=== PATIENT | male | born 1945 | race Caucasian/White ===

== ENCOUNTER 2018-04-05 21:04 | Inpatient (IN) ==
[2018-04-05] MEDS ORDERED: Vancomycin Inj 1,000 MG in Sodium Chlor 0.9% Inj 250 ML IV.SIG ONE (21:23)
[2018-04-05] MEDS ORDERED: Piperacil/Tazo 4.5 GM Premix 4.5 GM/100 ML BAG IV.SIG SCH (21:30)
--- NOTE | 2018-04-05 21:49 | ED ---
HPI General Chief Complaint: Shortness of Breath/Dyspnea Stated Complaint: SOB Time Seen by Provider: 04/05/18 21:07 Source: patient Mode of arrival: EMS Limitations: no limitations History of Present Illness 72-year-old male came to the emergency room for shortness of breath brought by EMS. Patient appears to be in moderate distress. He can get one word out per breath. He tells me that he has been having the symptoms for past 2-3 days. He has progressive shortness of breath, fever with chills and sweating, cough. Today his oxygen saturation was 90% on room air when he reviewed patient does not require oxygen at home. He does have history of COPD but does not have medications. He takes blood pressure medications. He is a smoker. Upon asking he said he was having some chest pain on the left side. His blood pressure was 85/65. No radiation of the pain. No aggravating or relieving symptoms identified for the pain. I also noticed that patient had some swelling on the left side of his face. He says that he got "bitten by a spider ". Related Data Home Medications Medication Instructions Recorded Confirmed lisinopril 40 mg PO DAILY 04/05/18 04/05/18 metoprolol tartrate 150 mg PO BID 04/05/18 04/05/18 Allergies Allergy/AdvReac Type Severity Reaction Status Date / Time bee venom protein (honey bee) Allergy Unknown Edema Verified 04/05/18 21:12 vancomycin Allergy Anaphylaxis Verified 04/05/18 23:33 Review of Systems ROS: all other systems reviewed are negative [facility] Medical History Medical History COPD (chronic obstructive pulmonary disease) (Acute) History of MRSA infection (Acute ~04/06/18) Hypertension (Acute) Surgical History Surgical History Previous back surgery (Acute) Family History Family History Other Family history unobtainable Social History Social History Second Hand Smoke Exposure: Yes Smoking Status: Current every day smoker Tobacco Type: Cigarettes How Often Do You Have a Drink Containing Alcohol: Monthly or less Recent Travel in [facility] within the Last 8 Weeks: No Recent Out of Country Travel within the Last 8 Weeks: No Immunization History Tetanus Immunization: <5 Years Exam Narrative Exam Narrative: GENERAL: Awake, alert, moderate to significant respiratory distress, disheveled SKIN: Focused skin assessment warm/dry. Patient has a circular erythematous papulopustular lesion about 1.5 cm diameter on the left mid forearm ulnar aspect. HEAD: Atraumatic. Normocephalic. EYES: Pupils equal and round. No scleral icterus. No injection or drainage. ENT: No nasal bleeding or discharge. Mucous membranes pink and moist. Left- sided cheek and upper lip swelling NECK: Trachea midline. No JVD. CARDIOVASCULAR: Regular rate and rhythm. No murmur appreciated. RESPIRATORY: Tachypneic, accessory muscles use for respiration, difficult to appreciate lung sounds due to constant grunting GASTROINTESTINAL: Abdomen soft, non-tender, nondistended. Hepatic and splenic margins not palpable. MUSCULOSKELETAL: No obvious deformities. No clubbing. No cyanosis. No edema. NEUROLOGICAL: Awake and alert. No obvious cranial nerve deficits. Motor grossly within normal limits. Normal speech. PSYCHIATRIC: Appropriate mood and affect; insight and judgment normal. Procedures Intubation Time Out Performed: Yes Sedative: etomidate Mg Given: 20 Paralytic: succinylcholine Mg Given: 100 Laryngoscope: Esther ET Tube Size: 7.5 ET Tube Uncuffed: No Tube Secured Depth (cm): 25 Tube Secured Location: lips Tube Placement Confirmation: visualized tube passing through cords, equal breath sounds bilaterally and confirmation by capnometry Patient Tolerated Procedure: well Intubation Complications: none Course Initial Documented Vital Signs Temperature 98.9 F 04/05/18 21:13 Pulse Rate 103 H 04/05/18 21:13 Respiratory Rate 42 H 04/05/18 21:13 Blood Pressure 95/62 L 04/05/18 21:13 Pulse Oximetry 96 04/05/18 21:13 Last Documented Vital Signs Temperature 98.6 F 04/10/18 08:00 Pulse Rate 89 04/10/18 11:00 Respiratory Rate 14 04/10/18 11:42 Blood Pressure 137/82 04/10/18 09:30 Pulse Oximetry 95 04/10/18 11:42 Critical Care Time Critical Care Time: Yes Total Critical Care Time: 60 Attestation: Aggregate critical care time was 60 minutes. Time to perform other separately billable procedures was not included in the critical care time. My time did not include minutes spent treating any other patients simultaneously or on activities that did not directly contribute to the patient's treatment. The services I provided to this patient were to treat and/or prevent clinically significant deterioration that could result in: Sepsis, sepsis protocol, respiratory failure, intubation, ventilator I provided critical care services requiring my management, as noted below: Chart data review, documentation time, medication orders and management, vital sign assessments/reviewing monitor data, ordering and reviewing lab tests, ordering and interpreting/reviewing x-rays and diagnostic studies, care of the patient and discussion of the patient with the admitting physicians. Medical Decision Making MDM Narrative Medical decision making narrative: 9:48 PM patient was started on IV fluid bolus. My suspicion is septic shock. Awaiting for blood test results to come back. I have ordered antibiotic as per sepsis protocol. Patient will require admission. 11:13 PM I was told by the nurse that patient was complaining after receiving vancomycin that he was feeling very hot and everything was itching. Also he started getting more short of breath. Air entry was diminished. Patient started to appear worse and tripoding. I decided to go ahead and intubate him. Please refer to my procedure note regarding the RSI. This was successful and patient is on a ventilator right now saturating 99%. He is on sedation drips. I discussed the case with Dr. Bustos for admission to the ICU and he is accepted it. Patient was given Benadryl. Medical Screen Exam Complete: Yes Emergency Medical Condition: Yes Lab Data Result diagrams: 04/10/18 06:56 04/10/18 06:56 Lab Results 04/05/18 04/05/18 04/05/18 Range/Units 00:45 21:25 21:40 WBC 17.7 H (4.0-11.0) th/mm3 RBC 5.35 (4.50-5.90) mil/mm3 Hgb 15.7 (13.0-17.0) gm/dL Hct 47.7 (39.0-51.0) % MCV 89.1 (80.0-100.0) fL MCH 29.3 (27.0-34.0) pg MCHC 32.8 (32.0-36.0) % RDW 14.3 (11.6-17.2) % Plt Count 197 (150-450) th/mm3 MPV 9.5 (7.0-11.0) fL Prelim Diff (Auto) Slide review pending Neut % (Auto) 87.5 H (16.0-70.0) % Lymph % (Auto) 4.3 L (9.0-44.0) % [place] % (Auto) 8.0 (0.0-8.0) % Eos % (Auto) 0.0 (0.0-4.0) % Baso % (Auto) 0.2 (0.0-2.0) % Neut # (Auto) 15.5 H (1.8-7.7) th/mm3 Lymph # (Auto) 0.8 L (1.0-4.8) th/mm3 [place] # (Auto) 1.4 H (0.0-0.9) th/mm3 Eos # (Auto) 0.0 (0.0-0.4) th/mm3 Baso # (Auto) 0.0 (0.0-0.2) th/mm3 WBC Differential Manual diff final Seg Neuts % (Manual) 75 H (16-70) % Band Neuts % (Manual) 18 H (0-6) % Lymphocytes % (Manual) (9-44) % Monocytes % (Manual) 7 (0-8) % Eosinophils % (Manual) (0-4) % Abs Neuts (Manual) 16.5 H (1.8-7.7) th/mm3 Differential Comment . Toxic Granulation (None) Platelet Estimate Normal (Normal) Platelet Morphology Normal (Normal) RBC Morphology (Normal) Jose Juan Cells 1+ H (None) Puncture Site Left radial Patient Temperature 98.6 O2 Saturation 93 (90-100) % ABG pH 7.37 L (7.380-7.420) ABG pCO2 43 H (38-42) mmHg ABG pO2 83 (61-120) mmHg ABG HCO3 24 (22-26) mmol/L ABG O2 Content 20.7 H (12.0-20.0) Vol % ABG Base Excess -0.2 (-2-2) mmol/L ABG Methemoglobin 0.7 (0-2) % Manuel Test Present Hemoglobin 15.9 (12.0-16.0) G/DL Carboxyhemoglobin 1.7 (0-4) % O2 Delivery Device Nasal cannula Vent Setting 2 Inspired O2 % Critical Value No Sodium (136-145) meq/L Potassium (3.5-5.1) meq/L Chloride (98-107) meq/L Carbon Dioxide (21.0-32.0) meq/L Anion Gap (5-15) meq/L BUN (7-18) mg/dL Creatinine (0.60-1.30) mg/dL Estimated GFR (>89) mL/min POC Glucose (68-110) mg/dl Random Glucose (74-106) mg/dL Lactic Acid (0.4-2.0) mmol/L Calcium (8.5-10.1) mg/dL Phosphorus (2.5-4.9) mg/dL Magnesium (1.5-2.5) mg/dL Total Bilirubin (0.2-1.0) mg/dL AST (15-37) U/L ALT (12-78) U/L Alkaline Phosphatase (45-117) U/L Total Creatine Kinase (39-308) U/L Troponin I (0.02-0.05) ng/mL Total Protein (6.4-8.2) g/dL Albumin (3.4-5.0) g/dL Urine Color Rachel (Yellw/Straw) Urine Clarity Cloudy H (Clear) Urine pH 5.0 (5.0-8.5) Ur Specific [place] 1.027 (1.002-1.035) Urine Protein 100 H (Neg-Trace) mg/dL Urine Glucose (UA) Negative (Negative) mg/dL Urine Ketones Negative (Negative) mg/dL Urine Occult Blood Small H (Negative) Urine Nitrate Negative (Negative) Urine Bilirubin Negative (Negative) Urine Urobilinogen 1.0 (Less than 2) mg/dL Ur Leukocyte Esterase Negative (Negative) Urine RBC 15 H (0-3) /hpf Urine WBC 41 H (0-5) /hpf Urine WBC Clumps Moderate H (None) Ur Squamous Epith Cells 2 (0-5) /hpf Ur Transition Epith Cell <1 (None) /hpf Ur Renal Epithelial Cell <1 (None) /hpf Urine Bacteria Few H (None) /hpf Hyaline Casts 16 (0-3) /lpf Urine Mucus Few H (Occasional) /lpf Micro UA Comment Culture indicated Ur Microscopic Review Not Reportable Urine Culture Comments Culture indicated Nasal Screen MRSA (PCR) (Negative) 04/05/18 04/05/18 04/06/18 Range/Units 21:40 21:40 00:05 WBC (4.0-11.0) th/mm3 RBC (4.50-5.90) mil/mm3 Hgb (13.0-17.0) gm/dL Hct (39.0-51.0) % MCV (80.0-100.0) fL MCH (27.0-34.0) pg MCHC (32.0-36.0) % RDW (11.6-17.2) % Plt Count (150-450) th/mm3 MPV (7.0-11.0) fL Prelim Diff (Auto) Neut % (Auto) (16.0-70.0) % Lymph % (Auto) (9.0-44.0) % [place] % (Auto) (0.0-8.0) % Eos % (Auto) (0.0-4.0) % Baso % (Auto) (0.0-2.0) % Neut # (Auto) (1.8-7.7) th/mm3 Lymph # (Auto) (1.0-4.8) th/mm3 [place] # (Auto) (0.0-0.9) th/mm3 Eos # (Auto) (0.0-0.4) th/mm3 Baso # (Auto) (0.0-0.2) th/mm3 WBC Differential Seg Neuts % (Manual) (16-70) % Band Neuts % (Manual) (0-6) % Lymphocytes % (Manual) (9-44) % Monocytes % (Manual) (0-8) % Eosinophils % (Manual) (0-4) % Abs Neuts (Manual) (1.8-7.7) th/mm3 Differential Comment Toxic Granulation (None) Platelet Estimate (Normal) Platelet Morphology (Normal) RBC Morphology (Normal) [place] Cells (None) Puncture Site Right brachial Patient Temperature 98.6 O2 Saturation 95 (90-100) % ABG pH 7.25 L* (7.380-7.420) ABG pCO2 59 H* (38-42) mmHg ABG pO2 106 (61-120) mmHg ABG HCO3 25 (22-26) mmol/L ABG O2 Content 20.0 (12.0-20.0) Vol % ABG Base Excess -1.1 (-2-2) mmol/L ABG Methemoglobin 0.7 (0-2) % Manuel Test Hemoglobin 14.9 (12.0-16.0) G/DL Carboxyhemoglobin 1.2 (0-4) % O2 Delivery Device Ventilator Vent Setting Inspired O2 50 % Critical Value Yes Sodium 131 L (136-145) meq/L Potassium 3.8 (3.5-5.1) meq/L Chloride 98 (98-107) meq/L Carbon Dioxide 24.5 (21.0-32.0) meq/L Anion Gap 9 (5-15) meq/L BUN 35 H (7-18) mg/dL Creatinine 1.36 H (0.60-1.30) mg/dL Estimated GFR 52 L (>89) mL/min POC Glucose (68-110) mg/dl Random Glucose 173 H (74-106) mg/dL Lactic Acid 1.9 (0.4-2.0) mmol/L Calcium 8.7 (8.5-10.1) mg/dL Phosphorus (2.5-4.9) mg/dL Magnesium 1.6 (1.5-2.5) mg/dL Total Bilirubin 1.0 (0.2-1.0) mg/dL AST 35 (15-37) U/L ALT 21 (12-78) U/L Alkaline Phosphatase 63 (45-117) U/L Total Creatine Kinase (39-308) U/L Troponin I Less than 0.02 L (0.02-0.05) ng/mL Total Protein 7.3 (6.4-8.2) g/dL Albumin 3.1 L (3.4-5.0) g/dL Urine Color (Yellw/Straw) Urine Clarity (Clear) Urine pH (5.0-8.5) Ur Specific [place] (1.002-1.035) Urine Protein (Neg-Trace) mg/dL Urine Glucose (UA) (Negative) mg/dL Urine Ketones (Negative) mg/dL Urine Occult Blood (Negative) Urine Nitrate (Negative) Urine Bilirubin (Negative) Urine Urobilinogen (Less than 2) mg/dL Ur Leukocyte Esterase (Negative) Urine RBC (0-3) /hpf Urine WBC (0-5) /hpf Urine WBC Clumps (None) Ur Squamous Epith Cells (0-5) /hpf Ur Transition Epith Cell (None) /hpf Ur Renal Epithelial Cell (None) /hpf Urine Bacteria (None) /hpf Hyaline Casts (0-3) /lpf Urine Mucus (Occasional) /lpf Micro UA Comment Ur Microscopic Review Urine Culture Comments Nasal Screen MRSA (PCR) (Negative) 04/06/18 04/06/18 04/06/18 Range/Units 02:00 06:27 08:35 WBC 6.8 D (4.0-11.0) th/mm3 RBC 4.95 (4.50-5.90) mil/mm3 Hgb 14.9 (13.0-17.0) gm/dL Hct 45.2 (39.0-51.0) % MCV 91.1 (80.0-100.0) fL MCH 30.2 (27.0-34.0) pg MCHC 33.1 (32.0-36.0) % RDW 14.4 (11.6-17.2) % Plt Count 134 L D (150-450) th/mm3 MPV 10.2 (7.0-11.0) fL Prelim Diff (Auto) Manual diff required Neut % (Auto) (16.0-70.0) % Lymph % (Auto) (9.0-44.0) % [place] % (Auto) (0.0-8.0) % Eos % (Auto) (0.0-4.0) % Baso % (Auto) (0.0-2.0) % Neut # (Auto) (1.8-7.7) th/mm3 Lymph # (Auto) (1.0-4.8) th/mm3 [place] # (Auto) (0.0-0.9) th/mm3 Eos # (Auto) (0.0-0.4) th/mm3 Baso # (Auto) (0.0-0.2) th/mm3 WBC Differential Manual diff final Seg Neuts % (Manual) 62 (16-70) % Band Neuts % (Manual) 30 H (0-6) % Lymphocytes % (Manual) 3 L (9-44) % Monocytes % (Manual) 4 (0-8) % Eosinophils % (Manual) 1 (0-4) % Abs Neuts (Manual) 6.3 (1.8-7.7) th/mm3 Differential Comment . Toxic Granulation 2+ H (None) Platelet Estimate Low L (Normal) Platelet Morphology Enlarged H (Normal) RBC Morphology Normal (Normal) [place] Cells (None) Puncture Site Patient Temperature O2 Saturation (90-100) % ABG pH (7.380-7.420) ABG pCO2 (38-42) mmHg ABG pO2 (61-120) mmHg ABG HCO3 (22-26) mmol/L ABG O2 Content (12.0-20.0) Vol % ABG Base Excess (-2-2) mmol/L ABG Methemoglobin (0-2) % Manuel Test Hemoglobin (12.0-16.0) G/DL Carboxyhemoglobin (0-4) % O2 Delivery Device Vent Setting Inspired O2 % Critical Value Sodium (136-145) meq/L Potassium (3.5-5.1) meq/L Chloride (98-107) meq/L Carbon Dioxide (21.0-32.0) meq/L Anion Gap (5-15) meq/L BUN (7-18) mg/dL Creatinine (0.60-1.30) mg/dL Estimated GFR (>89) mL/min POC Glucose 127 H (68-110) mg/dl Random Glucose (74-106) mg/dL Lactic Acid (0.4-2.0) mmol/L Calcium (8.5-10.1) mg/dL Phosphorus (2.5-4.9) mg/dL Magnesium (1.5-2.5) mg/dL Total Bilirubin (0.2-1.0) mg/dL AST (15-37) U/L ALT (12-78) U/L Alkaline Phosphatase (45-117) U/L Total Creatine Kinase (39-308) U/L Troponin I (0.02-0.05) ng/mL Total Protein (6.4-8.2) g/dL Albumin (3.4-5.0) g/dL Urine Color (Yellw/Straw) Urine Clarity (Clear) Urine pH (5.0-8.5) Ur Specific [place] (1.002-1.035) Urine Protein (Neg-Trace) mg/dL Urine Glucose (UA) (Negative) mg/dL Urine Ketones (Negative) mg/dL Urine Occult Blood (Negative) Urine Nitrate (Negative) Urine Bilirubin (Negative) Urine Urobilinogen (Less than 2) mg/dL Ur Leukocyte Esterase (Negative) Urine RBC (0-3) /hpf Urine WBC (0-5) /hpf Urine WBC Clumps (None) Ur Squamous Epith Cells (0-5) /hpf Ur Transition Epith Cell (None) /hpf Ur Renal Epithelial Cell (None) /hpf Urine Bacteria (None) /hpf Hyaline Casts (0-3) /lpf Urine Mucus (Occasional) /lpf Micro UA Comment Ur Microscopic Review Urine Culture Comments Nasal Screen MRSA (PCR) [place] detected (Negative) 04/06/18 04/06/18 04/06/18 Range/Units 08:35 11:05 12:21 WBC (4.0-11.0) th/mm3 RBC (4.50-5.90) mil/mm3 Hgb (13.0-17.0) gm/dL Hct (39.0-51.0) % MCV (80.0-100.0) fL MCH (27.0-34.0) pg MCHC (32.0-36.0) % RDW (11.6-17.2) % Plt Count (150-450) th/mm3 MPV (7.0-11.0) fL Prelim Diff (Auto) Neut % (Auto) (16.0-70.0) % Lymph % (Auto) (9.0-44.0) % [place] % (Auto) (0.0-8.0) % Eos % (Auto) (0.0-4.0) % Baso % (Auto) (0.0-2.0) % Neut # (Auto) (1.8-7.7) th/mm3 Lymph # (Auto) (1.0-4.8) th/mm3 [place] # (Auto) (0.0-0.9) th/mm3 Eos # (Auto) (0.0-0.4) th/mm3 Baso # (Auto) (0.0-0.2) th/mm3 WBC Differential Seg Neuts % (Manual) (16-70) % Band Neuts % (Manual) (0-6) % Lymphocytes % (Manual) (9-44) % Monocytes % (Manual) (0-8) % Eosinophils % (Manual) (0-4) % Abs Neuts (Manual) (1.8-7.7) th/mm3 Differential Comment Toxic Granulation (None) Platelet Estimate (Normal) Platelet Morphology (Normal) RBC Morphology (Normal) [place] Cells (None) Puncture Site Left radial Patient Temperature 98.6 O2 Saturation 96 (90-100) % ABG pH 7.36 L (7.380-7.420) ABG pCO2 38 (38-42) mmHg ABG pO2 120 (61-120) mmHg ABG HCO3 21 L (22-26) mmol/L ABG O2 Content 19.6 (12.0-20.0) Vol % ABG Base Excess -3.9 L (-2-2) mmol/L ABG Methemoglobin 1.6 (0-2) % Manuel Test Present Hemoglobin 14.4 (12.0-16.0) G/DL Carboxyhemoglobin 0.8 (0-4) % O2 Delivery Device Ventilator Vent Setting [id number] Inspired O2 40 % Critical Value No Sodium 137 (136-145) meq/L Potassium 3.8 (3.5-5.1) meq/L Chloride 105 (98-107) meq/L Carbon Dioxide 21.9 (21.0-32.0) meq/L Anion Gap 10 (5-15) meq/L BUN 39 H (7-18) mg/dL Creatinine 1.15 (0.60-1.30) mg/dL Estimated GFR 63 L (>89) mL/min POC Glucose 144 H (68-110) mg/dl Random Glucose 162 H (74-106) mg/dL Lactic Acid (0.4-2.0) mmol/L Calcium 8.3 L (8.5-10.1) mg/dL Phosphorus (2.5-4.9) mg/dL Magnesium (1.5-2.5) mg/dL Total Bilirubin 1.0 (0.2-1.0) mg/dL AST 22 (15-37) U/L ALT 16 (12-78) U/L Alkaline Phosphatase 45 (45-117) U/L Total Creatine Kinase (39-308) U/L Troponin I (0.02-0.05) ng/mL Total Protein 6.2 L D (6.4-8.2) g/dL Albumin 2.4 L D (3.4-5.0) g/dL Urine Color (Yellw/Straw) Urine Clarity (Clear) Urine pH (5.0-8.5) Ur Specific [place] (1.002-1.035) Urine Protein (Neg-Trace) mg/dL Urine Glucose (UA) (Negative) mg/dL Urine Ketones (Negative) mg/dL Urine Occult Blood (Negative) Urine Nitrate (Negative) Urine Bilirubin (Negative) Urine Urobilinogen (Less than 2) mg/dL Ur Leukocyte Esterase (Negative) Urine RBC (0-3) /hpf Urine WBC (0-5) /hpf Urine WBC Clumps (None) Ur Squamous Epith Cells (0-5) /hpf Ur Transition Epith Cell (None) /hpf Ur Renal Epithelial Cell (None) /hpf Urine Bacteria (None) /hpf Hyaline Casts (0-3) /lpf Urine Mucus (Occasional) /lpf Micro UA Comment Ur Microscopic Review Urine Culture Comments Nasal Screen MRSA (PCR) (Negative) 04/06/18 04/06/18 04/07/18 Range/Units 16:48 23:56 05:07 WBC (4.0-11.0) th/mm3 RBC (4.50-5.90) mil/mm3 Hgb (13.0-17.0) gm/dL Hct (39.0-51.0) % MCV (80.0-100.0) fL MCH (27.0-34.0) pg MCHC (32.0-36.0) % RDW (11.6-17.2) % Plt Count (150-450) th/mm3 MPV (7.0-11.0) fL Prelim Diff (Auto) Neut % (Auto) (16.0-70.0) % Lymph % (Auto) (9.0-44.0) % [place] % (Auto) (0.0-8.0) % Eos % (Auto) (0.0-4.0) % Baso % (Auto) (0.0-2.0) % Neut # (Auto) (1.8-7.7) th/mm3 Lymph # (Auto) (1.0-4.8) th/mm3 [place] # (Auto) (0.0-0.9) th/mm3 Eos # (Auto) (0.0-0.4) th/mm3 Baso # (Auto) (0.0-0.2) th/mm3 WBC Differential Seg Neuts % (Manual) (16-70) % Band Neuts % (Manual) (0-6) % Lymphocytes % (Manual) (9-44) % Monocytes % (Manual) (0-8) % Eosinophils % (Manual) (0-4) % Abs Neuts (Manual) (1.8-7.7) th/mm3 Differential Comment Toxic Granulation (None) Platelet Estimate (Normal) Platelet Morphology (Normal) RBC Morphology (Normal) [place] Cells (None) Puncture Site Patient Temperature O2 Saturation (90-100) % ABG pH (7.380-7.420) ABG pCO2 (38-42) mmHg ABG pO2 (61-120) mmHg ABG HCO3 (22-26) mmol/L ABG O2 Content (12.0-20.0) Vol % ABG Base Excess (-2-2) mmol/L ABG Methemoglobin (0-2) % Manuel Test Hemoglobin (12.0-16.0) G/DL Carboxyhemoglobin (0-4) % O2 Delivery Device Vent Setting Inspired O2 % Critical Value Sodium (136-145) meq/L Potassium (3.5-5.1) meq/L Chloride (98-107) meq/L Carbon Dioxide (21.0-32.0) meq/L Anion Gap (5-15) meq/L BUN (7-18) mg/dL Creatinine (0.60-1.30) mg/dL Estimated GFR (>89) mL/min POC Glucose 178 H 130 H 133 H (68-110) mg/dl Random Glucose (74-106) mg/dL Lactic Acid (0.4-2.0) mmol/L Calcium (8.5-10.1) mg/dL Phosphorus (2.5-4.9) mg/dL Magnesium (1.5-2.5) mg/dL Total Bilirubin (0.2-1.0) mg/dL AST (15-37) U/L ALT (12-78) U/L Alkaline Phosphatase (45-117) U/L Total Creatine Kinase (39-308) U/L Troponin I (0.02-0.05) ng/mL Total Protein (6.4-8.2) g/dL Albumin (3.4-5.0) g/dL Urine Color (Yellw/Straw) Urine Clarity (Clear) Urine pH (5.0-8.5) Ur Specific [place] (1.002-1.035) Urine Protein (Neg-Trace) mg/dL Urine Glucose (UA) (Negative) mg/dL Urine Ketones (Negative) mg/dL Urine Occult Blood (Negative) Urine Nitrate (Negative) Urine Bilirubin (Negative) Urine Urobilinogen (Less than 2) mg/dL Ur Leukocyte Esterase (Negative) Urine RBC (0-3) /hpf Urine WBC (0-5) /hpf Urine WBC Clumps (None) Ur Squamous Epith Cells (0-5) /hpf Ur Transition Epith Cell (None) /hpf Ur Renal Epithelial Cell (None) /hpf Urine Bacteria (None) /hpf Hyaline Casts (0-3) /lpf Urine Mucus (Occasional) /lpf Micro UA Comment Ur Microscopic Review Urine Culture Comments Nasal Screen MRSA (PCR) (Negative) 04/07/18 04/07/18 04/07/18 Range/Units 07:34 07:34 12:38 WBC 9.4 (4.0-11.0) th/mm3 RBC 4.14 L (4.50-5.90) mil/mm3 Hgb 12.5 L D (13.0-17.0) gm/dL Hct 37.2 L (39.0-51.0) % MCV 90.0 (80.0-100.0) fL MCH 30.3 (27.0-34.0) pg MCHC 33.7 (32.0-36.0) % RDW 14.7 (11.6-17.2) % Plt Count 149 L (150-450) th/mm3 MPV 10.2 (7.0-11.0) fL Prelim Diff (Auto) Slide review pending Neut % (Auto) 89.9 H (16.0-70.0) % Lymph % (Auto) 5.0 L (9.0-44.0) % [place] % (Auto) 5.0 (0.0-8.0) % Eos % (Auto) 0.0 (0.0-4.0) % Baso % (Auto) 0.1 (0.0-2.0) % Neut # (Auto) 8.4 H (1.8-7.7) th/mm3 Lymph # (Auto) 0.5 L (1.0-4.8) th/mm3 [place] # (Auto) 0.5 (0.0-0.9) th/mm3 Eos # (Auto) 0.0 (0.0-0.4) th/mm3 Baso # (Auto) 0.0 (0.0-0.2) th/mm3 WBC Differential Manual diff final Seg Neuts % (Manual) 71 H (16-70) % Band Neuts % (Manual) 19 H (0-6) % Lymphocytes % (Manual) 4 L (9-44) % Monocytes % (Manual) 6 (0-8) % Eosinophils % (Manual) (0-4) % Abs Neuts (Manual) 8.5 H (1.8-7.7) th/mm3 Differential Comment . Toxic Granulation (None) Platelet Estimate Low L (Normal) Platelet Morphology Normal (Normal) RBC Morphology Normal (Normal) [place] Cells (None) Puncture Site Patient Temperature O2 Saturation (90-100) % ABG pH (7.380-7.420) ABG pCO2 (38-42) mmHg ABG pO2 (61-120) mmHg ABG HCO3 (22-26) mmol/L ABG O2 Content (12.0-20.0) Vol % ABG Base Excess (-2-2) mmol/L ABG Methemoglobin (0-2) % Manuel Test Hemoglobin (12.0-16.0) G/DL Carboxyhemoglobin (0-4) % O2 Delivery Device Vent Setting Inspired O2 % Critical Value Sodium 139 (136-145) meq/L Potassium 3.6 (3.5-5.1) meq/L Chloride 107 (98-107) meq/L Carbon Dioxide 25.0 (21.0-32.0) meq/L Anion Gap 7 (5-15) meq/L BUN 48 H (7-18) mg/dL Creatinine 1.00 (0.60-1.30) mg/dL Estimated GFR 74 L (>89) mL/min POC Glucose 109 (68-110) mg/dl Random Glucose 138 H (74-106) mg/dL Lactic Acid (0.4-2.0) mmol/L Calcium 8.6 (8.5-10.1) mg/dL Phosphorus 1.9 L (2.5-4.9) mg/dL Magnesium 2.0 (1.5-2.5) mg/dL Total Bilirubin 0.5 (0.2-1.0) mg/dL AST 21 (15-37) U/L ALT 14 (12-78) U/L Alkaline Phosphatase 40 L (45-117) U/L Total Creatine Kinase (39-308) U/L Troponin I (0.02-0.05) ng/mL Total Protein 5.9 L (6.4-8.2) g/dL Albumin 2.2 L (3.4-5.0) g/dL Urine Color (Yellw/Straw) Urine Clarity (Clear) Urine pH (5.0-8.5) Ur Specific [place] (1.002-1.035) Urine Protein (Neg-Trace) mg/dL Urine Glucose (UA) (Negative) mg/dL Urine Ketones (Negative) mg/dL Urine Occult Blood (Negative) Urine Nitrate (Negative) Urine Bilirubin (Negative) Urine Urobilinogen (Less than 2) mg/dL Ur Leukocyte Esterase (Negative) Urine RBC (0-3) /hpf Urine WBC (0-5) /hpf Urine WBC Clumps (None) Ur Squamous Epith Cells (0-5) /hpf Ur Transition Epith Cell (None) /hpf Ur Renal Epithelial Cell (None) /hpf Urine Bacteria (None) /hpf Hyaline Casts (0-3) /lpf Urine Mucus (Occasional) /lpf Micro UA Comment Ur Microscopic Review Urine Culture Comments Nasal Screen MRSA (PCR) (Negative) 04/07/18 04/07/18 04/08/18 Range/Units 17:59 23:13 05:05 WBC (4.0-11.0) th/mm3 RBC (4.50-5.90) mil/mm3 Hgb (13.0-17.0) gm/dL Hct (39.0-51.0) % MCV (80.0-100.0) fL MCH (27.0-34.0) pg MCHC (32.0-36.0) % RDW (11.6-17.2) % Plt Count (150-450) th/mm3 MPV (7.0-11.0) fL Prelim Diff (Auto) Neut % (Auto) (16.0-70.0) % Lymph % (Auto) (9.0-44.0) % [place] % (Auto) (0.0-8.0) % Eos % (Auto) (0.0-4.0) % Baso % (Auto) (0.0-2.0) % Neut # (Auto) (1.8-7.7) th/mm3 Lymph # (Auto) (1.0-4.8) th/mm3 [place] # (Auto) (0.0-0.9) th/mm3 Eos # (Auto) (0.0-0.4) th/mm3 Baso # (Auto) (0.0-0.2) th/mm3 WBC Differential Seg Neuts % (Manual) (16-70) % Band Neuts % (Manual) (0-6) % Lymphocytes % (Manual) (9-44) % Monocytes % (Manual) (0-8) % Eosinophils % (Manual) (0-4) % Abs Neuts (Manual) (1.8-7.7) th/mm3 Differential Comment Toxic Granulation (None) Platelet Estimate (Normal) Platelet Morphology (Normal) RBC Morphology (Normal) [place] Cells (None) Puncture Site Patient Temperature O2 Saturation (90-100) % ABG pH (7.380-7.420) ABG pCO2 (38-42) mmHg ABG pO2 (61-120) mmHg ABG HCO3 (22-26) mmol/L ABG O2 Content (12.0-20.0) Vol % ABG Base Excess (-2-2) mmol/L ABG Methemoglobin (0-2) % Manuel Test Hemoglobin (12.0-16.0) G/DL Carboxyhemoglobin (0-4) % O2 Delivery Device Vent Setting Inspired O2 % Critical Value Sodium (136-145) meq/L Potassium (3.5-5.1) meq/L Chloride (98-107) meq/L Carbon Dioxide (21.0-32.0) meq/L Anion Gap (5-15) meq/L BUN (7-18) mg/dL Creatinine (0.60-1.30) mg/dL Estimated GFR (>89) mL/min POC Glucose 128 H 126 H 141 H (68-110) mg/dl Random Glucose (74-106) mg/dL Lactic Acid (0.4-2.0) mmol/L Calcium (8.5-10.1) mg/dL Phosphorus (2.5-4.9) mg/dL Magnesium (1.5-2.5) mg/dL Total Bilirubin (0.2-1.0) mg/dL AST (15-37) U/L ALT (12-78) U/L Alkaline Phosphatase (45-117) U/L Total Creatine Kinase (39-308) U/L Troponin I (0.02-0.05) ng/mL Total Protein (6.4-8.2) g/dL Albumin (3.4-5.0) g/dL Urine Color (Yellw/Straw) Urine Clarity (Clear) Urine pH (5.0-8.5) Ur Specific [place] (1.002-1.035) Urine Protein (Neg-Trace) mg/dL Urine Glucose (UA) (Negative) mg/dL Urine Ketones (Negative) mg/dL Urine Occult Blood (Negative) Urine Nitrate (Negative) Urine Bilirubin (Negative) Urine Urobilinogen (Less than 2) mg/dL Ur Leukocyte Esterase (Negative) Urine RBC (0-3) /hpf Urine WBC (0-5) /hpf Urine WBC Clumps (None) Ur Squamous Epith Cells (0-5) /hpf Ur Transition Epith Cell (None) /hpf Ur Renal Epithelial Cell (None) /hpf Urine Bacteria (None) /hpf Hyaline Casts (0-3) /lpf Urine Mucus (Occasional) /lpf Micro UA Comment Ur Microscopic Review Urine Culture Comments Nasal Screen MRSA (PCR) (Negative) 04/08/18 04/08/18 04/09/18 Range/Units 13:11 23:03 06:06 WBC (4.0-11.0) th/mm3 RBC (4.50-5.90) mil/mm3 Hgb (13.0-17.0) gm/dL Hct (39.0-51.0) % MCV (80.0-100.0) fL MCH (27.0-34.0) pg MCHC (32.0-36.0) % RDW (11.6-17.2) % Plt Count (150-450) th/mm3 MPV (7.0-11.0) fL Prelim Diff (Auto) Neut % (Auto) (16.0-70.0) % Lymph % (Auto) (9.0-44.0) % [place] % (Auto) (0.0-8.0) % Eos % (Auto) (0.0-4.0) % Baso % (Auto) (0.0-2.0) % Neut # (Auto) (1.8-7.7) th/mm3 Lymph # (Auto) (1.0-4.8) th/mm3 [place] # (Auto) (0.0-0.9) th/mm3 Eos # (Auto) (0.0-0.4) th/mm3 Baso # (Auto) (0.0-0.2) th/mm3 WBC Differential Seg Neuts % (Manual) (16-70) % Band Neuts % (Manual) (0-6) % Lymphocytes % (Manual) (9-44) % Monocytes % (Manual) (0-8) % Eosinophils % (Manual) (0-4) % Abs Neuts (Manual) (1.8-7.7) th/mm3 Differential Comment Toxic Granulation (None) Platelet Estimate (Normal) Platelet Morphology (Normal) RBC Morphology (Normal) [place] Cells (None) Puncture Site Patient Temperature O2 Saturation (90-100) % ABG pH (7.380-7.420) ABG pCO2 (38-42) mmHg ABG pO2 (61-120) mmHg ABG HCO3 (22-26) mmol/L ABG O2 Content (12.0-20.0) Vol % ABG Base Excess (-2-2) mmol/L ABG Methemoglobin (0-2) % Manuel Test Hemoglobin (12.0-16.0) G/DL Carboxyhemoglobin (0-4) % O2 Delivery Device Vent Setting Inspired O2 % Critical Value Sodium (136-145) meq/L Potassium (3.5-5.1) meq/L Chloride (98-107) meq/L Carbon Dioxide (21.0-32.0) meq/L Anion Gap (5-15) meq/L BUN (7-18) mg/dL Creatinine (0.60-1.30) mg/dL Estimated GFR (>89) mL/min POC Glucose 148 H 150 H 179 H (68-110) mg/dl Random Glucose (74-106) mg/dL Lactic Acid (0.4-2.0) mmol/L Calcium (8.5-10.1) mg/dL Phosphorus (2.5-4.9) mg/dL Magnesium (1.5-2.5) mg/dL Total Bilirubin (0.2-1.0) mg/dL AST (15-37) U/L ALT (12-78) U/L Alkaline Phosphatase (45-117) U/L Total Creatine Kinase (39-308) U/L Troponin I (0.02-0.05) ng/mL Total Protein (6.4-8.2) g/dL Albumin (3.4-5.0) g/dL Urine Color (Yellw/Straw) Urine Clarity (Clear) Urine pH (5.0-8.5) Ur Specific [place] (1.002-1.035) Urine Protein (Neg-Trace) mg/dL Urine Glucose (UA) (Negative) mg/dL Urine Ketones (Negative) mg/dL Urine Occult Blood (Negative) Urine Nitrate (Negative) Urine Bilirubin (Negative) Urine Urobilinogen (Less than 2) mg/dL Ur Leukocyte Esterase (Negative) Urine RBC (0-3) /hpf Urine WBC (0-5) /hpf Urine WBC Clumps (None) Ur Squamous Epith Cells (0-5) /hpf Ur Transition Epith Cell (None) /hpf Ur Renal Epithelial Cell (None) /hpf Urine Bacteria (None) /hpf Hyaline Casts (0-3) /lpf Urine Mucus (Occasional) /lpf Micro UA Comment Ur Microscopic Review Urine Culture Comments Nasal Screen MRSA (PCR) (Negative) 04/09/18 04/09/18 04/09/18 Range/Units 07:04 07:54 11:14 WBC 14.9 H (4.0-11.0) th/mm3 RBC 3.93 L (4.50-5.90) mil/mm3 Hgb 12.0 L (13.0-17.0) gm/dL Hct 35.2 L (39.0-51.0) % MCV 89.4 (80.0-100.0) fL MCH 30.5 (27.0-34.0) pg MCHC 34.1 (32.0-36.0) % RDW 14.9 (11.6-17.2) % Plt Count 164 (150-450) th/mm3 MPV 10.1 (7.0-11.0) fL Prelim Diff (Auto) Neut % (Auto) (16.0-70.0) % Lymph % (Auto) (9.0-44.0) % [place] % (Auto) (0.0-8.0) % Eos % (Auto) (0.0-4.0) % Baso % (Auto) (0.0-2.0) % Neut # (Auto) (1.8-7.7) th/mm3 Lymph # (Auto) (1.0-4.8) th/mm3 [place] # (Auto) (0.0-0.9) th/mm3 Eos # (Auto) (0.0-0.4) th/mm3 Baso # (Auto) (0.0-0.2) th/mm3 WBC Differential Seg Neuts % (Manual) (16-70) % Band Neuts % (Manual) (0-6) % Lymphocytes % (Manual) (9-44) % Monocytes % (Manual) (0-8) % Eosinophils % (Manual) (0-4) % Abs Neuts (Manual) (1.8-7.7) th/mm3 Differential Comment Toxic Granulation (None) Platelet Estimate (Normal) Platelet Morphology (Normal) RBC Morphology (Normal) [place] Cells (None) Puncture Site Patient Temperature O2 Saturation (90-100) % ABG pH (7.380-7.420) ABG pCO2 (38-42) mmHg ABG pO2 (61-120) mmHg ABG HCO3 (22-26) mmol/L ABG O2 Content (12.0-20.0) Vol % ABG Base Excess (-2-2) mmol/L ABG Methemoglobin (0-2) % Manuel Test Hemoglobin (12.0-16.0) G/DL Carboxyhemoglobin (0-4) % O2 Delivery Device Vent Setting Inspired O2 % Critical Value Sodium 146 H (136-145) meq/L Potassium 3.4 L (3.5-5.1) meq/L Chloride 111 H (98-107) meq/L Carbon Dioxide 30.1 (21.0-32.0) meq/L Anion Gap 5 (5-15) meq/L BUN 36 H (7-18) mg/dL Creatinine 0.66 (0.60-1.30) mg/dL Estimated GFR Greater than 89 (>89) mL/min POC Glucose 176 H (68-110) mg/dl Random Glucose 185 H (74-106) mg/dL Lactic Acid (0.4-2.0) mmol/L Calcium 9.0 (8.5-10.1) mg/dL Phosphorus 1.5 L (2.5-4.9) mg/dL Magnesium 2.2 (1.5-2.5) mg/dL Total Bilirubin (0.2-1.0) mg/dL AST (15-37) U/L ALT (12-78) U/L Alkaline Phosphatase (45-117) U/L Total Creatine Kinase 112 (39-308) U/L Troponin I (0.02-0.05) ng/mL Total Protein (6.4-8.2) g/dL Albumin (3.4-5.0) g/dL Urine Color (Yellw/Straw) Urine Clarity (Clear) Urine pH (5.0-8.5) Ur Specific [place] (1.002-1.035) Urine Protein (Neg-Trace) mg/dL Urine Glucose (UA) (Negative) mg/dL Urine Ketones (Negative) mg/dL Urine Occult Blood (Negative) Urine Nitrate (Negative) Urine Bilirubin (Negative) Urine Urobilinogen (Less than 2) mg/dL Ur Leukocyte Esterase (Negative) Urine RBC (0-3) /hpf Urine WBC (0-5) /hpf Urine WBC Clumps (None) Ur Squamous Epith Cells (0-5) /hpf Ur Transition Epith Cell (None) /hpf Ur Renal Epithelial Cell (None) /hpf Urine Bacteria (None) /hpf Hyaline Casts (0-3) /lpf Urine Mucus (Occasional) /lpf Micro UA Comment Ur Microscopic Review Urine Culture Comments Nasal Screen MRSA (PCR) (Negative) 04/09/18 04/09/18 04/10/18 Range/Units 17:08 23:38 05:28 WBC (4.0-11.0) th/mm3 RBC (4.50-5.90) mil/mm3 Hgb (13.0-17.0) gm/dL Hct (39.0-51.0) % MCV (80.0-100.0) fL MCH (27.0-34.0) pg MCHC (32.0-36.0) % RDW (11.6-17.2) % Plt Count (150-450) th/mm3 MPV (7.0-11.0) fL Prelim Diff (Auto) Neut % (Auto) (16.0-70.0) % Lymph % (Auto) (9.0-44.0) % [place] % (Auto) (0.0-8.0) % Eos % (Auto) (0.0-4.0) % Baso % (Auto) (0.0-2.0) % Neut # (Auto) (1.8-7.7) th/mm3 Lymph # (Auto) (1.0-4.8) th/mm3 [place] # (Auto) (0.0-0.9) th/mm3 Eos # (Auto) (0.0-0.4) th/mm3 Baso # (Auto) (0.0-0.2) th/mm3 WBC Differential Seg Neuts % (Manual) (16-70) % Band Neuts % (Manual) (0-6) % Lymphocytes % (Manual) (9-44) % Monocytes % (Manual) (0-8) % Eosinophils % (Manual) (0-4) % Abs Neuts (Manual) (1.8-7.7) th/mm3 Differential Comment Toxic Granulation (None) Platelet Estimate (Normal) Platelet Morphology (Normal) RBC Morphology (Normal) [place] Cells (None) Puncture Site Patient Temperature O2 Saturation (90-100) % ABG pH (7.380-7.420) ABG pCO2 (38-42) mmHg ABG pO2 (61-120) mmHg ABG HCO3 (22-26) mmol/L ABG O2 Content (12.0-20.0) Vol % ABG Base Excess (-2-2) mmol/L ABG Methemoglobin (0-2) % Manuel Test Hemoglobin (12.0-16.0) G/DL Carboxyhemoglobin (0-4) % O2 Delivery Device Vent Setting Inspired O2 % Critical Value Sodium (136-145) meq/L Potassium (3.5-5.1) meq/L Chloride (98-107) meq/L Carbon Dioxide (21.0-32.0) meq/L Anion Gap (5-15) meq/L BUN (7-18) mg/dL Creatinine (0.60-1.30) mg/dL Estimated GFR (>89) mL/min POC Glucose 180 H 144 H 151 H (68-110) mg/dl Random Glucose (74-106) mg/dL Lactic Acid (0.4-2.0) mmol/L Calcium (8.5-10.1) mg/dL Phosphorus (2.5-4.9) mg/dL Magnesium (1.5-2.5) mg/dL Total Bilirubin (0.2-1.0) mg/dL AST (15-37) U/L ALT (12-78) U/L Alkaline Phosphatase (45-117) U/L Total Creatine Kinase (39-308) U/L Troponin I (0.02-0.05) ng/mL Total Protein (6.4-8.2) g/dL Albumin (3.4-5.0) g/dL Urine Color (Yellw/Straw) Urine Clarity (Clear) Urine pH (5.0-8.5) Ur Specific [place] (1.002-1.035) Urine Protein (Neg-Trace) mg/dL Urine Glucose (UA) (Negative) mg/dL Urine Ketones (Negative) mg/dL Urine Occult Blood (Negative) Urine Nitrate (Negative) Urine Bilirubin (Negative) Urine Urobilinogen (Less than 2) mg/dL Ur Leukocyte Esterase (Negative) Urine RBC (0-3) /hpf Urine WBC (0-5) /hpf Urine WBC Clumps (None) Ur Squamous Epith Cells (0-5) /hpf Ur Transition Epith Cell (None) /hpf Ur Renal Epithelial Cell (None) /hpf Urine Bacteria (None) /hpf Hyaline Casts (0-3) /lpf Urine Mucus (Occasional) /lpf Micro UA Comment Ur Microscopic Review Urine Culture Comments Nasal Screen MRSA (PCR) (Negative) 04/10/18 04/10/18 04/10/18 Range/Units 06:56 06:56 09:02 WBC 15.6 H (4.0-11.0) th/mm3 RBC 4.25 L (4.50-5.90) mil/mm3 Hgb 12.7 L (13.0-17.0) gm/dL Hct 37.8 L (39.0-51.0) % MCV 88.8 (80.0-100.0) fL MCH 29.7 (27.0-34.0) pg MCHC 33.5 (32.0-36.0) % RDW 14.8 (11.6-17.2) % Plt Count 186 (150-450) th/mm3 MPV 10.2 (7.0-11.0) fL Prelim Diff (Auto) Neut % (Auto) (16.0-70.0) % Lymph % (Auto) (9.0-44.0) % [place] % (Auto) (0.0-8.0) % Eos % (Auto) (0.0-4.0) % Baso % (Auto) (0.0-2.0) % Neut # (Auto) (1.8-7.7) th/mm3 Lymph # (Auto) (1.0-4.8) th/mm3 [place] # (Auto) (0.0-0.9) th/mm3 Eos # (Auto) (0.0-0.4) th/mm3 Baso # (Auto) (0.0-0.2) th/mm3 WBC Differential Seg Neuts % (Manual) (16-70) % Band Neuts % (Manual) (0-6) % Lymphocytes % (Manual) (9-44) % Monocytes % (Manual) (0-8) % Eosinophils % (Manual) (0-4) % Abs Neuts (Manual) (1.8-7.7) th/mm3 Differential Comment Toxic Granulation (None) Platelet Estimate (Normal) Platelet Morphology (Normal) RBC Morphology (Normal) [place] Cells (None) Puncture Site Right radial Patient Temperature 37 O2 Saturation 97 (90-100) % ABG pH 7.54 H* (7.380-7.420) ABG pCO2 40 (38-42) mmHg ABG pO2 178 H (61-120) mmHg ABG HCO3 34 H (22-26) mmol/L ABG O2 Content 18.8 (12.0-20.0) Vol % ABG Base Excess 10.6 H (-2-2) mmol/L ABG Methemoglobin 1.6 (0-2) % Manuel Test Present Hemoglobin 13.6 (12.0-16.0) G/DL Carboxyhemoglobin 1.1 (0-4) % O2 Delivery Device Ventilator Vent Setting [id number] Inspired O2 35 % Critical Value Yes Sodium 147 H (136-145) meq/L Potassium 3.4 L (3.5-5.1) meq/L Chloride 110 H (98-107) meq/L Carbon Dioxide 34.9 H (21.0-32.0) meq/L Anion Gap 2 L (5-15) meq/L BUN 42 H (7-18) mg/dL Creatinine 0.67 (0.60-1.30) mg/dL Estimated GFR Greater than 89 (>89) mL/min POC Glucose (68-110) mg/dl Random Glucose 151 H (74-106) mg/dL Lactic Acid (0.4-2.0) mmol/L Calcium 9.0 (8.5-10.1) mg/dL Phosphorus 1.5 L (2.5-4.9) mg/dL Magnesium 2.3 (1.5-2.5) mg/dL Total Bilirubin (0.2-1.0) mg/dL AST (15-37) U/L ALT (12-78) U/L Alkaline Phosphatase (45-117) U/L Total Creatine Kinase (39-308) U/L Troponin I (0.02-0.05) ng/mL Total Protein (6.4-8.2) g/dL Albumin (3.4-5.0) g/dL Urine Color (Yellw/Straw) Urine Clarity (Clear) Urine pH (5.0-8.5) Ur Specific [place] (1.002-1.035) Urine Protein (Neg-Trace) mg/dL Urine Glucose (UA) (Negative) mg/dL Urine Ketones (Negative) mg/dL Urine Occult Blood (Negative) Urine Nitrate (Negative) Urine Bilirubin (Negative) Urine Urobilinogen (Less than 2) mg/dL Ur Leukocyte Esterase (Negative) Urine RBC (0-3) /hpf Urine WBC (0-5) /hpf Urine WBC Clumps (None) Ur Squamous Epith Cells (0-5) /hpf Ur Transition Epith Cell (None) /hpf Ur Renal Epithelial Cell (None) /hpf Urine Bacteria (None) /hpf Hyaline Casts (0-3) /lpf Urine Mucus (Occasional) /lpf Micro UA Comment Ur Microscopic Review Urine Culture Comments Nasal Screen MRSA (PCR) (Negative) 04/10/18 Range/Units 11:20 WBC (4.0-11.0) th/mm3 RBC (4.50-5.90) mil/mm3 Hgb (13.0-17.0) gm/dL Hct (39.0-51.0) % MCV (80.0-100.0) fL MCH (27.0-34.0) pg MCHC (32.0-36.0) % RDW (11.6-17.2) % Plt Count (150-450) th/mm3 MPV (7.0-11.0) fL Prelim Diff (Auto) Neut % (Auto) (16.0-70.0) % Lymph % (Auto) (9.0-44.0) % [place] % (Auto) (0.0-8.0) % Eos % (Auto) (0.0-4.0) % Baso % (Auto) (0.0-2.0) % Neut # (Auto) (1.8-7.7) th/mm3 Lymph # (Auto) (1.0-4.8) th/mm3 [place] # (Auto) (0.0-0.9) th/mm3 Eos # (Auto) (0.0-0.4) th/mm3 Baso # (Auto) (0.0-0.2) th/mm3 WBC Differential Seg Neuts % (Manual) (16-70) % Band Neuts % (Manual) (0-6) % Lymphocytes % (Manual) (9-44) % Monocytes % (Manual) (0-8) % Eosinophils % (Manual) (0-4) % Abs Neuts (Manual) (1.8-7.7) th/mm3 Differential Comment Toxic Granulation (None) Platelet Estimate (Normal) Platelet Morphology (Normal) RBC Morphology (Normal) [place] Cells (None) Puncture Site Patient Temperature O2 Saturation (90-100) % ABG pH (7.380-7.420) ABG pCO2 (38-42) mmHg ABG pO2 (61-120) mmHg ABG HCO3 (22-26) mmol/L ABG O2 Content (12.0-20.0) Vol % ABG Base Excess (-2-2) mmol/L ABG Methemoglobin (0-2) % Manuel Test Hemoglobin (12.0-16.0) G/DL Carboxyhemoglobin (0-4) % O2 Delivery Device Vent Setting Inspired O2 % Critical Value Sodium (136-145) meq/L Potassium (3.5-5.1) meq/L Chloride (98-107) meq/L Carbon Dioxide (21.0-32.0) meq/L Anion Gap (5-15) meq/L BUN (7-18) mg/dL Creatinine (0.60-1.30) mg/dL Estimated GFR (>89) mL/min POC Glucose 150 H (68-110) mg/dl Random Glucose (74-106) mg/dL Lactic Acid (0.4-2.0) mmol/L Calcium (8.5-10.1) mg/dL Phosphorus (2.5-4.9) mg/dL Magnesium (1.5-2.5) mg/dL Total Bilirubin (0.2-1.0) mg/dL AST (15-37) U/L ALT (12-78) U/L Alkaline Phosphatase (45-117) U/L Total Creatine Kinase (39-308) U/L Troponin I (0.02-0.05) ng/mL Total Protein (6.4-8.2) g/dL Albumin (3.4-5.0) g/dL Urine Color (Yellw/Straw) Urine Clarity (Clear) Urine pH (5.0-8.5) Ur Specific [place] (1.002-1.035) Urine Protein (Neg-Trace) mg/dL Urine Glucose (UA) (Negative) mg/dL Urine Ketones (Negative) mg/dL Urine Occult Blood (Negative) Urine Nitrate (Negative) Urine Bilirubin (Negative) Urine Urobilinogen (Less than 2) mg/dL Ur Leukocyte Esterase (Negative) Urine RBC (0-3) /hpf Urine WBC (0-5) /hpf Urine WBC Clumps (None) Ur Squamous Epith Cells (0-5) /hpf Ur Transition Epith Cell (None) /hpf Ur Renal Epithelial Cell (None) /hpf Urine Bacteria (None) /hpf Hyaline Casts (0-3) /lpf Urine Mucus (Occasional) /lpf Micro UA Comment Ur Microscopic Review Urine Culture Comments Nasal Screen MRSA (PCR) (Negative) Imaging Data Radiologist's impression: Chest X-Ray 04/05/18 21:24 CONCLUSION: Multifocal bilateral pulmonary opacity suspicious for multifocal consolidation. Recommend radiographic follow-up to resolution. Chest X-Ray 04/05/18 22:49 CONCLUSION: Interval intubation. Unchanged bilateral pulmonary consolidations. Chest CT 04/06/18 00:00 CONCLUSION: 1. Patchy bilateral areas of consolidation most likely infectious in etiology. 2. 1.5 cm left lower lobe pulmonary nodule. Close follow-up of this nodule is suggested. Consideration could be made to an outpatient PET CT to further assess. 3. Coronary artery atherosclerotic calcifications. Face CT 04/06/18 00:00 CONCLUSION: 1. Small focal area of soft tissue swelling involving the lateral orbital margin on the left. No abscess. Chest X-Ray 04/07/18 06:00 CONCLUSION: Unchanged bilateral pulmonary infiltrates and tiny left effusion. Chest X-Ray 04/10/18 08:03 CONCLUSION: Slight interval worsening right basilar consolidation and persistent stable right upper lobe and left basilar consolidations. ECG Data Attestation: I personally reviewed and interpreted this ECG as follows: Interpretation: Twelve-lead EKG was reviewed by me. Normal sinus rhythm, normal axis nonspecific ST-T wave changes, tachycardia. Heart rate of 104 bpm. Discharge Plan Discharge Disposition Patient Disposition: ED Admit(ED Internal Use Only) Discharge Order Discharge Orders: ED Use Only Admit Order (Routine); Ordered 04/05/18 Ordered By: Blaze Slater Physicians Team ED Provider: Blaze Slater Primary Care Provider: UNKNOWN, Attending Provider: Sonam Bustos Other Providers: Lilia Suarez Status ED Status: Left Department Discharge Information Discharge Date/Time: 04/06/18 01:00
[2018-04-05 21:52] LABS: ABG Base Excess -0.2 mmol/L (-2-2); ABG PCO2 43 mmHg (38-42); ABG PO2 83 mmHg (61-120)
[2018-04-05] MEDS: Sod Chloride 0.9% Inj 1,000 ML IV.SIG SCH ×2 (21:56→23:39)
[2018-04-05 21:57] LABS: Baso % (Auto) 0.2 % (0.0-2.0); Hematocrit 47.7 % (39.0-51.0); Hemoglobin 15.7 gm/dL (13.0-17.0); Lymph # (Auto) 0.8 th/mm3 (1.0-4.8); Lymph % (Auto) 4.3 % (9.0-44.0); Mean Corpuscular HGB Conc 32.8 % (32.0-36.0); Mean Corpuscular Hemoglobin 29.3 pg (27.0-34.0); Mean Corpuscular Volume 89.1 fL (80.0-100.0); Mean Platelet Volume 9.5 fL (7.0-11.0); Mono # (Auto) 1.4 th/mm3 (0.0-0.9); Neut # (Auto) 15.5 th/mm3 (1.8-7.7); Neut % (Auto) 87.5 % (16.0-70.0); Platelet Count 197 th/mm3 (150-450); Red Blood Count 5.35 mil/mm3 (4.50-5.90); Red Cell Distribution Width 14.3 % (11.6-17.2); White Blood Count 17.7 th/mm3 (4.0-11.0)
--- NOTE | 2018-04-05 21:59 | XR ---
EXAM DATE: 04/05/2018 9:54 PM EST AGE/SEX: 72 years / Male INDICATIONS: Fever. CLINICAL DATA: This is the patient's initial encounter. Patient reports that signs and symptoms have been present for 3 days and indicates a pain score of 4/10. MEDICAL/SURGICAL HISTORY: None. None. COMPARISON: No prior exams available for comparison. FINDINGS: 2 AP views of the chest. Patchy pulmonary opacity at the left lung base, left mid lung zon e, and right upper lung zone. The lungs are clear. Cardiomediastinal silhouette within normal limits . No evidence of pleural effusion or pneumothorax. CONCLUSION: Multifocal bilateral pulmonary opacity suspicious for multifocal consolidation. Recommend radiographic follow-up to resolution. Electronically signed by: Lawrence Hollis MD Board Certified Radiologist 04/05/2018 9:58 PM EST
[2018-04-05 22:17] LABS: Alanine Aminotransferase 21 U/L (12-78)
[2018-04-05 22:20] LABS: Alkaline Phosphatase 63 U/L (45-117); Total Protein 7.3 g/dL (6.4-8.2)
[2018-04-05 22:27] LABS: Albumin 3.1 g/dL (3.4-5.0); Anion Gap 9 meq/L (5-15); Aspartate Aminotransferase 35 U/L (15-37); Blood Urea Nitrogen 35 mg/dL (7-18); Calcium 8.7 mg/dL (8.5-10.1); Carbon Dioxide 24.5 meq/L (21.0-32.0); Chloride 98 meq/L (98-107); Glomerular Filtration Rate 52 mL/min (>89); Glucose,Random 173 mg/dL (74-106); Magnesium 1.6 mg/dL (1.5-2.5); Potassium 3.8 meq/L (3.5-5.1); Sodium 131 meq/L (136-145)
[2018-04-05] MEDS ORDERED: Etomidate Inj 40 MG/20 ML Vial IV.PUSH ONE (22:33)
[2018-04-05] MEDS ORDERED: Etomidate Inj 20 MG/10 ML Ampul IV.PUSH ONE (22:49)
[2018-04-05] MEDS ORDERED: Succinylcholine Inj 100 MG/5 ML Syringe IV.PUSH ONE (22:49)
[2018-04-05] MEDS ORDERED: fentaNYL 10 mcg/mL Premix Drip 2,500 MCG/250 ML BAG ONE (22:58)
[2018-04-05] MEDS ORDERED: Midazolam 100 MG/100 ML Inj 100 MG/100 ML BAG IV.CONT ONE (22:58)
[2018-04-05 23:00] LABS: Monocytes 7 % (0-8); Platelet Estimate Normal (Normal); Platelet Morphology Normal (Normal)
[2018-04-05] MEDS: Midazolam 100 MG/100 ML Inj 100 MG/100 ML BAG IV.CONT PRN (23:00)
[2018-04-05 23:01] LABS: Burr Cells 1+
[2018-04-05] MEDS ORDERED: Midazolam Inj 5 MG/ML 1 ML Vial ONE (23:11)
[2018-04-05] MEDS ORDERED: Propofol 1000 mg/100 ml Inj 1,000 MG/100 ML BOTTLE IV.CONT PRN (23:20)
[2018-04-05] MEDS ORDERED: MIDAZOLAM IV.PUSH ONE (23:20)
--- NOTE | 2018-04-05 23:20 | XR ---
EXAM DATE: 04/05/2018 11:04 PM EST AGE/SEX: 72 years / Male INDICATIONS: Post intubation CLINICAL DATA: This is the patient's initial encounter. Patient reports that signs and symptoms have been present for 1 day and indicates a pain score of Nonresponsive. MEDICAL/SURGICAL HISTORY: Non-responsive. Non-responsive. COMPARISON: [facility] – [place], CHEST 1V SINGLE AP, 04/05/2018. . FINDINGS: A single AP view of the chest demonstrates interval intubation. Tip of the endotracheal tube approxim ately 6 cm from the haseeb. Nasogastric tube courses off the inferior margin of the film. Patchy area s of parietal consolidation again noted bilaterally. The lungs are hyper aerated. No effusion. Heart is normal in size. CONCLUSION: Interval intubation. Unchanged bilateral pulmonary consolidations. Electronically signed by: Leonard Washburn MD Board Certified Radiologist 04/05/2018 11:19 PM EST
[2018-04-05] MEDS ORDERED: METHYLPREDNISOLONE SOD SUC IV.SIG ONE (23:21)
[2018-04-05] MEDS ORDERED: SODIUM CHLOR 0.9% IV.SIG ONE (23:21)
[2018-04-05] MEDS: fentaNYL 10 mcg/mL Premix Drip 2,500 MCG/250 ML BAG IV.SIG PRN (23:22)
--- NOTE | 2018-04-05 23:33 | P.HPCC ---
History of Present Illness Service: Critical care Primary Care Physician: UNKNOWN Chief Complaint: Shortness of breath, anaphylaxis History of Present Illness: Patient is 72-year-old male with past medical history of COPD, tobacco abuse and hypertension who came to the emergency room for shortness of breath via EMS. On EMS arrival saturation was in the 90s, but patient had significant shortness of breath and dyspnea. Patient received Solu-Medrol 125 mg IV and breathing treatments by EMS and was brought to the emergency department. In the emergency department patient received further breathing treatments and chest x-ray showed patchy infiltrate on bilateral lung fitzgerald. Initially maintaining oxygen saturation with nasal cannula. Initial blood pressure was 85 /65, improved with normal saline boluses. WBC count was 17.1. Patient was deemed septic from pneumonia and patient was ordered to receive vancomycin and Zosyn. While receiving vancomycin patient acutely decompensated became extremely short of breath and developed erythematous maculopapular rash involving face torso armpits and groin region. Emergently intubated and placed on mechanical ventilation by the ED physician. Received IV 50 mg Benadryl. Critical care medicine was requested to admit the patient. I evaluated the patient immediately in the emergency department. Patient is intubated on Versed and fentanyl infusion however he is very asynchronous with the vent triggering ventilator alarms. Severe bilateral expiratory wheezing heard on auscultation. He has extensive skin rash predominantly face forehead torso armpit and groins. Appears like patient had anaphylactic reaction to vancomycin complicated by COPD exacerbation and pneumonia. I have ordered additional Solu-Medrol 100 mg x1 scheduled Benadryl and famotidine, antibiotics with cefepime and Levaquin. Increase Versed infusion, add propofol and use neuromuscular paralysis as needed. Will request pharmacy to add vancomycin to allergy. ED physician Dr. Slater had noticed that patient had some swelling on the left side of his face on arrival, however the skin rash after vancomycin was started was new. Patient remains hypotensive has received 2 L of normal saline in the emergency department and no significant urine output. I have ordered additional 2 L normal saline bolus and maintenance fluid at 84 mL/h. Use Levophed as needed to keep map above 65 - Diagnosis (1) Anaphylaxis (2) COPD with acute exacerbation (3) Bilateral pneumonia (4) Allergic reaction caused by a drug (5) Acute respiratory failure (6) Severe sepsis (7) Leukocytosis (8) Hypotension (9) Acute kidney injury (10) Hyponatremia (11) Hyperglycemia (12) History of hypertension (13) Tobacco abuse (14) History of COPD Review of Systems unobtainable due to endotracheal tube PMFSH - History History Provided By: Patient - Medical History Medical History: Medical History (Last Reviewed 04/06/18 @ 00:04 by Sonam Bustos MD) COPD (chronic obstructive pulmonary disease) Hypertension - Surgical History Surgical History: Surgical History (Last Reviewed 04/06/18 @ 00:04 by Sonam Bustos MD) Previous back surgery - Tobacco History Tobacco Use In Past 30 Days: Yes Smoking Status: Current every day smoker Tobacco Type: Cigarettes - Alcohol History How Often Do You Have a Drink Containing Alcohol: Monthly or less - Travel History Recent Travel in the [place] Within the Last 8 Weeks: No Recent Travel Out of the Country Within the Last 8 Weeks: No - Immunization History Tetanus Immunization: <5 Years Medications and Allergies Active Medications: Active Medications Albuterol (Duoneb Neb (Prn)) 1 ampul NEB Q4HR NEB PRN PRN Reason: SHORTNESS OF BREATH Albuterol (Duoneb Neb (Denae)) 1 ampul NEB Q4HR NEB EDNAE Chlorhexidine Gluconate (Chlorhexidine 2% Cloth) 3 pack TOPICAL DAILY@0400 PRN PRN Reason: Extra cloth needed Stop: 04/11/18 03:59 Chlorhexidine Gluconate (Chlorhexidine 2% Cloth) 3 pack TOPICAL DAILY@0400 DENAE Stop: 04/11/18 03:59 Chlorhexidine Gluconate (Peridex 0.12% Oral Kit) 15 ml OROPHARYNG BID@0800, 2000 DENAE Diphenhydramine HCl (Benadryl Inj) 50 mg IV.PUSH Q6H DENAE Enoxaparin Sodium (Lovenox Inj) 40 mg SQ Q24H DENAE Famotidine (Pepcid Pf Inj) 20 mg IV.PUSH Q12HR DENAE Piperacillin/Tazobactam/Dextrose (Zosyn 4.5 Gm Premix) 4.5 gm in 100 mls @ 200 mls/hr IV.SIG ONCE DENAE Last Infusion: 04/05/18 22:09 Dose: Infused Fentanyl (Fentanyl 10 Mcg/Ml Premix Drip) 2,500 mcg in 250 mls @ 5 mls/hr IV.SIG TITRATE PRN; Protocol PRN Reason: Per Protocol Last Admin: 04/05/18 23:22 Dose: 50 mcg/hr, 5 mls/hr Midazolam HCl (Versed Inj) 100 mg in 100 mls @ 2 mls/hr IV.CONT TITRATE PRN; Protocol PRN Reason: See protocol Cefepime HCl 2,000 mg/ Sodium (Chloride) 100 mls @ 200 mls/hr IV.SIG Q8H DENAE Levofloxacin/Dextrose (Levaquin 750 Mg Premix Inj) 150 mls @ 100 mls/hr IV.SIG Q24H DENAE Propofol (Diprivan 1000 Mg/100 Ml Inj) 1,000 mg in 100 mls @ 2.517 mls/hr IV.CONT TITRATE PRN; Protocol PRN Reason: Per Protocol Methylprednisolone Sodium Succinate 100 mg/ Sodium Chloride 101.6 mls @ 200 mls /hr IV.SIG ONCE ONE Stop: 04/05/18 23:51 Methylprednisolone Sodium Succinate (Solumedrol Inj) 60 mg IV.PUSH Q8HR DENAE Metoprolol Tartrate (Lopressor) 150 mg PO BID DENAE Midazolam HCl (Versed Inj) 5 mg IV.PUSH ONCE ONE Stop: 04/05/18 23:21 Miscellaneous Medication () 1 each OROPHARYNG 0000,0400,1200,1600 DENAE Rocuronium [place] (Zemuron Inj) 50 mg IV.PUSH BOLUS ONE Stop: 04/05/18 23:20 Allergies Allergy/AdvReac Type Severity Reaction Status Date / Time bee venom protein (honey bee) Allergy Unknown Edema Verified 04/05/18 21:12 vancomycin Allergy Anaphylaxis Verified 04/05/18 23:33 Home Medications Medication Instructions Recorded Confirmed Type lisinopril 40 mg PO DAILY 04/05/18 04/05/18 History metoprolol tartrate 150 mg PO BID 04/05/18 04/05/18 History Results - Labs CBC & Chem 7: 04/05/18 21:40 04/05/18 21:40 Labs: Short CBC 04/05/18 Range/Units 21:40 WBC 17.7 H (4.0-11.0) th/mm3 Hgb 15.7 (13.0-17.0) gm/dL Hct 47.7 (39.0-51.0) % Plt Count 197 (150-450) th/mm3 BMP 04/05/18 21:40 Sodium 131 L Potassium 3.8 Chloride 98 Carbon Dioxide 24.5 BUN 35 H Creatinine 1.36 H Calcium 8.7 Cardiac Enzymes 04/05/18 Range/Units 21:40 Troponin I Less than 0.02 L (0.02-0.05) ng/mL Liver Function 04/05/18 Range/Units 21:40 Total Bilirubin 1.0 (0.2-1.0) mg/dL AST 35 (15-37) U/L ALT 21 (12-78) U/L Alkaline Phosphatase 63 (45-117) U/L Albumin 3.1 L (3.4-5.0) g/dL - Imaging Impressions Chest X-Ray 04/05/18 21:24 CONCLUSION: Multifocal bilateral pulmonary opacity suspicious for multifocal consolidation. Recommend radiographic follow-up to resolution. Chest X-Ray 04/05/18 22:49 CONCLUSION: Interval intubation. Unchanged bilateral pulmonary consolidations. Exam Vital signs: Vital Signs 04/05/18 21:13 04/05/18 21:27 04/05/18 21:28 Temperature 98.9 F Pulse Rate 103 H 102 H Respiratory Rate 42 H 40 H Blood Pressure 95/62 L Pulse Oximetry 96 97 97 Intake & Output 04/05/18 04/05/18 04/06/18 06:59 18:59 06:59 Intake Total 100 / 100 Balance 100 / 100 Weight 83.915 kg Intake: IV 100 / 100 Zosyn 4.5 GM Premix 4.5 gm In 100 / 100 100 ml @ 200 mls/hr IV.SIG ONCE [facility] Rx#:[id number] Narrative: GENERAL: Intubated sedated however asynchronous to with the vent, anxious SKIN: Extensive bilateral erythematous maculopapular rash on the face predominantly forehead periorbitally, torso bilateral armpit and groin region anterior abdominal wall. HEAD: Atraumatic. Normocephalic. EYES: Pupils equal and round. No scleral icterus. ENT: No nasal bleeding or discharge. Orotracheally intubated NECK: Trachea midline. No JVD. CARDIOVASCULAR: Tachycardic rate no murmur. Hypotensive receiving fluid boluses RESPIRATORY: Tachypneic on the ventilator, accessory muscles use for respiration , very diminished air entry bilaterally with expiratory wheezing GASTROINTESTINAL: Abdomen soft, non-tender, nondistended. Hepatic and splenic margins not palpable. : Shine catheter is being placed MUSCULOSKELETAL: No obvious deformities. No clubbing. No cyanosis. No edema. Skin rash as above NEUROLOGICAL: Intubated sedated however asynchronous with the vent moving all extremities. Septic Shock Reassessment Septic shock perfusion: reassessment completed Caprini VTE Risk Assessment Caprini VTE Risk Assessment: Moderate/High Risk (score >= 2) Caprini Risk Assessment Model: Point Value = 1 Point Value = 2 Point Value = 3 Point Value = 5 Age 41-60 Minor surgery BMI > 25 kg/m2 Swollen legs Varicose veins or History of unexplained or recurrent spontaneous Oral contraceptives or hormone replacement Sepsis (< 1 month) Serious lung disease, including pneumonia (< 1 month) Abnormal pulmonary function Acute myocardial infarction Congestive heart failure (< 1 month) History of inflammatory bowel disease Medical patient at bed rest Age 61-74 Arthroscopic surgery Major open surgery (> 45 min) Laparoscopic surgery (> 45 min) Malignancy Confined to bed (> 72 hours) Immobilizing plaster cast Central venous access Age >= 75 History of VTE Family history of VTE Factor V Leiden Prothrombin [id number] Lupus anticoagulant Anticardiolipin antibodies Elevated serum homocysteine Heparin-induced thrombocytopenia Other congenital or acquired thrombophilia Stroke (< 1 month) Elective arthroplasty Hip, pelvis, or leg fracture Acute spinal cord injury (< 1 month) Prophylaxis Regimen: Total Risk Factor Score Risk Level Prophylaxis Regimen 0-1 Low Early ambulation 2 Moderate Order ONE of the following: *Sequential Compression Device (SCD) *Heparin 5000 units SQ BID 3-4 Higher Order ONE of the following medications: *Heparin 5000 units SQ TID *Enoxaparin/Lovenox 40 mg SQ daily (WT < 150 kg, CrCl > 30 mL/min) *Enoxaparin/Lovenox 30 mg SQ daily (WT < 150 kg, CrCl > 10-29 mL/min) *Enoxaparin/Lovenox 30 mg SQ BID (WT < 150 kg, CrCl > 30 mL/min) AND/OR *Sequential Compression Device (SCD) 5 or more Highest Order ONE of the following medications: *Heparin 5000 units SQ TID (Preferred with Epidurals) *Enoxaparin/Lovenox 40 mg SQ daily (WT < 150 kg, CrCl > 30 mL/min) *Enoxaparin/Lovenox 30 mg SQ daily (WT < 150 kg, CrCl > 10-29 mL/min) *Enoxaparin/Lovenox 30 mg SQ BID (WT < 150 kg, CrCl > 30 mL/min) AND *Sequential Compression Device (SCD) Assessment and Plan - Problem List (1) Anaphylaxis Code(s): T78.2XXA - Anaphylactic shock, unspecified, initial encounter Status : Acute (2) COPD with acute exacerbation Code(s): J44.1 - Chronic obstructive pulmonary disease with (acute) exacerbation Status: Acute (3) Bilateral pneumonia Code(s): J18.9 - Pneumonia, unspecified organism Status: Acute (4) Allergic reaction caused by a drug Code(s): T78.40XA - Allergy, unspecified, initial encounter Status: Acute (5) Acute respiratory failure Code(s): J96.00 - Acute respiratory failure, unspecified whether with hypoxia or hypercapnia Status: Acute (6) Severe sepsis Code(s): A41.9 - Sepsis, unspecified organism; R65.20 - Severe sepsis without septic shock Status: Acute (7) Leukocytosis Code(s): D72.829 - Elevated white blood cell count, unspecified Status: Acute (8) Hypotension Code(s): I95.9 - Hypotension, unspecified Status: Acute (9) Acute kidney injury Code(s): N17.9 - Acute kidney failure, unspecified Status: Acute (10) Hyponatremia Code(s): E87.1 - Hypo-osmolality and hyponatremia Status: Acute (11) Hyperglycemia Code(s): R73.9 - Hyperglycemia, unspecified Status: Acute (12) History of hypertension Code(s): Z86.79 - Personal history of other diseases of the circulatory system Status: Chronic (13) Tobacco abuse Code(s): Z72.0 - Tobacco use Status: Chronic (14) History of COPD Code(s): Z87.09 - Personal history of other diseases of the respiratory system Status: Chronic - Assessment and Plan Plan: NEURO: -Propofol Versed and fentanyl for sedation and ventilator synchrony -Daily sedation vacation once respiratory status improves RESP: Acute hypoxemic respiratory Anaphylactic reaction to vancomycin Acute COPD exacerbation Bilateral pneumonia -Emergently intubated and placed on mechanical ventilation in the emergency department -PRVC/AC, Ventilator bundle -DuoNeb every 4 hours scheduled and as needed -Received total of 225 mg IV Solu-Medrol, continue 60 mg IV every 8 hours -Benadryl 50 mg IV every 6 hours, famotidine 20 mg IV every 12 hours for anaphylaxis -Vancomycin added to allergy -CT of the chest to better evaluate infiltrates CV: History of hypertension -Normal saline IV fluids for liter bolus, and maintenance at 84 mL/h -Levophed as needed to keep map above 65 -Trend lactic acid if high -Hold home medication metoprolol and lisinopril GI: -N.p.o., IV famotidine -Start tube feeds in 24 hours : Acute kidney injury Dehydration Oliguria -Monitor renal function closely. Place Shine catheter. -4 L IV fluid boluses and maintenance fluid at 75 mL/h -Renal function if not improving need nephrology consult ID: Severe sepsis Multifocal pneumonia -Antibiotics cefepime antipseudomonal dose and Levaquin -Blood urine and sputum cultures HEME: -Monitor CBC, coags ENDO: Hyperglycemia Hyponatremia -Electrolyte replacement per protocol -Sliding scale insulin if needed -Hyperglycemia may be stress related PROPH: -Bilateral lower extremity SCDs. Lovenox/famotidine LINES: -Utilize peripheral IVs, central line if needed CC time 77 min Patient is very critically ill now with COPD exacerbation respiratory failure pneumonia severe sepsis progressing to septic shock. He also has an anaphylactic reaction with airway compromise. Currently oliguric despite fluid boluses. He appears to be going into multiorgan failure with guarded prognosis Code Status: Full Discussed Condition With: Dr. Garcia
[2018-04-06] MEDS: Norepinephrine Inj 4 MG in Sodium Chlor 0.9% Inj 246 ML IV.SIG PRN ×2 (00:05→00:43)
[2018-04-06] MEDS ORDERED: Dextrose 50% in Water 50 ML Vial IV.PUSH PRN (00:12)
[2018-04-06 00:16] LABS: ABG Base Excess -1.1 mmol/L (-2-2); ABG PCO2 59 mmHg (38-42); ABG PO2 106 mmHg (61-120)
[2018-04-06] MEDS: Enoxaparin Inj 40 MG/0.4 ML Syringe SQ SCH ×2 (00:27→22:11)
[2018-04-06 01:36] LABS: Bacteria,Urine Few /hpf; Bilirubin,Urine Negative (Negative); Clarity,Urine Cloudy (Clear); Color,Urine Amber (Yellw/Straw); Glucose,Urine (UA) Negative (Negative); Hyaline Casts,Urine 16 /lpf (0-3); Leukocyte Esterase,Urine Negative (Negative); Mucus,Urine Few /lpf (Occasional); Nitrite,Urine Negative (Negative); Renal Epithelial Cells,Urine <1 /hpf; Specific Gravity,Urine 1.027 (1.002-1.035); Squamous Epithelial Cell,Urine 2 /hpf (0-5); Transitional Epi Cells,Urine <1 /hpf
--- NOTE | 2018-04-06 01:41 | CT ---
EXAM DATE: 04/06/2018 1:28 AM EST AGE/SEX: 72 years / Male INDICATIONS: Shortness of breath; possible pneumonia. CLINICAL DATA: This is the patient's initial encounter. Patient reports that signs and symptoms have been present for 1 day and indicates a pain score of Nonresponsive. MEDICAL/SURGICAL HISTORY: Chronic obstructive pulmonary disease. Hypertension. None. RADIATION DOSE: 8.6 CTDI (mGy) COMPARISON: No prior exams available for comparison. TECHNIQUE: Multiple contiguous axial images were obtained through the chest without contrast. Image s were obtained in suspended respiration using multiple row detector helical technique. Using automa milad exposure control and adjustment of the mA and/or kV according to patient size, radiation dose was kept as low as reasonably achievable to obtain optimal diagnostic quality images. DICOM format imag e data is available electronically for review and comparison. FINDINGS: Lungs: Bilateral scattered areas of parenchymal consolidation are noted throughout both upper and lo wer lobes. There is a 1.5 x 1.2 cm nodule within the medial basilar segment of the left lower lobe. N o bronchiectasis. Calcified granuloma within the left lower lobe.. Mediastinum: No evidence of mediastinal or hilar adenopathy/mass. The heart is normal in size. Coron faiza artery atherosclerotic calcifications are noted. The aorta and pulmonary arteries are normal in c aliber. Endotracheal tube tip 8 cm from the haseeb. Nasogastric tube noted. . Pleurae: No evidence of focal thickening or pleural effusion. Axillae: Unremarkable. Bony Structures: Unremarkable. Miscellaneous: The examination was extended to include the upper abdomen, and both adrenal glands ar e normal in size and configuration. A 2 mm nonobstructing left renal stone. CONCLUSION: 1. Patchy bilateral areas of consolidation most likely infectious in etiology. 2. 1.5 cm left lower lobe pulmonary nodule. Close follow-up of this nodule is suggested. Considerati on could be made to an outpatient PET CT to further assess. 3. Coronary artery atherosclerotic calcifications. Electronically signed by: Leonard Washburn MD Board Certified Radiologist 04/06/2018 1:40 AM EST
--- NOTE | 2018-04-06 01:44 | CT ---
EXAM DATE: 04/06/2018 1:32 AM EST AGE/SEX: 72 years / Male INDICATIONS: Spider bite with possible abscess. CLINICAL DATA: This is the patient's initial encounter. Patient reports that signs and symptoms have been present for 1 day and indicates a pain score of Nonresponsive. MEDICAL/SURGICAL HISTORY: Chronic obstructive pulmonary disease. Hypertension. None. RADIATION DOSE: 29.29 CTDI (mGy) COMPARISON: No prior exams available for comparison. TECHNIQUE: Contiguous images in the axial and coronal planes were obtained using helical multirow de tector technique with 72 ml Omnipaque 350 (iohexol) nonionic water-soluble contrast as a single exam dose. Using automated exposure control and adjustment of the mA and/or kV according to patient size , radiation dose was kept as low as reasonably achievable to obtain optimal diagnostic quality images . DICOM format image data is available electronically for review and comparison. FINDINGS: Orbits: The orbital and infraorbital osseous structures are intact. The retroconal structures have a normal configuration. No radiopaque foreign bodies are seen. Nasal Bone: The nasal bone and maxillary spine are intact. Zygomatic Arches: Symmetric without evidence of fracture. Sinuses: The maxillary, ethmoid and frontal sinuses are intact. No air-fluid levels seen. Nasal Cavity: The nasal septum is intact and midline. The lacrimal ducts are intact. Soft Tissues: No radiopaque foreign bodies seen. A small focal area of soft tissue swelling involvin g the lateral orbital margin on the left.. Intracranial: No intracranial air seen. Cribriform Plate: Grossly intact. Post Contrast: No abnormal areas of enhancement seen. Endotracheal tube and orogastric tube noted. CONCLUSION: 1. Small focal area of soft tissue swelling involving the lateral orbital margin on the left. No abs cess. Electronically signed by: Leonard Washburn MD Board Certified Radiologist 04/06/2018 1:43 AM EST
[2018-04-06] MEDS: Oral Hygiene Kit OROPHARYNG SCH ×5 (02:07→23:37)
[2018-04-06] MEDS ORDERED: Chlorhexidine Gluconate 2% 1 Pack (2 Cloths) TOPICAL PRN (04:00)
[2018-04-06] MEDS: MethylPREDNISolone Sod Succinate Inj 125 MG/2 ML Vial IV.PUSH SCH ×4 (04:05→22:10)
[2018-04-06] MEDS ORDERED: Sod Chloride 0.9% Inj 1,000 ML IV.SIG ONE (05:30)
[2018-04-06] MEDS: Sod Chloride 0.9% Inj 1,000 ML IV.SIG SCH ×2 (06:23→18:12)
[2018-04-06] MEDS: Chlorhexidine Gluconate 2% 1 Pack (2 Cloths) TOPICAL SCH (06:24)
[2018-04-06] MEDS: Insulin NovoLIN Regular Correctional Sugar Inj SQ SCH ×3 (06:28→18:12)
[2018-04-06] MEDS: Chlorhexidine 0.12% Oral Kit 15 ML UDC OROPHARYNG SCH ×2 (08:35→19:56)
[2018-04-06] MEDS: Famotidine PF Inj 20 MG/2 ML Vial IV.PUSH SCH ×2 (08:35→22:10)
[2018-04-06] MEDS ORDERED: Metoprolol Tartrate 100 MG Tablet PO SCH (09:00)
[2018-04-06 09:07] LABS: Hematocrit 45.2 % (39.0-51.0); Hemoglobin 14.9 gm/dL (13.0-17.0); Mean Corpuscular HGB Conc 33.1 % (32.0-36.0); Mean Corpuscular Hemoglobin 30.2 pg (27.0-34.0); Mean Corpuscular Volume 91.1 fL (80.0-100.0); Mean Platelet Volume 10.2 fL (7.0-11.0); Platelet Count 134 th/mm3 (150-450); Red Blood Count 4.95 mil/mm3 (4.50-5.90); Red Cell Distribution Width 14.4 % (11.6-17.2); White Blood Count 6.8 th/mm3 (4.0-11.0)
[2018-04-06 09:40] LABS: Alanine Aminotransferase 16 U/L (12-78); Albumin 2.4 g/dL (3.4-5.0); Alkaline Phosphatase 45 U/L (45-117); Anion Gap 10 meq/L (5-15); Aspartate Aminotransferase 22 U/L (15-37); Blood Urea Nitrogen 39 mg/dL (7-18); Calcium 8.3 mg/dL (8.5-10.1); Carbon Dioxide 21.9 meq/L (21.0-32.0); Chloride 105 meq/L (98-107); Glomerular Filtration Rate 63 mL/min (>89); Glucose,Random 162 mg/dL (74-106); Potassium 3.8 meq/L (3.5-5.1); Sodium 137 meq/L (136-145); Total Protein 6.2 g/dL (6.4-8.2)
[2018-04-06 10:34] LABS: Eosinophils 1 % (0-4); Lymphocytes 3 % (9-44); Monocytes 4 % (0-8)
[2018-04-06] MEDS ORDERED: Magnesium Sulfate Inj 4 GM in Sodium Chlor 0.9% Inj 92 ML IV.SIG PRN (10:34)
[2018-04-06] MEDS ORDERED: Magnesium Sulfate Inj 2 GM in Sodium Chlor 0.9% Inj 96 ML IV.SIG PRN (10:34)
[2018-04-06] MEDS ORDERED: Potassium Phosphate 500 MG Soluble Tablet PO PRN ×2 (10:34)
[2018-04-06] MEDS ORDERED: Potassium Chlor 40 mEq Premix 40 MEQ/100 ML PIGGYBACK IV.SIG PRN ×2 (10:34)
[2018-04-06] MEDS ORDERED: Potassium Phosphate Inj 30 MMOL in Sodium Chlor 0.9% Inj 250 ML IV.SIG PRN (10:34)
[2018-04-06] MEDS ORDERED: Potassium Chloride 25 MEQ Effervescent Tablet PO PRN (10:34)
[2018-04-06] MEDS ORDERED: Potassium Chlor 20 mEq Premix 20 MEQ/100 ML PIGGYBACK IV.SIG PRN (10:34)
[2018-04-06] MEDS ORDERED: Magnesium Oxide 400 MG Tablet PO PRN (10:34)
[2018-04-06] MEDS ORDERED: Sodium Phosphate Inj 30 MMOL in Sodium Chlor 0.9% Inj 250 ML IV.SIG PRN (10:34)
[2018-04-06 10:35] LABS: RBC Morphology Normal (Normal); Toxic Granulation 2+
--- NOTE | 2018-04-06 10:38 | P.PNCC ---
Subjective Subjective Remarks/Hospital Course: Patient is 72-year-old male with past medical history of COPD, tobacco abuse and hypertension who came to the emergency room for shortness of breath via EMS. On EMS arrival saturation was in the 90s, but patient had significant shortness of breath and dyspnea. Patient received Solu-Medrol 125 mg IV and breathing treatments by EMS and was brought to the emergency department. In the emergency department patient received further breathing treatments and chest x-ray showed patchy infiltrate on bilateral lung fitzgerald. Initially maintaining oxygen saturation with nasal cannula. Initial blood pressure was 85 /65, improved with normal saline boluses. WBC count was 17.1. Patient was deemed septic from pneumonia and patient was ordered to receive vancomycin and Zosyn. While receiving vancomycin patient acutely decompensated became extremely short of breath and developed erythematous maculopapular rash involving face torso armpits and groin region. Emergently intubated and placed on mechanical ventilation by the ED physician. Received IV 50 mg Benadryl. Critical care medicine was requested to admit the patient. I evaluated the patient immediately in the emergency department. Patient is intubated on Versed and fentanyl infusion however he is very asynchronous with the vent triggering ventilator alarms. Severe bilateral expiratory wheezing heard on auscultation. He has extensive skin rash predominantly face forehead torso armpit and groins. Appears like patient had anaphylactic reaction to vancomycin complicated by COPD exacerbation and pneumonia. I have ordered additional Solu-Medrol 100 mg x1 scheduled Benadryl and famotidine, antibiotics with cefepime and Levaquin. Increase Versed infusion, add propofol and use neuromuscular paralysis as needed. Will request pharmacy to add vancomycin to allergy. ED physician Dr. Slater had noticed that patient had some swelling on the left side of his face on arrival, however the skin rash after vancomycin was started was new. Patient remains hypotensive has received 2 L of normal saline in the emergency department and no significant urine output. I have ordered additional 2 L normal saline bolus and maintenance fluid at 84 mL/h. Use Levophed as needed to keep map above 65 Subjective 04/06: Off norepinephrine drip. Currently resting in bed in no acute distress on midazolam and fentanyl drips. Start tube feeding today. Objective Vital Signs / I&O: Vital Signs 04/05/18 21:13 04/05/18 21:27 04/05/18 21:28 Temperature 98.9 F Pulse Rate 103 H 102 H Respiratory Rate 42 H 40 H Blood Pressure 95/62 L Pulse Oximetry 96 97 97 04/05/18 22:35 04/05/18 22:45 04/05/18 22:50 Temperature Pulse Rate 107 H 110 H Respiratory Rate 40 H 40 H 14 Blood Pressure 100/55 L 144/84 H Pulse Oximetry 88 L 99 98 04/05/18 23:15 04/05/18 23:25 04/05/18 23:30 Temperature Pulse Rate 109 H 116 H 120 H Respiratory Rate 30 H 14 14 Blood Pressure 69/43 L 79/53 L Pulse Oximetry 98 99 04/05/18 23:35 04/06/18 00:10 04/06/18 00:25 Temperature Pulse Rate 105 H 108 H 99 H Respiratory Rate 14 14 18 Blood Pressure 84/61 L 95/54 L 86/60 L Pulse Oximetry 99 99 100 04/06/18 00:30 04/06/18 00:55 04/06/18 01:00 Temperature Pulse Rate 98 H 97 H Respiratory Rate 18 18 18 Blood Pressure 90/59 L 96/54 L Pulse Oximetry 100 99 04/06/18 01:44 04/06/18 02:00 04/06/18 02:39 Temperature 97.5 F L Pulse Rate 96 H 95 H Respiratory Rate 20 24 Blood Pressure 87/50 L Pulse Oximetry 98 95 04/06/18 03:39 04/06/18 04:00 04/06/18 04:37 Temperature Pulse Rate 101 H 99 H Respiratory Rate 27 H 25 H 24 Blood Pressure 135/62 Pulse Oximetry 96 100 04/06/18 05:00 04/06/18 06:00 04/06/18 07:00 Temperature 98.4 F 98 F 98.3 F Pulse Rate 101 H 73 113 H Respiratory Rate 24 25 H 24 Blood Pressure 145/68 H 160/70 H 116/57 L Pulse Oximetry 100 97 04/06/18 07:30 Temperature Pulse Rate Respiratory Rate 24 Blood Pressure Pulse Oximetry Intake & Output 04/05/18 04/06/18 04/06/18 18:59 06:59 18:59 Intake Total 2701.6 / 2701.6 1000 / 1000 Output Total 350 / 350 350 / 350 Balance 2351.6 / 2351.6 650 / 650 Weight 88 kg Intake: IV 2701.6 / 2701.6 1000 / 1000 Maxipime Inj 2,000 MG In NS Inj 100 / 100 100 ML @ 200 mls/hr IV.SIG Q8H [facility] Rx#:[id number] Levaquin 750 mg Premix Inj 150 150 / 150 ML @ 100 mls/hr IV.SIG Q24H [facility] Rx#:[id number] SoluMEDROL Inj 100 MG In NS Inj 101.6 / 101.6 100 ML @ 200 mls/hr IV.SIG ONCE ONE Rx#:[id number] Levophed Inj 4 MG In NS Inj 246 250 / 250 ML @ 2 MCG/MIN 7.5 mls/hr IV. SIG TITRATE PRN Rx#:[id number] Zosyn 4.5 GM Premix 4.5 gm In 100 / 100 100 ml @ 200 mls/hr IV.SIG ONCE [facility] Rx#:[id number] NS Inj 1,000 ML @ As Directed 2000 / 2000 1000 / 1000 IV.SIG .Q0M ONE Rx#:[id number] Oral 0 / 0 0 / 0 Output: Stool 0 / 0 0 / 0 Urine/Stool Mix 0 / 0 0 / 0 Urine Amount (Catheter) 350 / 350 350 / 350 Indwelling Urethral Catheter 350 / 350 350 / 350 Other: # Bowel Movements 0 0 # Incontinent Bowel Movements 0 0 Weight On Admission 86.5 kg Result Diagrams: 04/06/18 08:35 04/06/18 08:35 Other Results: Microbiology 04/05/18 21:30 Blood - Peripheral Anaerobic Blood Culture - Preliminary gram positive cocci 04/05/18 21:55 Nasal Wash Influenza Types A,B Antigen - Final Negative for FLU A and B antigen Infection due to influenza A or B cannot be ruled out since the antigen present in the sample may be below the detection limit of the test. Imaging: Chest X-Ray 04/05/18 21:24 CONCLUSION: Multifocal bilateral pulmonary opacity suspicious for multifocal consolidation. Recommend radiographic follow-up to resolution. Chest X-Ray 04/05/18 22:49 CONCLUSION: Interval intubation. Unchanged bilateral pulmonary consolidations. Chest CT 04/06/18 00:00 CONCLUSION: 1. Patchy bilateral areas of consolidation most likely infectious in etiology. 2. 1.5 cm left lower lobe pulmonary nodule. Close follow-up of this nodule is suggested. Consideration could be made to an outpatient PET CT to further assess. 3. Coronary artery atherosclerotic calcifications. Face CT 04/06/18 00:00 CONCLUSION: 1. Small focal area of soft tissue swelling involving the lateral orbital margin on the left. No abscess. Objective Remarks: GENERAL: This is a 72-year-old male currently orotracheally intubated SKIN: Warm and dry. HEAD: Atraumatic. Normocephalic. EYES: Pupils equal and round. No scleral icterus. No injection or drainage. ENT: No nasal bleeding or discharge. Mucous membranes pink and moist. NECK: Trachea midline. No JVD. CARDIOVASCULAR: Regular rate and rhythm. S1, S2. No S4. RESPIRATORY: No accessory muscle use. Clear to auscultation. Breath sounds equal bilaterally. GASTROINTESTINAL: Abdomen soft, non-tender, nondistended. Hepatic and splenic margins not palpable. MUSCULOSKELETAL: Extremities without clubbing, cyanosis, or edema. No obvious deformities. NEUROLOGICAL: Sedated on midazolam and fentanyl drips. Positive gag and cough. Positive corneal reflex. Moving all 4 extremities spontaneously on sedation vacation. Assessment and Plan - Problem List (1) Anaphylaxis Code(s): T78.2XXA - Anaphylactic shock, unspecified, initial encounter Status : Acute (2) COPD with acute exacerbation Code(s): J44.1 - Chronic obstructive pulmonary disease with (acute) exacerbation Status: Acute (3) Bilateral pneumonia Code(s): J18.9 - Pneumonia, unspecified organism Status: Acute (4) Allergic reaction caused by a drug Code(s): T78.40XA - Allergy, unspecified, initial encounter Status: Acute (5) Acute respiratory failure Code(s): J96.00 - Acute respiratory failure, unspecified whether with hypoxia or hypercapnia Status: Acute (6) Severe sepsis Code(s): A41.9 - Sepsis, unspecified organism; R65.20 - Severe sepsis without septic shock Status: Acute (7) Leukocytosis Code(s): D72.829 - Elevated white blood cell count, unspecified Status: Acute (8) Hypotension Code(s): I95.9 - Hypotension, unspecified Status: Acute (9) Acute kidney injury Code(s): N17.9 - Acute kidney failure, unspecified Status: Acute (10) Hyponatremia Code(s): E87.1 - Hypo-osmolality and hyponatremia Status: Acute (11) Hyperglycemia Code(s): R73.9 - Hyperglycemia, unspecified Status: Acute (12) History of hypertension Code(s): Z86.79 - Personal history of other diseases of the circulatory system Status: Chronic (13) Tobacco abuse Code(s): Z72.0 - Tobacco use Status: Chronic (14) History of COPD Code(s): Z87.09 - Personal history of other diseases of the respiratory system Status: Chronic - Assessment and Plan Plan: NEURO/Psych: -Propofol midazolam drip at 6 mg an hour and fentanyl drip at 150 mcg an hour for sedation and ventilator synchrony -Daily sedation vacation once respiratory status improves CT face revealed left orbital swelling/lateral. RESP: Acute hypoxemic respiratory Anaphylactic reaction to vancomycin Acute COPD exacerbation Bilateral pneumonia Coronary artery calcification Tobaccoism Left lower lobe 1.5 cm pulmonary nodule. Outpatient PET scan -Emergently intubated and placed on mechanical ventilation in the emergency department -ACV 16/600/5/40, Ventilator bundle -Albuterol/ipratropium aerosols every 4 hours with albuterol aerosols every 2 hours as needed dyspnea -Received total of 225 mg IV Solu-Medrol, continue 60 mg IV every 8 hours -Diphenhydramine l 50 mg IV every 6 hours, famotidine 20 mg IV every 12 hours for anaphylaxis -Vancomycin added to allergy -CT of the chest revealed pulmonary infiltrates. 1.5 cm left lower lobe pulmonary nodule. Outpatient PET scan -Start nicotine patch 7 mg daily. CV: History of hypertension -Normal saline IV fluids for liter bolus, and maintenance at 75 mL/h Home medications of lisinopril 40 mg daily metoprolol 200 mg twice daily GI: Hypoalbuminemia -Tube feeds started with Jevity 1.5 goal 55 cc an hour., IV famotidine for GI prophylaxis -Docusate sodium/senna 1 tablet twice daily for bowel regimen Renal/FEN/: Acute kidney injury -Monitor renal function closely. Place Shine catheter. -4 L IV fluid boluses and maintenance fluid at 75 mL/h Adequate urine output ID: Severe sepsis Multifocal pneumonia -Antibiotics cefepime antipseudomonal dose levofloxacin day #2. Added Linezolid secondary to blood culture positive for gram-positive cocci. Repeat blood cultures 04/07 -Blood culture positive for gram-positive cocci. Urine and sputum cultures all pending HEME: Thrombocytopenia -Monitor CBC, coags No indication for transfusion of blood products at this time. ENDO: Hyperglycemia -Electrolyte replacement per protocol -Sliding scale insulin Accu-Cheks every 6 hours to maintain euglycemia -Hyperglycemia may be stress related PROPH: -Bilateral lower extremity SCDs. Enoxaparin/famotidine LINES: -Utilize peripheral IVs, central line if needed Level 3 follow-up (1) Anaphylaxis Qualifiers: Encounter type: initial encounter Qualified Code(s): T78.2XXA - Anaphylactic shock, unspecified, initial encounter (3) Bilateral pneumonia Qualifiers: Pneumonia type: due to unspecified organism Lung location: unspecified part of lung Qualified Code(s): J18.9 - Pneumonia, unspecified organism (4) Allergic reaction caused by a drug Qualifiers: Encounter type: initial encounter Qualified Code(s): T78.40XA - Allergy, unspecified, initial encounter (5) Acute respiratory failure Qualifiers: Respiratory failure complication: unspecified whether with hypoxia or hypercapnia Qualified Code(s): J96.00 - Acute respiratory failure, unspecified whether with hypoxia or hypercapnia (7) Leukocytosis Qualifiers: Leukocytosis type: unspecified Qualified Code(s): D72.829 - Elevated white blood cell count, unspecified (8) Hypotension Qualifiers: Hypotension type: unspecified hypotension type Qualified Code(s): I95.9 - Hypotension, unspecified
--- NOTE | 2018-04-06 11:07 | P.DIET ---
Nutritional Evaluation Type of nutrition evaluation: initial Nutrition consult regarding: Tube Feeding Screening comments: 04/06/18 TF review Objective - Diagnosis respiratory failure, pneumonia, allergic reaction - Objective Body Mass Index: 26.3 % IBW: 108 (IBW = 178lb) Body Weight Used for Calculations: Actual (88kg) Energy Needs - Lower Range (kCal/kg): 25 Energy Needs - Upper Range (kCal/kg): 30 Lower Limit kCal/kg (kCals): 2,200 Upper Limit kCal/kg (kCals): 2,640 Lower Limit Protein Factor (Grams per Kg): 1.1 Upper Limit Protein Factor (Grams per Kg): 1.3 Lower Protein Needs (Protein): 97 Upper Protein Needs (Protein): 114 Dietitian Reviewed in Medical Record: Current diet, Curent medications, Intake & Output, Labs, Medical history Diet Order: NPO, TF'ing Objective Comments: PMH: COPD, hx of MRSA, HTN Meds: Fentanyl, novolin, versed Labs: BUN 39, [id number], POC glucose 127 Assessment Assessment: Pt currently intubated, sedated, and on mech vent. Per MD note, pt to receive continuous TF'ing of Jevity 1.5 w/ goal rate at 55mL/hr today. RD to recommend Jevity 1.5 @ 65mL/hr to provide 2340kcal 100g of protein, and 1186mL of free water to best meet pts nutritional needs. Advance TF'ing as tolerated. Continue to monitor TF tolerance, renal and glucose labs. Labs reviewed, dietitian following. Recommendations: 1. RD to recommend Jevity 1.5 @ 65mL/hr to best meet pts nutritional needs 2. Advance TF'ing as tolerated 3. Continue to monitor TF tolerance, renal and glucose labs 4. Dietitian following Dietitian to Monitor: Lab values, Renal labs, Glucose level, Intake & Output, Tube feeding tolerance, Weight change, Medical course
[2018-04-06 11:14] LABS: ABG Base Excess -3.9 mmol/L (-2-2); ABG PCO2 38 mmHg (38-42); ABG PO2 120 mmHG (61-120)
[2018-04-06] MEDS ORDERED: Albumin Human 5% Inj 500 ML IV.SIG ONE (11:30)
[2018-04-06] MEDS ORDERED: Senna/Docusate Sodium 8.6/50 MG Tablet PO ONE (11:45)
[2018-04-06] MEDS: Artificial Tears Opth Drops 15 ML Bottle EACH EYE SCH ×2 (14:10→22:10)
[2018-04-06] MEDS: Midazolam 100 MG/100 ML Inj 100 MG/100 ML BAG IV.CONT PRN (14:11)
--- NOTE | 2018-04-06 18:05 | ECHRPT ---
Indication: POSS SEPSIS, ENDOCARDITIS CONCLUSIONS Very technically difficult study The left ventricular systolic function is grossly normal on limited imaging. Doppler parameters are consistent with impaired left ventricular relaxtion (grade 1 diastolic dysfun ction). Trace mitral valve regurgitation. There is trace tricuspid valve regurgitation. BP: / HR: Rhythm: Sinus MEASUREMENTS (Male / Female) Normal Values Technical Quality:Very technically difficult study 2D ECHO LV Diastolic Diameter PLAX 4.3 cm 4.2 - 5.9 / 3.9 - 5.3 cm LV Systolic Diameter PLAX 2.9 cm IVS Diastolic Thickness 1.1 cm 0.6 - 1.0 / 0.6 - 0.9 cm LVPW Diastolic Thickness 1.1 cm 0.6 - 1.0 / 0.6 - 0.9 cm LV Relative Wall Thickness 0.5 RV Internal Dim ED PLAX 4.0 cm LVOT Diameter 2.2 cm Aortic Root Diameter 3.3 cm M-MODE AV Cusp Separation MM 2.5 cm DOPPLER AV Peak Velocity 102.0 cm/s AV Peak Gradient 4.2 mmHg AV Mean Gradient 3.0 mmHg AV Velocity Time Integral 15.4 cm LVOT Peak Velocity 75.9 cm/s LVOT Peak Gradient 2.3 mmHg LVOT Velocity Time Integral 11.3 cm AV Area Cont Eq vti 2.8 cm AV Area Cont Eq pk 2.8 cm Mitral E Point Velocity 67.6 cm/s Mitral A Point Velocity 81.9 cm/s Mitral E to A Ratio 0.8 LV E' Lateral Velocity 5.9 cm/s Mitral E to LV E' Lateral Ratio 11.4 LV E' Septal Velocity 4.3 cm/s Mitral E to LV E' Septal Ratio 15.8 TR Peak Velocity 252.0 cm/s TR Peak Gradient 25.4 mmHg Right Atrial Pressure 10.0 mmHg Pulmonary Artery Systolic Pressu 35.4 mmHg Right Ventricular Systolic Press 35.4 mmHg FINDINGS LEFT VENTRICLE Normal left ventricular size. The left ventricular systolic function is grossly normal on limited imaging. There was limited left ventricular wall motion assessment due to poor endocardial visualization. Doppler parameters are consistent with impaired left ventricular relaxtion (grade 1 diastolic dysfun ction). RIGHT VENTRICLE Grossly normal LEFT ATRIUM The left atrial size is normal. RIGHT ATRIUM The right atrium is not well visualized. ATRIAL SEPTUM No atrial level shunt is demonstrated by color flow Doppler interrogation. AORTA The aortic root and proximal ascending aorta are not well visualized. MITRAL VALVE The mitral valve is not well visualized. Mild mitral annular calcification. Trace mitral valve regurgitation. No mitral valve stenosis. AORTIC VALVE The aortic valve is not well visualized. No aortic valve regurgitation. No aortic valve stenosis. TRICUSPID VALVE The tricuspid valve is not well visualized. There is trace tricuspid valve regurgitation. The estimated pulmonary arterial pressure is 35.4 mmHg. PULMONARY VALVE The pulmonary valve is not well visualized. VESSELS The inferior vena cava is normal in size. PERICARDIUM No pericardial effusion. Grover Lorenz DO (Electronically Signed) Final Date:06 April 2018 18:04
--- NOTE | 2018-04-06 21:12 | ECG ---
Date Performed: 04/05/2018 Time Performed: 21:25:25 PTAGE: 72 years EKG: SINUS TACHYCARDIA LEFT ATRIAL ENLARGEMENT ABNORMAL ECG NO PREVIOUS TRACING DOCTOR: Oniel Mott Interpretating Date/Time 04/06/2018 21:10:46
[2018-04-07] MEDS: Insulin NovoLIN Regular Correctional Sugar Inj SQ SCH ×5 (01:35→23:27)
--- NOTE | 2018-04-07 04:25 | XR ---
EXAM DATE: 04/07/2018 4:21 AM EST AGE/SEX: 72 years / Male INDICATIONS: Short of breath. CLINICAL DATA: This is the patient's subsequent encounter. Patient reports that signs and symptoms h ave been present for 1 week and indicates a pain score of 0/10. MEDICAL/SURGICAL HISTORY: None. None. COMPARISON: [facility] [place], CHEST 1V SINGLE AP, 04/05/2018. . FINDINGS: A single AP view of the chest demonstrates no significant change. Bilateral pulmonary infiltrates aga in noted. These are most pronounced within the medial right upper lobe and lateral left lower lobe. T iny left effusion noted. Heart is normal in size. Tip the endotracheal tube 6 cm from the haseeb. Sergey ogastric tube courses off the inferior margin of the film. CONCLUSION: Unchanged bilateral pulmonary infiltrates and tiny left effusion. Electronically signed by: Leonard Washburn MD Board Certified Radiologist 04/07/2018 4:24 AM EST
[2018-04-07] MEDS: Artificial Tears Opth Drops 15 ML Bottle EACH EYE SCH ×3 (04:50→20:43)
[2018-04-07] MEDS: Oral Hygiene Kit OROPHARYNG SCH ×3 (04:50→16:33)
[2018-04-07] MEDS: Chlorhexidine Gluconate 2% 1 Pack (2 Cloths) TOPICAL SCH (04:50)
[2018-04-07] MEDS: MethylPREDNISolone Sod Succinate Inj 125 MG/2 ML Vial IV.PUSH SCH ×3 (05:07→22:01)
[2018-04-07] MEDS: Sod Chloride 0.9% Inj 1,000 ML IV.SIG SCH ×3 (05:16→20:43)
[2018-04-07 08:02] LABS: Baso % (Auto) 0.1 % (0.0-2.0); Hematocrit 37.2 % (39.0-51.0); Hemoglobin 12.5 gm/dL (13.0-17.0); Lymph # (Auto) 0.5 th/mm3 (1.0-4.8); Mean Corpuscular HGB Conc 33.7 % (32.0-36.0); Mean Corpuscular Hemoglobin 30.3 pg (27.0-34.0); Mean Platelet Volume 10.2 fL (7.0-11.0); Mono # (Auto) 0.5 th/mm3 (0.0-0.9); Neut # (Auto) 8.4 th/mm3 (1.8-7.7); Neut % (Auto) 89.9 % (16.0-70.0); Platelet Count 149 th/mm3 (150-450); Red Blood Count 4.14 mil/mm3 (4.50-5.90); Red Cell Distribution Width 14.7 % (11.6-17.2); White Blood Count 9.4 th/mm3 (4.0-11.0)
[2018-04-07 08:27] LABS: Albumin 2.2 g/dL (3.4-5.0); Anion Gap 7 meq/L (5-15); Aspartate Aminotransferase 21 U/L (15-37); Blood Urea Nitrogen 48 mg/dL (7-18); Calcium 8.6 mg/dL (8.5-10.1); Chloride 107 meq/L (98-107); Glomerular Filtration Rate 74 mL/min (>89); Glucose,Random 138 mg/dL (74-106); Potassium 3.6 meq/L (3.5-5.1); Sodium 139 meq/L (136-145)
[2018-04-07 08:33] LABS: Alanine Aminotransferase 14 U/L (12-78); Alkaline Phosphatase 40 U/L (45-117); Phosphorus 1.9 mg/dL (2.5-4.9); Total Protein 5.9 g/dL (6.4-8.2)
[2018-04-07] MEDS: Chlorhexidine 0.12% Oral Kit 15 ML UDC OROPHARYNG SCH ×2 (08:40→20:42)
[2018-04-07] MEDS: Famotidine PF Inj 20 MG/2 ML Vial IV.PUSH SCH ×2 (08:42→20:43)
[2018-04-07 09:14] LABS: Lymphocytes 4 % (9-44); Monocytes 6 % (0-8); Platelet Morphology Normal (Normal)
[2018-04-07 09:15] LABS: RBC Morphology Normal (Normal)
--- NOTE | 2018-04-07 10:11 | P.PNCC ---
Subjective Subjective Remarks/Hospital Course: Patient is 72-year-old male with past medical history of COPD, tobacco abuse and hypertension who came to the emergency room for shortness of breath via EMS. On EMS arrival saturation was in the 90s, but patient had significant shortness of breath and dyspnea. Patient received Solu-Medrol 125 mg IV and breathing treatments by EMS and was brought to the emergency department. In the emergency department patient received further breathing treatments and chest x-ray showed patchy infiltrate on bilateral lung fitzgerald. Initially maintaining oxygen saturation with nasal cannula. Initial blood pressure was 85 /65, improved with normal saline boluses. WBC count was 17.1. Patient was deemed septic from pneumonia and patient was ordered to receive vancomycin and Zosyn. While receiving vancomycin patient acutely decompensated became extremely short of breath and developed erythematous maculopapular rash involving face torso armpits and groin region. Emergently intubated and placed on mechanical ventilation by the ED physician. Received IV 50 mg Benadryl. Critical care medicine was requested to admit the patient. I evaluated the patient immediately in the emergency department. Patient is intubated on Versed and fentanyl infusion however he is very asynchronous with the vent triggering ventilator alarms. Severe bilateral expiratory wheezing heard on auscultation. He has extensive skin rash predominantly face forehead torso armpit and groins. Appears like patient had anaphylactic reaction to vancomycin complicated by COPD exacerbation and pneumonia. I have ordered additional Solu-Medrol 100 mg x1 scheduled Benadryl and famotidine, antibiotics with cefepime and Levaquin. Increase Versed infusion, add propofol and use neuromuscular paralysis as needed. Will request pharmacy to add vancomycin to allergy. ED physician Dr. Slater had noticed that patient had some swelling on the left side of his face on arrival, however the skin rash after vancomycin was started was new. Patient remains hypotensive has received 2 L of normal saline in the emergency department and no significant urine output. I have ordered additional 2 L normal saline bolus and maintenance fluid at 84 mL/h. Use Levophed as needed to keep map above 65 Subjective 04/06: Off norepinephrine drip. Currently resting in bed in no acute distress on midazolam and fentanyl drips. Start tube feeding today. 04/07: Remains sedated, intubated on mechanical ventilation. Blood cultures growing MRSA Objective Vital Signs / I&O: Vital Signs 04/06/18 10:30 04/06/18 10:40 04/06/18 10:50 Temperature Pulse Rate 109 H 108 H 107 H Respiratory Rate 24 25 H Blood Pressure 87/49 L 89/53 L 95/54 L Pulse Oximetry 99 99 99 04/06/18 11:00 04/06/18 11:10 04/06/18 11:20 Temperature Pulse Rate 106 H 104 H 105 H Respiratory Rate 24 Blood Pressure 97/51 L 99/50 L 101/52 L Pulse Oximetry 99 99 99 04/06/18 11:30 04/06/18 11:35 04/06/18 11:39 Temperature Pulse Rate 104 H 102 H Respiratory Rate 21 22 Blood Pressure 104/52 L Pulse Oximetry 99 99 04/06/18 11:40 04/06/18 11:41 04/06/18 11:50 Temperature Pulse Rate 104 H 104 H Respiratory Rate 16 24 Blood Pressure 98/50 L 98/55 L Pulse Oximetry 100 98 100 04/06/18 12:00 04/06/18 12:10 04/06/18 12:20 Temperature Pulse Rate 106 H 108 H 110 H Respiratory Rate 21 21 23 Blood Pressure 97/53 L 103/53 L 107/52 L Pulse Oximetry 99 100 99 04/06/18 12:30 04/06/18 12:40 04/06/18 12:50 Temperature Pulse Rate 110 H 111 H 109 H Respiratory Rate 22 24 19 Blood Pressure 108/52 L 81/42 L 80/42 L Pulse Oximetry 98 99 100 04/06/18 12:52 04/06/18 12:53 04/06/18 13:00 Temperature Pulse Rate 109 H 109 H 105 H Respiratory Rate 21 21 21 Blood Pressure 84/51 L 89/54 L Pulse Oximetry 100 100 91 L 04/06/18 13:09 04/06/18 13:10 04/06/18 13:20 Temperature Pulse Rate 105 H 106 H 108 H Respiratory Rate 19 20 20 Blood Pressure 98/56 L 100/55 L 102/50 L Pulse Oximetry 100 04/06/18 13:30 04/06/18 13:40 04/06/18 13:50 Temperature Pulse Rate 109 H 112 H 112 H Respiratory Rate 22 22 22 Blood Pressure 100/51 L 99/47 L 101/52 L Pulse Oximetry 100 100 100 04/06/18 14:00 04/06/18 14:10 04/06/18 14:20 Temperature Pulse Rate 110 H 111 H 110 H Respiratory Rate 21 21 20 Blood Pressure 96/50 L 91/50 L 95/52 L Pulse Oximetry 100 100 100 04/06/18 14:30 04/06/18 14:40 04/06/18 14:50 Temperature Pulse Rate 110 H 109 H 108 H Respiratory Rate 21 20 21 Blood Pressure 97/55 L 96/52 L 99/52 L Pulse Oximetry 99 100 100 04/06/18 15:00 04/06/18 15:10 04/06/18 15:20 Temperature Pulse Rate 106 H 109 H 109 H Respiratory Rate 25 H 21 20 Blood Pressure 104/53 L 97/52 L 101/53 L Pulse Oximetry 100 100 100 04/06/18 15:30 04/06/18 15:40 04/06/18 15:47 Temperature Pulse Rate 109 H 108 H Respiratory Rate 22 20 19 Blood Pressure 101/51 L 102/51 L Pulse Oximetry 99 100 99 04/06/18 15:49 04/06/18 15:50 04/06/18 16:00 Temperature Pulse Rate 109 H 109 H 109 H Respiratory Rate 20 19 20 Blood Pressure 105/54 L 92/52 L Pulse Oximetry 99 99 04/06/18 16:30 04/06/18 17:00 04/06/18 17:30 Temperature Pulse Rate 109 H 109 H 108 H Respiratory Rate 20 21 20 Blood Pressure 97/51 L 102/55 L 103/51 L Pulse Oximetry 100 100 99 04/06/18 18:00 04/06/18 18:30 04/06/18 19:00 Temperature 98.9 F Pulse Rate 107 H 106 H 108 H Respiratory Rate 20 20 20 Blood Pressure 103/55 L 106/54 L 108/52 L Pulse Oximetry 98 99 99 04/06/18 19:30 04/06/18 20:00 04/06/18 20:30 Temperature 98.9 F Pulse Rate 109 H 110 H 109 H Respiratory Rate 20 21 26 H Blood Pressure 120/54 L 114/54 L 108/55 L Pulse Oximetry 100 99 99 04/06/18 21:00 04/06/18 21:10 04/06/18 21:30 Temperature 98.9 F Pulse Rate 113 H 102 H 113 H Respiratory Rate 20 19 19 Blood Pressure 98/55 L 106/52 L Pulse Oximetry 97 100 97 04/06/18 22:00 04/06/18 22:30 04/06/18 23:00 Temperature 99.0 F 99.0 F Pulse Rate 111 H 113 H 115 H Respiratory Rate 18 21 22 Blood Pressure 100/51 L 101/49 L 101/51 L Pulse Oximetry 98 99 97 04/06/18 23:30 04/07/18 00:00 04/07/18 00:25 Temperature 99.0 F Pulse Rate 112 H 116 H 101 H Respiratory Rate 20 19 20 Blood Pressure 111/52 L 119/53 L Pulse Oximetry 98 98 100 04/07/18 00:30 04/07/18 01:00 04/07/18 01:30 Temperature 99.0 F Pulse Rate 114 H 116 H 117 H Respiratory Rate 19 17 21 Blood Pressure 111/53 L 117/57 L 120/56 L Pulse Oximetry 99 100 100 04/07/18 02:00 04/07/18 02:30 04/07/18 03:00 Temperature 98.7 F 98.8 F Pulse Rate 114 H 110 H 108 H Respiratory Rate 17 19 18 Blood Pressure 116/56 L 111/56 L 113/57 L Pulse Oximetry 100 100 100 04/07/18 03:30 04/07/18 03:53 04/07/18 04:00 Temperature Pulse Rate 104 H 103 H 103 H Respiratory Rate 15 16 16 Blood Pressure 124/56 L 126/59 L Pulse Oximetry 95 95 91 L 04/07/18 04:30 04/07/18 05:00 04/07/18 05:12 Temperature Pulse Rate 108 H 106 H 103 H Respiratory Rate 16 18 16 Blood Pressure 120/56 L 107/54 L 115/55 L Pulse Oximetry 100 98 100 04/07/18 05:30 04/07/18 06:00 04/07/18 06:30 Temperature Pulse Rate 105 H 103 H 102 H Respiratory Rate 19 16 19 Blood Pressure 116/55 L 125/59 L 128/60 Pulse Oximetry 100 88 L 94 L 04/07/18 07:00 04/07/18 07:40 04/07/18 07:52 Temperature Pulse Rate 104 H 107 H Respiratory Rate 16 16 19 Blood Pressure 131/61 Pulse Oximetry 95 100 Intake & Output 04/06/18 04/07/18 04/07/18 18:59 06:59 18:59 Intake Total 3310 / 3310 930 / 930 1000 / 1000 Output Total 700 / 700 450 / 450 Balance 2610 / 2610 480 / 480 1000 / 1000 Weight 88 kg Intake: IV 3310 / 3310 550 / 550 1000 / 1000 Versed Inj 100 mg In 100 ml @ 2 100 / 100 MG/HR 2 mls/hr IV.CONT TITRATE PRN Rx#:[id number] Diprivan 1000 mg/100 ml Inj 1, 10 / 10 000 mg In 100 ml @ 5 MCG/KG/MIN 2.517 mls/hr IV.CONT TITRATE PRN Rx#:[id number] Alburx 5% Inj 500 ML @ 250 mls/ 500 / 500 hr IV.SIG ONCE ONE Rx#:[id number] Maxipime Inj 2,000 MG In NS Inj 200 / 200 100 / 100 100 ML @ 200 mls/hr IV.SIG Q8H [facility] Rx#:[id number] Levaquin 750 mg Premix Inj 150 150 / 150 ML @ 100 mls/hr IV.SIG Q24H [facility] Rx#:[id number] Zyvox 600 mg Premix 300 ML @ 300 / 300 300 / 300 300 mls/hr IV.SIG Q12H [facility] Rx#: [id number] Levophed Inj 4 MG In NS Inj 246 200 / 200 ML @ 2 MCG/MIN 7.5 mls/hr IV. SIG TITRATE PRN Rx#:[id number] NS Inj 1,000 ML @ 75 mls/hr IV. 1999 / 1999 0 / 0 1000 / 1000 SIG .[id number] REPLACED BY [facility] Rx#:[id number] Oral 0 / 0 0 / 0 Tube Feeding 180 / 180 Water Bolus Amount 200 / 200 Output: Stool 0 / 0 0 / 0 Urine/Stool Mix 0 / 0 0 / 0 Urine Amount (Catheter) 700 / 700 450 / 450 Indwelling Urethral Catheter 700 / 700 450 / 450 Other: # Bowel Movements 0 0 # Incontinent Bowel Movements 0 0 Result Diagrams: 04/07/18 07:34 04/07/18 07:34 Imaging: Impressions Chest X-Ray 04/05/18 21:24 CONCLUSION: Multifocal bilateral pulmonary opacity suspicious for multifocal consolidation. Recommend radiographic follow-up to resolution. Chest X-Ray 04/05/18 22:49 CONCLUSION: Interval intubation. Unchanged bilateral pulmonary consolidations. Chest CT 04/06/18 00:00 CONCLUSION: 1. Patchy bilateral areas of consolidation most likely infectious in etiology. 2. 1.5 cm left lower lobe pulmonary nodule. Close follow-up of this nodule is suggested. Consideration could be made to an outpatient PET CT to further assess. 3. Coronary artery atherosclerotic calcifications. Face CT 04/06/18 00:00 CONCLUSION: 1. Small focal area of soft tissue swelling involving the lateral orbital margin on the left. No abscess. Chest X-Ray 04/07/18 06:00 CONCLUSION: Unchanged bilateral pulmonary infiltrates and tiny left effusion. Objective Remarks: GENERAL: This is a 72-year-old male currently orotracheally intubated SKIN: Warm and dry. HEAD: Atraumatic. Normocephalic. EYES: Pupils equal and round. No scleral icterus. No injection or drainage. ENT: No nasal bleeding or discharge. Mucous membranes pink and moist. NECK: Trachea midline. No JVD. CARDIOVASCULAR: Regular rate and rhythm. S1, S2. No S4. RESPIRATORY: No accessory muscle use. Clear to auscultation. Breath sounds equal bilaterally. GASTROINTESTINAL: Abdomen soft, non-tender, nondistended. Hepatic and splenic margins not palpable. MUSCULOSKELETAL: Extremities without clubbing, cyanosis, or edema. No obvious deformities. NEUROLOGICAL: Sedated on midazolam and fentanyl drips. Positive gag and cough. Moving all 4 extremities spontaneously on sedation vacation. Assessment and Plan - Problem List (1) Anaphylaxis Code(s): T78.2XXA - Anaphylactic shock, unspecified, initial encounter Status : Acute (2) COPD with acute exacerbation Code(s): J44.1 - Chronic obstructive pulmonary disease with (acute) exacerbation Status: Acute (3) Bilateral pneumonia Code(s): J18.9 - Pneumonia, unspecified organism Status: Acute (4) Allergic reaction caused by a drug Code(s): T78.40XA - Allergy, unspecified, initial encounter Status: Acute (5) Acute respiratory failure Code(s): J96.00 - Acute respiratory failure, unspecified whether with hypoxia or hypercapnia Status: Acute (6) Severe sepsis Code(s): A41.9 - Sepsis, unspecified organism; R65.20 - Severe sepsis without septic shock Status: Acute (7) Leukocytosis Code(s): D72.829 - Elevated white blood cell count, unspecified Status: Acute (8) Hypotension Code(s): I95.9 - Hypotension, unspecified Status: Acute (9) Acute kidney injury Code(s): N17.9 - Acute kidney failure, unspecified Status: Acute (10) Hyponatremia Code(s): E87.1 - Hypo-osmolality and hyponatremia Status: Acute (11) Hyperglycemia Code(s): R73.9 - Hyperglycemia, unspecified Status: Acute (12) History of hypertension Code(s): Z86.79 - Personal history of other diseases of the circulatory system Status: Chronic (13) Tobacco abuse Code(s): Z72.0 - Tobacco use Status: Chronic (14) History of COPD Code(s): Z87.09 - Personal history of other diseases of the respiratory system Status: Chronic - Assessment and Plan Plan: NEURO/Psych: -Propofol midazolam drip at 6 mg an hour and fentanyl drip at 150 mcg an hour for sedation and ventilator synchrony -Daily sedation vacation once respiratory status improves CT face revealed left orbital swelling/lateral. RESP: Acute hypoxemic respiratory Anaphylactic reaction to vancomycin Acute COPD exacerbation Bilateral pneumonia Coronary artery calcification Tobaccoism Left lower lobe 1.5 cm pulmonary nodule. Outpatient PET scan -Emergently intubated and placed on mechanical ventilation in the emergency department -ACV 16/600/5/40, Ventilator bundle -Albuterol/ipratropium aerosols every 4 hours with albuterol aerosols every 2 hours as needed dyspnea -Received total of 225 mg IV Solu-Medrol, continue 60 mg IV every 8 hours -Diphenhydramine l 50 mg IV every 6 hours, famotidine 20 mg IV every 12 hours for anaphylaxis -Vancomycin added to allergy -CT of the chest revealed pulmonary infiltrates. 1.5 cm left lower lobe pulmonary nodule. Outpatient PET scan -Start nicotine patch 7 mg daily. CV: History of hypertension -Normal saline IV fluids for liter bolus, and maintenance at 75 mL/h Home medications of lisinopril 40 mg daily metoprolol 200 mg twice daily GI: Hypoalbuminemia -Tube feeds started with Jevity 1.5 goal 55 cc an hour., IV famotidine for GI prophylaxis -Docusate sodium/senna 1 tablet twice daily for bowel regimen Renal/FEN/: Acute kidney injury -Monitor renal function closely. Place Shine catheter. -4 L IV fluid boluses and maintenance fluid at 75 mL/h Adequate urine output ID: Severe sepsis Multifocal pneumonia MRSA bacteremia -Antibiotics cefepime antipseudomonal dose levofloxacin. Added Linezolid secondary to blood culture positive for gram-positive cocci. Repeat blood cultures 04/07 -Blood culture positive for MRSA. Urine and sputum cultures all pending. ID consult requested for MRSA bacteremia/ Sepsis HEME: Thrombocytopenia -Monitor CBC, coags No indication for transfusion of blood products at this time. ENDO: Hyperglycemia -Electrolyte replacement per protocol -Sliding scale insulin Accu-Cheks every 6 hours to maintain euglycemia -Hyperglycemia may be stress related PROPH: -Bilateral lower extremity SCDs. Enoxaparin/famotidine LINES: -Utilize peripheral IVs, central line if needed Condition critical with sepsis, bacteremia, acute resp failure on mech vent. Time spent on critical care excluding procedures: 40 min (1) Anaphylaxis Qualifiers: Encounter type: initial encounter Qualified Code(s): T78.2XXA - Anaphylactic shock, unspecified, initial encounter (3) Bilateral pneumonia Qualifiers: Pneumonia type: due to unspecified organism Lung location: unspecified part of lung Qualified Code(s): J18.9 - Pneumonia, unspecified organism (4) Allergic reaction caused by a drug Qualifiers: Encounter type: initial encounter Qualified Code(s): T78.40XA - Allergy, unspecified, initial encounter (5) Acute respiratory failure Qualifiers: Respiratory failure complication: unspecified whether with hypoxia or hypercapnia Qualified Code(s): J96.00 - Acute respiratory failure, unspecified whether with hypoxia or hypercapnia (7) Leukocytosis Qualifiers: Leukocytosis type: unspecified Qualified Code(s): D72.829 - Elevated white blood cell count, unspecified (8) Hypotension Qualifiers: Hypotension type: unspecified hypotension type Qualified Code(s): I95.9 - Hypotension, unspecified
--- NOTE | 2018-04-07 13:00 | P.CONID ---
History of Present Illness Service: ID Consult date: 04/07/18 Requesting Physician: Hung Nagy Reason for Consult: MRSA sepsis Primary Care Provider: UNKNOWN Chief Complaint: Shortness of breath, anaphylaxis History of Present Illness: 72 yo toba+ male with COPD, HTN admitted with SOB rapidly deteriorated from resp stanpoint and required intubation, placement on mech vent'n today down to 35% FiO2 and PEEP 6, not much secretions Infiltrates on CT, multi focal He was started on broad spectrum abx (zosyn,, zyvox, levaquin) HIgh grade bacteremia, MRSA 4/4 very quick - at 1 day h/o vanco allergy Initially on pressors, but now off 2 D echo negative, but TV not well vis'd on limited echo Review of Systems unobtainable due to endotracheal tube, unobtainable due to mental status PMFSH - History History Provided By: Patient - Medical History Medical History: Medical History (Last Reviewed 04/07/18 @ 12:36 by Lilia Suarez MD) COPD (chronic obstructive pulmonary disease) History of MRSA infection Onset Date: ~04/06/18 Hypertension - Surgical History Surgical History: Surgical History (Last Reviewed 04/07/18 @ 12:36 by Lilia Suarez MD) Previous back surgery - Family History Family History: Family History (Last Updated 04/07/18 @ 12:36 by Lilia Suarez MD) Other Family history unobtainable - Social History I have reviewed the patient's Social History: Yes - Tobacco History Second Hand Smoke Exposure: Yes Tobacco Use In Past 30 Days: Yes Smoking Status: Current every day smoker Tobacco Type: Cigarettes - Alcohol History How Often Do You Have a Drink Containing Alcohol: Monthly or less - Travel History Recent Travel in the [facility] Within the Last 8 Weeks: No Recent Travel Out of the Country Within the Last 8 Weeks: No - Immunization History Tetanus Immunization: <5 Years Hx Influenza Vaccine This Season: No Medications and Allergies Active Medications: Active Medications Albuterol (Duoneb Neb (Denae)) 1 ampul NEB Q4HR NEB DENAE Last Admin: 04/07/18 11:58 Dose: 1 ampul Albuterol (Albuterol Neb (Prn)) 2.5 mg NEB Q2HR NEB PRN PRN Reason: DYSPNEA Artificial Tears (Tears Naturale Opth Drops) 1 drop EACH EYE Q8H DENAE Last Admin: 04/07/18 04:50 Dose: 1 drop Chlorhexidine Gluconate (Chlorhexidine 2% Cloth) 3 pack TOPICAL DAILY@0400 PRN PRN Reason: Extra cloth needed Stop: 04/11/18 03:59 Chlorhexidine Gluconate (Chlorhexidine 2% Cloth) 3 pack TOPICAL DAILY@0400 [facility] Stop: 04/11/18 03:59 Last Admin: 04/07/18 04:50 Dose: 3 pack Chlorhexidine Gluconate (Peridex 0.12% Oral Kit) 15 ml OROPHARYNG BID@0800, 2000 [facility] Last Admin: 04/07/18 08:40 Dose: 15 ml Dextrose (D50w Vial) 50 ml IV.PUSH UNSCH PRN PRN Reason: PER HYPOGLYCEMIA PROTOCOL Diphenhydramine HCl (Benadryl Inj) 50 mg IV.PUSH Q6H [facility] Last Admin: 04/07/18 05:07 Dose: 50 mg Enoxaparin Sodium (Lovenox Inj) 40 mg SQ Q24H [facility] Last Admin: 04/06/18 22:11 Dose: 40 mg Famotidine (Pepcid Pf Inj) 20 mg IV.PUSH Q12HR [facility] Last Admin: 04/07/18 08:42 Dose: 20 mg Glucagon (Glucagon Inj) 1 mg OTHER PRN PRN PRN Reason: for Hypoglycemia Protocol Piperacillin/Tazobactam/Dextrose (Zosyn 4.5 Gm Premix) 4.5 gm in 100 mls @ 200 mls/hr IV.SIG ONCE [facility] Last Infusion: 04/05/18 22:09 Dose: Infused Fentanyl (Fentanyl 10 Mcg/Ml Premix Drip) 2,500 mcg in 250 mls @ 5 mls/hr IV.SIG TITRATE PRN; Protocol PRN Reason: Per Protocol Last Titration: 04/07/18 00:00 Dose: 50 mcg/hr, 5 mls/hr Midazolam HCl (Versed Inj) 100 mg in 100 mls @ 2 mls/hr IV.CONT TITRATE PRN; Protocol PRN Reason: See protocol Last Titration: 04/07/18 00:00 Dose: 3 mg/hr, 3 mls/hr Cefepime HCl 2,000 mg/ Sodium (Chloride) 100 mls @ 200 mls/hr IV.SIG Q8H [facility] Last Admin: 04/07/18 08:39 Dose: 100 mls/hr Levofloxacin/Dextrose (Levaquin 750 Mg Premix Inj) 150 mls @ 100 mls/hr IV.SIG Q24H [facility] Last Infusion: 04/07/18 01:46 Dose: Infused Sodium Chloride (Ns Inj) 1,000 mls @ 75 mls/hr IV.SIG .[id number] [facility] Last Admin: 04/07/18 08:41 Dose: 75 mls/hr Linezolid (Zyvox 600 Mg Premix) 300 mls @ 300 mls/hr IV.SIG Q12H [facility] Last Infusion: 04/07/18 05:08 Dose: Infused Magnesium Sulfate 4 gm/ Sodium (Chloride) 100 mls @ 50 mls/hr IV.SIG UNSCH PRN PRN Reason: For Magnesium 0.9 - 1.1 mg/dL Magnesium Sulfate 2 gm/ Sodium (Chloride) 100 mls @ 50 mls/hr IV.SIG UNSCH PRN PRN Reason: For Magnesium 1.2 - 1.6 mg/dL Potassium Chloride (Kcl 40 Meq Premix Inj) 40 meq in 100 mls @ 50 mls/hr IV.SIG Q2H PRN PRN Reason: For Potassium 2.8 - 3.2 mEq/L Potassium Chloride (Kcl 20 Meq Premix Inj) 20 meq in 100 mls @ 50 mls/hr IV.SIG Q2H PRN PRN Reason: For Potassium 3.3 - 3.5 mEq/L Potassium Chloride (Kcl 20 Meq Premix Inj) 20 meq in 100 mls @ 50 mls/hr IV.SIG Q2H PRN PRN Reason: For Potassium 2.8 - 3.2 mEq/L Potassium Phosphate 30 mmol/ (Sodium Chloride) 260 mls @ 42 mls/hr IV.SIG UNSCH PRN PRN Reason: SEE LABEL COMMENTS Sodium Phosphate 30 mmol/ (Sodium Chloride) 260 mls @ 42 mls/hr IV.SIG UNSCH PRN PRN Reason: For Phosphorus < 2.5 mg/dL Potassium Chloride (Kcl 40 Meq Premix Inj) 40 meq in 100 mls @ 25 mls/hr IV.SIG UNSCH PRN PRN Reason: For Potassium 3.3 - 3.5 mEq/L Insulin Human Regular (Novolin R Correctional Sugar Inj) 0 units SQ Q6HR [facility]; Protocol Last Admin: 04/07/18 05:24 Dose: Not Given Magnesium Oxide (Mag-Ox) 800 mg PO UNSCH PRN PRN Reason: For Magnesium 1.2 - 1.6 mg/dL Methylprednisolone Sodium Succinate (Solumedrol Inj) 60 mg IV.PUSH Q8HR [facility] Last Admin: 04/07/18 05:07 Dose: 60 mg Miscellaneous Medication () 1 each OROPHARYNG 0000,0400,1200,1600 [facility] Last Admin: 04/07/18 04:50 Dose: 1 each Nicotine (Habitrol 14 Mg Patch.24 Hr) 1 patch T-DERMAL DAILY [facility] Last Admin: 04/07/18 08:38 Dose: 1 patch Patch Removal (Remove Old Patch) 1 each T-DERMAL DAILY [facility] Last Admin: 04/07/18 08:42 Dose: 1 each Potassium Bicarb/Potassium Chloride (K-Lyte Cl Eff) 50 meq PO UNSCH PRN PRN Reason: For Potassium 3.3 - 3.5 mEq/L Potassium Phosphate (K-Phos Original) 2,000 mg PO Q4H PRN PRN Reason: Phosphorus Less Than 2.5 mg/dL Potassium Phosphate (K-Phos Original) 2,000 mg PO UNSCH PRN PRN Reason: SEE LABEL COMMENTS Sterile Water (Free Water) 0 ml G-TUBE Q8HR [facility] Last Admin: 04/07/18 05:08 Dose: 100 ml Allergies Allergy/AdvReac Type Severity Reaction Status Date / Time bee venom protein (honey bee) Allergy Unknown Edema Verified 04/05/18 21:12 vancomycin Allergy Anaphylaxis Verified 04/05/18 23:33 Home Medications Medication Instructions Recorded Confirmed Type lisinopril 40 mg PO DAILY 04/05/18 04/05/18 History metoprolol tartrate 150 mg PO BID 04/05/18 04/05/18 History Exam Vital signs: Vital Signs 04/06/18 12:30 04/06/18 12:40 04/06/18 12:50 Temperature Pulse Rate 110 H 111 H 109 H Respiratory Rate 22 24 19 Blood Pressure 108/52 L 81/42 L 80/42 L Pulse Oximetry 98 99 100 04/06/18 12:52 04/06/18 12:53 04/06/18 13:00 Temperature Pulse Rate 109 H 109 H 105 H Respiratory Rate 21 21 21 Blood Pressure 84/51 L 89/54 L Pulse Oximetry 100 100 91 L 04/06/18 13:09 04/06/18 13:10 04/06/18 13:20 Temperature Pulse Rate 105 H 106 H 108 H Respiratory Rate 19 20 20 Blood Pressure 98/56 L 100/55 L 102/50 L Pulse Oximetry 100 04/06/18 13:30 04/06/18 13:40 04/06/18 13:50 Temperature Pulse Rate 109 H 112 H 112 H Respiratory Rate 22 22 22 Blood Pressure 100/51 L 99/47 L 101/52 L Pulse Oximetry 100 100 100 04/06/18 14:00 04/06/18 14:10 04/06/18 14:20 Temperature Pulse Rate 110 H 111 H 110 H Respiratory Rate 21 21 20 Blood Pressure 96/50 L 91/50 L 95/52 L Pulse Oximetry 100 100 100 04/06/18 14:30 04/06/18 14:40 04/06/18 14:50 Temperature Pulse Rate 110 H 109 H 108 H Respiratory Rate 21 20 21 Blood Pressure 97/55 L 96/52 L 99/52 L Pulse Oximetry 99 100 100 04/06/18 15:00 04/06/18 15:10 04/06/18 15:20 Temperature Pulse Rate 106 H 109 H 109 H Respiratory Rate 25 H 21 20 Blood Pressure 104/53 L 97/52 L 101/53 L Pulse Oximetry 100 100 100 04/06/18 15:30 04/06/18 15:40 04/06/18 15:47 Temperature Pulse Rate 109 H 108 H Respiratory Rate 22 20 19 Blood Pressure 101/51 L 102/51 L Pulse Oximetry 99 100 99 04/06/18 15:49 04/06/18 15:50 04/06/18 16:00 Temperature Pulse Rate 109 H 109 H 109 H Respiratory Rate 20 19 20 Blood Pressure 105/54 L 92/52 L Pulse Oximetry 99 99 04/06/18 16:30 04/06/18 17:00 04/06/18 17:30 Temperature Pulse Rate 109 H 109 H 108 H Respiratory Rate 20 21 20 Blood Pressure 97/51 L 102/55 L 103/51 L Pulse Oximetry 100 100 99 04/06/18 18:00 04/06/18 18:30 04/06/18 19:00 Temperature 98.9 F Pulse Rate 107 H 106 H 108 H Respiratory Rate 20 20 20 Blood Pressure 103/55 L 106/54 L 108/52 L Pulse Oximetry 98 99 99 04/06/18 19:30 04/06/18 20:00 04/06/18 20:30 Temperature 98.9 F Pulse Rate 109 H 110 H 109 H Respiratory Rate 20 21 26 H Blood Pressure 120/54 L 114/54 L 108/55 L Pulse Oximetry 100 99 99 04/06/18 21:00 04/06/18 21:10 04/06/18 21:30 Temperature 98.9 F Pulse Rate 113 H 102 H 113 H Respiratory Rate 20 19 19 Blood Pressure 98/55 L 106/52 L Pulse Oximetry 97 100 97 04/06/18 22:00 04/06/18 22:30 04/06/18 23:00 Temperature 99.0 F 99.0 F Pulse Rate 111 H 113 H 115 H Respiratory Rate 18 21 22 Blood Pressure 100/51 L 101/49 L 101/51 L Pulse Oximetry 98 99 97 04/06/18 23:30 04/07/18 00:00 04/07/18 00:25 Temperature 99.0 F Pulse Rate 112 H 116 H 101 H Respiratory Rate 20 19 20 Blood Pressure 111/52 L 119/53 L Pulse Oximetry 98 98 100 04/07/18 00:30 04/07/18 01:00 04/07/18 01:30 Temperature 99.0 F Pulse Rate 114 H 116 H 117 H Respiratory Rate 19 17 21 Blood Pressure 111/53 L 117/57 L 120/56 L Pulse Oximetry 99 100 100 04/07/18 02:00 04/07/18 02:30 04/07/18 03:00 Temperature 98.7 F 98.8 F Pulse Rate 114 H 110 H 108 H Respiratory Rate 17 19 18 Blood Pressure 116/56 L 111/56 L 113/57 L Pulse Oximetry 100 100 100 04/07/18 03:30 04/07/18 03:53 04/07/18 04:00 Temperature Pulse Rate 104 H 103 H 103 H Respiratory Rate 15 16 16 Blood Pressure 124/56 L 126/59 L Pulse Oximetry 95 95 91 L 04/07/18 04:30 04/07/18 05:00 04/07/18 05:12 Temperature Pulse Rate 108 H 106 H 103 H Respiratory Rate 16 18 16 Blood Pressure 120/56 L 107/54 L 115/55 L Pulse Oximetry 100 98 100 04/07/18 05:30 04/07/18 06:00 04/07/18 06:30 Temperature Pulse Rate 105 H 103 H 102 H Respiratory Rate 19 16 19 Blood Pressure 116/55 L 125/59 L 128/60 Pulse Oximetry 100 88 L 94 L 04/07/18 07:00 04/07/18 07:40 04/07/18 07:52 Temperature Pulse Rate 104 H 107 H Respiratory Rate 16 16 19 Blood Pressure 131/61 Pulse Oximetry 95 100 04/07/18 08:00 04/07/18 10:00 04/07/18 11:59 Temperature Pulse Rate 106 H 109 H 117 H Respiratory Rate 21 Blood Pressure Pulse Oximetry 04/07/18 12:00 Temperature Pulse Rate Respiratory Rate 20 Blood Pressure Pulse Oximetry 99 Intake & Output 04/06/18 04/07/18 04/07/18 18:59 06:59 18:59 Intake Total 3310 / 3310 930 / 930 1000 / 1000 Output Total 700 / 700 450 / 450 Balance 2610 / 2610 480 / 480 1000 / 1000 Weight 88 kg Intake: IV 3310 / 3310 550 / 550 1000 / 1000 Versed Inj 100 mg In 100 ml @ 2 100 / 100 MG/HR 2 mls/hr IV.CONT TITRATE PRN Rx#:[id number] Diprivan 1000 mg/100 ml Inj 1, 10 / 10 000 mg In 100 ml @ 5 MCG/KG/MIN 2.517 mls/hr IV.CONT TITRATE PRN Rx#:[id number] Alburx 5% Inj 500 ML @ 250 mls/ 500 / 500 hr IV.SIG ONCE ONE Rx#:[id number] Maxipime Inj 2,000 MG In NS Inj 200 / 200 100 / 100 100 ML @ 200 mls/hr IV.SIG Q8H DENAE Rx#:[id number] Levaquin 750 mg Premix Inj 150 150 / 150 ML @ 100 mls/hr IV.SIG Q24H DENAE Rx#:[id number] Zyvox 600 mg Premix 300 ML @ 300 / 300 300 / 300 300 mls/hr IV.SIG Q12H DENAE Rx#: [id number] Levophed Inj 4 MG In NS Inj 246 200 / 200 ML @ 2 MCG/MIN 7.5 mls/hr IV. SIG TITRATE PRN Rx#:[id number] NS Inj 1,000 ML @ 75 mls/hr IV. 1999 0 / 0 1000 / 1000 SIG .[id number] [facility] Rx#:[id number] Oral 0 / 0 0 / 0 Tube Feeding 180 / 180 Water Bolus Amount 200 / 200 Output: Stool 0 / 0 0 / 0 Urine/Stool Mix 0 / 0 0 / 0 Urine Amount (Catheter) 700 / 700 450 / 450 Indwelling Urethral Catheter 700 / 700 450 / 450 Other: # Bowel Movements 0 0 # Incontinent Bowel Movements 0 0 - Constitutional no acute distress, average body habitus - Routine HEENT Exam Head: Present: normocephalic, atraumatic Eye: Present: EOMI, PERRL ENT: Present: mucous membranes dry, oropharynx clear. Absent: dentition normal - Routine Neck Exam Present: supple. Absent: JVD, lymphadenopathy - Routine Respiratory Exam Present: patient mechanically ventilated, decreased breath sounds, CTA bilaterally - Routine Cardiovascular Exam Present: RRR, S1, S2. Absent: murmur, gallop, rubs - Routine Abdominal Exam Present: soft, normoactive bowel sounds. Absent: tenderness, distended, organomegaly, mass - Routine Extremities Exam Present: cyanosis (bl feet). Absent: clubbing, edema - Routine Skin Exam Present: intact, cyanosis. Absent: rash - Routine Neurological Exam sedated unresponsive - Routine Psychiatric Exam Present: unable to assess Results - Labs CBC & Chem 7: 04/07/18 07:34 04/07/18 07:34 Labs: Laboratory Results - last 24 hr 04/06/18 04/06/18 04/07/18 16:48 23:56 05:07 WBC RBC Hgb Hct MCV MCH MCHC RDW Plt Count MPV Prelim Diff (Auto) Neut % (Auto) Lymph % (Auto) Leake % (Auto) Eos % (Auto) Baso % (Auto) Neut # (Auto) Lymph # (Auto) Leake # (Auto) Eos # (Auto) Baso # (Auto) WBC Differential Seg Neuts % (Manual) Band Neuts % (Manual) Lymphocytes % (Manual) Monocytes % (Manual) Abs Neuts (Manual) Differential Comment Platelet Estimate Platelet Morphology RBC Morphology Sodium Potassium Chloride Carbon Dioxide Anion Gap BUN Creatinine Estimated GFR POC Glucose 178 H 130 H 133 H Random Glucose Calcium Phosphorus Magnesium Total Bilirubin AST ALT Alkaline Phosphatase Total Protein Albumin 04/07/18 04/07/18 07:34 07:34 WBC 9.4 RBC 4.14 L Hgb 12.5 L D Hct 37.2 L MCV 90.0 MCH 30.3 MCHC 33.7 RDW 14.7 Plt Count 149 L MPV 10.2 Prelim Diff (Auto) Slide review pending Neut % (Auto) 89.9 H Lymph % (Auto) 5.0 L Leake % (Auto) 5.0 Eos % (Auto) 0.0 Baso % (Auto) 0.1 Neut # (Auto) 8.4 H Lymph # (Auto) 0.5 L Leake # (Auto) 0.5 Eos # (Auto) 0.0 Baso # (Auto) 0.0 WBC Differential Manual diff final Seg Neuts % (Manual) 71 H Band Neuts % (Manual) 19 H Lymphocytes % (Manual) 4 L Monocytes % (Manual) 6 Abs Neuts (Manual) 8.5 H Differential Comment . Platelet Estimate Low L Platelet Morphology Normal RBC Morphology Normal Sodium 139 Potassium 3.6 Chloride 107 Carbon Dioxide 25.0 Anion Gap 7 BUN 48 H Creatinine 1.00 Estimated GFR 74 L POC Glucose Random Glucose 138 H Calcium 8.6 Phosphorus 1.9 L Magnesium 2.0 Total Bilirubin 0.5 AST 21 ALT 14 Alkaline Phosphatase 40 L Total Protein 5.9 L Albumin 2.2 L - Imaging Impressions Chest X-Ray 04/07/18 06:00 CONCLUSION: Unchanged bilateral pulmonary infiltrates and tiny left effusion. Assessment and Plan - Plan HIgh grade bacteremia with multifocal pulmonary infiltrates ? source - right sided endocarditis with secondary septic emboli vs bacteremia 2 /2 PNA Vanco allergy dc levaquine. zosyn cont zyvox add daptomycin, 6 mg /kg fu total CKs Will likely need DEEDEE If CT favouring septic emboli will need to treat as endocarditis dw radiologist: CT findigs not favouring septic emboli
[2018-04-07] MEDS: DAPTOmycin Inj 600 MG in Sodium Chlor 0.9% Inj 100 ML IV.SIG SCH (14:18)
[2018-04-07] MEDS: fentaNYL 10 mcg/mL Premix Drip 2,500 MCG/250 ML BAG IV.SIG PRN (14:20)
[2018-04-07] MEDS: Enoxaparin Inj 40 MG/0.4 ML Syringe SQ SCH (22:01)
[2018-04-08] MEDS: Oral Hygiene Kit OROPHARYNG SCH ×4 (00:09→17:41)
[2018-04-08] MEDS: Midazolam 100 MG/100 ML Inj 100 MG/100 ML BAG IV.CONT PRN (00:17)
[2018-04-08] MEDS: Chlorhexidine Gluconate 2% 1 Pack (2 Cloths) TOPICAL SCH (03:14)
[2018-04-08] MEDS: Artificial Tears Opth Drops 15 ML Bottle EACH EYE SCH ×3 (04:40→21:11)
[2018-04-08] MEDS: Sod Chloride 0.9% Inj 1,000 ML IV.SIG SCH ×2 (04:41→12:52)
[2018-04-08] MEDS: Insulin NovoLIN Regular Correctional Sugar Inj SQ SCH ×4 (05:09→23:09)
[2018-04-08] MEDS: MethylPREDNISolone Sod Succinate Inj 125 MG/2 ML Vial IV.PUSH SCH ×3 (05:16→21:11)
[2018-04-08] MEDS: Chlorhexidine 0.12% Oral Kit 15 ML UDC OROPHARYNG SCH ×2 (10:17→21:10)
[2018-04-08] MEDS: Famotidine PF Inj 20 MG/2 ML Vial IV.PUSH SCH ×2 (10:18→21:10)
--- NOTE | 2018-04-08 12:12 | P.PNCC ---
Subjective Subjective Remarks/Hospital Course: Patient is 72-year-old male with past medical history of COPD, tobacco abuse and hypertension who came to the emergency room for shortness of breath via EMS. On EMS arrival saturation was in the 90s, but patient had significant shortness of breath and dyspnea. Patient received Solu-Medrol 125 mg IV and breathing treatments by EMS and was brought to the emergency department. In the emergency department patient received further breathing treatments and chest x-ray showed patchy infiltrate on bilateral lung fitzgerald. Initially maintaining oxygen saturation with nasal cannula. Initial blood pressure was 85 /65, improved with normal saline boluses. WBC count was 17.1. Patient was deemed septic from pneumonia and patient was ordered to receive vancomycin and Zosyn. While receiving vancomycin patient acutely decompensated became extremely short of breath and developed erythematous maculopapular rash involving face torso armpits and groin region. Emergently intubated and placed on mechanical ventilation by the ED physician. Received IV 50 mg Benadryl. Critical care medicine was requested to admit the patient. I evaluated the patient immediately in the emergency department. Patient is intubated on Versed and fentanyl infusion however he is very asynchronous with the vent triggering ventilator alarms. Severe bilateral expiratory wheezing heard on auscultation. He has extensive skin rash predominantly face forehead torso armpit and groins. Appears like patient had anaphylactic reaction to vancomycin complicated by COPD exacerbation and pneumonia. I have ordered additional Solu-Medrol 100 mg x1 scheduled Benadryl and famotidine, antibiotics with cefepime and Levaquin. Increase Versed infusion, add propofol and use neuromuscular paralysis as needed. Will request pharmacy to add vancomycin to allergy. ED physician Dr. Slater had noticed that patient had some swelling on the left side of his face on arrival, however the skin rash after vancomycin was started was new. Patient remains hypotensive has received 2 L of normal saline in the emergency department and no significant urine output. I have ordered additional 2 L normal saline bolus and maintenance fluid at 84 mL/h. Use Levophed as needed to keep map above 65 Subjective 04/06: Off norepinephrine drip. Currently resting in bed in no acute distress on midazolam and fentanyl drips. Start tube feeding today. 04/07: Remains sedated, intubated on mechanical ventilation. Blood cultures growing MRSA 04/08: remains sedated and intubated. repeat cultures still growing MRSA 2/4 cultures. likely need to repeat BCx either today or tomorrow. agree with narrowing spectrum abx. performed DEEDEE at ID recommendation (need to r/o endocarditis), but no evidence of vegetations. remains hypoxic. off vasopressors today. Objective Vital Signs / I&O: Vital Signs 04/07/18 13:00 04/07/18 14:00 04/07/18 14:16 Temperature Pulse Rate 115 H 104 H Respiratory Rate 33 H 18 Blood Pressure 149/70 H 144/63 H Pulse Oximetry 99 99 96 04/07/18 15:00 04/07/18 15:56 04/07/18 16:00 Temperature 36.9 C Pulse Rate 101 H 97 H 98 H Respiratory Rate 17 16 17 Blood Pressure 146/60 H 150/62 H Pulse Oximetry 99 99 04/07/18 16:33 04/07/18 17:00 04/07/18 17:05 Temperature Pulse Rate 104 H Respiratory Rate 16 17 16 Blood Pressure 145/60 H Pulse Oximetry 99 99 04/07/18 18:00 04/07/18 19:00 04/07/18 20:00 Temperature Pulse Rate 101 H 97 H 94 H Respiratory Rate 17 Blood Pressure 142/58 H 141/60 H 139/60 Pulse Oximetry 99 99 99 04/07/18 20:08 04/07/18 21:00 04/07/18 22:00 Temperature Pulse Rate 94 H 101 H 105 H Respiratory Rate 16 Blood Pressure 144/62 H 148/62 H Pulse Oximetry 99 98 100 04/07/18 23:00 04/07/18 23:54 04/08/18 00:00 Temperature Pulse Rate 107 H 106 H 104 H Respiratory Rate 16 Blood Pressure 149/65 H 154/65 H Pulse Oximetry 99 99 100 04/08/18 01:00 04/08/18 02:00 04/08/18 03:00 Temperature Pulse Rate 103 H 98 H 92 H Respiratory Rate Blood Pressure 158/65 H 156/65 H 165/67 H Pulse Oximetry 99 99 99 04/08/18 04:00 04/08/18 04:05 04/08/18 06:00 Temperature Pulse Rate 89 91 H 93 H Respiratory Rate 18 Blood Pressure 166/67 H Pulse Oximetry 99 100 04/08/18 07:50 04/08/18 08:00 04/08/18 08:30 Temperature Pulse Rate 96 H 96 H Respiratory Rate 15 13 Blood Pressure Pulse Oximetry 100 04/08/18 11:12 04/08/18 11:13 Temperature Pulse Rate 100 H Respiratory Rate 16 17 Blood Pressure Pulse Oximetry 96 Intake & Output 04/07/18 04/08/18 04/08/18 18:59 06:59 18:59 Intake Total 2082 / 2082 1600 / 1600 0 / 0 Output Total 2240 / 2240 1900 / 1900 Balance -158 / -158 -300 / -300 0 / 0 Weight 93 kg Intake: IV 1850 / 1850 1400 / 1400 0 / 0 Maxipime Inj 2,000 MG In NS Inj 200 / 200 100 / 100 100 ML @ 200 mls/hr IV.SIG Q8H [facility] Rx#:[id number] Cubicin Inj 600 MG In NS Inj 100 / 100 100 ML @ 200 mls/hr IV.SIG Q24H [facility] Rx#:[id number] Zyvox 600 mg Premix 300 ML @ 300 / 300 300 / 300 300 mls/hr IV.SIG Q12H [facility] Rx#: [id number] NS Inj 1,000 ML @ 75 mls/hr IV. 1000 / 1000 1000 / 1000 SIG .[id number] [facility] Rx#:[id number] fentaNYL 10 mcg/mL Premix Drip 250 / 250 2,500 mcg In 250 ml @ 50 MCG/HR 5 mls/hr IV.SIG TITRATE PRN Rx #:[id number] Tube Feeding 32 / 32 0 / 0 Water Bolus Amount 200 / 200 200 / 200 Output: Stool 0 / 0 Urine/Stool Mix 0 / 0 Urine Amount (Catheter) 1490 / 1490 1900 / 1900 Condom 1200 / 1200 Indwelling Urethral Catheter 290 / 290 Straight 1900 / 1900 Gastric Drainage 750 / 750 Orogastric Tube 750 / 750 Other: # Bowel Movements 0 0 # Incontinent Bowel Movements 0 Result Diagrams: 04/07/18 07:34 04/07/18 07:34 Objective Remarks: GENERAL: This is an elderly male, orotracheally intubated, lying in bed. SKIN: Warm and dry. HEAD: Atraumatic. Normocephalic. EYES: Pupils equal and round. No scleral icterus. No injection or drainage. ENT: No nasal bleeding or discharge. Mucous membranes pink and moist. NECK: Trachea midline. No JVD. CARDIOVASCULAR: Regular rate and rhythm. sinus. RESPIRATORY: No accessory muscle use. equal chest rise. GASTROINTESTINAL: Abdomen soft, non-tender, nondistended. no guarding. MUSCULOSKELETAL: Extremities without clubbing, cyanosis, or edema. No obvious deformities. NEUROLOGICAL: Sedated on midazolam and fentanyl drips. Positive gag and cough. Moving all 4 extremities spontaneously on sedation vacation. Assessment and Plan - Problem List (1) Anaphylaxis Code(s): T78.2XXA - Anaphylactic shock, unspecified, initial encounter Status : Acute (2) COPD with acute exacerbation Code(s): J44.1 - Chronic obstructive pulmonary disease with (acute) exacerbation Status: Acute (3) Bilateral pneumonia Code(s): J18.9 - Pneumonia, unspecified organism Status: Acute (4) Allergic reaction caused by a drug Code(s): T78.40XA - Allergy, unspecified, initial encounter Status: Acute (5) Acute respiratory failure Code(s): J96.00 - Acute respiratory failure, unspecified whether with hypoxia or hypercapnia Status: Acute (6) Severe sepsis Code(s): A41.9 - Sepsis, unspecified organism; R65.20 - Severe sepsis without septic shock Status: Acute (7) Leukocytosis Code(s): D72.829 - Elevated white blood cell count, unspecified Status: Acute (8) Hypotension Code(s): I95.9 - Hypotension, unspecified Status: Acute (9) Acute kidney injury Code(s): N17.9 - Acute kidney failure, unspecified Status: Acute (10) Hyponatremia Code(s): E87.1 - Hypo-osmolality and hyponatremia Status: Acute (11) Hyperglycemia Code(s): R73.9 - Hyperglycemia, unspecified Status: Acute (12) History of hypertension Code(s): Z86.79 - Personal history of other diseases of the circulatory system Status: Chronic (13) Tobacco abuse Code(s): Z72.0 - Tobacco use Status: Chronic (14) History of COPD Code(s): Z87.09 - Personal history of other diseases of the respiratory system Status: Chronic - Assessment and Plan Plan: Assessment: 72yM with community acquired MRSA pneumonia and bacteremia and associated hypoxic respiratory failure and septic shock. continue abx and supportive care. unable to further wean mechanical ventilation today. NEURO/Psych: -Propofol midazolam drip at 6 mg an hour and fentanyl drip at 150 mcg an hour for sedation and ventilator synchrony -Daily sedation vacation once respiratory status improves CT face revealed left orbital swelling/lateral. RESP: Acute hypoxic respiratory failure Anaphylactic reaction to vancomycin Community acquired MRSA pneumonia Acute COPD exacerbation Bilateral pneumonia Coronary artery calcification Tobaccoism Left lower lobe 1.5 cm pulmonary nodule. Outpatient PET scan -Emergently intubated and placed on mechanical ventilation in the emergency department -Albuterol/ipratropium aerosols every 4 hours with albuterol aerosols every 2 hours as needed dyspnea -Received total of 225 mg IV Solu-Medrol, continue 60 mg IV every 8 hours -Vancomycin added to allergy -CT of the chest revealed pulmonary infiltrates. 1.5 cm left lower lobe pulmonary nodule. Outpatient PET scan -Start nicotine patch 7 mg daily. - abx as below CV: History of hypertension septic shock- improving. -saline lock ivf today. Home medications of lisinopril 40 mg daily metoprolol 200 mg twice daily GI: Hypoalbuminemia Acute protein calorie malnutrition - moderate -Tube feeds with Jevity 1.5 goal 55 cc an hour., IV famotidine for GI prophylaxis -Docusate sodium/senna 1 tablet twice daily for bowel regimen Renal/FEN/: Acute kidney injury- improving. -Monitor renal function closely. continue bardales- will likely need to diurese in the next 24h. -saline lock ivf. Adequate urine output ID: Septic shock- improving Multifocal pneumonia MRSA bacteremia -de-escalate to Zyvox and Daptomycin. - repeat blood cultures per ID - DEEDEE 04/08 without vegetations, normal EF. ID consult requested for MRSA bacteremia/ Sepsis HEME: Thrombocytopenia -Monitor CBC, coags No indication for transfusion of blood products at this time. - 4T score low probability HIT. will treat conservatively ENDO: Hyperglycemia -Electrolyte replacement per protocol -Sliding scale insulin Accu-Cheks every 6 hours to maintain euglycemia -Hyperglycemia may be stress related PROPH: -Bilateral lower extremity SCDs. Enoxaparin/famotidine LINES: -Utilize peripheral IVs, central line if needed Condition critical with sepsis, bacteremia, acute resp failure on mech vent. Time spent on critical care excluding procedures: 38 min (1) Anaphylaxis Qualifiers: Encounter type: initial encounter Qualified Code(s): T78.2XXA - Anaphylactic shock, unspecified, initial encounter (3) Bilateral pneumonia Qualifiers: Pneumonia type: due to unspecified organism Lung location: unspecified part of lung Qualified Code(s): J18.9 - Pneumonia, unspecified organism (4) Allergic reaction caused by a drug Qualifiers: Encounter type: initial encounter Qualified Code(s): T78.40XA - Allergy, unspecified, initial encounter (5) Acute respiratory failure Qualifiers: Respiratory failure complication: unspecified whether with hypoxia or hypercapnia Qualified Code(s): J96.00 - Acute respiratory failure, unspecified whether with hypoxia or hypercapnia (7) Leukocytosis Qualifiers: Leukocytosis type: unspecified Qualified Code(s): D72.829 - Elevated white blood cell count, unspecified (8) Hypotension Qualifiers: Hypotension type: unspecified hypotension type Qualified Code(s): I95.9 - Hypotension, unspecified
[2018-04-08] MEDS: DAPTOmycin Inj 600 MG in Sodium Chlor 0.9% Inj 100 ML IV.SIG SCH (13:13)
--- NOTE | 2018-04-08 15:28 | ECHRPT ---
Indication: Acute and subacute endocarditis, unspecified CONCLUSIONS A complete two-dimensional, color flow and Doppler transesophageal study is performed. 1) Normal biventricular function, EF 55-60% 2) mild concentric left ventricular hypertrophy 3) Grade I diastolic dysfunction 4) trace mitral regurgitation 5) [id number] tricuspid regurgitation 6) no evidence of intra-atrial shunting by color flow Doppler 7) no pericardial effusion 8) Adequate visualization of all cardiac valves in multiple views. No evidence of mass, thrombus, or vegetations. BP: / HR: Rhythm: Sinus MEASUREMENTS (Male / Female) Normal Values Technical Quality:Good 2D ECHO LVOT Diameter 2.2 cm Ascending Aorta Diameter 3.9 cm DOPPLER Mitral E Point Velocity 94.1 cm/s Mitral E to LV E' Septal 9.8 Mitral A Point Velocity 107.0 cm/s TR Peak Velocity 281.0 cm/s Mitral E to A Ratio 0.9 TR Peak Gradient 31.6 mmHg LV E' Lateral Velocity 7.4 cm/s Right Atrial Pressure 10.0 mmHg Mitral E to LV E' Lateral 12.8 Pulmonary Artery Systolic 41.6 mmHg LV E' Septal Velocity 9.7 cm/s Right Ventricular Systoli 41.6 mmHg Medications Complications Proc. Components FINDINGS LEFT VENTRICLE Mild concentric left ventricular hypertrophy. The left ventricular systolic function is normal with an estimated ejection fraction in the range of 55-60%. No regional wall motion abnormalities are present. Doppler parameters are consistent with impaired left ventricular relaxtion (grade 1 diastolic dysfun ction). RIGHT VENTRICLE Normal right ventricular size and systolic function. LEFT ATRIUM The left atrial size is normal. The left atrial pressure appears to be normal. The left atrial appendage appears to be morphologically normal. No evidence of thrombus in the left atrium by visualization, color flow Doppler, and pulse wave Dopp ler evaluation. RIGHT ATRIUM The right atrial size is normal. ATRIAL APPENDAGES Normal left atrial appendage size with no evidence of thrombus formation. The velocities in the left atrial appendage are normal. There is no spontaneous echo contrast seen in the left atrial appendage. No thrombus detected in the left atrial appendage. ATRIAL SEPTUM Normal atrial septal thickness without atrial level shunting by limited color doppler interrogation. AORTA The aortic root and proximal ascending aorta are normal in size on limited imaging. MITRAL VALVE Structurally normal mitral valve. Trace mitral valve regurgitation. There is adequate visualization of the mitral valve in multiple views. There is no evidence of mass , thrombus, or vegetation seen on the mitral valve. AORTIC VALVE Trileaflet aortic valve. No aortic valve stenosis or regurgitation. There is adequate visualization of the aortic valve in multiple views. Thre is no evidence of mass, thrombus, or vegetation seen on the mitral valve. TRICUSPID VALVE Structurally normal tricuspid valve. There is mild to moderate tricuspid valve regurgitation. There is estimated mild pulmonary hypertension present (range 40-50 mmHg). RVSP is estimated at 41 mmHg. The re is adequate visualization of the tricuspid valve in multiple views. There is no evidence of mass, th rombus, or vegetation seen on the tricuspid valve. VESSELS Normal pulmonary venous inflow pattern is observed. PULMONARY VALVE Structurally normal pulmonic valve. No pulmonary valve regurgitation or stenosis. There is adequate visualization of the pulmonic valve. There is no evidence of vegetation seen on the pulmonic valve. PERICADIUM No pericardial effusion. Lico Hernandez MD (Electronically Signed) Final Date:08 April 2018 15:27
--- NOTE | 2018-04-08 22:29 | P.PNID ---
Subjective Remarks: no fever repeat blood clx all positive again for [facility] DEEDEE negative for endocarditis- dw Dr Hernandez off pressors remains onvent Antibiotics: daPtomycin zyvox cefepime Allergies/Adverse Reactions: Allergies bee venom protein (honey bee) Allergy (Unknown, Verified 04/05/18 21:12) Edema vancomycin Allergy (Verified 04/05/18 23:33) Anaphylaxis Objective Vital Signs 04/07/18 23:00 04/07/18 23:54 04/08/18 00:00 Temperature Pulse Rate 107 H 106 H 104 H Respiratory Rate 16 Blood Pressure 149/65 H 154/65 H Pulse Oximetry 99 99 100 04/08/18 01:00 04/08/18 02:00 04/08/18 03:00 Temperature Pulse Rate 103 H 98 H 92 H Respiratory Rate Blood Pressure 158/65 H 156/65 H 165/67 H Pulse Oximetry 99 99 99 04/08/18 04:00 04/08/18 04:05 04/08/18 05:00 Temperature Pulse Rate 89 91 H 92 H Respiratory Rate 18 Blood Pressure 166/67 H 169/71 H Pulse Oximetry 99 100 100 04/08/18 06:00 04/08/18 07:00 04/08/18 07:50 Temperature Pulse Rate 93 H 90 Respiratory Rate 15 Blood Pressure 150/60 H 162/71 H Pulse Oximetry 97 99 100 04/08/18 08:00 04/08/18 08:30 04/08/18 09:00 Temperature Pulse Rate 98 H 96 H 97 H Respiratory Rate 13 Blood Pressure 153/61 H 158/67 H Pulse Oximetry 98 96 04/08/18 10:00 04/08/18 10:19 04/08/18 11:00 Temperature Pulse Rate 112 H 109 H 101 H Respiratory Rate Blood Pressure 171/74 H 163/67 H 161/65 H Pulse Oximetry 94 L 94 L 96 04/08/18 11:12 04/08/18 11:13 04/08/18 12:00 Temperature Pulse Rate 100 H 93 H Respiratory Rate 16 17 Blood Pressure 161/68 H Pulse Oximetry 96 97 04/08/18 12:37 04/08/18 12:40 04/08/18 12:42 Temperature Pulse Rate 99 H 98 H 98 H Respiratory Rate Blood Pressure 166/67 H 178/70 H 183/75 H Pulse Oximetry 96 97 97 04/08/18 12:44 04/08/18 12:46 04/08/18 12:48 Temperature Pulse Rate 97 H 96 H 96 H Respiratory Rate Blood Pressure 177/73 H 174/67 H 176/73 H Pulse Oximetry 97 96 96 04/08/18 12:50 04/08/18 12:52 04/08/18 12:54 Temperature Pulse Rate 103 H 100 H 100 H Respiratory Rate Blood Pressure 182/74 H 188/76 H 196/76 H Pulse Oximetry 98 97 97 04/08/18 12:56 04/08/18 12:58 04/08/18 13:00 Temperature Pulse Rate 97 H 97 H 101 H Respiratory Rate Blood Pressure 193/77 H 186/74 H 194/76 H Pulse Oximetry 97 97 97 04/08/18 13:02 04/08/18 13:05 04/08/18 13:06 Temperature Pulse Rate 96 H 96 H 95 H Respiratory Rate Blood Pressure 193/74 H 191/77 H 175/66 H Pulse Oximetry 96 96 96 04/08/18 14:00 04/08/18 14:37 04/08/18 15:00 Temperature Pulse Rate 93 H 88 89 Respiratory Rate 16 Blood Pressure Pulse Oximetry 97 98 98 04/08/18 16:00 04/08/18 16:58 04/08/18 17:00 Temperature Pulse Rate 88 87 87 Respiratory Rate Blood Pressure 161/67 H Pulse Oximetry 97 97 97 04/08/18 17:59 04/08/18 18:00 04/08/18 19:00 Temperature 77.5 F L Pulse Rate 83 84 81 Respiratory Rate Blood Pressure 163/72 H 164/69 H 156/69 H Pulse Oximetry 98 98 98 04/08/18 19:31 04/08/18 20:00 Temperature Pulse Rate 80 82 Respiratory Rate 17 Blood Pressure 151/69 H Pulse Oximetry 98 97 Intake & Output 04/08/18 04/08/18 04/09/18 06:59 18:59 06:59 Intake Total 1600 / 1600 1800 / 1800 250 / 250 Output Total 1900 / 1900 1950 / 1950 1600 / 1600 Balance -300 / -300 -150 / -150 -1350 / -1350 Weight 93 kg Intake: IV 1400 / 1400 1600 / 1600 250 / 250 Maxipime Inj 2,000 MG In NS Inj 100 / 100 200 / 200 100 ML @ 200 mls/hr IV.SIG Q8H [facility] Rx#:[id number] Cubicin Inj 600 MG In NS Inj 100 / 100 100 ML @ 200 mls/hr IV.SIG Q24H [facility] Rx#:[id number] Zyvox 600 mg Premix 300 ML @ 300 / 300 300 / 300 300 mls/hr IV.SIG Q12H [facility] Rx#: [id number] NS Inj 1,000 ML @ 75 mls/hr IV. 1000 / 1000 1000 / 1000 250 / 250 SIG .[id number] [facility] Rx#:[id number] Oral 0 / 0 Tube Feeding 0 / 0 0 / 0 Water Bolus Amount 200 / 200 200 / 200 Output: Stool 0 / 0 Urine/Stool Mix 0 / 0 Urine Amount (Catheter) 1900 / 1900 1200 / 1200 1600 / 1600 Condom 1200 / 1200 Indwelling Urethral Catheter 1600 / 1600 Straight 1900 / 1900 Gastric Drainage 750 / 750 Orogastric Tube 750 / 750 Other: # Bowel Movements 0 0 # Incontinent Bowel Movements 0 04/07/18 07:34 Blood - Peripheral Aerobic Blood Culture - Preliminary gram positive cocci 04/07/18 07:34 Blood - Peripheral Anaerobic Blood Culture - Preliminary gram positive cocci 04/06/18 04:30 Sputum - Endotracheal Gram Stain - Final 04/06/18 04:30 Sputum - Endotracheal Sputum Culture - Final S. aureus MRSA 04/07/18 07:25 Blood - Peripheral Aerobic Blood Culture - Preliminary gram positive cocci 04/07/18 07:25 Blood - Peripheral Anaerobic Blood Culture - Preliminary No growth in 1 day 04/05/18 21:30 Blood - Peripheral Aerobic Blood Culture - Final S. aureus MRSA 04/05/18 21:30 Blood - Peripheral Anaerobic Blood Culture - Final S. aureus MRSA 04/05/18 21:40 Blood - Peripheral Aerobic Blood Culture - Final S. aureus MRSA 04/05/18 21:40 Blood - Peripheral Anaerobic Blood Culture - Final S. aureus MRSA 04/05/18 00:45 Clean Catch Urine Urine Culture - Final No growth in 48 hours 04/05/18 21:55 Nasal Wash Influenza Types A,B Antigen - Final Negative for FLU A and B antigen Infection due to influenza A or B cannot be ruled out since the antigen present in the sample may be below the detection limit of the test. Lab - Hematology Results 04/07/18 07:34 WBC 9.4 RBC 4.14 L Hgb 12.5 L D Hct 37.2 L MCV 90.0 MCH 30.3 MCHC 33.7 RDW 14.7 Plt Count 149 L MPV 10.2 Prelim Diff (Auto) Slide review pending Neut % (Auto) 89.9 H Lymph % (Auto) 5.0 L Darke % (Auto) 5.0 Eos % (Auto) 0.0 Baso % (Auto) 0.1 Neut # (Auto) 8.4 H Lymph # (Auto) 0.5 L Darke # (Auto) 0.5 Eos # (Auto) 0.0 Baso # (Auto) 0.0 WBC Differential Manual diff final Seg Neuts % (Manual) 71 H Band Neuts % (Manual) 19 H Lymphocytes % (Manual) 4 L Monocytes % (Manual) 6 Abs Neuts (Manual) 8.5 H Differential Comment . Platelet Estimate Low L Platelet Morphology Normal RBC Morphology Normal Lab - Chemistry Results 04/06/18 04/07/18 04/07/18 23:56 05:07 07:34 Sodium 139 Potassium 3.6 Chloride 107 Carbon Dioxide 25.0 Anion Gap 7 BUN 48 H Creatinine 1.00 Estimated GFR 74 L POC Glucose 130 H 133 H Random Glucose 138 H Calcium 8.6 Phosphorus 1.9 L Magnesium 2.0 Total Bilirubin 0.5 AST 21 ALT 14 Alkaline Phosphatase 40 L Total Protein 5.9 L Albumin 2.2 L 04/07/18 04/07/18 04/07/18 12:38 17:59 23:13 Sodium Potassium Chloride Carbon Dioxide Anion Gap BUN Creatinine Estimated GFR POC Glucose 109 128 H 126 H Random Glucose Calcium Phosphorus Magnesium Total Bilirubin AST ALT Alkaline Phosphatase Total Protein Albumin 04/08/18 04/08/18 05:05 13:11 Sodium Potassium Chloride Carbon Dioxide Anion Gap BUN Creatinine Estimated GFR POC Glucose 141 H 148 H Random Glucose Calcium Phosphorus Magnesium Total Bilirubin AST ALT Alkaline Phosphatase Total Protein Albumin Imaging: ITS Impressions Chest CT 04/06/18 00:00 CONCLUSION: 1. Patchy bilateral areas of consolidation most likely infectious in etiology. 2. 1.5 cm left lower lobe pulmonary nodule. Close follow-up of this nodule is suggested. Consideration could be made to an outpatient PET CT to further assess. 3. Coronary artery atherosclerotic calcifications. Face CT 04/06/18 00:00 CONCLUSION: 1. Small focal area of soft tissue swelling involving the lateral orbital margin on the left. No abscess. Chest X-Ray 04/07/18 06:00 CONCLUSION: Unchanged bilateral pulmonary infiltrates and tiny left effusion. Physical Exam: GENERAL: NAD onvent SKIN: Warm and dry. No rash HEAD: Atraumatic. Normocephalic. EYES: Pupils equal and round. No scleral icterus. No injection or drainage. ENT: No nasal bleeding or discharge. Mucous membranes pink and moist. NECK: Trachea midline. No JVD. CARDIOVASCULAR: Regular rate and rhythm. RESPIRATORY: No accessory muscle use. scattered rhonchito auscultation. Breath sounds equal bilaterally. GASTROINTESTINAL: Abdomen soft, non-tender, nondistended. Hepatic and splenic margins not palpable. MUSCULOSKELETAL: Extremities without clubbing, mi.ld cyanosis, or edema. No obvious deformities. NEUROLOGICAL: sedated PSYCHIATRIC: unable to assess Assessment and Plan - Plan HIgh grade bacteremia with multifocal pulmonary infiltrates DEEDEE wo e/o endocarditis ? source - right sided endocarditis with secondary septic emboli vs bacteremia 2 /2 PNA Vanco allergy dc cefepime cont zyvox cont daptomycin, 6 mg /kg fu total CKs ceretec to look for occult abscesses dw Dr Mónica Hernandez
[2018-04-08] MEDS: Enoxaparin Inj 40 MG/0.4 ML Syringe SQ SCH (22:56)
[2018-04-09] MEDS: Oral Hygiene Kit OROPHARYNG SCH ×5 (00:35→23:58)
[2018-04-09] MEDS: Chlorhexidine Gluconate 2% 1 Pack (2 Cloths) TOPICAL SCH (06:43)
[2018-04-09] MEDS: MethylPREDNISolone Sod Succinate Inj 125 MG/2 ML Vial IV.PUSH SCH ×3 (06:43→22:01)
[2018-04-09] MEDS: Artificial Tears Opth Drops 15 ML Bottle EACH EYE SCH ×3 (06:44→19:59)
[2018-04-09] MEDS: Insulin NovoLIN Regular Correctional Sugar Inj SQ SCH ×4 (06:44→23:41)
[2018-04-09] MEDS: Midazolam 100 MG/100 ML Inj 100 MG/100 ML BAG IV.CONT PRN (07:21)
[2018-04-09 08:13] LABS: Hematocrit 35.2 % (39.0-51.0); Mean Corpuscular HGB Conc 34.1 % (32.0-36.0); Mean Corpuscular Hemoglobin 30.5 pg (27.0-34.0); Mean Corpuscular Volume 89.4 fL (80.0-100.0); Mean Platelet Volume 10.1 fL (7.0-11.0); Platelet Count 164 th/mm3 (150-450); Red Blood Count 3.93 mil/mm3 (4.50-5.90); Red Cell Distribution Width 14.9 % (11.6-17.2); White Blood Count 14.9 th/mm3 (4.0-11.0)
[2018-04-09 08:42] LABS: Anion Gap 5 meq/L (5-15); Blood Urea Nitrogen 36 mg/dL (7-18); Carbon Dioxide 30.1 meq/L (21.0-32.0); Chloride 111 meq/L (98-107); Creatine Kinase 112 U/L (39-308); Glomerular Filtration Rate Greater Than 89 mL/min (>89); Glucose,Random 185 mg/dL (74-106); Magnesium 2.2 mg/dL (1.5-2.5); Phosphorus 1.5 mg/dL (2.5-4.9); Potassium 3.4 meq/L (3.5-5.1); Sodium 146 meq/L (136-145)
[2018-04-09] MEDS: Chlorhexidine 0.12% Oral Kit 15 ML UDC OROPHARYNG SCH ×2 (09:24→19:59)
[2018-04-09] MEDS: Famotidine PF Inj 20 MG/2 ML Vial IV.PUSH SCH ×2 (09:24→19:59)
[2018-04-09] MEDS: fentaNYL 10 mcg/mL Premix Drip 2,500 MCG/250 ML BAG IV.SIG PRN (09:49)
[2018-04-09] MEDS: DAPTOmycin Inj 600 MG in Sodium Chlor 0.9% Inj 100 ML IV.SIG SCH (13:00)
--- NOTE | 2018-04-09 13:44 | P.PNCC ---
Subjective Subjective Remarks/Hospital Course: Patient is 72-year-old male with past medical history of COPD, tobacco abuse and hypertension who came to the emergency room for shortness of breath via EMS. On EMS arrival saturation was in the 90s, but patient had significant shortness of breath and dyspnea. Patient received Solu-Medrol 125 mg IV and breathing treatments by EMS and was brought to the emergency department. In the emergency department patient received further breathing treatments and chest x-ray showed patchy infiltrate on bilateral lung fitzgerald. Initially maintaining oxygen saturation with nasal cannula. Initial blood pressure was 85 /65, improved with normal saline boluses. WBC count was 17.1. Patient was deemed septic from pneumonia and patient was ordered to receive vancomycin and Zosyn. While receiving vancomycin patient acutely decompensated became extremely short of breath and developed erythematous maculopapular rash involving face torso armpits and groin region. Emergently intubated and placed on mechanical ventilation by the ED physician. Received IV 50 mg Benadryl. Critical care medicine was requested to admit the patient. I evaluated the patient immediately in the emergency department. Patient is intubated on Versed and fentanyl infusion however he is very asynchronous with the vent triggering ventilator alarms. Severe bilateral expiratory wheezing heard on auscultation. He has extensive skin rash predominantly face forehead torso armpit and groins. Appears like patient had anaphylactic reaction to vancomycin complicated by COPD exacerbation and pneumonia. I have ordered additional Solu-Medrol 100 mg x1 scheduled Benadryl and famotidine, antibiotics with cefepime and Levaquin. Increase Versed infusion, add propofol and use neuromuscular paralysis as needed. Will request pharmacy to add vancomycin to allergy. ED physician Dr. Slater had noticed that patient had some swelling on the left side of his face on arrival, however the skin rash after vancomycin was started was new. Patient remains hypotensive has received 2 L of normal saline in the emergency department and no significant urine output. I have ordered additional 2 L normal saline bolus and maintenance fluid at 84 mL/h. Use Levophed as needed to keep map above 65 Subjective 04/06: Off norepinephrine drip. Currently resting in bed in no acute distress on midazolam and fentanyl drips. Start tube feeding today. 04/07: Remains sedated, intubated on mechanical ventilation. Blood cultures growing MRSA 04/08: remains sedated and intubated. repeat cultures still growing MRSA 2/4 cultures. likely need to repeat BCx either today or tomorrow. agree with narrowing spectrum abx. performed DEEDEE at ID recommendation (need to r/o endocarditis), but no evidence of vegetations. remains hypoxic. off vasopressors today. 04/09: adequate auto-diuresis overnight. off vasopressors. on sedation vacation. hypoxia improving. Objective Vital Signs / I&O: Vital Signs 04/08/18 14:00 04/08/18 14:37 04/08/18 15:00 Temperature Pulse Rate 93 H 88 89 Respiratory Rate 16 Blood Pressure Pulse Oximetry 97 98 98 04/08/18 16:00 04/08/18 16:58 04/08/18 17:00 Temperature Pulse Rate 88 87 87 Respiratory Rate Blood Pressure 161/67 H Pulse Oximetry 97 97 97 04/08/18 17:59 04/08/18 18:00 04/08/18 19:00 Temperature 25.3 C L Pulse Rate 83 84 81 Respiratory Rate Blood Pressure 163/72 H 164/69 H 156/69 H Pulse Oximetry 98 98 98 04/08/18 19:31 04/08/18 20:00 04/08/18 21:00 Temperature Pulse Rate 80 82 84 Respiratory Rate 17 Blood Pressure 151/69 H 154/69 H Pulse Oximetry 98 97 96 04/08/18 22:00 04/08/18 23:00 04/08/18 23:31 Temperature Pulse Rate 85 82 86 Respiratory Rate 16 Blood Pressure 153/65 H 152/68 H Pulse Oximetry 96 98 95 04/09/18 00:00 04/09/18 01:00 04/09/18 02:00 Temperature Pulse Rate 89 86 83 Respiratory Rate Blood Pressure 155/67 H 154/65 H 157/68 H Pulse Oximetry 96 95 97 04/09/18 02:53 04/09/18 03:00 04/09/18 03:45 Temperature Pulse Rate 76 78 Respiratory Rate 17 16 Blood Pressure 156/71 H Pulse Oximetry 98 97 04/09/18 04:00 04/09/18 05:00 04/09/18 06:00 Temperature Pulse Rate 94 H 87 81 Respiratory Rate Blood Pressure 143/62 H 148/64 H Pulse Oximetry 94 L 97 04/09/18 07:57 04/09/18 08:00 04/09/18 10:00 Temperature 36.3 C L Pulse Rate 79 81 92 H Respiratory Rate 16 Blood Pressure 146/67 H Pulse Oximetry 99 98 04/09/18 10:44 04/09/18 10:45 04/09/18 12:00 Temperature 36.9 C Pulse Rate 95 H 80 Respiratory Rate 18 18 Blood Pressure 157/70 H Pulse Oximetry 99 99 Intake & Output 04/08/18 04/09/18 04/09/18 18:59 06:59 18:59 Intake Total 1800 / 1800 937 / 937 750 / 750 Output Total 1950 / 1950 2600 / 2600 Balance -150 / -150 -1663 / -1663 750 / 750 Weight 93.5 kg Intake: IV 1600 / 1600 650 / 650 750 / 750 Versed Inj 100 mg In 100 ml @ 2 100 / 100 MG/HR 2 mls/hr IV.CONT TITRATE PRN Rx#:[id number] Maxipime Inj 2,000 MG In NS Inj 200 / 200 100 / 100 100 / 100 100 ML @ 200 mls/hr IV.SIG Q8H [facility] Rx#:[id number] Cubicin Inj 600 MG In NS Inj 100 / 100 100 ML @ 200 mls/hr IV.SIG Q24H [facility] Rx#:[id number] Zyvox 600 mg Premix 300 ML @ 300 / 300 300 / 300 300 / 300 300 mls/hr IV.SIG Q12H [facility] Rx#: [id number] NS Inj 1,000 ML @ 75 mls/hr IV. 1000 / 1000 250 / 250 SIG .[id number] [facility] Rx#:[id number] fentaNYL 10 mcg/mL Premix Drip 250 / 250 2,500 mcg In 250 ml @ 50 MCG/HR 5 mls/hr IV.SIG TITRATE PRN Rx #:[id number] Oral 0 / 0 Tube Feeding 0 / 0 237 / 237 Water Bolus Amount 200 / 200 50 / 50 Output: Stool 0 / 0 Urine/Stool Mix 0 / 0 Urine Amount (Catheter) 1200 / 1200 2600 / 2600 Condom 1200 / 1200 Indwelling Urethral Catheter 2600 / 2600 Gastric Drainage 750 / 750 Orogastric Tube 750 / 750 Other: # Bowel Movements 0 # Incontinent Bowel Movements 0 Result Diagrams: 04/09/18 07:04 04/09/18 07:54 Objective Remarks: GENERAL: This is an elderly male, orotracheally intubated, lying in bed. SKIN: Warm and dry. HEAD: Atraumatic. Normocephalic. EYES: Pupils equal and round. No scleral icterus. No injection or drainage. ENT: No nasal bleeding or discharge. Mucous membranes pink and moist. NECK: Trachea midline. No JVD. CARDIOVASCULAR: Regular rate and rhythm. sinus. RESPIRATORY: No accessory muscle use. equal chest rise. GASTROINTESTINAL: Abdomen soft, non-tender, nondistended. no guarding. MUSCULOSKELETAL: Extremities without clubbing, cyanosis, or edema. No obvious deformities. NEUROLOGICAL: Sedated on midazolam and fentanyl drips. Positive gag and cough. Moving all 4 extremities spontaneously on sedation vacation. Assessment and Plan - Problem List (1) Anaphylaxis Code(s): T78.2XXA - Anaphylactic shock, unspecified, initial encounter Status : Acute (2) COPD with acute exacerbation Code(s): J44.1 - Chronic obstructive pulmonary disease with (acute) exacerbation Status: Acute (3) Bilateral pneumonia Code(s): J18.9 - Pneumonia, unspecified organism Status: Acute (4) Allergic reaction caused by a drug Code(s): T78.40XA - Allergy, unspecified, initial encounter Status: Acute (5) Acute respiratory failure Code(s): J96.00 - Acute respiratory failure, unspecified whether with hypoxia or hypercapnia Status: Acute (6) Severe sepsis Code(s): A41.9 - Sepsis, unspecified organism; R65.20 - Severe sepsis without septic shock Status: Acute (7) Leukocytosis Code(s): D72.829 - Elevated white blood cell count, unspecified Status: Acute (8) Hypotension Code(s): I95.9 - Hypotension, unspecified Status: Acute (9) Acute kidney injury Code(s): N17.9 - Acute kidney failure, unspecified Status: Acute (10) Hyponatremia Code(s): E87.1 - Hypo-osmolality and hyponatremia Status: Acute (11) Hyperglycemia Code(s): R73.9 - Hyperglycemia, unspecified Status: Acute (12) History of hypertension Code(s): Z86.79 - Personal history of other diseases of the circulatory system Status: Chronic (13) Tobacco abuse Code(s): Z72.0 - Tobacco use Status: Chronic (14) History of COPD Code(s): Z87.09 - Personal history of other diseases of the respiratory system Status: Chronic - Assessment and Plan Plan: Assessment: 72yM with community acquired MRSA pneumonia and bacteremia and associated hypoxic respiratory failure and septic shock. continue abx and supportive care. begin daily SBTs. NEURO/Psych: Acute metabolic encephalopathy - propofol, fentanyl for goal RASS -2 d/c midazolam drip -Daily sedation vacation once respiratory status improves CT face revealed left orbital swelling/lateral. RESP: Acute hypoxic respiratory failure- slowly improving Anaphylactic reaction to vancomycin Community acquired MRSA pneumonia Acute COPD exacerbation Bilateral pneumonia Coronary artery calcification Tobaccoism Left lower lobe 1.5 cm pulmonary nodule. Outpatient PET scan -Emergently intubated and placed on mechanical ventilation in the emergency department -Albuterol/ipratropium aerosols every 4 hours with albuterol aerosols every 2 hours as needed dyspnea -Received total of 225 mg IV Solu-Medrol, continue 60 mg IV every 8 hours -Vancomycin added to allergy -CT of the chest revealed pulmonary infiltrates. 1.5 cm left lower lobe pulmonary nodule. Outpatient PET scan -nicotine patch 7 mg daily. - abx as below CV: History of hypertension septic shock- resolved Home medications of lisinopril 40 mg daily metoprolol 200 mg twice daily GI: Hypoalbuminemia Acute protein calorie malnutrition - moderate -Tube feeds with Jevity 1.5 goal 55 cc an hour., IV famotidine for GI prophylaxis -Docusate sodium/senna 1 tablet twice daily for bowel regimen Renal/FEN/: Acute kidney injury- improving. Acute urinary retention Hypernatremia -Monitor renal function closely. continue bardales- has had 2 episodes of urinary retention. will likely need to start Flowmax for 48h before repeat trial of bardales discontinuation start lasix 20mg iv q8h increase free water to 300mL po q4h ID: Septic shock- resolved Multifocal pneumonia MRSA bacteremia -de-escalate to Zyvox and Daptomycin. - repeat blood cultures today - DEEDEE 04/08 without vegetations, normal EF ID consult requested for MRSA bacteremia/ Sepsis HEME: Thrombocytopenia -Monitor CBC, coags No indication for transfusion of blood products at this time. - 4T score low probability HIT. will treat conservatively ENDO: Hyperglycemia -Electrolyte replacement per protocol -Sliding scale insulin Accu-Cheks every 6 hours to maintain euglycemia -Hyperglycemia may be stress related PROPH: -Bilateral lower extremity SCDs. Enoxaparin/famotidine LINES: -Utilize peripheral IVs, central line if needed Condition critical with sepsis, bacteremia, acute resp failure on mech vent. Time spent on critical care excluding procedures: 31 min (1) Anaphylaxis Qualifiers: Encounter type: initial encounter Qualified Code(s): T78.2XXA - Anaphylactic shock, unspecified, initial encounter (3) Bilateral pneumonia Qualifiers: Pneumonia type: due to unspecified organism Lung location: unspecified part of lung Qualified Code(s): J18.9 - Pneumonia, unspecified organism (4) Allergic reaction caused by a drug Qualifiers: Encounter type: initial encounter Qualified Code(s): T78.40XA - Allergy, unspecified, initial encounter (5) Acute respiratory failure Qualifiers: Respiratory failure complication: unspecified whether with hypoxia or hypercapnia Qualified Code(s): J96.00 - Acute respiratory failure, unspecified whether with hypoxia or hypercapnia (7) Leukocytosis Qualifiers: Leukocytosis type: unspecified Qualified Code(s): D72.829 - Elevated white blood cell count, unspecified (8) Hypotension Qualifiers: Hypotension type: unspecified hypotension type Qualified Code(s): I95.9 - Hypotension, unspecified
--- NOTE | 2018-04-09 18:30 | P.PNID ---
Subjective Remarks: no fever repeat blood clx all positive again for [facility] DEEDEE negative for endocarditis- dw Dr Hernandez off pressors remains on vent I have to cancell Ceretec study 2/2 problems tagging; dw nuclear tech Antibiotics: daPtomycin zyvox Allergies/Adverse Reactions: Allergies bee venom protein (honey bee) Allergy (Unknown, Verified 04/05/18 21:12) Edema vancomycin Allergy (Verified 04/05/18 23:33) Anaphylaxis Objective Vital Signs 04/08/18 19:00 04/08/18 19:31 04/08/18 20:00 Temperature 77.5 F L Pulse Rate 81 80 82 Respiratory Rate 17 Blood Pressure 156/69 H 151/69 H Pulse Oximetry 98 98 97 04/08/18 21:00 04/08/18 22:00 04/08/18 23:00 Temperature Pulse Rate 84 85 82 Respiratory Rate Blood Pressure 154/69 H 153/65 H 152/68 H Pulse Oximetry 96 96 98 04/08/18 23:31 04/09/18 00:00 04/09/18 01:00 Temperature Pulse Rate 86 89 86 Respiratory Rate 16 Blood Pressure 155/67 H 154/65 H Pulse Oximetry 95 96 95 04/09/18 02:00 04/09/18 02:53 04/09/18 03:00 Temperature Pulse Rate 83 76 78 Respiratory Rate 17 Blood Pressure 157/68 H 156/71 H Pulse Oximetry 97 98 04/09/18 03:45 04/09/18 04:00 04/09/18 05:00 Temperature Pulse Rate 94 H 87 Respiratory Rate 16 Blood Pressure 143/62 H 148/64 H Pulse Oximetry 97 94 L 97 04/09/18 06:00 04/09/18 07:57 04/09/18 08:00 Temperature 97.4 F L Pulse Rate 81 79 81 Respiratory Rate 16 Blood Pressure 146/67 H Pulse Oximetry 99 98 04/09/18 10:00 04/09/18 10:44 04/09/18 10:45 Temperature Pulse Rate 92 H 95 H Respiratory Rate 18 18 Blood Pressure Pulse Oximetry 99 04/09/18 12:00 04/09/18 14:00 04/09/18 15:14 Temperature 98.4 F Pulse Rate 80 81 93 H Respiratory Rate 16 Blood Pressure 157/70 H Pulse Oximetry 99 96 04/09/18 16:00 04/09/18 18:00 Temperature 98.0 F Pulse Rate 87 80 Respiratory Rate 16 Blood Pressure 149/66 H Pulse Oximetry 93 L Intake & Output 04/08/18 04/09/18 04/09/18 18:59 06:59 18:59 Intake Total 1800 / 1800 937 / 937 1561 / 1561 Output Total 1950 / 1950 2600 / 2600 1000 / 1000 Balance -150 / -150 -1663 / -1663 561 / 561 Weight 93.5 kg Intake: IV 1600 / 1600 650 / 650 958 / 958 Versed Inj 100 mg In 100 ml @ 2 100 / 100 MG/HR 2 mls/hr IV.CONT TITRATE PRN Rx#:[id number] Maxipime Inj 2,000 MG In NS Inj 200 / 200 100 / 100 100 / 100 100 ML @ 200 mls/hr IV.SIG Q8H [facility] Rx#:[id number] Cubicin Inj 600 MG In NS Inj 100 / 100 100 / 100 100 ML @ 200 mls/hr IV.SIG Q24H [facility] Rx#:[id number] Zyvox 600 mg Premix 300 ML @ 300 / 300 300 / 300 300 / 300 300 mls/hr IV.SIG Q12H [facility] Rx#: [id number] NS Inj 1,000 ML @ 75 mls/hr IV. 1000 / 1000 250 / 250 SIG .[id number] [facility] Rx#:[id number] fentaNYL 10 mcg/mL Premix Drip 358 / 358 2,500 mcg In 250 ml @ 50 MCG/HR 5 mls/hr IV.SIG TITRATE PRN Rx #:[id number] Oral 0 / 0 0 / 0 Tube Feeding 0 / 0 237 / 237 303 / 303 Water Bolus Amount 200 / 200 50 / 50 300 / 300 Output: Urine 1000 / 1000 Stool 0 / 0 0 / 0 Urine/Stool Mix 0 / 0 Urine Amount (Catheter) 1200 / 1200 2600 / 2600 Condom 1200 / 1200 Indwelling Urethral Catheter 2600 / 2600 Gastric Drainage 750 / 750 Orogastric Tube 750 / 750 Other: # Bowel Movements 0 # Incontinent Bowel Movements 0 04/07/18 07:25 Blood - Peripheral Aerobic Blood Culture - Final S. aureus MRSA 04/07/18 07:25 Blood - Peripheral Anaerobic Blood Culture - Final S. aureus MRSA 04/07/18 07:34 Blood - Peripheral Aerobic Blood Culture - Final S. aureus MRSA 04/07/18 07:34 Blood - Peripheral Anaerobic Blood Culture - Final S. aureus MRSA 04/09/18 08:47 Blood - Peripheral Aerobic Blood Culture - Pending 04/09/18 08:47 Blood - Peripheral Anaerobic Blood Culture - Pending 04/09/18 08:45 Blood - Peripheral Aerobic Blood Culture - Pending 04/09/18 08:45 Blood - Peripheral Anaerobic Blood Culture - Pending 04/06/18 04:30 Sputum - Endotracheal Gram Stain - Final 04/06/18 04:30 Sputum - Endotracheal Sputum Culture - Final S. aureus MRSA 04/05/18 21:30 Blood - Peripheral Aerobic Blood Culture - Final S. aureus MRSA 04/05/18 21:30 Blood - Peripheral Anaerobic Blood Culture - Final S. aureus MRSA 04/05/18 21:40 Blood - Peripheral Aerobic Blood Culture - Final S. aureus MRSA 04/05/18 21:40 Blood - Peripheral Anaerobic Blood Culture - Final S. aureus MRSA 04/05/18 00:45 Clean Catch Urine Urine Culture - Final No growth in 48 hours Lab - Hematology Results 04/09/18 07:04 WBC 14.9 H RBC 3.93 L Hgb 12.0 L Hct 35.2 L MCV 89.4 MCH 30.5 MCHC 34.1 RDW 14.9 Plt Count 164 MPV 10.1 Lab - Chemistry Results 04/07/18 04/08/18 04/08/18 23:13 05:05 13:11 Sodium Potassium Chloride Carbon Dioxide Anion Gap BUN Creatinine Estimated GFR POC Glucose 126 H 141 H 148 H Random Glucose Calcium Phosphorus Magnesium Total Creatine Kinase 04/08/18 04/09/18 04/09/18 23:03 06:06 07:54 Sodium 146 H Potassium 3.4 L Chloride 111 H Carbon Dioxide 30.1 Anion Gap 5 BUN 36 H Creatinine 0.66 Estimated GFR Greater than 89 POC Glucose 150 H 179 H Random Glucose 185 H Calcium 9.0 Phosphorus 1.5 L Magnesium 2.2 Total Creatine Kinase 112 04/09/18 04/09/18 11:14 17:08 Sodium Potassium Chloride Carbon Dioxide Anion Gap BUN Creatinine Estimated GFR POC Glucose 176 H 180 H Random Glucose Calcium Phosphorus Magnesium Total Creatine Kinase Imaging: ITS Impressions Chest CT 04/06/18 00:00 CONCLUSION: 1. Patchy bilateral areas of consolidation most likely infectious in etiology. 2. 1.5 cm left lower lobe pulmonary nodule. Close follow-up of this nodule is suggested. Consideration could be made to an outpatient PET CT to further assess. 3. Coronary artery atherosclerotic calcifications. Face CT 04/06/18 00:00 CONCLUSION: 1. Small focal area of soft tissue swelling involving the lateral orbital margin on the left. No abscess. Chest X-Ray 04/07/18 06:00 CONCLUSION: Unchanged bilateral pulmonary infiltrates and tiny left effusion. Physical Exam: GENERAL: NAD on vent SKIN: Warm and dry. No rash HEAD: Atraumatic. Normocephalic. EYES: Pupils equal and round. No scleral icterus. No injection or drainage. ENT: No nasal bleeding or discharge. Mucous membranes pink and moist. NECK: Trachea midline. No JVD. CARDIOVASCULAR: Regular rate and rhythm. RESPIRATORY: No accessory muscle use. scattered rhonchito auscultation. Breath sounds equal bilaterally. GASTROINTESTINAL: Abdomen soft, non-tender, nondistended. Hepatic and splenic margins not palpable. MUSCULOSKELETAL: Extremities without clubbing, mi.ld cyanosis, or edema. No obvious deformities. NEUROLOGICAL: sedated PSYCHIATRIC: unable to assess Assessment and Plan - Plan HIgh grade bacteremia with multifocal pulmonary infiltrates DEEDEE wo e/o endocarditis NM were unable to tag WBC, abx interaction was suspected ? source - right sided endocarditis with secondary septic emboli vs bacteremia 2 /2 PNA - dw radiologist -m CT findings not cw septic emboli Vanco allergy cont zyvox cont daptomycin, increase to 10 mg /kg fu total CKs ceretec cancelled Will have to get CT C/A/P, MRs brain, whole spine dw Dr Mónica Hernandez who agreed wityh the plan for multiple scans to attempt to w/u occult source
[2018-04-09] MEDS: Enoxaparin Inj 40 MG/0.4 ML Syringe SQ SCH (22:02)
[2018-04-10] MEDS: fentaNYL 10 mcg/mL Premix Drip 2,500 MCG/250 ML BAG IV.SIG PRN ×3 (01:14→21:23)
[2018-04-10] MEDS: Chlorhexidine Gluconate 2% 1 Pack (2 Cloths) TOPICAL SCH (04:15)
[2018-04-10] MEDS: Oral Hygiene Kit OROPHARYNG SCH ×4 (04:15→23:34)
[2018-04-10] MEDS: MethylPREDNISolone Sod Succinate Inj 125 MG/2 ML Vial IV.PUSH SCH (05:21)
[2018-04-10] MEDS: Artificial Tears Opth Drops 15 ML Bottle EACH EYE SCH ×3 (05:21→20:05)
[2018-04-10] MEDS: Insulin NovoLIN Regular Correctional Sugar Inj SQ SCH ×4 (06:09→23:42)
[2018-04-10 08:17] LABS: Hematocrit 37.8 % (39.0-51.0); Hemoglobin 12.7 gm/dL (13.0-17.0); Mean Corpuscular HGB Conc 33.5 % (32.0-36.0); Mean Corpuscular Hemoglobin 29.7 pg (27.0-34.0); Mean Corpuscular Volume 88.8 fL (80.0-100.0); Mean Platelet Volume 10.2 fL (7.0-11.0); Platelet Count 186 th/mm3 (150-450); Red Blood Count 4.25 mil/mm3 (4.50-5.90); Red Cell Distribution Width 14.8 % (11.6-17.2); White Blood Count 15.6 th/mm3 (4.0-11.0)
--- NOTE | 2018-04-10 08:20 | P.PNCC ---
Subjective Subjective Remarks/Hospital Course: Patient is 72-year-old male with past medical history of COPD, tobacco abuse and hypertension who came to the emergency room for shortness of breath via EMS. On EMS arrival saturation was in the 90s, but patient had significant shortness of breath and dyspnea. Patient received Solu-Medrol 125 mg IV and breathing treatments by EMS and was brought to the emergency department. In the emergency department patient received further breathing treatments and chest x-ray showed patchy infiltrate on bilateral lung fitzgerald. Initially maintaining oxygen saturation with nasal cannula. Initial blood pressure was 85 /65, improved with normal saline boluses. WBC count was 17.1. Patient was deemed septic from pneumonia and patient was ordered to receive vancomycin and Zosyn. While receiving vancomycin patient acutely decompensated became extremely short of breath and developed erythematous maculopapular rash involving face torso armpits and groin region. Emergently intubated and placed on mechanical ventilation by the ED physician. Received IV 50 mg Benadryl. Critical care medicine was requested to admit the patient. I evaluated the patient immediately in the emergency department. Patient is intubated on Versed and fentanyl infusion however he is very asynchronous with the vent triggering ventilator alarms. Severe bilateral expiratory wheezing heard on auscultation. He has extensive skin rash predominantly face forehead torso armpit and groins. Appears like patient had anaphylactic reaction to vancomycin complicated by COPD exacerbation and pneumonia. I have ordered additional Solu-Medrol 100 mg x1 scheduled Benadryl and famotidine, antibiotics with cefepime and Levaquin. Increase Versed infusion, add propofol and use neuromuscular paralysis as needed. Will request pharmacy to add vancomycin to allergy. ED physician Dr. Slater had noticed that patient had some swelling on the left side of his face on arrival, however the skin rash after vancomycin was started was new. Patient remains hypotensive has received 2 L of normal saline in the emergency department and no significant urine output. I have ordered additional 2 L normal saline bolus and maintenance fluid at 84 mL/h. Use Levophed as needed to keep map above 65 Subjective 04/06: Off norepinephrine drip. Currently resting in bed in no acute distress on midazolam and fentanyl drips. Start tube feeding today. 04/07: Remains sedated, intubated on mechanical ventilation. Blood cultures growing MRSA 04/08: remains sedated and intubated. repeat cultures still growing MRSA 2/4 cultures. likely need to repeat BCx either today or tomorrow. agree with narrowing spectrum abx. performed DEEDEE at ID recommendation (need to r/o endocarditis), but no evidence of vegetations. remains hypoxic. off vasopressors today. 04/09: adequate auto-diuresis overnight. off vasopressors. on sedation vacation. hypoxia improving. 04/10 Patient remains intubated and sedated with Fentanyl infusion. Became tachycardic and tachypenic overnight requiring increase sedation. Afebrile. Objective Vital Signs / I&O: Vital Signs 04/09/18 10:00 04/09/18 10:44 04/09/18 10:45 Temperature Pulse Rate 92 H 95 H Respiratory Rate 18 18 Blood Pressure Pulse Oximetry 99 04/09/18 12:00 04/09/18 14:00 04/09/18 15:14 Temperature 98.4 F Pulse Rate 80 81 93 H Respiratory Rate 16 Blood Pressure 157/70 H Pulse Oximetry 99 96 04/09/18 16:00 04/09/18 17:00 04/09/18 18:00 Temperature 98.0 F Pulse Rate 87 82 80 Respiratory Rate 16 Blood Pressure 149/66 H 156/78 H 157/78 H Pulse Oximetry 93 L 95 96 04/09/18 19:00 04/09/18 20:00 04/09/18 20:22 Temperature Pulse Rate 81 75 74 Respiratory Rate 16 Blood Pressure 151/72 H 154/88 H Pulse Oximetry 94 L 96 98 04/09/18 21:00 04/09/18 22:00 04/09/18 23:00 Temperature Pulse Rate 79 80 82 Respiratory Rate Blood Pressure 158/80 H 159/77 H 164/80 H Pulse Oximetry 95 95 94 L 04/09/18 23:34 04/10/18 00:00 04/10/18 01:00 Temperature Pulse Rate 93 H 101 H 97 H Respiratory Rate 16 Blood Pressure 170/74 H Pulse Oximetry 94 L 98 93 L 04/10/18 01:01 04/10/18 02:00 04/10/18 03:00 Temperature Pulse Rate 109 H 91 H 87 Respiratory Rate Blood Pressure 134/90 175/78 H 169/74 H Pulse Oximetry 94 L 97 97 04/10/18 04:00 04/10/18 04:12 04/10/18 04:17 Temperature 97.6 F Pulse Rate 126 H 129 H 127 H Respiratory Rate Blood Pressure 179/97 H 187/91 H 196/99 H Pulse Oximetry 95 96 96 04/10/18 04:24 04/10/18 04:28 04/10/18 04:31 Temperature Pulse Rate 131 H 129 H Respiratory Rate 26 H Blood Pressure 204/91 H 219/97 H Pulse Oximetry 95 95 95 04/10/18 04:37 04/10/18 04:40 04/10/18 04:45 Temperature Pulse Rate 115 H 108 H 104 H Respiratory Rate Blood Pressure 182/81 H 199/86 H 209/82 H Pulse Oximetry 93 L 93 L 92 L 04/10/18 04:50 04/10/18 04:56 04/10/18 05:00 Temperature Pulse Rate 102 H 129 H 103 H Respiratory Rate Blood Pressure 219/83 H 183/108 H 137/87 Pulse Oximetry 95 97 94 L 04/10/18 06:00 Temperature Pulse Rate 84 Respiratory Rate Blood Pressure Pulse Oximetry Intake & Output 04/09/18 04/10/18 04/10/18 18:59 06:59 18:59 Intake Total 1561 / 1561 512 / 512 Output Total 1000 / 1000 1800 / 1800 Balance 561 / 561 -1288 / -1288 Weight 93.5 kg Intake: IV 958 / 958 512 / 512 Versed Inj 100 mg In 100 ml @ 2 100 / 100 MG/HR 2 mls/hr IV.CONT TITRATE PRN Rx#:[id number] Maxipime Inj 2,000 MG In NS Inj 100 / 100 100 ML @ 200 mls/hr IV.SIG Q8H [facility] Rx#:[id number] Cubicin Inj 600 MG In NS Inj 100 / 100 100 ML @ 200 mls/hr IV.SIG Q24H [facility] Rx#:[id number] Zyvox 600 mg Premix 300 ML @ 300 / 300 300 / 300 300 mls/hr IV.SIG Q12H [facility] Rx#: [id number] fentaNYL 10 mcg/mL Premix Drip 358 / 358 142 / 142 2,500 mcg In 250 ml @ 50 MCG/HR 5 mls/hr IV.SIG TITRATE PRN Rx #:[id number] Oral 0 / 0 Tube Feeding 303 / 303 Water Bolus Amount 300 / 300 Output: Urine 1000 / 1000 Stool 0 / 0 Urine Amount (Catheter) 1800 / 1800 Indwelling Urethral Catheter 1800 / 1800 Result Diagrams: 04/10/18 06:56 04/10/18 06:56 Other Results: Laboratory Results - last 12 hr 04/09/18 04/10/18 23:38 05:28 POC Glucose 144 H 151 H Imaging: Chest CT 04/06/18 00:00 CONCLUSION: 1. Patchy bilateral areas of consolidation most likely infectious in etiology. 2. 1.5 cm left lower lobe pulmonary nodule. Close follow-up of this nodule is suggested. Consideration could be made to an outpatient PET CT to further assess. 3. Coronary artery atherosclerotic calcifications. Face CT 04/06/18 00:00 CONCLUSION: 1. Small focal area of soft tissue swelling involving the lateral orbital margin on the left. No abscess. Chest X-Ray 04/07/18 06:00 CONCLUSION: Unchanged bilateral pulmonary infiltrates and tiny left effusion. Objective Remarks: GENERAL: This is an elderly male, orotracheally intubated, lying in bed. SKIN: Warm and dry. HEAD: Atraumatic. Normocephalic. EYES: Pupils equal and round. No scleral icterus. No injection or drainage. ENT: No nasal bleeding or discharge. Mucous membranes pink and moist. NECK: Trachea midline. No JVD. CARDIOVASCULAR: Regular rate and rhythm. sinus. RESPIRATORY: No accessory muscle use. equal chest rise. GASTROINTESTINAL: Abdomen soft, non-tender, nondistended. no guarding. MUSCULOSKELETAL: Extremities without clubbing, cyanosis, or edema. No obvious deformities. NEUROLOGICAL: Sedated on fentanyl drip Assessment and Plan - Problem List (1) Anaphylaxis Code(s): T78.2XXA - Anaphylactic shock, unspecified, initial encounter Status : Acute (2) COPD with acute exacerbation Code(s): J44.1 - Chronic obstructive pulmonary disease with (acute) exacerbation Status: Acute (3) Bilateral pneumonia Code(s): J18.9 - Pneumonia, unspecified organism Status: Acute (4) Allergic reaction caused by a drug Code(s): T78.40XA - Allergy, unspecified, initial encounter Status: Acute (5) Acute respiratory failure Code(s): J96.00 - Acute respiratory failure, unspecified whether with hypoxia or hypercapnia Status: Acute (6) Severe sepsis Code(s): A41.9 - Sepsis, unspecified organism; R65.20 - Severe sepsis without septic shock Status: Acute (7) Leukocytosis Code(s): D72.829 - Elevated white blood cell count, unspecified Status: Acute (8) Hypotension Code(s): I95.9 - Hypotension, unspecified Status: Acute (9) Acute kidney injury Code(s): N17.9 - Acute kidney failure, unspecified Status: Acute (10) Hyponatremia Code(s): E87.1 - Hypo-osmolality and hyponatremia Status: Acute (11) Hyperglycemia Code(s): R73.9 - Hyperglycemia, unspecified Status: Acute (12) History of hypertension Code(s): Z86.79 - Personal history of other diseases of the circulatory system Status: Chronic (13) Tobacco abuse Code(s): Z72.0 - Tobacco use Status: Chronic (14) History of COPD Code(s): Z87.09 - Personal history of other diseases of the respiratory system Status: Chronic - Assessment and Plan Plan: Assessment: 72yM with community acquired MRSA pneumonia and bacteremia and associated hypoxic respiratory failure and septic shock. continue abx and supportive care. NEURO/Psych: Acute metabolic encephalopathy - On Fentanyl infusion for sedation. Daily sedation vacation. -CT face revealed left orbital swelling/lateral. -Monitor neuro status. For MRI brain and spine RESP: Acute hypoxic respiratory failure- slowly improving Anaphylactic reaction to vancomycin Community acquired MRSA pneumonia Acute COPD exacerbation Bilateral pneumonia Coronary artery calcification Tobaccoism Left lower lobe 1.5 cm pulmonary nodule. Outpatient PET scan -Emergently intubated and placed on mechanical ventilation in the emergency department -Continue with vent support keep sats >92% -Albuterol/ipratropium aerosols every 4 hours with albuterol aerosols every 2 hours as needed dyspnea -Check CXR and ABG -SBT daily when appropriate. For CT chest -Received total of 225 mg IV Solu-Medrol, continue 60 mg IV every 8 hours. taper steroids- decrease Solumederol 40mg IV Q12 -Vancomycin added to allergy -CT of the chest revealed pulmonary infiltrates. 1.5 cm left lower lobe pulmonary nodule. Outpatient PET scan -nicotine patch 7 mg daily. - abx as below CV: History of hypertension septic shock- resolved Monitor HR and BP keep MAP>65mmHg. Place on Cardizem 60mg Q6 Lactic acid 1.9 on 04/05 Home medications include Lisinopril 40 mg daily metoprolol 200 mg twice daily GI: Hypoalbuminemia Acute protein calorie malnutrition - moderate -Resume Tube feeds with Jevity 1.5 goal 55 cc an hour., IV famotidine for GI prophylaxis -Docusate sodium/senna 1 tablet twice daily for bowel regimen Renal/FEN/: Acute kidney injury- improving. Acute urinary retention Hypernatremia -Monitor renal function, I/O's,. continue Shine- has had 2 episodes of urinary retention. Electrolytes replacement per protocol. Will need K replacement today free water to 300mL po q4h. Monitor sodium level. ID: Septic shock- resolved Multifocal pneumonia MRSA bacteremia on 04/05, 04/07 MRSA pneumonia -Continue abx,( Zyvox and Daptomycin) ID is following. - BC 04/05,04/07: MRSA, follow up BC from 04/09/ Check sputum cx -Sputum cx 04/06: MRSA - DEEDEE 04/08 without vegetations, normal EF HEME: -Monitor CBC, coags ENDO: Hyperglycemia -Electrolyte replacement per protocol -Sliding scale insulin Accu-Cheks every 6 hours to maintain euglycemia PROPH: -Bilateral lower extremity SCDs. Enoxaparin/famotidine Follow up on labs LINES: -Utilize peripheral IVs, central line if needed Time spent on critical care excluding procedures: 30 min (1) Anaphylaxis Qualifiers: Encounter type: initial encounter Qualified Code(s): T78.2XXA - Anaphylactic shock, unspecified, initial encounter (3) Bilateral pneumonia Qualifiers: Pneumonia type: due to unspecified organism Lung location: unspecified part of lung Qualified Code(s): J18.9 - Pneumonia, unspecified organism (4) Allergic reaction caused by a drug Qualifiers: Encounter type: initial encounter Qualified Code(s): T78.40XA - Allergy, unspecified, initial encounter (5) Acute respiratory failure Qualifiers: Respiratory failure complication: unspecified whether with hypoxia or hypercapnia Qualified Code(s): J96.00 - Acute respiratory failure, unspecified whether with hypoxia or hypercapnia (7) Leukocytosis Qualifiers: Leukocytosis type: unspecified Qualified Code(s): D72.829 - Elevated white blood cell count, unspecified (8) Hypotension Qualifiers: Hypotension type: unspecified hypotension type Qualified Code(s): I95.9 - Hypotension, unspecified
[2018-04-10] MEDS: Chlorhexidine 0.12% Oral Kit 15 ML UDC OROPHARYNG SCH ×2 (08:30→20:05)
[2018-04-10] MEDS: Famotidine PF Inj 20 MG/2 ML Vial IV.PUSH SCH ×2 (08:31→21:24)
[2018-04-10 08:33] LABS: Anion Gap 2 meq/L (5-15); Blood Urea Nitrogen 42 mg/dL (7-18); Carbon Dioxide 34.9 meq/L (21.0-32.0); Chloride 110 meq/L (98-107); Glomerular Filtration Rate Greater Than 89 mL/min (>89); Glucose,Random 151 mg/dL (74-106); Magnesium 2.3 mg/dL (1.5-2.5); Phosphorus 1.5 mg/dL (2.5-4.9); Potassium 3.4 meq/L (3.5-5.1); Sodium 147 meq/L (136-145)
[2018-04-10] MEDS: dilTIAZem 60 MG Tablet PO SCH ×4 (08:47→21:24)
[2018-04-10] MEDS: MethylPREDNISolone Sod Succinate Inj 40 MG/ML Vial IV.PUSH SCH ×2 (08:47→21:24)
--- NOTE | 2018-04-10 09:01 | XR ---
EXAM DATE: 04/10/2018 8:57 AM EST AGE/SEX: 72 years / Male INDICATIONS: Respiratory failure and shortness of breath. CLINICAL DATA: This is the patient's initial encounter. Patient reports that signs and symptoms have been present for 1 day and indicates a pain score of Nonresponsive. MEDICAL/SURGICAL HISTORY: Chronic obstructive pulmonary disease. Hypertension. None. COMPARISON: [facility] – [place], CHEST 1V SINGLE AP, 04/07/2018. . FINDINGS: There is slight interval worsening right basilar patchiness and persistent right upper lobe and left basilar consolidations. The endotracheal tube is noted approximately 7 cm above the haseeb. A nasogas tric tube has its tip below diaphragm. The heart is stable. CONCLUSION: Slight interval worsening right basilar consolidation and persistent stable right upper lobe and left basilar consolidations. Electronically signed by: Vega Aguirre MD Board Certified Radiologist 04/10/2018 8:59 AM EST
[2018-04-10] MEDS: Propofol 1000 mg/100 ml Inj 1,000 MG/100 ML BOTTLE IV.CONT PRN ×4 (09:03→21:23)
[2018-04-10 09:17] LABS: ABG Base Excess 10.6 mmol/L (-2-2); ABG PCO2 40 mmHg (38-42); ABG PO2 178 mmHG (61-120)
[2018-04-10] MEDS: DAPTOmycin Inj 1,000 MG in Sodium Chlor 0.9% Inj 100 ML IV.SIG SCH (12:03)
--- NOTE | 2018-04-10 14:18 | ECG ---
Date Performed: 04/10/2018 Time Performed: 08:19:13 PTAGE: 72 years EKG: SINUS TACHYCARDIA WITH OCCASIONAL VENTRICULAR PREMATURE COMPLEXES POSSIBLE LEFT ATRIAL ENLA RGEMENT MODERATE ST DEPRESSION ABNORMAL ECG Compared to prior EKG, PVCs are now present. PREVIOUS TRACING : 04/05/2018 21.25 DOCTOR: Miguel Wells Interpretating Date/Time 04/10/2018 14:16:54
--- NOTE | 2018-04-10 14:37 | CT ---
EXAM DATE: 04/10/2018 2:17 PM EST AGE/SEX: 72 years / Male INDICATIONS: Possible abdominal abscess. CLINICAL DATA: This is the patient's initial encounter. Patient reports that signs and symptoms have been present for 1 day and indicates a pain score of Nonresponsive. MEDICAL/SURGICAL HISTORY: Chronic obstructive pulmonary disease. Hypertension. None. ORAL CONTRAST: No oral contrast ingested. RADIATION DOSE: 15.66 CTDI (mGy) ; Combined studies COMPARISON: [facility] – [place], CT CHEST W CONTRAST, 04/10/2018. . TECHNIQUE: Multiple contiguous axial images were obtained through the abdomen and pelvis following b olus infusion of 100 ml Omnipaque 350 (iohexol) nonionic water-soluble contrast as a cumulative dos e for multiple exams. No oral contrast ingested. Using automated exposure control and adjustment of the mA and/or kV according to patient size, radiation dose was kept as low as reasonably achievable t o obtain optimal diagnostic quality images. DICOM format image data is available electronically for review and comparison. FINDINGS: Abdomen CT: The liver, spleen, pancreas, adrenals are unremarkable. There is a small approximate 4 to 5 mm ston e in the left kidney without any significant hydronephrosis. In the left perinephric space surroundin g the left kidney there is slight fluid collection and haziness of fascial planes extending into Aneesh ta's fascia. The exact etiology is not certain. There is no hydronephrosis. Slightly over centimeters cyst is present in the right kidney with a tiny subcentimeter cyst left kidney. Questionable gallsto sol are present in the gallbladder and the gallbladder measures 9.5 cm in size. Aorta is slightly ane urysmal measures 3.3 cm in size and demonstrates atelectatic calcifications. There is no evidence for any appreciable pathological adenopathy, free fluid, or bowel obstruction. Left lung base consolida tion is present posteriorly measures 4 cm in size with extensive parenchymal infiltrate in left lower lobe in addition to multiple cavitary lesions some of which have air-fluid levels within them. Small bilateral pleural effusions are present discussed on the patient's chest CT. Pelvic CT: There is no evidence for mass, abscess formation, or any significant adenopathy within the pelvis. T here is moderate amount of stool in the colon. There is approximate 2.9 cm loculated fluid collectio n in the right inguinal canal with surrounding fat herniation and no evidence for bowel herniation. S light fluid is present in the pelvis. Cavity. CONCLUSION: 1. Findings in the patient's chest discussed on the patient's chest CT. 2. Left renal stone without hydronephrosis. 3. Slight AAA. 4. Possible gallstones within the gallbladder. 5. There is slight fluid within the peritoneal cavity in the pelvis and within left perinephric spac e and stranding densities involving the Gerota's fascia on the left side. The exact etiology is not c ertain could be inflammatory, and there is no hydronephrosis. Electronically signed by: Yves Garcia MD Board Certified Radiologist 04/10/2018 2:36 PM EST
--- NOTE | 2018-04-10 14:46 | CT ---
EXAM DATE: 04/10/2018 2:18 PM EST AGE/SEX: 72 years / Male INDICATIONS: Possible pneumonia. CLINICAL DATA: This is the patient's initial encounter. Patient reports that signs and symptoms have been present for 1 day and indicates a pain score of Nonresponsive. MEDICAL/SURGICAL HISTORY: Chronic obstructive pulmonary disease. Hypertension. None. RADIATION DOSE: 16.66 CTDI (mGy) ; Combined studies COMPARISON: [facility] – [place], [place] CHEST W/O CONTRAST, 04/06/2018. . TECHNIQUE: Multiple contiguous axial images were obtained through the chest during bolus infusion of 100 ml Omnipaque 350 (iohexol) nonionic water-soluble contrast as a cumulative dose for multiple ex ams. Images were obtained in suspended respiration using multiple row detector helical technique. Using automated exposure control and adjustment of the mA and/or kV according to patient size, radiat ion dose was kept as low as reasonably achievable to obtain optimal diagnostic quality images. DICOM format image data is available electronically for review and comparison. FINDINGS: There has been significant worsening of the patient's lungs since the prior CT from 4 days ago. Multi ple lung nodules have developed not present previously the largest almost a centimeter in size in lef t upper lobe with dense airspace consolidation right upper lobe significantly progressed. There are m ultiple cavitary lesions also not present previously the largest one measures 2.3 cm in size. Additio nal consolidations are present scattered in both lungs worse involving the left upper lobe and left l ower lobe the largest area measures 4.6 cm in size. Small bilateral pleural effusions are present as well. The rest of the examination has not changed. CONCLUSION: 1. Significant worsening of the patient's lungs with interval development of numerous nodules multip le cavitary lesions which demonstrate air-fluid levels within them characteristic of a very aggressiv e infectious process destroying the patient's lungs could be seen with necrotizing MRSA, however the appearance is nonspecific. Electronically signed by: Yves Garcia MD Board Certified Radiologist 04/10/2018 2:44 PM EST
--- NOTE | 2018-04-10 16:13 | P.DIET ---
Nutritional Evaluation Type of nutrition evaluation: follow-up Nutrition consult regarding: Tube Feeding Screening comments: 04/06/18 TF review Objective - Diagnosis respiratory failure, pneumonia, allergic reaction - Objective Body Mass Index: 28.0 % IBW: 108 (IBW = 178lb) Body Weight Used for Calculations: Actual (88kg) Energy Needs - Lower Range (kCal/kg): 25 Energy Needs - Upper Range (kCal/kg): 30 Lower Limit kCal/kg (kCals): 2,200 Upper Limit kCal/kg (kCals): 2,640 Lower Limit Protein Factor (Grams per Kg): 1.1 Upper Limit Protein Factor (Grams per Kg): 1.3 Lower Protein Needs (Protein): 97 Upper Protein Needs (Protein): 114 Dietitian Reviewed in Medical Record: Curent medications, Intake & Output, Labs , Medical history, Tube feeding Diet Order: NPO, TF'ing Objective Comments: PMH: COPD, hx of MRSA, HTN Meds: Fentanyl, propofol Labs: N1 147, BUN 42, POC glucose 176 144 150 Assessment Assessment: Pt remains intubated, sedated w/ propofol, and on mech vent. Pt currently receiving trickle feeds of Jevity 1.5 @ 10mL/hr after TF was held for [address] continue to recommend Jevity 1.5 @ 65mL/hr to provide 2340 kcal, 100g of protein , and 1186mL of free water to best meet pts nutritional needs. Additional kcal ( 1.1kcal/mL) provided by Propofol while running. Advance TF'ing as tolerated. Continue to monitor TF tolerance, renal and glucose labs. Labs reviewed, dietitian following. Recommendations: 1. RD continue to recommend Jevity 1.5 @ 65mL/hr to best meet pts nutritional needs 2. Additional kcal (1.1kcal/mL) provided by Propofol while running 3. Advance TF'ing as tolerated 4. Continue to monitor TF tolerance, renal and glucose labs 5. Dietitian following Dietitian to Monitor: Lab values, Renal labs, Glucose level, Intake & Output, Tube feeding tolerance, Weight change, Medical course
--- NOTE | 2018-04-10 18:29 | P.PNID ---
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 Antibiotics: daPtomycin zyvox Allergies/Adverse Reactions: Allergies bee venom protein (honey bee) Allergy (Unknown, Verified 04/05/18 21:12) Edema vancomycin Allergy (Verified 04/05/18 23:33) Anaphylaxis Objective Vital Signs 04/09/18 19:00 04/09/18 20:00 04/09/18 20:22 Temperature Pulse Rate 81 75 74 Respiratory Rate 16 Blood Pressure 151/72 H 154/88 H Pulse Oximetry 94 L 96 98 04/09/18 21:00 04/09/18 22:00 04/09/18 23:00 Temperature Pulse Rate 79 80 82 Respiratory Rate Blood Pressure 158/80 H 159/77 H 164/80 H Pulse Oximetry 95 95 94 L 04/09/18 23:34 04/10/18 00:00 04/10/18 01:00 Temperature Pulse Rate 93 H 101 H 97 H Respiratory Rate 16 Blood Pressure 170/74 H Pulse Oximetry 94 L 98 93 L 04/10/18 01:01 04/10/18 02:00 04/10/18 03:00 Temperature Pulse Rate 109 H 91 H 87 Respiratory Rate Blood Pressure 134/90 175/78 H 169/74 H Pulse Oximetry 94 L 97 97 04/10/18 04:00 04/10/18 04:12 04/10/18 04:17 Temperature 97.6 F Pulse Rate 126 H 129 H 127 H Respiratory Rate Blood Pressure 179/97 H 187/91 H 196/99 H Pulse Oximetry 95 96 96 04/10/18 04:24 04/10/18 04:28 04/10/18 04:31 Temperature Pulse Rate 131 H 129 H Respiratory Rate 26 H Blood Pressure 204/91 H 219/97 H Pulse Oximetry 95 95 95 04/10/18 04:37 04/10/18 04:40 04/10/18 04:45 Temperature Pulse Rate 115 H 108 H 104 H Respiratory Rate Blood Pressure 182/81 H 199/86 H 209/82 H Pulse Oximetry 93 L 93 L 92 L 04/10/18 04:50 04/10/18 04:56 04/10/18 05:00 Temperature Pulse Rate 102 H 129 H 103 H Respiratory Rate Blood Pressure 219/83 H 183/108 H 137/87 Pulse Oximetry 95 97 94 L 04/10/18 06:00 04/10/18 07:00 04/10/18 07:30 Temperature Pulse Rate 84 82 103 H Respiratory Rate 31 H Blood Pressure 153/93 H 165/99 H Pulse Oximetry 95 96 04/10/18 08:00 04/10/18 08:30 04/10/18 09:00 Temperature 98.6 F Pulse Rate 131 H 125 H 127 H Respiratory Rate 26 H Blood Pressure 176/119 H 157/97 H 167/109 H Pulse Oximetry 98 94 L 98 04/10/18 09:30 04/10/18 10:00 04/10/18 10:30 Temperature Pulse Rate 107 H 104 H 96 H Respiratory Rate Blood Pressure 137/82 127/81 122/71 Pulse Oximetry 91 L 92 L 96 04/10/18 10:45 04/10/18 11:00 04/10/18 11:15 Temperature Pulse Rate 94 H 89 84 Respiratory Rate 14 Blood Pressure 109/64 108/65 104/64 Pulse Oximetry 93 L 94 L 94 L 04/10/18 11:30 04/10/18 11:42 04/10/18 11:45 Temperature Pulse Rate 84 84 Respiratory Rate 14 Blood Pressure 105/64 106/66 Pulse Oximetry 93 L 95 94 L 04/10/18 12:00 04/10/18 12:15 04/10/18 12:30 Temperature 98.3 F Pulse Rate 79 118 H 100 H Respiratory Rate 16 Blood Pressure 105/66 158/97 H 169/95 H Pulse Oximetry 94 L 100 98 04/10/18 12:45 04/10/18 13:00 04/10/18 13:15 Temperature Pulse Rate 102 H 110 H 106 H Respiratory Rate Blood Pressure 167/101 H 152/94 H 148/88 H Pulse Oximetry 97 97 94 L 04/10/18 13:45 04/10/18 14:00 04/10/18 14:48 Temperature Pulse Rate 102 H 108 H 100 H Respiratory Rate Blood Pressure 149/86 H 145/79 H Pulse Oximetry 93 L 99 98 04/10/18 15:00 04/10/18 15:13 04/10/18 15:15 Temperature Pulse Rate 99 H 103 H Respiratory Rate 18 17 Blood Pressure 145/83 H 181/107 H Pulse Oximetry 95 94 L 96 04/10/18 15:30 04/10/18 15:45 04/10/18 16:00 Temperature 98.3 F Pulse Rate 99 H 94 H 94 H Respiratory Rate 17 Blood Pressure 153/84 H 150/86 H Pulse Oximetry 94 L 93 L 92 L 04/10/18 16:01 04/10/18 16:15 04/10/18 18:00 Temperature Pulse Rate 95 H 87 88 Respiratory Rate Blood Pressure 136/83 137/84 Pulse Oximetry 92 L 92 L Intake & Output 04/09/18 04/10/18 04/10/18 18:59 06:59 18:59 Intake Total 1561 / 1561 512 / 512 1862 / 1862 Output Total 1000 / 1000 1800 / 1800 1575 / 1575 Balance 561 / 561 -1288 / -1288 287 / 287 Weight 93.5 kg Intake: IV 958 / 958 512 / 512 932 / 932 Versed Inj 100 mg In 100 ml @ 2 100 / 100 MG/HR 2 mls/hr IV.CONT TITRATE PRN Rx#:[id number] Diprivan 1000 mg/100 ml Inj 1, 100 / 100 000 mg In 100 ml @ 5 MCG/KG/MIN 2.805 mls/hr IV.CONT TITRATE PRN Rx#:[id number] Maxipime Inj 2,000 MG In NS Inj 100 / 100 100 ML @ 200 mls/hr IV.SIG Q8H [facility] Rx#:[id number] Cubicin Inj 1,000 MG In NS Inj 100 / 100 130 / 130 100 ML @ 200 mls/hr IV.SIG Q24H [facility] Rx#:[id number] Zyvox 600 mg Premix 300 ML @ 300 / 300 300 / 300 300 / 300 300 mls/hr IV.SIG Q12H [facility] Rx#: [id number] Potassium Phosphate Inj 30 MMOL 260 / 260 In NS Inj 250 ML @ 42 mls/hr IV.SIG UNSCH PRN Rx#:[id number] fentaNYL 10 mcg/mL Premix Drip 358 / 358 142 / 142 142 / 142 2,500 mcg In 250 ml @ 50 MCG/HR 5 mls/hr IV.SIG TITRATE PRN Rx #:[id number] Oral 0 / 0 Tube Feeding 303 / 303 30 / 30 Water Bolus Amount 300 / 300 900 / 900 Output: Urine 1000 / 1000 Stool 0 / 0 Urine Amount (Catheter) 1800 / 1800 1575 / 1575 Indwelling Urethral Catheter 1800 / 1800 1575 / 1575 04/10/18 09:30 Sputum - Endotracheal Gram Stain - Final 04/10/18 09:30 Sputum - Endotracheal Sputum Culture - Pending 04/09/18 08:45 Blood - Peripheral Aerobic Blood Culture - Preliminary No growth in 1 day 04/09/18 08:45 Blood - Peripheral Anaerobic Blood Culture - Preliminary gram positive cocci 04/10/18 11:35 Blood - Peripheral Aerobic Blood Culture - Pending 04/10/18 11:35 Blood - Peripheral Anaerobic Blood Culture - Pending 04/10/18 11:42 Blood - Peripheral Aerobic Blood Culture - Pending 04/10/18 11:42 Blood - Peripheral Anaerobic Blood Culture - Pending 04/09/18 08:47 Blood - Peripheral Aerobic Blood Culture - Preliminary No growth in 1 day 04/09/18 08:47 Blood - Peripheral Anaerobic Blood Culture - Preliminary gram positive cocci 04/07/18 07:25 Blood - Peripheral Aerobic Blood Culture - Final S. aureus MRSA 04/07/18 07:25 Blood - Peripheral Anaerobic Blood Culture - Final S. aureus MRSA 04/07/18 07:34 Blood - Peripheral Aerobic Blood Culture - Final S. aureus MRSA 04/07/18 07:34 Blood - Peripheral Anaerobic Blood Culture - Final S. aureus MRSA 04/06/18 04:30 Sputum - Endotracheal Gram Stain - Final 04/06/18 04:30 Sputum - Endotracheal Sputum Culture - Final S. aureus MRSA 04/05/18 21:30 Blood - Peripheral Aerobic Blood Culture - Final S. aureus MRSA 04/05/18 21:30 Blood - Peripheral Anaerobic Blood Culture - Final S. aureus MRSA Lab - Hematology Results 04/09/18 04/10/18 07:04 06:56 WBC 14.9 H 15.6 H RBC 3.93 L 4.25 L Hgb 12.0 L 12.7 L Hct 35.2 L 37.8 L MCV 89.4 88.8 MCH 30.5 29.7 MCHC 34.1 33.5 RDW 14.9 14.8 Plt Count 164 186 MPV 10.1 10.2 Lab - Chemistry Results 04/08/18 04/09/18 04/09/18 23:03 06:06 07:54 Sodium 146 H Potassium 3.4 L Chloride 111 H Carbon Dioxide 30.1 Anion Gap 5 BUN 36 H Creatinine 0.66 Estimated GFR Greater than 89 POC Glucose 150 H 179 H Random Glucose 185 H Calcium 9.0 Phosphorus 1.5 L Magnesium 2.2 Total Creatine Kinase 112 04/09/18 04/09/18 04/09/18 11:14 17:08 23:38 Sodium Potassium Chloride Carbon Dioxide Anion Gap BUN Creatinine Estimated GFR POC Glucose 176 H 180 H 144 H Random Glucose Calcium Phosphorus Magnesium Total Creatine Kinase 04/10/18 04/10/18 04/10/18 05:28 06:56 11:20 Sodium 147 H Potassium 3.4 L Chloride 110 H Carbon Dioxide 34.9 H Anion Gap 2 L BUN 42 H Creatinine 0.67 Estimated GFR Greater than 89 POC Glucose 151 H 150 H Random Glucose 151 H Calcium 9.0 Phosphorus 1.5 L Magnesium 2.3 Total Creatine Kinase 04/10/18 17:12 Sodium Potassium Chloride Carbon Dioxide Anion Gap BUN Creatinine Estimated GFR POC Glucose 153 H Random Glucose Calcium Phosphorus Magnesium Total Creatine Kinase Imaging: ITS Impressions Face CT 04/06/18 00:00 CONCLUSION: 1. Small focal area of soft tissue swelling involving the lateral orbital margin on the left. No abscess. Abdomen/Pelvis CT 04/10/18 00:00 CONCLUSION: 1. Findings in the patient's chest discussed on the patient's chest CT. 2. Left renal stone without hydronephrosis. 3. Slight AAA. 4. Possible gallstones within the gallbladder. 5. There is slight fluid within the peritoneal cavity in the pelvis and within left perinephric space and stranding densities involving the Gerota's fascia on the left side. The exact etiology is not certain could be inflammatory, and there is no hydronephrosis. Chest CT 04/10/18 00:00 CONCLUSION: 1. Significant worsening of the patient's lungs with interval development of numerous nodules multiple cavitary lesions which demonstrate air-fluid levels within them characteristic of a very aggressive infectious process destroying the patient's lungs could be seen with necrotizing MRSA, however the appearance is nonspecific. Chest X-Ray 04/10/18 08:03 CONCLUSION: Slight interval worsening right basilar consolidation and persistent stable right upper lobe and left basilar consolidations. Physical Exam: GENERAL: NAD on vent SKIN: Warm and dry. No rash HEAD: Atraumatic. Normocephalic. EYES: Pupils equal and round. No scleral icterus. No injection or drainage. ENT: No nasal bleeding or discharge. Mucous membranes pink and moist. NECK: Trachea midline. No JVD. CARDIOVASCULAR: Regular rate and rhythm. RESPIRATORY: No accessory muscle use. scattered rhonchito auscultation. Breath sounds equal bilaterally. GASTROINTESTINAL: Abdomen soft, non-tender, nondistended. Hepatic and splenic margins not palpable. MUSCULOSKELETAL: Extremities without clubbing, mi.ld cyanosis, or edema. No obvious deformities. NEUROLOGICAL: awake, + eye contact, tracks, follows PSYCHIATRIC: unable to assess Assessment and Plan - Plan HIgh grade bacteremia with multifocal pulmonary infiltrates DEEDEE wo e/o endocarditis Necrotizing MRSA PNA vs pu,onary septic emboli following TV endocardits Acute VDRF cont zyvox add Teflaro cont daptomycin, increase to 10 mg /kg fu total CKs Galliunm ion friday if cont to have + BC cancell MRs brain, whole spine dw Mónica Gonsalez
[2018-04-10] MEDS: Potassium Chlor 20 mEq Premix 20 MEQ/100 ML PIGGYBACK IV.SIG PRN ×2 (21:24→23:40)
[2018-04-10] MEDS: Enoxaparin Inj 40 MG/0.4 ML Syringe SQ SCH (22:14)
[2018-04-11] MEDS: Propofol 1000 mg/100 ml Inj 1,000 MG/100 ML BOTTLE IV.CONT PRN ×6 (01:00→23:19)
[2018-04-11] MEDS: Potassium Chlor 20 mEq Premix 20 MEQ/100 ML PIGGYBACK IV.SIG PRN ×2 (01:45→03:28)
[2018-04-11] MEDS: Artificial Tears Opth Drops 15 ML Bottle EACH EYE SCH ×3 (04:24→20:27)
[2018-04-11] MEDS: Oral Hygiene Kit OROPHARYNG SCH ×4 (04:24→23:19)
[2018-04-11 05:40] LABS: Hematocrit 35.2 % (39.0-51.0); Hemoglobin 11.9 gm/dL (13.0-17.0); Mean Corpuscular HGB Conc 33.7 % (32.0-36.0); Mean Corpuscular Volume 89.2 fL (80.0-100.0); Mean Platelet Volume 8.8 fL (7.0-11.0); Platelet Count 228 th/mm3 (150-450); Red Blood Count 3.95 mil/mm3 (4.50-5.90); Red Cell Distribution Width 14.8 % (11.6-17.2); White Blood Count 12.7 th/mm3 (4.0-11.0)
[2018-04-11 06:03] LABS: Anion Gap 6 meq/L (5-15); Blood Urea Nitrogen 39 mg/dL (7-18); Calcium 8.5 mg/dL (8.5-10.1); Carbon Dioxide 33.5 meq/L (21.0-32.0); Chloride 105 meq/L (98-107); Glomerular Filtration Rate Greater Than 89 mL/min (>89); Glucose,Random 150 mg/dL (74-106); Magnesium 2.1 mg/dL (1.5-2.5); Phosphorus 2.9 mg/dL (2.5-4.9); Potassium 4.4 meq/L (3.5-5.1); Sodium 144 meq/L (136-145)
[2018-04-11] MEDS: fentaNYL 10 mcg/mL Premix Drip 2,500 MCG/250 ML BAG IV.SIG PRN (06:54)
[2018-04-11] MEDS: Insulin NovoLIN Regular Correctional Sugar Inj SQ SCH ×4 (06:58→23:19)
--- NOTE | 2018-04-11 07:43 | P.PNCC ---
Subjective Subjective Remarks/Hospital Course: Patient is 72-year-old male with past medical history of COPD, tobacco abuse and hypertension who came to the emergency room for shortness of breath via EMS. On EMS arrival saturation was in the 90s, but patient had significant shortness of breath and dyspnea. Patient received Solu-Medrol 125 mg IV and breathing treatments by EMS and was brought to the emergency department. In the emergency department patient received further breathing treatments and chest x-ray showed patchy infiltrate on bilateral lung fitzgerald. Initially maintaining oxygen saturation with nasal cannula. Initial blood pressure was 85 /65, improved with normal saline boluses. WBC count was 17.1. Patient was deemed septic from pneumonia and patient was ordered to receive vancomycin and Zosyn. While receiving vancomycin patient acutely decompensated became extremely short of breath and developed erythematous maculopapular rash involving face torso armpits and groin region. Emergently intubated and placed on mechanical ventilation by the ED physician. Received IV 50 mg Benadryl. Critical care medicine was requested to admit the patient. I evaluated the patient immediately in the emergency department. Patient is intubated on Versed and fentanyl infusion however he is very asynchronous with the vent triggering ventilator alarms. Severe bilateral expiratory wheezing heard on auscultation. He has extensive skin rash predominantly face forehead torso armpit and groins. Appears like patient had anaphylactic reaction to vancomycin complicated by COPD exacerbation and pneumonia. I have ordered additional Solu-Medrol 100 mg x1 scheduled Benadryl and famotidine, antibiotics with cefepime and Levaquin. Increase Versed infusion, add propofol and use neuromuscular paralysis as needed. Will request pharmacy to add vancomycin to allergy. ED physician Dr. Slater had noticed that patient had some swelling on the left side of his face on arrival, however the skin rash after vancomycin was started was new. Patient remains hypotensive has received 2 L of normal saline in the emergency department and no significant urine output. I have ordered additional 2 L normal saline bolus and maintenance fluid at 84 mL/h. Use Levophed as needed to keep map above 65 Subjective 04/06: Off norepinephrine drip. Currently resting in bed in no acute distress on midazolam and fentanyl drips. Start tube feeding today. 04/07: Remains sedated, intubated on mechanical ventilation. Blood cultures growing MRSA 04/08: remains sedated and intubated. repeat cultures still growing MRSA 2/4 cultures. likely need to repeat BCx either today or tomorrow. agree with narrowing spectrum abx. performed DEEDEE at ID recommendation (need to r/o endocarditis), but no evidence of vegetations. remains hypoxic. off vasopressors today. 04/09: adequate auto-diuresis overnight. off vasopressors. on sedation vacation. hypoxia improving. 04/10 Patient remains intubated and sedated with Fentanyl infusion. Became tachycardic and tachypneic overnight requiring increase sedation. Afebrile. 02/09 Patient is intubated and sedated. Afebrile. Objective Vital Signs / I&O: Vital Signs 04/10/18 08:00 04/10/18 08:30 04/10/18 09:00 Temperature 98.6 F Pulse Rate 131 H 125 H 127 H Respiratory Rate 26 H Blood Pressure 176/119 H 157/97 H 167/109 H Pulse Oximetry 98 94 L 98 04/10/18 09:30 04/10/18 10:00 04/10/18 10:30 Temperature Pulse Rate 107 H 104 H 96 H Respiratory Rate Blood Pressure 137/82 127/81 122/71 Pulse Oximetry 91 L 92 L 96 04/10/18 10:45 04/10/18 11:00 04/10/18 11:15 Temperature Pulse Rate 94 H 89 84 Respiratory Rate 14 Blood Pressure 109/64 108/65 104/64 Pulse Oximetry 93 L 94 L 94 L 04/10/18 11:30 04/10/18 11:42 04/10/18 11:45 Temperature Pulse Rate 84 84 Respiratory Rate 14 Blood Pressure 105/64 106/66 Pulse Oximetry 93 L 95 94 L 04/10/18 12:00 04/10/18 12:15 04/10/18 12:30 Temperature 98.3 F Pulse Rate 79 118 H 100 H Respiratory Rate 16 Blood Pressure 105/66 158/97 H 169/95 H Pulse Oximetry 94 L 100 98 04/10/18 12:45 04/10/18 13:00 04/10/18 13:15 Temperature Pulse Rate 102 H 110 H 106 H Respiratory Rate Blood Pressure 167/101 H 152/94 H 148/88 H Pulse Oximetry 97 97 94 L 04/10/18 13:45 04/10/18 14:00 04/10/18 14:48 Temperature Pulse Rate 102 H 108 H 100 H Respiratory Rate Blood Pressure 149/86 H 145/79 H Pulse Oximetry 93 L 99 98 04/10/18 15:00 04/10/18 15:13 04/10/18 15:15 Temperature Pulse Rate 99 H 103 H Respiratory Rate 18 17 Blood Pressure 145/83 H 181/107 H Pulse Oximetry 95 94 L 96 04/10/18 15:30 04/10/18 15:45 04/10/18 16:00 Temperature 98.3 F Pulse Rate 99 H 94 H 94 H Respiratory Rate 17 Blood Pressure 153/84 H 150/86 H Pulse Oximetry 94 L 93 L 92 L 04/10/18 16:01 04/10/18 16:15 04/10/18 18:00 Temperature Pulse Rate 95 H 87 88 Respiratory Rate Blood Pressure 136/83 137/84 Pulse Oximetry 92 L 92 L 04/10/18 20:00 04/10/18 21:16 04/10/18 22:00 Temperature 98.9 F Pulse Rate 77 103 H 62 Respiratory Rate 14 16 Blood Pressure 122/66 Pulse Oximetry 94 L 100 04/11/18 00:00 04/11/18 00:42 04/11/18 02:00 Temperature 98.2 F Pulse Rate 57 L 58 L 63 Respiratory Rate 15 20 Blood Pressure 107/64 Pulse Oximetry 98 99 04/11/18 04:00 04/11/18 04:36 04/11/18 04:37 Temperature 98.1 F Pulse Rate 57 L 69 Respiratory Rate 14 23 19 Blood Pressure 98/63 L Pulse Oximetry 97 98 04/11/18 06:00 Temperature Pulse Rate 58 L Respiratory Rate Blood Pressure Pulse Oximetry Intake & Output 04/10/18 04/11/18 04/11/18 18:59 06:59 18:59 Intake Total 1961 / 2 2630 / 2630 Output Total 1575 / 1575 900 / 900 Balance 387 / 387 1730 / 1730 Weight 94 kg Intake: IV 1032 / 1032 1500 / 1500 Diprivan 1000 mg/100 ml Inj 1, 200 / 200 300 / 300 000 mg In 100 ml @ 5 MCG/KG/MIN 2.805 mls/hr IV.CONT TITRATE PRN Rx#:[id number] Cubicin Inj 1,000 MG In NS Inj 130 / 130 100 ML @ 200 mls/hr IV.SIG Q24H [facility] Rx#:[id number] Zyvox 600 mg Premix 300 ML @ 300 / 300 300 / 300 300 mls/hr IV.SIG Q12H [facility] Rx#: [id number] KCl 20 mEq Premix Inj 20 meq In 400 / 400 100 ml @ 50 mls/hr IV.SIG Q2H PRN Rx#:[id number] Potassium Phosphate Inj 30 MMOL 260 / 260 In NS Inj 250 ML @ 42 mls/hr IV.SIG UNSCH PRN Rx#:[id number] fentaNYL 10 mcg/mL Premix Drip 142 / 142 500 / 500 2,500 mcg In 250 ml @ 50 MCG/HR 5 mls/hr IV.SIG TITRATE PRN Rx #:[id number] Tube Feeding 30 / 30 230 / 230 Water Bolus Amount 900 / 900 900 / 900 Output: Urine Amount (Catheter) 1575 / 1575 900 / 900 Indwelling Urethral Catheter 1575 / 1575 900 / 900 Result Diagrams: 04/11/18 05:00 04/11/18 05:00 Other Results: Laboratory Results - last 12 hr 04/10/18 04/11/18 04/11/18 23:42 05:00 05:00 WBC 12.7 H RBC 3.95 L Hgb 11.9 L Hct 35.2 L MCV 89.2 MCH 30.0 MCHC 33.7 RDW 14.8 Plt Count 228 MPV 8.8 Sodium 144 Potassium 4.4 D Chloride 105 Carbon Dioxide 33.5 H Anion Gap 6 BUN 39 H Creatinine 0.56 L Estimated GFR Greater than 89 POC Glucose 140 H Random Glucose 150 H Calcium 8.5 Phosphorus 2.9 Magnesium 2.1 04/11/18 05:08 WBC RBC Hgb Hct MCV MCH MCHC RDW Plt Count MPV Sodium Potassium Chloride Carbon Dioxide Anion Gap BUN Creatinine Estimated GFR POC Glucose 158 H Random Glucose Calcium Phosphorus Magnesium Imaging: Face CT 04/06/18 00:00 CONCLUSION: 1. Small focal area of soft tissue swelling involving the lateral orbital margin on the left. No abscess. Abdomen/Pelvis CT 04/10/18 00:00 CONCLUSION: 1. Findings in the patient's chest discussed on the patient's chest CT. 2. Left renal stone without hydronephrosis. 3. Slight AAA. 4. Possible gallstones within the gallbladder. 5. There is slight fluid within the peritoneal cavity in the pelvis and within left perinephric space and stranding densities involving the Gerota's fascia on the left side. The exact etiology is not certain could be inflammatory, and there is no hydronephrosis. Chest CT 04/10/18 00:00 CONCLUSION: 1. Significant worsening of the patient's lungs with interval development of numerous nodules multiple cavitary lesions which demonstrate air-fluid levels within them characteristic of a very aggressive infectious process destroying the patient's lungs could be seen with necrotizing MRSA, however the appearance is nonspecific. Chest X-Ray 04/10/18 08:03 CONCLUSION: Slight interval worsening right basilar consolidation and persistent stable right upper lobe and left basilar consolidations. Objective Remarks: GENERAL: This is an elderly male, orotracheally intubated, lying in bed. SKIN: Warm and dry. HEAD: Atraumatic. Normocephalic. EYES: Pupils equal and round. No scleral icterus. No injection or drainage. ENT: No nasal bleeding or discharge. Mucous membranes pink and moist. NECK: Trachea midline. No JVD. CARDIOVASCULAR: Regular rate and rhythm. sinus. RESPIRATORY: No accessory muscle use. equal chest rise. GASTROINTESTINAL: Abdomen soft, non-tender, nondistended. no guarding. MUSCULOSKELETAL: Extremities without clubbing, cyanosis, or edema. No obvious deformities. NEUROLOGICAL: Sedated Assessment and Plan - Problem List (1) Anaphylaxis Code(s): T78.2XXA - Anaphylactic shock, unspecified, initial encounter Status : Acute (2) COPD with acute exacerbation Code(s): J44.1 - Chronic obstructive pulmonary disease with (acute) exacerbation Status: Acute (3) Bilateral pneumonia Code(s): J18.9 - Pneumonia, unspecified organism Status: Acute (4) Allergic reaction caused by a drug Code(s): T78.40XA - Allergy, unspecified, initial encounter Status: Acute (5) Acute respiratory failure Code(s): J96.00 - Acute respiratory failure, unspecified whether with hypoxia or hypercapnia Status: Acute (6) Severe sepsis Code(s): A41.9 - Sepsis, unspecified organism; R65.20 - Severe sepsis without septic shock Status: Acute (7) Leukocytosis Code(s): D72.829 - Elevated white blood cell count, unspecified Status: Acute (8) Hypotension Code(s): I95.9 - Hypotension, unspecified Status: Acute (9) Acute kidney injury Code(s): N17.9 - Acute kidney failure, unspecified Status: Acute (10) Hyponatremia Code(s): E87.1 - Hypo-osmolality and hyponatremia Status: Acute (11) Hyperglycemia Code(s): R73.9 - Hyperglycemia, unspecified Status: Acute (12) History of hypertension Code(s): Z86.79 - Personal history of other diseases of the circulatory system Status: Chronic (13) Tobacco abuse Code(s): Z72.0 - Tobacco use Status: Chronic (14) History of COPD Code(s): Z87.09 - Personal history of other diseases of the respiratory system Status: Chronic - Assessment and Plan Plan: Assessment: 72yM with community acquired MRSA pneumonia and bacteremia and associated hypoxic respiratory failure and septic shock. continue abx and supportive care. NEURO/Psych: Acute metabolic encephalopathy - On Fentanyl and Diprivan infusion for sedation. Daily sedation vacation. -CT face revealed left orbital swelling/lateral. -Monitor neuro status. RESP: Acute hypoxic respiratory failure- slowly improving Anaphylactic reaction to vancomycin Community acquired MRSA pneumonia Acute COPD exacerbation Bilateral pneumonia Coronary artery calcification Tobaccoism Left lower lobe 1.5 cm pulmonary nodule. Outpatient PET scan -Emergently intubated and placed on mechanical ventilation in the emergency department -Continue with vent support keep sats >92% -Albuterol/ipratropium aerosols every 4 hours with albuterol aerosols every 2 hours as needed dyspnea -SBT daily as naye -CT chest 04/10: Significant worsening of the patient's lungs with interval development of numerous nodules multiple cavitary lesions which demonstrate air- fluid levels within them characteristic of a very aggressive infectious process destroying the patient's lungs could be seen with necrotizing MRSA -On Solumederol 40mg IV Q12 -Vancomycin added to allergy -CT of the chest 04/06 revealed pulmonary infiltrates. 1.5 cm left lower lobe pulmonary nodule. Outpatient PET scan -nicotine patch 7 mg daily. - abx as below CV: History of hypertension septic shock- resolved Monitor HR and BP keep MAP>65mmHg. Cardizem 60mg Q6 Lactic acid 1.9 on 04/05 Home medications include Lisinopril 40 mg daily metoprolol 200 mg twice daily GI: Hypoalbuminemia Acute protein calorie malnutrition - moderate -On tube feeds Jevity 1.5 goal 55 cc an hour., IV famotidine for GI prophylaxis -Docusate sodium/senna 1 tablet twice daily for bowel regimen Renal/FEN/: Acute kidney injury- improving. Acute urinary retention Hypernatremia -Monitor renal function, I/O's,. continue Shine- has had 2 episodes of urinary retention. Electrolytes replacement per protocol. free water to 300mL po q4h. Monitor sodium level. ID: Septic shock- resolved Multifocal pneumonia MRSA bacteremia on 04/05, 04/07 MRSA pneumonia -Continue abx,( Zyvox, Teflaro and Daptomycin) ID is following. Monitor CK - BC 04/05,04/07: MRSA, follow up BC from 04/09 MRSA, 04/10 BC: [facility] -Sputum cx 04/06: MRSA , 03/31 Sputum cx: pending - DEEDEE 04/08 without vegetations, normal EF HEME: -Monitor CBC, coags ENDO: Hyperglycemia -Electrolyte replacement per protocol -Sliding scale insulin Accu-Cheks every 6 hours to maintain euglycemia PROPH: -Bilateral lower extremity SCDs. Enoxaparin/famotidine Follow up on labs LINES: -Utilize peripheral IVs, central line if needed Time spent on critical care excluding procedures: 30 min (1) Anaphylaxis Qualifiers: Encounter type: initial encounter Qualified Code(s): T78.2XXA - Anaphylactic shock, unspecified, initial encounter (3) Bilateral pneumonia Qualifiers: Pneumonia type: due to unspecified organism Lung location: unspecified part of lung Qualified Code(s): J18.9 - Pneumonia, unspecified organism (4) Allergic reaction caused by a drug Qualifiers: Encounter type: initial encounter Qualified Code(s): T78.40XA - Allergy, unspecified, initial encounter (5) Acute respiratory failure Qualifiers: Respiratory failure complication: unspecified whether with hypoxia or hypercapnia Qualified Code(s): J96.00 - Acute respiratory failure, unspecified whether with hypoxia or hypercapnia (7) Leukocytosis Qualifiers: Leukocytosis type: unspecified Qualified Code(s): D72.829 - Elevated white blood cell count, unspecified (8) Hypotension Qualifiers: Hypotension type: unspecified hypotension type Qualified Code(s): I95.9 - Hypotension, unspecified
[2018-04-11] MEDS: dilTIAZem 60 MG Tablet PO SCH ×4 (08:48→20:26)
[2018-04-11] MEDS: Chlorhexidine 0.12% Oral Kit 15 ML UDC OROPHARYNG SCH ×2 (08:48→20:26)
[2018-04-11] MEDS: Famotidine PF Inj 20 MG/2 ML Vial IV.PUSH SCH ×2 (08:49→20:26)
[2018-04-11] MEDS: MethylPREDNISolone Sod Succinate Inj 40 MG/ML Vial IV.PUSH SCH ×2 (08:50→20:26)
[2018-04-11 09:39] LABS: Creatine Kinase 123 U/L (39-308)
--- NOTE | 2018-04-11 12:10 | P.PNID ---
Subjective Remarks: ID cross cover for Dr. Suarez. Chart reviewed. 72 yo toba+ male with COPD, HTN admitted with SOB rapidly deteriorated from resp standpoint and required intubation, placement on mech vent'n down to 35% FiO2 and PEEP 6, not much secretions Infiltrates on CT, multi focal He was started on broad spectrum abx (zosyn,, zyvox, levaquin) High grade bacteremia, MRSA 4/4 very quick - at 1 day h/o vanco allergy Initially on pressors, but now off 2 D echo negative, but TV not well visualized on limited echo Overnight events reviewed. no fever no rash No diarrhea High grade MRSA bacteremia / + blood clx CT chest:extensive infiltrates/septic emboli DEEDEE negative for endocarditis. off pressors Not following commands off sedation Urine output good Secretions brown moderate remains on vent Antibiotics: daptomycin zyvox Lines: Line sites okay Past Medical History: COPD Allergies/Adverse Reactions: Allergies bee venom protein (honey bee) Allergy (Unknown, Verified 04/05/18 21:12) Edema vancomycin Allergy (Verified 04/05/18 23:33) Anaphylaxis Objective Vital Signs 04/10/18 12:15 04/10/18 12:30 04/10/18 12:45 Temperature Pulse Rate 118 H 100 H 102 H Respiratory Rate Blood Pressure 158/97 H 169/95 H 167/101 H Pulse Oximetry 100 98 97 04/10/18 13:00 04/10/18 13:15 04/10/18 13:45 Temperature Pulse Rate 110 H 106 H 102 H Respiratory Rate Blood Pressure 152/94 H 148/88 H 149/86 H Pulse Oximetry 97 94 L 93 L 04/10/18 14:00 04/10/18 14:48 04/10/18 15:00 Temperature Pulse Rate 108 H 100 H 99 H Respiratory Rate 18 Blood Pressure 145/79 H 145/83 H Pulse Oximetry 99 98 95 04/10/18 15:13 04/10/18 15:15 04/10/18 15:30 Temperature Pulse Rate 103 H 99 H Respiratory Rate 17 Blood Pressure 181/107 H 153/84 H Pulse Oximetry 94 L 96 94 L 04/10/18 15:45 04/10/18 16:00 04/10/18 16:01 Temperature 98.3 F Pulse Rate 94 H 94 H 95 H Respiratory Rate 17 Blood Pressure 150/86 H 136/83 Pulse Oximetry 93 L 92 L 92 L 04/10/18 16:15 04/10/18 18:00 04/10/18 20:00 Temperature 98.9 F Pulse Rate 87 88 77 Respiratory Rate 14 Blood Pressure 137/84 122/66 Pulse Oximetry 92 L 94 L 04/10/18 21:16 04/10/18 22:00 04/11/18 00:00 Temperature 98.2 F Pulse Rate 103 H 62 57 L Respiratory Rate 16 15 Blood Pressure 107/64 Pulse Oximetry 100 98 04/11/18 00:42 04/11/18 02:00 04/11/18 04:00 Temperature 98.1 F Pulse Rate 58 L 63 57 L Respiratory Rate 20 14 Blood Pressure 98/63 L Pulse Oximetry 99 97 04/11/18 04:36 04/11/18 04:37 04/11/18 06:00 Temperature Pulse Rate 69 58 L Respiratory Rate 23 19 Blood Pressure Pulse Oximetry 98 04/11/18 07:51 04/11/18 08:00 04/11/18 08:09 Temperature Pulse Rate 57 L Respiratory Rate 14 8 L Blood Pressure Pulse Oximetry 98 95 04/11/18 11:42 04/11/18 11:44 Temperature Pulse Rate 69 Respiratory Rate 10 L 10 L Blood Pressure Pulse Oximetry 99 Intake & Output 04/10/18 04/11/18 04/11/18 18:59 06:59 18:59 Intake Total 1962 / 1962 2630 / 2630 100 / 100 Output Total 1575 / 1575 900 / 900 Balance 387 / 387 1730 / 1730 100 / 100 Weight 94 kg Intake: IV 1032 / 1032 1500 / 1500 100 / 100 Diprivan 1000 mg/100 ml Inj 1, 200 / 200 300 / 300 100 / 100 000 mg In 100 ml @ 5 MCG/KG/MIN 2.805 mls/hr IV.CONT TITRATE PRN Rx#:[id number] Cubicin Inj 1,000 MG In NS Inj 130 / 130 100 ML @ 200 mls/hr IV.SIG Q24H [facility] Rx#:[id number] Zyvox 600 mg Premix 300 ML @ 300 / 300 300 / 300 300 mls/hr IV.SIG Q12H [place] Rx#: [id number] KCl 20 mEq Premix Inj 20 meq In 400 / 400 100 ml @ 50 mls/hr IV.SIG Q2H PRN Rx#:[id number] Potassium Phosphate Inj 30 MMOL 260 / 260 In NS Inj 250 ML @ 42 mls/hr IV.SIG UNSCH PRN Rx#:[id number] fentaNYL 10 mcg/mL Premix Drip 142 / 142 500 / 500 2,500 mcg In 250 ml @ 50 MCG/HR 5 mls/hr IV.SIG TITRATE PRN Rx #:[id number] Tube Feeding 30 / 30 230 / 230 Water Bolus Amount 900 / 900 900 / 900 Output: Urine Amount (Catheter) 1575 / 1575 900 / 900 Indwelling Urethral Catheter 1575 / 1575 900 / 900 04/10/18 09:30 Sputum - Endotracheal Gram Stain - Final 04/10/18 09:30 Sputum - Endotracheal Sputum Culture - Final S. aureus MRSA 04/10/18 11:35 Blood - Peripheral Aerobic Blood Culture - Preliminary No growth in 1 day 04/10/18 11:35 Blood - Peripheral Anaerobic Blood Culture - Preliminary gram positive cocci 04/10/18 11:42 Blood - Peripheral Aerobic Blood Culture - Preliminary No growth in 1 day 04/10/18 11:42 Blood - Peripheral Anaerobic Blood Culture - Preliminary No growth in 1 day 04/09/18 08:47 Blood - Peripheral Aerobic Blood Culture - Preliminary No growth in 2 days 04/09/18 08:47 Blood - Peripheral Anaerobic Blood Culture - Final S. aureus MRSA 04/09/18 08:45 Blood - Peripheral Aerobic Blood Culture - Preliminary No growth in 2 days 04/09/18 08:45 Blood - Peripheral Anaerobic Blood Culture - Final S. aureus MRSA 04/07/18 07:25 Blood - Peripheral Aerobic Blood Culture - Final S. aureus MRSA 04/07/18 07:25 Blood - Peripheral Anaerobic Blood Culture - Final S. aureus MRSA 04/07/18 07:34 Blood - Peripheral Aerobic Blood Culture - Final S. aureus MRSA 04/07/18 07:34 Blood - Peripheral Anaerobic Blood Culture - Final S. aureus MRSA 04/06/18 04:30 Sputum - Endotracheal Gram Stain - Final 04/06/18 04:30 Sputum - Endotracheal Sputum Culture - Final S. aureus MRSA 04/05/18 21:30 Blood - Peripheral Aerobic Blood Culture - Final S. aureus MRSA 04/05/18 21:30 Blood - Peripheral Anaerobic Blood Culture - Final S. aureus MRSA Lab - Hematology Results 04/10/18 04/11/18 06:56 05:00 WBC 15.6 H 12.7 H RBC 4.25 L 3.95 L Hgb 12.7 L 11.9 L Hct 37.8 L 35.2 L MCV 88.8 89.2 MCH 29.7 30.0 MCHC 33.5 33.7 RDW 14.8 14.8 Plt Count 186 228 MPV 10.2 8.8 Lab - Chemistry Results 04/09/18 04/09/18 04/10/18 17:08 23:38 05:28 Sodium Potassium Chloride Carbon Dioxide Anion Gap BUN Creatinine Estimated GFR POC Glucose 180 H 144 H 151 H Random Glucose Calcium Phosphorus Magnesium Total Creatine Kinase CK-MB (CK-2) 04/10/18 04/10/18 04/10/18 06:56 11:20 17:12 Sodium 147 H Potassium 3.4 L Chloride 110 H Carbon Dioxide 34.9 H Anion Gap 2 L BUN 42 H Creatinine 0.67 Estimated GFR Greater than 89 POC Glucose 150 H 153 H Random Glucose 151 H Calcium 9.0 Phosphorus 1.5 L Magnesium 2.3 Total Creatine Kinase CK-MB (CK-2) 04/10/18 04/10/18 04/11/18 19:54 23:42 05:00 Sodium 144 Potassium 3.0 L 4.4 D Chloride 105 Carbon Dioxide 33.5 H Anion Gap 6 BUN 39 H Creatinine 0.56 L Estimated GFR Greater than 89 POC Glucose 140 H Random Glucose 150 H Calcium 8.5 Phosphorus 2.0 L 2.9 Magnesium 2.1 Total Creatine Kinase CK-MB (CK-2) 04/11/18 04/11/18 05:00 05:08 Sodium Potassium Chloride Carbon Dioxide Anion Gap BUN Creatinine Estimated GFR POC Glucose 158 H Random Glucose Calcium Phosphorus Magnesium Total Creatine Kinase 123 CK-MB (CK-2) Less than 1.0 Imaging: ITS Impressions Face CT 04/06/18 00:00 CONCLUSION: 1. Small focal area of soft tissue swelling involving the lateral orbital margin on the left. No abscess. Abdomen/Pelvis CT 04/10/18 00:00 CONCLUSION: 1. Findings in the patient's chest discussed on the patient's chest CT. 2. Left renal stone without hydronephrosis. 3. Slight AAA. 4. Possible gallstones within the gallbladder. 5. There is slight fluid within the peritoneal cavity in the pelvis and within left perinephric space and stranding densities involving the Gerota's fascia on the left side. The exact etiology is not certain could be inflammatory, and there is no hydronephrosis. Chest CT 04/10/18 00:00 CONCLUSION: 1. Significant worsening of the patient's lungs with interval development of numerous nodules multiple cavitary lesions which demonstrate air-fluid levels within them characteristic of a very aggressive infectious process destroying the patient's lungs could be seen with necrotizing MRSA, however the appearance is nonspecific. Chest X-Ray 04/10/18 08:03 CONCLUSION: Slight interval worsening right basilar consolidation and persistent stable right upper lobe and left basilar consolidations. Physical Exam: GENERAL: NAD on vent SKIN: Warm and dry. No rash HEAD: Atraumatic. Normocephalic. EYES: Pupils equal and round. No scleral icterus. No injection or drainage. ENT: No nasal bleeding or discharge. Mucous membranes pink and moist. NECK: Trachea midline. No JVD. CARDIOVASCULAR: Regular rate and rhythm. RESPIRATORY: No accessory muscle use. scattered rhonchi to auscultation. Breath sounds equal bilaterally. GASTROINTESTINAL: Abdomen soft, non-tender, nondistended. Hepatic and splenic margins not palpable. MUSCULOSKELETAL: Extremities without clubbing, mi.ld cyanosis, or edema. No obvious deformities. NEUROLOGICAL: awake, + eye contact, tracks, follows PSYCHIATRIC: unable to assess Assessment and Plan - Plan Sepsis High grade MRSA bacteremia with multifocal pulmonary infiltrates DEEDEE wo e/o endocarditis Necrotizing MRSA PNA vs pu,onary septic emboli following TV endocardits Acute VDRF Recs: cont zyvox (has exotoxin neutralizing effect in Necrotizing pneumonia, will avoid clindamycin) cont daptomycin, increase to 10 mg /kg fu total CKs Add Genta IV for synergy for high grade bacteremia. Source likely Necrotizing Pneumonia. Possible TV endocarditis with septic emboli already showered. Rule out epidural abscess or other foci when able. See note about Nuclear studies. No reported drug abuse. Will check Hepatitis profile. dw RN to resume care on 04/13/18. I will follow prn over the weekend. please call sooner if any new issues. Follow urine output and Cr closely.
[2018-04-11] MEDS: DAPTOmycin Inj 1,000 MG in Sodium Chlor 0.9% Inj 100 ML IV.SIG SCH (12:49)
[2018-04-11] MEDS ORDERED: Gentamicin Consult Pharmacy 1 EACH OTHER SCH (13:00)
[2018-04-11] MEDS: Gentamicin/NS 80 mg Premix 100 ML IV.SIG SCH (14:57)
[2018-04-11] MEDS: Enoxaparin Inj 40 MG/0.4 ML Syringe SQ SCH (23:19)
[2018-04-12] MEDS: Gentamicin/NS 80 mg Premix 100 ML IV.SIG SCH ×2 (02:05→14:21)
[2018-04-12] MEDS: Oral Hygiene Kit OROPHARYNG SCH ×4 (03:26→23:43)
[2018-04-12] MEDS: fentaNYL 10 mcg/mL Premix Drip 2,500 MCG/250 ML BAG IV.SIG PRN (03:26)
[2018-04-12] MEDS: Propofol 1000 mg/100 ml Inj 1,000 MG/100 ML BOTTLE IV.CONT PRN ×4 (03:27→22:01)
[2018-04-12] MEDS: Insulin NovoLIN Regular Correctional Sugar Inj SQ SCH ×4 (05:14→23:43)
[2018-04-12] MEDS: Artificial Tears Opth Drops 15 ML Bottle EACH EYE SCH ×3 (05:14→22:01)
[2018-04-12 06:59] LABS: Hematocrit 43.5 % (39.0-51.0); Hemoglobin 14.1 gm/dL (13.0-17.0); Mean Corpuscular HGB Conc 32.3 % (32.0-36.0); Mean Corpuscular Hemoglobin 29.6 pg (27.0-34.0); Mean Corpuscular Volume 91.5 fL (80.0-100.0); Mean Platelet Volume 9.3 fL (7.0-11.0); Platelet Count 204 th/mm3 (150-450); Red Blood Count 4.76 mil/mm3 (4.50-5.90); Red Cell Distribution Width 15.4 % (11.6-17.2); White Blood Count 11.3 th/mm3 (4.0-11.0)
[2018-04-12 07:17] LABS: Anion Gap 6 meq/L (5-15); Blood Urea Nitrogen 36 mg/dL (7-18); Calcium 8.7 mg/dL (8.5-10.1); Carbon Dioxide 34.8 meq/L (21.0-32.0); Chloride 105 meq/L (98-107); Glomerular Filtration Rate Greater Than 89 mL/min (>89); Glucose,Random 146 mg/dL (74-106); Magnesium 2.5 mg/dL (1.5-2.5); Phosphorus 3.4 mg/dL (2.5-4.9); Potassium 4.4 meq/L (3.5-5.1); Sodium 146 meq/L (136-145)
[2018-04-12] MEDS: Chlorhexidine 0.12% Oral Kit 15 ML UDC OROPHARYNG SCH ×2 (09:13→20:22)
[2018-04-12] MEDS: dilTIAZem 60 MG Tablet PO SCH ×4 (09:14→20:22)
[2018-04-12] MEDS: Famotidine PF Inj 20 MG/2 ML Vial IV.PUSH SCH ×2 (09:16→20:21)
[2018-04-12] MEDS: MethylPREDNISolone Sod Succinate Inj 40 MG/ML Vial IV.PUSH SCH ×2 (09:16→20:21)
--- NOTE | 2018-04-12 09:44 | P.PNCC ---
Subjective Subjective Remarks/Hospital Course: Patient is 72-year-old male with past medical history of COPD, tobacco abuse and hypertension who came to the emergency room for shortness of breath via EMS. On EMS arrival saturation was in the 90s, but patient had significant shortness of breath and dyspnea. Patient received Solu-Medrol 125 mg IV and breathing treatments by EMS and was brought to the emergency department. In the emergency department patient received further breathing treatments and chest x-ray showed patchy infiltrate on bilateral lung fitzgerald. Initially maintaining oxygen saturation with nasal cannula. Initial blood pressure was 85 /65, improved with normal saline boluses. WBC count was 17.1. Patient was deemed septic from pneumonia and patient was ordered to receive vancomycin and Zosyn. While receiving vancomycin patient acutely decompensated became extremely short of breath and developed erythematous maculopapular rash involving face torso armpits and groin region. Emergently intubated and placed on mechanical ventilation by the ED physician. Received IV 50 mg Benadryl. Critical care medicine was requested to admit the patient. I evaluated the patient immediately in the emergency department. Patient is intubated on Versed and fentanyl infusion however he is very asynchronous with the vent triggering ventilator alarms. Severe bilateral expiratory wheezing heard on auscultation. He has extensive skin rash predominantly face forehead torso armpit and groins. Appears like patient had anaphylactic reaction to vancomycin complicated by COPD exacerbation and pneumonia. I have ordered additional Solu-Medrol 100 mg x1 scheduled Benadryl and famotidine, antibiotics with cefepime and Levaquin. Increase Versed infusion, add propofol and use neuromuscular paralysis as needed. Will request pharmacy to add vancomycin to allergy. ED physician Dr. Slater had noticed that patient had some swelling on the left side of his face on arrival, however the skin rash after vancomycin was started was new. Patient remains hypotensive has received 2 L of normal saline in the emergency department and no significant urine output. I have ordered additional 2 L normal saline bolus and maintenance fluid at 84 mL/h. Use Levophed as needed to keep map above 65 Subjective 04/06: Off norepinephrine drip. Currently resting in bed in no acute distress on midazolam and fentanyl drips. Start tube feeding today. 04/07: Remains sedated, intubated on mechanical ventilation. Blood cultures growing MRSA 04/08: remains sedated and intubated. repeat cultures still growing MRSA 2/4 cultures. likely need to repeat BCx either today or tomorrow. agree with narrowing spectrum abx. performed DEEDEE at ID recommendation (need to r/o endocarditis), but no evidence of vegetations. remains hypoxic. off vasopressors today. 04/09: adequate auto-diuresis overnight. off vasopressors. on sedation vacation. hypoxia improving. 04/10 Patient remains intubated and sedated with Fentanyl infusion. Became tachycardic and tachypneic overnight requiring increase sedation. Afebrile. 04/11 Patient is intubated and sedated. Afebrile. 04/12 Patient remains intubated and sedated with Diprivan and Fentanyl infusion, Afebrile. Objective Vital Signs / I&O: Vital Signs 04/11/18 09:45 04/11/18 10:00 04/11/18 10:15 Temperature Pulse Rate 61 59 L 57 L Respiratory Rate Blood Pressure 106/68 113/73 113/73 Pulse Oximetry 97 98 99 04/11/18 10:30 04/11/18 10:45 04/11/18 11:00 Temperature Pulse Rate 60 58 L 57 L Respiratory Rate Blood Pressure 117/73 114/73 118/75 Pulse Oximetry 98 98 99 04/11/18 11:15 04/11/18 11:30 04/11/18 11:42 Temperature Pulse Rate 54 L 55 L Respiratory Rate 10 L Blood Pressure 120/79 121/78 Pulse Oximetry 99 98 99 04/11/18 11:44 04/11/18 11:45 04/11/18 12:00 Temperature Pulse Rate 69 70 65 Respiratory Rate 10 L Blood Pressure 136/91 H 120/76 Pulse Oximetry 97 96 04/11/18 12:15 04/11/18 12:17 04/11/18 12:30 Temperature Pulse Rate 95 H 85 97 H Respiratory Rate Blood Pressure 182/101 H 171/90 H 172/97 H Pulse Oximetry 83 L 99 78 L 04/11/18 13:00 04/11/18 13:03 04/11/18 13:30 Temperature Pulse Rate 100 H 94 H 102 H Respiratory Rate Blood Pressure 161/101 H 161/98 H 152/84 H Pulse Oximetry 97 96 04/11/18 14:00 04/11/18 14:30 04/11/18 15:00 Temperature Pulse Rate 117 H 95 H 94 H Respiratory Rate Blood Pressure 168/98 H 145/81 H 150/89 H Pulse Oximetry 97 92 L 98 04/11/18 15:40 04/11/18 16:00 04/11/18 16:30 Temperature 97.2 F L Pulse Rate 114 H 77 77 Respiratory Rate 21 Blood Pressure 108/68 100/65 Pulse Oximetry 94 L 91 L 91 L 04/11/18 17:00 04/11/18 17:30 04/11/18 18:00 Temperature Pulse Rate 71 67 68 Respiratory Rate Blood Pressure 97/63 L 97/61 L 117/72 Pulse Oximetry 92 L 95 97 04/11/18 18:30 04/11/18 19:00 04/11/18 19:30 Temperature Pulse Rate 66 65 65 Respiratory Rate Blood Pressure 126/77 132/79 127/78 Pulse Oximetry 98 98 95 04/11/18 20:00 04/11/18 20:30 04/11/18 21:00 Temperature Pulse Rate 65 66 64 Respiratory Rate Blood Pressure 135/78 128/79 134/82 Pulse Oximetry 95 87 L 100 04/11/18 21:08 04/11/18 21:30 04/11/18 22:00 Temperature Pulse Rate 66 71 70 Respiratory Rate 14 Blood Pressure 124/76 139/80 Pulse Oximetry 100 100 99 04/11/18 22:30 04/11/18 23:00 04/11/18 23:30 Temperature Pulse Rate 71 67 65 Respiratory Rate Blood Pressure 129/78 132/80 138/81 Pulse Oximetry 100 100 100 04/11/18 23:49 04/12/18 00:00 04/12/18 00:30 Temperature Pulse Rate 64 66 71 Respiratory Rate 14 Blood Pressure 136/84 144/82 H Pulse Oximetry 100 100 04/12/18 01:00 04/12/18 01:30 04/12/18 02:00 Temperature Pulse Rate 72 73 72 Respiratory Rate Blood Pressure 133/83 134/81 133/83 Pulse Oximetry 100 100 100 04/12/18 02:31 04/12/18 03:00 04/12/18 03:30 Temperature Pulse Rate 109 H 70 71 Respiratory Rate Blood Pressure 172/98 H 121/75 116/76 Pulse Oximetry 99 99 100 04/12/18 03:51 04/12/18 04:00 04/12/18 06:00 Temperature Pulse Rate 81 68 72 Respiratory Rate 14 Blood Pressure 105/67 Pulse Oximetry 100 100 04/12/18 07:00 04/12/18 08:22 Temperature Pulse Rate 89 Respiratory Rate 16 14 Blood Pressure Pulse Oximetry 100 Intake & Output 04/11/18 04/12/18 04/12/18 18:59 06:59 18:59 Intake Total 1050 / 1050 1700 / 1700 100 / 100 Output Total 1200 / 1200 800 / 800 Balance -150 / -150 900 / 900 100 / 100 Weight 95 kg Intake: IV 1050 / 1050 800 / 800 100 / 100 Diprivan 1000 mg/100 ml Inj 1, 200 / 200 300 / 300 100 / 100 000 mg In 100 ml @ 5 MCG/KG/MIN 2.805 mls/hr IV.CONT TITRATE PRN Rx#:[id number] Teflaro Inj 600 MG In NS Inj 100 / 100 100 / 100 100 ML @ 100 mls/hr IV.SIG Q12H [facility] Rx#:[id number] Cubicin Inj 1,000 MG In NS Inj 100 / 100 100 ML @ 200 mls/hr IV.SIG Q24H [facility] Rx#:[id number] Gentamicin/NS 80 mg Premix 100 100 / 100 100 / 100 ML @ 200 mls/hr IV.SIG Q12H [facility] Rx#:[id number] Zyvox 600 mg Premix 300 ML @ 300 / 300 300 / 300 300 mls/hr IV.SIG Q12H [facility] Rx#: [id number] fentaNYL 10 mcg/mL Premix Drip 250 / 250 2,500 mcg In 250 ml @ 50 MCG/HR 5 mls/hr IV.SIG TITRATE PRN Rx #:[id number] Water Bolus Amount 900 / 900 Output: Urine Amount (Catheter) 1000 / 1000 800 / 800 Indwelling Urethral Catheter 1000 / 1000 800 / 800 Gastric Drainage 200 / 200 Orogastric Tube 200 / 200 Other: # Bowel Movements 0 0 Result Diagrams: 04/12/18 06:16 04/12/18 06:16 Other Results: Laboratory Results - last 12 hr 04/11/18 04/12/18 04/12/18 23:12 05:10 06:16 WBC 11.3 H RBC 4.76 Hgb 14.1 D Hct 43.5 MCV 91.5 MCH 29.6 MCHC 32.3 RDW 15.4 Plt Count 204 MPV 9.3 Sodium Potassium Chloride Carbon Dioxide Anion Gap BUN Creatinine Estimated GFR POC Glucose 117 H 140 H Random Glucose Calcium Phosphorus Magnesium 04/12/18 06:16 WBC RBC Hgb Hct MCV MCH MCHC RDW Plt Count MPV Sodium 146 H Potassium 4.4 Chloride 105 Carbon Dioxide 34.8 H Anion Gap 6 BUN 36 H Creatinine 0.67 Estimated GFR Greater than 89 POC Glucose Random Glucose 146 H Calcium 8.7 Phosphorus 3.4 Magnesium 2.5 Imaging: Face CT 04/06/18 00:00 CONCLUSION: 1. Small focal area of soft tissue swelling involving the lateral orbital margin on the left. No abscess. Abdomen/Pelvis CT 04/10/18 00:00 CONCLUSION: 1. Findings in the patient's chest discussed on the patient's chest CT. 2. Left renal stone without hydronephrosis. 3. Slight AAA. 4. Possible gallstones within the gallbladder. 5. There is slight fluid within the peritoneal cavity in the pelvis and within left perinephric space and stranding densities involving the Gerota's fascia on the left side. The exact etiology is not certain could be inflammatory, and there is no hydronephrosis. Chest CT 04/10/18 00:00 CONCLUSION: 1. Significant worsening of the patient's lungs with interval development of numerous nodules multiple cavitary lesions which demonstrate air-fluid levels within them characteristic of a very aggressive infectious process destroying the patient's lungs could be seen with necrotizing MRSA, however the appearance is nonspecific. Chest X-Ray 04/10/18 08:03 CONCLUSION: Slight interval worsening right basilar consolidation and persistent stable right upper lobe and left basilar consolidations. Objective Remarks: GENERAL: This is an elderly male, orotracheally intubated, lying in bed. SKIN: Warm and dry. HEAD: Atraumatic. Normocephalic. EYES: Pupils equal and round. No scleral icterus. No injection or drainage. ENT: No nasal bleeding or discharge. Mucous membranes pink and moist. NECK: Trachea midline. No JVD. CARDIOVASCULAR: Regular rate and rhythm. sinus. RESPIRATORY: No accessory muscle use. equal chest rise. GASTROINTESTINAL: Abdomen soft, non-tender, nondistended. no guarding. MUSCULOSKELETAL: Extremities without clubbing, cyanosis, or edema. No obvious deformities. NEUROLOGICAL: Sedated Assessment and Plan - Problem List (1) Anaphylaxis Code(s): T78.2XXA - Anaphylactic shock, unspecified, initial encounter Status : Acute (2) COPD with acute exacerbation Code(s): J44.1 - Chronic obstructive pulmonary disease with (acute) exacerbation Status: Acute (3) Bilateral pneumonia Code(s): J18.9 - Pneumonia, unspecified organism Status: Acute (4) Allergic reaction caused by a drug Code(s): T78.40XA - Allergy, unspecified, initial encounter Status: Acute (5) Acute respiratory failure Code(s): J96.00 - Acute respiratory failure, unspecified whether with hypoxia or hypercapnia Status: Acute (6) Severe sepsis Code(s): A41.9 - Sepsis, unspecified organism; R65.20 - Severe sepsis without septic shock Status: Acute (7) Leukocytosis Code(s): D72.829 - Elevated white blood cell count, unspecified Status: Acute (8) Hypotension Code(s): I95.9 - Hypotension, unspecified Status: Acute (9) Acute kidney injury Code(s): N17.9 - Acute kidney failure, unspecified Status: Acute (10) Hyponatremia Code(s): E87.1 - Hypo-osmolality and hyponatremia Status: Acute (11) Hyperglycemia Code(s): R73.9 - Hyperglycemia, unspecified Status: Acute (12) History of hypertension Code(s): Z86.79 - Personal history of other diseases of the circulatory system Status: Chronic (13) Tobacco abuse Code(s): Z72.0 - Tobacco use Status: Chronic (14) History of COPD Code(s): Z87.09 - Personal history of other diseases of the respiratory system Status: Chronic - Assessment and Plan Plan: NEURO/Psych: Acute metabolic encephalopathy - On Fentanyl and Diprivan infusion for sedation. Daily sedation vacation. -CT face revealed left orbital swelling/lateral. -Monitor neuro status. RESP: Acute hypoxic respiratory failure- slowly improving Anaphylactic reaction to vancomycin Community acquired MRSA pneumonia Acute COPD exacerbation Bilateral pneumonia Coronary artery calcification Tobaccoism Left lower lobe 1.5 cm pulmonary nodule. Outpatient PET scan -Emergently intubated and placed on mechanical ventilation in the emergency department -Continue with vent support keep sats >92% -Albuterol/ipratropium aerosols every 4 hours with albuterol aerosols every 2 hours as needed dyspnea -SBT daily as naye -CT chest 04/10: Significant worsening of the patient's lungs with interval development of numerous nodules multiple cavitary lesions which demonstrate air- fluid levels within them characteristic of a very aggressive infectious process destroying the patient's lungs could be seen with necrotizing MRSA -On Solumederol 40mg IV Q12 -Vancomycin added to allergy -CT of the chest 04/06 revealed pulmonary infiltrates. 1.5 cm left lower lobe pulmonary nodule. Outpatient PET scan -nicotine patch 7 mg daily. - abx as below CV: History of hypertension septic shock- resolved Monitor HR and BP keep MAP>65mmHg. Cardizem 60mg Q6 Lactic acid 1.9 on 04/05 Home medications include Lisinopril 40 mg daily metoprolol 200 mg twice daily GI: Hypoalbuminemia Acute protein calorie malnutrition - moderate tube feeds (Jevity 1.5 goal 55 cc an hour) place on hold, IV famotidine for GI prophylaxis -Docusate sodium/senna 1 tablet twice daily for bowel regimen -Check KUB abdomen r/o ileus -Bowel regimen with Colace, Senna and Lactulose Renal/FEN/: Acute kidney injury- improving. Acute urinary retention Hypernatremia -Monitor renal function, I/O's,. continue Shine- has had 2 episodes of urinary retention. Electrolytes replacement per protocol. free water to 300mL po q4h. Monitor sodium level. ID: Septic shock- resolved Multifocal pneumonia MRSA bacteremia on 04/05, 04/07 MRSA pneumonia -Continue abx,( Zyvox, Gentamicin and Daptomycin) ID is following. Monitor CK - BC 04/05,04/07: MRSA, follow up BC from 04/09 MRSA, 04/10 BC: MRSA. Check BC x sets today -Sputum cx 04/06, 04/10: MRSA , - DEEDEE 04/08 without vegetations, normal EF -For MRI brain and T-L spine HEME: -Monitor CBC, coags ENDO: Hyperglycemia -Electrolyte replacement per protocol -Sliding scale insulin Accu-Cheks every 6 hours to maintain euglycemia PROPH: -Bilateral lower extremity SCDs. Enoxaparin/famotidine LINES: -Utilize peripheral IVs, Time spent on critical care excluding procedures: 30 min (1) Anaphylaxis Qualifiers: Encounter type: initial encounter Qualified Code(s): T78.2XXA - Anaphylactic shock, unspecified, initial encounter (3) Bilateral pneumonia Qualifiers: Pneumonia type: due to unspecified organism Lung location: unspecified part of lung Qualified Code(s): J18.9 - Pneumonia, unspecified organism (4) Allergic reaction caused by a drug Qualifiers: Encounter type: initial encounter Qualified Code(s): T78.40XA - Allergy, unspecified, initial encounter (5) Acute respiratory failure Qualifiers: Respiratory failure complication: unspecified whether with hypoxia or hypercapnia Qualified Code(s): J96.00 - Acute respiratory failure, unspecified whether with hypoxia or hypercapnia (7) Leukocytosis Qualifiers: Leukocytosis type: unspecified Qualified Code(s): D72.829 - Elevated white blood cell count, unspecified (8) Hypotension Qualifiers: Hypotension type: unspecified hypotension type Qualified Code(s): I95.9 - Hypotension, unspecified
--- NOTE | 2018-04-12 10:37 | XR ---
EXAM DATE: 04/12/2018 10:30 AM EST AGE/SEX: 72 years / Male INDICATIONS: Rule out possible ileus. CLINICAL DATA: This is the patient's subsequent encounter. Patient reports that signs and symptoms h ave been present for 1 week and indicates a pain score of Nonresponsive. MEDICAL/SURGICAL HISTORY: Non-responsive. Non-responsive. COMPARISON: [facility] – [place], CT ABDOMEN & PELVIS W CONTRAST, 04/10/2018. . FINDINGS: The abdominal bowel gas pattern is normal. No abnormal masses, calcifications, or organomegaly is s een. The osseous structures are unremarkable. CONCLUSION: No evidence of ileus. Electronically signed by: Arielle Short MD Board Certified Radiologist 04/12/2018 10:36 AM J CARLOS T
[2018-04-12] MEDS: Docusate Sodium 100 MG Capsule PO SCH ×2 (10:45→20:22)
[2018-04-12] MEDS: Sennosides Liq 8.8 MG/5 ML UDC PO SCH (10:47)
[2018-04-12] MEDS ORDERED: Sodium Chloride 0.9% 2 ML Flush PRN IV.FLUSH (11:07)
[2018-04-12] MEDS: DAPTOmycin Inj 1,000 MG in Sodium Chlor 0.9% Inj 100 ML IV.SIG SCH (12:29)
--- NOTE | 2018-04-12 12:56 | P.PNID ---
Subjective Remarks: ID cross cover for Dr. Suarez. Chart reviewed. 72 yo toba+ male with COPD, HTN admitted with SOB rapidly deteriorated from resp standpoint and required intubation, placement on mech vent'n down to 35% FiO2 and PEEP 6, not much secretions Infiltrates on CT, multi focal He was started on broad spectrum abx (zosyn,, zyvox, levaquin) High grade bacteremia, MRSA 4/4 very quick - at 1 day h/o vanco allergy Initially on pressors, but now off 2 D echo negative, but TV not well visualized on limited echo Overnight events reviewed. Hypothermia at times no rash No diarrhea High grade MRSA bacteremia CT chest:extensive infiltrates/septic emboli, necrotizing pneumonia. DEEDEE negative for endocarditis. off pressors Follows simple commands per RN Urine output good Secretions brown moderate remains on vent Antibiotics: daptomycin zyvox Teflaro IV (added by ) Genta IV for synergy Lines: Line sites okay Past Medical History: COPD Allergies/Adverse Reactions: Allergies bee venom protein (honey bee) Allergy (Unknown, Verified 04/05/18 21:12) Edema vancomycin Allergy (Verified 04/05/18 23:33) Anaphylaxis Objective Vital Signs 04/11/18 13:00 04/11/18 13:03 04/11/18 13:30 Temperature Pulse Rate 100 H 94 H 102 H Respiratory Rate Blood Pressure 161/101 H 161/98 H 152/84 H Pulse Oximetry 97 96 04/11/18 14:00 04/11/18 14:30 04/11/18 15:00 Temperature Pulse Rate 117 H 95 H 94 H Respiratory Rate Blood Pressure 168/98 H 145/81 H 150/89 H Pulse Oximetry 97 92 L 98 04/11/18 15:40 04/11/18 16:00 04/11/18 16:30 Temperature 97.2 F L Pulse Rate 114 H 77 77 Respiratory Rate 21 Blood Pressure 108/68 100/65 Pulse Oximetry 94 L 91 L 91 L 04/11/18 17:00 04/11/18 17:30 04/11/18 18:00 Temperature Pulse Rate 71 67 68 Respiratory Rate Blood Pressure 97/63 L 97/61 L 117/72 Pulse Oximetry 92 L 95 97 04/11/18 18:30 04/11/18 19:00 04/11/18 19:30 Temperature Pulse Rate 66 65 65 Respiratory Rate Blood Pressure 126/77 132/79 127/78 Pulse Oximetry 98 98 95 04/11/18 20:00 04/11/18 20:30 04/11/18 21:00 Temperature Pulse Rate 65 66 64 Respiratory Rate Blood Pressure 135/78 128/79 134/82 Pulse Oximetry 95 87 L 100 04/11/18 21:08 04/11/18 21:30 04/11/18 22:00 Temperature Pulse Rate 66 71 70 Respiratory Rate 14 Blood Pressure 124/76 139/80 Pulse Oximetry 100 100 99 04/11/18 22:30 04/11/18 23:00 04/11/18 23:30 Temperature Pulse Rate 71 67 65 Respiratory Rate Blood Pressure 129/78 132/80 138/81 Pulse Oximetry 100 100 100 04/11/18 23:49 04/12/18 00:00 04/12/18 00:30 Temperature Pulse Rate 64 66 71 Respiratory Rate 14 Blood Pressure 136/84 144/82 H Pulse Oximetry 100 100 04/12/18 01:00 04/12/18 01:30 04/12/18 02:00 Temperature Pulse Rate 72 73 72 Respiratory Rate Blood Pressure 133/83 134/81 133/83 Pulse Oximetry 100 100 100 04/12/18 02:31 04/12/18 03:00 04/12/18 03:30 Temperature Pulse Rate 109 H 70 71 Respiratory Rate Blood Pressure 172/98 H 121/75 116/76 Pulse Oximetry 99 99 100 04/12/18 03:51 04/12/18 04:00 04/12/18 06:00 Temperature Pulse Rate 81 68 72 Respiratory Rate 14 Blood Pressure 105/67 Pulse Oximetry 100 100 04/12/18 07:00 04/12/18 08:00 04/12/18 08:22 Temperature 97 F L Pulse Rate 89 76 Respiratory Rate 16 14 Blood Pressure 113/69 Pulse Oximetry 100 100 04/12/18 08:30 04/12/18 09:00 04/12/18 09:30 Temperature Pulse Rate 76 102 H 117 H Respiratory Rate Blood Pressure 112/72 156/93 H 169/102 H Pulse Oximetry 100 97 95 04/12/18 09:31 04/12/18 10:00 04/12/18 11:22 Temperature Pulse Rate 119 H 115 H 112 H Respiratory Rate 17 Blood Pressure 155/91 H 155/87 H Pulse Oximetry 94 L 94 L 96 04/12/18 12:00 Temperature 98.6 F Pulse Rate 102 H Respiratory Rate Blood Pressure 150/83 H Pulse Oximetry 96 Intake & Output 04/11/18 04/12/18 04/12/18 18:59 06:59 18:59 Intake Total 1050 / 1050 1700 / 1700 100 / 100 Output Total 1200 / 1200 800 / 800 Balance -150 / -150 900 / 900 100 / 100 Weight 95 kg Intake: IV 1050 / 1050 800 / 800 100 / 100 Diprivan 1000 mg/100 ml Inj 1, 200 / 200 300 / 300 100 / 100 000 mg In 100 ml @ 5 MCG/KG/MIN 2.805 mls/hr IV.CONT TITRATE PRN Rx#:[id number] Teflaro Inj 600 MG In NS Inj 100 / 100 100 / 100 100 ML @ 100 mls/hr IV.SIG Q12H [facility] Rx#:[id number] Cubicin Inj 1,000 MG In NS Inj 100 / 100 100 ML @ 200 mls/hr IV.SIG Q24H [facility] Rx#:[id number] Gentamicin/NS 80 mg Premix 100 100 / 100 100 / 100 ML @ 200 mls/hr IV.SIG Q12H [facility] Rx#:[id number] Zyvox 600 mg Premix 300 ML @ 300 / 300 300 / 300 300 mls/hr IV.SIG Q12H [facility] Rx#: [id number] fentaNYL 10 mcg/mL Premix Drip 250 / 250 2,500 mcg In 250 ml @ 50 MCG/HR 5 mls/hr IV.SIG TITRATE PRN Rx #:[id number] Water Bolus Amount 900 / 900 Output: Urine Amount (Catheter) 1000 / 1000 800 / 800 Indwelling Urethral Catheter 1000 / 1000 800 / 800 Gastric Drainage 200 / 200 Orogastric Tube 200 / 200 Other: # Bowel Movements 0 0 04/10/18 11:35 Blood - Peripheral Aerobic Blood Culture - Final S. aureus MRSA 04/10/18 11:35 Blood - Peripheral Anaerobic Blood Culture - Final S. aureus MRSA 04/10/18 11:42 Blood - Peripheral Aerobic Blood Culture - Preliminary No growth in 2 days 04/10/18 11:42 Blood - Peripheral Anaerobic Blood Culture - Final S. aureus MRSA 04/09/18 08:47 Blood - Peripheral Aerobic Blood Culture - Preliminary No growth in 3 days 04/09/18 08:47 Blood - Peripheral Anaerobic Blood Culture - Final S. aureus MRSA 04/09/18 08:45 Blood - Peripheral Aerobic Blood Culture - Preliminary gram positive cocci 04/09/18 08:45 Blood - Peripheral Anaerobic Blood Culture - Final S. aureus MRSA 04/10/18 09:30 Sputum - Endotracheal Gram Stain - Final 04/10/18 09:30 Sputum - Endotracheal Sputum Culture - Final S. aureus MRSA 04/07/18 07:25 Blood - Peripheral Aerobic Blood Culture - Final S. aureus MRSA 04/07/18 07:25 Blood - Peripheral Anaerobic Blood Culture - Final S. aureus MRSA 04/07/18 07:34 Blood - Peripheral Aerobic Blood Culture - Final S. aureus MRSA 04/07/18 07:34 Blood - Peripheral Anaerobic Blood Culture - Final S. aureus MRSA Lab - Hematology Results 04/11/18 04/12/18 05:00 06:16 WBC 12.7 H 11.3 H RBC 3.95 L 4.76 Hgb 11.9 L 14.1 D Hct 35.2 L 43.5 MCV 89.2 91.5 MCH 30.0 29.6 MCHC 33.7 32.3 RDW 14.8 15.4 Plt Count 228 204 MPV 8.8 9.3 Lab - Chemistry Results 04/10/18 04/10/18 04/10/18 17:12 19:54 23:42 Sodium Potassium 3.0 L Chloride Carbon Dioxide Anion Gap BUN Creatinine Estimated GFR POC Glucose 153 H 140 H Random Glucose Calcium Phosphorus 2.0 L Magnesium Total Creatine Kinase CK-MB (CK-2) 04/11/18 04/11/18 04/11/18 05:00 05:00 05:08 Sodium 144 Potassium 4.4 D Chloride 105 Carbon Dioxide 33.5 H Anion Gap 6 BUN 39 H Creatinine 0.56 L Estimated GFR Greater than 89 POC Glucose 158 H Random Glucose 150 H Calcium 8.5 Phosphorus 2.9 Magnesium 2.1 Total Creatine Kinase 123 CK-MB (CK-2) Less than 1.0 04/11/18 04/11/18 04/11/18 11:21 12:03 18:08 Sodium Potassium 4.4 Chloride Carbon Dioxide Anion Gap BUN Creatinine Estimated GFR POC Glucose 124 H 148 H Random Glucose Calcium Phosphorus Magnesium Total Creatine Kinase CK-MB (CK-2) 04/11/18 04/12/18 04/12/18 23:12 05:10 06:16 Sodium 146 H Potassium 4.4 Chloride 105 Carbon Dioxide 34.8 H Anion Gap 6 BUN 36 H Creatinine 0.67 Estimated GFR Greater than 89 POC Glucose 117 H 140 H Random Glucose 146 H Calcium 8.7 Phosphorus 3.4 Magnesium 2.5 Total Creatine Kinase CK-MB (CK-2) 04/12/18 11:59 Sodium Potassium Chloride Carbon Dioxide Anion Gap BUN Creatinine Estimated GFR POC Glucose 142 H Random Glucose Calcium Phosphorus Magnesium Total Creatine Kinase CK-MB (CK-2) Imaging: ITS Impressions Face CT 04/06/18 00:00 CONCLUSION: 1. Small focal area of soft tissue swelling involving the lateral orbital margin on the left. No abscess. Abdomen/Pelvis CT 04/10/18 00:00 CONCLUSION: 1. Findings in the patient's chest discussed on the patient's chest CT. 2. Left renal stone without hydronephrosis. 3. Slight AAA. 4. Possible gallstones within the gallbladder. 5. There is slight fluid within the peritoneal cavity in the pelvis and within left perinephric space and stranding densities involving the Gerota's fascia on the left side. The exact etiology is not certain could be inflammatory, and there is no hydronephrosis. Chest CT 04/10/18 00:00 CONCLUSION: 1. Significant worsening of the patient's lungs with interval development of numerous nodules multiple cavitary lesions which demonstrate air-fluid levels within them characteristic of a very aggressive infectious process destroying the patient's lungs could be seen with necrotizing MRSA, however the appearance is nonspecific. Chest X-Ray 04/10/18 08:03 CONCLUSION: Slight interval worsening right basilar consolidation and persistent stable right upper lobe and left basilar consolidations. Abdomen X-Ray 04/12/18 09:42 CONCLUSION: No evidence of ileus. Physical Exam: GENERAL: NAD on vent SKIN: Warm and dry. No rash HEAD: Atraumatic. Normocephalic. EYES: Pupils equal and round. No scleral icterus. No injection or drainage. ENT: No nasal bleeding or discharge. Mucous membranes pink and moist. NECK: Trachea midline. No JVD. CARDIOVASCULAR: Regular rate and rhythm. RESPIRATORY: No accessory muscle use. scattered rhonchi to auscultation. Breath sounds equal bilaterally. GASTROINTESTINAL: Abdomen soft, non-tender, nondistended. Hepatic and splenic margins not palpable. MUSCULOSKELETAL: Extremities without clubbing, mi.ld cyanosis, or edema. No obvious deformities. NEUROLOGICAL: awake, + eye contact, tracks, follows PSYCHIATRIC: unable to assess Assessment and Plan - Plan Sepsis High grade MRSA bacteremia with multifocal pulmonary infiltrates DEEDEE wo e/o endocarditis Necrotizing MRSA PNA vs pu,onary septic emboli following TV endocardits Acute VDRF Recs: cont IV Zyvox (has exotoxin neutralizing effect in Necrotizing pneumonia, will avoid clindamycin) cont daptomycin IV (if CK increases Can be switched to Teflaro q8hrs dosing) GEMA Ahn would like to assess if adding Genta and changing lines makes a difference. Genta IV added at noon on 04/11/2017 approx. Will repeat blood cultures today and if these remain negative then Teflaro may not be needed. Continue Genta IV for synergy for high grade bacteremia. Source likely Necrotizing Pneumonia. Possible TV endocarditis with septic emboli already showered. Will get MRI Brain and T-spine plus L-spine. Concern that there may be other occult foci that may not have been addressed yet. Case dw who agrees with the plan, patient currently has no issues with travel to radiology. All PIVs changed today and should be swapped every 3-4 days until blood cultures negative. Patient had no CLs per my randolph RN and . Check HIV Antibody screen. No reported drug abuse. Will check Hepatitis profile. randolph Valente to resume care on 04/13/18. Follow urine output and Cr closely.
[2018-04-12] MEDS ORDERED: Pharmacy Ordered Lab Info OTHER ONE (14:45)
[2018-04-12 15:08] LABS: Hepatitits B Surface Antigen Nonreactive (Nonreactive)
[2018-04-12 15:36] LABS: Hepatitis A IgM Antibody Nonreactive (Nonreactive)
[2018-04-12] MEDS ORDERED: Gadobutrol PF 10 MMOL/10 ML Vial (for RAD) IV.SIG ONE (17:31)
--- NOTE | 2018-04-12 17:48 | MR ---
EXAM DATE: 04/12/2018 5:28 PM EST AGE/SEX: 72 years / Male INDICATIONS: Abscess. CLINICAL DATA: This is the patient's initial encounter. Patient reports that signs and symptoms have been present for 2 weeks and indicates a pain score of 0/10. MEDICAL/SURGICAL HISTORY: Chronic obstructive pulmonary disease. Hypertension. Fusion, lumbar. COMPARISON: [facility] – [place], MR HEAD W & W/O CONTRAST, 04/12/2018. . TECHNIQUE: Multiplanar, multisequence MRI of the thoracic spine was performed without and with 9cc m l Gadavist (gadobutrol) contrast as a single exam dose. FINDINGS: Vertebrae: Normal vertebral body height. Homogeneous marrow signal. Alignment: Normal. Cord: Normal position and configuration. Post Contrast: No abnormal areas of enhancement are seen in the cord, dural or paraspinal regions. Miscellaneous: Small bilateral pleural effusions. T1-T2: The thecal sac has a normal diameter. No evidence of disc bulge or protrusion. T2-T3: The thecal sac has a normal diameter. No evidence of disc bulge or protrusion. T3-T4: The thecal sac has a normal diameter. No evidence of disc bulge or protrusion. T4-T5: The thecal sac has a normal diameter. No evidence of disc bulge or protrusion. T5-T6: The thecal sac has a normal diameter. No evidence of disc bulge or protrusion. T6-T7: The thecal sac has a normal diameter. No evidence of disc bulge or protrusion. T7-T8: The thecal sac has a normal diameter. No evidence of disc bulge or protrusion. T8-T9: The thecal sac has a normal diameter. No evidence of disc bulge or protrusion. T9-T10: The thecal sac has a normal diameter. No evidence of disc bulge or protrusion. T10-T11: The thecal sac has a normal diameter. No evidence of disc bulge or protrusion. T11-T12: The thecal sac has a normal diameter. No evidence of disc bulge or protrusion. T12-L1: The thecal sac has a normal diameter. No evidence of disc bulge or protrusion. CONCLUSION: 1. Small bilateral pleural effusions. 2. Spinal canal is widely patent throughout without cord compromise. No findings of a paravertebral abscess. Electronically signed by: Kuldip Sims MD Board Certified Radiologist 04/12/2018 5:47 PM EST
--- NOTE | 2018-04-12 17:53 | MR ---
EXAM DATE: 04/12/2018 5:35 PM EST AGE/SEX: 72 years / Male INDICATIONS: Abscess. CLINICAL DATA: This is the patient's initial encounter. Patient reports that signs and symptoms have been present for 2 weeks and indicates a pain score of 0/10. MEDICAL/SURGICAL HISTORY: Chronic obstructive pulmonary disease. Hypertension. Fusion, lumbar. COMPARISON: No prior exams available for comparison. TECHNIQUE: Multiplanar, multisequence examination of the brain was performed without and with 9cc ml Gadavist (gadobutrol) contrast as a single exam dose. FINDINGS: Cerebrum: Mild cortical and central atrophy. No evidence of midline shift, mass lesion, hemorrhage or acute infarction. No extraaxial fluid collections are seen. The pituitary gland and suprasellar cistern are normal in configuration. White Matter: Very minimal periventricular and scattered deep white matter tract areas of small vess el ischemic demyelination. Posterior Fossa: The cerebellum and brainstem are intact. The 4th ventricle is midline. The cerebel lopontine angle is unremarkable. The cerebellar tonsils are normal in position. Diffusion Imaging: No focal areas of restricted diffusion are seen. No evidence of acute infarction . Extracranial: The visualized portions of the orbits and paranasal sinuses are unremarkable. There is some fluid or secretions identified in the posterior nasopharynx just anterior to the adenoids. Post Contrast: No abnormal areas of parenchymal or dural enhancement. No evidence of blood-brain ba rrier breakdown. CONCLUSION: 1. Some chronic changes with mild cortical and central atrophy. Minimal periventricular and scattere d deep white matter tract areas of small vessel ischemic demyelination. 2. Some fluid or secretions identified in the dependent portion of the nasopharynx. 3. Otherwise negative. No findings of intracranial mass lesion/abscess. Electronically signed by: Kuldip Sims MD Board Certified Radiologist 04/12/2018 5:51 PM EST
--- NOTE | 2018-04-12 18:21 | MR ---
EXAM DATE: 04/12/2018 5:30 PM EST AGE/SEX: 72 years / Male INDICATIONS: Abscess. CLINICAL DATA: This is the patient's initial encounter. Patient reports that signs and symptoms have been present for 2 weeks and indicates a pain score of 0/10. MEDICAL/SURGICAL HISTORY: Chronic obstructive pulmonary disease. Hypertension. Fusion, lumbar. COMPAR[place]: [facility] [place] & [place]EL[place] W [place]AST, 04/10/2018. . TECHNIQUE: Multiplanar, multisequence MRI examination of the lumbar spine was performed without and with 9cc ml Gadavist (gadobutrol) contrast as a single exam dose. FINDINGS: There is homogeneous signal the marrow of the lumbar vertebral bodies and preservation of body height . There is grade 1 anterolisthesis at L5-S1 with associated moderate interspace loss of height. The t hecal sac is normal in dimension. There is focal flattening of the dorsal lateral right aspect of the thecal sac at the L4-5 level due to bony hypertrophy. The conus is at the level of T12-L1. On the po stcontrast images, no abnormal enhancement seen in the vertebral bodies or epidural space. Urinary bl adder is partially included in the [id number] exam and appears to be markedly distended. T12-L1: The thecal sac has a normal diameter. No evidence of disc bulge or protrusion. The neural foramina are patent bilaterally. L1-L2: The thecal sac has a normal diameter. No evidence of disc bulge or protrusion. The neural foramina are patent bilaterally. L2-L3: The thecal sac has a normal diameter. No evidence of disc bulge or protrusion. The neural foramina are patent bilaterally. L3-L4: The thecal sac has a normal diameter. No evidence of disc bulge or protrusion. The neural foramina are patent bilaterally. L4-L5: The thecal sac has a normal diameter. No evidence of disc bulge or protrusion. The neural foramina are patent bilaterally. Asymmetric right-sided dorsolateral impression on the thecal sac due to hypertrophic changes related to the facet joint and asymmetric right-sided ligamentum flavum hype rtrophy. L5-S1: This is the level of the anterolisthesis. The thecal sac has a normal diameter. No evidence of disc bulge or protrusion. There is narrowing of the neural foramina on both sides and loss of fat about the nerve root in the neural foramen BILATERALLY.. Bilateral pars defects. CONCLUSION: 1. No evidence of epidural abscess. 2. Grade 1 anterolisthesis at L5-S1 with associated discogenic degenerative changes and bilateral pa rs defects. There is significant bilateral bony neural foraminal stenosis with bilateral neural impin gement. 3. Asymmetric ligamentum flavum hypertrophy on the right side at the L4-5 level flattens the dorsal lateral aspect of the thecal sac. Neural foramen remain patent. 4. Suggestion of distended urinary bladder, incompletely imaged in the [id number]. Electronically signed by: Leonard Nielson MD Board Certified Radiologist 04/12/2018 6:20 PM EST
[2018-04-12] MEDS: Sodium Chloride 0.9% 2 ML Flush BID IV.FLUSH SCH (20:22)
[2018-04-12] MEDS: Enoxaparin Inj 40 MG/0.4 ML Syringe SQ SCH (23:42)
[2018-04-13] MEDS: fentaNYL 10 mcg/mL Premix Drip 2,500 MCG/250 ML BAG IV.SIG PRN (02:00)
[2018-04-13] MEDS: Gentamicin/NS 80 mg Premix 100 ML IV.SIG SCH ×2 (02:00→14:59)
--- NOTE | 2018-04-13 04:51 | XR ---
EXAM DATE: 04/13/2018 4:02 AM EST AGE/SEX: 72 years / Male INDICATIONS: Shortness of breath, possible pulmonary disease. CLINICAL DATA: This is the patient's subsequent encounter. Patient reports that signs and symptoms h ave been present for 2 weeks and indicates a pain score of Nonresponsive. MEDICAL/SURGICAL HISTORY: Chronic obstructive pulmonary disease. Hypertension. Fusion, lumbar. COMPARISON: [facility], CHEST 1V SINGLE AP, 04/10/2018. . FINDINGS: Stable ETT and NGT. Persistent right upper lobe airspace consolidation. Persistent patchy airspace di sease in the lower lung zones bilaterally. Cardiomediastinal contours are within normal limits. Remai nder of the exam is unchanged. CONCLUSION: 1. No significant interval change. 2. Stable ETT and NGT. 3. Stable right upper lobe airspace consolidation. 4. Stable bilateral lower lobe patchy airspace disease. Electronically signed by: Chetan Sullivan MD Board Certified Radiologist 04/13/2018 4:50 AM EST
[2018-04-13] MEDS: Propofol 1000 mg/100 ml Inj 1,000 MG/100 ML BOTTLE IV.CONT PRN (04:55)
[2018-04-13] MEDS: Oral Hygiene Kit OROPHARYNG SCH ×4 (04:56→23:25)
[2018-04-13] MEDS: Artificial Tears Opth Drops 15 ML Bottle EACH EYE SCH ×3 (04:56→21:47)
[2018-04-13] MEDS: Insulin NovoLIN Regular Correctional Sugar Inj SQ SCH ×4 (06:24→23:31)
[2018-04-13] MEDS: Chlorhexidine 0.12% Oral Kit 15 ML UDC OROPHARYNG SCH ×2 (07:53→21:46)
[2018-04-13] MEDS: Famotidine PF Inj 20 MG/2 ML Vial IV.PUSH SCH ×2 (08:01→21:47)
[2018-04-13] MEDS: MethylPREDNISolone Sod Succinate Inj 40 MG/ML Vial IV.PUSH SCH ×2 (08:01→21:46)
[2018-04-13] MEDS: Sodium Chloride 0.9% 2 ML Flush BID IV.FLUSH SCH ×2 (08:01→21:47)
[2018-04-13] MEDS: dilTIAZem 60 MG Tablet PO SCH ×4 (08:01→21:46)
[2018-04-13] MEDS: Docusate Sodium 100 MG Capsule PO SCH ×2 (08:01→21:46)
[2018-04-13] MEDS: Sennosides Liq 8.8 MG/5 ML UDC PO SCH (08:02)
[2018-04-13 08:17] LABS: Hematocrit 35.5 % (39.0-51.0); Hemoglobin 12.1 gm/dL (13.0-17.0); Mean Corpuscular HGB Conc 34.1 % (32.0-36.0); Mean Corpuscular Hemoglobin 30.4 pg (27.0-34.0); Mean Corpuscular Volume 89.2 fL (80.0-100.0); Mean Platelet Volume 9.2 fL (7.0-11.0); Platelet Count 195 th/mm3 (150-450); Red Blood Count 3.98 mil/mm3 (4.50-5.90); Red Cell Distribution Width 14.8 % (11.6-17.2); White Blood Count 10.4 th/mm3 (4.0-11.0)
[2018-04-13 08:44] LABS: Anion Gap 3 meq/L (5-15); Blood Urea Nitrogen 31 mg/dL (7-18); Calcium 8.5 mg/dL (8.5-10.1); Carbon Dioxide 35.6 meq/L (21.0-32.0); Chloride 102 meq/L (98-107); Glomerular Filtration Rate Greater Than 89 mL/min (>89); Glucose,Random 146 mg/dL (74-106); Magnesium 2.2 mg/dL (1.5-2.5); Phosphorus 3.1 mg/dL (2.5-4.9); Potassium 4.4 meq/L (3.5-5.1); Sodium 141 meq/L (136-145)
[2018-04-13] MEDS: DAPTOmycin Inj 1,000 MG in Sodium Chlor 0.9% Inj 100 ML IV.SIG SCH (12:17)
--- NOTE | 2018-04-13 13:35 | P.PNCC ---
Subjective Subjective Remarks/Hospital Course: Patient is 72-year-old male with past medical history of COPD, tobacco abuse and hypertension who came to the emergency room for shortness of breath via EMS. On EMS arrival saturation was in the 90s, but patient had significant shortness of breath and dyspnea. Patient received Solu-Medrol 125 mg IV and breathing treatments by EMS and was brought to the emergency department. In the emergency department patient received further breathing treatments and chest x-ray showed patchy infiltrate on bilateral lung fitzgerald. Initially maintaining oxygen saturation with nasal cannula. Initial blood pressure was 85 /65, improved with normal saline boluses. WBC count was 17.1. Patient was deemed septic from pneumonia and patient was ordered to receive vancomycin and Zosyn. While receiving vancomycin patient acutely decompensated became extremely short of breath and developed erythematous maculopapular rash involving face torso armpits and groin region. Emergently intubated and placed on mechanical ventilation by the ED physician. Received IV 50 mg Benadryl. Critical care medicine was requested to admit the patient. I evaluated the patient immediately in the emergency department. Patient is intubated on Versed and fentanyl infusion however he is very asynchronous with the vent triggering ventilator alarms. Severe bilateral expiratory wheezing heard on auscultation. He has extensive skin rash predominantly face forehead torso armpit and groins. Appears like patient had anaphylactic reaction to vancomycin complicated by COPD exacerbation and pneumonia. I have ordered additional Solu-Medrol 100 mg x1 scheduled Benadryl and famotidine, antibiotics with cefepime and Levaquin. Increase Versed infusion, add propofol and use neuromuscular paralysis as needed. Will request pharmacy to add vancomycin to allergy. ED physician Dr. Slater had noticed that patient had some swelling on the left side of his face on arrival, however the skin rash after vancomycin was started was new. Patient remains hypotensive has received 2 L of normal saline in the emergency department and no significant urine output. I have ordered additional 2 L normal saline bolus and maintenance fluid at 84 mL/h. Use Levophed as needed to keep map above 65 Subjective 04/06: Off norepinephrine drip. Currently resting in bed in no acute distress on midazolam and fentanyl drips. Start tube feeding today. 04/07: Remains sedated, intubated on mechanical ventilation. Blood cultures growing MRSA 04/08: remains sedated and intubated. repeat cultures still growing MRSA 2/4 cultures. likely need to repeat BCx either today or tomorrow. agree with narrowing spectrum abx. performed DEEDEE at ID recommendation (need to r/o endocarditis), but no evidence of vegetations. remains hypoxic. off vasopressors today. 04/09: adequate auto-diuresis overnight. off vasopressors. on sedation vacation. hypoxia improving. 04/10 Patient remains intubated and sedated with Fentanyl infusion. Became tachycardic and tachypneic overnight requiring increase sedation. Afebrile. 04/11 Patient is intubated and sedated. Afebrile. 04/12 Patient remains intubated and sedated with Diprivan and Fentanyl infusion, Afebrile. 04/13: Sedated, easily arousable, orally intubated on mechanical ventilation. Objective Vital Signs / I&O: Vital Signs 04/12/18 14:00 04/12/18 14:30 04/12/18 15:00 Temperature Pulse Rate 87 77 89 Respiratory Rate 14 Blood Pressure 117/68 103/62 145/90 H Pulse Oximetry 92 L 95 96 04/12/18 15:31 04/12/18 15:32 04/12/18 16:00 Temperature 98.3 F Pulse Rate 100 H 99 H Respiratory Rate 14 19 Blood Pressure 162/91 H 158/94 H Pulse Oximetry 97 97 96 04/12/18 16:22 04/12/18 16:39 04/12/18 17:20 Temperature Pulse Rate 104 H Respiratory Rate Blood Pressure 173/104 H Pulse Oximetry 92 L 04/12/18 17:30 04/12/18 17:42 04/12/18 18:00 Temperature Pulse Rate 102 H 104 H Respiratory Rate Blood Pressure 166/107 H Pulse Oximetry 90 L 93 L 04/12/18 18:15 04/12/18 18:30 04/12/18 18:45 Temperature Pulse Rate 103 H 106 H 103 H Respiratory Rate Blood Pressure 157/93 H 154/89 H 151/88 H Pulse Oximetry 92 L 92 L 92 L 04/12/18 19:00 04/12/18 19:15 04/12/18 19:30 Temperature Pulse Rate 96 H 107 H 109 H Respiratory Rate Blood Pressure 144/82 H 158/91 H 171/99 H Pulse Oximetry 91 L 92 L 84 L 04/12/18 19:45 04/12/18 19:59 04/12/18 20:00 Temperature 98.9 F Pulse Rate 113 H 110 H 110 H Respiratory Rate Blood Pressure 173/103 H 168/96 H 165/96 H Pulse Oximetry 93 L 87 L 90 L 04/12/18 20:30 04/12/18 21:00 04/12/18 21:14 Temperature Pulse Rate 100 H 96 H 112 H Respiratory Rate 17 Blood Pressure 162/90 H 139/77 Pulse Oximetry 96 96 98 04/12/18 21:30 04/12/18 22:00 04/12/18 22:30 Temperature Pulse Rate 87 89 77 Respiratory Rate Blood Pressure 114/69 126/74 106/64 Pulse Oximetry 94 L 96 96 04/12/18 23:00 04/12/18 23:30 04/13/18 00:00 Temperature Pulse Rate 75 71 95 H Respiratory Rate Blood Pressure 101/67 103/65 164/97 H Pulse Oximetry 97 97 99 04/13/18 00:30 04/13/18 00:39 04/13/18 01:00 Temperature Pulse Rate 92 H 96 H 98 H Respiratory Rate 14 Blood Pressure 148/82 H 152/85 H Pulse Oximetry 95 93 L 94 L 04/13/18 01:30 04/13/18 02:00 04/13/18 02:30 Temperature Pulse Rate 79 78 72 Respiratory Rate Blood Pressure 107/63 131/71 113/68 Pulse Oximetry 93 L 96 97 04/13/18 03:00 04/13/18 03:30 04/13/18 03:54 Temperature Pulse Rate 70 67 98 H Respiratory Rate 16 Blood Pressure 105/63 102/63 Pulse Oximetry 97 98 100 04/13/18 04:00 04/13/18 04:22 04/13/18 04:30 Temperature Pulse Rate 111 H 93 H 99 H Respiratory Rate Blood Pressure 165/105 H 161/95 H 154/82 H Pulse Oximetry 98 97 95 04/13/18 05:00 04/13/18 05:30 04/13/18 06:00 Temperature Pulse Rate 79 76 72 Respiratory Rate Blood Pressure 149/91 H 102/63 Pulse Oximetry 100 96 04/13/18 07:00 04/13/18 07:30 04/13/18 07:45 Temperature Pulse Rate 67 92 H Respiratory Rate 12 12 Blood Pressure 96/60 L 166/99 H Pulse Oximetry 97 99 97 04/13/18 08:00 04/13/18 08:01 04/13/18 08:30 Temperature 98.6 F Pulse Rate 101 H 102 H 102 H Respiratory Rate 10 L Blood Pressure 174/100 H 172/97 H 154/88 H Pulse Oximetry 97 97 96 04/13/18 09:00 04/13/18 09:30 04/13/18 10:00 Temperature Pulse Rate 100 H 95 H 92 H Respiratory Rate 14 Blood Pressure 158/88 H 167/100 H 162/99 H Pulse Oximetry 95 95 94 L 04/13/18 10:30 04/13/18 11:00 04/13/18 11:28 Temperature Pulse Rate 99 H 95 H Respiratory Rate 16 Blood Pressure 162/92 H 159/95 H Pulse Oximetry 94 L 95 04/13/18 11:30 04/13/18 12:00 04/13/18 12:03 Temperature 98.9 F Pulse Rate 95 H 99 H 99 H Respiratory Rate 14 14 Blood Pressure 170/95 H 167/101 H Pulse Oximetry 97 95 04/13/18 12:18 04/13/18 12:31 04/13/18 13:00 Temperature Pulse Rate 95 H 97 H 101 H Respiratory Rate Blood Pressure 163/102 H 161/85 H 169/96 H Pulse Oximetry 94 L 94 L 94 L Intake & Output 04/12/18 04/13/18 04/13/18 18:59 06:59 18:59 Intake Total 1300 / 1300 1569 / 1569 400 / 400 Output Total 1300 / 1300 Balance 1300 / 1300 269 / 269 400 / 400 Weight 94 kg Intake: IV 700 / 700 500 / 500 400 / 400 Diprivan 1000 mg/100 ml Inj 1, 200 / 200 100 / 100 000 mg In 100 ml @ 5 MCG/KG/MIN 2.805 mls/hr IV.CONT TITRATE PRN Rx#:[id number] Cubicin Inj 1,000 MG In NS Inj 100 / 100 100 / 100 100 ML @ 200 mls/hr IV.SIG Q24H [facility] Rx#:[id number] Gentamicin/NS 80 mg Premix 100 100 / 100 100 / 100 ML @ 200 mls/hr IV.SIG Q12H [facility] Rx#:[id number] Zyvox 600 mg Premix 300 ML @ 300 / 300 300 / 300 300 / 300 300 mls/hr IV.SIG Q12H [facility] Rx#: [id number] Oral Supplement 600 / 600 Tube Feeding 169 / 169 Water Bolus Amount 900 / 900 Output: Urine Amount (Catheter) 1300 / 1300 Condom 200 / 200 Straight 1100 / 1100 Other: # Incontinent Voids 1 Date of Last Bowel Movement 04/13/18 Result Diagrams: 04/13/18 07:18 04/13/18 07:18 Objective Remarks: GENERAL: This is an elderly male, orotracheally intubated, lying in bed. SKIN: Warm and dry. HEAD: Atraumatic. Normocephalic. EYES: Pupils equal and round. No scleral icterus. No injection or drainage. ENT: No nasal bleeding or discharge. Mucous membranes pink and moist. NECK: Trachea midline. No JVD. CARDIOVASCULAR: Regular rate and rhythm. sinus. RESPIRATORY: No accessory muscle use. equal chest rise. GASTROINTESTINAL: Abdomen soft, non-tender, nondistended. no guarding. MUSCULOSKELETAL: Extremities without clubbing, cyanosis, or edema. No obvious deformities. NEUROLOGICAL: Sedated Assessment and Plan - Problem List (1) Anaphylaxis Code(s): T78.2XXA - Anaphylactic shock, unspecified, initial encounter Status : Acute (2) COPD with acute exacerbation Code(s): J44.1 - Chronic obstructive pulmonary disease with (acute) exacerbation Status: Acute (3) Bilateral pneumonia Code(s): J18.9 - Pneumonia, unspecified organism Status: Acute (4) Allergic reaction caused by a drug Code(s): T78.40XA - Allergy, unspecified, initial encounter Status: Acute (5) Acute respiratory failure Code(s): J96.00 - Acute respiratory failure, unspecified whether with hypoxia or hypercapnia Status: Acute (6) Severe sepsis Code(s): A41.9 - Sepsis, unspecified organism; R65.20 - Severe sepsis without septic shock Status: Acute (7) Leukocytosis Code(s): D72.829 - Elevated white blood cell count, unspecified Status: Acute (8) Hypotension Code(s): I95.9 - Hypotension, unspecified Status: Acute (9) Acute kidney injury Code(s): N17.9 - Acute kidney failure, unspecified Status: Acute (10) Hyponatremia Code(s): E87.1 - Hypo-osmolality and hyponatremia Status: Acute (11) Hyperglycemia Code(s): R73.9 - Hyperglycemia, unspecified Status: Acute (12) History of hypertension Code(s): Z86.79 - Personal history of other diseases of the circulatory system Status: Chronic (13) Tobacco abuse Code(s): Z72.0 - Tobacco use Status: Chronic (14) History of COPD Code(s): Z87.09 - Personal history of other diseases of the respiratory system Status: Chronic - Assessment and Plan Plan: NEURO/Psych: Acute metabolic encephalopathy - On Fentanyl and Diprivan infusion for sedation. Daily sedation vacation. -CT face revealed left orbital swelling/lateral. -Monitor neuro status. RESP: Acute hypoxic respiratory failure- slowly improving Anaphylactic reaction to vancomycin Community acquired MRSA pneumonia Acute COPD exacerbation Bilateral pneumonia Coronary artery calcification Tobaccoism Left lower lobe 1.5 cm pulmonary nodule. Outpatient PET scan -Emergently intubated and placed on mechanical ventilation in the emergency department -Continue with vent support keep sats >92% -Albuterol/ipratropium aerosols every 4 hours with albuterol aerosols every 2 hours as needed dyspnea -SBT daily as naye -CT chest 04/10: Significant worsening of the patient's lungs with interval development of numerous nodules multiple cavitary lesions which demonstrate air- fluid levels within them characteristic of a very aggressive infectious process destroying the patient's lungs could be seen with necrotizing MRSA -On Solumederol 40mg IV Q12 -Vancomycin added to allergy -CT of the chest 04/06 revealed pulmonary infiltrates. 1.5 cm left lower lobe pulmonary nodule. Outpatient PET scan -nicotine patch 7 mg daily. - abx as below CV: History of hypertension septic shock- resolved Monitor HR and BP keep MAP>65mmHg. Cardizem 60mg Q6 Lactic acid 1.9 on 04/05 Home medications include Lisinopril 40 mg daily metoprolol 200 mg twice daily GI: Hypoalbuminemia Acute protein calorie malnutrition - moderate tube feeds (Jevity 1.5 goal 55 cc an hour) place on hold, IV famotidine for GI prophylaxis -Docusate sodium/senna 1 tablet twice daily for bowel regimen -Check KUB abdomen r/o ileus -Bowel regimen with Colace, Senna and Lactulose Renal/FEN/: Acute kidney injury- improving. Acute urinary retention Hypernatremia -Monitor renal function, I/O's,. continue Shine- has had 2 episodes of urinary retention. Electrolytes replacement per protocol. free water to 300mL po q4h. Monitor sodium level. ID: Septic shock- resolved Multifocal pneumonia MRSA bacteremia on 04/05, 04/07 MRSA pneumonia -Continue abx,( Zyvox, Gentamicin and Daptomycin) ID is following. Monitor CK - BC 04/05,04/07: MRSA, follow up BC from 04/09 MRSA, 04/10 BC: MRSA. Repeat blood cultures to check for clearing per ID -Sputum cx 04/06, 04/10: MRSA , - DEEDEE 04/08 without vegetations, normal EF -MRI brain and T-L spine, tagged WBC scan, further workup per ID HEME: -Monitor CBC, coags ENDO: Hyperglycemia -Electrolyte replacement per protocol -Sliding scale insulin Accu-Cheks every 6 hours to maintain euglycemia PROPH: -Bilateral lower extremity SCDs. Enoxaparin/famotidine LINES: -Utilize peripheral IVs, Time spent on critical care excluding procedures: 30 min (1) Anaphylaxis Qualifiers: Encounter type: initial encounter Qualified Code(s): T78.2XXA - Anaphylactic shock, unspecified, initial encounter (3) Bilateral pneumonia Qualifiers: Pneumonia type: due to unspecified organism Lung location: unspecified part of lung Qualified Code(s): J18.9 - Pneumonia, unspecified organism (4) Allergic reaction caused by a drug Qualifiers: Encounter type: initial encounter Qualified Code(s): T78.40XA - Allergy, unspecified, initial encounter (5) Acute respiratory failure Qualifiers: Respiratory failure complication: unspecified whether with hypoxia or hypercapnia Qualified Code(s): J96.00 - Acute respiratory failure, unspecified whether with hypoxia or hypercapnia (7) Leukocytosis Qualifiers: Leukocytosis type: unspecified Qualified Code(s): D72.829 - Elevated white blood cell count, unspecified (8) Hypotension Qualifiers: Hypotension type: unspecified hypotension type Qualified Code(s): I95.9 - Hypotension, unspecified
[2018-04-13 16:33] LABS: ABG Base Excess 10.1 mmol/L (-2-2); ABG PCO2 49 mmHg (38-42); ABG PO2 75 mmHG (61-120)
--- NOTE | 2018-04-13 20:01 | P.PNID ---
Subjective Remarks: Last clx NGTD @ 1 day improving Antibiotics: daptomycin zyvox Genta IV for synergy Lines: Line sites okay Past Medical History: COPD Allergies/Adverse Reactions: Allergies bee venom protein (honey bee) Allergy (Unknown, Verified 04/05/18 21:12) Edema vancomycin Allergy (Verified 04/05/18 23:33) Anaphylaxis Objective Vital Signs 04/12/18 19:59 04/12/18 20:00 04/12/18 20:30 Temperature 98.9 F Pulse Rate 110 H 110 H 100 H Respiratory Rate Blood Pressure 168/96 H 165/96 H 162/90 H Pulse Oximetry 87 L 90 L 96 04/12/18 21:00 04/12/18 21:14 04/12/18 21:30 Temperature Pulse Rate 96 H 112 H 87 Respiratory Rate 17 Blood Pressure 139/77 114/69 Pulse Oximetry 96 98 94 L 04/12/18 22:00 04/12/18 22:30 04/12/18 23:00 Temperature Pulse Rate 89 77 75 Respiratory Rate Blood Pressure 126/74 106/64 101/67 Pulse Oximetry 96 96 97 04/12/18 23:30 04/13/18 00:00 04/13/18 00:30 Temperature Pulse Rate 71 95 H 92 H Respiratory Rate Blood Pressure 103/65 164/97 H 148/82 H Pulse Oximetry 97 99 95 04/13/18 00:39 04/13/18 01:00 04/13/18 01:30 Temperature Pulse Rate 96 H 98 H 79 Respiratory Rate 14 Blood Pressure 152/85 H 107/63 Pulse Oximetry 93 L 94 L 93 L 04/13/18 02:00 04/13/18 02:30 04/13/18 03:00 Temperature Pulse Rate 78 72 70 Respiratory Rate Blood Pressure 131/71 113/68 105/63 Pulse Oximetry 96 97 97 04/13/18 03:30 04/13/18 03:54 04/13/18 04:00 Temperature Pulse Rate 67 98 H 111 H Respiratory Rate 16 Blood Pressure 102/63 165/105 H Pulse Oximetry 98 100 98 04/13/18 04:22 04/13/18 04:30 04/13/18 05:00 Temperature Pulse Rate 93 H 99 H 79 Respiratory Rate Blood Pressure 161/95 H 154/82 H 149/91 H Pulse Oximetry 97 95 100 04/13/18 05:30 01/14/19 06:00 04/13/18 07:00 Temperature Pulse Rate 76 72 67 Respiratory Rate 12 Blood Pressure 102/63 96/60 L Pulse Oximetry 96 97 04/13/18 07:30 04/13/18 07:45 04/13/18 08:00 Temperature 98.6 F Pulse Rate 92 H 101 H Respiratory Rate 12 10 L Blood Pressure 166/99 H 174/100 H Pulse Oximetry 99 97 97 04/13/18 08:01 04/13/18 08:30 04/13/18 09:00 Temperature Pulse Rate 102 H 102 H 100 H Respiratory Rate 14 Blood Pressure 172/97 H 154/88 H 158/88 H Pulse Oximetry 97 96 95 04/13/18 09:30 04/13/18 10:00 04/13/18 10:30 Temperature Pulse Rate 95 H 92 H 99 H Respiratory Rate Blood Pressure 167/100 H 162/99 H 162/92 H Pulse Oximetry 95 94 L 94 L 04/13/18 11:00 04/13/18 11:28 04/13/18 11:30 Temperature Pulse Rate 95 H 95 H Respiratory Rate 16 Blood Pressure 159/95 H 170/95 H Pulse Oximetry 95 97 04/13/18 12:00 04/13/18 12:03 04/13/18 12:18 Temperature 98.9 F Pulse Rate 99 H 99 H 95 H Respiratory Rate 14 14 Blood Pressure 167/101 H 163/102 H Pulse Oximetry 95 94 L 04/13/18 12:31 04/13/18 13:00 04/13/18 13:25 Temperature Pulse Rate 97 H 101 H Respiratory Rate Blood Pressure 161/85 H 169/96 H Pulse Oximetry 94 L 94 L 100 04/13/18 14:00 04/13/18 14:49 04/13/18 14:50 Temperature Pulse Rate 97 H 104 H Respiratory Rate 17 12 Blood Pressure Pulse Oximetry 04/13/18 15:00 04/13/18 15:15 04/13/18 15:30 Temperature Pulse Rate 94 H 95 H 115 H Respiratory Rate Blood Pressure 164/91 H 163/95 H 175/97 H Pulse Oximetry 93 L 92 L 95 04/13/18 16:00 04/13/18 18:00 Temperature 98.7 F Pulse Rate 110 H 87 Respiratory Rate 18 Blood Pressure 166/94 H Pulse Oximetry 92 L Intake & Output 04/13/18 04/13/18 04/14/18 06:59 18:59 06:59 Intake Total 1569 / 1569 1538 / 1538 Output Total 1300 / 1300 1425 / 1425 Balance 269 / 269 113 / 113 Weight 94 kg Intake: IV 500 / 500 638 / 638 Diprivan 1000 mg/100 ml Inj 1, 100 / 100 85 / 85 000 mg In 100 ml @ 5 MCG/KG/MIN 2.805 mls/hr IV.CONT TITRATE PRN Rx#:[id number] Cubicin Inj 1,000 MG In NS Inj 100 / 100 100 ML @ 200 mls/hr IV.SIG Q24H [facility] Rx#:[id number] Gentamicin/NS 80 mg Premix 100 100 / 100 103 / 103 ML @ 200 mls/hr IV.SIG Q12H [facility] Rx#:[id number] Zyvox 600 mg Premix 300 ML @ 300 / 300 300 / 300 300 mls/hr IV.SIG Q12H [facility] Rx#: [id number] fentaNYL 10 mcg/mL Premix Drip 50 / 50 2,500 mcg In 250 ml @ 50 MCG/HR 5 mls/hr IV.SIG TITRATE PRN Rx #:[id number] Oral Supplement 900 / 900 Tube Feeding 169 / 169 Water Bolus Amount 900 / 900 Output: Urine 1425 / 1425 Urine Amount (Catheter) 1300 / 1300 Condom 200 / 200 Straight 1100 / 1100 Other: # Incontinent Voids 1 1 Date of Last Bowel Movement 04/13/18 04/12/18 13:55 Blood - Peripheral Aerobic Blood Culture - Preliminary No growth in 1 day 04/12/18 13:55 Blood - Peripheral Anaerobic Blood Culture - Preliminary No growth in 1 day 04/12/18 13:47 Blood - Peripheral Aerobic Blood Culture - Preliminary No growth in 1 day 04/12/18 13:47 Blood - Peripheral Anaerobic Blood Culture - Preliminary No growth in 1 day 04/10/18 11:42 Blood - Peripheral Aerobic Blood Culture - Preliminary No growth in 3 days 04/10/18 11:42 Blood - Peripheral Anaerobic Blood Culture - Final S. aureus MRSA 04/09/18 08:47 Blood - Peripheral Aerobic Blood Culture - Preliminary No growth in 4 days 04/09/18 08:47 Blood - Peripheral Anaerobic Blood Culture - Final S. aureus MRSA 04/09/18 08:45 Blood - Peripheral Aerobic Blood Culture - Final S. aureus MRSA 04/09/18 08:45 Blood - Peripheral Anaerobic Blood Culture - Final S. aureus MRSA 04/10/18 11:35 Blood - Peripheral Aerobic Blood Culture - Final S. aureus MRSA 04/10/18 11:35 Blood - Peripheral Anaerobic Blood Culture - Final S. aureus MRSA 04/10/18 09:30 Sputum - Endotracheal Gram Stain - Final 04/10/18 09:30 Sputum - Endotracheal Sputum Culture - Final S. aureus MRSA Lab - Hematology Results 04/12/18 04/13/18 06:16 07:18 WBC 11.3 H 10.4 RBC 4.76 3.98 L Hgb 14.1 D 12.1 L D Hct 43.5 35.5 L MCV 91.5 89.2 MCH 29.6 30.4 MCHC 32.3 34.1 RDW 15.4 14.8 Plt Count 204 195 MPV 9.3 9.2 Lab - Chemistry Results 04/11/18 04/12/18 04/12/18 23:12 05:10 06:16 Sodium 146 H Potassium 4.4 Chloride 105 Carbon Dioxide 34.8 H Anion Gap 6 BUN 36 H Creatinine 0.67 Estimated GFR Greater than 89 POC Glucose 117 H 140 H Random Glucose 146 H Calcium 8.7 Phosphorus 3.4 Magnesium 2.5 C-Reactive Protein 04/12/18 04/12/18 04/12/18 11:59 13:55 18:10 Sodium Potassium Chloride Carbon Dioxide Anion Gap BUN Creatinine Estimated GFR POC Glucose 142 H 138 H Random Glucose Calcium Phosphorus Magnesium C-Reactive Protein 2.00 H 04/12/18 04/13/18 04/13/18 23:37 06:21 07:18 Sodium 141 Potassium 4.4 Chloride 102 Carbon Dioxide 35.6 H Anion Gap 3 L BUN 31 H Creatinine 0.60 Estimated GFR Greater than 89 POC Glucose 135 H 161 H Random Glucose 146 H Calcium 8.5 Phosphorus 3.1 Magnesium 2.2 C-Reactive Protein 04/13/18 04/13/18 11:03 17:26 Sodium Potassium Chloride Carbon Dioxide Anion Gap BUN Creatinine Estimated GFR POC Glucose 133 H 140 H Random Glucose Calcium Phosphorus Magnesium C-Reactive Protein Imaging: ITS Impressions Face CT 04/06/18 00:00 CONCLUSION: 1. Small focal area of soft tissue swelling involving the lateral orbital margin on the left. No abscess. Abdomen/Pelvis CT 04/10/18 00:00 CONCLUSION: 1. Findings in the patient's chest discussed on the patient's chest CT. 2. Left renal stone without hydronephrosis. 3. Slight AAA. 4. Possible gallstones within the gallbladder. 5. There is slight fluid within the peritoneal cavity in the pelvis and within left perinephric space and stranding densities involving the Gerota's fascia on the left side. The exact etiology is not certain could be inflammatory, and there is no hydronephrosis. Chest CT 04/10/18 00:00 CONCLUSION: 1. Significant worsening of the patient's lungs with interval development of numerous nodules multiple cavitary lesions which demonstrate air-fluid levels within them characteristic of a very aggressive infectious process destroying the patient's lungs could be seen with necrotizing MRSA, however the appearance is nonspecific. Head MRI 04/12/18 00:00 CONCLUSION: 1. Some chronic changes with mild cortical and central atrophy. Minimal periventricular and scattered deep white matter tract areas of small vessel ischemic demyelination. 2. Some fluid or secretions identified in the dependent portion of the nasopharynx. 3. Otherwise negative. No findings of intracranial mass lesion/abscess. Lumbar Spine MRI 04/12/18 00:00 CONCLUSION: 1. No evidence of epidural abscess. 2. Grade 1 anterolisthesis at L5-S1 with associated discogenic degenerative changes and bilateral pars defects. There is significant bilateral bony neural foraminal stenosis with bilateral neural impingement. 3. Asymmetric ligamentum flavum hypertrophy on the right side at the L4-5 level flattens the dorsal lateral aspect of the thecal sac. Neural foramen remain patent. 4. Suggestion of distended urinary bladder, incompletely imaged in the field-of -view. Thoracic Spine MRI 04/12/18 00:00 CONCLUSION: 1. Small bilateral pleural effusions. 2. Spinal canal is widely patent throughout without cord compromise. No findings of a paravertebral abscess. Abdomen X-Ray 04/12/18 09:42 CONCLUSION: No evidence of ileus. Chest X-Ray 04/13/18 00:00 CONCLUSION: 1. No significant interval change. 2. Stable ETT and NGT. 3. Stable right upper lobe airspace consolidation. 4. Stable bilateral lower lobe patchy airspace disease. Physical Exam: GENERAL: NAD on vent SKIN: Warm and dry. No rash HEAD: Atraumatic. Normocephalic. EYES: Pupils equal and round. No scleral icterus. No injection or drainage. ENT: No nasal bleeding or discharge. Mucous membranes pink and moist. NECK: Trachea midline. No JVD. CARDIOVASCULAR: Regular rate and rhythm. RESPIRATORY: No accessory muscle use. scattered rhonchi to auscultation. Breath sounds equal bilaterally. GASTROINTESTINAL: Abdomen soft, non-tender, nondistended. MUSCULOSKELETAL: Extremities without clubbing, mi.ld cyanosis, or edema. NEUROLOGICAL: awake, + eye contact, tracks, follows PSYCHIATRIC: calm Assessment and Plan - Plan Sepsis High grade MRSA bacteremia with multifocal pulmonary infiltrates MR spine,brain megative DEEDEE wo e/o endocarditis Necrotizing MRSA PNA Acute VDRF Clincially improving HIV/HCV/HBV serologies negative Recs: cont IV Zyvox cont daptomycin IV cont Genta x 3 -5 days awaiting Gallium scan result randolph PAREKH
[2018-04-13] MEDS: Enoxaparin Inj 40 MG/0.4 ML Syringe SQ SCH (23:24)
[2018-04-14] MEDS: Oral Hygiene Kit OROPHARYNG SCH ×3 (03:45→16:04)
[2018-04-14] MEDS: Gentamicin/NS 80 mg Premix 100 ML IV.SIG SCH ×2 (03:51→14:16)
[2018-04-14] MEDS: Artificial Tears Opth Drops 15 ML Bottle EACH EYE SCH ×3 (04:09→21:02)
[2018-04-14 05:45] LABS: Hematocrit 39.6 % (39.0-51.0); Hemoglobin 13.1 gm/dL (13.0-17.0); Mean Corpuscular HGB Conc 33.2 % (32.0-36.0); Mean Corpuscular Hemoglobin 29.7 pg (27.0-34.0); Mean Corpuscular Volume 89.6 fL (80.0-100.0); Mean Platelet Volume 8.7 fL (7.0-11.0); Platelet Count 221 th/mm3 (150-450); Red Blood Count 4.42 mil/mm3 (4.50-5.90); Red Cell Distribution Width 14.4 % (11.6-17.2); White Blood Count 14.7 th/mm3 (4.0-11.0)
[2018-04-14] MEDS: Insulin NovoLIN Regular Correctional Sugar Inj SQ SCH ×3 (05:54→17:22)
[2018-04-14 06:03] LABS: Anion Gap 6 meq/L (5-15); Blood Urea Nitrogen 24 mg/dL (7-18); Calcium 8.7 mg/dL (8.5-10.1); Carbon Dioxide 33.1 meq/L (21.0-32.0); Chloride 100 meq/L (98-107); Glomerular Filtration Rate Greater Than 89 mL/min (>89); Glucose,Random 126 mg/dL (74-106); Phosphorus 2.4 mg/dL (2.5-4.9); Sodium 139 meq/L (136-145)
[2018-04-14] MEDS ORDERED: Sod Phosphate/Sod Biphosphate (Adult) Enema 133 ML Bottle RECTAL ONE (08:00)
[2018-04-14] MEDS: Chlorhexidine 0.12% Oral Kit 15 ML UDC OROPHARYNG SCH ×2 (09:08→21:01)
[2018-04-14] MEDS: MethylPREDNISolone Sod Succinate Inj 40 MG/ML Vial IV.PUSH SCH ×2 (09:09→21:02)
[2018-04-14] MEDS: Docusate Sodium 100 MG Capsule PO SCH ×3 (09:09→21:01)
[2018-04-14] MEDS: Famotidine PF Inj 20 MG/2 ML Vial IV.PUSH SCH ×2 (09:09→21:02)
[2018-04-14] MEDS: Sennosides Liq 8.8 MG/5 ML UDC PO SCH (09:09)
[2018-04-14] MEDS: dilTIAZem 60 MG Tablet PO SCH ×5 (09:09→21:02)
[2018-04-14] MEDS: Sodium Chloride 0.9% 2 ML Flush BID IV.FLUSH SCH ×2 (09:10→21:02)
[2018-04-14] MEDS: Sodium Glycerophosphate Inj 30 MMOL in Sodium Chlor 0.9% Inj 250 ML IV.SIG PRN (09:12)
--- NOTE | 2018-04-14 09:23 | P.PNCC ---
Subjective Subjective Remarks/Hospital Course: Patient is 72-year-old male with past medical history of COPD, tobacco abuse and hypertension who came to the emergency room for shortness of breath via EMS. On EMS arrival saturation was in the 90s, but patient had significant shortness of breath and dyspnea. Patient received Solu-Medrol 125 mg IV and breathing treatments by EMS and was brought to the emergency department. In the emergency department patient received further breathing treatments and chest x-ray showed patchy infiltrate on bilateral lung fitzgerald. Initially maintaining oxygen saturation with nasal cannula. Initial blood pressure was 85 /65, improved with normal saline boluses. WBC count was 17.1. Patient was deemed septic from pneumonia and patient was ordered to receive vancomycin and Zosyn. While receiving vancomycin patient acutely decompensated became extremely short of breath and developed erythematous maculopapular rash involving face torso armpits and groin region. Emergently intubated and placed on mechanical ventilation by the ED physician. Received IV 50 mg Benadryl. Critical care medicine was requested to admit the patient. I evaluated the patient immediately in the emergency department. Patient is intubated on Versed and fentanyl infusion however he is very asynchronous with the vent triggering ventilator alarms. Severe bilateral expiratory wheezing heard on auscultation. He has extensive skin rash predominantly face forehead torso armpit and groins. Appears like patient had anaphylactic reaction to vancomycin complicated by COPD exacerbation and pneumonia. I have ordered additional Solu-Medrol 100 mg x1 scheduled Benadryl and famotidine, antibiotics with cefepime and Levaquin. Increase Versed infusion, add propofol and use neuromuscular paralysis as needed. Will request pharmacy to add vancomycin to allergy. ED physician Dr. Slater had noticed that patient had some swelling on the left side of his face on arrival, however the skin rash after vancomycin was started was new. Patient remains hypotensive has received 2 L of normal saline in the emergency department and no significant urine output. I have ordered additional 2 L normal saline bolus and maintenance fluid at 84 mL/h. Use Levophed as needed to keep map above 65 Subjective 04/06: Off norepinephrine drip. Currently resting in bed in no acute distress on midazolam and fentanyl drips. Start tube feeding today. 04/07: Remains sedated, intubated on mechanical ventilation. Blood cultures growing MRSA 04/08: remains sedated and intubated. repeat cultures still growing MRSA 2/4 cultures. likely need to repeat BCx either today or tomorrow. agree with narrowing spectrum abx. performed DEEDEE at ID recommendation (need to r/o endocarditis), but no evidence of vegetations. remains hypoxic. off vasopressors today. 04/09: adequate auto-diuresis overnight. off vasopressors. on sedation vacation. hypoxia improving. 04/10 Patient remains intubated and sedated with Fentanyl infusion. Became tachycardic and tachypneic overnight requiring increase sedation. Afebrile. 04/11 Patient is intubated and sedated. Afebrile. 04/12 Patient remains intubated and sedated with Diprivan and Fentanyl infusion, Afebrile. 04/13: Sedated, easily arousable, orally intubated on mechanical ventilation. 04/14 Patient was extubated yesterday. Afebrile. Objective Vital Signs / I&O: Vital Signs 04/13/18 09:30 04/13/18 10:00 04/13/18 10:30 Temperature Pulse Rate 95 H 92 H 99 H Respiratory Rate Blood Pressure 167/100 H 162/99 H 162/92 H Pulse Oximetry 95 94 L 94 L 04/13/18 11:00 04/13/18 11:28 04/13/18 11:30 Temperature Pulse Rate 95 H 95 H Respiratory Rate 16 Blood Pressure 159/95 H 170/95 H Pulse Oximetry 95 97 04/13/18 12:00 04/13/18 12:03 04/13/18 12:18 Temperature 98.9 F Pulse Rate 99 H 99 H 95 H Respiratory Rate 14 14 Blood Pressure 167/101 H 163/102 H Pulse Oximetry 95 94 L 04/13/18 12:31 04/13/18 13:00 04/13/18 13:25 Temperature Pulse Rate 97 H 101 H Respiratory Rate Blood Pressure 161/85 H 169/96 H Pulse Oximetry 94 L 94 L 100 04/13/18 14:00 04/13/18 14:49 04/13/18 14:50 Temperature Pulse Rate 97 H 104 H Respiratory Rate 17 12 Blood Pressure Pulse Oximetry 04/13/18 15:00 04/13/18 15:15 04/13/18 15:30 Temperature Pulse Rate 94 H 95 H 115 H Respiratory Rate Blood Pressure 164/91 H 163/95 H 175/97 H Pulse Oximetry 93 L 92 L 95 04/13/18 16:00 04/13/18 17:00 04/13/18 18:00 Temperature 98.7 F Pulse Rate 110 H 91 H 87 Respiratory Rate 18 Blood Pressure 166/94 H 168/92 H 157/92 H Pulse Oximetry 92 L 94 L 94 L 04/13/18 19:00 04/13/18 19:47 04/13/18 20:00 Temperature 98.4 F Pulse Rate 93 H 89 Respiratory Rate Blood Pressure 163/96 H 154/88 H Pulse Oximetry 94 L 94 L 94 L 04/13/18 21:00 04/13/18 22:00 04/13/18 23:00 Temperature Pulse Rate 92 H 80 86 Respiratory Rate Blood Pressure 155/94 H 158/91 H 156/90 H Pulse Oximetry 95 95 94 L 04/14/18 00:00 04/14/18 01:00 04/14/18 02:00 Temperature Pulse Rate 83 78 83 Respiratory Rate Blood Pressure 149/85 H 140/86 147/87 H Pulse Oximetry 94 L 95 94 L 04/14/18 03:00 04/14/18 04:00 04/14/18 06:00 Temperature 99.1 F Pulse Rate 78 90 78 Respiratory Rate Blood Pressure 139/84 155/86 H Pulse Oximetry 89 L Intake & Output 04/13/18 04/14/18 04/14/18 18:59 06:59 18:59 Intake Total 1538 / 1538 520 / 520 Output Total 1425 / 1425 1150 / 1150 Balance 113 / 113 -630 / -630 Weight 96 kg Intake: IV 638 / 638 400 / 400 Diprivan 1000 mg/100 ml Inj 1, 85 / 85 000 mg In 100 ml @ 5 MCG/KG/MIN 2.805 mls/hr IV.CONT TITRATE PRN Rx#:[id number] Cubicin Inj 1,000 MG In NS Inj 100 / 100 100 ML @ 200 mls/hr IV.SIG Q24H [facility] Rx#:[id number] Gentamicin/NS 80 mg Premix 100 103 / 103 100 / 100 ML @ 200 mls/hr IV.SIG Q12H [facility] Rx#:[id number] Zyvox 600 mg Premix 300 ML @ 300 / 300 300 / 300 300 mls/hr IV.SIG Q12H [facility] Rx#: [id number] fentaNYL 10 mcg/mL Premix Drip 50 / 50 2,500 mcg In 250 ml @ 50 MCG/HR 5 mls/hr IV.SIG TITRATE PRN Rx #:[id number] Oral 120 / 120 Oral Supplement 900 / 900 Output: Urine 1425 / 1425 1150 / 1150 Other: # Voids 3 # Incontinent Voids 1 3 Result Diagrams: 04/14/18 04:59 04/14/18 04:59 Other Results: Laboratory Results - last 12 hr 04/13/18 04/14/18 04/14/18 23:31 04:59 04:59 WBC 14.7 H RBC 4.42 L Hgb 13.1 Hct 39.6 MCV 89.6 MCH 29.7 MCHC 33.2 RDW 14.4 Plt Count 221 MPV 8.7 Sodium 139 Potassium 4.0 Chloride 100 Carbon Dioxide 33.1 H Anion Gap 6 BUN 24 H Creatinine 0.51 L Estimated GFR Greater than 89 POC Glucose 113 H Random Glucose 126 H Calcium 8.7 Phosphorus 2.4 L Magnesium 2.0 04/14/18 05:46 WBC RBC Hgb Hct MCV MCH MCHC RDW Plt Count MPV Sodium Potassium Chloride Carbon Dioxide Anion Gap BUN Creatinine Estimated GFR POC Glucose 123 H Random Glucose Calcium Phosphorus Magnesium Imaging: Face CT 04/06/18 00:00 CONCLUSION: 1. Small focal area of soft tissue swelling involving the lateral orbital margin on the left. No abscess. Abdomen/Pelvis CT 04/10/18 00:00 CONCLUSION: 1. Findings in the patient's chest discussed on the patient's chest CT. 2. Left renal stone without hydronephrosis. 3. Slight AAA. 4. Possible gallstones within the gallbladder. 5. There is slight fluid within the peritoneal cavity in the pelvis and within left perinephric space and stranding densities involving the Gerota's fascia on the left side. The exact etiology is not certain could be inflammatory, and there is no hydronephrosis. Chest CT 04/10/18 00:00 CONCLUSION: 1. Significant worsening of the patient's lungs with interval development of numerous nodules multiple cavitary lesions which demonstrate air-fluid levels within them characteristic of a very aggressive infectious process destroying the patient's lungs could be seen with necrotizing MRSA, however the appearance is nonspecific. Head MRI 04/12/18 00:00 CONCLUSION: 1. Some chronic changes with mild cortical and central atrophy. Minimal periventricular and scattered deep white matter tract areas of small vessel ischemic demyelination. 2. Some fluid or secretions identified in the dependent portion of the nasopharynx. 3. Otherwise negative. No findings of intracranial mass lesion/abscess. Lumbar Spine MRI 04/12/18 00:00 CONCLUSION: 1. No evidence of epidural abscess. 2. Grade 1 anterolisthesis at L5-S1 with associated discogenic degenerative changes and bilateral pars defects. There is significant bilateral bony neural foraminal stenosis with bilateral neural impingement. 3. Asymmetric ligamentum flavum hypertrophy on the right side at the L4-5 level flattens the dorsal lateral aspect of the thecal sac. Neural foramen remain patent. 4. Suggestion of distended urinary bladder, incompletely imaged in the field-of -view. Thoracic Spine MRI 04/12/18 00:00 CONCLUSION: 1. Small bilateral pleural effusions. 2. Spinal canal is widely patent throughout without cord compromise. No findings of a paravertebral abscess. Abdomen X-Ray 04/12/18 09:42 CONCLUSION: No evidence of ileus. Chest X-Ray 04/13/18 00:00 CONCLUSION: 1. No significant interval change. 2. Stable ETT and NGT. 3. Stable right upper lobe airspace consolidation. 4. Stable bilateral lower lobe patchy airspace disease. Objective Remarks: GENERAL: Patient is lying in bed in NAD SKIN: Warm and dry. HEAD: Atraumatic. Normocephalic. EYES: Pupils equal and round. No scleral icterus. No injection or drainage. ENT: No nasal bleeding or discharge. Mucous membranes pink and moist. NECK: Trachea midline. No JVD. CARDIOVASCULAR: Regular rate and rhythm. sinus. RESPIRATORY: No accessory muscle use. equal chest rise. GASTROINTESTINAL: Abdomen soft, non-tender, nondistended. no guarding. MUSCULOSKELETAL: Extremities without clubbing, cyanosis, or edema. No obvious deformities. NEUROLOGICAL: Awake and alert Assessment and Plan - Problem List (1) Anaphylaxis Code(s): T78.2XXA - Anaphylactic shock, unspecified, initial encounter Status : Acute (2) COPD with acute exacerbation Code(s): J44.1 - Chronic obstructive pulmonary disease with (acute) exacerbation Status: Acute (3) Bilateral pneumonia Code(s): J18.9 - Pneumonia, unspecified organism Status: Acute (4) Allergic reaction caused by a drug Code(s): T78.40XA - Allergy, unspecified, initial encounter Status: Acute (5) Acute respiratory failure Code(s): J96.00 - Acute respiratory failure, unspecified whether with hypoxia or hypercapnia Status: Acute (6) Severe sepsis Code(s): A41.9 - Sepsis, unspecified organism; R65.20 - Severe sepsis without septic shock Status: Acute (7) Leukocytosis Code(s): D72.829 - Elevated white blood cell count, unspecified Status: Acute (8) Hypotension Code(s): I95.9 - Hypotension, unspecified Status: Acute (9) Acute kidney injury Code(s): N17.9 - Acute kidney failure, unspecified Status: Acute (10) Hyponatremia Code(s): E87.1 - Hypo-osmolality and hyponatremia Status: Acute (11) Hyperglycemia Code(s): R73.9 - Hyperglycemia, unspecified Status: Acute (12) History of hypertension Code(s): Z86.79 - Personal history of other diseases of the circulatory system Status: Chronic (13) Tobacco abuse Code(s): Z72.0 - Tobacco use Status: Chronic (14) History of COPD Code(s): Z87.09 - Personal history of other diseases of the respiratory system Status: Chronic - Assessment and Plan Plan: NEURO/Psych: Acute metabolic encephalopathy..improving - Awake and alert . Monitor neuro status. Avoid sedatives -CT face revealed left orbital swelling/lateral. MRI brain: Some chronic changes with mild cortical and central atrophy. Minimal periventricular and scattered deep white matter tract areas of small vessel ischemic demyelination. No findings of intracranial mass lesion/abscess. RESP: Acute hypoxic respiratory failure- slowly improving Anaphylactic reaction to vancomycin Community acquired MRSA pneumonia Acute COPD exacerbation Bilateral pneumonia Coronary artery calcification Tobaccoism Left lower lobe 1.5 cm pulmonary nodule. Outpatient PET scan -Extubated 04/13 -Continue with oxygen keep sats >92% -Albuterol/ipratropium aerosols every 4 hours with albuterol aerosols every 2 hours as needed dyspnea -CT chest 04/10: Significant worsening of the patient's lungs with interval development of numerous nodules multiple cavitary lesions which demonstrate air- fluid levels within them characteristic of a very aggressive infectious process destroying the patient's lungs could be seen with necrotizing MRSA -On Solumederol 40mg IV Q12 -Vancomycin added to allergy -CT of the chest 04/06 revealed pulmonary infiltrates. 1.5 cm left lower lobe pulmonary nodule. Outpatient PET scan -nicotine patch 7 mg daily. - abx as below CV: History of hypertension septic shock- resolved Monitor HR and BP keep MAP>65mmHg. Cardizem 60mg Q6 Lactic acid 1.9 on 04/05 Home medications include Lisinopril 40 mg daily metoprolol 200 mg twice daily GI: Hypoalbuminemia Acute protein calorie malnutrition - moderate IV famotidine for GI prophylaxis/ -Docusate sodium/senna 1 tablet twice daily for bowel regimen -Check KUB abdomen r/o ileus -Bowel regimen with Colace, Senna and Lactulose Renal/FEN/: Acute kidney injury- improving. Acute urinary retention Hypernatremia -Monitor renal function, I/O's,. continue Shine- has had 2 episodes of urinary retention. Electrolytes replacement per protocol. Diurese with Lasix 40mg IX x1 ID: Septic shock- resolved Multifocal pneumonia MRSA bacteremia on 04/05, 04/07 MRSA pneumonia -Continue abx,( Zyvox, Gentamicin and Daptomycin) ID is following. Monitor CK - BC 04/05,04/07: MRSA, follow up BC from 04/09 MRSA, 04/10 BC: MRSA. -BC 04/12: NGTD -Sputum cx 04/06, 04/10: MRSA , - DEEDEE 04/08 without vegetations, normal EF -Awaiting tagged WBC scan, further workup per ID -MRI T-L spine: No abscess HEME: -Monitor CBC, coags ENDO: Hyperglycemia -Electrolyte replacement per protocol -Sliding scale insulin Accu-Cheks every 6 hours to maintain euglycemia PROPH: -Bilateral lower extremity SCDs. Enoxaparin/famotidine LINES: -Utilize peripheral IVs, Level 2 (1) Anaphylaxis Qualifiers: Encounter type: initial encounter Qualified Code(s): T78.2XXA - Anaphylactic shock, unspecified, initial encounter (3) Bilateral pneumonia Qualifiers: Pneumonia type: due to unspecified organism Lung location: unspecified part of lung Qualified Code(s): J18.9 - Pneumonia, unspecified organism (4) Allergic reaction caused by a drug Qualifiers: Encounter type: initial encounter Qualified Code(s): T78.40XA - Allergy, unspecified, initial encounter (5) Acute respiratory failure Qualifiers: Respiratory failure complication: unspecified whether with hypoxia or hypercapnia Qualified Code(s): J96.00 - Acute respiratory failure, unspecified whether with hypoxia or hypercapnia (7) Leukocytosis Qualifiers: Leukocytosis type: unspecified Qualified Code(s): D72.829 - Elevated white blood cell count, unspecified (8) Hypotension Qualifiers: Hypotension type: unspecified hypotension type Qualified Code(s): I95.9 - Hypotension, unspecified
[2018-04-14] MEDS: DAPTOmycin Inj 1,000 MG in Sodium Chlor 0.9% Inj 100 ML IV.SIG SCH (13:24)
[2018-04-14] MEDS ORDERED: Pharmacy Ordered Lab Info OTHER ONE ×2 (14:30→16:00)
[2018-04-14] MEDS: Enoxaparin Inj 40 MG/0.4 ML Syringe SQ SCH (23:04)
[2018-04-15] MEDS: Oral Hygiene Kit OROPHARYNG SCH ×4 (00:23→15:52)
[2018-04-15] MEDS: Insulin NovoLIN Regular Correctional Sugar Inj SQ SCH ×4 (00:43→17:42)
[2018-04-15] MEDS: Gentamicin/NS 80 mg Premix 100 ML IV.SIG SCH ×2 (03:33→15:28)
[2018-04-15] MEDS: Artificial Tears Opth Drops 15 ML Bottle EACH EYE SCH ×3 (07:05→22:13)
[2018-04-15 07:45] LABS: Baso % (Auto) 0.3 % (0.0-2.0); Hematocrit 39.7 % (39.0-51.0); Hemoglobin 13.4 gm/dL (13.0-17.0); Lymph # (Auto) 0.6 th/mm3 (1.0-4.8); Lymph % (Auto) 4.5 % (9.0-44.0); Mean Corpuscular HGB Conc 33.9 % (32.0-36.0); Mean Corpuscular Hemoglobin 29.9 pg (27.0-34.0); Mean Corpuscular Volume 88.3 fL (80.0-100.0); Mean Platelet Volume 9.4 fL (7.0-11.0); Mono # (Auto) 0.6 th/mm3 (0.0-0.9); Neut # (Auto) 11.1 th/mm3 (1.8-7.7); Neut % (Auto) 90.2 % (16.0-70.0); Platelet Count 178 th/mm3 (150-450); Red Blood Count 4.49 mil/mm3 (4.50-5.90); Red Cell Distribution Width 13.9 % (11.6-17.2); White Blood Count 12.4 th/mm3 (4.0-11.0)
[2018-04-15] MEDS ORDERED: Sod Phosphate/Sod Biphosphate (Adult) Enema 133 ML Bottle RECTAL ONE (08:00)
[2018-04-15 08:05] LABS: Albumin 2.3 g/dL (3.4-5.0); Anion Gap 6 meq/L (5-15); Aspartate Aminotransferase 36 U/L (15-37); Blood Urea Nitrogen 26 mg/dL (7-18); Calcium 8.3 mg/dL (8.5-10.1); Carbon Dioxide 33.6 meq/L (21.0-32.0); Chloride 97 meq/L (98-107); Glomerular Filtration Rate Greater Than 89 mL/min (>89); Glucose,Random 99 mg/dL (74-106); Magnesium 1.8 mg/dL (1.5-2.5); Potassium 3.7 meq/L (3.5-5.1); Sodium 137 meq/L (136-145)
[2018-04-15 08:06] LABS: Alanine Aminotransferase 58 U/L (12-78)
[2018-04-15 08:08] LABS: Alkaline Phosphatase 52 U/L (45-117); Total Protein 5.9 g/dL (6.4-8.2)
[2018-04-15] MEDS: Famotidine PF Inj 20 MG/2 ML Vial IV.PUSH SCH ×2 (08:20→22:13)
[2018-04-15] MEDS: Chlorhexidine 0.12% Oral Kit 15 ML UDC OROPHARYNG SCH ×2 (08:23→22:12)
[2018-04-15] MEDS: MethylPREDNISolone Sod Succinate Inj 40 MG/ML Vial IV.PUSH SCH ×2 (08:24→22:13)
[2018-04-15] MEDS: Sodium Chloride 0.9% 2 ML Flush BID IV.FLUSH SCH ×2 (08:27→22:13)
[2018-04-15] MEDS: Docusate Sodium 100 MG Capsule PO SCH ×2 (08:27→22:12)
[2018-04-15] MEDS: Sennosides Liq 8.8 MG/5 ML UDC PO SCH (08:27)
[2018-04-15] MEDS: dilTIAZem 60 MG Tablet PO SCH ×4 (08:43→22:12)
--- NOTE | 2018-04-15 08:49 | P.PNCC ---
Subjective Subjective Remarks/Hospital Course: Patient is 72-year-old male with past medical history of COPD, tobacco abuse and hypertension who came to the emergency room for shortness of breath via EMS. On EMS arrival saturation was in the 90s, but patient had significant shortness of breath and dyspnea. Patient received Solu-Medrol 125 mg IV and breathing treatments by EMS and was brought to the emergency department. In the emergency department patient received further breathing treatments and chest x-ray showed patchy infiltrate on bilateral lung fitzgerald. Initially maintaining oxygen saturation with nasal cannula. Initial blood pressure was 85 /65, improved with normal saline boluses. WBC count was 17.1. Patient was deemed septic from pneumonia and patient was ordered to receive vancomycin and Zosyn. While receiving vancomycin patient acutely decompensated became extremely short of breath and developed erythematous maculopapular rash involving face torso armpits and groin region. Emergently intubated and placed on mechanical ventilation by the ED physician. Received IV 50 mg Benadryl. Critical care medicine was requested to admit the patient. I evaluated the patient immediately in the emergency department. Patient is intubated on Versed and fentanyl infusion however he is very asynchronous with the vent triggering ventilator alarms. Severe bilateral expiratory wheezing heard on auscultation. He has extensive skin rash predominantly face forehead torso armpit and groins. Appears like patient had anaphylactic reaction to vancomycin complicated by COPD exacerbation and pneumonia. I have ordered additional Solu-Medrol 100 mg x1 scheduled Benadryl and famotidine, antibiotics with cefepime and Levaquin. Increase Versed infusion, add propofol and use neuromuscular paralysis as needed. Will request pharmacy to add vancomycin to allergy. ED physician Dr. Slater had noticed that patient had some swelling on the left side of his face on arrival, however the skin rash after vancomycin was started was new. Patient remains hypotensive has received 2 L of normal saline in the emergency department and no significant urine output. I have ordered additional 2 L normal saline bolus and maintenance fluid at 84 mL/h. Use Levophed as needed to keep map above 65 Subjective 04/06: Off norepinephrine drip. Currently resting in bed in no acute distress on midazolam and fentanyl drips. Start tube feeding today. 04/07: Remains sedated, intubated on mechanical ventilation. Blood cultures growing MRSA 04/08: remains sedated and intubated. repeat cultures still growing MRSA 2/4 cultures. likely need to repeat BCx either today or tomorrow. agree with narrowing spectrum abx. performed DEEDEE at ID recommendation (need to r/o endocarditis), but no evidence of vegetations. remains hypoxic. off vasopressors today. 04/09: adequate auto-diuresis overnight. off vasopressors. on sedation vacation. hypoxia improving. 04/10 Patient remains intubated and sedated with Fentanyl infusion. Became tachycardic and tachypneic overnight requiring increase sedation. Afebrile. 04/11 Patient is intubated and sedated. Afebrile. 04/12 Patient remains intubated and sedated with Diprivan and Fentanyl infusion, Afebrile. 04/13: Sedated, easily arousable, orally intubated on mechanical ventilation. 04/14 Patient was extubated yesterday. Afebrile. 04/15 Patient is lying in bed in NAD. On 3L oxygen. Awake and alert. Objective Vital Signs / I&O: Vital Signs 04/14/18 09:00 04/14/18 09:01 04/14/18 10:00 Temperature Pulse Rate 82 85 84 Respiratory Rate 26 H Blood Pressure 167/94 H Pulse Oximetry 95 95 96 04/14/18 10:34 04/14/18 11:00 04/14/18 12:00 Temperature 98.7 F Pulse Rate 84 83 87 Respiratory Rate 20 Blood Pressure 155/88 H 150/90 H 145/94 H Pulse Oximetry 96 97 95 04/14/18 12:45 04/14/18 12:46 04/14/18 13:00 Temperature Pulse Rate 85 90 Respiratory Rate 20 Blood Pressure 157/92 H Pulse Oximetry 96 95 04/14/18 14:00 04/14/18 15:00 04/14/18 16:00 Temperature 98.9 F Pulse Rate 98 H 88 92 H Respiratory Rate 26 H Blood Pressure 160/89 H 134/83 137/76 Pulse Oximetry 92 L 93 L 96 04/14/18 16:01 04/14/18 17:00 04/14/18 17:01 Temperature Pulse Rate 91 H 85 86 Respiratory Rate Blood Pressure 137/76 151/84 H Pulse Oximetry 96 97 98 04/14/18 18:00 04/14/18 18:01 04/14/18 19:00 Temperature Pulse Rate 78 77 82 Respiratory Rate Blood Pressure 125/68 149/83 H Pulse Oximetry 97 96 99 04/14/18 19:37 04/14/18 20:00 04/14/18 21:00 Temperature 98.3 F Pulse Rate 81 79 Respiratory Rate Blood Pressure 149/81 H 147/79 H Pulse Oximetry 98 96 96 04/14/18 22:00 04/14/18 23:00 04/14/18 23:02 Temperature Pulse Rate 82 96 H 89 Respiratory Rate Blood Pressure 168/80 H 164/119 H 154/92 H Pulse Oximetry 98 94 L 93 L 04/15/18 00:00 04/15/18 02:00 04/15/18 04:00 Temperature 98.5 F 97.9 F Pulse Rate 84 86 90 Respiratory Rate Blood Pressure 145/83 H Pulse Oximetry 95 04/15/18 06:00 04/15/18 08:02 Temperature Pulse Rate 90 83 Respiratory Rate 18 Blood Pressure Pulse Oximetry 94 L Intake & Output 04/14/18 04/15/18 04/15/18 18:59 06:59 18:59 Intake Total 930 / 930 120 / 120 400 / 400 Output Total 950 / 950 1400 / 1400 Balance -20 / -20 -1280 / -1280 400 / 400 Weight 95.5 kg Intake: IV 780 / 780 400 / 400 Cubicin Inj 1,000 MG In NS Inj 100 / 100 100 ML @ 200 mls/hr IV.SIG Q24H [facility] Rx#:[id number] Gentamicin/NS 80 mg Premix 100 100 / 100 100 / 100 ML @ 200 mls/hr IV.SIG Q12H [facility] Rx#:[id number] Zyvox 600 mg Premix 300 ML @ 300 / 300 300 / 300 300 mls/hr IV.SIG Q12H [facility] Rx#: [id number] Glycophos Inj 30 MMOL In NS Inj 280 / 280 250 ML @ 42 mls/hr IV.SIG UNSCH PRN Rx#:[id number] Oral 150 / 150 120 / 120 Output: Urine 950 / 950 1400 / 1400 Other: # Incontinent Voids 2 3 Result Diagrams: 04/15/18 06:38 04/15/18 06:38 Other Results: Laboratory Results - last 12 hr 04/15/18 04/15/18 04/15/18 00:40 06:17 06:38 WBC RBC Hgb Hct MCV MCH MCHC RDW Plt Count MPV Neut % (Auto) Lymph % (Auto) Blair % (Auto) Eos % (Auto) Baso % (Auto) Neut # (Auto) Lymph # (Auto) Blair # (Auto) Eos # (Auto) Baso # (Auto) WBC Differential Differential Comment Sodium 137 Potassium 3.7 Chloride 97 L Carbon Dioxide 33.6 H Anion Gap 6 BUN 26 H Creatinine 0.56 L Estimated GFR Greater than 89 POC Glucose 101 102 Random Glucose 99 Calcium 8.3 L Phosphorus 2.0 L Magnesium 1.8 Total Bilirubin 1.5 H AST 36 ALT 58 Alkaline Phosphatase 52 Total Protein 5.9 L Albumin 2.3 L 04/15/18 06:38 WBC 12.4 H RBC 4.49 L Hgb 13.4 Hct 39.7 MCV 88.3 MCH 29.9 MCHC 33.9 RDW 13.9 Plt Count 178 MPV 9.4 Neut % (Auto) 90.2 H Lymph % (Auto) 4.5 L Blair % (Auto) 5.0 Eos % (Auto) 0.0 Baso % (Auto) 0.3 Neut # (Auto) 11.1 H Lymph # (Auto) 0.6 L Blair # (Auto) 0.6 Eos # (Auto) 0.0 Baso # (Auto) 0.0 WBC Differential . Differential Comment Auto diff final Sodium Potassium Chloride Carbon Dioxide Anion Gap BUN Creatinine Estimated GFR POC Glucose Random Glucose Calcium Phosphorus Magnesium Total Bilirubin AST ALT Alkaline Phosphatase Total Protein Albumin Imaging: Face CT 04/06/18 00:00 CONCLUSION: 1. Small focal area of soft tissue swelling involving the lateral orbital margin on the left. No abscess. Abdomen/Pelvis CT 04/10/18 00:00 CONCLUSION: 1. Findings in the patient's chest discussed on the patient's chest CT. 2. Left renal stone without hydronephrosis. 3. Slight AAA. 4. Possible gallstones within the gallbladder. 5. There is slight fluid within the peritoneal cavity in the pelvis and within left perinephric space and stranding densities involving the Gerota's fascia on the left side. The exact etiology is not certain could be inflammatory, and there is no hydronephrosis. Chest CT 04/10/18 00:00 CONCLUSION: 1. Significant worsening of the patient's lungs with interval development of numerous nodules multiple cavitary lesions which demonstrate air-fluid levels within them characteristic of a very aggressive infectious process destroying the patient's lungs could be seen with necrotizing MRSA, however the appearance is nonspecific. Head MRI 04/12/18 00:00 CONCLUSION: 1. Some chronic changes with mild cortical and central atrophy. Minimal periventricular and scattered deep white matter tract areas of small vessel ischemic demyelination. 2. Some fluid or secretions identified in the dependent portion of the nasopharynx. 3. Otherwise negative. No findings of intracranial mass lesion/abscess. Lumbar Spine MRI 04/12/18 00:00 CONCLUSION: 1. No evidence of epidural abscess. 2. Grade 1 anterolisthesis at L5-S1 with associated discogenic degenerative changes and bilateral pars defects. There is significant bilateral bony neural foraminal stenosis with bilateral neural impingement. 3. Asymmetric ligamentum flavum hypertrophy on the right side at the L4-5 level flattens the dorsal lateral aspect of the thecal sac. Neural foramen remain patent. 4. Suggestion of distended urinary bladder, incompletely imaged in the field-of -view. Thoracic Spine MRI 04/12/18 00:00 CONCLUSION: 1. Small bilateral pleural effusions. 2. Spinal canal is widely patent throughout without cord compromise. No findings of a paravertebral abscess. Abdomen X-Ray 04/12/18 09:42 CONCLUSION: No evidence of ileus. Chest X-Ray 04/13/18 00:00 CONCLUSION: 1. No significant interval change. 2. Stable ETT and NGT. 3. Stable right upper lobe airspace consolidation. 4. Stable bilateral lower lobe patchy airspace disease. Objective Remarks: GENERAL: Patient is lying in bed in NAD SKIN: Warm and dry. HEAD: Atraumatic. Normocephalic. EYES: Pupils equal and round. No scleral icterus. No injection or drainage. ENT: No nasal bleeding or discharge. Mucous membranes pink and moist. NECK: Trachea midline. No JVD. CARDIOVASCULAR: Regular rate and rhythm. sinus. RESPIRATORY: No accessory muscle use. equal chest rise. GASTROINTESTINAL: Abdomen soft, non-tender, nondistended. no guarding. MUSCULOSKELETAL: Extremities without clubbing, cyanosis, or edema. No obvious deformities. NEUROLOGICAL: Awake and alert Assessment and Plan - Problem List (1) Anaphylaxis Code(s): T78.2XXA - Anaphylactic shock, unspecified, initial encounter Status : Acute (2) COPD with acute exacerbation Code(s): J44.1 - Chronic obstructive pulmonary disease with (acute) exacerbation Status: Acute (3) Bilateral pneumonia Code(s): J18.9 - Pneumonia, unspecified organism Status: Acute (4) Allergic reaction caused by a drug Code(s): T78.40XA - Allergy, unspecified, initial encounter Status: Acute (5) Acute respiratory failure Code(s): J96.00 - Acute respiratory failure, unspecified whether with hypoxia or hypercapnia Status: Acute (6) Severe sepsis Code(s): A41.9 - Sepsis, unspecified organism; R65.20 - Severe sepsis without septic shock Status: Acute (7) Leukocytosis Code(s): D72.829 - Elevated white blood cell count, unspecified Status: Acute (8) Hypotension Code(s): I95.9 - Hypotension, unspecified Status: Acute (9) Acute kidney injury Code(s): N17.9 - Acute kidney failure, unspecified Status: Acute (10) Hyponatremia Code(s): E87.1 - Hypo-osmolality and hyponatremia Status: Acute (11) Hyperglycemia Code(s): R73.9 - Hyperglycemia, unspecified Status: Acute (12) History of hypertension Code(s): Z86.79 - Personal history of other diseases of the circulatory system Status: Chronic (13) Tobacco abuse Code(s): Z72.0 - Tobacco use Status: Chronic (14) History of COPD Code(s): Z87.09 - Personal history of other diseases of the respiratory system Status: Chronic - Assessment and Plan Plan: NEURO/Psych: Acute metabolic encephalopathy..improving - Awake and alert . Monitor neuro status. Avoid sedatives -CT face revealed left orbital swelling/lateral. MRI brain: Some chronic changes with mild cortical and central atrophy. Minimal periventricular and scattered deep white matter tract areas of small vessel ischemic demyelination. No findings of intracranial mass lesion/abscess. RESP: Acute hypoxic respiratory failure- slowly improving Anaphylactic reaction to vancomycin Community acquired MRSA pneumonia Acute COPD exacerbation Bilateral pneumonia Coronary artery calcification Tobaccoism Left lower lobe 1.5 cm pulmonary nodule. Outpatient PET scan -Extubated 04/13 -Continue with oxygen keep sats >92% -Albuterol/ipratropium aerosols every 4 hours with albuterol aerosols every 2 hours as needed dyspnea -CT chest 04/10: Significant worsening of the patient's lungs with interval development of numerous nodules multiple cavitary lesions which demonstrate air- fluid levels within them characteristic of a very aggressive infectious process destroying the patient's lungs could be seen with necrotizing MRSA -On Solumederol 40mg IV Q12 -Vancomycin added to allergy -CT of the chest 04/06 revealed pulmonary infiltrates. 1.5 cm left lower lobe pulmonary nodule. Outpatient PET scan -nicotine patch 7 mg daily. - Check CXR CV: History of hypertension septic shock- resolved Monitor HR and BP keep MAP>65mmHg. On Cardizem 60mg Q6, add Hydralazine 50mg Q8 for BP control Lactic acid 1.9 on 04/05 GI: Hypoalbuminemia Acute protein calorie malnutrition - moderate On Mechanical soft diet per Speech IV famotidine for GI prophylaxis/ -Docusate sodium/senna 1 tablet twice daily for bowel regimen -04/12 KUB abdomen: No ileus -Bowel regimen with Colace, Senna and Lactulose Renal/FEN/: Acute kidney injury- improving. Acute urinary retention Hypernatremia -Monitor renal function, I/O's,. Electrolytes replacement per protocol. Diurese with Lasix 40mg IX x1 ID: Septic shock- resolved Multifocal pneumonia MRSA bacteremia on 04/05, 04/07 MRSA pneumonia -Continue abx,( Zyvox, Gentamicin and Daptomycin) ID is following. Monitor CK - BC 04/05,04/07: MRSA, follow up BC from 04/09 MRSA, 04/10 BC: MRSA. -BC 04/12: NGTD -Sputum cx 04/06, 04/10: MRSA , - DEEDEE 04/08 without vegetations, normal EF -Awaiting tagged WBC scan, further workup per ID -MRI T-L spine: No abscess HEME: -Monitor CBC, coags ENDO: Hyperglycemia -Electrolyte replacement per protocol -Sliding scale insulin Accu-Cheks every 6 hours to maintain euglycemia PROPH: -Bilateral lower extremity SCDs. Enoxaparin/famotidine LINES: -Utilize peripheral IVs, Level 3 (1) Anaphylaxis Qualifiers: Encounter type: initial encounter Qualified Code(s): T78.2XXA - Anaphylactic shock, unspecified, initial encounter (3) Bilateral pneumonia Qualifiers: Pneumonia type: due to unspecified organism Lung location: unspecified part of lung Qualified Code(s): J18.9 - Pneumonia, unspecified organism (4) Allergic reaction caused by a drug Qualifiers: Encounter type: initial encounter Qualified Code(s): T78.40XA - Allergy, unspecified, initial encounter (5) Acute respiratory failure Qualifiers: Respiratory failure complication: unspecified whether with hypoxia or hypercapnia Qualified Code(s): J96.00 - Acute respiratory failure, unspecified whether with hypoxia or hypercapnia (7) Leukocytosis Qualifiers: Leukocytosis type: unspecified Qualified Code(s): D72.829 - Elevated white blood cell count, unspecified (8) Hypotension Qualifiers: Hypotension type: unspecified hypotension type Qualified Code(s): I95.9 - Hypotension, unspecified
[2018-04-15] MEDS: hydrALAZINE 50 MG Tablet PO SCH ×3 (09:38→18:31)
--- NOTE | 2018-04-15 10:00 | XR ---
EXAM DATE: 04/15/2018 9:50 AM EST AGE/SEX: 72 years / Male INDICATIONS: Shortness of breath. CLINICAL DATA: This is the patient's subsequent encounter. Patient reports that signs and symptoms h ave been present for 2 weeks and indicates a pain score of 0/10. MEDICAL/SURGICAL HISTORY: . Chronic obstructive pulmonary disease. Hypertension. . Fusion, peg mbar. [place] [facility] [place]. . FINDINGS: A single AP view of the chest demonstrates interval removal of the life support tubes including endot robert and nasogastric tube. There is persistent linear scarring/consolidation in the right apex wit h a cavitary lesion identified in the left upper lung and bibasilar airspace disease, left much worse than right. In fact, does appear to be some improving aeration in the right base. Questionable pleural reflection projects over the posterior left third rib. Cannot exclude a small le ft apical pneumothorax.. CONCLUSION: 1. Bilateral airspace disease with consolidation/fibrosis in the right upper lung, cavitary lesion i n the left upper lobe and bibasilar airspace disease, left worse than right. There is actually some i mproving aeration in the right lung base. 2. Questionable pleural reflection in the left upper lobe. Cannot exclude a small pneumothorax. Repe at chest radiograph in expiration for reevaluation. 3. Interval removal of life-support tubes including the endotracheal and nasogastric tubes. Electronically signed by: Kuldip Sims MD Board Certified Radiologist 04/15/2018 9:59 AM EST
--- NOTE | 2018-04-15 11:14 | NM ---
EXAM DATE: 04/15/2018 11:08 AM EST AGE/SEX: 72 years / Male INDICATIONS: Abscess in chest. CLINICAL DATA: This is the patient's initial encounter. Patient reports that signs and symptoms have been present for 1 week and indicates a pain score of 6/10. MEDICAL/SURGICAL HISTORY: Hypertension. Chronic obstructive pulmonary disease. . Back surgery. COMPARISON: [facility] [place] ABDOMEN & PELVIS W CONTRAST, 04/10/2018. [facility] [place], [place] CHEST W CONTRAST, 04/10/2018 . . TECHNIQUE: Whole body imaging was performed at the specified times after intravenous administration o f radiogallium. DOSE: 6 mCi Gallium 67 Citrate IV PLANAR IMAGIN hrs 24 hrs 48 hrs FINDINGS: There is mild uptake in the patient's left lower lung corresponding to cavitary lesions or parenchyma l consolidation seen on the patient's prior chest CT. There is also mild uptake involving bilateral u pper lobes. There is no abnormal uptake in the abdomen or pelvis. CONCLUSION: 1. There is abnormal uptake in the lungs corresponding to cavitary lesions probably lung abscesses a nd areas of consolidation seen on the patient's prior chest CT. Electronically signed by: Yves Garcia MD Board Certified Radiologist 04/15/2018 11:12 AM EST
[2018-04-15] MEDS: DAPTOmycin Inj 1,000 MG in Sodium Chlor 0.9% Inj 100 ML IV.SIG SCH (12:13)
[2018-04-15] MEDS: Sodium Glycerophosphate Inj 30 MMOL in Sodium Chlor 0.9% Inj 250 ML IV.SIG PRN (13:24)
--- NOTE | 2018-04-15 18:10 | P.PNID ---
Subjective Remarks: Last clx NGTD @ 3 days Initially OK p extubation, but after NM trip developped resp distress and now on NRB Gallium scan + for lungs only + low grade fever up to 99.8 Antibiotics: daptomycin zyvox Genta IV for synergy Lines: Line sites okay Past Medical History: COPD Allergies/Adverse Reactions: Allergies bee venom protein (honey bee) Allergy (Unknown, Verified 04/05/18 21:12) Edema vancomycin Allergy (Verified 04/05/18 23:33) Anaphylaxis Objective Vital Signs 04/14/18 19:00 04/14/18 19:37 04/14/18 20:00 Temperature 98.3 F Pulse Rate 82 81 Respiratory Rate Blood Pressure 149/83 H 149/81 H Pulse Oximetry 99 98 96 04/14/18 21:00 04/14/18 22:00 04/14/18 23:00 Temperature Pulse Rate 79 82 96 H Respiratory Rate Blood Pressure 147/79 H 168/80 H 164/119 H Pulse Oximetry 96 98 94 L 04/14/18 23:02 04/15/18 00:00 04/15/18 01:00 Temperature 98.5 F Pulse Rate 89 84 93 H Respiratory Rate Blood Pressure 154/92 H 145/83 H 149/91 H Pulse Oximetry 93 L 95 95 04/15/18 02:00 04/15/18 03:00 04/15/18 04:00 Temperature 97.9 F Pulse Rate 86 83 89 Respiratory Rate Blood Pressure 145/88 H 134/85 147/87 H Pulse Oximetry 96 96 94 L 04/15/18 05:00 04/15/18 06:00 04/15/18 07:00 Temperature Pulse Rate 90 90 84 Respiratory Rate Blood Pressure 142/85 H 178/97 H 135/84 Pulse Oximetry 96 95 94 L 04/15/18 08:00 04/15/18 08:02 04/15/18 08:39 Temperature 98.8 F Pulse Rate 83 83 90 Respiratory Rate 18 Blood Pressure 149/87 H 149/97 H Pulse Oximetry 93 L 94 L 94 L 04/15/18 09:00 04/15/18 10:00 04/15/18 10:57 Temperature Pulse Rate 101 H 101 H 100 H Respiratory Rate 39 H 34 H Blood Pressure 143/89 H 150/87 H Pulse Oximetry 95 93 L 90 L 04/15/18 11:00 04/15/18 11:02 04/15/18 12:00 Temperature 99.8 F H Pulse Rate 98 H 104 H 115 H Respiratory Rate 36 H Blood Pressure 140/86 155/77 H 164/112 H Pulse Oximetry 89 L 91 L 89 L 04/15/18 12:08 04/15/18 12:34 04/15/18 13:00 Temperature Pulse Rate 108 H 105 H 111 H Respiratory Rate 25 H Blood Pressure 153/81 H 109/65 Pulse Oximetry 90 L 90 L 04/15/18 13:38 04/15/18 14:00 04/15/18 15:00 Temperature Pulse Rate 105 H 94 H Respiratory Rate Blood Pressure 116/73 111/72 Pulse Oximetry 94 L 94 L 95 04/15/18 15:24 04/15/18 16:00 Temperature 98.8 F Pulse Rate 110 H 101 H Respiratory Rate 20 Blood Pressure 120/74 Pulse Oximetry 96 Intake & Output 04/14/18 04/15/18 04/15/18 18:59 06:59 18:59 Intake Total 930 / 930 120 / 120 400 / 400 Output Total 950 / 950 1400 / 1400 Balance -20 / -20 -1280 / -1280 400 / 400 Weight 95.5 kg Intake: IV 780 / 780 400 / 400 Cubicin Inj 1,000 MG In NS Inj 100 / 100 100 ML @ 200 mls/hr IV.SIG Q24H [facility] Rx#:[id number] Gentamicin/NS 80 mg Premix 100 100 / 100 100 / 100 ML @ 200 mls/hr IV.SIG Q12H [facility] Rx#:[id number] Zyvox 600 mg Premix 300 ML @ 300 / 300 300 / 300 300 mls/hr IV.SIG Q12H [facility] Rx#: [id number] Glycophos Inj 30 MMOL In NS Inj 280 / 280 250 ML @ 42 mls/hr IV.SIG UNSCH PRN Rx#:[id number] Oral 150 / 150 120 / 120 Output: Urine 950 / 950 1400 / 1400 Other: # Incontinent Voids 2 3 Date of Last Bowel Movement 04/13/18 04/12/18 13:55 Blood - Peripheral Aerobic Blood Culture - Preliminary No growth in 3 days 04/12/18 13:55 Blood - Peripheral Anaerobic Blood Culture - Preliminary No growth in 3 days 04/12/18 13:47 Blood - Peripheral Aerobic Blood Culture - Preliminary No growth in 3 days 04/12/18 13:47 Blood - Peripheral Anaerobic Blood Culture - Preliminary No growth in 3 days 04/10/18 11:42 Blood - Peripheral Aerobic Blood Culture - Final No growth in 5 days 04/10/18 11:42 Blood - Peripheral Anaerobic Blood Culture - Final S. aureus MRSA 04/09/18 08:47 Blood - Peripheral Aerobic Blood Culture - Final No growth in 5 days 04/09/18 08:47 Blood - Peripheral Anaerobic Blood Culture - Final S. aureus MRSA 04/09/18 08:45 Blood - Peripheral Aerobic Blood Culture - Final S. aureus MRSA 04/09/18 08:45 Blood - Peripheral Anaerobic Blood Culture - Final S. aureus MRSA Lab - Hematology Results 04/14/18 04/15/18 04:59 06:38 WBC 14.7 H 12.4 H RBC 4.42 L 4.49 L Hgb 13.1 13.4 Hct 39.6 39.7 MCV 89.6 88.3 MCH 29.7 29.9 MCHC 33.2 33.9 RDW 14.4 13.9 Plt Count 221 178 MPV 8.7 9.4 Neut % (Auto) 90.2 H Lymph % (Auto) 4.5 L Taney % (Auto) 5.0 Eos % (Auto) 0.0 Baso % (Auto) 0.3 Neut # (Auto) 11.1 H Lymph # (Auto) 0.6 L Taney # (Auto) 0.6 Eos # (Auto) 0.0 Baso # (Auto) 0.0 WBC Differential . Differential Comment Auto diff final Lab - Chemistry Results 04/13/18 04/14/18 04/14/18 23:31 04:59 05:46 Sodium 139 Potassium 4.0 Chloride 100 Carbon Dioxide 33.1 H Anion Gap 6 BUN 24 H Creatinine 0.51 L Estimated GFR Greater than 89 POC Glucose 113 H 123 H Random Glucose 126 H Calcium 8.7 Phosphorus 2.4 L Magnesium 2.0 Total Bilirubin AST ALT Alkaline Phosphatase Total Protein Albumin 04/14/18 04/14/18 04/15/18 13:28 17:17 00:40 Sodium Potassium Chloride Carbon Dioxide Anion Gap BUN Creatinine Estimated GFR POC Glucose 115 H 149 H 101 Random Glucose Calcium Phosphorus Magnesium Total Bilirubin AST ALT Alkaline Phosphatase Total Protein Albumin 04/15/18 04/15/18 04/15/18 06:17 06:38 12:05 Sodium 137 Potassium 3.7 Chloride 97 L Carbon Dioxide 33.6 H Anion Gap 6 BUN 26 H Creatinine 0.56 L Estimated GFR Greater than 89 POC Glucose 102 117 H Random Glucose 99 Calcium 8.3 L Phosphorus 2.0 L Magnesium 1.8 Total Bilirubin 1.5 H AST 36 ALT 58 Alkaline Phosphatase 52 Total Protein 5.9 L Albumin 2.3 L 04/15/18 17:36 Sodium Potassium Chloride Carbon Dioxide Anion Gap BUN Creatinine Estimated GFR POC Glucose 92 Random Glucose Calcium Phosphorus Magnesium Total Bilirubin AST ALT Alkaline Phosphatase Total Protein Albumin Imaging: ITS Impressions Face CT 04/06/18 00:00 CONCLUSION: 1. Small focal area of soft tissue swelling involving the lateral orbital margin on the left. No abscess. Abdomen/Pelvis CT 04/10/18 00:00 CONCLUSION: 1. Findings in the patient's chest discussed on the patient's chest CT. 2. Left renal stone without hydronephrosis. 3. Slight AAA. 4. Possible gallstones within the gallbladder. 5. There is slight fluid within the peritoneal cavity in the pelvis and within left perinephric space and stranding densities involving the Gerota's fascia on the left side. The exact etiology is not certain could be inflammatory, and there is no hydronephrosis. Chest CT 04/10/18 00:00 CONCLUSION: 1. Significant worsening of the patient's lungs with interval development of numerous nodules multiple cavitary lesions which demonstrate air-fluid levels within them characteristic of a very aggressive infectious process destroying the patient's lungs could be seen with necrotizing MRSA, however the appearance is nonspecific. Head MRI 04/12/18 00:00 CONCLUSION: 1. Some chronic changes with mild cortical and central atrophy. Minimal periventricular and scattered deep white matter tract areas of small vessel ischemic demyelination. 2. Some fluid or secretions identified in the dependent portion of the nasopharynx. 3. Otherwise negative. No findings of intracranial mass lesion/abscess. Lumbar Spine MRI 04/12/18 00:00 CONCLUSION: 1. No evidence of epidural abscess. 2. Grade 1 anterolisthesis at L5-S1 with associated discogenic degenerative changes and bilateral pars defects. There is significant bilateral bony neural foraminal stenosis with bilateral neural impingement. 3. Asymmetric ligamentum flavum hypertrophy on the right side at the L4-5 level flattens the dorsal lateral aspect of the thecal sac. Neural foramen remain patent. 4. Suggestion of distended urinary bladder, incompletely imaged in the field-of -view. Thoracic Spine MRI 04/12/18 00:00 CONCLUSION: 1. Small bilateral pleural effusions. 2. Spinal canal is widely patent throughout without cord compromise. No findings of a paravertebral abscess. Abdomen X-Ray 04/12/18 09:42 CONCLUSION: No evidence of ileus. Gallium Scan Nuclear Medicine 04/13/18 00:00 CONCLUSION: 1. There is abnormal uptake in the lungs corresponding to cavitary lesions probably lung abscesses and areas of consolidation seen on the patient's prior chest CT. Chest X-Ray 04/15/18 08:47 CONCLUSION: 1. Bilateral airspace disease with consolidation/fibrosis in the right upper lung, cavitary lesion in the left upper lobe and bibasilar airspace disease, left worse than right. There is actually some improving aeration in the right lung base. 2. Questionable pleural reflection in the left upper lobe. Cannot exclude a small pneumothorax. Repeat chest radiograph in expiration for reevaluation. 3. Interval removal of life-support tubes including the endotracheal and nasogastric tubes. Physical Exam: GENERAL: NAD comfortable on NRB SKIN: Warm and dry. No rash HEAD: Atraumatic. Normocephalic. EYES: Pupils equal and round. No scleral icterus. No injection or drainage. ENT: No nasal bleeding or discharge. Mucous membranes pink and moist. NECK: Trachea midline. No JVD. CARDIOVASCULAR: Regular rate and rhythm. RESPIRATORY: No accessory muscle use. scattered rhonchi to auscultation. Breath sounds equal bilaterally. GASTROINTESTINAL: Abdomen soft, non-tender, nondistended. MUSCULOSKELETAL: Extremities without clubbing, mi.ld toes cyanosis no significant edema. 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
[2018-04-15] MEDS: Enoxaparin Inj 40 MG/0.4 ML Syringe SQ SCH (22:14)
[2018-04-16] MEDS: Oral Hygiene Kit OROPHARYNG SCH ×5 (00:38→23:32)
[2018-04-16] MEDS: Insulin NovoLIN Regular Correctional Sugar Inj SQ SCH ×5 (00:39→23:34)
[2018-04-16] MEDS: Artificial Tears Opth Drops 15 ML Bottle EACH EYE SCH ×3 (05:07→21:33)
[2018-04-16 05:48] LABS: Baso % (Auto) 0.1 % (0.0-2.0); Hematocrit 41.1 % (39.0-51.0); Hemoglobin 13.4 gm/dL (13.0-17.0); Lymph # (Auto) 0.4 th/mm3 (1.0-4.8); Mean Corpuscular HGB Conc 32.7 % (32.0-36.0); Mean Corpuscular Hemoglobin 29.2 pg (27.0-34.0); Mean Corpuscular Volume 89.1 fL (80.0-100.0); Mean Platelet Volume 9.5 fL (7.0-11.0); Mono # (Auto) 0.4 th/mm3 (0.0-0.9); Mono % (Auto) 2.9 % (0.0-8.0); Neut # (Auto) 12.6 th/mm3 (1.8-7.7); Platelet Count 199 th/mm3 (150-450); Red Blood Count 4.61 mil/mm3 (4.50-5.90); Red Cell Distribution Width 14.3 % (11.6-17.2); White Blood Count 13.4 th/mm3 (4.0-11.0)
[2018-04-16 06:17] LABS: Albumin 2.4 g/dL (3.4-5.0); Anion Gap 7 meq/L (5-15); Aspartate Aminotransferase 34 U/L (15-37); Blood Urea Nitrogen 29 mg/dL (7-18); Calcium 8.5 mg/dL (8.5-10.1); Carbon Dioxide 34.2 meq/L (21.0-32.0); Chloride 97 meq/L (98-107); Glomerular Filtration Rate Greater Than 89 mL/min (>89); Glucose,Random 117 mg/dL (74-106); Potassium 3.8 meq/L (3.5-5.1); Sodium 138 meq/L (136-145)
[2018-04-16 06:20] LABS: Alanine Aminotransferase 81 U/L (12-78); Alkaline Phosphatase 63 U/L (45-117); Total Protein 6.1 g/dL (6.4-8.2)
[2018-04-16] MEDS: Docusate Sodium 100 MG Capsule PO SCH ×2 (08:01→21:33)
[2018-04-16] MEDS: dilTIAZem 60 MG Tablet PO SCH (08:01)
[2018-04-16] MEDS: hydrALAZINE 50 MG Tablet PO SCH (08:01)
[2018-04-16] MEDS: MethylPREDNISolone Sod Succinate Inj 40 MG/ML Vial IV.PUSH SCH ×2 (08:02→21:29)
[2018-04-16] MEDS: Sennosides Liq 8.8 MG/5 ML UDC PO SCH (08:02)
[2018-04-16] MEDS: Famotidine PF Inj 20 MG/2 ML Vial IV.PUSH SCH ×2 (08:02→21:30)
[2018-04-16] MEDS: Sodium Chloride 0.9% 2 ML Flush BID IV.FLUSH SCH ×2 (08:03→21:33)
[2018-04-16] MEDS: Chlorhexidine 0.12% Oral Kit 15 ML UDC OROPHARYNG SCH ×2 (08:03→21:29)
--- NOTE | 2018-04-16 09:15 | P.PNCC ---
Subjective Subjective Remarks/Hospital Course: Patient is 72-year-old male with past medical history of COPD, tobacco abuse and hypertension who came to the emergency room for shortness of breath via EMS. On EMS arrival saturation was in the 90s, but patient had significant shortness of breath and dyspnea. Patient received Solu-Medrol 125 mg IV and breathing treatments by EMS and was brought to the emergency department. In the emergency department patient received further breathing treatments and chest x-ray showed patchy infiltrate on bilateral lung fitzgerald. Initially maintaining oxygen saturation with nasal cannula. Initial blood pressure was 85 /65, improved with normal saline boluses. WBC count was 17.1. Patient was deemed septic from pneumonia and patient was ordered to receive vancomycin and Zosyn. While receiving vancomycin patient acutely decompensated became extremely short of breath and developed erythematous maculopapular rash involving face torso armpits and groin region. Emergently intubated and placed on mechanical ventilation by the ED physician. Received IV 50 mg Benadryl. Critical care medicine was requested to admit the patient. I evaluated the patient immediately in the emergency department. Patient is intubated on Versed and fentanyl infusion however he is very asynchronous with the vent triggering ventilator alarms. Severe bilateral expiratory wheezing heard on auscultation. He has extensive skin rash predominantly face forehead torso armpit and groins. Appears like patient had anaphylactic reaction to vancomycin complicated by COPD exacerbation and pneumonia. I have ordered additional Solu-Medrol 100 mg x1 scheduled Benadryl and famotidine, antibiotics with cefepime and Levaquin. Increase Versed infusion, add propofol and use neuromuscular paralysis as needed. Will request pharmacy to add vancomycin to allergy. ED physician Dr. Slater had noticed that patient had some swelling on the left side of his face on arrival, however the skin rash after vancomycin was started was new. Patient remains hypotensive has received 2 L of normal saline in the emergency department and no significant urine output. I have ordered additional 2 L normal saline bolus and maintenance fluid at 84 mL/h. Use Levophed as needed to keep map above 65 Subjective 04/06: Off norepinephrine drip. Currently resting in bed in no acute distress on midazolam and fentanyl drips. Start tube feeding today. 04/07: Remains sedated, intubated on mechanical ventilation. Blood cultures growing MRSA 04/08: remains sedated and intubated. repeat cultures still growing MRSA 2/4 cultures. likely need to repeat BCx either today or tomorrow. agree with narrowing spectrum abx. performed DEEDEE at ID recommendation (need to r/o endocarditis), but no evidence of vegetations. remains hypoxic. off vasopressors today. 04/09: adequate auto-diuresis overnight. off vasopressors. on sedation vacation. hypoxia improving. 04/10 Patient remains intubated and sedated with Fentanyl infusion. Became tachycardic and tachypneic overnight requiring increase sedation. Afebrile. 04/11 Patient is intubated and sedated. Afebrile. 04/12 Patient remains intubated and sedated with Diprivan and Fentanyl infusion, Afebrile. 04/13: Sedated, easily arousable, orally intubated on mechanical ventilation. 04/14 Patient was extubated yesterday. Afebrile. 04/15 Patient is lying in bed in NAD. On 3L oxygen. Awake and alert. 04/16 Patient is on partial rebreather. Afebrile. Awake and alert. Objective Vital Signs / I&O: Vital Signs 04/15/18 10:00 04/15/18 10:57 04/15/18 11:00 Temperature Pulse Rate 101 H 100 H 98 H Respiratory Rate 39 H 34 H 36 H Blood Pressure 150/87 H 140/86 Pulse Oximetry 93 L 90 L 89 L 04/15/18 11:02 04/15/18 12:00 04/15/18 12:08 Temperature 99.8 F H Pulse Rate 104 H 115 H 108 H Respiratory Rate Blood Pressure 155/77 H 164/112 H 153/81 H Pulse Oximetry 91 L 89 L 90 L 04/15/18 12:34 04/15/18 13:00 04/15/18 13:38 Temperature Pulse Rate 105 H 111 H Respiratory Rate 25 H Blood Pressure 109/65 Pulse Oximetry 90 L 94 L 04/15/18 14:00 04/15/18 15:00 04/15/18 15:24 Temperature Pulse Rate 105 H 94 H 110 H Respiratory Rate 20 Blood Pressure 116/73 111/72 Pulse Oximetry 94 L 95 04/15/18 16:00 04/15/18 18:00 04/15/18 19:00 Temperature 98.8 F Pulse Rate 101 H 96 H 102 H Respiratory Rate Blood Pressure 120/74 122/78 Pulse Oximetry 96 97 04/15/18 20:00 04/15/18 20:17 04/15/18 21:00 Temperature 99 F Pulse Rate 90 90 105 H Respiratory Rate 19 Blood Pressure 114/69 113/80 Pulse Oximetry 97 98 04/15/18 22:00 04/15/18 23:00 04/16/18 00:00 Temperature 98.9 F Pulse Rate 92 H 81 81 Respiratory Rate 17 Blood Pressure 112/71 103/62 114/67 Pulse Oximetry 97 100 99 04/16/18 01:00 04/16/18 02:00 04/16/18 03:00 Temperature Pulse Rate 74 73 74 Respiratory Rate Blood Pressure 106/61 106/63 102/60 Pulse Oximetry 100 99 99 04/16/18 03:45 04/16/18 04:00 04/16/18 06:00 Temperature 98.9 F Pulse Rate 81 75 92 H Respiratory Rate 21 Blood Pressure 99/59 L Pulse Oximetry 97 Intake & Output 04/15/18 04/16/18 04/16/18 18:59 06:59 18:59 Intake Total 900 / 900 1060 / 1060 Output Total 1375 / 1375 900 / 900 Balance -475 / -475 160 / 160 Weight 88 kg Intake: IV 900 / 900 580 / 580 Cubicin Inj 1,000 MG In NS Inj 100 / 100 100 ML @ 200 mls/hr IV.SIG Q24H [facility] Rx#:[id number] Gentamicin/NS 80 mg Premix 100 200 / 200 ML @ 200 mls/hr IV.SIG Q12H [facility] Rx#:[id number] Zyvox 600 mg Premix 300 ML @ 600 / 600 300 / 300 300 mls/hr IV.SIG Q12H [facility] Rx#: [id number] Glycophos Inj 30 MMOL In NS Inj 280 / 280 250 ML @ 42 mls/hr IV.SIG UNSCH PRN Rx#:[id number] Oral 480 / 480 Output: Urine Amount (Catheter) 1375 / 1375 900 / 900 Condom 1375 / 1375 900 / 900 Other: Date of Last Bowel Movement 04/13/18 04/13/18 Result Diagrams: 04/16/18 04:27 04/16/18 04:27 Other Results: Laboratory Results - last 12 hr 04/15/18 04/16/18 04/16/18 23:39 00:21 04:27 WBC 13.4 H RBC 4.61 Hgb 13.4 Hct 41.1 MCV 89.1 MCH 29.2 MCHC 32.7 RDW 14.3 Plt Count 199 MPV 9.5 Neut % (Auto) 94.0 H Lymph % (Auto) 3.0 L Coke % (Auto) 2.9 Eos % (Auto) 0.0 Baso % (Auto) 0.1 Neut # (Auto) 12.6 H Lymph # (Auto) 0.4 L Coke # (Auto) 0.4 Eos # (Auto) 0.0 Baso # (Auto) 0.0 WBC Differential . Differential Comment Auto diff final Sodium Potassium Chloride Carbon Dioxide Anion Gap BUN Creatinine Estimated GFR POC Glucose 112 H Random Glucose Calcium Phosphorus 3.0 D Total Bilirubin AST ALT Alkaline Phosphatase Total Protein Albumin 04/16/18 04/16/18 04:27 05:23 WBC RBC Hgb Hct MCV MCH MCHC RDW Plt Count MPV Neut % (Auto) Lymph % (Auto) Coke % (Auto) Eos % (Auto) Baso % (Auto) Neut # (Auto) Lymph # (Auto) Coke # (Auto) Eos # (Auto) Baso # (Auto) WBC Differential Differential Comment Sodium 138 Potassium 3.8 Chloride 97 L Carbon Dioxide 34.2 H Anion Gap 7 BUN 29 H Creatinine 0.52 L Estimated GFR Greater than 89 POC Glucose 112 H Random Glucose 117 H Calcium 8.5 Phosphorus Total Bilirubin 1.2 H AST 34 ALT 81 H Alkaline Phosphatase 63 Total Protein 6.1 L Albumin 2.4 L Imaging: Face CT 04/06/18 00:00 CONCLUSION: 1. Small focal area of soft tissue swelling involving the lateral orbital margin on the left. No abscess. Abdomen/Pelvis CT 04/10/18 00:00 CONCLUSION: 1. Findings in the patient's chest discussed on the patient's chest CT. 2. Left renal stone without hydronephrosis. 3. Slight AAA. 4. Possible gallstones within the gallbladder. 5. There is slight fluid within the peritoneal cavity in the pelvis and within left perinephric space and stranding densities involving the Gerota's fascia on the left side. The exact etiology is not certain could be inflammatory, and there is no hydronephrosis. Head MRI 04/12/18 00:00 CONCLUSION: 1. Some chronic changes with mild cortical and central atrophy. Minimal periventricular and scattered deep white matter tract areas of small vessel ischemic demyelination. 2. Some fluid or secretions identified in the dependent portion of the nasopharynx. 3. Otherwise negative. No findings of intracranial mass lesion/abscess. Lumbar Spine MRI 04/12/18 00:00 CONCLUSION: 1. No evidence of epidural abscess. 2. Grade 1 anterolisthesis at L5-S1 with associated discogenic degenerative changes and bilateral pars defects. There is significant bilateral bony neural foraminal stenosis with bilateral neural impingement. 3. Asymmetric ligamentum flavum hypertrophy on the right side at the L4-5 level flattens the dorsal lateral aspect of the thecal sac. Neural foramen remain patent. 4. Suggestion of distended urinary bladder, incompletely imaged in the field-of -view. Thoracic Spine MRI 04/12/18 00:00 CONCLUSION: 1. Small bilateral pleural effusions. 2. Spinal canal is widely patent throughout without cord compromise. No findings of a paravertebral abscess. Abdomen X-Ray 04/12/18 09:42 CONCLUSION: No evidence of ileus. Gallium Scan Nuclear Medicine 04/13/18 00:00 CONCLUSION: 1. There is abnormal uptake in the lungs corresponding to cavitary lesions probably lung abscesses and areas of consolidation seen on the patient's prior chest CT. Chest X-Ray 04/16/18 09:11 CONCLUSION: Stable chest appearance with bilateral infiltrates and small suspected left apical pneumothorax Chest CT 04/16/18 10:15 CONCLUSION: 1. A 23 mm left sided pneumothorax is identified. 2. Multiple cavitary lesions are again noted and slightly worse in appearance than on the previous examination. 3. Consolidation of the right upper lobe is again noted and [demonstrates] worsening cavitation. 4. Increased cavitation of the large left upper lobe lesion also. 5. Small partially loculated pleural effusions are noted. 6. Bibasilar alveolar consolidations are noted posteriorly consistent with probable atelectasis. 7. Tiny pericardial effusion is noted. 8. Degenerative changes are noted throughout the thoracic and upper lumbar spine. Objective Remarks: GENERAL: Patient is lying in bed in NAD SKIN: Warm and dry. HEAD: Atraumatic. Normocephalic. EYES: Pupils equal and round. No scleral icterus. No injection or drainage. ENT: No nasal bleeding or discharge. Mucous membranes pink and moist. NECK: Trachea midline. No JVD. CARDIOVASCULAR: Regular rate and rhythm. sinus. RESPIRATORY: No accessory muscle use. equal chest rise. GASTROINTESTINAL: Abdomen soft, non-tender, nondistended. no guarding. MUSCULOSKELETAL: Extremities without clubbing, cyanosis, or edema. No obvious deformities. NEUROLOGICAL: Awake and alert Assessment and Plan - Problem List (1) Anaphylaxis Code(s): T78.2XXA - Anaphylactic shock, unspecified, initial encounter Status : Acute (2) COPD with acute exacerbation Code(s): J44.1 - Chronic obstructive pulmonary disease with (acute) exacerbation Status: Acute (3) Bilateral pneumonia Code(s): J18.9 - Pneumonia, unspecified organism Status: Acute (4) Allergic reaction caused by a drug Code(s): T78.40XA - Allergy, unspecified, initial encounter Status: Acute (5) Acute respiratory failure Code(s): J96.00 - Acute respiratory failure, unspecified whether with hypoxia or hypercapnia Status: Acute (6) Severe sepsis Code(s): A41.9 - Sepsis, unspecified organism; R65.20 - Severe sepsis without septic shock Status: Acute (7) Leukocytosis Code(s): D72.829 - Elevated white blood cell count, unspecified Status: Acute (8) Hypotension Code(s): I95.9 - Hypotension, unspecified Status: Acute (9) Acute kidney injury Code(s): N17.9 - Acute kidney failure, unspecified Status: Acute (10) Hyponatremia Code(s): E87.1 - Hypo-osmolality and hyponatremia Status: Acute (11) Hyperglycemia Code(s): R73.9 - Hyperglycemia, unspecified Status: Acute (12) History of hypertension Code(s): Z86.79 - Personal history of other diseases of the circulatory system Status: Chronic (13) Tobacco abuse Code(s): Z72.0 - Tobacco use Status: Chronic (14) History of COPD Code(s): Z87.09 - Personal history of other diseases of the respiratory system Status: Chronic - Assessment and Plan Plan: NEURO/Psych: Acute metabolic encephalopathy..improving - Awake and alert . Monitor neuro status. Avoid sedatives -CT face revealed left orbital swelling/lateral. MRI brain: Some chronic changes with mild cortical and central atrophy. Minimal periventricular and scattered deep white matter tract areas of small vessel ischemic demyelination. No findings of intracranial mass lesion/abscess. RESP: Acute hypoxic respiratory failure- slowly improving Anaphylactic reaction to vancomycin Community acquired MRSA pneumonia Acute COPD exacerbation Bilateral pneumonia Coronary artery calcification Left lower lobe 1.5 cm pulmonary nodule. Outpatient PET scan -Extubated 04/13 -Continue with oxygen keep sats >92% -Albuterol/ipratropium aerosols every 4 hours with albuterol aerosols every 2 hours as needed dyspnea CT chest ordered today showed:: A 23 mm left sided pneumothorax is identified. Multiple cavitary lesions are again noted and slightly worse in appearance than on the previous examination. Consolidation of the right upper lobe is again noted and [demonstrates] worsening cavitation. Increased cavitation of the large left upper lobe lesion also. Small partially loculated pleural effusions are noted. Bibasilar alveolar consolidations are noted posteriorly consistent with probable atelectasis -A [address] tube placed on left . CXR ordered post CT placement -On Solumederol 40mg IV Q12 -Vancomycin added to allergy -nicotine patch 7 mg daily. - Check CXR CV: History of hypertension septic shock- resolved Monitor HR and BP keep MAP>65mmHg. On Cardizem 60mg Q6, Lactic acid 1.9 on 04/05 GI: Hypoalbuminemia Acute protein calorie malnutrition - moderate On Mechanical soft diet per Speech IV famotidine for GI prophylaxis/ -Docusate sodium/senna 1 tablet twice daily for bowel regimen -04/12 KUB abdomen: No ileus -Bowel regimen with Colace, Senna and Lactulose Renal/FEN/: Acute kidney injury- improving. Acute urinary retention Hypernatremia -Monitor renal function, I/O's,. Electrolytes replacement per protocol. ID: Septic shock- resolved Multifocal pneumonia MRSA bacteremia on 04/05, 04/07 MRSA pneumonia -Continue abx,( Zyvox and Daptomycin) ID is following. Monitor CK - BC 04/05,04/07: MRSA, follow up BC from 04/09 MRSA, 04/10 BC: MRSA. -BC 04/12: NGTD -Sputum cx 04/06, 04/10: MRSA , - DEEDEE 04/08 without vegetations, normal EF -Gallium scan: There is abnormal uptake in the lungs corresponding to cavitary lesions probably lung abscesses and areas of consolidation seen on the patient' s prior chest CT. -MRI T-L spine: No abscess HEME: -Monitor CBC, coags ENDO: Hyperglycemia -Electrolyte replacement per protocol -Sliding scale insulin Accu-Cheks every 6 hours to maintain euglycemia PROPH: -Bilateral lower extremity SCDs. Enoxaparin/famotidine LINES: -Utilize peripheral IVs, Level 3 (1) Anaphylaxis Qualifiers: Encounter type: initial encounter Qualified Code(s): T78.2XXA - Anaphylactic shock, unspecified, initial encounter (3) Bilateral pneumonia Qualifiers: Pneumonia type: due to unspecified organism Lung location: unspecified part of lung Qualified Code(s): J18.9 - Pneumonia, unspecified organism (4) Allergic reaction caused by a drug Qualifiers: Encounter type: initial encounter Qualified Code(s): T78.40XA - Allergy, unspecified, initial encounter (5) Acute respiratory failure Qualifiers: Respiratory failure complication: unspecified whether with hypoxia or hypercapnia Qualified Code(s): J96.00 - Acute respiratory failure, unspecified whether with hypoxia or hypercapnia (7) Leukocytosis Qualifiers: Leukocytosis type: unspecified Qualified Code(s): D72.829 - Elevated white blood cell count, unspecified (8) Hypotension Qualifiers: Hypotension type: unspecified hypotension type Qualified Code(s): I95.9 - Hypotension, unspecified
--- NOTE | 2018-04-16 09:36 | XR ---
EXAM DATE: 04/16/2018 9:32 AM EST AGE/SEX: 72 years / Male INDICATIONS: Short of breath CLINICAL DATA: This is the patient's subsequent encounter. Patient reports that signs and symptoms h ave been present for 4 - 6 days and indicates a pain score of 0/10. MEDICAL/SURGICAL HISTORY: . : Chronic obstructive pulmonary disease. Hypertension . Fusion, peg mbar COMPARISON: [facility], CHEST 1V SINGLE AP, 04/15/2018. . FINDINGS: Tiny left apical pneumothorax is again noted. Infiltrate in the left lung, mainly the left lung base is unchanged. Right suprahilar infiltrate is unchanged. Hazy density at the right base may be layerin g effusion. Cardiac contours are grossly unchanged. CONCLUSION: Stable chest appearance with bilateral infiltrates and small suspected left apical pneumothorax Electronically signed by: Akash Capone MD Board Certified Radiologist 04/16/2018 9:34 AM EST
[2018-04-16] MEDS ORDERED: Sod Chloride 0.9% Inj 1,000 ML IV.SIG SCH (10:30)
--- NOTE | 2018-04-16 11:44 | CT ---
EXAM DATE: 04/16/2018 11:28 AM EST AGE/SEX: 72 years / Male INDICATIONS: Necrotizing pneumonia. Possible pneumothorax. CLINICAL DATA: This is the patient's initial encounter. Patient reports that signs and symptoms have been present for 1 day and indicates a pain score of 0/10. MEDICAL/SURGICAL HISTORY: Chronic obstructive pulmonary disease. Hypertension. None. RADIATION DOSE: 9.65 CTDI (mGy) COMPARISON: [facility] [place], CT CHEST W CONTRAST, 04/10/2018. [facility] [place], CT CHEST W/O CONTRAST, 04/06/2018. . TECHNIQUE: Multiple contiguous axial images were obtained through the chest during bolus infusion of 70 ml Omnipaque 350 (iohexol) nonionic water-soluble contrast as a single exam dose. Images were obtained in suspended respiration using multiple row detector helical technique. Using automated exp osure control and adjustment of the mA and/or kV according to patient size, radiation dose was kept a s low as reasonably achievable to obtain optimal diagnostic quality images. DICOM format image data is available electronically for review and comparison. FINDINGS: A 23 mm left sided pneumothorax is identified. Multiple cavitary lesions are again noted and slightly worse in appearance than on the previous examination. Consolidation of the right upper lobe is again noted and demonstrates worsening cavitation. There is increased cavitation of the large left upper l obe lesion also. Small partially loculated pleural effusions are noted. Bibasilar alveolar consolidat ions are noted posteriorly consistent with probable atelectasis. Tiny pericardial effusion is noted. Degenerative changes are noted throughout the thoracic and upper lumbar spine. CONCLUSION: 1. A 23 mm left sided pneumothorax is identified. 2. Multiple cavitary lesions are again noted and slightly worse in appearance than on the previous e xamination. 3. Consolidation of the right upper lobe is again noted and [demonstrates] worsening cavitation. 4. Increased cavitation of the large left upper lobe lesion also. 5. Small partially loculated pleural effusions are noted. 6. Bibasilar alveolar consolidations are noted posteriorly consistent with probable atelectasis. 7. Tiny pericardial effusion is noted. 8. Degenerative changes are noted throughout the thoracic and upper lumbar spine. Electronically signed by: Vega Aguirre MD Board Certified Radiologist 04/16/2018 11:42 AM EST
[2018-04-16] MEDS: DAPTOmycin Inj 1,000 MG in Sodium Chlor 0.9% Inj 100 ML IV.SIG SCH (12:08)
[2018-04-16] MEDS ORDERED: fentaNYL Citrate Inj 100 MCG/2 ML Ampul ONE (12:47)
[2018-04-16] MEDS ORDERED: Lidocaine 1% Inj 50 ML Vial ONE (12:50)
--- NOTE | 2018-04-16 15:10 | XR ---
EXAM DATE: 04/16/2018 2:57 PM EST AGE/SEX: 72 years / Male INDICATIONS: Chest tube placement. CLINICAL DATA: This is the patient's initial encounter. Patient reports that signs and symptoms have been present for 1 day and indicates a pain score of Nonresponsive. MEDICAL/SURGICAL HISTORY: . Chronic obstructive pulmonary disease. Hypertension. . Lumbar fusi on. COMPARISON: [facility] [place], CT CHEST W CONTRAST, 04/16/2018. . FINDINGS: A left-sided chest tube has been placed. Tiny 6 mm left apical pneumothorax is noted. Scattered cavit faiza lesions are again noted bilaterally. Small bilateral pleural effusions are stable. The heart is u nchanged. CONCLUSION: 1. Tiny 6 mm left apical pneumothorax is still noted status post left chest tube placement. 2. Stable scattered cavitary lesions. 3. Small bilateral pleural effusions. Electronically signed by: Vega Aguirre MD Board Certified Radiologist 04/16/2018 3:09 PM EST
[2018-04-16] MEDS: Morphine Inj 4 MG/ML Vial IV.PUSH PRN ×2 (15:17→21:30)
--- NOTE | 2018-04-16 15:40 | P.PCN ---
Date of procedure: 04/16/18 Procedure: Procedure: Left 28Fr tube thoracostomy CXR findings: left-sided pneumothorax Consent: Obtained from the patient Premeds- Fentanyl 50 mics The patient was placed in the supine position. The arm was abducted above the head and secured. The left lateral chest was prepped and draped under sterile conditions. 1% Lidocaine was infiltrated subcutaneously. A small incision was made using blade at the mid-axillary line, blunt dissection was performed until the rib was palpated. A Louann clamp was used to bluntly enter the pleura immediately above the adjacent rib. The space was opened bluntly with the Louann clamp. Jett of air noted on entry of the chest. A finger was inserted and lung and pleura were felt. A 28 Fr chest tube was inserted along the course of the finger and into the pleural cavity easily and without resistance. The chest tube was connected to a Pleur-o-vac and connected to [id number] suction. The catheter was sutured to the skin and an occlusive dressing was applied. The patient tolerated the procedure well. CXR ordered post CT placement.
--- NOTE | 2018-04-16 19:37 | MB ---
cc: Chang Carey MD DATE: 04/16/2018 REQUESTING PHYSICIAN: Felecia De Leon MD REASON FOR CONSULTATION: Pneumonia and COPD. HISTORY OF PRESENT ILLNESS: Mr. Torres is a pleasant 72-year-old male with longstanding history of COPD and hypertension. He does not take any medication for his COPD. He states that for the last 6 months he was going downhill and was not feeling well. Because of worsening of shortness of breath, he came to the emergency room. He had COPD exacerbation, was given IV Solu-Medrol, got some better. He was given vancomycin and developed a rash. The patient developed respiratory failure and he was intubated. The patient remains intubated. CT scan of the chest today shows 23 mm left-sided pneumothorax, multiple cavitary lesions again seen, consolidation of the right upper lobe, small pericardial effusion noted. The patient had an echocardiogram that did not show any vegetation. His CBC shows WBC count 13.4, hemoglobin 13.4, hematocrit 41.1, MCV 89, platelet count 199. His sodium 130, potassium 3.8, chloride 97, CO2 34, BUN 29, creatinine 0.52. Blood cultures were positive for MRSA, now it is negative. PAST MEDICAL HISTORY: Significant for history of hypertension and COPD. History of back surgery. MEDICATIONS: He is currently takin. Albuterol and Atrovent nebulizer treatment. 2. Artificial tears. 3. Daptomycin 1000 mg. 4. Lovenox 40 mg a day. 5. Famotidine 20 mg a day. 6. He is on insulin coverage. 7. Zyvox 600 mg every 12 hours. 8. Solu-Medrol 40 mg every 12 hours. 9. Nicotine patch. ALLERGIES: 1. VANCOMYCIN. 2. BEE STINGS. SOCIAL HISTORY: He is , lives with his girlfriend. 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 He has a long history of smoking for 50 years or so, 1-1/2 packs a day and drinks socially. FAMILY HISTORY: He has 1 grown daughter. REVIEW OF SYSTEMS: He has not been doing well for the last 6 months or so, did not have any weight loss. No seizure, stroke or epilepsy. No DVT or pulmonary embolism. PHYSICAL EXAMINATION: GENERAL: Well-developed, well-nourished male, mildly short of breath. He is on nasal cannula. VITAL SIGNS: Blood pressure 92/60, heart rate 114, respirations 20, temperature 98.8. HEAD: His right pupil is bigger than the left. NECK: Supple. JVP not raised. CHEST: He has left chest tube in place, no air leak, has bilateral rhonchi, has scattered rales. HEART: S1, S2 normal. ABDOMEN: Soft, nondistended. Bowel sounds are present. EXTREMITIES: No edema. IMPRESSION: 1. MRSA pneumonia. 2. Cavitary pneumonia. 4. Chronic obstructive pulmonary disease. 5. Hypotension. 6. Left pneumothorax, status post chest tube. 7. Nicotine use. PLAN: I discussed with the patient. He is getting antibiotic per ID recommendation. Chest tube to suction. Repeat chest x-ray. Continue his aerosol treatments, subcutaneous Lovenox, and he is on IV Solu-Medrol. Monitor his electrolytes. Further treatment will depend on his course in the hospital. Thank you, Dr. De Leon, for this consult. MD JOSEF Jacobsen/malinda/ruth , 06:26 PM , 06:36 PM AMADA
--- NOTE | 2018-04-16 19:42 | P.PNID ---
Subjective Remarks: doing poorly Hypotensive Incerasing O2 requirements low grade temps < 100 Blood clx remain negative Galliumm scan + for pulmonary infection Sp pneumotharax, sp CT placement CT cehst showed progression Antibiotics: daptomycin zyvox Lines: Line sites okay Past Medical History: COPD Allergies/Adverse Reactions: Allergies bee venom protein (honey bee) Allergy (Unknown, Verified 04/05/18 21:12) Edema vancomycin Allergy (Verified 04/05/18 23:33) Anaphylaxis Objective Vital Signs 04/15/18 20:00 04/15/18 20:17 04/15/18 21:00 Temperature 99 F Pulse Rate 90 90 105 H Respiratory Rate 19 Blood Pressure 114/69 113/80 Pulse Oximetry 97 98 04/15/18 22:00 04/15/18 23:00 04/16/18 00:00 Temperature 98.9 F Pulse Rate 92 H 81 81 Respiratory Rate 17 Blood Pressure 112/71 103/62 114/67 Pulse Oximetry 97 100 99 04/16/18 01:00 04/16/18 02:00 04/16/18 03:00 Temperature Pulse Rate 74 73 74 Respiratory Rate Blood Pressure 106/61 106/63 102/60 Pulse Oximetry 100 99 99 04/16/18 03:45 04/16/18 04:00 04/16/18 06:00 Temperature 98.9 F Pulse Rate 81 75 92 H Respiratory Rate 21 Blood Pressure 99/59 L Pulse Oximetry 97 04/16/18 07:00 04/16/18 08:00 04/16/18 09:00 Temperature 98.4 F Pulse Rate 74 84 97 H Respiratory Rate Blood Pressure 105/63 114/71 98/52 L Pulse Oximetry 98 99 93 L 04/16/18 09:09 04/16/18 09:22 04/16/18 10:00 Temperature Pulse Rate 103 H 107 H Respiratory Rate 26 H Blood Pressure 82/50 L Pulse Oximetry 96 94 L 97 04/16/18 10:04 04/16/18 11:00 04/16/18 11:34 Temperature Pulse Rate 109 H 98 H 92 H Respiratory Rate Blood Pressure 85/51 L 94/53 L 96/53 L Pulse Oximetry 97 95 97 04/16/18 11:42 04/16/18 12:00 04/16/18 13:00 Temperature Pulse Rate 92 H 97 H 93 H Respiratory Rate 20 Blood Pressure 85/50 L 92/55 L Pulse Oximetry 95 97 04/16/18 13:08 04/16/18 14:00 04/16/18 15:00 Temperature Pulse Rate 94 H 95 H 98 H Respiratory Rate Blood Pressure 105/60 107/63 112/66 Pulse Oximetry 96 97 96 04/16/18 15:28 04/16/18 15:36 04/16/18 16:00 Temperature 98.8 F Pulse Rate 98 H 114 H Respiratory Rate 16 20 20 Blood Pressure 92/60 L Pulse Oximetry 97 04/16/18 18:00 Temperature Pulse Rate 110 H Respiratory Rate Blood Pressure Pulse Oximetry Intake & Output 04/16/18 04/16/18 04/17/18 06:59 18:59 06:59 Intake Total 1060 / 1060 1400 / 1400 Output Total 900 / 900 750 / 750 Balance 160 / 160 650 / 650 Weight 88 kg Intake: IV 580 / 580 1400 / 1400 Cubicin Inj 1,000 MG In NS Inj 100 / 100 100 ML @ 200 mls/hr IV.SIG Q24H [facility] Rx#:[id number] Zyvox 600 mg Premix 300 ML @ 300 / 300 300 / 300 300 mls/hr IV.SIG Q12H [facility] Rx#: [id number] NS Inj 1,000 ML @ 1000 mls/hr 1000 / 1000 IV.SIG BOLUS [facility] Rx#:[id number] Glycophos Inj 30 MMOL In NS Inj 280 / 280 250 ML @ 42 mls/hr IV.SIG UNSCH PRN Rx#:[id number] Oral 480 / 480 Output: Urine 750 / 750 Urine Amount (Catheter) 900 / 900 Condom 900 / 900 Other: Date of Last Bowel Movement 04/13/18 04/13/18 04/12/18 13:55 Blood - Peripheral Aerobic Blood Culture - Preliminary No growth in 4 days 04/12/18 13:55 Blood - Peripheral Anaerobic Blood Culture - Preliminary No growth in 4 days 04/12/18 13:47 Blood - Peripheral Aerobic Blood Culture - Preliminary No growth in 4 days 04/12/18 13:47 Blood - Peripheral Anaerobic Blood Culture - Preliminary No growth in 4 days 04/16/18 04:39 Blood - Peripheral Aerobic Blood Culture - Pending 04/16/18 04:39 Blood - Peripheral Anaerobic Blood Culture - Pending 04/16/18 04:27 Blood - Peripheral Aerobic Blood Culture - Pending 04/16/18 04:27 Blood - Peripheral Anaerobic Blood Culture - Pending 04/10/18 11:42 Blood - Peripheral Aerobic Blood Culture - Final No growth in 5 days 04/10/18 11:42 Blood - Peripheral Anaerobic Blood Culture - Final S. aureus MRSA 04/09/18 08:47 Blood - Peripheral Aerobic Blood Culture - Final No growth in 5 days 04/09/18 08:47 Blood - Peripheral Anaerobic Blood Culture - Final S. aureus MRSA Lab - Hematology Results 04/15/18 04/16/18 06:38 04:27 WBC 12.4 H 13.4 H RBC 4.49 L 4.61 Hgb 13.4 13.4 Hct 39.7 41.1 MCV 88.3 89.1 MCH 29.9 29.2 MCHC 33.9 32.7 RDW 13.9 14.3 Plt Count 178 199 MPV 9.4 9.5 Neut % (Auto) 90.2 H 94.0 H Lymph % (Auto) 4.5 L 3.0 L Cache % (Auto) 5.0 2.9 Eos % (Auto) 0.0 0.0 Baso % (Auto) 0.3 0.1 Neut # (Auto) 11.1 H 12.6 H Lymph # (Auto) 0.6 L 0.4 L Cache # (Auto) 0.6 0.4 Eos # (Auto) 0.0 0.0 Baso # (Auto) 0.0 0.0 WBC Differential . . Differential Comment Auto diff final Auto diff final Lab - Chemistry Results 04/15/18 04/15/18 04/15/18 00:40 06:17 06:38 Sodium 137 Potassium 3.7 Chloride 97 L Carbon Dioxide 33.6 H Anion Gap 6 BUN 26 H Creatinine 0.56 L Estimated GFR Greater than 89 POC Glucose 101 102 Random Glucose 99 Calcium 8.3 L Phosphorus 2.0 L Magnesium 1.8 Total Bilirubin 1.5 H AST 36 ALT 58 Alkaline Phosphatase 52 Total Protein 5.9 L Albumin 2.3 L 04/15/18 04/15/18 04/15/18 12:05 17:36 23:39 Sodium Potassium Chloride Carbon Dioxide Anion Gap BUN Creatinine Estimated GFR POC Glucose 117 H 92 Random Glucose Calcium Phosphorus 3.0 D Magnesium Total Bilirubin AST ALT Alkaline Phosphatase Total Protein Albumin 04/16/18 04/16/1804/16/19 00:21 04:27 05:23 Sodium 138 Potassium 3.8 Chloride 97 L Carbon Dioxide 34.2 H Anion Gap 7 BUN 29 H Creatinine 0.52 L Estimated GFR Greater than 89 POC Glucose 112 H 112 H Random Glucose 117 H Calcium 8.5 Phosphorus Magnesium Total Bilirubin 1.2 H AST 34 ALT 81 H Alkaline Phosphatase 63 Total Protein 6.1 L Albumin 2.4 L 04/16/18 04/16/18 11:57 17:37 Sodium Potassium Chloride Carbon Dioxide Anion Gap BUN Creatinine Estimated GFR POC Glucose 168 H 133 H Random Glucose Calcium Phosphorus Magnesium Total Bilirubin AST ALT Alkaline Phosphatase Total Protein Albumin Imaging: ITS Impressions Face CT 04/06/18 00:00 CONCLUSION: 1. Small focal area of soft tissue swelling involving the lateral orbital margin on the left. No abscess. Abdomen/Pelvis CT 04/10/18 00:00 CONCLUSION: 1. Findings in the patient's chest discussed on the patient's chest CT. 2. Left renal stone without hydronephrosis. 3. Slight AAA. 4. Possible gallstones within the gallbladder. 5. There is slight fluid within the peritoneal cavity in the pelvis and within left perinephric space and stranding densities involving the Gerota's fascia on the left side. The exact etiology is not certain could be inflammatory, and there is no hydronephrosis. Head MRI 04/12/18 00:00 CONCLUSION: 1. Some chronic changes with mild cortical and central atrophy. Minimal periventricular and scattered deep white matter tract areas of small vessel ischemic demyelination. 2. Some fluid or secretions identified in the dependent portion of the nasopharynx. 3. Otherwise negative. No findings of intracranial mass lesion/abscess. Lumbar Spine MRI 04/12/18 00:00 CONCLUSION: 1. No evidence of epidural abscess. 2. Grade 1 anterolisthesis at L5-S1 with associated discogenic degenerative changes and bilateral pars defects. There is significant bilateral bony neural foraminal stenosis with bilateral neural impingement. 3. Asymmetric ligamentum flavum hypertrophy on the right side at the L4-5 level flattens the dorsal lateral aspect of the thecal sac. Neural foramen remain patent. 4. Suggestion of distended urinary bladder, incompletely imaged in the field-of -view. Thoracic Spine MRI 04/12/18 00:00 CONCLUSION: 1. Small bilateral pleural effusions. 2. Spinal canal is widely patent throughout without cord compromise. No findings of a paravertebral abscess. Abdomen X-Ray 04/12/18 09:42 CONCLUSION: No evidence of ileus. Gallium Scan Nuclear Medicine 04/13/18 00:00 CONCLUSION: 1. There is abnormal uptake in the lungs corresponding to cavitary lesions probably lung abscesses and areas of consolidation seen on the patient's prior chest CT. Chest CT 04/16/18 10:15 CONCLUSION: 1. A 23 mm left sided pneumothorax is identified. 2. Multiple cavitary lesions are again noted and slightly worse in appearance than on the previous examination. 3. Consolidation of the right upper lobe is again noted and [demonstrates] worsening cavitation. 4. Increased cavitation of the large left upper lobe lesion also. 5. Small partially loculated pleural effusions are noted. 6. Bibasilar alveolar consolidations are noted posteriorly consistent with probable atelectasis. 7. Tiny pericardial effusion is noted. 8. Degenerative changes are noted throughout the thoracic and upper lumbar spine. Chest X-Ray 04/16/18 13:47 CONCLUSION: 1. Tiny 6 mm left apical pneumothorax is still noted status post left chest tube placement. 2. Stable scattered cavitary lesions. 3. Small bilateral pleural effusions. Physical Exam: GENERAL: NAD comfortable SKIN: Warm and dry. No rash HEAD: Atraumatic. Normocephalic. EYES: Pupils equal and round. No scleral icterus. No injection or drainage. ENT: No nasal bleeding or discharge. Mucous membranes pink and moist. NECK: Trachea midline. No JVD. CARDIOVASCULAR: Regular rate and rhythm. RESPIRATORY: No accessory muscle use. + rhonchi to auscultation. Breath sounds equal bilaterally. L sided CT in place GASTROINTESTINAL: Abdomen soft, non-tender, nondistended. MUSCULOSKELETAL: Extremities without clubbing, mi.ld toes cyanosis no significant edema. 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
[2018-04-16] MEDS: Enoxaparin Inj 40 MG/0.4 ML Syringe SQ SCH (23:31)
[2018-04-17] MEDS ORDERED: Pharmacy Ordered Lab Info OTHER ONE (02:45)
[2018-04-17] MEDS: Artificial Tears Opth Drops 15 ML Bottle EACH EYE SCH ×3 (04:35→21:11)
[2018-04-17] MEDS: Oral Hygiene Kit OROPHARYNG SCH ×4 (04:35→23:32)
[2018-04-17 05:12] LABS: Baso % (Auto) 0.1 % (0.0-2.0); Hematocrit 36.5 % (39.0-51.0); Hemoglobin 12.2 gm/dL (13.0-17.0); Lymph # (Auto) 0.4 th/mm3 (1.0-4.8); Lymph % (Auto) 2.6 % (9.0-44.0); Mean Corpuscular HGB Conc 33.3 % (32.0-36.0); Mean Corpuscular Hemoglobin 29.5 pg (27.0-34.0); Mean Corpuscular Volume 88.5 fL (80.0-100.0); Mean Platelet Volume 9.8 fL (7.0-11.0); Mono # (Auto) 0.6 th/mm3 (0.0-0.9); Mono % (Auto) 3.6 % (0.0-8.0); Neut # (Auto) 15.6 th/mm3 (1.8-7.7); Neut % (Auto) 93.7 % (16.0-70.0); Platelet Count 207 th/mm3 (150-450); Red Blood Count 4.12 mil/mm3 (4.50-5.90); Red Cell Distribution Width 14.2 % (11.6-17.2); White Blood Count 16.7 th/mm3 (4.0-11.0)
[2018-04-17 05:35] LABS: Alanine Aminotransferase 62 U/L (12-78); Albumin 2.2 g/dL (3.4-5.0); Anion Gap 6 meq/L (5-15); Aspartate Aminotransferase 23 U/L (15-37); Blood Urea Nitrogen 25 mg/dL (7-18); Calcium 8.1 mg/dL (8.5-10.1); Carbon Dioxide 29.9 meq/L (21.0-32.0); Chloride 100 meq/L (98-107); Glomerular Filtration Rate Greater Than 89 mL/min (>89); Glucose,Random 132 mg/dL (74-106); Sodium 136 meq/L (136-145)
[2018-04-17 05:38] LABS: Alkaline Phosphatase 54 U/L (45-117); Total Protein 5.7 g/dL (6.4-8.2)
[2018-04-17] MEDS: Insulin NovoLIN Regular Correctional Sugar Inj SQ SCH ×4 (06:42→23:47)
--- NOTE | 2018-04-17 06:54 | XR ---
EXAM DATE: 04/17/2018 6:42 AM EST AGE/SEX: 72 years / Male INDICATIONS: Pneumothorax. CLINICAL DATA: This is the patient's subsequent encounter. Patient reports that signs and symptoms h ave been present for 4 - 6 days and indicates a pain score of Nonresponsive. MEDICAL/SURGICAL HISTORY: . Chronic obstructive pulmonary disease. Hypertension. Fusion, lumb ar. COMPARISON: [facility] – [place], CHEST 1V SINGLE AP, 04/16/2018. . FINDINGS: Single AP view the chest. Left-sided chest tube remains in place. Very small left apical pneumothorax is now seen measuring 3 mm. Bilateral pulmonary opacity unchanged. No evidence of pleural effusion. Cardiomediastinal silhouette unchanged. CONCLUSION: 1. Very small left apical pneumothorax, slightly decreased from the prior study. 2. Left-sided chest tube remains in place. 3. No change in bilateral pulmonary opacities. Electronically signed by: Lawrence Hollis MD Board Certified Radiologist 04/17/2018 6:52 AM EST
--- NOTE | 2018-04-17 08:27 | P.PNCC ---
Subjective Subjective Remarks/Hospital Course: Patient is 72-year-old male with past medical history of COPD, tobacco abuse and hypertension who came to the emergency room for shortness of breath via EMS. On EMS arrival saturation was in the 90s, but patient had significant shortness of breath and dyspnea. Patient received Solu-Medrol 125 mg IV and breathing treatments by EMS and was brought to the emergency department. In the emergency department patient received further breathing treatments and chest x-ray showed patchy infiltrate on bilateral lung fitzgerald. Initially maintaining oxygen saturation with nasal cannula. Initial blood pressure was 85 /65, improved with normal saline boluses. WBC count was 17.1. Patient was deemed septic from pneumonia and patient was ordered to receive vancomycin and Zosyn. While receiving vancomycin patient acutely decompensated became extremely short of breath and developed erythematous maculopapular rash involving face torso armpits and groin region. Emergently intubated and placed on mechanical ventilation by the ED physician. Received IV 50 mg Benadryl. Critical care medicine was requested to admit the patient. I evaluated the patient immediately in the emergency department. Patient is intubated on Versed and fentanyl infusion however he is very asynchronous with the vent triggering ventilator alarms. Severe bilateral expiratory wheezing heard on auscultation. He has extensive skin rash predominantly face forehead torso armpit and groins. Appears like patient had anaphylactic reaction to vancomycin complicated by COPD exacerbation and pneumonia. I have ordered additional Solu-Medrol 100 mg x1 scheduled Benadryl and famotidine, antibiotics with cefepime and Levaquin. Increase Versed infusion, add propofol and use neuromuscular paralysis as needed. Will request pharmacy to add vancomycin to allergy. ED physician Dr. Slater had noticed that patient had some swelling on the left side of his face on arrival, however the skin rash after vancomycin was started was new. Patient remains hypotensive has received 2 L of normal saline in the emergency department and no significant urine output. I have ordered additional 2 L normal saline bolus and maintenance fluid at 84 mL/h. Use Levophed as needed to keep map above 65 Subjective 04/06: Off norepinephrine drip. Currently resting in bed in no acute distress on midazolam and fentanyl drips. Start tube feeding today. 04/07: Remains sedated, intubated on mechanical ventilation. Blood cultures growing MRSA 04/08: remains sedated and intubated. repeat cultures still growing MRSA 2/4 cultures. likely need to repeat BCx either today or tomorrow. agree with narrowing spectrum abx. performed DEEDEE at ID recommendation (need to r/o endocarditis), but no evidence of vegetations. remains hypoxic. off vasopressors today. 04/09: adequate auto-diuresis overnight. off vasopressors. on sedation vacation. hypoxia improving. 04/10 Patient remains intubated and sedated with Fentanyl infusion. Became tachycardic and tachypneic overnight requiring increase sedation. Afebrile. 04/11 Patient is intubated and sedated. Afebrile. 04/12 Patient remains intubated and sedated with Diprivan and Fentanyl infusion, Afebrile. 04/13: Sedated, easily arousable, orally intubated on mechanical ventilation. 04/14 Patient was extubated yesterday. Afebrile. 04/15 Patient is lying in bed in NAD. On 3L oxygen. Awake and alert. 04/16 Patient is on partial rebreather. Afebrile. Awake and alert. 04/17: Left-sided chest tube placed for pneumothorax yesterday. On nasal cannula currently. Awake and alert. Appears comfortable. No air leak noted in Pleur-evac Objective Vital Signs / I&O: Vital Signs 04/16/18 09:00 04/16/18 09:09 04/16/18 09:22 Temperature Pulse Rate 97 H 103 H Respiratory Rate 26 H Blood Pressure 98/52 L Pulse Oximetry 93 L 96 94 L 04/16/18 10:00 04/16/18 10:04 04/16/18 11:00 Temperature Pulse Rate 107 H 109 H 98 H Respiratory Rate Blood Pressure 82/50 L 85/51 L 94/53 L Pulse Oximetry 97 97 95 04/16/18 11:34 04/16/18 11:42 04/16/18 12:00 Temperature Pulse Rate 92 H 92 H 97 H Respiratory Rate 20 Blood Pressure 96/53 L 85/50 L Pulse Oximetry 97 95 04/16/18 13:00 04/16/18 13:08 04/16/18 14:00 Temperature Pulse Rate 93 H 94 H 95 H Respiratory Rate Blood Pressure 92/55 L 105/60 107/63 Pulse Oximetry 97 96 97 04/16/18 15:00 04/16/18 15:28 04/16/18 15:36 Temperature Pulse Rate 98 H 98 H Respiratory Rate 16 20 Blood Pressure 112/66 Pulse Oximetry 96 04/16/18 16:00 04/16/18 18:00 04/16/18 19:00 Temperature 98.8 F Pulse Rate 114 H 110 H 104 H Respiratory Rate 20 Blood Pressure 92/60 L 110/69 Pulse Oximetry 97 98 04/16/18 20:00 04/16/18 20:34 04/16/18 21:00 Temperature 99.1 F Pulse Rate 104 H 107 H 105 H Respiratory Rate 20 16 Blood Pressure 106/79 123/67 Pulse Oximetry 95 96 96 04/16/18 22:00 04/16/18 23:00 04/17/18 00:00 Temperature 99 F Pulse Rate 103 H 95 H 102 H Respiratory Rate 20 Blood Pressure 118/69 114/69 111/66 Pulse Oximetry 97 97 93 L 04/17/18 01:00 04/17/18 02:00 04/17/18 02:05 Temperature Pulse Rate 108 H 91 H 97 H Respiratory Rate Blood Pressure 135/79 124/73 Pulse Oximetry 92 L 98 96 04/17/18 03:00 04/17/18 04:00 04/17/18 04:19 Temperature 98.9 F Pulse Rate 95 H 112 H 106 H Respiratory Rate 20 Blood Pressure 125/77 107/64 Pulse Oximetry 96 90 L 04/17/18 06:00 04/17/18 06:52 Temperature Pulse Rate 95 H 88 Respiratory Rate 22 Blood Pressure Pulse Oximetry Intake & Output 04/16/18 04/17/18 04/17/18 18:59 06:59 18:59 Intake Total 1400 / 1400 880 / 880 Output Total 750 / 750 1600 / 1600 Balance 650 / 650 -720 / -720 Weight 88.5 kg Intake: IV 1400 / 1400 400 / 400 Teflaro Inj 600 MG In NS Inj 100 / 100 100 ML @ 100 mls/hr IV.SIG Q12H [facility] Rx#:[id number] Cubicin Inj 1,000 MG In NS Inj 100 / 100 100 ML @ 200 mls/hr IV.SIG Q24H [facility] Rx#:[id number] Zyvox 600 mg Premix 300 ML @ 300 / 300 300 / 300 300 mls/hr IV.SIG Q12H [facility] Rx#: [id number] NS Inj 1,000 ML @ 1000 mls/hr 1000 / 1000 IV.SIG BOLUS [facility] Rx#:[id number] Oral 480 / 480 Output: Urine 750 / 750 1450 / 1450 Chest Tube Drainage 150 / 150 Left 150 / 150 Other: Date of Last Bowel Movement 04/13/18 04/13/18 Result Diagrams: 04/17/18 03:15 04/17/18 03:15 Objective Remarks: GENERAL: Patient is lying in bed in NAD, on nasal cannula SKIN: Warm and dry. HEAD: Atraumatic. Normocephalic. EYES: Pupils equal and round. No scleral icterus. No injection or drainage. ENT: No nasal bleeding or discharge. Mucous membranes pink and moist. NECK: Trachea midline. No JVD. CARDIOVASCULAR: Regular rate and rhythm. sinus. RESPIRATORY: No accessory muscle use. equal chest rise. Scattered rhonchi bilaterally. Left-sided chest tube in place. No air leak noted GASTROINTESTINAL: Abdomen soft, non-tender, nondistended. no guarding. MUSCULOSKELETAL: Extremities without clubbing, cyanosis, or edema. No obvious deformities. NEUROLOGICAL: Awake and alert Assessment and Plan - Problem List (1) Anaphylaxis Code(s): T78.2XXA - Anaphylactic shock, unspecified, initial encounter Status : Acute (2) COPD with acute exacerbation Code(s): J44.1 - Chronic obstructive pulmonary disease with (acute) exacerbation Status: Acute (3) Bilateral pneumonia Code(s): J18.9 - Pneumonia, unspecified organism Status: Acute (4) Allergic reaction caused by a drug Code(s): T78.40XA - Allergy, unspecified, initial encounter Status: Acute (5) Acute respiratory failure Code(s): J96.00 - Acute respiratory failure, unspecified whether with hypoxia or hypercapnia Status: Acute (6) Severe sepsis Code(s): A41.9 - Sepsis, unspecified organism; R65.20 - Severe sepsis without septic shock Status: Acute (7) Leukocytosis Code(s): D72.829 - Elevated white blood cell count, unspecified Status: Acute (8) Hypotension Code(s): I95.9 - Hypotension, unspecified Status: Acute (9) Acute kidney injury Code(s): N17.9 - Acute kidney failure, unspecified Status: Acute (10) Hyponatremia Code(s): E87.1 - Hypo-osmolality and hyponatremia Status: Acute (11) Hyperglycemia Code(s): R73.9 - Hyperglycemia, unspecified Status: Acute (12) History of hypertension Code(s): Z86.79 - Personal history of other diseases of the circulatory system Status: Chronic (13) Tobacco abuse Code(s): Z72.0 - Tobacco use Status: Chronic (14) History of COPD Code(s): Z87.09 - Personal history of other diseases of the respiratory system Status: Chronic - Assessment and Plan Plan: NEURO/Psych: Acute metabolic encephalopathy..improving - Awake and alert . Monitor neuro status. Avoid sedatives -CT face revealed left orbital swelling/lateral. MRI brain: Some chronic changes with mild cortical and central atrophy. Minimal periventricular and scattered deep white matter tract areas of small vessel ischemic demyelination. No findings of intracranial mass lesion/abscess. RESP: Acute hypoxic respiratory failure- slowly improving Anaphylactic reaction to vancomycin Community acquired MRSA pneumonia Acute COPD exacerbation Bilateral pneumonia Coronary artery calcification Left lower lobe 1.5 cm pulmonary nodule. Outpatient PET scan -Extubated 04/13 -Continue with oxygen keep sats >92% -Albuterol/ipratropium aerosols every 4 hours with albuterol aerosols every 2 hours as needed dyspnea CT chest ordered 04/16 showed:: A 23 mm left sided pneumothorax is identified. Multiple cavitary lesions are again noted and slightly worse in appearance than on the previous examination. Consolidation of the right upper lobe is again noted and [demonstrates] worsening cavitation. Increased cavitation of the large left upper lobe lesion also. Small partially loculated pleural effusions are noted. Bibasilar alveolar consolidations are noted posteriorly consistent with probable atelectasis -A [address] tube placed on left . -On Solumederol 40mg IV Q12 -Vancomycin added to allergy -nicotine patch 7 mg daily. - Check CXR CV: History of hypertension septic shock- resolved Monitor HR and BP keep MAP>65mmHg. On Cardizem 60mg Q6, Lactic acid 1.9 on 04/05 GI: Hypoalbuminemia Acute protein calorie malnutrition - moderate On Mechanical soft diet per Speech IV famotidine for GI prophylaxis/ -Docusate sodium/senna 1 tablet twice daily for bowel regimen -04/12 KUB abdomen: No ileus -Bowel regimen with Colace, Senna and Lactulose Renal/FEN/: Acute kidney injury- improving. Acute urinary retention Hypernatremia -Monitor renal function, I/O's,. Electrolytes replacement per protocol. ID: Septic shock- resolved Multifocal pneumonia MRSA bacteremia on 04/05, 04/07 MRSA pneumonia -Continue abx,( Zyvox and Daptomycin) ID is following. Monitor CK. ID added Teflaro on 04/17 - BC 04/05,04/07: MRSA, follow up BC from 04/09 MRSA, 04/10 BC: MRSA. -BC 04/12: NGTD -Sputum cx 04/06, 04/10: MRSA , - DEEDEE 04/08 without vegetations, normal EF -Gallium scan: There is abnormal uptake in the lungs corresponding to cavitary lesions probably lung abscesses and areas of consolidation seen on the patient' s prior chest CT. -MRI T-L spine: No abscess HEME: -Monitor CBC, coags ENDO: Hyperglycemia -Electrolyte replacement per protocol -Sliding scale insulin Accu-Cheks every 6 hours to maintain euglycemia PROPH: -Bilateral lower extremity SCDs. Enoxaparin/famotidine LINES: -Utilize peripheral IVs, Level 3 (1) Anaphylaxis Qualifiers: Encounter type: initial encounter Qualified Code(s): T78.2XXA - Anaphylactic shock, unspecified, initial encounter (3) Bilateral pneumonia Qualifiers: Pneumonia type: due to unspecified organism Lung location: unspecified part of lung Qualified Code(s): J18.9 - Pneumonia, unspecified organism (4) Allergic reaction caused by a drug Qualifiers: Encounter type: initial encounter Qualified Code(s): T78.40XA - Allergy, unspecified, initial encounter (5) Acute respiratory failure Qualifiers: Respiratory failure complication: unspecified whether with hypoxia or hypercapnia Qualified Code(s): J96.00 - Acute respiratory failure, unspecified whether with hypoxia or hypercapnia (7) Leukocytosis Qualifiers: Leukocytosis type: unspecified Qualified Code(s): D72.829 - Elevated white blood cell count, unspecified (8) Hypotension Qualifiers: Hypotension type: unspecified hypotension type Qualified Code(s): I95.9 - Hypotension, unspecified
[2018-04-17] MEDS: Sodium Chloride 0.9% 2 ML Flush BID IV.FLUSH SCH ×2 (10:15→21:10)
[2018-04-17] MEDS: Famotidine PF Inj 20 MG/2 ML Vial IV.PUSH SCH ×2 (10:15→21:10)
[2018-04-17] MEDS: Docusate Sodium 100 MG Capsule PO SCH ×2 (10:15→21:10)
[2018-04-17] MEDS: MethylPREDNISolone Sod Succinate Inj 40 MG/ML Vial IV.PUSH SCH ×2 (10:16→21:10)
[2018-04-17] MEDS: Sennosides Liq 8.8 MG/5 ML UDC PO SCH (10:16)
[2018-04-17] MEDS: Chlorhexidine 0.12% Oral Kit 15 ML UDC OROPHARYNG SCH ×2 (10:17→21:10)
[2018-04-17] MEDS: DAPTOmycin Inj 1,000 MG in Sodium Chlor 0.9% Inj 100 ML IV.SIG SCH (12:54)
[2018-04-17] MEDS ORDERED: Acetaminophen 325 MG Tablet PO PRN (15:44)
--- NOTE | 2018-04-17 16:13 | P.DIET ---
Nutritional Evaluation Type of nutrition evaluation: follow-up Nutrition consult regarding: Diet Evaluation Screening comments: 04/06/18 TF review Objective - Diagnosis respiratory failure, pneumonia, allergic reaction - Objective % IBW: 108 (IBW = 178lb) Body Weight Used for Calculations: Actual (88kg) Energy Needs - Lower Range (kCal/kg): 25 Energy Needs - Upper Range (kCal/kg): 30 Lower Limit kCal/kg (kCals): 2,200 Upper Limit kCal/kg (kCals): 2,640 Lower Limit Protein Factor (Grams per Kg): 1.1 Upper Limit Protein Factor (Grams per Kg): 1.3 Lower Protein Needs (Protein): 97 Upper Protein Needs (Protein): 114 Dietitian Reviewed in Medical Record: Curent medications, Intake & Output, Labs , Medical history, Tube feeding Diet Order: cardiac, 2gNa Oral Diet Intake Amount: Fair 50-75% Speech Therapy Recommendations: Yes (mech soft, nectar thick) Objective Comments: PMH: COPD, hx of MRSA, HTN Labs: POC glucose 121 113 111 Assessment Assessment: Pt was extubated on 04/13/18 and also had TF d/dylon as well. Pt currently on a cardiac diet and tolerating well per IGLESIA Mireles. RN also mentioned pt does not have any chewing/swallowing issues currently. ST recs reviewed, pt is able to tolerate mechanical soft foods and nectar thick liquids. ST also mentioned pt may be dependent for PO intake, encourage PO intake and provide feed assistance as needed. RD will continue to monitor pts nutritional status for a PO supplement. Continue to monitor PO intake. Labs reviewed, dietitian following. Recommendations: 1. ST recs reviewed, pt is able to tolerate mechanical soft foods and nectar thick liquids 2. Encourage PO intake and provide feed assistance as needed 3. RD will continue to monitor pts nutritional status for a PO supplement 4. Continue to monitor PO intake 5. Dietitian following Dietitian to Monitor: Lab values, Glucose level, Intake & Output, Diet tolerance , Weight change, PO Intake, Medical course
--- NOTE | 2018-04-17 18:20 | P.PNPL ---
Subjective Interval history: 72 YOWM with MRSA Pn, cavitary lesion, COPD, Lt ptx Left chest tube to suction On NC mild sob Congested, not bringing up sp No Fever Physical Exam Vital signs: Vital Signs 04/16/18 19:00 04/16/18 20:00 04/16/18 20:34 Temperature 99.1 F Pulse Rate 104 H 104 H 107 H Respiratory Rate 20 16 Blood Pressure 110/69 106/79 Pulse Oximetry 98 95 96 04/16/18 21:00 04/16/18 22:00 04/16/18 23:00 Temperature Pulse Rate 105 H 103 H 95 H Respiratory Rate Blood Pressure 123/67 118/69 114/69 Pulse Oximetry 96 97 97 04/17/18 00:00 04/17/18 01:00 04/17/18 02:00 Temperature 99 F Pulse Rate 102 H 108 H 91 H Respiratory Rate 20 Blood Pressure 111/66 135/79 Pulse Oximetry 93 L 92 L 98 04/17/18 02:05 04/17/18 03:00 04/17/18 04:00 Temperature 98.9 F Pulse Rate 97 H 95 H 112 H Respiratory Rate 20 Blood Pressure 124/73 125/77 Pulse Oximetry 96 96 04/17/18 04:19 04/17/18 05:00 04/17/18 06:00 Temperature Pulse Rate 106 H 96 H 96 H Respiratory Rate Blood Pressure 107/64 102/63 146/76 H Pulse Oximetry 90 L 95 94 L 04/17/18 06:52 04/17/18 07:00 04/17/18 08:00 Temperature Pulse Rate 88 90 96 H Respiratory Rate 22 Blood Pressure 140/81 130/74 Pulse Oximetry 96 93 L 04/17/18 09:00 04/17/18 10:00 04/17/18 10:03 Temperature Pulse Rate 92 H 100 H 105 H Respiratory Rate 22 Blood Pressure 124/71 108/56 L Pulse Oximetry 85 L 96 98 04/17/18 11:00 04/17/18 11:20 04/17/18 12:00 Temperature 98.6 F Pulse Rate 87 105 H Respiratory Rate 28 H 29 H Blood Pressure 105/58 L 120/71 Pulse Oximetry 94 L 94 L 93 L 04/17/18 13:00 04/17/18 14:00 04/17/18 15:00 Temperature Pulse Rate 104 H 101 H 101 H Respiratory Rate 38 H 39 H 37 H Blood Pressure 119/69 109/61 115/82 Pulse Oximetry 90 L 93 L 95 04/17/18 16:00 04/17/18 17:00 04/17/18 17:32 Temperature 98.4 F Pulse Rate 96 H 84 93 H Respiratory Rate 41 H 27 H 32 H Blood Pressure 115/69 120/83 Pulse Oximetry 95 95 99 Intake & Output 04/16/18 04/17/18 04/17/18 18:59 06:59 18:59 Intake Total 1400 / 1400 880 / 880 500 / 500 Output Total 750 / 750 1600 / 1600 Balance 650 / 650 -720 / -720 500 / 500 Weight 88.5 kg Intake: IV 1400 / 1400 400 / 400 500 / 500 Teflaro Inj 600 MG In NS Inj 100 / 100 100 / 100 100 ML @ 100 mls/hr IV.SIG Q12H [facility] Rx#:[id number] Cubicin Inj 1,000 MG In NS Inj 100 / 100 100 / 100 100 ML @ 200 mls/hr IV.SIG Q24H [facility] Rx#:[id number] Zyvox 600 mg Premix 300 ML @ 300 / 300 300 / 300 300 / 300 300 mls/hr IV.SIG Q12H [facility] Rx#: [id number] NS Inj 1,000 ML @ 1000 mls/hr 1000 / 1000 IV.SIG BOLUS [facility] Rx#:[id number] Oral 480 / 480 Output: Urine 750 / 750 1450 / 1450 Chest Tube Drainage 150 / 150 Left 150 / 150 Other: Date of Last Bowel Movement 04/13/18 04/13/18 04/13/18 GENERAL: MBMN Mild sob SKIN: Warm and dry. HEAD: Normocephalic. EYES: No scleral icterus. No injection or drainage. NECK: Supple, trachea midline. No JVD or lymphadenopathy. CARDIOVASCULAR: Regular rate and rhythm without murmurs, gallops, or rubs. RESPIRATORY: Breath sounds equal bilaterally. No accessory muscle use. Scattered rales. Left chest tube to suction GASTROINTESTINAL: Abdomen soft, non-tender, nondistended. MUSCULOSKELETAL: No cyanosis, or edema. BACK: Nontender without obvious deformity. No CVA tenderness. - Urinary Catheter Management Indwelling Urethral Catheter Cath placed during this visit: yes, but has since been removed by the nurse Reason for continuing: Acute urinary retention Insertion date: 04/05/18 Insertion time: 23:00 Removal date: 04/12/18 Removal time: 08:30 Condom Cath placed during this visit: no Reason for continuing: Acute urinary retention Straight Cath placed during this visit: yes Reason for continuing: Acute urinary retention Insertion date: 04/08/18 Insertion time: 18:00 Assessment and Plan - Plan IMPRESSION: 1. MRSA pneumonia. 2. Cavitary pneumonia. 4. Chronic obstructive pulmonary disease. 5. Hypotension. 6. Left pneumothorax, status post chest tube. 7. Nicotine use. PLAN: Cont Abx per ID Ceftaroline, Zyvox, Daptomycin Aerosol nebs Supplement 02 SQ lovenox Chest tube to suction Encourage to use Acapella
--- NOTE | 2018-04-17 19:47 | P.PNID ---
Subjective Remarks: doing so much better today On NC O2 sats are good BP is stable Antibiotics: daptomycin zyvox teflaro added 04/16 Lines: Line sites okay Past Medical History: COPD Allergies/Adverse Reactions: Allergies bee venom protein (honey bee) Allergy (Unknown, Verified 04/05/18 21:12) Edema vancomycin Allergy (Verified 04/05/18 23:33) Anaphylaxis Objective Vital Signs 04/16/18 20:00 04/16/18 20:34 04/16/18 21:00 Temperature 99.1 F Pulse Rate 104 H 107 H 105 H Respiratory Rate 20 16 Blood Pressure 106/79 123/67 Pulse Oximetry 95 96 96 04/16/18 22:00 04/16/18 23:00 04/17/18 00:00 Temperature 99 F Pulse Rate 103 H 95 H 102 H Respiratory Rate 20 Blood Pressure 118/69 114/69 111/66 Pulse Oximetry 97 97 93 L 04/17/18 01:00 04/17/18 02:00 04/17/18 02:05 Temperature Pulse Rate 108 H 91 H 97 H Respiratory Rate Blood Pressure 135/79 124/73 Pulse Oximetry 92 L 98 96 04/17/18 03:00 04/17/18 04:00 04/17/18 04:19 Temperature 98.9 F Pulse Rate 95 H 112 H 106 H Respiratory Rate 20 Blood Pressure 125/77 107/64 Pulse Oximetry 96 90 L 04/17/18 05:00 04/17/18 06:00 04/17/18 06:52 Temperature Pulse Rate 96 H 96 H 88 Respiratory Rate 22 Blood Pressure 102/63 146/76 H Pulse Oximetry 95 94 L 04/17/18 07:00 04/17/18 08:00 04/17/18 09:00 Temperature Pulse Rate 90 96 H 92 H Respiratory Rate Blood Pressure 140/81 130/74 124/71 Pulse Oximetry 96 93 L 85 L 04/17/18 10:00 04/17/18 10:03 04/17/18 11:00 Temperature Pulse Rate 100 H 105 H 87 Respiratory Rate 22 28 H Blood Pressure 108/56 L 105/58 L Pulse Oximetry 96 98 94 L 04/17/18 11:20 04/17/18 12:00 04/17/18 13:00 Temperature 98.6 F Pulse Rate 105 H 104 H Respiratory Rate 29 H 38 H Blood Pressure 120/71 119/69 Pulse Oximetry 94 L 93 L 90 L 04/17/18 14:00 04/17/18 15:00 04/17/18 16:00 Temperature 98.4 F Pulse Rate 101 H 101 H 96 H Respiratory Rate 39 H 37 H 41 H Blood Pressure 109/61 115/82 115/69 Pulse Oximetry 93 L 95 95 04/17/18 17:00 04/17/18 17:32 04/17/18 18:00 Temperature Pulse Rate 84 93 H 96 H Respiratory Rate 27 H 32 H Blood Pressure 120/83 Pulse Oximetry 95 99 04/17/18 19:36 Temperature Pulse Rate 101 H Respiratory Rate 16 Blood Pressure Pulse Oximetry 96 Intake & Output 04/17/18 04/17/18 04/18/18 06:59 18:59 06:59 Intake Total 880 / 880 980 / 980 Output Total 1600 / 1600 1010 / 1010 Balance -720 / -720 -30 / -30 Weight 88.5 kg Intake: IV 400 / 400 500 / 500 Teflaro Inj 600 MG In NS Inj 100 / 100 100 / 100 100 ML @ 100 mls/hr IV.SIG Q12H [facility] Rx#:[id number] Cubicin Inj 1,000 MG In NS Inj 100 / 100 100 ML @ 200 mls/hr IV.SIG Q24H [facility] Rx#:[id number] Zyvox 600 mg Premix 300 ML @ 300 / 300 300 / 300 300 mls/hr IV.SIG Q12H [facility] Rx#: [id number] Oral 480 / 480 480 / 480 Output: Urine 1450 / 1450 Urine Amount (Catheter) 1000 / 1000 Condom 1000 / 1000 Chest Tube Drainage 150 / 150 10 / 10 Left 150 / 150 10 / 10 Other: Date of Last Bowel Movement 04/13/18 04/13/18 # Bowel Movements 0 04/16/18 04:39 Blood - Peripheral Aerobic Blood Culture - Preliminary No growth in 1 day 04/16/18 04:39 Blood - Peripheral Anaerobic Blood Culture - Preliminary No growth in 1 day 04/16/18 04:27 Blood - Peripheral Aerobic Blood Culture - Preliminary No growth in 1 day 04/16/18 04:27 Blood - Peripheral Anaerobic Blood Culture - Preliminary No growth in 1 day 04/12/18 13:55 Blood - Peripheral Aerobic Blood Culture - Final No growth in 5 days 04/12/18 13:55 Blood - Peripheral Anaerobic Blood Culture - Final No growth in 5 days 04/12/18 13:47 Blood - Peripheral Aerobic Blood Culture - Final No growth in 5 days 04/12/18 13:47 Blood - Peripheral Anaerobic Blood Culture - Final No growth in 5 days 04/10/18 11:42 Blood - Peripheral Aerobic Blood Culture - Final No growth in 5 days 04/10/18 11:42 Blood - Peripheral Anaerobic Blood Culture - Final S. aureus MRSA Lab - Hematology Results 04/16/18 04/17/18 04:27 03:15 WBC 13.4 H 16.7 H RBC 4.61 4.12 L Hgb 13.4 12.2 L Hct 41.1 36.5 L MCV 89.1 88.5 MCH 29.2 29.5 MCHC 32.7 33.3 RDW 14.3 14.2 Plt Count 199 207 MPV 9.5 9.8 Neut % (Auto) 94.0 H 93.7 H Lymph % (Auto) 3.0 L 2.6 L [place] % (Auto) 2.9 3.6 Eos % (Auto) 0.0 0.0 Baso % (Auto) 0.1 0.1 Neut # (Auto) 12.6 H 15.6 H Lymph # (Auto) 0.4 L 0.4 L [place] # (Auto) 0.4 0.6 Eos # (Auto) 0.0 0.0 Baso # (Auto) 0.0 0.0 WBC Differential . . Differential Comment Auto diff final Auto diff final Lab - Chemistry Results 04/15/18 04/16/18 04/16/18 23:39 00:21 04:27 Sodium 138 Potassium 3.8 Chloride 97 L Carbon Dioxide 34.2 H Anion Gap 7 BUN 29 H Creatinine 0.52 L Estimated GFR Greater than 89 POC Glucose 112 H Random Glucose 117 H Lactic Acid Calcium 8.5 Phosphorus 3.0 D Total Bilirubin 1.2 H AST 34 ALT 81 H Alkaline Phosphatase 63 Total Protein 6.1 L Albumin 2.4 L 04/16/18 04/16/18 04/16/18 05:23 11:57 17:37 Sodium Potassium Chloride Carbon Dioxide Anion Gap BUN Creatinine Estimated GFR POC Glucose 112 H 168 H 133 H Random Glucose Lactic Acid Calcium Phosphorus Total Bilirubin AST ALT Alkaline Phosphatase Total Protein Albumin 04/16/18 04/16/18 04/17/18 20:40 23:33 03:15 Sodium 136 Potassium 4.0 Chloride 100 Carbon Dioxide 29.9 Anion Gap 6 BUN 25 H Creatinine 0.51 L Estimated GFR Greater than 89 POC Glucose 121 H Random Glucose 132 H Lactic Acid 2.0 Calcium 8.1 L Phosphorus Total Bilirubin 0.8 AST 23 ALT 62 Alkaline Phosphatase 54 Total Protein 5.7 L Albumin 2.2 L 04/17/18 04/17/18 04/17/18 05:51 12:05 18:12 Sodium Potassium Chloride Carbon Dioxide Anion Gap BUN Creatinine Estimated GFR POC Glucose 113 H 111 H 100 Random Glucose Lactic Acid Calcium Phosphorus Total Bilirubin AST ALT Alkaline Phosphatase Total Protein Albumin Imaging: ITS Impressions Face CT 04/06/18 00:00 CONCLUSION: 1. Small focal area of soft tissue swelling involving the lateral orbital margin on the left. No abscess. Abdomen/Pelvis CT 04/10/18 00:00 CONCLUSION: 1. Findings in the patient's chest discussed on the patient's chest CT. 2. Left renal stone without hydronephrosis. 3. Slight AAA. 4. Possible gallstones within the gallbladder. 5. There is slight fluid within the peritoneal cavity in the pelvis and within left perinephric space and stranding densities involving the Gerota's fascia on the left side. The exact etiology is not certain could be inflammatory, and there is no hydronephrosis. Head MRI 04/12/18 00:00 CONCLUSION: 1. Some chronic changes with mild cortical and central atrophy. Minimal periventricular and scattered deep white matter tract areas of small vessel ischemic demyelination. 2. Some fluid or secretions identified in the dependent portion of the nasopharynx. 3. Otherwise negative. No findings of intracranial mass lesion/abscess. Lumbar Spine MRI 04/12/18 00:00 CONCLUSION: 1. No evidence of epidural abscess. 2. Grade 1 anterolisthesis at L5-S1 with associated discogenic degenerative changes and bilateral pars defects. There is significant bilateral bony neural foraminal stenosis with bilateral neural impingement. 3. Asymmetric ligamentum flavum hypertrophy on the right side at the L4-5 level flattens the dorsal lateral aspect of the thecal sac. Neural foramen remain patent. 4. Suggestion of distended urinary bladder, incompletely imaged in the field-of -view. Thoracic Spine MRI 04/12/18 00:00 CONCLUSION: 1. Small bilateral pleural effusions. 2. Spinal canal is widely patent throughout without cord compromise. No findings of a paravertebral abscess. Abdomen X-Ray 04/12/18 09:42 CONCLUSION: No evidence of ileus. Gallium Scan Nuclear Medicine 04/13/18 00:00 CONCLUSION: 1. There is abnormal uptake in the lungs corresponding to cavitary lesions probably lung abscesses and areas of consolidation seen on the patient's prior chest CT. Chest CT 04/16/18 10:15 CONCLUSION: 1. A 23 mm left sided pneumothorax is identified. 2. Multiple cavitary lesions are again noted and slightly worse in appearance than on the previous examination. 3. Consolidation of the right upper lobe is again noted and [demonstrates] worsening cavitation. 4. Increased cavitation of the large left upper lobe lesion also. 5. Small partially loculated pleural effusions are noted. 6. Bibasilar alveolar consolidations are noted posteriorly consistent with probable atelectasis. 7. Tiny pericardial effusion is noted. 8. Degenerative changes are noted throughout the thoracic and upper lumbar spine. Chest X-Ray 04/17/18 07:00 CONCLUSION: 1. Very small left apical pneumothorax, slightly decreased from the prior study. 2. Left-sided chest tube remains in place. 3. No change in bilateral pulmonary opacities. Physical Exam: GENERAL: NAD comfortable SKIN: Warm and dry. No rash HEAD: Atraumatic. Normocephalic. EYES: Pupils equal and round. No scleral icterus. No injection or drainage. ENT: No nasal bleeding or discharge. Mucous membranes pink and moist. NECK: Trachea midline. No JVD. CARDIOVASCULAR: Regular rate and rhythm. RESPIRATORY: No accessory muscle use. + few rhonchi to auscultation. Breath sounds equal bilaterally. L sided CT in place GASTROINTESTINAL: Abdomen soft, non-tender, nondistended. MUSCULOSKELETAL: Extremities without clubbing, mi.ld toes cyanosis no significant edema. 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
[2018-04-17] MEDS: Enoxaparin Inj 40 MG/0.4 ML Syringe SQ SCH (23:32)
[2018-04-18] MEDS: Oral Hygiene Kit OROPHARYNG SCH ×3 (04:49→16:00)
[2018-04-18] MEDS: Artificial Tears Opth Drops 15 ML Bottle EACH EYE SCH ×3 (06:11→22:06)
[2018-04-18] MEDS: Insulin NovoLIN Regular Correctional Sugar Inj SQ SCH ×3 (06:11→20:00)
[2018-04-18] MEDS: Chlorhexidine 0.12% Oral Kit 15 ML UDC OROPHARYNG SCH ×2 (08:02→22:05)
[2018-04-18] MEDS: Docusate Sodium 100 MG Capsule PO SCH ×2 (09:02→22:05)
[2018-04-18] MEDS: Famotidine PF Inj 20 MG/2 ML Vial IV.PUSH SCH ×3 (09:03→22:14)
[2018-04-18] MEDS: Sodium Chloride 0.9% 2 ML Flush BID IV.FLUSH SCH ×2 (09:03→22:05)
--- NOTE | 2018-04-18 09:24 | P.PNPL ---
Subjective Interval history: Patient is lying in bed in NAD. On room air oxygen. Left CT in place. No air leak. Physical Exam Vital signs: Vital Signs 04/17/18 10:00 04/17/18 10:03 04/17/18 11:00 Temperature Pulse Rate 100 H 105 H 87 Respiratory Rate 22 28 H Blood Pressure 108/56 L 105/58 L Pulse Oximetry 96 98 94 L 04/17/18 11:20 04/17/18 12:00 04/17/18 13:00 Temperature 98.6 F Pulse Rate 105 H 104 H Respiratory Rate 29 H 38 H Blood Pressure 120/71 119/69 Pulse Oximetry 94 L 93 L 90 L 04/17/18 14:00 04/17/18 15:00 04/17/18 16:00 Temperature 98.4 F Pulse Rate 101 H 101 H 96 H Respiratory Rate 39 H 37 H 41 H Blood Pressure 109/61 115/82 115/69 Pulse Oximetry 93 L 95 95 04/17/18 17:00 04/17/18 17:32 04/17/18 18:00 Temperature Pulse Rate 84 93 H 96 H Respiratory Rate 27 H 32 H Blood Pressure 120/83 Pulse Oximetry 95 99 04/17/18 19:00 04/17/18 19:36 04/17/18 19:52 Temperature Pulse Rate 106 H 101 H 103 H Respiratory Rate 37 H 16 41 H Blood Pressure 107/65 Pulse Oximetry 96 93 L 04/17/18 20:00 04/17/18 21:00 04/17/18 22:00 Temperature 98.8 F Pulse Rate 104 H 93 H 100 H Respiratory Rate 41 H 36 H 35 H Blood Pressure 109/69 99/70 L 108/67 Pulse Oximetry 95 97 98 04/17/18 23:00 04/17/18 23:34 04/18/18 00:00 Temperature 98.6 F Pulse Rate 99 H 102 H 105 H Respiratory Rate 33 H 20 7 L Blood Pressure 124/71 95/50 L Pulse Oximetry 93 L 91 L 04/18/18 01:00 04/18/18 02:00 04/18/18 03:00 Temperature Pulse Rate 107 H 117 H 108 H Respiratory Rate 33 H 35 H 37 H Blood Pressure 100/59 L 99/52 L 103/60 Pulse Oximetry 92 L 94 L 94 L 04/18/18 03:48 04/18/18 04:00 04/18/18 04:13 Temperature 98.8 F Pulse Rate 105 H 111 H 108 H Respiratory Rate 22 31 H 33 H Blood Pressure 124/77 Pulse Oximetry 82 L 04/18/18 06:00 04/18/18 07:00 Temperature Pulse Rate 109 H 106 H Respiratory Rate 18 Blood Pressure Pulse Oximetry 93 L Intake & Output 04/17/18 04/18/18 04/18/18 18:59 06:59 18:59 Intake Total 980 / 980 880 / 880 Output Total 1010 / 1010 1870 / 1870 Balance -30 / -30 -990 / -990 Weight 83.5 kg Intake: IV 500 / 500 400 / 400 Teflaro Inj 600 MG In NS Inj 100 / 100 100 / 100 100 ML @ 100 mls/hr IV.SIG Q12H [facility] Rx#:[id number] Cubicin Inj 1,000 MG In NS Inj 100 / 100 100 ML @ 200 mls/hr IV.SIG Q24H [facility] Rx#:[id number] Zyvox 600 mg Premix 300 ML @ 300 / 300 300 / 300 300 mls/hr IV.SIG Q12H [facility] Rx#: [id number] Oral 480 / 480 480 / 480 Output: Urine Amount (Catheter) 1000 / 1000 1800 / 1800 Condom 1000 / 1000 1800 / 1800 Chest Tube Drainage 70 / 70 Left 70 / 70 Other: Date of Last Bowel Movement 04/13/18 04/13/18 # Bowel Movements 0 0 - Constitutional no acute distress - Routine HEENT Exam Head: Present: normocephalic, atraumatic Eye: Present: EOMI, PERRL, normal accommodation, conjunctivae pink ENT: Present: mucous membranes moist - Routine Neck Exam Present: supple, full ROM, trachea midline - Routine Respiratory Exam Present: CTA bilaterally - Routine Cardiovascular Exam Present: RRR, S1, S2 - Routine Abdominal Exam Present: soft, normoactive bowel sounds - Routine Neurological Exam Present: alert, oriented X3, CN II-XII intact - Urinary Catheter Management Indwelling Urethral Catheter Cath placed during this visit: yes, but has since been removed by the nurse Reason for continuing: Acute urinary retention Insertion date: 04/05/18 Insertion time: 23:00 Removal date: 04/12/18 Removal time: 08:30 Condom Cath placed during this visit: no Reason for continuing: Acute urinary retention Straight Cath placed during this visit: yes Reason for continuing: Acute urinary retention Insertion date: 04/08/18 Insertion time: 18:00 Assessment and Plan - Assessment (1) Anaphylaxis Code(s): T78.2XXA - Anaphylactic shock, unspecified, initial encounter Status : Acute Qualifiers: Encounter type: initial encounter Qualified Code(s): T78.2XXA - Anaphylactic shock, unspecified, initial encounter (2) COPD with acute exacerbation Code(s): J44.1 - Chronic obstructive pulmonary disease with (acute) exacerbation Status: Acute (3) Bilateral pneumonia Code(s): J18.9 - Pneumonia, unspecified organism Status: Acute Qualifiers: Pneumonia type: due to unspecified organism Lung location: unspecified part of lung Qualified Code(s): J18.9 - Pneumonia, unspecified organism (4) Allergic reaction caused by a drug Code(s): T78.40XA - Allergy, unspecified, initial encounter Status: Acute Qualifiers: Encounter type: initial encounter Qualified Code(s): T78.40XA - Allergy, unspecified, initial encounter (5) Acute respiratory failure Code(s): J96.00 - Acute respiratory failure, unspecified whether with hypoxia or hypercapnia Status: Acute Qualifiers: Respiratory failure complication: unspecified whether with hypoxia or hypercapnia Qualified Code(s): J96.00 - Acute respiratory failure, unspecified whether with hypoxia or hypercapnia (6) Severe sepsis Code(s): A41.9 - Sepsis, unspecified organism; R65.20 - Severe sepsis without septic shock Status: Acute (7) Leukocytosis Code(s): D72.829 - Elevated white blood cell count, unspecified Status: Acute Qualifiers: Leukocytosis type: unspecified Qualified Code(s): D72.829 - Elevated white blood cell count, unspecified (8) Hypotension Code(s): I95.9 - Hypotension, unspecified Status: Acute Qualifiers: Hypotension type: unspecified hypotension type Qualified Code(s): I95.9 - Hypotension, unspecified (9) Acute kidney injury Code(s): N17.9 - Acute kidney failure, unspecified Status: Acute (10) Hyponatremia Code(s): E87.1 - Hypo-osmolality and hyponatremia Status: Acute (11) Hyperglycemia Code(s): R73.9 - Hyperglycemia, unspecified Status: Acute (12) History of hypertension Code(s): Z86.79 - Personal history of other diseases of the circulatory system Status: Chronic (13) Tobacco abuse Code(s): Z72.0 - Tobacco use Status: Chronic (14) History of COPD Code(s): Z87.09 - Personal history of other diseases of the respiratory system Status: Chronic - Plan 1)R2sp Insuff 2)MRSA cavitary pneumonia 3)MRSA bacteremia 4) Left PTX s/p CT placement 5)Leukocytosis 6)COPD 8)Nicotine use. PLAN: Oxygen PRN keep sats >92% Bronchodilators Continue CT to suction. No air leak. Check CXR Abx per ID Teflaro, Zyvox, Daptomycin Taper steroids- Decrease Soluemderol 40mg IV daily x 3 days then stop GI/DVT prophylaxis - On Pepcid and Lovenox respectively
--- NOTE | 2018-04-18 09:56 | P.PNCC ---
Subjective Subjective Remarks/Hospital Course: Patient is 72-year-old male with past medical history of COPD, tobacco abuse and hypertension who came to the emergency room for shortness of breath via EMS. On EMS arrival saturation was in the 90s, but patient had significant shortness of breath and dyspnea. Patient received Solu-Medrol 125 mg IV and breathing treatments by EMS and was brought to the emergency department. In the emergency department patient received further breathing treatments and chest x-ray showed patchy infiltrate on bilateral lung fitzgerald. Initially maintaining oxygen saturation with nasal cannula. Initial blood pressure was 85 /65, improved with normal saline boluses. WBC count was 17.1. Patient was deemed septic from pneumonia and patient was ordered to receive vancomycin and Zosyn. While receiving vancomycin patient acutely decompensated became extremely short of breath and developed erythematous maculopapular rash involving face torso armpits and groin region. Emergently intubated and placed on mechanical ventilation by the ED physician. Received IV 50 mg Benadryl. Critical care medicine was requested to admit the patient. I evaluated the patient immediately in the emergency department. Patient is intubated on Versed and fentanyl infusion however he is very asynchronous with the vent triggering ventilator alarms. Severe bilateral expiratory wheezing heard on auscultation. He has extensive skin rash predominantly face forehead torso armpit and groins. Appears like patient had anaphylactic reaction to vancomycin complicated by COPD exacerbation and pneumonia. I have ordered additional Solu-Medrol 100 mg x1 scheduled Benadryl and famotidine, antibiotics with cefepime and Levaquin. Increase Versed infusion, add propofol and use neuromuscular paralysis as needed. Will request pharmacy to add vancomycin to allergy. ED physician Dr. Slater had noticed that patient had some swelling on the left side of his face on arrival, however the skin rash after vancomycin was started was new. Patient remains hypotensive has received 2 L of normal saline in the emergency department and no significant urine output. I have ordered additional 2 L normal saline bolus and maintenance fluid at 84 mL/h. Use Levophed as needed to keep map above 65 Subjective 04/06: Off norepinephrine drip. Currently resting in bed in no acute distress on midazolam and fentanyl drips. Start tube feeding today. 04/07: Remains sedated, intubated on mechanical ventilation. Blood cultures growing MRSA 04/08: remains sedated and intubated. repeat cultures still growing MRSA 2/4 cultures. likely need to repeat BCx either today or tomorrow. agree with narrowing spectrum abx. performed DEEDEE at ID recommendation (need to r/o endocarditis), but no evidence of vegetations. remains hypoxic. off vasopressors today. 04/09: adequate auto-diuresis overnight. off vasopressors. on sedation vacation. hypoxia improving. 04/10 Patient remains intubated and sedated with Fentanyl infusion. Became tachycardic and tachypneic overnight requiring increase sedation. Afebrile. 04/11 Patient is intubated and sedated. Afebrile. 04/12 Patient remains intubated and sedated with Diprivan and Fentanyl infusion, Afebrile. 04/13: Sedated, easily arousable, orally intubated on mechanical ventilation. 04/14 Patient was extubated yesterday. Afebrile. 04/15 Patient is lying in bed in NAD. On 3L oxygen. Awake and alert. 04/16 Patient is on partial rebreather. Afebrile. Awake and alert. 04/17: Left-sided chest tube placed for pneumothorax yesterday. On nasal cannula currently. Awake and alert. Appears comfortable. No air leak noted in Pleur-evac 04/18: Remains on nasal cannula. No air leak noted from left-sided chest tube. Objective Vital Signs / I&O: Vital Signs 04/17/18 10:00 04/17/18 10:03 04/17/18 11:00 Temperature Pulse Rate 100 H 105 H 87 Respiratory Rate 22 28 H Blood Pressure 108/56 L 105/58 L Pulse Oximetry 96 98 94 L 04/17/18 11:20 04/17/18 12:00 04/17/18 13:00 Temperature 98.6 F Pulse Rate 105 H 104 H Respiratory Rate 29 H 38 H Blood Pressure 120/71 119/69 Pulse Oximetry 94 L 93 L 90 L 04/17/18 14:00 04/17/18 15:00 04/17/18 16:00 Temperature 98.4 F Pulse Rate 101 H 101 H 96 H Respiratory Rate 39 H 37 H 41 H Blood Pressure 109/61 115/82 115/69 Pulse Oximetry 93 L 95 95 04/17/18 17:00 04/17/18 17:32 04/17/18 18:00 Temperature Pulse Rate 84 93 H 96 H Respiratory Rate 27 H 32 H Blood Pressure 120/83 Pulse Oximetry 95 99 04/17/18 19:00 04/17/18 19:36 04/17/18 19:52 Temperature Pulse Rate 106 H 101 H 103 H Respiratory Rate 37 H 16 41 H Blood Pressure 107/65 Pulse Oximetry 96 93 L 04/17/18 20:00 04/17/18 21:00 04/17/18 22:00 Temperature 98.8 F Pulse Rate 104 H 93 H 100 H Respiratory Rate 41 H 36 H 35 H Blood Pressure 109/69 99/70 L 108/67 Pulse Oximetry 95 97 98 04/17/18 23:00 04/17/18 23:34 04/18/18 00:00 Temperature 98.6 F Pulse Rate 99 H 102 H 105 H Respiratory Rate 33 H 20 7 L Blood Pressure 124/71 95/50 L Pulse Oximetry 93 L 91 L 04/18/18 01:00 04/18/18 02:00 04/18/18 03:00 Temperature Pulse Rate 107 H 117 H 108 H Respiratory Rate 33 H 35 H 37 H Blood Pressure 100/59 L 99/52 L 103/60 Pulse Oximetry 92 L 94 L 94 L 04/18/18 03:48 04/18/18 04:00 04/18/18 04:13 Temperature 98.8 F Pulse Rate 105 H 111 H 108 H Respiratory Rate 22 31 H 33 H Blood Pressure 124/77 Pulse Oximetry 82 L 04/18/18 06:00 04/18/18 07:00 Temperature Pulse Rate 109 H 106 H Respiratory Rate 18 Blood Pressure Pulse Oximetry 93 L Intake & Output 04/17/18 04/18/18 04/18/18 18:59 06:59 18:59 Intake Total 980 / 980 880 / 880 Output Total 1010 / 1010 1870 / 1870 Balance -30 / -30 -990 / -990 Weight 83.5 kg Intake: IV 500 / 500 400 / 400 Teflaro Inj 600 MG In NS Inj 100 / 100 100 / 100 100 ML @ 100 mls/hr IV.SIG Q12H [facility] Rx#:[id number] Cubicin Inj 1,000 MG In NS Inj 100 / 100 100 ML @ 200 mls/hr IV.SIG Q24H [facility] Rx#:[id number] Zyvox 600 mg Premix 300 ML @ 300 / 300 300 / 300 300 mls/hr IV.SIG Q12H [facility] Rx#: [id number] Oral 480 / 480 480 / 480 Output: Urine Amount (Catheter) 1000 / 1000 1800 / 1800 Condom 1000 / 1000 1800 / 1800 Chest Tube Drainage 70 / 70 Left 70 / 70 Other: Date of Last Bowel Movement 04/13/18 04/13/18 # Bowel Movements 0 0 Result Diagrams: 04/17/18 03:15 04/17/18 03:15 Objective Remarks: GENERAL: Patient is lying in bed in NAD, on nasal cannula SKIN: Warm and dry. HEAD: Atraumatic. Normocephalic. EYES: Pupils equal and round. No scleral icterus. No injection or drainage. ENT: No nasal bleeding or discharge. Mucous membranes pink and moist. NECK: Trachea midline. No JVD. CARDIOVASCULAR: Regular rate and rhythm. sinus. RESPIRATORY: No accessory muscle use. equal chest rise. Scattered rhonchi bilaterally. Left-sided chest tube in place. No air leak noted GASTROINTESTINAL: Abdomen soft, non-tender, nondistended. no guarding. MUSCULOSKELETAL: Extremities without clubbing, cyanosis, or edema. No obvious deformities. NEUROLOGICAL: Awake and alert Assessment and Plan - Problem List (1) Anaphylaxis Code(s): T78.2XXA - Anaphylactic shock, unspecified, initial encounter Status : Acute (2) COPD with acute exacerbation Code(s): J44.1 - Chronic obstructive pulmonary disease with (acute) exacerbation Status: Acute (3) Bilateral pneumonia Code(s): J18.9 - Pneumonia, unspecified organism Status: Acute (4) Allergic reaction caused by a drug Code(s): T78.40XA - Allergy, unspecified, initial encounter Status: Acute (5) Acute respiratory failure Code(s): J96.00 - Acute respiratory failure, unspecified whether with hypoxia or hypercapnia Status: Acute (6) Severe sepsis Code(s): A41.9 - Sepsis, unspecified organism; R65.20 - Severe sepsis without septic shock Status: Acute (7) Leukocytosis Code(s): D72.829 - Elevated white blood cell count, unspecified Status: Acute (8) Hypotension Code(s): I95.9 - Hypotension, unspecified Status: Acute (9) Acute kidney injury Code(s): N17.9 - Acute kidney failure, unspecified Status: Acute (10) Hyponatremia Code(s): E87.1 - Hypo-osmolality and hyponatremia Status: Acute (11) Hyperglycemia Code(s): R73.9 - Hyperglycemia, unspecified Status: Acute (12) History of hypertension Code(s): Z86.79 - Personal history of other diseases of the circulatory system Status: Chronic (13) Tobacco abuse Code(s): Z72.0 - Tobacco use Status: Chronic (14) History of COPD Code(s): Z87.09 - Personal history of other diseases of the respiratory system Status: Chronic - Assessment and Plan Plan: NEURO/Psych: Acute metabolic encephalopathy..improving - Awake and alert . Monitor neuro status. Avoid sedatives -CT face revealed left orbital swelling/lateral. MRI brain: Some chronic changes with mild cortical and central atrophy. Minimal periventricular and scattered deep white matter tract areas of small vessel ischemic demyelination. No findings of intracranial mass lesion/abscess. RESP: Acute hypoxic respiratory failure- slowly improving Anaphylactic reaction to vancomycin Community acquired MRSA pneumonia Acute COPD exacerbation Bilateral pneumonia Coronary artery calcification Left lower lobe 1.5 cm pulmonary nodule. Outpatient PET scan -Extubated 04/13 -Continue with oxygen keep sats >92% -Albuterol/ipratropium aerosols every 4 hours with albuterol aerosols every 2 hours as needed dyspnea CT chest ordered 04/16 showed:: A 23 mm left sided pneumothorax is identified. Multiple cavitary lesions are again noted and slightly worse in appearance than on the previous examination. Consolidation of the right upper lobe is again noted and [demonstrates] worsening cavitation. Increased cavitation of the large left upper lobe lesion also. Small partially loculated pleural effusions are noted. Bibasilar alveolar consolidations are noted posteriorly consistent with probable atelectasis -A [address] tube placed on left . -On Solumederol 40mg IV Q12 -Vancomycin added to allergy -nicotine patch 7 mg daily. - Check CXR CV: History of hypertension septic shock- resolved Monitor HR and BP keep MAP>65mmHg. On Cardizem 60mg Q6, Lactic acid 1.9 on 04/05 GI: Hypoalbuminemia Acute protein calorie malnutrition - moderate On Mechanical soft diet per Speech IV famotidine for GI prophylaxis/ -Docusate sodium/senna 1 tablet twice daily for bowel regimen -04/12 KUB abdomen: No ileus -Bowel regimen with Colace, Senna and Lactulose Renal/FEN/: Acute kidney injury- improving. Acute urinary retention Hypernatremia -Monitor renal function, I/O's,. Electrolytes replacement per protocol. ID: Septic shock- resolved Multifocal pneumonia MRSA bacteremia on 04/05, 04/07 MRSA pneumonia -Continue abx,( Zyvox and Daptomycin) ID is following. Monitor CK. ID added Teflaro on 04/17 - BC 04/05,04/07: MRSA, follow up BC from 04/09 MRSA, 04/10 BC: MRSA. -BC 04/12: NGTD -Sputum cx 04/06, 04/10: MRSA , - DEEDEE 04/08 without vegetations, normal EF -Gallium scan: There is abnormal uptake in the lungs corresponding to cavitary lesions probably lung abscesses and areas of consolidation seen on the patient' s prior chest CT. -MRI T-L spine: No abscess HEME: -Monitor CBC, coags ENDO: Hyperglycemia -Electrolyte replacement per protocol -Sliding scale insulin Accu-Cheks every 6 hours to maintain euglycemia PROPH: -Bilateral lower extremity SCDs. Enoxaparin/famotidine LINES: -Utilize peripheral IVs, Level 3 (1) Anaphylaxis Qualifiers: Encounter type: initial encounter Qualified Code(s): T78.2XXA - Anaphylactic shock, unspecified, initial encounter (3) Bilateral pneumonia Qualifiers: Pneumonia type: due to unspecified organism Lung location: unspecified part of lung Qualified Code(s): J18.9 - Pneumonia, unspecified organism (4) Allergic reaction caused by a drug Qualifiers: Encounter type: initial encounter Qualified Code(s): T78.40XA - Allergy, unspecified, initial encounter (5) Acute respiratory failure Qualifiers: Respiratory failure complication: unspecified whether with hypoxia or hypercapnia Qualified Code(s): J96.00 - Acute respiratory failure, unspecified whether with hypoxia or hypercapnia (7) Leukocytosis Qualifiers: Leukocytosis type: unspecified Qualified Code(s): D72.829 - Elevated white blood cell count, unspecified (8) Hypotension Qualifiers: Hypotension type: unspecified hypotension type Qualified Code(s): I95.9 - Hypotension, unspecified
[2018-04-18] MEDS: MethylPREDNISolone Sod Succinate Inj 40 MG/ML Vial IV.PUSH SCH (11:57)
[2018-04-18] MEDS: DAPTOmycin Inj 1,000 MG in Sodium Chlor 0.9% Inj 100 ML IV.SIG SCH (13:01)
[2018-04-18] MEDS: Sennosides Liq 8.8 MG/5 ML UDC PO SCH (13:03)
[2018-04-18] MEDS: Enoxaparin Inj 40 MG/0.4 ML Syringe SQ SCH (22:06)
[2018-04-19] MEDS: Insulin NovoLIN Regular Correctional Sugar Inj SQ SCH ×4 (01:59→19:05)
[2018-04-19] MEDS: Oral Hygiene Kit OROPHARYNG SCH ×4 (02:00→17:36)
[2018-04-19 05:28] LABS: Baso % (Auto) 0.3 % (0.0-2.0); Eos % (Auto) 0.4 % (0.0-4.0); Hematocrit 40.4 % (39.0-51.0); Hemoglobin 13.1 gm/dL (13.0-17.0); Lymph % (Auto) 8.1 % (9.0-44.0); Mean Corpuscular HGB Conc 32.5 % (32.0-36.0); Mean Corpuscular Hemoglobin 29.3 pg (27.0-34.0); Mean Corpuscular Volume 90.1 fL (80.0-100.0); Mean Platelet Volume 8.5 fL (7.0-11.0); Mono # (Auto) 0.7 th/mm3 (0.0-0.9); Mono % (Auto) 6.1 % (0.0-8.0); Neut % (Auto) 85.1 % (16.0-70.0); Platelet Count 257 th/mm3 (150-450); Red Blood Count 4.48 mil/mm3 (4.50-5.90); Red Cell Distribution Width 14.3 % (11.6-17.2); White Blood Count 11.8 th/mm3 (4.0-11.0)
[2018-04-19 05:59] LABS: Alanine Aminotransferase 64 U/L (12-78); Albumin 2.5 g/dL (3.4-5.0); Anion Gap 6 meq/L (5-15); Aspartate Aminotransferase 24 U/L (15-37); Blood Urea Nitrogen 15 mg/dL (7-18); Calcium 8.3 mg/dL (8.5-10.1); Carbon Dioxide 29.8 meq/L (21.0-32.0); Chloride 100 meq/L (98-107); Glomerular Filtration Rate Greater Than 89 mL/min (>89); Glucose,Random 89 mg/dL (74-106); Potassium 3.6 meq/L (3.5-5.1); Sodium 136 meq/L (136-145)
[2018-04-19 06:01] LABS: Alkaline Phosphatase 61 U/L (45-117); Total Protein 6.2 g/dL (6.4-8.2)
[2018-04-19] MEDS: Artificial Tears Opth Drops 15 ML Bottle EACH EYE SCH ×3 (06:27→21:15)
[2018-04-19] MEDS: Sennosides Liq 8.8 MG/5 ML UDC PO SCH (08:03)
[2018-04-19] MEDS: MethylPREDNISolone Sod Succinate Inj 40 MG/ML Vial IV.PUSH SCH (08:03)
[2018-04-19] MEDS: Chlorhexidine 0.12% Oral Kit 15 ML UDC OROPHARYNG SCH ×2 (08:57→21:14)
--- NOTE | 2018-04-19 09:09 | P.PNPL ---
Subjective Interval history: Patient is lying in bed in NAD. Denies any CP/SOB. Afebrile. Physical Exam Vital signs: Vital Signs 04/18/18 10:00 04/18/18 11:00 04/18/18 12:00 Temperature 98.9 F Pulse Rate 100 H 120 H 112 H Respiratory Rate 30 H 38 H 35 H Blood Pressure 109/72 115/73 109/77 Pulse Oximetry 98 93 L 94 L 04/18/18 13:00 04/18/18 14:00 04/18/18 15:00 Temperature Pulse Rate 99 H 96 H 99 H Respiratory Rate 28 H 34 H 26 H Blood Pressure 108/67 116/77 124/74 Pulse Oximetry 98 99 96 04/18/18 16:00 04/18/18 17:00 04/18/18 18:00 Temperature 98.5 F Pulse Rate 100 H 105 H 105 H Respiratory Rate 35 H 37 H 30 H Blood Pressure 123/74 117/73 113/74 Pulse Oximetry 97 98 99 04/18/18 19:00 04/18/18 20:00 04/18/18 20:24 Temperature 98.4 F Pulse Rate 109 H 108 H 106 H Respiratory Rate 37 H 32 H 16 Blood Pressure 107/64 99/56 L Pulse Oximetry 95 95 96 04/18/18 21:00 04/18/18 22:00 04/18/18 23:00 Temperature Pulse Rate 110 H 109 H 99 H Respiratory Rate 30 H 31 H 26 H Blood Pressure 113/74 116/73 111/69 Pulse Oximetry 96 96 97 04/19/18 00:00 04/19/18 00:03 04/19/18 00:25 Temperature Pulse Rate 104 H 100 H 101 H Respiratory Rate 36 H 31 H 16 Blood Pressure 115/76 Pulse Oximetry 96 97 04/19/18 01:00 04/19/18 02:00 04/19/18 03:00 Temperature Pulse Rate 103 H 102 H 102 H Respiratory Rate 30 H 30 H 30 H Blood Pressure 112/76 122/63 113/68 Pulse Oximetry 97 95 98 04/19/18 04:00 04/19/18 05:00 04/19/18 06:00 Temperature Pulse Rate 109 H 105 H 104 H Respiratory Rate 32 H 29 H 25 H Blood Pressure 116/75 107/70 120/73 Pulse Oximetry 91 L 89 L 99 04/19/18 06:38 04/19/18 07:00 04/19/18 08:35 Temperature Pulse Rate 98 H Respiratory Rate 18 Blood Pressure Pulse Oximetry 100 98 Intake & Output 04/18/18 04/19/18 04/19/18 18:59 06:59 18:59 Intake Total 1100 / 1100 500 / 500 Output Total 1000 / 1000 870 / 870 Balance 100 / 100 -370 / -370 Weight 79.5 kg Intake: IV 400 / 400 300 / 300 Teflaro Inj 600 MG In NS Inj 100 / 100 100 ML @ 100 mls/hr IV.SIG Q12H [facility] Rx#:[id number] Zyvox 600 mg Premix 300 ML @ 300 / 300 300 / 300 300 mls/hr IV.SIG Q12H [facility] Rx#: [id number] Oral 700 / 700 200 / 200 Output: Urine 1000 / 1000 Stool 0 / 0 Urine/Stool Mix 0 / 0 Urine Amount (Catheter) 850 / 850 Condom 850 / 850 Chest Tube Drainage Left Other: # Incontinent Voids 3 Date of Last Bowel Movement 04/18/18 04/18/18 # Bowel Movements 0 # Incontinent Bowel Movements 0 - Constitutional no acute distress - Routine HEENT Exam Head: Present: normocephalic, atraumatic Eye: Present: EOMI, PERRL, normal accommodation, conjunctivae pink ENT: Present: mucous membranes moist - Routine Neck Exam Present: supple, full ROM, trachea midline - Routine Respiratory Exam Present: CTA bilaterally - Routine Cardiovascular Exam Present: RRR, S1, S2 - Routine Abdominal Exam Present: soft, normoactive bowel sounds - Routine Extremities Exam Present: full ROM, pulses intact - Routine Skin Exam Present: intact - Routine Neurological Exam Present: alert, oriented X3, CN II-XII intact - Urinary Catheter Management Indwelling Urethral Catheter Cath placed during this visit: yes, but has since been removed by the nurse Reason for continuing: Acute urinary retention Insertion date: 04/05/18 Insertion time: 23:00 Removal date: 04/12/18 Removal time: 08:30 Condom Cath placed during this visit: no Reason for continuing: Acute urinary retention Straight Cath placed during this visit: yes Reason for continuing: Acute urinary retention Insertion date: 04/08/18 Insertion time: 18:00 Assessment and Plan - Assessment (1) Anaphylaxis Code(s): T78.2XXA - Anaphylactic shock, unspecified, initial encounter Status : Acute Qualifiers: Encounter type: initial encounter Qualified Code(s): T78.2XXA - Anaphylactic shock, unspecified, initial encounter (2) COPD with acute exacerbation Code(s): J44.1 - Chronic obstructive pulmonary disease with (acute) exacerbation Status: Acute (3) Bilateral pneumonia Code(s): J18.9 - Pneumonia, unspecified organism Status: Acute Qualifiers: Pneumonia type: due to unspecified organism Lung location: unspecified part of lung Qualified Code(s): J18.9 - Pneumonia, unspecified organism (4) Allergic reaction caused by a drug Code(s): T78.40XA - Allergy, unspecified, initial encounter Status: Acute Qualifiers: Encounter type: initial encounter Qualified Code(s): T78.40XA - Allergy, unspecified, initial encounter (5) Acute respiratory failure Code(s): J96.00 - Acute respiratory failure, unspecified whether with hypoxia or hypercapnia Status: Acute Qualifiers: Respiratory failure complication: unspecified whether with hypoxia or hypercapnia Qualified Code(s): J96.00 - Acute respiratory failure, unspecified whether with hypoxia or hypercapnia (6) Severe sepsis Code(s): A41.9 - Sepsis, unspecified organism; R65.20 - Severe sepsis without septic shock Status: Acute (7) Leukocytosis Code(s): D72.829 - Elevated white blood cell count, unspecified Status: Acute Qualifiers: Leukocytosis type: unspecified Qualified Code(s): D72.829 - Elevated white blood cell count, unspecified (8) Hypotension Code(s): I95.9 - Hypotension, unspecified Status: Acute Qualifiers: Hypotension type: unspecified hypotension type Qualified Code(s): I95.9 - Hypotension, unspecified (9) Acute kidney injury Code(s): N17.9 - Acute kidney failure, unspecified Status: Acute (10) Hyponatremia Code(s): E87.1 - Hypo-osmolality and hyponatremia Status: Acute (11) Hyperglycemia Code(s): R73.9 - Hyperglycemia, unspecified Status: Acute (12) History of hypertension Code(s): Z86.79 - Personal history of other diseases of the circulatory system Status: Chronic (13) Tobacco abuse Code(s): Z72.0 - Tobacco use Status: Chronic (14) History of COPD Code(s): Z87.09 - Personal history of other diseases of the respiratory system Status: Chronic - Plan 1)R2sp Insuff 2)MRSA cavitary pneumonia 3)MRSA bacteremia 4) Left PTX s/p CT placement 5)Leukocytosis 6)COPD 8)Nicotine use. PLAN: Continue with oxygen keep sats >92% Bronchodilators Continue CT to suction. No air leak. Check CXR in am Abx per ID Teflaro, Zyvox, Daptomycin. WBC is trending down BC 04/12, 04/16: NGTD Taper steroids- Soluemderol 40mg IV daily x 3 days then stop GI/DVT prophylaxis - On Pepcid and Lovenox respectively
--- NOTE | 2018-04-19 09:48 | P.PNCC ---
Subjective Subjective Remarks/Hospital Course: Patient is 72-year-old male with past medical history of COPD, tobacco abuse and hypertension who came to the emergency room for shortness of breath via EMS. On EMS arrival saturation was in the 90s, but patient had significant shortness of breath and dyspnea. Patient received Solu-Medrol 125 mg IV and breathing treatments by EMS and was brought to the emergency department. In the emergency department patient received further breathing treatments and chest x-ray showed patchy infiltrate on bilateral lung fitzgerald. Initially maintaining oxygen saturation with nasal cannula. Initial blood pressure was 85 /65, improved with normal saline boluses. WBC count was 17.1. Patient was deemed septic from pneumonia and patient was ordered to receive vancomycin and Zosyn. While receiving vancomycin patient acutely decompensated became extremely short of breath and developed erythematous maculopapular rash involving face torso armpits and groin region. Emergently intubated and placed on mechanical ventilation by the ED physician. Received IV 50 mg Benadryl. Critical care medicine was requested to admit the patient. I evaluated the patient immediately in the emergency department. Patient is intubated on Versed and fentanyl infusion however he is very asynchronous with the vent triggering ventilator alarms. Severe bilateral expiratory wheezing heard on auscultation. He has extensive skin rash predominantly face forehead torso armpit and groins. Appears like patient had anaphylactic reaction to vancomycin complicated by COPD exacerbation and pneumonia. I have ordered additional Solu-Medrol 100 mg x1 scheduled Benadryl and famotidine, antibiotics with cefepime and Levaquin. Increase Versed infusion, add propofol and use neuromuscular paralysis as needed. Will request pharmacy to add vancomycin to allergy. ED physician Dr. lSater had noticed that patient had some swelling on the left side of his face on arrival, however the skin rash after vancomycin was started was new. Patient remains hypotensive has received 2 L of normal saline in the emergency department and no significant urine output. I have ordered additional 2 L normal saline bolus and maintenance fluid at 84 mL/h. Use Levophed as needed to keep map above 65 Subjective 04/06: Off norepinephrine drip. Currently resting in bed in no acute distress on midazolam and fentanyl drips. Start tube feeding today. 04/07: Remains sedated, intubated on mechanical ventilation. Blood cultures growing MRSA 04/08: remains sedated and intubated. repeat cultures still growing MRSA 2/4 cultures. likely need to repeat BCx either today or tomorrow. agree with narrowing spectrum abx. performed DEEDEE at ID recommendation (need to r/o endocarditis), but no evidence of vegetations. remains hypoxic. off vasopressors today. 04/09: adequate auto-diuresis overnight. off vasopressors. on sedation vacation. hypoxia improving. 04/10 Patient remains intubated and sedated with Fentanyl infusion. Became tachycardic and tachypneic overnight requiring increase sedation. Afebrile. 04/11 Patient is intubated and sedated. Afebrile. 04/12 Patient remains intubated and sedated with Diprivan and Fentanyl infusion, Afebrile. 04/13: Sedated, easily arousable, orally intubated on mechanical ventilation. 04/14 Patient was extubated yesterday. Afebrile. 04/15 Patient is lying in bed in NAD. On 3L oxygen. Awake and alert. 04/16 Patient is on partial rebreather. Afebrile. Awake and alert. 04/17: Left-sided chest tube placed for pneumothorax yesterday. On nasal cannula currently. Awake and alert. Appears comfortable. No air leak noted in Pleur-evac 04/18: Remains on nasal cannula. No air leak noted from left-sided chest tube. 04/19: On 5 L nasal cannula. Chest tube in place, no air leak noted. Resting in bed comfortably, no acute distress. Continues to have productive cough. Objective Vital Signs / I&O: Vital Signs 04/18/18 10:00 04/18/18 11:00 04/18/18 12:00 Temperature 98.9 F Pulse Rate 100 H 120 H 112 H Respiratory Rate 30 H 38 H 35 H Blood Pressure 109/72 115/73 109/77 Pulse Oximetry 98 93 L 94 L 04/18/18 13:00 04/18/18 14:00 04/18/18 15:00 Temperature Pulse Rate 99 H 96 H 99 H Respiratory Rate 28 H 34 H 26 H Blood Pressure 108/67 116/77 124/74 Pulse Oximetry 98 99 96 04/18/18 16:00 04/18/18 17:00 04/18/18 18:00 Temperature 98.5 F Pulse Rate 100 H 105 H 105 H Respiratory Rate 35 H 37 H 30 H Blood Pressure 123/74 117/73 113/74 Pulse Oximetry 97 98 99 04/18/18 19:00 04/18/18 20:00 04/18/18 20:24 Temperature 98.4 F Pulse Rate 109 H 108 H 106 H Respiratory Rate 37 H 32 H 16 Blood Pressure 107/64 99/56 L Pulse Oximetry 95 95 96 04/18/18 21:00 04/18/18 22:00 04/18/18 23:00 Temperature Pulse Rate 110 H 109 H 99 H Respiratory Rate 30 H 31 H 26 H Blood Pressure 113/74 116/73 111/69 Pulse Oximetry 96 96 97 04/19/18 00:00 04/19/18 00:03 04/19/18 00:25 Temperature Pulse Rate 104 H 100 H 101 H Respiratory Rate 36 H 31 H 16 Blood Pressure 115/76 Pulse Oximetry 96 97 04/19/18 01:00 04/19/18 02:00 04/19/18 03:00 Temperature Pulse Rate 103 H 102 H 102 H Respiratory Rate 30 H 30 H 30 H Blood Pressure 112/76 122/63 113/68 Pulse Oximetry 97 95 98 04/19/18 04:00 04/19/18 05:00 04/19/18 06:00 Temperature Pulse Rate 109 H 105 H 104 H Respiratory Rate 32 H 29 H 25 H Blood Pressure 116/75 107/70 120/73 Pulse Oximetry 91 L 89 L 99 04/19/18 06:38 04/19/18 07:00 04/19/18 08:00 Temperature Pulse Rate 98 H Respiratory Rate 18 Blood Pressure Pulse Oximetry 100 96 04/19/18 08:35 Temperature Pulse Rate Respiratory Rate Blood Pressure Pulse Oximetry 98 Intake & Output 04/18/18 04/19/18 04/19/18 18:59 06:59 18:59 Intake Total 1100 / 1100 500 / 500 Output Total 1000 / 1000 870 / 870 Balance 100 / 100 -370 / -370 Weight 79.5 kg Intake: IV 400 / 400 300 / 300 Teflaro Inj 600 MG In NS Inj 100 / 100 100 ML @ 100 mls/hr IV.SIG Q12H [facility] Rx#:[id number] Zyvox 600 mg Premix 300 ML @ 300 / 300 300 / 300 300 mls/hr IV.SIG Q12H [facility] Rx#: [id number] Oral 700 / 700 200 / 200 Output: Urine 1000 / 1000 Stool 0 / 0 Urine/Stool Mix 0 / 0 Urine Amount (Catheter) 850 / 850 Condom 850 / 850 Chest Tube Drainage Left Other: # Incontinent Voids 3 Date of Last Bowel Movement 04/18/18 04/18/18 04/18/18 # Bowel Movements 0 # Incontinent Bowel Movements 0 Result Diagrams: 04/19/18 05:05 04/19/18 05:05 Objective Remarks: GENERAL: Patient is lying in bed in NAD, on nasal cannula SKIN: Warm and dry. HEAD: Atraumatic. Normocephalic. EYES: Pupils equal and round. No scleral icterus. No injection or drainage. ENT: No nasal bleeding or discharge. Mucous membranes pink and moist. NECK: Trachea midline. No JVD. CARDIOVASCULAR: Regular rate and rhythm. sinus. RESPIRATORY: No accessory muscle use. equal chest rise. Scattered rhonchi bilaterally. Left-sided chest tube in place. No air leak noted GASTROINTESTINAL: Abdomen soft, non-tender, nondistended. no guarding. MUSCULOSKELETAL: Extremities without clubbing, cyanosis, or edema. No obvious deformities. NEUROLOGICAL: Awake and alert Assessment and Plan - Problem List (1) Anaphylaxis Code(s): T78.2XXA - Anaphylactic shock, unspecified, initial encounter Status : Acute (2) COPD with acute exacerbation Code(s): J44.1 - Chronic obstructive pulmonary disease with (acute) exacerbation Status: Acute (3) Bilateral pneumonia Code(s): J18.9 - Pneumonia, unspecified organism Status: Acute (4) Allergic reaction caused by a drug Code(s): T78.40XA - Allergy, unspecified, initial encounter Status: Acute (5) Acute respiratory failure Code(s): J96.00 - Acute respiratory failure, unspecified whether with hypoxia or hypercapnia Status: Acute (6) Severe sepsis Code(s): A41.9 - Sepsis, unspecified organism; R65.20 - Severe sepsis without septic shock Status: Acute (7) Leukocytosis Code(s): D72.829 - Elevated white blood cell count, unspecified Status: Acute (8) Hypotension Code(s): I95.9 - Hypotension, unspecified Status: Acute (9) Acute kidney injury Code(s): N17.9 - Acute kidney failure, unspecified Status: Acute (10) Hyponatremia Code(s): E87.1 - Hypo-osmolality and hyponatremia Status: Acute (11) Hyperglycemia Code(s): R73.9 - Hyperglycemia, unspecified Status: Acute (12) History of hypertension Code(s): Z86.79 - Personal history of other diseases of the circulatory system Status: Chronic (13) Tobacco abuse Code(s): Z72.0 - Tobacco use Status: Chronic (14) History of COPD Code(s): Z87.09 - Personal history of other diseases of the respiratory system Status: Chronic - Assessment and Plan Plan: NEURO/Psych: Acute metabolic encephalopathy..improved - Awake and alert . Monitor neuro status. Avoid sedatives -CT face revealed left orbital swelling/lateral. MRI brain: Some chronic changes with mild cortical and central atrophy. Minimal periventricular and scattered deep white matter tract areas of small vessel ischemic demyelination. No findings of intracranial mass lesion/abscess. RESP: Acute hypoxic respiratory failure- slowly improving Anaphylactic reaction to vancomycin Community acquired MRSA pneumonia Acute COPD exacerbation Bilateral pneumonia Coronary artery calcification Left lower lobe 1.5 cm pulmonary nodule. Outpatient PET scan -Extubated 04/13 -Continue with oxygen keep sats >92% -Albuterol/ipratropium aerosols every 4 hours with albuterol aerosols every 2 hours as needed dyspnea CT chest 04/16 showed:: A 23 mm left sided pneumothorax is identified. Multiple cavitary lesions are again noted and slightly worse in appearance than on the previous examination. Consolidation of the right upper lobe is again noted and [demonstrates] worsening cavitation. Increased cavitation of the large left upper lobe lesion also. Small partially loculated pleural effusions are noted. Bibasilar alveolar consolidations are noted posteriorly consistent with probable atelectasis -A [address] tube placed on left . -On Solumederol 40mg IV Q12- taper per pulmonary -Vancomycin added to allergy -nicotine patch 7 mg daily. - Check CXR CV: History of hypertension septic shock- resolved Monitor HR and BP keep MAP>65mmHg. On Cardizem 60mg Q6, Lactic acid 1.9 on 04/05 GI: Hypoalbuminemia Acute protein calorie malnutrition - moderate On Mechanical soft diet per Speech IV famotidine for GI prophylaxis/ -Docusate sodium/senna 1 tablet twice daily for bowel regimen -1/13 KUB abdomen: No ileus -Bowel regimen with Colace, Senna and Lactulose Renal/FEN/: Acute kidney injury- improving. Acute urinary retention Hypernatremia -Monitor renal function, I/O's,. Electrolytes replacement per protocol. ID: Septic shock- resolved Multifocal pneumonia MRSA bacteremia on 04/05, 04/07 MRSA pneumonia -Continue abx,( Zyvox and Daptomycin) ID is following. Monitor CK. ID added Teflaro on 04/17 - BC 04/05,04/07: MRSA, follow up BC from 04/09 MRSA, 04/10 BC: MRSA. -BC 04/12: NGTD -Sputum cx 04/06, 04/10: MRSA , - DEEDEE 04/08 without vegetations, normal EF -Gallium scan: There is abnormal uptake in the lungs corresponding to cavitary lesions probably lung abscesses and areas of consolidation seen on the patient' s prior chest CT. -MRI T-L spine: No abscess HEME: -Monitor CBC, coags ENDO: Hyperglycemia -Electrolyte replacement per protocol -Sliding scale insulin Accu-Cheks every 6 hours to maintain euglycemia PROPH: -Bilateral lower extremity SCDs. Enoxaparin/famotidine LINES: -Utilize peripheral IVs, Level 2 (1) Anaphylaxis Qualifiers: Encounter type: initial encounter Qualified Code(s): T78.2XXA - Anaphylactic shock, unspecified, initial encounter (3) Bilateral pneumonia Qualifiers: Pneumonia type: due to unspecified organism Lung location: unspecified part of lung Qualified Code(s): J18.9 - Pneumonia, unspecified organism (4) Allergic reaction caused by a drug Qualifiers: Encounter type: initial encounter Qualified Code(s): T78.40XA - Allergy, unspecified, initial encounter (5) Acute respiratory failure Qualifiers: Respiratory failure complication: unspecified whether with hypoxia or hypercapnia Qualified Code(s): J96.00 - Acute respiratory failure, unspecified whether with hypoxia or hypercapnia (7) Leukocytosis Qualifiers: Leukocytosis type: unspecified Qualified Code(s): D72.829 - Elevated white blood cell count, unspecified (8) Hypotension Qualifiers: Hypotension type: unspecified hypotension type Qualified Code(s): I95.9 - Hypotension, unspecified
[2018-04-19] MEDS: Docusate Sodium 100 MG Capsule PO SCH ×2 (09:57→21:14)
[2018-04-19] MEDS: Sodium Chloride 0.9% 2 ML Flush BID IV.FLUSH SCH ×2 (09:58→21:14)
[2018-04-19] MEDS: Famotidine PF Inj 20 MG/2 ML Vial IV.PUSH SCH ×2 (09:58→21:15)
[2018-04-19] MEDS: DAPTOmycin Inj 1,000 MG in Sodium Chlor 0.9% Inj 100 ML IV.SIG SCH (15:45)
[2018-04-20] MEDS: Insulin NovoLIN Regular Correctional Sugar Inj SQ SCH ×5 (01:09→23:27)
[2018-04-20] MEDS: Enoxaparin Inj 40 MG/0.4 ML Syringe SQ SCH ×2 (01:09→23:27)
[2018-04-20] MEDS: Oral Hygiene Kit OROPHARYNG SCH ×5 (01:09→23:27)
--- NOTE | 2018-04-20 04:21 | XR ---
EXAM DATE: 04/20/2018 4:16 AM EST AGE/SEX: 72 years / Male INDICATIONS: Shortness of breath, possible pulmonary disease. CLINICAL DATA: This is the patient's subsequent encounter. Patient reports that signs and symptoms h ave been present for 2 weeks and indicates a pain score of Nonresponsive. MEDICAL/SURGICAL HISTORY: Chronic obstructive pulmonary disease. Hypertension. Discectomy, lum bar. COMPARISON: [facility] – [place]ST 1V SINGLE AP, 04/17/2018. . FINDINGS: A single AP view of the chest demonstrates a left thoracostomy tube. No pneumothorax on the current s tudy. Parenchymal consolidation seen involving both lung bases as well as the right upper lobe. These are unchanged. No effusions. Heart is normal in size. Bony structures are unremarkable. CONCLUSION: 1. Persistent and unchanged bilateral pulmonary consolidations. 2. No pneumothorax. Electronically signed by: Leonard Washburn MD Board Certified Radiologist 04/20/2018 4:20 AM EST
[2018-04-20] MEDS: Artificial Tears Opth Drops 15 ML Bottle EACH EYE SCH ×3 (06:29→22:09)
[2018-04-20] MEDS: Morphine Inj 4 MG/ML Vial IV.PUSH PRN ×2 (06:47→17:20)
[2018-04-20] MEDS: Famotidine PF Inj 20 MG/2 ML Vial IV.PUSH SCH ×2 (08:51→22:08)
[2018-04-20] MEDS: MethylPREDNISolone Sod Succinate Inj 40 MG/ML Vial IV.PUSH SCH (08:51)
[2018-04-20] MEDS: Sennosides Liq 8.8 MG/5 ML UDC PO SCH (08:51)
[2018-04-20] MEDS: Sodium Chloride 0.9% 2 ML Flush BID IV.FLUSH SCH ×2 (08:52→22:08)
[2018-04-20] MEDS: Docusate Sodium 100 MG Capsule PO SCH ×2 (08:54→22:08)
[2018-04-20] MEDS: Chlorhexidine 0.12% Oral Kit 15 ML UDC OROPHARYNG SCH ×2 (08:54→22:08)
[2018-04-20 09:38] LABS: Baso % (Auto) 0.5 % (0.0-2.0); Eos # (Auto) 0.1 th/mm3 (0.0-0.4); Eos % (Auto) 0.9 % (0.0-4.0); Hematocrit 39.9 % (39.0-51.0); Hemoglobin 13.1 gm/dL (13.0-17.0); Lymph # (Auto) 0.7 th/mm3 (1.0-4.8); Lymph % (Auto) 6.5 % (9.0-44.0); Mean Corpuscular HGB Conc 32.9 % (32.0-36.0); Mean Corpuscular Hemoglobin 29.9 pg (27.0-34.0); Mean Corpuscular Volume 90.9 fL (80.0-100.0); Mean Platelet Volume 9.1 fL (7.0-11.0); Mono # (Auto) 0.6 th/mm3 (0.0-0.9); Mono % (Auto) 5.5 % (0.0-8.0); Neut % (Auto) 86.6 % (16.0-70.0); Platelet Count 254 th/mm3 (150-450); Red Blood Count 4.39 mil/mm3 (4.50-5.90); Red Cell Distribution Width 14.1 % (11.6-17.2); White Blood Count 10.4 th/mm3 (4.0-11.0)
[2018-04-20] MEDS: DAPTOmycin Inj 1,000 MG in Sodium Chlor 0.9% Inj 100 ML IV.SIG SCH (14:28)
--- NOTE | 2018-04-20 16:12 | P.PNCC ---
Subjective Subjective Remarks/Hospital Course: Patient is 72-year-old male with past medical history of COPD, tobacco abuse and hypertension who came to the emergency room for shortness of breath via EMS. On EMS arrival saturation was in the 90s, but patient had significant shortness of breath and dyspnea. Patient received Solu-Medrol 125 mg IV and breathing treatments by EMS and was brought to the emergency department. In the emergency department patient received further breathing treatments and chest x-ray showed patchy infiltrate on bilateral lung fitzgerald. Initially maintaining oxygen saturation with nasal cannula. Initial blood pressure was 85 /65, improved with normal saline boluses. WBC count was 17.1. Patient was deemed septic from pneumonia and patient was ordered to receive vancomycin and Zosyn. While receiving vancomycin patient acutely decompensated became extremely short of breath and developed erythematous maculopapular rash involving face torso armpits and groin region. Emergently intubated and placed on mechanical ventilation by the ED physician. Received IV 50 mg Benadryl. Critical care medicine was requested to admit the patient. I evaluated the patient immediately in the emergency department. Patient is intubated on Versed and fentanyl infusion however he is very asynchronous with the vent triggering ventilator alarms. Severe bilateral expiratory wheezing heard on auscultation. He has extensive skin rash predominantly face forehead torso armpit and groins. Appears like patient had anaphylactic reaction to vancomycin complicated by COPD exacerbation and pneumonia. I have ordered additional Solu-Medrol 100 mg x1 scheduled Benadryl and famotidine, antibiotics with cefepime and Levaquin. Increase Versed infusion, add propofol and use neuromuscular paralysis as needed. Will request pharmacy to add vancomycin to allergy. ED physician Dr. Slater had noticed that patient had some swelling on the left side of his face on arrival, however the skin rash after vancomycin was started was new. Patient remains hypotensive has received 2 L of normal saline in the emergency department and no significant urine output. I have ordered additional 2 L normal saline bolus and maintenance fluid at 84 mL/h. Use Levophed as needed to keep map above 65 Subjective 04/06: Off norepinephrine drip. Currently resting in bed in no acute distress on midazolam and fentanyl drips. Start tube feeding today. 04/07: Remains sedated, intubated on mechanical ventilation. Blood cultures growing MRSA 04/08: remains sedated and intubated. repeat cultures still growing MRSA 2/4 cultures. likely need to repeat BCx either today or tomorrow. agree with narrowing spectrum abx. performed DEEDEE at ID recommendation (need to r/o endocarditis), but no evidence of vegetations. remains hypoxic. off vasopressors today. 04/09: adequate auto-diuresis overnight. off vasopressors. on sedation vacation. hypoxia improving. 04/10 Patient remains intubated and sedated with Fentanyl infusion. Became tachycardic and tachypneic overnight requiring increase sedation. Afebrile. 04/11 Patient is intubated and sedated. Afebrile. 04/12 Patient remains intubated and sedated with Diprivan and Fentanyl infusion, Afebrile. 04/13: Sedated, easily arousable, orally intubated on mechanical ventilation. 04/14 Patient was extubated yesterday. Afebrile. 04/15 Patient is lying in bed in NAD. On 3L oxygen. Awake and alert. 04/16 Patient is on partial rebreather. Afebrile. Awake and alert. 04/17: Left-sided chest tube placed for pneumothorax yesterday. On nasal cannula currently. Awake and alert. Appears comfortable. No air leak noted in Pleur-evac 04/18: Remains on nasal cannula. No air leak noted from left-sided chest tube. 04/19: On 5 L nasal cannula. Chest tube in place, no air leak noted. Resting in bed comfortably, no acute distress. Continues to have productive cough. 04/20: Remains on nasal cannula. Chest tube in place, no air leak noted. Resting in bed comfortably. Objective Vital Signs / I&O: Vital Signs 04/19/18 17:00 04/19/18 17:01 04/19/18 18:00 Temperature Pulse Rate 101 H 96 H 93 H Respiratory Rate 30 H 30 H 32 H Blood Pressure 100/63 110/71 Pulse Oximetry 87 L 99 98 04/19/18 19:00 04/19/18 20:00 04/19/18 21:00 Temperature 98.9 F Pulse Rate 114 H 109 H 104 H Respiratory Rate 35 H 24 25 H Blood Pressure 110/67 94/55 L 103/58 L Pulse Oximetry 99 98 98 04/19/18 21:30 04/19/18 21:33 04/19/18 22:00 Temperature Pulse Rate 105 H 105 H 104 H Respiratory Rate 29 H 16 31 H Blood Pressure 112/65 100/63 Pulse Oximetry 95 95 100 04/19/18 22:30 04/19/18 23:00 04/19/18 23:30 Temperature Pulse Rate 118 H 104 H 106 H Respiratory Rate 36 H 25 H 34 H Blood Pressure 100/60 98/57 L 108/69 Pulse Oximetry 95 94 L 95 04/20/18 00:00 04/20/18 00:29 04/20/18 00:30 Temperature Pulse Rate 107 H 106 H 106 H Respiratory Rate 37 H 18 22 Blood Pressure 108/74 105/71 Pulse Oximetry 96 96 04/20/18 01:00 04/20/18 01:30 04/20/18 02:00 Temperature Pulse Rate 105 H 105 H 109 H Respiratory Rate 32 H 32 H 25 H Blood Pressure 100/69 106/67 107/64 Pulse Oximetry 96 97 97 04/20/18 02:30 04/20/18 03:00 04/20/18 03:30 Temperature Pulse Rate 103 H 105 H 101 H Respiratory Rate 29 H 30 H 28 H Blood Pressure 114/63 101/66 110/74 Pulse Oximetry 97 97 98 04/20/18 04:00 04/20/18 04:29 04/20/18 04:30 Temperature 98.1 F Pulse Rate 102 H 96 H 96 H Respiratory Rate 28 H 26 H 23 Blood Pressure 111/70 115/77 Pulse Oximetry 95 96 97 04/20/18 05:00 04/20/18 05:30 04/20/18 06:00 Temperature Pulse Rate 107 H 101 H 106 H Respiratory Rate 27 H 28 H 31 H Blood Pressure 98/60 L 100/61 105/59 L Pulse Oximetry 95 04/20/18 06:30 04/20/18 07:00 04/20/18 07:30 Temperature Pulse Rate 109 H 99 H 101 H Respiratory Rate 29 H 26 H 27 H Blood Pressure 126/84 126/80 129/75 Pulse Oximetry 96 97 99 04/20/18 08:00 04/20/18 08:30 04/20/18 09:00 Temperature 97.1 F L Pulse Rate 110 H 93 H 106 H Respiratory Rate 26 H 22 27 H Blood Pressure 125/73 126/68 113/78 Pulse Oximetry 98 96 98 04/20/18 09:30 04/20/18 10:00 04/20/18 10:34 Temperature Pulse Rate 93 H 117 H 108 H Respiratory Rate 29 H 31 H 28 H Blood Pressure 127/81 110/74 Pulse Oximetry 98 97 96 04/20/18 11:00 04/20/18 11:09 04/20/18 11:30 Temperature Pulse Rate 102 H 107 H Respiratory Rate 27 H 28 H Blood Pressure 112/75 117/76 Pulse Oximetry 99 98 96 04/20/18 11:44 04/20/18 12:00 04/20/18 12:30 Temperature 98.6 F Pulse Rate 102 H 109 H 106 H Respiratory Rate 24 31 H 25 H Blood Pressure 116/83 95/65 L Pulse Oximetry 94 L 96 04/20/18 13:00 04/20/18 13:30 04/20/18 14:00 Temperature Pulse Rate 112 H 106 H 107 H Respiratory Rate 22 17 28 H Blood Pressure 100/73 103/68 97/65 L Pulse Oximetry 96 100 100 04/20/18 14:30 04/20/18 15:00 Temperature Pulse Rate 106 H 112 H Respiratory Rate 25 H 23 Blood Pressure 96/66 L 103/75 Pulse Oximetry 100 98 Intake & Output 04/19/18 04/20/18 04/20/18 18:59 06:59 18:59 Intake Total 1150 / 1150 520 / 520 500 / 500 Output Total 1550 / 1550 1180 / 1180 Balance -400 / -400 -660 / -660 500 / 500 Weight 78.5 kg Intake: IV 500 / 500 400 / 400 500 / 500 Teflaro Inj 600 MG In NS Inj 100 / 100 100 / 100 100 / 100 100 ML @ 100 mls/hr IV.SIG Q12H [facility] Rx#:[id number] Cubicin Inj 1,000 MG In NS Inj 100 / 100 100 / 100 100 ML @ 200 mls/hr IV.SIG Q24H [facility] Rx#:[id number] Zyvox 600 mg Premix 300 ML @ 300 / 300 300 / 300 300 / 300 300 mls/hr IV.SIG Q12H [facility] Rx#: [id number] Oral 650 / 650 120 / 120 Output: Urine 1550 / 1550 Stool 0 / 0 Urine/Stool Mix 0 / 0 Urine Amount (Catheter) 1150 / 1150 Condom 1150 / 1150 Chest Tube Drainage 30 / 30 Left Other: Date of Last Bowel Movement 04/19/18 04/19/18 04/19/18 # Bowel Movements 0 # Incontinent Bowel Movements 0 Result Diagrams: 04/20/18 08:47 04/19/18 05:05 Objective Remarks: GENERAL: Patient is lying in bed in NAD, on nasal cannula SKIN: Warm and dry. HEAD: Atraumatic. Normocephalic. EYES: Pupils equal and round. No scleral icterus. No injection or drainage. ENT: No nasal bleeding or discharge. Mucous membranes pink and moist. NECK: Trachea midline. No JVD. CARDIOVASCULAR: Regular rate and rhythm. sinus. RESPIRATORY: No accessory muscle use. equal chest rise. Scattered rhonchi bilaterally. Left-sided chest tube in place. No air leak noted GASTROINTESTINAL: Abdomen soft, non-tender, nondistended. no guarding. MUSCULOSKELETAL: Extremities without clubbing, cyanosis, or edema. No obvious deformities. NEUROLOGICAL: Awake and alert Assessment and Plan - Problem List (1) Anaphylaxis Code(s): T78.2XXA - Anaphylactic shock, unspecified, initial encounter Status : Acute (2) COPD with acute exacerbation Code(s): J44.1 - Chronic obstructive pulmonary disease with (acute) exacerbation Status: Acute (3) Bilateral pneumonia Code(s): J18.9 - Pneumonia, unspecified organism Status: Acute (4) Allergic reaction caused by a drug Code(s): T78.40XA - Allergy, unspecified, initial encounter Status: Acute (5) Acute respiratory failure Code(s): J96.00 - Acute respiratory failure, unspecified whether with hypoxia or hypercapnia Status: Acute (6) Severe sepsis Code(s): A41.9 - Sepsis, unspecified organism; R65.20 - Severe sepsis without septic shock Status: Acute (7) Leukocytosis Code(s): D72.829 - Elevated white blood cell count, unspecified Status: Acute (8) Hypotension Code(s): I95.9 - Hypotension, unspecified Status: Acute (9) Acute kidney injury Code(s): N17.9 - Acute kidney failure, unspecified Status: Acute (10) Hyponatremia Code(s): E87.1 - Hypo-osmolality and hyponatremia Status: Acute (11) Hyperglycemia Code(s): R73.9 - Hyperglycemia, unspecified Status: Acute (12) History of hypertension Code(s): Z86.79 - Personal history of other diseases of the circulatory system Status: Chronic (13) Tobacco abuse Code(s): Z72.0 - Tobacco use Status: Chronic (14) History of COPD Code(s): Z87.09 - Personal history of other diseases of the respiratory system Status: Chronic - Assessment and Plan Plan: NEURO/Psych: Acute metabolic encephalopathy..improved - Awake and alert . Monitor neuro status. Avoid sedatives -CT face revealed left orbital swelling/lateral. MRI brain: Some chronic changes with mild cortical and central atrophy. Minimal periventricular and scattered deep white matter tract areas of small vessel ischemic demyelination. No findings of intracranial mass lesion/abscess. RESP: Acute hypoxic respiratory failure- slowly improving Anaphylactic reaction to vancomycin Community acquired MRSA pneumonia Acute COPD exacerbation Bilateral pneumonia Coronary artery calcification Left lower lobe 1.5 cm pulmonary nodule. Outpatient PET scan -Extubated 04/13 -Continue with oxygen keep sats >92% -Albuterol/ipratropium aerosols every 4 hours with albuterol aerosols every 2 hours as needed dyspnea CT chest 04/16 showed:: A 23 mm left sided pneumothorax is identified. Multiple cavitary lesions are again noted and slightly worse in appearance than on the previous examination. Consolidation of the right upper lobe is again noted and [demonstrates] worsening cavitation. Increased cavitation of the large left upper lobe lesion also. Small partially loculated pleural effusions are noted. Bibasilar alveolar consolidations are noted posteriorly consistent with probable atelectasis -A [address] tube placed on left . -On Solumederol 40mg IV Q12- taper per pulmonary -Vancomycin added to allergy -nicotine patch 7 mg daily. - Check CXR CV: History of hypertension septic shock- resolved Monitor HR and BP keep MAP>65mmHg. On Cardizem 60mg Q6, Lactic acid 1.9 on 04/05 GI: Hypoalbuminemia Acute protein calorie malnutrition - moderate On Mechanical soft diet per Speech IV famotidine for GI prophylaxis/ -Docusate sodium/senna 1 tablet twice daily for bowel regimen -04/12 KUB abdomen: No ileus -Bowel regimen with Colace, Senna and Lactulose Renal/FEN/: Acute kidney injury- improving. Acute urinary retention Hypernatremia -Monitor renal function, I/O's,. Electrolytes replacement per protocol. ID: Septic shock- resolved Multifocal pneumonia MRSA bacteremia on 04/05, 04/07 MRSA pneumonia -Continue abx,( Zyvox and Daptomycin) ID is following. Monitor CK. ID added Teflaro on 04/17 - BC 04/05,04/07: MRSA, follow up BC from 04/09 MRSA, 04/10 BC: MRSA. -BC 04/12: NGTD -Sputum cx 04/06, 04/10: MRSA , - DEEDEE 04/08 without vegetations, normal EF -Gallium scan: There is abnormal uptake in the lungs corresponding to cavitary lesions probably lung abscesses and areas of consolidation seen on the patient' s prior chest CT. -MRI T-L spine: No abscess HEME: -Monitor CBC, coags ENDO: Hyperglycemia -Electrolyte replacement per protocol -Sliding scale insulin Accu-Cheks every 6 hours to maintain euglycemia PROPH: -Bilateral lower extremity SCDs. Enoxaparin/famotidine LINES: -Utilize peripheral IVs, Consult and transfer to hospitalist service for further medical management, critical care will be signing off. (1) Anaphylaxis Qualifiers: Encounter type: initial encounter Qualified Code(s): T78.2XXA - Anaphylactic shock, unspecified, initial encounter (3) Bilateral pneumonia Qualifiers: Pneumonia type: due to unspecified organism Lung location: unspecified part of lung Qualified Code(s): J18.9 - Pneumonia, unspecified organism (4) Allergic reaction caused by a drug Qualifiers: Encounter type: initial encounter Qualified Code(s): T78.40XA - Allergy, unspecified, initial encounter (5) Acute respiratory failure Qualifiers: Respiratory failure complication: unspecified whether with hypoxia or hypercapnia Qualified Code(s): J96.00 - Acute respiratory failure, unspecified whether with hypoxia or hypercapnia (7) Leukocytosis Qualifiers: Leukocytosis type: unspecified Qualified Code(s): D72.829 - Elevated white blood cell count, unspecified (8) Hypotension Qualifiers: Hypotension type: unspecified hypotension type Qualified Code(s): I95.9 - Hypotension, unspecified
--- NOTE | 2018-04-20 16:39 | P.PNPL ---
Subjective Interval history: 72 YOWM with MRSA Pn, cavitary lesion, COPD, Lt ptx Left chest tube to suction On NC mild sob Congested, not bringing up sp No Fever Chest tube no air leak. Physical Exam Vital signs: Vital Signs 04/19/18 17:00 04/19/18 17:01 04/19/18 18:00 Temperature Pulse Rate 101 H 96 H 93 H Respiratory Rate 30 H 30 H 32 H Blood Pressure 100/63 110/71 Pulse Oximetry 87 L 99 98 04/19/18 19:00 04/19/18 20:00 04/19/18 21:00 Temperature 98.9 F Pulse Rate 114 H 109 H 104 H Respiratory Rate 35 H 24 25 H Blood Pressure 110/67 94/55 L 103/58 L Pulse Oximetry 99 98 98 04/19/18 21:30 04/19/18 21:33 04/19/18 22:00 Temperature Pulse Rate 105 H 105 H 104 H Respiratory Rate 29 H 16 31 H Blood Pressure 112/65 100/63 Pulse Oximetry 95 95 100 04/19/18 22:30 04/19/18 23:00 04/19/18 23:30 Temperature Pulse Rate 118 H 104 H 106 H Respiratory Rate 36 H 25 H 34 H Blood Pressure 100/60 98/57 L 108/69 Pulse Oximetry 95 94 L 95 04/20/18 00:00 04/20/18 00:29 04/20/18 00:30 Temperature Pulse Rate 107 H 106 H 106 H Respiratory Rate 37 H 18 22 Blood Pressure 108/74 105/71 Pulse Oximetry 96 96 04/20/18 01:00 04/20/18 01:30 04/20/18 02:00 Temperature Pulse Rate 105 H 105 H 109 H Respiratory Rate 32 H 32 H 25 H Blood Pressure 100/69 106/67 107/64 Pulse Oximetry 96 97 97 04/20/18 02:30 04/20/18 03:00 04/20/18 03:30 Temperature Pulse Rate 103 H 105 H 101 H Respiratory Rate 29 H 30 H 28 H Blood Pressure 114/63 101/66 110/74 Pulse Oximetry 97 97 98 04/20/18 04:00 04/20/18 04:29 04/20/18 04:30 Temperature 98.1 F Pulse Rate 102 H 96 H 96 H Respiratory Rate 28 H 26 H 23 Blood Pressure 111/70 115/77 Pulse Oximetry 95 96 97 04/20/18 05:00 04/20/18 05:30 04/20/18 06:00 Temperature Pulse Rate 107 H 101 H 106 H Respiratory Rate 27 H 28 H 31 H Blood Pressure 98/60 L 100/61 105/59 L Pulse Oximetry 95 04/20/18 06:30 04/20/18 07:00 04/20/18 07:30 Temperature Pulse Rate 109 H 99 H 101 H Respiratory Rate 29 H 26 H 27 H Blood Pressure 126/84 126/80 129/75 Pulse Oximetry 96 97 99 04/20/18 08:00 04/20/18 08:30 04/20/18 09:00 Temperature 97.1 F L Pulse Rate 110 H 93 H 106 H Respiratory Rate 26 H 22 27 H Blood Pressure 125/73 126/68 113/78 Pulse Oximetry 98 96 98 04/20/18 09:30 04/20/18 10:00 04/20/18 10:34 Temperature Pulse Rate 93 H 117 H 108 H Respiratory Rate 29 H 31 H 28 H Blood Pressure 127/81 110/74 Pulse Oximetry 98 97 96 04/20/18 11:00 04/20/18 11:09 04/20/18 11:30 Temperature Pulse Rate 102 H 107 H Respiratory Rate 27 H 28 H Blood Pressure 112/75 117/76 Pulse Oximetry 99 98 96 04/20/18 11:44 04/20/18 12:00 04/20/18 12:30 Temperature 98.6 F Pulse Rate 102 H 109 H 106 H Respiratory Rate 24 31 H 25 H Blood Pressure 116/83 95/65 L Pulse Oximetry 94 L 96 04/20/18 13:00 04/20/18 13:30 04/20/18 14:00 Temperature Pulse Rate 112 H 106 H 107 H Respiratory Rate 22 17 28 H Blood Pressure 100/73 103/68 97/65 L Pulse Oximetry 96 100 100 04/20/18 14:30 04/20/18 15:00 Temperature Pulse Rate 106 H 112 H Respiratory Rate 25 H 23 Blood Pressure 96/66 L 103/75 Pulse Oximetry 100 98 Intake & Output 04/19/18 04/20/18 04/20/18 18:59 06:59 18:59 Intake Total 1150 / 1150 520 / 520 500 / 500 Output Total 1550 / 1550 1180 / 1180 Balance -400 / -400 -660 / -660 500 / 500 Weight 78.5 kg Intake: IV 500 / 500 400 / 400 500 / 500 Teflaro Inj 600 MG In NS Inj 100 / 100 100 / 100 100 / 100 100 ML @ 100 mls/hr IV.SIG Q12H [facility] Rx#:[id number] Cubicin Inj 1,000 MG In NS Inj 100 / 100 100 / 100 100 ML @ 200 mls/hr IV.SIG Q24H [facility] Rx#:[id number] Zyvox 600 mg Premix 300 ML @ 300 / 300 300 / 300 300 / 300 300 mls/hr IV.SIG Q12H [facility] Rx#: [id number] Oral 650 / 650 120 / 120 Output: Urine 1550 / 1550 Stool 0 / 0 Urine/Stool Mix 0 / 0 Urine Amount (Catheter) 1150 / 1150 Condom 1150 / 1150 Chest Tube Drainage Left Other: Date of Last Bowel Movement 04/19/18 04/19/18 04/19/18 # Bowel Movements 0 # Incontinent Bowel Movements 0 GENERAL: MBMn Mild sob SKIN: Warm and dry. HEAD: Normocephalic. EYES: No scleral icterus. No injection or drainage. NECK: Supple, trachea midline. No JVD or lymphadenopathy. CARDIOVASCULAR: Regular rate and rhythm without murmurs, gallops, or rubs. RESPIRATORY: Breath sounds equal bilaterally. No accessory muscle use. Left chest tube on suction. GASTROINTESTINAL: Abdomen soft, non-tender, nondistended. MUSCULOSKELETAL: No cyanosis, or edema. BACK: Nontender without obvious deformity. No CVA tenderness. - Urinary Catheter Management Indwelling Urethral Catheter Cath placed during this visit: yes, but has since been removed by the nurse Reason for continuing: Acute urinary retention Insertion date: 04/05/18 Insertion time: 23:00 Removal date: 04/12/18 Removal time: 08:30 Condom Cath placed during this visit: no Reason for continuing: Acute urinary retention Straight Cath placed during this visit: yes Reason for continuing: Acute urinary retention Insertion date: 04/08/18 Insertion time: 18:00 Assessment and Plan - Plan IMPRESSION: 1. MRSA pneumonia. 2. Cavitary pneumonia. 4. Chronic obstructive pulmonary disease. 5. Hypotension. 6. Left pneumothorax, status post chest tube. 7. Nicotine use. PLAN: Cont Abx per ID Ceftaroline, Zyvox, Daptomycin Aerosol nebs Supplement 02 SQ lovenox Chest tube to suction Encourage to use Acapella
--- NOTE | 2018-04-20 19:39 | P.PNID ---
Subjective Remarks: doing well remains on NC O2 sats are good BP is stable Antibiotics: daptomycin zyvox teflaro added 04/16 Lines: Line sites okay Past Medical History: COPD Allergies/Adverse Reactions: Allergies bee venom protein (honey bee) Allergy (Unknown, Verified 04/05/18 21:12) Edema vancomycin Allergy (Verified 04/05/18 23:33) Anaphylaxis Objective Vital Signs 04/19/18 20:00 04/19/18 21:00 04/19/18 21:30 Temperature 98.9 F Pulse Rate 109 H 104 H 105 H Respiratory Rate 24 25 H 29 H Blood Pressure 94/55 L 103/58 L 112/65 Pulse Oximetry 98 98 95 04/19/18 21:33 04/19/18 22:00 04/19/18 22:30 Temperature Pulse Rate 105 H 104 H 118 H Respiratory Rate 16 31 H 36 H Blood Pressure 100/63 100/60 Pulse Oximetry 95 100 95 04/19/18 23:00 04/19/18 23:30 04/20/18 00:00 Temperature Pulse Rate 104 H 106 H 107 H Respiratory Rate 25 H 34 H 37 H Blood Pressure 98/57 L 108/69 108/74 Pulse Oximetry 94 L 95 96 04/20/18 00:29 04/20/18 00:30 04/20/18 01:00 Temperature Pulse Rate 106 H 106 H 105 H Respiratory Rate 18 22 32 H Blood Pressure 105/71 100/69 Pulse Oximetry 96 96 04/20/18 01:30 04/20/18 02:00 04/20/18 02:30 Temperature Pulse Rate 105 H 109 H 103 H Respiratory Rate 32 H 25 H 29 H Blood Pressure 106/67 107/64 114/63 Pulse Oximetry 97 97 97 04/20/18 03:00 04/20/18 03:30 04/20/18 04:00 Temperature 98.1 F Pulse Rate 105 H 101 H 102 H Respiratory Rate 30 H 28 H 28 H Blood Pressure 101/66 110/74 111/70 Pulse Oximetry 97 98 95 04/20/18 04:29 04/20/18 04:30 04/20/18 05:00 Temperature Pulse Rate 96 H 96 H 107 H Respiratory Rate 26 H 23 27 H Blood Pressure 115/77 98/60 L Pulse Oximetry 96 97 95 04/20/18 05:30 04/20/18 06:00 04/20/18 06:30 Temperature Pulse Rate 101 H 106 H 109 H Respiratory Rate 28 H 31 H 29 H Blood Pressure 100/61 105/59 L 126/84 Pulse Oximetry 96 04/20/18 07:00 04/20/18 07:30 04/20/18 08:00 Temperature 97.1 F L Pulse Rate 99 H 101 H 110 H Respiratory Rate 26 H 27 H 26 H Blood Pressure 126/80 129/75 125/73 Pulse Oximetry 97 99 98 04/20/18 08:30 04/20/18 09:00 04/20/18 09:30 Temperature Pulse Rate 93 H 106 H 93 H Respiratory Rate 22 27 H 29 H Blood Pressure 126/68 113/78 127/81 Pulse Oximetry 96 98 98 04/20/18 10:00 04/20/18 10:34 04/20/18 11:00 Temperature Pulse Rate 117 H 108 H 102 H Respiratory Rate 31 H 28 H 27 H Blood Pressure 110/74 112/75 Pulse Oximetry 97 96 99 04/20/18 11:09 04/20/18 11:30 04/20/18 11:44 Temperature Pulse Rate 107 H 102 H Respiratory Rate 28 H 24 Blood Pressure 117/76 Pulse Oximetry 98 96 04/20/18 12:00 04/20/18 12:30 04/20/18 13:00 Temperature 98.6 F Pulse Rate 109 H 106 H 112 H Respiratory Rate 31 H 25 H 22 Blood Pressure 116/83 95/65 L 100/73 Pulse Oximetry 94 L 96 96 04/20/18 13:30 04/20/18 14:00 04/20/18 14:30 Temperature Pulse Rate 106 H 107 H 106 H Respiratory Rate 17 28 H 25 H Blood Pressure 103/68 97/65 L 96/66 L Pulse Oximetry 100 100 100 04/20/18 15:00 04/20/18 15:30 04/20/18 16:00 Temperature 97.8 F Pulse Rate 112 H 99 H 103 H Respiratory Rate 23 27 H 23 Blood Pressure 103/75 103/66 120/73 Pulse Oximetry 98 98 97 04/20/18 16:30 04/20/18 17:00 04/20/18 17:01 Temperature Pulse Rate 105 H 108 H 108 H Respiratory Rate 27 H 29 H 27 H Blood Pressure 98/59 L 106/74 Pulse Oximetry 99 96 98 04/20/18 17:30 Temperature Pulse Rate 104 H Respiratory Rate 26 H Blood Pressure 95/60 L Pulse Oximetry 99 Intake & Output 04/20/18 04/20/18 04/21/18 06:59 18:59 06:59 Intake Total 520 / 520 980 / 980 Output Total 1180 / 1180 1520 / 1520 Balance -660 / -660 -540 / -540 Weight 78.5 kg Intake: IV 400 / 400 500 / 500 Teflaro Inj 600 MG In NS Inj 100 / 100 100 / 100 100 ML @ 100 mls/hr IV.SIG Q12H [facility] Rx#:[id number] Cubicin Inj 1,000 MG In NS Inj 100 / 100 100 ML @ 200 mls/hr IV.SIG Q24H [facility] Rx#:[id number] Zyvox 600 mg Premix 300 ML @ 300 / 300 300 / 300 300 mls/hr IV.SIG Q12H [facility] Rx#: [id number] Oral 120 / 120 480 / 480 Output: Urine 1500 / 1500 Stool 0 / 0 Urine/Stool Mix 0 / 0 Urine Amount (Catheter) 1150 / 1150 Condom 1150 / 1150 Chest Tube Drainage Left Other: Date of Last Bowel Movement 04/19/18 04/19/18 # Bowel Movements 0 0 # Incontinent Bowel Movements 0 04/16/18 04:39 Blood - Peripheral Aerobic Blood Culture - Preliminary No growth in 4 days 04/16/18 04:39 Blood - Peripheral Anaerobic Blood Culture - Preliminary No growth in 4 days 04/16/18 04:27 Blood - Peripheral Aerobic Blood Culture - Preliminary No growth in 4 days 04/16/18 04:27 Blood - Peripheral Anaerobic Blood Culture - Preliminary No growth in 4 days Lab - Hematology Results 04/19/18 04/20/18 05:05 08:47 WBC 11.8 H 10.4 RBC 4.48 L 4.39 L Hgb 13.1 13.1 Hct 40.4 39.9 MCV 90.1 90.9 MCH 29.3 29.9 MCHC 32.5 32.9 RDW 14.3 14.1 Plt Count 257 254 MPV 8.5 9.1 Neut % (Auto) 85.1 H 86.6 H Lymph % (Auto) 8.1 L 6.5 L George % (Auto) 6.1 5.5 Eos % (Auto) 0.4 0.9 Baso % (Auto) 0.3 0.5 Neut # (Auto) 10.0 H 9.0 H Lymph # (Auto) 1.0 0.7 L George # (Auto) 0.7 0.6 Eos # (Auto) 0.0 0.1 Baso # (Auto) 0.0 0.0 WBC Differential . . Differential Comment Auto diff final Auto diff final Lab - Chemistry Results 04/19/18 04/19/18 00:22 05:05 Sodium 136 Potassium 3.6 Chloride 100 Carbon Dioxide 29.8 Anion Gap 6 BUN 15 Creatinine 0.57 L Estimated GFR Greater than 89 POC Glucose 108 Random Glucose 89 Calcium 8.3 L Total Bilirubin 0.8 AST 24 ALT 64 Alkaline Phosphatase 61 Total Protein 6.2 L Albumin 2.5 L Imaging: ITS Impressions Face CT 04/06/18 00:00 CONCLUSION: 1. Small focal area of soft tissue swelling involving the lateral orbital margin on the left. No abscess. Abdomen/Pelvis CT 04/10/18 00:00 CONCLUSION: 1. Findings in the patient's chest discussed on the patient's chest CT. 2. Left renal stone without hydronephrosis. 3. Slight AAA. 4. Possible gallstones within the gallbladder. 5. There is slight fluid within the peritoneal cavity in the pelvis and within left perinephric space and stranding densities involving the Gerota's fascia on the left side. The exact etiology is not certain could be inflammatory, and there is no hydronephrosis. Head MRI 04/12/18 00:00 CONCLUSION: 1. Some chronic changes with mild cortical and central atrophy. Minimal periventricular and scattered deep white matter tract areas of small vessel ischemic demyelination. 2. Some fluid or secretions identified in the dependent portion of the nasopharynx. 3. Otherwise negative. No findings of intracranial mass lesion/abscess. Lumbar Spine MRI 04/12/18 00:00 CONCLUSION: 1. No evidence of epidural abscess. 2. Grade 1 anterolisthesis at L5-S1 with associated discogenic degenerative changes and bilateral pars defects. There is significant bilateral bony neural foraminal stenosis with bilateral neural impingement. 3. Asymmetric ligamentum flavum hypertrophy on the right side at the L4-5 level flattens the dorsal lateral aspect of the thecal sac. Neural foramen remain patent. 4. Suggestion of distended urinary bladder, incompletely imaged in the field-of -view. Thoracic Spine MRI 04/12/18 00:00 CONCLUSION: 1. Small bilateral pleural effusions. 2. Spinal canal is widely patent throughout without cord compromise. No findings of a paravertebral abscess. Abdomen X-Ray 04/12/18 09:42 CONCLUSION: No evidence of ileus. Gallium Scan Nuclear Medicine 04/13/18 00:00 CONCLUSION: 1. There is abnormal uptake in the lungs corresponding to cavitary lesions probably lung abscesses and areas of consolidation seen on the patient's prior chest CT. Chest CT 04/16/18 10:15 CONCLUSION: 1. A 23 mm left sided pneumothorax is identified. 2. Multiple cavitary lesions are again noted and slightly worse in appearance than on the previous examination. 3. Consolidation of the right upper lobe is again noted and [demonstrates] worsening cavitation. 4. Increased cavitation of the large left upper lobe lesion also. 5. Small partially loculated pleural effusions are noted. 6. Bibasilar alveolar consolidations are noted posteriorly consistent with probable atelectasis. 7. Tiny pericardial effusion is noted. 8. Degenerative changes are noted throughout the thoracic and upper lumbar spine. Chest X-Ray 04/20/18 00:00 CONCLUSION: 1. Persistent and unchanged bilateral pulmonary consolidations. 2. No pneumothorax. Physical Exam: GENERAL: NAD comfortable SKIN: Warm and dry. No rash HEAD: Atraumatic. Normocephalic. EYES: Pupils equal and round. No scleral icterus. No injection or drainage. ENT: No nasal bleeding or discharge. Mucous membranes pink and moist. NECK: Trachea midline. No JVD. CARDIOVASCULAR: Regular rate and rhythm. RESPIRATORY: No accessory muscle use. + few rhonchi to auscultation. Breath sounds equal bilaterally. L sided CT in place with serosang fluid GASTROINTESTINAL: Abdomen soft, non-tender, nondistended. MUSCULOSKELETAL: Extremities without clubbing, mi.ld toes cyanosis no significant edema. NEUROLOGICAL: resting comfortable PSYCHIATRIC: calm Assessment and Plan - Plan Sepsis High grade MRSA bacteremia with multifocal pulmonary infiltrates MR spine,brain megative DEEDEE wo e/o endocarditis Necrotizing MRSA PNA Acute VDRF Clincially improving HIV/HCV/HBV serologies negative Hypotention: resolved clinically improving n now Recs: cont IV Zyvox cont daptomycin IV thru 04/26 cont teflaro fu repeat blood clx monitor labs: CBC CMP
--- NOTE | 2018-04-20 22:29 | P.PNIM ---
Subjective Interval history: F/U sepsis, PNA and RF not seen Physical Exam Vital signs: Vital Signs 04/19/18 22:30 04/19/18 23:00 04/19/18 23:30 Temperature Pulse Rate 118 H 104 H 106 H Respiratory Rate 36 H 25 H 34 H Blood Pressure 100/60 98/57 L 108/69 Pulse Oximetry 95 94 L 95 04/20/18 00:00 04/20/18 00:29 04/20/18 00:30 Temperature Pulse Rate 107 H 106 H 106 H Respiratory Rate 37 H 18 22 Blood Pressure 108/74 105/71 Pulse Oximetry 96 96 04/20/18 01:00 04/20/18 01:30 04/20/18 02:00 Temperature Pulse Rate 105 H 105 H 109 H Respiratory Rate 32 H 32 H 25 H Blood Pressure 100/69 106/67 107/64 Pulse Oximetry 96 97 97 04/20/18 02:30 04/20/18 03:00 04/20/18 03:30 Temperature Pulse Rate 103 H 105 H 101 H Respiratory Rate 29 H 30 H 28 H Blood Pressure 114/63 101/66 110/74 Pulse Oximetry 97 97 98 04/20/18 04:00 04/20/18 04:29 04/20/18 04:30 Temperature 98.1 F Pulse Rate 102 H 96 H 96 H Respiratory Rate 28 H 26 H 23 Blood Pressure 111/70 115/77 Pulse Oximetry 95 96 97 04/20/18 05:00 04/20/18 05:30 04/20/18 06:00 Temperature Pulse Rate 107 H 101 H 106 H Respiratory Rate 27 H 28 H 31 H Blood Pressure 98/60 L 100/61 105/59 L Pulse Oximetry 95 04/20/18 06:30 04/20/18 07:00 04/20/18 07:30 Temperature Pulse Rate 109 H 99 H 101 H Respiratory Rate 29 H 26 H 27 H Blood Pressure 126/84 126/80 129/75 Pulse Oximetry 96 97 99 04/20/18 08:00 04/20/18 08:30 04/20/18 09:00 Temperature 97.1 F L Pulse Rate 110 H 93 H 106 H Respiratory Rate 26 H 22 27 H Blood Pressure 125/73 126/68 113/78 Pulse Oximetry 98 96 98 04/20/18 09:30 04/20/18 10:00 04/20/18 10:34 Temperature Pulse Rate 93 H 117 H 108 H Respiratory Rate 29 H 31 H 28 H Blood Pressure 127/81 110/74 Pulse Oximetry 98 97 96 04/20/18 11:00 04/20/18 11:09 04/20/18 11:30 Temperature Pulse Rate 102 H 107 H Respiratory Rate 27 H 28 H Blood Pressure 112/75 117/76 Pulse Oximetry 99 98 96 04/20/18 11:44 04/20/18 12:00 04/20/18 12:30 Temperature 98.6 F Pulse Rate 102 H 109 H 106 H Respiratory Rate 24 31 H 25 H Blood Pressure 116/83 95/65 L Pulse Oximetry 94 L 96 04/20/18 13:00 04/20/18 13:30 04/20/18 14:00 Temperature Pulse Rate 112 H 106 H 107 H Respiratory Rate 22 17 28 H Blood Pressure 100/73 103/68 97/65 L Pulse Oximetry 96 100 100 04/20/18 14:30 04/20/18 15:00 04/20/18 15:30 Temperature Pulse Rate 106 H 112 H 99 H Respiratory Rate 25 H 23 27 H Blood Pressure 96/66 L 103/75 103/66 Pulse Oximetry 100 98 98 04/20/18 16:00 04/20/18 16:30 04/20/18 17:00 Temperature 97.8 F Pulse Rate 103 H 105 H 108 H Respiratory Rate 23 27 H 29 H Blood Pressure 120/73 98/59 L Pulse Oximetry 97 99 96 04/20/18 17:01 04/20/18 17:30 04/20/18 20:07 Temperature Pulse Rate 108 H 104 H 104 H Respiratory Rate 27 H 26 H 14 Blood Pressure 106/74 95/60 L Pulse Oximetry 98 99 98 Intake & Output 04/20/18 04/20/18 04/21/18 06:59 18:59 06:59 Intake Total 520 / 520 980 / 980 Output Total 1180 / 1180 1520 / 1520 Balance -660 / -660 -540 / -540 Weight 78.5 kg Intake: IV 400 / 400 500 / 500 Teflaro Inj 600 MG In NS Inj 100 / 100 100 / 100 100 ML @ 100 mls/hr IV.SIG Q12H [facility] Rx#:[id number] Cubicin Inj 1,000 MG In NS Inj 100 / 100 100 ML @ 200 mls/hr IV.SIG Q24H [facility] Rx#:[id number] Zyvox 600 mg Premix 300 ML @ 300 / 300 300 / 300 300 mls/hr IV.SIG Q12H [facility] Rx#: [id number] Oral 120 / 120 480 / 480 Output: Urine 1500 / 1500 Stool 0 / 0 Urine/Stool Mix 0 / 0 Urine Amount (Catheter) 1150 / 1150 Condom 1150 / 1150 Chest Tube Drainage Left Other: Date of Last Bowel Movement 04/19/18 04/19/18 # Bowel Movements 0 0 # Incontinent Bowel Movements 0 Narrative: GENERAL: Patient is lying in bed in NAD, on nasal cannula SKIN: Warm and dry. HEAD: Atraumatic. Normocephalic. EYES: Pupils equal and round. No scleral icterus. No injection or drainage. ENT: No nasal bleeding or discharge. Mucous membranes pink and moist. NECK: Trachea midline. No JVD. CARDIOVASCULAR: Regular rate and rhythm. sinus. RESPIRATORY: No accessory muscle use. equal chest rise. Scattered rhonchi bilaterally. Left-sided chest tube in place. No air leak noted GASTROINTESTINAL: Abdomen soft, non-tender, nondistended. no guarding. MUSCULOSKELETAL: Extremities without clubbing, cyanosis, or edema. No obvious deformities. NEUROLOGICAL: Awake and alert Urinary Catheter Management Indwelling Urethral Catheter: Cath placed during this visit: yes, but has since been removed by the nurse Reason for continuing: Acute urinary retention Insertion date: 04/05/18 Insertion time: 23:00 Removal date: 04/12/18 Removal time: 08:30 Condom: Cath placed during this visit: no Reason for continuing: Acute urinary retention Straight: Cath placed during this visit: yes Reason for continuing: Acute urinary retention Insertion date: 04/08/18 Insertion time: 18:00 Results Labs CBC & Chem 7: 04/20/18 08:47 04/19/18 05:05 Labs: Microbiology 04/16/18 04:39 Blood - Peripheral Aerobic Blood Culture - Preliminary No growth in 4 days 04/16/18 04:39 Blood - Peripheral Anaerobic Blood Culture - Preliminary No growth in 4 days 04/16/18 04:27 Blood - Peripheral Aerobic Blood Culture - Preliminary No growth in 4 days 04/16/18 04:27 Blood - Peripheral Anaerobic Blood Culture - Preliminary No growth in 4 days Imaging Imaging: ITS Impressions Face CT 04/06/18 00:00 CONCLUSION: 1. Small focal area of soft tissue swelling involving the lateral orbital margin on the left. No abscess. Abdomen/Pelvis CT 04/10/18 00:00 CONCLUSION: 1. Findings in the patient's chest discussed on the patient's chest CT. 2. Left renal stone without hydronephrosis. 3. Slight AAA. 4. Possible gallstones within the gallbladder. 5. There is slight fluid within the peritoneal cavity in the pelvis and within left perinephric space and stranding densities involving the Gerota's fascia on the left side. The exact etiology is not certain could be inflammatory, and there is no hydronephrosis. Head MRI 04/12/18 00:00 CONCLUSION: 1. Some chronic changes with mild cortical and central atrophy. Minimal periventricular and scattered deep white matter tract areas of small vessel ischemic demyelination. 2. Some fluid or secretions identified in the dependent portion of the nasopharynx. 3. Otherwise negative. No findings of intracranial mass lesion/abscess. Lumbar Spine MRI 04/12/18 00:00 CONCLUSION: 1. No evidence of epidural abscess. 2. Grade 1 anterolisthesis at L5-S1 with associated discogenic degenerative changes and bilateral pars defects. There is significant bilateral bony neural foraminal stenosis with bilateral neural impingement. 3. Asymmetric ligamentum flavum hypertrophy on the right side at the L4-5 level flattens the dorsal lateral aspect of the thecal sac. Neural foramen remain patent. 4. Suggestion of distended urinary bladder, incompletely imaged in the field-of -view. Thoracic Spine MRI 04/12/18 00:00 CONCLUSION: 1. Small bilateral pleural effusions. 2. Spinal canal is widely patent throughout without cord compromise. No findings of a paravertebral abscess. Abdomen X-Ray 04/12/18 09:42 CONCLUSION: No evidence of ileus. Gallium Scan Nuclear Medicine 04/13/18 00:00 CONCLUSION: 1. There is abnormal uptake in the lungs corresponding to cavitary lesions probably lung abscesses and areas of consolidation seen on the patient's prior chest CT. Chest CT 04/16/18 10:15 CONCLUSION: 1. A 23 mm left sided pneumothorax is identified. 2. Multiple cavitary lesions are again noted and slightly worse in appearance than on the previous examination. 3. Consolidation of the right upper lobe is again noted and [demonstrates] worsening cavitation. 4. Increased cavitation of the large left upper lobe lesion also. 5. Small partially loculated pleural effusions are noted. 6. Bibasilar alveolar consolidations are noted posteriorly consistent with probable atelectasis. 7. Tiny pericardial effusion is noted. 8. Degenerative changes are noted throughout the thoracic and upper lumbar spine. Chest X-Ray 04/20/18 00:00 CONCLUSION: 1. Persistent and unchanged bilateral pulmonary consolidations. 2. No pneumothorax. Procedures Procedures: DEEDEE Chest tube Assessment and Plan Plan NEURO/Psych: Acute metabolic encephalopathy-improved - Awake and alert . Monitor neuro status. Avoid sedatives -CT face revealed left orbital swelling/lateral. MRI brain: Some chronic changes with mild cortical and central atrophy. Minimal periventricular and scattered deep white matter tract areas of small vessel ischemic demyelination. No findings of intracranial mass lesion/abscess. RESP: Acute hypoxic respiratory failure- slowly improving Anaphylactic reaction to vancomycin Community acquired MRSA pneumonia Acute COPD exacerbation Bilateral pneumonia Coronary artery calcification Left lower lobe 1.5 cm pulmonary nodule. Outpatient PET scan -Extubated 04/13 -Continue with oxygen keep sats >92% -Albuterol/ipratropium aerosols every 4 hours with albuterol aerosols every 2 hours as needed dyspnea CT chest 04/16 showed:: A 23 mm left sided pneumothorax is identified. Multiple cavitary lesions are again noted and slightly worse in appearance than on the previous examination. Consolidation of the right upper lobe is again noted and [demonstrates] worsening cavitation. Increased cavitation of the large left upper lobe lesion also. Small partially loculated pleural effusions are noted. Bibasilar alveolar consolidations are noted posteriorly consistent with probable atelectasis -A [address] tube placed on left . -On Solumederol 40mg IV Q12- taper per pulmonary -Vancomycin added to allergy -nicotine patch 7 mg daily. -F/u CXR CV: History of hypertension septic shock- resolved Slight AAA Monitor HR and BP keep MAP>65mmHg. On Cardizem 60mg Q6, Lactic acid 1.9 on 04/05 Op monitoring of AAA GI: Hypoalbuminemia Acute protein calorie malnutrition - moderate On reg diet per Speech -famotidine for GI prophylaxis -Docusate sodium/senna 1 tablet twice daily for bowel regimen -04/12 KUB abdomen: No ileus -Bowel regimen with Colace, Senna and Lactulose Renal/FEN/: Acute kidney injury- improving. Acute urinary retention Hypernatremia -Monitor renal function, I/O's,. Electrolytes replacement per protocol. ID: Septic shock- resolved Multifocal pneumonia MRSA bacteremia on 04/05, 04/07 MRSA pneumonia -Continue abx,( Zyvox and Daptomycin) ID is following. Monitor CK. ID added Teflaro on 04/17 - BC 04/05,04/07: MRSA, follow up BC from 04/09 MRSA, 04/10 BC: MRSA. -BC 04/12: NGTD -Sputum cx 04/06, 04/10: MRSA , - DEEDEE 04/08 without vegetations, normal EF -Gallium scan: There is abnormal uptake in the lungs corresponding to cavitary lesions probably lung abscesses and areas of consolidation seen on the patient' s prior chest CT. -MRI T-L spine: No abscess HEME: -Monitor CBC, coags ENDO: Hyperglycemia -Electrolyte replacement per protocol -Sliding scale insulin Accu-Cheks every 6 hours to maintain euglycemia PROPH: -Bilateral lower extremity SCDs. Enoxaparin/famotidine LINES: -Utilize peripheral IVs, Progress Note: Quality VTE Deep Vein Thrombosis/Pulmonary Embolism Present on Admission: No
[2018-04-21] MEDS: Artificial Tears Opth Drops 15 ML Bottle EACH EYE SCH ×3 (04:11→20:40)
[2018-04-21] MEDS: Morphine Inj 4 MG/ML Vial IV.PUSH PRN ×3 (04:11→17:17)
[2018-04-21] MEDS: Oral Hygiene Kit OROPHARYNG SCH ×3 (04:11→15:47)
[2018-04-21] MEDS: Insulin NovoLIN Regular Correctional Sugar Inj SQ SCH ×3 (07:43→17:18)
[2018-04-21] MEDS: Mupirocin 2% Nasal Oint Topical Syringe EACH NARE SCH ×2 (08:30→20:40)
[2018-04-21] MEDS: Docusate Sodium 100 MG Capsule PO SCH ×2 (08:31→20:40)
[2018-04-21] MEDS: Sennosides Liq 8.8 MG/5 ML UDC PO SCH (08:31)
[2018-04-21] MEDS: Chlorhexidine 0.12% Oral Kit 15 ML UDC OROPHARYNG SCH ×2 (08:31→20:40)
[2018-04-21] MEDS: Famotidine 20 MG Tablet PO SCH ×2 (08:31→20:40)
[2018-04-21] MEDS: Sodium Chloride 0.9% 2 ML Flush BID IV.FLUSH SCH ×2 (08:32→20:40)
[2018-04-21 11:06] LABS: Baso # (Auto) 0.1 th/mm3 (0.0-0.2); Baso % (Auto) 0.5 % (0.0-2.0); Eos # (Auto) 0.1 th/mm3 (0.0-0.4); Eos % (Auto) 1.1 % (0.0-4.0); Hemoglobin 12.7 gm/dL (13.0-17.0); Lymph # (Auto) 0.8 th/mm3 (1.0-4.8); Lymph % (Auto) 8.3 % (9.0-44.0); Mean Corpuscular HGB Conc 33.4 % (32.0-36.0); Mean Corpuscular Hemoglobin 29.9 pg (27.0-34.0); Mean Corpuscular Volume 89.7 fL (80.0-100.0); Mean Platelet Volume 9.2 fL (7.0-11.0); Mono # (Auto) 0.5 th/mm3 (0.0-0.9); Mono % (Auto) 5.3 % (0.0-8.0); Neut # (Auto) 8.4 th/mm3 (1.8-7.7); Neut % (Auto) 84.8 % (16.0-70.0); Platelet Count 299 th/mm3 (150-450); Red Blood Count 4.24 mil/mm3 (4.50-5.90); White Blood Count 9.9 th/mm3 (4.0-11.0)
[2018-04-21] MEDS: DAPTOmycin Inj 1,000 MG in Sodium Chlor 0.9% Inj 100 ML IV.SIG SCH (12:58)
--- NOTE | 2018-04-21 19:14 | P.PNIM ---
Subjective Interval history: Patient seen in the intensive care unit. Patient reports that his breathing is better. He worked with physical therapy today. He denies any active pain at this time. Physical Exam Vital signs: Vital Signs 04/20/18 19:30 04/20/18 20:00 04/20/18 20:07 Temperature 98.3 F Pulse Rate 113 H 112 H 104 H Respiratory Rate 28 H 21 14 Blood Pressure 116/82 113/73 Pulse Oximetry 100 99 98 04/20/18 20:30 04/20/18 21:00 04/20/18 21:30 Temperature Pulse Rate 124 H 108 H 104 H Respiratory Rate 32 H 24 20 Blood Pressure 97/65 L 94/64 L 96/65 L Pulse Oximetry 97 100 98 04/20/18 22:00 04/20/18 22:30 04/20/18 23:00 Temperature Pulse Rate 108 H 108 H 108 H Respiratory Rate 27 H 23 26 H Blood Pressure 106/68 107/67 113/69 Pulse Oximetry 98 97 95 04/20/18 23:16 04/20/18 23:30 04/21/18 00:00 Temperature Pulse Rate 111 H 112 H 101 H Respiratory Rate 19 28 H 20 Blood Pressure 121/74 118/71 Pulse Oximetry 96 98 04/21/18 00:30 04/21/18 01:00 04/21/18 01:30 Temperature Pulse Rate 110 H 115 H 97 H Respiratory Rate 23 19 10 L Blood Pressure 108/66 91/54 L 105/58 L Pulse Oximetry 97 94 L 99 04/21/18 02:00 04/21/18 02:30 04/21/18 03:00 Temperature Pulse Rate 104 H 110 H 108 H Respiratory Rate 23 22 21 Blood Pressure 105/65 103/60 105/68 Pulse Oximetry 96 94 L 97 04/21/18 03:30 04/21/18 03:46 04/21/18 04:00 Temperature 98.5 F Pulse Rate 95 H 101 H 109 H Respiratory Rate 19 20 31 H Blood Pressure 112/67 Pulse Oximetry 98 99 04/21/18 04:55 04/21/18 05:00 04/21/18 06:00 Temperature Pulse Rate 103 H 103 H 102 H Respiratory Rate 24 25 H 25 H Blood Pressure 128/77 Pulse Oximetry 97 96 97 04/21/18 07:00 04/21/18 08:00 04/21/18 08:24 Temperature Pulse Rate 104 H 102 H 107 H Respiratory Rate 20 20 25 H Blood Pressure Pulse Oximetry 96 98 95 04/21/18 08:40 04/21/18 08:51 04/21/18 09:00 Temperature Pulse Rate Respiratory Rate 18 22 Blood Pressure 114/63 Pulse Oximetry 96 96 98 04/21/18 09:32 04/21/18 10:00 04/21/18 11:00 Temperature Pulse Rate 109 H 103 H Respiratory Rate 20 23 23 Blood Pressure Pulse Oximetry 96 99 04/21/18 11:43 04/21/18 12:00 04/21/18 12:12 Temperature Pulse Rate 106 H 108 H 101 H Respiratory Rate 18 20 Blood Pressure Pulse Oximetry 98 98 04/21/18 12:58 04/21/18 13:00 04/21/18 14:00 Temperature Pulse Rate 97 H Respiratory Rate 20 18 22 Blood Pressure 119/77 Pulse Oximetry 95 99 04/21/18 15:00 04/21/18 15:22 04/21/18 16:00 Temperature Pulse Rate 102 H 110 H 113 H Respiratory Rate 18 20 Blood Pressure Pulse Oximetry 99 96 04/21/18 16:39 04/21/18 17:00 04/21/18 17:04 Temperature Pulse Rate 109 H 113 H Respiratory Rate 22 20 18 Blood Pressure 102/64 Pulse Oximetry 99 94 L 97 04/21/18 17:31 Temperature Pulse Rate Respiratory Rate 20 Blood Pressure Pulse Oximetry Intake & Output 04/21/18 04/21/18 04/22/18 06:59 18:59 06:59 Intake Total 480 / 480 1620 / 1620 Output Total 350 / 350 800 / 800 Balance 130 / 130 820 / 820 Weight 79 kg Intake: IV 900 / 900 Teflaro Inj 600 MG In NS Inj 200 / 200 100 ML @ 100 mls/hr IV.SIG Q12H [facility] Rx#:[id number] Cubicin Inj 1,000 MG In NS Inj 100 / 100 100 ML @ 200 mls/hr IV.SIG Q24H [facility] Rx#:[id number] Zyvox 600 mg Premix 300 ML @ 600 / 600 300 mls/hr IV.SIG Q12H [facility] Rx#: [id number] Oral 480 / 480 720 / 720 Output: Urine 350 / 350 800 / 800 Stool 0 / 0 Urine/Stool Mix 0 / 0 Other: # Voids 3 # Incontinent Voids 0 Date of Last Bowel Movement 04/21/18 04/19/18 # Bowel Movements 1 # Incontinent Bowel Movements 1 Narrative: GENERAL: Patient is lying in bed in NAD, on nasal cannula NECK: Trach in place with trach collar NoseNG tube in place Cardiovascularregular rate and rhythm RESPIRATORY: Scattered rhonchi bilaterally. Left-sided chest tube in place to suction. No air leak noted GASTROINTESTINAL: Abdomen soft, non-tender, nondistended. Normoactive bowel sounds MUSCULOSKELETAL: Extremities without clubbing, cyanosis, or edema. No obvious deformities. NEUROLOGICAL: Awake and alert to person and place and time he was able to move bilateral lower extremity but with generalized weakness Urinary Catheter Management Indwelling Urethral Catheter: Cath placed during this visit: yes, but has since been removed by the nurse Reason for continuing: Acute urinary retention Insertion date: 04/05/18 Insertion time: 23:00 Removal date: 04/12/18 Removal time: 08:30 Condom: Cath placed during this visit: no Reason for continuing: Acute urinary retention Straight: Cath placed during this visit: yes Reason for continuing: Acute urinary retention Insertion date: 04/08/18 Insertion time: 18:00 Results Labs CBC & Chem 7: 04/21/18 10:05 04/19/18 05:05 Labs: Microbiology 04/16/18 04:39 Blood - Peripheral Aerobic Blood Culture - Final No growth in 5 days 04/16/18 04:39 Blood - Peripheral Anaerobic Blood Culture - Final No growth in 5 days 04/16/18 04:27 Blood - Peripheral Aerobic Blood Culture - Final No growth in 5 days 04/16/18 04:27 Blood - Peripheral Anaerobic Blood Culture - Final No growth in 5 days Procedures Procedures: DEEDEE Chest tube Assessment and Plan Plan 72-year-old white male presented initially to the emergency room with acute shortness of breath and was found to be hypotensive and deemed septic from suspected pneumonia and IV vancomycin was given leading to patient acutely decompensated and developed erythematous maculopapular rash and was emergently intubated. Acute metabolic encephalopathy-improved - Awake and alert . Monitor neuro status. Avoid sedatives -CT face revealed left orbital swelling/lateral. MRI brain: Some chronic changes with mild cortical and central atrophy. Minimal periventricular and scattered deep white matter tract areas of small vessel ischemic demyelination. No findings of intracranial mass lesion/abscess. Acute hypoxic respiratory failure- slowly improving, was extubated on 04/13 Anaphylactic reaction to vancomycin Community acquired MRSA bilateral pneumonia Acute COPD exacerbation Coronary artery calcification Left lower lobe 1.5 cm pulmonary nodule. Outpatient PET scan Left-sided pneumothoraxsided chest tube is managed by pulmonary -Continue with oxygen keep sats >92% -Albuterol/ipratropium aerosols every 4 hours with albuterol aerosols every 2 hours as needed dyspnea CT chest 04/16 showed:: A 23 mm left sided pneumothorax is identified. Multiple cavitary lesions are again noted and slightly worse in appearance than on the previous examination. Consolidation of the right upper lobe is again noted and [demonstrates] worsening cavitation. Increased cavitation of the large left upper lobe lesion also. Small partially loculated pleural effusions are noted. Bibasilar alveolar consolidations are noted posteriorly consistent with probable atelectasis -A [address] tube placed on left . -On Solumederol 40mg IV Q12- taper per pulmonary Tobacco abusepatient counseled -nicotine patch 7 mg daily. Acute metabolic encephalopathy-improved - Awake and alert x3. Monitor neuro status. Avoid sedatives -CT face revealed left orbital swelling/lateral. MRI brain: Some chronic changes with mild cortical and central atrophy. Minimal periventricular and scattered deep white matter tract areas of small vessel ischemic demyelination. No findings of intracranial mass lesion/abscess. History of hypertension On Cardizem 60mg Q6, Small AAA Op monitoring of AAA Acute protein calorie malnutrition - moderate, continue supplements. Acute kidney injury- improving. Acute urinary retentionresolved and urinating without Shine catheter. Hypernatremiaresolved Septic shock- resolved Multifocal pneumonia MRSA bacteremia on 04/05, 04/07 MRSA pneumonia -Continue abx,( Zyvox and Daptomycin) ID is following. Monitor CK. ID added Teflaro on 04/17, per ID will need daptomycin through April 26 - BC 04/05,04/07: MRSA, follow up BC from 04/09 MRSA, 04/10 BC: MRSA. -BC 04/12: NGTD -Sputum cx 04/06, 04/10: MRSA , - DEEDEE 04/08 without vegetations, normal EF -Gallium scan: There is abnormal uptake in the lungs corresponding to cavitary lesions probably lung abscesses and areas of consolidation seen on the patient' s prior chest CT. -MRI T-L spine: No abscess Hyperglycemia now resolved Will discontinue Accu-Cheks. GI and DVT PROPH: -Bilateral lower extremity SCDs. Enoxaparin/famotidine Transfer out of intensive care unit Will need rehab placement Continue PT and consult OT Progress Note: Quality VTE Deep Vein Thrombosis/Pulmonary Embolism Present on Admission: No
[2018-04-21] MEDS ORDERED: Naloxone Inj 0.4 MG/ML Vial IV.PUSH PRN (19:30)
[2018-04-21] MEDS ORDERED: Acetaminophen 325 MG Tablet PO PRN (19:30)
--- NOTE | 2018-04-21 19:44 | P.PNPL ---
Subjective Interval history: 72 YOWM with MRSA Pn, cavitary lesion, COPD, Lt ptx Left chest tube to suction mild sob Congested, not bringing up sp No Fever Weaned to RA Physical Exam Vital signs: Vital Signs 04/20/18 20:00 04/20/18 20:07 04/20/18 20:30 Temperature 98.3 F Pulse Rate 112 H 104 H 124 H Respiratory Rate 21 14 32 H Blood Pressure 113/73 97/65 L Pulse Oximetry 99 98 97 04/20/18 21:00 04/20/18 21:30 04/20/18 22:00 Temperature Pulse Rate 108 H 104 H 108 H Respiratory Rate 24 20 27 H Blood Pressure 94/64 L 96/65 L 106/68 Pulse Oximetry 100 98 98 04/20/18 22:30 04/20/18 23:00 04/20/18 23:16 Temperature Pulse Rate 108 H 108 H 111 H Respiratory Rate 23 26 H 19 Blood Pressure 107/67 113/69 Pulse Oximetry 97 95 04/20/18 23:30 04/21/18 00:00 04/21/18 00:30 Temperature Pulse Rate 112 H 101 H 110 H Respiratory Rate 28 H 20 23 Blood Pressure 121/74 118/71 108/66 Pulse Oximetry 96 98 97 04/21/18 01:00 04/21/18 01:30 04/21/18 02:00 Temperature Pulse Rate 115 H 97 H 104 H Respiratory Rate 19 10 L 23 Blood Pressure 91/54 L 105/58 L 105/65 Pulse Oximetry 94 L 99 96 04/21/18 02:30 04/21/18 03:00 04/21/18 03:30 Temperature Pulse Rate 110 H 108 H 95 H Respiratory Rate 22 21 19 Blood Pressure 103/60 105/68 112/67 Pulse Oximetry 94 L 97 98 04/21/18 03:46 04/21/18 04:00 04/21/18 04:55 Temperature 98.5 F Pulse Rate 101 H 109 H 103 H Respiratory Rate 20 31 H 24 Blood Pressure 128/77 Pulse Oximetry 99 97 04/21/18 05:00 04/21/18 06:00 04/21/18 07:00 Temperature Pulse Rate 103 H 102 H 104 H Respiratory Rate 25 H 25 H 20 Blood Pressure Pulse Oximetry 96 97 96 04/21/18 08:00 04/21/18 08:24 04/21/18 08:40 Temperature Pulse Rate 102 H 107 H Respiratory Rate 20 25 H 18 Blood Pressure 114/63 Pulse Oximetry 98 95 96 04/21/18 08:51 04/21/18 09:00 04/21/18 09:32 Temperature Pulse Rate Respiratory Rate 22 20 Blood Pressure Pulse Oximetry 96 98 04/21/18 10:00 04/21/18 11:00 04/21/18 11:43 Temperature Pulse Rate 109 H 103 H 106 H Respiratory Rate 23 23 18 Blood Pressure Pulse Oximetry 96 99 98 04/21/18 12:00 04/21/18 12:12 04/21/18 12:58 Temperature Pulse Rate 108 H 101 H Respiratory Rate 20 20 Blood Pressure 119/77 Pulse Oximetry 98 04/21/18 13:00 04/21/18 14:00 04/21/18 15:00 Temperature Pulse Rate 97 H 102 H Respiratory Rate 18 22 18 Blood Pressure Pulse Oximetry 95 99 99 04/21/18 15:22 04/21/18 16:00 04/21/18 16:39 Temperature Pulse Rate 110 H 113 H 109 H Respiratory Rate 20 22 Blood Pressure Pulse Oximetry 96 99 04/21/18 17:00 04/21/18 17:04 04/21/18 17:31 Temperature Pulse Rate 113 H Respiratory Rate 20 18 20 Blood Pressure 102/64 Pulse Oximetry 94 L 97 04/21/18 19:00 Temperature Pulse Rate Respiratory Rate Blood Pressure Pulse Oximetry 99 Intake & Output 04/21/18 04/21/18 04/22/18 06:59 18:59 06:59 Intake Total 480 / 480 1620 / 1620 Output Total 350 / 350 800 / 800 Balance 130 / 130 820 / 820 Weight 79 kg Intake: IV 900 / 900 Teflaro Inj 600 MG In NS Inj 200 / 200 100 ML @ 100 mls/hr IV.SIG Q12H [facility] Rx#:[id number] Cubicin Inj 1,000 MG In NS Inj 100 / 100 100 ML @ 200 mls/hr IV.SIG Q24H [facility] Rx#:[id number] Zyvox 600 mg Premix 300 ML @ 600 / 600 300 mls/hr IV.SIG Q12H [facility] Rx#: [id number] Oral 480 / 480 720 / 720 Output: Urine 350 / 350 800 / 800 Stool 0 / 0 Urine/Stool Mix 0 / 0 Other: # Voids 3 # Incontinent Voids 0 Date of Last Bowel Movement 04/21/18 04/19/18 # Bowel Movements 1 # Incontinent Bowel Movements 1 GENERAL: Elderly WM, NAD SKIN: Warm and dry. HEAD: Normocephalic. EYES: No scleral icterus. No injection or drainage. NECK: Supple, trachea midline. No JVD or lymphadenopathy. CARDIOVASCULAR: Regular rate and rhythm without murmurs, gallops, or rubs. RESPIRATORY: Breath sounds equal bilaterally. No accessory muscle use. Left chest tube to suction GASTROINTESTINAL: Abdomen soft, non-tender, nondistended. MUSCULOSKELETAL: No cyanosis, or edema. BACK: Nontender without obvious deformity. No CVA tenderness. - Urinary Catheter Management Indwelling Urethral Catheter Cath placed during this visit: yes, but has since been removed by the nurse Reason for continuing: Acute urinary retention Insertion date: 04/05/18 Insertion time: 23:00 Removal date: 04/12/18 Removal time: 08:30 Condom Cath placed during this visit: no Reason for continuing: Acute urinary retention Straight Cath placed during this visit: yes Reason for continuing: Acute urinary retention Insertion date: 04/08/18 Insertion time: 18:00 Assessment and Plan - Plan IMPRESSION: 1. MRSA pneumonia. 2. Cavitary pneumonia. 4. Chronic obstructive pulmonary disease. 5. Hypotension. 6. Left pneumothorax, status post chest tube. 7. Nicotine use. PLAN: Cont Abx per ID Ceftaroline, Zyvox, Daptomycin Aerosol nebs Supplement 02 SQ lovenox Chest tube to suction Encourage to use Acapella CXR in AM
[2018-04-21] MEDS: Enoxaparin Inj 40 MG/0.4 ML Syringe SQ SCH (22:02)
[2018-04-22] MEDS: Oral Hygiene Kit OROPHARYNG SCH ×4 (02:49→15:59)
[2018-04-22] MEDS: Artificial Tears Opth Drops 15 ML Bottle EACH EYE SCH ×3 (04:08→21:31)
--- NOTE | 2018-04-22 07:33 | XR ---
EXAM DATE: 04/22/2018 7:05 AM EST AGE/SEX: 72 years / Male INDICATIONS: Short of breath. CLINICAL DATA: This is the patient's subsequent encounter. Patient reports that signs and symptoms h ave been present for 2 weeks and indicates a pain score of Nonresponsive. MEDICAL/SURGICAL HISTORY: . Chronic obstructive pulmonary disease. Hypertension. . Discectomy , lumbar. COMPARISON: [facility], CHEST 1V SINGLE AP, 04/20/2018. . FINDINGS: Stable bilateral patchy infiltrates are noted. Left chest tube is stable. No pneumothorax is noted. T he heart and mediastinal structures are stable. CONCLUSION: No significant change compared to 04/20/2018. Electronically signed by: Vega Aguirre MD Board Certified Radiologist 04/22/2018 7:31 AM EST
--- NOTE | 2018-04-22 09:26 | P.PNIM ---
Subjective Interval history: Patient seen and examined this morning at the bedside on follow up of MRSA pneumonia and chest tube Patient denied subjective fever or chills + sputum noted no coughing no hemoptysis + chest tube with steady outpt still set to suction CXR obtained this morning Without any new significant changes from chest x-ray on 04/20Which showed unchanged bilateral pulmonary consolidation Worked with PT yesterday for 10 min. They are outside the door now waiting to evaluate Physical Exam Vital signs: Vital Signs 04/21/18 09:32 04/21/18 10:00 04/21/18 11:00 Temperature Pulse Rate 109 H 103 H Respiratory Rate 20 23 23 Blood Pressure Pulse Oximetry 96 99 04/21/18 11:43 04/21/18 12:00 04/21/18 12:12 Temperature Pulse Rate 106 H 108 H 101 H Respiratory Rate 18 20 Blood Pressure Pulse Oximetry 98 98 04/21/18 12:58 04/21/18 13:00 04/21/18 14:00 Temperature Pulse Rate 97 H Respiratory Rate 20 18 22 Blood Pressure 119/77 Pulse Oximetry 95 99 04/21/18 15:00 04/21/18 15:22 04/21/18 16:00 Temperature Pulse Rate 102 H 110 H 113 H Respiratory Rate 18 20 Blood Pressure Pulse Oximetry 99 96 04/21/18 16:39 04/21/18 17:00 04/21/18 17:04 Temperature Pulse Rate 109 H 113 H Respiratory Rate 22 20 18 Blood Pressure 102/64 Pulse Oximetry 99 94 L 97 04/21/18 17:31 04/21/18 18:00 04/21/18 19:00 Temperature Pulse Rate 107 H 112 H Respiratory Rate 20 25 H 24 Blood Pressure Pulse Oximetry 95 95 04/21/18 19:53 04/21/18 20:00 04/21/18 20:16 Temperature 98.4 F Pulse Rate 121 H 115 H 117 H Respiratory Rate 25 H 29 H 16 Blood Pressure 104/69 97/52 L Pulse Oximetry 96 94 L 93 L 04/21/18 21:00 04/21/18 22:00 04/21/18 23:00 Temperature Pulse Rate 116 H 111 H 118 H Respiratory Rate 22 25 H 10 L Blood Pressure 109/69 114/67 Pulse Oximetry 92 L 94 L 94 L 04/21/18 23:54 04/22/18 00:00 04/22/18 01:00 Temperature 98.8 F Pulse Rate 123 H 118 H Respiratory Rate 7 L 24 Blood Pressure 103/58 L Pulse Oximetry 91 L 92 L 91 L 04/22/18 02:00 04/22/18 03:00 04/22/18 04:00 Temperature Pulse Rate 126 H 121 H 120 H Respiratory Rate 28 H 29 H 25 H Blood Pressure 103/65 Pulse Oximetry 91 L 94 L 95 Intake & Output 04/21/18 04/22/18 04/22/18 18:59 06:59 18:59 Intake Total 1620 / 1620 1120 / 1120 Output Total 800 / 800 1300 / 1300 Balance 820 / 820 -180 / -180 Weight 79 kg Intake: IV 900 / 900 400 / 400 Teflaro Inj 600 MG In NS Inj 200 / 200 100 / 100 100 ML @ 100 mls/hr IV.SIG Q12H [facility] Rx#:[id number] Cubicin Inj 1,000 MG In NS Inj 100 / 100 100 ML @ 200 mls/hr IV.SIG Q24H [facility] Rx#:[id number] Zyvox 600 mg Premix 300 ML @ 600 / 600 300 / 300 300 mls/hr IV.SIG Q12H [facility] Rx#: [id number] Oral 720 / 720 720 / 720 Output: Urine 800 / 800 1250 / 1250 Chest Tube Drainage 50 / 50 Left 50 / 50 Other: Date of Last Bowel Movement 04/19/18 04/19/18 # Bowel Movements 0 Narrative: GENERAL: Patient is lying in bed in NAD, on nasal cannula NECK: Trach in place with trach collar NoseNG tube in place Cardiovascular tachycardia regular rate and rhythm RESPIRATORY: Scattered rhonchi bilaterally. Left-sided chest tube in place to suction. No air leak noted GASTROINTESTINAL: Abdomen soft, non-tender, nondistended. Normoactive bowel sounds MUSCULOSKELETAL: Extremities without clubbing, cyanosis, or edema. No obvious deformities. NEUROLOGICAL: Awake and alert to person and place and time Urinary Catheter Management Indwelling Urethral Catheter: Cath placed during this visit: yes, but has since been removed by the nurse Reason for continuing: Acute urinary retention Insertion date: 04/05/18 Insertion time: 23:00 Removal date: 04/12/18 Removal time: 08:30 Condom: Cath placed during this visit: no Reason for continuing: Acute urinary retention Straight: Cath placed during this visit: yes Reason for continuing: Acute urinary retention Insertion date: 04/08/18 Insertion time: 18:00 Results Labs CBC & Chem 7: 04/21/18 10:05 04/19/18 05:05 Labs: Microbiology 04/16/18 04:39 Blood - Peripheral Aerobic Blood Culture - Final No growth in 5 days 04/16/18 04:39 Blood - Peripheral Anaerobic Blood Culture - Final No growth in 5 days 04/16/18 04:27 Blood - Peripheral Aerobic Blood Culture - Final No growth in 5 days 04/16/18 04:27 Blood - Peripheral Anaerobic Blood Culture - Final No growth in 5 days Imaging Imaging: Impressions Chest X-Ray 04/22/18 07:00 CONCLUSION: No significant change compared to 04/20/2018. Procedures Procedures: DEEDEE Chest tube Assessment and Plan Plan Patient is a 72-year-old male with past medical history COPD and hypertension who presented with shortness of breath noted to have lung consolidation and cultures positive for MRSA pneumonia. Neurology: Acute metabolic encephalopathy Suspected to be in the setting of sepsis. Currently resolved MRI brain reviewed. Small chronic changes no acute finding of lesions or abscess Critical care/pulmonary: Acute hypoxic respiratory failure, left-sided pneumothorax w/ LEFT sided chest tube, MRSA pneumonia, prior MRSA bacteremia., COPD Patient status post extubation in the ICU on 04/13. Suspected to have occurred in the setting of anaphylactic reaction to vancomycin. Pulmonary consulted recommendations appreciated Continue chest tube on left side set to suction. Left lower lobe 1.5 cm pulmonary nodule recommend outpatient PET scan on follow -up Continue DuoNeb every [address] imaging reviewed via EMR. Consolidation of right upper lobe noted. Increased cavitation of the large left upper lobe lesion seen. Solu-Medrol 40 mg IV every 12 continue to taper as per pulmonary recommendation.Antibiotics: Cefotan Oralia, linezolid, and daptomycin. Infectious disease consulted recommendations appreciated MRSA bacteremia on 04/05, 04/07. DEEDEE on 04/08 without evidence of vegetation. CPK level for a.m. Maintain oxygen saturation 88-92% with history of COPD -For episode of hypotension with tachycardia in the setting of known infection will give IV fluid and monitor. CODE STATUS: Full code DVT prophylaxis: Lovenox subcu Disposition: Awaiting transfer out of medical ICU Progress Note: Quality VTE Deep Vein Thrombosis/Pulmonary Embolism Present on Admission: No
[2018-04-22] MEDS: Chlorhexidine 0.12% Oral Kit 15 ML UDC OROPHARYNG SCH ×2 (09:48→21:31)
[2018-04-22] MEDS: Famotidine 20 MG Tablet PO SCH ×2 (09:48→21:32)
[2018-04-22] MEDS: Mupirocin 2% Nasal Oint Topical Syringe EACH NARE SCH ×2 (09:48→21:31)
[2018-04-22] MEDS: Sodium Chloride 0.9% 2 ML Flush BID IV.FLUSH SCH ×2 (09:49→21:31)
[2018-04-22] MEDS: Sennosides Liq 8.8 MG/5 ML UDC PO SCH (09:53)
[2018-04-22] MEDS: Docusate Sodium 100 MG Capsule PO SCH ×2 (09:54→22:14)
[2018-04-22] MEDS: Morphine Inj 4 MG/ML Vial IV.PUSH PRN (10:13)
[2018-04-22] MEDS: Metoprolol Tartrate 25 MG Tablet PO SCH ×2 (12:42→21:31)
[2018-04-22] MEDS: DAPTOmycin Inj 1,000 MG in Sodium Chlor 0.9% Inj 100 ML IV.SIG SCH (14:01)
[2018-04-22] MEDS ORDERED: Sod Chloride 0.9% Inj 1,000 ML IV.SIG SCH (15:03)
--- NOTE | 2018-04-22 16:31 | P.PNID ---
Subjective Remarks: doing well co L side chest pain no fever on NC O2 Antibiotics: daptomycin zyvox teflaro added 04/16 Lines: Line sites okay Past Medical History: COPD Allergies/Adverse Reactions: Allergies bee venom protein (honey bee) Allergy (Unknown, Verified 04/05/18 21:12) Edema vancomycin Allergy (Verified 04/05/18 23:33) Anaphylaxis Objective Vital Signs 04/21/18 16:39 04/21/18 17:00 04/21/18 17:04 Temperature Pulse Rate 109 H 113 H Respiratory Rate 22 20 18 Blood Pressure 102/64 Pulse Oximetry 99 94 L 97 04/21/18 17:31 04/21/18 18:00 04/21/18 19:00 Temperature Pulse Rate 107 H 112 H Respiratory Rate 20 25 H 24 Blood Pressure Pulse Oximetry 95 95 04/21/18 19:53 04/21/18 20:00 04/21/18 20:16 Temperature 98.4 F Pulse Rate 121 H 115 H 117 H Respiratory Rate 25 H 29 H 16 Blood Pressure 104/69 97/52 L Pulse Oximetry 96 94 L 93 L 04/21/18 21:00 04/21/18 22:00 04/21/18 23:00 Temperature Pulse Rate 116 H 111 H 118 H Respiratory Rate 22 25 H 10 L Blood Pressure 109/69 114/67 Pulse Oximetry 92 L 94 L 94 L 04/21/18 23:54 04/22/18 00:00 04/22/18 01:00 Temperature 98.8 F Pulse Rate 123 H 118 H Respiratory Rate 7 L 24 Blood Pressure 103/58 L Pulse Oximetry 91 L 92 L 91 L 04/22/18 02:00 04/22/18 03:00 04/22/18 04:00 Temperature Pulse Rate 126 H 121 H 120 H Respiratory Rate 28 H 29 H 25 H Blood Pressure 103/65 Pulse Oximetry 91 L 94 L 95 04/22/18 07:00 04/22/18 08:00 04/22/18 09:00 Temperature 97.1 F L Pulse Rate 110 H 107 H 118 H Respiratory Rate 22 24 27 H Blood Pressure 105/66 Pulse Oximetry 93 L 94 L 97 04/22/18 10:00 04/22/18 11:00 04/22/18 11:51 Temperature Pulse Rate 146 H 129 H Respiratory Rate 26 H 33 H Blood Pressure Pulse Oximetry 92 L 95 97 04/22/18 12:00 04/22/18 12:10 04/22/18 13:00 Temperature 97.4 F L Pulse Rate 124 H 129 H 131 H Respiratory Rate 28 H 30 H 34 H Blood Pressure 105/63 Pulse Oximetry 96 96 95 04/22/18 13:21 04/22/18 14:00 04/22/18 14:02 Temperature Pulse Rate 127 H 121 H 120 H Respiratory Rate 31 H 33 H 34 H Blood Pressure 95/61 L 85/59 L Pulse Oximetry 96 98 96 04/22/18 14:30 04/22/18 15:26 Temperature Pulse Rate 106 H Respiratory Rate 25 H 25 H Blood Pressure Pulse Oximetry Intake & Output 04/21/18 04/22/18 04/22/18 18:59 06:59 18:59 Intake Total 1620 / 1620 1120 / 1120 Output Total 800 / 800 1300 / 1300 Balance 820 / 820 -180 / -180 Weight 79 kg Intake: IV 900 / 900 400 / 400 Teflaro Inj 600 MG In NS Inj 200 / 200 100 / 100 100 ML @ 100 mls/hr IV.SIG Q12H [facility] Rx#:[id number] Cubicin Inj 1,000 MG In NS Inj 100 / 100 100 ML @ 200 mls/hr IV.SIG Q24H [facility] Rx#:[id number] Zyvox 600 mg Premix 300 ML @ 600 / 600 300 / 300 300 mls/hr IV.SIG Q12H [facility] Rx#: [id number] Oral 720 / 720 720 / 720 Output: Urine 800 / 800 1250 / 1250 Chest Tube Drainage 50 / 50 Left 50 / 50 Other: Date of Last Bowel Movement 04/19/18 04/19/18 04/20/18 # Bowel Movements 0 04/16/18 04:39 Blood - Peripheral Aerobic Blood Culture - Final No growth in 5 days 04/16/18 04:39 Blood - Peripheral Anaerobic Blood Culture - Final No growth in 5 days 04/16/18 04:27 Blood - Peripheral Aerobic Blood Culture - Final No growth in 5 days 04/16/18 04:27 Blood - Peripheral Anaerobic Blood Culture - Final No growth in 5 days Lab - Hematology Results 04/21/18 10:05 WBC 9.9 RBC 4.24 L Hgb 12.7 L Hct 38.0 L MCV 89.7 MCH 29.9 MCHC 33.4 RDW 14.0 Plt Count 299 MPV 9.2 Neut % (Auto) 84.8 H Lymph % (Auto) 8.3 L [place] % (Auto) 5.3 Eos % (Auto) 1.1 Baso % (Auto) 0.5 Neut # (Auto) 8.4 H Lymph # (Auto) 0.8 L [place] # (Auto) 0.5 Eos # (Auto) 0.1 Baso # (Auto) 0.1 WBC Differential . Differential Comment Auto diff final Lab - Chemistry Results 04/19/18 04/19/18 04/20/18 06:05 18:36 01:06 POC Glucose 100 125 H 109 04/20/18 04/20/18 04/20/18 06:28 13:30 23:17 POC Glucose 89 110 109 04/21/18 04/21/18 04/21/18 04:14 11:32 17:16 POC Glucose 96 89 101 Imaging: ITS Impressions Face CT 04/06/18 00:00 CONCLUSION: 1. Small focal area of soft tissue swelling involving the lateral orbital margin on the left. No abscess. Abdomen/Pelvis CT 04/10/18 00:00 CONCLUSION: 1. Findings in the patient's chest discussed on the patient's chest CT. 2. Left renal stone without hydronephrosis. 3. Slight AAA. 4. Possible gallstones within the gallbladder. 5. There is slight fluid within the peritoneal cavity in the pelvis and within left perinephric space and stranding densities involving the Gerota's fascia on the left side. The exact etiology is not certain could be inflammatory, and there is no hydronephrosis. Head MRI 04/12/18 00:00 CONCLUSION: 1. Some chronic changes with mild cortical and central atrophy. Minimal periventricular and scattered deep white matter tract areas of small vessel ischemic demyelination. 2. Some fluid or secretions identified in the dependent portion of the nasopharynx. 3. Otherwise negative. No findings of intracranial mass lesion/abscess. Lumbar Spine MRI 04/12/18 00:00 CONCLUSION: 1. No evidence of epidural abscess. 2. Grade 1 anterolisthesis at L5-S1 with associated discogenic degenerative changes and bilateral pars defects. There is significant bilateral bony neural foraminal stenosis with bilateral neural impingement. 3. Asymmetric ligamentum flavum hypertrophy on the right side at the L4-5 level flattens the dorsal lateral aspect of the thecal sac. Neural foramen remain patent. 4. Suggestion of distended urinary bladder, incompletely imaged in the field-of -view. Thoracic Spine MRI 04/12/18 00:00 CONCLUSION: 1. Small bilateral pleural effusions. 2. Spinal canal is widely patent throughout without cord compromise. No findings of a paravertebral abscess. Abdomen X-Ray 04/12/18 09:42 CONCLUSION: No evidence of ileus. Gallium Scan Nuclear Medicine 04/13/18 00:00 CONCLUSION: 1. There is abnormal uptake in the lungs corresponding to cavitary lesions probably lung abscesses and areas of consolidation seen on the patient's prior chest CT. Chest CT 04/16/18 10:15 CONCLUSION: 1. A 23 mm left sided pneumothorax is identified. 2. Multiple cavitary lesions are again noted and slightly worse in appearance than on the previous examination. 3. Consolidation of the right upper lobe is again noted and [demonstrates] worsening cavitation. 4. Increased cavitation of the large left upper lobe lesion also. 5. Small partially loculated pleural effusions are noted. 6. Bibasilar alveolar consolidations are noted posteriorly consistent with probable atelectasis. 7. Tiny pericardial effusion is noted. 8. Degenerative changes are noted throughout the thoracic and upper lumbar spine. Chest X-Ray 04/22/18 07:00 CONCLUSION: No significant change compared to 04/20/2018. Physical Exam: GENERAL: NAD comfortable SKIN: Warm and dry. No rash HEAD: Atraumatic. Normocephalic. EYES: Pupils equal and round. No scleral icterus. No injection or drainage. ENT: No nasal bleeding or discharge. Mucous membranes pink and moist. NECK: Trachea midline. No JVD. CARDIOVASCULAR: Regular rate and rhythm. RESPIRATORY: No accessory muscle use. clear to auscultation. Breath sounds equal bilaterally. L sided CT in place with serosang fluid GASTROINTESTINAL: Abdomen soft, non-tender, nondistended. MUSCULOSKELETAL: Extremities without clubbing, mi.ld toes cyanosis no significant edema. 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
--- NOTE | 2018-04-22 17:20 | P.PNPL ---
Subjective Interval history: 72 YOWM with MRSA Pn, cavitary lesion, COPD, Lt ptx Left chest tube to suction mild sob Congested, not bringing up sp No Fever On 2LNC Chest tube draining Physical Exam Vital signs: Vital Signs 04/21/18 17:31 04/21/18 18:00 04/21/18 19:00 Temperature Pulse Rate 107 H 112 H Respiratory Rate 20 25 H 24 Blood Pressure Pulse Oximetry 95 95 04/21/18 19:53 04/21/18 20:00 04/21/18 20:16 Temperature 98.4 F Pulse Rate 121 H 115 H 117 H Respiratory Rate 25 H 29 H 16 Blood Pressure 104/69 97/52 L Pulse Oximetry 96 94 L 93 L 04/21/18 21:00 04/21/18 22:00 04/21/18 23:00 Temperature Pulse Rate 116 H 111 H 118 H Respiratory Rate 22 25 H 10 L Blood Pressure 109/69 114/67 Pulse Oximetry 92 L 94 L 94 L 04/21/18 23:54 04/22/18 00:00 04/22/18 01:00 Temperature 98.8 F Pulse Rate 123 H 118 H Respiratory Rate 7 L 24 Blood Pressure 103/58 L Pulse Oximetry 91 L 92 L 91 L 04/22/18 02:00 04/22/18 03:00 04/22/18 04:00 Temperature Pulse Rate 126 H 121 H 120 H Respiratory Rate 28 H 29 H 25 H Blood Pressure 103/65 Pulse Oximetry 91 L 94 L 95 04/22/18 07:00 04/22/18 08:00 04/22/18 09:00 Temperature 97.1 F L Pulse Rate 110 H 107 H 118 H Respiratory Rate 22 24 27 H Blood Pressure 105/66 Pulse Oximetry 93 L 94 L 97 04/22/18 10:00 04/22/18 11:00 04/22/18 11:51 Temperature Pulse Rate 146 H 129 H Respiratory Rate 26 H 33 H Blood Pressure Pulse Oximetry 92 L 95 97 04/22/18 12:00 04/22/18 12:10 04/22/18 13:00 Temperature 97.4 F L Pulse Rate 124 H 129 H 131 H Respiratory Rate 28 H 30 H 34 H Blood Pressure 105/63 Pulse Oximetry 96 96 95 04/22/18 13:21 04/22/18 14:00 04/22/18 14:02 Temperature Pulse Rate 127 H 121 H 120 H Respiratory Rate 31 H 33 H 34 H Blood Pressure 95/61 L 85/59 L Pulse Oximetry 96 98 96 04/22/18 14:30 04/22/18 15:26 Temperature Pulse Rate 106 H Respiratory Rate 25 H 25 H Blood Pressure Pulse Oximetry Intake & Output 04/21/18 04/22/18 04/22/18 18:59 06:59 18:59 Intake Total 1620 / 1620 1120 / 1120 Output Total 800 / 800 1300 / 1300 Balance 820 / 820 -180 / -180 Weight 79 kg Intake: IV 900 / 900 400 / 400 Teflaro Inj 600 MG In NS Inj 200 / 200 100 / 100 100 ML @ 100 mls/hr IV.SIG Q12H [facility] Rx#:[id number] Cubicin Inj 1,000 MG In NS Inj 100 / 100 100 ML @ 200 mls/hr IV.SIG Q24H [facility] Rx#:[id number] Zyvox 600 mg Premix 300 ML @ 600 / 600 300 / 300 300 mls/hr IV.SIG Q12H [facility] Rx#: [id number] Oral 720 / 720 720 / 720 Output: Urine 800 / 800 1250 / 1250 Chest Tube Drainage 50 / 50 Left 50 / 50 Other: Date of Last Bowel Movement 04/19/18 04/19/18 04/20/18 # Bowel Movements 0 GENERAL: Elderly WM, weak, NAD SKIN: Warm and dry. HEAD: Normocephalic. EYES: No scleral icterus. No injection or drainage. NECK: Supple, trachea midline. No JVD or lymphadenopathy. CARDIOVASCULAR: Regular rate and rhythm without murmurs, gallops, or rubs. RESPIRATORY: Breath sounds equal bilaterally. No accessory muscle use. Left Chest tube draining GASTROINTESTINAL: Abdomen soft, non-tender, nondistended. MUSCULOSKELETAL: No cyanosis, or edema. BACK: Nontender without obvious deformity. No CVA tenderness. - Urinary Catheter Management Indwelling Urethral Catheter Cath placed during this visit: yes, but has since been removed by the nurse Reason for continuing: Acute urinary retention Insertion date: 04/05/18 Insertion time: 23:00 Removal date: 04/12/18 Removal time: 08:30 Condom Cath placed during this visit: no Reason for continuing: Acute urinary retention Straight Cath placed during this visit: yes Reason for continuing: Acute urinary retention Insertion date: 04/08/18 Insertion time: 18:00 Assessment and Plan - Plan IMPRESSION: 1. MRSA pneumonia. 2. Cavitary pneumonia. 4. Chronic obstructive pulmonary disease. 5. Hypotension. 6. Left pneumothorax, status post chest tube. 7. Nicotine use. PLAN: Cont Abx per ID Ceftaroline, Zyvox, Daptomycin Aerosol nebs Supplement 02 SQ lovenox Chest tube to suction Encourage to use Acapella
[2018-04-22] MEDS: Linezolid 600 MG Tablet PO SCH (21:32)
[2018-04-22] MEDS: Enoxaparin Inj 40 MG/0.4 ML Syringe SQ SCH (23:03)
[2018-04-23] MEDS: Oral Hygiene Kit OROPHARYNG SCH ×5 (01:36→23:49)
[2018-04-23] MEDS: Artificial Tears Opth Drops 15 ML Bottle EACH EYE SCH ×3 (06:16→20:10)
[2018-04-23] MEDS: Chlorhexidine 0.12% Oral Kit 15 ML UDC OROPHARYNG SCH ×2 (09:19→20:12)
[2018-04-23] MEDS: Metoprolol Tartrate 25 MG Tablet PO SCH ×2 (09:24→20:12)
[2018-04-23] MEDS: Linezolid 600 MG Tablet PO SCH ×2 (09:25→20:10)
[2018-04-23] MEDS: Sodium Chloride 0.9% 2 ML Flush BID IV.FLUSH SCH ×2 (09:25→20:09)
[2018-04-23] MEDS: Sennosides Liq 8.8 MG/5 ML UDC PO SCH (09:25)
[2018-04-23] MEDS: Famotidine 20 MG Tablet PO SCH ×2 (09:25→20:09)
[2018-04-23] MEDS: Docusate Sodium 100 MG Capsule PO SCH ×2 (09:25→20:08)
[2018-04-23] MEDS: Mupirocin 2% Nasal Oint Topical Syringe EACH NARE SCH ×2 (09:25→20:08)
[2018-04-23 09:58] LABS: Hematocrit 34.8 % (39.0-51.0); Hemoglobin 11.8 gm/dL (13.0-17.0); Mean Corpuscular Hemoglobin 30.2 pg (27.0-34.0); Platelet Count 223 th/mm3 (150-450); Red Blood Count 3.91 mil/mm3 (4.50-5.90); White Blood Count 8.5 th/mm3 (4.0-11.0)
[2018-04-23 10:22] LABS: Anion Gap 5 meq/L (5-15); Blood Urea Nitrogen 14 mg/dL (7-18); Carbon Dioxide 31.7 meq/L (21.0-32.0); Chloride 101 meq/L (98-107); Glomerular Filtration Rate Greater Than 89 mL/min (>89); Glucose,Random 103 mg/dL (74-106); Magnesium 1.8 mg/dL (1.5-2.5); Potassium 3.7 meq/L (3.5-5.1); Sodium 138 meq/L (136-145)
[2018-04-23 10:26] LABS: Creatine Kinase 57 U/L (39-308)
--- NOTE | 2018-04-23 12:40 | P.PNIM ---
Subjective Interval history: Patient seen and evaluated this morning on follow-up for MRSA pneumonia. Patient did sign denies subjective fever but does report that he felt sweaty a little bit overnight. Patient does report that he has cough and is bringing up scant sputum. Patient denied noticing any particular wheeze. Patient reports that he was able to work with physical therapy yesterday. Physical Exam Vital signs: Vital Signs 04/22/18 13:00 04/22/18 13:21 04/22/18 14:00 Temperature Pulse Rate 131 H 127 H 121 H Respiratory Rate 34 H 31 H 33 H Blood Pressure 95/61 L Pulse Oximetry 95 96 98 04/22/18 14:02 04/22/18 14:30 04/22/18 15:00 Temperature Pulse Rate 120 H 105 H Respiratory Rate 34 H 25 H 24 Blood Pressure 85/59 L Pulse Oximetry 96 97 04/22/18 15:16 04/22/18 15:26 04/22/18 16:00 Temperature 98.1 F Pulse Rate 115 H 106 H 96 H Respiratory Rate 31 H 25 H 18 Blood Pressure 119/87 100/75 Pulse Oximetry 97 96 04/22/18 17:00 04/22/18 18:00 04/22/18 19:00 Temperature Pulse Rate 86 86 101 H Respiratory Rate 18 10 L 28 H Blood Pressure Pulse Oximetry 100 99 96 04/22/18 19:43 04/22/18 20:00 04/22/18 21:00 Temperature 98.8 F Pulse Rate 97 H 97 H 103 H Respiratory Rate 22 31 H 25 H Blood Pressure 88/55 L Pulse Oximetry 99 97 96 04/22/18 22:00 04/22/18 23:00 04/23/18 00:00 Temperature 98.8 F Pulse Rate 104 H 98 H 96 H Respiratory Rate 34 H 30 H 31 H Blood Pressure 95/53 L Pulse Oximetry 96 96 96 04/23/18 00:20 04/23/18 01:00 04/23/18 02:00 Temperature Pulse Rate 97 H 98 H 100 H Respiratory Rate 24 27 H 28 H Blood Pressure Pulse Oximetry 92 L 92 L 04/23/18 03:00 04/23/18 04:00 04/23/18 04:02 Temperature 98.8 F Pulse Rate 104 H 109 H 109 H Respiratory Rate 26 H 28 H 22 Blood Pressure 100/58 L Pulse Oximetry 94 L 87 L 04/23/18 05:00 04/23/18 06:00 04/23/18 07:00 Temperature Pulse Rate 111 H 115 H 100 H Respiratory Rate 27 H 30 H 23 Blood Pressure Pulse Oximetry 98 95 97 04/23/18 07:54 04/23/18 08:00 04/23/18 08:30 Temperature 99.1 F Pulse Rate 109 H 113 H Respiratory Rate 24 25 H Blood Pressure 101/60 Pulse Oximetry 97 94 L 98 04/23/18 08:35 04/23/18 09:00 04/23/18 10:00 Temperature Pulse Rate 99 H 110 H 100 H Respiratory Rate 26 H 24 Blood Pressure Pulse Oximetry 95 96 04/23/18 10:44 04/23/18 10:48 04/23/18 10:50 Temperature Pulse Rate 97 H 97 H 97 H Respiratory Rate 26 H 26 H 28 H Blood Pressure 91/60 L 84/59 L 96/61 L Pulse Oximetry 96 95 94 L 04/23/18 10:57 04/23/18 11:00 04/23/18 11:46 Temperature Pulse Rate 97 H 98 H 89 Respiratory Rate 22 25 H 20 Blood Pressure 96/63 L 90/64 L Pulse Oximetry 95 95 04/23/18 12:25 Temperature Pulse Rate 92 H Respiratory Rate Blood Pressure Pulse Oximetry Intake & Output 04/22/18 04/23/18 04/23/18 18:59 06:59 18:59 Intake Total 1400 / 1400 2000 / 2000 Output Total 1150 / 1150 1150 / 1150 Balance 250 / 250 850 / 850 Weight 79 kg Intake: IV 200 / 200 1400 / 1400 Teflaro Inj 600 MG In NS Inj 100 / 100 100 / 100 100 ML @ 100 mls/hr IV.SIG Q12H [facility] Rx#:[id number] Cubicin Inj 1,000 MG In NS Inj 100 / 100 100 ML @ 200 mls/hr IV.SIG Q24H [facility] Rx#:[id number] Zyvox 600 mg Premix 300 ML @ 300 / 300 300 mls/hr IV.SIG Q12H [facility] Rx#: [id number] NS Inj 1,000 ML @ 1000 mls/hr 1000 / 1000 IV.SIG BOLUS [facility] Rx#:[id number] Oral 1200 / 1200 600 / 600 Output: Urine 1150 / 1150 1150 / 1150 Chest Tube Drainage 0 / 0 Left 0 / 0 Other: Date of Last Bowel Movement 04/20/18 04/20/18 04/20/18 general: No acute distress, conversational HEENT: EOMI Cardiovascular: S1/S2. No tachycardia noted Respiratory: No wheeze, no intercostal muscle use. Relatively clear to auscultation Gastroenterology: Soft, nontender, nondistended, no guarding or rebound appreciated Muscular skeletal: Left chest wall chest tube in place with serosanguineous drainage. Currently set to suction Extremity: No lower extremity edema or calf tenderness Urinary Catheter Management Indwelling Urethral Catheter: Cath placed during this visit: yes, but has since been removed by the nurse Reason for continuing: Acute urinary retention Insertion date: 04/05/18 Insertion time: 23:00 Removal date: 04/12/18 Removal time: 08:30 Condom: Cath placed during this visit: no Reason for continuing: Acute urinary retention Straight: Cath placed during this visit: yes Reason for continuing: Acute urinary retention Insertion date: 04/08/18 Insertion time: 18:00 Results Labs CBC & Chem 7: 04/23/18 08:53 04/23/18 08:53 Procedures Procedures: DEEDEE Chest tube Assessment and Plan Plan Patient is a 72-year-old male with past medical history COPD and hypertension who presented with shortness of breath noted to have lung consolidation and cultures positive for MRSA pneumonia. Neurology: Acute metabolic encephalopathy Suspected to be in the setting of sepsis. Currently resolved MRI brain reviewed. Small chronic changes no acute finding of lesions or abscess Critical care/pulmonary: Acute hypoxic respiratory failure, left-sided pneumothorax w/ LEFT sided chest tube, MRSA pneumonia, prior MRSA bacteremia., COPD Patient status post extubation in the ICU on 04/13. Suspected to have occurred in the setting of anaphylactic reaction to vancomycin. Pulmonary consulted recommendations appreciated Continue chest tube on left side set to suction. Left lower lobe 1.5 cm pulmonary nodule recommend outpatient PET scan on follow -up Continue DuoNeb every [address] imaging reviewed via EMR. Consolidation of right upper lobe noted. Increased cavitation of the large left upper lobe lesion seen. Antibiotics: linezolid p.o., and daptomycin (complete on 04/26) As recommended by infectious disease will repeat CT chest next week Infectious disease consulted recommendations appreciated MRSA bacteremia on 04/05, 04/07. DEEDEE on 04/08 without evidence of vegetation. CPK level for a.m. Maintain oxygen saturation 88-92% with history of COPD Tachycardia improved today. Chest x-ray on 04/22 no significant change compared to 04/20. CODE STATUS: Full code DVT prophylaxis: Lovenox subcu Disposition: Awaiting transfer out of medical ICU Progress Note: Quality VTE Deep Vein Thrombosis/Pulmonary Embolism Present on Admission: No
[2018-04-23] MEDS: DAPTOmycin Inj 1,000 MG in Sodium Chlor 0.9% Inj 100 ML IV.SIG SCH (12:50)
--- NOTE | 2018-04-23 17:01 | P.PNPL ---
Subjective Interval history: 72 YOWM with MRSA Pn, cavitary lesion, COPD, Lt ptx Left chest tube to suction mild sob Congested, not bringing up sp No Fever On 2LNC No drainage from chest tube no air leak Physical Exam Vital signs: Vital Signs 04/22/18 17:00 04/22/18 18:00 04/22/18 19:00 Temperature Pulse Rate 86 86 101 H Respiratory Rate 18 10 L 28 H Blood Pressure Pulse Oximetry 100 99 96 04/22/18 19:43 04/22/18 20:00 04/22/18 21:00 Temperature 98.8 F Pulse Rate 97 H 97 H 103 H Respiratory Rate 22 31 H 25 H Blood Pressure 88/55 L Pulse Oximetry 99 97 96 04/22/18 22:00 04/22/18 23:00 04/23/18 00:00 Temperature 98.8 F Pulse Rate 104 H 98 H 96 H Respiratory Rate 34 H 30 H 31 H Blood Pressure 95/53 L Pulse Oximetry 96 96 96 04/23/18 00:20 04/23/18 01:00 04/23/18 02:00 Temperature Pulse Rate 97 H 98 H 100 H Respiratory Rate 24 27 H 28 H Blood Pressure Pulse Oximetry 92 L 92 L 04/23/18 03:00 04/23/18 04:00 04/23/18 04:02 Temperature 98.8 F Pulse Rate 104 H 109 H 109 H Respiratory Rate 26 H 28 H 22 Blood Pressure 100/58 L Pulse Oximetry 94 L 87 L 04/23/18 05:00 04/23/18 06:00 04/23/18 07:00 Temperature Pulse Rate 111 H 115 H 100 H Respiratory Rate 27 H 30 H 23 Blood Pressure Pulse Oximetry 98 95 97 04/23/18 07:54 04/23/18 08:00 04/23/18 08:30 Temperature 99.1 F Pulse Rate 109 H 113 H Respiratory Rate 24 25 H Blood Pressure 101/60 Pulse Oximetry 97 94 L 98 04/23/18 08:35 04/23/18 09:00 04/23/18 10:00 Temperature Pulse Rate 99 H 110 H 100 H Respiratory Rate 26 H 24 Blood Pressure Pulse Oximetry 95 96 04/23/18 10:44 04/23/18 10:48 04/23/18 10:50 Temperature Pulse Rate 97 H 97 H 97 H Respiratory Rate 26 H 26 H 28 H Blood Pressure 91/60 L 84/59 L 96/61 L Pulse Oximetry 96 95 94 L 04/23/18 10:57 04/23/18 11:00 04/23/18 11:10 Temperature Pulse Rate 97 H 98 H 98 H Respiratory Rate 22 25 H 26 H Blood Pressure 96/63 L 90/64 L 108/67 Pulse Oximetry 95 95 97 04/23/18 11:20 04/23/18 11:30 04/23/18 11:40 Temperature Pulse Rate 92 H 89 86 Respiratory Rate 22 26 H 25 H Blood Pressure 113/65 109/68 97/64 L Pulse Oximetry 97 95 96 04/23/18 11:46 04/23/18 11:50 04/23/18 12:00 Temperature Pulse Rate 89 85 86 Respiratory Rate 20 26 H 29 H Blood Pressure 95/60 L 91/62 L Pulse Oximetry 97 97 04/23/18 12:12 04/23/18 12:25 04/23/18 13:00 Temperature 99.4 F Pulse Rate 93 H 92 H 97 H Respiratory Rate 27 H 28 H Blood Pressure 104/65 Pulse Oximetry 92 L 91 L 04/23/18 14:00 04/23/18 15:00 04/23/18 16:00 Temperature Pulse Rate 92 H 94 H 102 H Respiratory Rate 30 H 25 H 33 H Blood Pressure Pulse Oximetry 100 98 78 L 04/23/18 16:06 Temperature Pulse Rate 100 H Respiratory Rate Blood Pressure Pulse Oximetry Intake & Output 04/22/18 04/23/18 04/23/18 18:59 06:59 18:59 Intake Total 1400 / 1400 2000 / 2000 100 / 100 Output Total 1150 / 1150 1150 / 1150 Balance 250 / 250 850 / 850 100 / 100 Weight 79 kg Intake: IV 200 / 200 1400 / 1400 100 / 100 Teflaro Inj 600 MG In NS Inj 100 / 100 100 / 100 100 ML @ 100 mls/hr IV.SIG Q12H [facility] Rx#:[id number] Cubicin Inj 1,000 MG In NS Inj 100 / 100 100 / 100 100 ML @ 200 mls/hr IV.SIG Q24H [facility] Rx#:[id number] Zyvox 600 mg Premix 300 ML @ 300 / 300 300 mls/hr IV.SIG Q12H [facility] Rx#: [id number] NS Inj 1,000 ML @ 1000 mls/hr 1000 / 1000 IV.SIG BOLUS [facility] Rx#:[id number] Oral 1200 / 1200 600 / 600 Output: Urine 1150 / 1150 1150 / 1150 Chest Tube Drainage 0 / 0 Left 0 / 0 Other: Date of Last Bowel Movement 04/20/18 04/20/18 04/20/18 GENERAL: Elderly WM, NAD SKIN: Warm and dry. HEAD: Normocephalic. EYES: No scleral icterus. No injection or drainage. NECK: Supple, trachea midline. No JVD or lymphadenopathy. CARDIOVASCULAR: Regular rate and rhythm without murmurs, gallops, or rubs. RESPIRATORY: Breath sounds equal bilaterally. No accessory muscle use. left Chest tube in place GASTROINTESTINAL: Abdomen soft, non-tender, nondistended. MUSCULOSKELETAL: No cyanosis, or edema. BACK: Nontender without obvious deformity. No CVA tenderness. - Urinary Catheter Management Indwelling Urethral Catheter Cath placed during this visit: yes, but has since been removed by the nurse Reason for continuing: Acute urinary retention Insertion date: 04/05/18 Insertion time: 23:00 Removal date: 04/12/18 Removal time: 08:30 Condom Cath placed during this visit: no Reason for continuing: Acute urinary retention Straight Cath placed during this visit: yes Reason for continuing: Acute urinary retention Insertion date: 04/08/18 Insertion time: 18:00 Assessment and Plan - Plan IMPRESSION: 1. MRSA pneumonia. 2. Cavitary pneumonia. 4. Chronic obstructive pulmonary disease. 5. Hypotension. 6. Left pneumothorax, status post chest tube. 7. Nicotine use. PLAN: Cont Abx per ID Ceftaroline, Zyvox, Daptomycin Aerosol nebs Supplement 02 SQ lovenox Clamp chest tube CXR in AM Encourage to use Acapella
[2018-04-23] MEDS: Enoxaparin Inj 40 MG/0.4 ML Syringe SQ SCH (22:56)
[2018-04-24] MEDS: Oral Hygiene Kit OROPHARYNG SCH ×3 (06:21→17:14)
[2018-04-24] MEDS: Artificial Tears Opth Drops 15 ML Bottle EACH EYE SCH ×3 (06:21→20:07)
--- NOTE | 2018-04-24 06:35 | XR ---
EXAM DATE: 04/24/2018 5:58 AM EST AGE/SEX: 72 years / Male INDICATIONS: Pneumothorax. CLINICAL DATA: This is the patient's subsequent encounter. Patient reports that signs and symptoms h ave been present for 2 weeks and indicates a pain score of Nonresponsive. MEDICAL/SURGICAL HISTORY: Chronic obstructive pulmonary disease. Hypertension. MRSA. . Back s urgery. COMPARISON: [facility] [place], CHEST 1V SINGLE AP, 04/22/2018. . FINDINGS: Single view the chest with left-sided chest tube with its tip overlying the left hilum. There is mild pulmonary vascular congestion. Persistent elongated consolidation of the right upper lobe. There is quite tortuous. CONCLUSION: Elongated density in the right lung apex. Left chest tube in stable position. Electronically signed by: Chiki Yu MD Board Certified Radiologist 04/24/2018 6:33 AM EST
[2018-04-24 07:47] LABS: Hematocrit 33.5 % (39.0-51.0); Hemoglobin 11.3 gm/dL (13.0-17.0); Mean Corpuscular HGB Conc 33.8 % (32.0-36.0); Mean Corpuscular Hemoglobin 30.1 pg (27.0-34.0); Platelet Count 219 th/mm3 (150-450); Red Blood Count 3.76 mil/mm3 (4.50-5.90); White Blood Count 8.1 th/mm3 (4.0-11.0)
[2018-04-24 08:07] LABS: Anion Gap 7 meq/L (5-15); Blood Urea Nitrogen 11 mg/dL (7-18); Calcium 8.4 mg/dL (8.5-10.1); Carbon Dioxide 30.7 meq/L (21.0-32.0); Chloride 98 meq/L (98-107); Glomerular Filtration Rate Greater Than 89 mL/min (>89); Glucose,Random 93 mg/dL (74-106); Magnesium 1.8 mg/dL (1.5-2.5); Potassium 3.5 meq/L (3.5-5.1); Sodium 136 meq/L (136-145)
[2018-04-24] MEDS: Chlorhexidine 0.12% Oral Kit 15 ML UDC OROPHARYNG SCH ×2 (08:59→19:58)
[2018-04-24] MEDS: Linezolid 600 MG Tablet PO SCH ×2 (09:00→20:08)
[2018-04-24] MEDS: Docusate Sodium 100 MG Capsule PO SCH ×2 (09:00→20:06)
[2018-04-24] MEDS: Mupirocin 2% Nasal Oint Topical Syringe EACH NARE SCH ×2 (09:00→20:06)
[2018-04-24] MEDS: Sennosides Liq 8.8 MG/5 ML UDC PO SCH (09:00)
[2018-04-24] MEDS: Famotidine 20 MG Tablet PO SCH ×2 (09:00→20:07)
[2018-04-24] MEDS: Metoprolol Tartrate 25 MG Tablet PO SCH ×2 (09:00→20:06)
[2018-04-24] MEDS: Sodium Chloride 0.9% 2 ML Flush BID IV.FLUSH SCH ×2 (09:01→20:06)
--- NOTE | 2018-04-24 09:01 | P.PNIM ---
Subjective Interval history: Patient seen on f/u this morning for mrsa pneumonia no fever or chills no cp or sob CT was cllamped by pulm but approx 30 cc fluid in tubing just worked with PT and tachy to 120's but did not have morning meds bp 105/84 currently Physical Exam Vital signs: Vital Signs 04/23/18 09:00 04/23/18 10:00 04/23/18 10:44 Temperature Pulse Rate 110 H 100 H 97 H Respiratory Rate 26 H 24 26 H Blood Pressure 91/60 L Pulse Oximetry 95 96 96 04/23/18 10:48 04/23/18 10:50 04/23/18 10:57 Temperature Pulse Rate 97 H 97 H 97 H Respiratory Rate 26 H 28 H 22 Blood Pressure 84/59 L 96/61 L 96/63 L Pulse Oximetry 95 94 L 95 04/23/18 11:00 04/23/18 11:10 04/23/18 11:20 Temperature Pulse Rate 98 H 98 H 92 H Respiratory Rate 25 H 26 H 22 Blood Pressure 90/64 L 108/67 113/65 Pulse Oximetry 95 97 97 04/23/18 11:30 04/23/18 11:40 04/23/18 11:46 Temperature Pulse Rate 89 86 89 Respiratory Rate 26 H 25 H 20 Blood Pressure 109/68 97/64 L Pulse Oximetry 95 96 04/23/18 11:50 04/23/18 12:00 04/23/18 12:12 Temperature 99.4 F Pulse Rate 85 86 93 H Respiratory Rate 26 H 29 H 27 H Blood Pressure 95/60 L 91/62 L 104/65 Pulse Oximetry 97 97 92 L 04/23/18 12:25 04/23/18 13:00 04/23/18 14:00 Temperature Pulse Rate 92 H 97 H 92 H Respiratory Rate 28 H 30 H Blood Pressure Pulse Oximetry 91 L 100 04/23/18 15:00 04/23/18 16:00 04/23/18 16:06 Temperature Pulse Rate 94 H 102 H 100 H Respiratory Rate 25 H 33 H Blood Pressure Pulse Oximetry 98 78 L 04/23/18 16:40 04/23/18 17:00 04/23/18 18:00 Temperature Pulse Rate 88 97 H 97 H Respiratory Rate 19 26 H 25 H Blood Pressure Pulse Oximetry 99 95 04/23/18 19:00 04/23/18 19:35 04/23/18 20:00 Temperature 98.9 F Pulse Rate 102 H 104 H 100 H Respiratory Rate 31 H 28 H 28 H Blood Pressure 106/63 92/58 L Pulse Oximetry 93 L 94 L 98 04/23/18 20:35 04/23/18 21:00 04/23/18 22:00 Temperature Pulse Rate 104 H 107 H 90 Respiratory Rate 24 27 H 28 H Blood Pressure 96/50 L 93/59 L Pulse Oximetry 93 L 97 95 04/23/18 23:00 04/23/18 23:31 04/24/18 00:00 Temperature 98.8 F Pulse Rate 90 92 H 92 H Respiratory Rate 29 H 24 26 H Blood Pressure 100/61 99/65 L Pulse Oximetry 76 L 04/24/18 01:00 04/24/18 02:00 04/24/18 03:00 Temperature Pulse Rate 101 H 96 H 92 H Respiratory Rate 26 H 26 H 21 Blood Pressure 103/65 106/63 100/61 Pulse Oximetry 96 97 97 04/24/18 03:50 04/24/18 04:00 04/24/18 05:00 Temperature 98.9 F Pulse Rate 98 H 93 H 103 H Respiratory Rate 24 27 H 28 H Blood Pressure 112/67 91/55 L Pulse Oximetry 96 93 L 04/24/18 06:00 04/24/18 07:00 04/24/18 07:34 Temperature Pulse Rate 100 H 114 H Respiratory Rate 25 H 18 Blood Pressure 89/61 L Pulse Oximetry 95 94 L 04/24/18 08:32 Temperature Pulse Rate Respiratory Rate Blood Pressure Pulse Oximetry 93 L Intake & Output 04/23/18 04/24/18 04/24/18 18:59 06:59 18:59 Intake Total 1500 / 1500 550 / 550 Output Total 950 / 950 1250 / 1250 Balance 550 / 550 -700 / -700 Weight 77 kg Intake: IV 200 / 200 100 / 100 Teflaro Inj 600 MG In NS Inj 100 / 100 100 / 100 100 ML @ 100 mls/hr IV.SIG Q12H [facility] Rx#:[id number] Cubicin Inj 1,000 MG In NS Inj 100 / 100 100 ML @ 200 mls/hr IV.SIG Q24H [facility] Rx#:[id number] Oral 1300 / 1300 450 / 450 Output: Urine 950 / 950 1250 / 1250 Chest Tube Drainage 0 / 0 Left 0 / 0 Other: Date of Last Bowel Movement 04/20/18 04/20/18 # Bowel Movements 0 0 gen: nad, resting in chair s/p PT resp: insp crackle LEFT side and relatively clear RIGHT side gi: soft, non tender, non distended cvs: tachycardia, s1/s2 Urinary Catheter Management Indwelling Urethral Catheter: Cath placed during this visit: yes, but has since been removed by the nurse Reason for continuing: Acute urinary retention Insertion date: 04/05/18 Insertion time: 23:00 Removal date: 04/12/18 Removal time: 08:30 Condom: Cath placed during this visit: no Reason for continuing: Acute urinary retention Straight: Cath placed during this visit: yes Reason for continuing: Acute urinary retention Insertion date: 04/08/18 Insertion time: 18:00 Results Labs CBC & Chem 7: 04/24/18 06:35 04/24/18 06:35 Imaging Imaging: Impressions Chest X-Ray 04/24/18 07:01 CONCLUSION: Elongated density in the right lung apex. Left chest tube in stable position. Procedures Procedures: DEEDEE Chest tube Assessment and Plan Plan Patient is a 72-year-old male with past medical history COPD and hypertension who presented with shortness of breath noted to have lung consolidation and cultures positive for MRSA pneumonia. Neurology: Acute metabolic encephalopathy Suspected to be in the setting of sepsis. Currently resolved MRI brain reviewed. Small chronic changes no acute finding of lesions or abscess Critical care/pulmonary: Acute hypoxic respiratory failure, left-sided pneumothorax w/ LEFT sided chest tube, MRSA pneumonia, prior MRSA bacteremia., COPD Patient status post extubation in the ICU on 04/13. Suspected to have occurred in the setting of anaphylactic reaction to vancomycin. Pulmonary consulted recommendations appreciated Left lower lobe 1.5 cm pulmonary nodule recommend outpatient PET scan on follow -up Continue DuoNeb every [address] imaging reviewed via EMR. Consolidation of right upper lobe noted. Increased cavitation of the large left upper lobe lesion seen. Antibiotics: linezolid p.o., and daptomycin (complete on 04/26) As recommended by infectious disease will repeat CT chest next week Infectious disease consulted recommendations appreciated MRSA bacteremia on 04/05, 04/07. DEEDEE on 04/08 without evidence of vegetation. Maintain oxygen saturation 88-92% with history of COPD Tachycardia improved today. Chest x-ray on 04/22 no significant change compared to 04/20. - chest tube clamped as per pulmonary CODE STATUS: Full code DVT prophylaxis: Lovenox subcu Disposition: Awaiting transfer out of medical ICU Progress Note: Quality VTE Deep Vein Thrombosis/Pulmonary Embolism Present on Admission: No
--- NOTE | 2018-04-24 12:58 | XR ---
EXAM DATE: 04/24/2018 12:46 PM EST AGE/SEX: 72 years / Male INDICATIONS: Status post left chest tube removal. CLINICAL DATA: This is the patient's initial encounter. Patient reports that signs and symptoms have been present for 1 day and indicates a pain score of 2/10. MEDICAL/SURGICAL HISTORY: Chronic obstructive pulmonary disease. Hypertension. None. COMPARISON: [facility] [place]ST [place]AST, 04/16/2018. C, CHEST 1V SINGLE AP, 04/24/2018. [facility] [place] CHES T 1V SINGLE AP, 04/22/2018. C, CHEST 1V SINGLE AP, 04/20/2018. . FINDINGS: 2 AP views of the chest demonstrate a normal-sized cardiac silhouette. There is a stable partially ca vitary serpiginous abnormality at the right upper lobe. Another parenchymal opacity is appreciated in the left lower lung zone. Cavitary area in the left upper lobe is also stable. No pleural effusion i s identified. There is a tiny left apical pneumothorax. The bones demonstrate no acute abnormality. CONCLUSION: 1. Tiny left apical pneumothorax following left chest tube removal. 2. Bilateral cavitary lesions and airspace opacities are stable. Electronically signed by: Akash Odell MD Board Certified Radiologist 04/24/2018 12:57 PM EST
[2018-04-24] MEDS: DAPTOmycin Inj 1,000 MG in Sodium Chlor 0.9% Inj 100 ML IV.SIG SCH (13:03)
--- NOTE | 2018-04-24 15:00 | P.DIET ---
Nutritional Evaluation Type of nutrition evaluation: follow-up Nutrition consult regarding: Diet Evaluation Screening comments: 04/06/18 TF review Objective - Diagnosis respiratory failure, pneumonia, allergic reaction - Objective % IBW: 108 (IBW = 178lb) Body Weight Used for Calculations: Actual (88kg) Energy Needs - Lower Range (kCal/kg): 25 Energy Needs - Upper Range (kCal/kg): 30 Lower Limit kCal/kg (kCals): 2,200 Upper Limit kCal/kg (kCals): 2,640 Lower Limit Protein Factor (Grams per Kg): 1.1 Upper Limit Protein Factor (Grams per Kg): 1.3 Lower Protein Needs (Protein): 97 Upper Protein Needs (Protein): 114 Dietitian Reviewed in Medical Record: Curent medications, Intake & Output, Labs , Medical history, Tube feeding Diet Order: cardiac, 2gNa Oral Diet Intake Amount: Good 75-90% Speech Therapy Recommendations: Yes (regular, thin liquids) Objective Comments: PMH: COPD, hx of MRSA, HTN Labs: POC glucose 121 113 111 Skin: Pressure Ulcer (L Buttocks) Assessment Assessment: Pt continues on a cardiac, 2gNA diet. Spoke w/ IGLESIA Obrien about pts PO intake, per RN pt has a good appetite and consuming most meals. ST recs reviewed, pt is now able to tolerate regular solid foods and thin liquids. RD to recommend Ensure Enlive BID as PO supplement for additional nutrition. Encourage PO intake and provide feed assistance as needed. RD will continue to monitor pts nutritional status for a PO supplement. Continue to monitor PO intake. Labs reviewed, dietitian following. Recommendations: 1. ST recs reviewed, pt is now able to tolerate regular solid foods and thin liquids 2. RD to recommend Ensure Enlive BID as PO supplement for additional nutrition 3. Encourage PO intake and provide feed assistance as needed 4. Continue to monitor PO intake 5. Dietitian following Dietitian to Monitor: Lab values, Glucose level, Supplement acceptance, Intake & Output, Diet tolerance, Weight change, PO Intake, Medical course
--- NOTE | 2018-04-24 18:13 | P.PNPL ---
Subjective Interval history: 72 YOWM with MRSA Pn, cavitary lesion, COPD, Lt ptx mild sob Congested, not bringing up sp No Fever On 2LNC Chest tube removed CXR no PTX Physical Exam Vital signs: Vital Signs 04/23/18 19:00 04/23/18 19:35 04/23/18 20:00 Temperature 98.9 F Pulse Rate 102 H 104 H 100 H Respiratory Rate 31 H 28 H 28 H Blood Pressure 106/63 92/58 L Pulse Oximetry 93 L 94 L 98 04/23/18 20:35 04/23/18 21:00 04/23/18 22:00 Temperature Pulse Rate 104 H 107 H 90 Respiratory Rate 24 27 H 28 H Blood Pressure 96/50 L 93/59 L Pulse Oximetry 93 L 97 95 04/23/18 23:00 04/23/18 23:31 04/24/18 00:00 Temperature 98.8 F Pulse Rate 90 92 H 92 H Respiratory Rate 29 H 24 26 H Blood Pressure 100/61 99/65 L Pulse Oximetry 76 L 04/24/18 01:00 04/24/18 02:00 04/24/18 03:00 Temperature Pulse Rate 101 H 96 H 92 H Respiratory Rate 26 H 26 H 21 Blood Pressure 103/65 106/63 100/61 Pulse Oximetry 96 97 97 04/24/18 03:50 04/24/18 04:00 04/24/18 05:00 Temperature 98.9 F Pulse Rate 98 H 93 H 103 H Respiratory Rate 24 27 H 28 H Blood Pressure 112/67 91/55 L Pulse Oximetry 96 93 L 04/24/18 06:00 04/24/18 07:00 04/24/18 07:34 Temperature Pulse Rate 100 H 101 H Respiratory Rate 25 H 25 H Blood Pressure 89/61 L 108/59 L Pulse Oximetry 95 96 94 L 04/24/18 08:00 04/24/18 08:13 04/24/18 08:32 Temperature 98.5 F Pulse Rate 111 H 118 H Respiratory Rate 30 H 30 H Blood Pressure 100/60 105/58 L Pulse Oximetry 94 L 93 L 04/24/18 08:40 04/24/18 09:00 04/24/18 09:14 Temperature Pulse Rate 122 H 128 H Respiratory Rate 29 H Blood Pressure 117/61 Pulse Oximetry 92 L 96 04/24/18 10:00 04/24/18 11:00 04/24/18 12:03 Temperature 99.1 F Pulse Rate 95 H 92 H 94 H Respiratory Rate 30 H 28 H 37 H Blood Pressure 99/62 L 101/59 L Pulse Oximetry 99 98 95 04/24/18 12:07 04/24/18 12:18 04/24/18 13:00 Temperature Pulse Rate 92 H 90 92 H Respiratory Rate 28 H 34 H Blood Pressure 95/60 L Pulse Oximetry 94 L 96 04/24/18 15:00 04/24/18 16:23 Temperature Pulse Rate 93 H 92 H Respiratory Rate 18 Blood Pressure Pulse Oximetry Intake & Output 04/23/18 04/24/18 04/24/18 18:59 06:59 18:59 Intake Total 1500 / 1500 550 / 550 100 / 100 Output Total 950 / 950 1250 / 1250 Balance 550 / 550 -700 / -700 100 / 100 Weight 77 kg Intake: IV 200 / 200 100 / 100 100 / 100 Teflaro Inj 600 MG In NS Inj 100 / 100 100 / 100 100 / 100 100 ML @ 100 mls/hr IV.SIG Q12H [facility] Rx#:[id number] Cubicin Inj 1,000 MG In NS Inj 100 / 100 100 ML @ 200 mls/hr IV.SIG Q24H [facility] Rx#:[id number] Oral 1300 / 1300 450 / 450 Output: Urine 950 / 950 1250 / 1250 Chest Tube Drainage 0 / 0 Left 0 / 0 Other: Date of Last Bowel Movement 04/20/18 04/20/18 04/20/18 # Bowel Movements 0 0 GENERAL: Elderly Wm NAD SKIN: Warm and dry. HEAD: Normocephalic. EYES: No scleral icterus. No injection or drainage. NECK: Supple, trachea midline. No JVD or lymphadenopathy. CARDIOVASCULAR: Regular rate and rhythm without murmurs, gallops, or rubs. RESPIRATORY: Breath sounds equal bilaterally. No accessory muscle use. GASTROINTESTINAL: Abdomen soft, non-tender, nondistended. MUSCULOSKELETAL: No cyanosis, or edema. BACK: Nontender without obvious deformity. No CVA tenderness. - Urinary Catheter Management Indwelling Urethral Catheter Cath placed during this visit: yes, but has since been removed by the nurse Reason for continuing: Acute urinary retention Insertion date: 04/05/18 Insertion time: 23:00 Removal date: 04/12/18 Removal time: 08:30 Condom Cath placed during this visit: no Reason for continuing: Acute urinary retention Straight Cath placed during this visit: yes Reason for continuing: Acute urinary retention Insertion date: 04/08/18 Insertion time: 18:00 Assessment and Plan - Plan IMPRESSION: 1. MRSA pneumonia. 2. Cavitary pneumonia. 4. Chronic obstructive pulmonary disease. 5. Hypotension. 6. Left pneumothorax, status post chest tube. 7. Nicotine use. PLAN: Cont Abx per ID Ceftaroline, Zyvox, Daptomycin Aerosol nebs Supplement 02 SQ lovenox Encourage to use Acapella Stable after chest tube removal
[2018-04-24] MEDS: Morphine Inj 4 MG/ML Vial IV.PUSH PRN (21:36)
[2018-04-24 22:02] LABS: ABG Base Excess 7.3 mmol/L (-2-2); ABG PCO2 48 mmHg (38-42); ABG PO2 65 mmHG (61-120)
--- NOTE | 2018-04-24 22:03 | XR ---
EXAM DATE: 04/24/2018 9:54 PM EST AGE/SEX: 72 years / Male INDICATIONS: Shortness of breath. CLINICAL DATA: This is the patient's initial encounter. Patient reports that signs and symptoms have been present for 1 day and indicates a pain score of 0/10. MEDICAL/SURGICAL HISTORY: . Chronic obstructive pulmonary disease. Hypertension. MRSA. None. COMPARISON: [facility] – [place], CHEST 1V SINGLE AP, 04/24/2018. . FINDINGS: There is a moderate to large right sided pneumothorax. No significant mediastinal shift at this time. Redemonstration of bilateral cavitary lesions and airspace opacities similar to previous exam. Cardi omegaly mediastinal contours are stable. Remainder of exam is unchanged. CONCLUSION: 1. Moderate to large right-sided pneumothorax. Electronically signed by: Chetan Sullivan MD Board Certified Radiologist 04/24/2018 10:02 PM J CARLOS Ward
[2018-04-24] MEDS ORDERED: Ketamine Inj 50 MG/5 ML Syringe IV.PUSH ONE (22:27)
[2018-04-24] MEDS ORDERED: Midazolam Inj 5 MG/ML 1 ML Vial ONE (22:31)
[2018-04-24] MEDS ORDERED: Ketamine Inj 500 MG/10 ML Vial ONE ×3 (22:31→22:41)
--- NOTE | 2018-04-24 23:05 | P.PNCC ---
Subjective Subjective Remarks/Hospital Course: Patient is 72-year-old male with past medical history of COPD, tobacco abuse and hypertension who came to the emergency room for shortness of breath via EMS. On EMS arrival saturation was in the 90s, but patient had significant shortness of breath and dyspnea. Patient received Solu-Medrol 125 mg IV and breathing treatments by EMS and was brought to the emergency department. In the emergency department patient received further breathing treatments and chest x-ray showed patchy infiltrate on bilateral lung fitzgerald. Initially maintaining oxygen saturation with nasal cannula. Initial blood pressure was 85 /65, improved with normal saline boluses. WBC count was 17.1. Patient was deemed septic from pneumonia and patient was ordered to receive vancomycin and Zosyn. While receiving vancomycin patient acutely decompensated became extremely short of breath and developed erythematous maculopapular rash involving face torso armpits and groin region. Emergently intubated and placed on mechanical ventilation by the ED physician. Received IV 50 mg Benadryl. Critical care medicine was requested to admit the patient. I evaluated the patient immediately in the emergency department. Patient is intubated on Versed and fentanyl infusion however he is very asynchronous with the vent triggering ventilator alarms. Severe bilateral expiratory wheezing heard on auscultation. He has extensive skin rash predominantly face forehead torso armpit and groins. Appears like patient had anaphylactic reaction to vancomycin complicated by COPD exacerbation and pneumonia. I have ordered additional Solu-Medrol 100 mg x1 scheduled Benadryl and famotidine, antibiotics with cefepime and Levaquin. Increase Versed infusion, add propofol and use neuromuscular paralysis as needed. Will request pharmacy to add vancomycin to allergy. ED physician Dr. Slater had noticed that patient had some swelling on the left side of his face on arrival, however the skin rash after vancomycin was started was new. Patient remains hypotensive has received 2 L of normal saline in the emergency department and no significant urine output. I have ordered additional 2 L normal saline bolus and maintenance fluid at 84 mL/h. Use Levophed as needed to keep map above 65 Subjective 04/06: Off norepinephrine drip. Currently resting in bed in no acute distress on midazolam and fentanyl drips. Start tube feeding today. 04/07: Remains sedated, intubated on mechanical ventilation. Blood cultures growing MRSA 04/08: remains sedated and intubated. repeat cultures still growing MRSA 2/4 cultures. likely need to repeat BCx either today or tomorrow. agree with narrowing spectrum abx. performed DEEDEE at ID recommendation (need to r/o endocarditis), but no evidence of vegetations. remains hypoxic. off vasopressors today. 04/09: adequate auto-diuresis overnight. off vasopressors. on sedation vacation. hypoxia improving. 04/10 Patient remains intubated and sedated with Fentanyl infusion. Became tachycardic and tachypneic overnight requiring increase sedation. Afebrile. 04/11 Patient is intubated and sedated. Afebrile. 04/12 Patient remains intubated and sedated with Diprivan and Fentanyl infusion, Afebrile. 04/13: Sedated, easily arousable, orally intubated on mechanical ventilation. 04/14 Patient was extubated yesterday. Afebrile. 04/15 Patient is lying in bed in NAD. On 3L oxygen. Awake and alert. 04/16 Patient is on partial rebreather. Afebrile. Awake and alert. 04/17: Left-sided chest tube placed for pneumothorax yesterday. On nasal cannula currently. Awake and alert. Appears comfortable. No air leak noted in Pleur-evac 04/18: Remains on nasal cannula. No air leak noted from left-sided chest tube. 04/19: On 5 L nasal cannula. Chest tube in place, no air leak noted. Resting in bed comfortably, no acute distress. Continues to have productive cough. 04/20: Remains on nasal cannula. Chest tube in place, no air leak noted. Resting in bed comfortably. 04/24: RECONSULT NOTE: called emergently by Hospitalist team. patient with new acute respiratory distress. Chest x-ray demonstrates new large right-sided pneumothorax. I went to evaluate the patient is seen in significant distress. I emergently placed right-sided pigtail chest tube. Significant denney of air with no air leak on chest tube. Respiratory distress improved after chest tube placement. Repeat interval chest x-ray demonstrates good placement of chest tube with resolution of pneumothorax. Objective Vital Signs / I&O: Vital Signs 04/23/18 23:31 04/24/18 00:00 04/24/18 01:00 Temperature 37.1 C Pulse Rate 92 H 92 H 101 H Respiratory Rate 24 26 H 26 H Blood Pressure 99/65 L 103/65 Pulse Oximetry 96 04/24/18 02:00 04/24/18 03:00 04/24/18 03:50 Temperature Pulse Rate 96 H 92 H 98 H Respiratory Rate 26 H 21 24 Blood Pressure 106/63 100/61 Pulse Oximetry 97 97 04/24/18 04:00 04/24/18 05:00 04/24/18 06:00 Temperature 37.2 C Pulse Rate 93 H 103 H 100 H Respiratory Rate 27 H 28 H 25 H Blood Pressure 112/67 91/55 L 89/61 L Pulse Oximetry 96 93 L 95 04/24/18 07:00 04/24/18 07:34 04/24/18 08:00 Temperature 36.9 C Pulse Rate 101 H 111 H Respiratory Rate 25 H 30 H Blood Pressure 108/59 L 100/60 Pulse Oximetry 96 94 L 94 L 04/24/18 08:13 04/24/18 08:32 04/24/18 08:40 Temperature Pulse Rate 118 H 122 H Respiratory Rate 30 H Blood Pressure 105/58 L Pulse Oximetry 93 L 04/24/18 09:00 04/24/18 09:14 04/24/18 10:00 Temperature Pulse Rate 128 H 95 H Respiratory Rate 29 H 30 H Blood Pressure 117/61 99/62 L Pulse Oximetry 92 L 96 99 04/24/18 11:00 04/24/18 12:03 04/24/18 12:07 Temperature 37.3 C Pulse Rate 92 H 94 H 92 H Respiratory Rate 28 H 37 H 28 H Blood Pressure 101/59 L 95/60 L Pulse Oximetry 98 95 94 L 04/24/18 12:18 04/24/18 13:00 04/24/18 14:00 Temperature Pulse Rate 90 92 H 92 H Respiratory Rate 34 H 27 H Blood Pressure Pulse Oximetry 96 98 04/24/18 15:00 04/24/18 16:00 04/24/18 16:23 Temperature 36.8 C Pulse Rate 95 H 93 H 92 H Respiratory Rate 35 H 26 H Blood Pressure Pulse Oximetry 95 96 04/24/18 17:00 04/24/18 18:00 04/24/18 21:03 Temperature Pulse Rate 94 H 96 H 128 H Respiratory Rate 28 H 29 H 30 H Blood Pressure Pulse Oximetry 97 94 L 95 Intake & Output 04/24/18 04/24/18 04/25/18 06:59 18:59 06:59 Intake Total 550 / 550 1350 / 1350 Output Total 1250 / 1250 1125 / 1125 Balance -700 / -700 225 / 225 Weight 77 kg Intake: IV 100 / 100 200 / 200 Teflaro Inj 600 MG In NS Inj 100 / 100 100 / 100 100 ML @ 100 mls/hr IV.SIG Q12H [facility] Rx#:[id number] Cubicin Inj 1,000 MG In NS Inj 100 / 100 100 ML @ 200 mls/hr IV.SIG Q24H [facility] Rx#:[id number] Oral 450 / 450 1150 / 1150 Output: Urine 1250 / 1250 1125 / 1125 Chest Tube Drainage 0 / 0 Left 0 / 0 Other: Date of Last Bowel Movement 04/20/18 04/20/18 # Bowel Movements 0 1 Result Diagrams: 04/24/18 06:35 04/24/18 06:35 Objective Remarks: GENERAL: Patient is lying in bed in respiratory distress SKIN: Warm and dry. HEAD: Atraumatic. Normocephalic. EYES: Pupils equal and round. No scleral icterus. No injection or drainage. ENT: No nasal bleeding or discharge. Mucous membranes pink and moist. NECK: Trachea midline. No JVD. CARDIOVASCULAR: Regular rate and rhythm. sinus. RESPIRATORY: Significant accessory muscle use. Asymmetric chest wall excursion. Hyperresonant to percussion over the right chest wall. Absent breath sounds on the right. In respiratory distress. GASTROINTESTINAL: Abdomen soft, non-tender, nondistended. no guarding. MUSCULOSKELETAL: Extremities without clubbing, cyanosis, or edema. No obvious deformities. NEUROLOGICAL: Awake and alert. In distress. Moving all extremities. Follows commands. Assessment and Plan - Problem List (1) Anaphylaxis Code(s): T78.2XXA - Anaphylactic shock, unspecified, initial encounter Status : Acute (2) COPD with acute exacerbation Code(s): J44.1 - Chronic obstructive pulmonary disease with (acute) exacerbation Status: Acute (3) Bilateral pneumonia Code(s): J18.9 - Pneumonia, unspecified organism Status: Acute (4) Allergic reaction caused by a drug Code(s): T78.40XA - Allergy, unspecified, initial encounter Status: Acute (5) Acute respiratory failure Code(s): J96.00 - Acute respiratory failure, unspecified whether with hypoxia or hypercapnia Status: Acute (6) Severe sepsis Code(s): A41.9 - Sepsis, unspecified organism; R65.20 - Severe sepsis without septic shock Status: Acute (7) Leukocytosis Code(s): D72.829 - Elevated white blood cell count, unspecified Status: Acute (8) Hypotension Code(s): I95.9 - Hypotension, unspecified Status: Acute (9) Acute kidney injury Code(s): N17.9 - Acute kidney failure, unspecified Status: Acute (10) Hyponatremia Code(s): E87.1 - Hypo-osmolality and hyponatremia Status: Acute (11) Hyperglycemia Code(s): R73.9 - Hyperglycemia, unspecified Status: Acute (12) History of hypertension Code(s): Z86.79 - Personal history of other diseases of the circulatory system Status: Chronic (13) Tobacco abuse Code(s): Z72.0 - Tobacco use Status: Chronic (14) History of COPD Code(s): Z87.09 - Personal history of other diseases of the respiratory system Status: Chronic - Assessment and Plan Plan: Assessment: 72-year-old male with known necrotizing MRSA pneumonia and hypoxemia requiring supplemental oxygenation now with acute respiratory distress secondary to acute right pneumothorax. Status post emergent chest tube decompression. Critically ill. Clinically improved after acute intervention. Active problems: Large right-sided pneumothorax Acute respiratory distress Acute hypoxemia Plan: Status post emergent 10 Thai pigtail chest tube decompression Keep chest tube to suction Wean oxygen by nasal cannula for goal SPO2 greater than 90% Stable to return to hospitalist service in the a.m. 04/25. This patient remains critically ill with one or more organ systems which are or may become a threat to life. I have spent in excess of 31 minutes discontinuously in the care and management of this patient. This time is exclusive of procedures, and includes, but is not limited to, evaluation of the patient, review of the medical record, discussions with family, consultants, nursing staff, or respiratory therapy, and documentation in the medical record. Procedures - Chest Tube Chest Tube 1 Chest tube location: Mid-Axillary Chest Size of tube: 10 Tube sutured to skin: Yes Sterile dressing applied: Yes Anesthesia: 1% Lidocaine Volume anesthetic (mL): 5 Incision made with: #11 blade Post procedure: sutured to skin, sterile dressing applied Denney of air heard: Yes Post procedure CXR?: Yes Patient tolerated procedure: Yes Progress: Percutaneous Pigtail Tube Thoracostomy Procedure Note Right 10 Thai percutaneous pigtail chest tube Diagnosis: Right-sided acute pneumothorax Indications: Right-sided acute pneumothorax with respiratory distress Consent: Emergent Anesthesia: Versed 2.5 mg IV, ketamine 30 mill grams IV, 1% lidocaine locally Description of the Procedure: The patient was placed in the supine position. The arm was abducted above the head and secured. The right lateral chest was prepped and draped sterilely to include the axilla and nipple. 1% Lidocaine was infiltrated subcutaneously and into the tissues down to the periosteum of the rib. The 5th intercostal space was identified. A small incision was made using a #11 blade. At the mid-axillary line, a 10 Fr pigtail catheter with stylet and pencil point trochar introducer were inserted superior to the adjacent rib and the pigtail catheter was advanced over the trochar in a modified Seldinger Technique, easily and without resistance. The catheter was connected to a Pleur-o-vac and connected to [id number] suction. The catheter was sutured to the skin using a 3-0 silk sandal suture and an occlusive dressing was applied. There were no immediate complications noted. There was minimal EBL. The patient tolerated the procedure well. A Chest x-ray has been ordered. I personally performed the procedure. (1) Anaphylaxis Qualifiers: Encounter type: initial encounter Qualified Code(s): T78.2XXA - Anaphylactic shock, unspecified, initial encounter (3) Bilateral pneumonia Qualifiers: Pneumonia type: due to unspecified organism Lung location: unspecified part of lung Qualified Code(s): J18.9 - Pneumonia, unspecified organism (4) Allergic reaction caused by a drug Qualifiers: Encounter type: initial encounter Qualified Code(s): T78.40XA - Allergy, unspecified, initial encounter (5) Acute respiratory failure Qualifiers: Respiratory failure complication: unspecified whether with hypoxia or hypercapnia Qualified Code(s): J96.00 - Acute respiratory failure, unspecified whether with hypoxia or hypercapnia (7) Leukocytosis Qualifiers: Leukocytosis type: unspecified Qualified Code(s): D72.829 - Elevated white blood cell count, unspecified (8) Hypotension Qualifiers: Hypotension type: unspecified hypotension type Qualified Code(s): I95.9 - Hypotension, unspecified
--- NOTE | 2018-04-24 23:05 | P.PN ---
Physical Exam Vital signs: Vital Signs 04/23/18 23:31 04/24/18 00:00 04/24/18 01:00 Temperature 37.1 C Pulse Rate 92 H 92 H 101 H Respiratory Rate 24 26 H 26 H Blood Pressure 99/65 L 103/65 Pulse Oximetry 96 04/24/18 02:00 04/24/18 03:00 04/24/18 03:50 Temperature Pulse Rate 96 H 92 H 98 H Respiratory Rate 26 H 21 24 Blood Pressure 106/63 100/61 Pulse Oximetry 97 97 04/24/18 04:00 04/24/18 05:00 04/24/18 06:00 Temperature 37.2 C Pulse Rate 93 H 103 H 100 H Respiratory Rate 27 H 28 H 25 H Blood Pressure 112/67 91/55 L 89/61 L Pulse Oximetry 96 93 L 95 04/24/18 07:00 04/24/18 07:34 04/24/18 08:00 Temperature 36.9 C Pulse Rate 101 H 111 H Respiratory Rate 25 H 30 H Blood Pressure 108/59 L 100/60 Pulse Oximetry 96 94 L 94 L 04/24/18 08:13 04/24/18 08:32 04/24/18 08:40 Temperature Pulse Rate 118 H 122 H Respiratory Rate 30 H Blood Pressure 105/58 L Pulse Oximetry 93 L 04/24/18 09:00 04/24/18 09:14 04/24/18 10:00 Temperature Pulse Rate 128 H 95 H Respiratory Rate 29 H 30 H Blood Pressure 117/61 99/62 L Pulse Oximetry 92 L 96 99 04/24/18 11:00 04/24/18 12:03 04/24/18 12:07 Temperature 37.3 C Pulse Rate 92 H 94 H 92 H Respiratory Rate 28 H 37 H 28 H Blood Pressure 101/59 L 95/60 L Pulse Oximetry 98 95 94 L 04/24/18 12:18 04/24/18 13:00 04/24/18 14:00 Temperature Pulse Rate 90 92 H 92 H Respiratory Rate 34 H 27 H Blood Pressure Pulse Oximetry 96 98 04/24/18 15:00 04/24/18 16:00 04/24/18 16:23 Temperature 36.8 C Pulse Rate 95 H 93 H 92 H Respiratory Rate 35 H 26 H Blood Pressure Pulse Oximetry 95 96 04/24/18 17:00 04/24/18 18:00 04/24/18 21:03 Temperature Pulse Rate 94 H 96 H 128 H Respiratory Rate 28 H 29 H 30 H Blood Pressure Pulse Oximetry 97 94 L 95 Intake & Output 04/24/18 04/24/18 04/25/18 06:59 18:59 06:59 Intake Total 550 / 550 1350 / 1350 Output Total 1250 / 1250 1125 / 1125 Balance -700 / -700 225 / 225 Weight 77 kg Intake: IV 100 / 100 200 / 200 Teflaro Inj 600 MG In NS Inj 100 / 100 100 / 100 100 ML @ 100 mls/hr IV.SIG Q12H [facility] Rx#:[id number] Cubicin Inj 1,000 MG In NS Inj 100 / 100 100 ML @ 200 mls/hr IV.SIG Q24H [facility] Rx#:[id number] Oral 450 / 450 1150 / 1150 Output: Urine 1250 / 1250 1125 / 1125 Chest Tube Drainage 0 / 0 Left 0 / 0 Other: Date of Last Bowel Movement 04/20/18 04/20/18 # Bowel Movements 0 1 - Urinary Catheter Management Indwelling Urethral Catheter Cath placed during this visit: yes, but has since been removed by the nurse Reason for continuing: Acute urinary retention Insertion date: 04/05/18 Insertion time: 23:00 Removal date: 04/12/18 Removal time: 08:30 Condom Cath placed during this visit: no Reason for continuing: Acute urinary retention Straight Cath placed during this visit: yes Reason for continuing: Acute urinary retention Insertion date: 04/08/18 Insertion time: 18:00 Results - Labs CBC & Chem 7: 04/24/18 06:35 04/24/18 06:35 Laboratory Results - last 24 hr 04/24/18 04/24/18 04/24/18 06:35 06:35 21:49 WBC 8.1 RBC 3.76 L Hgb 11.3 L Hct 33.5 L MCV 89.0 MCH 30.1 MCHC 33.8 RDW 14.0 Plt Count 219 MPV 9.0 Puncture Site Right radial Patient Temperature 98.6 O2 Saturation 91 ABG pH 7.44 H ABG pCO2 48 H ABG pO2 65 ABG HCO3 32 H ABG O2 Content 15.6 ABG Base Excess 7.3 H ABG Methemoglobin 1.4 Manuel Test Present Hemoglobin 12.1 Carboxyhemoglobin 1.0 O2 Delivery Device Nasal cannula Liter Flow 4.00 Critical Value No Sodium 136 Potassium 3.5 Chloride 98 Carbon Dioxide 30.7 Anion Gap 7 BUN 11 Creatinine 0.47 L Estimated GFR Greater than 89 Random Glucose 93 Calcium 8.4 L Magnesium 1.8 - Imaging Impressions Chest X-Ray 04/24/18 00:00 CONCLUSION: 1. Moderate to large right-sided pneumothorax. Chest X-Ray 04/24/18 07:01 CONCLUSION: Elongated density in the right lung apex. Left chest tube in stable position. Chest X-Ray 04/24/18 11:47 CONCLUSION: 1. Tiny left apical pneumothorax following left chest tube removal. 2. Bilateral cavitary lesions and airspace opacities are stable. - Procedures DEEDEE Chest tube Assessment and Plan - Assessment (1) Anaphylaxis Code(s): T78.2XXA - Anaphylactic shock, unspecified, initial encounter Status : Acute (2) COPD with acute exacerbation Code(s): J44.1 - Chronic obstructive pulmonary disease with (acute) exacerbation Status: Acute (3) Bilateral pneumonia Code(s): J18.9 - Pneumonia, unspecified organism Status: Acute (4) Allergic reaction caused by a drug Code(s): T78.40XA - Allergy, unspecified, initial encounter Status: Acute (5) Acute respiratory failure Code(s): J96.00 - Acute respiratory failure, unspecified whether with hypoxia or hypercapnia Status: Acute (6) Severe sepsis Code(s): A41.9 - Sepsis, unspecified organism; R65.20 - Severe sepsis without septic shock Status: Acute (7) Leukocytosis Code(s): D72.829 - Elevated white blood cell count, unspecified Status: Acute (8) Hypotension Code(s): I95.9 - Hypotension, unspecified Status: Acute (9) Acute kidney injury Code(s): N17.9 - Acute kidney failure, unspecified Status: Acute (10) Hyponatremia Code(s): E87.1 - Hypo-osmolality and hyponatremia Status: Acute (11) Hyperglycemia Code(s): R73.9 - Hyperglycemia, unspecified Status: Acute (12) History of hypertension Code(s): Z86.79 - Personal history of other diseases of the circulatory system Status: Chronic (13) Tobacco abuse Code(s): Z72.0 - Tobacco use Status: Chronic (14) History of COPD Code(s): Z87.09 - Personal history of other diseases of the respiratory system Status: Chronic (1) Anaphylaxis Qualifiers: Encounter type: initial encounter Qualified Code(s): T78.2XXA - Anaphylactic shock, unspecified, initial encounter (3) Bilateral pneumonia Qualifiers: Pneumonia type: due to unspecified organism Lung location: unspecified part of lung Qualified Code(s): J18.9 - Pneumonia, unspecified organism (4) Allergic reaction caused by a drug Qualifiers: Encounter type: initial encounter Qualified Code(s): T78.40XA - Allergy, unspecified, initial encounter (5) Acute respiratory failure Qualifiers: Respiratory failure complication: unspecified whether with hypoxia or hypercapnia Qualified Code(s): J96.00 - Acute respiratory failure, unspecified whether with hypoxia or hypercapnia (7) Leukocytosis Qualifiers: Leukocytosis type: unspecified Qualified Code(s): D72.829 - Elevated white blood cell count, unspecified (8) Hypotension Qualifiers: Hypotension type: unspecified hypotension type Qualified Code(s): I95.9 - Hypotension, unspecified
--- NOTE | 2018-04-24 23:55 | XR ---
EXAM DATE: 04/24/2018 11:27 PM EST AGE/SEX: 72 years / Male INDICATIONS: Right sided chest tube placement, pneumothorax. CLINICAL DATA: This is the patient's subsequent encounter. Patient reports that signs and symptoms h ave been present for 3 weeks and indicates a pain score of 7/10. MEDICAL/SURGICAL HISTORY: Chronic obstructive pulmonary disease. Hypertension. MRSA. Chest tu be, right. [place] [facility] [place]. . FINDINGS: Patient has a right-sided chest tube placed with a small pigtail catheter. The large pneumothorax see n previously has resolved. Elongated infiltrate in the right upper lobe is unchanged. Left lung is re latively clear. CONCLUSION: Right-sided chest tube in good position. No significant residual pneumothorax is identified. Elongate d infiltrate right upper lobe is unchanged Electronically signed by: Chiki Yu MD Board Certified Radiologist 04/24/2018 11:54 PM EST
[2018-04-25] MEDS: Enoxaparin Inj 40 MG/0.4 ML Syringe SQ SCH ×2 (01:19→22:09)
[2018-04-25] MEDS: Oral Hygiene Kit OROPHARYNG SCH ×4 (01:20→18:00)
[2018-04-25] MEDS: Artificial Tears Opth Drops 15 ML Bottle EACH EYE SCH ×3 (05:48→21:16)
[2018-04-25] MEDS: Chlorhexidine 0.12% Oral Kit 15 ML UDC OROPHARYNG SCH ×2 (09:14→21:15)
[2018-04-25] MEDS: Sennosides Liq 8.8 MG/5 ML UDC PO SCH (09:14)
[2018-04-25] MEDS: Linezolid 600 MG Tablet PO SCH ×2 (09:15→21:18)
[2018-04-25] MEDS: Famotidine 20 MG Tablet PO SCH ×2 (09:16→21:15)
[2018-04-25] MEDS: Docusate Sodium 100 MG Capsule PO SCH ×2 (09:19→21:15)
[2018-04-25] MEDS: Sodium Chloride 0.9% 2 ML Flush BID IV.FLUSH SCH ×2 (09:19→21:16)
[2018-04-25] MEDS: Mupirocin 2% Nasal Oint Topical Syringe EACH NARE SCH ×2 (09:20→21:15)
[2018-04-25] MEDS: Metoprolol Tartrate 25 MG Tablet PO SCH ×2 (11:02→21:15)
[2018-04-25] MEDS: DAPTOmycin Inj 1,000 MG in Sodium Chlor 0.9% Inj 100 ML IV.SIG SCH (13:56)
--- NOTE | 2018-04-25 18:32 | P.PNIM ---
Subjective Interval history: patietn acute overnight with new chest pain and sob found to have a pneumo on RIGHT side ( not left) where chest tube was just removed. ICU inten. placed emergent chest tube. At 6:15pm notified patient with air leak on chest tube. will need to transfer to [facility] for monitoring. Physical Exam Vital signs: Vital Signs 04/24/18 19:00 04/24/18 19:57 04/24/18 20:00 Temperature 98.3 F Pulse Rate 105 H 114 H 114 H Respiratory Rate 31 H 33 H 36 H Blood Pressure 109/68 Pulse Oximetry 94 L 94 L 93 L 04/24/18 21:00 04/24/18 21:03 04/24/18 22:00 Temperature Pulse Rate 128 H 128 H 115 H Respiratory Rate 47 H 30 H 43 H Blood Pressure Pulse Oximetry 92 L 95 91 L 04/24/18 23:00 04/25/18 00:00 04/25/18 00:43 Temperature 99.1 F Pulse Rate 102 H 100 H 104 H Respiratory Rate 38 H 31 H 19 Blood Pressure Pulse Oximetry 95 98 04/25/18 01:00 04/25/18 02:00 04/25/18 02:06 Temperature Pulse Rate 100 H 102 H 108 H Respiratory Rate 31 H 29 H 37 H Blood Pressure 103/70 Pulse Oximetry 97 98 96 04/25/18 03:00 04/25/18 04:00 04/25/18 04:35 Temperature 99.0 F Pulse Rate 103 H 101 H 108 H Respiratory Rate 28 H 24 16 Blood Pressure 99/58 L 92/55 L Pulse Oximetry 97 97 04/25/18 05:00 04/25/18 06:00 04/25/18 07:00 Temperature Pulse Rate 101 H 107 H 101 H Respiratory Rate 24 33 H 25 H Blood Pressure 93/55 L 97/72 L 94/63 L Pulse Oximetry 98 94 L 97 04/25/18 07:43 04/25/18 07:55 04/25/18 08:00 Temperature 99.1 F Pulse Rate 107 H 109 H Respiratory Rate 36 H 16 30 H Blood Pressure 99/58 L Pulse Oximetry 96 97 04/25/18 09:00 04/25/18 09:11 04/25/18 09:18 Temperature Pulse Rate 108 H 115 H 114 H Respiratory Rate 24 33 H 33 H Blood Pressure 92/59 L 88/62 L 92/61 L Pulse Oximetry 96 96 95 04/25/18 10:00 04/25/18 11:00 04/25/18 12:00 Temperature 99.2 F Pulse Rate 119 H 115 H 120 H Respiratory Rate 32 H 33 H 37 H Blood Pressure 109/58 L 102/65 109/71 Pulse Oximetry 93 L 96 94 L 04/25/18 13:00 04/25/18 14:00 04/25/18 15:00 Temperature Pulse Rate 111 H 118 H 124 H Respiratory Rate 28 H 36 H 37 H Blood Pressure 103/66 106/68 107/66 Pulse Oximetry 97 97 95 04/25/18 15:17 04/25/18 16:00 Temperature Pulse Rate 126 H 117 H Respiratory Rate 16 26 H Blood Pressure 112/70 Pulse Oximetry 98 Intake & Output 04/24/18 04/25/18 04/25/18 18:59 06:59 18:59 Intake Total 1350 / 1350 480 / 480 245 / 245 Output Total 1125 / 1125 823 / 823 Balance 225 / 225 -343 / -343 245 / 245 Weight 75.5 kg Intake: IV 200 / 200 245 / 245 Teflaro Inj 600 MG In NS Inj 100 / 100 148 / 148 100 ML @ 100 mls/hr IV.SIG Q12H [facility] Rx#:[id number] Cubicin Inj 1,000 MG In NS Inj 100 / 100 97 / 97 100 ML @ 200 mls/hr IV.SIG Q24H [facility] Rx#:[id number] Oral 1150 / 1150 480 / 480 Output: Urine 1125 / 1125 725 / 725 Chest Tube Drainage 0 / 0 98 / 98 Left 0 / 0 Right 98 / 98 Other: Date of Last Bowel Movement 04/20/18 04/20/18 04/24/18 # Bowel Movements 1 0 gen: fatigued, conversational heent: eomi skin: no subQ emphysema cvs: tachycardic resp: dec bilaterally to me gi: soft, non tender, non distended ext: no edema Urinary Catheter Management Indwelling Urethral Catheter: Cath placed during this visit: yes, but has since been removed by the nurse Reason for continuing: Acute urinary retention Insertion date: 04/05/18 Insertion time: 23:00 Removal date: 04/12/18 Removal time: 08:30 Condom: Cath placed during this visit: no Reason for continuing: Acute urinary retention Straight: Cath placed during this visit: yes Reason for continuing: Acute urinary retention Insertion date: 04/08/18 Insertion time: 18:00 Results Labs CBC & Chem 7: 04/24/18 06:35 04/24/18 06:35 Imaging Imaging: Impressions Chest X-Ray 04/24/18 00:00 CONCLUSION: 1. Moderate to large right-sided pneumothorax. Chest X-Ray 04/24/18 00:00 CONCLUSION: Right-sided chest tube in good position. No significant residual pneumothorax is identified. Elongated infiltrate right upper lobe is unchanged Assessment and Plan (1) Anaphylaxis: Code(s): T78.2XXA - Anaphylactic shock, unspecified, initial encounter Status: Acute (2) COPD with acute exacerbation: Code(s): J44.1 - Chronic obstructive pulmonary disease with (acute) exacerbation Status: Acute (3) Bilateral pneumonia: Code(s): J18.9 - Pneumonia, unspecified organism Status: Acute (4) Allergic reaction caused by a drug: Code(s): T78.40XA - Allergy, unspecified, initial encounter Status: Acute (5) Acute respiratory failure: Code(s): J96.00 - Acute respiratory failure, unspecified whether with hypoxia or hypercapnia Status: Acute (6) Severe sepsis: Code(s): A41.9 - Sepsis, unspecified organism; R65.20 - Severe sepsis without septic shock Status: Acute (7) Leukocytosis: Code(s): D72.829 - Elevated white blood cell count, unspecified Status: Acute (8) Hypotension: Code(s): I95.9 - Hypotension, unspecified Status: Acute (9) Acute kidney injury: Code(s): N17.9 - Acute kidney failure, unspecified Status: Acute (10) Hyponatremia: Code(s): E87.1 - Hypo-osmolality and hyponatremia Status: Acute (11) Hyperglycemia: Code(s): R73.9 - Hyperglycemia, unspecified Status: Acute (12) History of hypertension: Code(s): Z86.79 - Personal history of other diseases of the circulatory system Status: Chronic (13) Tobacco abuse: Code(s): Z72.0 - Tobacco use Status: Chronic (14) History of COPD: Code(s): Z87.09 - Personal history of other diseases of the respiratory system Status: Chronic Plan Patient is a 72-year-old male with past medical history COPD and hypertension who presented with shortness of breath noted to have lung consolidation and cultures positive for MRSA pneumonia. Neurology: Acute metabolic encephalopathy Suspected to be in the setting of sepsis. Currently resolved MRI brain reviewed. Small chronic changes no acute finding of lesions or abscess Critical care/pulmonary: Acute hypoxic respiratory failure, left-sided pneumothorax w/ LEFT sided chest tube, MRSA pneumonia, prior MRSA bacteremia., COPD Patient status post extubation in the ICU on 04/13. Suspected to have occurred in the setting of anaphylactic reaction to vancomycin. Pulmonary consulted recommendations appreciated Left lower lobe 1.5 cm pulmonary nodule recommend outpatient PET scan on follow -up Continue DuoNeb every [address] imaging reviewed via EMR. Consolidation of right upper lobe noted. Increased cavitation of the large left upper lobe lesion seen. Antibiotics: linezolid p.o., and daptomycin (complete on 04/26) As recommended by infectious disease will repeat CT chest next week Infectious disease consulted recommendations appreciated MRSA bacteremia on 04/05, 04/07. DEEDEE on 04/08 without evidence of vegetation. Maintain oxygen saturation 88-92% with history of COPD 04/24 overnight: new pneumo. stat chest tube placed. 04/25 new air leak, transfer to [facility]. CODE STATUS: Full code DVT prophylaxis: Lovenox subcu Disposition: Awaiting transfer out of medical ICU Progress Note: Quality VTE Deep Vein Thrombosis/Pulmonary Embolism Present on Admission: No _ (1) Anaphylaxis Qualifiers: Encounter type: initial encounter Qualified Code(s): T78.2XXA - Anaphylactic shock, unspecified, initial encounter (2) Bilateral pneumonia Qualifiers: Pneumonia type: due to unspecified organism Aspiration pneumonia type: Lung location: unspecified part of lung Qualified Code(s): J18.9 - Pneumonia, unspecified organism (3) Allergic reaction caused by a drug Qualifiers: Encounter type: initial encounter Qualified Code(s): T78.40XA - Allergy, unspecified, initial encounter (4) Acute respiratory failure Qualifiers: Respiratory failure complication: unspecified whether with hypoxia or hypercapnia Qualified Code(s): J96.00 - Acute respiratory failure, unspecified whether with hypoxia or hypercapnia (5) Leukocytosis Qualifiers: Leukocytosis type: unspecified Qualified Code(s): D72.829 - Elevated white blood cell count, unspecified (6) Hypotension Qualifiers: Hypotension type: unspecified hypotension type Trimester: Qualified Code(s) : I95.9 - Hypotension, unspecified
[2018-04-26] MEDS: Oral Hygiene Kit OROPHARYNG SCH ×4 (00:09→19:19)
[2018-04-26] MEDS: Artificial Tears Opth Drops 15 ML Bottle EACH EYE SCH ×3 (04:18→20:05)
[2018-04-26] MEDS: Docusate Sodium 100 MG Capsule PO SCH ×2 (08:47→20:04)
[2018-04-26] MEDS: Mupirocin 2% Nasal Oint Topical Syringe EACH NARE SCH ×2 (08:47→20:03)
[2018-04-26] MEDS: Famotidine 20 MG Tablet PO SCH ×2 (08:47→20:04)
[2018-04-26] MEDS: Sodium Chloride 0.9% 2 ML Flush BID IV.FLUSH SCH ×2 (08:48→20:04)
[2018-04-26] MEDS: Sennosides Liq 8.8 MG/5 ML UDC PO SCH (08:48)
[2018-04-26] MEDS: Chlorhexidine 0.12% Oral Kit 15 ML UDC OROPHARYNG SCH ×2 (09:57→20:02)
[2018-04-26] MEDS: Linezolid 600 MG Tablet PO SCH ×2 (10:17→20:04)
[2018-04-26] MEDS: Metoprolol Tartrate 100 MG Tablet PO SCH ×2 (10:18→20:04)
[2018-04-26] MEDS: DAPTOmycin Inj 1,000 MG in Sodium Chlor 0.9% Inj 100 ML IV.SIG SCH (13:56)
--- NOTE | 2018-04-26 15:16 | P.PNIM ---
Subjective Interval history: Patient seen on followup MRSA and also pneumothorax s/p CT placement on RIGHT side Patient reports increased SOB without improvement with nebulizer STAT cxr obtained showed re-expanded pneumothorax critical care consulted vitals show reduced BP to 90/60's and HR 104. Pulm licensed tax consultant also given call but due to urgent nature will go to critical care team in ICU nfor urgent intervention. Physical Exam Vital signs: Vital Signs 04/25/18 15:17 04/25/18 16:00 04/25/18 20:00 Temperature 98.9 F Pulse Rate 126 H 117 H 129 H Respiratory Rate 16 26 H 25 H Blood Pressure 112/70 151/94 H Pulse Oximetry 98 96 04/25/18 20:49 04/26/18 00:00 04/26/18 03:32 Temperature 98.4 F Pulse Rate 96 H 99 H Respiratory Rate 24 Blood Pressure 94/69 L Pulse Oximetry 95 96 04/26/18 03:33 04/26/18 07:00 04/26/18 08:00 Temperature 99 F 97.9 F Pulse Rate 99 H 116 H 100 H Respiratory Rate 24 18 Blood Pressure 136/91 H 127/84 Pulse Oximetry 95 95 04/26/18 09:00 04/26/18 09:30 04/26/18 10:00 Temperature Pulse Rate 110 H 100 H 100 H Respiratory Rate 30 H Blood Pressure Pulse Oximetry 96 04/26/18 11:01 04/26/18 12:00 04/26/18 13:00 Temperature Pulse Rate 99 H 96 H 98 H Respiratory Rate 20 Blood Pressure 114/73 Pulse Oximetry 96 Intake & Output 04/25/18 04/26/18 04/26/18 18:59 06:59 18:59 Intake Total 965 / 965 580 / 580 100 / 100 Output Total 250 / 250 500 / 500 50 / 50 Balance 715 / 715 80 / 80 50 / 50 Weight 75 kg Intake: IV 245 / 245 100 / 100 100 / 100 Teflaro Inj 600 MG In NS Inj 148 / 148 100 / 100 100 / 100 100 ML @ 100 mls/hr IV.SIG Q12H [facility] Rx#:[id number] Cubicin Inj 1,000 MG In NS Inj 97 / 97 100 ML @ 200 mls/hr IV.SIG Q24H [facility] Rx#:[id number] Oral 720 / 720 480 / 480 Output: Urine 250 / 250 500 / 500 Chest Tube Drainage 50 / 50 Right 50 / 50 Other: # Incontinent Voids 2 Date of Last Bowel Movement 04/24/18 # Bowel Movements 0 0 gen: mod distress cvs: tachycardia resp: REDUCED breath sound on RIGHT side gi: soft, + bowel sound ext: no edema Urinary Catheter Management Indwelling Urethral Catheter: Cath placed during this visit: yes, but has since been removed by the nurse Reason for continuing: Acute urinary retention Insertion date: 04/05/18 Insertion time: 23:00 Removal date: 04/12/18 Removal time: 08:30 Condom: Cath placed during this visit: no Reason for continuing: Acute urinary retention Straight: Cath placed during this visit: yes Reason for continuing: Acute urinary retention Insertion date: 04/08/18 Insertion time: 18:00 Results Labs CBC & Chem 7: 04/24/18 06:35 04/24/18 06:35 Assessment and Plan (1) Anaphylaxis: Code(s): T78.2XXA - Anaphylactic shock, unspecified, initial encounter Status: Acute (2) COPD with acute exacerbation: Code(s): J44.1 - Chronic obstructive pulmonary disease with (acute) exacerbation Status: Acute (3) Bilateral pneumonia: Code(s): J18.9 - Pneumonia, unspecified organism Status: Acute (4) Allergic reaction caused by a drug: Code(s): T78.40XA - Allergy, unspecified, initial encounter Status: Acute (5) Acute respiratory failure: Code(s): J96.00 - Acute respiratory failure, unspecified whether with hypoxia or hypercapnia Status: Acute (6) Severe sepsis: Code(s): A41.9 - Sepsis, unspecified organism; R65.20 - Severe sepsis without septic shock Status: Acute (7) Leukocytosis: Code(s): D72.829 - Elevated white blood cell count, unspecified Status: Acute (8) Hypotension: Code(s): I95.9 - Hypotension, unspecified Status: Acute (9) Acute kidney injury: Code(s): N17.9 - Acute kidney failure, unspecified Status: Acute (10) Hyponatremia: Code(s): E87.1 - Hypo-osmolality and hyponatremia Status: Acute (11) Hyperglycemia: Code(s): R73.9 - Hyperglycemia, unspecified Status: Acute (12) History of hypertension: Code(s): Z86.79 - Personal history of other diseases of the circulatory system Status: Chronic (13) Tobacco abuse: Code(s): Z72.0 - Tobacco use Status: Chronic (14) History of COPD: Code(s): Z87.09 - Personal history of other diseases of the respiratory system Status: Chronic Plan Patient is a 72-year-old male with past medical history COPD and hypertension who presented with shortness of breath noted to have lung consolidation and cultures positive for MRSA pneumonia. Hospital course significant for chest tube placement on LEFT side pneumothorax which was subsequently removed. Pulmonary following. Patient on 04/24 with episode of SOB again and CXR with RIGHT sided pneumothorax formation with critical care consulted urgently overnight for placement of RIGHT sided chest tube. Patient was clinically stable otherwise and sent to [facility] for further management afterwards but on 04/26 in afternoon developed worsening SOB. Repeat CXR obtained showed what appears to be expanded pneumothorax on RIGHT side with evidence of 2+ air leak on chest tube. Critical care consulted and patient will be transferred to ICU for closer monitoring. Neurology: Acute metabolic encephalopathy Suspected to be in the setting of sepsis. Currently resolved MRI brain reviewed. Small chronic changes no acute finding of lesions or abscess Critical care/pulmonary: Acute hypoxic respiratory failure, left-sided pneumothorax w/ LEFT sided chest tube, MRSA pneumonia, prior MRSA bacteremia, COPD, RE-expansion RIGHT sided pneumothorax with air leakage Patient status post extubation in the ICU on 04/13. Suspected to have occurred in the setting of anaphylactic reaction to vancomycin. Pulmonary consulted recommendations appreciated Left lower lobe 1.5 cm pulmonary nodule recommend outpatient PET scan on follow -up Continue DuoNeb every [address] imaging reviewed via EMR. Consolidation of right upper lobe noted. Increased cavitation of the large left upper lobe lesion seen. Antibiotics: linezolid p.o., and daptomycin (complete on 04/26) As recommended by infectious disease will repeat CT chest next week Infectious disease consulted recommendations appreciated MRSA bacteremia on 04/05, 04/07. DEEDEE on 04/08 without evidence of vegetation. Maintain oxygen saturation 88-92% with history of COPD hospital course 04/24 overnight: new pneumo. stat chest tube placed. 04/26 2+ air leak with CXR showing expanded pneumothorax. critical care team consulted and will sent to ICU. Vitals repeated 3:25pm with BP 92/60's and HR 104. CODE STATUS: Full code DVT prophylaxis: Lovenox subcu Disposition: transfer to ICU. Critical care consultation. Set CT to suction. CXR official read pending Progress Note: Quality VTE Deep Vein Thrombosis/Pulmonary Embolism Present on Admission: No _ (1) Acute respiratory failure Qualifiers: Respiratory failure complication: unspecified whether with hypoxia or hypercapnia Qualified Code(s): J96.00 - Acute respiratory failure, unspecified whether with hypoxia or hypercapnia (2) Allergic reaction caused by a drug Qualifiers: Encounter type: initial encounter Qualified Code(s): T78.40XA - Allergy, unspecified, initial encounter (3) Anaphylaxis Qualifiers: Encounter type: initial encounter Qualified Code(s): T78.2XXA - Anaphylactic shock, unspecified, initial encounter (4) Leukocytosis Qualifiers: Leukocytosis type: unspecified Qualified Code(s): D72.829 - Elevated white blood cell count, unspecified (5) Bilateral pneumonia Qualifiers: Aspiration pneumonia type: Lung location: unspecified part of lung Pneumonia type: due to unspecified organism Qualified Code(s): J18.9 - Pneumonia, unspecified organism (6) Hypotension Qualifiers: Hypotension type: unspecified hypotension type Trimester: Qualified Code(s) : I95.9 - Hypotension, unspecified
--- NOTE | 2018-04-26 15:53 | XR ---
EXAM DATE: 04/26/2018 3:48 PM EST AGE/SEX: 72 years / Male INDICATIONS: Short of breath. CLINICAL DATA: This is the patient's subsequent encounter. Patient reports that signs and symptoms h ave been present for 3 days and indicates a pain score of 0/10. MEDICAL/SURGICAL HISTORY: . Chronic obstructive pulmonary disease. Hypertension. MRSA. . Ch est tube, right. COMPARISON: C, CHEST 1V SINGLE AP, 04/24/2018. . FINDINGS: Small-caliber chest tube remains in place on the right. The position does not appear appreciably grajeda ged with the tip projecting over the mid to upper lung. However, a moderate size pneumothorax has red eveloped. I believe there is a slight tension component. There is parenchymal consolidation of the ri ght lung, especially the base. Bullous changes are noted. There is small right base pleural fluid. Th ere is right chest wall emphysema, markedly increased. Mild patchy parenchymal consolidation of the left mid and lower lung again noted and not significantl y changed. CONCLUSION: Moderate to large right pleural effusion has redeveloped and with a probable slight tension component . Small-caliber right chest tube remains in place. Electronically signed by: Akash Paez MD Board Certified Radiologist 04/26/2018 3:52 PM EST
--- NOTE | 2018-04-26 16:48 | P.PNCC ---
Subjective Subjective Remarks/Hospital Course: Patient is 72-year-old male with past medical history of COPD, tobacco abuse and hypertension who came to the emergency room for shortness of breath via EMS. On EMS arrival saturation was in the 90s, but patient had significant shortness of breath and dyspnea. Patient received Solu-Medrol 125 mg IV and breathing treatments by EMS and was brought to the emergency department. In the emergency department patient received further breathing treatments and chest x-ray showed patchy infiltrate on bilateral lung fitzgerald. Initially maintaining oxygen saturation with nasal cannula. Initial blood pressure was 85 /65, improved with normal saline boluses. WBC count was 17.1. Patient was deemed septic from pneumonia and patient was ordered to receive vancomycin and Zosyn. While receiving vancomycin patient acutely decompensated became extremely short of breath and developed erythematous maculopapular rash involving face torso armpits and groin region. Emergently intubated and placed on mechanical ventilation by the ED physician. Received IV 50 mg Benadryl. Critical care medicine was requested to admit the patient. I evaluated the patient immediately in the emergency department. Patient is intubated on Versed and fentanyl infusion however he is very asynchronous with the vent triggering ventilator alarms. Severe bilateral expiratory wheezing heard on auscultation. He has extensive skin rash predominantly face forehead torso armpit and groins. Appears like patient had anaphylactic reaction to vancomycin complicated by COPD exacerbation and pneumonia. I have ordered additional Solu-Medrol 100 mg x1 scheduled Benadryl and famotidine, antibiotics with cefepime and Levaquin. Increase Versed infusion, add propofol and use neuromuscular paralysis as needed. Will request pharmacy to add vancomycin to allergy. ED physician Dr. Slater had noticed that patient had some swelling on the left side of his face on arrival, however the skin rash after vancomycin was started was new. Patient remains hypotensive has received 2 L of normal saline in the emergency department and no significant urine output. I have ordered additional 2 L normal saline bolus and maintenance fluid at 84 mL/h. Use Levophed as needed to keep map above 65 Subjective 04/06: Off norepinephrine drip. Currently resting in bed in no acute distress on midazolam and fentanyl drips. Start tube feeding today. 04/07: Remains sedated, intubated on mechanical ventilation. Blood cultures growing MRSA 04/08: remains sedated and intubated. repeat cultures still growing MRSA 2/4 cultures. likely need to repeat BCx either today or tomorrow. agree with narrowing spectrum abx. performed DEEDEE at ID recommendation (need to r/o endocarditis), but no evidence of vegetations. remains hypoxic. off vasopressors today. 04/09: adequate auto-diuresis overnight. off vasopressors. on sedation vacation. hypoxia improving. 04/10 Patient remains intubated and sedated with Fentanyl infusion. Became tachycardic and tachypneic overnight requiring increase sedation. Afebrile. 04/11 Patient is intubated and sedated. Afebrile. 04/12 Patient remains intubated and sedated with Diprivan and Fentanyl infusion, Afebrile. 04/13: Sedated, easily arousable, orally intubated on mechanical ventilation. 04/14 Patient was extubated yesterday. Afebrile. 04/15 Patient is lying in bed in NAD. On 3L oxygen. Awake and alert. 04/16 Patient is on partial rebreather. Afebrile. Awake and alert. 04/17: Left-sided chest tube placed for pneumothorax yesterday. On nasal cannula currently. Awake and alert. Appears comfortable. No air leak noted in Pleur-evac 04/18: Remains on nasal cannula. No air leak noted from left-sided chest tube. 04/19: On 5 L nasal cannula. Chest tube in place, no air leak noted. Resting in bed comfortably, no acute distress. Continues to have productive cough. 04/20: Remains on nasal cannula. Chest tube in place, no air leak noted. Resting in bed comfortably. 04/24: RECONSULT NOTE: called emergently by Hospitalist team. patient with new acute respiratory distress. Chest x-ray demonstrates new large right-sided pneumothorax. I went to evaluate the patient is seen in significant distress. I emergently placed right-sided pigtail chest tube. Significant denney of air with no air leak on chest tube. Respiratory distress improved after chest tube placement. Repeat interval chest x-ray demonstrates good placement of chest tube with resolution of pneumothorax. 04/26/18: RECONSULT NOTE: [facility] reconsulted for rexpansion of right pneumothorax. Patient developed increased SOB today without improvement with nebulizer. STAT CXR Moderate to large right pneumothorax has redeveloped and with a probable tension component. He appears to be in moderate distress tachypneic. Patient was moved to the ICU where I evaluated the patient emergently. The right pigtail chest tube is still in place, minimal air leak. I flushed the chest tube but was difficult to withdraw air. I then pulled back the chest tube by approximately 3 cm. Able to withdraw air more easily and on connection to the Vacutainer again there was significant air leak in all chambers. Patient subjectively felt improvement in shortness of breath after chest tube placement. Stat repeat chest x-ray shows near complete reexpansion of the right knee Objective Vital Signs / I&O: Vital Signs 04/25/18 20:00 04/25/18 20:49 04/26/18 00:00 Temperature 98.9 F 98.4 F Pulse Rate 129 H 96 H Respiratory Rate 25 H 24 Blood Pressure 151/94 H 94/69 L Pulse Oximetry 96 95 96 04/26/18 03:32 04/26/18 03:33 04/26/18 07:00 Temperature 99 F Pulse Rate 99 H 99 H 116 H Respiratory Rate 24 Blood Pressure 136/91 H Pulse Oximetry 95 04/26/18 08:00 04/26/18 09:00 04/26/18 09:30 Temperature 97.9 F Pulse Rate 100 H 110 H 100 H Respiratory Rate 18 30 H Blood Pressure 127/84 Pulse Oximetry 95 96 04/26/18 10:00 04/26/18 11:01 04/26/18 12:00 Temperature Pulse Rate 100 H 99 H 96 H Respiratory Rate 20 Blood Pressure 114/73 Pulse Oximetry 96 04/26/18 13:00 04/26/18 15:00 04/26/18 15:20 Temperature Pulse Rate 98 H 100 H Respiratory Rate 20 Blood Pressure Pulse Oximetry 04/26/18 15:34 04/26/18 16:00 Temperature Pulse Rate 100 H 100 H Respiratory Rate 20 Blood Pressure 90/66 L Pulse Oximetry Intake & Output 04/25/18 04/26/18 04/26/18 18:59 06:59 18:59 Intake Total 965 / 965 580 / 580 200 / 200 Output Total 250 / 250 500 / 500 50 / 50 Balance 715 / 715 80 / 80 150 / 150 Weight 75 kg Intake: IV 245 / 245 100 / 100 200 / 200 Teflaro Inj 600 MG In NS Inj 148 / 148 100 / 100 100 / 100 100 ML @ 100 mls/hr IV.SIG Q12H [facility] Rx#:[id number] Cubicin Inj 1,000 MG In NS Inj 97 / 97 100 / 100 100 ML @ 200 mls/hr IV.SIG Q24H [facility] Rx#:[id number] Oral 720 / 720 480 / 480 Output: Urine 250 / 250 500 / 500 Chest Tube Drainage 50 / 50 Right 50 / 50 Other: # Incontinent Voids 2 Date of Last Bowel Movement 04/24/18 04/24/18 # Bowel Movements 0 0 Result Diagrams: 04/24/18 06:35 04/24/18 06:35 Objective Remarks: GENERAL: Patient is lying in bed in moderate respiratory distress SKIN: Warm and dry. HEAD: Atraumatic. Normocephalic. EYES: Pupils equal and round. No scleral icterus. No injection or drainage. ENT: No nasal bleeding or discharge. Mucous membranes moist. NECK: Trachea midline. No JVD. CARDIOVASCULAR: Regular rate and rhythm. sinus. RESPIRATORY: Significant accessory muscle use. Hyperresonant to percussion over the right chest wall. Absent breath sounds on the right. In moderate respiratory distress. Subcutaneous emphysema present on the right chest wall. Right chest tube in place with minimal air leak GASTROINTESTINAL: Abdomen soft, non-tender, nondistended. no guarding. MUSCULOSKELETAL: Extremities without clubbing, cyanosis, or edema. No obvious deformities. NEUROLOGICAL: Awake and alert. In moderate distress. Moving all extremities. Follows commands. Assessment and Plan - Problem List (1) Anaphylaxis Code(s): T78.2XXA - Anaphylactic shock, unspecified, initial encounter Status : Acute (2) COPD with acute exacerbation Code(s): J44.1 - Chronic obstructive pulmonary disease with (acute) exacerbation Status: Acute (3) Bilateral pneumonia Code(s): J18.9 - Pneumonia, unspecified organism Status: Acute (4) Allergic reaction caused by a drug Code(s): T78.40XA - Allergy, unspecified, initial encounter Status: Acute (5) Acute respiratory failure Code(s): J96.00 - Acute respiratory failure, unspecified whether with hypoxia or hypercapnia Status: Acute (6) Severe sepsis Code(s): A41.9 - Sepsis, unspecified organism; R65.20 - Severe sepsis without septic shock Status: Acute (7) Leukocytosis Code(s): D72.829 - Elevated white blood cell count, unspecified Status: Acute (8) Hypotension Code(s): I95.9 - Hypotension, unspecified Status: Acute (9) Acute kidney injury Code(s): N17.9 - Acute kidney failure, unspecified Status: Acute (10) Hyponatremia Code(s): E87.1 - Hypo-osmolality and hyponatremia Status: Acute (11) Hyperglycemia Code(s): R73.9 - Hyperglycemia, unspecified Status: Acute (12) History of hypertension Code(s): Z86.79 - Personal history of other diseases of the circulatory system Status: Chronic (13) Tobacco abuse Code(s): Z72.0 - Tobacco use Status: Chronic (14) History of COPD Code(s): Z87.09 - Personal history of other diseases of the respiratory system Status: Chronic - Assessment and Plan Plan: Assessment: 72-year-old male with known necrotizing MRSA pneumonia and hypoxemia requiring supplemental oxygenation now with acute respiratory distress secondary to acute right pneumothorax. Status post emergent chest tube decompression. Critically ill. Clinically improved after acute intervention. Active problems: Large right-sided pneumothorax reexpansion with tension component Acute hypoxemia COPD MRSA bacteremia/sepsis MRSA pneumonia Plan: I manipulated and retracted the existing chest tube by 3 cm with significant improvement in air leak Repeat chest x-ray shows reexpansion of the lung Keep chest tube to suction Pulmonology is following Wean oxygen by nasal cannula for goal SPO2 greater than 90% Continue antibiotics per ID Stable to return to hospitalist service in the a.m. 04/27/18. This patient remains critically ill with one or more organ systems which are or may become a threat to life. I have spent in excess of 35 minutes discontinuously in the care and management of this patient. This time is exclusive of procedures, and includes, but is not limited to, evaluation of the patient, review of the medical record, discussions with family, consultants, nursing staff, or respiratory therapy, and documentation in the medical record. Code Status: Full (1) Anaphylaxis Qualifiers: Encounter type: initial encounter Qualified Code(s): T78.2XXA - Anaphylactic shock, unspecified, initial encounter (3) Bilateral pneumonia Qualifiers: Pneumonia type: due to unspecified organism Lung location: unspecified part of lung Qualified Code(s): J18.9 - Pneumonia, unspecified organism (4) Allergic reaction caused by a drug Qualifiers: Encounter type: initial encounter Qualified Code(s): T78.40XA - Allergy, unspecified, initial encounter (5) Acute respiratory failure Qualifiers: Respiratory failure complication: unspecified whether with hypoxia or hypercapnia Qualified Code(s): J96.00 - Acute respiratory failure, unspecified whether with hypoxia or hypercapnia (7) Leukocytosis Qualifiers: Leukocytosis type: unspecified Qualified Code(s): D72.829 - Elevated white blood cell count, unspecified (8) Hypotension Qualifiers: Hypotension type: unspecified hypotension type Qualified Code(s): I95.9 - Hypotension, unspecified
--- NOTE | 2018-04-26 17:19 | XR ---
EXAM DATE: 04/26/2018 5:15 PM EST AGE/SEX: 72 years / Male INDICATIONS: Shortness of breath. CLINICAL DATA: This is the patient's subsequent encounter. Patient reports that signs and symptoms h ave been present for 3 days and indicates a pain score of 0/10. MEDICAL/SURGICAL HISTORY: . Chronic obstructive pulmonary disease. Hypertension. MRSA. Chest tu be, right. . [place] [facility] [place]. . FINDINGS: Right chest catheter remains projected in the lateral mid chest. No definite evidence of pneumothorax and no displacement of pleural reflection. Patchy areas of consolidation and honeycombing are presen t in the upper and lower lungs. Both hemidiaphragms remain delineated. Focal opacity in the mid left lung stable from prior. Prominent amount subcutaneous emphysema about the right chest wall stable fro m prior. CONCLUSION: Reexpansion of the right lung with no evidence of residual pneumothorax. Electronically signed by: Leonard Nielson MD Board Certified Radiologist 04/26/2018 5:18 PM EST
[2018-04-26] MEDS: Enoxaparin Inj 40 MG/0.4 ML Syringe SQ SCH (22:39)
[2018-04-26] MEDS: guaiFENesin 600 MG ER Tablet PO SCH (23:32)
[2018-04-27] MEDS: Oral Hygiene Kit OROPHARYNG SCH ×4 (01:05→15:58)
[2018-04-27] MEDS: Artificial Tears Opth Drops 15 ML Bottle EACH EYE SCH ×3 (04:36→22:19)
--- NOTE | 2018-04-27 05:33 | XR ---
EXAM DATE: 04/27/2018 5:09 AM EST AGE/SEX: 72 years / Male INDICATIONS: Shortness of breath, possible pulmonary disease. CLINICAL DATA: This is the patient's subsequent encounter. Patient reports that signs and symptoms h ave been present for 3 weeks and indicates a pain score of 8/10. MEDICAL/SURGICAL HISTORY: Chronic obstructive pulmonary disease. Hypertension. MRSA. Chest tu be, right. [place] [facility] [place]. . FINDINGS: Small-caliber right chest tube present with small residual right pneumothorax. Air in the subcutaneou s tissues of the right chest wall and right neck. Patchy basilar airspace disease similar to April 19, 2016. Tortuous aorta. CONCLUSION: Right chest tube remains in place with small residual right pneumothorax and bilateral patchy airspac e disease. Electronically signed by: Francisco Alonzo MD Board Certified Radiologist 04/27/2018 5:31 AM EST
[2018-04-27 06:09] LABS: Hematocrit 36.1 % (39.0-51.0); Hemoglobin 12.1 gm/dL (13.0-17.0); Mean Corpuscular HGB Conc 33.5 % (32.0-36.0); Mean Corpuscular Hemoglobin 30.1 pg (27.0-34.0); Mean Corpuscular Volume 89.9 fL (80.0-100.0); Mean Platelet Volume 9.7 fL (7.0-11.0); Platelet Count 139 th/mm3 (150-450); Red Blood Count 4.02 mil/mm3 (4.50-5.90); Red Cell Distribution Width 14.5 % (11.6-17.2); White Blood Count 8.1 th/mm3 (4.0-11.0)
[2018-04-27 06:39] LABS: Anion Gap 7 meq/L (5-15); Blood Urea Nitrogen 21 mg/dL (7-18); Calcium 8.7 mg/dL (8.5-10.1); Carbon Dioxide 32.8 meq/L (21.0-32.0); Chloride 96 meq/L (98-107); Glomerular Filtration Rate Greater Than 89 mL/min (>89); Glucose,Random 106 mg/dL (74-106); Magnesium 1.8 mg/dL (1.5-2.5); Potassium 3.7 meq/L (3.5-5.1); Sodium 136 meq/L (136-145)
[2018-04-27] MEDS: guaiFENesin 600 MG ER Tablet PO SCH ×2 (08:05→22:18)
[2018-04-27] MEDS: Sennosides Liq 8.8 MG/5 ML UDC PO SCH (08:05)
[2018-04-27] MEDS: Docusate Sodium 100 MG Capsule PO SCH ×2 (08:05→22:18)
[2018-04-27] MEDS: Famotidine 20 MG Tablet PO SCH ×2 (08:05→22:19)
[2018-04-27] MEDS: Linezolid 600 MG Tablet PO SCH ×2 (08:05→22:20)
[2018-04-27] MEDS: Chlorhexidine 0.12% Oral Kit 15 ML UDC OROPHARYNG SCH ×2 (08:06→22:18)
[2018-04-27] MEDS: Sodium Chloride 0.9% 2 ML Flush BID IV.FLUSH SCH ×2 (08:15→22:19)
[2018-04-27] MEDS: Metoprolol Tartrate 100 MG Tablet PO SCH ×2 (09:53→22:18)
--- NOTE | 2018-04-27 10:43 | P.PNIM ---
Subjective Interval history: less sob since yesterday with chest tube adjustment by critical care team much appeciated says he finds it hard to take deep breaths + tachycardia ( ? pain component) afebrile still on abx as per ID for mrsa pneumonia Physical Exam Vital signs: Vital Signs 04/26/18 11:01 04/26/18 12:00 04/26/18 13:00 Temperature Pulse Rate 99 H 96 H 98 H Respiratory Rate 20 Blood Pressure 114/73 Pulse Oximetry 96 04/26/18 15:00 04/26/18 15:20 04/26/18 15:34 Temperature Pulse Rate 100 H 100 H Respiratory Rate 20 20 Blood Pressure 90/66 L Pulse Oximetry 04/26/18 16:00 04/26/18 17:00 04/26/18 18:00 Temperature Pulse Rate 100 H 99 H 96 H Respiratory Rate Blood Pressure Pulse Oximetry 04/26/18 19:00 04/26/18 19:44 04/26/18 20:00 Temperature 98.6 F Pulse Rate 103 H 109 H 107 H Respiratory Rate 24 24 Blood Pressure 98/60 L Pulse Oximetry 96 98 04/26/18 21:00 04/26/18 21:30 04/26/18 22:00 Temperature Pulse Rate 91 H 93 H Respiratory Rate Blood Pressure 99/64 L 94/68 L 94/67 L Pulse Oximetry 100 96 04/26/18 22:30 04/26/18 23:00 04/26/18 23:30 Temperature Pulse Rate 84 83 88 Respiratory Rate Blood Pressure 105/65 97/62 L 102/65 Pulse Oximetry 97 98 97 04/26/18 23:54 04/27/18 00:00 04/27/18 00:30 Temperature 98.8 F Pulse Rate 92 H 91 H 92 H Respiratory Rate 32 H 22 Blood Pressure 110/69 95/62 L Pulse Oximetry 99 98 04/27/18 01:00 04/27/18 01:30 04/27/18 02:00 Temperature Pulse Rate 95 H 97 H 98 H Respiratory Rate Blood Pressure 107/63 101/65 95/60 L Pulse Oximetry 95 96 96 04/27/18 02:30 04/27/18 03:00 04/27/18 03:30 Temperature Pulse Rate 99 H 98 H 104 H Respiratory Rate Blood Pressure 102/64 100/63 98/72 L Pulse Oximetry 97 97 95 04/27/18 04:00 04/27/18 04:05 04/27/18 04:30 Temperature 98.6 F Pulse Rate 100 H 104 H 102 H Respiratory Rate 22 28 H Blood Pressure 91/54 L 102/60 Pulse Oximetry 95 97 04/27/18 05:00 04/27/18 05:30 04/27/18 06:00 Temperature Pulse Rate 102 H 110 H 110 H Respiratory Rate Blood Pressure 106/64 114/72 Pulse Oximetry 95 96 91 L 04/27/18 06:03 04/27/18 06:30 04/27/18 07:00 Temperature Pulse Rate 115 H 106 H 120 H Respiratory Rate 25 H 28 H 42 H Blood Pressure 99/64 L 98/60 L 106/70 Pulse Oximetry 91 L 94 L 94 L 04/27/18 07:30 04/27/18 07:58 04/27/18 08:00 Temperature 98.6 F Pulse Rate 110 H 106 H 110 H Respiratory Rate 34 H 24 33 H Blood Pressure 107/66 104/68 Pulse Oximetry 95 96 95 04/27/18 08:30 04/27/18 09:00 Temperature Pulse Rate 115 H 110 H Respiratory Rate 36 H 31 H Blood Pressure 96/67 L 110/61 Pulse Oximetry 93 L 92 L Intake & Output 04/26/18 04/27/18 04/27/18 18:59 06:59 18:59 Intake Total 200 / 200 350 / 350 100 / 100 Output Total 50 / 50 670 / 670 Balance 150 / 150 -320 / -320 100 / 100 Weight 77.5 kg Intake: IV 200 / 200 100 / 100 100 / 100 Teflaro Inj 600 MG In NS Inj 100 / 100 100 / 100 100 / 100 100 ML @ 100 mls/hr IV.SIG Q12H [facility] Rx#:[id number] Cubicin Inj 1,000 MG In NS Inj 100 / 100 100 ML @ 200 mls/hr IV.SIG Q24H [facility] Rx#:[id number] Oral 250 / 250 Output: Urine 350 / 350 Chest Tube Drainage 50 / 50 320 / 320 Right 50 / 50 320 / 320 Other: # Voids 1 Date of Last Bowel Movement 04/24/18 04/24/18 04/24/18 # Bowel Movements 0 gen: fatigued cvs: tachycardia resp: improved aeration on RIGHT side compared to exam 04/26. Good air movement on LEFT side. no intercostal muscle use gi: soft, non tender, non distended, no guarding ext: no edema Urinary Catheter Management Indwelling Urethral Catheter: Cath placed during this visit: yes, but has since been removed by the nurse Reason for continuing: Acute urinary retention Insertion date: 04/05/18 Insertion time: 23:00 Removal date: 04/12/18 Removal time: 08:30 Condom: Cath placed during this visit: no Reason for continuing: Acute urinary retention Straight: Cath placed during this visit: yes Reason for continuing: Acute urinary retention Insertion date: 04/08/18 Insertion time: 18:00 Results Labs CBC & Chem 7: 04/27/18 05:25 04/27/18 05:25 Imaging Imaging: Impressions Chest X-Ray 04/26/18 00:00 CONCLUSION: Moderate to large right pleural effusion has redeveloped and with a probable slight tension component. Small-caliber right chest tube remains in place. Chest X-Ray 04/26/18 16:57 CONCLUSION: Reexpansion of the right lung with no evidence of residual pneumothorax. Chest X-Ray 04/27/18 06:00 CONCLUSION: Right chest tube remains in place with small residual right pneumothorax and bilateral patchy airspace disease. Assessment and Plan (1) Anaphylaxis: Code(s): T78.2XXA - Anaphylactic shock, unspecified, initial encounter Status: Acute (2) COPD with acute exacerbation: Code(s): J44.1 - Chronic obstructive pulmonary disease with (acute) exacerbation Status: Acute (3) Bilateral pneumonia: Code(s): J18.9 - Pneumonia, unspecified organism Status: Acute (4) Allergic reaction caused by a drug: Code(s): T78.40XA - Allergy, unspecified, initial encounter Status: Acute (5) Acute respiratory failure: Code(s): J96.00 - Acute respiratory failure, unspecified whether with hypoxia or hypercapnia Status: Acute (6) Severe sepsis: Code(s): A41.9 - Sepsis, unspecified organism; R65.20 - Severe sepsis without septic shock Status: Acute (7) Leukocytosis: Code(s): D72.829 - Elevated white blood cell count, unspecified Status: Acute (8) Hypotension: Code(s): I95.9 - Hypotension, unspecified Status: Acute (9) Acute kidney injury: Code(s): N17.9 - Acute kidney failure, unspecified Status: Acute (10) Hyponatremia: Code(s): E87.1 - Hypo-osmolality and hyponatremia Status: Acute (11) Hyperglycemia: Code(s): R73.9 - Hyperglycemia, unspecified Status: Acute (12) History of hypertension: Code(s): Z86.79 - Personal history of other diseases of the circulatory system Status: Chronic (13) Tobacco abuse: Code(s): Z72.0 - Tobacco use Status: Chronic (14) History of COPD: Code(s): Z87.09 - Personal history of other diseases of the respiratory system Status: Chronic Plan Patient is a 72-year-old male with past medical history COPD and hypertension who presented with shortness of breath noted to have lung consolidation and cultures positive for MRSA pneumonia. Hospital course significant for chest tube placement on LEFT side pneumothorax which was subsequently removed. Pulmonary following. Patient on 04/24 with episode of SOB again and CXR with RIGHT sided pneumothorax formation with critical care consulted urgently overnight for placement of RIGHT sided chest tube. Patient was clinically stable otherwise and sent to [facility] for further management afterwards but on 04/26 in afternoon developed worsening SOB. Repeat CXR obtained showed what appears to be expanded pneumothorax on RIGHT side with evidence of 2+ air leak on chest tube. Critical care consulted and patient will be transferred to ICU for closer monitoring and was stabilized when chest tube was pulled back by approx 3cm with resolution of air leak and re-expansion of the lung with CXR confirmation. Neurology: Acute metabolic encephalopathy Suspected to be in the setting of sepsis. Currently resolved MRI brain reviewed. Small chronic changes no acute finding of lesions or abscess Critical care/pulmonary: Acute hypoxic respiratory failure, left-sided pneumothorax w/ LEFT sided chest tube, MRSA pneumonia, prior MRSA bacteremia, COPD, RE-expansion RIGHT sided pneumothorax with air leakage s/p intervention by critical care and treatment. Patient status post extubation in the ICU on 04/13. Suspected to have occurred in the setting of anaphylactic reaction to vancomycin. Pulmonary consulted recommendations appreciated Left lower lobe 1.5 cm pulmonary nodule recommend outpatient PET scan on follow -up Continue DuoNeb every [address] imaging reviewed via EMR. Consolidation of right upper lobe noted. Increased cavitation of the large left upper lobe lesion seen. Antibiotics: linezolid p.o., and daptomycin (complete on 04/26) Infectious disease consulted recommendations appreciated MRSA bacteremia on 04/05, 04/07. DEEDEE on 04/08 without evidence of vegetation. Maintain oxygen saturation 90-92% with history of COPD hospital course 04/24 overnight: new pneumo. stat chest tube placed. 04/26 2+ air leak with CXR showing expanded pneumothorax. critical care team consulted and will sent to ICU. Vitals repeated 3:25pm with BP 92/60's and HR 104. send to icu. - Infectious disease to follow up. - Pulmonary assistance with chest tube. bilateral pneumo with 1 week of eachother. - chest tube to suction at 40 for now. CODE STATUS: Full code DVT prophylaxis: Lovenox subcu Disposition: Keep in ICU under hospitalist team. ID/Pulm following. Patient remains scute with recent mulitple pneumo and MRSA pneumonia. Progress Note: Quality VTE Deep Vein Thrombosis/Pulmonary Embolism Present on Admission: No _ (1) Acute respiratory failure Qualifiers: Respiratory failure complication: unspecified whether with hypoxia or hypercapnia Qualified Code(s): J96.00 - Acute respiratory failure, unspecified whether with hypoxia or hypercapnia (2) Allergic reaction caused by a drug Qualifiers: Encounter type: initial encounter Qualified Code(s): T78.40XA - Allergy, unspecified, initial encounter (3) Anaphylaxis Qualifiers: Encounter type: initial encounter Qualified Code(s): T78.2XXA - Anaphylactic shock, unspecified, initial encounter (4) Leukocytosis Qualifiers: Leukocytosis type: unspecified Qualified Code(s): D72.829 - Elevated white blood cell count, unspecified (5) Bilateral pneumonia Qualifiers: Aspiration pneumonia type: Lung location: unspecified part of lung Pneumonia type: due to unspecified organism Qualified Code(s): J18.9 - Pneumonia, unspecified organism (6) Hypotension Qualifiers: Hypotension type: unspecified hypotension type Trimester: Qualified Code(s) : I95.9 - Hypotension, unspecified
[2018-04-27] MEDS: DAPTOmycin Inj 1,000 MG in Sodium Chlor 0.9% Inj 100 ML IV.SIG SCH (13:33)
--- NOTE | 2018-04-27 18:41 | P.PNPL ---
Subjective Interval history: 72 YOWM with MRSA Pn, cavitary lesion, COPD, Lt ptx mild sob Congested, not bringing up sp No Fever On 2LNC Weekend events noted Developed Rt ptx has rt chest tube no Airleak Physical Exam Vital signs: Vital Signs 04/26/18 19:00 04/26/18 19:44 04/26/18 20:00 Temperature 98.6 F Pulse Rate 103 H 109 H 107 H Respiratory Rate 24 24 Blood Pressure 98/60 L Pulse Oximetry 96 98 04/26/18 21:00 04/26/18 21:30 04/26/18 22:00 Temperature Pulse Rate 91 H 93 H Respiratory Rate Blood Pressure 99/64 L 94/68 L 94/67 L Pulse Oximetry 100 96 04/26/18 22:30 04/26/18 23:00 04/26/18 23:30 Temperature Pulse Rate 84 83 88 Respiratory Rate Blood Pressure 105/65 97/62 L 102/65 Pulse Oximetry 97 98 97 04/26/18 23:54 04/27/18 00:00 04/27/18 00:30 Temperature 98.8 F Pulse Rate 92 H 91 H 92 H Respiratory Rate 32 H 22 Blood Pressure 110/69 95/62 L Pulse Oximetry 99 98 04/27/18 01:00 04/27/18 01:30 04/27/18 02:00 Temperature Pulse Rate 95 H 97 H 98 H Respiratory Rate Blood Pressure 107/63 101/65 95/60 L Pulse Oximetry 95 96 96 04/27/18 02:30 04/27/18 03:00 04/27/18 03:30 Temperature Pulse Rate 99 H 98 H 104 H Respiratory Rate Blood Pressure 102/64 100/63 98/72 L Pulse Oximetry 97 97 95 04/27/18 04:00 04/27/18 04:05 04/27/18 04:30 Temperature 98.6 F Pulse Rate 100 H 104 H 102 H Respiratory Rate 22 28 H Blood Pressure 91/54 L 102/60 Pulse Oximetry 95 97 04/27/18 05:00 04/27/18 05:30 04/27/18 06:00 Temperature Pulse Rate 102 H 110 H 110 H Respiratory Rate Blood Pressure 106/64 114/72 Pulse Oximetry 95 96 91 L 04/27/18 06:03 04/27/18 06:30 04/27/18 07:00 Temperature Pulse Rate 115 H 106 H 120 H Respiratory Rate 25 H 28 H 42 H Blood Pressure 99/64 L 98/60 L 106/70 Pulse Oximetry 91 L 94 L 94 L 04/27/18 07:30 04/27/18 07:58 04/27/18 08:00 Temperature 98.6 F Pulse Rate 110 H 106 H 110 H Respiratory Rate 34 H 24 33 H Blood Pressure 107/66 104/68 Pulse Oximetry 95 96 95 04/27/18 08:30 04/27/18 09:00 04/27/18 09:38 Temperature Pulse Rate 115 H 110 H 135 H Respiratory Rate 36 H 31 H 37 H Blood Pressure 96/67 L 110/61 105/68 Pulse Oximetry 93 L 92 L 95 04/27/18 09:59 04/27/18 10:00 04/27/18 10:30 Temperature Pulse Rate 135 H 135 H 124 H Respiratory Rate 42 H 41 H 41 H Blood Pressure 103/67 102/68 90/61 L Pulse Oximetry 92 L 91 L 94 L 04/27/18 10:36 04/27/18 11:00 04/27/18 11:26 Temperature Pulse Rate 122 H 96 H 87 Respiratory Rate 40 H 27 H 24 Blood Pressure 99/69 L 85/56 L Pulse Oximetry 94 L 99 04/27/18 11:30 04/27/18 12:00 04/27/18 12:30 Temperature 98.6 F Pulse Rate 86 93 H 95 H Respiratory Rate 39 H 45 H 39 H Blood Pressure 96/65 L 113/69 99/64 L Pulse Oximetry 95 94 L 94 L 04/27/18 13:00 04/27/18 13:31 04/27/18 14:00 Temperature Pulse Rate 92 H 99 H 97 H Respiratory Rate 46 H 46 H 32 H Blood Pressure 98/54 L 107/70 97/58 L Pulse Oximetry 95 95 97 04/27/18 14:30 04/27/18 14:44 04/27/18 15:00 Temperature Pulse Rate 98 H 100 H 103 H Respiratory Rate 32 H 24 40 H Blood Pressure 100/60 110/71 Pulse Oximetry 94 L 96 04/27/18 15:30 04/27/18 16:00 04/27/18 16:30 Temperature 98.5 F Pulse Rate 102 H 106 H 104 H Respiratory Rate 33 H 34 H 34 H Blood Pressure 111/63 106/69 105/67 Pulse Oximetry 94 L 93 L 96 04/27/18 17:00 04/27/18 17:30 04/27/18 18:00 Temperature Pulse Rate 105 H 107 H 110 H Respiratory Rate 31 H 32 H Blood Pressure 109/68 105/72 Pulse Oximetry 99 97 Intake & Output 04/26/18 04/27/18 04/27/18 18:59 06:59 18:59 Intake Total 200 / 200 350 / 350 1160 / 1160 Output Total 50 / 50 670 / 670 600 / 600 Balance 150 / 150 -320 / -320 560 / 560 Weight 77.5 kg Intake: IV 200 / 200 100 / 100 200 / 200 Teflaro Inj 600 MG In NS Inj 100 / 100 100 / 100 100 / 100 100 ML @ 100 mls/hr IV.SIG Q12H [facility] Rx#:[id number] Cubicin Inj 1,000 MG In NS Inj 100 / 100 100 / 100 100 ML @ 200 mls/hr IV.SIG Q24H [facility] Rx#:[id number] Oral 250 / 250 960 / 960 Output: Urine 350 / 350 600 / 600 Chest Tube Drainage 50 / 50 320 / 320 0 / 0 Right 50 / 50 320 / 320 0 / 0 Other: # Voids 1 Date of Last Bowel Movement 04/24/18 04/24/18 04/24/18 # Bowel Movements 0 GENERAL: Elderly male, NAD SKIN: Warm and dry. HEAD: Normocephalic. EYES: No scleral icterus. No injection or drainage. NECK: Supple, trachea midline. No JVD or lymphadenopathy. CARDIOVASCULAR: Regular rate and rhythm without murmurs, gallops, or rubs. RESPIRATORY: Breath sounds equal bilaterally. No accessory muscle use. Rt chest tube in place No airleak SQ Emphysema GASTROINTESTINAL: Abdomen soft, non-tender, nondistended. MUSCULOSKELETAL: No cyanosis, or edema. BACK: Nontender without obvious deformity. No CVA tenderness. - Urinary Catheter Management Indwelling Urethral Catheter Cath placed during this visit: yes, but has since been removed by the nurse Reason for continuing: Acute urinary retention Insertion date: 04/05/18 Insertion time: 23:00 Removal date: 04/12/18 Removal time: 08:30 Condom Cath placed during this visit: no Reason for continuing: Acute urinary retention Straight Cath placed during this visit: yes Reason for continuing: Acute urinary retention Insertion date: 04/08/18 Insertion time: 18:00 Assessment and Plan - Plan IMPRESSION: 1. MRSA pneumonia. 2. Cavitary pneumonia. 4. Chronic obstructive pulmonary disease. 5. Hypotension. 6. Left pneumothorax, status post chest tube.removal 7. Nicotine use. 8. Right Ptx PLAN: Cont Abx per ID Ceftaroline, Zyvox, Daptomycin Aerosol nebs Supplement 02 SQ lovenox Encourage to use Acapella Rt chest tube to suction CXR in AM
--- NOTE | 2018-04-27 19:19 | P.PNID ---
Subjective Remarks: events noted dw Dr Hermila Glaser sp PTX on R side now sp CT placement on 04/24 On 4 L of NC O2 co productive cough with dark sputum Antibiotics: n zyvox teflaro added 04/16 Lines: Line sites okay Past Medical History: COPD Allergies/Adverse Reactions: Allergies bee venom protein (honey bee) Allergy (Unknown, Verified 04/05/18 21:12) Edema vancomycin Allergy (Verified 04/05/18 23:33) Anaphylaxis Objective Vital Signs 04/26/18 19:44 04/26/18 20:00 04/26/18 21:00 Temperature 98.6 F Pulse Rate 109 H 107 H Respiratory Rate 24 24 Blood Pressure 98/60 L 99/64 L Pulse Oximetry 96 98 04/26/18 21:30 04/26/18 22:00 04/26/18 22:30 Temperature Pulse Rate 91 H 93 H 84 Respiratory Rate Blood Pressure 94/68 L 94/67 L 105/65 Pulse Oximetry 100 96 97 04/26/18 23:00 04/26/18 23:30 04/26/18 23:54 Temperature Pulse Rate 83 88 92 H Respiratory Rate 32 H Blood Pressure 97/62 L 102/65 Pulse Oximetry 98 97 04/27/18 00:00 04/27/18 00:30 04/27/18 01:00 Temperature 98.8 F Pulse Rate 91 H 92 H 95 H Respiratory Rate 22 Blood Pressure 110/69 95/62 L 107/63 Pulse Oximetry 99 98 95 04/27/18 01:30 04/27/18 02:00 04/27/18 02:30 Temperature Pulse Rate 97 H 98 H 99 H Respiratory Rate Blood Pressure 101/65 95/60 L 102/64 Pulse Oximetry 96 96 97 04/27/18 03:00 04/27/18 03:30 04/27/18 04:00 Temperature 98.6 F Pulse Rate 98 H 104 H 100 H Respiratory Rate 22 Blood Pressure 100/63 98/72 L 91/54 L Pulse Oximetry 97 95 95 04/27/18 04:05 04/27/18 04:30 04/27/18 05:00 Temperature Pulse Rate 104 H 102 H 102 H Respiratory Rate 28 H Blood Pressure 102/60 106/64 Pulse Oximetry 97 95 04/27/18 05:30 04/27/18 06:00 04/27/18 06:03 Temperature Pulse Rate 110 H 110 H 115 H Respiratory Rate 25 H Blood Pressure 114/72 99/64 L Pulse Oximetry 96 91 L 91 L 04/27/18 06:30 04/27/18 07:00 04/27/18 07:30 Temperature Pulse Rate 106 H 120 H 110 H Respiratory Rate 28 H 42 H 34 H Blood Pressure 98/60 L 106/70 107/66 Pulse Oximetry 94 L 94 L 95 04/27/18 07:58 04/27/18 08:00 04/27/18 08:30 Temperature 98.6 F Pulse Rate 106 H 110 H 115 H Respiratory Rate 24 33 H 36 H Blood Pressure 104/68 96/67 L Pulse Oximetry 96 95 93 L 04/27/18 09:00 04/27/18 09:38 04/27/18 09:59 Temperature Pulse Rate 110 H 135 H 135 H Respiratory Rate 31 H 37 H 42 H Blood Pressure 110/61 105/68 103/67 Pulse Oximetry 92 L 95 92 L 04/27/18 10:00 04/27/18 10:30 04/27/18 10:36 Temperature Pulse Rate 135 H 124 H 122 H Respiratory Rate 41 H 41 H 40 H Blood Pressure 102/68 90/61 L 99/69 L Pulse Oximetry 91 L 94 L 94 L 04/27/18 11:00 04/27/18 11:26 04/27/18 11:30 Temperature Pulse Rate 96 H 87 86 Respiratory Rate 27 H 24 39 H Blood Pressure 85/56 L 96/65 L Pulse Oximetry 99 95 04/27/18 12:00 04/27/18 12:30 04/27/18 13:00 Temperature 98.6 F Pulse Rate 93 H 95 H 92 H Respiratory Rate 45 H 39 H 46 H Blood Pressure 113/69 99/64 L 98/54 L Pulse Oximetry 94 L 94 L 95 04/27/18 13:31 04/27/18 14:00 04/27/18 14:30 Temperature Pulse Rate 99 H 97 H 98 H Respiratory Rate 46 H 32 H 32 H Blood Pressure 107/70 97/58 L 100/60 Pulse Oximetry 95 97 94 L 04/27/18 14:44 04/27/18 15:00 04/27/18 15:30 Temperature 98.5 F Pulse Rate 100 H 103 H 102 H Respiratory Rate 24 40 H 33 H Blood Pressure 110/71 111/63 Pulse Oximetry 96 94 L 04/27/18 16:00 04/27/18 16:30 04/27/18 17:00 Temperature Pulse Rate 106 H 104 H 105 H Respiratory Rate 34 H 34 H 31 H Blood Pressure 106/69 105/67 109/68 Pulse Oximetry 93 L 96 99 04/27/18 17:30 04/27/18 18:00 Temperature Pulse Rate 107 H 110 H Respiratory Rate 32 H Blood Pressure 105/72 Pulse Oximetry 97 Intake & Output 04/27/18 04/27/18 04/28/18 06:59 18:59 06:59 Intake Total 350 / 350 1160 / 1160 Output Total 670 / 670 600 / 600 Balance -320 / -320 560 / 560 Weight 77.5 kg Intake: IV 100 / 100 200 / 200 Teflaro Inj 600 MG In NS Inj 100 / 100 100 / 100 100 ML @ 100 mls/hr IV.SIG Q12H [facility] Rx#:[id number] Cubicin Inj 1,000 MG In NS Inj 100 / 100 100 ML @ 200 mls/hr IV.SIG Q24H [facility] Rx#:[id number] Oral 250 / 250 960 / 960 Output: Urine 350 / 350 600 / 600 Chest Tube Drainage 320 / 320 0 / 0 Right 320 / 320 0 / 0 Other: # Voids 1 Date of Last Bowel Movement 04/24/18 04/24/18 # Bowel Movements 0 Lab - Hematology Results 04/27/18 05:25 WBC 8.1 RBC 4.02 L Hgb 12.1 L Hct 36.1 L MCV 89.9 MCH 30.1 MCHC 33.5 RDW 14.5 Plt Count 139 L D MPV 9.7 Lab - Chemistry Results 04/26/18 04/27/18 23:11 05:25 Sodium 136 Potassium 3.7 Chloride 96 L Carbon Dioxide 32.8 H Anion Gap 7 BUN 21 H Creatinine 0.47 L Estimated GFR Greater than 89 POC Glucose 135 H Random Glucose 106 Calcium 8.7 Magnesium 1.8 Imaging: ITS Impressions Face CT 04/06/18 00:00 CONCLUSION: 1. Small focal area of soft tissue swelling involving the lateral orbital margin on the left. No abscess. Abdomen/Pelvis CT 04/10/18 00:00 CONCLUSION: 1. Findings in the patient's chest discussed on the patient's chest CT. 2. Left renal stone without hydronephrosis. 3. Slight AAA. 4. Possible gallstones within the gallbladder. 5. There is slight fluid within the peritoneal cavity in the pelvis and within left perinephric space and stranding densities involving the Gerota's fascia on the left side. The exact etiology is not certain could be inflammatory, and there is no hydronephrosis. Head MRI 04/12/18 00:00 CONCLUSION: 1. Some chronic changes with mild cortical and central atrophy. Minimal periventricular and scattered deep white matter tract areas of small vessel ischemic demyelination. 2. Some fluid or secretions identified in the dependent portion of the nasopharynx. 3. Otherwise negative. No findings of intracranial mass lesion/abscess. Lumbar Spine MRI 04/12/18 00:00 CONCLUSION: 1. No evidence of epidural abscess. 2. Grade 1 anterolisthesis at L5-S1 with associated discogenic degenerative changes and bilateral pars defects. There is significant bilateral bony neural foraminal stenosis with bilateral neural impingement. 3. Asymmetric ligamentum flavum hypertrophy on the right side at the L4-5 level flattens the dorsal lateral aspect of the thecal sac. Neural foramen remain patent. 4. Suggestion of distended urinary bladder, incompletely imaged in the field-of -view. Thoracic Spine MRI 04/12/18 00:00 CONCLUSION: 1. Small bilateral pleural effusions. 2. Spinal canal is widely patent throughout without cord compromise. No findings of a paravertebral abscess. Abdomen X-Ray 04/12/18 09:42 CONCLUSION: No evidence of ileus. Gallium Scan Nuclear Medicine 04/13/18 00:00 CONCLUSION: 1. There is abnormal uptake in the lungs corresponding to cavitary lesions probably lung abscesses and areas of consolidation seen on the patient's prior chest CT. Chest CT 04/16/18 10:15 CONCLUSION: 1. A 23 mm left sided pneumothorax is identified. 2. Multiple cavitary lesions are again noted and slightly worse in appearance than on the previous examination. 3. Consolidation of the right upper lobe is again noted and [demonstrates] worsening cavitation. 4. Increased cavitation of the large left upper lobe lesion also. 5. Small partially loculated pleural effusions are noted. 6. Bibasilar alveolar consolidations are noted posteriorly consistent with probable atelectasis. 7. Tiny pericardial effusion is noted. 8. Degenerative changes are noted throughout the thoracic and upper lumbar spine. Chest X-Ray 04/27/18 06:00 CONCLUSION: Right chest tube remains in place with small residual right pneumothorax and bilateral patchy airspace disease. Physical Exam: GENERAL: NAD comfortable on 4 L SKIN: Warm and dry. No rash HEAD: Atraumatic. Normocephalic. EYES: Pupils equal and round. No scleral icterus. No injection or drainage. ENT: No nasal bleeding or discharge. Mucous membranes pink and moist. NECK: Trachea midline. No JVD. CARDIOVASCULAR: Regular rate and rhythm. RESPIRATORY: No accessory muscle use. clear to auscultation. Breath sounds equal bilaterally. R sided CT in place with serosang fluid GASTROINTESTINAL: Abdomen soft, non-tender, nondistended. MUSCULOSKELETAL: Extremities without clubbing, mi.ld toes cyanosis no significant edema. 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
[2018-04-27] MEDS: Enoxaparin Inj 40 MG/0.4 ML Syringe SQ SCH (22:20)
[2018-04-28] MEDS: Oral Hygiene Kit OROPHARYNG SCH ×5 (01:41→23:13)
[2018-04-28] MEDS: Artificial Tears Opth Drops 15 ML Bottle EACH EYE SCH ×3 (04:29→20:02)
--- NOTE | 2018-04-28 05:54 | XR ---
EXAM DATE: 04/28/2018 4:48 AM EST AGE/SEX: 72 years / Male INDICATIONS: Short of breath. CLINICAL DATA: This is the patient's subsequent encounter. Patient reports that signs and symptoms h ave been present for 3 weeks and indicates a pain score of 0/10. MEDICAL/SURGICAL HISTORY: . Chronic obstructive pulmonary disease. Hypertension. MRSA. Chest t ube, right. COMPARISON: [facility] [place], CHEST 1V SINGLE AP, 04/27/2018. . FINDINGS: Small-caliber right chest tube present with probable small loculated pneumothorax at the right lung b ase. Fibrocavitary disease upper right lung. Bilateral airspace disease at the bases, right greater t daniel left. Subcutaneous air in the right chest wall. Heart size upper limits normal. CONCLUSION: Small-caliber right chest tube as above with probable small right basilar pneumothorax, stable. Stabl e bilateral airspace disease. Electronically signed by: Francisco Alonzo MD Board Certified Radiologist 04/28/2018 5:53 AM EST
[2018-04-28 06:41] LABS: INR 1.1 Ratio; Prothrombin Time 10.7 sec (9.8-11.6)
[2018-04-28 06:59] LABS: Anion Gap 7 meq/L (5-15); Blood Urea Nitrogen 16 mg/dL (7-18); Calcium 8.7 mg/dL (8.5-10.1); Carbon Dioxide 34.8 meq/L (21.0-32.0); Chloride 94 meq/L (98-107); Glomerular Filtration Rate Greater Than 89 mL/min (>89); Glucose,Random 97 mg/dL (74-106); Magnesium 1.8 mg/dL (1.5-2.5); Potassium 3.6 meq/L (3.5-5.1); Sodium 136 meq/L (136-145)
[2018-04-28 07:02] LABS: Hematocrit 35.1 % (39.0-51.0); Hemoglobin 11.9 gm/dL (13.0-17.0); Mean Corpuscular Hemoglobin 30.5 pg (27.0-34.0); Mean Corpuscular Volume 89.7 fL (80.0-100.0); Mean Platelet Volume 9.2 fL (7.0-11.0); Platelet Count 139 th/mm3 (150-450); Red Blood Count 3.91 mil/mm3 (4.50-5.90); Red Cell Distribution Width 14.5 % (11.6-17.2); White Blood Count 6.7 th/mm3 (4.0-11.0)
[2018-04-28] MEDS: Docusate Sodium 100 MG Capsule PO SCH ×2 (08:20→20:01)
[2018-04-28] MEDS: Linezolid 600 MG Tablet PO SCH ×2 (08:20→20:03)
[2018-04-28] MEDS: guaiFENesin 600 MG ER Tablet PO SCH ×2 (08:20→20:01)
[2018-04-28] MEDS: Famotidine 20 MG Tablet PO SCH ×2 (08:20→20:02)
[2018-04-28] MEDS: Sodium Chloride 0.9% 2 ML Flush BID IV.FLUSH SCH ×2 (08:21→20:02)
[2018-04-28] MEDS: Chlorhexidine 0.12% Oral Kit 15 ML UDC OROPHARYNG SCH ×2 (08:21→20:01)
[2018-04-28] MEDS: Metoprolol Tartrate 100 MG Tablet PO SCH ×2 (08:21→20:01)
[2018-04-28] MEDS: Sennosides Liq 8.8 MG/5 ML UDC PO SCH (08:22)
--- NOTE | 2018-04-28 09:57 | P.PNIM ---
Subjective Interval history: patient reports feeling better, no chest pain, feels breathing is improving. Physical Exam Vital signs: Vital Signs 04/27/18 09:59 04/27/18 10:00 04/27/18 10:30 Temperature Pulse Rate 135 H 135 H 124 H Respiratory Rate 42 H 41 H 41 H Blood Pressure 103/67 102/68 90/61 L Pulse Oximetry 92 L 91 L 94 L 04/27/18 10:36 04/27/18 11:00 04/27/18 11:26 Temperature Pulse Rate 122 H 96 H 87 Respiratory Rate 40 H 27 H 24 Blood Pressure 99/69 L 85/56 L Pulse Oximetry 94 L 99 04/27/18 11:30 04/27/18 12:00 04/27/18 12:30 Temperature 98.6 F Pulse Rate 86 93 H 95 H Respiratory Rate 39 H 45 H 39 H Blood Pressure 96/65 L 113/69 99/64 L Pulse Oximetry 95 94 L 94 L 04/27/18 13:00 04/27/18 13:31 04/27/18 14:00 Temperature Pulse Rate 92 H 99 H 97 H Respiratory Rate 46 H 46 H 32 H Blood Pressure 98/54 L 107/70 97/58 L Pulse Oximetry 95 95 97 04/27/18 14:30 04/27/18 14:44 04/27/18 15:00 Temperature Pulse Rate 98 H 100 H 103 H Respiratory Rate 32 H 24 40 H Blood Pressure 100/60 110/71 Pulse Oximetry 94 L 96 04/27/18 15:30 04/27/18 16:00 04/27/18 16:30 Temperature 98.5 F Pulse Rate 102 H 106 H 104 H Respiratory Rate 33 H 34 H 34 H Blood Pressure 111/63 106/69 105/67 Pulse Oximetry 94 L 93 L 96 04/27/18 17:00 04/27/18 17:30 04/27/18 18:00 Temperature Pulse Rate 105 H 107 H 107 H Respiratory Rate 31 H 32 H 31 H Blood Pressure 109/68 105/72 98/62 L Pulse Oximetry 99 97 96 04/27/18 18:30 04/27/18 19:00 04/27/18 19:25 Temperature Pulse Rate 117 H 119 H 115 H Respiratory Rate 37 H 41 H 30 H Blood Pressure 108/69 105/64 Pulse Oximetry 96 96 97 04/27/18 19:30 04/27/18 20:00 04/27/18 20:30 Temperature 98.4 F Pulse Rate 113 H 115 H 126 H Respiratory Rate 33 H 30 H 36 H Blood Pressure 103/61 101/61 100/64 Pulse Oximetry 95 98 92 L 04/27/18 21:00 04/27/18 21:30 04/27/18 22:00 Temperature Pulse Rate 121 H 115 H 102 H Respiratory Rate 35 H 29 H 40 H Blood Pressure 106/61 101/64 100/62 Pulse Oximetry 95 98 94 L 04/27/18 22:30 04/27/18 23:00 04/27/18 23:15 Temperature Pulse Rate 119 H 109 H 102 H Respiratory Rate 39 H 33 H 30 H Blood Pressure 105/71 108/66 Pulse Oximetry 97 97 04/27/18 23:30 04/28/18 00:00 04/28/18 00:30 Temperature 99.1 F Pulse Rate 95 H 94 H 93 H Respiratory Rate 29 H 35 H 35 H Blood Pressure 105/72 105/70 108/70 Pulse Oximetry 99 96 95 04/28/18 01:00 04/28/18 01:30 04/28/18 02:00 Temperature Pulse Rate 90 97 H 98 H Respiratory Rate 28 H 31 H 44 H Blood Pressure 95/51 L 100/68 102/66 Pulse Oximetry 96 94 L 94 L 04/28/18 02:30 04/28/18 03:00 04/28/18 03:06 Temperature Pulse Rate 101 H 101 H 99 H Respiratory Rate 37 H 36 H 30 H Blood Pressure 114/69 107/68 Pulse Oximetry 94 L 92 L 04/28/18 03:30 04/28/18 04:00 04/28/18 04:30 Temperature 98.5 F Pulse Rate 102 H 107 H 108 H Respiratory Rate 35 H 35 H 33 H Blood Pressure 105/70 113/74 113/76 Pulse Oximetry 92 L 93 L 94 L 04/28/18 05:00 04/28/18 05:30 04/28/18 06:00 Temperature Pulse Rate 106 H 112 H 109 H Respiratory Rate 25 H 38 H Blood Pressure 102/69 119/73 Pulse Oximetry 93 L 96 04/28/18 08:00 04/28/18 08:09 Temperature 98.8 F Pulse Rate 88 112 H Respiratory Rate 38 H 28 H Blood Pressure 104/74 Pulse Oximetry 96 97 Intake & Output 04/27/18 04/28/18 04/28/18 18:59 06:59 18:59 Intake Total 1160 / 1160 240 / 240 100 / 100 Output Total 600 / 600 300 / 300 Balance 560 / 560 -60 / -60 100 / 100 Weight 74 kg Intake: IV 200 / 200 100 / 100 Teflaro Inj 600 MG In NS Inj 100 / 100 100 / 100 100 ML @ 100 mls/hr IV.SIG Q12H [facility] Rx#:[id number] Cubicin Inj 1,000 MG In NS Inj 100 / 100 100 ML @ 200 mls/hr IV.SIG Q24H [facility] Rx#:[id number] Oral 960 / 960 240 / 240 Output: Urine 600 / 600 300 / 300 Chest Tube Drainage 0 / 0 0 / 0 Right 0 / 0 0 / 0 Other: Date of Last Bowel Movement 04/24/18 04/24/18 04/24/18 # Bowel Movements 0 Narrative: GENERAL: elderly man,not in distress. HEENT:not pale,anicteric CARDIOVASCULAR:mildly tachycardic,regular rhythm,s1s2 normal without murmurs, gallops, or rubs. CHEST: Rt chest tube in situ,chest clear to auscultation. No wheezes, rales, or rhonchi. GASTROINTESTINAL: Abdomen soft, non-tender, nondistended. Normal active bowel sounds MUSCULOSKELETAL: Extremities without clubbing, cyanosis, or edema. NEURO: Alert & Oriented x4 to person, place, time, situation. Moves all ext x4 Urinary Catheter Management Indwelling Urethral Catheter: Cath placed during this visit: yes, but has since been removed by the nurse Reason for continuing: Acute urinary retention Insertion date: 04/05/18 Insertion time: 23:00 Removal date: 04/12/18 Removal time: 08:30 Condom: Cath placed during this visit: no Reason for continuing: Acute urinary retention Straight: Cath placed during this visit: yes Reason for continuing: Acute urinary retention Insertion date: 04/08/18 Insertion time: 18:00 Results Labs CBC & Chem 7: 04/28/18 04:35 04/28/18 04:53 Imaging Imaging: Impressions Chest X-Ray 04/28/18 07:00 CONCLUSION: Small-caliber right chest tube as above with probable small right basilar pneumothorax, stable. Stable bilateral airspace disease. Assessment and Plan Plan 72-w h/o COPD,HTN who presented with shortness of breath noted to have lung consolidation and cultures positive for MRSA pneumonia. Hospital course significant for chest tube placement on LEFT side pneumothorax which was subsequently removed. Patient on 04/24 with episode of SOB again and CXR with RIGHT sided pneumothorax formation with critical care consulted urgently overnight for placement of RIGHT sided chest tube. Patient was clinically stable otherwise and sent to [facility] for further management afterwards but on 04/26 in afternoon developed worsening SOB. Repeat CXR obtained showed what appears to be expanded pneumothorax on RIGHT side with evidence of 2+ air leak on chest tube. Critical care consulted and patient transferred to ICU for closer monitoring and was stabilized when chest tube was pulled back by approx 3cm with resolution of air leak and re-expansion of the lung with CXR confirmation. Critical care/pulmonary: Acute hypoxic respiratory failure, left-sided pneumothorax w/ LEFT sided chest tube, MRSA pneumonia, prior MRSA bacteremia, COPD, RE-expansion RIGHT sided pneumothorax with air leakage s/p intervention by critical care and treatment. Patient status post extubation in the ICU on 04/13. Suspected to have occurred in the setting of anaphylactic reaction to vancomycin. CT imaging reviewed via EMR. Consolidation of right upper lobe noted. Increased cavitation of the large left upper lobe lesion seen. MRSA bacteremia on 04/05, 04/07. DEEDEE on 04/08 without evidence of vegetation. Pulmonary consulted recommendations appreciated Left lower lobe 1.5 cm pulmonary nodule recommend outpatient PET scan on follow -up Continue DuoNeb every 4 hour - chest tube to suction at 40 for now. Maintain oxygen saturation 90-92% with history of COPD Antibiotics:Linezolid,Daptomycin Ceftaroline Infectious disease/pulmonary recommendations appreciated Neurology: Acute metabolic encephalopathy Suspected to be in the setting of sepsis. Currently resolved MRI brain reviewed. Small chronic changes no acute finding of lesions or abscess CODE STATUS: Full code DVT prophylaxis: Lovenox subcu Disposition: Keep in ICU under hospitalist team. ID/Pulm following. Patient remains scute with recent mulitple pneumo and MRSA pneumonia. Progress Note: Quality VTE Deep Vein Thrombosis/Pulmonary Embolism Present on Admission: No
[2018-04-28] MEDS: DAPTOmycin Inj 1,000 MG in Sodium Chlor 0.9% Inj 100 ML IV.SIG SCH (12:56)
--- NOTE | 2018-04-28 17:39 | P.PNPL ---
Subjective Interval history: 72 YOWM with MRSA Pn, cavitary lesion, COPD, Lt ptx mild sob Congested, not bringing up sp No Fever On 2LNC CXR small rt basilar ptx Physical Exam Vital signs: Vital Signs 04/27/18 18:00 04/27/18 18:30 04/27/18 19:00 Temperature Pulse Rate 107 H 117 H 119 H Respiratory Rate 31 H 37 H 41 H Blood Pressure 98/62 L 108/69 105/64 Pulse Oximetry 96 96 96 04/27/18 19:25 04/27/18 19:30 04/27/18 20:00 Temperature 98.4 F Pulse Rate 115 H 113 H 115 H Respiratory Rate 30 H 33 H 30 H Blood Pressure 103/61 101/61 Pulse Oximetry 97 95 98 04/27/18 20:30 04/27/18 21:00 04/27/18 21:30 Temperature Pulse Rate 126 H 121 H 115 H Respiratory Rate 36 H 35 H 29 H Blood Pressure 100/64 106/61 101/64 Pulse Oximetry 92 L 95 98 04/27/18 22:00 04/27/18 22:30 04/27/18 23:00 Temperature Pulse Rate 102 H 119 H 109 H Respiratory Rate 40 H 39 H 33 H Blood Pressure 100/62 105/71 108/66 Pulse Oximetry 94 L 97 97 04/27/18 23:15 04/27/18 23:30 04/28/18 00:00 Temperature 99.1 F Pulse Rate 102 H 95 H 94 H Respiratory Rate 30 H 29 H 35 H Blood Pressure 105/72 105/70 Pulse Oximetry 99 96 04/28/18 00:30 04/28/18 01:00 04/28/18 01:30 Temperature Pulse Rate 93 H 90 97 H Respiratory Rate 35 H 28 H 31 H Blood Pressure 108/70 95/51 L 100/68 Pulse Oximetry 95 96 94 L 04/28/18 02:00 04/28/18 02:30 04/28/18 03:00 Temperature Pulse Rate 98 H 101 H 101 H Respiratory Rate 44 H 37 H 36 H Blood Pressure 102/66 114/69 107/68 Pulse Oximetry 94 L 94 L 92 L 04/28/18 03:06 04/28/18 03:30 04/28/18 04:00 Temperature 98.5 F Pulse Rate 99 H 102 H 107 H Respiratory Rate 30 H 35 H 35 H Blood Pressure 105/70 113/74 Pulse Oximetry 92 L 93 L 04/28/18 04:30 04/28/18 05:00 04/28/18 05:30 Temperature Pulse Rate 108 H 106 H 112 H Respiratory Rate 33 H 25 H 38 H Blood Pressure 113/76 102/69 119/73 Pulse Oximetry 94 L 93 L 96 04/28/18 06:00 04/28/18 08:00 04/28/18 08:09 Temperature 98.8 F Pulse Rate 109 H 88 112 H Respiratory Rate 38 H 28 H Blood Pressure 104/74 Pulse Oximetry 96 97 04/28/18 10:00 04/28/18 11:18 04/28/18 11:59 Temperature Pulse Rate 87 92 H 99 H Respiratory Rate 22 Blood Pressure Pulse Oximetry 04/28/18 12:00 04/28/18 14:00 04/28/18 15:10 Temperature 98.7 F Pulse Rate 99 H 102 H 102 H Respiratory Rate 28 H 30 H Blood Pressure 120/75 Pulse Oximetry 96 04/28/18 16:00 Temperature 98.6 F Pulse Rate 102 H Respiratory Rate 28 H Blood Pressure 122/76 Pulse Oximetry 98 Intake & Output 04/27/18 04/28/18 04/28/18 18:59 06:59 18:59 Intake Total 1160 / 1160 240 / 240 200 / 200 Output Total 600 / 600 300 / 300 Balance 560 / 560 -60 / -60 200 / 200 Weight 74 kg Intake: IV 200 / 200 200 / 200 Teflaro Inj 600 MG In NS Inj 100 / 100 200 / 200 100 ML @ 100 mls/hr IV.SIG Q12H [facility] Rx#:[id number] Cubicin Inj 1,000 MG In NS Inj 100 / 100 100 ML @ 200 mls/hr IV.SIG Q24H [facility] Rx#:[id number] Oral 960 / 960 240 / 240 Output: Urine 600 / 600 300 / 300 Chest Tube Drainage 0 / 0 0 / 0 Right 0 / 0 0 / 0 Other: Date of Last Bowel Movement 04/24/18 04/24/18 04/28/18 # Bowel Movements 0 1 GENERAL: WBWN NAD SKIN: Warm and dry. HEAD: Normocephalic. EYES: No scleral icterus. No injection or drainage. NECK: Supple, trachea midline. No JVD or lymphadenopathy. CARDIOVASCULAR: Regular rate and rhythm without murmurs, gallops, or rubs. RESPIRATORY: Breath sounds equal bilaterally. No accessory muscle use. Rt chest tube to suction GASTROINTESTINAL: Abdomen soft, non-tender, nondistended. MUSCULOSKELETAL: No cyanosis, or edema. BACK: Nontender without obvious deformity. No CVA tenderness. - Urinary Catheter Management Indwelling Urethral Catheter Cath placed during this visit: yes, but has since been removed by the nurse Reason for continuing: Acute urinary retention Insertion date: 04/05/18 Insertion time: 23:00 Removal date: 04/12/18 Removal time: 08:30 Condom Cath placed during this visit: no Reason for continuing: Acute urinary retention Straight Cath placed during this visit: yes Reason for continuing: Acute urinary retention Insertion date: 04/08/18 Insertion time: 18:00 Assessment and Plan - Plan IMPRESSION: 1. MRSA pneumonia. 2. Cavitary pneumonia. 4. Chronic obstructive pulmonary disease. 5. Hypotension. 6. Left pneumothorax, status post chest tube.removal 7. Nicotine use. 8. Right Ptx PLAN: Cont Abx per ID Ceftaroline, Zyvox, Daptomycin Aerosol nebs Supplement 02 SQ lovenox Encourage to use Acapella Put chest tube to water seal. CXR in AM
[2018-04-28] MEDS: Morphine Inj 4 MG/ML Vial IV.PUSH PRN (20:12)
[2018-04-28] MEDS: Enoxaparin Inj 40 MG/0.4 ML Syringe SQ SCH (23:13)
[2018-04-29 03:55] LABS: Anion Gap 6 meq/L (5-15); Blood Urea Nitrogen 12 mg/dL (7-18); Calcium 8.1 mg/dL (8.5-10.1); Carbon Dioxide 32.3 meq/L (21.0-32.0); Chloride 95 meq/L (98-107); Glomerular Filtration Rate Greater Than 89 mL/min (>89); Glucose,Random 115 mg/dL (74-106); Potassium 3.5 meq/L (3.5-5.1); Sodium 133 meq/L (136-145)
[2018-04-29] MEDS: Oral Hygiene Kit OROPHARYNG SCH ×3 (04:46→17:30)
[2018-04-29] MEDS: Artificial Tears Opth Drops 15 ML Bottle EACH EYE SCH ×3 (04:46→20:50)
[2018-04-29] MEDS: Docusate Sodium 100 MG Capsule PO SCH ×2 (08:15→20:49)
[2018-04-29] MEDS: Famotidine 20 MG Tablet PO SCH ×2 (08:15→20:49)
[2018-04-29] MEDS: Metoprolol Tartrate 100 MG Tablet PO SCH ×2 (08:15→20:49)
[2018-04-29] MEDS: guaiFENesin 600 MG ER Tablet PO SCH ×2 (08:15→20:49)
[2018-04-29] MEDS: Linezolid 600 MG Tablet PO SCH ×2 (08:15→20:49)
[2018-04-29] MEDS: Sennosides Liq 8.8 MG/5 ML UDC PO SCH ×2 (08:15→12:02)
[2018-04-29] MEDS: Sodium Chloride 0.9% 2 ML Flush BID IV.FLUSH SCH ×2 (08:16→20:49)
[2018-04-29] MEDS: Chlorhexidine 0.12% Oral Kit 15 ML UDC OROPHARYNG SCH ×2 (08:17→22:00)
[2018-04-29] MEDS: DAPTOmycin Inj 1,000 MG in Sodium Chlor 0.9% Inj 100 ML IV.SIG SCH (12:44)
--- NOTE | 2018-04-29 16:52 | P.PNIM ---
Subjective Interval history: patient reports feeling well. Physical Exam Vital signs: Vital Signs 04/28/18 17:00 04/28/18 18:00 04/28/18 19:00 Temperature Pulse Rate 107 H 115 H 111 H Respiratory Rate 30 H 38 H 30 H Blood Pressure 117/76 106/58 L 116/69 Pulse Oximetry 98 99 96 04/28/18 19:36 04/28/18 20:00 04/28/18 21:00 Temperature Pulse Rate 114 H 117 H 114 H Respiratory Rate 38 H 43 H 28 H Blood Pressure 121/77 118/68 Pulse Oximetry 96 95 96 04/28/18 22:00 04/28/18 23:00 04/28/18 23:12 Temperature Pulse Rate 93 H 90 Respiratory Rate 27 H 40 H 28 H Blood Pressure 118/72 119/79 Pulse Oximetry 96 94 L 04/28/18 23:23 04/29/18 00:00 04/29/18 01:00 Temperature 98.6 F Pulse Rate 95 H 93 H 102 H Respiratory Rate 35 H 27 H 30 H Blood Pressure 110/66 113/74 Pulse Oximetry 96 94 L 04/29/18 02:00 04/29/18 03:00 04/29/18 03:25 Temperature Pulse Rate 98 H 97 H 107 H Respiratory Rate 27 H 25 H 28 H Blood Pressure 110/67 103/62 Pulse Oximetry 95 96 04/29/18 04:00 04/29/18 04:01 04/29/18 06:00 Temperature 98.4 F Pulse Rate 107 H 109 H 110 H Respiratory Rate 47 H 44 H Blood Pressure 114/66 Pulse Oximetry 93 L 95 04/29/18 07:00 04/29/18 07:30 04/29/18 08:00 Temperature 98.4 F Pulse Rate 104 H 110 H 113 H Respiratory Rate 24 27 H Blood Pressure 104/60 118/85 Pulse Oximetry 99 94 L 04/29/18 09:00 04/29/18 10:00 04/29/18 10:01 Temperature Pulse Rate 93 H 90 90 Respiratory Rate 25 H 28 H Blood Pressure 101/69 121/81 Pulse Oximetry 97 94 L 93 L 04/29/18 11:00 04/29/18 11:16 04/29/18 11:18 Temperature Pulse Rate 89 91 H Respiratory Rate 24 Blood Pressure 125/84 Pulse Oximetry 90 L 94 L 04/29/18 11:59 04/29/18 12:00 04/29/18 12:53 Temperature 98.6 F Pulse Rate 93 H 91 H 102 H Respiratory Rate Blood Pressure 113/69 Pulse Oximetry 94 L 95 04/29/18 13:00 04/29/18 14:00 04/29/18 14:56 Temperature Pulse Rate 103 H 102 H 109 H Respiratory Rate 26 H 28 H 24 Blood Pressure 115/73 105/71 Pulse Oximetry 95 95 04/29/18 15:00 04/29/18 16:00 Temperature Pulse Rate 103 H 110 H Respiratory Rate Blood Pressure 112/73 109/72 Pulse Oximetry 91 L 95 Intake & Output 04/28/18 04/29/18 04/29/18 18:59 06:59 18:59 Intake Total 1020 / 1020 580 / 580 200 / 200 Output Total 575 / 575 225 / 225 Balance 445 / 445 355 / 355 200 / 200 Weight 74.5 kg Intake: IV 300 / 300 100 / 100 200 / 200 Teflaro Inj 600 MG In NS Inj 200 / 200 100 / 100 100 / 100 100 ML @ 100 mls/hr IV.SIG Q12H [facility] Rx#:[id number] Cubicin Inj 1,000 MG In NS Inj 100 / 100 100 / 100 100 ML @ 200 mls/hr IV.SIG Q24H [facility] Rx#:[id number] Oral 720 / 720 480 / 480 Output: Urine 575 / 575 225 / 225 Other: Date of Last Bowel Movement 04/28/18 04/28/18 04/29/18 # Bowel Movements 1 0 1 Narrative: GENERAL: elderly man,not in distress. HEENT:not pale,anicteric CARDIOVASCULAR:mildly tachycardic,regular rhythm,s1s2 normal without murmurs, gallops, or rubs. CHEST: Rt chest tube in situ,chest clear to auscultation. No wheezes, rales, or rhonchi. GASTROINTESTINAL: Abdomen soft, non-tender, nondistended. Normal active bowel sounds MUSCULOSKELETAL: Extremities without clubbing, cyanosis, or edema. NEURO: Alert & Oriented x4 to person, place, time, situation. Moves all ext x4 Urinary Catheter Management Indwelling Urethral Catheter: Cath placed during this visit: yes, but has since been removed by the nurse Reason for continuing: Acute urinary retention Insertion date: 04/05/18 Insertion time: 23:00 Removal date: 04/12/18 Removal time: 08:30 Condom: Cath placed during this visit: no Reason for continuing: Acute urinary retention Straight: Cath placed during this visit: yes Reason for continuing: Acute urinary retention Insertion date: 04/08/18 Insertion time: 18:00 Results Labs CBC & Chem 7: 04/28/18 04:35 04/29/18 02:45 Labs: Microbiology 04/28/18 05:35 Sputum - Expectorated Sputum Gram Stain - Final 04/28/18 05:35 Sputum - Expectorated Sputum Sputum Culture - Preliminary S. aureus MRSA Assessment and Plan Plan 72-w h/o COPD,HTN who presented with shortness of breath noted to have lung consolidation and cultures positive for MRSA pneumonia. Hospital course significant for chest tube placement on LEFT side pneumothorax which was subsequently removed. Patient on 04/24 with episode of SOB again and CXR with RIGHT sided pneumothorax formation with critical care consulted urgently overnight for placement of RIGHT sided chest tube. Patient was clinically stable otherwise and sent to [facility] for further management afterwards but on 04/26 in afternoon developed worsening SOB. Repeat CXR obtained showed what appears to be expanded pneumothorax on RIGHT side with evidence of 2+ air leak on chest tube. Critical care consulted and patient transferred to ICU for closer monitoring and was stabilized when chest tube was pulled back by approx 3cm with resolution of air leak and re-expansion of the lung with CXR confirmation. Critical care/pulmonary: Acute hypoxic respiratory failure, left-sided pneumothorax w/ LEFT sided chest tube, MRSA pneumonia, prior MRSA bacteremia, COPD, RE-expansion RIGHT sided pneumothorax with air leakage s/p intervention by critical care and treatment. Patient status post extubation in the ICU on 04/13. Suspected to have occurred in the setting of anaphylactic reaction to vancomycin. CT imaging reviewed via EMR. Consolidation of right upper lobe noted. Increased cavitation of the large left upper lobe lesion seen. MRSA bacteremia on 04/05, 04/07. DEEDEE on 04/08 without evidence of vegetation. Pulmonary consulted recommendations appreciated Left lower lobe 1.5 cm pulmonary nodule recommend outpatient PET scan on follow -up Continue DuoNeb every 4 hour - chest tube to suction at 40 for now. Maintain oxygen saturation 90-92% with history of COPD Antibiotics:Linezolid,Daptomycin Ceftaroline Infectious disease/pulmonary recommendations appreciated Neurology: Acute metabolic encephalopathy Suspected to be in the setting of sepsis. Currently resolved MRI brain reviewed. Small chronic changes no acute finding of lesions or abscess CODE STATUS: Full code DVT prophylaxis: Lovenox subcu Disposition: Keep in ICU under hospitalist team. ID/Pulm following. Patient remains scute with recent mulitple pneumo and MRSA pneumonia. Progress Note: Quality VTE Deep Vein Thrombosis/Pulmonary Embolism Present on Admission: No
--- NOTE | 2018-04-29 17:43 | P.PNPL ---
Subjective Interval history: 72 YOWM with MRSA Pn, cavitary lesion, COPD, Lt ptx mild sob Congested, not bringing up sp No Fever On 2LNC c/o mild pulm congestion Physical Exam Vital signs: Vital Signs 04/28/18 18:00 04/28/18 19:00 04/28/18 19:36 Temperature Pulse Rate 115 H 111 H 114 H Respiratory Rate 38 H 30 H 38 H Blood Pressure 106/58 L 116/69 Pulse Oximetry 99 96 96 04/28/18 20:00 04/28/18 21:00 04/28/18 22:00 Temperature Pulse Rate 117 H 114 H 93 H Respiratory Rate 43 H 28 H 27 H Blood Pressure 121/77 118/68 118/72 Pulse Oximetry 95 96 96 04/28/18 23:00 04/28/18 23:12 04/28/18 23:23 Temperature Pulse Rate 90 95 H Respiratory Rate 40 H 28 H 35 H Blood Pressure 119/79 Pulse Oximetry 94 L 04/29/18 00:00 04/29/18 01:00 04/29/18 02:00 Temperature 98.6 F Pulse Rate 93 H 102 H 98 H Respiratory Rate 27 H 30 H 27 H Blood Pressure 110/66 113/74 110/67 Pulse Oximetry 96 94 L 95 04/29/18 03:00 04/29/18 03:25 04/29/18 04:00 Temperature 98.4 F Pulse Rate 97 H 107 H 107 H Respiratory Rate 25 H 28 H 47 H Blood Pressure 103/62 Pulse Oximetry 96 93 L 04/29/18 04:01 04/29/18 06:00 04/29/18 07:00 Temperature 98.4 F Pulse Rate 109 H 110 H 104 H Respiratory Rate 44 H 24 Blood Pressure 114/66 104/60 Pulse Oximetry 95 99 04/29/18 07:30 04/29/18 08:00 04/29/18 09:00 Temperature Pulse Rate 110 H 113 H 93 H Respiratory Rate 27 H 25 H Blood Pressure 118/85 101/69 Pulse Oximetry 94 L 97 04/29/18 10:00 04/29/18 10:01 04/29/18 11:00 Temperature Pulse Rate 90 90 89 Respiratory Rate 28 H 24 Blood Pressure 121/81 Pulse Oximetry 94 L 93 L 04/29/18 11:16 04/29/18 11:18 04/29/18 11:59 Temperature Pulse Rate 91 H 93 H Respiratory Rate Blood Pressure 125/84 Pulse Oximetry 90 L 94 L 04/29/18 12:00 04/29/18 12:53 04/29/18 13:00 Temperature 98.6 F Pulse Rate 91 H 102 H 103 H Respiratory Rate 26 H Blood Pressure 113/69 115/73 Pulse Oximetry 94 L 95 95 04/29/18 14:00 04/29/18 14:56 04/29/18 15:00 Temperature Pulse Rate 102 H 109 H 103 H Respiratory Rate 28 H 24 Blood Pressure 105/71 112/73 Pulse Oximetry 95 91 L 04/29/18 16:00 Temperature Pulse Rate 110 H Respiratory Rate Blood Pressure 109/72 Pulse Oximetry 95 Intake & Output 04/28/18 04/29/18 04/29/18 18:59 06:59 18:59 Intake Total 1020 / 1020 580 / 580 1160 / 1160 Output Total 575 / 575 225 / 225 800 / 800 Balance 445 / 445 355 / 355 360 / 360 Weight 74.5 kg Intake: IV 300 / 300 100 / 100 200 / 200 Teflaro Inj 600 MG In NS Inj 200 / 200 100 / 100 100 / 100 100 ML @ 100 mls/hr IV.SIG Q12H [facility] Rx#:[id number] Cubicin Inj 1,000 MG In NS Inj 100 / 100 100 / 100 100 ML @ 200 mls/hr IV.SIG Q24H [facility] Rx#:[id number] Oral 720 / 720 480 / 480 960 / 960 Output: Urine 575 / 575 225 / 225 800 / 800 Other: Date of Last Bowel Movement 04/28/18 04/28/18 04/29/18 # Bowel Movements 1 0 1 GENERAL: MBMn NAD SKIN: Warm and dry. HEAD: Normocephalic. EYES: No scleral icterus. No injection or drainage. NECK: Supple, trachea midline. No JVD or lymphadenopathy. CARDIOVASCULAR: Regular rate and rhythm without murmurs, gallops, or rubs. RESPIRATORY: Breath sounds equal bilaterally. No accessory muscle use. Rt chest tube to suction SQ Emphysema improving GASTROINTESTINAL: Abdomen soft, non-tender, nondistended. MUSCULOSKELETAL: No cyanosis, or edema. BACK: Nontender without obvious deformity. No CVA tenderness. - Urinary Catheter Management Indwelling Urethral Catheter Cath placed during this visit: yes, but has since been removed by the nurse Reason for continuing: Acute urinary retention Insertion date: 04/05/18 Insertion time: 23:00 Removal date: 04/12/18 Removal time: 08:30 Condom Cath placed during this visit: no Reason for continuing: Acute urinary retention Straight Cath placed during this visit: yes Reason for continuing: Acute urinary retention Insertion date: 04/08/18 Insertion time: 18:00 Assessment and Plan - Plan IMPRESSION: 1. MRSA pneumonia. 2. Cavitary pneumonia. 4. Chronic obstructive pulmonary disease. 5. Hypotension. 6. Left pneumothorax, status post chest tube.removal 7. Nicotine use. 8. Right Ptx PLAN: Cont Abx per ID Ceftaroline, Zyvox, Daptomycin Aerosol nebs Supplement 02 SQ lovenox Encourage to use Acapella Clamp chest tube. CXR in AM GUERLINE RN at BS
--- NOTE | 2018-04-29 18:38 | XR ---
EXAM DATE: 04/29/2018 6:32 PM EST AGE/SEX: 72 years / Male INDICATIONS: Short of breath. CLINICAL DATA: This is the patient's subsequent encounter. Patient reports that signs and symptoms h ave been present for 3 weeks and indicates a pain score of 0/10. MEDICAL/SURGICAL HISTORY: . Chronic obstructive pulmonary disease. Hypertension. MRSA. Chest tube, right. COMPARISON: [facility], CHEST 1V SINGLE AP, 04/28/2018. . FINDINGS: There is a right-sided chest tube. There does appear to be a right pneumothorax with air seen over th e right upper chest. This appears new. There are areas in the right upper lung which have no pulmonar y vascular markings. There is an area of linear suspected scarring in the right upper lung. There are some focal areas of air seen in the right lower chest potentially within the subpulmonic portions of the right chest The heart and mediastinum appear grossly in the midline. This increased density at t he mid and lower right chest with silhouetting of the right hemidiaphragm. There is subcutaneous emph ysema seen in the right chest. There is mild increased density at the left base with blunting of the left costophrenic angle. CONCLUSION: Suspected development of areas of pneumothorax of the right upper lung despite a right chest tube. Suspected area of scarring over the right upper lung. Increased density at the mid and lower right chest related to consolidation, atelectasis and/or effus ion. There may be some subpulmonic air seen on the right side. Left base atelectasis or consolidation with a possible minimal left pleural effusion. This information will be relayed to the floor. Electronically signed by: Akash Worley MD Board Certified Radiologist 04/29/2018 6:37 PM EST
[2018-04-29] MEDS: Enoxaparin Inj 40 MG/0.4 ML Syringe SQ SCH (23:04)
--- NOTE | 2018-04-30 03:57 | XR ---
EXAM DATE: 04/30/2018 3:39 AM EST AGE/SEX: 72 years / Male INDICATIONS: Shortness of breath, possible pneumothorax. CLINICAL DATA: This is the patient's subsequent encounter. Patient reports that signs and symptoms h ave been present for 3 weeks and indicates a pain score of 5/10. MEDICAL/SURGICAL HISTORY: Chronic obstructive pulmonary disease. Hypertension. MRSA. Chest tu be, right. COMPARISON: [facility] [place], CHEST 1V SINGLE AP, 04/29/2018. . FINDINGS: Small-caliber right chest tube present. Multiple locules of air are seen in the mid and lower right h emithorax probably within the pleural space. Right effusion persists. Extensive subcutaneous air in t he right chest wall. Mild left basilar opacity. No pneumothorax. Tortuous aorta. CONCLUSION: Small-caliber right chest tube with probable loculated right pneumothorax. Right pleural effusion. Fi ndings are similar to April 29. Electronically signed by: Francisco Alonzo MD Board Certified Radiologist 04/30/2018 3:55 AM EST
[2018-04-30] MEDS: Artificial Tears Opth Drops 15 ML Bottle EACH EYE SCH ×3 (05:27→20:13)
[2018-04-30] MEDS: guaiFENesin 600 MG ER Tablet PO SCH ×2 (08:20→20:13)
[2018-04-30] MEDS: Famotidine 20 MG Tablet PO SCH (08:20)
[2018-04-30] MEDS: Docusate Sodium 100 MG Capsule PO SCH ×3 (08:20→20:12)
[2018-04-30] MEDS: Chlorhexidine 0.12% Oral Kit 15 ML UDC OROPHARYNG SCH ×2 (08:21→20:12)
[2018-04-30] MEDS: Linezolid 600 MG Tablet PO SCH ×2 (08:21→21:29)
[2018-04-30] MEDS: Metoprolol Tartrate 100 MG Tablet PO SCH ×2 (08:21→20:13)
[2018-04-30] MEDS: Sodium Chloride 0.9% 2 ML Flush BID IV.FLUSH SCH ×2 (08:21→20:13)
[2018-04-30] MEDS: Sennosides Liq 8.8 MG/5 ML UDC PO SCH (08:22)
[2018-04-30] MEDS: DAPTOmycin Inj 1,000 MG in Sodium Chlor 0.9% Inj 100 ML IV.SIG SCH (12:18)
--- NOTE | 2018-04-30 14:41 | P.PNIM ---
Subjective Interval history: patient says he feels ok. coughing but no phlegm coming out. no chest pain. says he does not feel short of breath. Interval changes-CXR showing new areas of pneumothorax in RUL, new rt pleural effusion. Physical Exam Vital signs: Vital Signs 04/29/18 14:56 04/29/18 15:00 04/29/18 16:00 Temperature Pulse Rate 109 H 103 H 110 H Respiratory Rate 24 Blood Pressure 112/73 109/72 Pulse Oximetry 91 L 95 04/29/18 17:00 04/29/18 18:00 04/29/18 18:01 Temperature Pulse Rate 114 H 123 H 124 H Respiratory Rate 39 H 38 H 43 H Blood Pressure 116/77 137/90 Pulse Oximetry 93 L 93 L 96 04/29/18 19:00 04/29/18 19:38 04/29/18 20:00 Temperature 98.6 F Pulse Rate 118 H 101 H 121 H Respiratory Rate 30 H 21 37 H Blood Pressure 108/75 116/77 Pulse Oximetry 96 94 L 93 L 04/29/18 21:00 04/29/18 22:00 04/29/18 23:00 Temperature Pulse Rate 112 H 96 H 94 H Respiratory Rate 29 H 32 H 36 H Blood Pressure 107/72 108/71 117/81 Pulse Oximetry 97 95 94 L 04/29/18 23:27 04/29/18 23:28 04/30/18 00:00 Temperature 97.6 F Pulse Rate 94 H 96 H Respiratory Rate 17 28 H Blood Pressure 106/72 Pulse Oximetry 93 L 96 04/30/18 01:00 04/30/18 02:00 04/30/18 03:00 Temperature 97.7 F Pulse Rate 96 H 99 H 101 H Respiratory Rate 22 27 H 27 H Blood Pressure 108/72 104/68 107/70 Pulse Oximetry 91 L 92 L 94 L 04/30/18 04:00 04/30/18 06:00 04/30/18 07:00 Temperature 98.4 F Pulse Rate 106 H 84 110 H Respiratory Rate 32 H 30 H Blood Pressure 107/71 117/78 Pulse Oximetry 91 L 95 04/30/18 07:33 04/30/18 08:00 04/30/18 08:01 Temperature Pulse Rate 112 H 120 H 125 H Respiratory Rate 16 27 H Blood Pressure 90/67 L Pulse Oximetry 92 L 92 L 92 L 04/30/18 08:15 04/30/18 09:00 04/30/18 10:00 Temperature Pulse Rate 126 H 118 H 114 H Respiratory Rate 26 H 25 H Blood Pressure 111/76 105/65 Pulse Oximetry 92 L 94 L 04/30/18 11:00 04/30/18 11:49 04/30/18 12:00 Temperature 98.2 F Pulse Rate 91 H 84 91 H Respiratory Rate 28 H Blood Pressure Pulse Oximetry 94 L 95 04/30/18 12:10 04/30/18 14:00 Temperature Pulse Rate 91 H 98 H Respiratory Rate Blood Pressure 107/71 Pulse Oximetry 95 Intake & Output 04/29/18 04/30/18 04/30/18 18:59 06:59 18:59 Intake Total 1160 / 1160 2209 / 2209 300 / 300 Output Total 800 / 800 450 / 450 Balance 360 / 360 1759 / 1759 300 / 300 Weight 75.5 kg Intake: IV 200 / 200 300 / 300 Teflaro Inj 600 MG In NS Inj 100 / 100 200 / 200 100 ML @ 100 mls/hr IV.SIG Q12H [facility] Rx#:[id number] Cubicin Inj 1,000 MG In NS Inj 100 / 100 100 / 100 100 ML @ 200 mls/hr IV.SIG Q24H [facility] Rx#:[id number] Oral 960 / 960 240 / 240 Oral Supplement 900 / 900 Tube Feeding 169 / 169 Water Bolus Amount 900 / 900 Output: Urine 800 / 800 450 / 450 Stool 0 / 0 Urine/Stool Mix 0 / 0 Chest Tube Drainage 0 / 0 Right 0 / 0 Other: # Voids 3 # Incontinent Voids 0 Date of Last Bowel Movement 04/29/18 04/29/18 04/29/18 # Bowel Movements 1 1 # Incontinent Bowel Movements 1 Narrative: GENERAL: elderly man,not in distress. HEENT:not pale,anicteric CARDIOVASCULAR:mildly tachycardic,regular rhythm,s1s2 normal without murmurs, gallops, or rubs. CHEST: mild tachypnea,Rt chest tube in situ,reduced air entry right mid and lower zones, no wheezes, rales, or rhonchi. GASTROINTESTINAL: Abdomen soft, non-tender, nondistended. Normal active bowel sounds MUSCULOSKELETAL: Extremities without clubbing, cyanosis, or edema. NEURO: Alert & Oriented x4 to person, place, time, situation. Moves all ext x4 Urinary Catheter Management Indwelling Urethral Catheter: Cath placed during this visit: yes, but has since been removed by the nurse Reason for continuing: Acute urinary retention Insertion date: 04/05/18 Insertion time: 23:00 Removal date: 04/12/18 Removal time: 08:30 Condom: Cath placed during this visit: no Reason for continuing: Acute urinary retention Straight: Cath placed during this visit: yes Reason for continuing: Acute urinary retention Insertion date: 04/08/18 Insertion time: 18:00 Results Labs CBC & Chem 7: 04/28/18 04:35 04/29/18 02:45 Labs: Microbiology 04/28/18 05:35 Sputum - Expectorated Sputum Gram Stain - Final 04/28/18 05:35 Sputum - Expectorated Sputum Sputum Culture - Final S. aureus MRSA Imaging Imaging: Impressions Chest X-Ray 04/29/18 00:00 CONCLUSION: Suspected development of areas of pneumothorax of the right upper lung despite a right chest tube. Suspected area of scarring over the right upper lung. Increased density at the mid and lower right chest related to consolidation, atelectasis and/or effusion. There may be some subpulmonic air seen on the right side. Left base atelectasis or consolidation with a possible minimal left pleural effusion. This information will be relayed to the floor. Chest X-Ray 04/30/18 07:00 CONCLUSION: Small-caliber right chest tube with probable loculated right pneumothorax. Right pleural effusion. Findings are similar to April 29. Assessment and Plan Plan 72-w h/o COPD,HTN who presented with shortness of breath noted to have lung consolidation and cultures positive for MRSA pneumonia. Hospital course significant for chest tube placement on LEFT side pneumothorax which was subsequently removed. Patient on 04/24 with episode of SOB again and CXR with RIGHT sided pneumothorax formation with critical care consulted urgently overnight for placement of RIGHT sided chest tube. Patient was clinically stable otherwise and sent to [facility] for further management afterwards but on 04/26 in afternoon developed worsening SOB. Repeat CXR obtained showed what appears to be expanded pneumothorax on RIGHT side with evidence of 2+ air leak on chest tube. Critical care consulted and patient transferred to ICU for closer monitoring and was stabilized when chest tube was pulled back by approx 3cm with resolution of air leak and re-expansion of the lung with CXR confirmation. Critical care/pulmonary: Acute hypoxic respiratory failure, left-sided pneumothorax w/ LEFT sided chest tube, MRSA pneumonia, prior MRSA bacteremia, COPD, RE-expansion RIGHT sided pneumothorax with air leakage s/p intervention by critical care and treatment. Patient status post extubation in the ICU on 04/13. Suspected to have occurred in the setting of anaphylactic reaction to vancomycin. CT imaging reviewed via EMR. Consolidation of right upper lobe noted. Increased cavitation of the large left upper lobe lesion seen. MRSA bacteremia on 04/05, 04/07. DEEDEE on 04/08 without evidence of vegetation. Pulmonary consulted recommendations appreciated Left lower lobe 1.5 cm pulmonary nodule recommend outpatient PET scan on follow -up Continue DuoNeb every 4 hour - chest tube to suction at 40 for now. Maintain oxygen saturation 90-92% with history of COPD Antibiotics:Linezolid,Daptomycin Ceftaroline Infectious disease/pulmonary recommendations appreciated 04/30-CXR noted to have probable loculated rt pneumothorax and new pleural effusion. patient appears tachypneic today even though he denies feeling short of breath.I re-evaluated patient and clinically appeared more tachypneic. Will consult the [facility] letter [facility] to re-evaluate patient given worsening of respiratory status. -[facility] letter [facility] re-evaluated patient,will need to re-intubate, and he will be transferred back to [facility] service. Neurology: Acute metabolic encephalopathy Suspected to be in the setting of sepsis. Currently resolved MRI brain reviewed. Small chronic changes no acute finding of lesions or abscess CODE STATUS: Full code DVT prophylaxis: Lovenox subcu Disposition: transfer to [facility] letter [facility] service. Progress Note: Quality VTE Deep Vein Thrombosis/Pulmonary Embolism Present on Admission: No
[2018-04-30] MEDS ORDERED: Etomidate Inj 40 MG/20 ML Vial IV.PUSH ONE (15:32)
[2018-04-30] MEDS ORDERED: Midazolam Inj 5 MG/ML 1 ML Vial ONE (15:32)
[2018-04-30] MEDS ORDERED: Propofol Inj 500 MG/50 ML Vial ONE (15:33)
--- NOTE | 2018-04-30 15:41 | P.DIET ---
Nutritional Evaluation Type of nutrition evaluation: follow-up Nutrition consult regarding: Diet Evaluation Screening comments: 04/06/18 TF review Objective - Diagnosis respiratory failure, pneumonia, allergic reaction - Objective % IBW: 108 (IBW = 178lb) Body Weight Used for Calculations: Actual (88kg) Energy Needs - Lower Range (kCal/kg): 25 Energy Needs - Upper Range (kCal/kg): 30 Lower Limit kCal/kg (kCals): 2,200 Upper Limit kCal/kg (kCals): 2,640 Lower Limit Protein Factor (Grams per Kg): 1.1 Upper Limit Protein Factor (Grams per Kg): 1.3 Lower Protein Needs (Protein): 97 Upper Protein Needs (Protein): 114 Dietitian Reviewed in Medical Record: Curent medications, Intake & Output, Labs , Medical history, Tube feeding Diet Order: cardiac, 2gNa Oral Diet Intake Amount: Good 75-90% Speech Therapy Recommendations: Yes (regular, thin liquids) Objective Comments: PMH: COPD, hx of MRSA, HTN Labs: random glucose 115 Skin: Pressure Ulcer (L Buttocks) LBM 04/29/18 Assessment Assessment: Pt continues on a cardiac, 2gNA diet. Spoke w/ IGLESIA Miller about pts PO intake, per RN pt has a good appetite and consuming most meals. RN added, pt consuming his supplements as well. RD will continue to monitor pts nutritional status for a PO supplement. Continue to monitor PO intake. Labs reviewed, dietitian following. Recommendations: 1. Continue 2gNA cardiac diet w/ Ensure Enlive BID 2. Encourage PO intake and provide feed assistance as needed 3. Continue to monitor PO intake 4. Dietitian following Dietitian to Monitor: Lab values, Glucose level, Supplement acceptance, Intake & Output, Diet tolerance, Weight change, PO Intake, Medical course
--- NOTE | 2018-04-30 15:52 | P.PNCC ---
Subjective Subjective Remarks/Hospital Course: Patient is 72-year-old male with past medical history of COPD, tobacco abuse and hypertension who came to the emergency room for shortness of breath via EMS. On EMS arrival saturation was in the 90s, but patient had significant shortness of breath and dyspnea. Patient received Solu-Medrol 125 mg IV and breathing treatments by EMS and was brought to the emergency department. In the emergency department patient received further breathing treatments and chest x-ray showed patchy infiltrate on bilateral lung fitzgerald. Initially maintaining oxygen saturation with nasal cannula. Initial blood pressure was 85 /65, improved with normal saline boluses. WBC count was 17.1. Patient was deemed septic from pneumonia and patient was ordered to receive vancomycin and Zosyn. While receiving vancomycin patient acutely decompensated became extremely short of breath and developed erythematous maculopapular rash involving face torso armpits and groin region. Emergently intubated and placed on mechanical ventilation by the ED physician. Received IV 50 mg Benadryl. Critical care medicine was requested to admit the patient. I evaluated the patient immediately in the emergency department. Patient is intubated on Versed and fentanyl infusion however he is very asynchronous with the vent triggering ventilator alarms. Severe bilateral expiratory wheezing heard on auscultation. He has extensive skin rash predominantly face forehead torso armpit and groins. Appears like patient had anaphylactic reaction to vancomycin complicated by COPD exacerbation and pneumonia. I have ordered additional Solu-Medrol 100 mg x1 scheduled Benadryl and famotidine, antibiotics with cefepime and Levaquin. Increase Versed infusion, add propofol and use neuromuscular paralysis as needed. Will request pharmacy to add vancomycin to allergy. ED physician Dr. Slater had noticed that patient had some swelling on the left side of his face on arrival, however the skin rash after vancomycin was started was new. Patient remains hypotensive has received 2 L of normal saline in the emergency department and no significant urine output. I have ordered additional 2 L normal saline bolus and maintenance fluid at 84 mL/h. Use Levophed as needed to keep map above 65 Subjective 04/06: Off norepinephrine drip. Currently resting in bed in no acute distress on midazolam and fentanyl drips. Start tube feeding today. 04/07: Remains sedated, intubated on mechanical ventilation. Blood cultures growing MRSA 04/08: remains sedated and intubated. repeat cultures still growing MRSA 2/4 cultures. likely need to repeat BCx either today or tomorrow. agree with narrowing spectrum abx. performed DEEDEE at ID recommendation (need to r/o endocarditis), but no evidence of vegetations. remains hypoxic. off vasopressors today. 04/09: adequate auto-diuresis overnight. off vasopressors. on sedation vacation. hypoxia improving. 04/10 Patient remains intubated and sedated with Fentanyl infusion. Became tachycardic and tachypneic overnight requiring increase sedation. Afebrile. 04/11 Patient is intubated and sedated. Afebrile. 04/12 Patient remains intubated and sedated with Diprivan and Fentanyl infusion, Afebrile. 04/13: Sedated, easily arousable, orally intubated on mechanical ventilation. 04/14 Patient was extubated yesterday. Afebrile. 04/15 Patient is lying in bed in NAD. On 3L oxygen. Awake and alert. 04/16 Patient is on partial rebreather. Afebrile. Awake and alert. 04/17: Left-sided chest tube placed for pneumothorax yesterday. On nasal cannula currently. Awake and alert. Appears comfortable. No air leak noted in Pleur-evac 04/18: Remains on nasal cannula. No air leak noted from left-sided chest tube. 04/19: On 5 L nasal cannula. Chest tube in place, no air leak noted. Resting in bed comfortably, no acute distress. Continues to have productive cough. 04/20: Remains on nasal cannula. Chest tube in place, no air leak noted. Resting in bed comfortably. 04/24: RECONSULT NOTE: called emergently by Hospitalist team. patient with new acute respiratory distress. Chest x-ray demonstrates new large right-sided pneumothorax. I went to evaluate the patient is seen in significant distress. I emergently placed right-sided pigtail chest tube. Significant denney of air with no air leak on chest tube. Respiratory distress improved after chest tube placement. Repeat interval chest x-ray demonstrates good placement of chest tube with resolution of pneumothorax. 04/26/18: RECONSULT NOTE: [facility] reconsulted for rexpansion of right pneumothorax. Patient developed increased SOB today without improvement with nebulizer. STAT CXR Moderate to large right pneumothorax has redeveloped and with a probable tension component. He appears to be in moderate distress tachypneic. Patient was moved to the ICU where I evaluated the patient emergently. The right pigtail chest tube is still in place, minimal air leak. I flushed the chest tube but was difficult to withdraw air. I then pulled back the chest tube by approximately 3 cm. Able to withdraw air more easily and on connection to the Vacutainer again there was significant air leak in all chambers. Patient subjectively felt improvement in shortness of breath after chest tube placement. Stat repeat chest x-ray shows near complete reexpansion of the right knee 04/30/18: [facility] RECONSULT NOTE: Critical care, reconsult for worsening respiratory failure. I evaluate the patient urgently. He is very tachypneic diaphoretic. Chest x-ray today showed possible right upper lobe pneumothorax and increasing right effusion. I did an emergent bedside ultrasound which shows probably loculated complicated right pleural effusion. Patient likely needs more further imaging and procedures and in very labored breathing. Proceeded with endotracheal intubation in place patient on mechanical ventilation. I explained plan of care prior to intubation. He understands that he may need emergency chest tube placement and also may need surgical intervention/ Objective Vital Signs / I&O: Vital Signs 04/29/18 16:00 04/29/18 17:00 04/29/18 18:00 Temperature Pulse Rate 110 H 114 H 123 H Respiratory Rate 39 H 38 H Blood Pressure 109/72 116/77 Pulse Oximetry 95 93 L 93 L 04/29/18 18:01 04/29/18 19:00 04/29/18 19:38 Temperature Pulse Rate 124 H 118 H 101 H Respiratory Rate 43 H 30 H 21 Blood Pressure 137/90 108/75 Pulse Oximetry 96 96 94 L 04/29/18 20:00 04/29/18 21:00 04/29/18 22:00 Temperature 98.6 F Pulse Rate 121 H 112 H 96 H Respiratory Rate 37 H 29 H 32 H Blood Pressure 116/77 107/72 108/71 Pulse Oximetry 93 L 97 95 04/29/18 23:00 04/29/18 23:27 04/29/18 23:28 Temperature Pulse Rate 94 H 94 H Respiratory Rate 36 H 17 Blood Pressure 117/81 Pulse Oximetry 94 L 93 L 04/30/18 00:00 04/30/18 01:00 04/30/18 02:00 Temperature 97.6 F Pulse Rate 96 H 96 H 99 H Respiratory Rate 28 H 22 27 H Blood Pressure 106/72 108/72 104/68 Pulse Oximetry 96 91 L 92 L 04/30/18 03:00 04/30/18 04:00 04/30/18 06:00 Temperature 97.7 F Pulse Rate 101 H 106 H 84 Respiratory Rate 27 H 32 H Blood Pressure 107/70 107/71 Pulse Oximetry 94 L 91 L 04/30/18 07:00 04/30/18 07:33 04/30/18 08:00 Temperature 98.4 F Pulse Rate 110 H 112 H 120 H Respiratory Rate 30 H 16 27 H Blood Pressure 117/78 Pulse Oximetry 95 92 L 92 L 04/30/18 08:01 04/30/18 08:15 04/30/18 09:00 Temperature Pulse Rate 125 H 126 H 118 H Respiratory Rate 26 H Blood Pressure 90/67 L 111/76 105/65 Pulse Oximetry 92 L 92 L 94 L 04/30/18 10:00 04/30/18 11:00 04/30/18 11:49 Temperature Pulse Rate 114 H 91 H 84 Respiratory Rate 25 H 28 H Blood Pressure Pulse Oximetry 94 L 04/30/18 12:00 04/30/18 12:10 04/30/18 14:00 Temperature 98.2 F Pulse Rate 91 H 91 H 98 H Respiratory Rate Blood Pressure 107/71 Pulse Oximetry 95 95 04/30/18 15:15 Temperature Pulse Rate 107 H Respiratory Rate 28 H Blood Pressure Pulse Oximetry Intake & Output 04/29/18 04/30/18 04/30/18 18:59 06:59 18:59 Intake Total 1160 / 1160 2209 / 2209 300 / 300 Output Total 800 / 800 450 / 450 Balance 360 / 360 1759 / 1759 300 / 300 Weight 75.5 kg Intake: IV 200 / 200 300 / 300 Teflaro Inj 600 MG In NS Inj 100 / 100 200 / 200 100 ML @ 100 mls/hr IV.SIG Q12H [facility] Rx#:[id number] Cubicin Inj 1,000 MG In NS Inj 100 / 100 100 / 100 100 ML @ 200 mls/hr IV.SIG Q24H [facility] Rx#:[id number] Oral 960 / 960 240 / 240 Oral Supplement 900 / 900 Tube Feeding 169 / 169 Water Bolus Amount 900 / 900 Output: Urine 800 / 800 450 / 450 Stool 0 / 0 Urine/Stool Mix 0 / 0 Chest Tube Drainage 0 / 0 Right 0 / 0 Other: # Voids 3 # Incontinent Voids 0 Date of Last Bowel Movement 04/29/18 04/29/18 04/29/18 # Bowel Movements 1 1 # Incontinent Bowel Movements 1 Result Diagrams: 04/28/18 04:35 04/29/18 02:45 Objective Remarks: GENERAL: Patient is lying in bed in severe respiratory distress, diaphoretic SKIN: Warm and dry. HEAD: Atraumatic. Normocephalic. EYES: Pupils equal and round. No scleral icterus. ENT: No nasal bleeding or discharge. Mucous membranes moist. Oral cavity is patent NECK: Trachea midline. No JVD. CARDIOVASCULAR: Tachycardic rate and rhythm. sinus. RESPIRATORY: Significant accessory muscle use, labored breathing. Hyperresonant to percussion over the right upper chest wall. Coarse crackles right base. Currently in severe respiratory distress. Subcutaneous emphysema present on the right chest wall. Right chest tube in place with minimal air leak GASTROINTESTINAL: Abdomen soft, non-tender, nondistended. no guarding. MUSCULOSKELETAL: Extremities without clubbing, cyanosis, or edema. No obvious deformities. NEUROLOGICAL: Awake and alert. In severe. Moving all extremities. Follows commands. Assessment and Plan - Problem List (1) Anaphylaxis Code(s): T78.2XXA - Anaphylactic shock, unspecified, initial encounter Status : Acute (2) COPD with acute exacerbation Code(s): J44.1 - Chronic obstructive pulmonary disease with (acute) exacerbation Status: Acute (3) Bilateral pneumonia Code(s): J18.9 - Pneumonia, unspecified organism Status: Acute (4) Allergic reaction caused by a drug Code(s): T78.40XA - Allergy, unspecified, initial encounter Status: Acute (5) Acute respiratory failure Code(s): J96.00 - Acute respiratory failure, unspecified whether with hypoxia or hypercapnia Status: Acute (6) Severe sepsis Code(s): A41.9 - Sepsis, unspecified organism; R65.20 - Severe sepsis without septic shock Status: Acute (7) Leukocytosis Code(s): D72.829 - Elevated white blood cell count, unspecified Status: Acute (8) Hypotension Code(s): I95.9 - Hypotension, unspecified Status: Acute (9) Acute kidney injury Code(s): N17.9 - Acute kidney failure, unspecified Status: Acute (10) Hyponatremia Code(s): E87.1 - Hypo-osmolality and hyponatremia Status: Acute (11) Hyperglycemia Code(s): R73.9 - Hyperglycemia, unspecified Status: Acute (12) History of hypertension Code(s): Z86.79 - Personal history of other diseases of the circulatory system Status: Chronic (13) Tobacco abuse Code(s): Z72.0 - Tobacco use Status: Chronic (14) History of COPD Code(s): Z87.09 - Personal history of other diseases of the respiratory system Status: Chronic - Assessment and Plan Plan: Assessment: 72-year-old male with known necrotizing MRSA pneumonia and hypoxemia requiring supplemental oxygenation now with acute respiratory distress secondary to acute right pneumothorax. Status post emergent chest tube decompression. Critically ill. Now with what appears to be persistent right pneumothorax and loculated complicated right pleural effusion most likely parapneumonic Active problems: Acute hypoxemic respiratory failure Persistent right-sided pneumothorax Right-sided complicated pleural effusion probable empyema COPD with exacerbation MRSA bacteremia Severe sepsis MRSA pneumonia Plan: NEURO: -Propofol and fentanyl for sedation and ventilator synchrony after intubation -Daily sedation vacation RESP: -PRVC/AC, Ventilator bundle -DuoNeb every 4 hours scheduled and as needed -Emergency stat CT of the chest with IV contrast to rule out loculated pneumothorax, complicated right pleural effusion/empyema -Continue right pigtail chest tube to suction -Infectious disease and Pulmonology is following -Continue antibiotics per ID CV: -Normal saline IV fluids 100 ml per hour -Levophed if needed to keep map above 50 GI: -N.p.o., IV famotidine : -Monitor renal function closely. Shine catheter if needed. ID: -Antibiotics per ID. Currently on Teflaro, Zyvox and daptomycin -Further cultures per ID HEME: -Monitor CBC, coags ENDO: -Electrolyte replacement per protocol -Sliding scale insulin if needed PROPH: -Bilateral lower extremity SCDs. Lovenox/famotidine LINES: -Utilize peripheral IVs, central line if needed CC time 55 min excluding procedures This patient remains critically ill with one or more organ systems which are or may become a threat to life. I have spent in excess of 55 minutes discontinuously in the care and management of this patient. This time is exclusive of procedures, and includes, but is not limited to, evaluation of the patient, review of the medical record, discussions with family, consultants, nursing staff, or respiratory therapy, and documentation in the medical record. STAT CT showed Right-sided pigtail catheter in the right mid chest with a large right-sided pneumothorax remaining. There is extensive consolidation throughout the only aerated portions of the right lung with debris in the right bronchus and bronchus intermedius. There is multiloculated fluid collections in the right lower lobe and the right inferior lateral costophrenic angle could be multiloculated infection. After the CT was reviewed I reevaluate the positioning of the chest tube and it was noted that the chest tube may be obstructed. I flushed with normal saline and reopened the chest tube with now 1-2+ airleak. No need of additional chest tube at this time as the patient has no features of tension. Cardiothoracic surgery consulted for probable lung abscess and persistent pneumothorax (1) Anaphylaxis Qualifiers: Encounter type: initial encounter Qualified Code(s): T78.2XXA - Anaphylactic shock, unspecified, initial encounter (3) Bilateral pneumonia Qualifiers: Pneumonia type: due to unspecified organism Lung location: unspecified part of lung Qualified Code(s): J18.9 - Pneumonia, unspecified organism (4) Allergic reaction caused by a drug Qualifiers: Encounter type: initial encounter Qualified Code(s): T78.40XA - Allergy, unspecified, initial encounter (5) Acute respiratory failure Qualifiers: Respiratory failure complication: unspecified whether with hypoxia or hypercapnia Qualified Code(s): J96.00 - Acute respiratory failure, unspecified whether with hypoxia or hypercapnia (7) Leukocytosis Qualifiers: Leukocytosis type: unspecified Qualified Code(s): D72.829 - Elevated white blood cell count, unspecified (8) Hypotension Qualifiers: Hypotension type: unspecified hypotension type Qualified Code(s): I95.9 - Hypotension, unspecified
--- NOTE | 2018-04-30 16:20 | P.PCN ---
Date of procedure: 04/30/18 Pre-op diagnosis: Acute hypoxemic respiratory failure Post-op diagnosis: same Procedure: Endotracheal intubation PROCEDURE SUMMARY: I wore a surgical cap, mask. The patient was placed on appropriate morning sniffing position. Rapid Sequence Intubation was conducted. The patient received 20 mg IV push of etomidate, Versed 5 mg IV, rocuronium 50 mg IV. Cricoid pressure was maintained from time induction agent was given to time of cuff balloon inflation. Using a direct laryngoscope # 4 blade and a size 8.0 endotracheal tube with stylet, the patient was intubated on the first attempt, grade 2 view. The stylet was removed and cuff balloon was inflated. Appropriate endotracheal tube position was confirmed by direct visualization of vocal cord passage, fogging of the tube, CO2 colometric indicator and symmetric breath sounds. The tube was secured at 24 cm at the lips. Post intubation chest x-ray is pending at this time. Anesthesia: GETA Surgeon: Sonam Bustos Estimated blood loss (mL): 0 Pathology: none sent Condition: critical Disposition: ICU
--- NOTE | 2018-04-30 16:44 | CT ---
EXAM DATE: 04/30/2018 4:31 PM EST AGE/SEX: 72 years / Male INDICATIONS: Shortness of breath. CLINICAL DATA: This is the patient's initial encounter. Patient reports that signs and symptoms have been present for 1 day and indicates a pain score of Nonresponsive. MEDICAL/SURGICAL HISTORY: Chronic obstructive pulmonary disease. Hypertension. None. RADIATION DOSE: 12.24 CTDI (mGy) [place] [facility] [place]. . TECHNIQUE: Multiple contiguous axial images were obtained through the chest during bolus infusion of 70 ml Omnipaque 350 (iohexol) nonionic water-soluble contrast as a single exam dose. Images were obtained in suspended respiration using multiple row detector helical technique. Using automated exp osure control and adjustment of the mA and/or kV according to patient size, radiation dose was kept a s low as reasonably achievable to obtain optimal diagnostic quality images. DICOM format image data is available electronically for review and comparison. FINDINGS: Lungs: The patient has a right-sided pigtail catheter placed anteriorly. Despite that there is a paul y large pneumothorax anteriorly. There is extensive consolidation of the right lung including almost the entire right lower lobe and portions of the right middle lobe. There is no significant aeration o f the right upper lobe. There are number of fluid-filled cavities in the right pleural space inferior ly. There is a small cavity in the left upper lobe. Mediastinum: There is soft tissue in the right main bronchus and the bronchus intermedius. Bronchosc opy is recommended to evaluate for an obstructing mass. Numerous small mediastinal lymph nodes. ET tu be in good position. Pleurae: There is a small left pleural effusion with mild adjacent passive atelectasis. There may be some soft tissue thickening left lateral pleura measuring 2.2 cm across. Axillae: Unremarkable. Extensive air throughout the right chest wall Bony Structures: Unremarkable. Miscellaneous: The examination was extended to include the upper abdomen, and both adrenal glands ar e normal in size and configuration. CONCLUSION: 1. Right-sided pigtail catheter identified in the right mid chest with a very large right-sided pneu mothorax remaining. There is extensive consolidation throughout the only aerated portions of the righ t lung with debris in the right bronchus and bronchus intermedius. Bronchoscopy would be helpful to b mario evaluate the bronchial contents. 2. There is multiloculated fluid collections in the right lower lobe and the right inferior lateral costophrenic angle could be multiloculated infection. 3. Small pleural effusion and some pleural thickening of the left chest. Electronically signed by: Chiki Yu MD Board Certified Radiologist 04/30/2018 4:42 PM EST
--- NOTE | 2018-04-30 16:49 | XR ---
EXAM DATE: 04/30/2018 4:41 PM EST AGE/SEX: 72 years / Male INDICATIONS: ET tube placement. CLINICAL DATA: This is the patient's subsequent encounter. Patient reports that signs and symptoms h ave been present for 1 day and indicates a pain score of 0/10. MEDICAL/SURGICAL HISTORY: . Chronic obstructive pulmonary disease. Hypertension. MRSA. Chest t ube, right. None. COMPARISON: [facility] – [place]ST 1V SINGLE AP, 04/30/2018. . FINDINGS: Single view the chest centered the ET tube in good position. The right-sided pigtail catheter in good position. The significant pleural or remaining anteriorly. Some locules in the right lung base. Ther e is extensive air in the chest wall on the right. Left lung is relatively clear. There is mildly tor tuous. CONCLUSION: ET tube has been placed in excellent position between the clavicles and the haseeb. Extensive fluid a nd air throughout the right thoracic cavity. Right-sided pigtail catheter of the mid chest in good po sition Electronically signed by: Chiki Yu MD Board Certified Radiologist 04/30/2018 4:47 PM EST
[2018-04-30] MEDS ORDERED: fentaNYL 10 mcg/mL Premix Drip 2,500 MCG/250 ML BAG IV.SIG PRN (17:08)
[2018-04-30 17:17] LABS: ABG Base Excess 9.2 mmol/L (-2-2); ABG PCO2 51 mmHg (38-42); ABG PO2 114 mmHG (61-120)
[2018-04-30] MEDS: Phenylephrine Inj 40 MG in Dextrose 5% in Water Inj 496 ML IV.CONT PRN ×4 (17:30→23:44)
[2018-04-30] MEDS: Propofol 1000 mg/100 ml Inj 1,000 MG/100 ML BOTTLE IV.CONT PRN (17:49)
[2018-04-30] MEDS: Midazolam 100 MG/100 ML Inj 100 MG/100 ML BAG IV.CONT PRN ×2 (17:49→22:55)
[2018-04-30] MEDS: Oral Hygiene Kit OROPHARYNG SCH ×2 (17:50→23:44)
--- NOTE | 2018-04-30 17:54 | P.PNPL ---
Subjective Interval history: 72 YOWM with MRSA Pn, cavitary lesion, COPD, Lt ptx mild sob Developed RF, intubated CT chest large Ptx and consolidation After flushing chest tube, has air leak Sedated Physical Exam Vital signs: Vital Signs 04/29/18 18:00 04/29/18 18:01 04/29/18 19:00 Temperature Pulse Rate 123 H 124 H 118 H Respiratory Rate 38 H 43 H 30 H Blood Pressure 137/90 108/75 Pulse Oximetry 93 L 96 96 04/29/18 19:38 04/29/18 20:00 04/29/18 21:00 Temperature 98.6 F Pulse Rate 101 H 121 H 112 H Respiratory Rate 21 37 H 29 H Blood Pressure 116/77 107/72 Pulse Oximetry 94 L 93 L 97 04/29/18 22:00 04/29/18 23:00 04/29/18 23:27 Temperature Pulse Rate 96 H 94 H 94 H Respiratory Rate 32 H 36 H 17 Blood Pressure 108/71 117/81 Pulse Oximetry 95 94 L 04/29/18 23:28 04/30/18 00:00 04/30/18 01:00 Temperature 97.6 F Pulse Rate 96 H 96 H Respiratory Rate 28 H 22 Blood Pressure 106/72 108/72 Pulse Oximetry 93 L 96 91 L 04/30/18 02:00 04/30/18 03:00 04/30/18 04:00 Temperature 97.7 F Pulse Rate 99 H 101 H 106 H Respiratory Rate 27 H 27 H 32 H Blood Pressure 104/68 107/70 107/71 Pulse Oximetry 92 L 94 L 91 L 04/30/18 06:00 04/30/18 07:00 04/30/18 07:33 Temperature 98.4 F Pulse Rate 84 110 H 112 H Respiratory Rate 30 H 16 Blood Pressure 117/78 Pulse Oximetry 95 92 L 04/30/18 08:00 04/30/18 08:01 04/30/18 08:15 Temperature Pulse Rate 120 H 125 H 126 H Respiratory Rate 27 H Blood Pressure 90/67 L 111/76 Pulse Oximetry 92 L 92 L 92 L 04/30/18 09:00 04/30/18 10:00 04/30/18 11:00 Temperature Pulse Rate 118 H 114 H 91 H Respiratory Rate 26 H 25 H 28 H Blood Pressure 105/65 Pulse Oximetry 94 L 94 L 04/30/18 11:49 04/30/18 12:00 04/30/18 12:10 Temperature 98.2 F Pulse Rate 84 91 H 91 H Respiratory Rate Blood Pressure 107/71 Pulse Oximetry 95 95 04/30/18 14:00 04/30/18 15:15 04/30/18 15:35 Temperature Pulse Rate 98 H 107 H Respiratory Rate 28 H 14 Blood Pressure Pulse Oximetry 100 04/30/18 16:22 04/30/18 17:29 Temperature Pulse Rate Respiratory Rate 22 Blood Pressure Pulse Oximetry 96 97 Intake & Output 04/29/18 04/30/18 04/30/18 18:59 06:59 18:59 Intake Total 1160 / 1160 2209 / 2209 300 / 300 Output Total 800 / 800 450 / 450 Balance 360 / 360 1759 / 1759 300 / 300 Weight 75.5 kg Intake: IV 200 / 200 300 / 300 Teflaro Inj 600 MG In NS Inj 100 / 100 200 / 200 100 ML @ 100 mls/hr IV.SIG Q12H [facility] Rx#:[id number] Cubicin Inj 1,000 MG In NS Inj 100 / 100 100 / 100 100 ML @ 200 mls/hr IV.SIG Q24H [facility] Rx#:[id number] Oral 960 / 960 240 / 240 Oral Supplement 900 / 900 Tube Feeding 169 / 169 Water Bolus Amount 900 / 900 Output: Urine 800 / 800 450 / 450 Stool 0 / 0 Urine/Stool Mix 0 / 0 Chest Tube Drainage 0 / 0 Right 0 / 0 Other: # Voids 3 # Incontinent Voids 0 Date of Last Bowel Movement 04/29/18 04/29/18 04/29/18 # Bowel Movements 1 1 # Incontinent Bowel Movements 1 GENERAL: Elderly WM, on vent, sedated SKIN: Warm and dry. HEAD: Normocephalic. EYES: No scleral icterus. No injection or drainage. NECK: Supple, trachea midline. No JVD or lymphadenopathy. CARDIOVASCULAR: Regular rate and rhythm without murmurs, gallops, or rubs. RESPIRATORY: Breath sounds equal bilaterally. No accessory muscle use. Rt chest tube with air leak GASTROINTESTINAL: Abdomen soft, non-tender, nondistended. MUSCULOSKELETAL: No cyanosis, or edema. BACK: Nontender without obvious deformity. No CVA tenderness. - Urinary Catheter Management Indwelling Urethral Catheter Cath placed during this visit: yes, but has since been removed by the nurse Reason for continuing: Acute urinary retention Insertion date: 04/05/18 Insertion time: 23:00 Removal date: 04/12/18 Removal time: 08:30 Condom Cath placed during this visit: no Reason for continuing: Acute urinary retention Straight Cath placed during this visit: yes Reason for continuing: Acute urinary retention Insertion date: 04/08/18 Insertion time: 18:00 Assessment and Plan - Plan IMPRESSION: 1. MRSA pneumonia. 2. Cavitary pneumonia. 4. Chronic obstructive pulmonary disease. 5. Hypotension. 6. Left pneumothorax, status post chest tube.removal 7. Nicotine use. 8. Right Ptx 9. VDRF PLAN: Cont Abx per ID Ceftaroline, Zyvox, Daptomycin Aerosol nebs Vent Support Chest tube to suction DW , will consult CTS
[2018-04-30] MEDS: Famotidine PF Inj 20 MG/2 ML Vial IV.PUSH SCH (20:13)
[2018-04-30] MEDS: Enoxaparin Inj 40 MG/0.4 ML Syringe SQ SCH (22:55)
[2018-04-30 23:20] LABS: Albumin 1.8 g/dL (3.4-5.0); Anion Gap 6 meq/L (5-15); Aspartate Aminotransferase 25 U/L (15-37); Blood Urea Nitrogen 12 mg/dL (7-18); Calcium 8.5 mg/dL (8.5-10.1); Chloride 94 meq/L (98-107); Glomerular Filtration Rate Greater Than 89 mL/min (>89); Glucose,Random 124 mg/dL (74-106); Potassium 3.5 meq/L (3.5-5.1); Sodium 135 meq/L (136-145)
[2018-04-30 23:24] LABS: Alanine Aminotransferase 40 U/L (12-78); Alkaline Phosphatase 91 U/L (45-117); Total Protein 6.3 g/dL (6.4-8.2)
[2018-05-01] MEDS: Propofol 1000 mg/100 ml Inj 1,000 MG/100 ML BOTTLE IV.CONT PRN ×4 (00:34→19:34)
[2018-05-01] MEDS: Oral Hygiene Kit OROPHARYNG SCH ×3 (04:01→16:51)
[2018-05-01] MEDS: Artificial Tears Opth Drops 15 ML Bottle EACH EYE SCH ×3 (04:01→20:21)
--- NOTE | 2018-05-01 06:56 | XR ---
EXAM DATE: 05/01/2018 6:38 AM EST AGE/SEX: 72 years / Male INDICATIONS: Evaluate for pneumothorax. CLINICAL DATA: This is the patient's subsequent encounter. Patient reports that signs and symptoms h ave been present for 3 weeks and indicates a pain score of Nonresponsive. MEDICAL/SURGICAL HISTORY: . Chronic obstructive pulmonary disease. Hypertension. MRSA. Chest tube, right. COMPARISON: [facility] [place], CHEST 1V SINGLE AP, 04/30/2018. [facility] [place], CHEST 1V SINGLE AP, 04/30/2018. [facility] [place], CT CH EST W CONTRAST, 04/30/2018. . FINDINGS: A single AP view of the chest demonstrates patchy densities in the left midlung and left lower lobe. Right-sided chest tube is unchanged. There is a prominent right-sided pneumothorax measuring 3.3 cm o f pleural separation. Atelectasis of a good portion of the right lung with pleural parenchymal densit ies. Right-sided pleural effusion. Endotracheal tube stable in appearance. Subcutaneous emphysema on the right. CONCLUSION: 1. Prominent right-sided pneumothorax with small caliber chest tube. 2. Pleural-parenchymal densities throughout the right lung. 3. Patchy densities in the left lung. Electronically signed by: Edin Pepe MD Board Certified Radiologist 05/01/2018 6:54 AM EST
--- NOTE | 2018-05-01 08:23 | P.PNCC ---
Subjective Subjective Remarks/Hospital Course: Patient is 72-year-old male with past medical history of COPD, tobacco abuse and hypertension who came to the emergency room for shortness of breath via EMS. On EMS arrival saturation was in the 90s, but patient had significant shortness of breath and dyspnea. Patient received Solu-Medrol 125 mg IV and breathing treatments by EMS and was brought to the emergency department. In the emergency department patient received further breathing treatments and chest x-ray showed patchy infiltrate on bilateral lung fitzgerald. Initially maintaining oxygen saturation with nasal cannula. Initial blood pressure was 85 /65, improved with normal saline boluses. WBC count was 17.1. Patient was deemed septic from pneumonia and patient was ordered to receive vancomycin and Zosyn. While receiving vancomycin patient acutely decompensated became extremely short of breath and developed erythematous maculopapular rash involving face torso armpits and groin region. Emergently intubated and placed on mechanical ventilation by the ED physician. Received IV 50 mg Benadryl. Critical care medicine was requested to admit the patient. I evaluated the patient immediately in the emergency department. Patient is intubated on Versed and fentanyl infusion however he is very asynchronous with the vent triggering ventilator alarms. Severe bilateral expiratory wheezing heard on auscultation. He has extensive skin rash predominantly face forehead torso armpit and groins. Appears like patient had anaphylactic reaction to vancomycin complicated by COPD exacerbation and pneumonia. I have ordered additional Solu-Medrol 100 mg x1 scheduled Benadryl and famotidine, antibiotics with cefepime and Levaquin. Increase Versed infusion, add propofol and use neuromuscular paralysis as needed. Will request pharmacy to add vancomycin to allergy. ED physician Dr. Slater had noticed that patient had some swelling on the left side of his face on arrival, however the skin rash after vancomycin was started was new. Patient remains hypotensive has received 2 L of normal saline in the emergency department and no significant urine output. I have ordered additional 2 L normal saline bolus and maintenance fluid at 84 mL/h. Use Levophed as needed to keep map above 65 Subjective 04/06: Off norepinephrine drip. Currently resting in bed in no acute distress on midazolam and fentanyl drips. Start tube feeding today. 04/07: Remains sedated, intubated on mechanical ventilation. Blood cultures growing MRSA 04/08: remains sedated and intubated. repeat cultures still growing MRSA 2/4 cultures. likely need to repeat BCx either today or tomorrow. agree with narrowing spectrum abx. performed DEEDEE at ID recommendation (need to r/o endocarditis), but no evidence of vegetations. remains hypoxic. off vasopressors today. 04/09: adequate auto-diuresis overnight. off vasopressors. on sedation vacation. hypoxia improving. 04/10 Patient remains intubated and sedated with Fentanyl infusion. Became tachycardic and tachypneic overnight requiring increase sedation. Afebrile. 04/11 Patient is intubated and sedated. Afebrile. 04/12 Patient remains intubated and sedated with Diprivan and Fentanyl infusion, Afebrile. 04/13: Sedated, easily arousable, orally intubated on mechanical ventilation. 04/14 Patient was extubated yesterday. Afebrile. 04/15 Patient is lying in bed in NAD. On 3L oxygen. Awake and alert. 04/16 Patient is on partial rebreather. Afebrile. Awake and alert. 04/17: Left-sided chest tube placed for pneumothorax yesterday. On nasal cannula currently. Awake and alert. Appears comfortable. No air leak noted in Pleur-evac 04/18: Remains on nasal cannula. No air leak noted from left-sided chest tube. 04/19: On 5 L nasal cannula. Chest tube in place, no air leak noted. Resting in bed comfortably, no acute distress. Continues to have productive cough. 04/20: Remains on nasal cannula. Chest tube in place, no air leak noted. Resting in bed comfortably. 04/24: RECONSULT NOTE: called emergently by Hospitalist team. patient with new acute respiratory distress. Chest x-ray demonstrates new large right-sided pneumothorax. I went to evaluate the patient is seen in significant distress. I emergently placed right-sided pigtail chest tube. Significant denney of air with no air leak on chest tube. Respiratory distress improved after chest tube placement. Repeat interval chest x-ray demonstrates good placement of chest tube with resolution of pneumothorax. 04/26/18: RECONSULT NOTE: [facility] reconsulted for rexpansion of right pneumothorax. Patient developed increased SOB today without improvement with nebulizer. STAT CXR Moderate to large right pneumothorax has redeveloped and with a probable tension component. He appears to be in moderate distress tachypneic. Patient was moved to the ICU where I evaluated the patient emergently. The right pigtail chest tube is still in place, minimal air leak. I flushed the chest tube but was difficult to withdraw air. I then pulled back the chest tube by approximately 3 cm. Able to withdraw air more easily and on connection to the Vacutainer again there was significant air leak in all chambers. Patient subjectively felt improvement in shortness of breath after chest tube placement. Stat repeat chest x-ray shows near complete reexpansion of the right knee 04/30/18: [facility] RECONSULT NOTE: Critical care, reconsult for worsening respiratory failure. I evaluate the patient urgently. He is very tachypneic diaphoretic. Chest x-ray today showed possible right upper lobe pneumothorax and increasing right effusion. I did an emergent bedside ultrasound which shows probably loculated complicated right pleural effusion. Patient likely needs more further imaging and procedures and in very labored breathing. Proceeded with endotracheal intubation in place patient on mechanical ventilation. I explained plan of care prior to intubation. He understands that he may need emergency chest tube placement and also may need surgical intervention 05/01/18: Patient remains intubated sedated. Hypotensive on 75 mcg/min of Beau- Synephrine. While sedated. CT chest showed severe right lower lung consolidation large pneumothorax/hydropneumothorax on the right side. Plan for large bore chest tube and central line today. Also cardiothoracic surgery was consulted, and I discussed with Dr. Schaeffer. I will plan for a large bore chest tube to the right side followed by a central line placement. Objective Vital Signs / I&O: Vital Signs 04/30/18 09:00 04/30/18 10:00 04/30/18 11:00 Temperature Pulse Rate 118 H 114 H 91 H Respiratory Rate 26 H 25 H 28 H Blood Pressure 105/65 Pulse Oximetry 94 L 94 L 04/30/18 11:49 04/30/18 12:00 04/30/18 12:10 Temperature 98.2 F Pulse Rate 84 91 H 91 H Respiratory Rate Blood Pressure 107/71 Pulse Oximetry 95 95 04/30/18 13:00 04/30/18 14:00 04/30/18 15:00 Temperature Pulse Rate 95 H 97 H 109 H Respiratory Rate Blood Pressure 121/75 114/71 111/77 Pulse Oximetry 95 97 89 L 04/30/18 15:15 04/30/18 15:35 04/30/18 16:00 Temperature Pulse Rate 107 H 114 H Respiratory Rate 28 H 14 14 Blood Pressure Pulse Oximetry 100 97 04/30/18 16:22 04/30/18 17:29 04/30/18 17:31 Temperature Pulse Rate 124 H Respiratory Rate 22 22 Blood Pressure 104/79 Pulse Oximetry 96 97 98 04/30/18 17:32 04/30/18 17:35 04/30/18 17:36 Temperature Pulse Rate 136 H 145 H 95 H Respiratory Rate 22 22 Blood Pressure 121/90 190/114 H Pulse Oximetry 98 98 04/30/18 17:37 04/30/18 17:38 04/30/18 17:39 Temperature Pulse Rate 100 H 101 H 101 H Respiratory Rate 22 22 22 Blood Pressure 178/105 H 173/103 H 160/95 H Pulse Oximetry 99 98 99 04/30/18 17:40 04/30/18 17:44 04/30/18 17:48 Temperature Pulse Rate 101 H 103 H 104 H Respiratory Rate 22 22 22 Blood Pressure 153/90 H 108/66 91/59 L Pulse Oximetry 98 98 97 04/30/18 17:52 04/30/18 17:53 04/30/18 17:56 Temperature Pulse Rate 104 H 104 H 104 H Respiratory Rate 22 25 H 22 Blood Pressure 85/60 L 88/66 L 95/67 L Pulse Oximetry 97 98 97 04/30/18 18:00 04/30/18 18:04 04/30/18 18:08 Temperature Pulse Rate 102 H 101 H 101 H Respiratory Rate 22 22 22 Blood Pressure 101/68 112/69 107/68 Pulse Oximetry 98 98 97 04/30/18 18:12 04/30/18 18:16 04/30/18 18:20 Temperature Pulse Rate 101 H 100 H 100 H Respiratory Rate 22 22 22 Blood Pressure 105/69 107/68 105/67 Pulse Oximetry 98 98 98 04/30/18 18:24 04/30/18 18:28 04/30/18 18:32 Temperature Pulse Rate 98 H 97 H 96 H Respiratory Rate 22 22 22 Blood Pressure 104/67 108/70 110/71 Pulse Oximetry 98 98 98 04/30/18 18:36 04/30/18 18:40 04/30/18 18:44 Temperature Pulse Rate 96 H 96 H 96 H Respiratory Rate 22 22 22 Blood Pressure 108/71 100/69 102/71 Pulse Oximetry 98 98 98 04/30/18 18:48 04/30/18 19:00 04/30/18 19:08 Temperature Pulse Rate 95 H 93 H Respiratory Rate 22 22 Blood Pressure 105/72 104/73 Pulse Oximetry 98 97 98 04/30/18 19:12 04/30/18 19:16 04/30/18 19:20 Temperature Pulse Rate 93 H 92 H 92 H Respiratory Rate 22 22 22 Blood Pressure 102/71 105/71 104/70 Pulse Oximetry 97 98 98 04/30/18 19:24 04/30/18 19:28 04/30/18 19:30 Temperature Pulse Rate 92 H 92 H 92 H Respiratory Rate 22 22 22 Blood Pressure 99/70 L 98/67 L Pulse Oximetry 97 98 04/30/18 19:31 04/30/18 19:32 04/30/18 19:36 Temperature Pulse Rate 91 H 91 H Respiratory Rate 22 22 22 Blood Pressure 101/70 102/70 Pulse Oximetry 97 98 97 04/30/18 19:40 04/30/18 19:44 04/30/18 19:48 Temperature Pulse Rate 91 H 90 90 Respiratory Rate 22 22 22 Blood Pressure 100/71 98/67 L 97/68 L Pulse Oximetry 97 97 97 04/30/18 19:52 04/30/18 19:56 04/30/18 20:00 Temperature 98.8 F Pulse Rate 91 H 91 H 91 H Respiratory Rate 22 22 22 Blood Pressure 101/70 100/69 98/69 L Pulse Oximetry 97 97 97 04/30/18 20:04 04/30/18 20:08 04/30/18 20:12 Temperature Pulse Rate 91 H 91 H 90 Respiratory Rate 22 22 22 Blood Pressure 100/67 101/70 101/70 Pulse Oximetry 98 98 97 04/30/18 20:16 04/30/18 20:20 04/30/18 20:24 Temperature Pulse Rate 90 90 90 Respiratory Rate 22 22 22 Blood Pressure 99/69 L 96/67 L 104/70 Pulse Oximetry 98 98 98 04/30/18 20:28 04/30/18 20:32 04/30/18 20:36 Temperature Pulse Rate 88 90 90 Respiratory Rate 22 22 22 Blood Pressure 108/72 100/71 100/71 Pulse Oximetry 99 98 99 04/30/18 20:40 04/30/18 20:44 04/30/18 20:48 Temperature Pulse Rate 90 90 90 Respiratory Rate 22 22 22 Blood Pressure 102/69 104/71 101/70 Pulse Oximetry 98 98 98 04/30/18 20:52 04/30/18 20:56 04/30/18 21:00 Temperature Pulse Rate 90 89 89 Respiratory Rate 22 22 22 Blood Pressure 99/69 L 100/71 102/71 Pulse Oximetry 97 98 98 04/30/18 21:04 04/30/18 21:08 04/30/18 21:12 Temperature Pulse Rate 88 87 88 Respiratory Rate 22 22 22 Blood Pressure 103/72 103/72 95/65 L Pulse Oximetry 98 99 99 04/30/18 21:16 04/30/18 21:20 04/30/18 21:30 Temperature Pulse Rate 87 87 87 Respiratory Rate 22 22 22 Blood Pressure 100/66 103/69 100/69 Pulse Oximetry 99 100 99 04/30/18 21:45 04/30/18 22:00 04/30/18 22:15 Temperature Pulse Rate 87 86 88 Respiratory Rate 22 22 22 Blood Pressure 100/70 99/72 L 92/63 L Pulse Oximetry 100 100 100 04/30/18 22:30 04/30/18 22:45 04/30/18 23:00 Temperature Pulse Rate 88 89 90 Respiratory Rate 22 22 22 Blood Pressure 95/66 L 98/67 L 96/67 L Pulse Oximetry 100 100 100 04/30/18 23:15 04/30/18 23:30 04/30/18 23:45 Temperature Pulse Rate 90 91 H 91 H Respiratory Rate 22 22 22 Blood Pressure 95/67 L 94/66 L 97/66 L Pulse Oximetry 100 100 100 04/30/18 23:51 05/01/18 00:00 05/01/18 00:15 Temperature Pulse Rate 91 H 92 H 93 H Respiratory Rate 22 22 22 Blood Pressure 97/67 L 99/68 L Pulse Oximetry 100 100 05/01/18 00:30 05/01/18 00:45 05/01/18 01:00 Temperature Pulse Rate 95 H 96 H 96 H Respiratory Rate 22 22 22 Blood Pressure 97/64 L 92/63 L 94/64 L Pulse Oximetry 100 100 100 05/01/18 01:02 05/01/18 01:15 05/01/18 01:30 Temperature Pulse Rate 97 H 96 H Respiratory Rate 22 22 23 Blood Pressure 97/64 L 94/61 L Pulse Oximetry 100 100 99 05/01/18 01:45 05/01/18 02:00 05/01/18 02:15 Temperature Pulse Rate 99 H 99 H 99 H Respiratory Rate 22 22 22 Blood Pressure 95/52 L 91/54 L 89/55 L Pulse Oximetry 97 97 96 05/01/18 02:30 05/01/18 02:45 05/01/18 03:00 Temperature Pulse Rate 99 H 100 H 100 H Respiratory Rate 22 22 22 Blood Pressure 89/58 L 88/60 L 89/61 L Pulse Oximetry 96 96 96 05/01/18 03:15 05/01/18 03:30 05/01/18 03:45 Temperature Pulse Rate 100 H 99 H 100 H Respiratory Rate 22 23 23 Blood Pressure 89/59 L 88/61 L 92/62 L Pulse Oximetry 95 95 96 05/01/18 04:00 05/01/18 04:06 05/01/18 06:00 Temperature Pulse Rate 101 H 101 H 100 H Respiratory Rate 24 22 Blood Pressure 88/60 L Pulse Oximetry 95 95 05/01/18 07:31 Temperature Pulse Rate 103 H Respiratory Rate 22 Blood Pressure Pulse Oximetry 94 L Intake & Output 04/30/18 05/01/18 05/01/18 18:59 06:59 18:59 Intake Total 1500 / 1500 900 / 900 Output Total 800 / 800 740 / 740 Balance 700 / 700 160 / 160 Weight 73.5 kg Intake: IV 300 / 300 900 / 900 Versed Inj 100 mg In 100 ml @ 2 100 / 100 MG/HR 2 mls/hr IV.CONT TITRATE PRN Rx#:[id number] Neosynephrine Inj 40 MG In D5W 500 / 500 Inj 496 ML @ 40 MCG/MIN 30 mls/ hr IV.CONT TITRATE PRN Rx#: [id number] Diprivan 1000 mg/100 ml Inj 1, 200 / 200 000 mg In 100 ml @ 5 MCG/KG/MIN 2.265 mls/hr IV.CONT TITRATE PRN Rx#:[id number] Teflaro Inj 600 MG In NS Inj 200 / 200 100 / 100 100 ML @ 100 mls/hr IV.SIG Q12H L[facility]ORA Rx#:[id number] Cubicin Inj 1,000 MG In NS Inj 100 / 100 100 ML @ 200 mls/hr IV.SIG Q24H [facility]ORA Rx#:[id number] Oral 1200 / 1200 Output: Urine 700 / 700 Urine Amount (Catheter) 700 / 700 Straight 700 / 700 Chest Tube Drainage 100 / 100 40 / 40 Right 100 / 100 40 / 40 Other: Date of Last Bowel Movement 04/30/18 04/30/18 # Bowel Movements 1 0 Result Diagrams: 04/28/18 04:35 04/30/18 22:01 Objective Remarks: GENERAL: Patient is lying in bed in critically ill intubated on pressors SKIN: Warm and dry. HEAD: Atraumatic. Normocephalic. EYES: Pupils equal and round. No scleral icterus. ENT: No nasal bleeding or discharge. Mucous membranes moist. Orotracheally intubated NECK: Trachea midline. No JVD. CARDIOVASCULAR: Tachycardic rate and rhythm. sinus. Beau-Synephrine at 75 mcg/ min RESPIRATORY: Intubated sedated. Coarse rhonchi and wheezes right lower lung and rhonchi in the left lung. Air entry diminished with right upper lung. Hyperresonant to percussion over the right upper chest wall. Coarse crackles right base. Subcutaneous emphysema present on the right chest wall. Right chest tube in place with 1+ air leak GASTROINTESTINAL: Abdomen soft, non-tender, nondistended. no guarding. MUSCULOSKELETAL: Extremities without clubbing, cyanosis, or edema. No obvious deformities. NEUROLOGICAL: Intubated heavily sedated for vent synchrony with propofol and Versed. Moves all extremities withdraws to pain. No focal deficits Assessment and Plan - Problem List (1) Anaphylaxis Code(s): T78.2XXA - Anaphylactic shock, unspecified, initial encounter Status : Acute (2) COPD with acute exacerbation Code(s): J44.1 - Chronic obstructive pulmonary disease with (acute) exacerbation Status: Acute (3) Bilateral pneumonia Code(s): J18.9 - Pneumonia, unspecified organism Status: Acute (4) Allergic reaction caused by a drug Code(s): T78.40XA - Allergy, unspecified, initial encounter Status: Acute (5) Acute respiratory failure Code(s): J96.00 - Acute respiratory failure, unspecified whether with hypoxia or hypercapnia Status: Acute (6) Severe sepsis Code(s): A41.9 - Sepsis, unspecified organism; R65.20 - Severe sepsis without septic shock Status: Acute (7) Leukocytosis Code(s): D72.829 - Elevated white blood cell count, unspecified Status: Acute (8) Hypotension Code(s): I95.9 - Hypotension, unspecified Status: Acute (9) Acute kidney injury Code(s): N17.9 - Acute kidney failure, unspecified Status: Acute (10) Hyponatremia Code(s): E87.1 - Hypo-osmolality and hyponatremia Status: Acute (11) Hyperglycemia Code(s): R73.9 - Hyperglycemia, unspecified Status: Acute (12) History of hypertension Code(s): Z86.79 - Personal history of other diseases of the circulatory system Status: Chronic (13) Tobacco abuse Code(s): Z72.0 - Tobacco use Status: Chronic (14) History of COPD Code(s): Z87.09 - Personal history of other diseases of the respiratory system Status: Chronic - Assessment and Plan Plan: Assessment: 72-year-old male with known necrotizing MRSA pneumonia and hypoxemia requiring supplemental oxygenation now with acute respiratory distress secondary to acute right pneumothorax. Status post emergent chest tube decompression. Critically ill. Now with what appears to be persistent right pneumothorax and loculated complicated right pleural effusion most likely parapneumonic Active problems: Acute hypoxemic respiratory failure Persistent large right-sided pneumothorax Right-sided complicated pleural effusion MRSA pneumonia with probable lung abscess Hypotension COPD with exacerbation MRSA bacteremia Severe sepsis MRSA pneumonia Plan: NEURO: -Propofol and versed for sedation and ventilator synchrony -Daily sedation vacation after procedures are complete RESP: -PRVC/AC, Ventilator bundle -DuoNeb every 4 hours scheduled and as needed -CT of the chest done 04/30/2018 shows large persistent right pneumothorax pleural effusion and significant right lower lung consolidation with probable cavitation/abscess -Plan to place large bore chest tube to the right side -Dr. mendosa to do bronchoscopy to evaluate for obstructing mass, and for BAL -Continue right pigtail chest tube to suction -Infectious disease and Pulmonology is following -Continue antibiotics per ID CV: -Normal saline IV fluids 100 ml per hour -Beau-Synephrine if needed to keep map above 65, currently at 75 mcg/kg/min GI: -N.p.o., IV famotidine : -Monitor renal function closely. Shine catheter if patient continues to retain. ID: -Antibiotics per ID. Currently on Teflaro, Zyvox and daptomycin -Further cultures per ID -Bronchoscopy with BAL today HEME: -Monitor CBC, coags ENDO: -Electrolyte replacement per protocol -Sliding scale insulin if needed PROPH: -Bilateral lower extremity SCDs. Lovenox/famotidine LINES: -Utilize peripheral IVs, place central line today CC time 55 min excluding procedures This patient remains critically ill with one or more organ systems which are or may become a threat to life. I have spent in excess of 55 minutes discontinuously in the care and management of this patient. This time is exclusive of procedures, and includes, but is not limited to, evaluation of the patient, review of the medical record, discussions with family, consultants, nursing staff, or respiratory therapy, and documentation in the medical record. STAT CT showed Right-sided pigtail catheter in the right mid chest with a large right-sided pneumothorax remaining. There is extensive consolidation throughout the only aerated portions of the right lung with debris in the right bronchus and bronchus intermedius. There is multiloculated fluid collections in the right lower lobe and the right inferior lateral costophrenic angle could be multiloculated infection. After the CT was reviewed I reevaluate the positioning of the chest tube and it was noted that the chest tube may be obstructed. I flushed with normal saline and reopened the chest tube with now 1-2+ airleak. No need of additional chest tube at this time as the patient has no features of tension. Cardiothoracic surgery consulted for probable lung abscess and persistent pneumothorax I have updated patient's daughter on the phone 05/01/2018 Code Status: Full (1) Anaphylaxis Qualifiers: Encounter type: initial encounter Qualified Code(s): T78.2XXA - Anaphylactic shock, unspecified, initial encounter (3) Bilateral pneumonia Qualifiers: Pneumonia type: due to unspecified organism Lung location: unspecified part of lung Qualified Code(s): J18.9 - Pneumonia, unspecified organism (4) Allergic reaction caused by a drug Qualifiers: Encounter type: initial encounter Qualified Code(s): T78.40XA - Allergy, unspecified, initial encounter (5) Acute respiratory failure Qualifiers: Respiratory failure complication: unspecified whether with hypoxia or hypercapnia Qualified Code(s): J96.00 - Acute respiratory failure, unspecified whether with hypoxia or hypercapnia (7) Leukocytosis Qualifiers: Leukocytosis type: unspecified Qualified Code(s): D72.829 - Elevated white blood cell count, unspecified (8) Hypotension Qualifiers: Hypotension type: unspecified hypotension type Qualified Code(s): I95.9 - Hypotension, unspecified
[2018-05-01] MEDS ORDERED: Lidocaine 1%/Epinephrine 1:100,000 Inj 30 ML Vial ONE (09:02)
--- NOTE | 2018-05-01 10:00 | P.PCN ---
Date of procedure: 05/01/18 Pre-op diagnosis: Persistent large right pneumothorax Post-op diagnosis: same Procedure: Procedure: Right 28Fr tube thoracostomy CXR findings: Right-sided large pneumothorax Consent: Obtained from the patient's daughter Debated and sedated with propofol and Versed. The patient was placed in the supine position. The right arm was abducted above the head and secured. The right lateral chest was prepped and draped under sterile conditions. 1% Lidocaine was infiltrated subcutaneously. A 1.5 cm incision was made using blade at the mid-axillary line, about 1 inch posterior and inferior to the existing chest tube, blunt dissection was performed until the rib was palpated. A Louann clamp was used to bluntly enter the pleura immediately above the adjacent rib. The space was opened bluntly with the Louann clamp. Mild Jett of air noted on entry of the chest. A 28 Fr chest tube was inserted along the course of the finger and into the pleural cavity easily and without resistance. The chest tube was connected to a Pleur-o-vac and connected to [id number] suction, with 3+ persistent air leak. The chest tube was sutured to the skin with 0 vicryl and an occlusive dressing was applied. The patient tolerated the procedure well. Anesthesia: local Surgeon: Sonam Bustos Estimated blood loss (mL): 2 Pathology: none sent Condition: critical Disposition: ICU
--- NOTE | 2018-05-01 10:03 | P.PCN ---
Date of procedure: 05/01/18 Pre-op diagnosis: Hypotension requiring pressors Post-op diagnosis: same Procedure: Right subclavian central line Central line checklist completed, timeout completed. I wore a surgical cap, mask with protective eyewear, full gown and sterile gloves throughout the procedure. Right upper chest and shoulder region was prepped using chlorhexidine scrub and draped in sterile fashion. Anesthesia was achieved over the vein using 1% lidocaine. The introducer needle was inserted into the right subclavian vein and venous blood was withdrawn. The syringe was removed and a guidewire was advanced into the introducer needle. A small incision was made at the skin surface with a scalpel and the introducer needle was exchanged for a dilator over the guidewire. After appropriate dilation was obtained, the dilator was exchanged over the wire for a triple lumen, 7F, antibiotic coated central venous catheter. The wire was removed and the catheter was secured using StatLock. A sterile central line dressing was placed over the catheter at the insertion site. The patient tolerated the procedure without any hemodynamic compromise. At time of procedure completion, all ports aspirated and flushed properly. Post-procedure chest x-ray is pending at this time. Anesthesia: local Surgeon: Sonam Bustos Estimated blood loss (mL): 1 Pathology: none sent Condition: critical Disposition: ICU
--- NOTE | 2018-05-01 10:48 | XR ---
EXAM DATE: 05/01/2018 10:33 AM EST AGE/SEX: 72 years / Male INDICATIONS: Large bore chest tube and central line placement. CLINICAL DATA: This is the patient's initial encounter. Patient reports that signs and symptoms have been present for 1 week and indicates a pain score of Nonresponsive. MEDICAL/SURGICAL HISTORY: Chronic obstructive pulmonary disease. Hypertension. MRSA None. COMPARISON: [facility] [place]ST [place]AST, 04/30/2018. . FINDINGS: Interval placement of a right-sided thoracostomy tube is noted. The right lateral pneumothorax has re expanded. Small bore catheter remains in the right lateral pleural margin. A moderate size air pocket remains evident in the right apex along the mediastinal border. When taylre red to recent CT this represents a moderate size loculated pneumothorax which is still present. Chest is otherwise stable. CONCLUSION: Interval resolution of a loculated right pneumothorax along the lateral chest wall following chest tu be placement. Persistent moderate-sized loculated pneumothorax in the right paramediastinal region of the upper santos g field. Electronically signed by: Errol Trujillo MD Board Certified Radiologist 05/01/2018 10:46 AM EST
[2018-05-01] MEDS: Chlorhexidine 0.12% Oral Kit 15 ML UDC OROPHARYNG SCH ×2 (11:02→20:19)
[2018-05-01] MEDS: Linezolid 600 MG Tablet PO SCH (11:02)
[2018-05-01] MEDS: Sodium Chloride 0.9% 2 ML Flush BID IV.FLUSH SCH ×2 (11:03→20:20)
[2018-05-01] MEDS: guaiFENesin 600 MG ER Tablet PO SCH ×2 (11:03→20:19)
[2018-05-01] MEDS: Famotidine PF Inj 20 MG/2 ML Vial IV.PUSH SCH ×2 (11:03→20:20)
[2018-05-01] MEDS: Sennosides Liq 8.8 MG/5 ML UDC PO SCH (11:03)
[2018-05-01] MEDS: Metoprolol Tartrate 100 MG Tablet PO SCH ×2 (11:04→20:19)
[2018-05-01] MEDS: Docusate Sodium 100 MG Capsule PO SCH ×2 (11:04→20:19)
[2018-05-01] MEDS: Midazolam 100 MG/100 ML Inj 100 MG/100 ML BAG IV.CONT PRN ×2 (11:13→19:33)
[2018-05-01] MEDS: Phenylephrine Inj 40 MG in Dextrose 5% in Water Inj 496 ML IV.CONT PRN ×4 (11:14→21:03)
--- NOTE | 2018-05-01 12:03 | MP ---
cc: Chang Carey MD DATE OF OPERATION: 05/01/2018 PROCEDURE IN DETAIL: Bronchoscopy was done through the endotracheal tube. Bronchoscope advanced to main haseeb. Main haseeb is sharp. Bronchoscope advanced to the right lung. There was a lot of mucous plugging seen in the right lung. All mucous plugs were suctioned. After repeated suctioning, all subsegments were patent. There was mild erythema of the airways. Bronchoscope pulled back and advanced to the left lung. Left upper lingular and lower lobe were visualized. Small amount of mucus was suctioned. No endobronchial lesion was seen. Bronchial washings sent for routine culture, AFB, fungal culture, and cytology. He tolerated the procedure well. MD JOSEF Jacobsen/hernan , 11:42 AM , 11:46 AM
[2018-05-01] MEDS: DAPTOmycin Inj 1,000 MG in Sodium Chlor 0.9% Inj 100 ML IV.SIG SCH (12:36)
--- NOTE | 2018-05-01 16:17 | P.PNID ---
Subjective Remarks: Pt clinically dteriorated He developped another R sided pneumothorax and is sp CT placement culture + for MRSA Antibiotics: n zyvox teflaro added 04/16 Lines: Line sites okay Past Medical History: COPD Allergies/Adverse Reactions: Allergies bee venom protein (honey bee) Allergy (Unknown, Verified 04/05/18 21:12) Edema vancomycin Allergy (Verified 04/05/18 23:33) Anaphylaxis Objective Vital Signs 04/30/18 16:22 04/30/18 17:29 04/30/18 17:31 Temperature Pulse Rate 124 H Respiratory Rate 22 22 Blood Pressure 104/79 Pulse Oximetry 96 97 98 04/30/18 17:32 04/30/18 17:35 04/30/18 17:36 Temperature Pulse Rate 136 H 145 H 95 H Respiratory Rate 22 22 Blood Pressure 121/90 190/114 H Pulse Oximetry 98 98 04/30/18 17:37 04/30/18 17:38 04/30/18 17:39 Temperature Pulse Rate 100 H 101 H 101 H Respiratory Rate 22 22 22 Blood Pressure 178/105 H 173/103 H 160/95 H Pulse Oximetry 99 98 99 04/30/18 17:40 04/30/18 17:44 04/30/18 17:48 Temperature Pulse Rate 101 H 103 H 104 H Respiratory Rate 22 22 22 Blood Pressure 153/90 H 108/66 91/59 L Pulse Oximetry 98 98 97 04/30/18 17:52 04/30/18 17:53 04/30/18 17:56 Temperature Pulse Rate 104 H 104 H 104 H Respiratory Rate 22 25 H 22 Blood Pressure 85/60 L 88/66 L 95/67 L Pulse Oximetry 97 98 97 04/30/18 18:00 04/30/18 18:04 04/30/18 18:08 Temperature Pulse Rate 102 H 101 H 101 H Respiratory Rate 22 22 22 Blood Pressure 101/68 112/69 107/68 Pulse Oximetry 98 98 97 04/30/18 18:12 04/30/18 18:16 04/30/18 18:20 Temperature Pulse Rate 101 H 100 H 100 H Respiratory Rate 22 22 22 Blood Pressure 105/69 107/68 105/67 Pulse Oximetry 98 98 98 04/30/18 18:24 04/30/18 18:28 04/30/18 18:32 Temperature Pulse Rate 98 H 97 H 96 H Respiratory Rate 22 22 22 Blood Pressure 104/67 108/70 110/71 Pulse Oximetry 98 98 98 04/30/18 18:36 04/30/18 18:40 04/30/18 18:44 Temperature Pulse Rate 96 H 96 H 96 H Respiratory Rate 22 22 22 Blood Pressure 108/71 100/69 102/71 Pulse Oximetry 98 98 98 04/30/18 18:48 04/30/18 19:00 04/30/18 19:08 Temperature Pulse Rate 95 H 93 H Respiratory Rate 22 22 Blood Pressure 105/72 104/73 Pulse Oximetry 98 97 98 04/30/18 19:12 04/30/18 19:16 04/30/18 19:20 Temperature Pulse Rate 93 H 92 H 92 H Respiratory Rate 22 22 22 Blood Pressure 102/71 105/71 104/70 Pulse Oximetry 97 98 98 04/30/18 19:24 04/30/18 19:28 04/30/18 19:30 Temperature Pulse Rate 92 H 92 H 92 H Respiratory Rate 22 22 22 Blood Pressure 99/70 L 98/67 L Pulse Oximetry 97 98 04/30/18 19:31 04/30/18 19:32 04/30/18 19:36 Temperature Pulse Rate 91 H 91 H Respiratory Rate 22 22 22 Blood Pressure 101/70 102/70 Pulse Oximetry 97 98 97 04/30/18 19:40 04/30/18 19:44 04/30/18 19:48 Temperature Pulse Rate 91 H 90 90 Respiratory Rate 22 22 22 Blood Pressure 100/71 98/67 L 97/68 L Pulse Oximetry 97 97 97 04/30/18 19:52 04/30/18 19:56 04/30/18 20:00 Temperature 98.8 F Pulse Rate 91 H 91 H 91 H Respiratory Rate 22 22 22 Blood Pressure 101/70 100/69 98/69 L Pulse Oximetry 97 97 97 04/30/18 20:04 04/30/18 20:08 04/30/18 20:12 Temperature Pulse Rate 91 H 91 H 90 Respiratory Rate 22 22 22 Blood Pressure 100/67 101/70 101/70 Pulse Oximetry 98 98 97 04/30/18 20:16 04/30/18 20:20 04/30/18 20:24 Temperature Pulse Rate 90 90 90 Respiratory Rate 22 22 22 Blood Pressure 99/69 L 96/67 L 104/70 Pulse Oximetry 98 98 98 04/30/18 20:28 04/30/18 20:32 04/30/18 20:36 Temperature Pulse Rate 88 90 90 Respiratory Rate 22 22 22 Blood Pressure 108/72 100/71 100/71 Pulse Oximetry 99 98 99 04/30/18 20:40 04/30/18 20:44 04/30/18 20:48 Temperature Pulse Rate 90 90 90 Respiratory Rate 22 22 22 Blood Pressure 102/69 104/71 101/70 Pulse Oximetry 98 98 98 04/30/18 20:52 04/30/18 20:56 04/30/18 21:00 Temperature Pulse Rate 90 89 89 Respiratory Rate 22 22 22 Blood Pressure 99/69 L 100/71 102/71 Pulse Oximetry 97 98 98 04/30/18 21:04 04/30/18 21:08 04/30/18 21:12 Temperature Pulse Rate 88 87 88 Respiratory Rate 22 22 22 Blood Pressure 103/72 103/72 95/65 L Pulse Oximetry 98 99 99 04/30/18 21:16 04/30/18 21:20 04/30/18 21:30 Temperature Pulse Rate 87 87 87 Respiratory Rate 22 22 22 Blood Pressure 100/66 103/69 100/69 Pulse Oximetry 99 100 99 04/30/18 21:45 04/30/18 22:00 04/30/18 22:15 Temperature Pulse Rate 87 86 88 Respiratory Rate 22 22 22 Blood Pressure 100/70 99/72 L 92/63 L Pulse Oximetry 100 100 100 04/30/18 22:30 04/30/18 22:45 04/30/18 23:00 Temperature Pulse Rate 88 89 90 Respiratory Rate 22 22 22 Blood Pressure 95/66 L 98/67 L 96/67 L Pulse Oximetry 100 100 100 04/30/18 23:15 04/30/18 23:30 04/30/18 23:45 Temperature Pulse Rate 90 91 H 91 H Respiratory Rate 22 22 22 Blood Pressure 95/67 L 94/66 L 97/66 L Pulse Oximetry 100 100 100 04/30/18 23:51 05/01/18 00:00 05/01/18 00:15 Temperature Pulse Rate 91 H 92 H 93 H Respiratory Rate 22 22 22 Blood Pressure 97/67 L 99/68 L Pulse Oximetry 100 100 05/01/18 00:30 05/01/18 00:45 05/01/18 01:00 Temperature Pulse Rate 95 H 96 H 96 H Respiratory Rate 22 22 22 Blood Pressure 97/64 L 92/63 L 94/64 L Pulse Oximetry 100 100 100 05/01/18 01:02 05/01/18 01:15 05/01/18 01:30 Temperature Pulse Rate 97 H 96 H Respiratory Rate 22 22 23 Blood Pressure 97/64 L 94/61 L Pulse Oximetry 100 100 99 05/01/18 01:45 05/01/18 02:00 05/01/18 02:15 Temperature Pulse Rate 99 H 99 H 99 H Respiratory Rate 22 22 22 Blood Pressure 95/52 L 91/54 L 89/55 L Pulse Oximetry 97 97 96 05/01/18 02:30 05/01/18 02:45 05/01/18 03:00 Temperature Pulse Rate 99 H 100 H 100 H Respiratory Rate 22 22 22 Blood Pressure 89/58 L 88/60 L 89/61 L Pulse Oximetry 96 96 96 05/01/18 03:15 05/01/18 03:30 05/01/18 03:45 Temperature Pulse Rate 100 H 99 H 100 H Respiratory Rate 22 23 23 Blood Pressure 89/59 L 88/61 L 92/62 L Pulse Oximetry 95 95 96 05/01/18 04:00 05/01/18 04:06 05/01/18 06:00 Temperature Pulse Rate 101 H 101 H 100 H Respiratory Rate 24 22 Blood Pressure 88/60 L Pulse Oximetry 95 95 05/01/18 07:00 05/01/18 07:15 05/01/18 07:30 Temperature Pulse Rate 103 H 103 H 102 H Respiratory Rate 23 23 22 Blood Pressure 89/62 L 93/64 L 93/61 L Pulse Oximetry 93 L 93 L 94 L 05/01/18 07:31 05/01/18 07:45 05/01/18 08:00 Temperature 98.7 F Pulse Rate 103 H 101 H 100 H Respiratory Rate 22 22 22 Blood Pressure 95/64 L 90/62 L Pulse Oximetry 94 L 94 L 94 L 05/01/18 08:15 05/01/18 08:30 05/01/18 08:45 Temperature Pulse Rate 99 H 99 H 95 H Respiratory Rate 25 H 25 H 24 Blood Pressure 84/58 L 83/56 L 94/62 L Pulse Oximetry 95 95 97 02/01/19 09:00 05/01/18 09:15 05/01/18 09:30 Temperature Pulse Rate 100 H 97 H 96 H Respiratory Rate Blood Pressure 83/51 L 106/61 96/57 L Pulse Oximetry 95 99 99 05/01/18 09:45 05/01/18 10:00 05/01/18 10:03 Temperature Pulse Rate 92 H 93 H Respiratory Rate 18 18 18 Blood Pressure 114/63 110/64 Pulse Oximetry 100 100 100 05/01/18 10:18 05/01/18 11:00 05/01/18 11:22 Temperature Pulse Rate 91 H 88 93 H Respiratory Rate 19 22 23 Blood Pressure 102/59 L Pulse Oximetry 95 97 100 05/01/18 12:00 05/01/18 12:06 05/01/18 12:15 Temperature Pulse Rate 99 H 100 H 101 H Respiratory Rate 25 H 25 H 24 Blood Pressure 103/59 L 104/58 L Pulse Oximetry 98 97 98 05/01/18 12:30 05/01/18 12:45 05/01/18 12:49 Temperature Pulse Rate 100 H 98 H Respiratory Rate 25 H 18 18 Blood Pressure 98/57 L 121/80 Pulse Oximetry 98 98 100 05/01/18 13:00 05/01/18 13:15 05/01/18 13:30 Temperature Pulse Rate 101 H 102 H 103 H Respiratory Rate 18 18 18 Blood Pressure 100/63 98/63 L 90/57 L Pulse Oximetry 96 97 95 05/01/18 13:45 05/01/18 14:00 05/01/18 14:53 Temperature Pulse Rate 102 H 103 H 104 H Respiratory Rate 18 18 19 Blood Pressure 93/57 L 79/56 L Pulse Oximetry 96 96 Intake & Output 04/30/18 05/01/18 05/01/18 18:59 06:59 18:59 Intake Total 1500 / 1500 900 / 900 900 / 900 Output Total 800 / 800 740 / 740 Balance 700 / 700 160 / 160 900 / 900 Weight 73.5 kg Intake: IV 300 / 300 900 / 900 900 / 900 Versed Inj 100 mg In 100 ml @ 2 100 / 100 100 / 100 MG/HR 2 mls/hr IV.CONT TITRATE PRN Rx#:[id number] Neosynephrine Inj 40 MG In D5W 500 / 500 500 / 500 Inj 496 ML @ 40 MCG/MIN 30 mls/ hr IV.CONT TITRATE PRN Rx#: [id number] Diprivan 1000 mg/100 ml Inj 1, 200 / 200 100 / 100 000 mg In 100 ml @ 5 MCG/KG/MIN 2.265 mls/hr IV.CONT TITRATE PRN Rx#:[id number] Teflaro Inj 600 MG In NS Inj 200 / 200 100 / 100 100 / 100 100 ML @ 100 mls/hr IV.SIG Q12H [facility] Rx#:[id number] Cubicin Inj 1,000 MG In NS Inj 100 / 100 100 / 100 100 ML @ 200 mls/hr IV.SIG Q24H [facility] Rx#:[id number] Oral 1200 / 1200 Output: Urine 700 / 700 Urine Amount (Catheter) 700 / 700 Straight 700 / 700 Chest Tube Drainage 100 / 100 40 / 40 Right 100 / 100 40 / 40 Other: Date of Last Bowel Movement 04/30/18 04/30/18 04/30/18 # Bowel Movements 1 0 05/01/18 11:00 Bronchial Washings - Right Acid Fast Bacilli Smear - Pending 05/01/18 11:00 Bronchial Washings - Right Mycobacterial Culture - Pending 05/01/18 11:00 Bronchial Washings - Right Fungal Smear - Pending 05/01/18 11:00 Bronchial Washings - Right Fungal Culture - Pending 05/01/18 11:00 Bronchial - Right Gram Stain - Pending 05/01/18 11:00 Bronchial - Right Bronchial Culture - Pending 04/28/18 05:35 Sputum - Expectorated Sputum Gram Stain - Final 04/28/18 05:35 Sputum - Expectorated Sputum Sputum Culture - Preliminary S. aureus MRSA Lab - Chemistry Results 04/30/18 22:01 Sodium 135 L Potassium 3.5 Chloride 94 L Carbon Dioxide 35.0 H Anion Gap 6 BUN 12 Creatinine 0.50 L Estimated GFR Greater than 89 Random Glucose 124 H Calcium 8.5 Total Bilirubin 0.2 AST 25 ALT 40 Alkaline Phosphatase 91 Total Protein 6.3 L Albumin 1.8 L Imaging: ITS Impressions Face CT 04/06/18 00:00 CONCLUSION: 1. Small focal area of soft tissue swelling involving the lateral orbital margin on the left. No abscess. Abdomen/Pelvis CT 04/10/18 00:00 CONCLUSION: 1. Findings in the patient's chest discussed on the patient's chest CT. 2. Left renal stone without hydronephrosis. 3. Slight AAA. 4. Possible gallstones within the gallbladder. 5. There is slight fluid within the peritoneal cavity in the pelvis and within left perinephric space and stranding densities involving the Gerota's fascia on the left side. The exact etiology is not certain could be inflammatory, and there is no hydronephrosis. Head MRI 04/12/18 00:00 CONCLUSION: 1. Some chronic changes with mild cortical and central atrophy. Minimal periventricular and scattered deep white matter tract areas of small vessel ischemic demyelination. 2. Some fluid or secretions identified in the dependent portion of the nasopharynx. 3. Otherwise negative. No findings of intracranial mass lesion/abscess. Lumbar Spine MRI 04/12/18 00:00 CONCLUSION: 1. No evidence of epidural abscess. 2. Grade 1 anterolisthesis at L5-S1 with associated discogenic degenerative changes and bilateral pars defects. There is significant bilateral bony neural foraminal stenosis with bilateral neural impingement. 3. Asymmetric ligamentum flavum hypertrophy on the right side at the L4-5 level flattens the dorsal lateral aspect of the thecal sac. Neural foramen remain patent. 4. Suggestion of distended urinary bladder, incompletely imaged in the field-of -view. Thoracic Spine MRI 04/12/18 00:00 CONCLUSION: 1. Small bilateral pleural effusions. 2. Spinal canal is widely patent throughout without cord compromise. No findings of a paravertebral abscess. Abdomen X-Ray 04/12/18 09:42 CONCLUSION: No evidence of ileus. Gallium Scan Nuclear Medicine 04/13/18 00:00 CONCLUSION: 1. There is abnormal uptake in the lungs corresponding to cavitary lesions probably lung abscesses and areas of consolidation seen on the patient's prior chest CT. Chest CT 04/30/18 15:36 CONCLUSION: 1. Right-sided pigtail catheter identified in the right mid chest with a very large right-sided pneumothorax remaining. There is extensive consolidation throughout the only aerated portions of the right lung with debris in the right bronchus and bronchus intermedius. Bronchoscopy would be helpful to better evaluate the bronchial contents. 2. There is multiloculated fluid collections in the right lower lobe and the right inferior lateral costophrenic angle could be multiloculated infection. 3. Small pleural effusion and some pleural thickening of the left chest. Chest X-Ray 05/01/18 09:52 CONCLUSION: Interval resolution of a loculated right pneumothorax along the lateral chest wall following chest tube placement. Persistent moderate-sized loculated pneumothorax in the right paramediastinal region of the upper lung field. Physical Exam: GENERAL: NAD On vent SKIN: Warm and dry. No rash HEAD: Atraumatic. Normocephalic. EYES: Pupils equal and round. No scleral icterus. No injection or drainage. ENT: No nasal bleeding or discharge. Mucous membranes pink and moist. NECK: Trachea midline. No JVD. CARDIOVASCULAR: Regular rate and rhythm. RESPIRATORY: No accessory muscle use. R lung with decreased BS and rhonchi to auscultation. R sided CTs x [address] GASTROINTESTINAL: Abdomen soft, non-tender, nondistended. MUSCULOSKELETAL: Extremities without clubbing, no cyanosis no significant edema. 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
[2018-05-01 17:19] LABS: Baso % (Auto) 0.6 % (0.0-2.0); Eos # (Auto) 0.2 th/mm3 (0.0-0.4); Hematocrit 32.8 % (39.0-51.0); Hemoglobin 11.2 gm/dL (13.0-17.0); Lymph # (Auto) 0.6 th/mm3 (1.0-4.8); Mean Corpuscular Hemoglobin 30.6 pg (27.0-34.0); Mean Corpuscular Volume 90.1 fL (80.0-100.0); Mean Platelet Volume 8.4 fL (7.0-11.0); Mono # (Auto) 0.8 th/mm3 (0.0-0.9); Mono % (Auto) 10.6 % (0.0-8.0); Neut # (Auto) 6.2 th/mm3 (1.8-7.7); Neut % (Auto) 77.8 % (16.0-70.0); Platelet Count 147 th/mm3 (150-450); Red Blood Count 3.64 mil/mm3 (4.50-5.90); Red Cell Distribution Width 14.7 % (11.6-17.2)
[2018-05-01] MEDS ORDERED: Potassium Chloride Liq 20 MEQ/15 ML UDC PO PRN ×2 (18:18)
[2018-05-01] MEDS ORDERED: Potassium Phosphate Inj 30 MMOL in Sodium Chlor 0.9% Inj 250 ML IV.SIG PRN (18:18)
[2018-05-01] MEDS ORDERED: Magnesium Sulfate Inj 4 GM in Sodium Chlor 0.9% Inj 92 ML IV.SIG PRN (18:18)
[2018-05-01] MEDS ORDERED: Sodium Phosphate Inj 30 MMOL in Sodium Chlor 0.9% Inj 250 ML IV.SIG PRN (18:18)
[2018-05-01] MEDS ORDERED: Potassium Chlor 40 mEq Premix 40 MEQ/100 ML PIGGYBACK IV.SIG PRN (18:18)
[2018-05-01] MEDS ORDERED: Potassium Chlor 20 mEq Premix 20 MEQ/100 ML PIGGYBACK IV.SIG PRN (18:18)
[2018-05-01] MEDS ORDERED: Magnesium Oxide 400 MG Tablet PO PRN (18:18)
[2018-05-01] MEDS ORDERED: Potassium Phosphate 500 MG Soluble Tablet PO PRN ×2 (18:18)
[2018-05-01] MEDS ORDERED: Magnesium Sulfate Inj 2 GM in Sodium Chlor 0.9% Inj 96 ML IV.SIG PRN (18:18)
--- NOTE | 2018-05-01 20:05 | P.PNPL ---
Subjective Interval history: 72 YOWM with MRSA Pn, cavitary lesion, COPD, Lt ptx mild sob Intbated Sedated Had large bore Chest tube placed had Bronch, mucous plugs removed Physical Exam Vital signs: Vital Signs 04/30/18 20:08 04/30/18 20:12 04/30/18 20:16 Temperature Pulse Rate 91 H 90 90 Respiratory Rate 22 22 22 Blood Pressure 101/70 101/70 99/69 L Pulse Oximetry 98 97 98 04/30/18 20:20 04/30/18 20:24 04/30/18 20:28 Temperature Pulse Rate 90 90 88 Respiratory Rate 22 22 22 Blood Pressure 96/67 L 104/70 108/72 Pulse Oximetry 98 98 99 04/30/18 20:32 04/30/18 20:36 04/30/18 20:40 Temperature Pulse Rate 90 90 90 Respiratory Rate 22 22 22 Blood Pressure 100/71 100/71 102/69 Pulse Oximetry 98 99 98 04/30/18 20:44 04/30/18 20:48 04/30/18 20:52 Temperature Pulse Rate 90 90 90 Respiratory Rate 22 22 22 Blood Pressure 104/71 101/70 99/69 L Pulse Oximetry 98 98 97 04/30/18 20:56 04/30/18 21:00 04/30/18 21:04 Temperature Pulse Rate 89 89 88 Respiratory Rate 22 22 22 Blood Pressure 100/71 102/71 103/72 Pulse Oximetry 98 98 98 04/30/18 21:08 04/30/18 21:12 04/30/18 21:16 Temperature Pulse Rate 87 88 87 Respiratory Rate 22 22 22 Blood Pressure 103/72 95/65 L 100/66 Pulse Oximetry 99 99 99 04/30/18 21:20 04/30/18 21:30 04/30/18 21:45 Temperature Pulse Rate 87 87 87 Respiratory Rate 22 22 22 Blood Pressure 103/69 100/69 100/70 Pulse Oximetry 100 99 100 04/30/18 22:00 04/30/18 22:15 04/30/18 22:30 Temperature Pulse Rate 86 88 88 Respiratory Rate 22 22 22 Blood Pressure 99/72 L 92/63 L 95/66 L Pulse Oximetry 100 100 100 04/30/18 22:45 04/30/18 23:00 04/30/18 23:15 Temperature Pulse Rate 89 90 90 Respiratory Rate 22 22 22 Blood Pressure 98/67 L 96/67 L 95/67 L Pulse Oximetry 100 100 100 04/30/18 23:30 04/30/18 23:45 04/30/18 23:51 Temperature Pulse Rate 91 H 91 H 91 H Respiratory Rate 22 22 22 Blood Pressure 94/66 L 97/66 L Pulse Oximetry 100 100 05/01/18 00:00 05/01/18 00:15 05/01/18 00:30 Temperature Pulse Rate 92 H 93 H 95 H Respiratory Rate 22 22 22 Blood Pressure 97/67 L 99/68 L 97/64 L Pulse Oximetry 100 100 100 05/01/18 00:45 05/01/18 01:00 05/01/18 01:02 Temperature Pulse Rate 96 H 96 H Respiratory Rate 22 22 22 Blood Pressure 92/63 L 94/64 L Pulse Oximetry 100 100 100 05/01/18 01:15 05/01/18 01:30 05/01/18 01:45 Temperature Pulse Rate 97 H 96 H 99 H Respiratory Rate 22 23 22 Blood Pressure 97/64 L 94/61 L 95/52 L Pulse Oximetry 100 99 97 05/01/18 02:00 05/01/18 02:15 05/01/18 02:30 Temperature Pulse Rate 99 H 99 H 99 H Respiratory Rate 22 22 22 Blood Pressure 91/54 L 89/55 L 89/58 L Pulse Oximetry 97 96 96 05/01/18 02:45 05/01/18 03:00 05/01/18 03:15 Temperature Pulse Rate 100 H 100 H 100 H Respiratory Rate 22 22 22 Blood Pressure 88/60 L 89/61 L 89/59 L Pulse Oximetry 96 96 95 05/01/18 03:30 05/01/18 03:45 05/01/18 04:00 Temperature Pulse Rate 99 H 100 H 101 H Respiratory Rate 23 23 24 Blood Pressure 88/61 L 92/62 L 88/60 L Pulse Oximetry 95 96 95 05/01/18 04:06 05/01/18 06:00 05/01/18 07:00 Temperature Pulse Rate 101 H 100 H 103 H Respiratory Rate 22 23 Blood Pressure 89/62 L Pulse Oximetry 95 93 L 05/01/18 07:15 05/01/18 07:30 05/01/18 07:31 Temperature Pulse Rate 103 H 102 H 103 H Respiratory Rate 23 22 22 Blood Pressure 93/64 L 93/61 L Pulse Oximetry 93 L 94 L 94 L 05/01/18 07:45 05/01/18 08:00 05/01/18 08:15 Temperature 98.7 F Pulse Rate 101 H 100 H 99 H Respiratory Rate 22 22 25 H Blood Pressure 95/64 L 90/62 L 84/58 L Pulse Oximetry 94 L 94 L 95 05/01/18 08:30 05/01/18 08:45 05/01/18 09:00 Temperature Pulse Rate 99 H 95 H 100 H Respiratory Rate 25 H 24 Blood Pressure 83/56 L 94/62 L 83/51 L Pulse Oximetry 95 97 95 05/01/18 09:15 05/01/18 09:30 05/01/18 09:45 Temperature Pulse Rate 97 H 96 H 92 H Respiratory Rate 18 Blood Pressure 106/61 96/57 L 114/63 Pulse Oximetry 99 99 100 05/01/18 10:00 05/01/18 10:03 05/01/18 10:18 Temperature Pulse Rate 93 H 91 H Respiratory Rate 18 18 19 Blood Pressure 110/64 102/59 L Pulse Oximetry 100 100 95 05/01/18 11:00 05/01/18 11:22 05/01/18 12:00 Temperature Pulse Rate 88 93 H 99 H Respiratory Rate 22 23 25 H Blood Pressure Pulse Oximetry 97 100 98 05/01/18 12:06 05/01/18 12:15 05/01/18 12:30 Temperature Pulse Rate 100 H 101 H 100 H Respiratory Rate 25 H 24 25 H Blood Pressure 103/59 L 104/58 L 98/57 L Pulse Oximetry 97 98 98 05/01/18 12:45 05/01/18 12:49 05/01/18 13:00 Temperature Pulse Rate 98 H 101 H Respiratory Rate 18 18 18 Blood Pressure 121/80 100/63 Pulse Oximetry 98 100 96 05/01/18 13:15 05/01/18 13:30 05/01/18 13:45 Temperature Pulse Rate 102 H 103 H 102 H Respiratory Rate 18 18 18 Blood Pressure 98/63 L 90/57 L 93/57 L Pulse Oximetry 97 95 96 05/01/18 14:00 05/01/18 14:53 05/01/18 16:00 Temperature 98.5 F Pulse Rate 103 H 104 H 107 H Respiratory Rate 18 19 18 Blood Pressure 79/56 L 88/61 L Pulse Oximetry 96 98 05/01/18 16:43 05/01/18 18:00 05/01/18 19:49 Temperature Pulse Rate 110 H 98 H Respiratory Rate 18 20 18 Blood Pressure 94/61 L Pulse Oximetry 98 97 99 Intake & Output 05/01/18 05/01/18 05/02/18 06:59 18:59 06:59 Intake Total 995.6 / 995.6 1370 / 1370 33 / 33 Output Total 740 / 740 930 / 930 Balance 255.6 / 255.6 440 / 440 33 / 33 Weight 73.5 kg Intake: IV 995.6 / 995.6 1370 / 1370 33 / 33 Versed Inj 100 mg In 100 ml @ 2 100 / 100 167 / 167 33 / 33 MG/HR 2 mls/hr IV.CONT TITRATE PRN Rx#:[id number] Neosynephrine Inj 40 MG In D5W 500 / 500 803 / 803 Inj 496 ML @ 40 MCG/MIN 30 mls/ hr IV.CONT TITRATE PRN Rx#: [id number] Diprivan 1000 mg/100 ml Inj 1, 200 / 200 200 / 200 000 mg In 100 ml @ 5 MCG/KG/MIN 2.265 mls/hr IV.CONT TITRATE PRN Rx#:[id number] Teflaro Inj 600 MG In NS Inj 100 / 100 100 / 100 100 ML @ 100 mls/hr IV.SIG Q12H [facility] Rx#:[id number] Cubicin Inj 1,000 MG In NS Inj 100 / 100 100 ML @ 200 mls/hr IV.SIG Q24H [facility] Rx#:[id number] fentaNYL 10 mcg/mL Premix Drip 95.6 / 95.6 0 / 0 2,500 mcg In 250 ml @ 50 MCG/HR 5 mls/hr IV.SIG TITRATE PRN Rx #:[id number] Output: Urine Amount (Catheter) 700 / 700 800 / 800 Straight 700 / 700 800 / 800 Chest Tube Drainage 40 / 40 130 / 130 Right 40 / 40 40 / 40 Right Lower 90 / 90 Other: Date of Last Bowel Movement 04/30/18 04/30/18 # Bowel Movements 0 GENERAL: Elderly Wm, on vent SKIN: Warm and dry. HEAD: Normocephalic. EYES: No scleral icterus. No injection or drainage. NECK: Supple, trachea midline. No JVD or lymphadenopathy. CARDIOVASCULAR: Regular rate and rhythm without murmurs, gallops, or rubs. RESPIRATORY: Breath sounds equal bilaterally. No accessory muscle use. @ chest tubes with air leak GASTROINTESTINAL: Abdomen soft, non-tender, nondistended. MUSCULOSKELETAL: No cyanosis, or edema. BACK: Nontender without obvious deformity. No CVA tenderness. - Urinary Catheter Management Indwelling Urethral Catheter Cath placed during this visit: yes, but has since been removed by the nurse Reason for continuing: Acute urinary retention Insertion date: 04/05/18 Insertion time: 23:00 Removal date: 04/12/18 Removal time: 08:30 Condom Cath placed during this visit: no Reason for continuing: Acute urinary retention Straight Cath placed during this visit: yes Reason for continuing: Acute urinary retention Insertion date: 04/08/18 Insertion time: 18:00 Assessment and Plan - Plan IMPRESSION: 1. MRSA pneumonia. 2. Cavitary pneumonia. 4. Chronic obstructive pulmonary disease. 5. Hypotension. 6. Left pneumothorax, status post chest tube.removal 7. Nicotine use. 8. Right Ptx 9. VDRF PLAN: Cont Abx per ID Ceftaroline, Zyvox, Daptomycin Aerosol nebs Vent Support Chest tube to suction DW , will consult CTS Check BAL results.
[2018-05-01] MEDS: Enoxaparin Inj 40 MG/0.4 ML Syringe SQ SCH (22:09)
[2018-05-02] MEDS: Propofol 1000 mg/100 ml Inj 1,000 MG/100 ML BOTTLE IV.CONT PRN ×3 (01:06→17:31)
[2018-05-02] MEDS: Oral Hygiene Kit OROPHARYNG SCH ×4 (01:06→15:50)
--- NOTE | 2018-05-02 02:46 | XR ---
EXAM DATE: 05/02/2018 2:39 AM EST AGE/SEX: 72 years / Male INDICATIONS: Shortness of breath, possible pneumothorax. CLINICAL DATA: This is the patient's subsequent encounter. Patient reports that signs and symptoms h ave been present for 3 weeks and indicates a pain score of 5/10. MEDICAL/SURGICAL HISTORY: Chronic obstructive pulmonary disease. Hypertension. MRSA. Chest tu be, right. COMPARISON: C, CHEST 1V SINGLE AP, 05/01/2018. . FINDINGS: The ET tube and NG tube are well placed. There is a right subclavian line in good position. There is a right-sided chest tube present. A pneumothorax is not seen. The heart size is normal. There is incr eased density in the right hilar region extending to the right upper lobe. There is also increased de nsity at the right base. There is mild right pleural fluid present. There are some mild increased den sity at the lateral left base. There is chronic appearing linear density seen in the left upper lobe. Subcutaneous emphysema seen in the right lateral chest. CONCLUSION: Right chest tube. A pneumothorax is not clearly seen on this examination. Increased density in the right hilar region extending into the right upper lobe. Central mass could h ave this appearance. Suspected consolidation and/or atelectasis at the right base. Mild right pleural effusion. Minimal increased density at the lateral left base. Linear density seen in the left upper lobe which could be from scarring. Electronically signed by: Akash Worley MD Board Certified Radiologist 05/02/2018 2:45 AM EST
[2018-05-02 04:07] LABS: Hematocrit 32.7 % (39.0-51.0); Hemoglobin 11.1 gm/dL (13.0-17.0); Mean Corpuscular HGB Conc 33.9 % (32.0-36.0); Mean Corpuscular Volume 88.5 fL (80.0-100.0); Mean Platelet Volume 7.9 fL (7.0-11.0); Platelet Count 153 th/mm3 (150-450); Red Cell Distribution Width 14.4 % (11.6-17.2); White Blood Count 8.4 th/mm3 (4.0-11.0)
[2018-05-02 04:36] LABS: Alanine Aminotransferase 34 U/L (12-78); Albumin 1.6 g/dL (3.4-5.0); Anion Gap 7 meq/L (5-15); Aspartate Aminotransferase 22 U/L (15-37); Blood Urea Nitrogen 11 mg/dL (7-18); Calcium 8.4 mg/dL (8.5-10.1); Carbon Dioxide 32.4 meq/L (21.0-32.0); Chloride 95 meq/L (98-107); Glomerular Filtration Rate Greater Than 89 mL/min (>89); Glucose,Random 117 mg/dL (74-106); Magnesium 1.7 mg/dL (1.5-2.5); Sodium 134 meq/L (136-145)
[2018-05-02 04:38] LABS: Alkaline Phosphatase 112 U/L (45-117); Total Protein 6.2 g/dL (6.4-8.2)
[2018-05-02] MEDS: Artificial Tears Opth Drops 15 ML Bottle EACH EYE SCH ×3 (05:07→20:23)
[2018-05-02] MEDS: Chlorhexidine 0.12% Oral Kit 15 ML UDC OROPHARYNG SCH ×2 (07:45→20:15)
[2018-05-02] MEDS: guaiFENesin 600 MG ER Tablet PO SCH ×2 (08:14→20:22)
[2018-05-02] MEDS: Sennosides Liq 8.8 MG/5 ML UDC PO SCH (08:14)
[2018-05-02] MEDS: Famotidine PF Inj 20 MG/2 ML Vial IV.PUSH SCH ×2 (08:14→20:22)
[2018-05-02] MEDS: Metoprolol Tartrate 100 MG Tablet PO SCH ×2 (08:14→20:22)
[2018-05-02] MEDS: Docusate Sodium 100 MG Capsule PO SCH ×2 (08:14→20:22)
[2018-05-02] MEDS: Sodium Chloride 0.9% 2 ML Flush BID IV.FLUSH SCH ×2 (08:15→20:23)
[2018-05-02] MEDS: Midazolam 100 MG/100 ML Inj 100 MG/100 ML BAG IV.CONT PRN ×2 (08:21→21:52)
--- NOTE | 2018-05-02 10:01 | P.PNCC ---
Subjective Subjective Remarks/Hospital Course: Patient is 72-year-old male with past medical history of COPD, tobacco abuse and hypertension who came to the emergency room for shortness of breath via EMS. On EMS arrival saturation was in the 90s, but patient had significant shortness of breath and dyspnea. Patient received Solu-Medrol 125 mg IV and breathing treatments by EMS and was brought to the emergency department. In the emergency department patient received further breathing treatments and chest x-ray showed patchy infiltrate on bilateral lung fitzgerald. Initially maintaining oxygen saturation with nasal cannula. Initial blood pressure was 85 /65, improved with normal saline boluses. WBC count was 17.1. Patient was deemed septic from pneumonia and patient was ordered to receive vancomycin and Zosyn. While receiving vancomycin patient acutely decompensated became extremely short of breath and developed erythematous maculopapular rash involving face torso armpits and groin region. Emergently intubated and placed on mechanical ventilation by the ED physician. Received IV 50 mg Benadryl. Critical care medicine was requested to admit the patient. I evaluated the patient immediately in the emergency department. Patient is intubated on Versed and fentanyl infusion however he is very asynchronous with the vent triggering ventilator alarms. Severe bilateral expiratory wheezing heard on auscultation. He has extensive skin rash predominantly face forehead torso armpit and groins. Appears like patient had anaphylactic reaction to vancomycin complicated by COPD exacerbation and pneumonia. I have ordered additional Solu-Medrol 100 mg x1 scheduled Benadryl and famotidine, antibiotics with cefepime and Levaquin. Increase Versed infusion, add propofol and use neuromuscular paralysis as needed. Will request pharmacy to add vancomycin to allergy. ED physician Dr. Slater had noticed that patient had some swelling on the left side of his face on arrival, however the skin rash after vancomycin was started was new. Patient remains hypotensive has received 2 L of normal saline in the emergency department and no significant urine output. I have ordered additional 2 L normal saline bolus and maintenance fluid at 84 mL/h. Use Levophed as needed to keep map above 65 Subjective 04/06: Off norepinephrine drip. Currently resting in bed in no acute distress on midazolam and fentanyl drips. Start tube feeding today. 04/07: Remains sedated, intubated on mechanical ventilation. Blood cultures growing MRSA 04/08: remains sedated and intubated. repeat cultures still growing MRSA 2/4 cultures. likely need to repeat BCx either today or tomorrow. agree with narrowing spectrum abx. performed DEEDEE at ID recommendation (need to r/o endocarditis), but no evidence of vegetations. remains hypoxic. off vasopressors today. 04/09: adequate auto-diuresis overnight. off vasopressors. on sedation vacation. hypoxia improving. 04/10 Patient remains intubated and sedated with Fentanyl infusion. Became tachycardic and tachypneic overnight requiring increase sedation. Afebrile. 04/11 Patient is intubated and sedated. Afebrile. 04/12 Patient remains intubated and sedated with Diprivan and Fentanyl infusion, Afebrile. 04/13: Sedated, easily arousable, orally intubated on mechanical ventilation. 04/14 Patient was extubated yesterday. Afebrile. 04/15 Patient is lying in bed in NAD. On 3L oxygen. Awake and alert. 04/16 Patient is on partial rebreather. Afebrile. Awake and alert. 04/17: Left-sided chest tube placed for pneumothorax yesterday. On nasal cannula currently. Awake and alert. Appears comfortable. No air leak noted in Pleur-evac 04/18: Remains on nasal cannula. No air leak noted from left-sided chest tube. 04/19: On 5 L nasal cannula. Chest tube in place, no air leak noted. Resting in bed comfortably, no acute distress. Continues to have productive cough. 04/20: Remains on nasal cannula. Chest tube in place, no air leak noted. Resting in bed comfortably. 04/24: RECONSULT NOTE: called emergently by Hospitalist team. patient with new acute respiratory distress. Chest x-ray demonstrates new large right-sided pneumothorax. I went to evaluate the patient is seen in significant distress. I emergently placed right-sided pigtail chest tube. Significant denney of air with no air leak on chest tube. Respiratory distress improved after chest tube placement. Repeat interval chest x-ray demonstrates good placement of chest tube with resolution of pneumothorax. 04/26/18: RECONSULT NOTE: [facility] reconsulted for rexpansion of right pneumothorax. Patient developed increased SOB today without improvement with nebulizer. STAT CXR Moderate to large right pneumothorax has redeveloped and with a probable tension component. He appears to be in moderate distress tachypneic. Patient was moved to the ICU where I evaluated the patient emergently. The right pigtail chest tube is still in place, minimal air leak. I flushed the chest tube but was difficult to withdraw air. I then pulled back the chest tube by approximately 3 cm. Able to withdraw air more easily and on connection to the Vacutainer again there was significant air leak in all chambers. Patient subjectively felt improvement in shortness of breath after chest tube placement. Stat repeat chest x-ray shows near complete reexpansion of the right knee 04/30/18: [facility] RECONSULT NOTE: Critical care, reconsult for worsening respiratory failure. I evaluate the patient urgently. He is very tachypneic diaphoretic. Chest x-ray today showed possible right upper lobe pneumothorax and increasing right effusion. I did an emergent bedside ultrasound which shows probably loculated complicated right pleural effusion. Patient likely needs more further imaging and procedures and in very labored breathing. Proceeded with endotracheal intubation in place patient on mechanical ventilation. I explained plan of care prior to intubation. He understands that he may need emergency chest tube placement and also may need surgical intervention 05/01/18: Patient remains intubated sedated. Hypotensive on 75 mcg/min of Beau- Synephrine. While sedated. CT chest showed severe right lower lung consolidation large pneumothorax/hydropneumothorax on the right side. Plan for large bore chest tube and central line today. Also cardiothoracic surgery was consulted, and I discussed with Dr. Schaeffer. I will plan for a large bore chest tube to the right side followed by a central line placement. 05/02/18: Patient remains intubated heavily sedated for vent synchrony. Right chest tube with large air leak in all chambers. There is possibility of bronchopleural fistula. Chest x-ray shows improved air entry right lung. Discussed with cardiothoracic surgery Dr. Ontiveros today. Will repeat CT scan to see if lung is reexpanding. May need decortication procedure Objective Vital Signs / I&O: Vital Signs 05/01/18 10:00 05/01/18 10:03 05/01/18 10:18 Temperature Pulse Rate 93 H 91 H Respiratory Rate 18 19 Blood Pressure 110/64 102/59 L Pulse Oximetry 100 100 95 05/01/18 11:00 05/01/18 11:22 05/01/18 12:00 Temperature Pulse Rate 88 93 H 99 H Respiratory Rate 22 23 25 H Blood Pressure Pulse Oximetry 97 100 98 05/01/18 12:06 05/01/18 12:15 05/01/18 12:30 Temperature Pulse Rate 100 H 101 H 100 H Respiratory Rate 25 H 24 25 H Blood Pressure 103/59 L 104/58 L 98/57 L Pulse Oximetry 97 98 98 05/01/18 12:45 05/01/18 12:49 05/01/18 13:00 Temperature Pulse Rate 98 H 101 H Respiratory Rate 18 18 18 Blood Pressure 121/80 100/63 Pulse Oximetry 98 100 96 05/01/18 13:15 05/01/18 13:30 05/01/18 13:45 Temperature Pulse Rate 102 H 103 H 102 H Respiratory Rate 18 18 18 Blood Pressure 98/63 L 90/57 L 93/57 L Pulse Oximetry 97 95 96 05/01/18 14:00 05/01/18 14:53 05/01/18 16:00 Temperature 98.5 F Pulse Rate 103 H 104 H 107 H Respiratory Rate 18 19 18 Blood Pressure 79/56 L 88/61 L Pulse Oximetry 96 98 05/01/18 16:43 05/01/18 18:00 05/01/18 18:15 Temperature Pulse Rate 110 H 109 H Respiratory Rate 18 20 20 Blood Pressure 94/61 L 110/62 Pulse Oximetry 98 97 98 05/01/18 18:30 05/01/18 18:45 05/01/18 19:00 Temperature Pulse Rate 109 H 106 H 101 H Respiratory Rate 19 20 20 Blood Pressure 97/67 L 98/68 L 105/71 Pulse Oximetry 97 96 96 05/01/18 19:15 05/01/18 19:30 05/01/18 19:45 Temperature Pulse Rate 97 H 98 H 98 H Respiratory Rate 18 19 20 Blood Pressure 115/76 117/78 112/71 Pulse Oximetry 97 96 97 05/01/18 19:49 05/01/18 20:00 05/01/18 20:15 Temperature Pulse Rate 98 H 100 H 103 H Respiratory Rate 18 20 20 Blood Pressure 106/67 105/71 Pulse Oximetry 99 95 95 05/01/18 20:30 05/01/18 20:45 05/01/18 21:00 Temperature Pulse Rate 104 H 108 H 109 H Respiratory Rate 19 19 18 Blood Pressure 107/74 103/74 103/70 Pulse Oximetry 95 95 95 05/01/18 21:15 05/01/18 21:30 05/01/18 21:45 Temperature Pulse Rate 111 H 117 H 120 H Respiratory Rate 18 21 22 Blood Pressure 101/72 97/59 L 86/51 L Pulse Oximetry 95 90 L 92 L 05/01/18 22:00 05/01/18 22:15 05/01/18 22:31 Temperature Pulse Rate 116 H 119 H 118 H Respiratory Rate 20 21 22 Blood Pressure 91/55 L 92/60 L 98/64 L Pulse Oximetry 95 95 95 05/01/18 22:45 05/01/18 23:00 05/01/18 23:15 Temperature Pulse Rate 117 H 117 H 117 H Respiratory Rate 22 20 20 Blood Pressure 105/66 102/63 102/66 Pulse Oximetry 94 L 95 95 05/01/18 23:30 05/01/18 23:45 05/01/18 23:50 Temperature Pulse Rate 117 H 118 H 118 H Respiratory Rate 21 23 21 Blood Pressure 107/67 97/60 L Pulse Oximetry 95 95 05/02/18 00:00 05/02/18 00:02 05/02/18 00:15 Temperature Pulse Rate 115 H 117 H Respiratory Rate 19 21 18 Blood Pressure 101/63 94/64 L Pulse Oximetry 93 L 95 93 L 05/02/18 00:30 05/02/18 00:45 05/02/18 01:00 Temperature Pulse Rate 117 H 116 H 113 H Respiratory Rate 18 18 18 Blood Pressure 97/64 L 90/62 L 92/66 L Pulse Oximetry 94 L 95 96 05/02/18 01:15 05/02/18 01:30 05/02/18 01:45 Temperature Pulse Rate 109 H 108 H 107 H Respiratory Rate 18 18 18 Blood Pressure 98/63 L 93/63 L 107/53 L Pulse Oximetry 97 93 L 95 05/02/18 02:00 05/02/18 02:15 05/02/18 02:30 Temperature Pulse Rate 104 H 101 H 96 H Respiratory Rate 18 18 21 Blood Pressure 92/63 L 93/66 L 101/70 Pulse Oximetry 95 97 100 05/02/18 02:45 05/02/18 03:00 05/02/18 03:15 Temperature Pulse Rate 93 H 92 H 91 H Respiratory Rate 21 20 19 Blood Pressure 113/69 113/75 115/75 Pulse Oximetry 100 100 100 05/02/18 03:21 05/02/18 03:30 05/02/18 03:45 Temperature Pulse Rate 91 H 93 H 96 H Respiratory Rate 19 18 18 Blood Pressure 103/68 108/71 Pulse Oximetry 98 100 05/02/18 04:00 05/02/18 04:01 05/02/18 04:15 Temperature Pulse Rate 96 H 100 H Respiratory Rate 18 19 18 Blood Pressure 113/76 111/70 Pulse Oximetry 100 100 100 05/02/18 04:30 05/02/18 04:45 05/02/18 05:00 Temperature Pulse Rate 101 H 102 H 103 H Respiratory Rate 18 18 18 Blood Pressure 111/73 119/74 110/73 Pulse Oximetry 100 100 100 05/02/18 05:15 05/02/18 05:30 05/02/18 05:45 Temperature Pulse Rate 109 H 111 H 105 H Respiratory Rate 18 18 18 Blood Pressure 94/61 L 91/55 L 101/69 Pulse Oximetry 99 98 99 05/02/18 06:00 05/02/18 07:00 05/02/18 07:21 Temperature Pulse Rate 101 H 96 H Respiratory Rate 18 18 18 Blood Pressure 106/73 114/71 Pulse Oximetry 100 97 97 05/02/18 07:30 05/02/18 08:00 05/02/18 09:00 Temperature 100.7 F H Pulse Rate 96 H 100 H 97 H Respiratory Rate 18 19 19 Blood Pressure 96/64 L 101/71 Pulse Oximetry 96 96 Intake & Output 05/01/18 05/02/18 05/02/18 18:59 06:59 18:59 Intake Total 1370 / 1370 1130 / 1130 33 / 33 Output Total 930 / 930 1270 / 1270 Balance 440 / 440 -140 / -140 / 33 Weight 75.5 kg Intake: IV 1370 / 1370 1030 / 1030 33 / 33 Versed Inj 100 mg In 100 ml @ 2 167 / 167 33 / 33 33 / 33 MG/HR 2 mls/hr IV.CONT TITRATE PRN Rx#:[id number] Neosynephrine Inj 40 MG In D5W 803 / 803 197 / 197 Inj 496 ML @ 40 MCG/MIN 30 mls/ hr IV.CONT TITRATE PRN Rx#: [id number] Diprivan 1000 mg/100 ml Inj 1, 200 / 200 100 / 100 000 mg In 100 ml @ 5 MCG/KG/MIN 2.265 mls/hr IV.CONT TITRATE PRN Rx#:[id number] Teflaro Inj 600 MG In NS Inj 100 / 100 100 / 100 100 ML @ 100 mls/hr IV.SIG Q12H [place] Rx#:[id number] Cubicin Inj 1,000 MG In NS Inj 100 / 100 100 ML @ 200 mls/hr IV.SIG Q24H [place] Rx#:[id number] Zyvox 600 mg Premix 300 ML @ 600 / 600 300 mls/hr IV.SIG Q12H [place] Rx#: [id number] fentaNYL 10 mcg/mL Premix Drip 0 / 0 2,500 mcg In 250 ml @ 50 MCG/HR 5 mls/hr IV.SIG TITRATE PRN Rx #:[id number] Tube Irrigant 100 / 100 Output: Urine Amount (Catheter) 800 / 800 1200 / 1200 Straight 800 / 800 1200 / 1200 Chest Tube Drainage 130 / 130 70 / 70 Right 40 / 40 Right Lower 90 / 90 70 / 70 Other: Date of Last Bowel Movement 04/30/18 04/30/18 04/30/18 # Bowel Movements 0 Result Diagrams: 05/02/18 03:55 05/02/18 03:55 Objective Remarks: GENERAL: Patient is lying in bed in critically ill intubated heavily sedated SKIN: Warm and dry. HEAD: Atraumatic. Normocephalic. EYES: Pupils equal and round. No scleral icterus. ENT: No nasal bleeding or discharge. Mucous membranes moist. Orotracheally intubated NECK: Trachea midline. No JVD. CARDIOVASCULAR: Tachycardic rate and rhythm. sinus. Beau-Synephrine at 75 mcg/ min RESPIRATORY: Intubated sedated. Coarse rhonchi and wheezes right lower lung and rhonchi in the left lung. Air entry diminished with right upper lung. Hyperresonant to percussion over the right upper chest wall. Coarse crackles right base. Subcutaneous emphysema present on the right chest wall. 28 Omani chest tube to the right with 4+ airleak GASTROINTESTINAL: Abdomen soft, non-tender, nondistended. no guarding. MUSCULOSKELETAL: Extremities without clubbing, cyanosis, or edema. No obvious deformities. NEUROLOGICAL: Intubated heavily sedated for vent synchrony with propofol and Versed. Moves all extremities withdraws to pain. No focal deficits Assessment and Plan - Problem List (1) Anaphylaxis Code(s): T78.2XXA - Anaphylactic shock, unspecified, initial encounter Status : Acute (2) COPD with acute exacerbation Code(s): J44.1 - Chronic obstructive pulmonary disease with (acute) exacerbation Status: Acute (3) Bilateral pneumonia Code(s): J18.9 - Pneumonia, unspecified organism Status: Acute (4) Allergic reaction caused by a drug Code(s): T78.40XA - Allergy, unspecified, initial encounter Status: Acute (5) Acute respiratory failure Code(s): J96.00 - Acute respiratory failure, unspecified whether with hypoxia or hypercapnia Status: Acute (6) Severe sepsis Code(s): A41.9 - Sepsis, unspecified organism; R65.20 - Severe sepsis without septic shock Status: Acute (7) Leukocytosis Code(s): D72.829 - Elevated white blood cell count, unspecified Status: Acute (8) Hypotension Code(s): I95.9 - Hypotension, unspecified Status: Acute (9) Acute kidney injury Code(s): N17.9 - Acute kidney failure, unspecified Status: Acute (10) Hyponatremia Code(s): E87.1 - Hypo-osmolality and hyponatremia Status: Acute (11) Hyperglycemia Code(s): R73.9 - Hyperglycemia, unspecified Status: Acute (12) History of hypertension Code(s): Z86.79 - Personal history of other diseases of the circulatory system Status: Chronic (13) Tobacco abuse Code(s): Z72.0 - Tobacco use Status: Chronic (14) History of COPD Code(s): Z87.09 - Personal history of other diseases of the respiratory system Status: Chronic - Assessment and Plan Plan: Assessment: 72-year-old male with known necrotizing MRSA pneumonia and hypoxemia requiring supplemental oxygenation now with acute respiratory distress secondary to acute right pneumothorax. Status post emergent chest tube decompression. Previously was transferred to [facility] service now reconsulted 04/30/2018 now with what appears to be persistent right pneumothorax and loculated complicated right pleural effusion most likely parapneumonic. Intubated large bore chest tube placed 05/01/2018. Remains very critical with persistent air leak septic shock from necrotizing MRSA pneumonia. Prognosis appears guarded Active problems: Acute hypoxemic respiratory failure Persistent large right-sided pneumothorax Right-sided complicated pleural effusion MRSA pneumonia with probable lung abscess Severe necrotizing pneumonia Probable septic emboli to the left lung Septic shock COPD with exacerbation MRSA bacteremia Severe sepsis MRSA pneumonia Plan: NEURO: -Propofol and versed for sedation and ventilator synchrony -Daily sedation vacation once more stable RESP: -PRVC/AC, Ventilator bundle -DuoNeb every 4 hours scheduled and as needed -CT of the chest done 04/30/2018 shows large persistent right pneumothorax pleural effusion and significant right lower lung consolidation with probable cavitation/abscess -s/p 28 Omani chest tube to the right side, now with reexpansion of the lung but continued significant air leak -Dr. Carey did bronchoscopy yesterday large amount of mucus plugging removed from right upper lobe -Repeat CT chest today to evaluate for lung reexpansion. Discussed with Dr. Ontiveros -Infectious disease and Pulmonology is following -Continue antibiotics per ID CV: -Normal saline IV fluids 100 ml per hour -Beau-Synephrine if needed to keep map above 65 GI: -N.p.o., IV famotidine -Start tube feeds today if no further procedures : -Monitor renal function closely. Shine catheter if patient continues to retain. ID: -Antibiotics per ID. Currently on Teflaro, Zyvox and daptomycin -Further cultures per ID -Xdomxwdfkasb-mezrsy-bm cultures -May need decortication procedure cardiothoracic surgery following HEME: -Monitor CBC, coags ENDO: -Electrolyte replacement per protocol -Sliding scale insulin if needed PROPH: -Bilateral lower extremity SCDs. Lovenox/famotidine LINES: -Utilize peripheral IVs, right subclavian central line placed to 119 CC time 45 min excluding procedures This patient remains critically ill with one or more organ systems which are or may become a threat to life. I have spent in excess of 45 minutes discontinuously in the care and management of this patient. This time is exclusive of procedures, and includes, but is not limited to, evaluation of the patient, review of the medical record, discussions with family, consultants, nursing staff, or respiratory therapy, and documentation in the medical record. STAT CT showed Right-sided pigtail catheter in the right mid chest with a large right-sided pneumothorax remaining. There is extensive consolidation throughout the only aerated portions of the right lung with debris in the right bronchus and bronchus intermedius. There is multiloculated fluid collections in the right lower lobe and the right inferior lateral costophrenic angle could be multiloculated infection. After the CT was reviewed I reevaluate the positioning of the chest tube and it was noted that the chest tube may be obstructed. I flushed with normal saline and reopened the chest tube with now 1-2+ airleak. No need of additional chest tube at this time as the patient has no features of tension. Cardiothoracic surgery consulted for probable lung abscess and persistent pneumothorax I have updated patient's daughter on the phone 05/01/2018 (1) Anaphylaxis Qualifiers: Encounter type: initial encounter Qualified Code(s): T78.2XXA - Anaphylactic shock, unspecified, initial encounter (3) Bilateral pneumonia Qualifiers: Pneumonia type: due to unspecified organism Lung location: unspecified part of lung Qualified Code(s): J18.9 - Pneumonia, unspecified organism (4) Allergic reaction caused by a drug Qualifiers: Encounter type: initial encounter Qualified Code(s): T78.40XA - Allergy, unspecified, initial encounter (5) Acute respiratory failure Qualifiers: Respiratory failure complication: unspecified whether with hypoxia or hypercapnia Qualified Code(s): J96.00 - Acute respiratory failure, unspecified whether with hypoxia or hypercapnia (7) Leukocytosis Qualifiers: Leukocytosis type: unspecified Qualified Code(s): D72.829 - Elevated white blood cell count, unspecified (8) Hypotension Qualifiers: Hypotension type: unspecified hypotension type Qualified Code(s): I95.9 - Hypotension, unspecified
--- NOTE | 2018-05-02 11:07 | CT ---
EXAM DATE: 05/02/2018 10:44 AM EST AGE/SEX: 72 years / Male INDICATIONS: Abnormal prior imaging. CLINICAL DATA: This is the patient's initial encounter. Patient reports that signs and symptoms have been present for 1 day and indicates a pain score of Nonresponsive. MEDICAL/SURGICAL HISTORY: Chronic obstructive pulmonary disease. Hypertension. . chest tube placem ent, back surgery RADIATION DOSE: 8.08 CTDI (mGy) COMPARISON: [facility] [place], CT CHEST W CONTRAST, 04/30/2018. [facility] [place], CT CHEST W CONTRAST, 04/16/2018. . TECHNIQUE: Multiple contiguous axial images were obtained through the chest without contrast. Image s were obtained in suspended respiration using multiple row detector helical technique. Using automa milad exposure control and adjustment of the mA and/or kV according to patient size, radiation dose was kept as low as reasonably achievable to obtain optimal diagnostic quality images. DICOM format imag e data is available electronically for review and comparison. FINDINGS: Lungs: There is an endotracheal tube identified within the trachea. Right-sided apically directed ch est tube. There has been significant decrease size of the anterior pneumothorax with improved aeratio n of the right upper lobe and right lower lobe. There is persistent large air-fluid level involving t he posterior medial right hemithorax with areas of loculated pleural fluid seen posterior medially. A small foci of air identified within these areas of loculation concerning for abscess. There is airsp kevin consolidation involving the basilar aspect of the right lower lobe and persistent irregular paren chymal density involving the apical aspect of the right upper lobe with large foci of air. The small air-fluid collection identified within the left upper lobe is decreased in size from the prior exams. Air-fluid level identified within the left lower lobe appears stable. Similar appearance within the basilar aspect of the left lower lobe also appear stable. Mediastinum: There is good visualization of the great vessels of the middle mediastinum. No evidenc e of mediastinal or hilar adenopathy/mass. Pleurae: Loculated pleural effusions identified within the inferior posterior right hemithorax as no milad above. Small left-sided loculated pleural effusion. Axillae: Unremarkable. Bony Structures: Unremarkable. Miscellaneous: The examination was extended to include the upper abdomen, and both adrenal glands ar e normal in size and configuration. CONCLUSION: 1. Overall improving exam with improved aeration of the right hemithorax. Persistent areas of locula milad pleural effusion. These demonstrate foci of air within the right lower lobe and are concerning fo r abscess. Airspace abnormalities within the left hemithorax appears stable to smaller in size from p rior exam. Electronically signed by: Arielle Short MD Board Certified Radiologist 05/02/2018 11:06 AM EST
[2018-05-02] MEDS: DAPTOmycin Inj 1,000 MG in Sodium Chlor 0.9% Inj 100 ML IV.SIG SCH (13:34)
--- NOTE | 2018-05-02 15:39 | MB ---
cc: Angeli Victoria MD DATE: 05/02/2018 HISTORY OF PRESENT ILLNESS: A 72-year-old male admitted on 04/05/2018 via the emergency department for shortness of breath, brought in by EMS with COPD exacerbation, also history of tobacco abuse. The patient became hypotensive, was found to have bilateral patchy infiltrates and was deemed septic from pneumonia, received immediate antibiotics. He also received a dose of vancomycin and apparently had some post maculopapular rash. He was emergently intubated and placed on ventilator by the emergency physician. Patient was successfully resuscitated with IV fluids, transferred to the emergency department where he remained on pressors. He was actually extubated on 04/14/2018 and was found to have developed a left-sided pneumothorax. A chest tube was placed and on 04/24/2018 patient went into acute respiratory distress. The chest x-ray showed a new right-sided pneumothorax and emergent right-sided chest tube was placed and respiratory distress improved after the placement and then on 04/26/2018 the patient had increasing shortness of breath despite nebulizer treatment. He was transferred again back to the ICU. The right chest tube was pulled back and adjusted with improved shortness of breath after the chest tube placement and on 04/30/2018 the patient apparently had increasing shortness of breath which showed a possible right upper lobe pneumothorax despite the chest tube and increasing effusion. Bedside ultrasound showed loculated complicated effusion. The patient was then reintubated and we were consulted to evaluate for right upper lobe loculated effusion. The patient now has [address] with air leak. He does have some subcutaneous emphysema. He remains on pressors to include Beau-Synephrine at 70 mcg per minute. PAST MEDICAL HISTORY: COPD, tobacco abuse, history of back surgery. ALLERGIES: VANCOMYCIN, BEE STINGS. CURRENT TREATMENT: Antibiotic therapy, pressors, sedation. FAMILY HISTORY: He has 1 grown daughter. SOCIAL HISTORY: . Lives with his girlfriend. 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 Longstanding history of tobacco abuse for 50 years. Smokes 1-1/2 packs per day. Drinks socially. REVIEW OF SYSTEMS: Not obtainable since the patient is intubated. PHYSICAL EXAMINATION: VITAL SIGNS: Blood pressure 96/60, temperature T-max 99.7, heart rate of 109, FiO2 was 80% LAD, now down to 50%. GENERAL: The patient is sedated on the ventilator. HEENT: Pupils are approximately 2-3 mm, equal, sluggish. Orally intubated. NECK: Supple. No JVD. CARDIOVASCULAR: Heart sounds S1, S2, slightly tachycardic. No audible rubs or gallops. LUNGS: He has some subcutaneous emphysema on the right. He has 2 chest tubes, a large 28-[place] and a small 10-[place] tube. He has some coarse bilateral breath sounds, some audible wheezing. Both chest tubes have air leaks. ABDOMEN: Soft, nontender. No masses or organomegaly. EXTREMITIES: No cyanosis, clubbing, or edema. NEUROLOGIC: Again, the patient is heavily sedated. LABORATORY DATA: Shows a hemoglobin of 11, hematocrit of 32, white cell count 8.4, platelet count of 153. Sodium 134, potassium 4.0, BUN of 11, creatinine 0.58. Hepatitis panel nonreactive. Toxicology 0.7. MRSA screen non-detected. Micro bronchoscopy culture showed Staph coag positive. Blood cultures have been negative. IMPRESSION: This is a 72-year-old male with longstanding history of chronic obstructive pulmonary disease, tobacco abuse with admission with bilateral pneumonia, respiratory distress, spontaneous pneumothorax requiring reintubation and placement of a second chest tube. The patient then received a bronchoscopy by on 05/01/2018. CT chest shows persistent right pneumothorax, pleural effusion, significant right lower lobe consolidation, possible cavitation abscess. The films have been discussed with Dr. Victoria who reviewed the films. Recommend continued medical therapy at this time. Will continue to monitor closely. No surgical intervention at this time. Evaluate with possible repeat CT scan on Friday. Dictated by Mimi Peters APRN MD JUDITH Centeno/mj , 02:42 PM , 02:53 PM
[2018-05-02] MEDS: Morphine Inj 4 MG/ML Vial IV.PUSH PRN (15:50)
--- NOTE | 2018-05-02 16:56 | P.PNPL ---
Subjective Interval history: 72 YOWM with MRSA Pn, cavitary lesion, COPD, Lt ptx mild sob Intbated Sedated Small chest tube removed large bore chest tube with airleak Physical Exam Vital signs: Vital Signs 05/01/18 18:00 05/01/18 18:15 05/01/18 18:30 Temperature Pulse Rate 110 H 109 H 109 H Respiratory Rate 20 20 19 Blood Pressure 94/61 L 110/62 97/67 L Pulse Oximetry 97 98 97 05/01/18 18:45 05/01/18 19:00 05/01/18 19:15 Temperature Pulse Rate 106 H 101 H 97 H Respiratory Rate 20 20 18 Blood Pressure 98/68 L 105/71 115/76 Pulse Oximetry 96 96 97 05/01/18 19:30 05/01/18 19:45 05/01/18 19:49 Temperature Pulse Rate 98 H 98 H 98 H Respiratory Rate 19 20 18 Blood Pressure 117/78 112/71 Pulse Oximetry 96 97 99 05/01/18 20:00 05/01/18 20:15 05/01/18 20:30 Temperature Pulse Rate 100 H 103 H 104 H Respiratory Rate 20 20 19 Blood Pressure 106/67 105/71 107/74 Pulse Oximetry 95 95 95 05/01/18 20:45 05/01/18 21:00 05/01/18 21:15 Temperature Pulse Rate 108 H 109 H 111 H Respiratory Rate 19 18 18 Blood Pressure 103/74 103/70 101/72 Pulse Oximetry 95 95 95 05/01/18 21:30 05/01/18 21:45 05/01/18 22:00 Temperature Pulse Rate 117 H 120 H 116 H Respiratory Rate 21 22 20 Blood Pressure 97/59 L 86/51 L 91/55 L Pulse Oximetry 90 L 92 L 95 05/01/18 22:15 05/01/18 22:31 05/01/18 22:45 Temperature Pulse Rate 119 H 118 H 117 H Respiratory Rate 21 22 22 Blood Pressure 92/60 L 98/64 L 105/66 Pulse Oximetry 95 95 94 L 05/01/18 23:00 05/01/18 23:15 05/01/18 23:30 Temperature Pulse Rate 117 H 117 H 117 H Respiratory Rate 20 20 21 Blood Pressure 102/63 102/66 107/67 Pulse Oximetry 95 95 95 05/01/18 23:45 05/01/18 23:50 05/02/18 00:00 Temperature Pulse Rate 118 H 118 H 115 H Respiratory Rate 23 21 19 Blood Pressure 97/60 L 101/63 Pulse Oximetry 95 93 L 05/02/18 00:02 05/02/18 00:15 05/02/18 00:30 Temperature Pulse Rate 117 H 117 H Respiratory Rate 21 18 18 Blood Pressure 94/64 L 97/64 L Pulse Oximetry 95 93 L 94 L 05/02/18 00:45 05/02/18 01:00 05/02/18 01:15 Temperature Pulse Rate 116 H 113 H 109 H Respiratory Rate 18 18 18 Blood Pressure 90/62 L 92/66 L 98/63 L Pulse Oximetry 95 96 97 05/02/18 01:30 05/02/18 01:45 05/02/18 02:00 Temperature Pulse Rate 108 H 107 H 104 H Respiratory Rate 18 18 18 Blood Pressure 93/63 L 107/53 L 92/63 L Pulse Oximetry 93 L 95 95 05/02/18 02:15 05/02/18 02:30 05/02/18 02:45 Temperature Pulse Rate 101 H 96 H 93 H Respiratory Rate 18 21 21 Blood Pressure 93/66 L 101/70 113/69 Pulse Oximetry 97 100 100 05/02/18 03:00 05/02/18 03:15 05/02/18 03:21 Temperature Pulse Rate 92 H 91 H 91 H Respiratory Rate 20 19 19 Blood Pressure 113/75 115/75 Pulse Oximetry 100 100 05/02/18 03:30 05/02/18 03:45 05/02/18 04:00 Temperature Pulse Rate 93 H 96 H 96 H Respiratory Rate 18 18 18 Blood Pressure 103/68 108/71 113/76 Pulse Oximetry 98 100 100 05/02/18 04:01 05/02/18 04:15 05/02/18 04:30 Temperature Pulse Rate 100 H 101 H Respiratory Rate 19 18 18 Blood Pressure 111/70 111/73 Pulse Oximetry 100 100 100 05/02/18 04:45 05/02/18 05:00 05/02/18 05:15 Temperature Pulse Rate 102 H 103 H 109 H Respiratory Rate 18 18 18 Blood Pressure 119/74 110/73 94/61 L Pulse Oximetry 100 100 99 05/02/18 05:30 05/02/18 05:45 05/02/18 06:00 Temperature Pulse Rate 111 H 105 H 101 H Respiratory Rate 18 18 18 Blood Pressure 91/55 L 101/69 106/73 Pulse Oximetry 98 99 100 05/02/18 07:00 05/02/18 07:21 05/02/18 07:30 Temperature Pulse Rate 96 H 96 H Respiratory Rate 18 18 18 Blood Pressure 114/71 Pulse Oximetry 97 97 05/02/18 08:00 05/02/18 09:00 05/02/18 10:00 Temperature 100.7 F H Pulse Rate 100 H 97 H 97 H Respiratory Rate 19 19 22 Blood Pressure 96/64 L 101/71 Pulse Oximetry 96 96 97 05/02/18 10:01 05/02/18 10:47 05/02/18 11:00 Temperature Pulse Rate 98 H 103 H 102 H Respiratory Rate 20 20 Blood Pressure 102/69 108/72 93/57 L Pulse Oximetry 98 100 100 05/02/18 11:15 05/02/18 11:28 05/02/18 11:30 Temperature Pulse Rate 104 H 105 H 105 H Respiratory Rate 18 18 18 Blood Pressure 83/57 L 86/60 L Pulse Oximetry 97 97 97 05/02/18 11:45 05/02/18 12:00 05/02/18 13:00 Temperature 99.7 F H Pulse Rate 108 H 109 H 109 H Respiratory Rate 18 18 18 Blood Pressure 94/61 L 96/66 L 100/58 L Pulse Oximetry 96 95 97 05/02/18 14:00 05/02/18 14:22 05/02/18 15:00 Temperature Pulse Rate 108 H 109 H 111 H Respiratory Rate 18 18 18 Blood Pressure 123/63 102/60 Pulse Oximetry 96 98 05/02/18 15:06 Temperature Pulse Rate Respiratory Rate 18 Blood Pressure Pulse Oximetry 98 Intake & Output 05/01/18 05/02/18 05/02/18 18:59 06:59 18:59 Intake Total 1370 / 1370 1130 / 1130 333 / 333 Output Total 930 / 930 1270 / 1270 Balance 440 / 440 -140 / -140 333 / 333 Weight 75.5 kg Intake: IV 1370 / 1370 1030 / 1030 333 / 333 Versed Inj 100 mg In 100 ml @ 2 167 / 167 33 / 33 33 / 33 MG/HR 2 mls/hr IV.CONT TITRATE PRN Rx#:[id number] Neosynephrine Inj 40 MG In D5W 803 / 803 197 / 197 Inj 496 ML @ 40 MCG/MIN 30 mls/ hr IV.CONT TITRATE PRN Rx#: [id number] Diprivan 1000 mg/100 ml Inj 1, 200 / 200 100 / 100 100 / 100 000 mg In 100 ml @ 5 MCG/KG/MIN 2.265 mls/hr IV.CONT TITRATE PRN Rx#:[id number] Teflaro Inj 600 MG In NS Inj 100 / 100 100 / 100 100 / 100 100 ML @ 100 mls/hr IV.SIG Q12H [place] Rx#:[id number] Cubicin Inj 1,000 MG In NS Inj 100 / 100 100 / 100 100 ML @ 200 mls/hr IV.SIG Q24H [place] Rx#:[id number] Zyvox 600 mg Premix 300 ML @ 600 / 600 300 mls/hr IV.SIG Q12H [place] Rx#: [id number] fentaNYL 10 mcg/mL Premix Drip 0 / 0 2,500 mcg In 250 ml @ 50 MCG/HR 5 mls/hr IV.SIG TITRATE PRN Rx #:[id number] Tube Irrigant 100 / 100 Output: Urine Amount (Catheter) 800 / 800 1200 / 1200 Straight 800 / 800 1200 / 1200 Chest Tube Drainage 130 / 130 70 / 70 Right 40 / 40 Right Lower 90 / 90 70 / 70 Other: Date of Last Bowel Movement 04/30/18 04/30/18 04/30/18 # Bowel Movements 0 GENERAL: Elderly Wm, on Vent, sedated SKIN: Warm and dry. HEAD: Normocephalic. EYES: No scleral icterus. No injection or drainage. NECK: Supple, trachea midline. No JVD or lymphadenopathy. CARDIOVASCULAR: Regular rate and rhythm without murmurs, gallops, or rubs. RESPIRATORY: Breath sounds equal bilaterally. No accessory muscle use. Rt chest tube with airleak. GASTROINTESTINAL: Abdomen soft, non-tender, nondistended. MUSCULOSKELETAL: No cyanosis, or edema. BACK: Nontender without obvious deformity. No CVA tenderness. - Urinary Catheter Management Indwelling Urethral Catheter Cath placed during this visit: yes, but has since been removed by the nurse Reason for continuing: Acute urinary retention Insertion date: 04/05/18 Insertion time: 23:00 Removal date: 04/12/18 Removal time: 08:30 Condom Cath placed during this visit: no Reason for continuing: Acute urinary retention Straight Cath placed during this visit: yes Reason for continuing: Acute urinary retention Insertion date: 04/08/18 Insertion time: 18:00 Assessment and Plan - Plan IMPRESSION: 1. MRSA pneumonia. 2. Cavitary pneumonia. 4. Chronic obstructive pulmonary disease. 5. Hypotension. 6. Left pneumothorax, status post chest tube.removal 7. Nicotine use. 8. Right Ptx 9. VDRF PLAN: Cont Abx per ID Ceftaroline, Zyvox, Daptomycin Aerosol nebs Vent Support Chest tube to suction DW , CTS evaluated pt, no intervention planned at this time
--- NOTE | 2018-05-02 17:25 | P.PNID ---
Subjective Remarks: Sp CT placemnet On vent 40% FiO2 repeat CT with suspected R sided empiema (after lung reexpantion) no fever Antibiotics: n zyvox teflaro added 04/16 Lines: Line sites okay Past Medical History: COPD Allergies/Adverse Reactions: Allergies bee venom protein (honey bee) Allergy (Unknown, Verified 04/05/18 21:12) Edema vancomycin Allergy (Verified 04/05/18 23:33) Anaphylaxis Objective Vital Signs 05/01/18 18:00 05/01/18 18:15 05/01/18 18:30 Temperature Pulse Rate 110 H 109 H 109 H Respiratory Rate 20 20 19 Blood Pressure 94/61 L 110/62 97/67 L Pulse Oximetry 97 98 97 05/01/18 18:45 05/01/18 19:00 05/01/18 19:15 Temperature Pulse Rate 106 H 101 H 97 H Respiratory Rate 20 20 18 Blood Pressure 98/68 L 105/71 115/76 Pulse Oximetry 96 96 97 05/01/18 19:30 05/01/18 19:45 05/01/18 19:49 Temperature Pulse Rate 98 H 98 H 98 H Respiratory Rate 19 20 18 Blood Pressure 117/78 112/71 Pulse Oximetry 96 97 99 05/01/18 20:00 05/01/18 20:15 05/01/18 20:30 Temperature Pulse Rate 100 H 103 H 104 H Respiratory Rate 20 20 19 Blood Pressure 106/67 105/71 107/74 Pulse Oximetry 95 95 95 05/01/18 20:45 05/01/18 21:00 05/01/18 21:15 Temperature Pulse Rate 108 H 109 H 111 H Respiratory Rate 19 18 18 Blood Pressure 103/74 103/70 101/72 Pulse Oximetry 95 95 95 05/01/18 21:30 05/01/18 21:45 05/01/18 22:00 Temperature Pulse Rate 117 H 120 H 116 H Respiratory Rate 21 22 20 Blood Pressure 97/59 L 86/51 L 91/55 L Pulse Oximetry 90 L 92 L 95 05/01/18 22:15 05/01/18 22:31 05/01/18 22:45 Temperature Pulse Rate 119 H 118 H 117 H Respiratory Rate 21 22 22 Blood Pressure 92/60 L 98/64 L 105/66 Pulse Oximetry 95 95 94 L 05/01/18 23:00 05/01/18 23:15 05/01/18 23:30 Temperature Pulse Rate 117 H 117 H 117 H Respiratory Rate 20 20 21 Blood Pressure 102/63 102/66 107/67 Pulse Oximetry 95 95 95 05/01/18 23:45 05/01/18 23:50 05/02/18 00:00 Temperature Pulse Rate 118 H 118 H 115 H Respiratory Rate 23 21 19 Blood Pressure 97/60 L 101/63 Pulse Oximetry 95 93 L 05/02/18 00:02 05/02/18 00:15 05/02/18 00:30 Temperature Pulse Rate 117 H 117 H Respiratory Rate 21 18 18 Blood Pressure 94/64 L 97/64 L Pulse Oximetry 95 93 L 94 L 05/02/18 00:45 05/02/18 01:00 05/02/18 01:15 Temperature Pulse Rate 116 H 113 H 109 H Respiratory Rate 18 18 18 Blood Pressure 90/62 L 92/66 L 98/63 L Pulse Oximetry 95 96 97 05/02/18 01:30 05/02/18 01:45 05/02/18 02:00 Temperature Pulse Rate 108 H 107 H 104 H Respiratory Rate 18 18 18 Blood Pressure 93/63 L 107/53 L 92/63 L Pulse Oximetry 93 L 95 95 05/02/18 02:15 05/02/18 02:30 05/02/18 02:45 Temperature Pulse Rate 101 H 96 H 93 H Respiratory Rate 18 21 21 Blood Pressure 93/66 L 101/70 113/69 Pulse Oximetry 97 100 100 05/02/18 03:00 05/02/18 03:15 05/02/18 03:21 Temperature Pulse Rate 92 H 91 H 91 H Respiratory Rate 20 19 19 Blood Pressure 113/75 115/75 Pulse Oximetry 100 100 05/02/18 03:30 05/02/18 03:45 05/02/18 04:00 Temperature Pulse Rate 93 H 96 H 96 H Respiratory Rate 18 18 18 Blood Pressure 103/68 108/71 113/76 Pulse Oximetry 98 100 100 05/02/18 04:01 05/02/18 04:15 05/02/18 04:30 Temperature Pulse Rate 100 H 101 H Respiratory Rate 19 18 18 Blood Pressure 111/70 111/73 Pulse Oximetry 100 100 100 05/02/18 04:45 05/02/18 05:00 05/02/18 05:15 Temperature Pulse Rate 102 H 103 H 109 H Respiratory Rate 18 18 18 Blood Pressure 119/74 110/73 94/61 L Pulse Oximetry 100 100 99 05/02/18 05:30 05/02/18 05:45 05/02/18 06:00 Temperature Pulse Rate 111 H 105 H 101 H Respiratory Rate 18 18 18 Blood Pressure 91/55 L 101/69 106/73 Pulse Oximetry 98 99 100 05/02/18 07:00 05/02/18 07:21 05/02/18 07:30 Temperature Pulse Rate 96 H 96 H Respiratory Rate 18 18 18 Blood Pressure 114/71 Pulse Oximetry 97 97 05/02/18 08:00 05/02/18 09:00 05/02/18 10:00 Temperature 100.7 F H Pulse Rate 100 H 97 H 97 H Respiratory Rate 19 19 22 Blood Pressure 96/64 L 101/71 Pulse Oximetry 96 96 97 05/02/18 10:01 05/02/18 10:47 05/02/18 11:00 Temperature Pulse Rate 98 H 103 H 102 H Respiratory Rate 20 20 Blood Pressure 102/69 108/72 93/57 L Pulse Oximetry 98 100 100 05/02/18 11:15 05/02/18 11:28 05/02/18 11:30 Temperature Pulse Rate 104 H 105 H 105 H Respiratory Rate 18 18 18 Blood Pressure 83/57 L 86/60 L Pulse Oximetry 97 97 97 05/02/18 11:45 05/02/18 12:00 05/02/18 13:00 Temperature 99.7 F H Pulse Rate 108 H 109 H 109 H Respiratory Rate 18 18 18 Blood Pressure 94/61 L 96/66 L 100/58 L Pulse Oximetry 96 95 97 05/02/18 14:00 05/02/18 14:22 05/02/18 15:00 Temperature Pulse Rate 108 H 109 H 111 H Respiratory Rate 18 18 18 Blood Pressure 123/63 102/60 Pulse Oximetry 96 98 05/02/18 15:06 Temperature Pulse Rate Respiratory Rate 18 Blood Pressure Pulse Oximetry 98 Intake & Output 05/01/18 05/02/18 05/02/18 18:59 06:59 18:59 Intake Total 1370 / 1370 1130 / 1130 333 / 333 Output Total 930 / 930 1270 / 1270 Balance 440 / 440 -140 / -140 333 / 333 Weight 75.5 kg Intake: IV 1370 / 1370 1030 / 1030 333 / 333 Versed Inj 100 mg In 100 ml @ 2 167 / 167 33 / 33 33 / 33 MG/HR 2 mls/hr IV.CONT TITRATE PRN Rx#:[id number] Neosynephrine Inj 40 MG In D5W 803 / 803 197 / 197 Inj 496 ML @ 40 MCG/MIN 30 mls/ hr IV.CONT TITRATE PRN Rx#: [id number] Diprivan 1000 mg/100 ml Inj 1, 200 / 200 100 / 100 100 / 100 000 mg In 100 ml @ 5 MCG/KG/MIN 2.265 mls/hr IV.CONT TITRATE PRN Rx#:[id number] Teflaro Inj 600 MG In NS Inj 100 / 100 100 / 100 100 / 100 100 ML @ 100 mls/hr IV.SIG Q12H [place] Rx#:[id number] Cubicin Inj 1,000 MG In NS Inj 100 / 100 100 / 100 100 ML @ 200 mls/hr IV.SIG Q24H [place] Rx#:[id number] Zyvox 600 mg Premix 300 ML @ 600 / 600 300 mls/hr IV.SIG Q12H [place] Rx#: [id number] fentaNYL 10 mcg/mL Premix Drip 0 / 0 2,500 mcg In 250 ml @ 50 MCG/HR 5 mls/hr IV.SIG TITRATE PRN Rx #:[id number] Tube Irrigant 100 / 100 Output: Urine Amount (Catheter) 800 / 800 1200 / 1200 Straight 800 / 800 1200 / 1200 Chest Tube Drainage 130 / 130 70 / 70 Right 40 / 40 Right Lower 90 / 90 70 / 70 Other: Date of Last Bowel Movement 04/30/18 04/30/18 04/30/18 # Bowel Movements 0 05/01/18 11:00 Bronchial - Right Gram Stain - Final 05/01/18 11:00 Bronchial - Right Bronchial Culture - Preliminary Staphylococcus coag positive 05/01/18 11:00 Bronchial Washings - Right Fungal Smear - Final No fungal elements seen 05/01/18 11:00 Bronchial Washings - Right Fungal Culture - Pending 04/28/18 05:35 Sputum - Expectorated Sputum Gram Stain - Final 04/28/18 05:35 Sputum - Expectorated Sputum Sputum Culture - Preliminary S. aureus MRSA 05/01/18 11:00 Bronchial Washings - Right Acid Fast Bacilli Smear - Pending 05/01/18 11:00 Bronchial Washings - Right Mycobacterial Culture - Pending Lab - Hematology Results 05/01/18 05/02/18 16:49 03:55 WBC 8.0 8.4 RBC 3.64 L 3.70 L Hgb 11.2 L 11.1 L Hct 32.8 L 32.7 L MCV 90.1 88.5 MCH 30.6 30.0 MCHC 34.0 33.9 RDW 14.7 14.4 Plt Count 147 L 153 MPV 8.4 7.9 Neut % (Auto) 77.8 H Lymph % (Auto) 8.0 L [place] % (Auto) 10.6 H Eos % (Auto) 3.0 Baso % (Auto) 0.6 Neut # (Auto) 6.2 Lymph # (Auto) 0.6 L [place] # (Auto) 0.8 Eos # (Auto) 0.2 Baso # (Auto) 0.0 WBC Differential . Differential Comment Auto diff final Lab - Chemistry Results 04/30/18 05/02/18 22:01 03:55 Sodium 135 L 134 L Potassium 3.5 4.0 Chloride 94 L 95 L Carbon Dioxide 35.0 H 32.4 H Anion Gap 6 7 BUN 12 11 Creatinine 0.50 L 0.58 L Estimated GFR Greater than 89 Greater than 89 Random Glucose 124 H 117 H Calcium 8.5 8.4 L Magnesium 1.7 Total Bilirubin 0.2 0.4 AST 25 22 ALT 40 34 Alkaline Phosphatase 91 112 Total Protein 6.3 L 6.2 L Albumin 1.8 L 1.6 L Imaging: ITS Impressions Face CT 04/06/18 00:00 CONCLUSION: 1. Small focal area of soft tissue swelling involving the lateral orbital margin on the left. No abscess. Abdomen/Pelvis CT 04/10/18 00:00 CONCLUSION: 1. Findings in the patient's chest discussed on the patient's chest CT. 2. Left renal stone without hydronephrosis. 3. Slight AAA. 4. Possible gallstones within the gallbladder. 5. There is slight fluid within the peritoneal cavity in the pelvis and within left perinephric space and stranding densities involving the Gerota's fascia on the left side. The exact etiology is not certain could be inflammatory, and there is no hydronephrosis. Head MRI 04/12/18 00:00 CONCLUSION: 1. Some chronic changes with mild cortical and central atrophy. Minimal periventricular and scattered deep white matter tract areas of small vessel ischemic demyelination. 2. Some fluid or secretions identified in the dependent portion of the nasopharynx. 3. Otherwise negative. No findings of intracranial mass lesion/abscess. Lumbar Spine MRI 04/12/18 00:00 CONCLUSION: 1. No evidence of epidural abscess. 2. Grade 1 anterolisthesis at L5-S1 with associated discogenic degenerative changes and bilateral pars defects. There is significant bilateral bony neural foraminal stenosis with bilateral neural impingement. 3. Asymmetric ligamentum flavum hypertrophy on the right side at the L4-5 level flattens the dorsal lateral aspect of the thecal sac. Neural foramen remain patent. 4. Suggestion of distended urinary bladder, incompletely imaged in the field-of -view. Thoracic Spine MRI 04/12/18 00:00 CONCLUSION: 1. Small bilateral pleural effusions. 2. Spinal canal is widely patent throughout without cord compromise. No findings of a paravertebral abscess. Abdomen X-Ray 04/12/18 09:42 CONCLUSION: No evidence of ileus. Gallium Scan Nuclear Medicine 04/13/18 00:00 CONCLUSION: 1. There is abnormal uptake in the lungs corresponding to cavitary lesions probably lung abscesses and areas of consolidation seen on the patient's prior chest CT. Chest CT 05/02/18 00:00 CONCLUSION: 1. Overall improving exam with improved aeration of the right hemithorax. Persistent areas of loculated pleural effusion. These demonstrate foci of air within the right lower lobe and are concerning for abscess. Airspace abnormalities within the left hemithorax appears stable to smaller in size from prior exam. Chest X-Ray 05/02/18 06:00 CONCLUSION: Right chest tube. A pneumothorax is not clearly seen on this examination. Increased density in the right hilar region extending into the right upper lobe. Central mass could have this appearance. Suspected consolidation and/or atelectasis at the right base. Mild right pleural effusion. Minimal increased density at the lateral left base. Linear density seen in the left upper lobe which could be from scarring. Physical Exam: GENERAL: NAD On vent SKIN: Warm and dry. No rash HEAD: Atraumatic. Normocephalic. EYES: Pupils equal and round. No scleral icterus. No injection or drainage. ENT: No nasal bleeding or discharge. Mucous membranes pink and moist. NECK: Trachea midline. No JVD. CARDIOVASCULAR: Regular rate and rhythm. RESPIRATORY: No accessory muscle use. R lung with decreased BS and extensive rhonchi to auscultation. R sided CTs x [address] GASTROINTESTINAL: Abdomen soft, non-tender, nondistended. MUSCULOSKELETAL: Extremities without clubbing, no cyanosis no significant edema. 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
[2018-05-03] MEDS: Enoxaparin Inj 40 MG/0.4 ML Syringe SQ SCH (00:15)
[2018-05-03] MEDS: Oral Hygiene Kit OROPHARYNG SCH ×5 (00:15→23:31)
[2018-05-03] MEDS: Phenylephrine Inj 40 MG in Dextrose 5% in Water Inj 496 ML IV.CONT PRN ×2 (00:35)
[2018-05-03] MEDS: Propofol 1000 mg/100 ml Inj 1,000 MG/100 ML BOTTLE IV.CONT PRN ×3 (03:03→17:58)
[2018-05-03] MEDS: Artificial Tears Opth Drops 15 ML Bottle EACH EYE SCH ×3 (05:12→20:44)
--- NOTE | 2018-05-03 06:44 | P.PNCC ---
Subjective Subjective Remarks/Hospital Course: Patient is 72-year-old male with past medical history of COPD, tobacco abuse and hypertension who came to the emergency room for shortness of breath via EMS. On EMS arrival saturation was in the 90s, but patient had significant shortness of breath and dyspnea. Patient received Solu-Medrol 125 mg IV and breathing treatments by EMS and was brought to the emergency department. In the emergency department patient received further breathing treatments and chest x-ray showed patchy infiltrate on bilateral lung fitzgerald. Initially maintaining oxygen saturation with nasal cannula. Initial blood pressure was 85 /65, improved with normal saline boluses. WBC count was 17.1. Patient was deemed septic from pneumonia and patient was ordered to receive vancomycin and Zosyn. While receiving vancomycin patient acutely decompensated became extremely short of breath and developed erythematous maculopapular rash involving face torso armpits and groin region. Emergently intubated and placed on mechanical ventilation by the ED physician. Received IV 50 mg Benadryl. Critical care medicine was requested to admit the patient. I evaluated the patient immediately in the emergency department. Patient is intubated on Versed and fentanyl infusion however he is very asynchronous with the vent triggering ventilator alarms. Severe bilateral expiratory wheezing heard on auscultation. He has extensive skin rash predominantly face forehead torso armpit and groins. Appears like patient had anaphylactic reaction to vancomycin complicated by COPD exacerbation and pneumonia. I have ordered additional Solu-Medrol 100 mg x1 scheduled Benadryl and famotidine, antibiotics with cefepime and Levaquin. Increase Versed infusion, add propofol and use neuromuscular paralysis as needed. Will request pharmacy to add vancomycin to allergy. ED physician Dr. Slater had noticed that patient had some swelling on the left side of his face on arrival, however the skin rash after vancomycin was started was new. Patient remains hypotensive has received 2 L of normal saline in the emergency department and no significant urine output. I have ordered additional 2 L normal saline bolus and maintenance fluid at 84 mL/h. Use Levophed as needed to keep map above 65 Subjective 04/06: Off norepinephrine drip. Currently resting in bed in no acute distress on midazolam and fentanyl drips. Start tube feeding today. 04/07: Remains sedated, intubated on mechanical ventilation. Blood cultures growing MRSA 04/08: remains sedated and intubated. repeat cultures still growing MRSA 2/4 cultures. likely need to repeat BCx either today or tomorrow. agree with narrowing spectrum abx. performed DEEDEE at ID recommendation (need to r/o endocarditis), but no evidence of vegetations. remains hypoxic. off vasopressors today. 04/09: adequate auto-diuresis overnight. off vasopressors. on sedation vacation. hypoxia improving. 04/10 Patient remains intubated and sedated with Fentanyl infusion. Became tachycardic and tachypneic overnight requiring increase sedation. Afebrile. 04/11 Patient is intubated and sedated. Afebrile. 04/12 Patient remains intubated and sedated with Diprivan and Fentanyl infusion, Afebrile. 04/13: Sedated, easily arousable, orally intubated on mechanical ventilation. 04/14 Patient was extubated yesterday. Afebrile. 04/15 Patient is lying in bed in NAD. On 3L oxygen. Awake and alert. 04/16 Patient is on partial rebreather. Afebrile. Awake and alert. 04/17: Left-sided chest tube placed for pneumothorax yesterday. On nasal cannula currently. Awake and alert. Appears comfortable. No air leak noted in Pleur-evac 04/18: Remains on nasal cannula. No air leak noted from left-sided chest tube. 04/19: On 5 L nasal cannula. Chest tube in place, no air leak noted. Resting in bed comfortably, no acute distress. Continues to have productive cough. 04/20: Remains on nasal cannula. Chest tube in place, no air leak noted. Resting in bed comfortably. 04/24: RECONSULT NOTE: called emergently by Hospitalist team. patient with new acute respiratory distress. Chest x-ray demonstrates new large right-sided pneumothorax. I went to evaluate the patient is seen in significant distress. I emergently placed right-sided pigtail chest tube. Significant denney of air with no air leak on chest tube. Respiratory distress improved after chest tube placement. Repeat interval chest x-ray demonstrates good placement of chest tube with resolution of pneumothorax. 04/26/18: RECONSULT NOTE: [facility] reconsulted for rexpansion of right pneumothorax. Patient developed increased SOB today without improvement with nebulizer. STAT CXR Moderate to large right pneumothorax has redeveloped and with a probable tension component. He appears to be in moderate distress tachypneic. Patient was moved to the ICU where I evaluated the patient emergently. The right pigtail chest tube is still in place, minimal air leak. I flushed the chest tube but was difficult to withdraw air. I then pulled back the chest tube by approximately 3 cm. Able to withdraw air more easily and on connection to the Vacutainer again there was significant air leak in all chambers. Patient subjectively felt improvement in shortness of breath after chest tube placement. Stat repeat chest x-ray shows near complete reexpansion of the right knee 04/30/18: [facility] RECONSULT NOTE: Critical care, reconsult for worsening respiratory failure. I evaluate the patient urgently. He is very tachypneic diaphoretic. Chest x-ray today showed possible right upper lobe pneumothorax and increasing right effusion. I did an emergent bedside ultrasound which shows probably loculated complicated right pleural effusion. Patient likely needs more further imaging and procedures and in very labored breathing. Proceeded with endotracheal intubation in place patient on mechanical ventilation. I explained plan of care prior to intubation. He understands that he may need emergency chest tube placement and also may need surgical intervention 05/01/18: Patient remains intubated sedated. Hypotensive on 75 mcg/min of Beau- Synephrine. While sedated. CT chest showed severe right lower lung consolidation large pneumothorax/hydropneumothorax on the right side. Plan for large bore chest tube and central line today. Also cardiothoracic surgery was consulted, and I discussed with Dr. Schaeffer. I will plan for a large bore chest tube to the right side followed by a central line placement. 05/02/18: Patient remains intubated heavily sedated for vent synchrony. Right chest tube with large air leak in all chambers. There is possibility of bronchopleural fistula. Chest x-ray shows improved air entry right lung. Discussed with cardiothoracic surgery Dr. Ontiveros today. Will repeat CT scan to see if lung is reexpanding. May need decortication procedure Objective Vital Signs / I&O: Vital Signs 05/02/18 07:00 05/02/18 07:21 05/02/18 07:30 Temperature Pulse Rate 96 H 96 H Respiratory Rate 18 18 18 Blood Pressure 114/71 Pulse Oximetry 97 97 05/02/18 08:00 05/02/18 09:00 05/02/18 10:00 Temperature 100.7 F H Pulse Rate 100 H 97 H 97 H Respiratory Rate 19 19 22 Blood Pressure 96/64 L 101/71 Pulse Oximetry 96 96 97 05/02/18 10:01 05/02/18 10:47 05/02/18 11:00 Temperature Pulse Rate 98 H 103 H 102 H Respiratory Rate 20 20 Blood Pressure 102/69 108/72 93/57 L Pulse Oximetry 98 100 100 05/02/18 11:15 05/02/18 11:28 05/02/18 11:30 Temperature Pulse Rate 104 H 105 H 105 H Respiratory Rate 18 18 18 Blood Pressure 83/57 L 86/60 L Pulse Oximetry 97 97 97 05/02/18 11:45 05/02/18 12:00 05/02/18 13:00 Temperature 99.7 F H Pulse Rate 108 H 109 H 109 H Respiratory Rate 18 18 18 Blood Pressure 94/61 L 96/66 L 100/58 L Pulse Oximetry 96 95 97 05/02/18 14:00 05/02/18 14:22 05/02/18 15:00 Temperature Pulse Rate 108 H 109 H 111 H Respiratory Rate 18 18 18 Blood Pressure 123/63 102/60 Pulse Oximetry 96 98 05/02/18 15:06 05/02/18 15:15 05/02/18 15:30 Temperature Pulse Rate 114 H 117 H Respiratory Rate 18 18 19 Blood Pressure 93/63 L 100/61 Pulse Oximetry 98 98 99 05/02/18 15:45 05/02/18 16:00 05/02/18 16:15 Temperature 100.3 F H Pulse Rate 119 H 119 H 121 H Respiratory Rate 18 20 19 Blood Pressure 98/61 L 82/60 L 87/60 L Pulse Oximetry 98 98 95 05/02/18 16:30 05/02/18 16:45 05/02/18 17:00 Temperature Pulse Rate 120 H 120 H 121 H Respiratory Rate 20 19 20 Blood Pressure 88/58 L 84/56 L 101/56 L Pulse Oximetry 95 95 95 05/02/18 17:50 05/02/18 17:51 05/02/18 18:00 Temperature Pulse Rate 119 H 108 H 117 H Respiratory Rate 24 23 Blood Pressure 89/53 L 91/54 L Pulse Oximetry 95 94 L 05/02/18 18:15 05/02/18 18:30 05/02/18 18:32 Temperature Pulse Rate 113 H 114 H 115 H Respiratory Rate 18 18 18 Blood Pressure 86/53 L 85/54 L 86/52 L Pulse Oximetry 95 95 95 05/02/18 19:00 05/02/18 19:47 05/02/18 20:00 Temperature 99.6 F Pulse Rate 114 H 113 H 107 H Respiratory Rate 20 18 18 Blood Pressure 98/63 L 104/72 Pulse Oximetry 92 L 97 99 05/02/18 21:00 05/02/18 22:00 05/02/18 23:00 Temperature Pulse Rate 104 H 87 85 Respiratory Rate 18 18 20 Blood Pressure 96/66 L 91/61 L 112/65 Pulse Oximetry 100 97 100 05/02/18 23:57 05/03/18 00:00 05/03/18 01:00 Temperature Pulse Rate 89 88 90 Respiratory Rate 21 21 21 Blood Pressure 109/66 112/67 Pulse Oximetry 98 100 97 05/03/18 02:00 05/03/18 03:00 05/03/18 03:40 Temperature Pulse Rate 94 H 96 H 96 H Respiratory Rate 20 19 19 Blood Pressure 94/58 L 91/53 L Pulse Oximetry 95 96 05/03/18 04:00 05/03/18 04:20 05/03/18 05:00 Temperature Pulse Rate 100 H 102 H Respiratory Rate 20 20 19 Blood Pressure 89/53 L 93/59 L Pulse Oximetry 96 100 96 05/03/18 06:00 Temperature 98.6 F Pulse Rate 101 H Respiratory Rate 18 Blood Pressure 88/57 L Pulse Oximetry 99 Intake & Output 05/02/18 05/02/18 05/03/18 06:59 18:59 06:59 Intake Total 1130 / 1130 1308 / 1308 585 / 585 Output Total 1270 / 1270 1170 / 1170 1030 / 1030 Balance -140 / -140 138 / 138 -445 / -445 Weight 75.5 kg 74.5 kg Intake: IV 1030 / 1030 1248 / 1248 585 / 585 Versed Inj 100 mg In 100 ml @ 2 33 / 33 98 / 98 35 / 35 MG/HR 2 mls/hr IV.CONT TITRATE PRN Rx#:[id number] Neosynephrine Inj 40 MG In D5W 197 / 197 450 / 450 50 / 50 Inj 496 ML @ 40 MCG/MIN 30 mls/ hr IV.CONT TITRATE PRN Rx#: [id number] Diprivan 1000 mg/100 ml Inj 1, 100 / 100 200 / 200 100 / 100 000 mg In 100 ml @ 5 MCG/KG/MIN 2.265 mls/hr IV.CONT TITRATE PRN Rx#:[id number] Teflaro Inj 600 MG In NS Inj 100 / 100 100 / 100 100 / 100 100 ML @ 100 mls/hr IV.SIG Q12H [place] Rx#:[id number] Cubicin Inj 1,000 MG In NS Inj 100 / 100 100 ML @ 200 mls/hr IV.SIG Q24H [place] Rx#:[id number] Zyvox 600 mg Premix 300 ML @ 600 / 600 300 / 300 300 / 300 300 mls/hr IV.SIG Q12H [place] Rx#: [id number] Tube Irrigant 100 / 100 60 / 60 Output: Urine Amount (Catheter) 1200 / 1200 1050 / 1050 900 / 900 Straight 1200 / 1200 1050 / 1050 900 / 900 Chest Tube Drainage 70 / 70 120 / 120 130 / 130 Right Lower 70 / 70 120 / 120 130 / 130 Other: Date of Last Bowel Movement 04/30/18 04/30/18 04/30/18 # Bowel Movements 0 Result Diagrams: 05/02/18 03:55 05/02/18 03:55 Objective Remarks: GENERAL: Patient is lying in bed in critically ill intubated heavily sedated SKIN: Warm and dry. HEAD: Atraumatic. Normocephalic. EYES: Pupils equal and round. No scleral icterus. ENT: No nasal bleeding or discharge. Mucous membranes moist. Orotracheally intubated NECK: Trachea midline. No JVD. CARDIOVASCULAR: Tachycardic rate and rhythm. sinus. Beau-Synephrine at 75 mcg/ min RESPIRATORY: Intubated sedated. Coarse rhonchi and wheezes right lower lung and rhonchi in the left lung. Air entry diminished with right upper lung. Hyperresonant to percussion over the right upper chest wall. Coarse crackles right base. Subcutaneous emphysema present on the right chest wall. 28 Ukrainian chest tube to the right with 4+ airleak GASTROINTESTINAL: Abdomen soft, non-tender, nondistended. no guarding. MUSCULOSKELETAL: Extremities without clubbing, cyanosis, or edema. No obvious deformities. NEUROLOGICAL: Intubated heavily sedated for vent synchrony with propofol and Versed. Moves all extremities withdraws to pain. No focal deficits Assessment and Plan - Problem List (1) Anaphylaxis Code(s): T78.2XXA - Anaphylactic shock, unspecified, initial encounter Status : Acute (2) COPD with acute exacerbation Code(s): J44.1 - Chronic obstructive pulmonary disease with (acute) exacerbation Status: Acute (3) Bilateral pneumonia Code(s): J18.9 - Pneumonia, unspecified organism Status: Acute (4) Allergic reaction caused by a drug Code(s): T78.40XA - Allergy, unspecified, initial encounter Status: Acute (5) Acute respiratory failure Code(s): J96.00 - Acute respiratory failure, unspecified whether with hypoxia or hypercapnia Status: Acute (6) Severe sepsis Code(s): A41.9 - Sepsis, unspecified organism; R65.20 - Severe sepsis without septic shock Status: Acute (7) Leukocytosis Code(s): D72.829 - Elevated white blood cell count, unspecified Status: Acute (8) Hypotension Code(s): I95.9 - Hypotension, unspecified Status: Acute (9) Acute kidney injury Code(s): N17.9 - Acute kidney failure, unspecified Status: Acute (10) Hyponatremia Code(s): E87.1 - Hypo-osmolality and hyponatremia Status: Acute (11) Hyperglycemia Code(s): R73.9 - Hyperglycemia, unspecified Status: Acute (12) History of hypertension Code(s): Z86.79 - Personal history of other diseases of the circulatory system Status: Chronic (13) Tobacco abuse Code(s): Z72.0 - Tobacco use Status: Chronic (14) History of COPD Code(s): Z87.09 - Personal history of other diseases of the respiratory system Status: Chronic - Assessment and Plan Plan: Assessment: 72-year-old male with known necrotizing MRSA pneumonia and hypoxemia requiring supplemental oxygenation now with acute respiratory distress secondary to acute right pneumothorax. Status post emergent chest tube decompression. Previously was transferred to [facility] service now reconsulted 04/30/2018 now with what appears to be persistent right pneumothorax and loculated complicated right pleural effusion most likely parapneumonic. Intubated large bore chest tube placed 05/01/2018. Remains very critical with persistent air leak septic shock from necrotizing MRSA pneumonia. Prognosis appears guarded Active problems: Acute hypoxemic respiratory failure Persistent large right-sided pneumothorax Right-sided complicated pleural effusion MRSA pneumonia with probable lung abscess Severe necrotizing pneumonia Probable septic emboli to the left lung Septic shock COPD with exacerbation MRSA bacteremia Severe sepsis MRSA pneumonia Plan: NEURO: -Propofol and versed for sedation and ventilator synchrony -Daily sedation vacation once more stable RESP: -PRVC/AC, Ventilator bundle -DuoNeb every 4 hours scheduled and as needed -CT of the chest done 04/30/2018 shows large persistent right pneumothorax pleural effusion and significant right lower lung consolidation with probable cavitation/abscess -s/p 28 Ukrainian chest tube to the right side, now with reexpansion of the lung but continued significant air leak -Dr. Carey did bronchoscopy yesterday large amount of mucus plugging removed from right upper lobe -Repeat CT chest today to evaluate for lung reexpansion. Discussed with Dr. Ontiveros -Infectious disease and Pulmonology is following -Continue antibiotics per ID CV: -Normal saline IV fluids 100 ml per hour -Beau-Synephrine if needed to keep map above 65 GI: -N.p.o., IV famotidine -Start tube feeds today if no further procedures : -Monitor renal function closely. Shine catheter if patient continues to retain. ID: -Antibiotics per ID. Currently on Teflaro, Zyvox and daptomycin -Further cultures per ID -[id number] cultures -May need decortication procedure cardiothoracic surgery following HEME: -Monitor CBC, coags ENDO: -Electrolyte replacement per protocol -Sliding scale insulin if needed PROPH: -Bilateral lower extremity SCDs. Lovenox/famotidine LINES: -Utilize peripheral IVs, right subclavian central line placed to 119 CC time 45 min excluding procedures This patient remains critically ill with one or more organ systems which are or may become a threat to life. I have spent in excess of 45 minutes discontinuously in the care and management of this patient. This time is exclusive of procedures, and includes, but is not limited to, evaluation of the patient, review of the medical record, discussions with family, consultants, nursing staff, or respiratory therapy, and documentation in the medical record. STAT CT showed Right-sided pigtail catheter in the right mid chest with a large right-sided pneumothorax remaining. There is extensive consolidation throughout the only aerated portions of the right lung with debris in the right bronchus and bronchus intermedius. There is multiloculated fluid collections in the right lower lobe and the right inferior lateral costophrenic angle could be multiloculated infection. After the CT was reviewed I reevaluate the positioning of the chest tube and it was noted that the chest tube may be obstructed. I flushed with normal saline and reopened the chest tube with now 1-2+ airleak. No need of additional chest tube at this time as the patient has no features of tension. Cardiothoracic surgery consulted for probable lung abscess and persistent pneumothorax I have updated patient's daughter on the phone 05/01/2018 (1) Anaphylaxis Qualifiers: Encounter type: initial encounter Qualified Code(s): T78.2XXA - Anaphylactic shock, unspecified, initial encounter (3) Bilateral pneumonia Qualifiers: Pneumonia type: due to unspecified organism Lung location: unspecified part of lung Qualified Code(s): J18.9 - Pneumonia, unspecified organism (4) Allergic reaction caused by a drug Qualifiers: Encounter type: initial encounter Qualified Code(s): T78.40XA - Allergy, unspecified, initial encounter (5) Acute respiratory failure Qualifiers: Respiratory failure complication: unspecified whether with hypoxia or hypercapnia Qualified Code(s): J96.00 - Acute respiratory failure, unspecified whether with hypoxia or hypercapnia (7) Leukocytosis Qualifiers: Leukocytosis type: unspecified Qualified Code(s): D72.829 - Elevated white blood cell count, unspecified (8) Hypotension Qualifiers: Hypotension type: unspecified hypotension type Qualified Code(s): I95.9 - Hypotension, unspecified
[2018-05-03] MEDS: Chlorhexidine 0.12% Oral Kit 15 ML UDC OROPHARYNG SCH ×2 (08:03→20:29)
[2018-05-03] MEDS: guaiFENesin 600 MG ER Tablet PO SCH ×2 (08:04→20:44)
[2018-05-03] MEDS: Metoprolol Tartrate 100 MG Tablet PO SCH ×2 (08:04→20:44)
[2018-05-03] MEDS: Sodium Chloride 0.9% 2 ML Flush BID IV.FLUSH SCH ×2 (08:04→20:43)
[2018-05-03] MEDS: Famotidine PF Inj 20 MG/2 ML Vial IV.PUSH SCH ×2 (08:17→20:43)
[2018-05-03] MEDS: Docusate Sodium 100 MG Capsule PO SCH ×2 (08:17→20:44)
[2018-05-03] MEDS: Sennosides Liq 8.8 MG/5 ML UDC PO SCH (08:17)
--- NOTE | 2018-05-03 10:04 | XR ---
EXAM DATE: 05/03/2018 9:41 AM EST AGE/SEX: 72 years / Male INDICATIONS: Shortness of breath. CLINICAL DATA: This is the patient's subsequent encounter. Patient reports that signs and symptoms h ave been present for 3 weeks and indicates a pain score of Nonresponsive. MEDICAL/SURGICAL HISTORY: . Chronic obstructive pulmonary disease. Hypertension. MRSA. Chest tu be, right. . COMPARISON: [facility], CHEST 1V SINGLE AP, 05/02/2018. . FINDINGS: AP portable supine view of the chest demonstrates an endotracheal tube projecting over the trachea, a ppropriate in position. NG tube extending beyond the imaged portion of the film. Right-sided central line with the tip overlying the distal SVC. Right-sided chest tube with a moderate sized right apical pneumothorax. The size of the pneumothorax measures 5.4 cm from the edge of the pneumothorax to the lung apex. This is increased in size from pr ior exam. There is moderate sized right-sided pleural fluid with atelectasis within the imaged right hemithorax. Subcutaneous air identified within the right chest wall decreased from prior exam. Left h emithorax is clear. CONCLUSION: Lines and tubes appear appropriate in position. There is increased size of a right apical pneumothora x and increased pleural fluid. Resolving right-sided subcutaneous emphysema. Electronically signed by: Arielle Short MD Board Certified Radiologist 05/03/2018 10:03 AM EST
--- NOTE | 2018-05-03 11:15 | P.PNCC ---
Subjective Subjective Remarks/Hospital Course: Patient is 72-year-old male with past medical history of COPD, tobacco abuse and hypertension who came to the emergency room for shortness of breath via EMS. On EMS arrival saturation was in the 90s, but patient had significant shortness of breath and dyspnea. Patient received Solu-Medrol 125 mg IV and breathing treatments by EMS and was brought to the emergency department. In the emergency department patient received further breathing treatments and chest x-ray showed patchy infiltrate on bilateral lung fitzgerald. Initially maintaining oxygen saturation with nasal cannula. Initial blood pressure was 85 /65, improved with normal saline boluses. WBC count was 17.1. Patient was deemed septic from pneumonia and patient was ordered to receive vancomycin and Zosyn. While receiving vancomycin patient acutely decompensated became extremely short of breath and developed erythematous maculopapular rash involving face torso armpits and groin region. Emergently intubated and placed on mechanical ventilation by the ED physician. Received IV 50 mg Benadryl. Critical care medicine was requested to admit the patient. I evaluated the patient immediately in the emergency department. Patient is intubated on Versed and fentanyl infusion however he is very asynchronous with the vent triggering ventilator alarms. Severe bilateral expiratory wheezing heard on auscultation. He has extensive skin rash predominantly face forehead torso armpit and groins. Appears like patient had anaphylactic reaction to vancomycin complicated by COPD exacerbation and pneumonia. I have ordered additional Solu-Medrol 100 mg x1 scheduled Benadryl and famotidine, antibiotics with cefepime and Levaquin. Increase Versed infusion, add propofol and use neuromuscular paralysis as needed. Will request pharmacy to add vancomycin to allergy. ED physician Dr. Slater had noticed that patient had some swelling on the left side of his face on arrival, however the skin rash after vancomycin was started was new. Patient remains hypotensive has received 2 L of normal saline in the emergency department and no significant urine output. I have ordered additional 2 L normal saline bolus and maintenance fluid at 84 mL/h. Use Levophed as needed to keep map above 65 Subjective 04/06: Off norepinephrine drip. Currently resting in bed in no acute distress on midazolam and fentanyl drips. Start tube feeding today. 04/07: Remains sedated, intubated on mechanical ventilation. Blood cultures growing MRSA 04/08: remains sedated and intubated. repeat cultures still growing MRSA 2/4 cultures. likely need to repeat BCx either today or tomorrow. agree with narrowing spectrum abx. performed DEEDEE at ID recommendation (need to r/o endocarditis), but no evidence of vegetations. remains hypoxic. off vasopressors today. 04/09: adequate auto-diuresis overnight. off vasopressors. on sedation vacation. hypoxia improving. 04/10 Patient remains intubated and sedated with Fentanyl infusion. Became tachycardic and tachypneic overnight requiring increase sedation. Afebrile. 04/11 Patient is intubated and sedated. Afebrile. 04/12 Patient remains intubated and sedated with Diprivan and Fentanyl infusion, Afebrile. 04/13: Sedated, easily arousable, orally intubated on mechanical ventilation. 04/14 Patient was extubated yesterday. Afebrile. 04/15 Patient is lying in bed in NAD. On 3L oxygen. Awake and alert. 04/16 Patient is on partial rebreather. Afebrile. Awake and alert. 04/17: Left-sided chest tube placed for pneumothorax yesterday. On nasal cannula currently. Awake and alert. Appears comfortable. No air leak noted in Pleur-evac 04/18: Remains on nasal cannula. No air leak noted from left-sided chest tube. 04/19: On 5 L nasal cannula. Chest tube in place, no air leak noted. Resting in bed comfortably, no acute distress. Continues to have productive cough. 04/20: Remains on nasal cannula. Chest tube in place, no air leak noted. Resting in bed comfortably. 04/24: RECONSULT NOTE: called emergently by Hospitalist team. patient with new acute respiratory distress. Chest x-ray demonstrates new large right-sided pneumothorax. I went to evaluate the patient is seen in significant distress. I emergently placed right-sided pigtail chest tube. Significant denney of air with no air leak on chest tube. Respiratory distress improved after chest tube placement. Repeat interval chest x-ray demonstrates good placement of chest tube with resolution of pneumothorax. 04/26/18: RECONSULT NOTE: [facility] reconsulted for rexpansion of right pneumothorax. Patient developed increased SOB today without improvement with nebulizer. STAT CXR Moderate to large right pneumothorax has redeveloped and with a probable tension component. He appears to be in moderate distress tachypneic. Patient was moved to the ICU where I evaluated the patient emergently. The right pigtail chest tube is still in place, minimal air leak. I flushed the chest tube but was difficult to withdraw air. I then pulled back the chest tube by approximately 3 cm. Able to withdraw air more easily and on connection to the Vacutainer again there was significant air leak in all chambers. Patient subjectively felt improvement in shortness of breath after chest tube placement. Stat repeat chest x-ray shows near complete reexpansion of the right knee 04/30/18: [facility] RECONSULT NOTE: Critical care, reconsult for worsening respiratory failure. I evaluate the patient urgently. He is very tachypneic diaphoretic. Chest x-ray today showed possible right upper lobe pneumothorax and increasing right effusion. I did an emergent bedside ultrasound which shows probably loculated complicated right pleural effusion. Patient likely needs more further imaging and procedures and in very labored breathing. Proceeded with endotracheal intubation in place patient on mechanical ventilation. I explained plan of care prior to intubation. He understands that he may need emergency chest tube placement and also may need surgical intervention 05/01/18: Patient remains intubated sedated. Hypotensive on 75 mcg/min of Beau- Synephrine. While sedated. CT chest showed severe right lower lung consolidation large pneumothorax/hydropneumothorax on the right side. Plan for large bore chest tube and central line today. Also cardiothoracic surgery was consulted, and I discussed with Dr. Schaeffer. I will plan for a large bore chest tube to the right side followed by a central line placement. 05/02/18: Patient remains intubated heavily sedated for vent synchrony. Right chest tube with large air leak in all chambers. There is possibility of bronchopleural fistula. Chest x-ray shows improved air entry right lung. Discussed with cardiothoracic surgery Dr. Ontiveros today. Will repeat CT scan to see if lung is reexpanding. May need decortication procedure 05/03/18: Patient remains intubated sedated persistent large air leak. CT reviewed with cardiothoracic surgery Dr. Ontiveros. Will discuss with Dr. Schaeffer in a.m. Probably will benefit from decortication due to the hydropneumothorax and persistent pleural effusions which probably are empyema. Otherwise patient remains critically ill clinically same. Bronc cultures growing staph aureus still Objective Vital Signs / I&O: Vital Signs 05/02/18 11:15 05/02/18 11:28 05/02/18 11:30 Temperature Pulse Rate 104 H 105 H 105 H Respiratory Rate 18 18 18 Blood Pressure 83/57 L 86/60 L Pulse Oximetry 97 97 97 05/02/18 11:45 05/02/18 12:00 05/02/18 13:00 Temperature 99.7 F H Pulse Rate 108 H 109 H 109 H Respiratory Rate 18 18 18 Blood Pressure 94/61 L 96/66 L 100/58 L Pulse Oximetry 96 95 97 05/02/18 14:00 05/02/18 14:22 05/02/18 15:00 Temperature Pulse Rate 108 H 109 H 111 H Respiratory Rate 18 18 18 Blood Pressure 123/63 102/60 Pulse Oximetry 96 98 05/02/18 15:06 05/02/18 15:15 05/02/18 15:30 Temperature Pulse Rate 114 H 117 H Respiratory Rate 18 18 19 Blood Pressure 93/63 L 100/61 Pulse Oximetry 98 98 99 05/02/18 15:45 05/02/18 16:00 05/02/18 16:15 Temperature 100.3 F H Pulse Rate 119 H 119 H 121 H Respiratory Rate 18 20 19 Blood Pressure 98/61 L 82/60 L 87/60 L Pulse Oximetry 98 98 95 05/02/18 16:30 05/02/18 16:45 05/02/18 17:00 Temperature Pulse Rate 120 H 120 H 121 H Respiratory Rate 20 19 20 Blood Pressure 88/58 L 84/56 L 101/56 L Pulse Oximetry 95 95 95 05/02/18 17:50 05/02/18 17:51 05/02/18 18:00 Temperature Pulse Rate 119 H 108 H 117 H Respiratory Rate 24 23 Blood Pressure 89/53 L 91/54 L Pulse Oximetry 95 94 L 05/02/18 18:15 05/02/18 18:30 05/02/18 18:32 Temperature Pulse Rate 113 H 114 H 115 H Respiratory Rate 18 18 18 Blood Pressure 86/53 L 85/54 L 86/52 L Pulse Oximetry 95 95 95 05/02/18 19:00 05/02/18 19:47 05/02/18 20:00 Temperature 99.6 F Pulse Rate 114 H 113 H 107 H Respiratory Rate 20 18 18 Blood Pressure 98/63 L 104/72 Pulse Oximetry 92 L 97 99 05/02/18 21:00 05/02/18 22:00 05/02/18 23:00 Temperature Pulse Rate 104 H 87 85 Respiratory Rate 18 18 20 Blood Pressure 96/66 L 91/61 L 112/65 Pulse Oximetry 100 97 100 05/02/18 23:57 05/03/18 00:00 05/03/18 01:00 Temperature Pulse Rate 89 88 90 Respiratory Rate 21 21 21 Blood Pressure 109/66 112/67 Pulse Oximetry 98 100 97 05/03/18 02:00 05/03/18 03:00 05/03/18 03:40 Temperature Pulse Rate 94 H 96 H 96 H Respiratory Rate 20 19 19 Blood Pressure 94/58 L 91/53 L Pulse Oximetry 95 96 05/03/18 04:00 05/03/18 04:20 05/03/18 05:00 Temperature Pulse Rate 100 H 102 H Respiratory Rate 20 20 19 Blood Pressure 89/53 L 93/59 L Pulse Oximetry 96 100 96 05/03/18 06:00 05/03/18 07:23 Temperature 98.6 F Pulse Rate 101 H 103 H Respiratory Rate 18 18 Blood Pressure 88/57 L Pulse Oximetry 99 99 Intake & Output 05/02/18 05/03/18 05/03/18 18:59 06:59 18:59 Intake Total 1308 / 1308 585 / 585 100 / 100 Output Total 1170 / 1170 1030 / 1030 Balance 138 / 138 -445 / -445 100 / 100 Weight 74.5 kg Intake: IV 1248 / 1248 585 / 585 100 / 100 Versed Inj 100 mg In 100 ml @ 2 98 / 98 35 / 35 MG/HR 2 mls/hr IV.CONT TITRATE PRN Rx#:[id number] Neosynephrine Inj 40 MG In D5W 450 / 450 50 / 50 Inj 496 ML @ 40 MCG/MIN 30 mls/ hr IV.CONT TITRATE PRN Rx#: [id number] Diprivan 1000 mg/100 ml Inj 1, 200 / 200 100 / 100 000 mg In 100 ml @ 5 MCG/KG/MIN 2.265 mls/hr IV.CONT TITRATE PRN Rx#:[id number] Teflaro Inj 600 MG In NS Inj 100 / 100 100 / 100 100 / 100 100 ML @ 100 mls/hr IV.SIG Q12H [facility] Rx#:[id number] Cubicin Inj 1,000 MG In NS Inj 100 / 100 100 ML @ 200 mls/hr IV.SIG Q24H [facility] Rx#:[id number] Zyvox 600 mg Premix 300 ML @ 300 / 300 300 / 300 300 mls/hr IV.SIG Q12H [facility] Rx#: [id number] Tube Irrigant 60 / 60 Output: Urine Amount (Catheter) 1050 / 1050 900 / 900 Straight 1050 / 1050 900 / 900 Chest Tube Drainage 120 / 120 130 / 130 Right Lower 120 / 120 130 / 130 Other: Date of Last Bowel Movement 04/30/18 04/30/18 Result Diagrams: 05/02/18 03:55 05/02/18 03:55 Objective Remarks: GENERAL: Patient is lying in bed in critically ill intubated heavily sedated SKIN: Warm and dry. HEAD: Atraumatic. Normocephalic. EYES: Pupils equal and round. No scleral icterus. ENT: No nasal bleeding or discharge. Mucous membranes moist. Orotracheally intubated NECK: Trachea midline. No JVD. CARDIOVASCULAR: S1-S2 normal no murmur RESPIRATORY: Intubated sedated. Coarse rhonchi and wheezes right lower lung and rhonchi in the left lung. Air entry diminished with right upper lung. Subcutaneous emphysema present on the right chest wall is improved. 28 Japanese chest tube to the right with 3-4+ airleak GASTROINTESTINAL: Abdomen soft, non-tender, nondistended. no guarding. MUSCULOSKELETAL: Extremities without clubbing, cyanosis, or edema. No obvious deformities. NEUROLOGICAL: Intubated heavily sedated for vent synchrony with propofol and Versed. Moves all extremities withdraws to pain. No focal deficits Assessment and Plan - Problem List (1) Anaphylaxis Code(s): T78.2XXA - Anaphylactic shock, unspecified, initial encounter Status : Acute (2) COPD with acute exacerbation Code(s): J44.1 - Chronic obstructive pulmonary disease with (acute) exacerbation Status: Acute (3) Bilateral pneumonia Code(s): J18.9 - Pneumonia, unspecified organism Status: Acute (4) Allergic reaction caused by a drug Code(s): T78.40XA - Allergy, unspecified, initial encounter Status: Acute (5) Acute respiratory failure Code(s): J96.00 - Acute respiratory failure, unspecified whether with hypoxia or hypercapnia Status: Acute (6) Severe sepsis Code(s): A41.9 - Sepsis, unspecified organism; R65.20 - Severe sepsis without septic shock Status: Acute (7) Leukocytosis Code(s): D72.829 - Elevated white blood cell count, unspecified Status: Acute (8) Hypotension Code(s): I95.9 - Hypotension, unspecified Status: Acute (9) Acute kidney injury Code(s): N17.9 - Acute kidney failure, unspecified Status: Acute (10) Hyponatremia Code(s): E87.1 - Hypo-osmolality and hyponatremia Status: Acute (11) Hyperglycemia Code(s): R73.9 - Hyperglycemia, unspecified Status: Acute (12) History of hypertension Code(s): Z86.79 - Personal history of other diseases of the circulatory system Status: Chronic (13) Tobacco abuse Code(s): Z72.0 - Tobacco use Status: Chronic (14) History of COPD Code(s): Z87.09 - Personal history of other diseases of the respiratory system Status: Chronic - Assessment and Plan Plan: Assessment: 72-year-old male with known necrotizing MRSA pneumonia and hypoxemia requiring supplemental oxygenation now with acute respiratory distress secondary to acute right pneumothorax. Status post emergent chest tube decompression. Previously was transferred to [facility] service now reconsulted 04/30/2018 now with what appears to be persistent right pneumothorax and loculated complicated right pleural effusion most likely parapneumonic. Intubated large bore chest tube placed 05/01/2018. Remains very critical with persistent air leak septic shock from necrotizing MRSA pneumonia. Prognosis appears guarded Active problems: Acute hypoxemic respiratory failure Persistent right-sided pneumothorax Right-sided complicated pleural effusion, probable empyema MRSA pneumonia with probable lung abscess Severe necrotizing pneumonia Probable septic emboli to the left lung Septic shock COPD with exacerbation MRSA bacteremia MRSA pneumonia Plan: NEURO: -Propofol and versed for sedation and ventilator synchrony -Daily sedation vacation once more stable RESP: -PRVC/AC, Ventilator bundle -DuoNeb every 4 hours scheduled and as needed -CT of the chest 04/30/2018 shows large persistent right pneumothorax pl effusion and significant right lower lung consolidation with probable cavitation /abscess -s/p 28 Japanese chest tube to the right side, now with reexpansion of the lung but continued significant air leak -Dr. Carey did bronchoscopy yesterday large amount of mucus plugging removed from right upper lobe -Repeat CT chest shows good reexpansion of the right lung. Persistent hydropneumothorax apically and right lower lung region. Loculated hydropneumothorax may be empyema -Infectious disease and Pulmonology is following. CT surgery following -Patient may benefit from decortication -Continue antibiotics per ID CV: -Normal saline IV fluids 100 ml per hour -Beau-Synephrine if needed to keep map above 65 GI: -N.p.o., IV famotidine : -Monitor renal function closely. Shine catheter if patient continues to retain. ID: -Antibiotics per ID. Currently on Teflaro, Zyvox and daptomycin -Further cultures per ID -[id number] cultures -May need decortication procedure cardiothoracic surgery following HEME: -Monitor CBC, coags ENDO: -Electrolyte replacement per protocol -Sliding scale insulin if needed PROPH: -Bilateral lower extremity SCDs. Lovenox/famotidine. Hold Lovenox to 2018 until surgical plans are defined LINES: -Utilize peripheral IVs, right subclavian central line placed 05/01/18 CC time 35 min excluding procedures This patient remains critically ill with one or more organ systems which are or may become a threat to life. I have spent in excess of 45 minutes discontinuously in the care and management of this patient. This time is exclusive of procedures, and includes, but is not limited to, evaluation of the patient, review of the medical record, discussions with family, consultants, nursing staff, or respiratory therapy, and documentation in the medical record. STAT CT showed Right-sided pigtail catheter in the right mid chest with a large right-sided pneumothorax remaining. There is extensive consolidation throughout the only aerated portions of the right lung with debris in the right bronchus and bronchus intermedius. There is multiloculated fluid collections in the right lower lobe and the right inferior lateral costophrenic angle could be multiloculated infection. After the CT was reviewed I reevaluate the positioning of the chest tube and it was noted that the chest tube may be obstructed. I flushed with normal saline and reopened the chest tube with now 1-2+ airleak. No need of additional chest tube at this time as the patient has no features of tension. Cardiothoracic surgery consulted for probable lung abscess and persistent pneumothorax I have updated patient's daughter on the phone 05/01/2018 (1) Anaphylaxis Qualifiers: Encounter type: initial encounter Qualified Code(s): T78.2XXA - Anaphylactic shock, unspecified, initial encounter (3) Bilateral pneumonia Qualifiers: Pneumonia type: due to unspecified organism Lung location: unspecified part of lung Qualified Code(s): J18.9 - Pneumonia, unspecified organism (4) Allergic reaction caused by a drug Qualifiers: Encounter type: initial encounter Qualified Code(s): T78.40XA - Allergy, unspecified, initial encounter (5) Acute respiratory failure Qualifiers: Respiratory failure complication: unspecified whether with hypoxia or hypercapnia Qualified Code(s): J96.00 - Acute respiratory failure, unspecified whether with hypoxia or hypercapnia (7) Leukocytosis Qualifiers: Leukocytosis type: unspecified Qualified Code(s): D72.829 - Elevated white blood cell count, unspecified (8) Hypotension Qualifiers: Hypotension type: unspecified hypotension type Qualified Code(s): I95.9 - Hypotension, unspecified
[2018-05-03] MEDS: Midazolam 100 MG/100 ML Inj 100 MG/100 ML BAG IV.CONT PRN (12:13)
[2018-05-03] MEDS: DAPTOmycin Inj 1,000 MG in Sodium Chlor 0.9% Inj 100 ML IV.SIG SCH (12:13)
--- NOTE | 2018-05-03 17:44 | P.PNPL ---
Subjective Interval history: 72 YOWM with MRSA Pn, cavitary lesion, COPD, Lt ptx mild sob Intbated Sedated Small chest tube removed large bore chest tube with airleak Off neosyn Physical Exam Vital signs: Vital Signs 05/02/18 17:50 05/02/18 17:51 05/02/18 18:00 Temperature Pulse Rate 119 H 108 H 117 H Respiratory Rate 24 23 Blood Pressure 89/53 L 91/54 L Pulse Oximetry 95 94 L 05/02/18 18:15 05/02/18 18:30 05/02/18 18:32 Temperature Pulse Rate 113 H 114 H 115 H Respiratory Rate 18 18 18 Blood Pressure 86/53 L 85/54 L 86/52 L Pulse Oximetry 95 95 95 05/02/18 19:00 05/02/18 19:47 05/02/18 20:00 Temperature 99.6 F Pulse Rate 114 H 113 H 107 H Respiratory Rate 20 18 18 Blood Pressure 98/63 L 104/72 Pulse Oximetry 92 L 97 99 05/02/18 21:00 05/02/18 22:00 05/02/18 23:00 Temperature Pulse Rate 104 H 87 85 Respiratory Rate 18 18 20 Blood Pressure 96/66 L 91/61 L 112/65 Pulse Oximetry 100 97 100 05/02/18 23:57 05/03/18 00:00 05/03/18 01:00 Temperature Pulse Rate 89 88 90 Respiratory Rate 21 21 21 Blood Pressure 109/66 112/67 Pulse Oximetry 98 100 97 05/03/18 02:00 05/03/18 03:00 05/03/18 03:40 Temperature Pulse Rate 94 H 96 H 96 H Respiratory Rate 20 19 19 Blood Pressure 94/58 L 91/53 L Pulse Oximetry 95 96 05/03/18 04:00 05/03/18 04:20 05/03/18 05:00 Temperature Pulse Rate 100 H 102 H Respiratory Rate 20 20 19 Blood Pressure 89/53 L 93/59 L Pulse Oximetry 96 100 96 05/03/18 06:00 05/03/18 07:00 05/03/18 07:23 Temperature 98.6 F Pulse Rate 101 H 101 H 103 H Respiratory Rate 18 18 18 Blood Pressure 88/57 L 90/58 L Pulse Oximetry 99 99 99 05/03/18 08:00 05/03/18 09:00 05/03/18 10:00 Temperature 98.7 F Pulse Rate 102 H 102 H 101 H Respiratory Rate 18 18 18 Blood Pressure 101/64 86/57 L 88/58 L Pulse Oximetry 98 98 98 05/03/18 11:00 05/03/18 11:25 05/03/18 12:00 Temperature 97.8 F Pulse Rate 102 H 101 H 105 H Respiratory Rate 18 18 18 Blood Pressure 92/59 L 96/57 L Pulse Oximetry 99 100 99 05/03/18 13:00 05/03/18 14:00 05/03/18 14:26 Temperature Pulse Rate 104 H 104 H 103 H Respiratory Rate 18 18 20 Blood Pressure 94/60 L 97/61 L Pulse Oximetry 99 99 05/03/18 15:00 05/03/18 15:13 05/03/18 16:00 Temperature 99 F Pulse Rate 110 H 114 H Respiratory Rate 18 18 19 Blood Pressure 98/62 L 90/58 L Pulse Oximetry 97 99 99 05/03/18 17:00 Temperature Pulse Rate 111 H Respiratory Rate 18 Blood Pressure 96/60 L Pulse Oximetry 99 Intake & Output 05/02/18 05/03/18 05/03/18 18:59 06:59 18:59 Intake Total 1308 / 1308 585 / 585 400 / 400 Output Total 1170 / 1170 1030 / 1030 800 / 800 Balance 138 / 138 -445 / -445 -400 / -400 Weight 74.5 kg Intake: IV 1248 / 1248 585 / 585 400 / 400 Versed Inj 100 mg In 100 ml @ 2 98 / 98 35 / 35 100 / 100 MG/HR 2 mls/hr IV.CONT TITRATE PRN Rx#:[id number] Neosynephrine Inj 40 MG In D5W 450 / 450 50 / 50 Inj 496 ML @ 40 MCG/MIN 30 mls/ hr IV.CONT TITRATE PRN Rx#: [id number] Diprivan 1000 mg/100 ml Inj 1, 200 / 200 100 / 100 100 / 100 000 mg In 100 ml @ 5 MCG/KG/MIN 2.265 mls/hr IV.CONT TITRATE PRN Rx#:[id number] Teflaro Inj 600 MG In NS Inj 100 / 100 100 / 100 100 / 100 100 ML @ 100 mls/hr IV.SIG Q12H [facility] Rx#:[id number] Cubicin Inj 1,000 MG In NS Inj 100 / 100 100 / 100 100 ML @ 200 mls/hr IV.SIG Q24H [facility] Rx#:[id number] Zyvox 600 mg Premix 300 ML @ 300 / 300 300 / 300 300 mls/hr IV.SIG Q12H [facility] Rx#: [id number] Tube Irrigant 60 / 60 Output: Urine Amount (Catheter) 1050 / 1050 900 / 900 800 / 800 Straight 1050 / 1050 900 / 900 800 / 800 Chest Tube Drainage 120 / 120 130 / 130 Right Lower 120 / 120 130 / 130 Other: Date of Last Bowel Movement 04/30/18 04/30/18 04/30/18 GENERAL: Elderly Wm on vent, sedated SKIN: Warm and dry. HEAD: Normocephalic. EYES: No scleral icterus. No injection or drainage. NECK: Supple, trachea midline. No JVD or lymphadenopathy. CARDIOVASCULAR: Regular rate and rhythm without murmurs, gallops, or rubs. RESPIRATORY: Breath sounds equal bilaterally. No accessory muscle use. Rt chest tube with air leak. GASTROINTESTINAL: Abdomen soft, non-tender, nondistended. MUSCULOSKELETAL: No cyanosis, or edema. BACK: Nontender without obvious deformity. No CVA tenderness. - Urinary Catheter Management Indwelling Urethral Catheter Cath placed during this visit: yes, but has since been removed by the nurse Reason for continuing: Acute urinary retention Insertion date: 04/05/18 Insertion time: 23:00 Removal date: 04/12/18 Removal time: 08:30 Condom Cath placed during this visit: no Reason for continuing: Acute urinary retention Straight Cath placed during this visit: yes Reason for continuing: Acute urinary retention Insertion date: 04/08/18 Insertion time: 18:00 Assessment and Plan - Plan IMPRESSION: 1. MRSA pneumonia. 2. Cavitary pneumonia. 4. Chronic obstructive pulmonary disease. 5. Hypotension. 6. Left pneumothorax, status post chest tube.removal 7. Nicotine use. 8. Right Ptx 9. VDRF PLAN: Cont Abx per ID Ceftaroline, Zyvox, Daptomycin Aerosol nebs Vent Support Chest tube to suction will evaluate for decortication in AM
[2018-05-04] MEDS: Midazolam 100 MG/100 ML Inj 100 MG/100 ML BAG IV.CONT PRN ×2 (02:36→18:36)
[2018-05-04] MEDS: Propofol 1000 mg/100 ml Inj 1,000 MG/100 ML BOTTLE IV.CONT PRN ×3 (03:00→19:39)
[2018-05-04 04:27] LABS: Hematocrit 28.5 % (39.0-51.0); Hemoglobin 9.6 gm/dL (13.0-17.0); Mean Corpuscular HGB Conc 33.6 % (32.0-36.0); Mean Corpuscular Volume 89.2 fL (80.0-100.0); Mean Platelet Volume 8.2 fL (7.0-11.0); Platelet Count 224 th/mm3 (150-450); Red Cell Distribution Width 14.7 % (11.6-17.2); White Blood Count 7.6 th/mm3 (4.0-11.0)
[2018-05-04 04:32] LABS: INR 1.1 Ratio; Prothrombin Time 11.1 sec (9.8-11.6)
[2018-05-04] MEDS: Oral Hygiene Kit OROPHARYNG SCH ×4 (04:33→23:23)
[2018-05-04 04:55] LABS: Alanine Aminotransferase 43 U/L (12-78); Albumin 1.4 g/dL (3.4-5.0); Alkaline Phosphatase 110 U/L (45-117); Anion Gap 8 meq/L (5-15); Aspartate Aminotransferase 55 U/L (15-37); Blood Urea Nitrogen 12 mg/dL (7-18); Carbon Dioxide 31.5 meq/L (21.0-32.0); Chloride 96 meq/L (98-107); Glomerular Filtration Rate Greater Than 89 mL/min (>89); Glucose,Random 95 mg/dL (74-106); Magnesium 1.9 mg/dL (1.5-2.5); Potassium 3.5 meq/L (3.5-5.1); Sodium 135 meq/L (136-145); Total Protein 5.9 g/dL (6.4-8.2)
--- NOTE | 2018-05-04 05:31 | XR ---
EXAM DATE: 05/04/2018 5:22 AM EST AGE/SEX: 72 years / Male INDICATIONS: Shortness of breath, possible respiratory disease. CLINICAL DATA: This is the patient's subsequent encounter. Patient reports that signs and symptoms h ave been present for 3 weeks and indicates a pain score of Nonresponsive. MEDICAL/SURGICAL HISTORY: . Chronic obstructive pulmonary disease. Hypertension. MRSA. Chest tube, right. COMPARISON: [facility] [place], CHEST 1V SINGLE AP, 05/03/2018. . FINDINGS: Portable AP view of the chest demonstrates a normal-sized cardiac silhouette. ETT and nasogastric tub e remain present. EKG lines overlie the patient. Right subclavian central line distal tip is in the S VC. Right chest tube is present with distal tip near the apex of the hemithorax. Pleural line remains visualized superior medially in the right hemithorax indicating stable pneumothorax. There is a stab le airspace opacity in the right upper lobe and stable right basilar pleural-parenchymal opacity. The right chest wall subcutaneous emphysema is stable. CONCLUSION: 1. No significant change is appreciated. Right chest tube remains present and there is a persistent right pneumothorax. 2. Stable right basilar opacity characteristic of pleural effusion with associated volume loss and/o r airspace consolidation. The right upper lobe opacity is also stable. Electronically signed by: Akash Odell MD Board Certified Radiologist 05/04/2018 5:30 AM EST
[2018-05-04] MEDS: Artificial Tears Opth Drops 15 ML Bottle EACH EYE SCH ×3 (05:34→20:07)
[2018-05-04] MEDS: Chlorhexidine 0.12% Oral Kit 15 ML UDC OROPHARYNG SCH ×2 (07:20→19:39)
[2018-05-04] MEDS: Sodium Chloride 0.9% 2 ML Flush BID IV.FLUSH SCH ×2 (08:35→20:07)
[2018-05-04] MEDS: Docusate Sodium 100 MG Capsule PO SCH ×2 (08:36→20:06)
[2018-05-04] MEDS: Metoprolol Tartrate 100 MG Tablet PO SCH ×2 (08:36→20:07)
[2018-05-04] MEDS: Famotidine PF Inj 20 MG/2 ML Vial IV.PUSH SCH ×2 (08:36→20:07)
[2018-05-04] MEDS: Sennosides Liq 8.8 MG/5 ML UDC PO SCH (08:36)
[2018-05-04] MEDS: guaiFENesin 600 MG ER Tablet PO SCH ×2 (08:36→20:07)
--- NOTE | 2018-05-04 11:05 | MB ---
cc: Angeli Victoria MD DATE: 05/01/2018 HISTORY OF PRESENT ILLNESS: This is a 72-year-old male who was admitted on 04/05/2018 via the emergency department; came in with shortness of breath via EMS. On arrival, his O2 saturations were in the low 90s. He received some IV Solu-Medrol; has significant history of COPD. Initial x-ray showed some patchy infiltrates in both lungs. He was initially able to maintain his oxygenation, but then also became hypotensive and he was deemed septic from pneumonia. Received a dose of vancomycin where he apparently had an ALLERGIC REACTION. The patient was later emergently intubated. He was treated for community-acquired pneumonia, COPD exacerbation, respiratory failure, hypotension, sepsis. The patient was placed on pressors, remained intubated and sedated until 04/14/2108, where he was extubated. The patient apparently, on 04/17/2018, had a left-sided chest tube placed for a pneumothorax. The patient was stepped down to medical and then on 04/24/2018, the intensivists were called back due to acute respiratory distress. The x-ray showed a new large right-sided pneumothorax. Immediately they placed a right chest tube. On 04/26/2018, the patient had increasing respiratory distress. They repositioned the chest tube and he had some improvement. On 04/30/2018, the patient was reintubated. A CT chest was obtained. There was extensive consolidation throughout the portions of the right lung with debris in the right bronchus and bronchus intermedius. There were some multiloculated collections in the right lower lobe and the right inferior lateral costophrenic angle. The patient had a second chest tube placed for persistent right pneumothorax. A #28-Mongolian was placed right laterally. Both chest tubes currently have air leaks. He does have some subcutaneous emphysema. Bronchoscopy was completed today by Dr. Carey. There was extensive amount of mucus plugging seen in the right lung. No endobronchial lesions were seen and bronchial washings were sent for fungal cultures, routine culture, cytology. We were consulted due to this right lateral costophrenic collection multiloculated fluid. The x-ray from today has some improvement. PAST MEDICAL HISTORY: COPD, hypertension. SURGERIES: He has had prior back surgery. ALLERGIES: INCLUDE VANCOMYCIN, [place]. HOME MEDICATIONS: Include: 1. Metoprolol. 2. Lisinopril. FAMILY HISTORY: Noncontributory. SOCIAL HISTORY: Rare alcohol. Positive for tobacco abuse. REVIEW OF SYSTEMS: Unobtainable since the patient is intubated and sedated. PHYSICAL EXAMINATION: VITAL SIGNS: Blood pressure 88/60. The patient is currently on 70 mcg of Beau-Synephrine. He is also sedated with propofol and Versed and fentanyl; heart rate of 90. Currently on 80% FiO2. GENERAL: Patient again is sedated on the vent, orally intubated. HEENT: Pupils are approximately 2 mm - 3 mm midline, sluggish. Oral mucosa pink. NECK: Supple. No JVD. HEART: Heart sounds S1, S2, slightly tachycardic. No rubs or gallops. LUNGS: He has got some subcutaneous emphysema to the right anterior chest wall. Has 2 lateral chest tubes, a small 10-Mongolian and a #28 Mongolian catheter. ABDOMEN: Soft, nontender. EXTREMITIES: Reveal no cyanosis, clubbing, or edema. He has some poor skin turgor. LABORATORY DATA: Shows hemoglobin 11.9, hematocrit of 35, white cell count of 6.7, platelet count of 139. Sodium 135, potassium 3.5, BUN of 12, creatinine of 0.50. Hepatitis panel negative. The patient did have 4/4 blood cultures positive for MRSA. Sputum also showed MRSA. RADIOLOGICAL EXAMS: As above. IMPRESSION AND PLAN: This is a 72-year-old male chronically with history of chronic obstructive pulmonary disease, continued tobacco abuse, admitted with respiratory failure, bilateral pneumonia; community-acquired, also septicemia treated with IV antibiotics. New ALLERGY TO VANCOMYCIN. At this time the chest x-ray and the CT scan was evaluated by Dr. Angeli Victoria. Currently, no surgical intervention warranted. We will continue to follow accordingly. Would continue the chest tubes to suction. Continue antibiotic therapy. Further plan per Dr. Victoria. Dictated by Mimi Peters APRN 72y/o male presents with acute respiratory failure requiring intubation/ ventilation secondary to pneumonia and complex right pleural loculated hydropneumothorax. I reviewed the patient's history and clinical studies as wellas examined him with the HORTICULTURE SUPERVISOR on 05/01/18. Will follow. Prognosis is guarded. Angeli MD JUDITH Méndez/stella , 02:06 PM , 02:17 PM MTDDianne
--- NOTE | 2018-05-04 12:01 | P.PNCC ---
Subjective Subjective Remarks/Hospital Course: Patient is 72-year-old male with past medical history of COPD, tobacco abuse and hypertension who came to the emergency room for shortness of breath via EMS. On EMS arrival saturation was in the 90s, but patient had significant shortness of breath and dyspnea. Patient received Solu-Medrol 125 mg IV and breathing treatments by EMS and was brought to the emergency department. In the emergency department patient received further breathing treatments and chest x-ray showed patchy infiltrate on bilateral lung fitzgerald. Initially maintaining oxygen saturation with nasal cannula. Initial blood pressure was 85 /65, improved with normal saline boluses. WBC count was 17.1. Patient was deemed septic from pneumonia and patient was ordered to receive vancomycin and Zosyn. While receiving vancomycin patient acutely decompensated became extremely short of breath and developed erythematous maculopapular rash involving face torso armpits and groin region. Emergently intubated and placed on mechanical ventilation by the ED physician. Received IV 50 mg Benadryl. Critical care medicine was requested to admit the patient. I evaluated the patient immediately in the emergency department. Patient is intubated on Versed and fentanyl infusion however he is very asynchronous with the vent triggering ventilator alarms. Severe bilateral expiratory wheezing heard on auscultation. He has extensive skin rash predominantly face forehead torso armpit and groins. Appears like patient had anaphylactic reaction to vancomycin complicated by COPD exacerbation and pneumonia. I have ordered additional Solu-Medrol 100 mg x1 scheduled Benadryl and famotidine, antibiotics with cefepime and Levaquin. Increase Versed infusion, add propofol and use neuromuscular paralysis as needed. Will request pharmacy to add vancomycin to allergy. ED physician Dr. Slater had noticed that patient had some swelling on the left side of his face on arrival, however the skin rash after vancomycin was started was new. Patient remains hypotensive has received 2 L of normal saline in the emergency department and no significant urine output. I have ordered additional 2 L normal saline bolus and maintenance fluid at 84 mL/h. Use Levophed as needed to keep map above 65 Subjective 04/06: Off norepinephrine drip. Currently resting in bed in no acute distress on midazolam and fentanyl drips. Start tube feeding today. 04/07: Remains sedated, intubated on mechanical ventilation. Blood cultures growing MRSA 04/08: remains sedated and intubated. repeat cultures still growing MRSA 2/4 cultures. likely need to repeat BCx either today or tomorrow. agree with narrowing spectrum abx. performed DEEDEE at ID recommendation (need to r/o endocarditis), but no evidence of vegetations. remains hypoxic. off vasopressors today. 04/09: adequate auto-diuresis overnight. off vasopressors. on sedation vacation. hypoxia improving. 04/10 Patient remains intubated and sedated with Fentanyl infusion. Became tachycardic and tachypneic overnight requiring increase sedation. Afebrile. 04/11 Patient is intubated and sedated. Afebrile. 04/12 Patient remains intubated and sedated with Diprivan and Fentanyl infusion, Afebrile. 04/13: Sedated, easily arousable, orally intubated on mechanical ventilation. 04/14 Patient was extubated yesterday. Afebrile. 04/15 Patient is lying in bed in NAD. On 3L oxygen. Awake and alert. 04/16 Patient is on partial rebreather. Afebrile. Awake and alert. 04/17: Left-sided chest tube placed for pneumothorax yesterday. On nasal cannula currently. Awake and alert. Appears comfortable. No air leak noted in Pleur-evac 04/18: Remains on nasal cannula. No air leak noted from left-sided chest tube. 04/19: On 5 L nasal cannula. Chest tube in place, no air leak noted. Resting in bed comfortably, no acute distress. Continues to have productive cough. 04/20: Remains on nasal cannula. Chest tube in place, no air leak noted. Resting in bed comfortably. 04/24: RECONSULT NOTE: called emergently by Hospitalist team. patient with new acute respiratory distress. Chest x-ray demonstrates new large right-sided pneumothorax. I went to evaluate the patient is seen in significant distress. I emergently placed right-sided pigtail chest tube. Significant denney of air with no air leak on chest tube. Respiratory distress improved after chest tube placement. Repeat interval chest x-ray demonstrates good placement of chest tube with resolution of pneumothorax. 04/26/18: RECONSULT NOTE: [facility] reconsulted for rexpansion of right pneumothorax. Patient developed increased SOB today without improvement with nebulizer. STAT CXR Moderate to large right pneumothorax has redeveloped and with a probable tension component. He appears to be in moderate distress tachypneic. Patient was moved to the ICU where I evaluated the patient emergently. The right pigtail chest tube is still in place, minimal air leak. I flushed the chest tube but was difficult to withdraw air. I then pulled back the chest tube by approximately 3 cm. Able to withdraw air more easily and on connection to the Vacutainer again there was significant air leak in all chambers. Patient subjectively felt improvement in shortness of breath after chest tube placement. Stat repeat chest x-ray shows near complete reexpansion of the right knee 04/30/18: [facility] RECONSULT NOTE: Critical care, reconsult for worsening respiratory failure. I evaluate the patient urgently. He is very tachypneic diaphoretic. Chest x-ray today showed possible right upper lobe pneumothorax and increasing right effusion. I did an emergent bedside ultrasound which shows probably loculated complicated right pleural effusion. Patient likely needs more further imaging and procedures and in very labored breathing. Proceeded with endotracheal intubation in place patient on mechanical ventilation. I explained plan of care prior to intubation. He understands that he may need emergency chest tube placement and also may need surgical intervention 05/01/18: Patient remains intubated sedated. Hypotensive on 75 mcg/min of Beau- Synephrine. While sedated. CT chest showed severe right lower lung consolidation large pneumothorax/hydropneumothorax on the right side. Plan for large bore chest tube and central line today. Also cardiothoracic surgery was consulted, and I discussed with Dr. Schaeffer. I will plan for a large bore chest tube to the right side followed by a central line placement. 05/02/18: Patient remains intubated heavily sedated for vent synchrony. Right chest tube with large air leak in all chambers. There is possibility of bronchopleural fistula. Chest x-ray shows improved air entry right lung. Discussed with cardiothoracic surgery Dr. Ontiveros today. Will repeat CT scan to see if lung is reexpanding. May need decortication procedure 05/03/18: Patient remains intubated sedated persistent large air leak. CT reviewed with cardiothoracic surgery Dr. Ontiveros. Will discuss with Dr. Schaeffer in a.m. Probably will benefit from decortication due to the hydropneumothorax and persistent pleural effusions which probably are empyema. Otherwise patient remains critically ill clinically same. Bronc cultures growing staph aureus still 05/04/18: Patient remains sedated critically ill. Chest x-ray shows mostly expanded right lung but with persistent loculated apical pneumothorax and right lower effusion. Plan for surgical intervention by Dr. Schaeffer 05/05/2018 possible decortication. Continue broad-spectrum antibiotics Objective Vital Signs / I&O: Vital Signs 05/03/18 12:00 05/03/18 13:00 05/03/18 14:00 Temperature 97.8 F Pulse Rate 105 H 104 H 104 H Respiratory Rate 18 18 18 Blood Pressure 96/57 L 94/60 L 97/61 L Pulse Oximetry 99 99 99 05/03/18 14:26 05/03/18 15:00 05/03/18 15:13 Temperature Pulse Rate 103 H 110 H Respiratory Rate 20 18 18 Blood Pressure 98/62 L Pulse Oximetry 97 99 05/03/18 16:00 05/03/18 17:00 05/03/18 18:00 Temperature 99 F 100 F H Pulse Rate 114 H 111 H 109 H Respiratory Rate 19 18 18 Blood Pressure 90/58 L 96/60 L 105/68 Pulse Oximetry 99 99 98 05/03/18 19:00 05/03/18 19:39 05/03/18 20:00 Temperature Pulse Rate 112 H 114 H 115 H Respiratory Rate 18 18 18 Blood Pressure 96/61 L 99/63 L Pulse Oximetry 98 96 99 05/03/18 21:00 05/03/18 22:00 05/03/18 23:00 Temperature Pulse Rate 113 H 118 H 93 H Respiratory Rate 18 18 18 Blood Pressure 102/61 106/64 95/61 L Pulse Oximetry 97 99 97 05/03/18 23:30 05/04/18 00:00 05/04/18 01:00 Temperature Pulse Rate 93 H 95 H 96 H Respiratory Rate 18 18 18 Blood Pressure 95/56 L 91/59 L Pulse Oximetry 96 96 96 05/04/18 02:00 05/04/18 02:41 05/04/18 03:00 Temperature Pulse Rate 98 H 99 H 101 H Respiratory Rate 18 18 18 Blood Pressure 90/57 L 90/55 L Pulse Oximetry 96 95 05/04/18 03:31 05/04/18 04:00 05/04/18 05:00 Temperature Pulse Rate 104 H 113 H Respiratory Rate 18 18 18 Blood Pressure 101/59 L 103/63 Pulse Oximetry 96 94 L 94 L 05/04/18 06:00 05/04/18 07:00 05/04/18 07:06 Temperature 99.1 F Pulse Rate 115 H 111 H Respiratory Rate 19 19 18 Blood Pressure 102/62 105/66 Pulse Oximetry 93 L 94 L 95 05/04/18 07:31 05/04/18 08:00 05/04/18 09:00 Temperature 100.3 F H Pulse Rate 108 H 112 H 113 H Respiratory Rate 18 18 18 Blood Pressure 111/69 107/72 Pulse Oximetry 94 L 97 05/04/18 10:00 05/04/18 11:00 05/04/18 11:02 Temperature Pulse Rate 112 H 109 H 109 H Respiratory Rate 19 18 18 Blood Pressure 109/72 100/65 Pulse Oximetry 96 96 97 Intake & Output 05/03/18 05/04/18 05/04/18 18:59 06:59 18:59 Intake Total 560 / 560 600 / 600 600 / 600 Output Total 900 / 900 700 / 700 Balance -340 / -340 -100 / -100 600 / 600 Weight 75.5 kg Intake: IV 500 / 500 600 / 600 600 / 600 Versed Inj 100 mg In 100 ml @ 2 100 / 100 100 / 100 MG/HR 2 mls/hr IV.CONT TITRATE PRN Rx#:[id number] Neosynephrine Inj 40 MG In D5W 0 / 0 Inj 496 ML @ 40 MCG/MIN 30 mls/ hr IV.CONT TITRATE PRN Rx#: [id number] Diprivan 1000 mg/100 ml Inj 1, 200 / 200 100 / 100 100 / 100 000 mg In 100 ml @ 5 MCG/KG/MIN 2.265 mls/hr IV.CONT TITRATE PRN Rx#:[id number] Ofirmev Inj 1,000 mg In 100 ml 100 / 100 @ 400 mls/hr IV.SIG NOW ONE Rx# :[id number] Teflaro Inj 600 MG In NS Inj 100 / 100 100 / 100 100 / 100 100 ML @ 100 mls/hr IV.SIG Q12H [place] Rx#:[id number] Cubicin Inj 1,000 MG In NS Inj 100 / 100 100 ML @ 200 mls/hr IV.SIG Q24H [place] Rx#:[id number] Zyvox 600 mg Premix 300 ML @ 300 / 300 300 / 300 300 mls/hr IV.SIG Q12H [place] Rx#: [id number] Water Bolus Amount 60 / 60 Output: Urine Amount (Catheter) 800 / 800 650 / 650 Straight 800 / 800 650 / 650 Chest Tube Drainage 100 / 100 50 / 50 Right Lower 100 / 100 50 / 50 Other: Date of Last Bowel Movement 04/30/18 04/30/18 04/30/18 Result Diagrams: 05/04/18 03:55 05/04/18 03:55 Objective Remarks: GENERAL: Patient is lying in bed in critically ill intubated heavily sedated SKIN: Warm and dry. HEAD: Atraumatic. Normocephalic. EYES: Pupils equal and round. No scleral icterus. ENT: No nasal bleeding or discharge. Mucous membranes moist. Orotracheally intubated NECK: Trachea midline. No JVD. CARDIOVASCULAR: S1-S2 normal no murmur RESPIRATORY: Intubated sedated. Coarse rhonchi and wheezes right lower lung and rhonchi in the left lung. Air entry diminished with right upper lung. Subcutaneous emphysema present on the right chest wall is improved. 28 [place] chest tube to the right with 1-2+ airleak GASTROINTESTINAL: Abdomen soft, non-tender, nondistended. no guarding. MUSCULOSKELETAL: Extremities without clubbing, cyanosis, or edema. No obvious deformities. NEUROLOGICAL: Intubated heavily sedated for vent synchrony with propofol and Versed. Moves all extremities withdraws to pain. No focal deficits Assessment and Plan - Problem List (1) Anaphylaxis Code(s): T78.2XXA - Anaphylactic shock, unspecified, initial encounter Status : Acute (2) COPD with acute exacerbation Code(s): J44.1 - Chronic obstructive pulmonary disease with (acute) exacerbation Status: Acute (3) Bilateral pneumonia Code(s): J18.9 - Pneumonia, unspecified organism Status: Acute (4) Allergic reaction caused by a drug Code(s): T78.40XA - Allergy, unspecified, initial encounter Status: Acute (5) Acute respiratory failure Code(s): J96.00 - Acute respiratory failure, unspecified whether with hypoxia or hypercapnia Status: Acute (6) Severe sepsis Code(s): A41.9 - Sepsis, unspecified organism; R65.20 - Severe sepsis without septic shock Status: Acute (7) Leukocytosis Code(s): D72.829 - Elevated white blood cell count, unspecified Status: Acute (8) Hypotension Code(s): I95.9 - Hypotension, unspecified Status: Acute (9) Acute kidney injury Code(s): N17.9 - Acute kidney failure, unspecified Status: Acute (10) Hyponatremia Code(s): E87.1 - Hypo-osmolality and hyponatremia Status: Acute (11) Hyperglycemia Code(s): R73.9 - Hyperglycemia, unspecified Status: Acute (12) History of hypertension Code(s): Z86.79 - Personal history of other diseases of the circulatory system Status: Chronic (13) Tobacco abuse Code(s): Z72.0 - Tobacco use Status: Chronic (14) History of COPD Code(s): Z87.09 - Personal history of other diseases of the respiratory system Status: Chronic - Assessment and Plan Plan: Assessment: 72-year-old male with known necrotizing MRSA pneumonia and hypoxemia requiring supplemental oxygenation now with acute respiratory distress secondary to acute right pneumothorax. Status post emergent chest tube decompression. Previously was transferred to [facility] service now reconsulted 04/30/2018 now with what appears to be persistent right pneumothorax and loculated complicated right pleural effusion most likely parapneumonic. Intubated large bore chest tube placed 05/01/2018. Remains very critical with persistent air leak septic shock from necrotizing MRSA pneumonia. Prognosis appears guarded Active problems: Acute hypoxemic respiratory failure Persistent right-sided pneumothorax Right-sided complicated pleural effusion, probable empyema MRSA pneumonia with probable lung abscess Severe necrotizing pneumonia Probable septic emboli to the left lung Septic shock COPD with exacerbation MRSA bacteremia MRSA pneumonia Plan: NEURO: -Propofol and versed for sedation and ventilator synchrony -Daily sedation vacation after surgical interventions are completed RESP: -PRVC/AC, Ventilator bundle -DuoNeb every 4 hours scheduled and as needed -CT of the chest 04/30/2018 shows large persistent right pneumothorax pl effusion and significant right lower lung consolidation with probable cavitation /abscess -s/p 28 [place] chest tube to the right side, now with reexpansion of the lung but continued air leak -Dr. Carey did bronchoscopy- large amount of mucus plugging removed from right upper lobe -Repeat CT chest shows good reexpansion of the right lung. Persistent hydropneumothorax apically and right lower lung region. Loculated hydropneumothorax may be empyema -Infectious disease and Pulmonology is following. CT surgery following -Plan for OR for decortication tomorrow 05/05/2018 -Continue antibiotics per ID CV: -Normal saline IV fluids 100 ml per hour -Beau-Synephrine if needed to keep map above 65 GI: -N.p.o. after midnight, IV famotidine : -Monitor renal function closely. Shine catheter in anticipation of ID: -Antibiotics per ID. Currently on Teflaro, Zyvox and daptomycin -Further cultures per ID -Gdearxbuofcp-mwrbnc-lm cultures -Plan for decortication procedure tomorrow HEME: -Monitor CBC, coags ENDO: -Electrolyte replacement per protocol -Sliding scale insulin if needed PROPH: -Bilateral lower extremity SCDs. Lovenox/famotidine. Hold Lovenox 05/03/2018 until surgical plans are defined LINES: -Utilize peripheral IVs, right subclavian central line placed 05/01/18 CC time 35 min excluding procedures This patient remains critically ill with one or more organ systems which are or may become a threat to life. I have spent in excess of 45 minutes discontinuously in the care and management of this patient. This time is exclusive of procedures, and includes, but is not limited to, evaluation of the patient, review of the medical record, discussions with family, consultants, nursing staff, or respiratory therapy, and documentation in the medical record. STAT CT showed Right-sided pigtail catheter in the right mid chest with a large right-sided pneumothorax remaining. There is extensive consolidation throughout the only aerated portions of the right lung with debris in the right bronchus and bronchus intermedius. There is multiloculated fluid collections in the right lower lobe and the right inferior lateral costophrenic angle could be multiloculated infection. After the CT was reviewed I reevaluate the positioning of the chest tube and it was noted that the chest tube may be obstructed. I flushed with normal saline and reopened the chest tube with now 1-2+ airleak. No need of additional chest tube at this time as the patient has no features of tension. Cardiothoracic surgery consulted for probable lung abscess and persistent pneumothorax I have updated patient's daughter on the phone 05/01/2018 (1) Anaphylaxis Qualifiers: Encounter type: initial encounter Qualified Code(s): T78.2XXA - Anaphylactic shock, unspecified, initial encounter (3) Bilateral pneumonia Qualifiers: Pneumonia type: due to unspecified organism Lung location: unspecified part of lung Qualified Code(s): J18.9 - Pneumonia, unspecified organism (4) Allergic reaction caused by a drug Qualifiers: Encounter type: initial encounter Qualified Code(s): T78.40XA - Allergy, unspecified, initial encounter (5) Acute respiratory failure Qualifiers: Respiratory failure complication: unspecified whether with hypoxia or hypercapnia Qualified Code(s): J96.00 - Acute respiratory failure, unspecified whether with hypoxia or hypercapnia (7) Leukocytosis Qualifiers: Leukocytosis type: unspecified Qualified Code(s): D72.829 - Elevated white blood cell count, unspecified (8) Hypotension Qualifiers: Hypotension type: unspecified hypotension type Qualified Code(s): I95.9 - Hypotension, unspecified
--- NOTE | 2018-05-04 12:50 | P.PNCV ---
- Note Subjective/Hospital Course: A 72-year-old male admitted on 04/05/2018 via the emergency department for shortness of breath, brought in by EMS with COPD exacerbation, also history of tobacco abuse. The patient became hypotensive, was found to have bilateral patchy infiltrates and was deemed septic from pneumonia, received immediate antibiotics. He also received a dose of vancomycin and apparently had some post maculopapular rash. He was emergently intubated and placed on ventilator by the emergency physician. Patient was successfully resuscitated with IV fluids, transferred to the emergency department where he remained on pressors. He was actually extubated on 04/14/2018 and was found to have developed a left- sided pneumothorax. A chest tube was placed and on 04/24/2018 patient went into acute respiratory distress. The chest x-ray showed a new right-sided pneumothorax and emergent right-sided chest tube was placed and respiratory distress improved after the placement and then on 04/26/2018 the patient had increasing shortness of breath despite nebulizer treatment. He was transferred again back to the ICU. The right chest tube was pulled back and adjusted with improved shortness of breath after the chest tube placement and on 04/30/2018 the patient apparently had increasing shortness of breath which showed a possible right upper lobe pneumothorax despite the chest tube and increasing effusion. Bedside ultrasound showed loculated complicated effusion. The patient was then reintubated and we were consulted to evaluate for right upper lobe loculated effusion. The patient now has [address] with air leak. He does have some subcutaneous emphysema. CT Chest 05/02 CONCLUSION: 1. Overall improving exam with improved aeration of the right hemithorax. Persistent areas of loculated pleural effusion. These demonstrate foci of air within the right lower lobe and are concerning for abscess. Airspace abnormalities within the left hemithorax appears stable to smaller in size from prior exam. 05/04 CT chest discussed with Dr Saenz results evaluated by Dr Victoria attempted to contact Daughter Liliana plan is for surgery in am Right thoracoscopic exploration with evacuation of loculated pleural effusion , possible decortication pt remains on vent sedated , right chest tube with + air leak / pig tail cath has been removed Objective: Vital Signs - 24 hr 05/03/18 13:00 05/03/18 14:00 05/03/18 14:26 Temperature Pulse Rate 104 H 104 H 103 H Respiratory Rate 18 18 20 Blood Pressure 94/60 L 97/61 L Pulse Oximetry 99 99 05/03/18 15:00 05/03/18 15:13 05/03/18 16:00 Temperature 99 F Pulse Rate 110 H 114 H Respiratory Rate 18 18 19 Blood Pressure 98/62 L 90/58 L Pulse Oximetry 97 99 99 05/03/18 17:00 05/03/18 18:00 05/03/18 19:00 Temperature 100 F H Pulse Rate 111 H 109 H 112 H Respiratory Rate 18 18 18 Blood Pressure 96/60 L 105/68 96/61 L Pulse Oximetry 99 98 98 05/03/18 19:39 05/03/18 20:00 05/03/18 21:00 Temperature Pulse Rate 114 H 115 H 113 H Respiratory Rate 18 18 18 Blood Pressure 99/63 L 102/61 Pulse Oximetry 96 99 97 05/03/18 22:00 05/03/18 23:00 05/03/18 23:30 Temperature Pulse Rate 118 H 93 H 93 H Respiratory Rate 18 18 18 Blood Pressure 106/64 95/61 L Pulse Oximetry 99 97 96 05/04/18 00:00 05/04/18 01:00 05/04/18 02:00 Temperature Pulse Rate 95 H 96 H 98 H Respiratory Rate 18 18 18 Blood Pressure 95/56 L 91/59 L 90/57 L Pulse Oximetry 96 96 96 05/04/18 02:41 05/04/18 03:00 05/04/18 03:31 Temperature Pulse Rate 99 H 101 H Respiratory Rate 18 18 18 Blood Pressure 90/55 L Pulse Oximetry 95 96 05/04/18 04:00 05/04/18 05:00 05/04/18 06:00 Temperature 99.1 F Pulse Rate 104 H 113 H 115 H Respiratory Rate 18 18 19 Blood Pressure 101/59 L 103/63 102/62 Pulse Oximetry 94 L 94 L 93 L 05/04/18 07:00 05/04/18 07:06 05/04/18 07:31 Temperature Pulse Rate 111 H 108 H Respiratory Rate 19 18 18 Blood Pressure 105/66 Pulse Oximetry 94 L 95 05/04/18 08:00 05/04/18 09:00 05/04/18 10:00 Temperature 100.3 F H Pulse Rate 112 H 113 H 112 H Respiratory Rate 18 18 19 Blood Pressure 111/69 107/72 109/72 Pulse Oximetry 94 L 97 96 05/04/18 11:00 05/04/18 11:02 05/04/18 12:00 Temperature Pulse Rate 109 H 109 H 109 H Respiratory Rate 18 18 18 Blood Pressure 100/65 109/75 Pulse Oximetry 96 97 97 GENERAL: sedated on vent RASS -2/ orally intubated SKIN: Warm and dry. HEAD: Atraumatic. Normocephalic. EYES: Pupils equal and round. No scleral icterus. No injection or drainage. ENT: No nasal bleeding or discharge. Mucous membranes pink and moist. NECK: Trachea midline. No JVD. CARDIOVASCULAR: Regular rate and rhythm, slightly tachycardic RESPIRATORY: No accessory muscle use. Breath sounds equal bilaterally. coarse bilateral breath sounds right chest tube to wall suction , + air leak GASTROINTESTINAL: Abdomen soft, non-tender, nondistended. Hepatic and splenic margins not palpable. NG tube in place / clamped MUSCULOSKELETAL: Extremities without clubbing, cyanosis, or edema. No obvious deformities. NEUROLOGICAL: sedated on vent , sedation vacation yesterday per nurse , did move all extremities Labs: Laboratory Results - last 12 hr 05/04/18 05/04/18 05/04/18 03:55 03:55 03:55 WBC 7.6 RBC 3.20 L Hgb 9.6 L Hct 28.5 L MCV 89.2 MCH 30.0 MCHC 33.6 RDW 14.7 Plt Count 224 D MPV 8.2 PT 11.1 INR 1.1 Sodium 135 L Potassium 3.5 Chloride 96 L Carbon Dioxide 31.5 Anion Gap 8 BUN 12 Creatinine 0.50 L Estimated GFR Greater than 89 Random Glucose 95 Calcium 8.0 L Magnesium 1.9 Total Bilirubin 0.3 AST 55 H ALT 43 Alkaline Phosphatase 110 Total Protein 5.9 L Albumin 1.4 L Result Diagrams: 05/04/18 03:55 05/04/18 03:55 Telemetry: sinus tach - Plan (1) Pleural effusion Plan: for OR in am (2) Bilateral pneumonia (2) Bilateral pneumonia Qualifiers: Pneumonia type: due to unspecified organism Lung location: unspecified part of lung Qualified Code(s): J18.9 - Pneumonia, unspecified organism
[2018-05-04] MEDS ORDERED: Sodium Chloride 0.9% Irr Bot 500 ML, ceFAZolin Inj 500 MG IRRIGATION SCH ×2 (13:00)
[2018-05-04] MEDS ORDERED: Sodium Chlor 0.9% Inj 77.5 ML, Papaverine Inj 60 MG, Nitroglycerin Inj 100 MCG, dilTIAZ... IRRIGATION SCH ×3 (13:00)
[2018-05-04] MEDS ORDERED: Chlorhexidine 4% Topical 120 APPLIC/120 ML Bottle TOPICAL SCH (13:00)
[2018-05-04] MEDS ORDERED: ceFAZolin Inj 2,000 MG in Sodium Chlor 0.9% Inj 80 ML IV.SIG SCH (13:00)
[2018-05-04] MEDS: DAPTOmycin Inj 1,000 MG in Sodium Chlor 0.9% Inj 100 ML IV.SIG SCH (15:00)
--- NOTE | 2018-05-04 18:23 | P.PNID ---
Subjective Remarks: remains on vent 40% FiO2 no fever plan is for surgery in am : Right thoracoscopic exploration with evacuation of loculated pleural effusion , possible decortication right chest tube with + air leak / pig tail cath has been removed cont to grow MRSA form all resp clx Antibiotics: n zyvox teflaro added 04/16 Lines: Line sites okay Past Medical History: COPD Allergies/Adverse Reactions: Allergies bee venom protein (honey bee) Allergy (Unknown, Verified 04/05/18 21:12) Edema vancomycin Allergy (Verified 04/05/18 23:33) Anaphylaxis Objective Vital Signs 05/03/18 19:00 05/03/18 19:39 05/03/18 20:00 Temperature Pulse Rate 112 H 114 H 115 H Respiratory Rate 18 18 18 Blood Pressure 96/61 L 99/63 L Pulse Oximetry 98 96 99 05/03/18 21:00 05/03/18 22:00 05/03/18 23:00 Temperature Pulse Rate 113 H 118 H 93 H Respiratory Rate 18 18 18 Blood Pressure 102/61 106/64 95/61 L Pulse Oximetry 97 99 97 05/03/18 23:30 05/04/18 00:00 05/04/18 01:00 Temperature Pulse Rate 93 H 95 H 96 H Respiratory Rate 18 18 18 Blood Pressure 95/56 L 91/59 L Pulse Oximetry 96 96 96 05/04/18 02:00 05/04/18 02:41 05/04/18 03:00 Temperature Pulse Rate 98 H 99 H 101 H Respiratory Rate 18 18 18 Blood Pressure 90/57 L 90/55 L Pulse Oximetry 96 95 05/04/18 03:31 05/04/18 04:00 05/04/18 05:00 Temperature Pulse Rate 104 H 113 H Respiratory Rate 18 18 18 Blood Pressure 101/59 L 103/63 Pulse Oximetry 96 94 L 94 L 05/04/18 06:00 05/04/18 07:00 05/04/18 07:06 Temperature 99.1 F Pulse Rate 115 H 111 H Respiratory Rate 19 19 18 Blood Pressure 102/62 105/66 Pulse Oximetry 93 L 94 L 95 05/04/18 07:31 05/04/18 08:00 05/04/18 09:00 Temperature 100.3 F H Pulse Rate 108 H 112 H 113 H Respiratory Rate 18 18 18 Blood Pressure 111/69 107/72 Pulse Oximetry 94 L 97 02/04/19 10:00 05/04/18 11:00 05/04/18 11:02 Temperature Pulse Rate 112 H 109 H 109 H Respiratory Rate 19 18 18 Blood Pressure 109/72 100/65 Pulse Oximetry 96 96 97 05/04/18 12:00 05/04/18 13:00 05/04/18 14:00 Temperature Pulse Rate 109 H 108 H 108 H Respiratory Rate 18 18 18 Blood Pressure 109/75 97/68 L 105/73 Pulse Oximetry 97 97 97 05/04/18 14:26 05/04/18 15:00 05/04/18 16:00 Temperature Pulse Rate 109 H 108 H 108 H Respiratory Rate 18 18 18 Blood Pressure 102/70 100/67 Pulse Oximetry 97 97 05/04/18 16:08 05/04/18 17:00 05/04/18 18:00 Temperature Pulse Rate 109 H 110 H Respiratory Rate 18 18 18 Blood Pressure 106/76 108/76 Pulse Oximetry 97 96 96 Intake & Output 05/03/18 05/04/18 05/04/18 18:59 06:59 18:59 Intake Total 560 / 560 600 / 600 700 / 700 Output Total 900 / 900 700 / 700 1600 / 1600 Balance -340 / -340 -100 / -100 -900 / -900 Weight 75.5 kg Intake: IV 500 / 500 600 / 600 700 / 700 Versed Inj 100 mg In 100 ml @ 2 100 / 100 100 / 100 MG/HR 2 mls/hr IV.CONT TITRATE PRN Rx#:[id number] Neosynephrine Inj 40 MG In D5W 0 / 0 Inj 496 ML @ 40 MCG/MIN 30 mls/ hr IV.CONT TITRATE PRN Rx#: [id number] Diprivan 1000 mg/100 ml Inj 1, 200 / 200 100 / 100 100 / 100 000 mg In 100 ml @ 5 MCG/KG/MIN 2.265 mls/hr IV.CONT TITRATE PRN Rx#:[id number] Ofirmev Inj 1,000 mg In 100 ml 100 / 100 @ 400 mls/hr IV.SIG NOW ONE Rx# :[id number] Teflaro Inj 600 MG In NS Inj 100 / 100 100 / 100 100 / 100 100 ML @ 100 mls/hr IV.SIG Q12H [facility] Rx#:[id number] Cubicin Inj 1,000 MG In NS Inj 100 / 100 100 ML @ 200 mls/hr IV.SIG Q24H [facility] Rx#:[id number] Zyvox 600 mg Premix 300 ML @ 300 / 300 300 / 300 300 mls/hr IV.SIG Q12H [facility] Rx#: [id number] KCl 40 mEq Premix Inj 40 meq In 100 / 100 100 ml @ 25 mls/hr IV.SIG UNSCH PRN Rx#:[id number] Water Bolus Amount 60 / 60 Output: Urine Amount (Catheter) 800 / 800 650 / 650 1600 / 1600 Straight 800 / 800 650 / 650 1600 / 1600 Chest Tube Drainage 100 / 100 50 / 50 Right Lower 100 / 100 50 / 50 Other: Date of Last Bowel Movement 04/30/18 04/30/18 04/30/18 05/01/18 11:00 Bronchial Washings - Right Acid Fast Bacilli Smear - Final No acid fast bacilli seen 05/01/18 11:00 Bronchial Washings - Right Mycobacterial Culture - Pending 05/01/18 11:00 Bronchial - Right Gram Stain - Final 05/01/18 11:00 Bronchial - Right Bronchial Culture - Final S. aureus MRSA 04/28/18 05:35 Sputum - Expectorated Sputum Gram Stain - Final 04/28/18 05:35 Sputum - Expectorated Sputum Sputum Culture - Final S. aureus MRSA 05/01/18 11:00 Bronchial Washings - Right Fungal Smear - Final No fungal elements seen 05/01/18 11:00 Bronchial Washings - Right Fungal Culture - Pending Lab - Hematology Results 05/04/18 03:55 WBC 7.6 RBC 3.20 L Hgb 9.6 L Hct 28.5 L MCV 89.2 MCH 30.0 MCHC 33.6 RDW 14.7 Plt Count 224 D MPV 8.2 Lab - Chemistry Results 05/03/18 05/04/18 23:28 03:55 Sodium 135 L Potassium 3.5 Chloride 96 L Carbon Dioxide 31.5 Anion Gap 8 BUN 12 Creatinine 0.50 L Estimated GFR Greater than 89 POC Glucose 117 H Random Glucose 95 Calcium 8.0 L Magnesium 1.9 Total Bilirubin 0.3 AST 55 H ALT 43 Alkaline Phosphatase 110 Total Protein 5.9 L Albumin 1.4 L Imaging: ITS Impressions Face CT 04/06/18 00:00 CONCLUSION: 1. Small focal area of soft tissue swelling involving the lateral orbital margin on the left. No abscess. Abdomen/Pelvis CT 04/10/18 00:00 CONCLUSION: 1. Findings in the patient's chest discussed on the patient's chest CT. 2. Left renal stone without hydronephrosis. 3. Slight AAA. 4. Possible gallstones within the gallbladder. 5. There is slight fluid within the peritoneal cavity in the pelvis and within left perinephric space and stranding densities involving the Gerota's fascia on the left side. The exact etiology is not certain could be inflammatory, and there is no hydronephrosis. Head MRI 04/12/18 00:00 CONCLUSION: 1. Some chronic changes with mild cortical and central atrophy. Minimal periventricular and scattered deep white matter tract areas of small vessel ischemic demyelination. 2. Some fluid or secretions identified in the dependent portion of the nasopharynx. 3. Otherwise negative. No findings of intracranial mass lesion/abscess. Lumbar Spine MRI 04/12/18 00:00 CONCLUSION: 1. No evidence of epidural abscess. 2. Grade 1 anterolisthesis at L5-S1 with associated discogenic degenerative changes and bilateral pars defects. There is significant bilateral bony neural foraminal stenosis with bilateral neural impingement. 3. Asymmetric ligamentum flavum hypertrophy on the right side at the L4-5 level flattens the dorsal lateral aspect of the thecal sac. Neural foramen remain patent. 4. Suggestion of distended urinary bladder, incompletely imaged in the field-of -view. Thoracic Spine MRI 04/12/18 00:00 CONCLUSION: 1. Small bilateral pleural effusions. 2. Spinal canal is widely patent throughout without cord compromise. No findings of a paravertebral abscess. Abdomen X-Ray 04/12/18 09:42 CONCLUSION: No evidence of ileus. Gallium Scan Nuclear Medicine 04/13/18 00:00 CONCLUSION: 1. There is abnormal uptake in the lungs corresponding to cavitary lesions probably lung abscesses and areas of consolidation seen on the patient's prior chest CT. Chest CT 05/02/18 00:00 CONCLUSION: 1. Overall improving exam with improved aeration of the right hemithorax. Persistent areas of loculated pleural effusion. These demonstrate foci of air within the right lower lobe and are concerning for abscess. Airspace abnormalities within the left hemithorax appears stable to smaller in size from prior exam. Chest X-Ray 05/04/18 06:00 CONCLUSION: 1. No significant change is appreciated. Right chest tube remains present and there is a persistent right pneumothorax. 2. Stable right basilar opacity characteristic of pleural effusion with associated volume loss and/or airspace consolidation. The right upper lobe opacity is also stable. Physical Exam: GENERAL: NAD On vent SKIN: Warm and dry. No rash HEAD: Atraumatic. Normocephalic. EYES: Pupils equal and round. No scleral icterus. No injection or drainage. ENT: No nasal bleeding or discharge. Mucous membranes pink and moist. NECK: Trachea midline. No JVD. CARDIOVASCULAR: Regular rate and rhythm. RESPIRATORY: No accessory muscle use. R lung with decreased BS and extensive +rhonchi to auscultation. R sided CTs x [address] GASTROINTESTINAL: Abdomen soft, non-tender, nondistended. MUSCULOSKELETAL: Extremities without clubbing, no cyanosis no significant edema. 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
--- NOTE | 2018-05-04 19:15 | P.PNPL ---
Subjective Interval history: 72 YOWM with MRSA Pn, cavitary lesion, COPD, Lt ptx mild sob Intbated Sedated Small chest tube removed large bore chest tube with airleak Physical Exam Vital signs: Vital Signs 05/03/18 19:39 05/03/18 20:00 05/03/18 21:00 Temperature Pulse Rate 114 H 115 H 113 H Respiratory Rate 18 18 18 Blood Pressure 99/63 L 102/61 Pulse Oximetry 96 99 97 05/03/18 22:00 05/03/18 23:00 05/03/18 23:30 Temperature Pulse Rate 118 H 93 H 93 H Respiratory Rate 18 18 18 Blood Pressure 106/64 95/61 L Pulse Oximetry 99 97 96 05/04/18 00:00 05/04/18 01:00 05/04/18 02:00 Temperature Pulse Rate 95 H 96 H 98 H Respiratory Rate 18 18 18 Blood Pressure 95/56 L 91/59 L 90/57 L Pulse Oximetry 96 96 96 05/04/18 02:41 05/04/18 03:00 05/04/18 03:31 Temperature Pulse Rate 99 H 101 H Respiratory Rate 18 18 18 Blood Pressure 90/55 L Pulse Oximetry 95 96 05/04/18 04:00 05/04/18 05:00 05/04/18 06:00 Temperature 99.1 F Pulse Rate 104 H 113 H 115 H Respiratory Rate 18 18 19 Blood Pressure 101/59 L 103/63 102/62 Pulse Oximetry 94 L 94 L 93 L 05/04/18 07:00 05/04/18 07:06 05/04/18 07:31 Temperature Pulse Rate 111 H 108 H Respiratory Rate 19 18 18 Blood Pressure 105/66 Pulse Oximetry 94 L 95 05/04/18 08:00 05/04/18 09:00 05/04/18 10:00 Temperature 100.3 F H Pulse Rate 112 H 113 H 112 H Respiratory Rate 18 18 19 Blood Pressure 111/69 107/72 109/72 Pulse Oximetry 94 L 97 96 05/04/18 11:00 05/04/18 11:02 05/04/18 12:00 Temperature Pulse Rate 109 H 109 H 109 H Respiratory Rate 18 18 18 Blood Pressure 100/65 109/75 Pulse Oximetry 96 97 97 05/04/18 13:00 05/04/18 14:00 02/04/19 14:26 Temperature Pulse Rate 108 H 108 H 109 H Respiratory Rate 18 18 18 Blood Pressure 97/68 L 105/73 Pulse Oximetry 97 97 05/04/18 15:00 05/04/18 16:00 05/04/18 16:08 Temperature Pulse Rate 108 H 108 H Respiratory Rate 18 18 18 Blood Pressure 102/70 100/67 Pulse Oximetry 97 97 97 05/04/18 17:00 05/04/18 18:00 Temperature Pulse Rate 109 H 110 H Respiratory Rate 18 18 Blood Pressure 106/76 108/76 Pulse Oximetry 96 96 Intake & Output 05/04/18 05/04/18 05/05/18 06:59 18:59 06:59 Intake Total 600 / 600 1200 / 1200 Output Total 700 / 700 1600 / 1600 Balance -100 / -100 -400 / -400 Weight 75.5 kg Intake: IV 600 / 600 1200 / 1200 Versed Inj 100 mg In 100 ml @ 2 100 / 100 100 / 100 MG/HR 2 mls/hr IV.CONT TITRATE PRN Rx#:[id number] Neosynephrine Inj 40 MG In D5W 0 / 0 Inj 496 ML @ 40 MCG/MIN 30 mls/ hr IV.CONT TITRATE PRN Rx#: [id number] Diprivan 1000 mg/100 ml Inj 1, 100 / 100 100 / 100 000 mg In 100 ml @ 5 MCG/KG/MIN 2.265 mls/hr IV.CONT TITRATE PRN Rx#:[id number] Ofirmev Inj 1,000 mg In 100 ml 100 / 100 @ 400 mls/hr IV.SIG NOW ONE Rx# :[id number] Teflaro Inj 600 MG In NS Inj 100 / 100 100 / 100 100 ML @ 100 mls/hr IV.SIG Q12H [facility] Rx#:[id number] Cubicin Inj 1,000 MG In NS Inj 100 / 100 100 ML @ 200 mls/hr IV.SIG Q24H [facility] Rx#:[id number] Zyvox 600 mg Premix 300 ML @ 300 / 300 600 / 600 300 mls/hr IV.SIG Q12H [facility] Rx#: [id number] KCl 40 mEq Premix Inj 40 meq In 100 / 100 100 ml @ 25 mls/hr IV.SIG UNSCH PRN Rx#:[id number] Output: Urine Amount (Catheter) 650 / 650 1600 / 1600 Straight 650 / 650 1600 / 1600 Chest Tube Drainage 50 / 50 Right Lower 50 / 50 Other: Date of Last Bowel Movement 04/30/18 04/30/18 GENERAL: Elderly Wm on vent, sedated SKIN: Warm and dry. HEAD: Normocephalic. EYES: No scleral icterus. No injection or drainage. NECK: Supple, trachea midline. No JVD or lymphadenopathy. CARDIOVASCULAR: Regular rate and rhythm without murmurs, gallops, or rubs. RESPIRATORY: Breath sounds equal bilaterally. No accessory muscle use. Rt chest tube with airleak GASTROINTESTINAL: Abdomen soft, non-tender, nondistended. MUSCULOSKELETAL: No cyanosis, or edema. BACK: Nontender without obvious deformity. No CVA tenderness. - Urinary Catheter Management Indwelling Urethral Catheter Cath placed during this visit: yes, but has since been removed by the nurse Reason for continuing: Acute urinary retention Insertion date: 04/05/18 Insertion time: 23:00 Removal date: 04/12/18 Removal time: 08:30 Condom Cath placed during this visit: no Reason for continuing: Acute urinary retention Straight Cath placed during this visit: yes Reason for continuing: Acute urinary retention Insertion date: 04/08/18 Insertion time: 18:00 Assessment and Plan - Plan IMPRESSION: 1. MRSA pneumonia. 2. Cavitary pneumonia. 4. Chronic obstructive pulmonary disease. 5. Hypotension. 6. Left pneumothorax, status post chest tube.removal 7. Nicotine use. 8. Right Ptx 9. VDRF PLAN: Cont Abx per ID Ceftaroline, Zyvox, Daptomycin Aerosol nebs Vent Support Chest tube to suction Surgical intervention, decortication planned for tommorow.
[2018-05-05] MEDS: Oral Hygiene Kit OROPHARYNG SCH ×4 (03:38→23:06)
--- NOTE | 2018-05-05 03:39 | XR ---
EXAM DATE: 05/05/2018 3:17 AM EST AGE/SEX: 72 years / Male INDICATIONS: Short of breath. CLINICAL DATA: This is the patient's subsequent encounter. Patient reports that signs and symptoms h ave been present for 3 weeks and indicates a pain score of 0/10. MEDICAL/SURGICAL HISTORY: . Chronic obstructive pulmonary disease. Hypertension. MRSA. Chest t ube, right. COMPARISON: [facility] – [place], CHEST 1V SINGLE AP, 05/04/2018. . FINDINGS: Portable AP view of the chest demonstrates a normal-sized cardiac silhouette. ETT, nasogastric tube, right subclavian central line, and right chest tube remain present. No pneumothorax is identified. Th ere is stable right basilar pleural-parenchymal opacity and airspace opacity in the right upper lung zone. CONCLUSION: 1. Stable right pleural effusion associated volume loss and/or airspace consolidation. 2. Right chest tube remains present and no pneumothorax is visualized. Electronically signed by: Akash Odell MD Board Certified Radiologist 05/05/2018 3:38 AM EST
[2018-05-05] MEDS: Artificial Tears Opth Drops 15 ML Bottle EACH EYE SCH ×3 (04:03→20:18)
[2018-05-05] MEDS: Propofol 1000 mg/100 ml Inj 1,000 MG/100 ML BOTTLE IV.CONT PRN ×3 (04:09→23:17)
[2018-05-05 05:54] LABS: Hematocrit 29.3 % (39.0-51.0); Hemoglobin 9.9 gm/dL (13.0-17.0); Mean Corpuscular HGB Conc 33.8 % (32.0-36.0); Mean Corpuscular Hemoglobin 30.1 pg (27.0-34.0); Mean Corpuscular Volume 89.2 fL (80.0-100.0); Platelet Count 264 th/mm3 (150-450); Red Blood Count 3.28 mil/mm3 (4.50-5.90); Red Cell Distribution Width 14.8 % (11.6-17.2); White Blood Count 8.6 th/mm3 (4.0-11.0)
[2018-05-05] MEDS: Midazolam 100 MG/100 ML Inj 100 MG/100 ML BAG IV.CONT PRN ×2 (05:55→23:24)
[2018-05-05 06:01] LABS: INR 1.1 Ratio
[2018-05-05 06:21] LABS: Alanine Aminotransferase 55 U/L (12-78); Albumin 1.4 g/dL (3.4-5.0); Anion Gap 8 meq/L (5-15); Aspartate Aminotransferase 59 U/L (15-37); Blood Urea Nitrogen 9 mg/dL (7-18); Calcium 8.2 mg/dL (8.5-10.1); Carbon Dioxide 30.8 meq/L (21.0-32.0); Chloride 97 meq/L (98-107); Glomerular Filtration Rate Greater Than 89 mL/min (>89); Glucose,Random 89 mg/dL (74-106); Potassium 3.6 meq/L (3.5-5.1); Sodium 136 meq/L (136-145)
[2018-05-05 06:23] LABS: Alkaline Phosphatase 121 U/L (45-117); Total Protein 6.3 g/dL (6.4-8.2)
[2018-05-05] MEDS: Chlorhexidine 0.12% Oral Kit 15 ML UDC OROPHARYNG SCH ×2 (08:11→19:57)
[2018-05-05] MEDS: Famotidine PF Inj 20 MG/2 ML Vial IV.PUSH SCH ×2 (08:11→20:18)
[2018-05-05] MEDS: Sodium Chloride 0.9% 2 ML Flush BID IV.FLUSH SCH ×2 (08:11→20:18)
[2018-05-05] MEDS: Metoprolol Tartrate 100 MG Tablet PO SCH ×2 (08:12→20:18)
[2018-05-05] MEDS: Docusate Sodium 100 MG Capsule PO SCH ×2 (08:12→20:18)
[2018-05-05] MEDS: guaiFENesin 600 MG ER Tablet PO SCH ×2 (08:12→20:18)
[2018-05-05] MEDS: Sennosides Liq 8.8 MG/5 ML UDC PO SCH (08:12)
--- NOTE | 2018-05-05 09:37 | P.PNCC ---
Subjective Subjective Remarks/Hospital Course: Patient is 72-year-old male with past medical history of COPD, tobacco abuse and hypertension who came to the emergency room for shortness of breath via EMS. On EMS arrival saturation was in the 90s, but patient had significant shortness of breath and dyspnea. Patient received Solu-Medrol 125 mg IV and breathing treatments by EMS and was brought to the emergency department. In the emergency department patient received further breathing treatments and chest x-ray showed patchy infiltrate on bilateral lung fitzgerald. Initially maintaining oxygen saturation with nasal cannula. Initial blood pressure was 85 /65, improved with normal saline boluses. WBC count was 17.1. Patient was deemed septic from pneumonia and patient was ordered to receive vancomycin and Zosyn. While receiving vancomycin patient acutely decompensated became extremely short of breath and developed erythematous maculopapular rash involving face torso armpits and groin region. Emergently intubated and placed on mechanical ventilation by the ED physician. Received IV 50 mg Benadryl. Critical care medicine was requested to admit the patient. I evaluated the patient immediately in the emergency department. Patient is intubated on Versed and fentanyl infusion however he is very asynchronous with the vent triggering ventilator alarms. Severe bilateral expiratory wheezing heard on auscultation. He has extensive skin rash predominantly face forehead torso armpit and groins. Appears like patient had anaphylactic reaction to vancomycin complicated by COPD exacerbation and pneumonia. I have ordered additional Solu-Medrol 100 mg x1 scheduled Benadryl and famotidine, antibiotics with cefepime and Levaquin. Increase Versed infusion, add propofol and use neuromuscular paralysis as needed. Will request pharmacy to add vancomycin to allergy. ED physician Dr. Slater had noticed that patient had some swelling on the left side of his face on arrival, however the skin rash after vancomycin was started was new. Patient remains hypotensive has received 2 L of normal saline in the emergency department and no significant urine output. I have ordered additional 2 L normal saline bolus and maintenance fluid at 84 mL/h. Use Levophed as needed to keep map above 65 Subjective 04/06: Off norepinephrine drip. Currently resting in bed in no acute distress on midazolam and fentanyl drips. Start tube feeding today. 04/07: Remains sedated, intubated on mechanical ventilation. Blood cultures growing MRSA 04/08: remains sedated and intubated. repeat cultures still growing MRSA 2/4 cultures. likely need to repeat BCx either today or tomorrow. agree with narrowing spectrum abx. performed DEEDEE at ID recommendation (need to r/o endocarditis), but no evidence of vegetations. remains hypoxic. off vasopressors today. 04/09: adequate auto-diuresis overnight. off vasopressors. on sedation vacation. hypoxia improving. 04/10 Patient remains intubated and sedated with Fentanyl infusion. Became tachycardic and tachypneic overnight requiring increase sedation. Afebrile. 04/11 Patient is intubated and sedated. Afebrile. 04/12 Patient remains intubated and sedated with Diprivan and Fentanyl infusion, Afebrile. 04/13: Sedated, easily arousable, orally intubated on mechanical ventilation. 04/14 Patient was extubated yesterday. Afebrile. 04/15 Patient is lying in bed in NAD. On 3L oxygen. Awake and alert. 04/16 Patient is on partial rebreather. Afebrile. Awake and alert. 04/17: Left-sided chest tube placed for pneumothorax yesterday. On nasal cannula currently. Awake and alert. Appears comfortable. No air leak noted in Pleur-evac 04/18: Remains on nasal cannula. No air leak noted from left-sided chest tube. 04/19: On 5 L nasal cannula. Chest tube in place, no air leak noted. Resting in bed comfortably, no acute distress. Continues to have productive cough. 04/20: Remains on nasal cannula. Chest tube in place, no air leak noted. Resting in bed comfortably. 04/24: RECONSULT NOTE: called emergently by Hospitalist team. patient with new acute respiratory distress. Chest x-ray demonstrates new large right-sided pneumothorax. I went to evaluate the patient is seen in significant distress. I emergently placed right-sided pigtail chest tube. Significant denney of air with no air leak on chest tube. Respiratory distress improved after chest tube placement. Repeat interval chest x-ray demonstrates good placement of chest tube with resolution of pneumothorax. 04/26/18: RECONSULT NOTE: [facility] reconsulted for rexpansion of right pneumothorax. Patient developed increased SOB today without improvement with nebulizer. STAT CXR Moderate to large right pneumothorax has redeveloped and with a probable tension component. He appears to be in moderate distress tachypneic. Patient was moved to the ICU where I evaluated the patient emergently. The right pigtail chest tube is still in place, minimal air leak. I flushed the chest tube but was difficult to withdraw air. I then pulled back the chest tube by approximately 3 cm. Able to withdraw air more easily and on connection to the Vacutainer again there was significant air leak in all chambers. Patient subjectively felt improvement in shortness of breath after chest tube placement. Stat repeat chest x-ray shows near complete reexpansion of the right knee 04/30/18: [facility] RECONSULT NOTE: Critical care, reconsult for worsening respiratory failure. I evaluate the patient urgently. He is very tachypneic diaphoretic. Chest x-ray today showed possible right upper lobe pneumothorax and increasing right effusion. I did an emergent bedside ultrasound which shows probably loculated complicated right pleural effusion. Patient likely needs more further imaging and procedures and in very labored breathing. Proceeded with endotracheal intubation in place patient on mechanical ventilation. I explained plan of care prior to intubation. He understands that he may need emergency chest tube placement and also may need surgical intervention 05/01/18: Patient remains intubated sedated. Hypotensive on 75 mcg/min of Beau- Synephrine. While sedated. CT chest showed severe right lower lung consolidation large pneumothorax/hydropneumothorax on the right side. Plan for large bore chest tube and central line today. Also cardiothoracic surgery was consulted, and I discussed with Dr. Schaeffer. I will plan for a large bore chest tube to the right side followed by a central line placement. 05/02/18: Patient remains intubated heavily sedated for vent synchrony. Right chest tube with large air leak in all chambers. There is possibility of bronchopleural fistula. Chest x-ray shows improved air entry right lung. Discussed with cardiothoracic surgery Dr. Ontiveros today. Will repeat CT scan to see if lung is reexpanding. May need decortication procedure 05/03/18: Patient remains intubated sedated persistent large air leak. CT reviewed with cardiothoracic surgery Dr. Ontiveros. Will discuss with Dr. Schaeffer in a.m. Probably will benefit from decortication due to the hydropneumothorax and persistent pleural effusions which probably are empyema. Otherwise patient remains critically ill clinically same. Bronc cultures growing staph aureus still 05/04/18: Patient remains sedated critically ill. Chest x-ray shows mostly expanded right lung but with persistent loculated apical pneumothorax and right lower effusion. Plan for surgical intervention by Dr. Schaeffer 05/05/2018 possible decortication. Continue broad-spectrum antibiotics 05/05: Remains sedated, orally intubated on mechanical ventilation. Awaiting OR today for decortication and drainage of loculated effusion and possible repair of air leak site. Objective Vital Signs / I&O: Vital Signs 05/04/18 10:00 05/04/18 11:00 05/04/18 11:02 Temperature Pulse Rate 112 H 109 H 109 H Respiratory Rate 19 18 18 Blood Pressure 109/72 100/65 Pulse Oximetry 96 96 97 05/04/18 12:00 05/04/18 13:00 05/04/18 14:00 Temperature Pulse Rate 109 H 108 H 108 H Respiratory Rate 18 18 18 Blood Pressure 109/75 97/68 L 105/73 Pulse Oximetry 97 97 97 05/04/18 14:26 05/04/18 15:00 05/04/18 16:00 Temperature Pulse Rate 109 H 108 H 108 H Respiratory Rate 18 18 18 Blood Pressure 102/70 100/67 Pulse Oximetry 97 97 05/04/18 16:08 05/04/18 17:00 05/04/18 18:00 Temperature Pulse Rate 109 H 110 H Respiratory Rate 18 18 18 Blood Pressure 106/76 108/76 Pulse Oximetry 97 96 96 05/04/18 19:00 05/04/18 19:29 05/04/18 19:34 Temperature Pulse Rate 114 H Respiratory Rate 18 18 Blood Pressure 99/56 L Pulse Oximetry 95 96 96 05/04/18 20:00 05/04/18 21:00 05/04/18 22:00 Temperature 98.3 F Pulse Rate 110 H 109 H 109 H Respiratory Rate 18 19 18 Blood Pressure 96/64 L 94/62 L 93/60 L Pulse Oximetry 97 96 96 05/04/18 23:00 05/04/18 23:20 05/05/18 00:00 Temperature 99.2 F Pulse Rate 111 H 113 H Respiratory Rate 18 18 18 Blood Pressure 96/62 L 90/60 L Pulse Oximetry 95 96 95 05/05/18 01:00 05/05/18 02:00 05/05/18 03:00 Temperature Pulse Rate 113 H 110 H 109 H Respiratory Rate 19 18 18 Blood Pressure 101/59 L 90/58 L 93/61 L Pulse Oximetry 95 95 95 05/05/18 03:06 05/05/18 04:00 05/05/18 05:00 Temperature 98.2 F Pulse Rate 108 H 104 H Respiratory Rate 18 18 18 Blood Pressure 91/59 L 91/56 L Pulse Oximetry 97 96 95 05/05/18 06:00 05/05/18 07:00 05/05/18 07:37 Temperature Pulse Rate 108 H 109 H Respiratory Rate 20 18 19 Blood Pressure 97/64 L 96/62 L Pulse Oximetry 96 95 95 05/05/18 08:00 Temperature 98.9 F Pulse Rate 111 H Respiratory Rate 20 Blood Pressure 95/63 L Pulse Oximetry 95 Intake & Output 05/04/18 05/05/18 05/05/18 18:59 06:59 18:59 Intake Total 1300 / 1300 600 / 600 Output Total 1600 / 1600 1200 / 1200 Balance -300 / -300 -600 / -600 Weight 75.5 kg Intake: IV 1300 / 1300 600 / 600 Versed Inj 100 mg In 100 ml @ 2 100 / 100 100 / 100 MG/HR 2 mls/hr IV.CONT TITRATE PRN Rx#:[id number] Neosynephrine Inj 40 MG In D5W 0 / 0 Inj 496 ML @ 40 MCG/MIN 30 mls/ hr IV.CONT TITRATE PRN Rx#: [id number] Diprivan 1000 mg/100 ml Inj 1, 200 / 200 100 / 100 000 mg In 100 ml @ 5 MCG/KG/MIN 2.265 mls/hr IV.CONT TITRATE PRN Rx#:[id number] Ofirmev Inj 1,000 mg In 100 ml 100 / 100 @ 400 mls/hr IV.SIG NOW ONE Rx# :[id number] Teflaro Inj 600 MG In NS Inj 100 / 100 100 / 100 100 ML @ 100 mls/hr IV.SIG Q12H [place] Rx#:[id number] Cubicin Inj 1,000 MG In NS Inj 100 / 100 100 ML @ 200 mls/hr IV.SIG Q24H [place] Rx#:[id number] Zyvox 600 mg Premix 300 ML @ 600 / 600 300 / 300 300 mls/hr IV.SIG Q12H [place] Rx#: [id number] KCl 40 mEq Premix Inj 40 meq In 100 / 100 100 ml @ 25 mls/hr IV.SIG UNSCH PRN Rx#:[id number] Oral 0 / 0 Output: Urine Amount (Catheter) 1600 / 1600 1200 / 1200 Straight 1600 / 1600 1200 / 1200 Other: Date of Last Bowel Movement 04/30/18 04/30/18 04/30/18 # Bowel Movements 0 Result Diagrams: 05/05/18 04:00 05/05/18 04:00 Imaging: Impressions Chest X-Ray 05/03/18 00:00 CONCLUSION: Lines and tubes appear appropriate in position. There is increased size of a right apical pneumothorax and increased pleural fluid. Resolving right-sided subcutaneous emphysema. Chest X-Ray 05/04/18 06:00 CONCLUSION: 1. No significant change is appreciated. Right chest tube remains present and there is a persistent right pneumothorax. 2. Stable right basilar opacity characteristic of pleural effusion with associated volume loss and/or airspace consolidation. The right upper lobe opacity is also stable. Chest X-Ray 05/05/18 06:00 CONCLUSION: 1. Stable right pleural effusion associated volume loss and/or airspace consolidation. 2. Right chest tube remains present and no pneumothorax is visualized. Objective Remarks: GENERAL: Patient is lying in bed in critically ill intubated heavily sedated SKIN: Warm and dry. HEAD: Atraumatic. Normocephalic. EYES: Pupils equal and round. No scleral icterus. ENT: No nasal bleeding or discharge. Mucous membranes moist. Orotracheally intubated NECK: Trachea midline. No JVD. CARDIOVASCULAR: S1-S2 normal no murmur RESPIRATORY: Intubated sedated. Coarse rhonchi and wheezes right lower lung and rhonchi in the left lung. Air entry diminished with right upper lung. Subcutaneous emphysema present on the right chest wall is improved. 28 Malaysian chest tube to the right with 1-2+ airleak GASTROINTESTINAL: Abdomen soft, non-tender, nondistended. no guarding. MUSCULOSKELETAL: Extremities without clubbing, cyanosis, or edema. No obvious deformities. NEUROLOGICAL: Intubated heavily sedated for vent synchrony with propofol and Versed. Moves all extremities withdraws to pain. No focal deficits Assessment and Plan - Problem List (1) Anaphylaxis Code(s): T78.2XXA - Anaphylactic shock, unspecified, initial encounter Status : Acute (2) COPD with acute exacerbation Code(s): J44.1 - Chronic obstructive pulmonary disease with (acute) exacerbation Status: Acute (3) Bilateral pneumonia Code(s): J18.9 - Pneumonia, unspecified organism Status: Acute (4) Allergic reaction caused by a drug Code(s): T78.40XA - Allergy, unspecified, initial encounter Status: Acute (5) Acute respiratory failure Code(s): J96.00 - Acute respiratory failure, unspecified whether with hypoxia or hypercapnia Status: Acute (6) Severe sepsis Code(s): A41.9 - Sepsis, unspecified organism; R65.20 - Severe sepsis without septic shock Status: Acute (7) Leukocytosis Code(s): D72.829 - Elevated white blood cell count, unspecified Status: Acute (8) Hypotension Code(s): I95.9 - Hypotension, unspecified Status: Acute (9) Acute kidney injury Code(s): N17.9 - Acute kidney failure, unspecified Status: Acute (10) Hyponatremia Code(s): E87.1 - Hypo-osmolality and hyponatremia Status: Acute (11) Hyperglycemia Code(s): R73.9 - Hyperglycemia, unspecified Status: Acute (12) History of hypertension Code(s): Z86.79 - Personal history of other diseases of the circulatory system Status: Chronic (13) Tobacco abuse Code(s): Z72.0 - Tobacco use Status: Chronic (14) History of COPD Code(s): Z87.09 - Personal history of other diseases of the respiratory system Status: Chronic - Assessment and Plan Plan: Assessment: 72-year-old male with known necrotizing MRSA pneumonia and hypoxemia requiring supplemental oxygenation now with acute respiratory distress secondary to acute right pneumothorax. Status post emergent chest tube decompression. Previously was transferred to [facility] now reconsulted 04/30/2018 now with what appears to be persistent right pneumothorax and loculated complicated right pleural effusion most likely parapneumonic. Intubated large bore chest tube placed 05/01/2018. Remains very critical with persistent air leak septic shock from necrotizing MRSA pneumonia. Prognosis appears guarded Active problems: Acute hypoxemic respiratory failure Persistent right-sided pneumothorax Right-sided complicated pleural effusion, probable empyema MRSA pneumonia with probable lung abscess Severe necrotizing pneumonia Probable septic emboli to the left lung Septic shock COPD with exacerbation MRSA bacteremia MRSA pneumonia Plan: NEURO: -Propofol and versed for sedation and ventilator synchrony -Daily sedation vacation after surgical interventions are completed RESP: -PRVC/AC, Ventilator bundle -DuoNeb every 4 hours scheduled and as needed -CT of the chest 04/30/2018 shows large persistent right pneumothorax pl effusion and significant right lower lung consolidation with probable cavitation /abscess -s/p 28 Malaysian chest tube to the right side, now with reexpansion of the lung but continued air leak -Dr. Carey did bronchoscopy- large amount of mucus plugging removed from right upper lobe -Repeat CT chest shows good reexpansion of the right lung. Persistent hydropneumothorax apically and right lower lung region. Loculated hydropneumothorax may be empyema -Infectious disease and Pulmonology is following. CT surgery following -Plan for OR for decortication 05/05/2018 -Continue antibiotics per ID CV: -Normal saline IV fluids 100 ml per hour -Beau-Synephrine if needed to keep map above 65 GI: -N.p.o. after midnight, IV famotidine : -Monitor renal function closely. Shine catheter in anticipation of ID: -Antibiotics per ID. Currently on Teflaro, Zyvox and daptomycin -Further cultures per ID -Thlnzqjrqexm-[id number] cultures -Plan for decortication procedure tomorrow HEME: -Monitor CBC, coags ENDO: -Electrolyte replacement per protocol -Sliding scale insulin if needed PROPH: -Bilateral lower extremity SCDs. Lovenox/famotidine. Hold Lovenox 05/03/2018 until surgical plans are defined LINES: -Utilize peripheral IVs, right subclavian central line placed 05/01/18 CC time 35 min excluding procedures This patient remains critically ill with one or more organ systems which are or may become a threat to life. I have spent in excess of 45 minutes discontinuously in the care and management of this patient. This time is exclusive of procedures, and includes, but is not limited to, evaluation of the patient, review of the medical record, discussions with family, consultants, nursing staff, or respiratory therapy, and documentation in the medical record. STAT CT showed Right-sided pigtail catheter in the right mid chest with a large right-sided pneumothorax remaining. There is extensive consolidation throughout the only aerated portions of the right lung with debris in the right bronchus and bronchus intermedius. There is multiloculated fluid collections in the right lower lobe and the right inferior lateral costophrenic angle could be multiloculated infection. After the CT was reviewed Dr. Bustos reevaluate the positioning of the chest tube and it was noted that the chest tube may be obstructed - flushed with normal saline and reopened the chest tube with now 1-2+ airleak. No need of additional chest tube at this time as the patient has no features of tension. Cardiothoracic surgery consulted for probable lung abscess and persistent pneumothorax Dr. Bustos updated patient's daughter on the phone 05/01/2018 (1) Anaphylaxis Qualifiers: Encounter type: initial encounter Qualified Code(s): T78.2XXA - Anaphylactic shock, unspecified, initial encounter (3) Bilateral pneumonia Qualifiers: Pneumonia type: due to unspecified organism Lung location: unspecified part of lung Qualified Code(s): J18.9 - Pneumonia, unspecified organism (4) Allergic reaction caused by a drug Qualifiers: Encounter type: initial encounter Qualified Code(s): T78.40XA - Allergy, unspecified, initial encounter (5) Acute respiratory failure Qualifiers: Respiratory failure complication: unspecified whether with hypoxia or hypercapnia Qualified Code(s): J96.00 - Acute respiratory failure, unspecified whether with hypoxia or hypercapnia (7) Leukocytosis Qualifiers: Leukocytosis type: unspecified Qualified Code(s): D72.829 - Elevated white blood cell count, unspecified (8) Hypotension Qualifiers: Hypotension type: unspecified hypotension type Qualified Code(s): I95.9 - Hypotension, unspecified
[2018-05-05] MEDS: Clindamycin 900 mg/NS Premix 900 MG/50 ML PIGGYBACK IV.SIG SCH ×2 (09:53→17:46)
[2018-05-05] MEDS ORDERED: fentaNYL Citrate Inj 250 MCG/5 ML Ampul ONE (10:23)
[2018-05-05] MEDS ORDERED: Phenylephrine/NS 1000 MCG/10ML Syringe IV.PUSH ONE (11:44)
[2018-05-05] MEDS ORDERED: Sodium Chlor 0.9% Inj 20 ML, Bupivacaine Liposo PF 1.3% Inj 20 ML, Dexamethasone PF Inj... IRRIGATION ONE ×4 (12:00)
--- NOTE | 2018-05-05 12:12 | P.PNWCN ---
Wound Care Nurse Consult Description: Received wound management consult from Doctor Bustos for R buttock area. Communicated with: Belem Berger RN and Doctor Bustos. Recommendation: 1. Please cleanse wound to L buttock area with normal saline only and pat dry. 2. Apply santyl to open wound bed. 3. Pack wound loosely with fluffed moistened gauze pad. 4. Apply Cavilon skin barrier film to DTI on R buttock and surrounding denuded skin 5. Apply optifoam gentle 6x6 over wound. 6. Change dressing daily. 7. Turn patient every 2 hours from L side to R side, limiting time spent on back to P.T., meals and patient care. 8. Do not use cotton pads on low airloss mattress. Wound/Pressure Injury - Wound Left Buttocks Wound Staging: Stage IV Wound Assessment: Ongoing Wound Type: Pressure Injury Is This a Chronic Wound: No Length (cm): 4 Width (cm): 3 Depth (cm): 0.7 Wound Bed Appearance: Arma, Yellow Wound Bed Appearance: Wound bed presents with ~20% fascia, 20% pink tissue and ~ 60% yellow dry slough. Surrounding Tissue Temperature: Warm Drainage Description: Serous Drainage Amount: None Drainage Odor: No Odor Dressing Status: Changed Cleansing Solution: Saline Cover Dressing: Bordered gauze Wound Dressing Change Date: 05/05/18 Wound Margin Description: Well defined Right Buttocks Wound Staging: DTI Wound Assessment: Ongoing Wound Type: Pressure Injury Requested from Provider a Wound Care Consult: Yes Length (cm): 4 Width (cm): 2 Depth (cm): 0 (non blanchable purple intact skin) Wound Bed Appearance: Wound presents as non blanchable purple intact skin that is moist Surrounding Tissue Appearance: Arma Surrounding Tissue Temperature: Warm Drainage Amount: None Drainage Odor: No Odor Dressing Status: Open to Air Topical: Cavilon skin barrier film - Additional Information Patient seen today on [facility] [place] for evaluation of R buttock wound.Patient was turned with the assistance of Veronica PAREKH C, principal technical writer and Silvia PAREKH toward the L side. Patient is noted with open wound on L buttock that presents as a stage IV pressure injury with mixed etilogy of moisture, pressure and friction. Wound bed present with ~20% fascia, 20% pink tissue and ~ 60% yellow dry slough Periwound is noted with moist peeling denuded skin with partial thickness skin loss at 5 o'clock. There is also a R buttock deep tissue injury that is moist. Open wound was to L buttock was cleansed with normal saline and patted dry. Cavilon skin barrier film was applied to periwound denuded skin and DTI. Wound was covered with 6x6 bordered gauze. Patient is currently intubated and sedated. Patient was positioned off bottom with pillow in place for support.Wound care recommendations, full wound description and measurements are noted above.
[2018-05-05] MEDS ORDERED: ceFAZolin 2 GM Premix Inj 2 GM/50 ML PIGGYBACK IV.SIG ONE (12:42)
[2018-05-05] MEDS ORDERED: Post-op Orders (for Pharmacy) OTHER STA (13:31)
--- NOTE | 2018-05-05 13:43 | P.OP ---
- Preoperative Diagnosis (1) Empyema (2) Bilateral pneumonia (3) Acute respiratory failure (4) Severe sepsis Postoperative Diagnosis: same Date of procedure: 05/05/18 Procedure: VATS decortication Anesthesia: MUMTAZA Surgeon: Angeli Victoria MD Clinical Research Manager: Vega Campa Estimated blood loss (mL): 50 Pathology: other (Pleural fluid sent for cultures and cytology, pleural biopsies and pleural peel also submitted for micro and path) Operation and Findings: Drains: 32F and 36F chest tubes Procedure Details After adequate general anesthesia the patient was placed in the left lateral decubitus position and the right chest was prepped and draped in usual manner. A small posterior port incision was performed and electrocautery was used to obtain hemostasis and carry the dissection down through the fascia. A 22G seeker needle was used initially posteriorly and cloudy yellow fluid was aspirated. fluid was submitted for laboratory analysis. ~50 ml of fluid was collected and submitted for cultures and cytology. A port was initially placed posteriorly followed by the camera. Visualization was somewhat difficult. Overall, ~250 ml of cloudy yellow effusion was drained. A second anterior port was positioned at ~6th intercostal space. Blunt dissection was used to mobilize the lower lobe and drain as much of the effusion as possible. Exploration of the right hemithorax was significant for marked inflammation with pleural thickening . Pleural biopsies were sent to Pathology. The lower lobe was decorticated by removing a thick pleural peel from the surface. Peel fragments were submitted for Pathology and cultures. The lung was re-inflated with reasonable expansion of the lower lobe. A 32F right angle chest tube was positioned through the anterior port. The old chest tube was replaced with a 36F anterior apical chest tube. Each was secured with sutures. The lung was ventilated and a small air leaks were noted. The subcutaneous tissues of the posterior port was approximated running 2-0 Vicryl suture and the skin was approximated using running 4-0 Monocryl subcuticular stitch. All sponge and history counts were correct at the close the procedure and the patient was transferred back to the [facility] [place]
[2018-05-05] MEDS: DAPTOmycin Inj 1,000 MG in Sodium Chlor 0.9% Inj 100 ML IV.SIG SCH (14:38)
[2018-05-05 15:52] LABS: Total Protein,Pleural Fluid 4.2 gm/dL
--- NOTE | 2018-05-05 16:55 | P.PNID ---
Subjective Remarks: remains on vent no fever SP VATS decortication by Dr Victoria on 05/05/18 Fungal clx from BAL grows yeast case was dw micro: ? R to zyvox in BAL clx from 05/01 04/28 ET clx S zyvox Antibiotics: n zyvox teflaro added 04/16 clindamycin added 05/05 Lines: Line sites okay Past Medical History: COPD Allergies/Adverse Reactions: Allergies bee venom protein (honey bee) Allergy (Unknown, Verified 04/05/18 21:12) Edema vancomycin Allergy (Verified 04/05/18 23:33) Anaphylaxis Objective Vital Signs 05/04/18 17:00 05/04/18 18:00 05/04/18 19:00 Temperature Pulse Rate 109 H 110 H 114 H Respiratory Rate 18 18 18 Blood Pressure 106/76 108/76 99/56 L Pulse Oximetry 96 96 95 05/04/18 19:29 05/04/18 19:34 05/04/18 20:00 Temperature 98.3 F Pulse Rate 110 H Respiratory Rate 18 18 Blood Pressure 96/64 L Pulse Oximetry 96 96 97 05/04/18 21:00 05/04/18 22:00 05/04/18 23:00 Temperature Pulse Rate 109 H 109 H 111 H Respiratory Rate 19 18 18 Blood Pressure 94/62 L 93/60 L 96/62 L Pulse Oximetry 96 96 95 05/04/18 23:20 05/05/18 00:00 05/05/18 01:00 Temperature 99.2 F Pulse Rate 113 H 113 H Respiratory Rate 18 18 19 Blood Pressure 90/60 L 101/59 L Pulse Oximetry 96 95 95 05/05/18 02:00 05/05/18 03:00 05/05/18 03:06 Temperature Pulse Rate 110 H 109 H Respiratory Rate 18 18 18 Blood Pressure 90/58 L 93/61 L Pulse Oximetry 95 95 97 05/05/18 04:00 05/05/18 05:00 05/05/18 06:00 Temperature 98.2 F Pulse Rate 108 H 104 H 108 H Respiratory Rate 18 18 20 Blood Pressure 91/59 L 91/56 L 97/64 L Pulse Oximetry 96 95 96 05/05/18 07:00 05/05/18 07:37 05/05/18 08:00 Temperature 98.9 F Pulse Rate 109 H 111 H Respiratory Rate 18 19 20 Blood Pressure 96/62 L 95/63 L Pulse Oximetry 95 95 95 05/05/18 09:00 05/05/18 10:00 05/05/18 10:46 Temperature Pulse Rate 104 H 115 H Respiratory Rate 24 23 21 Blood Pressure 88/62 L 93/66 L Pulse Oximetry 97 95 96 05/05/18 11:35 05/05/18 14:00 05/05/18 14:56 Temperature 98.9 F Pulse Rate 99 H 98 H Respiratory Rate 18 18 Blood Pressure 102/66 Pulse Oximetry 98 95 93 L 05/05/18 15:00 Temperature 98.9 F Pulse Rate 97 H Respiratory Rate 18 Blood Pressure 99/67 L Pulse Oximetry 100 Intake & Output 05/04/18 05/05/18 05/05/18 18:59 06:59 18:59 Intake Total 1300 / 1300 600 / 600 750 / 750 Output Total 1600 / 1600 1200 / 1200 150 / 150 Balance -300 / -300 -600 / -600 600 / 600 Weight 75.5 kg Intake: IV 1300 / 1300 600 / 600 150 / 150 Versed Inj 100 mg In 100 ml @ 2 100 / 100 100 / 100 MG/HR 2 mls/hr IV.CONT TITRATE PRN Rx#:[id number] Neosynephrine Inj 40 MG In D5W 0 / 0 Inj 496 ML @ 40 MCG/MIN 30 mls/ hr IV.CONT TITRATE PRN Rx#: [id number] Diprivan 1000 mg/100 ml Inj 1, 200 / 200 100 / 100 000 mg In 100 ml @ 5 MCG/KG/MIN 2.265 mls/hr IV.CONT TITRATE PRN Rx#:[id number] Ofirmev Inj 1,000 mg In 100 ml 100 / 100 @ 400 mls/hr IV.SIG NOW ONE Rx# :[id number] Teflaro Inj 600 MG In NS Inj 100 / 100 100 / 100 100 / 100 100 ML @ 100 mls/hr IV.SIG Q12H [facility] Rx#:[id number] Cleocin 900 mg/NS Premix 900 mg 50 / 50 In 50 ml @ 100 mls/hr IV.SIG Q8H [facility] Rx#:[id number] Cubicin Inj 1,000 MG In NS Inj 100 / 100 100 ML @ 200 mls/hr IV.SIG Q24H [facility] Rx#:[id number] Zyvox 600 mg Premix 300 ML @ 600 / 600 300 / 300 300 mls/hr IV.SIG Q12H [facility] Rx#: [id number] KCl 40 mEq Premix Inj 40 meq In 100 / 100 100 ml @ 25 mls/hr IV.SIG UNSCH PRN Rx#:[id number] Oral 0 / 0 Anesthesia Amount 600 / 600 Output: Estimated Blood Loss 50 / 50 Urine Amount (Catheter) 1600 / 1600 1200 / 1200 100 / 100 Indwelling Temp Sensing 100 / 100 Catheter Straight 1600 / 1600 1200 / 1200 Other: Date of Last Bowel Movement 04/30/18 04/30/18 04/30/18 # Bowel Movements 0 05/05/18 12:10 Tissue - Other Acid Fast Bacilli Smear - Pending 05/05/18 12:10 Tissue - Other Mycobacterial Culture - Pending 05/05/18 12:10 Tissue - Other Acid Fast Bacilli Smear - Pending 05/05/18 12:10 Tissue - Other Mycobacterial Culture - Pending 05/05/18 12:10 Tissue - Other Fungal Smear - Pending 05/05/18 12:10 Tissue - Other Fungal Culture - Pending 05/05/18 12:10 Tissue - Other Gram Stain - Pending 05/05/18 12:10 Tissue - Other Wound Culture - Pending 05/05/18 12:50 Fluid - Pleural fluid Fungal Smear - Pending 05/05/18 12:50 Fluid - Pleural fluid Fungal Culture - Pending 05/05/18 12:50 Fluid - Pleural fluid Acid Fast Bacilli Smear - Pending 05/05/18 12:50 Fluid - Pleural fluid Mycobacterial Culture - Pending 05/05/18 12:50 Fluid - Pleural fluid Gram Stain - Pending 05/05/18 12:50 Fluid - Pleural fluid Wound Culture - Pending 05/05/18 12:10 Tissue - Other Fungal Smear - Pending 05/05/18 12:10 Tissue - Other Fungal Culture - Pending 05/05/18 12:10 Tissue - Other Gram Stain - Pending 05/05/18 12:10 Tissue - Other Wound Culture - Pending 05/01/18 11:00 Bronchial Washings - Right Fungal Smear - Final No fungal elements seen 05/01/18 11:00 Bronchial Washings - Right Fungal Culture - Preliminary Yeast species 05/01/18 11:00 Bronchial - Right Gram Stain - Final 05/01/18 11:00 Bronchial - Right Bronchial Culture - Preliminary S. aureus MRSA 05/01/18 11:00 Bronchial Washings - Right Acid Fast Bacilli Smear - Final No acid fast bacilli seen 05/01/18 11:00 Bronchial Washings - Right Mycobacterial Culture - Pending 04/28/18 05:35 Sputum - Expectorated Sputum Gram Stain - Final 04/28/18 05:35 Sputum - Expectorated Sputum Sputum Culture - Final S. aureus MRSA Lab - Hematology Results 05/04/18 05/05/18 03:55 04:00 WBC 7.6 8.6 RBC 3.20 L 3.28 L Hgb 9.6 L 9.9 L Hct 28.5 L 29.3 L MCV 89.2 89.2 MCH 30.0 30.1 MCHC 33.6 33.8 RDW 14.7 14.8 Plt Count 224 D 264 MPV 8.2 8.0 Lab - Chemistry Results 05/03/18 05/04/18 05/05/18 23:28 03:55 04:00 Sodium 135 L 136 Potassium 3.5 3.6 Chloride 96 L 97 L Carbon Dioxide 31.5 30.8 Anion Gap 8 8 BUN 12 9 Creatinine 0.50 L 0.40 L Estimated GFR Greater than 89 Greater than 89 POC Glucose 117 H Random Glucose 95 89 Calcium 8.0 L 8.2 L Magnesium 1.9 2.0 Total Bilirubin 0.3 0.3 AST 55 H 59 H ALT 43 55 Alkaline Phosphatase 110 121 H Total Protein 5.9 L 6.3 L Albumin 1.4 L 1.4 L 05/05/18 14:49 Sodium Potassium Chloride Carbon Dioxide Anion Gap BUN Creatinine Estimated GFR POC Glucose 116 H Random Glucose Calcium Magnesium Total Bilirubin AST ALT Alkaline Phosphatase Total Protein Albumin Imaging: ITS Impressions Face CT 04/06/18 00:00 CONCLUSION: 1. Small focal area of soft tissue swelling involving the lateral orbital margin on the left. No abscess. Abdomen/Pelvis CT 04/10/18 00:00 CONCLUSION: 1. Findings in the patient's chest discussed on the patient's chest CT. 2. Left renal stone without hydronephrosis. 3. Slight AAA. 4. Possible gallstones within the gallbladder. 5. There is slight fluid within the peritoneal cavity in the pelvis and within left perinephric space and stranding densities involving the Gerota's fascia on the left side. The exact etiology is not certain could be inflammatory, and there is no hydronephrosis. Head MRI 04/12/18 00:00 CONCLUSION: 1. Some chronic changes with mild cortical and central atrophy. Minimal periventricular and scattered deep white matter tract areas of small vessel ischemic demyelination. 2. Some fluid or secretions identified in the dependent portion of the nasopharynx. 3. Otherwise negative. No findings of intracranial mass lesion/abscess. Lumbar Spine MRI 04/12/18 00:00 CONCLUSION: 1. No evidence of epidural abscess. 2. Grade 1 anterolisthesis at L5-S1 with associated discogenic degenerative changes and bilateral pars defects. There is significant bilateral bony neural foraminal stenosis with bilateral neural impingement. 3. Asymmetric ligamentum flavum hypertrophy on the right side at the L4-5 level flattens the dorsal lateral aspect of the thecal sac. Neural foramen remain patent. 4. Suggestion of distended urinary bladder, incompletely imaged in the field-of -view. Thoracic Spine MRI 04/12/18 00:00 CONCLUSION: 1. Small bilateral pleural effusions. 2. Spinal canal is widely patent throughout without cord compromise. No findings of a paravertebral abscess. Abdomen X-Ray 04/12/18 09:42 CONCLUSION: No evidence of ileus. Gallium Scan Nuclear Medicine 04/13/18 00:00 CONCLUSION: 1. There is abnormal uptake in the lungs corresponding to cavitary lesions probably lung abscesses and areas of consolidation seen on the patient's prior chest CT. Chest CT 05/02/18 00:00 CONCLUSION: 1. Overall improving exam with improved aeration of the right hemithorax. Persistent areas of loculated pleural effusion. These demonstrate foci of air within the right lower lobe and are concerning for abscess. Airspace abnormalities within the left hemithorax appears stable to smaller in size from prior exam. Chest X-Ray 05/05/18 06:00 CONCLUSION: 1. Stable right pleural effusion associated volume loss and/or airspace consolidation. 2. Right chest tube remains present and no pneumothorax is visualized. Physical Exam: GENERAL: NAD On vent SKIN: Warm and dry. No rash HEAD: Atraumatic. Normocephalic. EYES: Pupils equal and round. No scleral icterus. No injection or drainage. ENT: No nasal bleeding or discharge. Mucous membranes pink and moist. NECK: Trachea midline. No JVD. CARDIOVASCULAR: Regular rate and rhythm. RESPIRATORY: No accessory muscle use. R lung with decreased BS and extensive R sided CT GASTROINTESTINAL: Abdomen soft, non-tender, nondistended. MUSCULOSKELETAL: Extremities without clubbing, no cyanosis mild edema. 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
--- NOTE | 2018-05-05 17:59 | XR ---
EXAM DATE: 05/05/2018 5:42 PM EST AGE/SEX: 72 years / Male INDICATIONS: Post op thoracotomy. CLINICAL DATA: This is the patient's subsequent encounter. Patient reports that signs and symptoms h ave been present for 4 - 6 days and indicates a pain score of Nonresponsive. MEDICAL/SURGICAL HISTORY: . Chronic obstructive pulmonary disease. Hypertension. MRSA. . Ches t tube, right. COMPARISON: [facility], CHEST 1V SINGLE AP, 05/05/2018. . FINDINGS: The support devices remain in place. There is a right-sided chest tube in place. There may be a very small loculated pneumothorax in the right costophrenic angle with 9 mm of separation. There continues to be some parenchymal infiltrates in the right lung without significant change compared to the prio r study. The left lung is grossly clear and well-aerated and without significant change compared to t he prior study. The heart size is stable.. CONCLUSION: 1. There appears to be a very small right-sided loculated pneumothorax in the right costophrenic ang le with 9 mm of separation. There is a right-sided chest tube in place. 2. No change in the streaky parenchymal infiltrates in the right lung. Electronically signed by: Artemio Muñoz MD Board Certified Radiologist 05/05/2018 5:57 PM EST
[2018-05-05] MEDS: Collagenase Oint 30 GM Tube TOPICAL SCH (18:25)
--- NOTE | 2018-05-05 19:41 | P.PNPL ---
Subjective Interval history: 72 YOWM with MRSA Pn, cavitary lesion, COPD, Lt ptx mild sob Intbated Sedated had VATS, decortication Physical Exam Vital signs: Vital Signs 05/04/18 20:00 05/04/18 21:00 05/04/18 22:00 Temperature 98.3 F Pulse Rate 110 H 109 H 109 H Respiratory Rate 18 19 18 Blood Pressure 96/64 L 94/62 L 93/60 L Pulse Oximetry 97 96 96 05/04/18 23:00 05/04/18 23:20 05/05/18 00:00 Temperature 99.2 F Pulse Rate 111 H 113 H Respiratory Rate 18 18 18 Blood Pressure 96/62 L 90/60 L Pulse Oximetry 95 96 95 05/05/18 01:00 05/05/18 02:00 05/05/18 03:00 Temperature Pulse Rate 113 H 110 H 109 H Respiratory Rate 19 18 18 Blood Pressure 101/59 L 90/58 L 93/61 L Pulse Oximetry 95 95 95 05/05/18 03:06 05/05/18 04:00 05/05/18 05:00 Temperature 98.2 F Pulse Rate 108 H 104 H Respiratory Rate 18 18 18 Blood Pressure 91/59 L 91/56 L Pulse Oximetry 97 96 95 05/05/18 06:00 05/05/18 07:00 05/05/18 07:37 Temperature Pulse Rate 108 H 109 H Respiratory Rate 20 18 19 Blood Pressure 97/64 L 96/62 L Pulse Oximetry 96 95 95 05/05/18 08:00 05/05/18 09:00 05/05/18 10:00 Temperature 98.9 F Pulse Rate 111 H 104 H 115 H Respiratory Rate 20 24 23 Blood Pressure 95/63 L 88/62 L 93/66 L Pulse Oximetry 95 97 95 05/05/18 10:46 05/05/18 11:35 05/05/18 14:00 Temperature 98.9 F Pulse Rate 99 H Respiratory Rate 21 18 Blood Pressure 102/66 Pulse Oximetry 96 98 95 05/05/18 14:56 05/05/18 15:00 05/05/18 16:00 Temperature 98.9 F 98.9 F Pulse Rate 98 H 97 H 96 H Respiratory Rate 18 18 18 Blood Pressure 99/67 L 92/64 L Pulse Oximetry 93 L 100 98 05/05/18 17:00 05/05/18 18:00 05/05/18 19:00 Temperature 98.9 F Pulse Rate 100 H 104 H 106 H Respiratory Rate 18 18 18 Blood Pressure 89/62 L 91/62 L 89/53 L Pulse Oximetry 100 100 97 05/05/18 19:17 Temperature Pulse Rate Respiratory Rate 18 Blood Pressure Pulse Oximetry 98 Intake & Output 05/05/18 05/05/18 05/06/18 06:59 18:59 06:59 Intake Total 600 / 600 1300 / 1300 Output Total 1200 / 1200 525 / 525 Balance -600 / -600 775 / 775 Weight 75.5 kg Intake: IV 600 / 600 700 / 700 Versed Inj 100 mg In 100 ml @ 2 100 / 100 MG/HR 2 mls/hr IV.CONT TITRATE PRN Rx#:[id number] Diprivan 1000 mg/100 ml Inj 1, 100 / 100 100 / 100 000 mg In 100 ml @ 5 MCG/KG/MIN 2.265 mls/hr IV.CONT TITRATE PRN Rx#:[id number] Teflaro Inj 600 MG In NS Inj 100 / 100 100 / 100 100 ML @ 100 mls/hr IV.SIG Q12H [facility] Rx#:[id number] Cleocin 900 mg/NS Premix 900 mg 100 / 100 In 50 ml @ 100 mls/hr IV.SIG Q8H [facility] Rx#:[id number] Cubicin Inj 1,000 MG In NS Inj 100 / 100 100 ML @ 200 mls/hr IV.SIG Q24H [facility] Rx#:[id number] Zyvox 600 mg Premix 300 ML @ 300 / 300 300 / 300 300 mls/hr IV.SIG Q12H [facility] Rx#: [id number] Oral 0 / 0 Anesthesia Amount 600 / 600 Output: Estimated Blood Loss 50 / 50 Urine Amount (Catheter) 1200 / 1200 475 / 475 Indwelling Temp Sensing 475 / 475 Catheter Straight 1200 / 1200 Other: Date of Last Bowel Movement 04/30/18 04/30/18 # Bowel Movements 0 GENERAL: Elderly WM, on Vent SKIN: Warm and dry. HEAD: Normocephalic. EYES: No scleral icterus. No injection or drainage. NECK: Supple, trachea midline. No JVD or lymphadenopathy. CARDIOVASCULAR: Regular rate and rhythm without murmurs, gallops, or rubs. RESPIRATORY: Breath sounds equal bilaterally. No accessory muscle use. Rt chest tube to suction GASTROINTESTINAL: Abdomen soft, non-tender, nondistended. MUSCULOSKELETAL: No cyanosis, or edema. BACK: Nontender without obvious deformity. No CVA tenderness. - Urinary Catheter Management Indwelling Urethral Catheter Cath placed during this visit: yes, but has since been removed by the nurse Reason for continuing: Acute urinary retention Insertion date: 04/05/18 Insertion time: 23:00 Removal date: 04/12/18 Removal time: 08:30 Condom Cath placed during this visit: no Reason for continuing: Acute urinary retention Straight Cath placed during this visit: yes Reason for continuing: Hourly intake/output Insertion date: 05/05/18 Insertion time: 12:15 Indwelling Temp Sensing Catheter Cath placed during this visit: yes, but has since been removed by the nurse Reason for continuing: Hourly intake/output Insertion date: 05/05/18 Insertion time: 12:15 Removal date: 05/05/18 Removal time: 15:00 Assessment and Plan - Plan IMPRESSION: 1. MRSA pneumonia. 2. Cavitary pneumonia. 4. Chronic obstructive pulmonary disease. 5. Hypotension. 6. Left pneumothorax, status post chest tube.removal 7. Nicotine use. 8. Right Ptx 9. VDRF PLAN: Cont Abx per ID Ceftaroline, Zyvox, Daptomycin Aerosol nebs Vent Support Chest tube to suction
[2018-05-06] MEDS: Oral Hygiene Kit OROPHARYNG SCH ×3 (03:02→17:07)
[2018-05-06] MEDS: Clindamycin 900 mg/NS Premix 900 MG/50 ML PIGGYBACK IV.SIG SCH ×3 (03:02→17:07)
[2018-05-06] MEDS: Artificial Tears Opth Drops 15 ML Bottle EACH EYE SCH ×3 (04:20→20:15)
[2018-05-06 04:24] LABS: Baso % (Auto) 0.3 % (0.0-2.0); Eos # (Auto) 0.1 th/mm3 (0.0-0.4); Eos % (Auto) 0.9 % (0.0-4.0); Hematocrit 31.1 % (39.0-51.0); Hemoglobin 10.2 gm/dL (13.0-17.0); Lymph # (Auto) 1.1 th/mm3 (1.0-4.8); Lymph % (Auto) 9.2 % (9.0-44.0); Mean Corpuscular Volume 87.9 fL (80.0-100.0); Mean Platelet Volume 7.9 fL (7.0-11.0); Mono # (Auto) 1.3 th/mm3 (0.0-0.9); Mono % (Auto) 10.8 % (0.0-8.0); Neut # (Auto) 9.4 th/mm3 (1.8-7.7); Neut % (Auto) 78.8 % (16.0-70.0); Platelet Count 352 th/mm3 (150-450); Red Blood Count 3.54 mil/mm3 (4.50-5.90); Red Cell Distribution Width 14.6 % (11.6-17.2); White Blood Count 11.9 th/mm3 (4.0-11.0)
[2018-05-06 04:43] LABS: Anion Gap 8 meq/L (5-15); Blood Urea Nitrogen 12 mg/dL (7-18); Chloride 96 meq/L (98-107); Glomerular Filtration Rate Greater Than 89 mL/min (>89); Glucose,Random 99 mg/dL (74-106); Potassium 3.8 meq/L (3.5-5.1); Sodium 135 meq/L (136-145)
[2018-05-06] MEDS: Propofol 1000 mg/100 ml Inj 1,000 MG/100 ML BOTTLE IV.CONT PRN ×2 (06:47→17:38)
[2018-05-06] MEDS: Sennosides Liq 8.8 MG/5 ML UDC PO SCH (08:47)
[2018-05-06] MEDS: Sodium Chloride 0.9% 2 ML Flush BID IV.FLUSH SCH ×2 (08:47→20:14)
[2018-05-06] MEDS: guaiFENesin 600 MG ER Tablet PO SCH ×2 (08:47→20:14)
[2018-05-06] MEDS: Collagenase Oint 30 GM Tube TOPICAL SCH (08:48)
[2018-05-06] MEDS: Docusate Sodium 100 MG Capsule PO SCH ×2 (08:48→20:14)
[2018-05-06] MEDS: Chlorhexidine 0.12% Oral Kit 15 ML UDC OROPHARYNG SCH ×2 (08:48→20:14)
[2018-05-06] MEDS: Metoprolol Tartrate 100 MG Tablet PO SCH ×2 (08:48→20:14)
[2018-05-06] MEDS: Famotidine PF Inj 20 MG/2 ML Vial IV.PUSH SCH ×2 (10:03→20:15)
--- NOTE | 2018-05-06 11:31 | P.PNCV ---
- Note Subjective/Hospital Course: A 72-year-old male admitted on 04/05/2018 via the emergency department for shortness of breath, brought in by EMS with COPD exacerbation, also history of tobacco abuse. The patient became hypotensive, was found to have bilateral patchy infiltrates and was deemed septic from pneumonia, received immediate antibiotics. He also received a dose of vancomycin and apparently had some post maculopapular rash. He was emergently intubated and placed on ventilator by the emergency physician. Patient was successfully resuscitated with IV fluids, transferred to the emergency department where he remained on pressors. He was actually extubated on 04/14/2018 and was found to have developed a left- sided pneumothorax. A chest tube was placed and on 04/24/2018 patient went into acute respiratory distress. The chest x-ray showed a new right-sided pneumothorax and emergent right-sided chest tube was placed and respiratory distress improved after the placement and then on 04/26/2018 the patient had increasing shortness of breath despite nebulizer treatment. He was transferred again back to the ICU. The right chest tube was pulled back and adjusted with improved shortness of breath after the chest tube placement and on 04/30/2018 the patient apparently had increasing shortness of breath which showed a possible right upper lobe pneumothorax despite the chest tube and increasing effusion. Bedside ultrasound showed loculated complicated effusion. The patient was then reintubated and we were consulted to evaluate for right upper lobe loculated effusion. The patient now has [address] with air leak. He does have some subcutaneous emphysema. CT Chest 05/02 CONCLUSION: 1. Overall improving exam with improved aeration of the right hemithorax. Persistent areas of loculated pleural effusion. These demonstrate foci of air within the right lower lobe and are concerning for abscess. Airspace abnormalities within the left hemithorax appears stable to smaller in size from prior exam. 05/04 CT chest discussed with Dr Saenz results evaluated by Dr Victoria attempted to contact Daughter Liliana plan is for surgery in am Right thoracoscopic exploration with evacuation of loculated pleural effusion , possible decortication pt remains on vent sedated , right chest tube with + air leak / pig tail cath has been removed 05/05 - Preoperative Diagnosis (1) Empyema (2) Bilateral pneumonia (3) Acute respiratory failure (4) Severe sepsis R VATS decortication 05/06 remains sedated on vent 40%fio2 cultures path pending Vent per CCM [address], + 1 air leak no subq emphysema Objective: Vital Signs - 24 hr 05/05/18 11:35 05/05/18 14:00 05/05/18 14:56 Temperature 98.9 F Pulse Rate 99 H 98 H Respiratory Rate 18 18 Blood Pressure 102/66 Pulse Oximetry 98 95 93 L 05/05/18 15:00 05/05/18 16:00 05/05/18 17:00 Temperature 98.9 F 98.9 F 98.9 F Pulse Rate 97 H 96 H 100 H Respiratory Rate 18 18 18 Blood Pressure 99/67 L 92/64 L 89/62 L Pulse Oximetry 100 98 100 05/05/18 18:00 05/05/18 19:00 05/05/18 19:17 Temperature Pulse Rate 104 H 106 H Respiratory Rate 18 18 18 Blood Pressure 91/62 L 89/53 L Pulse Oximetry 100 97 98 05/05/18 20:00 05/05/18 21:00 05/05/18 22:00 Temperature 98.5 F Pulse Rate 112 H 115 H 113 H Respiratory Rate 18 18 18 Blood Pressure 94/62 L 92/56 L 93/65 L Pulse Oximetry 100 99 99 05/05/18 23:00 05/05/18 23:34 05/05/18 23:37 Temperature Pulse Rate 115 H 102 H Respiratory Rate 18 18 18 Blood Pressure 93/64 L Pulse Oximetry 98 100 05/06/18 00:00 05/06/18 01:00 05/06/18 02:00 Temperature 98.7 F Pulse Rate 117 H 115 H 114 H Respiratory Rate 18 18 18 Blood Pressure 95/65 L 99/64 L 91/62 L Pulse Oximetry 99 98 98 05/06/18 03:00 05/06/18 03:11 05/06/18 04:00 Temperature 98.6 F Pulse Rate 125 H 125 H Respiratory Rate 24 20 25 H Blood Pressure 96/63 L 100/64 Pulse Oximetry 94 L 96 95 05/06/18 04:33 05/06/18 05:00 05/06/18 06:00 Temperature Pulse Rate 122 H 123 H 119 H Respiratory Rate 18 18 18 Blood Pressure 96/64 L 96/67 L 99/68 L Pulse Oximetry 97 98 98 05/06/18 07:00 05/06/18 07:32 05/06/18 08:00 Temperature 99.4 F Pulse Rate 115 H 112 H 115 H Respiratory Rate 18 18 18 Blood Pressure 92/68 L 99/69 L Pulse Oximetry 97 97 98 05/06/18 09:00 05/06/18 10:00 05/06/18 11:06 Temperature Pulse Rate 113 H 112 H Respiratory Rate 18 18 18 Blood Pressure 103/71 99/68 L Pulse Oximetry 99 99 99 GENERAL: sedated on vent SKIN: Warm and dry. HEAD: Normocephalic. EYES: No scleral icterus. No injection or drainage. NECK: Supple, trachea midline. No JVD or lymphadenopathy. CARDIOVASCULAR: tachycardic Regular rate and rhythm without murmurs, gallops, or rubs. RESPIRATORY: coarse bilateral breath sounds chest tube x 2 to 20cm wall suction +1 air leak GASTROINTESTINAL: Abdomen soft, non-tender, nondistended. MUSCULOSKELETAL: No cyanosis, or edema. BACK: Nontender without obvious deformity. No CVA tenderness. Labs: Laboratory Results - last 12 hr 05/06/18 05/06/18 03:45 03:45 WBC 11.9 H RBC 3.54 L Hgb 10.2 L Hct 31.1 L MCV 87.9 MCH 29.0 MCHC 33.0 RDW 14.6 Plt Count 352 D MPV 7.9 Neut % (Auto) 78.8 H Lymph % (Auto) 9.2 Hemphill % (Auto) 10.8 H Eos % (Auto) 0.9 Baso % (Auto) 0.3 Neut # (Auto) 9.4 H Lymph # (Auto) 1.1 Hemphill # (Auto) 1.3 H Eos # (Auto) 0.1 Baso # (Auto) 0.0 WBC Differential . Differential Comment Auto diff final Sodium 135 L Potassium 3.8 Chloride 96 L Carbon Dioxide 31.0 Anion Gap 8 BUN 12 Creatinine 0.38 L Estimated GFR Greater than 89 Random Glucose 99 Calcium 8.0 L Result Diagrams: 05/06/18 03:45 05/06/18 03:45 - Plan (1) Bilateral pneumonia (2) Empyema lung Plan: s/p[ right vats leave chest tubes in place to suction vent per CCM antibiotics per ID (1) Bilateral pneumonia Qualifiers: Pneumonia type: due to unspecified organism Lung location: unspecified part of lung Qualified Code(s): J18.9 - Pneumonia, unspecified organism
[2018-05-06] MEDS: DAPTOmycin Inj 1,000 MG in Sodium Chlor 0.9% Inj 100 ML IV.SIG SCH (12:52)
--- NOTE | 2018-05-06 14:44 | XR ---
EXAM DATE: 05/06/2018 2:35 PM EST AGE/SEX: 72 years / Male INDICATIONS: Post right lung biopsy. CLINICAL DATA: This is the patient's initial encounter. Patient reports that signs and symptoms have been present for 1 day and indicates a pain score of Nonresponsive. MEDICAL/SURGICAL HISTORY: . Chronic obstructive pulmonary disease. Hypertension. MRSA. . Chest tube. COMPARISON: [facility] [place], CHEST 1V SINGLE AP, 05/05/2018. . FINDINGS: The endotracheal tubes in satisfactory position. There are 2 right-sided chest tubes in place. There is no pneumothorax evident. The right subclavian central lines in good position. There is a small right-sided effusion. There are atelectatic changes within the pulmonary parenchyma. There is minimal subcutaneous emphysema. There is mild hyperinflation of the left lung. CONCLUSION: Support equipment in satisfactory position. There are [address] on the right. No significant residual pneumothorax identified. Electronically signed by: Chester Raymond MD Board Certified Radiologist 05/06/2018 2:43 PM EST
--- NOTE | 2018-05-06 15:25 | P.PNCC ---
Subjective Subjective Remarks/Hospital Course: Patient is 72-year-old male with past medical history of COPD, tobacco abuse and hypertension who came to the emergency room for shortness of breath via EMS. On EMS arrival saturation was in the 90s, but patient had significant shortness of breath and dyspnea. Patient received Solu-Medrol 125 mg IV and breathing treatments by EMS and was brought to the emergency department. In the emergency department patient received further breathing treatments and chest x-ray showed patchy infiltrate on bilateral lung fitzgearld. Initially maintaining oxygen saturation with nasal cannula. Initial blood pressure was 85 /65, improved with normal saline boluses. WBC count was 17.1. Patient was deemed septic from pneumonia and patient was ordered to receive vancomycin and Zosyn. While receiving vancomycin patient acutely decompensated became extremely short of breath and developed erythematous maculopapular rash involving face torso armpits and groin region. Emergently intubated and placed on mechanical ventilation by the ED physician. Received IV 50 mg Benadryl. Critical care medicine was requested to admit the patient. I evaluated the patient immediately in the emergency department. Patient is intubated on Versed and fentanyl infusion however he is very asynchronous with the vent triggering ventilator alarms. Severe bilateral expiratory wheezing heard on auscultation. He has extensive skin rash predominantly face forehead torso armpit and groins. Appears like patient had anaphylactic reaction to vancomycin complicated by COPD exacerbation and pneumonia. I have ordered additional Solu-Medrol 100 mg x1 scheduled Benadryl and famotidine, antibiotics with cefepime and Levaquin. Increase Versed infusion, add propofol and use neuromuscular paralysis as needed. Will request pharmacy to add vancomycin to allergy. ED physician Dr. Slater had noticed that patient had some swelling on the left side of his face on arrival, however the skin rash after vancomycin was started was new. Patient remains hypotensive has received 2 L of normal saline in the emergency department and no significant urine output. I have ordered additional 2 L normal saline bolus and maintenance fluid at 84 mL/h. Use Levophed as needed to keep map above 65 Subjective 04/06: Off norepinephrine drip. Currently resting in bed in no acute distress on midazolam and fentanyl drips. Start tube feeding today. 04/07: Remains sedated, intubated on mechanical ventilation. Blood cultures growing MRSA 04/08: remains sedated and intubated. repeat cultures still growing MRSA 2/4 cultures. likely need to repeat BCx either today or tomorrow. agree with narrowing spectrum abx. performed DEEDEE at ID recommendation (need to r/o endocarditis), but no evidence of vegetations. remains hypoxic. off vasopressors today. 04/09: adequate auto-diuresis overnight. off vasopressors. on sedation vacation. hypoxia improving. 04/10 Patient remains intubated and sedated with Fentanyl infusion. Became tachycardic and tachypneic overnight requiring increase sedation. Afebrile. 04/11 Patient is intubated and sedated. Afebrile. 04/12 Patient remains intubated and sedated with Diprivan and Fentanyl infusion, Afebrile. 04/13: Sedated, easily arousable, orally intubated on mechanical ventilation. 04/14 Patient was extubated yesterday. Afebrile. 04/15 Patient is lying in bed in NAD. On 3L oxygen. Awake and alert. 04/16 Patient is on partial rebreather. Afebrile. Awake and alert. 04/17: Left-sided chest tube placed for pneumothorax yesterday. On nasal cannula currently. Awake and alert. Appears comfortable. No air leak noted in Pleur-evac 04/18: Remains on nasal cannula. No air leak noted from left-sided chest tube. 04/19: On 5 L nasal cannula. Chest tube in place, no air leak noted. Resting in bed comfortably, no acute distress. Continues to have productive cough. 04/20: Remains on nasal cannula. Chest tube in place, no air leak noted. Resting in bed comfortably. 04/24: RECONSULT NOTE: called emergently by Hospitalist team. patient with new acute respiratory distress. Chest x-ray demonstrates new large right-sided pneumothorax. I went to evaluate the patient is seen in significant distress. I emergently placed right-sided pigtail chest tube. Significant denney of air with no air leak on chest tube. Respiratory distress improved after chest tube placement. Repeat interval chest x-ray demonstrates good placement of chest tube with resolution of pneumothorax. 04/26/18: RECONSULT NOTE: [facility] reconsulted for rexpansion of right pneumothorax. Patient developed increased SOB today without improvement with nebulizer. STAT CXR Moderate to large right pneumothorax has redeveloped and with a probable tension component. He appears to be in moderate distress tachypneic. Patient was moved to the ICU where I evaluated the patient emergently. The right pigtail chest tube is still in place, minimal air leak. I flushed the chest tube but was difficult to withdraw air. I then pulled back the chest tube by approximately 3 cm. Able to withdraw air more easily and on connection to the Vacutainer again there was significant air leak in all chambers. Patient subjectively felt improvement in shortness of breath after chest tube placement. Stat repeat chest x-ray shows near complete reexpansion of the right knee 04/30/18: [facility] RECONSULT NOTE: Critical care, reconsult for worsening respiratory failure. I evaluate the patient urgently. He is very tachypneic diaphoretic. Chest x-ray today showed possible right upper lobe pneumothorax and increasing right effusion. I did an emergent bedside ultrasound which shows probably loculated complicated right pleural effusion. Patient likely needs more further imaging and procedures and in very labored breathing. Proceeded with endotracheal intubation in place patient on mechanical ventilation. I explained plan of care prior to intubation. He understands that he may need emergency chest tube placement and also may need surgical intervention 05/01/18: Patient remains intubated sedated. Hypotensive on 75 mcg/min of Beau- Synephrine. While sedated. CT chest showed severe right lower lung consolidation large pneumothorax/hydropneumothorax on the right side. Plan for large bore chest tube and central line today. Also cardiothoracic surgery was consulted, and I discussed with Dr. Schaeffer. I will plan for a large bore chest tube to the right side followed by a central line placement. 05/02/18: Patient remains intubated heavily sedated for vent synchrony. Right chest tube with large air leak in all chambers. There is possibility of bronchopleural fistula. Chest x-ray shows improved air entry right lung. Discussed with cardiothoracic surgery Dr. Ontiveros today. Will repeat CT scan to see if lung is reexpanding. May need decortication procedure 05/03/18: Patient remains intubated sedated persistent large air leak. CT reviewed with cardiothoracic surgery Dr. Ontiveros. Will discuss with Dr. Schaeffer in a.m. Probably will benefit from decortication due to the hydropneumothorax and persistent pleural effusions which probably are empyema. Otherwise patient remains critically ill clinically same. Bronc cultures growing staph aureus still 05/04/18: Patient remains sedated critically ill. Chest x-ray shows mostly expanded right lung but with persistent loculated apical pneumothorax and right lower effusion. Plan for surgical intervention by Dr. Schaeffer 05/05/2018 possible decortication. Continue broad-spectrum antibiotics 05/05: Remains sedated, orally intubated on mechanical ventilation. Awaiting OR today for decortication and drainage of loculated effusion and possible repair of air leak site. 05/06: Remains sedated, orally intubated on mechanical ventilation. Status post right VATS with decortication on 05/05. [address] on the right with positive air leak. Subcutaneous emphysema decreasing. Objective Vital Signs / I&O: Vital Signs 05/05/18 16:00 05/05/18 17:00 05/05/18 18:00 Temperature 98.9 F 98.9 F Pulse Rate 96 H 100 H 104 H Respiratory Rate 18 18 18 Blood Pressure 92/64 L 89/62 L 91/62 L Pulse Oximetry 98 100 100 05/05/18 19:00 05/05/18 19:17 05/05/18 20:00 Temperature 98.5 F Pulse Rate 106 H 112 H Respiratory Rate 18 18 18 Blood Pressure 89/53 L 94/62 L Pulse Oximetry 97 98 100 05/05/18 21:00 05/05/18 22:00 05/05/18 23:00 Temperature Pulse Rate 115 H 113 H 115 H Respiratory Rate 18 18 18 Blood Pressure 92/56 L 93/65 L 93/64 L Pulse Oximetry 99 99 98 05/05/18 23:34 05/05/18 23:37 05/06/18 00:00 Temperature 98.7 F Pulse Rate 102 H 117 H Respiratory Rate 18 18 18 Blood Pressure 95/65 L Pulse Oximetry 100 99 05/06/18 01:00 05/06/18 02:00 05/06/18 03:00 Temperature Pulse Rate 115 H 114 H 125 H Respiratory Rate 18 18 24 Blood Pressure 99/64 L 91/62 L 96/63 L Pulse Oximetry 98 98 94 L 05/06/18 03:11 05/06/18 04:00 05/06/18 04:33 Temperature 98.6 F Pulse Rate 125 H 122 H Respiratory Rate 20 25 H 18 Blood Pressure 100/64 96/64 L Pulse Oximetry 96 95 97 05/06/18 05:00 05/06/18 06:00 05/06/18 07:00 Temperature Pulse Rate 123 H 119 H 115 H Respiratory Rate 18 18 18 Blood Pressure 96/67 L 99/68 L 92/68 L Pulse Oximetry 98 98 97 05/06/18 07:32 05/06/18 08:00 05/06/18 09:00 Temperature 99.4 F Pulse Rate 112 H 115 H 113 H Respiratory Rate 18 18 18 Blood Pressure 99/69 L 103/71 Pulse Oximetry 97 98 99 05/06/18 10:00 05/06/18 11:00 05/06/18 11:06 Temperature Pulse Rate 112 H 109 H Respiratory Rate 18 18 18 Blood Pressure 99/68 L 93/68 L Pulse Oximetry 99 98 99 05/06/18 12:00 05/06/18 13:00 05/06/18 14:00 Temperature 99.6 F Pulse Rate 111 H 113 H 115 H Respiratory Rate 18 18 18 Blood Pressure 90/67 L 103/68 104/70 Pulse Oximetry 98 97 97 Intake & Output 05/05/18 05/06/18 05/06/18 18:59 06:59 18:59 Intake Total 1300 / 1300 950 / 950 350 / 350 Output Total 875 / 875 450 / 450 200 / 200 Balance 425 / 425 500 / 500 150 / 150 Weight 76 kg Intake: IV 700 / 700 950 / 950 350 / 350 Versed Inj 100 mg In 100 ml @ 2 100 / 100 MG/HR 2 mls/hr IV.CONT TITRATE PRN Rx#:[id number] Diprivan 1000 mg/100 ml Inj 1, 100 / 100 200 / 200 000 mg In 100 ml @ 5 MCG/KG/MIN 2.265 mls/hr IV.CONT TITRATE PRN Rx#:[id number] Teflaro Inj 600 MG In NS Inj 100 / 100 100 / 100 100 / 100 100 ML @ 100 mls/hr IV.SIG Q12H [facility] Rx#:[id number] Cleocin 900 mg/NS Premix 900 mg 100 / 100 50 / 50 50 / 50 In 50 ml @ 100 mls/hr IV.SIG Q8H [facility] Rx#:[id number] Cubicin Inj 1,000 MG In NS Inj 100 / 100 100 / 100 100 ML @ 200 mls/hr IV.SIG Q24H [facility] Rx#:[id number] Zyvox 600 mg Premix 300 ML @ 300 / 300 300 / 300 300 mls/hr IV.SIG Q12H [facility] Rx#: [id number] Ancef Inj 1,000 MG In NS Inj 200 / 200 100 / 100 100 ML @ 200 mls/hr IV.SIG Q8H [facility] Rx#:[id number] Anesthesia Amount 600 / 600 Output: Estimated Blood Loss 50 / 50 Urine Amount (Catheter) 475 / 475 450 / 450 Indwelling Temp Sensing 475 / 475 Catheter Straight 450 / 450 Chest Tube Drainage 350 / 350 200 / 200 Right Anterior Y Connected 350 / 350 200 / 200 Other: Date of Last Bowel Movement 04/30/18 04/30/18 04/30/18 # Bowel Movements 0 Result Diagrams: 05/06/18 03:45 05/06/18 03:45 Objective Remarks: GENERAL: Patient is lying in bed in critically ill intubated heavily sedated SKIN: Warm and dry. HEAD: Atraumatic. Normocephalic. EYES: Pupils equal and round. No scleral icterus. ENT: No nasal bleeding or discharge. Mucous membranes moist. Orotracheally intubated NECK: Trachea midline. No JVD. CARDIOVASCULAR: S1-S2 normal no murmur RESPIRATORY: Intubated sedated. Good air entry bilaterally, scattered rhonchi bilaterally. Dressing over surgical site, subcutaneous emphysema present on the right chest wall is improved. Chest tube x2 to the right with 1-2+ airleak GASTROINTESTINAL: Abdomen soft, non-tender, nondistended. no guarding. MUSCULOSKELETAL: Extremities without clubbing, cyanosis, or edema. No obvious deformities. NEUROLOGICAL: Intubated heavily sedated for vent synchrony with propofol and Versed. Moves all extremities withdraws to pain. No focal deficits Assessment and Plan - Problem List (1) Anaphylaxis Code(s): T78.2XXA - Anaphylactic shock, unspecified, initial encounter Status : Acute (2) COPD with acute exacerbation Code(s): J44.1 - Chronic obstructive pulmonary disease with (acute) exacerbation Status: Acute (3) Bilateral pneumonia Code(s): J18.9 - Pneumonia, unspecified organism Status: Acute (4) Allergic reaction caused by a drug Code(s): T78.40XA - Allergy, unspecified, initial encounter Status: Acute (5) Acute respiratory failure Code(s): J96.00 - Acute respiratory failure, unspecified whether with hypoxia or hypercapnia Status: Acute (6) Severe sepsis Code(s): A41.9 - Sepsis, unspecified organism; R65.20 - Severe sepsis without septic shock Status: Acute (7) Leukocytosis Code(s): D72.829 - Elevated white blood cell count, unspecified Status: Acute (8) Hypotension Code(s): I95.9 - Hypotension, unspecified Status: Acute (9) Acute kidney injury Code(s): N17.9 - Acute kidney failure, unspecified Status: Acute (10) Hyponatremia Code(s): E87.1 - Hypo-osmolality and hyponatremia Status: Acute (11) Hyperglycemia Code(s): R73.9 - Hyperglycemia, unspecified Status: Acute (12) History of hypertension Code(s): Z86.79 - Personal history of other diseases of the circulatory system Status: Chronic (13) Tobacco abuse Code(s): Z72.0 - Tobacco use Status: Chronic (14) History of COPD Code(s): Z87.09 - Personal history of other diseases of the respiratory system Status: Chronic - Assessment and Plan Plan: Assessment: 72-year-old male with known necrotizing MRSA pneumonia and hypoxemia requiring supplemental oxygenation now with acute respiratory distress secondary to acute right pneumothorax. Status post emergent chest tube decompression. Previously was transferred to [facility] now reconsulted 04/30/2018 now with what appears to be persistent right pneumothorax and loculated complicated right pleural effusion most likely parapneumonic. Intubated large bore chest tube placed 05/01/2018. Remains very critical with persistent air leak septic shock from necrotizing MRSA pneumonia. Prognosis appears guarded Active problems: Acute hypoxemic respiratory failure Persistent right-sided pneumothorax Right-sided complicated pleural effusion, probable empyema MRSA pneumonia with probable lung abscess Severe necrotizing pneumonia Probable septic emboli to the left lung Septic shock COPD with exacerbation MRSA bacteremia MRSA pneumonia Plan: NEURO: -Propofol and versed for sedation and ventilator synchrony -Daily sedation vacation after surgical interventions are completed RESP: -PRVC/AC, Ventilator bundle -DuoNeb every 4 hours scheduled and as needed -CT of the chest 04/30/2018 shows large persistent right pneumothorax pl effusion and significant right lower lung consolidation with probable cavitation /abscess -s/p 28 Hebrew chest tube to the right side, now with reexpansion of the lung but continued air leak -Dr. Carey did bronchoscopy- large amount of mucus plugging removed from right upper lobe -Repeat CT chest shows good reexpansion of the right lung. Persistent hydropneumothorax apically and right lower lung region. Loculated hydropneumothorax may be empyema -Infectious disease and Pulmonology is following. CT surgery following -Status post right VATS with decortication 05/05/2018 -Continue antibiotics per ID CV: -Normal saline IV fluids 100 ml per hour -Beau-Synephrine if needed to keep map above 65 GI: -N.p.o. after midnight, IV famotidine : -Monitor renal function closely. Shine catheter in anticipation of ID: -Antibiotics per ID. Currently on Zyvox -Further cultures per ID -[id number] cultures -Status post right VATS with decortication on 05/05 HEME: -Monitor CBC, coags ENDO: -Electrolyte replacement per protocol -Sliding scale insulin if needed PROPH: -Bilateral lower extremity SCDs. Lovenox/famotidine. Hold Lovenox 05/03/2018 until surgical plans are defined LINES: -Utilize peripheral IVs, right subclavian central line placed 05/01/18 CC time 35 min excluding procedures This patient remains critically ill with one or more organ systems which are or may become a threat to life. I have spent in excess of 45 minutes discontinuously in the care and management of this patient. This time is exclusive of procedures, and includes, but is not limited to, evaluation of the patient, review of the medical record, discussions with family, consultants, nursing staff, or respiratory therapy, and documentation in the medical record. STAT CT showed Right-sided pigtail catheter in the right mid chest with a large right-sided pneumothorax remaining. There is extensive consolidation throughout the only aerated portions of the right lung with debris in the right bronchus and bronchus intermedius. There is multiloculated fluid collections in the right lower lobe and the right inferior lateral costophrenic angle could be multiloculated infection. After the CT was reviewed Dr. Bustos reevaluate the positioning of the chest tube and it was noted that the chest tube may be obstructed - flushed with normal saline and reopened the chest tube with now 1-2+ airleak. No need of additional chest tube at this time as the patient has no features of tension. Cardiothoracic surgery consulted for probable lung abscess and persistent pneumothorax Dr. Bustos updated patient's daughter on the phone 05/01/2018 (1) Anaphylaxis Qualifiers: Encounter type: initial encounter Qualified Code(s): T78.2XXA - Anaphylactic shock, unspecified, initial encounter (3) Bilateral pneumonia Qualifiers: Pneumonia type: due to unspecified organism Lung location: unspecified part of lung Qualified Code(s): J18.9 - Pneumonia, unspecified organism (4) Allergic reaction caused by a drug Qualifiers: Encounter type: initial encounter Qualified Code(s): T78.40XA - Allergy, unspecified, initial encounter (5) Acute respiratory failure Qualifiers: Respiratory failure complication: unspecified whether with hypoxia or hypercapnia Qualified Code(s): J96.00 - Acute respiratory failure, unspecified whether with hypoxia or hypercapnia (7) Leukocytosis Qualifiers: Leukocytosis type: unspecified Qualified Code(s): D72.829 - Elevated white blood cell count, unspecified (8) Hypotension Qualifiers: Hypotension type: unspecified hypotension type Qualified Code(s): I95.9 - Hypotension, unspecified
--- NOTE | 2018-05-06 19:33 | P.PNPL ---
Subjective Interval history: 72 YOWM with MRSA Pn, cavitary lesion, COPD, Lt ptx mild sob Intbated Sedated Chest tube has airleak Has SQ Emphysema. Physical Exam Vital signs: Vital Signs 05/05/18 20:00 05/05/18 21:00 05/05/18 22:00 Temperature 98.5 F Pulse Rate 112 H 115 H 113 H Respiratory Rate 18 18 18 Blood Pressure 94/62 L 92/56 L 93/65 L Pulse Oximetry 100 99 99 05/05/18 23:00 05/05/18 23:34 05/05/18 23:37 Temperature Pulse Rate 115 H 102 H Respiratory Rate 18 18 18 Blood Pressure 93/64 L Pulse Oximetry 98 100 05/06/18 00:00 05/06/18 01:00 05/06/18 02:00 Temperature 98.7 F Pulse Rate 117 H 115 H 114 H Respiratory Rate 18 18 18 Blood Pressure 95/65 L 99/64 L 91/62 L Pulse Oximetry 99 98 98 05/06/18 03:00 05/06/18 03:11 05/06/18 04:00 Temperature 98.6 F Pulse Rate 125 H 125 H Respiratory Rate 24 20 25 H Blood Pressure 96/63 L 100/64 Pulse Oximetry 94 L 96 95 05/06/18 04:33 05/06/18 05:00 05/06/18 06:00 Temperature Pulse Rate 122 H 123 H 119 H Respiratory Rate 18 18 18 Blood Pressure 96/64 L 96/67 L 99/68 L Pulse Oximetry 97 98 98 05/06/18 07:00 05/06/18 07:32 05/06/18 08:00 Temperature 99.4 F Pulse Rate 115 H 112 H 115 H Respiratory Rate 18 18 18 Blood Pressure 92/68 L 99/69 L Pulse Oximetry 97 97 98 05/06/18 09:00 05/06/18 10:00 05/06/18 11:00 Temperature Pulse Rate 113 H 112 H 109 H Respiratory Rate 18 18 18 Blood Pressure 103/71 99/68 L 93/68 L Pulse Oximetry 99 99 98 05/06/18 11:06 05/06/18 12:00 05/06/18 13:00 Temperature 99.6 F Pulse Rate 111 H 113 H Respiratory Rate 18 18 18 Blood Pressure 90/67 L 103/68 Pulse Oximetry 99 98 97 05/06/18 14:00 05/06/18 15:00 05/06/18 15:33 Temperature Pulse Rate 115 H 112 H 111 H Respiratory Rate 18 18 19 Blood Pressure 104/70 104/72 Pulse Oximetry 97 99 05/06/18 15:36 05/06/18 16:00 05/06/18 17:00 Temperature 99.1 F Pulse Rate 112 H 112 H Respiratory Rate 19 18 18 Blood Pressure 100/69 113/78 Pulse Oximetry 98 97 99 05/06/18 18:00 Temperature Pulse Rate 114 H Respiratory Rate 18 Blood Pressure 103/78 Pulse Oximetry 98 Intake & Output 05/06/18 05/06/18 05/07/18 06:59 18:59 06:59 Intake Total 950 / 950 900 / 900 Output Total 450 / 450 1625 / 1625 Balance 500 / 500 -725 / -725 Weight 76 kg Intake: IV 950 / 950 800 / 800 Versed Inj 100 mg In 100 ml @ 2 100 / 100 MG/HR 2 mls/hr IV.CONT TITRATE PRN Rx#:[id number] Diprivan 1000 mg/100 ml Inj 1, 200 / 200 100 / 100 000 mg In 100 ml @ 5 MCG/KG/MIN 2.265 mls/hr IV.CONT TITRATE PRN Rx#:[id number] Teflaro Inj 600 MG In NS Inj 100 / 100 100 / 100 100 ML @ 100 mls/hr IV.SIG Q12H [facility] Rx#:[id number] Cleocin 900 mg/NS Premix 900 mg 50 / 50 100 / 100 In 50 ml @ 100 mls/hr IV.SIG Q8H [facility] Rx#:[id number] Cubicin Inj 1,000 MG In NS Inj 100 / 100 100 ML @ 200 mls/hr IV.SIG Q24H [facility] Rx#:[id number] Zyvox 600 mg Premix 300 ML @ 300 / 300 300 / 300 300 mls/hr IV.SIG Q12H [facility] Rx#: [id number] Ancef Inj 1,000 MG In NS Inj 200 / 200 100 / 100 100 ML @ 200 mls/hr IV.SIG Q8H [facility] Rx#:[id number] Tube Irrigant 100 / 100 Output: Urine Amount (Catheter) 450 / 450 1275 / 1275 Straight 450 / 450 1275 / 1275 Chest Tube Drainage 350 / 350 Right Anterior Y Connected 350 / 350 Other: Date of Last Bowel Movement 04/30/18 04/30/18 # Bowel Movements 0 GENERAL: Elderly WM on Vent, sedated SKIN: Warm and dry. HEAD: Normocephalic. EYES: No scleral icterus. No injection or drainage. NECK: Supple, trachea midline. No JVD or lymphadenopathy. CARDIOVASCULAR: Regular rate and rhythm without murmurs, gallops, or rubs. RESPIRATORY: Breath sounds equal bilaterally. No accessory muscle use. Has Chest tube with airleak. GASTROINTESTINAL: Abdomen soft, non-tender, nondistended. MUSCULOSKELETAL: No cyanosis, or edema. BACK: Nontender without obvious deformity. No CVA tenderness. - Urinary Catheter Management Indwelling Urethral Catheter Cath placed during this visit: yes, but has since been removed by the nurse Reason for continuing: Acute urinary retention Insertion date: 04/05/18 Insertion time: 23:00 Removal date: 04/12/18 Removal time: 08:30 Condom Cath placed during this visit: no Reason for continuing: Acute urinary retention Straight Cath placed during this visit: yes, but has since been removed by the nurse Reason for continuing: Not indwelling catheter Insertion date: 05/06/18 Insertion time: 18:00 Removal date: 05/06/18 Removal time: 18:10 Indwelling Temp Sensing Catheter Cath placed during this visit: yes, but has since been removed by the nurse Reason for continuing: Hourly intake/output Insertion date: 05/05/18 Insertion time: 12:15 Removal date: 05/05/18 Removal time: 15:00 Assessment and Plan - Plan IMPRESSION: 1. MRSA pneumonia. 2. Cavitary pneumonia. 4. Chronic obstructive pulmonary disease. 5. Hypotension. 6. Left pneumothorax, status post chest tube.removal 7. Nicotine use. 8. Right Ptx 9. VDRF PLAN: Cont Abx per ID Aerosol nebs Vent Support Chest tube to suction Sedation vacation.
[2018-05-07] MEDS: Oral Hygiene Kit OROPHARYNG SCH ×4 (02:07→15:48)
[2018-05-07] MEDS: Clindamycin 900 mg/NS Premix 900 MG/50 ML PIGGYBACK IV.SIG SCH ×3 (02:11→17:58)
[2018-05-07] MEDS: Propofol 1000 mg/100 ml Inj 1,000 MG/100 ML BOTTLE IV.CONT PRN ×2 (03:42→20:31)
--- NOTE | 2018-05-07 04:40 | XR ---
EXAM DATE: 05/07/2018 4:24 AM EST AGE/SEX: 72 years / Male INDICATIONS: Shortness of breath, possible pulmonary disease. CLINICAL DATA: This is the patient's subsequent encounter. Patient reports that signs and symptoms h ave been present for 1 month and indicates a pain score of Nonresponsive. MEDICAL/SURGICAL HISTORY: Chronic obstructive pulmonary disease. Hypertension. MRSA. Chest tu be, right. Thoracotomy. COMPARISON: [facility] [place], CHEST 1V SINGLE AP, 05/06/2018. . FINDINGS: Portable AP view of the chest demonstrates a normal-sized cardiac silhouette. ETT, nasogastric tube, and right central line remain present. There are 2 right chest tubes in place and no definite pneumot horax is seen. There is a stable parenchymal opacity in the right lung apex with a small right basila r pleural-parenchymal opacity. Bones demonstrate no acute finding. There is right chest wall subcutan eous emphysema. CONCLUSION: 1. 2 right chest tubes are present and no pneumothorax is visualized. 2. Stable right apex parenchymal opacity and small right basilar opacity. Electronically signed by: Akash Odell MD Board Certified Radiologist 05/07/2018 4:39 AM EST
[2018-05-07] MEDS: Artificial Tears Opth Drops 15 ML Bottle EACH EYE SCH ×3 (05:02→22:08)
[2018-05-07] MEDS: Chlorhexidine 0.12% Oral Kit 15 ML UDC OROPHARYNG SCH ×2 (08:00→22:07)
--- NOTE | 2018-05-07 08:13 | P.PNCC ---
Subjective Subjective Remarks/Hospital Course: Patient is 72-year-old male with past medical history of COPD, tobacco abuse and hypertension who came to the emergency room for shortness of breath via EMS. On EMS arrival saturation was in the 90s, but patient had significant shortness of breath and dyspnea. Patient received Solu-Medrol 125 mg IV and breathing treatments by EMS and was brought to the emergency department. In the emergency department patient received further breathing treatments and chest x-ray showed patchy infiltrate on bilateral lung fitzgerald. Initially maintaining oxygen saturation with nasal cannula. Initial blood pressure was 85 /65, improved with normal saline boluses. WBC count was 17.1. Patient was deemed septic from pneumonia and patient was ordered to receive vancomycin and Zosyn. While receiving vancomycin patient acutely decompensated became extremely short of breath and developed erythematous maculopapular rash involving face torso armpits and groin region. Emergently intubated and placed on mechanical ventilation by the ED physician. Received IV 50 mg Benadryl. Critical care medicine was requested to admit the patient. I evaluated the patient immediately in the emergency department. Patient is intubated on Versed and fentanyl infusion however he is very asynchronous with the vent triggering ventilator alarms. Severe bilateral expiratory wheezing heard on auscultation. He has extensive skin rash predominantly face forehead torso armpit and groins. Appears like patient had anaphylactic reaction to vancomycin complicated by COPD exacerbation and pneumonia. I have ordered additional Solu-Medrol 100 mg x1 scheduled Benadryl and famotidine, antibiotics with cefepime and Levaquin. Increase Versed infusion, add propofol and use neuromuscular paralysis as needed. Will request pharmacy to add vancomycin to allergy. ED physician Dr. Slater had noticed that patient had some swelling on the left side of his face on arrival, however the skin rash after vancomycin was started was new. Patient remains hypotensive has received 2 L of normal saline in the emergency department and no significant urine output. I have ordered additional 2 L normal saline bolus and maintenance fluid at 84 mL/h. Use Levophed as needed to keep map above 65 Subjective 04/06: Off norepinephrine drip. Currently resting in bed in no acute distress on midazolam and fentanyl drips. Start tube feeding today. 04/07: Remains sedated, intubated on mechanical ventilation. Blood cultures growing MRSA 04/08: remains sedated and intubated. repeat cultures still growing MRSA 2/4 cultures. likely need to repeat BCx either today or tomorrow. agree with narrowing spectrum abx. performed DEEDEE at ID recommendation (need to r/o endocarditis), but no evidence of vegetations. remains hypoxic. off vasopressors today. 04/09: adequate auto-diuresis overnight. off vasopressors. on sedation vacation. hypoxia improving. 04/10 Patient remains intubated and sedated with Fentanyl infusion. Became tachycardic and tachypneic overnight requiring increase sedation. Afebrile. 04/11 Patient is intubated and sedated. Afebrile. 04/12 Patient remains intubated and sedated with Diprivan and Fentanyl infusion, Afebrile. 04/13: Sedated, easily arousable, orally intubated on mechanical ventilation. 04/14 Patient was extubated yesterday. Afebrile. 04/15 Patient is lying in bed in NAD. On 3L oxygen. Awake and alert. 04/16 Patient is on partial rebreather. Afebrile. Awake and alert. 04/17: Left-sided chest tube placed for pneumothorax yesterday. On nasal cannula currently. Awake and alert. Appears comfortable. No air leak noted in Pleur-evac 04/18: Remains on nasal cannula. No air leak noted from left-sided chest tube. 04/19: On 5 L nasal cannula. Chest tube in place, no air leak noted. Resting in bed comfortably, no acute distress. Continues to have productive cough. 04/20: Remains on nasal cannula. Chest tube in place, no air leak noted. Resting in bed comfortably. 04/24: RECONSULT NOTE: called emergently by Hospitalist team. patient with new acute respiratory distress. Chest x-ray demonstrates new large right-sided pneumothorax. I went to evaluate the patient is seen in significant distress. I emergently placed right-sided pigtail chest tube. Significant denney of air with no air leak on chest tube. Respiratory distress improved after chest tube placement. Repeat interval chest x-ray demonstrates good placement of chest tube with resolution of pneumothorax. 04/26/18: RECONSULT NOTE: [facility] reconsulted for rexpansion of right pneumothorax. Patient developed increased SOB today without improvement with nebulizer. STAT CXR Moderate to large right pneumothorax has redeveloped and with a probable tension component. He appears to be in moderate distress tachypneic. Patient was moved to the ICU where I evaluated the patient emergently. The right pigtail chest tube is still in place, minimal air leak. I flushed the chest tube but was difficult to withdraw air. I then pulled back the chest tube by approximately 3 cm. Able to withdraw air more easily and on connection to the Vacutainer again there was significant air leak in all chambers. Patient subjectively felt improvement in shortness of breath after chest tube placement. Stat repeat chest x-ray shows near complete reexpansion of the right knee 04/30/18: [facility] RECONSULT NOTE: Critical care, reconsult for worsening respiratory failure. I evaluate the patient urgently. He is very tachypneic diaphoretic. Chest x-ray today showed possible right upper lobe pneumothorax and increasing right effusion. I did an emergent bedside ultrasound which shows probably loculated complicated right pleural effusion. Patient likely needs more further imaging and procedures and in very labored breathing. Proceeded with endotracheal intubation in place patient on mechanical ventilation. I explained plan of care prior to intubation. He understands that he may need emergency chest tube placement and also may need surgical intervention 05/01/18: Patient remains intubated sedated. Hypotensive on 75 mcg/min of Beau- Synephrine. While sedated. CT chest showed severe right lower lung consolidation large pneumothorax/hydropneumothorax on the right side. Plan for large bore chest tube and central line today. Also cardiothoracic surgery was consulted, and I discussed with Dr. Schaeffer. I will plan for a large bore chest tube to the right side followed by a central line placement. 05/02/18: Patient remains intubated heavily sedated for vent synchrony. Right chest tube with large air leak in all chambers. There is possibility of bronchopleural fistula. Chest x-ray shows improved air entry right lung. Discussed with cardiothoracic surgery Dr. Ontiveros today. Will repeat CT scan to see if lung is reexpanding. May need decortication procedure 05/03/18: Patient remains intubated sedated persistent large air leak. CT reviewed with cardiothoracic surgery Dr. Ontiveros. Will discuss with Dr. Schaeffer in a.m. Probably will benefit from decortication due to the hydropneumothorax and persistent pleural effusions which probably are empyema. Otherwise patient remains critically ill clinically same. Bronc cultures growing staph aureus still 05/04/18: Patient remains sedated critically ill. Chest x-ray shows mostly expanded right lung but with persistent loculated apical pneumothorax and right lower effusion. Plan for surgical intervention by Dr. Schaeffer 05/05/2018 possible decortication. Continue broad-spectrum antibiotics 05/05: Remains sedated, orally intubated on mechanical ventilation. Awaiting OR today for decortication and drainage of loculated effusion and possible repair of air leak site. 05/06: Remains sedated, orally intubated on mechanical ventilation. Status post right VATS with decortication on 05/05. [address] on the right with positive air leak. Subcutaneous emphysema decreasing. 05/07: Remains sedated, orally intubated on mechanical ventilation. Status post right VATS with decortication on 05/05. [address] on the right with positive air leak. Starting tube feeds and CPAP trials Objective Vital Signs / I&O: Vital Signs 05/06/18 09:00 05/06/18 10:00 05/06/18 11:00 Temperature Pulse Rate 113 H 112 H 109 H Respiratory Rate 18 18 18 Blood Pressure 103/71 99/68 L 93/68 L Pulse Oximetry 99 99 98 05/06/18 11:06 05/06/18 12:00 05/06/18 13:00 Temperature 99.6 F Pulse Rate 111 H 113 H Respiratory Rate 18 18 18 Blood Pressure 90/67 L 103/68 Pulse Oximetry 99 98 97 05/06/18 14:00 05/06/18 15:00 05/06/18 15:33 Temperature Pulse Rate 115 H 112 H 111 H Respiratory Rate 18 18 19 Blood Pressure 104/70 104/72 Pulse Oximetry 97 99 05/06/18 15:36 05/06/18 16:00 05/06/18 17:00 Temperature 99.1 F Pulse Rate 112 H 112 H Respiratory Rate 19 18 18 Blood Pressure 100/69 113/78 Pulse Oximetry 98 97 99 05/06/18 18:00 05/06/18 19:00 05/06/18 20:00 Temperature 98.9 F Pulse Rate 114 H 114 H 113 H Respiratory Rate 18 18 18 Blood Pressure 103/78 107/74 112/78 Pulse Oximetry 98 98 98 05/06/18 20:19 05/06/18 21:00 05/06/18 22:00 Temperature Pulse Rate 105 H 114 H 113 H Respiratory Rate 20 18 18 Blood Pressure 101/74 97/73 L Pulse Oximetry 99 98 05/06/18 23:00 05/06/18 23:24 05/07/18 00:00 Temperature Pulse Rate 113 H 113 H Respiratory Rate 18 18 18 Blood Pressure 97/71 L 107/73 Pulse Oximetry 98 98 98 05/07/18 01:00 05/07/18 02:00 05/07/18 03:00 Temperature Pulse Rate 113 H 114 H 106 H Respiratory Rate 18 18 20 Blood Pressure 101/71 107/76 102/69 Pulse Oximetry 98 98 98 05/07/18 04:00 05/07/18 04:02 05/07/18 05:00 Temperature Pulse Rate 111 H 113 H Respiratory Rate 18 20 18 Blood Pressure 107/76 107/72 Pulse Oximetry 98 98 98 05/07/18 06:00 05/07/18 07:40 Temperature Pulse Rate 110 H 108 H Respiratory Rate 18 20 Blood Pressure 98/66 L Pulse Oximetry 98 97 Intake & Output 05/06/18 05/07/18 05/07/18 18:59 06:59 18:59 Intake Total 900 / 900 550 / 550 Output Total 1625 / 1625 870 / 870 Balance -725 / -725 -320 / -320 Weight 71.5 kg Intake: IV 800 / 800 550 / 550 Diprivan 1000 mg/100 ml Inj 1, 100 / 100 100 / 100 000 mg In 100 ml @ 5 MCG/KG/MIN 2.265 mls/hr IV.CONT TITRATE PRN Rx#:[id number] Teflaro Inj 600 MG In NS Inj 100 / 100 100 / 100 100 ML @ 100 mls/hr IV.SIG Q12H [facility] Rx#:[id number] Cleocin 900 mg/NS Premix 900 mg 100 / 100 50 / 50 In 50 ml @ 100 mls/hr IV.SIG Q8H [facility] Rx#:[id number] Cubicin Inj 1,000 MG In NS Inj 100 / 100 100 ML @ 200 mls/hr IV.SIG Q24H [facility] Rx#:[id number] Zyvox 600 mg Premix 300 ML @ 300 / 300 300 / 300 300 mls/hr IV.SIG Q12H [facility] Rx#: [id number] Ancef Inj 1,000 MG In NS Inj 100 / 100 100 ML @ 200 mls/hr IV.SIG Q8H [facility] Rx#:[id number] Tube Irrigant 100 / 100 Output: Urine Amount (Catheter) 1275 / 1275 760 / 760 Straight 1275 / 1275 760 / 760 Chest Tube Drainage 350 / 350 110 / 110 Right Anterior Y Connected 350 / 350 110 / 110 Other: Date of Last Bowel Movement 04/30/18 04/30/18 # Bowel Movements 0 Result Diagrams: 05/06/18 03:45 05/06/18 03:45 Objective Remarks: GENERAL: Patient is lying in bed in critically ill intubated, sedated SKIN: Warm and dry. HEAD: Atraumatic. Normocephalic. EYES: Pupils equal and round. No scleral icterus. ENT: No nasal bleeding or discharge. Mucous membranes moist. Orotracheally intubated NECK: Trachea midline. No JVD. CARDIOVASCULAR: S1-S2 normal no murmur RESPIRATORY: Intubated sedated. Good air entry bilaterally, scattered rhonchi bilaterally. Dressing over surgical site, subcutaneous emphysema present on the right chest wall is improved. Chest tube x2 to the right with 1-2+ airleak GASTROINTESTINAL: Abdomen soft, non-tender, nondistended. no guarding. MUSCULOSKELETAL: Extremities without clubbing, cyanosis, or edema. No obvious deformities. NEUROLOGICAL: Intubated heavily sedated for vent synchrony with propofol and Versed. Moves all extremities withdraws to pain. No focal deficits Assessment and Plan - Problem List (1) Anaphylaxis Code(s): T78.2XXA - Anaphylactic shock, unspecified, initial encounter Status : Acute (2) COPD with acute exacerbation Code(s): J44.1 - Chronic obstructive pulmonary disease with (acute) exacerbation Status: Acute (3) Bilateral pneumonia Code(s): J18.9 - Pneumonia, unspecified organism Status: Acute (4) Allergic reaction caused by a drug Code(s): T78.40XA - Allergy, unspecified, initial encounter Status: Acute (5) Acute respiratory failure Code(s): J96.00 - Acute respiratory failure, unspecified whether with hypoxia or hypercapnia Status: Acute (6) Severe sepsis Code(s): A41.9 - Sepsis, unspecified organism; R65.20 - Severe sepsis without septic shock Status: Acute (7) Leukocytosis Code(s): D72.829 - Elevated white blood cell count, unspecified Status: Acute (8) Hypotension Code(s): I95.9 - Hypotension, unspecified Status: Acute (9) Acute kidney injury Code(s): N17.9 - Acute kidney failure, unspecified Status: Acute (10) Hyponatremia Code(s): E87.1 - Hypo-osmolality and hyponatremia Status: Acute (11) Hyperglycemia Code(s): R73.9 - Hyperglycemia, unspecified Status: Acute (12) History of hypertension Code(s): Z86.79 - Personal history of other diseases of the circulatory system Status: Chronic (13) Tobacco abuse Code(s): Z72.0 - Tobacco use Status: Chronic (14) History of COPD Code(s): Z87.09 - Personal history of other diseases of the respiratory system Status: Chronic - Assessment and Plan Plan: Assessment: 72-year-old male with known necrotizing MRSA pneumonia and hypoxemia requiring supplemental oxygenation now with acute respiratory distress secondary to acute right pneumothorax. Status post emergent chest tube decompression. Previously was transferred to [facility] service now reconsulted 04/30/2018 now with what appears to be persistent right pneumothorax and loculated complicated right pleural effusion most likely parapneumonic. Intubated large bore chest tube placed 05/01/2018. Remains very critical with persistent air leak septic shock from necrotizing MRSA pneumonia. Prognosis appears guarded Active problems: Acute hypoxemic respiratory failure Persistent right-sided pneumothorax Right-sided complicated pleural effusion, probable empyema MRSA pneumonia with probable lung abscess Severe necrotizing pneumonia Probable septic emboli to the left lung Septic shock COPD with exacerbation MRSA bacteremia MRSA pneumonia Plan: NEURO: -Propofol and versed for sedation and ventilator synchrony -Daily sedation vacation after surgical interventions are completed RESP: -PC/AC, Ventilator bundle -DuoNeb every 4 hours scheduled and as needed -CT of the chest 04/30/2018 shows large persistent right pneumothorax pl effusion and significant right lower lung consolidation with probable cavitation /abscess -s/p 28 Chinese chest tube to the right side, now with reexpansion of the lung but continued air leak -Dr. Carey did bronchoscopy- large amount of mucus plugging removed from right upper lobe -Repeat CT chest shows good reexpansion of the right lung. Persistent hydropneumothorax apically and right lower lung region. Loculated hydropneumothorax may be empyema -Infectious disease and Pulmonology is following. CT surgery following -Status post right VATS with decortication 05/05/2018 -Continue antibiotics per ID Daily CPAP trials. CV: -Normal saline IV fluids 100 ml per hour -Beau-Synephrine if needed to keep map above 65 GI: -IV famotidine - Start tube feeds with Jevity 1.5 and advance to goal as tolerated : -Monitor renal function closely. Shine catheter in anticipation of ID: -Antibiotics per ID. Currently on Zyvox -Further cultures per ID -Hyzabfkblcnt-gtlxdw-mx cultures -Status post right VATS with decortication on 05/05 HEME: -Monitor CBC, coags ENDO: -Electrolyte replacement per protocol -Sliding scale insulin if needed PROPH: -Bilateral lower extremity SCDs. /famotidine. Resume lovenox 05/07 LINES: -Utilize peripheral IVs, right subclavian central line placed 05/01/18 CC time 35 min excluding procedures This patient remains critically ill with one or more organ systems which are or may become a threat to life. I have spent in excess of 45 minutes discontinuously in the care and management of this patient. This time is exclusive of procedures, and includes, but is not limited to, evaluation of the patient, review of the medical record, discussions with family, consultants, nursing staff, or respiratory therapy, and documentation in the medical record. STAT CT showed Right-sided pigtail catheter in the right mid chest with a large right-sided pneumothorax remaining. There is extensive consolidation throughout the only aerated portions of the right lung with debris in the right bronchus and bronchus intermedius. There is multiloculated fluid collections in the right lower lobe and the right inferior lateral costophrenic angle could be multiloculated infection. After the CT was reviewed Dr. Bustos reevaluate the positioning of the chest tube and it was noted that the chest tube may be obstructed - flushed with normal saline and reopened the chest tube with now 1-2+ airleak. No need of additional chest tube at this time as the patient has no features of tension. Cardiothoracic surgery consulted for probable lung abscess and persistent pneumothorax Dr. Bustos updated patient's daughter on the phone 05/01/2018 (1) Anaphylaxis Qualifiers: Encounter type: initial encounter Qualified Code(s): T78.2XXA - Anaphylactic shock, unspecified, initial encounter (3) Bilateral pneumonia Qualifiers: Pneumonia type: due to unspecified organism Lung location: unspecified part of lung Qualified Code(s): J18.9 - Pneumonia, unspecified organism (4) Allergic reaction caused by a drug Qualifiers: Encounter type: initial encounter Qualified Code(s): T78.40XA - Allergy, unspecified, initial encounter (5) Acute respiratory failure Qualifiers: Respiratory failure complication: unspecified whether with hypoxia or hypercapnia Qualified Code(s): J96.00 - Acute respiratory failure, unspecified whether with hypoxia or hypercapnia (7) Leukocytosis Qualifiers: Leukocytosis type: unspecified Qualified Code(s): D72.829 - Elevated white blood cell count, unspecified (8) Hypotension Qualifiers: Hypotension type: unspecified hypotension type Qualified Code(s): I95.9 - Hypotension, unspecified
[2018-05-07] MEDS: guaiFENesin 600 MG ER Tablet PO SCH ×2 (08:44→22:06)
[2018-05-07] MEDS: Enoxaparin Inj 40 MG/0.4 ML Syringe SQ SCH (08:44)
[2018-05-07] MEDS: Docusate Sodium 100 MG Capsule PO SCH ×2 (08:44→22:06)
[2018-05-07] MEDS: Metoprolol Tartrate 100 MG Tablet PO SCH ×2 (08:45→22:06)
[2018-05-07] MEDS: Famotidine PF Inj 20 MG/2 ML Vial IV.PUSH SCH ×2 (08:45→22:07)
[2018-05-07] MEDS: Sodium Chloride 0.9% 2 ML Flush BID IV.FLUSH SCH ×2 (08:45→22:06)
[2018-05-07] MEDS: Collagenase Oint 30 GM Tube TOPICAL SCH (08:46)
[2018-05-07] MEDS: Sennosides Liq 8.8 MG/5 ML UDC PO SCH (08:46)
[2018-05-07 09:24] LABS: Baso % (Auto) 0.5 % (0.0-2.0); Eos # (Auto) 0.1 th/mm3 (0.0-0.4); Eos % (Auto) 1.2 % (0.0-4.0); Hematocrit 30.5 % (39.0-51.0); Hemoglobin 10.2 gm/dL (13.0-17.0); Lymph # (Auto) 0.7 th/mm3 (1.0-4.8); Lymph % (Auto) 6.8 % (9.0-44.0); Mean Corpuscular HGB Conc 33.4 % (32.0-36.0); Mean Corpuscular Hemoglobin 29.7 pg (27.0-34.0); Mean Corpuscular Volume 88.9 fL (80.0-100.0); Mean Platelet Volume 7.7 fL (7.0-11.0); Mono # (Auto) 1.1 th/mm3 (0.0-0.9); Mono % (Auto) 10.2 % (0.0-8.0); Neut # (Auto) 8.5 th/mm3 (1.8-7.7); Neut % (Auto) 81.3 % (16.0-70.0); Platelet Count 429 th/mm3 (150-450); Red Blood Count 3.42 mil/mm3 (4.50-5.90); Red Cell Distribution Width 14.5 % (11.6-17.2); White Blood Count 10.5 th/mm3 (4.0-11.0)
[2018-05-07] MEDS: DAPTOmycin Inj 1,000 MG in Sodium Chlor 0.9% Inj 100 ML IV.SIG SCH (12:00)
--- NOTE | 2018-05-07 13:31 | P.PNCC ---
Subjective Subjective Remarks/Hospital Course: Patient is 72-year-old male with past medical history of COPD, tobacco abuse and hypertension who came to the emergency room for shortness of breath via EMS. On EMS arrival saturation was in the 90s, but patient had significant shortness of breath and dyspnea. Patient received Solu-Medrol 125 mg IV and breathing treatments by EMS and was brought to the emergency department. In the emergency department patient received further breathing treatments and chest x-ray showed patchy infiltrate on bilateral lung fitzgerald. Initially maintaining oxygen saturation with nasal cannula. Initial blood pressure was 85 /65, improved with normal saline boluses. WBC count was 17.1. Patient was deemed septic from pneumonia and patient was ordered to receive vancomycin and Zosyn. While receiving vancomycin patient acutely decompensated became extremely short of breath and developed erythematous maculopapular rash involving face torso armpits and groin region. Emergently intubated and placed on mechanical ventilation by the ED physician. Received IV 50 mg Benadryl. Critical care medicine was requested to admit the patient. I evaluated the patient immediately in the emergency department. Patient is intubated on Versed and fentanyl infusion however he is very asynchronous with the vent triggering ventilator alarms. Severe bilateral expiratory wheezing heard on auscultation. He has extensive skin rash predominantly face forehead torso armpit and groins. Appears like patient had anaphylactic reaction to vancomycin complicated by COPD exacerbation and pneumonia. I have ordered additional Solu-Medrol 100 mg x1 scheduled Benadryl and famotidine, antibiotics with cefepime and Levaquin. Increase Versed infusion, add propofol and use neuromuscular paralysis as needed. Will request pharmacy to add vancomycin to allergy. ED physician Dr. Slater had noticed that patient had some swelling on the left side of his face on arrival, however the skin rash after vancomycin was started was new. Patient remains hypotensive has received 2 L of normal saline in the emergency department and no significant urine output. I have ordered additional 2 L normal saline bolus and maintenance fluid at 84 mL/h. Use Levophed as needed to keep map above 65 Subjective 04/06: Off norepinephrine drip. Currently resting in bed in no acute distress on midazolam and fentanyl drips. Start tube feeding today. 04/07: Remains sedated, intubated on mechanical ventilation. Blood cultures growing MRSA 04/08: remains sedated and intubated. repeat cultures still growing MRSA 2/4 cultures. likely need to repeat BCx either today or tomorrow. agree with narrowing spectrum abx. performed DEEDEE at ID recommendation (need to r/o endocarditis), but no evidence of vegetations. remains hypoxic. off vasopressors today. 04/09: adequate auto-diuresis overnight. off vasopressors. on sedation vacation. hypoxia improving. 04/10 Patient remains intubated and sedated with Fentanyl infusion. Became tachycardic and tachypneic overnight requiring increase sedation. Afebrile. 04/11 Patient is intubated and sedated. Afebrile. 04/12 Patient remains intubated and sedated with Diprivan and Fentanyl infusion, Afebrile. 04/13: Sedated, easily arousable, orally intubated on mechanical ventilation. 04/14 Patient was extubated yesterday. Afebrile. 04/15 Patient is lying in bed in NAD. On 3L oxygen. Awake and alert. 04/16 Patient is on partial rebreather. Afebrile. Awake and alert. 04/17: Left-sided chest tube placed for pneumothorax yesterday. On nasal cannula currently. Awake and alert. Appears comfortable. No air leak noted in Pleur-evac 04/18: Remains on nasal cannula. No air leak noted from left-sided chest tube. 04/19: On 5 L nasal cannula. Chest tube in place, no air leak noted. Resting in bed comfortably, no acute distress. Continues to have productive cough. 04/20: Remains on nasal cannula. Chest tube in place, no air leak noted. Resting in bed comfortably. 04/24: RECONSULT NOTE: called emergently by Hospitalist team. patient with new acute respiratory distress. Chest x-ray demonstrates new large right-sided pneumothorax. I went to evaluate the patient is seen in significant distress. I emergently placed right-sided pigtail chest tube. Significant denney of air with no air leak on chest tube. Respiratory distress improved after chest tube placement. Repeat interval chest x-ray demonstrates good placement of chest tube with resolution of pneumothorax. 04/26/18: RECONSULT NOTE: [facility] reconsulted for rexpansion of right pneumothorax. Patient developed increased SOB today without improvement with nebulizer. STAT CXR Moderate to large right pneumothorax has redeveloped and with a probable tension component. He appears to be in moderate distress tachypneic. Patient was moved to the ICU where I evaluated the patient emergently. The right pigtail chest tube is still in place, minimal air leak. I flushed the chest tube but was difficult to withdraw air. I then pulled back the chest tube by approximately 3 cm. Able to withdraw air more easily and on connection to the Vacutainer again there was significant air leak in all chambers. Patient subjectively felt improvement in shortness of breath after chest tube placement. Stat repeat chest x-ray shows near complete reexpansion of the right knee 04/30/18: [facility] RECONSULT NOTE: Critical care, reconsult for worsening respiratory failure. I evaluate the patient urgently. He is very tachypneic diaphoretic. Chest x-ray today showed possible right upper lobe pneumothorax and increasing right effusion. I did an emergent bedside ultrasound which shows probably loculated complicated right pleural effusion. Patient likely needs more further imaging and procedures and in very labored breathing. Proceeded with endotracheal intubation in place patient on mechanical ventilation. I explained plan of care prior to intubation. He understands that he may need emergency chest tube placement and also may need surgical intervention 05/01/18: Patient remains intubated sedated. Hypotensive on 75 mcg/min of Beau- Synephrine. While sedated. CT chest showed severe right lower lung consolidation large pneumothorax/hydropneumothorax on the right side. Plan for large bore chest tube and central line today. Also cardiothoracic surgery was consulted, and I discussed with Dr. Schaeffer. I will plan for a large bore chest tube to the right side followed by a central line placement. 05/02/18: Patient remains intubated heavily sedated for vent synchrony. Right chest tube with large air leak in all chambers. There is possibility of bronchopleural fistula. Chest x-ray shows improved air entry right lung. Discussed with cardiothoracic surgery Dr. Ontiveros today. Will repeat CT scan to see if lung is reexpanding. May need decortication procedure 05/03/18: Patient remains intubated sedated persistent large air leak. CT reviewed with cardiothoracic surgery Dr. Ontiveros. Will discuss with Dr. Schaeffer in a.m. Probably will benefit from decortication due to the hydropneumothorax and persistent pleural effusions which probably are empyema. Otherwise patient remains critically ill clinically same. Bronc cultures growing staph aureus still 05/04/18: Patient remains sedated critically ill. Chest x-ray shows mostly expanded right lung but with persistent loculated apical pneumothorax and right lower effusion. Plan for surgical intervention by Dr. Schaeffer 05/05/2018 possible decortication. Continue broad-spectrum antibiotics 05/05: Remains sedated, orally intubated on mechanical ventilation. Awaiting OR today for decortication and drainage of loculated effusion and possible repair of air leak site. 05/06: Remains sedated, orally intubated on mechanical ventilation. Status post right VATS with decortication on 05/05. [address] on the right with positive air leak. Subcutaneous emphysema decreasing. 05/07: Remains sedated, orally intubated on mechanical ventilation. Status post right VATS with decortication on 05/05. [address] on the right with positive air leak. Starting tube feeds and CPAP trials 05/08: Remains sedated, orally intubated on mechanical ventilation. Air leak persists from right-sided chest tube Objective Vital Signs / I&O: Vital Signs 05/06/18 14:00 05/06/18 15:00 05/06/18 15:33 Temperature Pulse Rate 115 H 112 H 111 H Respiratory Rate 18 18 19 Blood Pressure 104/70 104/72 Pulse Oximetry 97 99 05/06/18 15:36 05/06/18 16:00 05/06/18 17:00 Temperature 99.1 F Pulse Rate 112 H 112 H Respiratory Rate 19 18 18 Blood Pressure 100/69 113/78 Pulse Oximetry 98 97 99 05/06/18 18:00 05/06/18 19:00 05/06/18 20:00 Temperature 98.9 F Pulse Rate 114 H 114 H 113 H Respiratory Rate 18 18 18 Blood Pressure 103/78 107/74 112/78 Pulse Oximetry 98 98 98 05/06/18 20:19 05/06/18 21:00 05/06/18 22:00 Temperature Pulse Rate 105 H 114 H 113 H Respiratory Rate 20 18 18 Blood Pressure 101/74 97/73 L Pulse Oximetry 99 98 05/06/18 23:00 05/06/18 23:24 05/07/18 00:00 Temperature Pulse Rate 113 H 113 H Respiratory Rate 18 18 18 Blood Pressure 97/71 L 107/73 Pulse Oximetry 98 98 98 05/07/18 01:00 05/07/18 02:00 05/07/18 03:00 Temperature Pulse Rate 113 H 114 H 106 H Respiratory Rate 18 18 20 Blood Pressure 101/71 107/76 102/69 Pulse Oximetry 98 98 98 05/07/18 04:00 05/07/18 04:02 05/07/18 05:00 Temperature Pulse Rate 111 H 113 H Respiratory Rate 18 20 18 Blood Pressure 107/76 107/72 Pulse Oximetry 98 98 98 05/07/18 06:00 05/07/18 07:00 05/07/18 07:40 Temperature Pulse Rate 110 H 107 H 108 H Respiratory Rate 18 18 20 Blood Pressure 98/66 L 114/73 Pulse Oximetry 98 98 97 05/07/18 08:00 05/07/18 09:00 05/07/18 10:00 Temperature 99.1 F Pulse Rate 107 H 103 H 103 H Respiratory Rate 17 14 16 Blood Pressure 115/75 108/72 106/69 Pulse Oximetry 98 99 98 05/07/18 11:00 05/07/18 11:43 05/07/18 12:00 Temperature 98.6 F Pulse Rate 107 H 104 H Respiratory Rate 28 H 26 H 30 H Blood Pressure 110/76 109/76 Pulse Oximetry 98 98 98 Intake & Output 05/06/18 05/07/18 05/07/18 18:59 06:59 18:59 Intake Total 900 / 900 550 / 550 150 / 150 Output Total 1625 / 1625 870 / 870 Balance -725 / -725 -320 / -320 150 / 150 Weight 71.5 kg Intake: IV 800 / 800 550 / 550 150 / 150 Diprivan 1000 mg/100 ml Inj 1, 100 / 100 100 / 100 000 mg In 100 ml @ 5 MCG/KG/MIN 2.265 mls/hr IV.CONT TITRATE PRN Rx#:[id number] Teflaro Inj 600 MG In NS Inj 100 / 100 100 / 100 100 / 100 100 ML @ 100 mls/hr IV.SIG Q12H [place] Rx#:[id number] Cleocin 900 mg/NS Premix 900 mg 100 / 100 50 / 50 50 / 50 In 50 ml @ 100 mls/hr IV.SIG Q8H [place] Rx#:[id number] Cubicin Inj 1,000 MG In NS Inj 100 / 100 100 ML @ 200 mls/hr IV.SIG Q24H [place] Rx#:[id number] Zyvox 600 mg Premix 300 ML @ 300 / 300 300 / 300 300 mls/hr IV.SIG Q12H [place] Rx#: [id number] Ancef Inj 1,000 MG In NS Inj 100 / 100 100 ML @ 200 mls/hr IV.SIG Q8H [place] Rx#:[id number] Tube Irrigant 100 / 100 Output: Urine Amount (Catheter) 1275 / 1275 760 / 760 Straight 1275 / 1275 760 / 760 Chest Tube Drainage 350 / 350 110 / 110 Right Anterior Y Connected 350 / 350 110 / 110 Other: Date of Last Bowel Movement 04/30/18 04/30/18 04/30/18 # Bowel Movements 0 Result Diagrams: 05/07/18 08:40 05/06/18 03:45 Objective Remarks: GENERAL: Patient is lying in bed in critically ill intubated, sedated SKIN: Warm and dry. HEAD: Atraumatic. Normocephalic. EYES: Pupils equal and round. No scleral icterus. ENT: No nasal bleeding or discharge. Mucous membranes moist. Orotracheally intubated NECK: Trachea midline. No JVD. CARDIOVASCULAR: S1-S2 normal no murmur RESPIRATORY: Intubated sedated. Good air entry bilaterally, scattered rhonchi bilaterally. Dressing over surgical site, subcutaneous emphysema present on the right chest wall is improved. Chest tube x2 to the right with 1-2+ airleak GASTROINTESTINAL: Abdomen soft, non-tender, nondistended. no guarding. MUSCULOSKELETAL: Extremities without clubbing, cyanosis, or edema. No obvious deformities. NEUROLOGICAL: Intubated, sedated for vent synchrony with propofol and Versed. Moves all extremities withdraws to pain. No focal deficits Assessment and Plan - Problem List (1) Anaphylaxis Code(s): T78.2XXA - Anaphylactic shock, unspecified, initial encounter Status : Acute (2) COPD with acute exacerbation Code(s): J44.1 - Chronic obstructive pulmonary disease with (acute) exacerbation Status: Acute (3) Bilateral pneumonia Code(s): J18.9 - Pneumonia, unspecified organism Status: Acute (4) Allergic reaction caused by a drug Code(s): T78.40XA - Allergy, unspecified, initial encounter Status: Acute (5) Acute respiratory failure Code(s): J96.00 - Acute respiratory failure, unspecified whether with hypoxia or hypercapnia Status: Acute (6) Severe sepsis Code(s): A41.9 - Sepsis, unspecified organism; R65.20 - Severe sepsis without septic shock Status: Acute (7) Leukocytosis Code(s): D72.829 - Elevated white blood cell count, unspecified Status: Acute (8) Hypotension Code(s): I95.9 - Hypotension, unspecified Status: Acute (9) Acute kidney injury Code(s): N17.9 - Acute kidney failure, unspecified Status: Acute (10) Hyponatremia Code(s): E87.1 - Hypo-osmolality and hyponatremia Status: Acute (11) Hyperglycemia Code(s): R73.9 - Hyperglycemia, unspecified Status: Acute (12) History of hypertension Code(s): Z86.79 - Personal history of other diseases of the circulatory system Status: Chronic (13) Tobacco abuse Code(s): Z72.0 - Tobacco use Status: Chronic (14) History of COPD Code(s): Z87.09 - Personal history of other diseases of the respiratory system Status: Chronic - Assessment and Plan Plan: Assessment: 72-year-old male with known necrotizing MRSA pneumonia and hypoxemia requiring supplemental oxygenation now with acute respiratory distress secondary to acute right pneumothorax. Status post emergent chest tube decompression. Previously was transferred to [facility] service now reconsulted 04/30/2018 now with what appears to be persistent right pneumothorax and loculated complicated right pleural effusion most likely parapneumonic. Intubated large bore chest tube placed 05/01/2018. Remains very critical with persistent air leak septic shock from necrotizing MRSA pneumonia. Prognosis appears guarded Active problems: Acute hypoxemic respiratory failure Persistent right-sided pneumothorax Right-sided complicated pleural effusion, probable empyema MRSA pneumonia with probable lung abscess Severe necrotizing pneumonia Probable septic emboli to the left lung Septic shock COPD with exacerbation MRSA bacteremia MRSA pneumonia Plan: NEURO: -Propofol and versed for sedation and ventilator synchrony -Daily sedation vacation after surgical interventions are completed RESP: -PC/AC, Ventilator bundle -DuoNeb every 4 hours scheduled and as needed -CT of the chest 04/30/2018 shows large persistent right pneumothorax pl effusion and significant right lower lung consolidation with probable cavitation /abscess -s/p 28 Croatian chest tube to the right side, now with reexpansion of the lung but continued air leak -Dr. Carey did bronchoscopy- large amount of mucus plugging removed from right upper lobe -Repeat CT chest shows good reexpansion of the right lung. Persistent hydropneumothorax apically and right lower lung region. Loculated hydropneumothorax may be empyema -Infectious disease and Pulmonology is following. CT surgery following -Status post right VATS with decortication 05/05/2018 -Continue antibiotics per ID Daily CPAP trials. CV: -Normal saline IV fluids 100 ml per hour -Beau-Synephrine if needed to keep map above 65 GI: -IV famotidine - Continue tube feeds with Jevity 1.5 and advance to goal as tolerated : -Monitor renal function closely. Shine catheter in anticipation of ID: -Antibiotics per ID. Currently on Zyvox -Further cultures per ID -[id number] cultures -Status post right VATS with decortication on 05/05 HEME: -Monitor CBC, coags ENDO: -Electrolyte replacement per protocol -Sliding scale insulin if needed PROPH: -Bilateral lower extremity SCDs. /famotidine. Resume lovenox 05/07 LINES: -Utilize peripheral IVs, right subclavian central line placed 05/01/18 CC time 35 min excluding procedures This patient remains critically ill with one or more organ systems which are or may become a threat to life. I have spent in excess of 45 minutes discontinuously in the care and management of this patient. This time is exclusive of procedures, and includes, but is not limited to, evaluation of the patient, review of the medical record, discussions with family, consultants, nursing staff, or respiratory therapy, and documentation in the medical record. STAT CT showed Right-sided pigtail catheter in the right mid chest with a large right-sided pneumothorax remaining. There is extensive consolidation throughout the only aerated portions of the right lung with debris in the right bronchus and bronchus intermedius. There is multiloculated fluid collections in the right lower lobe and the right inferior lateral costophrenic angle could be multiloculated infection. After the CT was reviewed Dr. Bustos reevaluate the positioning of the chest tube and it was noted that the chest tube may be obstructed - flushed with normal saline and reopened the chest tube with now 1-2+ airleak. No need of additional chest tube at this time as the patient has no features of tension. Cardiothoracic surgery consulted for probable lung abscess and persistent pneumothorax Dr. Bustos updated patient's daughter on the phone 05/01/2018 (1) Anaphylaxis Qualifiers: Encounter type: initial encounter Qualified Code(s): T78.2XXA - Anaphylactic shock, unspecified, initial encounter (3) Bilateral pneumonia Qualifiers: Pneumonia type: due to unspecified organism Lung location: unspecified part of lung Qualified Code(s): J18.9 - Pneumonia, unspecified organism (4) Allergic reaction caused by a drug Qualifiers: Encounter type: initial encounter Qualified Code(s): T78.40XA - Allergy, unspecified, initial encounter (5) Acute respiratory failure Qualifiers: Respiratory failure complication: unspecified whether with hypoxia or hypercapnia Qualified Code(s): J96.00 - Acute respiratory failure, unspecified whether with hypoxia or hypercapnia (7) Leukocytosis Qualifiers: Leukocytosis type: unspecified Qualified Code(s): D72.829 - Elevated white blood cell count, unspecified (8) Hypotension Qualifiers: Hypotension type: unspecified hypotension type Qualified Code(s): I95.9 - Hypotension, unspecified
--- NOTE | 2018-05-07 13:54 | P.DIET ---
Nutritional Evaluation Type of nutrition evaluation: follow-up Nutrition consult regarding: Diet Evaluation Screening comments: 04/06/18 TF review Objective - Diagnosis respiratory failure, pneumonia, allergic reaction - Objective % IBW: 108 (IBW = 178lb) Body Weight Used for Calculations: Actual (88kg) Energy Needs - Lower Range (kCal/kg): 25 Energy Needs - Upper Range (kCal/kg): 30 Lower Limit kCal/kg (kCals): 2,200 Upper Limit kCal/kg (kCals): 2,640 Lower Limit Protein Factor (Grams per Kg): 1.1 Upper Limit Protein Factor (Grams per Kg): 1.3 Lower Protein Needs (Protein): 97 Upper Protein Needs (Protein): 114 Dietitian Reviewed in Medical Record: Curent medications, Intake & Output, Labs , Medical history, Tube feeding Diet Order: NPO, TF'ing Speech Therapy Recommendations: Yes (regular, thin liquids (04/30/18)) Objective Comments: PMH: COPD, hx of MRSA, HTN Labs: Cr 0.38, POC glucose 117 116, Ca+ 8.0 Skin: Pressure Ulcer (L Buttocks) LBM 04/30/18 Assessment Assessment: Pt was intubated on 04/30/18 d/t worsening SOB and emergent chest tube placement w/ decortication/drainage of loculated effusion. Pt currently also sedated w/ propofol and on mech vent. Pt currently receiving TF of Jevity 1.5 @ 20ml/hr, w / goal rate of 60mL/hr per MD. RD to recommend increasing goal rate to Jevity 1.5 @ 65mL/hr to provide 2340kcal, 100g of protein, and 1186mL of free water to best meet pts nutritional needs. Continue to monitor TF tolerance. Labs reviewed , dietitian following. Recommendations: 1. RD to recommend increasing goal rate to Jevity 1.5 @ 65mL/hr to best meet pts nutritional needs 2. Continue to monitor TF tolerance 3. Dietitian following Dietitian to Monitor: Lab values, Glucose level, Intake & Output, Tube feeding tolerance, Weight change, Medical course
--- NOTE | 2018-05-07 14:44 | XR ---
EXAM DATE: 05/07/2018 2:38 PM EST AGE/SEX: 72 years / Male INDICATIONS: Pneumohtorax CLINICAL DATA: This is the patient's subsequent encounter. Patient reports that signs and symptoms h ave been present for 4 - 6 days and indicates a pain score of Nonresponsive. MEDICAL/SURGICAL HISTORY: . . Chronic obstructive pulmonary disease. Hypertension. MRSA. . Ch est tube right side COMPARISON: [facility], CHEST 1V SINGLE AP, 05/07/2018. . FINDINGS: Single AP view the chest. Right-sided chest tubes, nasogastric tube, endotracheal tube, right subclav bhanu central venous catheter remain in place. Right lung parenchymal opacity and small right pleural e ffusion unchanged. No evidence of pneumothorax. CONCLUSION: No significant interval change. No evidence of pneumothorax. Electronically signed by: Lawrence Hollis MD Board Certified Radiologist 05/07/2018 2:42 PM EST
--- NOTE | 2018-05-07 14:57 | P.PNCV ---
- Note Subjective/Hospital Course: A 72-year-old male admitted on 04/05/2018 via the emergency department for shortness of breath, brought in by EMS with COPD exacerbation, also history of tobacco abuse. The patient became hypotensive, was found to have bilateral patchy infiltrates and was deemed septic from pneumonia, received immediate antibiotics. He also received a dose of vancomycin and apparently had some post maculopapular rash. He was emergently intubated and placed on ventilator by the emergency physician. Patient was successfully resuscitated with IV fluids, transferred to the emergency department where he remained on pressors. He was actually extubated on 04/14/2018 and was found to have developed a left- sided pneumothorax. A chest tube was placed and on 04/24/2018 patient went into acute respiratory distress. The chest x-ray showed a new right-sided pneumothorax and emergent right-sided chest tube was placed and respiratory distress improved after the placement and then on 04/26/2018 the patient had increasing shortness of breath despite nebulizer treatment. He was transferred again back to the ICU. The right chest tube was pulled back and adjusted with improved shortness of breath after the chest tube placement and on 04/30/2018 the patient apparently had increasing shortness of breath which showed a possible right upper lobe pneumothorax despite the chest tube and increasing effusion. Bedside ultrasound showed loculated complicated effusion. The patient was then reintubated and we were consulted to evaluate for right upper lobe loculated effusion. The patient now has [address] with air leak. He does have some subcutaneous emphysema. CT Chest 05/02 CONCLUSION: 1. Overall improving exam with improved aeration of the right hemithorax. Persistent areas of loculated pleural effusion. These demonstrate foci of air within the right lower lobe and are concerning for abscess. Airspace abnormalities within the left hemithorax appears stable to smaller in size from prior exam. 05/04 CT chest discussed with Dr Saenz results evaluated by Dr Victoria attempted to contact Daughter Liliana plan is for surgery in am Right thoracoscopic exploration with evacuation of loculated pleural effusion , possible decortication pt remains on vent sedated , right chest tube with + air leak / pig tail cath has been removed 05/05 - Preoperative Diagnosis (1) Empyema (2) Bilateral pneumonia (3) Acute respiratory failure (4) Severe sepsis R VATS decortication 05/06 remains sedated on vent 40%fio2 cultures path pending Vent per CCM [address], + 1 air leak no subq emphysema 05/07 now has 3+ air leak , nesha increase suction to 30cm for now if no improvement can go to 40cm sedated on vent , weaning as per CCM no growth in cultures from 05/05 to date continue antibiotics Objective: Vital Signs - 24 hr 05/06/18 15:00 05/06/18 15:33 05/06/18 15:36 Temperature Pulse Rate 112 H 111 H Respiratory Rate 18 19 19 Blood Pressure 104/72 Pulse Oximetry 99 98 05/06/18 16:00 05/06/18 17:00 05/06/18 18:00 Temperature 99.1 F Pulse Rate 112 H 112 H 114 H Respiratory Rate 18 18 18 Blood Pressure 100/69 113/78 103/78 Pulse Oximetry 97 99 98 05/06/18 19:00 05/06/18 20:00 05/06/18 20:19 Temperature 98.9 F Pulse Rate 114 H 113 H 105 H Respiratory Rate 18 18 20 Blood Pressure 107/74 112/78 Pulse Oximetry 98 98 05/06/18 21:00 05/06/18 22:00 05/06/18 23:00 Temperature Pulse Rate 114 H 113 H 113 H Respiratory Rate 18 18 18 Blood Pressure 101/74 97/73 L 97/71 L Pulse Oximetry 99 98 98 05/06/18 23:24 05/07/18 00:00 05/07/18 01:00 Temperature Pulse Rate 113 H 113 H Respiratory Rate 18 18 18 Blood Pressure 107/73 101/71 Pulse Oximetry 98 98 98 05/07/18 02:00 05/07/18 03:00 05/07/18 04:00 Temperature Pulse Rate 114 H 106 H 111 H Respiratory Rate 18 20 18 Blood Pressure 107/76 102/69 107/76 Pulse Oximetry 98 98 98 05/07/18 04:02 05/07/18 05:00 05/07/18 06:00 Temperature Pulse Rate 113 H 110 H Respiratory Rate 20 18 18 Blood Pressure 107/72 98/66 L Pulse Oximetry 98 98 98 05/07/18 07:00 05/07/18 07:40 05/07/18 08:00 Temperature 99.1 F Pulse Rate 107 H 108 H 107 H Respiratory Rate 18 20 17 Blood Pressure 114/73 115/75 Pulse Oximetry 98 97 98 05/07/18 09:00 05/07/18 10:00 05/07/18 11:00 Temperature Pulse Rate 103 H 103 H 107 H Respiratory Rate 14 16 28 H Blood Pressure 108/72 106/69 110/76 Pulse Oximetry 99 98 98 05/07/18 11:43 05/07/18 12:00 05/07/18 14:00 Temperature 98.6 F Pulse Rate 104 H 105 H Respiratory Rate 26 H 30 H Blood Pressure 109/76 Pulse Oximetry 98 98 GENERAL: sedated on vent SKIN: Warm and dry. HEAD: Atraumatic. Normocephalic. EYES: Pupils equal and round. No scleral icterus. No injection or drainage. ENT: No nasal bleeding or discharge. Mucous membranes pink and moist. NECK: Trachea midline. No JVD. CARDIOVASCULAR: Regular rate and rhythm. , slightly tachycardic RESPIRATORY: coarse bilateral breath sounds, improving subq emphysema CT x 2 right anterior lateral chest wall . + 3 air leak GASTROINTESTINAL: Abdomen soft, non-tender, nondistended. Hepatic and splenic margins not palpable NG clamped . MUSCULOSKELETAL: Extremities without clubbing, cyanosis, or edema. No obvious deformities. NEUROLOGICAL: sedated on vent PSYCHIATRIC: NA Labs: Laboratory Results - last 12 hr 05/07/18 08:40 WBC 10.5 RBC 3.42 L Hgb 10.2 L Hct 30.5 L MCV 88.9 MCH 29.7 MCHC 33.4 RDW 14.5 Plt Count 429 MPV 7.7 Neut % (Auto) 81.3 H Lymph % (Auto) 6.8 L Grundy % (Auto) 10.2 H Eos % (Auto) 1.2 Baso % (Auto) 0.5 Neut # (Auto) 8.5 H Lymph # (Auto) 0.7 L Grundy # (Auto) 1.1 H Eos # (Auto) 0.1 Baso # (Auto) 0.0 WBC Differential . Differential Comment Auto diff final Result Diagrams: 05/07/18 08:40 05/06/18 03:45 - Plan (1) Bilateral pneumonia (2) Empyema lung Plan: s/p[ right vats leave chest tubes in place to suction / increase to 30cm suction vent per CCM antibiotics per ID (1) Bilateral pneumonia Qualifiers: Pneumonia type: due to unspecified organism Lung location: unspecified part of lung Qualified Code(s): J18.9 - Pneumonia, unspecified organism
--- NOTE | 2018-05-07 19:45 | P.PNPL ---
Subjective Interval history: 72 YOWM with MRSA Pn, cavitary lesion, COPD, Lt ptx mild sob Intbated Sedated Chest tube has airleak Has SQ Emphysema. Weaned to CPAP Chest tube suction increased Physical Exam Vital signs: Vital Signs 05/06/18 20:00 05/06/18 20:19 05/06/18 21:00 Temperature 98.9 F Pulse Rate 113 H 105 H 114 H Respiratory Rate 18 20 18 Blood Pressure 112/78 101/74 Pulse Oximetry 98 99 05/06/18 22:00 05/06/18 23:00 05/06/18 23:24 Temperature Pulse Rate 113 H 113 H Respiratory Rate 18 18 18 Blood Pressure 97/73 L 97/71 L Pulse Oximetry 98 98 98 05/07/18 00:00 05/07/18 01:00 05/07/18 02:00 Temperature Pulse Rate 113 H 113 H 114 H Respiratory Rate 18 18 18 Blood Pressure 107/73 101/71 107/76 Pulse Oximetry 98 98 98 05/07/18 03:00 05/07/18 04:00 05/07/18 04:02 Temperature Pulse Rate 106 H 111 H Respiratory Rate 20 18 20 Blood Pressure 102/69 107/76 Pulse Oximetry 98 98 98 05/07/18 05:00 05/07/18 06:00 05/07/18 07:00 Temperature Pulse Rate 113 H 110 H 107 H Respiratory Rate 18 18 18 Blood Pressure 107/72 98/66 L 114/73 Pulse Oximetry 98 98 98 05/07/18 07:40 05/07/18 08:00 05/07/18 09:00 Temperature 99.1 F Pulse Rate 108 H 107 H 103 H Respiratory Rate 20 17 14 Blood Pressure 115/75 108/72 Pulse Oximetry 97 98 99 05/07/18 10:00 05/07/18 11:00 05/07/18 11:43 Temperature Pulse Rate 103 H 107 H Respiratory Rate 16 28 H 26 H Blood Pressure 106/69 110/76 Pulse Oximetry 98 98 98 05/07/18 12:00 05/07/18 13:00 05/07/18 14:00 Temperature 98.6 F Pulse Rate 104 H 107 H 105 H Respiratory Rate 30 H 26 H 27 H Blood Pressure 109/76 109/74 108/77 Pulse Oximetry 98 98 98 05/07/18 14:55 05/07/18 15:00 05/07/18 16:00 Temperature 98.5 F Pulse Rate 106 H 106 H 107 H Respiratory Rate 26 H 27 H 29 H Blood Pressure 107/74 115/78 Pulse Oximetry 97 98 99 05/07/18 18:00 Temperature Pulse Rate 106 H Respiratory Rate Blood Pressure Pulse Oximetry Intake & Output 05/07/18 05/07/18 05/08/18 06:59 18:59 06:59 Intake Total 550 / 550 474 / 474 350 / 350 Output Total 870 / 870 525 / 525 Balance -320 / -320 -51 / -51 350 / 350 Weight 71.5 kg Intake: IV 550 / 550 250 / 250 350 / 350 Diprivan 1000 mg/100 ml Inj 1, 100 / 100 000 mg In 100 ml @ 5 MCG/KG/MIN 2.265 mls/hr IV.CONT TITRATE PRN Rx#:[id number] Teflaro Inj 600 MG In NS Inj 100 / 100 100 / 100 100 ML @ 100 mls/hr IV.SIG Q12H [facility] Rx#:[id number] Cleocin 900 mg/NS Premix 900 mg 50 / 50 50 / 50 50 / 50 In 50 ml @ 100 mls/hr IV.SIG Q8H [facility] Rx#:[id number] Cubicin Inj 1,000 MG In NS Inj 100 / 100 100 ML @ 200 mls/hr IV.SIG Q24H [facility] Rx#:[id number] Zyvox 600 mg Premix 300 ML @ 300 / 300 300 / 300 300 mls/hr IV.SIG Q12H [facility] Rx#: [id number] Tube Feeding 164 / 164 Water Bolus Amount 60 / 60 Output: Urine Amount (Catheter) 760 / 760 325 / 325 Straight 760 / 760 325 / 325 Chest Tube Drainage 110 / 110 200 / 200 Right Anterior Y Connected 110 / 110 200 / 200 Other: Date of Last Bowel Movement 04/30/18 04/30/18 # Bowel Movements 0 GENERAL: Elderly WM, on Vent SKIN: Warm and dry. HEAD: Normocephalic. EYES: No scleral icterus. No injection or drainage. NECK: Supple, trachea midline. No JVD or lymphadenopathy. CARDIOVASCULAR: Regular rate and rhythm without murmurs, gallops, or rubs. RESPIRATORY: Breath sounds equal bilaterally. No accessory muscle use. Chest tube with air leak. GASTROINTESTINAL: Abdomen soft, non-tender, nondistended. MUSCULOSKELETAL: No cyanosis, or edema. BACK: Nontender without obvious deformity. No CVA tenderness. - Urinary Catheter Management Indwelling Urethral Catheter Cath placed during this visit: yes, but has since been removed by the nurse Reason for continuing: Acute urinary retention Insertion date: 04/05/18 Insertion time: 23:00 Removal date: 04/12/18 Removal time: 08:30 Condom Cath placed during this visit: no Reason for continuing: Acute urinary retention Straight Cath placed during this visit: yes, but has since been removed by the nurse Reason for continuing: Not indwelling catheter Insertion date: 05/06/18 Insertion time: 18:00 Removal date: 05/06/18 Removal time: 18:10 Indwelling Temp Sensing Catheter Cath placed during this visit: yes, but has since been removed by the nurse Reason for continuing: Hourly intake/output Insertion date: 05/05/18 Insertion time: 12:15 Removal date: 05/05/18 Removal time: 15:00 Assessment and Plan - Plan IMPRESSION: 1. MRSA pneumonia. 2. Cavitary pneumonia. 4. Chronic obstructive pulmonary disease. 5. Hypotension. 6. Left pneumothorax, status post chest tube.removal 7. Nicotine use. 8. Right Ptx 9. VDRF PLAN: Cont Abx per ID Aerosol nebs Vent Support Chest tube to suction Sedation vacation. CXR in AM.
[2018-05-08] MEDS: Clindamycin 900 mg/NS Premix 900 MG/50 ML PIGGYBACK IV.SIG SCH ×3 (02:00→18:05)
[2018-05-08 06:01] LABS: Baso # (Auto) 0.1 th/mm3 (0.0-0.2); Baso % (Auto) 0.9 % (0.0-2.0); Eos # (Auto) 0.1 th/mm3 (0.0-0.4); Eos % (Auto) 1.3 % (0.0-4.0); Hematocrit 28.3 % (39.0-51.0); Hemoglobin 9.8 gm/dL (13.0-17.0); Lymph # (Auto) 0.6 th/mm3 (1.0-4.8); Lymph % (Auto) 8.6 % (9.0-44.0); Mean Corpuscular HGB Conc 34.4 % (32.0-36.0); Mean Corpuscular Hemoglobin 30.4 pg (27.0-34.0); Mean Corpuscular Volume 88.3 fL (80.0-100.0); Mean Platelet Volume 7.5 fL (7.0-11.0); Mono # (Auto) 0.6 th/mm3 (0.0-0.9); Mono % (Auto) 8.4 % (0.0-8.0); Neut # (Auto) 6.1 th/mm3 (1.8-7.7); Neut % (Auto) 80.8 % (16.0-70.0); Platelet Count 457 th/mm3 (150-450); Red Blood Count 3.21 mil/mm3 (4.50-5.90); Red Cell Distribution Width 14.5 % (11.6-17.2); White Blood Count 7.6 th/mm3 (4.0-11.0)
[2018-05-08 06:26] LABS: Alanine Aminotransferase 66 U/L (12-78); Albumin 1.4 g/dL (3.4-5.0); Alkaline Phosphatase 110 U/L (45-117); Anion Gap 7 meq/L (5-15); Aspartate Aminotransferase 71 U/L (15-37); Blood Urea Nitrogen 12 mg/dL (7-18); Carbon Dioxide 31.8 meq/L (21.0-32.0); Chloride 98 meq/L (98-107); Glomerular Filtration Rate Greater Than 89 mL/min (>89); Glucose,Random 131 mg/dL (74-106); Sodium 137 meq/L (136-145); Total Protein 5.9 g/dL (6.4-8.2)
[2018-05-08 06:28] LABS: Potassium 2.9 meq/L (3.5-5.1)
[2018-05-08] MEDS: Propofol 1000 mg/100 ml Inj 1,000 MG/100 ML BOTTLE IV.CONT PRN (06:30)
[2018-05-08] MEDS: Artificial Tears Opth Drops 15 ML Bottle EACH EYE SCH ×3 (06:30→20:39)
[2018-05-08] MEDS: Potassium Chlor 40 mEq Premix 40 MEQ/100 ML PIGGYBACK IV.SIG PRN ×2 (07:25→11:31)
[2018-05-08] MEDS: Oral Hygiene Kit OROPHARYNG SCH ×3 (07:26→15:12)
[2018-05-08] MEDS: Chlorhexidine 0.12% Oral Kit 15 ML UDC OROPHARYNG SCH ×2 (07:29→20:38)
[2018-05-08] MEDS: Docusate Sodium 100 MG Capsule PO SCH ×2 (09:09→20:39)
[2018-05-08] MEDS: Famotidine PF Inj 20 MG/2 ML Vial IV.PUSH SCH ×2 (09:09→20:39)
[2018-05-08] MEDS: Collagenase Oint 30 GM Tube TOPICAL SCH (09:10)
[2018-05-08] MEDS: Enoxaparin Inj 40 MG/0.4 ML Syringe SQ SCH (09:10)
[2018-05-08] MEDS: Sodium Chloride 0.9% 2 ML Flush BID IV.FLUSH SCH ×3 (09:10→20:39)
[2018-05-08] MEDS: Metoprolol Tartrate 100 MG Tablet PO SCH ×2 (09:10→20:39)
[2018-05-08] MEDS: guaiFENesin 600 MG ER Tablet PO SCH ×2 (09:10→20:39)
[2018-05-08] MEDS: Sennosides Liq 8.8 MG/5 ML UDC PO SCH (09:13)
--- NOTE | 2018-05-08 13:22 | P.PNCC ---
Subjective Subjective Remarks/Hospital Course: Patient is 72-year-old male with past medical history of COPD, tobacco abuse and hypertension who came to the emergency room for shortness of breath via EMS. On EMS arrival saturation was in the 90s, but patient had significant shortness of breath and dyspnea. Patient received Solu-Medrol 125 mg IV and breathing treatments by EMS and was brought to the emergency department. In the emergency department patient received further breathing treatments and chest x-ray showed patchy infiltrate on bilateral lung fitzgerald. Initially maintaining oxygen saturation with nasal cannula. Initial blood pressure was 85 /65, improved with normal saline boluses. WBC count was 17.1. Patient was deemed septic from pneumonia and patient was ordered to receive vancomycin and Zosyn. While receiving vancomycin patient acutely decompensated became extremely short of breath and developed erythematous maculopapular rash involving face torso armpits and groin region. Emergently intubated and placed on mechanical ventilation by the ED physician. Received IV 50 mg Benadryl. Critical care medicine was requested to admit the patient. I evaluated the patient immediately in the emergency department. Patient is intubated on Versed and fentanyl infusion however he is very asynchronous with the vent triggering ventilator alarms. Severe bilateral expiratory wheezing heard on auscultation. He has extensive skin rash predominantly face forehead torso armpit and groins. Appears like patient had anaphylactic reaction to vancomycin complicated by COPD exacerbation and pneumonia. I have ordered additional Solu-Medrol 100 mg x1 scheduled Benadryl and famotidine, antibiotics with cefepime and Levaquin. Increase Versed infusion, add propofol and use neuromuscular paralysis as needed. Will request pharmacy to add vancomycin to allergy. ED physician Dr. Slater had noticed that patient had some swelling on the left side of his face on arrival, however the skin rash after vancomycin was started was new. Patient remains hypotensive has received 2 L of normal saline in the emergency department and no significant urine output. I have ordered additional 2 L normal saline bolus and maintenance fluid at 84 mL/h. Use Levophed as needed to keep map above 65 Subjective 04/06: Off norepinephrine drip. Currently resting in bed in no acute distress on midazolam and fentanyl drips. Start tube feeding today. 04/07: Remains sedated, intubated on mechanical ventilation. Blood cultures growing MRSA 04/08: remains sedated and intubated. repeat cultures still growing MRSA 2/4 cultures. likely need to repeat BCx either today or tomorrow. agree with narrowing spectrum abx. performed DEEDEE at ID recommendation (need to r/o endocarditis), but no evidence of vegetations. remains hypoxic. off vasopressors today. 04/09: adequate auto-diuresis overnight. off vasopressors. on sedation vacation. hypoxia improving. 04/10 Patient remains intubated and sedated with Fentanyl infusion. Became tachycardic and tachypneic overnight requiring increase sedation. Afebrile. 04/11 Patient is intubated and sedated. Afebrile. 04/12 Patient remains intubated and sedated with Diprivan and Fentanyl infusion, Afebrile. 04/13: Sedated, easily arousable, orally intubated on mechanical ventilation. 04/14 Patient was extubated yesterday. Afebrile. 04/15 Patient is lying in bed in NAD. On 3L oxygen. Awake and alert. 04/16 Patient is on partial rebreather. Afebrile. Awake and alert. 04/17: Left-sided chest tube placed for pneumothorax yesterday. On nasal cannula currently. Awake and alert. Appears comfortable. No air leak noted in Pleur-evac 04/18: Remains on nasal cannula. No air leak noted from left-sided chest tube. 04/19: On 5 L nasal cannula. Chest tube in place, no air leak noted. Resting in bed comfortably, no acute distress. Continues to have productive cough. 04/20: Remains on nasal cannula. Chest tube in place, no air leak noted. Resting in bed comfortably. 04/24: RECONSULT NOTE: called emergently by Hospitalist team. patient with new acute respiratory distress. Chest x-ray demonstrates new large right-sided pneumothorax. I went to evaluate the patient is seen in significant distress. I emergently placed right-sided pigtail chest tube. Significant denney of air with no air leak on chest tube. Respiratory distress improved after chest tube placement. Repeat interval chest x-ray demonstrates good placement of chest tube with resolution of pneumothorax. 04/26/18: RECONSULT NOTE: [facility] reconsulted for rexpansion of right pneumothorax. Patient developed increased SOB today without improvement with nebulizer. STAT CXR Moderate to large right pneumothorax has redeveloped and with a probable tension component. He appears to be in moderate distress tachypneic. Patient was moved to the ICU where I evaluated the patient emergently. The right pigtail chest tube is still in place, minimal air leak. I flushed the chest tube but was difficult to withdraw air. I then pulled back the chest tube by approximately 3 cm. Able to withdraw air more easily and on connection to the Vacutainer again there was significant air leak in all chambers. Patient subjectively felt improvement in shortness of breath after chest tube placement. Stat repeat chest x-ray shows near complete reexpansion of the right knee 04/30/18: [facility] RECONSULT NOTE: Critical care, reconsult for worsening respiratory failure. I evaluate the patient urgently. He is very tachypneic diaphoretic. Chest x-ray today showed possible right upper lobe pneumothorax and increasing right effusion. I did an emergent bedside ultrasound which shows probably loculated complicated right pleural effusion. Patient likely needs more further imaging and procedures and in very labored breathing. Proceeded with endotracheal intubation in place patient on mechanical ventilation. I explained plan of care prior to intubation. He understands that he may need emergency chest tube placement and also may need surgical intervention 05/01/18: Patient remains intubated sedated. Hypotensive on 75 mcg/min of Beau- Synephrine. While sedated. CT chest showed severe right lower lung consolidation large pneumothorax/hydropneumothorax on the right side. Plan for large bore chest tube and central line today. Also cardiothoracic surgery was consulted, and I discussed with Dr. Schaeffer. I will plan for a large bore chest tube to the right side followed by a central line placement. 05/02/18: Patient remains intubated heavily sedated for vent synchrony. Right chest tube with large air leak in all chambers. There is possibility of bronchopleural fistula. Chest x-ray shows improved air entry right lung. Discussed with cardiothoracic surgery Dr. Ontiveros today. Will repeat CT scan to see if lung is reexpanding. May need decortication procedure 05/03/18: Patient remains intubated sedated persistent large air leak. CT reviewed with cardiothoracic surgery Dr. Ontiveros. Will discuss with Dr. Schaeffer in a.m. Probably will benefit from decortication due to the hydropneumothorax and persistent pleural effusions which probably are empyema. Otherwise patient remains critically ill clinically same. Bronc cultures growing staph aureus still 05/04/18: Patient remains sedated critically ill. Chest x-ray shows mostly expanded right lung but with persistent loculated apical pneumothorax and right lower effusion. Plan for surgical intervention by Dr. Schaeffer 05/05/2018 possible decortication. Continue broad-spectrum antibiotics 05/05: Remains sedated, orally intubated on mechanical ventilation. Awaiting OR today for decortication and drainage of loculated effusion and possible repair of air leak site. 05/06: Remains sedated, orally intubated on mechanical ventilation. Status post right VATS with decortication on 05/05. [address] on the right with positive air leak. Subcutaneous emphysema decreasing. 05/07: Remains sedated, orally intubated on mechanical ventilation. Status post right VATS with decortication on 05/05. [address] on the right with positive air leak. Starting tube feeds and CPAP trials 05/08: Remains sedated, orally intubated on mechanical ventilation. Air leak persists from right-sided chest tube Objective Vital Signs / I&O: Vital Signs 05/07/18 14:00 05/07/18 14:55 05/07/18 15:00 Temperature Pulse Rate 105 H 106 H 106 H Respiratory Rate 27 H 26 H 27 H Blood Pressure 108/77 107/74 Pulse Oximetry 98 97 98 05/07/18 16:00 05/07/18 17:00 05/07/18 18:00 Temperature 98.5 F Pulse Rate 107 H 108 H 111 H Respiratory Rate 29 H 26 H 29 H Blood Pressure 115/78 116/76 115/80 Pulse Oximetry 99 97 97 05/07/18 19:00 05/07/18 19:38 05/07/18 19:40 Temperature Pulse Rate 106 H 109 H Respiratory Rate 30 H 21 21 Blood Pressure 104/69 Pulse Oximetry 98 98 05/07/18 20:00 05/07/18 21:00 05/07/18 22:00 Temperature 98.8 F Pulse Rate 109 H 108 H 108 H Respiratory Rate 19 18 18 Blood Pressure 104/65 107/72 109/76 Pulse Oximetry 98 98 98 05/07/18 23:00 05/07/18 23:39 05/08/18 00:00 Temperature Pulse Rate 101 H 97 H Respiratory Rate 18 19 18 Blood Pressure 114/79 113/75 Pulse Oximetry 98 98 98 05/08/18 01:00 05/08/18 02:00 05/08/18 03:00 Temperature Pulse Rate 101 H 102 H 102 H Respiratory Rate 18 22 18 Blood Pressure 110/77 103/72 100/70 Pulse Oximetry 98 97 98 05/08/18 03:27 05/08/18 03:52 05/08/18 04:00 Temperature Pulse Rate 102 H 102 H Respiratory Rate 18 18 18 Blood Pressure 93/65 L Pulse Oximetry 98 98 05/08/18 04:08 05/08/18 05:00 05/08/18 06:00 Temperature Pulse Rate 100 H 101 H 107 H Respiratory Rate 18 18 18 Blood Pressure 89/62 L 91/62 L 98/67 L Pulse Oximetry 98 98 97 05/08/18 07:00 05/08/18 07:25 05/08/18 08:00 Temperature 99.6 F Pulse Rate 107 H 108 H Respiratory Rate 18 19 25 H Blood Pressure 99/67 L 105/70 Pulse Oximetry 97 97 97 05/08/18 08:06 05/08/18 09:00 05/08/18 10:00 Temperature Pulse Rate 104 H 108 H 113 H Respiratory Rate 19 25 H Blood Pressure 107/71 Pulse Oximetry 98 05/08/18 10:02 05/08/18 11:00 05/08/18 11:58 Temperature Pulse Rate 109 H Respiratory Rate 30 H 31 H 24 Blood Pressure 104/69 Pulse Oximetry 97 98 05/08/18 12:00 Temperature 99.3 F Pulse Rate 101 H Respiratory Rate 29 H Blood Pressure 130/88 Pulse Oximetry 98 Intake & Output 05/07/18 05/08/18 05/08/18 18:59 06:59 18:59 Intake Total 474 / 474 1121 / 1121 550 / 550 Output Total 525 / 525 Balance -51 / -51 1121 / 1121 550 / 550 Intake: IV 250 / 250 700 / 700 550 / 550 Diprivan 1000 mg/100 ml Inj 1, 200 / 200 000 mg In 100 ml @ 5 MCG/KG/MIN 2.265 mls/hr IV.CONT TITRATE PRN Rx#:[id number] Teflaro Inj 600 MG In NS Inj 100 / 100 100 / 100 100 / 100 100 ML @ 100 mls/hr IV.SIG Q12H [place] Rx#:[id number] Cleocin 900 mg/NS Premix 900 mg 50 / 50 100 / 100 50 / 50 In 50 ml @ 100 mls/hr IV.SIG Q8H [facility] Rx#:[id number] Cubicin Inj 1,000 MG In NS Inj 100 / 100 100 ML @ 200 mls/hr IV.SIG Q24H [facility] Rx#:[id number] Zyvox 600 mg Premix 300 ML @ 300 / 300 300 / 300 300 mls/hr IV.SIG Q12H [facility] Rx#: [id number] KCl 40 mEq Premix Inj 40 meq In 100 / 100 100 ml @ 25 mls/hr IV.SIG Q2H PRN Rx#:[id number] Tube Feeding 164 / 164 421 / 421 Water Bolus Amount 60 / 60 Output: Urine Amount (Catheter) 325 / 325 Straight 325 / 325 Chest Tube Drainage 200 / 200 Right Anterior Y Connected 200 / 200 Other: Date of Last Bowel Movement 04/30/18 04/30/18 04/30/18 Result Diagrams: 05/08/18 05:00 05/08/18 05:00 Objective Remarks: GENERAL: Patient is lying in bed in critically ill intubated, sedated SKIN: Warm and dry. HEAD: Atraumatic. Normocephalic. EYES: Pupils equal and round. No scleral icterus. ENT: No nasal bleeding or discharge. Mucous membranes moist. Orotracheally intubated NECK: Trachea midline. No JVD. CARDIOVASCULAR: S1-S2 normal no murmur RESPIRATORY: Intubated sedated. Good air entry bilaterally, scattered rhonchi bilaterally. Dressing over surgical site, subcutaneous emphysema present on the right chest wall is improved. Chest tube x2 to the right with 1-2+ airleak GASTROINTESTINAL: Abdomen soft, non-tender, nondistended. no guarding. MUSCULOSKELETAL: Extremities without clubbing, cyanosis, or edema. No obvious deformities. NEUROLOGICAL: Intubated, sedated for vent synchrony with propofol and Versed. Moves all extremities withdraws to pain. No focal deficits Assessment and Plan - Problem List (1) Anaphylaxis Code(s): T78.2XXA - Anaphylactic shock, unspecified, initial encounter Status : Acute (2) COPD with acute exacerbation Code(s): J44.1 - Chronic obstructive pulmonary disease with (acute) exacerbation Status: Acute (3) Bilateral pneumonia Code(s): J18.9 - Pneumonia, unspecified organism Status: Acute (4) Allergic reaction caused by a drug Code(s): T78.40XA - Allergy, unspecified, initial encounter Status: Acute (5) Acute respiratory failure Code(s): J96.00 - Acute respiratory failure, unspecified whether with hypoxia or hypercapnia Status: Acute (6) Severe sepsis Code(s): A41.9 - Sepsis, unspecified organism; R65.20 - Severe sepsis without septic shock Status: Acute (7) Leukocytosis Code(s): D72.829 - Elevated white blood cell count, unspecified Status: Acute (8) Hypotension Code(s): I95.9 - Hypotension, unspecified Status: Acute (9) Acute kidney injury Code(s): N17.9 - Acute kidney failure, unspecified Status: Acute (10) Hyponatremia Code(s): E87.1 - Hypo-osmolality and hyponatremia Status: Acute (11) Hyperglycemia Code(s): R73.9 - Hyperglycemia, unspecified Status: Acute (12) History of hypertension Code(s): Z86.79 - Personal history of other diseases of the circulatory system Status: Chronic (13) Tobacco abuse Code(s): Z72.0 - Tobacco use Status: Chronic (14) History of COPD Code(s): Z87.09 - Personal history of other diseases of the respiratory system Status: Chronic - Assessment and Plan Plan: Assessment: 72-year-old male with known necrotizing MRSA pneumonia and hypoxemia requiring supplemental oxygenation now with acute respiratory distress secondary to acute right pneumothorax. Status post emergent chest tube decompression. Previously was transferred to [facility] service now reconsulted 04/30/2018 now with what appears to be persistent right pneumothorax and loculated complicated right pleural effusion most likely parapneumonic. Intubated large bore chest tube placed 05/01/2018. Remains very critical with persistent air leak septic shock from necrotizing MRSA pneumonia. Prognosis appears guarded Active problems: Acute hypoxemic respiratory failure Persistent right-sided pneumothorax Right-sided complicated pleural effusion, probable empyema MRSA pneumonia with probable lung abscess Severe necrotizing pneumonia Probable septic emboli to the left lung Septic shock COPD with exacerbation MRSA bacteremia MRSA pneumonia Plan: NEURO: -Propofol and versed for sedation and ventilator synchrony -Daily sedation vacation after surgical interventions are completed RESP: -PC/AC, Ventilator bundle -DuoNeb every 4 hours scheduled and as needed -CT of the chest 04/30/2018 shows large persistent right pneumothorax pl effusion and significant right lower lung consolidation with probable cavitation /abscess -s/p 28 Ecuadorean chest tube to the right side, now with reexpansion of the lung but continued air leak -Dr. Carey did bronchoscopy- large amount of mucus plugging removed from right upper lobe -Repeat CT chest shows good reexpansion of the right lung. Persistent hydropneumothorax apically and right lower lung region. Loculated hydropneumothorax may be empyema -Infectious disease and Pulmonology is following. CT surgery following -Status post right VATS with decortication 05/05/2018 -Continue antibiotics per ID Daily CPAP trials. CV: -Normal saline IV fluids 100 ml per hour -Beau-Synephrine if needed to keep map above 65 GI: -IV famotidine - Continue tube feeds with Jevity 1.5 and advance to goal as tolerated : -Monitor renal function closely. Shine catheter in anticipation of ID: -Antibiotics per ID. Currently on Zyvox -Further cultures per ID -[id number] cultures -Status post right VATS with decortication on 05/05 HEME: -Monitor CBC, coags ENDO: -Electrolyte replacement per protocol -Sliding scale insulin if needed PROPH: -Bilateral lower extremity SCDs. /famotidine. Resume lovenox 05/07 LINES: -Utilize peripheral IVs, right subclavian central line placed 05/01/18 CC time 35 min excluding procedures This patient remains critically ill with one or more organ systems which are or may become a threat to life. I have spent in excess of 45 minutes discontinuously in the care and management of this patient. This time is exclusive of procedures, and includes, but is not limited to, evaluation of the patient, review of the medical record, discussions with family, consultants, nursing staff, or respiratory therapy, and documentation in the medical record. STAT CT showed Right-sided pigtail catheter in the right mid chest with a large right-sided pneumothorax remaining. There is extensive consolidation throughout the only aerated portions of the right lung with debris in the right bronchus and bronchus intermedius. There is multiloculated fluid collections in the right lower lobe and the right inferior lateral costophrenic angle could be multiloculated infection. After the CT was reviewed Dr. Bustos reevaluate the positioning of the chest tube and it was noted that the chest tube may be obstructed - flushed with normal saline and reopened the chest tube with now 1-2+ airleak. No need of additional chest tube at this time as the patient has no features of tension. Cardiothoracic surgery consulted for probable lung abscess and persistent pneumothorax Dr. Bustos updated patient's daughter on the phone 05/01/2018 (1) Anaphylaxis Qualifiers: Encounter type: initial encounter Qualified Code(s): T78.2XXA - Anaphylactic shock, unspecified, initial encounter (3) Bilateral pneumonia Qualifiers: Pneumonia type: due to unspecified organism Lung location: unspecified part of lung Qualified Code(s): J18.9 - Pneumonia, unspecified organism (4) Allergic reaction caused by a drug Qualifiers: Encounter type: initial encounter Qualified Code(s): T78.40XA - Allergy, unspecified, initial encounter (5) Acute respiratory failure Qualifiers: Respiratory failure complication: unspecified whether with hypoxia or hypercapnia Qualified Code(s): J96.00 - Acute respiratory failure, unspecified whether with hypoxia or hypercapnia (7) Leukocytosis Qualifiers: Leukocytosis type: unspecified Qualified Code(s): D72.829 - Elevated white blood cell count, unspecified (8) Hypotension Qualifiers: Hypotension type: unspecified hypotension type Qualified Code(s): I95.9 - Hypotension, unspecified
--- NOTE | 2018-05-08 17:19 | P.PNADD ---
Addendum to Inpatient Note Additional information: RESISTANT to Linezolid dc zyvox dc daptomycin - teflaro 600 q 8 - clindamycin 900 q 8 will send out for Teflaro susceptibilities
--- NOTE | 2018-05-08 18:24 | P.PNPL ---
Subjective Interval history: 72 YOWM with MRSA Pn, cavitary lesion, COPD, Lt ptx mild sob Intbated Sedated Chest tube has airleak Has SQ Emphysema. Tolerates CPAP Physical Exam Vital signs: Vital Signs 05/07/18 19:00 05/07/18 19:38 05/07/18 19:40 Temperature Pulse Rate 106 H 109 H Respiratory Rate 30 H 21 21 Blood Pressure 104/69 Pulse Oximetry 98 98 05/07/18 20:00 05/07/18 21:00 05/07/18 22:00 Temperature 98.8 F Pulse Rate 109 H 108 H 108 H Respiratory Rate 19 18 18 Blood Pressure 104/65 107/72 109/76 Pulse Oximetry 98 98 98 05/07/18 23:00 05/07/18 23:39 05/08/18 00:00 Temperature Pulse Rate 101 H 97 H Respiratory Rate 18 19 18 Blood Pressure 114/79 113/75 Pulse Oximetry 98 98 98 05/08/18 01:00 05/08/18 02:00 05/08/18 03:00 Temperature Pulse Rate 101 H 102 H 102 H Respiratory Rate 18 22 18 Blood Pressure 110/77 103/72 100/70 Pulse Oximetry 98 97 98 05/08/18 03:27 05/08/18 03:52 05/08/18 04:00 Temperature Pulse Rate 102 H 102 H Respiratory Rate 18 18 18 Blood Pressure 93/65 L Pulse Oximetry 98 98 05/08/18 04:08 05/08/18 05:00 05/08/18 06:00 Temperature Pulse Rate 100 H 101 H 107 H Respiratory Rate 18 18 18 Blood Pressure 89/62 L 91/62 L 98/67 L Pulse Oximetry 98 98 97 05/08/18 07:00 05/08/18 07:25 05/08/18 08:00 Temperature 99.6 F Pulse Rate 107 H 108 H Respiratory Rate 18 19 25 H Blood Pressure 99/67 L 105/70 Pulse Oximetry 97 97 97 05/08/18 08:06 05/08/18 09:00 05/08/18 10:00 Temperature Pulse Rate 104 H 108 H 113 H Respiratory Rate 19 25 H Blood Pressure 107/71 Pulse Oximetry 98 05/08/18 10:02 05/08/18 11:00 05/08/18 11:58 Temperature Pulse Rate 109 H Respiratory Rate 30 H 31 H 24 Blood Pressure 104/69 Pulse Oximetry 97 98 05/08/18 12:00 05/08/18 14:00 05/08/18 15:00 Temperature 99.3 F Pulse Rate 101 H 103 H 103 H Respiratory Rate 29 H 30 H 30 H Blood Pressure 130/88 117/76 113/75 Pulse Oximetry 98 98 99 05/08/18 15:52 05/08/18 16:00 05/08/18 18:00 Temperature 98.1 F Pulse Rate 101 H 101 H 107 H Respiratory Rate 29 H 29 H Blood Pressure 114/74 Pulse Oximetry 98 98 Intake & Output 05/07/18 05/08/18 05/08/18 18:59 06:59 18:59 Intake Total 474 / 474 1121 / 1121 1601 / 1601 Output Total 525 / 525 315 / 315 Balance -51 / -51 1121 / 1121 1286 / 1286 Intake: IV 250 / 250 700 / 700 1030 / 1030 Versed Inj 100 mg In 100 ml @ 2 80 / 80 MG/HR 2 mls/hr IV.CONT TITRATE PRN Rx#:[id number] Diprivan 1000 mg/100 ml Inj 1, 200 / 200 000 mg In 100 ml @ 5 MCG/KG/MIN 2.265 mls/hr IV.CONT TITRATE PRN Rx#:[id number] Teflaro Inj 600 MG In NS Inj 100 / 100 100 / 100 100 / 100 100 ML @ 100 mls/hr IV.SIG Q12H [facility] Rx#:[id number] Cleocin 900 mg/NS Premix 900 mg 50 / 50 100 / 100 50 / 50 In 50 ml @ 100 mls/hr IV.SIG Q8H [facility] Rx#:[id number] Cubicin Inj 1,000 MG In NS Inj 100 / 100 100 ML @ 200 mls/hr IV.SIG Q24H [facility] Rx#:[id number] Zyvox 600 mg Premix 300 ML @ 300 / 300 600 / 600 300 mls/hr IV.SIG Q12H [facility] Rx#: [id number] KCl 40 mEq Premix Inj 40 meq In 200 / 200 100 ml @ 25 mls/hr IV.SIG Q2H PRN Rx#:[id number] Tube Feeding 164 / 164 421 / 421 571 / 571 Water Bolus Amount 60 / 60 Output: Urine 215 / 215 Urine Amount (Catheter) 325 / 325 Straight 325 / 325 Chest Tube Drainage 200 / 200 100 / 100 Right Anterior Y Connected 200 / 200 100 / 100 Other: # Incontinent Voids 1 Date of Last Bowel Movement 04/30/18 04/30/18 04/30/18 GENERAL: Elderly Wm, on Vent Opens eyes and responds SKIN: Warm and dry. HEAD: Normocephalic. EYES: No scleral icterus. No injection or drainage. NECK: Supple, trachea midline. No JVD or lymphadenopathy. CARDIOVASCULAR: Regular rate and rhythm without murmurs, gallops, or rubs. RESPIRATORY: Breath sounds equal bilaterally. No accessory muscle use. GASTROINTESTINAL: Abdomen soft, non-tender, nondistended. MUSCULOSKELETAL: No cyanosis, or edema. BACK: Nontender without obvious deformity. No CVA tenderness. - Urinary Catheter Management Indwelling Urethral Catheter Cath placed during this visit: yes, but has since been removed by the nurse Reason for continuing: Acute urinary retention Insertion date: 04/05/18 Insertion time: 23:00 Removal date: 04/12/18 Removal time: 08:30 Condom Cath placed during this visit: no Reason for continuing: Acute urinary retention Straight Cath placed during this visit: yes, but has since been removed by the nurse Reason for continuing: Not indwelling catheter Insertion date: 05/06/18 Insertion time: 18:00 Removal date: 05/06/18 Removal time: 18:10 Indwelling Temp Sensing Catheter Cath placed during this visit: yes, but has since been removed by the nurse Reason for continuing: Hourly intake/output Insertion date: 05/05/18 Insertion time: 12:15 Removal date: 05/05/18 Removal time: 15:00 Assessment and Plan - Plan IMPRESSION: 1. MRSA pneumonia. 2. Cavitary pneumonia. 4. Chronic obstructive pulmonary disease. 5. Hypotension. 6. Left pneumothorax, status post chest tube.removal 7. Nicotine use. 8. Right Ptx 9. VDRF PLAN: Cont Abx per ID Aerosol nebs Vent Support Chest tube to suction Sedation vacation. Prob extubation in AM
--- NOTE | 2018-05-08 19:27 | P.PNID ---
Subjective Remarks: remains on vent + persistetn leak no fever SP VATS decortication by Dr Victoria on 05/05/18 Fungal clx from BAL grows yeast RESISTANCE to Linezolid was confirmed Antibiotics: n zyvox teflaro added 04/16 clindamycin added 05/05 Lines: Line sites okay Past Medical History: COPD Allergies/Adverse Reactions: Allergies bee venom protein (honey bee) Allergy (Unknown, Verified 04/05/18 21:12) Edema vancomycin Allergy (Verified 04/05/18 23:33) Anaphylaxis Objective Vital Signs 05/07/18 19:38 05/07/18 19:40 05/07/18 20:00 Temperature 98.8 F Pulse Rate 109 H 109 H Respiratory Rate 21 21 19 Blood Pressure 104/65 Pulse Oximetry 98 98 05/07/18 21:00 05/07/18 22:00 05/07/18 23:00 Temperature Pulse Rate 108 H 108 H 101 H Respiratory Rate 18 18 18 Blood Pressure 107/72 109/76 114/79 Pulse Oximetry 98 98 98 05/07/18 23:39 05/08/18 00:00 05/08/18 01:00 Temperature Pulse Rate 97 H 101 H Respiratory Rate 19 18 18 Blood Pressure 113/75 110/77 Pulse Oximetry 98 98 98 05/08/18 02:00 05/08/18 03:00 05/08/18 03:27 Temperature Pulse Rate 102 H 102 H 102 H Respiratory Rate 22 18 18 Blood Pressure 103/72 100/70 Pulse Oximetry 97 98 05/08/18 03:52 05/08/18 04:00 05/08/18 04:08 Temperature Pulse Rate 102 H 100 H Respiratory Rate 18 18 18 Blood Pressure 93/65 L 89/62 L Pulse Oximetry 98 98 98 05/08/18 05:00 05/08/18 06:00 05/08/18 07:00 Temperature Pulse Rate 101 H 107 H 107 H Respiratory Rate 18 18 18 Blood Pressure 91/62 L 98/67 L 99/67 L Pulse Oximetry 98 97 97 05/08/18 07:25 05/08/18 08:00 05/08/18 08:06 Temperature 99.6 F Pulse Rate 108 H 104 H Respiratory Rate 19 25 H 19 Blood Pressure 105/70 Pulse Oximetry 97 97 05/08/18 09:00 05/08/18 10:00 05/08/18 10:02 Temperature Pulse Rate 108 H 113 H Respiratory Rate 25 H 30 H Blood Pressure 107/71 Pulse Oximetry 98 97 05/08/18 11:00 05/08/18 11:58 05/08/18 12:00 Temperature 99.3 F Pulse Rate 109 H 101 H Respiratory Rate 31 H 24 29 H Blood Pressure 104/69 130/88 Pulse Oximetry 98 98 05/08/18 14:00 05/08/18 15:00 05/08/18 15:52 Temperature Pulse Rate 103 H 103 H 101 H Respiratory Rate 30 H 30 H 29 H Blood Pressure 117/76 113/75 Pulse Oximetry 98 99 98 05/08/18 16:00 05/08/18 18:00 Temperature 98.1 F Pulse Rate 101 H 107 H Respiratory Rate 29 H Blood Pressure 114/74 Pulse Oximetry 98 Intake & Output 05/08/18 05/08/18 05/09/18 06:59 18:59 06:59 Intake Total 1121 / 1121 1601 / 1601 Output Total 315 / 315 Balance 1121 / 1121 1286 / 1286 Intake: IV 700 / 700 1030 / 1030 Versed Inj 100 mg In 100 ml @ 2 80 / 80 MG/HR 2 mls/hr IV.CONT TITRATE PRN Rx#:[id number] Diprivan 1000 mg/100 ml Inj 1, 200 / 200 000 mg In 100 ml @ 5 MCG/KG/MIN 2.265 mls/hr IV.CONT TITRATE PRN Rx#:[id number] Teflaro Inj 600 MG In NS Inj 100 / 100 100 / 100 100 ML @ 100 mls/hr IV.SIG Q12H [place] Rx#:[id number] Cleocin 900 mg/NS Premix 900 mg 100 / 100 50 / 50 In 50 ml @ 100 mls/hr IV.SIG Q8H [place] Rx#:[id number] Zyvox 600 mg Premix 300 ML @ 300 / 300 600 / 600 300 mls/hr IV.SIG Q12H [place] Rx#: [id number] KCl 40 mEq Premix Inj 40 meq In 200 / 200 100 ml @ 25 mls/hr IV.SIG Q2H PRN Rx#:[id number] Tube Feeding 421 / 421 571 / 571 Output: Urine 215 / 215 Chest Tube Drainage 100 / 100 Right Anterior Y Connected 100 / 100 Other: # Incontinent Voids 1 Date of Last Bowel Movement 04/30/18 04/30/18 05/01/18 11:00 Bronchial Washings - Right Acid Fast Bacilli Smear - Final No acid fast bacilli seen 05/01/18 11:00 Bronchial Washings - Right Mycobacterial Culture - Preliminary No growth in 1 week 05/05/18 12:10 Tissue - Other Gram Stain - Final 05/05/18 12:10 Tissue - Other Wound Culture - Final No growth in 72 hours (aerobically and anaerobically ) 05/05/18 12:50 Fluid - Pleural fluid Gram Stain - Final 05/05/18 12:50 Fluid - Pleural fluid Body Fluid Culture - Final No growth in 72 hours (aerobically and anaerobically ) 05/05/18 12:10 Tissue - Other Acid Fast Bacilli Smear - Final No acid fast bacilli seen 05/05/18 12:10 Tissue - Other Mycobacterial Culture - Pending 05/05/18 12:10 Tissue - Other Acid Fast Bacilli Smear - Final No acid fast bacilli seen 05/05/18 12:10 Tissue - Other Mycobacterial Culture - Pending 05/05/18 12:50 Fluid - Pleural fluid Acid Fast Bacilli Smear - Final No acid fast bacilli seen 05/05/18 12:50 Fluid - Pleural fluid Mycobacterial Culture - Pending 05/05/18 12:10 Tissue - Other Gram Stain - Final 05/05/18 12:10 Tissue - Other Wound Culture - Final S. aureus MRSA 05/05/18 12:10 Tissue - Other Fungal Smear - Final No fungal elements seen 05/05/18 12:10 Tissue - Other Fungal Culture - Pending 05/01/18 11:00 Bronchial - Right Gram Stain - Final 05/01/18 11:00 Bronchial - Right Bronchial Culture - Final S. aureus MRSA 05/01/18 11:00 Bronchial Washings - Right Fungal Smear - Final No fungal elements seen 05/01/18 11:00 Bronchial Washings - Right Fungal Culture - Preliminary 05/05/18 12:10 Tissue - Other Fungal Smear - Final No fungal elements seen 05/05/18 12:10 Tissue - Other Fungal Culture - Pending 05/05/18 12:50 Fluid - Pleural fluid Fungal Smear - Final No fungal elements seen 05/05/18 12:50 Fluid - Pleural fluid Fungal Culture - Pending Lab - Hematology Results 05/07/18 05/08/18 08:40 05:00 WBC 10.5 7.6 RBC 3.42 L 3.21 L Hgb 10.2 L 9.8 L Hct 30.5 L 28.3 L MCV 88.9 88.3 MCH 29.7 30.4 MCHC 33.4 34.4 RDW 14.5 14.5 Plt Count 429 457 H MPV 7.7 7.5 Neut % (Auto) 81.3 H 80.8 H Lymph % (Auto) 6.8 L 8.6 L Hickman % (Auto) 10.2 H 8.4 H Eos % (Auto) 1.2 1.3 Baso % (Auto) 0.5 0.9 Neut # (Auto) 8.5 H 6.1 Lymph # (Auto) 0.7 L 0.6 L Hickman # (Auto) 1.1 H 0.6 Eos # (Auto) 0.1 0.1 Baso # (Auto) 0.0 0.1 WBC Differential . . Differential Comment Auto diff final Auto diff final Lab - Chemistry Results 05/08/18 05:00 Sodium 137 Potassium 2.9 L* Chloride 98 Carbon Dioxide 31.8 Anion Gap 7 BUN 12 Creatinine 0.35 L Estimated GFR Greater than 89 Random Glucose 131 H Calcium 8.0 L Total Bilirubin 0.2 AST 71 H ALT 66 Alkaline Phosphatase 110 Total Protein 5.9 L Albumin 1.4 L Imaging: ITS Impressions Face CT 04/06/18 00:00 CONCLUSION: 1. Small focal area of soft tissue swelling involving the lateral orbital margin on the left. No abscess. Abdomen/Pelvis CT 04/10/18 00:00 CONCLUSION: 1. Findings in the patient's chest discussed on the patient's chest CT. 2. Left renal stone without hydronephrosis. 3. Slight AAA. 4. Possible gallstones within the gallbladder. 5. There is slight fluid within the peritoneal cavity in the pelvis and within left perinephric space and stranding densities involving the Gerota's fascia on the left side. The exact etiology is not certain could be inflammatory, and there is no hydronephrosis. Head MRI 04/12/18 00:00 CONCLUSION: 1. Some chronic changes with mild cortical and central atrophy. Minimal periventricular and scattered deep white matter tract areas of small vessel ischemic demyelination. 2. Some fluid or secretions identified in the dependent portion of the nasopharynx. 3. Otherwise negative. No findings of intracranial mass lesion/abscess. Lumbar Spine MRI 04/12/18 00:00 CONCLUSION: 1. No evidence of epidural abscess. 2. Grade 1 anterolisthesis at L5-S1 with associated discogenic degenerative changes and bilateral pars defects. There is significant bilateral bony neural foraminal stenosis with bilateral neural impingement. 3. Asymmetric ligamentum flavum hypertrophy on the right side at the L4-5 level flattens the dorsal lateral aspect of the thecal sac. Neural foramen remain patent. 4. Suggestion of distended urinary bladder, incompletely imaged in the field-of -view. Thoracic Spine MRI 04/12/18 00:00 CONCLUSION: 1. Small bilateral pleural effusions. 2. Spinal canal is widely patent throughout without cord compromise. No findings of a paravertebral abscess. Abdomen X-Ray 04/12/18 09:42 CONCLUSION: No evidence of ileus. Gallium Scan Nuclear Medicine 04/13/18 00:00 CONCLUSION: 1. There is abnormal uptake in the lungs corresponding to cavitary lesions probably lung abscesses and areas of consolidation seen on the patient's prior chest CT. Chest CT 05/02/18 00:00 CONCLUSION: 1. Overall improving exam with improved aeration of the right hemithorax. Persistent areas of loculated pleural effusion. These demonstrate foci of air within the right lower lobe and are concerning for abscess. Airspace abnormalities within the left hemithorax appears stable to smaller in size from prior exam. Chest X-Ray 05/07/18 06:00 CONCLUSION: 1. 2 right chest tubes are present and no pneumothorax is visualized. 2. Stable right apex parenchymal opacity and small right basilar opacity. Physical Exam: GENERAL: NAD On vent SKIN: Warm and dry. No rash HEAD: Atraumatic. Normocephalic. EYES: Pupils equal and round. No scleral icterus. No injection or drainage. ENT: No nasal bleeding or discharge. Mucous membranes pink and moist. NECK: Trachea midline. No JVD. CARDIOVASCULAR: Regular rate and rhythm. RESPIRATORY: No accessory muscle use. R lung with decreased BS and extensive R sided CT GASTROINTESTINAL: Abdomen soft, non-tender, nondistended. MUSCULOSKELETAL: Extremities without clubbing, no cyanosis mild edema. 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
[2018-05-09] MEDS: Oral Hygiene Kit OROPHARYNG SCH ×5 (00:32→23:42)
[2018-05-09] MEDS: Clindamycin 900 mg/NS Premix 900 MG/50 ML PIGGYBACK IV.SIG SCH ×3 (02:15→17:03)
[2018-05-09] MEDS: Propofol 1000 mg/100 ml Inj 1,000 MG/100 ML BOTTLE IV.CONT PRN (04:01)
[2018-05-09 04:43] LABS: Baso # (Auto) 0.1 th/mm3 (0.0-0.2); Baso % (Auto) 0.8 % (0.0-2.0); Eos # (Auto) 0.1 th/mm3 (0.0-0.4); Eos % (Auto) 1.6 % (0.0-4.0); Hematocrit 29.2 % (39.0-51.0); Hemoglobin 9.8 gm/dL (13.0-17.0); Lymph # (Auto) 0.8 th/mm3 (1.0-4.8); Lymph % (Auto) 9.7 % (9.0-44.0); Mean Corpuscular HGB Conc 33.7 % (32.0-36.0); Mean Corpuscular Hemoglobin 29.1 pg (27.0-34.0); Mean Corpuscular Volume 86.4 fL (80.0-100.0); Mean Platelet Volume 7.1 fL (7.0-11.0); Mono # (Auto) 0.9 th/mm3 (0.0-0.9); Mono % (Auto) 11.2 % (0.0-8.0); Neut % (Auto) 76.7 % (16.0-70.0); Platelet Count 532 th/mm3 (150-450); Red Blood Count 3.37 mil/mm3 (4.50-5.90); Red Cell Distribution Width 14.3 % (11.6-17.2); White Blood Count 7.8 th/mm3 (4.0-11.0)
[2018-05-09] MEDS: Artificial Tears Opth Drops 15 ML Bottle EACH EYE SCH ×3 (04:45→23:41)
[2018-05-09] MEDS: Chlorhexidine 0.12% Oral Kit 15 ML UDC OROPHARYNG SCH ×2 (07:08→21:12)
[2018-05-09] MEDS: Famotidine PF Inj 20 MG/2 ML Vial IV.PUSH SCH ×2 (07:59→21:06)
[2018-05-09] MEDS: Enoxaparin Inj 40 MG/0.4 ML Syringe SQ SCH (07:59)
[2018-05-09] MEDS: Sodium Chloride 0.9% 2 ML Flush BID IV.FLUSH SCH ×2 (07:59→21:04)
[2018-05-09] MEDS: Collagenase Oint 30 GM Tube TOPICAL SCH (07:59)
[2018-05-09] MEDS: Docusate Sodium 100 MG Capsule PO SCH ×2 (08:00→21:04)
[2018-05-09] MEDS: Metoprolol Tartrate 100 MG Tablet PO SCH ×2 (08:00→21:04)
[2018-05-09] MEDS: guaiFENesin 600 MG ER Tablet PO SCH ×2 (08:00→21:04)
[2018-05-09] MEDS: Sennosides Liq 8.8 MG/5 ML UDC PO SCH (08:00)
[2018-05-09 09:27] LABS: ABG Base Excess 7.5 mmol/L (-2-2); ABG PCO2 44 mmHg (38-42); ABG PO2 82 mmHG (61-120)
--- NOTE | 2018-05-09 09:50 | P.PNCC ---
Subjective Subjective Remarks/Hospital Course: Patient is 72-year-old male with past medical history of COPD, tobacco abuse and hypertension who came to the emergency room for shortness of breath via EMS. On EMS arrival saturation was in the 90s, but patient had significant shortness of breath and dyspnea. Patient received Solu-Medrol 125 mg IV and breathing treatments by EMS and was brought to the emergency department. In the emergency department patient received further breathing treatments and chest x-ray showed patchy infiltrate on bilateral lung fitzgerald. Initially maintaining oxygen saturation with nasal cannula. Initial blood pressure was 85 /65, improved with normal saline boluses. WBC count was 17.1. Patient was deemed septic from pneumonia and patient was ordered to receive vancomycin and Zosyn. While receiving vancomycin patient acutely decompensated became extremely short of breath and developed erythematous maculopapular rash involving face torso armpits and groin region. Emergently intubated and placed on mechanical ventilation by the ED physician. Received IV 50 mg Benadryl. Critical care medicine was requested to admit the patient. I evaluated the patient immediately in the emergency department. Patient is intubated on Versed and fentanyl infusion however he is very asynchronous with the vent triggering ventilator alarms. Severe bilateral expiratory wheezing heard on auscultation. He has extensive skin rash predominantly face forehead torso armpit and groins. Appears like patient had anaphylactic reaction to vancomycin complicated by COPD exacerbation and pneumonia. I have ordered additional Solu-Medrol 100 mg x1 scheduled Benadryl and famotidine, antibiotics with cefepime and Levaquin. Increase Versed infusion, add propofol and use neuromuscular paralysis as needed. Will request pharmacy to add vancomycin to allergy. ED physician Dr. Slater had noticed that patient had some swelling on the left side of his face on arrival, however the skin rash after vancomycin was started was new. Patient remains hypotensive has received 2 L of normal saline in the emergency department and no significant urine output. I have ordered additional 2 L normal saline bolus and maintenance fluid at 84 mL/h. Use Levophed as needed to keep map above 65 Subjective 04/06: Off norepinephrine drip. Currently resting in bed in no acute distress on midazolam and fentanyl drips. Start tube feeding today. 04/07: Remains sedated, intubated on mechanical ventilation. Blood cultures growing MRSA 04/08: remains sedated and intubated. repeat cultures still growing MRSA 2/4 cultures. likely need to repeat BCx either today or tomorrow. agree with narrowing spectrum abx. performed DEEDEE at ID recommendation (need to r/o endocarditis), but no evidence of vegetations. remains hypoxic. off vasopressors today. 04/09: adequate auto-diuresis overnight. off vasopressors. on sedation vacation. hypoxia improving. 04/10 Patient remains intubated and sedated with Fentanyl infusion. Became tachycardic and tachypneic overnight requiring increase sedation. Afebrile. 04/11 Patient is intubated and sedated. Afebrile. 04/12 Patient remains intubated and sedated with Diprivan and Fentanyl infusion, Afebrile. 04/13: Sedated, easily arousable, orally intubated on mechanical ventilation. 04/14 Patient was extubated yesterday. Afebrile. 04/15 Patient is lying in bed in NAD. On 3L oxygen. Awake and alert. 04/16 Patient is on partial rebreather. Afebrile. Awake and alert. 04/17: Left-sided chest tube placed for pneumothorax yesterday. On nasal cannula currently. Awake and alert. Appears comfortable. No air leak noted in Pleur-evac 04/18: Remains on nasal cannula. No air leak noted from left-sided chest tube. 04/19: On 5 L nasal cannula. Chest tube in place, no air leak noted. Resting in bed comfortably, no acute distress. Continues to have productive cough. 04/20: Remains on nasal cannula. Chest tube in place, no air leak noted. Resting in bed comfortably. 04/24: RECONSULT NOTE: called emergently by Hospitalist team. patient with new acute respiratory distress. Chest x-ray demonstrates new large right-sided pneumothorax. I went to evaluate the patient is seen in significant distress. I emergently placed right-sided pigtail chest tube. Significant denney of air with no air leak on chest tube. Respiratory distress improved after chest tube placement. Repeat interval chest x-ray demonstrates good placement of chest tube with resolution of pneumothorax. 04/26/18: RECONSULT NOTE: [facility] reconsulted for rexpansion of right pneumothorax. Patient developed increased SOB today without improvement with nebulizer. STAT CXR Moderate to large right pneumothorax has redeveloped and with a probable tension component. He appears to be in moderate distress tachypneic. Patient was moved to the ICU where I evaluated the patient emergently. The right pigtail chest tube is still in place, minimal air leak. I flushed the chest tube but was difficult to withdraw air. I then pulled back the chest tube by approximately 3 cm. Able to withdraw air more easily and on connection to the Vacutainer again there was significant air leak in all chambers. Patient subjectively felt improvement in shortness of breath after chest tube placement. Stat repeat chest x-ray shows near complete reexpansion of the right knee 04/30/18: [facility] RECONSULT NOTE: Critical care, reconsult for worsening respiratory failure. I evaluate the patient urgently. He is very tachypneic diaphoretic. Chest x-ray today showed possible right upper lobe pneumothorax and increasing right effusion. I did an emergent bedside ultrasound which shows probably loculated complicated right pleural effusion. Patient likely needs more further imaging and procedures and in very labored breathing. Proceeded with endotracheal intubation in place patient on mechanical ventilation. I explained plan of care prior to intubation. He understands that he may need emergency chest tube placement and also may need surgical intervention 05/01/18: Patient remains intubated sedated. Hypotensive on 75 mcg/min of Beau- Synephrine. While sedated. CT chest showed severe right lower lung consolidation large pneumothorax/hydropneumothorax on the right side. Plan for large bore chest tube and central line today. Also cardiothoracic surgery was consulted, and I discussed with Dr. Schaeffer. I will plan for a large bore chest tube to the right side followed by a central line placement. 05/02/18: Patient remains intubated heavily sedated for vent synchrony. Right chest tube with large air leak in all chambers. There is possibility of bronchopleural fistula. Chest x-ray shows improved air entry right lung. Discussed with cardiothoracic surgery Dr. Ontiveros today. Will repeat CT scan to see if lung is reexpanding. May need decortication procedure 05/03/18: Patient remains intubated sedated persistent large air leak. CT reviewed with cardiothoracic surgery Dr. Ontiveros. Will discuss with Dr. Schaeffer in a.m. Probably will benefit from decortication due to the hydropneumothorax and persistent pleural effusions which probably are empyema. Otherwise patient remains critically ill clinically same. Bronc cultures growing staph aureus still 05/04/18: Patient remains sedated critically ill. Chest x-ray shows mostly expanded right lung but with persistent loculated apical pneumothorax and right lower effusion. Plan for surgical intervention by Dr. Schaeffer 05/05/2018 possible decortication. Continue broad-spectrum antibiotics 05/05: Remains sedated, orally intubated on mechanical ventilation. Awaiting OR today for decortication and drainage of loculated effusion and possible repair of air leak site. 05/06: Remains sedated, orally intubated on mechanical ventilation. Status post right VATS with decortication on 05/05. [address] on the right with positive air leak. Subcutaneous emphysema decreasing. 05/07: Remains sedated, orally intubated on mechanical ventilation. Status post right VATS with decortication on 05/05. [address] on the right with positive air leak. Starting tube feeds and CPAP trials 05/08: Remains sedated, orally intubated on mechanical ventilation. Air leak persists from right-sided chest tube 05/09: Sedated, arousable, orally intubated on mechanical ventilation. 1+ air leak from right-sided chest tube noted. On CPAP trial. Objective Vital Signs / I&O: Vital Signs 05/08/18 10:00 05/08/18 10:02 05/08/18 11:00 Temperature Pulse Rate 113 H 109 H Respiratory Rate 30 H 31 H Blood Pressure 104/69 Pulse Oximetry 97 98 05/08/18 11:58 05/08/18 12:00 05/08/18 14:00 Temperature 99.3 F Pulse Rate 101 H 103 H Respiratory Rate 24 29 H 30 H Blood Pressure 130/88 117/76 Pulse Oximetry 98 98 05/08/18 15:00 05/08/18 15:52 05/08/18 16:00 Temperature 98.1 F Pulse Rate 103 H 101 H 101 H Respiratory Rate 30 H 29 H 29 H Blood Pressure 113/75 114/74 Pulse Oximetry 99 98 98 05/08/18 18:00 05/08/18 19:00 05/08/18 19:56 Temperature Pulse Rate 107 H 107 H 105 H Respiratory Rate 29 H 26 H Blood Pressure 112/73 Pulse Oximetry 98 99 05/08/18 20:00 05/08/18 21:00 05/08/18 22:00 Temperature 98.5 F Pulse Rate 109 H 105 H 102 H Respiratory Rate 21 26 H 18 Blood Pressure 116/75 Pulse Oximetry 98 100 100 05/08/18 23:00 05/09/18 00:00 05/09/18 00:03 Temperature 99.0 F Pulse Rate 103 H 101 H Respiratory Rate 18 18 18 Blood Pressure Pulse Oximetry 99 98 98 05/09/18 00:40 05/09/18 01:00 05/09/18 02:00 Temperature Pulse Rate 107 H 107 H 107 H Respiratory Rate 18 18 19 Blood Pressure 116/74 116/76 115/74 Pulse Oximetry 98 98 98 05/09/18 03:00 05/09/18 04:00 05/09/18 04:14 Temperature 99.1 F Pulse Rate 108 H 111 H Respiratory Rate 18 22 22 Blood Pressure 110/72 112/74 Pulse Oximetry 98 97 97 05/09/18 04:16 05/09/18 06:00 05/09/18 07:00 Temperature Pulse Rate 110 H 113 H 113 H Respiratory Rate 23 22 Blood Pressure 109/75 Pulse Oximetry 98 05/09/18 07:23 05/09/18 07:24 05/09/18 07:30 Temperature Pulse Rate 115 H Respiratory Rate 26 H 25 H Blood Pressure Pulse Oximetry 98 97 05/09/18 08:00 Temperature 98.1 F Pulse Rate 109 H Respiratory Rate 24 Blood Pressure 105/66 Pulse Oximetry 98 Intake & Output 05/08/18 05/09/18 05/09/18 18:59 06:59 18:59 Intake Total 1601 / 1601 1250 / 1250 300 / 300 Output Total 315 / 315 400 / 400 Balance 1286 / 1286 850 / 850 300 / 300 Weight 71 kg Intake: IV 1030 / 1030 400 / 400 300 / 300 Versed Inj 100 mg In 100 ml @ 2 80 / 80 MG/HR 2 mls/hr IV.CONT TITRATE PRN Rx#:[id number] Diprivan 1000 mg/100 ml Inj 1, 100 / 100 000 mg In 100 ml @ 5 MCG/KG/MIN 2.265 mls/hr IV.CONT TITRATE PRN Rx#:[id number] Teflaro Inj 600 MG In NS Inj 100 / 100 200 / 200 100 ML @ 100 mls/hr IV.SIG Q8H [place] Rx#:[id number] Cleocin 900 mg/NS Premix 900 mg 50 / 50 100 / 100 In 50 ml @ 100 mls/hr IV.SIG Q8H [place] Rx#:[id number] Zyvox 600 mg Premix 300 ML @ 600 / 600 300 / 300 300 mls/hr IV.SIG Q12H [place] Rx#: [id number] KCl 40 mEq Premix Inj 40 meq In 200 / 200 100 ml @ 25 mls/hr IV.SIG Q2H PRN Rx#:[id number] Tube Feeding 571 / 571 820 / 820 Tube Irrigant 30 / 30 Output: Urine 215 / 215 350 / 350 Chest Tube Drainage 100 / 100 50 / 50 Right Anterior Y Connected 100 / 100 50 / 50 Other: # Voids 3 # Incontinent Voids 1 Date of Last Bowel Movement 04/30/18 05/08/18 05/08/18 # Bowel Movements 3 Result Diagrams: 05/09/18 04:15 05/08/18 22:25 Objective Remarks: GENERAL: Patient is lying in bed in critically ill intubated, sedated SKIN: Warm and dry. HEAD: Atraumatic. Normocephalic. EYES: Pupils equal and round. No scleral icterus. ENT: No nasal bleeding or discharge. Mucous membranes moist. Orotracheally intubated NECK: Trachea midline. No JVD. CARDIOVASCULAR: S1-S2 normal no murmur RESPIRATORY: Intubated sedated. Good air entry bilaterally, scattered rhonchi bilaterally. Dressing over surgical site, subcutaneous emphysema present on the right chest wall is improved. Chest tube x2 to the right with 1-2+ airleak GASTROINTESTINAL: Abdomen soft, non-tender, nondistended. no guarding. MUSCULOSKELETAL: Extremities without clubbing, cyanosis, or edema. No obvious deformities. NEUROLOGICAL: Intubated, sedated for vent synchrony with propofol and Versed. Moves all extremities withdraws to pain. No focal deficits Assessment and Plan - Problem List (1) Anaphylaxis Code(s): T78.2XXA - Anaphylactic shock, unspecified, initial encounter Status : Acute (2) COPD with acute exacerbation Code(s): J44.1 - Chronic obstructive pulmonary disease with (acute) exacerbation Status: Acute (3) Bilateral pneumonia Code(s): J18.9 - Pneumonia, unspecified organism Status: Acute (4) Allergic reaction caused by a drug Code(s): T78.40XA - Allergy, unspecified, initial encounter Status: Acute (5) Acute respiratory failure Code(s): J96.00 - Acute respiratory failure, unspecified whether with hypoxia or hypercapnia Status: Acute (6) Severe sepsis Code(s): A41.9 - Sepsis, unspecified organism; R65.20 - Severe sepsis without septic shock Status: Acute (7) Leukocytosis Code(s): D72.829 - Elevated white blood cell count, unspecified Status: Acute (8) Hypotension Code(s): I95.9 - Hypotension, unspecified Status: Acute (9) Acute kidney injury Code(s): N17.9 - Acute kidney failure, unspecified Status: Acute (10) Hyponatremia Code(s): E87.1 - Hypo-osmolality and hyponatremia Status: Acute (11) Hyperglycemia Code(s): R73.9 - Hyperglycemia, unspecified Status: Acute (12) History of hypertension Code(s): Z86.79 - Personal history of other diseases of the circulatory system Status: Chronic (13) Tobacco abuse Code(s): Z72.0 - Tobacco use Status: Chronic (14) History of COPD Code(s): Z87.09 - Personal history of other diseases of the respiratory system Status: Chronic - Assessment and Plan Plan: Assessment: 72-year-old male with known necrotizing MRSA pneumonia and hypoxemia requiring supplemental oxygenation now with acute respiratory distress secondary to acute right pneumothorax. Status post emergent chest tube decompression. Previously was transferred to [facility] service now reconsulted 04/30/2018 now with what appears to be persistent right pneumothorax and loculated complicated right pleural effusion most likely parapneumonic. Intubated large bore chest tube placed 05/01/2018. Remains very critical with persistent air leak septic shock from necrotizing MRSA pneumonia. Prognosis appears guarded Active problems: Acute hypoxemic respiratory failure Persistent right-sided pneumothorax Right-sided complicated pleural effusion, probable empyema MRSA pneumonia with probable lung abscess Severe necrotizing pneumonia Probable septic emboli to the left lung Septic shock COPD with exacerbation MRSA bacteremia MRSA pneumonia Plan: NEURO: -Propofol and versed for sedation and ventilator synchrony -Daily sedation vacation after surgical interventions are completed RESP: -PC/AC, Ventilator bundle -DuoNeb every 4 hours scheduled and as needed -CT of the chest 04/30/2018 shows large persistent right pneumothorax pl effusion and significant right lower lung consolidation with probable cavitation /abscess -s/p 28 Faroese chest tube to the right side, now with reexpansion of the lung but continued air leak -Dr. Carey did bronchoscopy- large amount of mucus plugging removed from right upper lobe -Repeat CT chest shows good reexpansion of the right lung. Persistent hydropneumothorax apically and right lower lung region. Loculated hydropneumothorax may be empyema -Infectious disease and Pulmonology is following. CT surgery following -Status post right VATS with decortication 05/05/2018 -Continue antibiotics per ID Daily CPAP trials. CV: -Normal saline IV fluids 100 ml per hour -Beau-Synephrine if needed to keep map above 65 GI: -IV famotidine - Continue tube feeds with Jevity 1.5 and advance to goal as tolerated : -Monitor renal function closely. Shine catheter in anticipation of ID: -Antibiotics per ID. Currently on Teflaro and clindamycin for Zyvox resistant staph aureus -Further cultures per ID -Xztshcifygcl-pbeogw-et cultures -Status post right VATS with decortication on 05/05 HEME: -Monitor CBC, coags ENDO: -Electrolyte replacement per protocol -Sliding scale insulin if needed PROPH: -Bilateral lower extremity SCDs. /famotidine. Resume lovenox 05/07 LINES: -Utilize peripheral IVs, right subclavian central line placed 05/01/18 CC time 35 min excluding procedures This patient remains critically ill with one or more organ systems which are or may become a threat to life. I have spent in excess of 45 minutes discontinuously in the care and management of this patient. This time is exclusive of procedures, and includes, but is not limited to, evaluation of the patient, review of the medical record, discussions with family, consultants, nursing staff, or respiratory therapy, and documentation in the medical record. STAT CT showed Right-sided pigtail catheter in the right mid chest with a large right-sided pneumothorax remaining. There is extensive consolidation throughout the only aerated portions of the right lung with debris in the right bronchus and bronchus intermedius. There is multiloculated fluid collections in the right lower lobe and the right inferior lateral costophrenic angle could be multiloculated infection. After the CT was reviewed Dr. Bustos reevaluate the positioning of the chest tube and it was noted that the chest tube may be obstructed - flushed with normal saline and reopened the chest tube with now 1-2+ airleak. No need of additional chest tube at this time as the patient has no features of tension. Cardiothoracic surgery consulted for probable lung abscess and persistent pneumothorax Dr. Bustos updated patient's daughter on the phone 05/01/2018 (1) Anaphylaxis Qualifiers: Encounter type: initial encounter Qualified Code(s): T78.2XXA - Anaphylactic shock, unspecified, initial encounter (3) Bilateral pneumonia Qualifiers: Pneumonia type: due to unspecified organism Lung location: unspecified part of lung Qualified Code(s): J18.9 - Pneumonia, unspecified organism (4) Allergic reaction caused by a drug Qualifiers: Encounter type: initial encounter Qualified Code(s): T78.40XA - Allergy, unspecified, initial encounter (5) Acute respiratory failure Qualifiers: Respiratory failure complication: unspecified whether with hypoxia or hypercapnia Qualified Code(s): J96.00 - Acute respiratory failure, unspecified whether with hypoxia or hypercapnia (7) Leukocytosis Qualifiers: Leukocytosis type: unspecified Qualified Code(s): D72.829 - Elevated white blood cell count, unspecified (8) Hypotension Qualifiers: Hypotension type: unspecified hypotension type Qualified Code(s): I95.9 - Hypotension, unspecified
[2018-05-10] MEDS: Clindamycin 900 mg/NS Premix 900 MG/50 ML PIGGYBACK IV.SIG SCH ×3 (01:40→17:20)
[2018-05-10] MEDS: Artificial Tears Opth Drops 15 ML Bottle EACH EYE SCH ×3 (05:33→20:30)
[2018-05-10] MEDS: Oral Hygiene Kit OROPHARYNG SCH ×3 (05:34→17:16)
[2018-05-10 06:27] LABS: Baso # (Auto) 0.1 th/mm3 (0.0-0.2); Eos # (Auto) 0.1 th/mm3 (0.0-0.4); Hematocrit 31.6 % (39.0-51.0); Hemoglobin 10.6 gm/dL (13.0-17.0); Lymph # (Auto) 0.7 th/mm3 (1.0-4.8); Lymph % (Auto) 6.4 % (9.0-44.0); Mean Corpuscular HGB Conc 33.7 % (32.0-36.0); Mean Platelet Volume 7.6 fL (7.0-11.0); Mono # (Auto) 1.2 th/mm3 (0.0-0.9); Neut # (Auto) 8.6 th/mm3 (1.8-7.7); Neut % (Auto) 80.6 % (16.0-70.0); Platelet Count 548 th/mm3 (150-450); Red Blood Count 3.54 mil/mm3 (4.50-5.90); Red Cell Distribution Width 14.7 % (11.6-17.2); White Blood Count 10.6 th/mm3 (4.0-11.0)
[2018-05-10] MEDS: Enoxaparin Inj 40 MG/0.4 ML Syringe SQ SCH (09:22)
[2018-05-10] MEDS: Famotidine PF Inj 20 MG/2 ML Vial IV.PUSH SCH ×2 (09:23→20:29)
[2018-05-10] MEDS: Sodium Chloride 0.9% 2 ML Flush BID IV.FLUSH SCH ×2 (09:23→20:29)
[2018-05-10] MEDS: guaiFENesin 600 MG ER Tablet PO SCH ×2 (09:33→20:29)
[2018-05-10] MEDS: Docusate Sodium 100 MG Capsule PO SCH ×2 (09:33→20:29)
[2018-05-10] MEDS: Metoprolol Tartrate 100 MG Tablet PO SCH ×2 (09:33→20:29)
[2018-05-10] MEDS: Collagenase Oint 30 GM Tube TOPICAL SCH (09:35)
[2018-05-10] MEDS: Sennosides Liq 8.8 MG/5 ML UDC PO SCH (09:35)
--- NOTE | 2018-05-10 13:07 | P.PNCC ---
Subjective Subjective Remarks/Hospital Course: Patient is 72-year-old male with past medical history of COPD, tobacco abuse and hypertension who came to the emergency room for shortness of breath via EMS. On EMS arrival saturation was in the 90s, but patient had significant shortness of breath and dyspnea. Patient received Solu-Medrol 125 mg IV and breathing treatments by EMS and was brought to the emergency department. In the emergency department patient received further breathing treatments and chest x-ray showed patchy infiltrate on bilateral lung fitzgerald. Initially maintaining oxygen saturation with nasal cannula. Initial blood pressure was 85 /65, improved with normal saline boluses. WBC count was 17.1. Patient was deemed septic from pneumonia and patient was ordered to receive vancomycin and Zosyn. While receiving vancomycin patient acutely decompensated became extremely short of breath and developed erythematous maculopapular rash involving face torso armpits and groin region. Emergently intubated and placed on mechanical ventilation by the ED physician. Received IV 50 mg Benadryl. Critical care medicine was requested to admit the patient. I evaluated the patient immediately in the emergency department. Patient is intubated on Versed and fentanyl infusion however he is very asynchronous with the vent triggering ventilator alarms. Severe bilateral expiratory wheezing heard on auscultation. He has extensive skin rash predominantly face forehead torso armpit and groins. Appears like patient had anaphylactic reaction to vancomycin complicated by COPD exacerbation and pneumonia. I have ordered additional Solu-Medrol 100 mg x1 scheduled Benadryl and famotidine, antibiotics with cefepime and Levaquin. Increase Versed infusion, add propofol and use neuromuscular paralysis as needed. Will request pharmacy to add vancomycin to allergy. ED physician Dr. Slater had noticed that patient had some swelling on the left side of his face on arrival, however the skin rash after vancomycin was started was new. Patient remains hypotensive has received 2 L of normal saline in the emergency department and no significant urine output. I have ordered additional 2 L normal saline bolus and maintenance fluid at 84 mL/h. Use Levophed as needed to keep map above 65 Subjective 04/06: Off norepinephrine drip. Currently resting in bed in no acute distress on midazolam and fentanyl drips. Start tube feeding today. 04/07: Remains sedated, intubated on mechanical ventilation. Blood cultures growing MRSA 04/08: remains sedated and intubated. repeat cultures still growing MRSA 2/4 cultures. likely need to repeat BCx either today or tomorrow. agree with narrowing spectrum abx. performed DEEDEE at ID recommendation (need to r/o endocarditis), but no evidence of vegetations. remains hypoxic. off vasopressors today. 04/09: adequate auto-diuresis overnight. off vasopressors. on sedation vacation. hypoxia improving. 04/10 Patient remains intubated and sedated with Fentanyl infusion. Became tachycardic and tachypneic overnight requiring increase sedation. Afebrile. 04/11 Patient is intubated and sedated. Afebrile. 04/12 Patient remains intubated and sedated with Diprivan and Fentanyl infusion, Afebrile. 04/13: Sedated, easily arousable, orally intubated on mechanical ventilation. 04/14 Patient was extubated yesterday. Afebrile. 04/15 Patient is lying in bed in NAD. On 3L oxygen. Awake and alert. 04/16 Patient is on partial rebreather. Afebrile. Awake and alert. 04/17: Left-sided chest tube placed for pneumothorax yesterday. On nasal cannula currently. Awake and alert. Appears comfortable. No air leak noted in Pleur-evac 04/18: Remains on nasal cannula. No air leak noted from left-sided chest tube. 04/19: On 5 L nasal cannula. Chest tube in place, no air leak noted. Resting in bed comfortably, no acute distress. Continues to have productive cough. 04/20: Remains on nasal cannula. Chest tube in place, no air leak noted. Resting in bed comfortably. 04/24: RECONSULT NOTE: called emergently by Hospitalist team. patient with new acute respiratory distress. Chest x-ray demonstrates new large right-sided pneumothorax. I went to evaluate the patient is seen in significant distress. I emergently placed right-sided pigtail chest tube. Significant denney of air with no air leak on chest tube. Respiratory distress improved after chest tube placement. Repeat interval chest x-ray demonstrates good placement of chest tube with resolution of pneumothorax. 04/26/18: RECONSULT NOTE: [facility] reconsulted for rexpansion of right pneumothorax. Patient developed increased SOB today without improvement with nebulizer. STAT CXR Moderate to large right pneumothorax has redeveloped and with a probable tension component. He appears to be in moderate distress tachypneic. Patient was moved to the ICU where I evaluated the patient emergently. The right pigtail chest tube is still in place, minimal air leak. I flushed the chest tube but was difficult to withdraw air. I then pulled back the chest tube by approximately 3 cm. Able to withdraw air more easily and on connection to the Vacutainer again there was significant air leak in all chambers. Patient subjectively felt improvement in shortness of breath after chest tube placement. Stat repeat chest x-ray shows near complete reexpansion of the right knee 04/30/18: [facility] RECONSULT NOTE: Critical care, reconsult for worsening respiratory failure. I evaluate the patient urgently. He is very tachypneic diaphoretic. Chest x-ray today showed possible right upper lobe pneumothorax and increasing right effusion. I did an emergent bedside ultrasound which shows probably loculated complicated right pleural effusion. Patient likely needs more further imaging and procedures and in very labored breathing. Proceeded with endotracheal intubation in place patient on mechanical ventilation. I explained plan of care prior to intubation. He understands that he may need emergency chest tube placement and also may need surgical intervention 05/01/18: Patient remains intubated sedated. Hypotensive on 75 mcg/min of Beau- Synephrine. While sedated. CT chest showed severe right lower lung consolidation large pneumothorax/hydropneumothorax on the right side. Plan for large bore chest tube and central line today. Also cardiothoracic surgery was consulted, and I discussed with Dr. Schaeffer. I will plan for a large bore chest tube to the right side followed by a central line placement. 05/02/18: Patient remains intubated heavily sedated for vent synchrony. Right chest tube with large air leak in all chambers. There is possibility of bronchopleural fistula. Chest x-ray shows improved air entry right lung. Discussed with cardiothoracic surgery Dr. Ontiveros today. Will repeat CT scan to see if lung is reexpanding. May need decortication procedure 05/03/18: Patient remains intubated sedated persistent large air leak. CT reviewed with cardiothoracic surgery Dr. Ontiveros. Will discuss with Dr. Schaeffer in a.m. Probably will benefit from decortication due to the hydropneumothorax and persistent pleural effusions which probably are empyema. Otherwise patient remains critically ill clinically same. Bronc cultures growing staph aureus still 05/04/18: Patient remains sedated critically ill. Chest x-ray shows mostly expanded right lung but with persistent loculated apical pneumothorax and right lower effusion. Plan for surgical intervention by Dr. Schaeffer 05/05/2018 possible decortication. Continue broad-spectrum antibiotics 05/05: Remains sedated, orally intubated on mechanical ventilation. Awaiting OR today for decortication and drainage of loculated effusion and possible repair of air leak site. 05/06: Remains sedated, orally intubated on mechanical ventilation. Status post right VATS with decortication on 05/05. [address] on the right with positive air leak. Subcutaneous emphysema decreasing. 05/07: Remains sedated, orally intubated on mechanical ventilation. Status post right VATS with decortication on 05/05. [address] on the right with positive air leak. Starting tube feeds and CPAP trials 05/08: Remains sedated, orally intubated on mechanical ventilation. Air leak persists from right-sided chest tube 05/09: Sedated, arousable, orally intubated on mechanical ventilation. 1+ air leak from right-sided chest tube noted. On CPAP trial. 05/10: Extubated yesterday. Slightly tachypneic. On nonrebreather facemask this morning. Air leak absent from right chest tube. Objective Vital Signs / I&O: Vital Signs 05/09/18 14:00 05/09/18 15:00 05/09/18 16:00 Temperature 98.5 F Pulse Rate 108 H 106 H 109 H Respiratory Rate 26 H 27 H Blood Pressure 120/81 119/83 Pulse Oximetry 99 99 05/09/18 18:00 05/09/18 19:25 05/09/18 20:42 Temperature Pulse Rate 106 H 109 H 119 H Respiratory Rate 24 Blood Pressure Pulse Oximetry 97 05/09/18 20:47 05/09/18 20:48 05/09/18 22:04 Temperature 98.5 F Pulse Rate 119 H 117 H Respiratory Rate 27 H Blood Pressure Pulse Oximetry 99 95 05/10/18 00:00 05/10/18 00:11 05/10/18 02:00 Temperature 98.6 F Pulse Rate 127 H 126 H 123 H Respiratory Rate 27 H Blood Pressure Pulse Oximetry 99 05/10/18 04:00 05/10/18 06:00 05/10/18 07:00 Temperature 98.5 F Pulse Rate 127 H 116 H 119 H Respiratory Rate 18 27 H Blood Pressure 120/81 106/72 Pulse Oximetry 99 95 05/10/18 07:23 05/10/18 08:00 05/10/18 09:00 Temperature 98.8 F Pulse Rate 124 H 123 H 116 H Respiratory Rate 28 H 34 H 26 H Blood Pressure 113/77 113/72 Pulse Oximetry 95 96 100 05/10/18 10:00 05/10/18 11:00 Temperature Pulse Rate 120 H 96 H Respiratory Rate 31 H 33 H Blood Pressure 111/77 119/81 Pulse Oximetry 94 L 99 Intake & Output 05/09/18 05/10/18 05/10/18 18:59 06:59 18:59 Intake Total 1060 / 1060 450 / 450 100 / 100 Output Total 575 / 575 375 / 375 Balance 485 / 485 75 / 75 100 / 100 Weight 69.9 kg Intake: IV 900 / 900 450 / 450 100 / 100 Teflaro Inj 600 MG In NS Inj 200 / 200 100 / 100 100 / 100 100 ML @ 100 mls/hr IV.SIG Q8H [facility] Rx#:[id number] Cleocin 900 mg/NS Premix 900 mg 100 / 100 50 / 50 In 50 ml @ 100 mls/hr IV.SIG Q8H [facility] Rx#:[id number] Zyvox 600 mg Premix 300 ML @ 600 / 600 300 / 300 300 mls/hr IV.SIG Q12H [facility] Rx#: [id number] Tube Feeding 160 / 160 0 / 0 Output: Urine 525 / 525 375 / 375 Chest Tube Drainage 50 / 50 Right Anterior Y Connected 50 / 50 Other: Date of Last Bowel Movement 05/09/18 05/09/18 05/09/18 # Incontinent Bowel Movements 1 1 Result Diagrams: 05/10/18 05:11 05/08/18 22:25 Objective Remarks: GENERAL: Patient is lying in bed on nonrebreather facemask slightly tachypneic. SKIN: Warm and dry. HEAD: Atraumatic. Normocephalic. EYES: Pupils equal and round. No scleral icterus. ENT: No nasal bleeding or discharge. Mucous membranes moist. NECK: Trachea midline. No JVD. CARDIOVASCULAR: S1-S2 normal no murmur RESPIRATORY: Good air entry bilaterally, scattered rhonchi bilaterally. Dressing over surgical site. Chest tube x2 to the right with no airleak GASTROINTESTINAL: Abdomen soft, non-tender, nondistended. no guarding. MUSCULOSKELETAL: Extremities without clubbing, cyanosis, or edema. No obvious deformities. NEUROLOGICAL: Awake, alert, following commands. Moves all extremities withdraws to pain. No focal deficits Assessment and Plan - Problem List (1) Anaphylaxis Code(s): T78.2XXA - Anaphylactic shock, unspecified, initial encounter Status : Acute (2) COPD with acute exacerbation Code(s): J44.1 - Chronic obstructive pulmonary disease with (acute) exacerbation Status: Acute (3) Bilateral pneumonia Code(s): J18.9 - Pneumonia, unspecified organism Status: Acute (4) Allergic reaction caused by a drug Code(s): T78.40XA - Allergy, unspecified, initial encounter Status: Acute (5) Acute respiratory failure Code(s): J96.00 - Acute respiratory failure, unspecified whether with hypoxia or hypercapnia Status: Acute (6) Severe sepsis Code(s): A41.9 - Sepsis, unspecified organism; R65.20 - Severe sepsis without septic shock Status: Acute (7) Leukocytosis Code(s): D72.829 - Elevated white blood cell count, unspecified Status: Acute (8) Hypotension Code(s): I95.9 - Hypotension, unspecified Status: Acute (9) Acute kidney injury Code(s): N17.9 - Acute kidney failure, unspecified Status: Acute (10) Hyponatremia Code(s): E87.1 - Hypo-osmolality and hyponatremia Status: Acute (11) Hyperglycemia Code(s): R73.9 - Hyperglycemia, unspecified Status: Acute (12) History of hypertension Code(s): Z86.79 - Personal history of other diseases of the circulatory system Status: Chronic (13) Tobacco abuse Code(s): Z72.0 - Tobacco use Status: Chronic (14) History of COPD Code(s): Z87.09 - Personal history of other diseases of the respiratory system Status: Chronic - Assessment and Plan Plan: Assessment: 72-year-old male with known necrotizing MRSA pneumonia and hypoxemia requiring supplemental oxygenation now with acute respiratory distress secondary to acute right pneumothorax. Status post emergent chest tube decompression. Previously was transferred to [facility] service now reconsulted 04/30/2018 now with what appears to be persistent right pneumothorax and loculated complicated right pleural effusion most likely parapneumonic. Intubated large bore chest tube placed 05/01/2018. With air leak, septic shock from necrotizing MRSA pneumonia. Prognosis appears guarded Active problems: Acute hypoxemic respiratory failure Persistent right-sided pneumothorax Right-sided complicated pleural effusion, probable empyema MRSA pneumonia with probable lung abscess Severe necrotizing pneumonia Probable septic emboli to the left lung Septic shock COPD with exacerbation MRSA bacteremia MRSA pneumonia Plan: NEURO: -Off sedation. Pain medications as needed. Follow neuro status RESP: -Extubated on 05/09. -DuoNeb every 4 hours scheduled and as needed -CT of the chest 04/30/2018 shows large persistent right pneumothorax pl effusion and significant right lower lung consolidation with probable cavitation /abscess -s/p 28 M[place]que chest tube to the right side, now with reexpansion of the lung but continued air leak -Dr. Carey did bronchoscopy- large amount of mucus plugging removed from right upper lobe -Repeat CT chest shows good reexpansion of the right lung. Persistent hydropneumothorax apically and right lower lung region. Loculated hydropneumothorax may be empyema -Infectious disease and Pulmonology is following. CT surgery following -Status post right VATS with decortication 05/05/2018 -Continue antibiotics per ID Extubated on 05/09 following CPAP trial currently on nonrebreather facemask. Will use BiPAP as needed. CV: -Normal saline IV fluids 100 ml per hour -Not requiring pressors. GI: -IV famotidine -Advance p.o. diet as tolerated. : -Monitor renal function closely. Shine catheter in anticipation of ID: -Antibiotics per ID. Currently on Teflaro and clindamycin for Zyvox resistant staph aureus -Further cultures per ID -[id number] cultures -Status post right VATS with decortication on 05/05 HEME: -Monitor CBC, coags ENDO: -Electrolyte replacement per protocol -Sliding scale insulin if needed PROPH: -Bilateral lower extremity SCDs. /famotidine. Resume lovenox 05/07 LINES: -Utilize peripheral IVs, right subclavian central line placed 05/01/18 Dr. Bustos updated patient's daughter on the phone 05/01/2018 (1) Anaphylaxis Qualifiers: Encounter type: initial encounter Qualified Code(s): T78.2XXA - Anaphylactic shock, unspecified, initial encounter (3) Bilateral pneumonia Qualifiers: Pneumonia type: due to unspecified organism Lung location: unspecified part of lung Qualified Code(s): J18.9 - Pneumonia, unspecified organism (4) Allergic reaction caused by a drug Qualifiers: Encounter type: initial encounter Qualified Code(s): T78.40XA - Allergy, unspecified, initial encounter (5) Acute respiratory failure Qualifiers: Respiratory failure complication: unspecified whether with hypoxia or hypercapnia Qualified Code(s): J96.00 - Acute respiratory failure, unspecified whether with hypoxia or hypercapnia (7) Leukocytosis Qualifiers: Leukocytosis type: unspecified Qualified Code(s): D72.829 - Elevated white blood cell count, unspecified (8) Hypotension Qualifiers: Hypotension type: unspecified hypotension type Qualified Code(s): I95.9 - Hypotension, unspecified
[2018-05-10 13:47] LABS: Albumin 1.6 g/dL (3.4-5.0); Anion Gap 5 meq/L (5-15); Aspartate Aminotransferase 48 U/L (15-37); Blood Urea Nitrogen 18 mg/dL (7-18); Calcium 8.6 mg/dL (8.5-10.1); Carbon Dioxide 32.2 meq/L (21.0-32.0); Chloride 102 meq/L (98-107); Glomerular Filtration Rate Greater Than 89 mL/min (>89); Glucose,Random 101 mg/dL (74-106); Potassium 3.6 meq/L (3.5-5.1); Sodium 139 meq/L (136-145)
[2018-05-10 13:49] LABS: Alanine Aminotransferase 70 U/L (12-78)
[2018-05-10 13:51] LABS: Alkaline Phosphatase 110 U/L (45-117); Total Protein 6.2 g/dL (6.4-8.2)
[2018-05-10] MEDS: Chlorhexidine 0.12% Oral Kit 15 ML UDC OROPHARYNG SCH ×2 (17:16→20:30)
[2018-05-11] MEDS: Oral Hygiene Kit OROPHARYNG SCH ×5 (02:23→23:08)
[2018-05-11] MEDS: Clindamycin 900 mg/NS Premix 900 MG/50 ML PIGGYBACK IV.SIG SCH ×3 (02:23→18:05)
[2018-05-11] MEDS: Artificial Tears Opth Drops 15 ML Bottle EACH EYE SCH ×3 (05:36→20:20)
--- NOTE | 2018-05-11 08:04 | XR ---
EXAM DATE: 05/11/2018 7:59 AM EST AGE/SEX: 72 years / Male INDICATIONS: Shortness of breath. CLINICAL DATA: This is the patient's subsequent encounter. Patient reports that signs and symptoms h ave been present for 1 week and indicates a pain score of 0/10. MEDICAL/SURGICAL HISTORY: . Chronic obstructive pulmonary disease. Hypertension. MRSA. . Ches t tube right side. COMPARISON: [facility] [place], CHEST 1V SINGLE AP, 05/07/2018. . FINDINGS: Chest tube is in place on the right with complete opacification right hemithorax. Left lung is hyperinflated Cardiac silhouette is obscured. CONCLUSION: Significant deterioration appearance of the chest as above Findings discussed with Dr. Sejal Nagy Electronically signed by: Wali Raymond MD Board Certified Radiologist 05/11/2018 8:03 AM EST
[2018-05-11] MEDS: Metoprolol Tartrate 100 MG Tablet PO SCH ×2 (08:36→20:19)
[2018-05-11] MEDS: Famotidine PF Inj 20 MG/2 ML Vial IV.PUSH SCH ×2 (08:36→20:20)
[2018-05-11] MEDS: Docusate Sodium 100 MG Capsule PO SCH ×2 (08:36→20:19)
[2018-05-11] MEDS: Chlorhexidine 0.12% Oral Kit 15 ML UDC OROPHARYNG SCH ×2 (08:36→20:19)
[2018-05-11] MEDS: Enoxaparin Inj 40 MG/0.4 ML Syringe SQ SCH (08:37)
[2018-05-11] MEDS: Sennosides Liq 8.8 MG/5 ML UDC PO SCH (08:37)
[2018-05-11] MEDS: Collagenase Oint 30 GM Tube TOPICAL SCH (08:37)
[2018-05-11] MEDS: guaiFENesin 600 MG ER Tablet PO SCH ×2 (08:37→20:19)
[2018-05-11] MEDS: Sodium Chloride 0.9% 2 ML Flush BID IV.FLUSH SCH ×2 (08:37→20:19)
[2018-05-11] MEDS ORDERED: Etomidate Inj 40 MG/20 ML Vial IV.PUSH ONE ×2 (08:40→08:57)
[2018-05-11] MEDS ORDERED: fentaNYL Citrate Inj 100 MCG/2 ML Ampul IV.PUSH ONE (08:43)
[2018-05-11 08:55] LABS: Baso # (Auto) 0.1 th/mm3 (0.0-0.2); Baso % (Auto) 0.7 % (0.0-2.0); Eos # (Auto) 0.1 th/mm3 (0.0-0.4); Eos % (Auto) 1.3 % (0.0-4.0); Hematocrit 31.1 % (39.0-51.0); Hemoglobin 10.5 gm/dL (13.0-17.0); Lymph # (Auto) 0.8 th/mm3 (1.0-4.8); Lymph % (Auto) 7.9 % (9.0-44.0); Mean Corpuscular HGB Conc 33.7 % (32.0-36.0); Mean Corpuscular Hemoglobin 29.5 pg (27.0-34.0); Mean Corpuscular Volume 87.4 fL (80.0-100.0); Mean Platelet Volume 7.1 fL (7.0-11.0); Mono # (Auto) 1.2 th/mm3 (0.0-0.9); Mono % (Auto) 11.6 % (0.0-8.0); Neut # (Auto) 7.9 th/mm3 (1.8-7.7); Neut % (Auto) 78.5 % (16.0-70.0); Platelet Count 546 th/mm3 (150-450); Red Blood Count 3.56 mil/mm3 (4.50-5.90); Red Cell Distribution Width 14.6 % (11.6-17.2); White Blood Count 10.1 th/mm3 (4.0-11.0)
--- NOTE | 2018-05-11 08:56 | P.PNCC ---
Subjective Subjective Remarks/Hospital Course: Patient is 72-year-old male with past medical history of COPD, tobacco abuse and hypertension who came to the emergency room for shortness of breath via EMS. On EMS arrival saturation was in the 90s, but patient had significant shortness of breath and dyspnea. Patient received Solu-Medrol 125 mg IV and breathing treatments by EMS and was brought to the emergency department. In the emergency department patient received further breathing treatments and chest x-ray showed patchy infiltrate on bilateral lung fitzgerald. Initially maintaining oxygen saturation with nasal cannula. Initial blood pressure was 85 /65, improved with normal saline boluses. WBC count was 17.1. Patient was deemed septic from pneumonia and patient was ordered to receive vancomycin and Zosyn. While receiving vancomycin patient acutely decompensated became extremely short of breath and developed erythematous maculopapular rash involving face torso armpits and groin region. Emergently intubated and placed on mechanical ventilation by the ED physician. Received IV 50 mg Benadryl. Critical care medicine was requested to admit the patient. I evaluated the patient immediately in the emergency department. Patient is intubated on Versed and fentanyl infusion however he is very asynchronous with the vent triggering ventilator alarms. Severe bilateral expiratory wheezing heard on auscultation. He has extensive skin rash predominantly face forehead torso armpit and groins. Appears like patient had anaphylactic reaction to vancomycin complicated by COPD exacerbation and pneumonia. I have ordered additional Solu-Medrol 100 mg x1 scheduled Benadryl and famotidine, antibiotics with cefepime and Levaquin. Increase Versed infusion, add propofol and use neuromuscular paralysis as needed. Will request pharmacy to add vancomycin to allergy. ED physician Dr. Slater had noticed that patient had some swelling on the left side of his face on arrival, however the skin rash after vancomycin was started was new. Patient remains hypotensive has received 2 L of normal saline in the emergency department and no significant urine output. I have ordered additional 2 L normal saline bolus and maintenance fluid at 84 mL/h. Use Levophed as needed to keep map above 65 Subjective 04/06: Off norepinephrine drip. Currently resting in bed in no acute distress on midazolam and fentanyl drips. Start tube feeding today. 04/07: Remains sedated, intubated on mechanical ventilation. Blood cultures growing MRSA 04/08: remains sedated and intubated. repeat cultures still growing MRSA 2/4 cultures. likely need to repeat BCx either today or tomorrow. agree with narrowing spectrum abx. performed DEEDEE at ID recommendation (need to r/o endocarditis), but no evidence of vegetations. remains hypoxic. off vasopressors today. 04/09: adequate auto-diuresis overnight. off vasopressors. on sedation vacation. hypoxia improving. 04/10 Patient remains intubated and sedated with Fentanyl infusion. Became tachycardic and tachypneic overnight requiring increase sedation. Afebrile. 04/11 Patient is intubated and sedated. Afebrile. 04/12 Patient remains intubated and sedated with Diprivan and Fentanyl infusion, Afebrile. 04/13: Sedated, easily arousable, orally intubated on mechanical ventilation. 04/14 Patient was extubated yesterday. Afebrile. 04/15 Patient is lying in bed in NAD. On 3L oxygen. Awake and alert. 04/16 Patient is on partial rebreather. Afebrile. Awake and alert. 04/17: Left-sided chest tube placed for pneumothorax yesterday. On nasal cannula currently. Awake and alert. Appears comfortable. No air leak noted in Pleur-evac 04/18: Remains on nasal cannula. No air leak noted from left-sided chest tube. 04/19: On 5 L nasal cannula. Chest tube in place, no air leak noted. Resting in bed comfortably, no acute distress. Continues to have productive cough. 04/20: Remains on nasal cannula. Chest tube in place, no air leak noted. Resting in bed comfortably. 04/24: RECONSULT NOTE: called emergently by Hospitalist team. patient with new acute respiratory distress. Chest x-ray demonstrates new large right-sided pneumothorax. I went to evaluate the patient is seen in significant distress. I emergently placed right-sided pigtail chest tube. Significant denney of air with no air leak on chest tube. Respiratory distress improved after chest tube placement. Repeat interval chest x-ray demonstrates good placement of chest tube with resolution of pneumothorax. 04/26/18: RECONSULT NOTE: [facility] reconsulted for rexpansion of right pneumothorax. Patient developed increased SOB today without improvement with nebulizer. STAT CXR Moderate to large right pneumothorax has redeveloped and with a probable tension component. He appears to be in moderate distress tachypneic. Patient was moved to the ICU where I evaluated the patient emergently. The right pigtail chest tube is still in place, minimal air leak. I flushed the chest tube but was difficult to withdraw air. I then pulled back the chest tube by approximately 3 cm. Able to withdraw air more easily and on connection to the Vacutainer again there was significant air leak in all chambers. Patient subjectively felt improvement in shortness of breath after chest tube placement. Stat repeat chest x-ray shows near complete reexpansion of the right knee 04/30/18: [facility] RECONSULT NOTE: Critical care, reconsult for worsening respiratory failure. I evaluate the patient urgently. He is very tachypneic diaphoretic. Chest x-ray today showed possible right upper lobe pneumothorax and increasing right effusion. I did an emergent bedside ultrasound which shows probably loculated complicated right pleural effusion. Patient likely needs more further imaging and procedures and in very labored breathing. Proceeded with endotracheal intubation in place patient on mechanical ventilation. I explained plan of care prior to intubation. He understands that he may need emergency chest tube placement and also may need surgical intervention 05/01/18: Patient remains intubated sedated. Hypotensive on 75 mcg/min of Beau- Synephrine. While sedated. CT chest showed severe right lower lung consolidation large pneumothorax/hydropneumothorax on the right side. Plan for large bore chest tube and central line today. Also cardiothoracic surgery was consulted, and I discussed with Dr. Schaeffer. I will plan for a large bore chest tube to the right side followed by a central line placement. 05/02/18: Patient remains intubated heavily sedated for vent synchrony. Right chest tube with large air leak in all chambers. There is possibility of bronchopleural fistula. Chest x-ray shows improved air entry right lung. Discussed with cardiothoracic surgery Dr. Ontiveros today. Will repeat CT scan to see if lung is reexpanding. May need decortication procedure 05/03/18: Patient remains intubated sedated persistent large air leak. CT reviewed with cardiothoracic surgery Dr. Ontiveros. Will discuss with Dr. Schaeffer in a.m. Probably will benefit from decortication due to the hydropneumothorax and persistent pleural effusions which probably are empyema. Otherwise patient remains critically ill clinically same. Bron cultures growing staph aureus still 05/04/18: Patient remains sedated critically ill. Chest x-ray shows mostly expanded right lung but with persistent loculated apical pneumothorax and right lower effusion. Plan for surgical intervention by Dr. Schaeffer 05/05/2018 possible decortication. Continue broad-spectrum antibiotics 05/05: Remains sedated, orally intubated on mechanical ventilation. Awaiting OR today for decortication and drainage of loculated effusion and possible repair of air leak site. 05/06: Remains sedated, orally intubated on mechanical ventilation. Status post right VATS with decortication on 05/05. [address] on the right with positive air leak. Subcutaneous emphysema decreasing. 05/07: Remains sedated, orally intubated on mechanical ventilation. Status post right VATS with decortication on 05/05. [address] on the right with positive air leak. Starting tube feeds and CPAP trials 05/08: Remains sedated, orally intubated on mechanical ventilation. Air leak persists from right-sided chest tube 05/09: Sedated, arousable, orally intubated on mechanical ventilation. 1+ air leak from right-sided chest tube noted. On CPAP trial. 05/10: Extubated yesterday. Slightly tachypneic. On nonrebreather facemask this morning. Air leak absent from right chest tube. 05/11: Patient on facemask O2. No air leak noted in right-sided chest tubes this morning. Chest x-ray reveals complete whiteout over right lung field raising concern for mucous plugging. Plan for intubation followed by bronchoscopy and BAL and then attempt to extubate patient. Objective Vital Signs / I&O: Vital Signs 05/10/18 09:00 05/10/18 10:00 05/10/18 11:00 Temperature Pulse Rate 116 H 120 H 96 H Respiratory Rate 26 H 31 H 33 H Blood Pressure 113/72 111/77 119/81 Pulse Oximetry 100 94 L 99 05/10/18 12:00 05/10/18 13:00 05/10/18 13:39 Temperature 98.3 F Pulse Rate 97 H 99 H Respiratory Rate 28 H 29 H Blood Pressure 124/85 115/79 Pulse Oximetry 94 L 97 98 05/10/18 14:00 05/10/18 15:00 05/10/18 15:05 Temperature Pulse Rate 99 H 101 H 100 H Respiratory Rate 32 H 31 H 31 H Blood Pressure 116/85 119/84 Pulse Oximetry 97 100 05/10/18 16:00 05/10/18 17:00 05/10/18 17:02 Temperature 97.8 F Pulse Rate 104 H 103 H 107 H Respiratory Rate 32 H 28 H 36 H Blood Pressure 123/88 125/79 Pulse Oximetry 98 100 100 05/10/18 18:00 05/10/18 19:27 05/10/18 20:00 Temperature 97.7 F Pulse Rate 103 H 106 H 103 H Respiratory Rate 35 H 26 H 24 Blood Pressure 122/82 116/71 Pulse Oximetry 93 L 98 94 L 05/10/18 22:00 05/10/18 23:57 05/11/18 00:00 Temperature 98.1 F Pulse Rate 98 H 94 H Respiratory Rate 29 H Blood Pressure 128/86 Pulse Oximetry 95 96 05/11/18 02:00 05/11/18 03:31 05/11/18 04:00 Temperature 98.1 F Pulse Rate 97 H 97 H 100 H Respiratory Rate 22 31 H Blood Pressure 116/80 Pulse Oximetry 96 05/11/18 06:00 05/11/18 08:00 Temperature 98.0 F Pulse Rate 102 H 106 H Respiratory Rate 31 H Blood Pressure 118/76 Pulse Oximetry 93 L Intake & Output 05/10/18 05/11/18 05/11/18 18:59 06:59 18:59 Intake Total 560 / 560 460 / 460 450 / 450 Output Total 405 / 405 150 / 150 Balance 155 / 155 310 / 310 450 / 450 Weight 70.7 kg Intake: IV 200 / 200 400 / 400 450 / 450 Teflaro Inj 600 MG In NS Inj 100 / 100 100 / 100 100 / 100 100 ML @ 100 mls/hr IV.SIG Q8H [facility] Rx#:[id number] Cleocin 900 mg/NS Premix 900 mg 100 / 100 50 / 50 In 50 ml @ 100 mls/hr IV.SIG Q8H [facility] Rx#:[id number] Zyvox 600 mg Premix 300 ML @ 300 / 300 300 / 300 300 mls/hr IV.SIG Q12H [facility] Rx#: [id number] Oral 360 / 360 60 / 60 Output: Urine 325 / 325 150 / 150 Chest Tube Drainage 80 / 80 Right Anterior Y Connected 80 / 80 Other: # Voids 2 # Incontinent Voids 2 2 Date of Last Bowel Movement 05/10/18 05/10/18 # Incontinent Bowel Movements 1 1 Result Diagrams: 05/10/18 05:11 05/10/18 12:05 Imaging: Impressions Chest X-Ray 05/11/18 06:46 CONCLUSION: Complete white out of right lung field with volume loss suggesting atelectasis. Findings were personally discussed with radiology chest x-ray was personally reviewed and interpreted by me. Objective Remarks: GENERAL: Patient is lying in bed on nonrebreather facemask slightly tachypneic. SKIN: Warm and dry. HEAD: Atraumatic. Normocephalic. EYES: Pupils equal and round. No scleral icterus. ENT: No nasal bleeding or discharge. Mucous membranes moist. NECK: Trachea midline. No JVD. CARDIOVASCULAR: S1-S2 normal no murmur RESPIRATORY: Good air entry bilaterally, scattered rhonchi bilaterally. Dressing over surgical site. Chest tube x2 to the right with no airleak GASTROINTESTINAL: Abdomen soft, non-tender, nondistended. no guarding. MUSCULOSKELETAL: Extremities without clubbing, cyanosis, or edema. No obvious deformities. NEUROLOGICAL: Awake, alert, following commands. Moves all extremities withdraws to pain. No focal deficits Assessment and Plan - Problem List (1) Anaphylaxis Code(s): T78.2XXA - Anaphylactic shock, unspecified, initial encounter Status : Acute (2) COPD with acute exacerbation Code(s): J44.1 - Chronic obstructive pulmonary disease with (acute) exacerbation Status: Acute (3) Bilateral pneumonia Code(s): J18.9 - Pneumonia, unspecified organism Status: Acute (4) Allergic reaction caused by a drug Code(s): T78.40XA - Allergy, unspecified, initial encounter Status: Acute (5) Acute respiratory failure Code(s): J96.00 - Acute respiratory failure, unspecified whether with hypoxia or hypercapnia Status: Acute (6) Severe sepsis Code(s): A41.9 - Sepsis, unspecified organism; R65.20 - Severe sepsis without septic shock Status: Acute (7) Leukocytosis Code(s): D72.829 - Elevated white blood cell count, unspecified Status: Acute (8) Hypotension Code(s): I95.9 - Hypotension, unspecified Status: Acute (9) Acute kidney injury Code(s): N17.9 - Acute kidney failure, unspecified Status: Acute (10) Hyponatremia Code(s): E87.1 - Hypo-osmolality and hyponatremia Status: Acute (11) Hyperglycemia Code(s): R73.9 - Hyperglycemia, unspecified Status: Acute (12) History of hypertension Code(s): Z86.79 - Personal history of other diseases of the circulatory system Status: Chronic (13) Tobacco abuse Code(s): Z72.0 - Tobacco use Status: Chronic (14) History of COPD Code(s): Z87.09 - Personal history of other diseases of the respiratory system Status: Chronic - Assessment and Plan Plan: Assessment: 72-year-old male with known necrotizing MRSA pneumonia and hypoxemia requiring supplemental oxygenation now with acute respiratory distress secondary to acute right pneumothorax. Status post emergent chest tube decompression. Previously was transferred to [facility] service now reconsulted 04/30/2018 now with what appears to be persistent right pneumothorax and loculated complicated right pleural effusion most likely parapneumonic. Intubated large bore chest tube placed 05/01/2018. With air leak, septic shock from necrotizing MRSA pneumonia. Prognosis appears guarded Active problems: Acute hypoxemic respiratory failure Persistent right-sided pneumothorax Right-sided complicated pleural effusion, probable empyema MRSA pneumonia with probable lung abscess Severe necrotizing pneumonia Probable septic emboli to the left lung Septic shock COPD with exacerbation MRSA bacteremia MRSA pneumonia Plan: NEURO: -Off sedation. Pain medications as needed. Follow neuro status RESP: -Extubated on 05/09. -DuoNeb every 4 hours scheduled and as needed -CT of the chest 04/30/2018 shows large persistent right pneumothorax pl effusion and significant right lower lung consolidation with probable cavitation /abscess -s/p 28 Monegasque chest tube to the right side, now with reexpansion of the lung but continued air leak -Dr. Carey did bronchoscopy- large amount of mucus plugging removed from right upper lobe -Repeat CT chest shows good reexpansion of the right lung. Persistent hydropneumothorax apically and right lower lung region. Loculated hydropneumothorax may be empyema -Infectious disease and Pulmonology is following. CT surgery following -Status post right VATS with decortication 05/05/2018 -Continue antibiotics per ID Extubated on 05/09 following CPAP trial currently on facemask. Chest x-ray from 05/11 shows white out on the right side suggesting atelectasis, suspect mucous plugging. Planning intubation for bronchoscopy and BAL followed by attempted extubation later in the day. CV: -Normal saline IV fluids 100 ml per hour -Not requiring pressors. GI: -IV famotidine -N.p.o. until completion of procedure and if extubated will obtain swallow eval for tube feeds. : -Monitor renal function closely. Shine catheter in anticipation of ID: -Antibiotics per ID. Currently on Teflaro and clindamycin for Zyvox resistant staph aureus -Further cultures per ID -[id number] cultures -Status post right VATS with decortication on 05/05 HEME: -Monitor CBC, coags ENDO: -Electrolyte replacement per protocol -Sliding scale insulin if needed PROPH: -Bilateral lower extremity SCDs. /famotidine. Resume lovenox 05/07 LINES: -Utilize peripheral IVs, right subclavian central line placed 05/01/18 Dr. Bustos updated patient's daughter on the phone 05/01/2018 Discussed plan of care with patient who voiced understanding and was agreeable for proceeding with intubation and bronchoscopy/BAL for suspected mucous plugging on 05/11 (1) Anaphylaxis Qualifiers: Encounter type: initial encounter Qualified Code(s): T78.2XXA - Anaphylactic shock, unspecified, initial encounter (3) Bilateral pneumonia Qualifiers: Pneumonia type: due to unspecified organism Lung location: unspecified part of lung Qualified Code(s): J18.9 - Pneumonia, unspecified organism (4) Allergic reaction caused by a drug Qualifiers: Encounter type: initial encounter Qualified Code(s): T78.40XA - Allergy, unspecified, initial encounter (5) Acute respiratory failure Qualifiers: Respiratory failure complication: unspecified whether with hypoxia or hypercapnia Qualified Code(s): J96.00 - Acute respiratory failure, unspecified whether with hypoxia or hypercapnia (7) Leukocytosis Qualifiers: Leukocytosis type: unspecified Qualified Code(s): D72.829 - Elevated white blood cell count, unspecified (8) Hypotension Qualifiers: Hypotension type: unspecified hypotension type Qualified Code(s): I95.9 - Hypotension, unspecified
[2018-05-11] MEDS ORDERED: fentaNYL Citrate Inj 100 MCG/2 ML Ampul ONE (08:57)
[2018-05-11] MEDS: Propofol 1000 mg/100 ml Inj 1,000 MG/100 ML BOTTLE IV.CONT PRN (09:17)
[2018-05-11 09:25] LABS: Albumin 1.7 g/dL (3.4-5.0); Anion Gap 7 meq/L (5-15); Aspartate Aminotransferase 29 U/L (15-37); Blood Urea Nitrogen 20 mg/dL (7-18); Calcium 8.6 mg/dL (8.5-10.1); Carbon Dioxide 31.8 meq/L (21.0-32.0); Chloride 99 meq/L (98-107); Glomerular Filtration Rate Greater Than 89 mL/min (>89); Glucose,Random 100 mg/dL (74-106); Potassium 3.2 meq/L (3.5-5.1); Sodium 138 meq/L (136-145)
[2018-05-11 09:32] LABS: Alanine Aminotransferase 58 U/L (12-78); Alkaline Phosphatase 94 U/L (45-117); Total Protein 6.2 g/dL (6.4-8.2)
--- NOTE | 2018-05-11 10:07 | P.PCN ---
Date of procedure: 05/11/18 Pre-op diagnosis: Acute respiratory failure, right lung atelectasis with suspected mucus plug Post-op diagnosis: same Procedure: Bronchoscopy with BAL Procedure: fiberoptic bronchoscopy for bronchoscopy/ BAL Indication: Pulmonary toilet/mucous plugging with right lung atelectasis. Operators: Dr. Hung Nagy Informed consent obtained from patient and documented in chart Anesthesia used etomidate 40 mg IV, Fentanyl 100mcg IV, Rocuronium 50 mg IV for neuromuscular blockade. Propofol IV infusion: Procedure: Patient was placed on 100% oxygen via ET tube/mechanical ventilator. After ensuring adequate sedation/analgesia/ neuromuscular blockade, fiberoptic bronchoscope was inserted via adapter on ET tube and advanced into the trachea upto the haseeb. Mucosa appeared normal with no erythema. Subsequently bronchoscope was advanced into the right mainstem bronchus and right sided airways. Extensive mucous plugging noted in right mainstem bronchus and subsegmental right-sided airways. Bronchoalveolar lavage was performed with extensive mucous plugs being suctioned out from right-sided airways. Subsequently bronchoscope was withdrawn up to the haseeb and inserted down the left-sided airways. Mucosa appeared normal, minimal mucous suctioned out from the left side. Patient tolerated the procedure well with no immediate complications noted. Post procedure CXR ordered and was pending. Will f/u when available. No air leak noted in right sided chest tube following procedure. Pathology: none sent Condition: critical Disposition: ICU
--- NOTE | 2018-05-11 10:11 | P.PCN ---
Date of procedure: 05/11/18 Pre-op diagnosis: Acute respiratory failure on mechanical ventilation, right lung atelectasis Post-op diagnosis: same Procedure: Procedure: Endotracheal intubation Indication: Bronchoscopy with BAL for suspected mucous plugging Sedation used: Etomidate 40 mg, fentanyl 100 Mcg, rocuronium 50 mg IV Procedure: Patient was preoxygenated with 100% oxygen via Ambu bag with bag mask ventilation, following induction of sedation and neuromuscular blockade, direct laryngoscopy was performed using a Mac 4 blade. Floppy epiglottis noted obstructing view of vocal cords. An 8 English ET tube was passed through the vocal cords up to the 22 centimeter khris and after inflating cuff of ET tube, correct placement was confirmed using bagging with good color change on CO2 detector, 5 point auscultation and chest rise with ventilation. Patient was connected to mechanical ventilation. Patient tolerated the procedure well with no immediate complications noted. Following intubation, we proceeded with fiberoptic bronchoscopy/BAL. postprocedure chest x-ray was ordered. Pathology: none sent Condition: critical Disposition: ICU
--- NOTE | 2018-05-11 10:48 | XR ---
EXAM DATE: 05/11/2018 10:44 AM EST AGE/SEX: 72 years / Male INDICATIONS: Post right bronchoscopy. CLINICAL DATA: This is the patient's subsequent encounter. Patient reports that signs and symptoms h ave been present for 1 week and indicates a pain score of 0/10. MEDICAL/SURGICAL HISTORY: . Chronic obstructive pulmonary disease. Hypertension. MRSA. . Ches t tube right side. COMPARISON: [facility] [place], CHEST 1V SINGLE AP, 05/11/2018. . FINDINGS: There is improved aeration of the right lung (complete white out on chest x-ray earlier today), with some patchy areas of consolidative opacity in the right upper and right lower lung. Portions of the r ight hemidiaphragm are now discernible with loss of delineation laterally and meniscal interface with lateral pleural thickening up to the apex. Right chest tube tip projects at the apex. ET tube tip we ll above the haseeb. Right central line tip at the cavoatrial junction. The left lung is clear. Moder ate tortuosity of the thoracic aorta. Heart size is normal. CONCLUSION: Improved aeration of the right lung with residual patchy areas of infiltrate in the upper and lower l ungs and residual moderate size pleural effusion. No pneumothorax seen. Electronically signed by: Leonard Nielson MD Board Certified Radiologist 05/11/2018 10:47 AM EST
--- NOTE | 2018-05-11 15:47 | P.PNPL ---
Subjective Interval history: 72 YOWM with MRSA Pn, cavitary lesion, COPD, Lt ptx mild sob Was extubated Developed Atelactesis Reintubated, had bronch Mucous plugs removed On CPAP Physical Exam Vital signs: Vital Signs 05/10/18 16:00 05/10/18 17:00 05/10/18 17:02 Temperature 97.8 F Pulse Rate 104 H 103 H 107 H Respiratory Rate 32 H 28 H 36 H Blood Pressure 123/88 125/79 Pulse Oximetry 98 100 100 05/10/18 18:00 05/10/18 19:27 05/10/18 20:00 Temperature 97.7 F Pulse Rate 103 H 106 H 103 H Respiratory Rate 35 H 26 H 24 Blood Pressure 122/82 116/71 Pulse Oximetry 93 L 98 94 L 05/10/18 22:00 05/10/18 23:57 05/11/18 00:00 Temperature 98.1 F Pulse Rate 98 H 94 H Respiratory Rate 29 H Blood Pressure 128/86 Pulse Oximetry 95 96 05/11/18 02:00 05/11/18 03:31 05/11/18 04:00 Temperature 98.1 F Pulse Rate 97 H 97 H 100 H Respiratory Rate 22 31 H Blood Pressure 116/80 Pulse Oximetry 96 05/11/18 06:00 05/11/18 08:00 05/11/18 09:51 Temperature 98.0 F Pulse Rate 102 H 106 H 109 H Respiratory Rate 31 H 20 Blood Pressure 118/76 Pulse Oximetry 93 L 05/11/18 09:59 05/11/18 10:00 05/11/18 11:58 Temperature Pulse Rate 111 H Respiratory Rate 26 H Blood Pressure Pulse Oximetry 100 95 05/11/18 12:00 05/11/18 14:00 05/11/18 14:21 Temperature 97.6 F Pulse Rate 109 H 112 H Respiratory Rate 24 30 H Blood Pressure 89/62 L Pulse Oximetry 98 95 05/11/18 14:24 Temperature Pulse Rate 117 H Respiratory Rate 32 H Blood Pressure Pulse Oximetry Intake & Output 05/10/18 05/11/18 05/11/18 18:59 06:59 18:59 Intake Total 560 / 560 560 / 560 600 / 600 Output Total 405 / 405 150 / 150 Balance 155 / 155 410 / 410 600 / 600 Weight 70.7 kg Intake: IV 200 / 200 500 / 500 600 / 600 Diprivan 1000 mg/100 ml Inj 1, 100 / 100 000 mg In 100 ml @ 5 MCG/KG/MIN 2.265 mls/hr IV.CONT TITRATE PRN Rx#:[id number] Teflaro Inj 600 MG In NS Inj 100 / 100 100 / 100 200 / 200 100 ML @ 100 mls/hr IV.SIG Q8H [facility] Rx#:[id number] Cleocin 900 mg/NS Premix 900 mg 100 / 100 100 / 100 In 50 ml @ 100 mls/hr IV.SIG Q8H [place] Rx#:[id number] Zyvox 600 mg Premix 300 ML @ 300 / 300 300 / 300 300 mls/hr IV.SIG Q12H [facility] Rx#: [id number] Oral 360 / 360 60 / 60 Output: Urine 325 / 325 150 / 150 Chest Tube Drainage 80 / 80 Right Anterior Y Connected 80 / 80 Other: # Voids 2 # Incontinent Voids 2 2 Date of Last Bowel Movement 05/10/18 05/10/18 05/10/18 # Incontinent Bowel Movements 1 1 GENERAL: Elderly WM, on vent Awake, follows commands. SKIN: Warm and dry. HEAD: Normocephalic. EYES: No scleral icterus. No injection or drainage. NECK: Supple, trachea midline. No JVD or lymphadenopathy. CARDIOVASCULAR: Regular rate and rhythm without murmurs, gallops, or rubs. RESPIRATORY: Breath sounds equal bilaterally. No accessory muscle use. Rt chest tube draining GASTROINTESTINAL: Abdomen soft, non-tender, nondistended. MUSCULOSKELETAL: No cyanosis, or edema. BACK: Nontender without obvious deformity. No CVA tenderness. - Urinary Catheter Management Indwelling Urethral Catheter Cath placed during this visit: yes, but has since been removed by the nurse Reason for continuing: Acute urinary retention Insertion date: 04/05/18 Insertion time: 23:00 Removal date: 04/12/18 Removal time: 08:30 Condom Cath placed during this visit: no Reason for continuing: Acute urinary retention Straight Cath placed during this visit: yes, but has since been removed by the nurse Reason for continuing: Not indwelling catheter Insertion date: 05/06/18 Insertion time: 18:00 Removal date: 05/06/18 Removal time: 18:10 Indwelling Temp Sensing Catheter Cath placed during this visit: yes, but has since been removed by the nurse Reason for continuing: Hourly intake/output Insertion date: 05/05/18 Insertion time: 12:15 Removal date: 05/05/18 Removal time: 15:00 Assessment and Plan - Plan IMPRESSION: 1. MRSA pneumonia. 2. Cavitary pneumonia. 4. Chronic obstructive pulmonary disease. 5. Hypotension. 6. Left pneumothorax, status post chest tube.removal 7. Nicotine use. 8. Right Ptx 9. VDRF PLAN: Cont Abx per ID Aerosol nebs Vent Support Chest tube to suction plan to extubate today
[2018-05-12] MEDS: Clindamycin 900 mg/NS Premix 900 MG/50 ML PIGGYBACK IV.SIG SCH ×3 (01:04→17:52)
[2018-05-12] MEDS: Oral Hygiene Kit OROPHARYNG SCH ×3 (03:03→15:37)
[2018-05-12] MEDS: Artificial Tears Opth Drops 15 ML Bottle EACH EYE SCH ×3 (04:08→20:49)
[2018-05-12 07:43] LABS: Baso # (Auto) 0.1 th/mm3 (0.0-0.2); Baso % (Auto) 0.6 % (0.0-2.0); Eos # (Auto) 0.1 th/mm3 (0.0-0.4); Eos % (Auto) 1.2 % (0.0-4.0); Hematocrit 32.5 % (39.0-51.0); Hemoglobin 10.6 gm/dL (13.0-17.0); Lymph # (Auto) 0.9 th/mm3 (1.0-4.8); Lymph % (Auto) 7.3 % (9.0-44.0); Mean Corpuscular HGB Conc 32.6 % (32.0-36.0); Mean Corpuscular Hemoglobin 28.6 pg (27.0-34.0); Mean Corpuscular Volume 87.7 fL (80.0-100.0); Mean Platelet Volume 7.2 fL (7.0-11.0); Mono # (Auto) 1.3 th/mm3 (0.0-0.9); Mono % (Auto) 10.9 % (0.0-8.0); Neut # (Auto) 9.3 th/mm3 (1.8-7.7); Platelet Count 521 th/mm3 (150-450); White Blood Count 11.6 th/mm3 (4.0-11.0)
[2018-05-12 08:14] LABS: Albumin 1.6 g/dL (3.4-5.0); Anion Gap 7 meq/L (5-15); Aspartate Aminotransferase 21 U/L (15-37); Blood Urea Nitrogen 17 mg/dL (7-18); Calcium 8.2 mg/dL (8.5-10.1); Carbon Dioxide 32.7 meq/L (21.0-32.0); Chloride 101 meq/L (98-107); Glomerular Filtration Rate Greater Than 89 mL/min (>89); Glucose,Random 86 mg/dL (74-106); Potassium 3.1 meq/L (3.5-5.1); Sodium 141 meq/L (136-145)
[2018-05-12] MEDS: Enoxaparin Inj 40 MG/0.4 ML Syringe SQ SCH (08:15)
[2018-05-12] MEDS: Docusate Sodium 100 MG Capsule PO SCH ×2 (08:15→20:47)
[2018-05-12] MEDS: Chlorhexidine 0.12% Oral Kit 15 ML UDC OROPHARYNG SCH ×2 (08:15→20:00)
[2018-05-12] MEDS: Famotidine PF Inj 20 MG/2 ML Vial IV.PUSH SCH ×2 (08:16→20:47)
[2018-05-12] MEDS: guaiFENesin 600 MG ER Tablet PO SCH ×2 (08:16→20:47)
[2018-05-12] MEDS: Metoprolol Tartrate 100 MG Tablet PO SCH ×2 (08:16→20:47)
[2018-05-12] MEDS: Sodium Chloride 0.9% 2 ML Flush BID IV.FLUSH SCH ×2 (08:16→20:48)
[2018-05-12 08:17] LABS: Alanine Aminotransferase 43 U/L (12-78); Alkaline Phosphatase 89 U/L (45-117)
[2018-05-12] MEDS: Collagenase Oint 30 GM Tube TOPICAL SCH (08:17)
[2018-05-12] MEDS: Sennosides Liq 8.8 MG/5 ML UDC PO SCH (08:17)
--- NOTE | 2018-05-12 08:55 | XR ---
EXAM DATE: 05/12/2018 8:44 AM EST AGE/SEX: 72 years / Male INDICATIONS: Short of breath. CLINICAL DATA: This is the patient's initial encounter. Patient reports that signs and symptoms have been present for 4 - 6 days and indicates a pain score of 8/10. MEDICAL/SURGICAL HISTORY: . Chronic obstructive pulmonary disease. Hypertension. MRSA. . Chest tube. COMPARISON: [facility] – [place], CHEST 1V SINGLE AP, 05/11/2018. . FINDINGS: Slight left lung base atelectasis and/or infiltrate is seen. Right chest tube is in place. No definite pneumothorax is seen for technique. Parenchymal process is again seen in right perihilar location extending into upper and lower lung fitzgerald not significantly changed. ET tube is no longer s een Small right pleural effusion may be present. The rest of the examination has not changed. CONCLUSION: Slight left lung base atelectasis and/or infiltrate is seen not present previously, otherwise not pearl nged . Electronically signed by: Yves Garcia MD Board Certified Radiologist 05/12/2018 8:54 AM EST
--- NOTE | 2018-05-12 09:00 | P.PNCC ---
Subjective Subjective Remarks/Hospital Course: Patient is 72-year-old male with past medical history of COPD, tobacco abuse and hypertension who came to the emergency room for shortness of breath via EMS. On EMS arrival saturation was in the 90s, but patient had significant shortness of breath and dyspnea. Patient received Solu-Medrol 125 mg IV and breathing treatments by EMS and was brought to the emergency department. In the emergency department patient received further breathing treatments and chest x-ray showed patchy infiltrate on bilateral lung fitzgerald. Initially maintaining oxygen saturation with nasal cannula. Initial blood pressure was 85 /65, improved with normal saline boluses. WBC count was 17.1. Patient was deemed septic from pneumonia and patient was ordered to receive vancomycin and Zosyn. While receiving vancomycin patient acutely decompensated became extremely short of breath and developed erythematous maculopapular rash involving face torso armpits and groin region. Emergently intubated and placed on mechanical ventilation by the ED physician. Received IV 50 mg Benadryl. Critical care medicine was requested to admit the patient. I evaluated the patient immediately in the emergency department. Patient is intubated on Versed and fentanyl infusion however he is very asynchronous with the vent triggering ventilator alarms. Severe bilateral expiratory wheezing heard on auscultation. He has extensive skin rash predominantly face forehead torso armpit and groins. Appears like patient had anaphylactic reaction to vancomycin complicated by COPD exacerbation and pneumonia. I have ordered additional Solu-Medrol 100 mg x1 scheduled Benadryl and famotidine, antibiotics with cefepime and Levaquin. Increase Versed infusion, add propofol and use neuromuscular paralysis as needed. Will request pharmacy to add vancomycin to allergy. ED physician Dr. Slater had noticed that patient had some swelling on the left side of his face on arrival, however the skin rash after vancomycin was started was new. Patient remains hypotensive has received 2 L of normal saline in the emergency department and no significant urine output. I have ordered additional 2 L normal saline bolus and maintenance fluid at 84 mL/h. Use Levophed as needed to keep map above 65 Subjective 04/06: Off norepinephrine drip. Currently resting in bed in no acute distress on midazolam and fentanyl drips. Start tube feeding today. 04/07: Remains sedated, intubated on mechanical ventilation. Blood cultures growing MRSA 04/08: remains sedated and intubated. repeat cultures still growing MRSA 2/4 cultures. likely need to repeat BCx either today or tomorrow. agree with narrowing spectrum abx. performed DEEDEE at ID recommendation (need to r/o endocarditis), but no evidence of vegetations. remains hypoxic. off vasopressors today. 04/09: adequate auto-diuresis overnight. off vasopressors. on sedation vacation. hypoxia improving. 04/10 Patient remains intubated and sedated with Fentanyl infusion. Became tachycardic and tachypneic overnight requiring increase sedation. Afebrile. 04/11 Patient is intubated and sedated. Afebrile. 04/12 Patient remains intubated and sedated with Diprivan and Fentanyl infusion, Afebrile. 04/13: Sedated, easily arousable, orally intubated on mechanical ventilation. 04/14 Patient was extubated yesterday. Afebrile. 04/15 Patient is lying in bed in NAD. On 3L oxygen. Awake and alert. 04/16 Patient is on partial rebreather. Afebrile. Awake and alert. 04/17: Left-sided chest tube placed for pneumothorax yesterday. On nasal cannula currently. Awake and alert. Appears comfortable. No air leak noted in Pleur-evac 04/18: Remains on nasal cannula. No air leak noted from left-sided chest tube. 04/19: On 5 L nasal cannula. Chest tube in place, no air leak noted. Resting in bed comfortably, no acute distress. Continues to have productive cough. 04/20: Remains on nasal cannula. Chest tube in place, no air leak noted. Resting in bed comfortably. 04/24: RECONSULT NOTE: called emergently by Hospitalist team. patient with new acute respiratory distress. Chest x-ray demonstrates new large right-sided pneumothorax. I went to evaluate the patient is seen in significant distress. I emergently placed right-sided pigtail chest tube. Significant denney of air with no air leak on chest tube. Respiratory distress improved after chest tube placement. Repeat interval chest x-ray demonstrates good placement of chest tube with resolution of pneumothorax. 04/26/18: RECONSULT NOTE: [facility] reconsulted for rexpansion of right pneumothorax. Patient developed increased SOB today without improvement with nebulizer. STAT CXR Moderate to large right pneumothorax has redeveloped and with a probable tension component. He appears to be in moderate distress tachypneic. Patient was moved to the ICU where I evaluated the patient emergently. The right pigtail chest tube is still in place, minimal air leak. I flushed the chest tube but was difficult to withdraw air. I then pulled back the chest tube by approximately 3 cm. Able to withdraw air more easily and on connection to the Vacutainer again there was significant air leak in all chambers. Patient subjectively felt improvement in shortness of breath after chest tube placement. Stat repeat chest x-ray shows near complete reexpansion of the right knee 04/30/18: [facility] RECONSULT NOTE: Critical care, reconsult for worsening respiratory failure. I evaluate the patient urgently. He is very tachypneic diaphoretic. Chest x-ray today showed possible right upper lobe pneumothorax and increasing right effusion. I did an emergent bedside ultrasound which shows probably loculated complicated right pleural effusion. Patient likely needs more further imaging and procedures and in very labored breathing. Proceeded with endotracheal intubation in place patient on mechanical ventilation. I explained plan of care prior to intubation. He understands that he may need emergency chest tube placement and also may need surgical intervention 05/01/18: Patient remains intubated sedated. Hypotensive on 75 mcg/min of Beau- Synephrine. While sedated. CT chest showed severe right lower lung consolidation large pneumothorax/hydropneumothorax on the right side. Plan for large bore chest tube and central line today. Also cardiothoracic surgery was consulted, and I discussed with Dr. Schaeffer. I will plan for a large bore chest tube to the right side followed by a central line placement. 05/02/18: Patient remains intubated heavily sedated for vent synchrony. Right chest tube with large air leak in all chambers. There is possibility of bronchopleural fistula. Chest x-ray shows improved air entry right lung. Discussed with cardiothoracic surgery Dr. Ontiveros today. Will repeat CT scan to see if lung is reexpanding. May need decortication procedure 05/03/18: Patient remains intubated sedated persistent large air leak. CT reviewed with cardiothoracic surgery Dr. Ontiveros. Will discuss with Dr. Schaeffer in a.m. Probably will benefit from decortication due to the hydropneumothorax and persistent pleural effusions which probably are empyema. Otherwise patient remains critically ill clinically same. [facility] cultures growing staph aureus still 05/04/18: Patient remains sedated critically ill. Chest x-ray shows mostly expanded right lung but with persistent loculated apical pneumothorax and right lower effusion. Plan for surgical intervention by Dr. Schaeffer 05/05/2018 possible decortication. Continue broad-spectrum antibiotics 05/05: Remains sedated, orally intubated on mechanical ventilation. Awaiting OR today for decortication and drainage of loculated effusion and possible repair of air leak site. 05/06: Remains sedated, orally intubated on mechanical ventilation. Status post right VATS with decortication on 05/05. [address] on the right with positive air leak. Subcutaneous emphysema decreasing. 05/07: Remains sedated, orally intubated on mechanical ventilation. Status post right VATS with decortication on 05/05. [address] on the right with positive air leak. Starting tube feeds and CPAP trials 05/08: Remains sedated, orally intubated on mechanical ventilation. Air leak persists from right-sided chest tube 05/09: Sedated, arousable, orally intubated on mechanical ventilation. 1+ air leak from right-sided chest tube noted. On CPAP trial. 05/10: Extubated yesterday. Slightly tachypneic. On nonrebreather facemask this morning. Air leak absent from right chest tube. 05/11: Patient on facemask O2. No air leak noted in right-sided chest tubes this morning. Chest x-ray reveals complete whiteout over right lung field raising concern for mucous plugging. Plan for intubation followed by bronchoscopy and BAL and then attempt to extubate patient. 05/12: Patient underwent intubation followed by bronchoscopy and BAL for right mucous plugging on 05/11 with significant mucus plugging noted which was suctioned out with BAL. Patient was subsequently extubated. Chest x-ray following bronchoscopy showed reexpansion of right lung with no pneumothorax and no air leak from chest tube. This morning patient is resting comfortably on 5 L nasal cannula and denies any shortness of breath. No air leak noted from chest tube. Objective Vital Signs / I&O: Vital Signs 05/11/18 09:51 05/11/18 09:59 05/11/18 10:00 Temperature Pulse Rate 109 H 111 H Respiratory Rate 20 Blood Pressure Pulse Oximetry 100 05/11/18 11:58 05/11/18 12:00 05/11/18 14:00 Temperature 97.6 F Pulse Rate 109 H 112 H Respiratory Rate 26 H 24 Blood Pressure 89/62 L Pulse Oximetry 95 98 05/11/18 14:21 05/11/18 14:24 05/11/18 16:00 Temperature 99.9 F H Pulse Rate 117 H 121 H Respiratory Rate 30 H 32 H 34 H Blood Pressure 105/58 L Pulse Oximetry 95 93 L 05/11/18 18:00 05/11/18 20:00 05/11/18 20:14 Temperature 99.7 F H Pulse Rate 117 H 126 H 125 H Respiratory Rate 34 H 25 H Blood Pressure 112/75 Pulse Oximetry 95 94 L 05/11/18 22:00 05/12/18 00:00 05/12/18 02:00 Temperature Pulse Rate 99 H 95 H 99 H Respiratory Rate 26 H Blood Pressure 103/65 Pulse Oximetry 95 05/12/18 03:55 05/12/18 04:00 05/12/18 06:00 Temperature Pulse Rate 103 H 102 H 101 H Respiratory Rate 20 24 Blood Pressure 118/83 Pulse Oximetry 97 Intake & Output 05/11/18 05/12/18 05/12/18 18:59 06:59 18:59 Intake Total 735 / 735 300 / 300 Output Total 570 / 570 410 / 410 Balance 165 / 165 -110 / -110 Weight 71.4 kg Intake: IV 685 / 685 250 / 250 Diprivan 1000 mg/100 ml Inj 1, 35 / 35 000 mg In 100 ml @ 5 MCG/KG/MIN 2.265 mls/hr IV.CONT TITRATE PRN Rx#:[id number] Teflaro Inj 600 MG In NS Inj 200 / 200 200 / 200 100 ML @ 100 mls/hr IV.SIG Q8H [facility] Rx#:[id number] Cleocin 900 mg/NS Premix 900 mg 150 / 150 50 / 50 In 50 ml @ 100 mls/hr IV.SIG Q8H [facility] Rx#:[id number] Zyvox 600 mg Premix 300 ML @ 300 / 300 300 mls/hr IV.SIG Q12H [facility] Rx#: [id number] Oral 50 / 50 50 / 50 Output: Urine 450 / 450 400 / 400 Chest Tube Drainage 120 / 120 10 10 Right Anterior Y Connected 120 / 120 10 Other: Date of Last Bowel Movement 05/10/18 05/10/18 # Incontinent Bowel Movements 0 0 Result Diagrams: 05/12/18 05:45 05/12/18 05:45 Objective Remarks: GENERAL: Patient is lying in bed on on 5 L nasal cannula SKIN: Warm and dry. HEAD: Atraumatic. Normocephalic. EYES: Pupils equal and round. No scleral icterus. ENT: No nasal bleeding or discharge. Mucous membranes moist. NECK: Trachea midline. No JVD. CARDIOVASCULAR: S1-S2 normal no murmur RESPIRATORY: Good air entry bilaterally though decreased on the right compared to left side, scattered rhonchi bilaterally. Dressing over surgical site. Chest tube x2 to the right with no airleak GASTROINTESTINAL: Abdomen soft, non-tender, nondistended. no guarding. MUSCULOSKELETAL: Extremities without clubbing, cyanosis, or edema. No obvious deformities. NEUROLOGICAL: Awake, alert, following commands. Moves all extremities withdraws to pain. No focal deficits Assessment and Plan - Problem List (1) Anaphylaxis Code(s): T78.2XXA - Anaphylactic shock, unspecified, initial encounter Status : Acute (2) COPD with acute exacerbation Code(s): J44.1 - Chronic obstructive pulmonary disease with (acute) exacerbation Status: Acute (3) Bilateral pneumonia Code(s): J18.9 - Pneumonia, unspecified organism Status: Acute (4) Allergic reaction caused by a drug Code(s): T78.40XA - Allergy, unspecified, initial encounter Status: Acute (5) Acute respiratory failure Code(s): J96.00 - Acute respiratory failure, unspecified whether with hypoxia or hypercapnia Status: Acute (6) Severe sepsis Code(s): A41.9 - Sepsis, unspecified organism; R65.20 - Severe sepsis without septic shock Status: Acute (7) Leukocytosis Code(s): D72.829 - Elevated white blood cell count, unspecified Status: Acute (8) Hypotension Code(s): I95.9 - Hypotension, unspecified Status: Acute (9) Acute kidney injury Code(s): N17.9 - Acute kidney failure, unspecified Status: Acute (10) Hyponatremia Code(s): E87.1 - Hypo-osmolality and hyponatremia Status: Acute (11) Hyperglycemia Code(s): R73.9 - Hyperglycemia, unspecified Status: Acute (12) History of hypertension Code(s): Z86.79 - Personal history of other diseases of the circulatory system Status: Chronic (13) Tobacco abuse Code(s): Z72.0 - Tobacco use Status: Chronic (14) History of COPD Code(s): Z87.09 - Personal history of other diseases of the respiratory system Status: Chronic - Assessment and Plan Plan: Assessment: 72-year-old male with known necrotizing MRSA pneumonia and hypoxemia requiring supplemental oxygenation now with acute respiratory distress secondary to acute right pneumothorax. Status post emergent chest tube decompression. Previously was transferred to [facility] service now reconsulted 04/30/2018 now with what appears to be persistent right pneumothorax and loculated complicated right pleural effusion most likely parapneumonic. Intubated large bore chest tube placed 05/01/2018. With air leak, septic shock from necrotizing MRSA pneumonia. Prognosis appears guarded Active problems: Acute hypoxemic respiratory failure Persistent right-sided pneumothorax Right-sided complicated pleural effusion, probable empyema MRSA pneumonia with probable lung abscess Severe necrotizing pneumonia Probable septic emboli to the left lung Septic shock COPD with exacerbation MRSA bacteremia MRSA pneumonia Plan: NEURO: -Off sedation. Pain medications as needed. Follow neuro status RESP: -Extubated on 05/09. -DuoNeb every 4 hours scheduled and as needed -CT of the chest 04/30/2018 shows large persistent right pneumothorax pl effusion and significant right lower lung consolidation with probable cavitation /abscess -s/p 28 [place] chest tube to the right side, now with reexpansion of the lung but continued air leak -Dr. Carey did bronchoscopy- large amount of mucus plugging removed from right upper lobe -Repeat CT chest shows good reexpansion of the right lung. Persistent hydropneumothorax apically and right lower lung region. Loculated hydropneumothorax may be empyema -Infectious disease and Pulmonology is following. CT surgery following -Status post right VATS with decortication 05/05/2018 -Continue antibiotics per ID Extubated on 05/09 following CPAP trial currently on facemask. Chest x-ray from 05/11 shows white out on the right side suggesting atelectasis, suspect mucous plugging. s/p intubation followed by bronchoscopy and BAL with removal of significant mucous plugs from right mainstem bronchus and subsequent extubation on 05/11 CV: -Normal saline IV fluids 100 ml per hour -Not requiring pressors. GI: -IV famotidine -Advance diet following swallow eval. : -Monitor renal function closely. Shine catheter in anticipation of ID: -Antibiotics per ID. Currently on Teflaro and clindamycin for Zyvox resistant staph aureus -Further cultures per ID -[id number] cultures -Status post right VATS with decortication on 05/05 HEME: -Monitor CBC, coags ENDO: -Electrolyte replacement per protocol -Sliding scale insulin if needed PROPH: -Bilateral lower extremity SCDs. /famotidine. Resume lovenox 05/07 LINES: -Utilize peripheral IVs, right subclavian central line placed 05/01/18 Dr. Bustos updated patient's daughter on the phone 05/01/2018 Discussed current clinical status and plan of care with patient and he voiced understanding and was agreeable with plan of care. Discussed with CASE MANAGER SPECIALIST. (1) Anaphylaxis Qualifiers: Encounter type: initial encounter Qualified Code(s): T78.2XXA - Anaphylactic shock, unspecified, initial encounter (3) Bilateral pneumonia Qualifiers: Pneumonia type: due to unspecified organism Lung location: unspecified part of lung Qualified Code(s): J18.9 - Pneumonia, unspecified organism (4) Allergic reaction caused by a drug Qualifiers: Encounter type: initial encounter Qualified Code(s): T78.40XA - Allergy, unspecified, initial encounter (5) Acute respiratory failure Qualifiers: Respiratory failure complication: unspecified whether with hypoxia or hypercapnia Qualified Code(s): J96.00 - Acute respiratory failure, unspecified whether with hypoxia or hypercapnia (7) Leukocytosis Qualifiers: Leukocytosis type: unspecified Qualified Code(s): D72.829 - Elevated white blood cell count, unspecified (8) Hypotension Qualifiers: Hypotension type: unspecified hypotension type Qualified Code(s): I95.9 - Hypotension, unspecified
[2018-05-12] MEDS: RESP: Acetylcysteine 10% 4 ML Neb NEB SCH ×3 (15:05→19:56)
--- NOTE | 2018-05-12 16:45 | P.PNCV ---
- Note Subjective/Hospital Course: A 72-year-old male admitted on 04/05/2018 via the emergency department for shortness of breath, brought in by EMS with COPD exacerbation, also history of tobacco abuse. The patient became hypotensive, was found to have bilateral patchy infiltrates and was deemed septic from pneumonia, received immediate antibiotics. He also received a dose of vancomycin and apparently had some post maculopapular rash. He was emergently intubated and placed on ventilator by the emergency physician. Patient was successfully resuscitated with IV fluids, transferred to the emergency department where he remained on pressors. He was actually extubated on 04/14/2018 and was found to have developed a left- sided pneumothorax. A chest tube was placed and on 04/24/2018 patient went into acute respiratory distress. The chest x-ray showed a new right-sided pneumothorax and emergent right-sided chest tube was placed and respiratory distress improved after the placement and then on 04/26/2018 the patient had increasing shortness of breath despite nebulizer treatment. He was transferred again back to the ICU. The right chest tube was pulled back and adjusted with improved shortness of breath after the chest tube placement and on 04/30/2018 the patient apparently had increasing shortness of breath which showed a possible right upper lobe pneumothorax despite the chest tube and increasing effusion. Bedside ultrasound showed loculated complicated effusion. The patient was then reintubated and we were consulted to evaluate for right upper lobe loculated effusion. The patient now has [address] with air leak. He does have some subcutaneous emphysema. CT Chest 05/02 CONCLUSION: 1. Overall improving exam with improved aeration of the right hemithorax. Persistent areas of loculated pleural effusion. These demonstrate foci of air within the right lower lobe and are concerning for abscess. Airspace abnormalities within the left hemithorax appears stable to smaller in size from prior exam. 05/04 CT chest discussed with Dr Saenz results evaluated by Dr Victoria attempted to contact Daughter Liliana plan is for surgery in am Right thoracoscopic exploration with evacuation of loculated pleural effusion , possible decortication pt remains on vent sedated , right chest tube with + air leak / pig tail cath has been removed 05/05 - Preoperative Diagnosis (1) Empyema (2) Bilateral pneumonia (3) Acute respiratory failure (4) Severe sepsis R VATS decortication 05/06 remains sedated on vent 40%fio2 cultures path pending Vent per CCM [address], + 1 air leak no subq emphysema 05/07 now has 3+ air leak , nesha increase suction to 30cm for now if no improvement can go to 40cm sedated on vent , weaning as per CCM no growth in cultures from 05/05 to date continue antibiotics 05/12 pt was reintubated yesterday for bronch 2/2 mucous plugs, extubated on 5 liters chest tube placed to water seal, eval for removal of one possible both chest tubes in next day or so, would like pt to at least be OOB to stretcher chair daily Objective: Vital Signs - 24 hr 05/11/18 18:00 05/11/18 20:00 05/11/18 20:14 Temperature 99.7 F H Pulse Rate 117 H 126 H 125 H Respiratory Rate 34 H 25 H Blood Pressure 112/75 Pulse Oximetry 95 94 L 05/11/18 22:00 05/12/18 00:00 05/12/18 02:00 Temperature Pulse Rate 99 H 95 H 99 H Respiratory Rate 26 H Blood Pressure 103/65 Pulse Oximetry 95 05/12/18 03:55 05/12/18 04:00 05/12/18 06:00 Temperature Pulse Rate 103 H 102 H 101 H Respiratory Rate 20 24 Blood Pressure 118/83 Pulse Oximetry 97 05/12/18 08:00 05/12/18 10:00 05/12/18 12:00 Temperature 98.2 F 97.8 F Pulse Rate 105 H 83 92 H Respiratory Rate 26 H 24 30 H Blood Pressure 111/79 104/80 Pulse Oximetry 95 98 95 05/12/18 14:00 05/12/18 15:06 Temperature Pulse Rate 94 H 92 H Respiratory Rate 24 Blood Pressure Pulse Oximetry GENERAL: awake sleepy, but responds appropriately SKIN: Warm and dry. HEAD: Normocephalic. EYES: No scleral icterus. No injection or drainage. NECK: Supple, trachea midline. No JVD or lymphadenopathy. CARDIOVASCULAR: Regular rate and rhythm without murmurs, gallops, or rubs. RESPIRATORY: Breath sounds equal bilaterally. No accessory muscle use. corse bilateral breaths sounds, R> L 2 chest tubes on right to water seal, minimal drainage GASTROINTESTINAL: Abdomen soft, non-tender, nondistended. MUSCULOSKELETAL: No cyanosis, or edema. BACK: Nontender without obvious deformity. No CVA tenderness. Labs: Laboratory Results - last 12 hr 05/12/18 05/12/18 05:45 05:45 WBC 11.6 H RBC 3.70 L Hgb 10.6 L Hct 32.5 L MCV 87.7 MCH 28.6 MCHC 32.6 RDW 15.0 Plt Count 521 H MPV 7.2 Neut % (Auto) 80.0 H Lymph % (Auto) 7.3 L [place] % (Auto) 10.9 H Eos % (Auto) 1.2 Baso % (Auto) 0.6 Neut # (Auto) 9.3 H Lymph # (Auto) 0.9 L [place] # (Auto) 1.3 H Eos # (Auto) 0.1 Baso # (Auto) 0.1 WBC Differential . Differential Comment Auto diff final Sodium 141 Potassium 3.1 L Chloride 101 Carbon Dioxide 32.7 H Anion Gap 7 BUN 17 Creatinine 0.24 L Estimated GFR Greater than 89 Random Glucose 86 Calcium 8.2 L Total Bilirubin 0.3 AST 21 ALT 43 Alkaline Phosphatase 89 Total Protein 6.0 L Albumin 1.6 L Result Diagrams: 05/12/18 05:45 05/12/18 05:45 - Plan (1) Bilateral pneumonia (2) Empyema lung Plan: s/p[ right vats chest tube water seal, evall for removal next 24-48 hrs (1) Bilateral pneumonia Qualifiers: Pneumonia type: due to unspecified organism Lung location: unspecified part of lung Qualified Code(s): J18.9 - Pneumonia, unspecified organism
--- NOTE | 2018-05-12 17:45 | P.PNID ---
Subjective Remarks: much better off the vent on NC O2 no fever RESISTANCE to Linezolid was confirmed Antibiotics: n zyvox teflaro added 04/16 clindamycin added 05/05 Lines: Line sites okay Past Medical History: COPD Allergies/Adverse Reactions: Allergies bee venom protein (honey bee) Allergy (Unknown, Verified 04/05/18 21:12) Edema vancomycin Allergy (Verified 04/05/18 23:33) Anaphylaxis Objective Vital Signs 05/11/18 18:00 05/11/18 20:00 05/11/18 20:14 Temperature 99.7 F H Pulse Rate 117 H 126 H 125 H Respiratory Rate 34 H 25 H Blood Pressure 112/75 Pulse Oximetry 95 94 L 05/11/18 22:00 05/12/18 00:00 05/12/18 02:00 Temperature Pulse Rate 99 H 95 H 99 H Respiratory Rate 26 H Blood Pressure 103/65 Pulse Oximetry 95 05/12/18 03:55 05/12/18 04:00 05/12/18 06:00 Temperature Pulse Rate 103 H 102 H 101 H Respiratory Rate 20 24 Blood Pressure 118/83 Pulse Oximetry 97 05/12/18 08:00 05/12/18 10:00 05/12/18 12:00 Temperature 98.2 F 97.8 F Pulse Rate 105 H 83 92 H Respiratory Rate 26 H 24 30 H Blood Pressure 111/79 104/80 Pulse Oximetry 95 98 95 05/12/18 14:00 05/12/18 15:06 05/12/18 16:00 Temperature 98.7 F Pulse Rate 94 H 92 H 100 H Respiratory Rate 24 30 H Blood Pressure 116/69 Pulse Oximetry 96 Intake & Output 05/11/18 05/12/18 05/12/18 18:59 06:59 18:59 Intake Total 735 / 735 300 / 300 150 / 150 Output Total 570 / 570 410 / 410 Balance 165 / 165 -110 / -110 150 / 150 Weight 71.4 kg Intake: IV 685 / 685 250 / 250 150 / 150 Diprivan 1000 mg/100 ml Inj 1, 35 / 35 000 mg In 100 ml @ 5 MCG/KG/MIN 2.265 mls/hr IV.CONT TITRATE PRN Rx#:[id number] Teflaro Inj 600 MG In NS Inj 200 / 200 200 / 200 100 / 100 100 ML @ 100 mls/hr IV.SIG Q8H [place] Rx#:[id number] Cleocin 900 mg/NS Premix 900 mg 150 / 150 50 / 50 50 / 50 In 50 ml @ 100 mls/hr IV.SIG Q8H [place] Rx#:[id number] Zyvox 600 mg Premix 300 ML @ 300 / 300 300 mls/hr IV.SIG Q12H [place] Rx#: [id number] Oral 50 / 50 50 / 50 Output: Urine 450 / 450 400 / 400 Chest Tube Drainage 120 / 120 Right Anterior Y Connected 120 / 120 Other: Date of Last Bowel Movement 05/10/18 05/10/18 05/10/18 # Incontinent Bowel Movements 0 0 05/05/18 12:10 Tissue - Other Acid Fast Bacilli Smear - Final No acid fast bacilli seen 05/05/18 12:10 Tissue - Other Mycobacterial Culture - Preliminary No growth in 1 week 05/05/18 12:10 Tissue - Other Fungal Smear - Final No fungal elements seen 05/05/18 12:10 Tissue - Other Fungal Culture - Preliminary No growth in 1 week 05/05/18 12:50 Fluid - Pleural fluid Fungal Smear - Final No fungal elements seen 05/05/18 12:50 Fluid - Pleural fluid Fungal Culture - Preliminary No growth in 1 week 05/05/18 12:50 Fluid - Pleural fluid Acid Fast Bacilli Smear - Final No acid fast bacilli seen 05/05/18 12:50 Fluid - Pleural fluid Mycobacterial Culture - Preliminary No growth in 1 week 05/05/18 12:10 Tissue - Other Fungal Smear - Final No fungal elements seen 05/05/18 12:10 Tissue - Other Fungal Culture - Preliminary No growth in 1 week 05/05/18 12:10 Tissue - Other Acid Fast Bacilli Smear - Final No acid fast bacilli seen 05/05/18 12:10 Tissue - Other Mycobacterial Culture - Preliminary No growth in 1 week Lab - Hematology Results 05/11/18 05/12/18 07:50 05:45 WBC 10.1 11.6 H RBC 3.56 L 3.70 L Hgb 10.5 L 10.6 L Hct 31.1 L 32.5 L MCV 87.4 87.7 MCH 29.5 28.6 MCHC 33.7 32.6 RDW 14.6 15.0 Plt Count 546 H 521 H MPV 7.1 7.2 Neut % (Auto) 78.5 H 80.0 H Lymph % (Auto) 7.9 L 7.3 L [place] % (Auto) 11.6 H 10.9 H Eos % (Auto) 1.3 1.2 Baso % (Auto) 0.7 0.6 Neut # (Auto) 7.9 H 9.3 H Lymph # (Auto) 0.8 L 0.9 L [place] # (Auto) 1.2 H 1.3 H Eos # (Auto) 0.1 0.1 Baso # (Auto) 0.1 0.1 WBC Differential . . Differential Comment Auto diff final Auto diff final Lab - Chemistry Results 05/11/18 05/12/18 07:50 05:45 Sodium 138 141 Potassium 3.2 L 3.1 L Chloride 99 101 Carbon Dioxide 31.8 32.7 H Anion Gap 7 7 BUN 20 H 17 Creatinine 0.34 L 0.24 L Estimated GFR Greater than 89 Greater than 89 Random Glucose 100 86 Calcium 8.6 8.2 L Total Bilirubin 0.3 0.3 AST 29 21 ALT 58 43 Alkaline Phosphatase 94 89 Total Protein 6.2 L 6.0 L Albumin 1.7 L 1.6 L Imaging: ITS Impressions Face CT 04/06/18 00:00 CONCLUSION: 1. Small focal area of soft tissue swelling involving the lateral orbital margin on the left. No abscess. Abdomen/Pelvis CT 04/10/18 00:00 CONCLUSION: 1. Findings in the patient's chest discussed on the patient's chest CT. 2. Left renal stone without hydronephrosis. 3. Slight AAA. 4. Possible gallstones within the gallbladder. 5. There is slight fluid within the peritoneal cavity in the pelvis and within left perinephric space and stranding densities involving the Gerota's fascia on the left side. The exact etiology is not certain could be inflammatory, and there is no hydronephrosis. Head MRI 04/12/18 00:00 CONCLUSION: 1. Some chronic changes with mild cortical and central atrophy. Minimal periventricular and scattered deep white matter tract areas of small vessel ischemic demyelination. 2. Some fluid or secretions identified in the dependent portion of the nasopharynx. 3. Otherwise negative. No findings of intracranial mass lesion/abscess. Lumbar Spine MRI 04/12/18 00:00 CONCLUSION: 1. No evidence of epidural abscess. 2. Grade 1 anterolisthesis at L5-S1 with associated discogenic degenerative changes and bilateral pars defects. There is significant bilateral bony neural foraminal stenosis with bilateral neural impingement. 3. Asymmetric ligamentum flavum hypertrophy on the right side at the L4-5 level flattens the dorsal lateral aspect of the thecal sac. Neural foramen remain patent. 4. Suggestion of distended urinary bladder, incompletely imaged in the field-of -view. Thoracic Spine MRI 04/12/18 00:00 CONCLUSION: 1. Small bilateral pleural effusions. 2. Spinal canal is widely patent throughout without cord compromise. No findings of a paravertebral abscess. Abdomen X-Ray 04/12/18 09:42 CONCLUSION: No evidence of ileus. Gallium Scan Nuclear Medicine 04/13/18 00:00 CONCLUSION: 1. There is abnormal uptake in the lungs corresponding to cavitary lesions probably lung abscesses and areas of consolidation seen on the patient's prior chest CT. Chest CT 05/02/18 00:00 CONCLUSION: 1. Overall improving exam with improved aeration of the right hemithorax. Persistent areas of loculated pleural effusion. These demonstrate foci of air within the right lower lobe and are concerning for abscess. Airspace abnormalities within the left hemithorax appears stable to smaller in size from prior exam. Chest X-Ray 05/12/18 07:30 CONCLUSION: Slight left lung base atelectasis and/or infiltrate is seen not present previously, otherwise not changed . Physical Exam: GENERAL: NAD SKIN: Warm and dry. No rash HEAD: Atraumatic. Normocephalic. EYES: Pupils equal and round. No scleral icterus. No injection or drainage. ENT: No nasal bleeding or discharge. Mucous membranes pink and moist. NECK: Trachea midline. No JVD. CARDIOVASCULAR: Regular rate and rhythm. RESPIRATORY: No accessory muscle use. R lung with decreased BS and extensive R sided CT w serosang dc GASTROINTESTINAL: Abdomen soft, non-tender, nondistended. MUSCULOSKELETAL: Extremities without clubbing, no cyanosis mild edema. 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
--- NOTE | 2018-05-12 19:36 | P.PNPL ---
Subjective Interval history: 72 YOWM with MRSA Pn, cavitary lesion, COPD, Lt ptx mild sob Was extubated Feels much better Started PO On 6LNC Physical Exam Vital signs: Vital Signs 05/11/18 20:00 05/11/18 20:14 05/11/18 22:00 Temperature 99.7 F H Pulse Rate 126 H 125 H 99 H Respiratory Rate 34 H 25 H Blood Pressure 112/75 Pulse Oximetry 95 94 L 05/12/18 00:00 05/12/18 02:00 05/12/18 03:55 Temperature Pulse Rate 95 H 99 H 103 H Respiratory Rate 26 H 20 Blood Pressure 103/65 Pulse Oximetry 95 05/12/18 04:00 05/12/18 06:00 05/12/18 08:00 Temperature 98.2 F Pulse Rate 102 H 101 H 105 H Respiratory Rate 24 26 H Blood Pressure 118/83 111/79 Pulse Oximetry 97 95 05/12/18 10:00 05/12/18 12:00 05/12/18 14:00 Temperature 97.8 F Pulse Rate 83 92 H 94 H Respiratory Rate 24 30 H Blood Pressure 104/80 Pulse Oximetry 98 95 05/12/18 15:06 05/12/18 16:00 05/12/18 18:00 Temperature 98.7 F Pulse Rate 92 H 100 H 102 H Respiratory Rate 24 30 H Blood Pressure 116/69 Pulse Oximetry 96 Intake & Output 05/12/18 05/12/18 05/13/18 06:59 18:59 06:59 Intake Total 300 / 300 740 / 740 100 / 100 Output Total 410 / 410 550 / 550 Balance -110 / -110 190 / 190 100 / 100 Weight 71.4 kg Intake: IV 250 / 250 200 / 200 100 / 100 Teflaro Inj 600 MG In NS Inj 200 / 200 100 / 100 100 / 100 100 ML @ 100 mls/hr IV.SIG Q8H [place] Rx#:[id number] Cleocin 900 mg/NS Premix 900 mg 50 / 50 100 / 100 In 50 ml @ 100 mls/hr IV.SIG Q8H [place] Rx#:[id number] Oral 50 / 50 540 / 540 Output: Urine 400 / 400 500 / 500 Chest Tube Drainage 50 / 50 Right Anterior Y Connected 50 / 50 Other: Date of Last Bowel Movement 05/10/18 05/10/18 # Incontinent Bowel Movements 0 2 GENERAL: Elderly WM, mild sob SKIN: Warm and dry. HEAD: Normocephalic. EYES: No scleral icterus. No injection or drainage. NECK: Supple, trachea midline. No JVD or lymphadenopathy. CARDIOVASCULAR: Regular rate and rhythm without murmurs, gallops, or rubs. RESPIRATORY: Breath sounds equal bilaterally. No accessory muscle use. Rt chest tube draining GASTROINTESTINAL: Abdomen soft, non-tender, nondistended. MUSCULOSKELETAL: No cyanosis, or edema. BACK: Nontender without obvious deformity. No CVA tenderness. - Urinary Catheter Management Indwelling Urethral Catheter Cath placed during this visit: yes, but has since been removed by the nurse Reason for continuing: Acute urinary retention Insertion date: 04/05/18 Insertion time: 23:00 Removal date: 04/12/18 Removal time: 08:30 Condom Cath placed during this visit: no Reason for continuing: Acute urinary retention Straight Cath placed during this visit: yes, but has since been removed by the nurse Reason for continuing: Not indwelling catheter Insertion date: 05/06/18 Insertion time: 18:00 Removal date: 05/06/18 Removal time: 18:10 Indwelling Temp Sensing Catheter Cath placed during this visit: yes, but has since been removed by the nurse Reason for continuing: Hourly intake/output Insertion date: 05/05/18 Insertion time: 12:15 Removal date: 05/05/18 Removal time: 15:00 Assessment and Plan - Plan IMPRESSION: 1. MRSA pneumonia. 2. Cavitary pneumonia. 4. Chronic obstructive pulmonary disease. 5. Hypotension. 6. Left pneumothorax, status post chest tube.removal 7. Nicotine use. 8. Right Ptx 9. VDRF PLAN: Cont Abx per ID Aerosol nebs Supplement 02 Chest tube to suction Encourage po
[2018-05-13] MEDS: Oral Hygiene Kit OROPHARYNG SCH ×4 (00:26→16:19)
[2018-05-13] MEDS: Clindamycin 900 mg/NS Premix 900 MG/50 ML PIGGYBACK IV.SIG SCH ×3 (01:38→17:19)
[2018-05-13] MEDS: RESP: Acetylcysteine 10% 4 ML Neb NEB SCH ×4 (03:42→20:34)
[2018-05-13 04:18] LABS: Baso # (Auto) 0.1 th/mm3 (0.0-0.2); Baso % (Auto) 0.5 % (0.0-2.0); Eos # (Auto) 0.2 th/mm3 (0.0-0.4); Eos % (Auto) 1.8 % (0.0-4.0); Hematocrit 32.5 % (39.0-51.0); Hemoglobin 10.8 gm/dL (13.0-17.0); Lymph # (Auto) 0.7 th/mm3 (1.0-4.8); Lymph % (Auto) 6.6 % (9.0-44.0); Mean Corpuscular HGB Conc 33.3 % (32.0-36.0); Mean Corpuscular Hemoglobin 29.5 pg (27.0-34.0); Mean Corpuscular Volume 88.5 fL (80.0-100.0); Mean Platelet Volume 7.4 fL (7.0-11.0); Mono # (Auto) 0.9 th/mm3 (0.0-0.9); Mono % (Auto) 8.9 % (0.0-8.0); Neut # (Auto) 8.6 th/mm3 (1.8-7.7); Neut % (Auto) 82.2 % (16.0-70.0); Platelet Count 515 th/mm3 (150-450); Red Blood Count 3.67 mil/mm3 (4.50-5.90); Red Cell Distribution Width 15.2 % (11.6-17.2); White Blood Count 10.5 th/mm3 (4.0-11.0)
[2018-05-13 04:38] LABS: Alanine Aminotransferase 36 U/L (12-78); Albumin 1.8 g/dL (3.4-5.0); Anion Gap 7 meq/L (5-15); Aspartate Aminotransferase 21 U/L (15-37); Blood Urea Nitrogen 17 mg/dL (7-18); Calcium 8.4 mg/dL (8.5-10.1); Carbon Dioxide 33.2 meq/L (21.0-32.0); Chloride 100 meq/L (98-107); Glomerular Filtration Rate Greater Than 89 mL/min (>89); Glucose,Random 105 mg/dL (74-106); Sodium 140 meq/L (136-145)
[2018-05-13 04:40] LABS: Alkaline Phosphatase 89 U/L (45-117); Total Protein 6.1 g/dL (6.4-8.2)
--- NOTE | 2018-05-13 05:38 | XR ---
EXAM DATE: 05/13/2018 5:35 AM EST AGE/SEX: 72 years / Male INDICATIONS: Shortness of breath. CLINICAL DATA: This is the patient's subsequent encounter. Patient reports that signs and symptoms h ave been present for 4 - 6 days and indicates a pain score of Nonresponsive. MEDICAL/SURGICAL HISTORY: . Chronic obstructive pulmonary disease. Hypertension. MRSA. . Ches t tube. COMPARISON: [facility] – [place], CHEST 1V SINGLE AP, 05/12/2018. . FINDINGS: Right thoracostomy tubes are stable. Continued improvement in right lung volume and aeration. Patchy left base parenchymal opacity is grossly unchanged. Cardiac contours are stable. CONCLUSION: Improving aeration Electronically signed by: Akash Capone MD Board Certified Radiologist 05/13/2018 5:36 AM EST
[2018-05-13] MEDS: Artificial Tears Opth Drops 15 ML Bottle EACH EYE SCH ×3 (05:43→20:46)
--- NOTE | 2018-05-13 09:56 | P.PNCV ---
- Note Subjective/Hospital Course: A 72-year-old male admitted on 04/05/2018 via the emergency department for shortness of breath, brought in by EMS with COPD exacerbation, also history of tobacco abuse. The patient became hypotensive, was found to have bilateral patchy infiltrates and was deemed septic from pneumonia, received immediate antibiotics. He also received a dose of vancomycin and apparently had some post maculopapular rash. He was emergently intubated and placed on ventilator by the emergency physician. Patient was successfully resuscitated with IV fluids, transferred to the emergency department where he remained on pressors. He was actually extubated on 04/14/2018 and was found to have developed a left- sided pneumothorax. A chest tube was placed and on 04/24/2018 patient went into acute respiratory distress. The chest x-ray showed a new right-sided pneumothorax and emergent right-sided chest tube was placed and respiratory distress improved after the placement and then on 04/26/2018 the patient had increasing shortness of breath despite nebulizer treatment. He was transferred again back to the ICU. The right chest tube was pulled back and adjusted with improved shortness of breath after the chest tube placement and on 04/30/2018 the patient apparently had increasing shortness of breath which showed a possible right upper lobe pneumothorax despite the chest tube and increasing effusion. Bedside ultrasound showed loculated complicated effusion. The patient was then reintubated and we were consulted to evaluate for right upper lobe loculated effusion. The patient now has [address] with air leak. He does have some subcutaneous emphysema. CT Chest 05/02 CONCLUSION: 1. Overall improving exam with improved aeration of the right hemithorax. Persistent areas of loculated pleural effusion. These demonstrate foci of air within the right lower lobe and are concerning for abscess. Airspace abnormalities within the left hemithorax appears stable to smaller in size from prior exam. 05/04 CT chest discussed with Dr Saenz results evaluated by Dr Victoria attempted to contact Daughter Liliana plan is for surgery in am Right thoracoscopic exploration with evacuation of loculated pleural effusion , possible decortication pt remains on vent sedated , right chest tube with + air leak / pig tail cath has been removed 05/05 - Preoperative Diagnosis (1) Empyema (2) Bilateral pneumonia (3) Acute respiratory failure (4) Severe sepsis R VATS decortication 05/06 remains sedated on vent 40%fio2 cultures path pending Vent per CCM [address], + 1 air leak no subq emphysema 05/07 now has 3+ air leak , nesha increase suction to 30cm for now if no improvement can go to 40cm sedated on vent , weaning as per CCM no growth in cultures from 05/05 to date continue antibiotics 05/12 pt was reintubated yesterday for bronch 2/ mucous plugs, extubated on 5 liters chest tube placed to water seal, eval for removal of one possible both chest tubes in next day or so, would like pt to at least be OOB to stretcher chair daily 05/13 anterior chest tube removed posterior tube left in place eval removal next couple of days Objective: Vital Signs - 24 hr 05/12/18 10:00 05/12/18 11:00 05/12/18 11:02 Temperature Pulse Rate 82 84 88 Respiratory Rate 25 H 22 25 H Blood Pressure 109/74 Pulse Oximetry 100 97 97 05/12/18 12:00 05/12/18 13:00 05/12/18 14:00 Temperature 97.8 F Pulse Rate 92 H 89 94 H Respiratory Rate 30 H 24 26 H Blood Pressure 104/80 105/71 102/68 Pulse Oximetry 95 97 93 L 05/12/18 15:00 05/12/18 15:06 05/12/18 16:00 Temperature 98.7 F Pulse Rate 96 H 92 H 100 H Respiratory Rate 28 H 24 27 H Blood Pressure 114/72 111/73 Pulse Oximetry 97 96 05/12/18 17:00 05/12/18 17:47 05/12/18 18:00 Temperature Pulse Rate 103 H 104 H 103 H Respiratory Rate 30 H 29 H 24 Blood Pressure 116/69 113/72 108/72 Pulse Oximetry 96 96 93 L 05/12/18 19:00 05/12/18 19:56 05/12/18 20:00 Temperature Pulse Rate 108 H 112 H 111 H Respiratory Rate 33 H 24 26 H Blood Pressure 113/71 90/60 L Pulse Oximetry 94 L 92 L 92 L 05/12/18 20:04 05/12/18 21:00 05/12/18 22:00 Temperature Pulse Rate 110 H 114 H 107 H Respiratory Rate 22 16 28 H Blood Pressure 99/65 L 95/64 L Pulse Oximetry 95 94 L 05/12/18 23:00 05/13/18 00:00 05/13/18 01:00 Temperature 98.7 F Pulse Rate 98 H 89 90 Respiratory Rate 27 H 24 27 H Blood Pressure 98/64 L 102/69 106/72 Pulse Oximetry 94 L 93 L 95 05/13/18 01:53 05/13/18 02:00 05/13/18 03:00 Temperature Pulse Rate 93 H 92 H 94 H Respiratory Rate 29 H 28 H Blood Pressure 113/75 111/79 Pulse Oximetry 93 L 97 05/13/18 03:42 05/13/18 04:00 05/13/18 05:00 Temperature 98.4 F Pulse Rate 91 H 97 H 99 H Respiratory Rate 22 25 H 30 H Blood Pressure 119/75 118/76 Pulse Oximetry 93 L 92 L 05/13/18 06:00 Temperature Pulse Rate 100 H Respiratory Rate 13 Blood Pressure 116/70 Pulse Oximetry 92 L GENERAL: A&O x 3 SKIN: Warm and dry. HEAD: Normocephalic. EYES: No scleral icterus. No injection or drainage. NECK: Supple, trachea midline. No JVD or lymphadenopathy. CARDIOVASCULAR: Regular rate and rhythm without murmurs, gallops, or rubs. RESPIRATORY: Breath sounds equal bilaterally. No accessory muscle use. diminished in bases, right posterior lateral chest tube in place to water seal GASTROINTESTINAL: Abdomen soft, non-tender, nondistended. MUSCULOSKELETAL: No cyanosis, or edema. BACK: Nontender without obvious deformity. No CVA tenderness. Labs: Laboratory Results - last 12 hr 05/13/18 05/13/18 03:39 03:39 WBC 10.5 RBC 3.67 L Hgb 10.8 L Hct 32.5 L MCV 88.5 MCH 29.5 MCHC 33.3 RDW 15.2 Plt Count 515 H MPV 7.4 Neut % (Auto) 82.2 H Lymph % (Auto) 6.6 L [place] % (Auto) 8.9 H Eos % (Auto) 1.8 Baso % (Auto) 0.5 Neut # (Auto) 8.6 H Lymph # (Auto) 0.7 L [place] # (Auto) 0.9 Eos # (Auto) 0.2 Baso # (Auto) 0.1 WBC Differential . Differential Comment Auto diff final Sodium 140 Potassium 3.0 L Chloride 100 Carbon Dioxide 33.2 H Anion Gap 7 BUN 17 Creatinine 0.30 L Estimated GFR Greater than 89 Random Glucose 105 Calcium 8.4 L Total Bilirubin 0.3 AST 21 ALT 36 Alkaline Phosphatase 89 Total Protein 6.1 L Albumin 1.8 L Result Diagrams: 05/13/18 03:39 05/13/18 03:39 - Plan (1) Bilateral pneumonia (2) Empyema lung Plan: s/p[ right vats chest tube water seal, anterior chest tube removed eval for removal of lateral tube next 24-48 hrs (1) Bilateral pneumonia Qualifiers: Qualified Code(s): J18.9 - Pneumonia, unspecified organism
--- NOTE | 2018-05-13 09:59 | P.PNCC ---
Subjective Subjective Remarks/Hospital Course: Patient is 72-year-old male with past medical history of COPD, tobacco abuse and hypertension who came to the emergency room for shortness of breath via EMS. On EMS arrival saturation was in the 90s, but patient had significant shortness of breath and dyspnea. Patient received Solu-Medrol 125 mg IV and breathing treatments by EMS and was brought to the emergency department. In the emergency department patient received further breathing treatments and chest x-ray showed patchy infiltrate on bilateral lung fitzgerald. Initially maintaining oxygen saturation with nasal cannula. Initial blood pressure was 85 /65, improved with normal saline boluses. WBC count was 17.1. Patient was deemed septic from pneumonia and patient was ordered to receive vancomycin and Zosyn. While receiving vancomycin patient acutely decompensated became extremely short of breath and developed erythematous maculopapular rash involving face torso armpits and groin region. Emergently intubated and placed on mechanical ventilation by the ED physician. Received IV 50 mg Benadryl. Critical care medicine was requested to admit the patient. I evaluated the patient immediately in the emergency department. Patient is intubated on Versed and fentanyl infusion however he is very asynchronous with the vent triggering ventilator alarms. Severe bilateral expiratory wheezing heard on auscultation. He has extensive skin rash predominantly face forehead torso armpit and groins. Appears like patient had anaphylactic reaction to vancomycin complicated by COPD exacerbation and pneumonia. I have ordered additional Solu-Medrol 100 mg x1 scheduled Benadryl and famotidine, antibiotics with cefepime and Levaquin. Increase Versed infusion, add propofol and use neuromuscular paralysis as needed. Will request pharmacy to add vancomycin to allergy. ED physician Dr. Slater had noticed that patient had some swelling on the left side of his face on arrival, however the skin rash after vancomycin was started was new. Patient remains hypotensive has received 2 L of normal saline in the emergency department and no significant urine output. I have ordered additional 2 L normal saline bolus and maintenance fluid at 84 mL/h. Use Levophed as needed to keep map above 65 Subjective 04/06: Off norepinephrine drip. Currently resting in bed in no acute distress on midazolam and fentanyl drips. Start tube feeding today. 04/07: Remains sedated, intubated on mechanical ventilation. Blood cultures growing MRSA 04/08: remains sedated and intubated. repeat cultures still growing MRSA 2/4 cultures. likely need to repeat BCx either today or tomorrow. agree with narrowing spectrum abx. performed DEEDEE at ID recommendation (need to r/o endocarditis), but no evidence of vegetations. remains hypoxic. off vasopressors today. 04/09: adequate auto-diuresis overnight. off vasopressors. on sedation vacation. hypoxia improving. 04/10 Patient remains intubated and sedated with Fentanyl infusion. Became tachycardic and tachypneic overnight requiring increase sedation. Afebrile. 04/11 Patient is intubated and sedated. Afebrile. 04/12 Patient remains intubated and sedated with Diprivan and Fentanyl infusion, Afebrile. 04/13: Sedated, easily arousable, orally intubated on mechanical ventilation. 04/14 Patient was extubated yesterday. Afebrile. 04/15 Patient is lying in bed in NAD. On 3L oxygen. Awake and alert. 04/16 Patient is on partial rebreather. Afebrile. Awake and alert. 04/17: Left-sided chest tube placed for pneumothorax yesterday. On nasal cannula currently. Awake and alert. Appears comfortable. No air leak noted in Pleur-evac 04/18: Remains on nasal cannula. No air leak noted from left-sided chest tube. 04/19: On 5 L nasal cannula. Chest tube in place, no air leak noted. Resting in bed comfortably, no acute distress. Continues to have productive cough. 04/20: Remains on nasal cannula. Chest tube in place, no air leak noted. Resting in bed comfortably. 04/24: RECONSULT NOTE: called emergently by Hospitalist team. patient with new acute respiratory distress. Chest x-ray demonstrates new large right-sided pneumothorax. I went to evaluate the patient is seen in significant distress. I emergently placed right-sided pigtail chest tube. Significant denney of air with no air leak on chest tube. Respiratory distress improved after chest tube placement. Repeat interval chest x-ray demonstrates good placement of chest tube with resolution of pneumothorax. 04/26/18: RECONSULT NOTE: [facility] reconsulted for rexpansion of right pneumothorax. Patient developed increased SOB today without improvement with nebulizer. STAT CXR Moderate to large right pneumothorax has redeveloped and with a probable tension component. He appears to be in moderate distress tachypneic. Patient was moved to the ICU where I evaluated the patient emergently. The right pigtail chest tube is still in place, minimal air leak. I flushed the chest tube but was difficult to withdraw air. I then pulled back the chest tube by approximately 3 cm. Able to withdraw air more easily and on connection to the Vacutainer again there was significant air leak in all chambers. Patient subjectively felt improvement in shortness of breath after chest tube placement. Stat repeat chest x-ray shows near complete reexpansion of the right knee 04/30/18: [facility] RECONSULT NOTE: Critical care, reconsult for worsening respiratory failure. I evaluate the patient urgently. He is very tachypneic diaphoretic. Chest x-ray today showed possible right upper lobe pneumothorax and increasing right effusion. I did an emergent bedside ultrasound which shows probably loculated complicated right pleural effusion. Patient likely needs more further imaging and procedures and in very labored breathing. Proceeded with endotracheal intubation in place patient on mechanical ventilation. I explained plan of care prior to intubation. He understands that he may need emergency chest tube placement and also may need surgical intervention 05/01/18: Patient remains intubated sedated. Hypotensive on 75 mcg/min of Beau- Synephrine. While sedated. CT chest showed severe right lower lung consolidation large pneumothorax/hydropneumothorax on the right side. Plan for large bore chest tube and central line today. Also cardiothoracic surgery was consulted, and I discussed with Dr. Schaeffer. I will plan for a large bore chest tube to the right side followed by a central line placement. 05/02/18: Patient remains intubated heavily sedated for vent synchrony. Right chest tube with large air leak in all chambers. There is possibility of bronchopleural fistula. Chest x-ray shows improved air entry right lung. Discussed with cardiothoracic surgery Dr. Ontiveros today. Will repeat CT scan to see if lung is reexpanding. May need decortication procedure 05/03/18: Patient remains intubated sedated persistent large air leak. CT reviewed with cardiothoracic surgery Dr. Ontiveros. Will discuss with Dr. Schaeffer in a.m. Probably will benefit from decortication due to the hydropneumothorax and persistent pleural effusions which probably are empyema. Otherwise patient remains critically ill clinically same. [facility] cultures growing staph aureus still 05/04/18: Patient remains sedated critically ill. Chest x-ray shows mostly expanded right lung but with persistent loculated apical pneumothorax and right lower effusion. Plan for surgical intervention by Dr. Schaeffer 05/05/2018 possible decortication. Continue broad-spectrum antibiotics 05/05: Remains sedated, orally intubated on mechanical ventilation. Awaiting OR today for decortication and drainage of loculated effusion and possible repair of air leak site. 05/06: Remains sedated, orally intubated on mechanical ventilation. Status post right VATS with decortication on 05/05. [address] on the right with positive air leak. Subcutaneous emphysema decreasing. 05/07: Remains sedated, orally intubated on mechanical ventilation. Status post right VATS with decortication on 05/05. [address] on the right with positive air leak. Starting tube feeds and CPAP trials 05/08: Remains sedated, orally intubated on mechanical ventilation. Air leak persists from right-sided chest tube 05/09: Sedated, arousable, orally intubated on mechanical ventilation. 1+ air leak from right-sided chest tube noted. On CPAP trial. 05/10: Extubated yesterday. Slightly tachypneic. On nonrebreather facemask this morning. Air leak absent from right chest tube. 05/11: Patient on facemask O2. No air leak noted in right-sided chest tubes this morning. Chest x-ray reveals complete whiteout over right lung field raising concern for mucous plugging. Plan for intubation followed by bronchoscopy and BAL and then attempt to extubate patient. 05/12: Patient underwent intubation followed by bronchoscopy and BAL for right mucous plugging on 05/11 with significant mucus plugging noted which was suctioned out with BAL. Patient was subsequently extubated. Chest x-ray following bronchoscopy showed reexpansion of right lung with no pneumothorax and no air leak from chest tube. This morning patient is resting comfortably on 5 L nasal cannula and denies any shortness of breath. No air leak noted from chest tube. 05/13: Remains on nasal cannula maintaining oxygen saturation. Appears deconditioned. Chest x-ray shows improving aeration. Will get physical therapy to mobilize patient out of bed daily. Anterior chest tube to be removed by CT surgery today Objective Vital Signs / I&O: Vital Signs 05/12/18 10:00 05/12/18 11:00 05/12/18 11:02 Temperature Pulse Rate 82 84 88 Respiratory Rate 25 H 22 25 H Blood Pressure 109/74 Pulse Oximetry 100 97 97 05/12/18 12:00 05/12/18 13:00 05/12/18 14:00 Temperature 97.8 F Pulse Rate 92 H 89 94 H Respiratory Rate 30 H 24 26 H Blood Pressure 104/80 105/71 102/68 Pulse Oximetry 95 97 93 L 05/12/18 15:00 05/12/18 15:06 05/12/18 16:00 Temperature 98.7 F Pulse Rate 96 H 92 H 100 H Respiratory Rate 28 H 24 27 H Blood Pressure 114/72 111/73 Pulse Oximetry 97 96 05/12/18 17:00 05/12/18 17:47 05/12/18 18:00 Temperature Pulse Rate 103 H 104 H 103 H Respiratory Rate 30 H 29 H 24 Blood Pressure 116/69 113/72 108/72 Pulse Oximetry 96 96 93 L 05/12/18 19:00 05/12/18 19:56 05/12/18 20:00 Temperature Pulse Rate 108 H 112 H 111 H Respiratory Rate 33 H 24 26 H Blood Pressure 113/71 90/60 L Pulse Oximetry 94 L 92 L 92 L 05/12/18 20:04 05/12/18 21:00 05/12/18 22:00 Temperature Pulse Rate 110 H 114 H 107 H Respiratory Rate 22 16 28 H Blood Pressure 99/65 L 95/64 L Pulse Oximetry 95 94 L 05/12/18 23:00 05/13/18 00:00 05/13/18 01:00 Temperature 98.7 F Pulse Rate 98 H 89 90 Respiratory Rate 27 H 24 27 H Blood Pressure 98/64 L 102/69 106/72 Pulse Oximetry 94 L 93 L 95 05/13/18 01:53 05/13/18 02:00 05/13/18 03:00 Temperature Pulse Rate 93 H 92 H 94 H Respiratory Rate 29 H 28 H Blood Pressure 113/75 111/79 Pulse Oximetry 93 L 97 05/13/18 03:42 05/13/18 04:00 05/13/18 05:00 Temperature 98.4 F Pulse Rate 91 H 97 H 99 H Respiratory Rate 22 25 H 30 H Blood Pressure 119/75 118/76 Pulse Oximetry 93 L 92 L 05/13/18 06:00 Temperature Pulse Rate 100 H Respiratory Rate 13 Blood Pressure 116/70 Pulse Oximetry 92 L Intake & Output 05/12/18 05/13/18 05/13/18 18:59 06:59 18:59 Intake Total 740 / 740 340 / 340 Output Total 550 / 550 375 / 375 Balance 190 / 190 -35 / -35 Weight 71.9 kg Intake: IV 200 / 200 100 / 100 Teflaro Inj 600 MG In NS Inj 100 / 100 100 / 100 100 ML @ 100 mls/hr IV.SIG Q8H [facility] Rx#:[id number] Cleocin 900 mg/NS Premix 900 mg 100 / 100 In 50 ml @ 100 mls/hr IV.SIG Q8H [facility] Rx#:[id number] Oral 540 / 540 240 / 240 Output: Urine 500 / 500 375 / 375 Chest Tube Drainage 50 / 50 Right Anterior Y Connected 50 / 50 Other: Date of Last Bowel Movement 05/10/18 # Incontinent Bowel Movements 2 Result Diagrams: 05/13/18 03:39 05/13/18 03:39 Objective Remarks: GENERAL: Patient is lying in bed on nasal cannula SKIN: Warm and dry. HEAD: Atraumatic. Normocephalic. EYES: Pupils equal and round. No scleral icterus. ENT: No nasal bleeding or discharge. Mucous membranes moist. NECK: Trachea midline. No JVD. CARDIOVASCULAR: S1-S2 normal no murmur RESPIRATORY: Air entry decreased on the right compared to left side, scattered rhonchi bilaterally. Dressing over surgical site. Chest tube x2 to the right with no airleak. Anterior chest tube to be removed today by CT surgery GASTROINTESTINAL: Abdomen soft, non-tender, nondistended. no guarding. MUSCULOSKELETAL: Extremities without clubbing, cyanosis, or edema. No obvious deformities. NEUROLOGICAL: Awake, alert, following commands. Moves all extremities withdraws to pain. No focal deficits Assessment and Plan - Problem List (1) Anaphylaxis Code(s): T78.2XXA - Anaphylactic shock, unspecified, initial encounter Status : Acute (2) COPD with acute exacerbation Code(s): J44.1 - Chronic obstructive pulmonary disease with (acute) exacerbation Status: Acute (3) Bilateral pneumonia Code(s): J18.9 - Pneumonia, unspecified organism Status: Acute (4) Allergic reaction caused by a drug Code(s): T78.40XA - Allergy, unspecified, initial encounter Status: Acute (5) Acute respiratory failure Code(s): J96.00 - Acute respiratory failure, unspecified whether with hypoxia or hypercapnia Status: Acute (6) Severe sepsis Code(s): A41.9 - Sepsis, unspecified organism; R65.20 - Severe sepsis without septic shock Status: Acute (7) Leukocytosis Code(s): D72.829 - Elevated white blood cell count, unspecified Status: Acute (8) Hypotension Code(s): I95.9 - Hypotension, unspecified Status: Acute (9) Acute kidney injury Code(s): N17.9 - Acute kidney failure, unspecified Status: Acute (10) Hyponatremia Code(s): E87.1 - Hypo-osmolality and hyponatremia Status: Acute (11) Hyperglycemia Code(s): R73.9 - Hyperglycemia, unspecified Status: Acute (12) History of hypertension Code(s): Z86.79 - Personal history of other diseases of the circulatory system Status: Chronic (13) Tobacco abuse Code(s): Z72.0 - Tobacco use Status: Chronic (14) History of COPD Code(s): Z87.09 - Personal history of other diseases of the respiratory system Status: Chronic - Assessment and Plan Plan: Assessment: 72-year-old male with known necrotizing MRSA pneumonia and hypoxemia requiring supplemental oxygenation now with acute respiratory distress secondary to acute right pneumothorax. Status post emergent chest tube decompression. Previously was transferred to [facility] service now reconsulted 04/30/2018 now with what appears to be persistent right pneumothorax and loculated complicated right pleural effusion most likely parapneumonic. Intubated large bore chest tube placed 05/01/2018. With air leak, septic shock from necrotizing MRSA pneumonia. Status post decortication chest tube x2 placement. Now extubated again Active problems: Acute hypoxemic respiratory failure Persistent right-sided pneumothorax Right-sided complicated pleural effusion, probable empyema MRSA pneumonia with probable lung abscess (Zyvox resistant) Severe necrotizing pneumonia Probable septic emboli to the left lung Septic shock COPD with exacerbation MRSA bacteremia MRSA pneumonia Plan: NEURO: -Off sedation. Pain medications as needed. Follow neuro status RESP: -Extubated on 05/09. Chest x-ray from 05/11 showed white out on the right side suggesting atelectasis, suspect mucous plugging. -s/p intubation followed by bronchoscopy and BAL with removal of significant mucous plugs from right mainstem bronchus and subsequent extubation on 05/11 -DuoNeb every 4 hours scheduled and as needed -CT of the chest 04/30/2018 shows large persistent right pneumothorax pl effusion and significant right lower lung consolidation with probable cavitation /abscess -s/p 28 Latvian chest tube to the right side, now with reexpansion of the lung but continued air leak -Dr. Carey did bronchoscopy- large amount of mucus plugging removed from right upper lobe -Repeat CT chest shows good reexpansion of the right lung. Persistent hydropneumothorax apically and right lower lung region. Loculated hydropneumothorax may be empyema -Status post right VATS with decortication 05/05/2018 -Continue antibiotics per ID -Anterior chest tube was removed today however patient became hypoxemic. Stat chest x-ray pending CV: -Normal saline IV fluids 100 ml per hour-discontinued today -Not requiring pressors. GI: -IV famotidine -Keep n.p.o. due to acute hypoxia following chest tube placement : -Monitor renal function closely. ID: -Antibiotics per ID. Currently on Teflaro and clindamycin for Zyvox resistant staph aureus -Further cultures per ID -Eoktbijucqbi-umyynr-[id number] cultures -Status post right VATS with decortication on 05/05 HEME: -Monitor CBC, coags ENDO: -Electrolyte replacement per protocol -Sliding scale insulin if needed PROPH: -Bilateral lower extremity SCDs. /famotidine. Resumed lovenox 05/07 LINES: -Utilize peripheral IVs, right subclavian central line placed 05/01/18 Dr. Bustos updated patient's daughter on the phone 05/01/2018 Discussed current clinical status and plan of care with patient and he voiced understanding and was agreeable with plan of care. Discussed with RADIO TOWER TECHNICIAN. Patient is critical again now with acute hypoxemic respiratory failure, tachycardia. His hypoxemia seems to be secondary to right lower lobe plugging/ collapse on chest x-ray. Wait for official confirmation. Patient may need intubation and bronchoscopy CCT 35 MIN (1) Anaphylaxis Qualifiers: Encounter type: initial encounter Qualified Code(s): T78.2XXA - Anaphylactic shock, unspecified, initial encounter (3) Bilateral pneumonia Qualifiers: Pneumonia type: due to unspecified organism Lung location: unspecified part of lung Qualified Code(s): J18.9 - Pneumonia, unspecified organism (4) Allergic reaction caused by a drug Qualifiers: Encounter type: initial encounter Qualified Code(s): T78.40XA - Allergy, unspecified, initial encounter (5) Acute respiratory failure Qualifiers: Respiratory failure complication: unspecified whether with hypoxia or hypercapnia Qualified Code(s): J96.00 - Acute respiratory failure, unspecified whether with hypoxia or hypercapnia (7) Leukocytosis Qualifiers: Leukocytosis type: unspecified Qualified Code(s): D72.829 - Elevated white blood cell count, unspecified (8) Hypotension Qualifiers: Hypotension type: unspecified hypotension type Qualified Code(s): I95.9 - Hypotension, unspecified
--- NOTE | 2018-05-13 11:00 | XR ---
EXAM DATE: 05/13/2018 10:47 AM EST AGE/SEX: 72 years / Male INDICATIONS: Respiratory distress. CLINICAL DATA: This is the patient's subsequent encounter. Patient reports that signs and symptoms h ave been present for 1 month and indicates a pain score of 3/10. MEDICAL/SURGICAL HISTORY: . Chronic obstructive pulmonary disease. Hypertension. MRSA. Chest t ube. None. COMPARISON: [facility] – [place], [place], CHEST 1V SINGLE AP, 05/13/2018. . FINDINGS: Right lower chest tube remains in good position. The right upper chest tube has been removed. There m ay be a small loculated air collection in the right base. Extensive pleural thickening and parenchyma l changes persist in the right base. Minimal parenchymal changes left base, stable. CONCLUSION: Possible small loculated air collection on the right following removal of chest tube. Lower chest tub e in good position. Otherwise no significant interval change. Electronically signed by: Wali Raymond MD Board Certified Radiologist 05/13/2018 10:59 AM EST
[2018-05-13] MEDS: Metoprolol Tartrate 100 MG Tablet PO SCH ×2 (11:02→20:10)
[2018-05-13] MEDS: Enoxaparin Inj 40 MG/0.4 ML Syringe SQ SCH (11:02)
[2018-05-13] MEDS: Docusate Sodium 100 MG Capsule PO SCH ×2 (11:02→20:10)
[2018-05-13] MEDS: guaiFENesin 600 MG ER Tablet PO SCH ×2 (11:06→20:11)
[2018-05-13] MEDS: Chlorhexidine 0.12% Oral Kit 15 ML UDC OROPHARYNG SCH ×2 (11:06→20:11)
[2018-05-13] MEDS: Sodium Chloride 0.9% 2 ML Flush BID IV.FLUSH SCH ×2 (11:07→20:11)
[2018-05-13] MEDS: Famotidine PF Inj 20 MG/2 ML Vial IV.PUSH SCH ×2 (11:07→20:46)
[2018-05-13] MEDS: Sennosides Liq 8.8 MG/5 ML UDC PO SCH (11:08)
[2018-05-13] MEDS: Collagenase Oint 30 GM Tube TOPICAL SCH (11:10)
[2018-05-13] MEDS: Potassium Chlor 20 mEq Premix 20 MEQ/100 ML PIGGYBACK IV.SIG PRN ×4 (11:17→17:25)
[2018-05-13] MEDS ORDERED: Sod Chloride 0.9% Inj 1,000 ML IV.SIG SCH (11:45)
--- NOTE | 2018-05-13 18:59 | P.PNPL ---
Subjective Interval history: 72 YOWM with MRSA Pn, cavitary lesion, COPD, Lt ptx mild sob Had coughing spell with eating NPO On NRB Ant. chest tube removed Physical Exam Vital signs: Vital Signs 05/12/18 19:00 05/12/18 19:56 05/12/18 20:00 Temperature Pulse Rate 108 H 112 H 111 H Respiratory Rate 33 H 24 26 H Blood Pressure 113/71 90/60 L Pulse Oximetry 94 L 92 L 92 L 05/12/18 20:04 05/12/18 21:00 05/12/18 22:00 Temperature Pulse Rate 110 H 114 H 107 H Respiratory Rate 22 16 28 H Blood Pressure 99/65 L 95/64 L Pulse Oximetry 95 94 L 05/12/18 23:00 05/13/18 00:00 05/13/18 01:00 Temperature 98.7 F Pulse Rate 98 H 89 90 Respiratory Rate 27 H 24 27 H Blood Pressure 98/64 L 102/69 106/72 Pulse Oximetry 94 L 93 L 95 05/13/18 01:53 05/13/18 02:00 05/13/18 03:00 Temperature Pulse Rate 93 H 92 H 94 H Respiratory Rate 29 H 28 H Blood Pressure 113/75 111/79 Pulse Oximetry 93 L 97 05/13/18 03:42 05/13/18 04:00 05/13/18 05:00 Temperature 98.4 F Pulse Rate 91 H 97 H 99 H Respiratory Rate 22 25 H 30 H Blood Pressure 119/75 118/76 Pulse Oximetry 93 L 92 L 05/13/18 06:00 05/13/18 07:00 05/13/18 08:00 Temperature 97.8 F Pulse Rate 100 H 103 H 106 H Respiratory Rate 13 23 27 H Blood Pressure 116/70 119/73 129/80 Pulse Oximetry 92 L 93 L 92 L 05/13/18 09:00 05/13/18 10:00 05/13/18 10:18 Temperature Pulse Rate 109 H 118 H 129 H Respiratory Rate 26 H 35 H 30 H Blood Pressure 122/81 116/81 Pulse Oximetry 93 L 91 L 85 L 05/13/18 10:48 05/13/18 10:49 05/13/18 11:00 Temperature Pulse Rate 125 H 128 H Respiratory Rate 30 H 26 H Blood Pressure Pulse Oximetry 91 L 92 L 05/13/18 11:01 05/13/18 12:00 05/13/18 13:00 Temperature 97.6 F Pulse Rate 129 H 123 H 127 H Respiratory Rate 32 H 32 H 32 H Blood Pressure 109/77 107/76 109/73 Pulse Oximetry 90 L 95 93 L 05/13/18 14:00 05/13/18 15:00 05/13/18 15:20 Temperature Pulse Rate 121 H 120 H Respiratory Rate 34 H 32 H Blood Pressure 113/74 114/81 Pulse Oximetry 97 99 98 05/13/18 16:00 05/13/18 17:00 05/13/18 17:15 Temperature 97.6 F Pulse Rate 121 H 129 H Respiratory Rate 32 H 35 H Blood Pressure 114/81 112/79 Pulse Oximetry 93 L 88 L 95 05/13/18 18:00 Temperature Pulse Rate 127 H Respiratory Rate Blood Pressure Pulse Oximetry Intake & Output 05/12/18 05/13/18 05/13/18 18:59 06:59 18:59 Intake Total 740 / 740 490 / 490 620 / 620 Output Total 550 / 550 375 / 375 510 / 510 Balance 190 / 190 115 / 115 110 / 110 Weight 71.9 kg Intake: IV 200 / 200 250 / 250 600 / 600 Teflaro Inj 600 MG In NS Inj 100 / 100 200 / 200 200 / 200 100 ML @ 100 mls/hr IV.SIG Q8H [facility] Rx#:[id number] Cleocin 900 mg/NS Premix 900 mg 100 / 100 50 / 50 100 / 100 In 50 ml @ 100 mls/hr IV.SIG Q8H [facility] Rx#:[id number] KCl 20 mEq Premix Inj 20 meq In 300 / 300 100 ml @ 50 mls/hr IV.SIG Q2H PRN Rx#:[id number] Oral 540 / 540 240 / 240 20 / 20 Output: Urine 500 / 500 375 / 375 Urine Amount (Catheter) 500 / 500 Condom 500 / 500 Chest Tube Drainage 50 / 50 10 / 10 Right Anterior Y Connected 50 / 50 10 10 Other: Date of Last Bowel Movement 05/10/18 # Incontinent Bowel Movements 2 GENERAL: Elderly WM, mild sob SKIN: Warm and dry. HEAD: Normocephalic. EYES: No scleral icterus. No injection or drainage. NECK: Supple, trachea midline. No JVD or lymphadenopathy. CARDIOVASCULAR: Regular rate and rhythm without murmurs, gallops, or rubs. RESPIRATORY: Breath sounds equal bilaterally. No accessory muscle use. Rt chest tube draining GASTROINTESTINAL: Abdomen soft, non-tender, nondistended. MUSCULOSKELETAL: No cyanosis, or edema. BACK: Nontender without obvious deformity. No CVA tenderness. - Urinary Catheter Management Indwelling Urethral Catheter Cath placed during this visit: yes, but has since been removed by the nurse Reason for continuing: Acute urinary retention Insertion date: 04/05/18 Insertion time: 23:00 Removal date: 04/12/18 Removal time: 08:30 Condom Cath placed during this visit: no Reason for continuing: Acute urinary retention Straight Cath placed during this visit: yes, but has since been removed by the nurse Reason for continuing: Not indwelling catheter Insertion date: 05/06/18 Insertion time: 18:00 Removal date: 05/06/18 Removal time: 18:10 Indwelling Temp Sensing Catheter Cath placed during this visit: yes, but has since been removed by the nurse Reason for continuing: Hourly intake/output Insertion date: 05/05/18 Insertion time: 12:15 Removal date: 05/05/18 Removal time: 15:00 Assessment and Plan - Plan IMPRESSION: 1. MRSA pneumonia. 2. Cavitary pneumonia. 4. Chronic obstructive pulmonary disease. 5. Hypotension. 6. Left pneumothorax, status post chest tube.removal 7. Nicotine use. 8. Right Ptx 9. VDRF PLAN: Cont Abx per ID Aerosol nebs Supplement 02 with NRB CPAP prn Chest tube to suction NPO
[2018-05-13 23:52] LABS: Alanine Aminotransferase 32 U/L (12-78); Albumin 1.8 g/dL (3.4-5.0); Alkaline Phosphatase 82 U/L (45-117); Anion Gap 7 meq/L (5-15); Aspartate Aminotransferase 15 U/L (15-37); Blood Urea Nitrogen 15 mg/dL (7-18); Calcium 8.5 mg/dL (8.5-10.1); Carbon Dioxide 29.4 meq/L (21.0-32.0); Chloride 102 meq/L (98-107); Glomerular Filtration Rate Greater Than 89 mL/min (>89); Glucose,Random 114 mg/dL (74-106); Magnesium 1.7 mg/dL (1.5-2.5); Sodium 138 meq/L (136-145); Total Protein 6.3 g/dL (6.4-8.2)
[2018-05-14] MEDS: Oral Hygiene Kit OROPHARYNG SCH ×4 (00:29→18:16)
[2018-05-14] MEDS: Clindamycin 900 mg/NS Premix 900 MG/50 ML PIGGYBACK IV.SIG SCH ×3 (01:46→18:14)
[2018-05-14] MEDS: RESP: Acetylcysteine 10% 4 ML Neb NEB SCH ×4 (04:39→22:53)
[2018-05-14] MEDS: Artificial Tears Opth Drops 15 ML Bottle EACH EYE SCH (04:49)
--- NOTE | 2018-05-14 04:53 | XR ---
EXAM DATE: 05/14/2018 4:44 AM EST AGE/SEX: 72 years / Male INDICATIONS: Shortness of breath, possible pneumothorax. CLINICAL DATA: This is the patient's subsequent encounter. Patient reports that signs and symptoms h ave been present for 1 month and indicates a pain score of Nonresponsive. MEDICAL/SURGICAL HISTORY: Hypertension. Chronic obstructive pulmonary disease. MRSA. . Chest tubes. COMPARISON: [facility] – [place], CHEST 1V SINGLE AP, 05/13/2018. . FINDINGS: Right thoracostomy tube remains in place. Interval slight increase in right chest opacity likely refl ecting increased pleural fluid or thickening. Cyst and volume loss. Contralateral left lung is stable with patchy interstitial prominence. CONCLUSION: Slight interval worsening in aeration. Electronically signed by: Akash Capone MD Board Certified Radiologist 05/14/2018 4:51 AM EST
[2018-05-14 05:53] LABS: Hematocrit 32.3 % (39.0-51.0); Hemoglobin 10.6 gm/dL (13.0-17.0); Mean Corpuscular HGB Conc 32.9 % (32.0-36.0); Mean Corpuscular Hemoglobin 29.3 pg (27.0-34.0); Mean Corpuscular Volume 88.9 fL (80.0-100.0); Mean Platelet Volume 7.2 fL (7.0-11.0); Platelet Count 481 th/mm3 (150-450); Red Blood Count 3.63 mil/mm3 (4.50-5.90); Red Cell Distribution Width 15.3 % (11.6-17.2); White Blood Count 16.8 th/mm3 (4.0-11.0)
--- NOTE | 2018-05-14 07:07 | P.PNCC ---
Subjective Subjective Remarks/Hospital Course: Patient is 72-year-old male with past medical history of COPD, tobacco abuse and hypertension who came to the emergency room for shortness of breath via EMS. On EMS arrival saturation was in the 90s, but patient had significant shortness of breath and dyspnea. Patient received Solu-Medrol 125 mg IV and breathing treatments by EMS and was brought to the emergency department. In the emergency department patient received further breathing treatments and chest x-ray showed patchy infiltrate on bilateral lung fitzgerald. Initially maintaining oxygen saturation with nasal cannula. Initial blood pressure was 85 /65, improved with normal saline boluses. WBC count was 17.1. Patient was deemed septic from pneumonia and patient was ordered to receive vancomycin and Zosyn. While receiving vancomycin patient acutely decompensated became extremely short of breath and developed erythematous maculopapular rash involving face torso armpits and groin region. Emergently intubated and placed on mechanical ventilation by the ED physician. Received IV 50 mg Benadryl. Critical care medicine was requested to admit the patient. I evaluated the patient immediately in the emergency department. Patient is intubated on Versed and fentanyl infusion however he is very asynchronous with the vent triggering ventilator alarms. Severe bilateral expiratory wheezing heard on auscultation. He has extensive skin rash predominantly face forehead torso armpit and groins. Appears like patient had anaphylactic reaction to vancomycin complicated by COPD exacerbation and pneumonia. I have ordered additional Solu-Medrol 100 mg x1 scheduled Benadryl and famotidine, antibiotics with cefepime and Levaquin. Increase Versed infusion, add propofol and use neuromuscular paralysis as needed. Will request pharmacy to add vancomycin to allergy. ED physician Dr. Slater had noticed that patient had some swelling on the left side of his face on arrival, however the skin rash after vancomycin was started was new. Patient remains hypotensive has received 2 L of normal saline in the emergency department and no significant urine output. I have ordered additional 2 L normal saline bolus and maintenance fluid at 84 mL/h. Use Levophed as needed to keep map above 65 Subjective 04/06: Off norepinephrine drip. Currently resting in bed in no acute distress on midazolam and fentanyl drips. Start tube feeding today. 04/07: Remains sedated, intubated on mechanical ventilation. Blood cultures growing MRSA 04/08: remains sedated and intubated. repeat cultures still growing MRSA 2/4 cultures. likely need to repeat BCx either today or tomorrow. agree with narrowing spectrum abx. performed DEEDEE at ID recommendation (need to r/o endocarditis), but no evidence of vegetations. remains hypoxic. off vasopressors today. 04/09: adequate auto-diuresis overnight. off vasopressors. on sedation vacation. hypoxia improving. 04/10 Patient remains intubated and sedated with Fentanyl infusion. Became tachycardic and tachypneic overnight requiring increase sedation. Afebrile. 04/11 Patient is intubated and sedated. Afebrile. 04/12 Patient remains intubated and sedated with Diprivan and Fentanyl infusion, Afebrile. 04/13: Sedated, easily arousable, orally intubated on mechanical ventilation. 04/14 Patient was extubated yesterday. Afebrile. 04/15 Patient is lying in bed in NAD. On 3L oxygen. Awake and alert. 04/16 Patient is on partial rebreather. Afebrile. Awake and alert. 04/17: Left-sided chest tube placed for pneumothorax yesterday. On nasal cannula currently. Awake and alert. Appears comfortable. No air leak noted in Pleur-evac 04/18: Remains on nasal cannula. No air leak noted from left-sided chest tube. 04/19: On 5 L nasal cannula. Chest tube in place, no air leak noted. Resting in bed comfortably, no acute distress. Continues to have productive cough. 04/20: Remains on nasal cannula. Chest tube in place, no air leak noted. Resting in bed comfortably. 04/24: RECONSULT NOTE: called emergently by Hospitalist team. patient with new acute respiratory distress. Chest x-ray demonstrates new large right-sided pneumothorax. I went to evaluate the patient is seen in significant distress. I emergently placed right-sided pigtail chest tube. Significant denney of air with no air leak on chest tube. Respiratory distress improved after chest tube placement. Repeat interval chest x-ray demonstrates good placement of chest tube with resolution of pneumothorax. 04/26/18: RECONSULT NOTE: [facility] reconsulted for rexpansion of right pneumothorax. Patient developed increased SOB today without improvement with nebulizer. STAT CXR Moderate to large right pneumothorax has redeveloped and with a probable tension component. He appears to be in moderate distress tachypneic. Patient was moved to the ICU where I evaluated the patient emergently. The right pigtail chest tube is still in place, minimal air leak. I flushed the chest tube but was difficult to withdraw air. I then pulled back the chest tube by approximately 3 cm. Able to withdraw air more easily and on connection to the Vacutainer again there was significant air leak in all chambers. Patient subjectively felt improvement in shortness of breath after chest tube placement. Stat repeat chest x-ray shows near complete reexpansion of the right knee 04/30/18: [facility] RECONSULT NOTE: Critical care, reconsult for worsening respiratory failure. I evaluate the patient urgently. He is very tachypneic diaphoretic. Chest x-ray today showed possible right upper lobe pneumothorax and increasing right effusion. I did an emergent bedside ultrasound which shows probably loculated complicated right pleural effusion. Patient likely needs more further imaging and procedures and in very labored breathing. Proceeded with endotracheal intubation in place patient on mechanical ventilation. I explained plan of care prior to intubation. He understands that he may need emergency chest tube placement and also may need surgical intervention 05/01/18: Patient remains intubated sedated. Hypotensive on 75 mcg/min of Beau- Synephrine. While sedated. CT chest showed severe right lower lung consolidation large pneumothorax/hydropneumothorax on the right side. Plan for large bore chest tube and central line today. Also cardiothoracic surgery was consulted, and I discussed with Dr. Schaeffer. I will plan for a large bore chest tube to the right side followed by a central line placement. 05/02/18: Patient remains intubated heavily sedated for vent synchrony. Right chest tube with large air leak in all chambers. There is possibility of bronchopleural fistula. Chest x-ray shows improved air entry right lung. Discussed with cardiothoracic surgery Dr. Ontiveros today. Will repeat CT scan to see if lung is reexpanding. May need decortication procedure 05/03/18: Patient remains intubated sedated persistent large air leak. CT reviewed with cardiothoracic surgery Dr. Ontiveros. Will discuss with Dr. Schaeffer in a.m. Probably will benefit from decortication due to the hydropneumothorax and persistent pleural effusions which probably are empyema. Otherwise patient remains critically ill clinically same. [facility] cultures growing staph aureus still 05/04/18: Patient remains sedated critically ill. Chest x-ray shows mostly expanded right lung but with persistent loculated apical pneumothorax and right lower effusion. Plan for surgical intervention by Dr. Schaeffer 05/05/2018 possible decortication. Continue broad-spectrum antibiotics 05/05: Remains sedated, orally intubated on mechanical ventilation. Awaiting OR today for decortication and drainage of loculated effusion and possible repair of air leak site. 05/06: Remains sedated, orally intubated on mechanical ventilation. Status post right VATS with decortication on 05/05. [address] on the right with positive air leak. Subcutaneous emphysema decreasing. 05/07: Remains sedated, orally intubated on mechanical ventilation. Status post right VATS with decortication on 05/05. [address] on the right with positive air leak. Starting tube feeds and CPAP trials 05/08: Remains sedated, orally intubated on mechanical ventilation. Air leak persists from right-sided chest tube 05/09: Sedated, arousable, orally intubated on mechanical ventilation. 1+ air leak from right-sided chest tube noted. On CPAP trial. 05/10: Extubated yesterday. Slightly tachypneic. On nonrebreather facemask this morning. Air leak absent from right chest tube. 05/11: Patient on facemask O2. No air leak noted in right-sided chest tubes this morning. Chest x-ray reveals complete whiteout over right lung field raising concern for mucous plugging. Plan for intubation followed by bronchoscopy and BAL and then attempt to extubate patient. 05/12: Patient underwent intubation followed by bronchoscopy and BAL for right mucous plugging on 05/11 with significant mucus plugging noted which was suctioned out with BAL. Patient was subsequently extubated. Chest x-ray following bronchoscopy showed reexpansion of right lung with no pneumothorax and no air leak from chest tube. This morning patient is resting comfortably on 5 L nasal cannula and denies any shortness of breath. No air leak noted from chest tube. 05/13: Remains on nasal cannula maintaining oxygen saturation. Appears deconditioned. Chest x-ray shows improving aeration. Will get physical therapy to mobilize patient out of bed daily. Anterior chest tube to be removed by CT surgery today Subjective 05/14: Afebrile. Currently on nonrebreather mask. Aggressive pulmonary toilet initiated. Currently n.p.o. Objective Vital Signs / I&O: Vital Signs 05/13/18 08:00 05/13/18 09:00 05/13/18 10:00 Temperature 97.8 F Pulse Rate 106 H 109 H 118 H Respiratory Rate 27 H 26 H 35 H Blood Pressure 129/80 122/81 Pulse Oximetry 92 L 93 L 91 L 05/13/18 10:18 05/13/18 10:48 05/13/18 10:49 Temperature Pulse Rate 129 H 125 H Respiratory Rate 30 H 30 H Blood Pressure 116/81 Pulse Oximetry 85 L 91 L 05/13/18 11:00 05/13/18 11:01 05/13/18 12:00 Temperature 97.6 F Pulse Rate 128 H 129 H 123 H Respiratory Rate 26 H 32 H 32 H Blood Pressure 109/77 107/76 Pulse Oximetry 92 L 90 L 95 05/13/18 13:00 05/13/18 14:00 05/13/18 15:00 Temperature Pulse Rate 127 H 121 H 120 H Respiratory Rate 32 H 34 H 32 H Blood Pressure 109/73 113/74 114/81 Pulse Oximetry 93 L 97 99 05/13/18 15:20 05/13/18 16:00 05/13/18 17:00 Temperature 97.6 F Pulse Rate 121 H 129 H Respiratory Rate 32 H 35 H Blood Pressure 114/81 112/79 Pulse Oximetry 98 93 L 88 L 05/13/18 17:15 05/13/18 18:00 05/13/18 20:00 Temperature 99 F Pulse Rate 127 H 109 H Respiratory Rate 39 H Blood Pressure 109/80 Pulse Oximetry 95 96 05/13/18 20:37 05/13/18 20:51 05/13/18 20:58 Temperature Pulse Rate 100 H 100 H Respiratory Rate 36 H 40 H Blood Pressure Pulse Oximetry 94 L 05/13/18 22:00 05/14/18 00:00 05/14/18 00:36 Temperature 98.8 F Pulse Rate 101 H 107 H Respiratory Rate 34 H Blood Pressure 126/82 Pulse Oximetry 96 93 L 05/14/18 02:00 05/14/18 04:00 05/14/18 04:40 Temperature 99.0 F Pulse Rate 109 H 109 H 104 H Respiratory Rate 30 H 20 Blood Pressure 109/75 Pulse Oximetry 95 05/14/18 06:00 Temperature Pulse Rate 123 H Respiratory Rate Blood Pressure Pulse Oximetry Intake & Output 05/13/18 05/14/18 05/14/18 18:59 06:59 18:59 Intake Total 620 / 620 608 / 608 Output Total 510 / 510 400 / 400 Balance 110 / 110 208 / 208 Weight 71.5 kg Intake: IV 600 / 600 588 / 588 Teflaro Inj 600 MG In NS Inj 200 / 200 100 / 100 100 ML @ 100 mls/hr IV.SIG Q8H [facility] Rx#:[id number] Cleocin 900 mg/NS Premix 900 mg 100 / 100 50 / 50 In 50 ml @ 100 mls/hr IV.SIG Q8H [facility] Rx#:[id number] KCl 20 mEq Premix Inj 20 meq In 300 / 300 100 / 100 100 ml @ 50 mls/hr IV.SIG Q2H PRN Rx#:[id number] NS Inj 1,000 ML @ 50 mls/hr IV. 338 / 338 SIG .Q20H [facility] Rx#:[id number] Oral 20 / 20 20 / 20 Output: Urine Amount (Catheter) 500 / 500 400 / 400 Condom 500 / 500 400 / 400 Chest Tube Drainage Right Anterior Y Connected Other: Date of Last Bowel Movement 05/12/18 # Bowel Movements 0 Result Diagrams: 05/14/18 05:40 05/13/18 23:20 Other Results: Microbiology 05/05/18 12:10 Tissue - Other Acid Fast Bacilli Smear - Final No acid fast bacilli seen 05/05/18 12:10 Tissue - Other Mycobacterial Culture - Preliminary No growth in 1 week 05/05/18 12:10 Tissue - Other Fungal Smear - Final No fungal elements seen 05/05/18 12:10 Tissue - Other Fungal Culture - Preliminary No growth in 1 week 05/05/18 12:50 Fluid - Pleural fluid Fungal Smear - Final No fungal elements seen 05/05/18 12:50 Fluid - Pleural fluid Fungal Culture - Preliminary No growth in 1 week 05/05/18 12:50 Fluid - Pleural fluid Acid Fast Bacilli Smear - Final No acid fast bacilli seen 05/05/18 12:50 Fluid - Pleural fluid Mycobacterial Culture - Preliminary No growth in 1 week 05/05/18 12:10 Tissue - Other Fungal Smear - Final No fungal elements seen 05/05/18 12:10 Tissue - Other Fungal Culture - Preliminary No growth in 1 week 05/05/18 12:10 Tissue - Other Acid Fast Bacilli Smear - Final No acid fast bacilli seen 05/05/18 12:10 Tissue - Other Mycobacterial Culture - Preliminary No growth in 1 week 05/01/18 11:00 Bronchial Washings - Right Acid Fast Bacilli Smear - Final No acid fast bacilli seen 05/01/18 11:00 Bronchial Washings - Right Mycobacterial Culture - Preliminary No growth in 1 week 05/05/18 12:10 Tissue - Other Gram Stain - Final 05/05/18 12:10 Tissue - Other Wound Culture - Final No growth in 72 hours (aerobically and anaerobically ) 05/05/18 12:50 Fluid - Pleural fluid Gram Stain - Final 05/05/18 12:50 Fluid - Pleural fluid Body Fluid Culture - Final No growth in 72 hours (aerobically and anaerobically ) 05/05/18 12:10 Tissue - Other Gram Stain - Final 05/05/18 12:10 Tissue - Other Wound Culture - Final S. aureus MRSA 05/01/18 11:00 Bronchial - Right Gram Stain - Final 05/01/18 11:00 Bronchial - Right Bronchial Culture - Final S. aureus MRSA 05/01/18 11:00 Bronchial Washings - Right Fungal Smear - Final No fungal elements seen 05/01/18 11:00 Bronchial Washings - Right Fungal Culture - Preliminary 04/28/18 05:35 Sputum - Expectorated Sputum Gram Stain - Final 04/28/18 05:35 Sputum - Expectorated Sputum Sputum Culture - Final S. aureus MRSA 04/16/18 04:39 Blood - Peripheral Aerobic Blood Culture - Final No growth in 5 days 04/16/18 04:39 Blood - Peripheral Anaerobic Blood Culture - Final No growth in 5 days 04/16/18 04:27 Blood - Peripheral Aerobic Blood Culture - Final No growth in 5 days 04/16/18 04:27 Blood - Peripheral Anaerobic Blood Culture - Final No growth in 5 days 04/12/18 13:55 Blood - Peripheral Aerobic Blood Culture - Final No growth in 5 days 04/12/18 13:55 Blood - Peripheral Anaerobic Blood Culture - Final No growth in 5 days 04/12/18 13:47 Blood - Peripheral Aerobic Blood Culture - Final No growth in 5 days 04/12/18 13:47 Blood - Peripheral Anaerobic Blood Culture - Final No growth in 5 days 04/10/18 11:42 Blood - Peripheral Aerobic Blood Culture - Final No growth in 5 days 04/10/18 11:42 Blood - Peripheral Anaerobic Blood Culture - Final S. aureus MRSA 04/09/18 08:47 Blood - Peripheral Aerobic Blood Culture - Final No growth in 5 days 04/09/18 08:47 Blood - Peripheral Anaerobic Blood Culture - Final S. aureus MRSA 04/09/18 08:45 Blood - Peripheral Aerobic Blood Culture - Final S. aureus MRSA 04/09/18 08:45 Blood - Peripheral Anaerobic Blood Culture - Final S. aureus MRSA 04/10/18 11:35 Blood - Peripheral Aerobic Blood Culture - Final S. aureus MRSA 04/10/18 11:35 Blood - Peripheral Anaerobic Blood Culture - Final S. aureus MRSA 04/10/18 09:30 Sputum - Endotracheal Gram Stain - Final 04/10/18 09:30 Sputum - Endotracheal Sputum Culture - Final S. aureus MRSA 04/07/18 07:25 Blood - Peripheral Aerobic Blood Culture - Final S. aureus MRSA 04/07/18 07:25 Blood - Peripheral Anaerobic Blood Culture - Final S. aureus MRSA 04/07/18 07:34 Blood - Peripheral Aerobic Blood Culture - Final S. aureus MRSA 04/07/18 07:34 Blood - Peripheral Anaerobic Blood Culture - Final S. aureus MRSA 04/06/18 04:30 Sputum - Endotracheal Gram Stain - Final 04/06/18 04:30 Sputum - Endotracheal Sputum Culture - Final S. aureus MRSA 04/05/18 21:30 Blood - Peripheral Aerobic Blood Culture - Final S. aureus MRSA 04/05/18 21:30 Blood - Peripheral Anaerobic Blood Culture - Final S. aureus MRSA 04/05/18 21:40 Blood - Peripheral Aerobic Blood Culture - Final S. aureus MRSA 04/05/18 21:40 Blood - Peripheral Anaerobic Blood Culture - Final S. aureus MRSA 04/05/18 00:45 Clean Catch Urine Urine Culture - Final No growth in 48 hours 04/05/18 21:55 Nasal Wash Influenza Types A,B Antigen - Final Negative for FLU A and B antigen Infection due to influenza A or B cannot be ruled out since the antigen present in the sample may be below the detection limit of the test. Imaging: Chest X-Ray 04/05/18 21:24 CONCLUSION: Multifocal bilateral pulmonary opacity suspicious for multifocal consolidation. Recommend radiographic follow-up to resolution. Chest X-Ray 04/05/18 22:49 CONCLUSION: Interval intubation. Unchanged bilateral pulmonary consolidations. Chest CT 04/06/18 00:00 CONCLUSION: 1. Patchy bilateral areas of consolidation most likely infectious in etiology. 2. 1.5 cm left lower lobe pulmonary nodule. Close follow-up of this nodule is suggested. Consideration could be made to an outpatient PET CT to further assess. 3. Coronary artery atherosclerotic calcifications. Face CT 04/06/18 00:00 CONCLUSION: 1. Small focal area of soft tissue swelling involving the lateral orbital margin on the left. No abscess. Chest X-Ray 04/07/18 06:00 CONCLUSION: Unchanged bilateral pulmonary infiltrates and tiny left effusion. Abdomen/Pelvis CT 04/10/18 00:00 CONCLUSION: 1. Findings in the patient's chest discussed on the patient's chest CT. 2. Left renal stone without hydronephrosis. 3. Slight AAA. 4. Possible gallstones within the gallbladder. 5. There is slight fluid within the peritoneal cavity in the pelvis and within left perinephric space and stranding densities involving the Gerota's fascia on the left side. The exact etiology is not certain could be inflammatory, and there is no hydronephrosis. Chest CT 04/10/18 00:00 CONCLUSION: 1. Significant worsening of the patient's lungs with interval development of numerous nodules multiple cavitary lesions which demonstrate air-fluid levels within them characteristic of a very aggressive infectious process destroying the patient's lungs could be seen with necrotizing MRSA, however the appearance is nonspecific. Chest X-Ray 04/10/18 08:03 CONCLUSION: Slight interval worsening right basilar consolidation and persistent stable right upper lobe and left basilar consolidations. Head MRI 04/12/18 00:00 CONCLUSION: 1. Some chronic changes with mild cortical and central atrophy. Minimal periventricular and scattered deep white matter tract areas of small vessel ischemic demyelination. 2. Some fluid or secretions identified in the dependent portion of the nasopharynx. 3. Otherwise negative. No findings of intracranial mass lesion/abscess. Lumbar Spine MRI 04/12/18 00:00 CONCLUSION: 1. No evidence of epidural abscess. 2. Grade 1 anterolisthesis at L5-S1 with associated discogenic degenerative changes and bilateral pars defects. There is significant bilateral bony neural foraminal stenosis with bilateral neural impingement. 3. Asymmetric ligamentum flavum hypertrophy on the right side at the L4-5 level flattens the dorsal lateral aspect of the thecal sac. Neural foramen remain patent. 4. Suggestion of distended urinary bladder, incompletely imaged in the field-of -view. Thoracic Spine MRI 04/12/18 00:00 CONCLUSION: 1. Small bilateral pleural effusions. 2. Spinal canal is widely patent throughout without cord compromise. No findings of a paravertebral abscess. Abdomen X-Ray 04/12/18 09:42 CONCLUSION: No evidence of ileus. Chest X-Ray 04/13/18 00:00 CONCLUSION: 1. No significant interval change. 2. Stable ETT and NGT. 3. Stable right upper lobe airspace consolidation. 4. Stable bilateral lower lobe patchy airspace disease. Gallium Scan Nuclear Medicine 04/13/18 00:00 CONCLUSION: 1. There is abnormal uptake in the lungs corresponding to cavitary lesions probably lung abscesses and areas of consolidation seen on the patient's prior chest CT. Chest X-Ray 04/15/18 08:47 CONCLUSION: 1. Bilateral airspace disease with consolidation/fibrosis in the right upper lung, cavitary lesion in the left upper lobe and bibasilar airspace disease, left worse than right. There is actually some improving aeration in the right lung base. 2. Questionable pleural reflection in the left upper lobe. Cannot exclude a small pneumothorax. Repeat chest radiograph in expiration for reevaluation. 3. Interval removal of life-support tubes including the endotracheal and nasogastric tubes. Chest X-Ray 04/16/18 09:11 CONCLUSION: Stable chest appearance with bilateral infiltrates and small suspected left apical pneumothorax Chest CT 04/16/18 10:15 CONCLUSION: 1. A 23 mm left sided pneumothorax is identified. 2. Multiple cavitary lesions are again noted and slightly worse in appearance than on the previous examination. 3. Consolidation of the right upper lobe is again noted and [demonstrates] worsening cavitation. 4. Increased cavitation of the large left upper lobe lesion also. 5. Small partially loculated pleural effusions are noted. 6. Bibasilar alveolar consolidations are noted posteriorly consistent with probable atelectasis. 7. Tiny pericardial effusion is noted. 8. Degenerative changes are noted throughout the thoracic and upper lumbar spine. Chest X-Ray 04/16/18 13:47 CONCLUSION: 1. Tiny 6 mm left apical pneumothorax is still noted status post left chest tube placement. 2. Stable scattered cavitary lesions. 3. Small bilateral pleural effusions. Chest X-Ray 04/17/18 07:00 CONCLUSION: 1. Very small left apical pneumothorax, slightly decreased from the prior study. 2. Left-sided chest tube remains in place. 3. No change in bilateral pulmonary opacities. Chest X-Ray 04/20/18 00:00 CONCLUSION: 1. Persistent and unchanged bilateral pulmonary consolidations. 2. No pneumothorax. Chest X-Ray 04/22/18 07:00 CONCLUSION: No significant change compared to 04/20/2018. Chest X-Ray 04/24/18 00:00 CONCLUSION: 1. Moderate to large right-sided pneumothorax. Chest X-Ray 04/24/18 00:00 CONCLUSION: Right-sided chest tube in good position. No significant residual pneumothorax is identified. Elongated infiltrate right upper lobe is unchanged Chest X-Ray 04/24/18 07:01 CONCLUSION: Elongated density in the right lung apex. Left chest tube in stable position. Chest X-Ray 04/24/18 11:47 CONCLUSION: 1. Tiny left apical pneumothorax following left chest tube removal. 2. Bilateral cavitary lesions and airspace opacities are stable. Chest X-Ray 04/26/18 00:00 CONCLUSION: Moderate to large right pleural effusion has redeveloped and with a probable slight tension component. Small-caliber right chest tube remains in place. Chest X-Ray 04/26/18 16:57 CONCLUSION: Reexpansion of the right lung with no evidence of residual pneumothorax. Chest X-Ray 04/27/18 06:00 CONCLUSION: Right chest tube remains in place with small residual right pneumothorax and bilateral patchy airspace disease. Chest X-Ray 04/28/18 07:00 CONCLUSION: Small-caliber right chest tube as above with probable small right basilar pneumothorax, stable. Stable bilateral airspace disease. Chest X-Ray 04/29/18 00:00 CONCLUSION: Suspected development of areas of pneumothorax of the right upper lung despite a right chest tube. Suspected area of scarring over the right upper lung. Increased density at the mid and lower right chest related to consolidation, atelectasis and/or effusion. There may be some subpulmonic air seen on the right side. Left base atelectasis or consolidation with a possible minimal left pleural effusion. This information will be relayed to the floor. Chest X-Ray 04/30/18 07:00 CONCLUSION: Small-caliber right chest tube with probable loculated right pneumothorax. Right pleural effusion. Findings are similar to April 29. Chest CT 04/30/18 15:36 CONCLUSION: 1. Right-sided pigtail catheter identified in the right mid chest with a very large right-sided pneumothorax remaining. There is extensive consolidation throughout the only aerated portions of the right lung with debris in the right bronchus and bronchus intermedius. Bronchoscopy would be helpful to better evaluate the bronchial contents. 2. There is multiloculated fluid collections in the right lower lobe and the right inferior lateral costophrenic angle could be multiloculated infection. 3. Small pleural effusion and some pleural thickening of the left chest. Chest X-Ray 04/30/18 15:46 CONCLUSION: ET tube has been placed in excellent position between the clavicles and the haseeb. Extensive fluid and air throughout the right thoracic cavity. Right- sided pigtail catheter of the mid chest in good position Chest X-Ray 05/01/18 06:00 CONCLUSION: 1. Prominent right-sided pneumothorax with small caliber chest tube. 2. Pleural-parenchymal densities throughout the right lung. 3. Patchy densities in the left lung. Chest X-Ray 05/01/18 09:52 CONCLUSION: Interval resolution of a loculated right pneumothorax along the lateral chest wall following chest tube placement. Persistent moderate-sized loculated pneumothorax in the right paramediastinal region of the upper lung field. Chest CT 05/02/18 00:00 CONCLUSION: 1. Overall improving exam with improved aeration of the right hemithorax. Persistent areas of loculated pleural effusion. These demonstrate foci of air within the right lower lobe and are concerning for abscess. Airspace abnormalities within the left hemithorax appears stable to smaller in size from prior exam. Chest X-Ray 05/02/18 06:00 CONCLUSION: Right chest tube. A pneumothorax is not clearly seen on this examination. Increased density in the right hilar region extending into the right upper lobe. Central mass could have this appearance. Suspected consolidation and/or atelectasis at the right base. Mild right pleural effusion. Minimal increased density at the lateral left base. Linear density seen in the left upper lobe which could be from scarring. Chest X-Ray 05/03/18 00:00 CONCLUSION: Lines and tubes appear appropriate in position. There is increased size of a right apical pneumothorax and increased pleural fluid. Resolving right-sided subcutaneous emphysema. Chest X-Ray 05/04/18 06:00 CONCLUSION: 1. No significant change is appreciated. Right chest tube remains present and there is a persistent right pneumothorax. 2. Stable right basilar opacity characteristic of pleural effusion with associated volume loss and/or airspace consolidation. The right upper lobe opacity is also stable. Chest X-Ray 05/05/18 06:00 CONCLUSION: 1. Stable right pleural effusion associated volume loss and/or airspace consolidation. 2. Right chest tube remains present and no pneumothorax is visualized. Chest X-Ray 05/05/18 13:31 CONCLUSION: 1. There appears to be a very small right-sided loculated pneumothorax in the right costophrenic angle with 9 mm of separation. There is a right-sided chest tube in place. 2. No change in the streaky parenchymal infiltrates in the right lung. Chest X-Ray 05/06/18 13:31 CONCLUSION: Support equipment in satisfactory position. There are [address] on the right. No significant residual pneumothorax identified. Chest X-Ray 05/07/18 00:00 CONCLUSION: No significant interval change. No evidence of pneumothorax. Chest X-Ray 05/07/18 06:00 CONCLUSION: 1. 2 right chest tubes are present and no pneumothorax is visualized. 2. Stable right apex parenchymal opacity and small right basilar opacity. Chest X-Ray 05/11/18 06:46 CONCLUSION: Significant deterioration appearance of the chest as above Findings discussed with Dr. Sejal Nagy Chest X-Ray 05/11/18 09:53 CONCLUSION: Improved aeration of the right lung with residual patchy areas of infiltrate in the upper and lower lungs and residual moderate size pleural effusion. No pneumothorax seen. Chest X-Ray 05/12/18 07:30 CONCLUSION: Slight left lung base atelectasis and/or infiltrate is seen not present previously, otherwise not changed . Chest X-Ray 05/13/18 00:00 CONCLUSION: Possible small loculated air collection on the right following removal of chest tube. Lower chest tube in good position. Otherwise no significant interval change. Chest X-Ray 05/13/18 05:00 CONCLUSION: Improving aeration Chest X-Ray 05/14/18 06:00 CONCLUSION: Slight interval worsening in aeration. Objective Remarks: GENERAL: This is a 72-year-old male currently resting in bed in no acute distress SKIN: Warm and dry. HEAD: Atraumatic. Normocephalic. EYES: Pupils equal and round. No scleral icterus. ENT: No nasal bleeding or discharge. Mucous membranes moist. NECK: Trachea midline. No JVD. CARDIOVASCULAR: S1-S2 normal no murmur RESPIRATORY: Air entry decreased on the right compared to left side, scattered rhonchi bilaterally. Dressing over surgical site. Chest tube x2 to the right with no airleak. Anterior chest tube to be removed today by CT surgery GASTROINTESTINAL: Abdomen soft, non-tender, nondistended. no guarding. MUSCULOSKELETAL: Extremities without clubbing, cyanosis, or edema. No obvious deformities. NEUROLOGICAL: Awake, alert, following commands. Moves all extremities withdraws to pain. No focal deficits Assessment and Plan - Problem List (1) COPD with acute exacerbation Code(s): J44.1 - Chronic obstructive pulmonary disease with (acute) exacerbation Status: Acute (2) Bilateral pneumonia Code(s): J18.9 - Pneumonia, unspecified organism Status: Acute (3) Allergic reaction caused by a drug Code(s): T78.40XA - Allergy, unspecified, initial encounter Status: Acute (4) Acute respiratory failure Code(s): J96.00 - Acute respiratory failure, unspecified whether with hypoxia or hypercapnia Status: Acute (5) Severe sepsis Code(s): A41.9 - Sepsis, unspecified organism; R65.20 - Severe sepsis without septic shock Status: Acute (6) Leukocytosis Code(s): D72.829 - Elevated white blood cell count, unspecified Status: Acute (7) Hypotension Code(s): I95.9 - Hypotension, unspecified Status: Acute (8) Acute kidney injury Code(s): N17.9 - Acute kidney failure, unspecified Status: Acute (9) Hyponatremia Code(s): E87.1 - Hypo-osmolality and hyponatremia Status: Acute (10) Hyperglycemia Code(s): R73.9 - Hyperglycemia, unspecified Status: Acute (11) History of hypertension Code(s): Z86.79 - Personal history of other diseases of the circulatory system Status: Chronic (12) Tobacco abuse Code(s): Z72.0 - Tobacco use Status: Chronic (13) History of COPD Code(s): Z87.09 - Personal history of other diseases of the respiratory system Status: Chronic - Assessment and Plan Plan: Neuro/Psych -Acetaminophen 650 p.o. every 6 hours as needed fever -Hydrocodone/acetaminophen 5/325 1 tablet every 4 hours as needed pain 1 through 5 - Morphine sulfate 2 mg IV every 2 hours as needed pain 6 or 10 RESP: Acute hypoxemic respiratory failure Persistent right-sided pneumothorax Right-sided complicated pleural effusion, probable empyema History of COPD Tobaccoism Left lower lobe 1.5 cm pulmonary nodule. Outpatient PET scan -Extubated on 05/09. Chest x-ray from 05/11 showed white out on the right side suggesting atelectasis, suspect mucous plugging. -s/p intubation followed by bronchoscopy and BAL with removal of significant mucous plugs from right mainstem bronchus and subsequent extubation on 05/11 -Albuterol/ipratropium aerosols every 4 hours with albuterol aerosols every 2 as needed dyspnea -EZ Pap every 4 hours -CT of the chest 04/30/2018 shows large persistent right pneumothorax pl effusion and significant right lower lung consolidation with probable cavitation /abscess -s/p 28 Tanz[place] chest tube to the right side, now with reexpansion of the lung but continued air leak -Dr. Carey did bronchoscopy- large amount of mucus plugging removed from right upper lobe -Repeat CT chest shows good reexpansion of the right lung. Persistent hydropneumothorax apically and right lower lung region. Loculated hydropneumothorax may be empyema -Status post right VATS with decortication 05/05/2018 -Continue antibiotics per ID -Anterior chest tube was removed today however patient became hypoxemic. Stat chest x-ray pending CV: Essential hypertension Coronary artery disease Grade 1 diastolic dysfunction -Normal saline IV fluids 50 ml per hour-discontinued today -Currently metoprolol tartrate 100 mg twice daily/150 twice daily at home- holding lisinopril 40 mg by mouth daily for hypertension. -2D echocardiogram 04/06/2018 revealed grade 1 diastolic dysfunction GI -n.p.o. due to acute hypoxia following chest tube placement Renal/: -Monitor creatinine daily. Follow trends -Monitor urine output -Accurate I's and O's. ID: Status post right VATS 05/05/2018 MRSA pneumonia with probable lung abscess (Zyvox resistant) Severe necrotizing pneumonia Probable septic emboli to the left lung MRSA bacteremia MRSA pneumonia -Antibiotics per ID. Currently on ceftaroline and clindamycin for linezolid resistant staph aureus Anaphylaxis to vancomycin noted -Further cultures per ID -[id number] cultures negative -Status post right VATS with decortication on 05/05 -Blood cultures MRSA. -Sputum 04/28 MRSA -Tissue culture 05/05 MRSA HEME: Leukocytosis Normocytic anemia Thrombocytosis -Monitor CBC, coags -No indication for transfusion of blood products at this time ENDO: -Electrolyte replacement per protocol -Sliding scale insulin if needed PROPH: -Bilateral lower extremity SCDs. /famotidine. Resumed lovenox 05/07 LINES: -Utilize peripheral IVs, right subclavian central line placed 05/01/18 Level 2 follow-up (2) Bilateral pneumonia Qualifiers: Pneumonia type: due to unspecified organism Lung location: unspecified part of lung Qualified Code(s): J18.9 - Pneumonia, unspecified organism (3) Allergic reaction caused by a drug Qualifiers: Encounter type: initial encounter Qualified Code(s): T78.40XA - Allergy, unspecified, initial encounter (4) Acute respiratory failure Qualifiers: Respiratory failure complication: unspecified whether with hypoxia or hypercapnia Qualified Code(s): J96.00 - Acute respiratory failure, unspecified whether with hypoxia or hypercapnia (6) Leukocytosis Qualifiers: Leukocytosis type: unspecified Qualified Code(s): D72.829 - Elevated white blood cell count, unspecified (7) Hypotension Qualifiers: Hypotension type: unspecified hypotension type Qualified Code(s): I95.9 - Hypotension, unspecified
[2018-05-14] MEDS ORDERED: Sodium Chloride 0.45 % Inj 1,000 ML IV.CONT SCH (07:30)
[2018-05-14] MEDS: Chlorhexidine 0.12% Oral Kit 15 ML UDC OROPHARYNG SCH ×2 (07:52→20:47)
[2018-05-14] MEDS ORDERED: Magnesium Sulfate Inj 4 GM in Dextrose 5% in Water Inj 100 ML IV.SIG ONE ×2 (08:00)
[2018-05-14] MEDS: Metoprolol Tartrate 100 MG Tablet PO SCH ×2 (08:57→20:47)
[2018-05-14] MEDS: Famotidine PF Inj 20 MG/2 ML Vial IV.PUSH SCH ×2 (08:58→20:47)
[2018-05-14] MEDS: Sodium Chloride 0.9% 2 ML Flush BID IV.FLUSH SCH ×2 (08:58→20:49)
[2018-05-14] MEDS: guaiFENesin 600 MG ER Tablet PO SCH ×2 (08:59→20:47)
[2018-05-14] MEDS: Docusate Sodium 100 MG Capsule PO SCH ×2 (08:59→20:47)
[2018-05-14] MEDS: Enoxaparin Inj 40 MG/0.4 ML Syringe SQ SCH (08:59)
[2018-05-14] MEDS: Sennosides Liq 8.8 MG/5 ML UDC PO SCH (09:00)
[2018-05-14] MEDS: Collagenase Oint 30 GM Tube TOPICAL SCH (09:00)
--- NOTE | 2018-05-14 11:17 | P.PNCV ---
- Note Subjective/Hospital Course: A 72-year-old male admitted on 04/05/2018 via the emergency department for shortness of breath, brought in by EMS with COPD exacerbation, also history of tobacco abuse. The patient became hypotensive, was found to have bilateral patchy infiltrates and was deemed septic from pneumonia, received immediate antibiotics. He also received a dose of vancomycin and apparently had some post maculopapular rash. He was emergently intubated and placed on ventilator by the emergency physician. Patient was successfully resuscitated with IV fluids, transferred to the emergency department where he remained on pressors. He was actually extubated on 04/14/2018 and was found to have developed a left- sided pneumothorax. A chest tube was placed and on 04/24/2018 patient went into acute respiratory distress. The chest x-ray showed a new right-sided pneumothorax and emergent right-sided chest tube was placed and respiratory distress improved after the placement and then on 04/26/2018 the patient had increasing shortness of breath despite nebulizer treatment. He was transferred again back to the ICU. The right chest tube was pulled back and adjusted with improved shortness of breath after the chest tube placement and on 04/30/2018 the patient apparently had increasing shortness of breath which showed a possible right upper lobe pneumothorax despite the chest tube and increasing effusion. Bedside ultrasound showed loculated complicated effusion. The patient was then reintubated and we were consulted to evaluate for right upper lobe loculated effusion. The patient now has [address] with air leak. He does have some subcutaneous emphysema. CT Chest 05/02 CONCLUSION: 1. Overall improving exam with improved aeration of the right hemithorax. Persistent areas of loculated pleural effusion. These demonstrate foci of air within the right lower lobe and are concerning for abscess. Airspace abnormalities within the left hemithorax appears stable to smaller in size from prior exam. 05/04 CT chest discussed with Dr Saenz results evaluated by Dr Victoria attempted to contact Daughter Liliana plan is for surgery in am Right thoracoscopic exploration with evacuation of loculated pleural effusion , possible decortication pt remains on vent sedated , right chest tube with + air leak / pig tail cath has been removed 05/05 - Preoperative Diagnosis (1) Empyema (2) Bilateral pneumonia (3) Acute respiratory failure (4) Severe sepsis R VATS decortication 05/06 remains sedated on vent 40%fio2 cultures path pending Vent per CCM [address], + 1 air leak no subq emphysema 05/07 now has 3+ air leak , nesah increase suction to 30cm for now if no improvement can go to 40cm sedated on vent , weaning as per CCM no growth in cultures from 05/05 to date continue antibiotics 05/12 pt was reintubated yesterday for bronch 2/ mucous plugs, extubated on 5 liters chest tube placed to water seal, eval for removal of one possible both chest tubes in next day or so, would like pt to at least be OOB to stretcher chair daily 05/13 anterior chest tube removed posterior tube left in place eval removal next couple of days 05/14 minimal drainage in chest tube, removed without difficulty leave current dressing in place x 48 hours , then ok to remove Objective: Vital Signs - 24 hr 05/13/18 12:00 05/13/18 13:00 05/13/18 14:00 Temperature 97.6 F Pulse Rate 123 H 127 H 121 H Respiratory Rate 32 H 32 H 34 H Blood Pressure 107/76 109/73 113/74 Pulse Oximetry 95 93 L 97 05/13/18 15:00 05/13/18 15:20 05/13/18 16:00 Temperature 97.6 F Pulse Rate 120 H 121 H Respiratory Rate 32 H 32 H Blood Pressure 114/81 114/81 Pulse Oximetry 99 98 93 L 05/13/18 17:00 05/13/18 17:15 05/13/18 18:00 Temperature Pulse Rate 129 H 127 H Respiratory Rate 35 H 35 H Blood Pressure 112/79 115/79 Pulse Oximetry 88 L 95 97 05/13/18 19:00 05/13/18 20:00 05/13/18 20:37 Temperature 99 F Pulse Rate 127 H 109 H 100 H Respiratory Rate 35 H 39 H 36 H Blood Pressure 104/73 109/80 Pulse Oximetry 94 L 96 05/13/18 20:51 05/13/18 20:58 05/13/18 21:00 Temperature Pulse Rate 100 H 97 H Respiratory Rate 40 H 36 H Blood Pressure 122/83 Pulse Oximetry 94 L 93 L 05/13/18 22:00 05/13/18 23:00 05/14/18 00:00 Temperature 98.8 F Pulse Rate 101 H 100 H 107 H Respiratory Rate 36 H 34 H 36 H Blood Pressure 124/81 109/75 126/82 Pulse Oximetry 94 L 94 L 90 L 05/14/18 00:02 05/14/18 00:36 05/14/18 01:00 Temperature Pulse Rate 106 H 104 H Respiratory Rate 33 H 35 H Blood Pressure 126/82 126/78 Pulse Oximetry 93 L 93 L 96 05/14/18 02:00 05/14/18 03:00 05/14/18 04:00 Temperature 99.0 F Pulse Rate 107 H 107 H 109 H Respiratory Rate 34 H 32 H 30 H Blood Pressure 124/83 121/80 109/75 Pulse Oximetry 95 96 95 05/14/18 04:40 05/14/18 05:00 05/14/18 06:00 Temperature Pulse Rate 104 H 119 H 123 H Respiratory Rate 20 33 H 35 H Blood Pressure 121/79 117/79 Pulse Oximetry 94 L 95 05/14/18 07:00 05/14/18 07:42 05/14/18 07:43 Temperature Pulse Rate 120 H 123 H Respiratory Rate 25 H 20 Blood Pressure 119/78 Pulse Oximetry 97 97 05/14/18 08:00 05/14/18 09:00 05/14/18 10:00 Temperature 100.4 F H Pulse Rate 125 H 129 H 96 H Respiratory Rate 35 H 35 H 33 H Blood Pressure 114/66 119/78 102/59 L Pulse Oximetry 93 L 94 L 95 GENERAL: awake , weak, poor cough effort / on partial NRB mask SKIN: Warm and dry. HEAD: Normocephalic. EYES: No scleral icterus. No injection or drainage. NECK: Supple, trachea midline. No JVD or lymphadenopathy. CARDIOVASCULAR: Regular rate and rhythm without murmurs, gallops, or rubs. RESPIRATORY: coarse bilateral Breath sounds equal bilaterally. No accessory muscle use. chest tube removed GASTROINTESTINAL: Abdomen soft, non-tender, nondistended. MUSCULOSKELETAL: No cyanosis, or edema. BACK: Nontender without obvious deformity. No CVA tenderness. Labs: Laboratory Results - last 12 hr 05/13/18 05/14/18 23:20 05:40 WBC 16.8 H RBC 3.63 L Hgb 10.6 L Hct 32.3 L MCV 88.9 MCH 29.3 MCHC 32.9 RDW 15.3 Plt Count 481 H MPV 7.2 Sodium 138 Potassium 4.0 D Chloride 102 Carbon Dioxide 29.4 Anion Gap 7 BUN 15 Creatinine 0.29 L Estimated GFR Greater than 89 Random Glucose 114 H Calcium 8.5 Magnesium 1.7 Total Bilirubin 0.4 AST 15 ALT 32 Alkaline Phosphatase 82 Total Protein 6.3 L Albumin 1.8 L Result Diagrams: 05/14/18 05:40 05/13/18 23:20 - Plan (1) Bilateral pneumonia (2) Empyema lung Plan: s/p[ right vats chest tube removed f/u CXR in am will see prn (1) Bilateral pneumonia Qualifiers: Pneumonia type: due to unspecified organism Lung location: unspecified part of lung Qualified Code(s): J18.9 - Pneumonia, unspecified organism
--- NOTE | 2018-05-14 13:33 | P.DIET ---
Nutritional Evaluation Type of nutrition evaluation: follow-up Nutrition consult regarding: Diet Evaluation Screening comments: 04/06/18 TF review Objective - Diagnosis respiratory failure, pneumonia, allergic reaction - Objective % IBW: 108 (IBW = 178lb) Body Weight Used for Calculations: Actual (88kg) Energy Needs - Lower Range (kCal/kg): 25 Energy Needs - Upper Range (kCal/kg): 30 Lower Limit kCal/kg (kCals): 2,200 Upper Limit kCal/kg (kCals): 2,640 Lower Limit Protein Factor (Grams per Kg): 1.1 Upper Limit Protein Factor (Grams per Kg): 1.3 Lower Protein Needs (Protein): 97 Upper Protein Needs (Protein): 114 Dietitian Reviewed in Medical Record: Curent medications, Intake & Output, Labs , Medical history Diet Order: NPO, TF'ing Speech Therapy Recommendations: Yes (mech soft, nectar thickened consistent) Objective Comments: PMH: COPD, hx of MRSA, HTN Labs: random glucose 114 Skin: Pressure Ulcer (L & R Buttocks) LBM 05/12/18 05/09/18 extubated 05/11/18 reintubated w/ bronchoscopy 05/12/18 extubated Assessment Assessment: Pt extubated 05/12/18 and TF d/dylon. Pt off sedation and on nonbreather mask now. ST recs reviewed, pt able to tolerate mechanical soft foods w/ nectar thickened liquids. Pt scheduled to receive a cardiac diet but NPO for now d/t acute hypoxia when chest tubes are placed per MD. Continue to monitor NPO status and PO intake when pt is eating. RD will continue to monitor pts nutritional needs for a PO supplement. Labs reveiwed, dietitian following. Brought forward: If pt needs TF'ing: Jevity 1.5 @ 65mL/hr to provide 2340kcal, 100g of protein, and 1186mL of free water to best meet pts nutritional needs. Recommendations: 1. RD to recommend increasing goal rate to Jevity 1.5 @ 65mL/hr to best meet pts nutritional needs 2. Continue to monitor TF tolerance 3. Dietitian following Dietitian to Monitor: Lab values, Glucose level, Intake & Output, Weight change , Medical course Comments: Monitor NPO status
[2018-05-14] MEDS: Morphine Inj 4 MG/ML Vial IV.PUSH PRN (15:51)
--- NOTE | 2018-05-14 18:42 | P.PNPL ---
Subjective Interval history: 72 YOWM with MRSA Pn, cavitary lesion, COPD, Lt ptx mild sob On PRB Was Out of bed for 4 hrs Chest tube removed Physical Exam Vital signs: Vital Signs 05/13/18 19:00 05/13/18 20:00 05/13/18 20:37 Temperature 99 F Pulse Rate 127 H 109 H 100 H Respiratory Rate 35 H 39 H 36 H Blood Pressure 104/73 109/80 Pulse Oximetry 94 L 96 05/13/18 20:51 05/13/18 20:58 05/13/18 21:00 Temperature Pulse Rate 100 H 97 H Respiratory Rate 40 H 36 H Blood Pressure 122/83 Pulse Oximetry 94 L 93 L 05/13/18 22:00 05/13/18 23:00 05/14/18 00:00 Temperature 98.8 F Pulse Rate 101 H 100 H 107 H Respiratory Rate 36 H 34 H 36 H Blood Pressure 124/81 109/75 126/82 Pulse Oximetry 94 L 94 L 90 L 05/14/18 00:02 05/14/18 00:36 05/14/18 01:00 Temperature Pulse Rate 106 H 104 H Respiratory Rate 33 H 35 H Blood Pressure 126/82 126/78 Pulse Oximetry 93 L 93 L 96 05/14/18 02:00 05/14/18 03:00 05/14/18 04:00 Temperature 99.0 F Pulse Rate 107 H 107 H 109 H Respiratory Rate 34 H 32 H 30 H Blood Pressure 124/83 121/80 109/75 Pulse Oximetry 95 96 95 05/14/18 04:40 05/14/18 05:00 05/14/18 06:00 Temperature Pulse Rate 104 H 119 H 123 H Respiratory Rate 20 33 H 35 H Blood Pressure 121/79 117/79 Pulse Oximetry 94 L 95 05/14/18 07:00 05/14/18 07:42 05/14/18 07:43 Temperature Pulse Rate 120 H 123 H Respiratory Rate 25 H 20 Blood Pressure 119/78 Pulse Oximetry 97 97 05/14/18 08:00 05/14/18 09:00 05/14/18 10:00 Temperature 100.4 F H Pulse Rate 125 H 129 H 96 H Respiratory Rate 35 H 35 H 33 H Blood Pressure 114/66 119/78 102/59 L Pulse Oximetry 93 L 94 L 95 05/14/18 11:00 05/14/18 12:00 02/14/19 12:07 Temperature 99.0 F Pulse Rate 96 H 104 H 101 H Respiratory Rate 32 H 32 H 25 H Blood Pressure 124/77 136/75 Pulse Oximetry 92 L 91 L 05/14/18 13:00 05/14/18 14:00 05/14/18 15:00 Temperature Pulse Rate 110 H 110 H 117 H Respiratory Rate 34 H 41 H 51 H Blood Pressure 96/69 L 102/70 Pulse Oximetry 91 L 94 L 98 05/14/18 15:01 05/14/18 15:55 05/14/18 16:00 Temperature 99.4 F Pulse Rate 117 H 109 H 109 H Respiratory Rate 55 H 18 33 H Blood Pressure 115/82 98/61 L Pulse Oximetry 93 L 93 L 05/14/18 17:00 05/14/18 18:00 Temperature Pulse Rate 111 H 109 H Respiratory Rate 31 H 20 Blood Pressure 105/71 111/73 Pulse Oximetry 94 L 95 Intake & Output 05/13/18 05/14/18 05/14/18 18:59 06:59 18:59 Intake Total 620 / 620 608 / 608 358 / 358 Output Total 510 / 510 400 / 400 250 / 250 Balance 110 / 110 208 / 208 108 / 108 Weight 71.5 kg Intake: IV 600 / 600 588 / 588 258 / 258 Teflaro Inj 600 MG In NS Inj 200 / 200 100 / 100 100 / 100 100 ML @ 100 mls/hr IV.SIG Q8H [facility] Rx#:[id number] Cleocin 900 mg/NS Premix 900 mg 100 / 100 50 / 50 50 / 50 In 50 ml @ 100 mls/hr IV.SIG Q8H [facility] Rx#:[id number] Magnesium Sulfate Inj 4 GM In 108 / 108 D5W Inj 100 ML @ 25 mls/hr IV. SIG ONCE ONE Rx#:[id number] KCl 20 mEq Premix Inj 20 meq In 300 / 300 100 / 100 100 ml @ 50 mls/hr IV.SIG Q2H PRN Rx#:[id number] NS Inj 1,000 ML @ 50 mls/hr IV. 338 / 338 SIG .Q20H [facility] Rx#:[id number] Oral 20 / 20 20 / 20 100 / 100 Output: Urine 250 / 250 Urine Amount (Catheter) 500 / 500 400 / 400 Condom 500 / 500 400 / 400 Chest Tube Drainage 10 / 10 Right Anterior Y Connected Other: # Voids 3 # Incontinent Voids 1 Date of Last Bowel Movement 05/12/18 05/12/18 # Bowel Movements 0 0 GENERAL: Elderly WM mild sob SKIN: Warm and dry. HEAD: Normocephalic. EYES: No scleral icterus. No injection or drainage. NECK: Supple, trachea midline. No JVD or lymphadenopathy. CARDIOVASCULAR: Regular rate and rhythm without murmurs, gallops, or rubs. RESPIRATORY: Breath sounds equal bilaterally. No accessory muscle use. Decreased BS right chest GASTROINTESTINAL: Abdomen soft, non-tender, nondistended. MUSCULOSKELETAL: No cyanosis, or edema. BACK: Nontender without obvious deformity. No CVA tenderness. - Urinary Catheter Management Indwelling Urethral Catheter Cath placed during this visit: yes, but has since been removed by the nurse Reason for continuing: Acute urinary retention Insertion date: 04/05/18 Insertion time: 23:00 Removal date: 04/12/18 Removal time: 08:30 Condom Cath placed during this visit: no Reason for continuing: Acute urinary retention Straight Cath placed during this visit: yes, but has since been removed by the nurse Reason for continuing: Not indwelling catheter Insertion date: 05/06/18 Insertion time: 18:00 Removal date: 05/06/18 Removal time: 18:10 Indwelling Temp Sensing Catheter Cath placed during this visit: yes, but has since been removed by the nurse Reason for continuing: Hourly intake/output Insertion date: 05/05/18 Insertion time: 12:15 Removal date: 05/05/18 Removal time: 15:00 Assessment and Plan - Plan IMPRESSION: 1. MRSA pneumonia. 2. Cavitary pneumonia. 4. Chronic obstructive pulmonary disease. 5. Hypotension. 6. Left pneumothorax, status post chest tube.removal 7. Nicotine use. 8. Right Ptx 9. VDRF PLAN: Cont Abx per ID Aerosol nebs Supplement 02 with NRB CPAP prn CT chest in AM GUERLINE RN at
[2018-05-15] MEDS: Oral Hygiene Kit OROPHARYNG SCH ×4 (00:17→17:18)
[2018-05-15] MEDS: Clindamycin 900 mg/NS Premix 900 MG/50 ML PIGGYBACK IV.SIG SCH ×3 (01:22→18:19)
[2018-05-15] MEDS: RESP: Acetylcysteine 10% 4 ML Neb NEB SCH (03:27)
[2018-05-15 04:22] LABS: Baso # (Auto) 0.2 th/mm3 (0.0-0.2); Baso % (Auto) 1.2 % (0.0-2.0); Eos # (Auto) 0.3 th/mm3 (0.0-0.4); Eos % (Auto) 2.1 % (0.0-4.0); Hematocrit 29.2 % (39.0-51.0); Hemoglobin 9.5 gm/dL (13.0-17.0); Lymph # (Auto) 0.8 th/mm3 (1.0-4.8); Lymph % (Auto) 5.4 % (9.0-44.0); Mean Corpuscular HGB Conc 32.4 % (32.0-36.0); Mean Corpuscular Volume 89.4 fL (80.0-100.0); Mean Platelet Volume 7.9 fL (7.0-11.0); Mono # (Auto) 1.3 th/mm3 (0.0-0.9); Mono % (Auto) 8.6 % (0.0-8.0); Neut # (Auto) 12.4 th/mm3 (1.8-7.7); Neut % (Auto) 82.7 % (16.0-70.0); Platelet Count 436 th/mm3 (150-450); Red Blood Count 3.27 mil/mm3 (4.50-5.90); Red Cell Distribution Width 15.6 % (11.6-17.2); White Blood Count 15.1 th/mm3 (4.0-11.0)
[2018-05-15 04:55] LABS: Alanine Aminotransferase 22 U/L (12-78); Albumin 1.6 g/dL (3.4-5.0); Alkaline Phosphatase 76 U/L (45-117); Anion Gap 3 meq/L (5-15); Aspartate Aminotransferase 18 U/L (15-37); Blood Urea Nitrogen 14 mg/dL (7-18); Calcium 8.4 mg/dL (8.5-10.1); Carbon Dioxide 36.8 meq/L (21.0-32.0); Chloride 101 meq/L (98-107); Glomerular Filtration Rate Greater Than 89 mL/min (>89); Glucose,Random 98 mg/dL (74-106); Magnesium 1.9 mg/dL (1.5-2.5); Phosphorus 1.8 mg/dL (2.5-4.9); Potassium 3.3 meq/L (3.5-5.1); Sodium 141 meq/L (136-145); Total Protein 5.6 g/dL (6.4-8.2)
--- NOTE | 2018-05-15 06:15 | XR ---
EXAM DATE: 05/15/2018 6:08 AM EST AGE/SEX: 72 years / Male INDICATIONS: Shortness of breath. CLINICAL DATA: This is the patient's subsequent encounter. Patient reports that signs and symptoms h ave been present for 1 month and indicates a pain score of Nonresponsive. MEDICAL/SURGICAL HISTORY: . Hypertension. Chronic obstructive pulmonary disease. MRSA. . Chest tubes. COMPARISON: [facility] [place], CHEST 1V SINGLE AP, 05/14/2018. . FINDINGS: Interval right thoracostomy tube removal. Improved right lung aeration. Diffuse coarse interstitial p rominence in the left lung. Cardiac contours grossly satisfactory accounting for rotation. CONCLUSION: Thoracostomy tube removal with continued improvement in aeration. Electronically signed by: Akash Capone MD Board Certified Radiologist 05/15/2018 6:13 AM EST
[2018-05-15] MEDS ORDERED: Potassium Phosphate Inj 30 MMOL in Sodium Chlor 0.9% Inj 250 ML IV.SIG ONE (07:00)
--- NOTE | 2018-05-15 07:02 | P.PNCC ---
Subjective Subjective Remarks/Hospital Course: Patient is 72-year-old male with past medical history of COPD, tobacco abuse and hypertension who came to the emergency room for shortness of breath via EMS. On EMS arrival saturation was in the 90s, but patient had significant shortness of breath and dyspnea. Patient received Solu-Medrol 125 mg IV and breathing treatments by EMS and was brought to the emergency department. In the emergency department patient received further breathing treatments and chest x-ray showed patchy infiltrate on bilateral lung fitzgerald. Initially maintaining oxygen saturation with nasal cannula. Initial blood pressure was 85 /65, improved with normal saline boluses. WBC count was 17.1. Patient was deemed septic from pneumonia and patient was ordered to receive vancomycin and Zosyn. While receiving vancomycin patient acutely decompensated became extremely short of breath and developed erythematous maculopapular rash involving face torso armpits and groin region. Emergently intubated and placed on mechanical ventilation by the ED physician. Received IV 50 mg Benadryl. Critical care medicine was requested to admit the patient. I evaluated the patient immediately in the emergency department. Patient is intubated on Versed and fentanyl infusion however he is very asynchronous with the vent triggering ventilator alarms. Severe bilateral expiratory wheezing heard on auscultation. He has extensive skin rash predominantly face forehead torso armpit and groins. Appears like patient had anaphylactic reaction to vancomycin complicated by COPD exacerbation and pneumonia. I have ordered additional Solu-Medrol 100 mg x1 scheduled Benadryl and famotidine, antibiotics with cefepime and Levaquin. Increase Versed infusion, add propofol and use neuromuscular paralysis as needed. Will request pharmacy to add vancomycin to allergy. ED physician Dr. Slater had noticed that patient had some swelling on the left side of his face on arrival, however the skin rash after vancomycin was started was new. Patient remains hypotensive has received 2 L of normal saline in the emergency department and no significant urine output. I have ordered additional 2 L normal saline bolus and maintenance fluid at 84 mL/h. Use Levophed as needed to keep map above 65 Subjective 04/06: Off norepinephrine drip. Currently resting in bed in no acute distress on midazolam and fentanyl drips. Start tube feeding today. 04/07: Remains sedated, intubated on mechanical ventilation. Blood cultures growing MRSA 04/08: remains sedated and intubated. repeat cultures still growing MRSA 2/4 cultures. likely need to repeat BCx either today or tomorrow. agree with narrowing spectrum abx. performed DEEDEE at ID recommendation (need to r/o endocarditis), but no evidence of vegetations. remains hypoxic. off vasopressors today. 04/09: adequate auto-diuresis overnight. off vasopressors. on sedation vacation. hypoxia improving. 04/10 Patient remains intubated and sedated with Fentanyl infusion. Became tachycardic and tachypneic overnight requiring increase sedation. Afebrile. 04/11 Patient is intubated and sedated. Afebrile. 04/12 Patient remains intubated and sedated with Diprivan and Fentanyl infusion, Afebrile. 04/13: Sedated, easily arousable, orally intubated on mechanical ventilation. 04/14 Patient was extubated yesterday. Afebrile. 04/15 Patient is lying in bed in NAD. On 3L oxygen. Awake and alert. 04/16 Patient is on partial rebreather. Afebrile. Awake and alert. 04/17: Left-sided chest tube placed for pneumothorax yesterday. On nasal cannula currently. Awake and alert. Appears comfortable. No air leak noted in Pleur-evac 04/18: Remains on nasal cannula. No air leak noted from left-sided chest tube. 04/19: On 5 L nasal cannula. Chest tube in place, no air leak noted. Resting in bed comfortably, no acute distress. Continues to have productive cough. 04/20: Remains on nasal cannula. Chest tube in place, no air leak noted. Resting in bed comfortably. 04/24: RECONSULT NOTE: called emergently by Hospitalist team. patient with new acute respiratory distress. Chest x-ray demonstrates new large right-sided pneumothorax. I went to evaluate the patient is seen in significant distress. I emergently placed right-sided pigtail chest tube. Significant denney of air with no air leak on chest tube. Respiratory distress improved after chest tube placement. Repeat interval chest x-ray demonstrates good placement of chest tube with resolution of pneumothorax. 04/26/18: RECONSULT NOTE: [facility] reconsulted for rexpansion of right pneumothorax. Patient developed increased SOB today without improvement with nebulizer. STAT CXR Moderate to large right pneumothorax has redeveloped and with a probable tension component. He appears to be in moderate distress tachypneic. Patient was moved to the ICU where I evaluated the patient emergently. The right pigtail chest tube is still in place, minimal air leak. I flushed the chest tube but was difficult to withdraw air. I then pulled back the chest tube by approximately 3 cm. Able to withdraw air more easily and on connection to the Vacutainer again there was significant air leak in all chambers. Patient subjectively felt improvement in shortness of breath after chest tube placement. Stat repeat chest x-ray shows near complete reexpansion of the right knee 04/30/18: [facility] RECONSULT NOTE: Critical care, reconsult for worsening respiratory failure. I evaluate the patient urgently. He is very tachypneic diaphoretic. Chest x-ray today showed possible right upper lobe pneumothorax and increasing right effusion. I did an emergent bedside ultrasound which shows probably loculated complicated right pleural effusion. Patient likely needs more further imaging and procedures and in very labored breathing. Proceeded with endotracheal intubation in place patient on mechanical ventilation. I explained plan of care prior to intubation. He understands that he may need emergency chest tube placement and also may need surgical intervention 05/01/18: Patient remains intubated sedated. Hypotensive on 75 mcg/min of Beau- Synephrine. While sedated. CT chest showed severe right lower lung consolidation large pneumothorax/hydropneumothorax on the right side. Plan for large bore chest tube and central line today. Also cardiothoracic surgery was consulted, and I discussed with Dr. Schaeffer. I will plan for a large bore chest tube to the right side followed by a central line placement. 05/02/18: Patient remains intubated heavily sedated for vent synchrony. Right chest tube with large air leak in all chambers. There is possibility of bronchopleural fistula. Chest x-ray shows improved air entry right lung. Discussed with cardiothoracic surgery Dr. Ontiveros today. Will repeat CT scan to see if lung is reexpanding. May need decortication procedure 05/03/18: Patient remains intubated sedated persistent large air leak. CT reviewed with cardiothoracic surgery Dr. Ontiveros. Will discuss with Dr. Schaeffer in a.m. Probably will benefit from decortication due to the hydropneumothorax and persistent pleural effusions which probably are empyema. Otherwise patient remains critically ill clinically same. [facility] cultures growing staph aureus still 05/04/18: Patient remains sedated critically ill. Chest x-ray shows mostly expanded right lung but with persistent loculated apical pneumothorax and right lower effusion. Plan for surgical intervention by Dr. Schaeffer 05/05/2018 possible decortication. Continue broad-spectrum antibiotics 05/05: Remains sedated, orally intubated on mechanical ventilation. Awaiting OR today for decortication and drainage of loculated effusion and possible repair of air leak site. 05/06: Remains sedated, orally intubated on mechanical ventilation. Status post right VATS with decortication on 05/05. [address] on the right with positive air leak. Subcutaneous emphysema decreasing. 05/07: Remains sedated, orally intubated on mechanical ventilation. Status post right VATS with decortication on 05/05. [address] on the right with positive air leak. Starting tube feeds and CPAP trials 05/08: Remains sedated, orally intubated on mechanical ventilation. Air leak persists from right-sided chest tube 05/09: Sedated, arousable, orally intubated on mechanical ventilation. 1+ air leak from right-sided chest tube noted. On CPAP trial. 05/10: Extubated yesterday. Slightly tachypneic. On nonrebreather facemask this morning. Air leak absent from right chest tube. 05/11: Patient on facemask O2. No air leak noted in right-sided chest tubes this morning. Chest x-ray reveals complete whiteout over right lung field raising concern for mucous plugging. Plan for intubation followed by bronchoscopy and BAL and then attempt to extubate patient. 05/12: Patient underwent intubation followed by bronchoscopy and BAL for right mucous plugging on 05/11 with significant mucus plugging noted which was suctioned out with BAL. Patient was subsequently extubated. Chest x-ray following bronchoscopy showed reexpansion of right lung with no pneumothorax and no air leak from chest tube. This morning patient is resting comfortably on 5 L nasal cannula and denies any shortness of breath. No air leak noted from chest tube. 05/13: Remains on nasal cannula maintaining oxygen saturation. Appears deconditioned. Chest x-ray shows improving aeration. Will get physical therapy to mobilize patient out of bed daily. Anterior chest tube to be removed by CT surgery today 05/14: Afebrile. Currently on nonrebreather mask. Aggressive pulmonary toilet initiated. Currently n.p.o. Subjective 05/15: Afebrile. Remains on nonrebreather mask but takes off intermittently. Plan for CT thorax exam. Replace potassium and phosphate this a.m. Appears comfortable lying in bed in no acute distress. Objective Vital Signs / I&O: Vital Signs 05/14/18 07:00 05/14/18 07:42 05/14/18 07:43 Temperature Pulse Rate 120 H 123 H Respiratory Rate 25 H 20 Blood Pressure 119/78 Pulse Oximetry 97 97 05/14/18 08:00 05/14/18 09:00 05/14/18 10:00 Temperature 100.4 F H Pulse Rate 125 H 129 H 96 H Respiratory Rate 35 H 35 H 33 H Blood Pressure 114/66 119/78 102/59 L Pulse Oximetry 93 L 94 L 95 05/14/18 11:00 05/14/18 12:00 05/14/18 12:07 Temperature 99.0 F Pulse Rate 96 H 104 H 101 H Respiratory Rate 32 H 32 H 25 H Blood Pressure 124/77 136/75 Pulse Oximetry 92 L 91 L 05/14/18 13:00 05/14/18 14:00 05/14/18 15:00 Temperature Pulse Rate 110 H 110 H 117 H Respiratory Rate 34 H 41 H 51 H Blood Pressure 96/69 L 102/70 Pulse Oximetry 91 L 94 L 98 05/14/18 15:01 05/14/18 15:55 05/14/18 16:00 Temperature 99.4 F Pulse Rate 117 H 109 H 109 H Respiratory Rate 55 H 18 33 H Blood Pressure 115/82 98/61 L Pulse Oximetry 93 L 93 L 05/14/18 17:00 05/14/18 18:00 05/14/18 19:00 Temperature Pulse Rate 111 H 109 H 112 H Respiratory Rate 31 H 20 29 H Blood Pressure 105/71 111/73 107/72 Pulse Oximetry 94 L 95 95 05/14/18 19:48 05/14/18 19:53 05/14/18 19:59 Temperature Pulse Rate 124 H 114 H Respiratory Rate 22 20 Blood Pressure Pulse Oximetry 94 L 97 05/14/18 20:00 05/14/18 21:00 05/14/18 21:30 Temperature 97.6 F Pulse Rate 117 H 115 H Respiratory Rate 28 H 18 Blood Pressure 119/68 108/70 Pulse Oximetry 94 L 99 96 05/14/18 21:52 05/14/18 22:00 05/14/18 23:00 Temperature Pulse Rate 103 H 104 H 84 Respiratory Rate 26 H 23 Blood Pressure 100/70 88/61 L Pulse Oximetry 99 92 L 05/15/18 00:00 05/15/18 00:02 05/15/18 01:00 Temperature 98.6 F Pulse Rate 89 84 92 H Respiratory Rate 24 18 30 H Blood Pressure 116/77 117/75 Pulse Oximetry 96 95 05/15/18 02:00 05/15/18 03:00 05/15/18 03:27 Temperature Pulse Rate 87 88 87 Respiratory Rate 23 23 18 Blood Pressure 94/66 L 99/64 L Pulse Oximetry 90 L 91 L 05/15/18 04:00 05/15/18 06:00 Temperature Pulse Rate 92 H 97 H Respiratory Rate 24 Blood Pressure 105/69 Pulse Oximetry 91 L Intake & Output 05/14/18 05/14/18 05/15/18 06:59 18:59 06:59 Intake Total 608 / 608 358 / 358 1320 / 1320 Output Total 400 / 400 250 / 250 425 / 425 Balance 208 / 208 108 / 108 895 / 895 Weight 71.5 kg 71.2 kg Intake: IV 588 / 588 258 / 258 1300 / 1300 1/2 Normal Saline Inj 1,000 ML 1000 / 1000 @ 42 mls/hr IV.CONT .[id number] [facility] Rx#:[id number] Teflaro Inj 600 MG In NS Inj 100 / 100 100 / 100 200 / 200 100 ML @ 100 mls/hr IV.SIG Q8H [facility] Rx#:[id number] Cleocin 900 mg/NS Premix 900 mg 50 / 50 50 / 50 100 / 100 In 50 ml @ 100 mls/hr IV.SIG Q8H [facility] Rx#:[id number] Magnesium Sulfate Inj 4 GM In 108 / 108 D5W Inj 100 ML @ 25 mls/hr IV. SIG ONCE ONE Rx#:[id number] KCl 20 mEq Premix Inj 20 meq In 100 / 100 100 ml @ 50 mls/hr IV.SIG Q2H PRN Rx#:[id number] NS Inj 1,000 ML @ 50 mls/hr IV. 338 / 338 SIG .Q20H [facility] Rx#:[id number] Oral 20 100 / 100 Output: Urine 250 / 250 Urine Amount (Catheter) 400 / 400 425 / 425 Condom 400 / 400 425 / 425 Other: # Voids 3 # Incontinent Voids 1 Date of Last Bowel Movement 05/12/18 05/12/18 05/12/18 # Bowel Movements 0 0 Result Diagrams: 05/15/18 03:35 05/15/18 03:35 Other Results: Microbiology 05/05/18 12:10 Tissue - Other Acid Fast Bacilli Smear - Final No acid fast bacilli seen 05/05/18 12:10 Tissue - Other Mycobacterial Culture - Preliminary No growth in 1 week 05/05/18 12:10 Tissue - Other Fungal Smear - Final No fungal elements seen 05/05/18 12:10 Tissue - Other Fungal Culture - Preliminary No growth in 1 week 05/05/18 12:50 Fluid - Pleural fluid Fungal Smear - Final No fungal elements seen 05/05/18 12:50 Fluid - Pleural fluid Fungal Culture - Preliminary No growth in 1 week 05/05/18 12:50 Fluid - Pleural fluid Acid Fast Bacilli Smear - Final No acid fast bacilli seen 05/05/18 12:50 Fluid - Pleural fluid Mycobacterial Culture - Preliminary No growth in 1 week 05/05/18 12:10 Tissue - Other Fungal Smear - Final No fungal elements seen 05/05/18 12:10 Tissue - Other Fungal Culture - Preliminary No growth in 1 week 05/05/18 12:10 Tissue - Other Acid Fast Bacilli Smear - Final No acid fast bacilli seen 05/05/18 12:10 Tissue - Other Mycobacterial Culture - Preliminary No growth in 1 week 05/01/18 11:00 Bronchial Washings - Right Acid Fast Bacilli Smear - Final No acid fast bacilli seen 05/01/18 11:00 Bronchial Washings - Right Mycobacterial Culture - Preliminary No growth in 1 week 05/05/18 12:10 Tissue - Other Gram Stain - Final 05/05/18 12:10 Tissue - Other Wound Culture - Final No growth in 72 hours (aerobically and anaerobically ) 05/05/18 12:50 Fluid - Pleural fluid Gram Stain - Final 05/05/18 12:50 Fluid - Pleural fluid Body Fluid Culture - Final No growth in 72 hours (aerobically and anaerobically ) 05/05/18 12:10 Tissue - Other Gram Stain - Final 05/05/18 12:10 Tissue - Other Wound Culture - Final S. aureus MRSA 05/01/18 11:00 Bronchial - Right Gram Stain - Final 05/01/18 11:00 Bronchial - Right Bronchial Culture - Final S. aureus MRSA 05/01/18 11:00 Bronchial Washings - Right Fungal Smear - Final No fungal elements seen 05/01/18 11:00 Bronchial Washings - Right Fungal Culture - Preliminary 04/28/18 05:35 Sputum - Expectorated Sputum Gram Stain - Final 04/28/18 05:35 Sputum - Expectorated Sputum Sputum Culture - Final S. aureus MRSA 04/16/18 04:39 Blood - Peripheral Aerobic Blood Culture - Final No growth in 5 days 04/16/18 04:39 Blood - Peripheral Anaerobic Blood Culture - Final No growth in 5 days 04/16/18 04:27 Blood - Peripheral Aerobic Blood Culture - Final No growth in 5 days 04/16/18 04:27 Blood - Peripheral Anaerobic Blood Culture - Final No growth in 5 days 04/12/18 13:55 Blood - Peripheral Aerobic Blood Culture - Final No growth in 5 days 04/12/18 13:55 Blood - Peripheral Anaerobic Blood Culture - Final No growth in 5 days 04/12/18 13:47 Blood - Peripheral Aerobic Blood Culture - Final No growth in 5 days 04/12/18 13:47 Blood - Peripheral Anaerobic Blood Culture - Final No growth in 5 days 04/10/18 11:42 Blood - Peripheral Aerobic Blood Culture - Final No growth in 5 days 04/10/18 11:42 Blood - Peripheral Anaerobic Blood Culture - Final S. aureus MRSA 04/09/18 08:47 Blood - Peripheral Aerobic Blood Culture - Final No growth in 5 days 04/09/18 08:47 Blood - Peripheral Anaerobic Blood Culture - Final S. aureus MRSA 04/09/18 08:45 Blood - Peripheral Aerobic Blood Culture - Final S. aureus MRSA 04/09/18 08:45 Blood - Peripheral Anaerobic Blood Culture - Final S. aureus MRSA 04/10/18 11:35 Blood - Peripheral Aerobic Blood Culture - Final S. aureus MRSA 04/10/18 11:35 Blood - Peripheral Anaerobic Blood Culture - Final S. aureus MRSA 04/10/18 09:30 Sputum - Endotracheal Gram Stain - Final 04/10/18 09:30 Sputum - Endotracheal Sputum Culture - Final S. aureus MRSA 04/07/18 07:25 Blood - Peripheral Aerobic Blood Culture - Final S. aureus MRSA 04/07/18 07:25 Blood - Peripheral Anaerobic Blood Culture - Final S. aureus MRSA 04/07/18 07:34 Blood - Peripheral Aerobic Blood Culture - Final S. aureus MRSA 04/07/18 07:34 Blood - Peripheral Anaerobic Blood Culture - Final S. aureus MRSA 04/06/18 04:30 Sputum - Endotracheal Gram Stain - Final 04/06/18 04:30 Sputum - Endotracheal Sputum Culture - Final S. aureus MRSA 04/05/18 21:30 Blood - Peripheral Aerobic Blood Culture - Final S. aureus MRSA 04/05/18 21:30 Blood - Peripheral Anaerobic Blood Culture - Final S. aureus MRSA 04/05/18 21:40 Blood - Peripheral Aerobic Blood Culture - Final S. aureus MRSA 04/05/18 21:40 Blood - Peripheral Anaerobic Blood Culture - Final S. aureus MRSA 04/05/18 00:45 Clean Catch Urine Urine Culture - Final No growth in 48 hours 04/05/18 21:55 Nasal Wash Influenza Types A,B Antigen - Final Negative for FLU A and B antigen Infection due to influenza A or B cannot be ruled out since the antigen present in the sample may be below the detection limit of the test. Imaging: Chest X-Ray 04/05/18 21:24 CONCLUSION: Multifocal bilateral pulmonary opacity suspicious for multifocal consolidation. Recommend radiographic follow-up to resolution. Chest X-Ray 04/05/18 22:49 CONCLUSION: Interval intubation. Unchanged bilateral pulmonary consolidations. Chest CT 04/06/18 00:00 CONCLUSION: 1. Patchy bilateral areas of consolidation most likely infectious in etiology. 2. 1.5 cm left lower lobe pulmonary nodule. Close follow-up of this nodule is suggested. Consideration could be made to an outpatient PET CT to further assess. 3. Coronary artery atherosclerotic calcifications. Face CT 04/06/18 00:00 CONCLUSION: 1. Small focal area of soft tissue swelling involving the lateral orbital margin on the left. No abscess. Chest X-Ray 04/07/18 06:00 CONCLUSION: Unchanged bilateral pulmonary infiltrates and tiny left effusion. Abdomen/Pelvis CT 04/10/18 00:00 CONCLUSION: 1. Findings in the patient's chest discussed on the patient's chest CT. 2. Left renal stone without hydronephrosis. 3. Slight AAA. 4. Possible gallstones within the gallbladder. 5. There is slight fluid within the peritoneal cavity in the pelvis and within left perinephric space and stranding densities involving the Gerota's fascia on the left side. The exact etiology is not certain could be inflammatory, and there is no hydronephrosis. Chest CT 04/10/18 00:00 CONCLUSION: 1. Significant worsening of the patient's lungs with interval development of numerous nodules multiple cavitary lesions which demonstrate air-fluid levels within them characteristic of a very aggressive infectious process destroying the patient's lungs could be seen with necrotizing MRSA, however the appearance is nonspecific. Chest X-Ray 04/10/18 08:03 CONCLUSION: Slight interval worsening right basilar consolidation and persistent stable right upper lobe and left basilar consolidations. Head MRI 04/12/18 00:00 CONCLUSION: 1. Some chronic changes with mild cortical and central atrophy. Minimal periventricular and scattered deep white matter tract areas of small vessel ischemic demyelination. 2. Some fluid or secretions identified in the dependent portion of the nasopharynx. 3. Otherwise negative. No findings of intracranial mass lesion/abscess. Lumbar Spine MRI 04/12/18 00:00 CONCLUSION: 1. No evidence of epidural abscess. 2. Grade 1 anterolisthesis at L5-S1 with associated discogenic degenerative changes and bilateral pars defects. There is significant bilateral bony neural foraminal stenosis with bilateral neural impingement. 3. Asymmetric ligamentum flavum hypertrophy on the right side at the L4-5 level flattens the dorsal lateral aspect of the thecal sac. Neural foramen remain patent. 4. Suggestion of distended urinary bladder, incompletely imaged in the field-of -view. Thoracic Spine MRI 04/12/18 00:00 CONCLUSION: 1. Small bilateral pleural effusions. 2. Spinal canal is widely patent throughout without cord compromise. No findings of a paravertebral abscess. Abdomen X-Ray 04/12/18 09:42 CONCLUSION: No evidence of ileus. Chest X-Ray 04/13/18 00:00 CONCLUSION: 1. No significant interval change. 2. Stable ETT and NGT. 3. Stable right upper lobe airspace consolidation. 4. Stable bilateral lower lobe patchy airspace disease. Gallium Scan Nuclear Medicine 04/13/18 00:00 CONCLUSION: 1. There is abnormal uptake in the lungs corresponding to cavitary lesions probably lung abscesses and areas of consolidation seen on the patient's prior chest CT. Chest X-Ray 04/15/18 08:47 CONCLUSION: 1. Bilateral airspace disease with consolidation/fibrosis in the right upper lung, cavitary lesion in the left upper lobe and bibasilar airspace disease, left worse than right. There is actually some improving aeration in the right lung base. 2. Questionable pleural reflection in the left upper lobe. Cannot exclude a small pneumothorax. Repeat chest radiograph in expiration for reevaluation. 3. Interval removal of life-support tubes including the endotracheal and nasogastric tubes. Chest X-Ray 04/16/18 09:11 CONCLUSION: Stable chest appearance with bilateral infiltrates and small suspected left apical pneumothorax Chest CT 04/16/18 10:15 CONCLUSION: 1. A 23 mm left sided pneumothorax is identified. 2. Multiple cavitary lesions are again noted and slightly worse in appearance than on the previous examination. 3. Consolidation of the right upper lobe is again noted and [demonstrates] worsening cavitation. 4. Increased cavitation of the large left upper lobe lesion also. 5. Small partially loculated pleural effusions are noted. 6. Bibasilar alveolar consolidations are noted posteriorly consistent with probable atelectasis. 7. Tiny pericardial effusion is noted. 8. Degenerative changes are noted throughout the thoracic and upper lumbar spine. Chest X-Ray 04/16/18 13:47 CONCLUSION: 1. Tiny 6 mm left apical pneumothorax is still noted status post left chest tube placement. 2. Stable scattered cavitary lesions. 3. Small bilateral pleural effusions. Chest X-Ray 04/17/18 07:00 CONCLUSION: 1. Very small left apical pneumothorax, slightly decreased from the prior study. 2. Left-sided chest tube remains in place. 3. No change in bilateral pulmonary opacities. Chest X-Ray 04/20/18 00:00 CONCLUSION: 1. Persistent and unchanged bilateral pulmonary consolidations. 2. No pneumothorax. Chest X-Ray 04/22/18 07:00 CONCLUSION: No significant change compared to 04/20/2018. Chest X-Ray 04/24/18 00:00 CONCLUSION: 1. Moderate to large right-sided pneumothorax. Chest X-Ray 04/24/18 00:00 CONCLUSION: Right-sided chest tube in good position. No significant residual pneumothorax is identified. Elongated infiltrate right upper lobe is unchanged Chest X-Ray 04/24/18 07:01 CONCLUSION: Elongated density in the right lung apex. Left chest tube in stable position. Chest X-Ray 04/24/18 11:47 CONCLUSION: 1. Tiny left apical pneumothorax following left chest tube removal. 2. Bilateral cavitary lesions and airspace opacities are stable. Chest X-Ray 04/26/18 00:00 CONCLUSION: Moderate to large right pleural effusion has redeveloped and with a probable slight tension component. Small-caliber right chest tube remains in place. Chest X-Ray 04/26/18 16:57 CONCLUSION: Reexpansion of the right lung with no evidence of residual pneumothorax. Chest X-Ray 04/27/18 06:00 CONCLUSION: Right chest tube remains in place with small residual right pneumothorax and bilateral patchy airspace disease. Chest X-Ray 04/28/18 07:00 CONCLUSION: Small-caliber right chest tube as above with probable small right basilar pneumothorax, stable. Stable bilateral airspace disease. Chest X-Ray 04/29/18 00:00 CONCLUSION: Suspected development of areas of pneumothorax of the right upper lung despite a right chest tube. Suspected area of scarring over the right upper lung. Increased density at the mid and lower right chest related to consolidation, atelectasis and/or effusion. There may be some subpulmonic air seen on the right side. Left base atelectasis or consolidation with a possible minimal left pleural effusion. This information will be relayed to the floor. Chest X-Ray 04/30/18 07:00 CONCLUSION: Small-caliber right chest tube with probable loculated right pneumothorax. Right pleural effusion. Findings are similar to April 29. Chest CT 04/30/18 15:36 CONCLUSION: 1. Right-sided pigtail catheter identified in the right mid chest with a very large right-sided pneumothorax remaining. There is extensive consolidation throughout the only aerated portions of the right lung with debris in the right bronchus and bronchus intermedius. Bronchoscopy would be helpful to better evaluate the bronchial contents. 2. There is multiloculated fluid collections in the right lower lobe and the right inferior lateral costophrenic angle could be multiloculated infection. 3. Small pleural effusion and some pleural thickening of the left chest. Chest X-Ray 04/30/18 15:46 CONCLUSION: ET tube has been placed in excellent position between the clavicles and the haseeb. Extensive fluid and air throughout the right thoracic cavity. Right- sided pigtail catheter of the mid chest in good position Chest X-Ray 05/01/18 06:00 CONCLUSION: 1. Prominent right-sided pneumothorax with small caliber chest tube. 2. Pleural-parenchymal densities throughout the right lung. 3. Patchy densities in the left lung. Chest X-Ray 05/01/18 09:52 CONCLUSION: Interval resolution of a loculated right pneumothorax along the lateral chest wall following chest tube placement. Persistent moderate-sized loculated pneumothorax in the right paramediastinal region of the upper lung field. Chest CT 05/02/18 00:00 CONCLUSION: 1. Overall improving exam with improved aeration of the right hemithorax. Persistent areas of loculated pleural effusion. These demonstrate foci of air within the right lower lobe and are concerning for abscess. Airspace abnormalities within the left hemithorax appears stable to smaller in size from prior exam. Chest X-Ray 05/02/18 06:00 CONCLUSION: Right chest tube. A pneumothorax is not clearly seen on this examination. Increased density in the right hilar region extending into the right upper lobe. Central mass could have this appearance. Suspected consolidation and/or atelectasis at the right base. Mild right pleural effusion. Minimal increased density at the lateral left base. Linear density seen in the left upper lobe which could be from scarring. Chest X-Ray 05/03/18 00:00 CONCLUSION: Lines and tubes appear appropriate in position. There is increased size of a right apical pneumothorax and increased pleural fluid. Resolving right-sided subcutaneous emphysema. Chest X-Ray 05/04/18 06:00 CONCLUSION: 1. No significant change is appreciated. Right chest tube remains present and there is a persistent right pneumothorax. 2. Stable right basilar opacity characteristic of pleural effusion with associated volume loss and/or airspace consolidation. The right upper lobe opacity is also stable. Chest X-Ray 05/05/18 06:00 CONCLUSION: 1. Stable right pleural effusion associated volume loss and/or airspace consolidation. 2. Right chest tube remains present and no pneumothorax is visualized. Chest X-Ray 05/05/18 13:31 CONCLUSION: 1. There appears to be a very small right-sided loculated pneumothorax in the right costophrenic angle with 9 mm of separation. There is a right-sided chest tube in place. 2. No change in the streaky parenchymal infiltrates in the right lung. Chest X-Ray 05/06/18 13:31 CONCLUSION: Support equipment in satisfactory position. There are [address] on the right. No significant residual pneumothorax identified. Chest X-Ray 05/07/18 00:00 CONCLUSION: No significant interval change. No evidence of pneumothorax. Chest X-Ray 05/07/18 06:00 CONCLUSION: 1. 2 right chest tubes are present and no pneumothorax is visualized. 2. Stable right apex parenchymal opacity and small right basilar opacity. Chest X-Ray 05/11/18 06:46 CONCLUSION: Significant deterioration appearance of the chest as above Findings discussed with Dr. Sejal Nagy Chest X-Ray 05/11/18 09:53 CONCLUSION: Improved aeration of the right lung with residual patchy areas of infiltrate in the upper and lower lungs and residual moderate size pleural effusion. No pneumothorax seen. Chest X-Ray 05/12/18 07:30 CONCLUSION: Slight left lung base atelectasis and/or infiltrate is seen not present previously, otherwise not changed . Chest X-Ray 05/13/18 00:00 CONCLUSION: Possible small loculated air collection on the right following removal of chest tube. Lower chest tube in good position. Otherwise no significant interval change. Chest X-Ray 05/13/18 05:00 CONCLUSION: Improving aeration Chest X-Ray 05/14/18 06:00 CONCLUSION: Slight interval worsening in aeration. Chest X-Ray 05/15/18 06:00 CONCLUSION: Thoracostomy tube removal with continued improvement in aeration. Objective Remarks: GENERAL: This is a 72-year-old male currently resting in bed in no acute distress SKIN: Warm and dry. No rash HEAD: Atraumatic. Normocephalic. EYES: Pupils equal and round. No scleral icterus. ENT: No nasal bleeding or discharge. Mucous membranes moist. NECK: Trachea midline. No JVD. CARDIOVASCULAR: S1-S2 normal no murmur RESPIRATORY: Air entry decreased on the right compared to left side, scattered rhonchi bilaterally. Dressing over surgical site. Chest tube x2 to the right with no airleak. Anterior chest tube to be removed today by CT surgery GASTROINTESTINAL: Abdomen soft, non-tender, nondistended. no guarding. MUSCULOSKELETAL: Extremities without clubbing, cyanosis, or edema. No obvious deformities. NEUROLOGICAL: Awake, alert, following commands. Moves all extremities and appropriate Assessment and Plan - Problem List (1) COPD with acute exacerbation Code(s): J44.1 - Chronic obstructive pulmonary disease with (acute) exacerbation Status: Acute (2) Bilateral pneumonia Code(s): J18.9 - Pneumonia, unspecified organism Status: Acute (3) Allergic reaction caused by a drug Code(s): T78.40XA - Allergy, unspecified, initial encounter Status: Acute (4) Acute respiratory failure Code(s): J96.00 - Acute respiratory failure, unspecified whether with hypoxia or hypercapnia Status: Acute (5) Severe sepsis Code(s): A41.9 - Sepsis, unspecified organism; R65.20 - Severe sepsis without septic shock Status: Acute (6) Leukocytosis Code(s): D72.829 - Elevated white blood cell count, unspecified Status: Acute (7) Hypotension Code(s): I95.9 - Hypotension, unspecified Status: Acute (8) Acute kidney injury Code(s): N17.9 - Acute kidney failure, unspecified Status: Acute (9) Hyponatremia Code(s): E87.1 - Hypo-osmolality and hyponatremia Status: Acute (10) Hyperglycemia Code(s): R73.9 - Hyperglycemia, unspecified Status: Acute (11) History of hypertension Code(s): Z86.79 - Personal history of other diseases of the circulatory system Status: Chronic (12) Tobacco abuse Code(s): Z72.0 - Tobacco use Status: Chronic (13) History of COPD Code(s): Z87.09 - Personal history of other diseases of the respiratory system Status: Chronic - Assessment and Plan Plan: Neuro/Psych -Acetaminophen 650 p.o. every 6 hours as needed fever -Hydrocodone/acetaminophen 5/325 1 tablet every 4 hours as needed pain 1 through 5 - Morphine sulfate 2 mg IV every 2 hours as needed pain 6 through 10 RESP: Acute hypoxemic respiratory failure Persistent right-sided pneumothorax Right-sided complicated pleural effusion, probable empyema History of COPD Tobaccoism Left lower lobe 1.5 cm pulmonary nodule. Outpatient PET scan -Extubated on 05/09. Chest x-ray from 05/11 showed white out on the right side suggesting atelectasis, suspect mucous plugging. -s/p intubation followed by bronchoscopy and BAL with removal of significant mucous plugs from right mainstem bronchus and subsequent extubation on 05/11 -Albuterol/ipratropium aerosols every 4 hours with albuterol aerosols every 2 as needed dyspnea -EZ Pap every 4 hours -CT of the chest 04/30/2018 shows large persistent right pneumothorax pl effusion and significant right lower lung consolidation with probable cavitation /abscess -s/p 28 Slovak chest tube to the right side, now with reexpansion of the lung but continued air leak -Dr. Carey did bronchoscopy- large amount of mucus plugging removed from right upper lobe -Repeat CT chest shows good reexpansion of the right lung. Persistent hydropneumothorax apically and right lower lung region. Loculated hydropneumothorax may be empyema -Status post right VATS with decortication 05/05/2018 -Continue antibiotics per ID -Anterior chest tube was removed 05/13. Last right-sided chest removed by CT surgery 05/14. Plans CT chest today 05/15 CV: Essential hypertension Coronary artery disease Grade 1 diastolic dysfunction -Discontinue IV fluids today -Currently metoprolol tartrate 50 mg twice daily/150 twice daily at home- holding lisinopril 40 mg by mouth daily for hypertension. -2D echocardiogram 04/06/2018 revealed grade 1 diastolic dysfunction GI -Cardiac diet -Famotidine for GI prophylaxis -Docusate sodium 100 mg 1 tablet twice daily for bowel regimen Renal/: -Monitor creatinine daily. Follow trends -Monitor urine output -Accurate I's and O's. ID: Status post right VATS 05/05/2018 MRSA pneumonia with probable lung abscess (Zyvox resistant) Severe necrotizing pneumonia Probable septic emboli to the left lung MRSA bacteremia MRSA pneumonia -Antibiotics per ID. Currently on ceftaroline and clindamycin for linezolid resistant staph aureus Anaphylaxis to vancomycin noted -Further cultures per ID -Xddcwohcqmia-drmqxc-jw cultures negative -Status post right VATS with decortication on 05/05 -Blood cultures MRSA. -Sputum 04/28 MRSA -Tissue culture 05/05 MRSA HEME: Leukocytosis Normocytic anemia -Monitor CBC, coags -No indication for transfusion of blood products at this time ENDO/FEN: Hypophosphatemia Hypopotassemia -Electrolyte replacement per protocol. 30 mmol potassium phosphate and 30 mEq KCl x1 now. Recheck in a.m. -Sliding scale insulin if needed PROPH: -Bilateral lower extremity SCDs. /famotidine. Resumed enoxaparin 05/07 LINES: -Utilize peripheral IVs, right subclavian central line placed 05/01/18. Discontinued Level 2 follow-up Code Status: Full code Discussed Condition With: Patient. Care plan discussed and all questions answered (2) Bilateral pneumonia Qualifiers: Pneumonia type: due to unspecified organism Lung location: unspecified part of lung Qualified Code(s): J18.9 - Pneumonia, unspecified organism (3) Allergic reaction caused by a drug Qualifiers: Encounter type: initial encounter Qualified Code(s): T78.40XA - Allergy, unspecified, initial encounter (4) Acute respiratory failure Qualifiers: Respiratory failure complication: unspecified whether with hypoxia or hypercapnia Qualified Code(s): J96.00 - Acute respiratory failure, unspecified whether with hypoxia or hypercapnia (6) Leukocytosis Qualifiers: Leukocytosis type: unspecified Qualified Code(s): D72.829 - Elevated white blood cell count, unspecified (7) Hypotension Qualifiers: Hypotension type: unspecified hypotension type Qualified Code(s): I95.9 - Hypotension, unspecified
[2018-05-15] MEDS: Sodium Chloride 0.9% 2 ML Flush BID IV.FLUSH SCH ×2 (08:15→20:24)
[2018-05-15] MEDS: Chlorhexidine 0.12% Oral Kit 15 ML UDC OROPHARYNG SCH ×2 (08:20→20:15)
--- NOTE | 2018-05-15 09:22 | CT ---
EXAM DATE: 05/15/2018 9:07 AM EST AGE/SEX: 72 years / Male INDICATIONS: Pleural effusion. CLINICAL DATA: This is the patient's initial encounter. Patient reports that signs and symptoms have been present for 1 day and indicates a pain score of 4/10. MEDICAL/SURGICAL HISTORY: Chronic obstructive pulmonary disease. Hypertension. . Back surgery. RADIATION DOSE: 9.32 CTDI (mGy) COMPARISON: [facility] [place], CT CHEST W/O CONTRAST, 05/02/2018. . TECHNIQUE: Multiple contiguous axial images were obtained through the chest without contrast. Image s were obtained in suspended respiration using multiple row detector helical technique. Using automa milad exposure control and adjustment of the mA and/or kV according to patient size, radiation dose was kept as low as reasonably achievable to obtain optimal diagnostic quality images. DICOM format imag e data is available electronically for review and comparison. FINDINGS: Lungs: Today's examination is compared to the prior study. The previously noted right-sided chest tu be has been removed. There continues to be a parenchymal density in the right apex with some focal ca vitation. This is increased compared to the prior study. There are scattered parenchymal infiltrates throughout the right lung. There is parenchymal consolidation and atelectasis involving the right low er lung. There is a small right hydropneumothorax in the right cardiophrenic angle. There is no nunez e with the overall appearance of the left lung which is well aerated. There are stable patchy infiltr ates in the left lung base compared to the prior exam. There is no evidence of any pneumothorax on th e left. Stable bullous changes are noted in the left upper lung. Mediastinum: There is good visualization of the great vessels of the middle mediastinum. No evidenc e of mediastinal or hilar adenopathy/mass. Stable findings Pleurae: There is some pleural thickening in the left lung base. No evidence of left-sided effusion. There is a small right hydropneumothorax in the right cardiophrenic angle. The bulk of the consolida tion in the right lower lung is parenchymal consolidation and not effusion. Axillae: Unremarkable. Bony Structures: Stable degenerative changes. Miscellaneous: The examination was extended to include the upper abdomen, and both adrenal glands ar e normal in size and configuration. CONCLUSION: 1. There is a small right-sided hydropneumothorax present only in the right cardiophrenic angle. No evidence of a left-sided pleural effusion. 2. The bulk of the consolidation in the right lower lung is parenchymal consolidation and not effusi on. 3. Increasing patchy infiltrates are now noted throughout the right lung compared to the prior study . Stable patchy infiltrates in the left lung base compared to the prior study. 4. There is some increased cavitation of the parenchymal masslike density in the right apex. Electronically signed by: Artemio Muñoz MD Board Certified Radiologist 05/15/2018 9:21 AM EST
[2018-05-15] MEDS: Metoprolol Tartrate 100 MG Tablet PO SCH ×3 (09:31→21:08)
[2018-05-15] MEDS: Docusate Sodium 100 MG Capsule PO SCH ×2 (09:31→20:25)
[2018-05-15] MEDS: guaiFENesin 600 MG ER Tablet PO SCH ×2 (09:31→20:24)
[2018-05-15] MEDS: Collagenase Oint 30 GM Tube TOPICAL SCH (09:31)
[2018-05-15] MEDS: Enoxaparin Inj 40 MG/0.4 ML Syringe SQ SCH (09:46)
--- NOTE | 2018-05-15 11:13 | P.PNID ---
Subjective Remarks: On part non rembreather CT was dw Dr Muñoz: prgogression of disease in RUL, + cavitation and new lesion L lung disease is stable RESISTANCE to Linezolid was confirmed Antibiotics: n zyvox teflaro added 04/16 clindamycin added 05/05 Lines: Line sites okay Past Medical History: COPD Allergies/Adverse Reactions: Allergies bee venom protein (honey bee) Allergy (Unknown, Verified 04/05/18 21:12) Edema vancomycin Allergy (Verified 04/05/18 23:33) Anaphylaxis Objective Vital Signs 05/14/18 12:00 05/14/18 12:07 05/14/18 13:00 Temperature 99.0 F Pulse Rate 104 H 101 H 110 H Respiratory Rate 32 H 25 H 34 H Blood Pressure 136/75 96/69 L Pulse Oximetry 91 L 91 L 05/14/18 14:00 05/14/18 15:00 05/14/18 15:01 Temperature Pulse Rate 110 H 117 H 117 H Respiratory Rate 41 H 51 H 55 H Blood Pressure 102/70 115/82 Pulse Oximetry 94 L 98 93 L 05/14/18 15:55 05/14/18 16:00 05/14/18 17:00 Temperature 99.4 F Pulse Rate 109 H 109 H 111 H Respiratory Rate 18 33 H 31 H Blood Pressure 98/61 L 105/71 Pulse Oximetry 93 L 94 L 05/14/18 18:00 05/14/18 19:00 05/14/18 19:48 Temperature Pulse Rate 109 H 112 H 124 H Respiratory Rate 20 29 H Blood Pressure 111/73 107/72 Pulse Oximetry 95 95 05/14/18 19:53 05/14/18 19:59 05/14/18 20:00 Temperature 97.6 F Pulse Rate 114 H 117 H Respiratory Rate 22 20 28 H Blood Pressure 119/68 Pulse Oximetry 94 L 97 94 L 05/14/18 21:00 05/14/18 21:30 05/14/18 21:52 Temperature Pulse Rate 115 H 103 H Respiratory Rate 18 Blood Pressure 108/70 Pulse Oximetry 99 96 05/14/18 22:00 05/14/18 23:00 05/15/18 00:00 Temperature 98.6 F Pulse Rate 104 H 84 89 Respiratory Rate 26 H 23 24 Blood Pressure 100/70 88/61 L 116/77 Pulse Oximetry 99 92 L 96 05/15/18 00:02 05/15/18 01:00 05/15/18 02:00 Temperature Pulse Rate 84 92 H 87 Respiratory Rate 18 30 H 23 Blood Pressure 117/75 94/66 L Pulse Oximetry 95 90 L 05/15/18 03:00 05/15/18 03:27 05/15/18 04:00 Temperature Pulse Rate 88 87 92 H Respiratory Rate 23 18 24 Blood Pressure 99/64 L 105/69 Pulse Oximetry 91 L 91 L 05/15/18 06:00 05/15/18 07:34 Temperature Pulse Rate 97 H 97 H Respiratory Rate 18 Blood Pressure Pulse Oximetry 93 L Intake & Output 05/14/18 05/15/18 05/15/18 18:59 06:59 18:59 Intake Total 358 / 358 1320 / 1320 Output Total 250 / 250 425 / 425 Balance 108 / 108 895 / 895 Weight 71.2 kg Intake: IV 258 / 258 1300 / 1300 1/2 Normal Saline Inj 1,000 ML 1000 / 1000 @ 42 mls/hr IV.CONT .[id number] [facility] Rx#:[id number] Teflaro Inj 600 MG In NS Inj 100 / 100 200 / 200 100 ML @ 100 mls/hr IV.SIG Q8H [facility] Rx#:[id number] Cleocin 900 mg/NS Premix 900 mg 50 / 50 100 / 100 In 50 ml @ 100 mls/hr IV.SIG Q8H [facility] Rx#:[id number] Magnesium Sulfate Inj 4 GM In 108 / 108 D5W Inj 100 ML @ 25 mls/hr IV. SIG ONCE ONE Rx#:[id number] Oral 100 / 100 20 / 20 Output: Urine 250 / 250 Urine Amount (Catheter) 425 / 425 Condom 425 / 425 Other: # Voids 3 # Incontinent Voids 1 Date of Last Bowel Movement 05/12/18 05/12/18 # Bowel Movements 0 05/05/18 12:10 Tissue - Other Acid Fast Bacilli Smear - Final No acid fast bacilli seen 05/05/18 12:10 Tissue - Other Mycobacterial Culture - Preliminary No growth in 1 week 05/05/18 12:10 Tissue - Other Fungal Smear - Final No fungal elements seen 05/05/18 12:10 Tissue - Other Fungal Culture - Preliminary No growth in 1 week 05/05/18 12:50 Fluid - Pleural fluid Fungal Smear - Final No fungal elements seen 05/05/18 12:50 Fluid - Pleural fluid Fungal Culture - Preliminary No growth in 1 week 05/05/18 12:50 Fluid - Pleural fluid Acid Fast Bacilli Smear - Final No acid fast bacilli seen 05/05/18 12:50 Fluid - Pleural fluid Mycobacterial Culture - Preliminary No growth in 1 week 05/05/18 12:10 Tissue - Other Fungal Smear - Final No fungal elements seen 05/05/18 12:10 Tissue - Other Fungal Culture - Preliminary No growth in 1 week 05/05/18 12:10 Tissue - Other Acid Fast Bacilli Smear - Final No acid fast bacilli seen 05/05/18 12:10 Tissue - Other Mycobacterial Culture - Preliminary No growth in 1 week Lab - Hematology Results 05/14/18 05/15/18 05:40 03:35 WBC 16.8 H 15.1 H RBC 3.63 L 3.27 L Hgb 10.6 L 9.5 L Hct 32.3 L 29.2 L MCV 88.9 89.4 MCH 29.3 29.0 MCHC 32.9 32.4 RDW 15.3 15.6 Plt Count 481 H 436 MPV 7.2 7.9 Neut % (Auto) 82.7 H Lymph % (Auto) 5.4 L Crockett % (Auto) 8.6 H Eos % (Auto) 2.1 Baso % (Auto) 1.2 Neut # (Auto) 12.4 H Lymph # (Auto) 0.8 L Crockett # (Auto) 1.3 H Eos # (Auto) 0.3 Baso # (Auto) 0.2 WBC Differential . Differential Comment Auto diff final Lab - Chemistry Results 05/13/18 05/15/18 23:20 03:35 Sodium 138 141 Potassium 4.0 D 3.3 L Chloride 102 101 Carbon Dioxide 29.4 36.8 H Anion Gap 7 3 L BUN 15 14 Creatinine 0.29 L 0.21 L Estimated GFR Greater than 89 Greater than 89 Random Glucose 114 H 98 Calcium 8.5 8.4 L Phosphorus 1.8 L Magnesium 1.7 1.9 Total Bilirubin 0.4 0.3 AST 15 18 ALT 32 22 Alkaline Phosphatase 82 76 Total Protein 6.3 L 5.6 L D Albumin 1.8 L 1.6 L Imaging: ITS Impressions Face CT 04/06/18 00:00 CONCLUSION: 1. Small focal area of soft tissue swelling involving the lateral orbital margin on the left. No abscess. Abdomen/Pelvis CT 04/10/18 00:00 CONCLUSION: 1. Findings in the patient's chest discussed on the patient's chest CT. 2. Left renal stone without hydronephrosis. 3. Slight AAA. 4. Possible gallstones within the gallbladder. 5. There is slight fluid within the peritoneal cavity in the pelvis and within left perinephric space and stranding densities involving the Gerota's fascia on the left side. The exact etiology is not certain could be inflammatory, and there is no hydronephrosis. Head MRI 04/12/18 00:00 CONCLUSION: 1. Some chronic changes with mild cortical and central atrophy. Minimal periventricular and scattered deep white matter tract areas of small vessel ischemic demyelination. 2. Some fluid or secretions identified in the dependent portion of the nasopharynx. 3. Otherwise negative. No findings of intracranial mass lesion/abscess. Lumbar Spine MRI 04/12/18 00:00 CONCLUSION: 1. No evidence of epidural abscess. 2. Grade 1 anterolisthesis at L5-S1 with associated discogenic degenerative changes and bilateral pars defects. There is significant bilateral bony neural foraminal stenosis with bilateral neural impingement. 3. Asymmetric ligamentum flavum hypertrophy on the right side at the L4-5 level flattens the dorsal lateral aspect of the thecal sac. Neural foramen remain patent. 4. Suggestion of distended urinary bladder, incompletely imaged in the field-of -view. Thoracic Spine MRI 04/12/18 00:00 CONCLUSION: 1. Small bilateral pleural effusions. 2. Spinal canal is widely patent throughout without cord compromise. No findings of a paravertebral abscess. Abdomen X-Ray 04/12/18 09:42 CONCLUSION: No evidence of ileus. Gallium Scan Nuclear Medicine 04/13/18 00:00 CONCLUSION: 1. There is abnormal uptake in the lungs corresponding to cavitary lesions probably lung abscesses and areas of consolidation seen on the patient's prior chest CT. Chest CT 05/15/18 06:00 CONCLUSION: 1. There is a small right-sided hydropneumothorax present only in the right cardiophrenic angle. No evidence of a left-sided pleural effusion. 2. The bulk of the consolidation in the right lower lung is parenchymal consolidation and not effusion. 3. Increasing patchy infiltrates are now noted throughout the right lung compared to the prior study. Stable patchy infiltrates in the left lung base compared to the prior study. 4. There is some increased cavitation of the parenchymal masslike density in the right apex. Chest X-Ray 05/15/18 06:00 CONCLUSION: Thoracostomy tube removal with continued improvement in aeration. Physical Exam: GENERAL: NAD On NRB SKIN: Warm and dry. No rash HEAD: Atraumatic. Normocephalic. EYES: Pupils equal and round. No scleral icterus. No injection or drainage. ENT: No nasal bleeding or discharge. Mucous membranes pink and moist. NECK: Trachea midline. No JVD. CARDIOVASCULAR: Regular rate and rhythm. RESPIRATORY: No accessory muscle use. R lung with decreased BS and extensive R sided CT w serosang dc GASTROINTESTINAL: Abdomen soft, non-tender, nondistended. MUSCULOSKELETAL: Extremities without clubbing, no cyanosis mild edema. NEUROLOGICAL: awake, alert, talks PSYCHIATRIC: unable to assess Assessment and Plan - Plan Sepsis High grade MRSA bacteremia with multifocal pulmonary infiltrates MR spine,brain megative DEEDEE wo e/o endocarditis Necrotizing PNA 2/2 Linezolid Resistant MRSA : no improvement HIV/HCV/HBV serologies negative acute VDRF PTX sp decortication Disease progression in R luing on CT worsening resp status Recs: Cont - teflaro 600 q 8 - clindamycin 900 q 8 repeat sputum dw Wanda Lofton
[2018-05-15] MEDS: Famotidine PF Inj 20 MG/2 ML Vial IV.PUSH SCH ×2 (16:45→20:23)
--- NOTE | 2018-05-15 18:52 | P.PNPL ---
Subjective Interval history: 72 YOWM with MRSA Pn, cavitary lesion, COPD, Lt ptx mild sob On PRB Was Out of bed for [address] chest loulated Hydropneumothorax, consolidation RLL Physical Exam Vital signs: Vital Signs 05/14/18 19:00 05/14/18 19:48 05/14/18 19:53 Temperature Pulse Rate 112 H 124 H Respiratory Rate 29 H 22 Blood Pressure 107/72 Pulse Oximetry 95 94 L 05/14/18 19:59 05/14/18 20:00 05/14/18 21:00 Temperature 97.6 F Pulse Rate 114 H 117 H 115 H Respiratory Rate 20 28 H 18 Blood Pressure 119/68 108/70 Pulse Oximetry 97 94 L 99 05/14/18 21:30 05/14/18 21:52 05/14/18 22:00 Temperature Pulse Rate 103 H 104 H Respiratory Rate 26 H Blood Pressure 100/70 Pulse Oximetry 96 99 05/14/18 23:00 05/15/18 00:00 05/15/18 00:02 Temperature 98.6 F Pulse Rate 84 89 84 Respiratory Rate 23 24 18 Blood Pressure 88/61 L 116/77 Pulse Oximetry 92 L 96 05/15/18 01:00 05/15/18 02:00 05/15/18 03:00 Temperature Pulse Rate 92 H 87 88 Respiratory Rate 30 H 23 23 Blood Pressure 117/75 94/66 L 99/64 L Pulse Oximetry 95 90 L 91 L 05/15/18 03:27 05/15/18 04:00 05/15/18 06:00 Temperature Pulse Rate 87 92 H 97 H Respiratory Rate 18 24 Blood Pressure 105/69 Pulse Oximetry 91 L 05/15/18 07:34 05/15/18 08:00 05/15/18 08:37 Temperature 97.9 F Pulse Rate 97 H 101 H 102 H Respiratory Rate 18 28 H 28 H Blood Pressure 104/66 103/65 Pulse Oximetry 93 L 95 98 05/15/18 09:00 05/15/18 10:00 05/15/18 11:29 Temperature Pulse Rate 107 H 109 H 103 H Respiratory Rate 30 H 18 Blood Pressure Pulse Oximetry 97 97 05/15/18 12:00 05/15/18 13:00 05/15/18 14:00 Temperature 96.8 F L Pulse Rate 104 H 100 H 97 H Respiratory Rate 21 26 H Blood Pressure 89/65 L Pulse Oximetry 96 97 05/15/18 15:00 05/15/18 16:00 05/15/18 17:00 Temperature 96.6 F L Pulse Rate 93 H 102 H 103 H Respiratory Rate 20 31 H 28 H Blood Pressure 104/68 125/75 Pulse Oximetry 98 100 05/15/18 18:00 Temperature Pulse Rate 102 H Respiratory Rate Blood Pressure Pulse Oximetry Intake & Output 05/14/18 05/15/18 05/15/18 18:59 06:59 18:59 Intake Total 358 / 358 1320 / 1320 150 / 150 Output Total 250 / 250 425 / 425 250 / 250 Balance 108 / 108 895 / 895 -100 / -100 Weight 71.2 kg Intake: IV 258 / 258 1300 / 1300 150 / 150 1/2 Normal Saline Inj 1,000 ML 1000 / 1000 @ 42 mls/hr IV.CONT .[id number] [facility] Rx#:[id number] Teflaro Inj 600 MG In NS Inj 100 / 100 200 / 200 100 / 100 100 ML @ 100 mls/hr IV.SIG Q8H [facility] Rx#:[id number] Cleocin 900 mg/NS Premix 900 mg 50 / 50 100 / 100 50 / 50 In 50 ml @ 100 mls/hr IV.SIG Q8H [facility] Rx#:[id number] Magnesium Sulfate Inj 4 GM In 108 / 108 D5W Inj 100 ML @ 25 mls/hr IV. SIG ONCE ONE Rx#:[id number] Oral 100 / 100 20 / 20 Output: Urine 250 / 250 Urine Amount (Catheter) 425 / 425 250 / 250 Condom 425 / 425 250 / 250 Other: # Voids 3 # Incontinent Voids 1 Date of Last Bowel Movement 05/12/18 05/12/18 05/12/18 # Bowel Movements 0 GENERAL: Elderly WM, mild sob, on PRB SKIN: Warm and dry. HEAD: Normocephalic. EYES: No scleral icterus. No injection or drainage. NECK: Supple, trachea midline. No JVD or lymphadenopathy. CARDIOVASCULAR: Regular rate and rhythm without murmurs, gallops, or rubs. RESPIRATORY: Breath sounds equal bilaterally. No accessory muscle use. Decreased BS right. GASTROINTESTINAL: Abdomen soft, non-tender, nondistended. MUSCULOSKELETAL: No cyanosis, or edema. BACK: Nontender without obvious deformity. No CVA tenderness. - Urinary Catheter Management Indwelling Urethral Catheter Cath placed during this visit: yes, but has since been removed by the nurse Reason for continuing: Acute urinary retention Insertion date: 04/05/18 Insertion time: 23:00 Removal date: 04/12/18 Removal time: 08:30 Condom Cath placed during this visit: no Reason for continuing: Acute urinary retention Straight Cath placed during this visit: yes, but has since been removed by the nurse Reason for continuing: Not indwelling catheter Insertion date: 05/06/18 Insertion time: 18:00 Removal date: 05/06/18 Removal time: 18:10 Indwelling Temp Sensing Catheter Cath placed during this visit: yes, but has since been removed by the nurse Reason for continuing: Hourly intake/output Insertion date: 05/05/18 Insertion time: 12:15 Removal date: 05/05/18 Removal time: 15:00 Assessment and Plan - Plan IMPRESSION: 1. MRSA pneumonia. 2. Cavitary pneumonia. 4. Chronic obstructive pulmonary disease. 5. Hypotension. 6. Left pneumothorax, status post chest tube.removal 7. Nicotine use. 8. Right Ptx 9. VDRF PLAN: Cont Abx per ID Aerosol nebs Supplement 02 with NRB CPAP prn encourage PO GUERLINE RN at BS
[2018-05-16] MEDS: Oral Hygiene Kit OROPHARYNG SCH ×4 (00:43→23:37)
[2018-05-16] MEDS: Clindamycin 900 mg/NS Premix 900 MG/50 ML PIGGYBACK IV.SIG SCH ×3 (01:07→18:49)
[2018-05-16 05:14] LABS: Baso # (Auto) 0.1 th/mm3 (0.0-0.2); Baso % (Auto) 0.7 % (0.0-2.0); Eos # (Auto) 0.4 th/mm3 (0.0-0.4); Hematocrit 32.5 % (39.0-51.0); Hemoglobin 10.6 gm/dL (13.0-17.0); Lymph # (Auto) 0.6 th/mm3 (1.0-4.8); Lymph % (Auto) 4.3 % (9.0-44.0); Mean Corpuscular HGB Conc 32.7 % (32.0-36.0); Mean Corpuscular Hemoglobin 29.2 pg (27.0-34.0); Mean Corpuscular Volume 89.5 fL (80.0-100.0); Mono # (Auto) 0.8 th/mm3 (0.0-0.9); Mono % (Auto) 5.7 % (0.0-8.0); Neut # (Auto) 11.7 th/mm3 (1.8-7.7); Neut % (Auto) 86.3 % (16.0-70.0); Platelet Count 400 th/mm3 (150-450); Red Blood Count 3.63 mil/mm3 (4.50-5.90); Red Cell Distribution Width 15.2 % (11.6-17.2); White Blood Count 13.6 th/mm3 (4.0-11.0)
--- NOTE | 2018-05-16 05:15 | XR ---
EXAM DATE: 05/16/2018 5:12 AM EST AGE/SEX: 72 years / Male INDICATIONS: Shortness of breath, possible pulmonary disease. CLINICAL DATA: This is the patient's subsequent encounter. Patient reports that signs and symptoms h ave been present for 1 month and indicates a pain score of Nonresponsive. MEDICAL/SURGICAL HISTORY: Hypertension. Chronic obstructive pulmonary disease. MRSA . Chest t ubes. COMPARISON: [facility] [place] 1[place] SING[place] AP, 05/15/2018. . FINDINGS: Right base consolidation and effusion are unchanged. Right apical pleural-parenchymal disease is unch anged. Coarse interstitial prominence elsewhere in both lungs also stable. Cardiac contours are stabl e accounting for technique and projection. CONCLUSION: No significant change Electronically signed by: Akash Capone MD Board Certified Radiologist 05/16/2018 5:14 AM EST
[2018-05-16 05:38] LABS: Albumin 1.6 g/dL (3.4-5.0); Anion Gap 6 meq/L (5-15); Aspartate Aminotransferase 17 U/L (15-37); Blood Urea Nitrogen 11 mg/dL (7-18); Calcium 8.4 mg/dL (8.5-10.1); Carbon Dioxide 32.7 meq/L (21.0-32.0); Chloride 100 meq/L (98-107); Glomerular Filtration Rate Greater Than 89 mL/min (>89); Glucose,Random 93 mg/dL (74-106); Magnesium 1.7 mg/dL (1.5-2.5); Potassium 3.7 meq/L (3.5-5.1); Sodium 139 meq/L (136-145)
[2018-05-16 05:41] LABS: Alanine Aminotransferase 21 U/L (12-78); Alkaline Phosphatase 85 U/L (45-117); Phosphorus 2.6 mg/dL (2.5-4.9); Total Protein 5.9 g/dL (6.4-8.2)
[2018-05-16] MEDS: Chlorhexidine 0.12% Oral Kit 15 ML UDC OROPHARYNG SCH ×2 (07:49→19:40)
[2018-05-16] MEDS: Docusate Sodium 100 MG Capsule PO SCH ×2 (08:06→20:12)
[2018-05-16] MEDS: Enoxaparin Inj 40 MG/0.4 ML Syringe SQ SCH (08:06)
[2018-05-16] MEDS: Famotidine PF Inj 20 MG/2 ML Vial IV.PUSH SCH ×2 (08:06→20:12)
[2018-05-16] MEDS: Collagenase Oint 30 GM Tube TOPICAL SCH (08:06)
[2018-05-16] MEDS: Metoprolol Tartrate 100 MG Tablet PO SCH ×2 (08:06→20:12)
[2018-05-16] MEDS: guaiFENesin 600 MG ER Tablet PO SCH ×2 (08:06→20:12)
[2018-05-16] MEDS: Sodium Chloride 0.9% 2 ML Flush BID IV.FLUSH SCH ×2 (08:06→20:13)
--- NOTE | 2018-05-16 08:59 | P.PNPL ---
Subjective Interval history: Patient is on 50% VM, Awake and alert. Afebrile. Physical Exam Vital signs: Vital Signs 05/15/18 09:00 05/15/18 10:00 05/15/18 11:29 Temperature Pulse Rate 107 H 109 H 103 H Respiratory Rate 30 H 18 Blood Pressure Pulse Oximetry 97 97 05/15/18 12:00 05/15/18 13:00 05/15/18 14:00 Temperature 96.8 F L Pulse Rate 104 H 100 H 97 H Respiratory Rate 21 26 H Blood Pressure 89/65 L Pulse Oximetry 96 97 05/15/18 15:00 05/15/18 16:00 05/15/18 17:00 Temperature 96.6 F L Pulse Rate 93 H 102 H 103 H Respiratory Rate 20 31 H 28 H Blood Pressure 104/68 125/75 Pulse Oximetry 98 100 05/15/18 18:00 05/15/18 19:00 05/15/18 19:44 Temperature Pulse Rate 102 H 102 H 104 H Respiratory Rate 19 26 H 20 Blood Pressure 109/68 101/65 Pulse Oximetry 100 100 94 L 05/15/18 19:45 05/15/18 20:00 05/15/18 20:23 Temperature 98.9 F Pulse Rate 102 H 105 H 116 H Respiratory Rate 28 H 29 H Blood Pressure 103/66 101/60 Pulse Oximetry 95 93 L 05/15/18 21:00 05/15/18 21:45 05/15/18 22:00 Temperature Pulse Rate 116 H 107 H 107 H Respiratory Rate 29 H 32 H Blood Pressure 112/64 105/68 Pulse Oximetry 89 L 95 05/15/18 23:00 05/15/18 23:15 05/15/18 23:45 Temperature Pulse Rate 101 H 101 H 87 Respiratory Rate 33 H 20 Blood Pressure 105/68 Pulse Oximetry 97 05/16/18 00:00 05/16/18 01:00 05/16/18 01:45 Temperature 99.2 F Pulse Rate 105 H 109 H 83 Respiratory Rate 32 H 35 H Blood Pressure 115/67 105/66 Pulse Oximetry 94 L 91 L 05/16/18 02:00 05/16/18 03:00 05/16/18 03:30 Temperature Pulse Rate 113 H 119 H 112 H Respiratory Rate 38 H 33 H 20 Blood Pressure 106/70 133/82 Pulse Oximetry 94 L 94 L 05/16/18 03:45 05/16/18 04:00 05/16/18 05:00 Temperature 99.6 F Pulse Rate 112 H 116 H 124 H Respiratory Rate 19 31 H Blood Pressure 112/71 102/66 Pulse Oximetry 96 94 L 05/16/18 05:45 05/16/18 06:00 05/16/18 07:36 Temperature Pulse Rate 129 H 129 H 125 H Respiratory Rate 35 H 24 Blood Pressure 113/66 Pulse Oximetry 92 L 05/16/18 08:00 Temperature Pulse Rate 125 H Respiratory Rate 24 Blood Pressure Pulse Oximetry 92 L Intake & Output 05/15/18 05/16/18 05/16/18 18:59 06:59 18:59 Intake Total 1400 / 1400 750 / 750 Output Total 675 / 675 550 / 550 Balance 725 / 725 200 / 200 Weight 73 kg Intake: IV 200 / 200 510 / 510 Teflaro Inj 600 MG In NS Inj 100 / 100 200 / 200 100 ML @ 100 mls/hr IV.SIG Q8H [facility] Rx#:[id number] Cleocin 900 mg/NS Premix 900 mg 100 / 100 50 / 50 In 50 ml @ 100 mls/hr IV.SIG Q8H [facility] Rx#:[id number] Potassium Phosphate Inj 30 MMOL 260 / 260 In NS Inj 250 ML @ 43.333 mls/ hr IV.SIG ONCE ONE Rx#:[id number] Oral 1200 / 1200 240 / 240 Output: Urine Amount (Catheter) 675 / 675 550 / 550 Condom 675 / 675 550 / 550 Other: Date of Last Bowel Movement 05/12/18 05/12/18 # Bowel Movements 0 - Constitutional no acute distress - Routine HEENT Exam Head: Present: normocephalic, atraumatic Eye: Present: EOMI, PERRL, normal accommodation ENT: Present: mucous membranes moist - Routine Neck Exam Present: supple, full ROM, trachea midline - Routine Respiratory Exam Present: CTA bilaterally - Routine Cardiovascular Exam Present: S1, S2, tachycardia - Routine Abdominal Exam Present: soft, normoactive bowel sounds - Routine Skin Exam Present: intact, dry - Routine Neurological Exam Present: alert, oriented X3, CN II-XII intact - Urinary Catheter Management Indwelling Urethral Catheter Cath placed during this visit: yes, but has since been removed by the nurse Reason for continuing: Acute urinary retention Insertion date: 04/05/18 Insertion time: 23:00 Removal date: 04/12/18 Removal time: 08:30 Condom Cath placed during this visit: no Reason for continuing: Acute urinary retention Straight Cath placed during this visit: yes, but has since been removed by the nurse Reason for continuing: Not indwelling catheter Insertion date: 05/06/18 Insertion time: 18:00 Removal date: 05/06/18 Removal time: 18:10 Indwelling Temp Sensing Catheter Cath placed during this visit: yes, but has since been removed by the nurse Reason for continuing: Hourly intake/output Insertion date: 05/05/18 Insertion time: 12:15 Removal date: 05/05/18 Removal time: 15:00 Assessment and Plan - Assessment (1) COPD with acute exacerbation Code(s): J44.1 - Chronic obstructive pulmonary disease with (acute) exacerbation Status: Acute (2) Bilateral pneumonia Code(s): J18.9 - Pneumonia, unspecified organism Status: Acute Qualifiers: Pneumonia type: due to unspecified organism Lung location: unspecified part of lung Qualified Code(s): J18.9 - Pneumonia, unspecified organism (3) Allergic reaction caused by a drug Code(s): T78.40XA - Allergy, unspecified, initial encounter Status: Acute Qualifiers: Encounter type: initial encounter Qualified Code(s): T78.40XA - Allergy, unspecified, initial encounter (4) Acute respiratory failure Code(s): J96.00 - Acute respiratory failure, unspecified whether with hypoxia or hypercapnia Status: Acute Qualifiers: Respiratory failure complication: unspecified whether with hypoxia or hypercapnia Qualified Code(s): J96.00 - Acute respiratory failure, unspecified whether with hypoxia or hypercapnia (5) Severe sepsis Code(s): A41.9 - Sepsis, unspecified organism; R65.20 - Severe sepsis without septic shock Status: Acute (6) Leukocytosis Code(s): D72.829 - Elevated white blood cell count, unspecified Status: Acute Qualifiers: Leukocytosis type: unspecified Qualified Code(s): D72.829 - Elevated white blood cell count, unspecified (7) Hypotension Code(s): I95.9 - Hypotension, unspecified Status: Acute Qualifiers: Hypotension type: unspecified hypotension type Qualified Code(s): I95.9 - Hypotension, unspecified (8) Acute kidney injury Code(s): N17.9 - Acute kidney failure, unspecified Status: Acute (9) Hyponatremia Code(s): E87.1 - Hypo-osmolality and hyponatremia Status: Acute (10) Hyperglycemia Code(s): R73.9 - Hyperglycemia, unspecified Status: Acute (11) History of hypertension Code(s): Z86.79 - Personal history of other diseases of the circulatory system Status: Chronic (12) Tobacco abuse Code(s): Z72.0 - Tobacco use Status: Chronic (13) History of COPD Code(s): Z87.09 - Personal history of other diseases of the respiratory system Status: Chronic - Plan 1)Acute hypoxemic respiratory failure 2)s/p right VATS 3) COPD 4)Tobaccoism 5)Left lower lobe 1.5 cm pulmonary nodule. Outpatient PET scan 6)MRSA cavitary pneumonia/bacteremia PLAN: Wean down oxygen as naye keep sats >92% Bronchodilators Abx per ID Teflaro, Clindamycin, ID is following CXR today-Right base consolidation and effusion are unchanged. Right apical pleural-parenchymal disease is unchanged GI/DVT prophylaxis - On Pepcid and Lovenox respectively Continue treatment plan.
--- NOTE | 2018-05-16 13:32 | P.PNCC ---
Subjective Subjective Remarks/Hospital Course: Patient is 72-year-old male with past medical history of COPD, tobacco abuse and hypertension who came to the emergency room for shortness of breath via EMS. On EMS arrival saturation was in the 90s, but patient had significant shortness of breath and dyspnea. Patient received Solu-Medrol 125 mg IV and breathing treatments by EMS and was brought to the emergency department. In the emergency department patient received further breathing treatments and chest x-ray showed patchy infiltrate on bilateral lung fitzgerald. Initially maintaining oxygen saturation with nasal cannula. Initial blood pressure was 85 /65, improved with normal saline boluses. WBC count was 17.1. Patient was deemed septic from pneumonia and patient was ordered to receive vancomycin and Zosyn. While receiving vancomycin patient acutely decompensated became extremely short of breath and developed erythematous maculopapular rash involving face torso armpits and groin region. Emergently intubated and placed on mechanical ventilation by the ED physician. Received IV 50 mg Benadryl. Critical care medicine was requested to admit the patient. I evaluated the patient immediately in the emergency department. Patient is intubated on Versed and fentanyl infusion however he is very asynchronous with the vent triggering ventilator alarms. Severe bilateral expiratory wheezing heard on auscultation. He has extensive skin rash predominantly face forehead torso armpit and groins. Appears like patient had anaphylactic reaction to vancomycin complicated by COPD exacerbation and pneumonia. I have ordered additional Solu-Medrol 100 mg x1 scheduled Benadryl and famotidine, antibiotics with cefepime and Levaquin. Increase Versed infusion, add propofol and use neuromuscular paralysis as needed. Will request pharmacy to add vancomycin to allergy. ED physician Dr. Slater had noticed that patient had some swelling on the left side of his face on arrival, however the skin rash after vancomycin was started was new. Patient remains hypotensive has received 2 L of normal saline in the emergency department and no significant urine output. I have ordered additional 2 L normal saline bolus and maintenance fluid at 84 mL/h. Use Levophed as needed to keep map above 65 Subjective 04/06: Off norepinephrine drip. Currently resting in bed in no acute distress on midazolam and fentanyl drips. Start tube feeding today. 04/07: Remains sedated, intubated on mechanical ventilation. Blood cultures growing MRSA 04/08: remains sedated and intubated. repeat cultures still growing MRSA 2/4 cultures. likely need to repeat BCx either today or tomorrow. agree with narrowing spectrum abx. performed DEEDEE at ID recommendation (need to r/o endocarditis), but no evidence of vegetations. remains hypoxic. off vasopressors today. 04/09: adequate auto-diuresis overnight. off vasopressors. on sedation vacation. hypoxia improving. 04/10 Patient remains intubated and sedated with Fentanyl infusion. Became tachycardic and tachypneic overnight requiring increase sedation. Afebrile. 04/11 Patient is intubated and sedated. Afebrile. 04/12 Patient remains intubated and sedated with Diprivan and Fentanyl infusion, Afebrile. 04/13: Sedated, easily arousable, orally intubated on mechanical ventilation. 04/14 Patient was extubated yesterday. Afebrile. 04/15 Patient is lying in bed in NAD. On 3L oxygen. Awake and alert. 04/16 Patient is on partial rebreather. Afebrile. Awake and alert. 04/17: Left-sided chest tube placed for pneumothorax yesterday. On nasal cannula currently. Awake and alert. Appears comfortable. No air leak noted in Pleur-evac 04/18: Remains on nasal cannula. No air leak noted from left-sided chest tube. 04/19: On 5 L nasal cannula. Chest tube in place, no air leak noted. Resting in bed comfortably, no acute distress. Continues to have productive cough. 04/20: Remains on nasal cannula. Chest tube in place, no air leak noted. Resting in bed comfortably. 04/24: RECONSULT NOTE: called emergently by Hospitalist team. patient with new acute respiratory distress. Chest x-ray demonstrates new large right-sided pneumothorax. I went to evaluate the patient is seen in significant distress. I emergently placed right-sided pigtail chest tube. Significant denney of air with no air leak on chest tube. Respiratory distress improved after chest tube placement. Repeat interval chest x-ray demonstrates good placement of chest tube with resolution of pneumothorax. 04/26/18: RECONSULT NOTE: [facility] reconsulted for rexpansion of right pneumothorax. Patient developed increased SOB today without improvement with nebulizer. STAT CXR Moderate to large right pneumothorax has redeveloped and with a probable tension component. He appears to be in moderate distress tachypneic. Patient was moved to the ICU where I evaluated the patient emergently. The right pigtail chest tube is still in place, minimal air leak. I flushed the chest tube but was difficult to withdraw air. I then pulled back the chest tube by approximately 3 cm. Able to withdraw air more easily and on connection to the Vacutainer again there was significant air leak in all chambers. Patient subjectively felt improvement in shortness of breath after chest tube placement. Stat repeat chest x-ray shows near complete reexpansion of the right knee 04/30/18: [facility] RECONSULT NOTE: Critical care, reconsult for worsening respiratory failure. I evaluate the patient urgently. He is very tachypneic diaphoretic. Chest x-ray today showed possible right upper lobe pneumothorax and increasing right effusion. I did an emergent bedside ultrasound which shows probably loculated complicated right pleural effusion. Patient likely needs more further imaging and procedures and in very labored breathing. Proceeded with endotracheal intubation in place patient on mechanical ventilation. I explained plan of care prior to intubation. He understands that he may need emergency chest tube placement and also may need surgical intervention 05/01/18: Patient remains intubated sedated. Hypotensive on 75 mcg/min of Beau- Synephrine. While sedated. CT chest showed severe right lower lung consolidation large pneumothorax/hydropneumothorax on the right side. Plan for large bore chest tube and central line today. Also cardiothoracic surgery was consulted, and I discussed with Dr. Schaeffer. I will plan for a large bore chest tube to the right side followed by a central line placement. 05/02/18: Patient remains intubated heavily sedated for vent synchrony. Right chest tube with large air leak in all chambers. There is possibility of bronchopleural fistula. Chest x-ray shows improved air entry right lung. Discussed with cardiothoracic surgery Dr. Ontiveros today. Will repeat CT scan to see if lung is reexpanding. May need decortication procedure 05/03/18: Patient remains intubated sedated persistent large air leak. CT reviewed with cardiothoracic surgery Dr. Ontiveros. Will discuss with Dr. Schaeffer in a.m. Probably will benefit from decortication due to the hydropneumothorax and persistent pleural effusions which probably are empyema. Otherwise patient remains critically ill clinically same. [facility] cultures growing staph aureus still 05/04/18: Patient remains sedated critically ill. Chest x-ray shows mostly expanded right lung but with persistent loculated apical pneumothorax and right lower effusion. Plan for surgical intervention by Dr. Schaeffer 05/05/2018 possible decortication. Continue broad-spectrum antibiotics 05/05: Remains sedated, orally intubated on mechanical ventilation. Awaiting OR today for decortication and drainage of loculated effusion and possible repair of air leak site. 05/06: Remains sedated, orally intubated on mechanical ventilation. Status post right VATS with decortication on 05/05. [address] on the right with positive air leak. Subcutaneous emphysema decreasing. 05/07: Remains sedated, orally intubated on mechanical ventilation. Status post right VATS with decortication on 05/05. [address] on the right with positive air leak. Starting tube feeds and CPAP trials 05/08: Remains sedated, orally intubated on mechanical ventilation. Air leak persists from right-sided chest tube 05/09: Sedated, arousable, orally intubated on mechanical ventilation. 1+ air leak from right-sided chest tube noted. On CPAP trial. 05/10: Extubated yesterday. Slightly tachypneic. On nonrebreather facemask this morning. Air leak absent from right chest tube. 05/11: Patient on facemask O2. No air leak noted in right-sided chest tubes this morning. Chest x-ray reveals complete whiteout over right lung field raising concern for mucous plugging. Plan for intubation followed by bronchoscopy and BAL and then attempt to extubate patient. 05/12: Patient underwent intubation followed by bronchoscopy and BAL for right mucous plugging on 05/11 with significant mucus plugging noted which was suctioned out with BAL. Patient was subsequently extubated. Chest x-ray following bronchoscopy showed reexpansion of right lung with no pneumothorax and no air leak from chest tube. This morning patient is resting comfortably on 5 L nasal cannula and denies any shortness of breath. No air leak noted from chest tube. 05/13: Remains on nasal cannula maintaining oxygen saturation. Appears deconditioned. Chest x-ray shows improving aeration. Will get physical therapy to mobilize patient out of bed daily. Anterior chest tube to be removed by CT surgery today 05/14: Afebrile. Currently on nonrebreather mask. Aggressive pulmonary toilet initiated. Currently n.p.o. 05/15: Afebrile. Remains on nonrebreather mask but takes off intermittently. Plan for CT thorax exam. Replace potassium and phosphate this a.m. Appears comfortable lying in bed in no acute distress. Subjective 05/16: Resting comfortably in bed in no acute distress. Requesting additional physical therapy. Currently 8 L nasal cannula. Increased appetite this morning. Objective Vital Signs / I&O: Vital Signs 05/15/18 14:00 05/15/18 15:00 05/15/18 16:00 Temperature 96.6 F L Pulse Rate 97 H 93 H 102 H Respiratory Rate 20 31 H Blood Pressure 104/68 Pulse Oximetry 98 05/15/18 17:00 05/15/18 18:00 05/15/18 19:00 Temperature Pulse Rate 103 H 102 H 102 H Respiratory Rate 28 H 19 26 H Blood Pressure 125/75 109/68 101/65 Pulse Oximetry 100 100 100 05/15/18 19:44 05/15/18 19:45 05/15/18 20:00 Temperature 98.9 F Pulse Rate 104 H 102 H 105 H Respiratory Rate 20 28 H Blood Pressure 103/66 Pulse Oximetry 94 L 95 05/15/18 20:23 05/15/18 21:00 05/15/18 21:45 Temperature Pulse Rate 116 H 116 H 107 H Respiratory Rate 29 H 29 H Blood Pressure 101/60 112/64 Pulse Oximetry 93 L 89 L 05/15/18 22:00 05/15/18 23:00 05/15/18 23:15 Temperature Pulse Rate 107 H 101 H 101 H Respiratory Rate 32 H 33 H 20 Blood Pressure 105/68 105/68 Pulse Oximetry 95 97 05/15/18 23:45 05/16/18 00:00 05/16/18 01:00 Temperature 99.2 F Pulse Rate 87 105 H 109 H Respiratory Rate 32 H 35 H Blood Pressure 115/67 105/66 Pulse Oximetry 94 L 91 L 05/16/18 01:45 05/16/18 02:00 05/16/18 03:00 Temperature Pulse Rate 83 113 H 119 H Respiratory Rate 38 H 33 H Blood Pressure 106/70 133/82 Pulse Oximetry 94 L 94 L 05/16/18 03:30 05/16/18 03:45 05/16/18 04:00 Temperature 99.6 F Pulse Rate 112 H 112 H 116 H Respiratory Rate 20 19 Blood Pressure 112/71 Pulse Oximetry 96 05/16/18 05:00 05/16/18 05:45 05/16/18 06:00 Temperature Pulse Rate 124 H 129 H 129 H Respiratory Rate 31 H 35 H Blood Pressure 102/66 113/66 Pulse Oximetry 94 L 92 L 05/16/18 07:36 05/16/18 08:00 05/16/18 11:33 Temperature Pulse Rate 125 H 125 H 101 H Respiratory Rate 24 24 24 Blood Pressure Pulse Oximetry 92 L Intake & Output 05/15/18 05/16/18 05/16/18 18:59 06:59 18:59 Intake Total 1400 / 1400 750 / 750 Output Total 675 / 675 550 / 550 Balance 725 / 725 200 / 200 Weight 73 kg Intake: IV 200 / 200 510 / 510 Teflaro Inj 600 MG In NS Inj 100 / 100 200 / 200 100 ML @ 100 mls/hr IV.SIG Q8H [facility] Rx#:[id number] Cleocin 900 mg/NS Premix 900 mg 100 / 100 50 / 50 In 50 ml @ 100 mls/hr IV.SIG Q8H [facility] Rx#:[id number] Potassium Phosphate Inj 30 MMOL 260 / 260 In NS Inj 250 ML @ 43.333 mls/ hr IV.SIG ONCE ONE Rx#:[id number] Oral 1200 / 1200 240 / 240 Output: Urine Amount (Catheter) 675 / 675 550 / 550 Condom 675 / 675 550 / 550 Other: Date of Last Bowel Movement 05/12/18 05/12/18 # Bowel Movements 0 Result Diagrams: 05/16/18 03:56 05/16/18 03:56 Other Results: Microbiology 05/01/18 11:00 Bronchial Washings - Right Acid Fast Bacilli Smear - Final No acid fast bacilli seen 05/01/18 11:00 Bronchial Washings - Right Mycobacterial Culture - Preliminary No growth in 2 weeks 05/05/18 12:10 Tissue - Other Acid Fast Bacilli Smear - Final No acid fast bacilli seen 05/05/18 12:10 Tissue - Other Mycobacterial Culture - Preliminary No growth in 1 week 05/05/18 12:10 Tissue - Other Fungal Smear - Final No fungal elements seen 05/05/18 12:10 Tissue - Other Fungal Culture - Preliminary No growth in 1 week 05/05/18 12:50 Fluid - Pleural fluid Fungal Smear - Final No fungal elements seen 05/05/18 12:50 Fluid - Pleural fluid Fungal Culture - Preliminary No growth in 1 week 05/05/18 12:50 Fluid - Pleural fluid Acid Fast Bacilli Smear - Final No acid fast bacilli seen 05/05/18 12:50 Fluid - Pleural fluid Mycobacterial Culture - Preliminary No growth in 1 week 05/05/18 12:10 Tissue - Other Fungal Smear - Final No fungal elements seen 05/05/18 12:10 Tissue - Other Fungal Culture - Preliminary No growth in 1 week 05/05/18 12:10 Tissue - Other Acid Fast Bacilli Smear - Final No acid fast bacilli seen 05/05/18 12:10 Tissue - Other Mycobacterial Culture - Preliminary No growth in 1 week 05/05/18 12:10 Tissue - Other Gram Stain - Final 05/05/18 12:10 Tissue - Other Wound Culture - Final No growth in 72 hours (aerobically and anaerobically ) 05/05/18 12:50 Fluid - Pleural fluid Gram Stain - Final 05/05/18 12:50 Fluid - Pleural fluid Body Fluid Culture - Final No growth in 72 hours (aerobically and anaerobically ) 05/05/18 12:10 Tissue - Other Gram Stain - Final 05/05/18 12:10 Tissue - Other Wound Culture - Final S. aureus MRSA 05/01/18 11:00 Bronchial - Right Gram Stain - Final 05/01/18 11:00 Bronchial - Right Bronchial Culture - Final S. aureus MRSA 05/01/18 11:00 Bronchial Washings - Right Fungal Smear - Final No fungal elements seen 05/01/18 11:00 Bronchial Washings - Right Fungal Culture - Preliminary 04/28/18 05:35 Sputum - Expectorated Sputum Gram Stain - Final 04/28/18 05:35 Sputum - Expectorated Sputum Sputum Culture - Final S. aureus MRSA 04/16/18 04:39 Blood - Peripheral Aerobic Blood Culture - Final No growth in 5 days 04/16/18 04:39 Blood - Peripheral Anaerobic Blood Culture - Final No growth in 5 days 04/16/18 04:27 Blood - Peripheral Aerobic Blood Culture - Final No growth in 5 days 04/16/18 04:27 Blood - Peripheral Anaerobic Blood Culture - Final No growth in 5 days 04/12/18 13:55 Blood - Peripheral Aerobic Blood Culture - Final No growth in 5 days 04/12/18 13:55 Blood - Peripheral Anaerobic Blood Culture - Final No growth in 5 days 04/12/18 13:47 Blood - Peripheral Aerobic Blood Culture - Final No growth in 5 days 04/12/18 13:47 Blood - Peripheral Anaerobic Blood Culture - Final No growth in 5 days 04/10/18 11:42 Blood - Peripheral Aerobic Blood Culture - Final No growth in 5 days 04/10/18 11:42 Blood - Peripheral Anaerobic Blood Culture - Final S. aureus MRSA 04/09/18 08:47 Blood - Peripheral Aerobic Blood Culture - Final No growth in 5 days 04/09/18 08:47 Blood - Peripheral Anaerobic Blood Culture - Final S. aureus MRSA 04/09/18 08:45 Blood - Peripheral Aerobic Blood Culture - Final S. aureus MRSA 04/09/18 08:45 Blood - Peripheral Anaerobic Blood Culture - Final S. aureus MRSA 04/10/18 11:35 Blood - Peripheral Aerobic Blood Culture - Final S. aureus MRSA 04/10/18 11:35 Blood - Peripheral Anaerobic Blood Culture - Final S. aureus MRSA 04/10/18 09:30 Sputum - Endotracheal Gram Stain - Final 04/10/18 09:30 Sputum - Endotracheal Sputum Culture - Final S. aureus MRSA 04/07/18 07:25 Blood - Peripheral Aerobic Blood Culture - Final S. aureus MRSA 04/07/18 07:25 Blood - Peripheral Anaerobic Blood Culture - Final S. aureus MRSA 04/07/18 07:34 Blood - Peripheral Aerobic Blood Culture - Final S. aureus MRSA 04/07/18 07:34 Blood - Peripheral Anaerobic Blood Culture - Final S. aureus MRSA 04/06/18 04:30 Sputum - Endotracheal Gram Stain - Final 04/06/18 04:30 Sputum - Endotracheal Sputum Culture - Final S. aureus MRSA 04/05/18 21:30 Blood - Peripheral Aerobic Blood Culture - Final S. aureus MRSA 04/05/18 21:30 Blood - Peripheral Anaerobic Blood Culture - Final S. aureus MRSA 04/05/18 21:40 Blood - Peripheral Aerobic Blood Culture - Final S. aureus MRSA 04/05/18 21:40 Blood - Peripheral Anaerobic Blood Culture - Final S. aureus MRSA 04/05/18 00:45 Clean Catch Urine Urine Culture - Final No growth in 48 hours 04/05/18 21:55 Nasal Wash Influenza Types A,B Antigen - Final Negative for FLU A and B antigen Infection due to influenza A or B cannot be ruled out since the antigen present in the sample may be below the detection limit of the test. Imaging: Chest X-Ray 04/05/18 21:24 CONCLUSION: Multifocal bilateral pulmonary opacity suspicious for multifocal consolidation. Recommend radiographic follow-up to resolution. Chest X-Ray 04/05/18 22:49 CONCLUSION: Interval intubation. Unchanged bilateral pulmonary consolidations. Chest CT 04/06/18 00:00 CONCLUSION: 1. Patchy bilateral areas of consolidation most likely infectious in etiology. 2. 1.5 cm left lower lobe pulmonary nodule. Close follow-up of this nodule is suggested. Consideration could be made to an outpatient PET CT to further assess. 3. Coronary artery atherosclerotic calcifications. Face CT 04/06/18 00:00 CONCLUSION: 1. Small focal area of soft tissue swelling involving the lateral orbital margin on the left. No abscess. Chest X-Ray 04/07/18 06:00 CONCLUSION: Unchanged bilateral pulmonary infiltrates and tiny left effusion. Abdomen/Pelvis CT 04/10/18 00:00 CONCLUSION: 1. Findings in the patient's chest discussed on the patient's chest CT. 2. Left renal stone without hydronephrosis. 3. Slight AAA. 4. Possible gallstones within the gallbladder. 5. There is slight fluid within the peritoneal cavity in the pelvis and within left perinephric space and stranding densities involving the Gerota's fascia on the left side. The exact etiology is not certain could be inflammatory, and there is no hydronephrosis. Chest CT 04/10/18 00:00 CONCLUSION: 1. Significant worsening of the patient's lungs with interval development of numerous nodules multiple cavitary lesions which demonstrate air-fluid levels within them characteristic of a very aggressive infectious process destroying the patient's lungs could be seen with necrotizing MRSA, however the appearance is nonspecific. Chest X-Ray 04/10/18 08:03 CONCLUSION: Slight interval worsening right basilar consolidation and persistent stable right upper lobe and left basilar consolidations. Head MRI 04/12/18 00:00 CONCLUSION: 1. Some chronic changes with mild cortical and central atrophy. Minimal periventricular and scattered deep white matter tract areas of small vessel ischemic demyelination. 2. Some fluid or secretions identified in the dependent portion of the nasopharynx. 3. Otherwise negative. No findings of intracranial mass lesion/abscess. Lumbar Spine MRI 04/12/18 00:00 CONCLUSION: 1. No evidence of epidural abscess. 2. Grade 1 anterolisthesis at L5-S1 with associated discogenic degenerative changes and bilateral pars defects. There is significant bilateral bony neural foraminal stenosis with bilateral neural impingement. 3. Asymmetric ligamentum flavum hypertrophy on the right side at the L4-5 level flattens the dorsal lateral aspect of the thecal sac. Neural foramen remain patent. 4. Suggestion of distended urinary bladder, incompletely imaged in the field-of -view. Thoracic Spine MRI 04/12/18 00:00 CONCLUSION: 1. Small bilateral pleural effusions. 2. Spinal canal is widely patent throughout without cord compromise. No findings of a paravertebral abscess. Abdomen X-Ray 04/12/18 09:42 CONCLUSION: No evidence of ileus. Chest X-Ray 04/13/18 00:00 CONCLUSION: 1. No significant interval change. 2. Stable ETT and NGT. 3. Stable right upper lobe airspace consolidation. 4. Stable bilateral lower lobe patchy airspace disease. Gallium Scan Nuclear Medicine 04/13/18 00:00 CONCLUSION: 1. There is abnormal uptake in the lungs corresponding to cavitary lesions probably lung abscesses and areas of consolidation seen on the patient's prior chest CT. Chest X-Ray 04/15/18 08:47 CONCLUSION: 1. Bilateral airspace disease with consolidation/fibrosis in the right upper lung, cavitary lesion in the left upper lobe and bibasilar airspace disease, left worse than right. There is actually some improving aeration in the right lung base. 2. Questionable pleural reflection in the left upper lobe. Cannot exclude a small pneumothorax. Repeat chest radiograph in expiration for reevaluation. 3. Interval removal of life-support tubes including the endotracheal and nasogastric tubes. Chest X-Ray 04/16/18 09:11 CONCLUSION: Stable chest appearance with bilateral infiltrates and small suspected left apical pneumothorax Chest CT 04/16/18 10:15 CONCLUSION: 1. A 23 mm left sided pneumothorax is identified. 2. Multiple cavitary lesions are again noted and slightly worse in appearance than on the previous examination. 3. Consolidation of the right upper lobe is again noted and [demonstrates] worsening cavitation. 4. Increased cavitation of the large left upper lobe lesion also. 5. Small partially loculated pleural effusions are noted. 6. Bibasilar alveolar consolidations are noted posteriorly consistent with probable atelectasis. 7. Tiny pericardial effusion is noted. 8. Degenerative changes are noted throughout the thoracic and upper lumbar spine. Chest X-Ray 04/16/18 13:47 CONCLUSION: 1. Tiny 6 mm left apical pneumothorax is still noted status post left chest tube placement. 2. Stable scattered cavitary lesions. 3. Small bilateral pleural effusions. Chest X-Ray 04/17/18 07:00 CONCLUSION: 1. Very small left apical pneumothorax, slightly decreased from the prior study. 2. Left-sided chest tube remains in place. 3. No change in bilateral pulmonary opacities. Chest X-Ray 04/20/18 00:00 CONCLUSION: 1. Persistent and unchanged bilateral pulmonary consolidations. 2. No pneumothorax. Chest X-Ray 04/22/18 07:00 CONCLUSION: No significant change compared to 04/20/2018. Chest X-Ray 04/24/18 00:00 CONCLUSION: 1. Moderate to large right-sided pneumothorax. Chest X-Ray 04/24/18 00:00 CONCLUSION: Right-sided chest tube in good position. No significant residual pneumothorax is identified. Elongated infiltrate right upper lobe is unchanged Chest X-Ray 04/24/18 07:01 CONCLUSION: Elongated density in the right lung apex. Left chest tube in stable position. Chest X-Ray 04/24/18 11:47 CONCLUSION: 1. Tiny left apical pneumothorax following left chest tube removal. 2. Bilateral cavitary lesions and airspace opacities are stable. Chest X-Ray 04/26/18 00:00 CONCLUSION: Moderate to large right pleural effusion has redeveloped and with a probable slight tension component. Small-caliber right chest tube remains in place. Chest X-Ray 04/26/18 16:57 CONCLUSION: Reexpansion of the right lung with no evidence of residual pneumothorax. Chest X-Ray 04/27/18 06:00 CONCLUSION: Right chest tube remains in place with small residual right pneumothorax and bilateral patchy airspace disease. Chest X-Ray 04/28/18 07:00 CONCLUSION: Small-caliber right chest tube as above with probable small right basilar pneumothorax, stable. Stable bilateral airspace disease. Chest X-Ray 04/29/18 00:00 CONCLUSION: Suspected development of areas of pneumothorax of the right upper lung despite a right chest tube. Suspected area of scarring over the right upper lung. Increased density at the mid and lower right chest related to consolidation, atelectasis and/or effusion. There may be some subpulmonic air seen on the right side. Left base atelectasis or consolidation with a possible minimal left pleural effusion. This information will be relayed to the floor. Chest X-Ray 04/30/18 07:00 CONCLUSION: Small-caliber right chest tube with probable loculated right pneumothorax. Right pleural effusion. Findings are similar to April 29. Chest CT 04/30/18 15:36 CONCLUSION: 1. Right-sided pigtail catheter identified in the right mid chest with a very large right-sided pneumothorax remaining. There is extensive consolidation throughout the only aerated portions of the right lung with debris in the right bronchus and bronchus intermedius. Bronchoscopy would be helpful to better evaluate the bronchial contents. 2. There is multiloculated fluid collections in the right lower lobe and the right inferior lateral costophrenic angle could be multiloculated infection. 3. Small pleural effusion and some pleural thickening of the left chest. Chest X-Ray 04/30/18 15:46 CONCLUSION: ET tube has been placed in excellent position between the clavicles and the haseeb. Extensive fluid and air throughout the right thoracic cavity. Right- sided pigtail catheter of the mid chest in good position Chest X-Ray 05/01/18 06:00 CONCLUSION: 1. Prominent right-sided pneumothorax with small caliber chest tube. 2. Pleural-parenchymal densities throughout the right lung. 3. Patchy densities in the left lung. Chest X-Ray 05/01/18 09:52 CONCLUSION: Interval resolution of a loculated right pneumothorax along the lateral chest wall following chest tube placement. Persistent moderate-sized loculated pneumothorax in the right paramediastinal region of the upper lung field. Chest CT 05/02/18 00:00 CONCLUSION: 1. Overall improving exam with improved aeration of the right hemithorax. Persistent areas of loculated pleural effusion. These demonstrate foci of air within the right lower lobe and are concerning for abscess. Airspace abnormalities within the left hemithorax appears stable to smaller in size from prior exam. Chest X-Ray 05/02/18 06:00 CONCLUSION: Right chest tube. A pneumothorax is not clearly seen on this examination. Increased density in the right hilar region extending into the right upper lobe. Central mass could have this appearance. Suspected consolidation and/or atelectasis at the right base. Mild right pleural effusion. Minimal increased density at the lateral left base. Linear density seen in the left upper lobe which could be from scarring. Chest X-Ray 05/03/18 00:00 CONCLUSION: Lines and tubes appear appropriate in position. There is increased size of a right apical pneumothorax and increased pleural fluid. Resolving right-sided subcutaneous emphysema. Chest X-Ray 05/04/18 06:00 CONCLUSION: 1. No significant change is appreciated. Right chest tube remains present and there is a persistent right pneumothorax. 2. Stable right basilar opacity characteristic of pleural effusion with associated volume loss and/or airspace consolidation. The right upper lobe opacity is also stable. Chest X-Ray 05/05/18 06:00 CONCLUSION: 1. Stable right pleural effusion associated volume loss and/or airspace consolidation. 2. Right chest tube remains present and no pneumothorax is visualized. Chest X-Ray 05/05/18 13:31 CONCLUSION: 1. There appears to be a very small right-sided loculated pneumothorax in the right costophrenic angle with 9 mm of separation. There is a right-sided chest tube in place. 2. No change in the streaky parenchymal infiltrates in the right lung. Chest X-Ray 05/06/18 13:31 CONCLUSION: Support equipment in satisfactory position. There are [address] on the right. No significant residual pneumothorax identified. Chest X-Ray 05/07/18 00:00 CONCLUSION: No significant interval change. No evidence of pneumothorax. Chest X-Ray 05/07/18 06:00 CONCLUSION: 1. 2 right chest tubes are present and no pneumothorax is visualized. 2. Stable right apex parenchymal opacity and small right basilar opacity. Chest X-Ray 05/11/18 06:46 CONCLUSION: Significant deterioration appearance of the chest as above Findings discussed with Dr. Sejal Nagy Chest X-Ray 05/11/18 09:53 CONCLUSION: Improved aeration of the right lung with residual patchy areas of infiltrate in the upper and lower lungs and residual moderate size pleural effusion. No pneumothorax seen. Chest X-Ray 05/12/18 07:30 CONCLUSION: Slight left lung base atelectasis and/or infiltrate is seen not present previously, otherwise not changed . Chest X-Ray 05/13/18 00:00 CONCLUSION: Possible small loculated air collection on the right following removal of chest tube. Lower chest tube in good position. Otherwise no significant interval change. Chest X-Ray 05/13/18 05:00 CONCLUSION: Improving aeration Chest X-Ray 05/14/18 06:00 CONCLUSION: Slight interval worsening in aeration. Chest CT 05/15/18 06:00 CONCLUSION: 1. There is a small right-sided hydropneumothorax present only in the right cardiophrenic angle. No evidence of a left-sided pleural effusion. 2. The bulk of the consolidation in the right lower lung is parenchymal consolidation and not effusion. 3. Increasing patchy infiltrates are now noted throughout the right lung compared to the prior study. Stable patchy infiltrates in the left lung base compared to the prior study. 4. There is some increased cavitation of the parenchymal masslike density in the right apex. Chest X-Ray 05/15/18 06:00 CONCLUSION: Thoracostomy tube removal with continued improvement in aeration. Chest X-Ray 05/16/18 06:00 CONCLUSION: No significant change Objective Remarks: GENERAL: This is a 72-year-old male currently resting in bed on nasal cannula in no acute distress SKIN: Warm and dry. No rash HEAD: Atraumatic. Normocephalic. EYES: Pupils equal and round. No scleral icterus. ENT: No nasal bleeding or discharge. Mucous membranes moist. NECK: Trachea midline. No JVD. CARDIOVASCULAR: S1-S2 normal no murmur RESPIRATORY: Air entry decreased on the right compared to left side, scattered rhonchi bilaterally. Dressing over surgical site. Chest tube x2 to the right with no airleak. Anterior chest tube to be removed today by CT surgery GASTROINTESTINAL: Abdomen soft, non-tender, nondistended. no guarding. MUSCULOSKELETAL: Extremities without clubbing, cyanosis, or edema. No obvious deformities. NEUROLOGICAL: Awake, alert, following commands. Moves all extremities and appropriate Assessment and Plan - Problem List (1) COPD with acute exacerbation Code(s): J44.1 - Chronic obstructive pulmonary disease with (acute) exacerbation Status: Acute (2) Bilateral pneumonia Code(s): J18.9 - Pneumonia, unspecified organism Status: Acute (3) Allergic reaction caused by a drug Code(s): T78.40XA - Allergy, unspecified, initial encounter Status: Acute (4) Acute respiratory failure Code(s): J96.00 - Acute respiratory failure, unspecified whether with hypoxia or hypercapnia Status: Acute (5) Severe sepsis Code(s): A41.9 - Sepsis, unspecified organism; R65.20 - Severe sepsis without septic shock Status: Acute (6) Leukocytosis Code(s): D72.829 - Elevated white blood cell count, unspecified Status: Acute (7) Hypotension Code(s): I95.9 - Hypotension, unspecified Status: Acute (8) Acute kidney injury Code(s): N17.9 - Acute kidney failure, unspecified Status: Acute (9) Hyponatremia Code(s): E87.1 - Hypo-osmolality and hyponatremia Status: Acute (10) Hyperglycemia Code(s): R73.9 - Hyperglycemia, unspecified Status: Acute (11) History of hypertension Code(s): Z86.79 - Personal history of other diseases of the circulatory system Status: Chronic (12) Tobacco abuse Code(s): Z72.0 - Tobacco use Status: Chronic (13) History of COPD Code(s): Z87.09 - Personal history of other diseases of the respiratory system Status: Chronic - Assessment and Plan Plan: Neuro/Psych -Acetaminophen 650 p.o. every 6 hours as needed fever -Hydrocodone/acetaminophen 5/325 1 tablet every 4 hours as needed pain 1 through 5 - Morphine sulfate 2 mg IV every 2 hours as needed pain 6 through 10 RESP: Acute hypoxemic respiratory failure Persistent right-sided pneumothorax Right-sided complicated pleural effusion, probable empyema History of COPD Tobaccoism Left lower lobe 1.5 cm pulmonary nodule. Outpatient PET scan -Extubated on 05/09. Chest x-ray from 05/11 showed white out on the right side suggesting atelectasis, suspect mucous plugging. -s/p intubation followed by bronchoscopy and BAL with removal of significant mucous plugs from right mainstem bronchus and subsequent extubation on 05/11 -Albuterol/ipratropium aerosols every 4 hours with albuterol aerosols every 2 as needed dyspnea -EZ Pap every 4 hours -CT of the chest 04/30/2018 shows large persistent right pneumothorax pl effusion and significant right lower lung consolidation with probable cavitation /abscess -s/p 28 Palestinian chest tube to the right side, now with reexpansion of the lung but continued air leak -Dr. Carey did bronchoscopy- large amount of mucus plugging removed from right upper lobe -Repeat CT chest shows good reexpansion of the right lung. Persistent hydropneumothorax apically and right lower lung region. Loculated hydropneumothorax may be empyema -Status post right VATS with decortication 05/05/2018 -Continue antibiotics per ID -Anterior chest tube was removed 05/13. Last right-sided chest removed by CT surgery 05/14. Plans CT chest today 05/15 CV: Essential hypertension Coronary artery disease Grade 1 diastolic dysfunction -Currently metoprolol tartrate 50 mg twice daily/150 twice daily at home- holding lisinopril 40 mg by mouth daily for hypertension. -2D echocardiogram 04/06/2018 revealed grade 1 diastolic dysfunction GI -Cardiac diet -Famotidine for GI prophylaxis -Docusate sodium 100 mg 1 tablet twice daily for bowel regimen Renal/: -Monitor creatinine daily. Follow trends -Monitor urine output -Accurate I's and O's. ID: Status post right VATS 05/05/2018 MRSA pneumonia with probable lung abscess (Zyvox resistant) Severe necrotizing pneumonia Probable septic emboli to the left lung MRSA bacteremia MRSA pneumonia -Antibiotics per ID. Currently on ceftaroline and clindamycin for linezolid resistant staph aureus Anaphylaxis to vancomycin noted -Further cultures per ID -Dwehzzurbjfr-brjepi-ec cultures negative -Status post right VATS with decortication on 05/05 -Blood cultures MRSA. -Sputum 04/28 MRSA -Tissue culture 05/05 MRSA HEME: Leukocytosis Normocytic anemia -Monitor CBC, coags -No indication for transfusion of blood products at this time ENDO/FEN: -Electrolyte replacement per protocol. 30 mmol potassium phosphate and 30 mEq KCl x1 now. Recheck in a.m. -Sliding scale insulin if needed PROPH: -Bilateral lower extremity SCDs. /famotidine. Resumed enoxaparin 05/07 LINES: -Utilize peripheral IVs, right subclavian central line placed 05/01/18. Discontinued Level 2 follow-up (2) Bilateral pneumonia Qualifiers: Pneumonia type: due to unspecified organism Lung location: unspecified part of lung Qualified Code(s): J18.9 - Pneumonia, unspecified organism (3) Allergic reaction caused by a drug Qualifiers: Encounter type: initial encounter Qualified Code(s): T78.40XA - Allergy, unspecified, initial encounter (4) Acute respiratory failure Qualifiers: Respiratory failure complication: unspecified whether with hypoxia or hypercapnia Qualified Code(s): J96.00 - Acute respiratory failure, unspecified whether with hypoxia or hypercapnia (6) Leukocytosis Qualifiers: Leukocytosis type: unspecified Qualified Code(s): D72.829 - Elevated white blood cell count, unspecified (7) Hypotension Qualifiers: Hypotension type: unspecified hypotension type Qualified Code(s): I95.9 - Hypotension, unspecified
[2018-05-16] MEDS ORDERED: MAGNESIUM SULFATE IV.SIG ONE ×2 (15:00)
[2018-05-16] MEDS ORDERED: DEXTROSE 5% IV.SIG ONE ×2 (15:00)
[2018-05-16] MEDS ORDERED: WATER IV.SIG ONE ×2 (15:00)
[2018-05-17] MEDS: Clindamycin 900 mg/NS Premix 900 MG/50 ML PIGGYBACK IV.SIG SCH ×3 (01:25→17:37)
[2018-05-17] MEDS: Oral Hygiene Kit OROPHARYNG SCH ×3 (03:47→16:33)
[2018-05-17 06:03] LABS: Baso # (Auto) 0.1 th/mm3 (0.0-0.2); Baso % (Auto) 0.7 % (0.0-2.0); Eos # (Auto) 0.5 th/mm3 (0.0-0.4); Eos % (Auto) 4.1 % (0.0-4.0); Hematocrit 34.4 % (39.0-51.0); Hemoglobin 11.3 gm/dL (13.0-17.0); Lymph # (Auto) 0.5 th/mm3 (1.0-4.8); Lymph % (Auto) 4.5 % (9.0-44.0); Mean Corpuscular HGB Conc 32.8 % (32.0-36.0); Mean Corpuscular Volume 88.4 fL (80.0-100.0); Mean Platelet Volume 8.1 fL (7.0-11.0); Mono # (Auto) 0.9 th/mm3 (0.0-0.9); Mono % (Auto) 7.4 % (0.0-8.0); Neut % (Auto) 83.3 % (16.0-70.0); Platelet Count 453 th/mm3 (150-450); Red Blood Count 3.89 mil/mm3 (4.50-5.90); Red Cell Distribution Width 15.5 % (11.6-17.2)
--- NOTE | 2018-05-17 06:03 | XR ---
EXAM DATE: 05/17/2018 5:51 AM EST AGE/SEX: 72 years / Male INDICATIONS: Shortness of breath, possible pulmonary disease. CLINICAL DATA: This is the patient's subsequent encounter. Patient reports that signs and symptoms h ave been present for 1 month and indicates a pain score of Nonresponsive. MEDICAL/SURGICAL HISTORY: Hypertension. Chronic obstructive pulmonary disease. MRSA. . Chest tubes. COMPARISON: [facility] – [place], CHEST 1V SINGLE AP, 05/16/2018. . FINDINGS: Coarse interstitial infiltrates throughout both lungs with superimposed focal streaky pleural parench ymal disease in the right apex and consolidation and effusion at the right base. CONCLUSION: Little change from yesterday's exam Electronically signed by: Akash Capone MD Board Certified Radiologist 05/17/2018 6:02 AM EST
[2018-05-17 06:12] LABS: Albumin 1.6 g/dL (3.4-5.0); Anion Gap 6 meq/L (5-15); Aspartate Aminotransferase 19 U/L (15-37); Blood Urea Nitrogen 10 mg/dL (7-18); Calcium 8.4 mg/dL (8.5-10.1); Carbon Dioxide 33.8 meq/L (21.0-32.0); Chloride 98 meq/L (98-107); Glomerular Filtration Rate Greater Than 89 mL/min (>89); Glucose,Random 98 mg/dL (74-106); Magnesium 2.1 mg/dL (1.5-2.5); Potassium 3.7 meq/L (3.5-5.1); Sodium 138 meq/L (136-145)
[2018-05-17 06:16] LABS: Alanine Aminotransferase 22 U/L (12-78); Alkaline Phosphatase 93 U/L (45-117); Phosphorus 2.3 mg/dL (2.5-4.9); Total Protein 5.8 g/dL (6.4-8.2)
--- NOTE | 2018-05-17 07:58 | P.PNPL ---
Subjective Interval history: Patient remains on 50% VM, afebrile, tachycardic. Physical Exam Vital signs: Vital Signs 05/16/18 08:00 05/16/18 09:00 05/16/18 10:00 Temperature Pulse Rate 127 H 102 H 101 H Respiratory Rate 34 H 30 H 35 H Blood Pressure 112/80 109/65 Pulse Oximetry 91 L 94 L 95 05/16/18 10:01 05/16/18 11:00 05/16/18 11:13 Temperature Pulse Rate 102 H 102 H 104 H Respiratory Rate 34 H 31 H 30 H Blood Pressure 108/78 89/65 L Pulse Oximetry 92 L 93 L 91 L 05/16/18 11:33 05/16/18 12:00 05/16/18 13:00 Temperature Pulse Rate 101 H 101 H 102 H Respiratory Rate 24 27 H 23 Blood Pressure 98/61 L 102/64 Pulse Oximetry 98 93 L 05/16/18 14:00 05/16/18 15:00 05/16/18 15:54 Temperature Pulse Rate 107 H 112 H 108 H Respiratory Rate 27 H 32 H 20 Blood Pressure 102/63 109/66 Pulse Oximetry 95 94 L 05/16/18 16:00 05/16/18 17:00 05/16/18 18:00 Temperature Pulse Rate 117 H 118 H 114 H Respiratory Rate 29 H 30 H 26 H Blood Pressure 111/65 108/69 100/65 Pulse Oximetry 94 L 95 95 05/16/18 19:00 05/16/18 20:00 05/16/18 20:08 Temperature 99.2 F Pulse Rate 120 H 120 H 118 H Respiratory Rate 33 H 34 H 22 Blood Pressure 105/71 Pulse Oximetry 95 91 L 93 L 05/16/18 20:10 05/16/18 21:00 05/16/18 22:00 Temperature Pulse Rate 118 H 120 H 109 H Respiratory Rate 34 H 34 H 34 H Blood Pressure 118/73 Pulse Oximetry 96 92 L 93 L 05/16/18 22:34 05/16/18 23:00 05/16/18 23:31 Temperature Pulse Rate 107 H 107 H 103 H Respiratory Rate 30 H 22 20 Blood Pressure 109/59 L 99/61 L Pulse Oximetry 93 L 94 L 05/17/18 00:00 05/17/18 00:01 05/17/18 01:00 Temperature 98.8 F Pulse Rate 113 H 112 H 106 H Respiratory Rate 35 H 33 H 29 H Blood Pressure 110/76 106/65 Pulse Oximetry 95 94 L 99 05/17/18 02:00 05/17/18 03:00 05/17/18 04:00 Temperature 98.6 F Pulse Rate 107 H 107 H 113 H Respiratory Rate 29 H 27 H 34 H Blood Pressure 108/71 102/72 114/73 Pulse Oximetry 98 98 91 L 05/17/18 04:36 05/17/18 05:00 05/17/18 06:00 Temperature Pulse Rate 109 H 111 H 122 H Respiratory Rate 19 31 H Blood Pressure 112/72 Pulse Oximetry 100 Intake & Output 05/16/18 05/17/18 05/17/18 18:59 06:59 18:59 Intake Total 570 / 570 640 / 640 Output Total 500 / 500 700 / 700 Balance 70 / 70 -60 / -60 Weight 72.3 kg Intake: IV 150 / 150 400 / 400 Teflaro Inj 600 MG In NS Inj 100 / 100 200 / 200 100 ML @ 100 mls/hr IV.SIG Q8H [facility] Rx#:[id number] Cleocin 900 mg/NS Premix 900 mg 50 / 50 100 / 100 In 50 ml @ 100 mls/hr IV.SIG Q8H [facility] Rx#:[id number] Magnesium Sulfate Inj 4 GM In 100 / 100 NS Inj 92 ML @ 50 mls/hr IV.SIG UNSCH PRN Rx#:[id number] Oral 420 / 420 240 / 240 Output: Urine 500 / 500 700 / 700 Other: Date of Last Bowel Movement 05/12/18 - Constitutional no acute distress - Routine HEENT Exam Head: Present: normocephalic, atraumatic Eye: Present: EOMI, PERRL, normal accommodation, conjunctivae pink ENT: Present: mucous membranes moist - Routine Neck Exam Present: supple, full ROM, trachea midline - Routine Respiratory Exam Present: CTA bilaterally - Routine Cardiovascular Exam Present: S1, S2, tachycardia - Routine Abdominal Exam Present: soft, normoactive bowel sounds - Routine Extremities Exam Present: edema, full ROM, pulses intact - Routine Skin Exam Present: intact - Routine Neurological Exam Present: alert, oriented X3, CN II-XII intact - Urinary Catheter Management Indwelling Urethral Catheter Cath placed during this visit: yes, but has since been removed by the nurse Reason for continuing: Acute urinary retention Insertion date: 04/05/18 Insertion time: 23:00 Removal date: 04/12/18 Removal time: 08:30 Condom Cath placed during this visit: no Reason for continuing: Acute urinary retention Straight Cath placed during this visit: yes, but has since been removed by the nurse Reason for continuing: Not indwelling catheter Insertion date: 05/06/18 Insertion time: 18:00 Removal date: 05/06/18 Removal time: 18:10 Indwelling Temp Sensing Catheter Cath placed during this visit: yes, but has since been removed by the nurse Reason for continuing: Hourly intake/output Insertion date: 05/05/18 Insertion time: 12:15 Removal date: 05/05/18 Removal time: 15:00 Assessment and Plan - Assessment (1) COPD with acute exacerbation Code(s): J44.1 - Chronic obstructive pulmonary disease with (acute) exacerbation Status: Acute (2) Bilateral pneumonia Code(s): J18.9 - Pneumonia, unspecified organism Status: Acute Qualifiers: Pneumonia type: due to unspecified organism Lung location: unspecified part of lung Qualified Code(s): J18.9 - Pneumonia, unspecified organism (3) Allergic reaction caused by a drug Code(s): T78.40XA - Allergy, unspecified, initial encounter Status: Acute Qualifiers: Encounter type: initial encounter Qualified Code(s): T78.40XA - Allergy, unspecified, initial encounter (4) Acute respiratory failure Code(s): J96.00 - Acute respiratory failure, unspecified whether with hypoxia or hypercapnia Status: Acute Qualifiers: Respiratory failure complication: unspecified whether with hypoxia or hypercapnia Qualified Code(s): J96.00 - Acute respiratory failure, unspecified whether with hypoxia or hypercapnia (5) Severe sepsis Code(s): A41.9 - Sepsis, unspecified organism; R65.20 - Severe sepsis without septic shock Status: Acute (6) Leukocytosis Code(s): D72.829 - Elevated white blood cell count, unspecified Status: Acute Qualifiers: Leukocytosis type: unspecified Qualified Code(s): D72.829 - Elevated white blood cell count, unspecified (7) Hypotension Code(s): I95.9 - Hypotension, unspecified Status: Acute Qualifiers: Hypotension type: unspecified hypotension type Qualified Code(s): I95.9 - Hypotension, unspecified (8) Acute kidney injury Code(s): N17.9 - Acute kidney failure, unspecified Status: Acute (9) Hyponatremia Code(s): E87.1 - Hypo-osmolality and hyponatremia Status: Acute (10) Hyperglycemia Code(s): R73.9 - Hyperglycemia, unspecified Status: Acute (11) History of hypertension Code(s): Z86.79 - Personal history of other diseases of the circulatory system Status: Chronic (12) Tobacco abuse Code(s): Z72.0 - Tobacco use Status: Chronic (13) History of COPD Code(s): Z87.09 - Personal history of other diseases of the respiratory system Status: Chronic - Plan 1)Acute hypoxemic respiratory failure 2)s/p right VATS 3) COPD 4)Tobaccoism 5)Left lower lobe 1.5 cm pulmonary nodule. Outpatient PET scan 6)MRSA cavitary pneumonia/bacteremia PLAN: Wean down oxygen as naye keep sats >92% Bronchodilators CXR today-Coarse interstitial infiltrates throughout both lungs with superimposed focal streaky pleural parenchymal disease in the right apex and consolidation at the right base. Diurese with Bumex 1mg x1 and place on Solumederol 40mg IV Q6 x 4 doses. Abx per ID Teflaro, Clindamycin, ID is following GI/DVT prophylaxis - On Pepcid and Lovenox respectively Continue treatment plan.
[2018-05-17] MEDS: Enoxaparin Inj 40 MG/0.4 ML Syringe SQ SCH (09:03)
[2018-05-17] MEDS: guaiFENesin 600 MG ER Tablet PO SCH ×2 (09:04→20:21)
[2018-05-17] MEDS: Docusate Sodium 100 MG Capsule PO SCH ×2 (09:04→20:21)
[2018-05-17] MEDS: Chlorhexidine 0.12% Oral Kit 15 ML UDC OROPHARYNG SCH ×2 (09:04→20:21)
[2018-05-17] MEDS: Metoprolol Tartrate 100 MG Tablet PO SCH ×2 (09:04→20:21)
[2018-05-17] MEDS: Sodium Chloride 0.9% 2 ML Flush BID IV.FLUSH SCH ×2 (09:05→20:22)
[2018-05-17] MEDS: Famotidine PF Inj 20 MG/2 ML Vial IV.PUSH SCH ×2 (09:06→20:22)
[2018-05-17] MEDS: Collagenase Oint 30 GM Tube TOPICAL SCH (09:07)
--- NOTE | 2018-05-17 09:42 | P.PNCC ---
Subjective Subjective Remarks/Hospital Course: Patient is 72-year-old male with past medical history of COPD, tobacco abuse and hypertension who came to the emergency room for shortness of breath via EMS. On EMS arrival saturation was in the 90s, but patient had significant shortness of breath and dyspnea. Patient received Solu-Medrol 125 mg IV and breathing treatments by EMS and was brought to the emergency department. In the emergency department patient received further breathing treatments and chest x-ray showed patchy infiltrate on bilateral lung fitzgerald. Initially maintaining oxygen saturation with nasal cannula. Initial blood pressure was 85 /65, improved with normal saline boluses. WBC count was 17.1. Patient was deemed septic from pneumonia and patient was ordered to receive vancomycin and Zosyn. While receiving vancomycin patient acutely decompensated became extremely short of breath and developed erythematous maculopapular rash involving face torso armpits and groin region. Emergently intubated and placed on mechanical ventilation by the ED physician. Received IV 50 mg Benadryl. Critical care medicine was requested to admit the patient. I evaluated the patient immediately in the emergency department. Patient is intubated on Versed and fentanyl infusion however he is very asynchronous with the vent triggering ventilator alarms. Severe bilateral expiratory wheezing heard on auscultation. He has extensive skin rash predominantly face forehead torso armpit and groins. Appears like patient had anaphylactic reaction to vancomycin complicated by COPD exacerbation and pneumonia. I have ordered additional Solu-Medrol 100 mg x1 scheduled Benadryl and famotidine, antibiotics with cefepime and Levaquin. Increase Versed infusion, add propofol and use neuromuscular paralysis as needed. Will request pharmacy to add vancomycin to allergy. ED physician Dr. Slater had noticed that patient had some swelling on the left side of his face on arrival, however the skin rash after vancomycin was started was new. Patient remains hypotensive has received 2 L of normal saline in the emergency department and no significant urine output. I have ordered additional 2 L normal saline bolus and maintenance fluid at 84 mL/h. Use Levophed as needed to keep map above 65 Subjective 04/06: Off norepinephrine drip. Currently resting in bed in no acute distress on midazolam and fentanyl drips. Start tube feeding today. 04/07: Remains sedated, intubated on mechanical ventilation. Blood cultures growing MRSA 04/08: remains sedated and intubated. repeat cultures still growing MRSA 2/4 cultures. likely need to repeat BCx either today or tomorrow. agree with narrowing spectrum abx. performed DEEDEE at ID recommendation (need to r/o endocarditis), but no evidence of vegetations. remains hypoxic. off vasopressors today. 04/09: adequate auto-diuresis overnight. off vasopressors. on sedation vacation. hypoxia improving. 04/10 Patient remains intubated and sedated with Fentanyl infusion. Became tachycardic and tachypneic overnight requiring increase sedation. Afebrile. 04/11 Patient is intubated and sedated. Afebrile. 04/12 Patient remains intubated and sedated with Diprivan and Fentanyl infusion, Afebrile. 04/13: Sedated, easily arousable, orally intubated on mechanical ventilation. 04/14 Patient was extubated yesterday. Afebrile. 04/15 Patient is lying in bed in NAD. On 3L oxygen. Awake and alert. 04/16 Patient is on partial rebreather. Afebrile. Awake and alert. 04/17: Left-sided chest tube placed for pneumothorax yesterday. On nasal cannula currently. Awake and alert. Appears comfortable. No air leak noted in Pleur-evac 04/18: Remains on nasal cannula. No air leak noted from left-sided chest tube. 04/19: On 5 L nasal cannula. Chest tube in place, no air leak noted. Resting in bed comfortably, no acute distress. Continues to have productive cough. 04/20: Remains on nasal cannula. Chest tube in place, no air leak noted. Resting in bed comfortably. 04/24: RECONSULT NOTE: called emergently by Hospitalist team. patient with new acute respiratory distress. Chest x-ray demonstrates new large right-sided pneumothorax. I went to evaluate the patient is seen in significant distress. I emergently placed right-sided pigtail chest tube. Significant denney of air with no air leak on chest tube. Respiratory distress improved after chest tube placement. Repeat interval chest x-ray demonstrates good placement of chest tube with resolution of pneumothorax. 04/26/18: RECONSULT NOTE: [facility] reconsulted for rexpansion of right pneumothorax. Patient developed increased SOB today without improvement with nebulizer. STAT CXR Moderate to large right pneumothorax has redeveloped and with a probable tension component. He appears to be in moderate distress tachypneic. Patient was moved to the ICU where I evaluated the patient emergently. The right pigtail chest tube is still in place, minimal air leak. I flushed the chest tube but was difficult to withdraw air. I then pulled back the chest tube by approximately 3 cm. Able to withdraw air more easily and on connection to the Vacutainer again there was significant air leak in all chambers. Patient subjectively felt improvement in shortness of breath after chest tube placement. Stat repeat chest x-ray shows near complete reexpansion of the right knee 04/30/18: [facility] RECONSULT NOTE: Critical care, reconsult for worsening respiratory failure. I evaluate the patient urgently. He is very tachypneic diaphoretic. Chest x-ray today showed possible right upper lobe pneumothorax and increasing right effusion. I did an emergent bedside ultrasound which shows probably loculated complicated right pleural effusion. Patient likely needs more further imaging and procedures and in very labored breathing. Proceeded with endotracheal intubation in place patient on mechanical ventilation. I explained plan of care prior to intubation. He understands that he may need emergency chest tube placement and also may need surgical intervention 05/01/18: Patient remains intubated sedated. Hypotensive on 75 mcg/min of Beau- Synephrine. While sedated. CT chest showed severe right lower lung consolidation large pneumothorax/hydropneumothorax on the right side. Plan for large bore chest tube and central line today. Also cardiothoracic surgery was consulted, and I discussed with Dr. Schaeffer. I will plan for a large bore chest tube to the right side followed by a central line placement. 05/02/18: Patient remains intubated heavily sedated for vent synchrony. Right chest tube with large air leak in all chambers. There is possibility of bronchopleural fistula. Chest x-ray shows improved air entry right lung. Discussed with cardiothoracic surgery Dr. Ontiveros today. Will repeat CT scan to see if lung is reexpanding. May need decortication procedure 05/03/18: Patient remains intubated sedated persistent large air leak. CT reviewed with cardiothoracic surgery Dr. Ontiveros. Will discuss with Dr. Schaeffer in a.m. Probably will benefit from decortication due to the hydropneumothorax and persistent pleural effusions which probably are empyema. Otherwise patient remains critically ill clinically same. [facility] cultures growing staph aureus still 05/04/18: Patient remains sedated critically ill. Chest x-ray shows mostly expanded right lung but with persistent loculated apical pneumothorax and right lower effusion. Plan for surgical intervention by Dr. Schaeffer 05/05/2018 possible decortication. Continue broad-spectrum antibiotics 05/05: Remains sedated, orally intubated on mechanical ventilation. Awaiting OR today for decortication and drainage of loculated effusion and possible repair of air leak site. 05/06: Remains sedated, orally intubated on mechanical ventilation. Status post right VATS with decortication on 05/05. [address] on the right with positive air leak. Subcutaneous emphysema decreasing. 05/07: Remains sedated, orally intubated on mechanical ventilation. Status post right VATS with decortication on 05/05. [address] on the right with positive air leak. Starting tube feeds and CPAP trials 05/08: Remains sedated, orally intubated on mechanical ventilation. Air leak persists from right-sided chest tube 05/09: Sedated, arousable, orally intubated on mechanical ventilation. 1+ air leak from right-sided chest tube noted. On CPAP trial. 05/10: Extubated yesterday. Slightly tachypneic. On nonrebreather facemask this morning. Air leak absent from right chest tube. 05/11: Patient on facemask O2. No air leak noted in right-sided chest tubes this morning. Chest x-ray reveals complete whiteout over right lung field raising concern for mucous plugging. Plan for intubation followed by bronchoscopy and BAL and then attempt to extubate patient. 05/12: Patient underwent intubation followed by bronchoscopy and BAL for right mucous plugging on 05/11 with significant mucus plugging noted which was suctioned out with BAL. Patient was subsequently extubated. Chest x-ray following bronchoscopy showed reexpansion of right lung with no pneumothorax and no air leak from chest tube. This morning patient is resting comfortably on 5 L nasal cannula and denies any shortness of breath. No air leak noted from chest tube. 05/13: Remains on nasal cannula maintaining oxygen saturation. Appears deconditioned. Chest x-ray shows improving aeration. Will get physical therapy to mobilize patient out of bed daily. Anterior chest tube to be removed by CT surgery today 05/14: Afebrile. Currently on nonrebreather mask. Aggressive pulmonary toilet initiated. Currently n.p.o. 05/15: Afebrile. Remains on nonrebreather mask but takes off intermittently. Plan for CT thorax exam. Replace potassium and phosphate this a.m. Appears comfortable lying in bed in no acute distress. 05/16: Resting comfortably in bed in no acute distress. Requesting additional physical therapy. Currently 8 L nasal cannula. Increased appetite this morning. Subjective 05/17: Rash this a.m. likely drug rash from ceftaroline. Infectious disease notified. Discontinued. Will reassess. Currently on famotidine, diphenhydramine and methylprednisolone succinate. Remains tachypneic which is stable for him. X-ray stable. Objective Vital Signs / I&O: Vital Signs 05/16/18 10:00 05/16/18 10:01 05/16/18 11:00 Temperature Pulse Rate 101 H 102 H 102 H Respiratory Rate 35 H 34 H 31 H Blood Pressure 108/78 Pulse Oximetry 95 92 L 93 L 05/16/18 11:13 05/16/18 11:33 05/16/18 12:00 Temperature Pulse Rate 104 H 101 H 101 H Respiratory Rate 30 H 24 27 H Blood Pressure 89/65 L 98/61 L Pulse Oximetry 91 L 98 05/16/18 13:00 05/16/18 14:00 05/16/18 15:00 Temperature Pulse Rate 102 H 107 H 112 H Respiratory Rate 23 27 H 32 H Blood Pressure 102/64 102/63 109/66 Pulse Oximetry 93 L 95 94 L 05/16/18 15:54 05/16/18 16:00 05/16/18 17:00 Temperature Pulse Rate 108 H 117 H 118 H Respiratory Rate 20 29 H 30 H Blood Pressure 111/65 108/69 Pulse Oximetry 94 L 95 05/16/18 18:00 05/16/18 19:00 05/16/18 20:00 Temperature 99.2 F Pulse Rate 114 H 120 H 120 H Respiratory Rate 26 H 33 H 34 H Blood Pressure 100/65 105/71 Pulse Oximetry 95 95 91 L 05/16/18 20:08 05/16/18 20:10 05/16/18 21:00 Temperature Pulse Rate 118 H 118 H 120 H Respiratory Rate 22 34 H 34 H Blood Pressure 118/73 Pulse Oximetry 93 L 96 92 L 05/16/18 22:00 05/16/18 22:34 05/16/18 23:00 Temperature Pulse Rate 109 H 107 H 107 H Respiratory Rate 34 H 30 H 22 Blood Pressure 109/59 L 99/61 L Pulse Oximetry 93 L 93 L 94 L 05/16/18 23:31 05/17/18 00:00 05/17/18 00:01 Temperature 98.8 F Pulse Rate 103 H 113 H 112 H Respiratory Rate 20 35 H 33 H Blood Pressure 110/76 Pulse Oximetry 95 94 L 05/17/18 01:00 05/17/18 02:00 05/17/18 03:00 Temperature Pulse Rate 106 H 107 H 107 H Respiratory Rate 29 H 29 H 27 H Blood Pressure 106/65 108/71 102/72 Pulse Oximetry 99 98 98 05/17/18 04:00 05/17/18 04:36 05/17/18 05:00 Temperature 98.6 F Pulse Rate 113 H 109 H 111 H Respiratory Rate 34 H 19 31 H Blood Pressure 114/73 112/72 Pulse Oximetry 91 L 100 05/17/18 06:00 05/17/18 08:14 Temperature Pulse Rate 122 H 123 H Respiratory Rate 24 Blood Pressure Pulse Oximetry 94 L Intake & Output 05/16/18 05/17/18 05/17/18 18:59 06:59 18:59 Intake Total 570 / 570 640 / 640 Output Total 500 / 500 700 / 700 Balance 70 / 70 -60 / -60 Weight 72.3 kg Intake: IV 150 / 150 400 / 400 Teflaro Inj 600 MG In NS Inj 100 / 100 200 / 200 100 ML @ 100 mls/hr IV.SIG Q8H [facility] Rx#:[id number] Cleocin 900 mg/NS Premix 900 mg 50 / 50 100 / 100 In 50 ml @ 100 mls/hr IV.SIG Q8H [facility] Rx#:[id number] Magnesium Sulfate Inj 4 GM In 100 / 100 NS Inj 92 ML @ 50 mls/hr IV.SIG UNSCH PRN Rx#:[id number] Oral 420 / 420 240 / 240 Output: Urine 500 / 500 700 / 700 Other: Date of Last Bowel Movement 05/12/18 Result Diagrams: 05/17/18 05:00 05/17/18 05:00 Other Results: Microbiology 05/01/18 11:00 Bronchial Washings - Right Acid Fast Bacilli Smear - Final No acid fast bacilli seen 05/01/18 11:00 Bronchial Washings - Right Mycobacterial Culture - Preliminary No growth in 2 weeks 05/05/18 12:10 Tissue - Other Acid Fast Bacilli Smear - Final No acid fast bacilli seen 05/05/18 12:10 Tissue - Other Mycobacterial Culture - Preliminary No growth in 1 week 05/05/18 12:10 Tissue - Other Fungal Smear - Final No fungal elements seen 05/05/18 12:10 Tissue - Other Fungal Culture - Preliminary No growth in 1 week 05/05/18 12:50 Fluid - Pleural fluid Fungal Smear - Final No fungal elements seen 05/05/18 12:50 Fluid - Pleural fluid Fungal Culture - Preliminary No growth in 1 week 05/05/18 12:50 Fluid - Pleural fluid Acid Fast Bacilli Smear - Final No acid fast bacilli seen 05/05/18 12:50 Fluid - Pleural fluid Mycobacterial Culture - Preliminary No growth in 1 week 05/05/18 12:10 Tissue - Other Fungal Smear - Final No fungal elements seen 05/05/18 12:10 Tissue - Other Fungal Culture - Preliminary No growth in 1 week 05/05/18 12:10 Tissue - Other Acid Fast Bacilli Smear - Final No acid fast bacilli seen 05/05/18 12:10 Tissue - Other Mycobacterial Culture - Preliminary No growth in 1 week 05/05/18 12:10 Tissue - Other Gram Stain - Final 05/05/18 12:10 Tissue - Other Wound Culture - Final No growth in 72 hours (aerobically and anaerobically ) 05/05/18 12:50 Fluid - Pleural fluid Gram Stain - Final 05/05/18 12:50 Fluid - Pleural fluid Body Fluid Culture - Final No growth in 72 hours (aerobically and anaerobically ) 05/05/18 12:10 Tissue - Other Gram Stain - Final 05/05/18 12:10 Tissue - Other Wound Culture - Final S. aureus MRSA 05/01/18 11:00 Bronchial - Right Gram Stain - Final 05/01/18 11:00 Bronchial - Right Bronchial Culture - Final S. aureus MRSA 05/01/18 11:00 Bronchial Washings - Right Fungal Smear - Final No fungal elements seen 05/01/18 11:00 Bronchial Washings - Right Fungal Culture - Preliminary 04/28/18 05:35 Sputum - Expectorated Sputum Gram Stain - Final 04/28/18 05:35 Sputum - Expectorated Sputum Sputum Culture - Final S. aureus MRSA 04/16/18 04:39 Blood - Peripheral Aerobic Blood Culture - Final No growth in 5 days 04/16/18 04:39 Blood - Peripheral Anaerobic Blood Culture - Final No growth in 5 days 04/16/18 04:27 Blood - Peripheral Aerobic Blood Culture - Final No growth in 5 days 04/16/18 04:27 Blood - Peripheral Anaerobic Blood Culture - Final No growth in 5 days 04/12/18 13:55 Blood - Peripheral Aerobic Blood Culture - Final No growth in 5 days 04/12/18 13:55 Blood - Peripheral Anaerobic Blood Culture - Final No growth in 5 days 04/12/18 13:47 Blood - Peripheral Aerobic Blood Culture - Final No growth in 5 days 04/12/18 13:47 Blood - Peripheral Anaerobic Blood Culture - Final No growth in 5 days 04/10/18 11:42 Blood - Peripheral Aerobic Blood Culture - Final No growth in 5 days 04/10/18 11:42 Blood - Peripheral Anaerobic Blood Culture - Final S. aureus MRSA 04/09/18 08:47 Blood - Peripheral Aerobic Blood Culture - Final No growth in 5 days 04/09/18 08:47 Blood - Peripheral Anaerobic Blood Culture - Final S. aureus MRSA 04/09/18 08:45 Blood - Peripheral Aerobic Blood Culture - Final S. aureus MRSA 04/09/18 08:45 Blood - Peripheral Anaerobic Blood Culture - Final S. aureus MRSA 04/10/18 11:35 Blood - Peripheral Aerobic Blood Culture - Final S. aureus MRSA 04/10/18 11:35 Blood - Peripheral Anaerobic Blood Culture - Final S. aureus MRSA 04/10/18 09:30 Sputum - Endotracheal Gram Stain - Final 04/10/18 09:30 Sputum - Endotracheal Sputum Culture - Final S. aureus MRSA 04/07/18 07:25 Blood - Peripheral Aerobic Blood Culture - Final S. aureus MRSA 04/07/18 07:25 Blood - Peripheral Anaerobic Blood Culture - Final S. aureus MRSA 04/07/18 07:34 Blood - Peripheral Aerobic Blood Culture - Final S. aureus MRSA 04/07/18 07:34 Blood - Peripheral Anaerobic Blood Culture - Final S. aureus MRSA 04/06/18 04:30 Sputum - Endotracheal Gram Stain - Final 04/06/18 04:30 Sputum - Endotracheal Sputum Culture - Final S. aureus MRSA 04/05/18 21:30 Blood - Peripheral Aerobic Blood Culture - Final S. aureus MRSA 04/05/18 21:30 Blood - Peripheral Anaerobic Blood Culture - Final S. aureus MRSA 04/05/18 21:40 Blood - Peripheral Aerobic Blood Culture - Final S. aureus MRSA 04/05/18 21:40 Blood - Peripheral Anaerobic Blood Culture - Final S. aureus MRSA 04/05/18 00:45 Clean Catch Urine Urine Culture - Final No growth in 48 hours 04/05/18 21:55 Nasal Wash Influenza Types A,B Antigen - Final Negative for FLU A and B antigen Infection due to influenza A or B cannot be ruled out since the antigen present in the sample may be below the detection limit of the test. Imaging: ITS Impressions Face CT 04/06/18 00:00 CONCLUSION: 1. Small focal area of soft tissue swelling involving the lateral orbital margin on the left. No abscess. Abdomen/Pelvis CT 04/10/18 00:00 CONCLUSION: 1. Findings in the patient's chest discussed on the patient's chest CT. 2. Left renal stone without hydronephrosis. 3. Slight AAA. 4. Possible gallstones within the gallbladder. 5. There is slight fluid within the peritoneal cavity in the pelvis and within left perinephric space and stranding densities involving the Gerota's fascia on the left side. The exact etiology is not certain could be inflammatory, and there is no hydronephrosis. Head MRI 04/12/18 00:00 CONCLUSION: 1. Some chronic changes with mild cortical and central atrophy. Minimal periventricular and scattered deep white matter tract areas of small vessel ischemic demyelination. 2. Some fluid or secretions identified in the dependent portion of the nasopharynx. 3. Otherwise negative. No findings of intracranial mass lesion/abscess. Lumbar Spine MRI 04/12/18 00:00 CONCLUSION: 1. No evidence of epidural abscess. 2. Grade 1 anterolisthesis at L5-S1 with associated discogenic degenerative changes and bilateral pars defects. There is significant bilateral bony neural foraminal stenosis with bilateral neural impingement. 3. Asymmetric ligamentum flavum hypertrophy on the right side at the L4-5 level flattens the dorsal lateral aspect of the thecal sac. Neural foramen remain patent. 4. Suggestion of distended urinary bladder, incompletely imaged in the field-of -view. Thoracic Spine MRI 04/12/18 00:00 CONCLUSION: 1. Small bilateral pleural effusions. 2. Spinal canal is widely patent throughout without cord compromise. No findings of a paravertebral abscess. Abdomen X-Ray 04/12/18 09:42 CONCLUSION: No evidence of ileus. Gallium Scan Nuclear Medicine 04/13/18 00:00 CONCLUSION: 1. There is abnormal uptake in the lungs corresponding to cavitary lesions probably lung abscesses and areas of consolidation seen on the patient's prior chest CT. Chest CT 05/15/18 06:00 CONCLUSION: 1. There is a small right-sided hydropneumothorax present only in the right cardiophrenic angle. No evidence of a left-sided pleural effusion. 2. The bulk of the consolidation in the right lower lung is parenchymal consolidation and not effusion. 3. Increasing patchy infiltrates are now noted throughout the right lung compared to the prior study. Stable patchy infiltrates in the left lung base compared to the prior study. 4. There is some increased cavitation of the parenchymal masslike density in the right apex. Chest X-Ray 05/17/18 06:00 CONCLUSION: Little change from yesterday's exam Objective Remarks: GENERAL: This is a 72-year-old male currently resting in bed on nasal cannula with some secretions SKIN: Warm and dry. No rash HEAD: Atraumatic. Normocephalic. EYES: Pupils equal and round. No scleral icterus. ENT: No nasal bleeding or discharge. Mucous membranes moist. NECK: Trachea midline. No JVD. CARDIOVASCULAR: S1-S2 normal no murmur RESPIRATORY: Air entry decreased on the right compared to left side, scattered rhonchi bilaterally. Dressing over surgical site. Chest tube x2 to the right with no airleak. Anterior chest tube to be removed today by CT surgery GASTROINTESTINAL: Abdomen soft, non-tender, nondistended. no guarding. MUSCULOSKELETAL: Extremities without clubbing, cyanosis, or edema. No obvious deformities. NEUROLOGICAL: Awake, alert, following commands. Moves all extremities and appropriate Assessment and Plan - Problem List (1) COPD with acute exacerbation Code(s): J44.1 - Chronic obstructive pulmonary disease with (acute) exacerbation Status: Acute (2) Bilateral pneumonia Code(s): J18.9 - Pneumonia, unspecified organism Status: Acute (3) Allergic reaction caused by a drug Code(s): T78.40XA - Allergy, unspecified, initial encounter Status: Acute (4) Acute respiratory failure Code(s): J96.00 - Acute respiratory failure, unspecified whether with hypoxia or hypercapnia Status: Acute (5) Severe sepsis Code(s): A41.9 - Sepsis, unspecified organism; R65.20 - Severe sepsis without septic shock Status: Acute (6) Leukocytosis Code(s): D72.829 - Elevated white blood cell count, unspecified Status: Acute (7) Hypotension Code(s): I95.9 - Hypotension, unspecified Status: Acute (8) Acute kidney injury Code(s): N17.9 - Acute kidney failure, unspecified Status: Acute (9) Hyponatremia Code(s): E87.1 - Hypo-osmolality and hyponatremia Status: Acute (10) Hyperglycemia Code(s): R73.9 - Hyperglycemia, unspecified Status: Acute (11) History of hypertension Code(s): Z86.79 - Personal history of other diseases of the circulatory system Status: Chronic (12) Tobacco abuse Code(s): Z72.0 - Tobacco use Status: Chronic (13) History of COPD Code(s): Z87.09 - Personal history of other diseases of the respiratory system Status: Chronic - Assessment and Plan Plan: Neuro/Psych -Acetaminophen 650 p.o. every 6 hours as needed fever -Hydrocodone/acetaminophen 5/325 1 tablet every 4 hours as needed pain 1 through 5 - Morphine sulfate 2 mg IV every 2 hours as needed pain 6 through 10 RESP: Acute hypoxemic respiratory failure Persistent right-sided pneumothorax Right-sided complicated pleural effusion, probable empyema History of COPD Tobaccoism Left lower lobe 1.5 cm pulmonary nodule. Outpatient PET scan -Extubated on 05/09. Chest x-ray from 05/11 showed white out on the right side suggesting atelectasis, suspect mucous plugging. -s/p intubation followed by bronchoscopy and BAL with removal of significant mucous plugs from right mainstem bronchus and subsequent extubation on 05/11 -Albuterol/ipratropium aerosols every 4 hours with albuterol aerosols every 2 as needed dyspnea -EZ Pap every 4 hours -CT of the chest 04/30/2018 shows large persistent right pneumothorax pl effusion and significant right lower lung consolidation with probable cavitation /abscess -s/p 28 [place] chest tube to the right side, now with reexpansion of the lung but continued air leak -Dr. Carey did bronchoscopy- large amount of mucus plugging removed from right upper lobe -Repeat CT chest shows good reexpansion of the right lung. Persistent hydropneumothorax apically and right lower lung region. Loculated hydropneumothorax may be empyema -Status post right VATS with decortication 05/05/2018 -Continue antibiotics per ID -Anterior chest tube was removed 05/13. Last right-sided chest removed by CT surgery 05/14. Plans CT chest today 05/15 CV: Essential hypertension Coronary artery disease Grade 1 diastolic dysfunction -Currently metoprolol tartrate 50 mg twice daily/150 twice daily at home- holding lisinopril 40 mg by mouth daily for hypertension. -2D echocardiogram 04/06/2018 revealed grade 1 diastolic dysfunction GI -Cardiac diet -Famotidine for GI prophylaxis -Docusate sodium 100 mg 1 tablet twice daily for bowel regimen Renal/: -Monitor creatinine daily. Follow trends -Monitor urine output -Accurate I's and O's. ID: Status post right VATS 05/05/2018 MRSA pneumonia with probable lung abscess (Zyvox resistant) Severe necrotizing pneumonia Probable septic emboli to the left lung MRSA bacteremia MRSA pneumonia -Antibiotics per ID. Currently on ceftaroline and clindamycin for linezolid resistant staph aureus ceftaroline held due to rash. Infectious aware will adjust today. Currently on famotidine/diphenhydramine and methylprednisolone succinate Anaphylaxis to vancomycin noted -Further cultures per ID -Rzhcumeklthr-vsnprh-px cultures negative -Status post right VATS with decortication on 05/05 -Blood cultures MRSA. -Sputum 04/28 MRSA -Tissue culture 05/05 MRSA HEME: Leukocytosis Normocytic anemia Thrombocytosis -Monitor CBC, coags -No indication for transfusion of blood products at this time ENDO/FEN: Hypophosphatemia -Electrolyte replacement per protocol. 30 mmol potassium phosphate now. Recheck in a.m. -Sliding scale insulin if needed PROPH: -Bilateral lower extremity SCDs. /famotidine. Resumed enoxaparin 05/07 LINES: -Utilize peripheral IVs, right subclavian central line placed 05/01/18. Discontinued Level 2 follow-up Code Status: Full code Discussed Condition With: Patient. IMC RN. CARE plan discussed all questions answered (2) Bilateral pneumonia Qualifiers: Pneumonia type: due to unspecified organism Lung location: unspecified part of lung Qualified Code(s): J18.9 - Pneumonia, unspecified organism (3) Allergic reaction caused by a drug Qualifiers: Encounter type: initial encounter Qualified Code(s): T78.40XA - Allergy, unspecified, initial encounter (4) Acute respiratory failure Qualifiers: Respiratory failure complication: unspecified whether with hypoxia or hypercapnia Qualified Code(s): J96.00 - Acute respiratory failure, unspecified whether with hypoxia or hypercapnia (6) Leukocytosis Qualifiers: Leukocytosis type: unspecified Qualified Code(s): D72.829 - Elevated white blood cell count, unspecified (7) Hypotension Qualifiers: Hypotension type: unspecified hypotension type Qualified Code(s): I95.9 - Hypotension, unspecified
[2018-05-17] MEDS ORDERED: Dexamethasone PF Inj 10 MG/ML Vial IV.PUSH ONE (09:45)
[2018-05-17] MEDS ORDERED: Potassium Phosphate Inj 30 MMOL in Sodium Chlor 0.9% Inj 250 ML IV.SIG ONE (11:00)
[2018-05-17] MEDS: MethylPREDNISolone Sod Succinate Inj 40 MG/ML Vial IV.PUSH SCH ×3 (11:03→23:37)
--- NOTE | 2018-05-17 19:53 | P.PNID ---
Subjective Remarks: On ventimask + productive cough and some hemoptysosi developped non pruritic rash, disffuse, torso, estremeties I stopped Teflaro this am and by pm RN noticved rash improvement no fever RESISTANCE to Linezolid was confirmed Antibiotics: n tStopped 05/17 2/2 rash clindamycin added 2/ Lines: Line sites okay Past Medical History: COPD Allergies/Adverse Reactions: Allergies bee venom protein (honey bee) Allergy (Unknown, Verified 04/05/18 21:12) Edema vancomycin Allergy (Verified 04/05/18 23:33) Anaphylaxis Objective Vital Signs 05/16/18 20:00 05/16/18 20:08 05/16/18 20:10 Temperature 99.2 F Pulse Rate 120 H 118 H 118 H Respiratory Rate 34 H 22 34 H Blood Pressure 118/73 Pulse Oximetry 91 L 93 L 96 05/16/18 21:00 05/16/18 22:00 05/16/18 22:34 Temperature Pulse Rate 120 H 109 H 107 H Respiratory Rate 34 H 34 H 30 H Blood Pressure 109/59 L Pulse Oximetry 92 L 93 L 93 L 05/16/18 23:00 05/16/18 23:31 05/17/18 00:00 Temperature 98.8 F Pulse Rate 107 H 103 H 113 H Respiratory Rate 22 20 35 H Blood Pressure 99/61 L Pulse Oximetry 94 L 95 05/17/18 00:01 05/17/18 01:00 05/17/18 02:00 Temperature Pulse Rate 112 H 106 H 107 H Respiratory Rate 33 H 29 H 29 H Blood Pressure 110/76 106/65 108/71 Pulse Oximetry 94 L 99 98 05/17/18 03:00 05/17/18 04:00 05/17/18 04:36 Temperature 98.6 F Pulse Rate 107 H 113 H 109 H Respiratory Rate 27 H 34 H 19 Blood Pressure 102/72 114/73 Pulse Oximetry 98 91 L 05/17/18 05:00 05/17/18 06:00 05/17/18 07:00 Temperature Pulse Rate 111 H 122 H 120 H Respiratory Rate 31 H 15 Blood Pressure 112/72 115/70 Pulse Oximetry 100 91 L 05/17/18 08:00 05/17/18 08:14 05/17/18 09:00 Temperature 99.8 F H Pulse Rate 123 H 123 H 129 H Respiratory Rate 36 H 24 32 H Blood Pressure 120/76 114/75 Pulse Oximetry 96 94 L 94 L 05/17/18 10:00 05/17/18 11:00 05/17/18 11:13 Temperature Pulse Rate 118 H 103 H 100 H Respiratory Rate 34 H 33 H 32 H Blood Pressure 107/75 108/70 Pulse Oximetry 91 L 94 L 05/17/18 12:00 05/17/18 14:00 05/17/18 14:46 Temperature 99.7 F H Pulse Rate 106 H 104 H 105 H Respiratory Rate 24 30 H 22 Blood Pressure 109/71 116/70 Pulse Oximetry 87 L 95 05/17/18 15:00 05/17/18 16:00 05/17/18 17:45 Temperature Pulse Rate 117 H 122 H Respiratory Rate 29 H 29 H Blood Pressure 107/71 92/67 L Pulse Oximetry 95 95 95 05/17/18 18:00 05/17/18 19:28 Temperature Pulse Rate 116 H 119 H Respiratory Rate 18 Blood Pressure Pulse Oximetry 93 L Intake & Output 05/17/18 05/17/18 05/18/18 06:59 18:59 06:59 Intake Total 640 / 640 710 / 710 Output Total 700 / 700 1325 / 1325 Balance -60 / -60 -615 / -615 Weight 72.3 kg Intake: IV 400 / 400 360 / 360 Teflaro Inj 600 MG In NS Inj 200 / 200 100 ML @ 100 mls/hr IV.SIG Q8H [facility] Rx#:[id number] Cleocin 900 mg/NS Premix 900 mg 100 / 100 100 / 100 In 50 ml @ 100 mls/hr IV.SIG Q8H [facility] Rx#:[id number] Magnesium Sulfate Inj 4 GM In 100 / 100 NS Inj 92 ML @ 50 mls/hr IV.SIG UNSCH PRN Rx#:[id number] Potassium Phosphate Inj 30 MMOL 260 / 260 In NS Inj 250 ML @ 43.333 mls/ hr IV.SIG ONCE ONE Rx#:[id number] Oral 240 / 240 350 / 350 Output: Urine 700 / 700 Urine Amount (Catheter) 1325 / 1325 Condom 1325 / 1325 Other: # Bowel Movements 1 05/01/18 11:00 Bronchial Washings - Right Acid Fast Bacilli Smear - Final No acid fast bacilli seen 05/01/18 11:00 Bronchial Washings - Right Mycobacterial Culture - Preliminary No growth in 2 weeks Lab - Hematology Results 05/16/18 05/17/18 03:56 05:00 WBC 13.6 H 12.0 H RBC 3.63 L 3.89 L Hgb 10.6 L 11.3 L Hct 32.5 L 34.4 L MCV 89.5 88.4 MCH 29.2 29.0 MCHC 32.7 32.8 RDW 15.2 15.5 Plt Count 400 453 H MPV 8.0 8.1 Prelim Diff (Auto) Slide review pending Neut % (Auto) 86.3 H 83.3 H Lymph % (Auto) 4.3 L 4.5 L [place] % (Auto) 5.7 7.4 Eos % (Auto) 3.0 4.1 H Baso % (Auto) 0.7 0.7 Neut # (Auto) 11.7 H 10.0 H Lymph # (Auto) 0.6 L 0.5 L [place] # (Auto) 0.8 0.9 Eos # (Auto) 0.4 0.5 H Baso # (Auto) 0.1 0.1 WBC Differential . . Diff Scan Auto diff confirmed Differential Comment . Auto diff final Lab - Chemistry Results 05/16/18 05/16/18 05/17/18 03:56 14:33 05:00 Sodium 139 138 Potassium 3.7 3.7 Chloride 100 98 Carbon Dioxide 32.7 H 33.8 H Anion Gap 6 6 BUN 11 10 Creatinine 0.23 L 0.30 L Estimated GFR Greater than 89 Greater than 89 POC Glucose 102 Random Glucose 93 98 Calcium 8.4 L 8.4 L Phosphorus 2.6 2.3 L Magnesium 1.7 2.1 Total Bilirubin 0.4 0.3 AST 17 19 ALT 21 22 Alkaline Phosphatase 85 93 Total Protein 5.9 L 5.8 L Albumin 1.6 L 1.6 L Imaging: ITS Impressions Face CT 04/06/18 00:00 CONCLUSION: 1. Small focal area of soft tissue swelling involving the lateral orbital margin on the left. No abscess. Abdomen/Pelvis CT 04/10/18 00:00 CONCLUSION: 1. Findings in the patient's chest discussed on the patient's chest CT. 2. Left renal stone without hydronephrosis. 3. Slight AAA. 4. Possible gallstones within the gallbladder. 5. There is slight fluid within the peritoneal cavity in the pelvis and within left perinephric space and stranding densities involving the Gerota's fascia on the left side. The exact etiology is not certain could be inflammatory, and there is no hydronephrosis. Head MRI 04/12/18 00:00 CONCLUSION: 1. Some chronic changes with mild cortical and central atrophy. Minimal periventricular and scattered deep white matter tract areas of small vessel ischemic demyelination. 2. Some fluid or secretions identified in the dependent portion of the nasopharynx. 3. Otherwise negative. No findings of intracranial mass lesion/abscess. Lumbar Spine MRI 04/12/18 00:00 CONCLUSION: 1. No evidence of epidural abscess. 2. Grade 1 anterolisthesis at L5-S1 with associated discogenic degenerative changes and bilateral pars defects. There is significant bilateral bony neural foraminal stenosis with bilateral neural impingement. 3. Asymmetric ligamentum flavum hypertrophy on the right side at the L4-5 level flattens the dorsal lateral aspect of the thecal sac. Neural foramen remain patent. 4. Suggestion of distended urinary bladder, incompletely imaged in the field-of -view. Thoracic Spine MRI 04/12/18 00:00 CONCLUSION: 1. Small bilateral pleural effusions. 2. Spinal canal is widely patent throughout without cord compromise. No findings of a paravertebral abscess. Abdomen X-Ray 04/12/18 09:42 CONCLUSION: No evidence of ileus. Gallium Scan Nuclear Medicine 04/13/18 00:00 CONCLUSION: 1. There is abnormal uptake in the lungs corresponding to cavitary lesions probably lung abscesses and areas of consolidation seen on the patient's prior chest CT. Chest CT 05/15/18 06:00 CONCLUSION: 1. There is a small right-sided hydropneumothorax present only in the right cardiophrenic angle. No evidence of a left-sided pleural effusion. 2. The bulk of the consolidation in the right lower lung is parenchymal consolidation and not effusion. 3. Increasing patchy infiltrates are now noted throughout the right lung compared to the prior study. Stable patchy infiltrates in the left lung base compared to the prior study. 4. There is some increased cavitation of the parenchymal masslike density in the right apex. Chest X-Ray 05/17/18 06:00 CONCLUSION: Little change from yesterday's exam Physical Exam: GENERAL: NAD On NRB SKIN: Warm and dry. + diffuse macular papular rash, torso, bnack , stomach, extemeties HEAD: Atraumatic. Normocephalic. EYES: Pupils equal and round. No scleral icterus. No injection or drainage. ENT: No nasal bleeding or discharge. Mucous membranes pink and moist. NECK: Trachea midline. No JVD. CARDIOVASCULAR: Regular rate and rhythm. RESPIRATORY: No accessory muscle use. R lung with decreased BS and extensive R sided CT w serosang dc GASTROINTESTINAL: Abdomen soft, non-tender, nondistended. MUSCULOSKELETAL: Extremities without clubbing, no cyanosis mild edema. 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
[2018-05-18] MEDS: Oral Hygiene Kit OROPHARYNG SCH ×4 (00:40→17:13)
[2018-05-18] MEDS: Clindamycin 900 mg/NS Premix 900 MG/50 ML PIGGYBACK IV.SIG SCH ×3 (01:21→21:07)
[2018-05-18] MEDS: MethylPREDNISolone Sod Succinate Inj 40 MG/ML Vial IV.PUSH SCH ×3 (05:32→17:22)
--- NOTE | 2018-05-18 05:41 | XR ---
EXAM DATE: 05/18/2018 5:38 AM EST AGE/SEX: 72 years / Male INDICATIONS: Shortness of breath, possible pulmonary disease. CLINICAL DATA: This is the patient's subsequent encounter. Patient reports that signs and symptoms h ave been present for 1 month and indicates a pain score of 0/10. MEDICAL/SURGICAL HISTORY: Hypertension. Chronic obstructive pulmonary disease. MRSA. . Chest tubes. [place] [facility] [place]17/2018. . FINDINGS: A single AP view of the chest demonstrates stable volume loss in the right hemithorax. Coarse interst itial infiltrates in both hemithoraces, right worse than left are basically unchanged. Heart size is normal. Osseous structures are intact. CONCLUSION: Stable exam. Electronically signed by: Kuldip Sims MD Board Certified Radiologist 05/18/2018 5:40 AM EST
[2018-05-18 06:48] LABS: Baso % (Auto) 0.4 % (0.0-2.0); Eos % (Auto) 0.1 % (0.0-4.0); Hematocrit 30.7 % (39.0-51.0); Hemoglobin 9.8 gm/dL (13.0-17.0); Lymph # (Auto) 0.8 th/mm3 (1.0-4.8); Lymph % (Auto) 6.3 % (9.0-44.0); Mean Corpuscular Hemoglobin 27.9 pg (27.0-34.0); Mean Corpuscular Volume 87.2 fL (80.0-100.0); Mean Platelet Volume 8.1 fL (7.0-11.0); Mono # (Auto) 0.6 th/mm3 (0.0-0.9); Mono % (Auto) 5.2 % (0.0-8.0); Neut # (Auto) 10.6 th/mm3 (1.8-7.7); Platelet Count 473 th/mm3 (150-450); Red Blood Count 3.53 mil/mm3 (4.50-5.90); Red Cell Distribution Width 15.3 % (11.6-17.2); White Blood Count 12.1 th/mm3 (4.0-11.0)
[2018-05-18 06:53] LABS: Alanine Aminotransferase 20 U/L (12-78); Albumin 1.8 g/dL (3.4-5.0); Anion Gap 4 meq/L (5-15); Aspartate Aminotransferase 11 U/L (15-37); Blood Urea Nitrogen 15 mg/dL (7-18); Calcium 8.6 mg/dL (8.5-10.1); Chloride 100 meq/L (98-107); Glomerular Filtration Rate Greater Than 89 mL/min (>89); Glucose,Random 148 mg/dL (74-106); Magnesium 1.8 mg/dL (1.5-2.5); Phosphorus 2.6 mg/dL (2.5-4.9); Potassium 3.7 meq/L (3.5-5.1); Sodium 140 meq/L (136-145)
[2018-05-18 06:55] LABS: Alkaline Phosphatase 88 U/L (45-117); Total Protein 5.9 g/dL (6.4-8.2)
[2018-05-18] MEDS: Chlorhexidine 0.12% Oral Kit 15 ML UDC OROPHARYNG SCH ×2 (10:09→21:07)
[2018-05-18] MEDS: guaiFENesin 600 MG ER Tablet PO SCH ×2 (10:09→21:06)
[2018-05-18] MEDS: Metoprolol Tartrate 100 MG Tablet PO SCH ×2 (10:09→21:08)
[2018-05-18] MEDS: Collagenase Oint 30 GM Tube TOPICAL SCH (10:10)
[2018-05-18] MEDS: Famotidine PF Inj 20 MG/2 ML Vial IV.PUSH SCH ×2 (10:10→21:06)
[2018-05-18] MEDS: Enoxaparin Inj 40 MG/0.4 ML Syringe SQ SCH (10:10)
[2018-05-18] MEDS: Sodium Chloride 0.9% 2 ML Flush BID IV.FLUSH SCH ×2 (10:10→21:07)
[2018-05-18] MEDS: Docusate Sodium 100 MG Capsule PO SCH ×2 (10:10→21:06)
--- NOTE | 2018-05-18 13:13 | P.PNCC ---
Subjective Subjective Remarks/Hospital Course: Patient is 72-year-old male with past medical history of COPD, tobacco abuse and hypertension who came to the emergency room for shortness of breath via EMS. On EMS arrival saturation was in the 90s, but patient had significant shortness of breath and dyspnea. Patient received Solu-Medrol 125 mg IV and breathing treatments by EMS and was brought to the emergency department. In the emergency department patient received further breathing treatments and chest x-ray showed patchy infiltrate on bilateral lung fitzgerald. Initially maintaining oxygen saturation with nasal cannula. Initial blood pressure was 85 /65, improved with normal saline boluses. WBC count was 17.1. Patient was deemed septic from pneumonia and patient was ordered to receive vancomycin and Zosyn. While receiving vancomycin patient acutely decompensated became extremely short of breath and developed erythematous maculopapular rash involving face torso armpits and groin region. Emergently intubated and placed on mechanical ventilation by the ED physician. Received IV 50 mg Benadryl. Critical care medicine was requested to admit the patient. I evaluated the patient immediately in the emergency department. Patient is intubated on Versed and fentanyl infusion however he is very asynchronous with the vent triggering ventilator alarms. Severe bilateral expiratory wheezing heard on auscultation. He has extensive skin rash predominantly face forehead torso armpit and groins. Appears like patient had anaphylactic reaction to vancomycin complicated by COPD exacerbation and pneumonia. I have ordered additional Solu-Medrol 100 mg x1 scheduled Benadryl and famotidine, antibiotics with cefepime and Levaquin. Increase Versed infusion, add propofol and use neuromuscular paralysis as needed. Will request pharmacy to add vancomycin to allergy. ED physician Dr. Slater had noticed that patient had some swelling on the left side of his face on arrival, however the skin rash after vancomycin was started was new. Patient remains hypotensive has received 2 L of normal saline in the emergency department and no significant urine output. I have ordered additional 2 L normal saline bolus and maintenance fluid at 84 mL/h. Use Levophed as needed to keep map above 65 Subjective 04/06: Off norepinephrine drip. Currently resting in bed in no acute distress on midazolam and fentanyl drips. Start tube feeding today. 04/07: Remains sedated, intubated on mechanical ventilation. Blood cultures growing MRSA 04/08: remains sedated and intubated. repeat cultures still growing MRSA 2/4 cultures. likely need to repeat BCx either today or tomorrow. agree with narrowing spectrum abx. performed DEEDEE at ID recommendation (need to r/o endocarditis), but no evidence of vegetations. remains hypoxic. off vasopressors today. 04/09: adequate auto-diuresis overnight. off vasopressors. on sedation vacation. hypoxia improving. 04/10 Patient remains intubated and sedated with Fentanyl infusion. Became tachycardic and tachypneic overnight requiring increase sedation. Afebrile. 04/11 Patient is intubated and sedated. Afebrile. 04/12 Patient remains intubated and sedated with Diprivan and Fentanyl infusion, Afebrile. 04/13: Sedated, easily arousable, orally intubated on mechanical ventilation. 04/14 Patient was extubated yesterday. Afebrile. 04/15 Patient is lying in bed in NAD. On 3L oxygen. Awake and alert. 04/16 Patient is on partial rebreather. Afebrile. Awake and alert. 04/17: Left-sided chest tube placed for pneumothorax yesterday. On nasal cannula currently. Awake and alert. Appears comfortable. No air leak noted in Pleur-evac 04/18: Remains on nasal cannula. No air leak noted from left-sided chest tube. 04/19: On 5 L nasal cannula. Chest tube in place, no air leak noted. Resting in bed comfortably, no acute distress. Continues to have productive cough. 04/20: Remains on nasal cannula. Chest tube in place, no air leak noted. Resting in bed comfortably. 04/24: RECONSULT NOTE: called emergently by Hospitalist team. patient with new acute respiratory distress. Chest x-ray demonstrates new large right-sided pneumothorax. I went to evaluate the patient is seen in significant distress. I emergently placed right-sided pigtail chest tube. Significant denney of air with no air leak on chest tube. Respiratory distress improved after chest tube placement. Repeat interval chest x-ray demonstrates good placement of chest tube with resolution of pneumothorax. 04/26/18: RECONSULT NOTE: [facility] reconsulted for rexpansion of right pneumothorax. Patient developed increased SOB today without improvement with nebulizer. STAT CXR Moderate to large right pneumothorax has redeveloped and with a probable tension component. He appears to be in moderate distress tachypneic. Patient was moved to the ICU where I evaluated the patient emergently. The right pigtail chest tube is still in place, minimal air leak. I flushed the chest tube but was difficult to withdraw air. I then pulled back the chest tube by approximately 3 cm. Able to withdraw air more easily and on connection to the Vacutainer again there was significant air leak in all chambers. Patient subjectively felt improvement in shortness of breath after chest tube placement. Stat repeat chest x-ray shows near complete reexpansion of the right knee 04/30/18: [facility] RECONSULT NOTE: Critical care, reconsult for worsening respiratory failure. I evaluate the patient urgently. He is very tachypneic diaphoretic. Chest x-ray today showed possible right upper lobe pneumothorax and increasing right effusion. I did an emergent bedside ultrasound which shows probably loculated complicated right pleural effusion. Patient likely needs more further imaging and procedures and in very labored breathing. Proceeded with endotracheal intubation in place patient on mechanical ventilation. I explained plan of care prior to intubation. He understands that he may need emergency chest tube placement and also may need surgical intervention 05/01/18: Patient remains intubated sedated. Hypotensive on 75 mcg/min of Beau- Synephrine. While sedated. CT chest showed severe right lower lung consolidation large pneumothorax/hydropneumothorax on the right side. Plan for large bore chest tube and central line today. Also cardiothoracic surgery was consulted, and I discussed with Dr. Schaeffer. I will plan for a large bore chest tube to the right side followed by a central line placement. 05/02/18: Patient remains intubated heavily sedated for vent synchrony. Right chest tube with large air leak in all chambers. There is possibility of bronchopleural fistula. Chest x-ray shows improved air entry right lung. Discussed with cardiothoracic surgery Dr. Ontiveros today. Will repeat CT scan to see if lung is reexpanding. May need decortication procedure 05/03/18: Patient remains intubated sedated persistent large air leak. CT reviewed with cardiothoracic surgery Dr. Ontiveros. Will discuss with Dr. Schaeffer in a.m. Probably will benefit from decortication due to the hydropneumothorax and persistent pleural effusions which probably are empyema. Otherwise patient remains critically ill clinically same. [facility] cultures growing staph aureus still 05/04/18: Patient remains sedated critically ill. Chest x-ray shows mostly expanded right lung but with persistent loculated apical pneumothorax and right lower effusion. Plan for surgical intervention by Dr. Schaeffer 05/05/2018 possible decortication. Continue broad-spectrum antibiotics 05/05: Remains sedated, orally intubated on mechanical ventilation. Awaiting OR today for decortication and drainage of loculated effusion and possible repair of air leak site. 05/06: Remains sedated, orally intubated on mechanical ventilation. Status post right VATS with decortication on 05/05. [address] on the right with positive air leak. Subcutaneous emphysema decreasing. 05/07: Remains sedated, orally intubated on mechanical ventilation. Status post right VATS with decortication on 05/05. [address] on the right with positive air leak. Starting tube feeds and CPAP trials 05/08: Remains sedated, orally intubated on mechanical ventilation. Air leak persists from right-sided chest tube 05/09: Sedated, arousable, orally intubated on mechanical ventilation. 1+ air leak from right-sided chest tube noted. On CPAP trial. 05/10: Extubated yesterday. Slightly tachypneic. On nonrebreather facemask this morning. Air leak absent from right chest tube. 05/11: Patient on facemask O2. No air leak noted in right-sided chest tubes this morning. Chest x-ray reveals complete whiteout over right lung field raising concern for mucous plugging. Plan for intubation followed by bronchoscopy and BAL and then attempt to extubate patient. 05/12: Patient underwent intubation followed by bronchoscopy and BAL for right mucous plugging on 05/11 with significant mucus plugging noted which was suctioned out with BAL. Patient was subsequently extubated. Chest x-ray following bronchoscopy showed reexpansion of right lung with no pneumothorax and no air leak from chest tube. This morning patient is resting comfortably on 5 L nasal cannula and denies any shortness of breath. No air leak noted from chest tube. 05/13: Remains on nasal cannula maintaining oxygen saturation. Appears deconditioned. Chest x-ray shows improving aeration. Will get physical therapy to mobilize patient out of bed daily. Anterior chest tube to be removed by CT surgery today 05/14: Afebrile. Currently on nonrebreather mask. Aggressive pulmonary toilet initiated. Currently n.p.o. 05/15: Afebrile. Remains on nonrebreather mask but takes off intermittently. Plan for CT thorax exam. Replace potassium and phosphate this a.m. Appears comfortable lying in bed in no acute distress. 05/16: Resting comfortably in bed in no acute distress. Requesting additional physical therapy. Currently 8 L nasal cannula. Increased appetite this morning. 05/17: Rash this a.m. likely drug rash from ceftaroline. Infectious disease notified. Discontinued. Will reassess. Currently on famotidine, diphenhydramine and methylprednisolone succinate. Remains tachypneic which is stable for him. X-ray stable. 05/18: Patient offers no complaints today, tolerating nasal cannula O2. Reports no chest pain, dyspnea, or itching. Objective Vital Signs / I&O: Vital Signs 05/17/18 14:00 05/17/18 14:46 05/17/18 15:00 Temperature Pulse Rate 104 H 105 H 117 H Respiratory Rate 30 H 22 29 H Blood Pressure 116/70 107/71 Pulse Oximetry 95 95 05/17/18 16:00 05/17/18 17:00 05/17/18 17:35 Temperature Pulse Rate 122 H 114 H 112 H Respiratory Rate 29 H 16 31 H Blood Pressure 92/67 L 98/69 L Pulse Oximetry 95 93 L 95 05/17/18 17:45 05/17/18 18:00 05/17/18 18:01 Temperature Pulse Rate 116 H 119 H Respiratory Rate 29 H 38 H Blood Pressure 129/82 Pulse Oximetry 95 95 96 05/17/18 19:00 05/17/18 19:28 05/17/18 20:00 Temperature 99.0 F Pulse Rate 119 H 119 H 122 H Respiratory Rate 30 H 18 34 H Blood Pressure 93/57 L 102/68 Pulse Oximetry 95 93 L 93 L 05/17/18 21:00 05/17/18 22:00 05/17/18 23:00 Temperature Pulse Rate 118 H 107 H 99 H Respiratory Rate 33 H 28 H 32 H Blood Pressure 101/73 101/70 118/77 Pulse Oximetry 93 L 86 L 95 05/17/18 23:52 05/18/18 00:00 05/18/18 01:00 Temperature 98.9 F Pulse Rate 96 H 96 H 96 H Respiratory Rate 18 27 H 34 H Blood Pressure 106/67 114/72 Pulse Oximetry 93 L 93 L 05/18/18 02:00 05/18/18 03:00 05/18/18 03:41 Temperature Pulse Rate 97 H 97 H 97 H Respiratory Rate 28 H 25 H 18 Blood Pressure 106/68 110/70 Pulse Oximetry 93 L 93 L 05/18/18 04:00 05/18/18 05:00 05/18/18 06:00 Temperature 98.4 F Pulse Rate 101 H 103 H 104 H Respiratory Rate 29 H 25 H 33 H Blood Pressure 113/72 115/69 119/72 Pulse Oximetry 92 L 91 L 93 L 05/18/18 07:00 05/18/18 07:29 05/18/18 08:00 Temperature 98.5 F Pulse Rate 106 H 107 H 109 H Respiratory Rate 22 20 9 L Blood Pressure 107/64 128/68 Pulse Oximetry 92 L 93 L 93 L 05/18/18 09:00 05/18/18 10:00 05/18/18 11:00 Temperature Pulse Rate 120 H 127 H 121 H Respiratory Rate 37 H 45 H 33 H Blood Pressure 121/71 119/88 119/79 Pulse Oximetry 100 100 94 L 05/18/18 11:14 Temperature Pulse Rate 117 H Respiratory Rate 20 Blood Pressure Pulse Oximetry Intake & Output 05/17/18 05/18/18 05/18/18 18:59 06:59 18:59 Intake Total 710 / 710 110 / 110 Output Total 1325 / 1325 300 / 300 Balance -615 / -615 -190 / -190 Weight 69.9 kg Intake: IV 360 / 360 50 / 50 Cleocin 900 mg/NS Premix 900 mg 100 / 100 50 / 50 In 50 ml @ 100 mls/hr IV.SIG Q8H LENORA Rx#:[id number] Potassium Phosphate Inj 30 MMOL 260 / 260 In NS Inj 250 ML @ 43.333 mls/ hr IV.SIG ONCE ONE Rx#:[id number] Oral 350 / 350 60 / 60 Output: Urine 300 / 300 Urine Amount (Catheter) 1325 / 1325 Condom 1325 / 1325 Other: Date of Last Bowel Movement 05/18/18 05/18/18 # Bowel Movements 1 Result Diagrams: 05/18/18 05:54 05/18/18 05:54 Objective Remarks: GENERAL: Elderly male sitting up in bed, no acute distress SKIN: Diffuse erythematous lace-like rash, no urticaria or excoriations HEAD: Atraumatic. Normocephalic. EYES: Pupils equal and round. No scleral icterus. ENT: No nasal bleeding or discharge. Mucous membranes moist. NECK: Trachea midline. CARDIOVASCULAR: S1-S2 normal no murmur RESPIRATORY: Air entry decreased on the right compared to left side, scattered rhonchi bilaterally. Chest tubes are all removed, dressings clean, dry, and intact. GASTROINTESTINAL: Abdomen soft, non-tender, non-distended. MUSCULOSKELETAL: Extremities without clubbing, cyanosis, or edema. No obvious deformities. NEUROLOGICAL: Awake, alert, following commands. Moves all extremities. Assessment and Plan - Assessment and Plan Plan: Neuro/Psych -Acetaminophen 650 p.o. every 6 hours as needed fever -Hydrocodone/acetaminophen 5/325 1 tablet every 4 hours as needed pain 1 through 5 - Morphine sulfate 2 mg IV every 2 hours as needed pain 6 through 10 RESP: Acute hypoxemic respiratory failure Persistent right-sided pneumothorax Right-sided complicated pleural effusion, probable empyema History of COPD Tobaccoism Left lower lobe 1.5 cm pulmonary nodule. Outpatient PET scan -Extubated on 05/09. Chest x-ray from 05/11 showed white out on the right side suggesting atelectasis, suspect mucous plugging. -s/p re-intubation followed by bronchoscopy and BAL with removal of significant mucous plugs from right mainstem bronchus and subsequent extubation on 05/11 -Albuterol/ipratropium aerosols every 4 hours with albuterol aerosols every 2 as needed dyspnea -Continue solumedrol 40 mg q6h -EZ Pap every 4 hours -Status post right VATS with decortication 05/05/2018 -Continue antibiotics per ID -Anterior chest tube was removed 05/13. Last right-sided chest removed by CT surgery 05/14. -CT chest on 05/15 showed small right-sided hydropneumothorax at the right cardiophrenic angle, right lower lung consolidation, increased right lung infiltrates, and cavitary right apical mass CV: Essential hypertension Coronary artery disease Grade 1 diastolic dysfunction -Currently metoprolol tartrate 50 mg twice daily (on 150 BID at home) -Hold home lisinopril, BP currently well-controlled -2D echocardiogram 04/06/2018 revealed grade 1 diastolic dysfunction GI -Cardiac diet -Famotidine for GI prophylaxis as patient is on steroids -Docusate sodium 100 mg 1 tablet twice daily for bowel regimen Renal/: -Monitor creatinine daily. Follow trends -Monitor urine output -Accurate I's and O's. ID: Status post right VATS 05/05/2018 MRSA pneumonia with probable lung abscess (Zyvox resistant) Severe necrotizing pneumonia Probable septic emboli to the left lung MRSA bacteremia MRSA pneumonia -Antibiotics per ID. Currently on ceftaroline and clindamycin for linezolid resistant staph aureus Ceftaroline held due to rash. Infectious aware will adjust today. Currently on famotidine/diphenhydramine and methylprednisolone succinate Anaphylaxis to vancomycin noted -Further cultures per ID -[id number] cultures negative -Status post right VATS with decortication on 05/05 -Blood cultures MRSA. -Sputum 04/28 MRSA -Tissue culture 05/05 MRSA HEME: Leukocytosis Normocytic anemia Thrombocytosis -Monitor CBC, coags -No indication for transfusion of blood products at this time ENDO/FEN: Hypophosphatemia -Electrolyte replacement per protocol -Sliding scale insulin if needed PROPH: -Bilateral lower extremity SCDs -PPI -Lovenox LINES: -Utilize peripheral IVs, right subclavian central line placed 05/01/18. Discontinued Level 2 follow-up To help prompt me to consider important information that might be impacting today's encounter and assessment, information from prior notes written by myself or my colleagues may have been "brought forward" into today's note. My signature on this note, however, is an attestation that I personally performed the exam, history, and/or decision-making noted today, and, unless otherwise indicated, the interactions with patient, family, and staff as well as the review of records all occurred today. I also attest that the listed assessment and stated plan reflect my best clinical judgment today based on the combination of historical information, prior notes, and today's exam/ interactions. Code Status: Full
--- NOTE | 2018-05-18 14:43 | P.PNID ---
Subjective Remarks: On ventimask + productive cough and some hemoptysosi co non pruritic rash, diffuse: torso, extremeties He thinks its worse no fever dw pt h/o vancomycin side effect. e apparently defvelopped red man sd RESISTANCE to Linezolid was confirmed Antibiotics: n tStopped 05/17 2/ rash clindamycin added 05/05 Lines: Line sites okay Past Medical History: COPD Allergies/Adverse Reactions: Allergies bee venom protein (honey bee) Allergy (Unknown, Verified 04/05/18 21:12) Edema vancomycin Allergy (Verified 04/05/18 23:33) Anaphylaxis Objective Vital Signs 05/17/18 14:46 05/17/18 15:00 05/17/18 16:00 Temperature Pulse Rate 105 H 117 H 122 H Respiratory Rate 22 29 H 29 H Blood Pressure 107/71 92/67 L Pulse Oximetry 95 95 05/17/18 17:00 05/17/18 17:35 05/17/18 17:45 Temperature Pulse Rate 114 H 112 H Respiratory Rate 16 31 H Blood Pressure 98/69 L Pulse Oximetry 93 L 95 95 05/17/18 18:00 05/17/18 18:01 05/17/18 19:00 Temperature Pulse Rate 116 H 119 H 119 H Respiratory Rate 29 H 38 H 30 H Blood Pressure 129/82 93/57 L Pulse Oximetry 95 96 95 05/17/18 19:28 05/17/18 20:00 05/17/18 21:00 Temperature 99.0 F Pulse Rate 119 H 122 H 118 H Respiratory Rate 18 34 H 33 H Blood Pressure 102/68 101/73 Pulse Oximetry 93 L 93 L 93 L 05/17/18 22:00 05/17/18 23:00 05/17/18 23:52 Temperature Pulse Rate 107 H 99 H 96 H Respiratory Rate 28 H 32 H 18 Blood Pressure 101/70 118/77 Pulse Oximetry 86 L 95 05/18/18 00:00 05/18/18 01:00 05/18/18 02:00 Temperature 98.9 F Pulse Rate 96 H 96 H 97 H Respiratory Rate 27 H 34 H 28 H Blood Pressure 106/67 114/72 106/68 Pulse Oximetry 93 L 93 L 93 L 05/18/18 03:00 05/18/18 03:41 05/18/18 04:00 Temperature 98.4 F Pulse Rate 97 H 97 H 101 H Respiratory Rate 25 H 18 29 H Blood Pressure 110/70 113/72 Pulse Oximetry 93 L 92 L 05/18/18 05:00 05/18/18 06:00 05/18/18 07:00 Temperature Pulse Rate 103 H 104 H 106 H Respiratory Rate 25 H 33 H 22 Blood Pressure 115/69 119/72 107/64 Pulse Oximetry 91 L 93 L 92 L 05/18/18 07:29 05/18/18 08:00 05/18/18 09:00 Temperature 98.5 F Pulse Rate 107 H 109 H 120 H Respiratory Rate 20 9 L 37 H Blood Pressure 128/68 121/71 Pulse Oximetry 93 L 93 L 100 05/18/18 10:00 05/18/18 11:00 05/18/18 11:14 Temperature Pulse Rate 127 H 121 H 117 H Respiratory Rate 45 H 33 H 20 Blood Pressure 119/88 119/79 Pulse Oximetry 100 94 L 05/18/18 12:00 05/18/18 13:00 05/18/18 13:04 Temperature Pulse Rate 114 H 111 H 109 H Respiratory Rate 37 H 27 H 43 H Blood Pressure 104/69 112/79 Pulse Oximetry 94 L 93 L 05/18/18 14:00 Temperature Pulse Rate 100 H Respiratory Rate 21 Blood Pressure 112/73 Pulse Oximetry 94 L Intake & Output 05/17/18 05/18/18 05/18/18 18:59 06:59 18:59 Intake Total 710 / 710 110 / 110 Output Total 1325 / 1325 300 / 300 Balance -615 / -615 -190 / -190 Weight 69.9 kg Intake: IV 360 / 360 50 / 50 Cleocin 900 mg/NS Premix 900 mg 100 / 100 50 / 50 In 50 ml @ 100 mls/hr IV.SIG Q8H [facility] Rx#:[id number] Potassium Phosphate Inj 30 MMOL 260 / 260 In NS Inj 250 ML @ 43.333 mls/ hr IV.SIG ONCE ONE Rx#:[id number] Oral 350 / 350 60 / 60 Output: Urine 300 / 300 Urine Amount (Catheter) 1325 / 1325 Condom 1325 / 1325 Other: Date of Last Bowel Movement 05/18/18 05/18/18 # Bowel Movements 1 05/17/18 20:00 Sputum - Expectorated Sputum Gram Stain - Final 05/17/18 20:00 Sputum - Expectorated Sputum Sputum Culture - Preliminary Heavy growth normal respiratory abelardo at 24 hours 05/17/18 20:15 Sputum - Expectorated Sputum Gram Stain - Final 05/17/18 20:15 Sputum - Expectorated Sputum Sputum Culture - Preliminary Heavy growth normal respiratory abelardo at 24 hours 05/01/18 11:00 Bronchial Washings - Right Acid Fast Bacilli Smear - Final No acid fast bacilli seen 05/01/18 11:00 Bronchial Washings - Right Mycobacterial Culture - Preliminary No growth in 2 weeks Lab - Hematology Results 05/17/18 05/18/18 05:00 05:54 WBC 12.0 H 12.1 H RBC 3.89 L 3.53 L Hgb 11.3 L 9.8 L Hct 34.4 L 30.7 L MCV 88.4 87.2 MCH 29.0 27.9 MCHC 32.8 32.0 RDW 15.5 15.3 Plt Count 453 H 473 H MPV 8.1 8.1 Neut % (Auto) 83.3 H 88.0 H Lymph % (Auto) 4.5 L 6.3 L [place] % (Auto) 7.4 5.2 Eos % (Auto) 4.1 H 0.1 Baso % (Auto) 0.7 0.4 Neut # (Auto) 10.0 H 10.6 H Lymph # (Auto) 0.5 L 0.8 L [place] # (Auto) 0.9 0.6 Eos # (Auto) 0.5 H 0.0 Baso # (Auto) 0.1 0.0 WBC Differential . . Differential Comment Auto diff final Auto diff final Lab - Chemistry Results 05/16/18 05/17/18 05/18/18 14:33 05:00 05:54 Sodium 138 140 Potassium 3.7 3.7 Chloride 98 100 Carbon Dioxide 33.8 H 36.0 H Anion Gap 6 4 L BUN 10 15 Creatinine 0.30 L 0.27 L Estimated GFR Greater than 89 Greater than 89 POC Glucose 102 Random Glucose 98 148 H Calcium 8.4 L 8.6 Phosphorus 2.3 L 2.6 Magnesium 2.1 1.8 Total Bilirubin 0.3 0.3 AST 19 11 L ALT 22 20 Alkaline Phosphatase 93 88 Total Protein 5.8 L 5.9 L Albumin 1.6 L 1.8 L Imaging: ITS Impressions Face CT 04/06/18 00:00 CONCLUSION: 1. Small focal area of soft tissue swelling involving the lateral orbital margin on the left. No abscess. Abdomen/Pelvis CT 04/10/18 00:00 CONCLUSION: 1. Findings in the patient's chest discussed on the patient's chest CT. 2. Left renal stone without hydronephrosis. 3. Slight AAA. 4. Possible gallstones within the gallbladder. 5. There is slight fluid within the peritoneal cavity in the pelvis and within left perinephric space and stranding densities involving the Gerota's fascia on the left side. The exact etiology is not certain could be inflammatory, and there is no hydronephrosis. Head MRI 04/12/18 00:00 CONCLUSION: 1. Some chronic changes with mild cortical and central atrophy. Minimal periventricular and scattered deep white matter tract areas of small vessel ischemic demyelination. 2. Some fluid or secretions identified in the dependent portion of the nasopharynx. 3. Otherwise negative. No findings of intracranial mass lesion/abscess. Lumbar Spine MRI 04/12/18 00:00 CONCLUSION: 1. No evidence of epidural abscess. 2. Grade 1 anterolisthesis at L5-S1 with associated discogenic degenerative changes and bilateral pars defects. There is significant bilateral bony neural foraminal stenosis with bilateral neural impingement. 3. Asymmetric ligamentum flavum hypertrophy on the right side at the L4-5 level flattens the dorsal lateral aspect of the thecal sac. Neural foramen remain patent. 4. Suggestion of distended urinary bladder, incompletely imaged in the field-of -view. Thoracic Spine MRI 04/12/18 00:00 CONCLUSION: 1. Small bilateral pleural effusions. 2. Spinal canal is widely patent throughout without cord compromise. No findings of a paravertebral abscess. Abdomen X-Ray 04/12/18 09:42 CONCLUSION: No evidence of ileus. Gallium Scan Nuclear Medicine 04/13/18 00:00 CONCLUSION: 1. There is abnormal uptake in the lungs corresponding to cavitary lesions probably lung abscesses and areas of consolidation seen on the patient's prior chest CT. Chest CT 05/15/18 06:00 CONCLUSION: 1. There is a small right-sided hydropneumothorax present only in the right cardiophrenic angle. No evidence of a left-sided pleural effusion. 2. The bulk of the consolidation in the right lower lung is parenchymal consolidation and not effusion. 3. Increasing patchy infiltrates are now noted throughout the right lung compared to the prior study. Stable patchy infiltrates in the left lung base compared to the prior study. 4. There is some increased cavitation of the parenchymal masslike density in the right apex. Chest X-Ray 05/18/18 06:00 CONCLUSION: Stable exam. Physical Exam: GENERAL: NAD On NRB SKIN: Warm and dry. + diffuse macular papular rash, torso, bnack , stomach, extemeties rash essentially unchanged HEAD: Atraumatic. Normocephalic. EYES: Pupils equal and round. No scleral icterus. No injection or drainage. ENT: No nasal bleeding or discharge. Mucous membranes pink and moist. NECK: Trachea midline. No JVD. CARDIOVASCULAR: Regular rate and rhythm. RESPIRATORY: No accessory muscle use. R lung with decreased BS and extensive R sided CT w serosang dc GASTROINTESTINAL: Abdomen soft, non-tender, nondistended. MUSCULOSKELETAL: Extremities without clubbing, no cyanosis mild edema. 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
--- NOTE | 2018-05-18 20:07 | P.PNPL ---
Subjective Interval history: 72 YOWM with MRSA Pn, cavitary lesion, COPD, Lt ptx mild sob On PRB Tolerates PO Still very weak Alert, awake, follows commands Physical Exam Vital signs: Vital Signs 05/17/18 21:00 05/17/18 22:00 05/17/18 23:00 Temperature Pulse Rate 118 H 107 H 99 H Respiratory Rate 33 H 28 H 32 H Blood Pressure 101/73 101/70 118/77 Pulse Oximetry 93 L 86 L 95 05/17/18 23:52 05/18/18 00:00 05/18/18 01:00 Temperature 98.9 F Pulse Rate 96 H 96 H 96 H Respiratory Rate 18 27 H 34 H Blood Pressure 106/67 114/72 Pulse Oximetry 93 L 93 L 05/18/18 02:00 05/18/18 03:00 05/18/18 03:41 Temperature Pulse Rate 97 H 97 H 97 H Respiratory Rate 28 H 25 H 18 Blood Pressure 106/68 110/70 Pulse Oximetry 93 L 93 L 05/18/18 04:00 05/18/18 05:00 05/18/18 06:00 Temperature 98.4 F Pulse Rate 101 H 103 H 104 H Respiratory Rate 29 H 25 H 33 H Blood Pressure 113/72 115/69 119/72 Pulse Oximetry 92 L 91 L 93 L 05/18/18 07:00 05/18/18 07:29 05/18/18 08:00 Temperature 98.5 F Pulse Rate 106 H 107 H 109 H Respiratory Rate 22 20 9 L Blood Pressure 107/64 128/68 Pulse Oximetry 92 L 93 L 93 L 05/18/18 09:00 05/18/18 10:00 05/18/18 11:00 Temperature Pulse Rate 120 H 127 H 121 H Respiratory Rate 37 H 45 H 33 H Blood Pressure 121/71 119/88 119/79 Pulse Oximetry 100 100 94 L 05/18/18 11:14 05/18/18 12:00 05/18/18 13:00 Temperature Pulse Rate 117 H 114 H 111 H Respiratory Rate 20 37 H 27 H Blood Pressure 104/69 Pulse Oximetry 94 L 05/18/18 13:04 05/18/18 14:00 05/18/18 15:00 Temperature Pulse Rate 109 H 100 H 92 H Respiratory Rate 43 H 21 25 H Blood Pressure 112/79 112/73 110/69 Pulse Oximetry 93 L 94 L 95 05/18/18 15:21 05/18/18 16:00 05/18/18 16:20 Temperature Pulse Rate 99 H 100 H 111 H Respiratory Rate 18 28 H 35 H Blood Pressure 111/71 116/72 Pulse Oximetry 92 L 89 L 05/18/18 16:54 05/18/18 18:00 05/18/18 19:39 Temperature Pulse Rate 97 H 101 H Respiratory Rate 16 Blood Pressure Pulse Oximetry 92 L 93 L Intake & Output 05/18/18 05/18/18 05/19/18 06:59 18:59 06:59 Intake Total 110 / 110 50 / 50 Output Total 300 / 300 700 / 700 Balance -190 / -190 -650 / -650 Weight 69.9 kg Intake: IV 50 / 50 50 / 50 Cleocin 900 mg/NS Premix 900 mg 50 / 50 50 / 50 In 50 ml @ 100 mls/hr IV.SIG Q8H [facility] Rx#:[id number] Oral 60 / 60 Output: Urine 300 / 300 Urine Amount (Catheter) 700 / 700 Condom 700 / 700 Other: Date of Last Bowel Movement 05/18/18 05/18/18 GENERAL: Elderly WM, mild sob SKIN: Warm and dry. HEAD: Normocephalic. EYES: No scleral icterus. No injection or drainage. NECK: Supple, trachea midline. No JVD or lymphadenopathy. CARDIOVASCULAR: Regular rate and rhythm without murmurs, gallops, or rubs. RESPIRATORY: Breath sounds equal bilaterally. No accessory muscle use. GASTROINTESTINAL: Abdomen soft, non-tender, nondistended. MUSCULOSKELETAL: No cyanosis, or edema. BACK: Nontender without obvious deformity. No CVA tenderness. - Urinary Catheter Management Indwelling Urethral Catheter Cath placed during this visit: yes, but has since been removed by the nurse Reason for continuing: Acute urinary retention Insertion date: 04/05/18 Insertion time: 23:00 Removal date: 04/12/18 Removal time: 08:30 Condom Cath placed during this visit: no Reason for continuing: Acute urinary retention Straight Cath placed during this visit: yes, but has since been removed by the nurse Reason for continuing: Not indwelling catheter Insertion date: 05/06/18 Insertion time: 18:00 Removal date: 05/06/18 Removal time: 18:10 Indwelling Temp Sensing Catheter Cath placed during this visit: yes, but has since been removed by the nurse Reason for continuing: Hourly intake/output Insertion date: 05/05/18 Insertion time: 12:15 Removal date: 05/05/18 Removal time: 15:00 Assessment and Plan - Plan IMPRESSION: 1. MRSA pneumonia. 2. Cavitary pneumonia. 4. Chronic obstructive pulmonary disease. 5. Hypotension. 6. Left pneumothorax, status post chest tube.removal 7. Nicotine use. 8. Right Ptx 9. VDRF PLAN: Cont Abx per ID Aerosol nebs Supplement 02 with PRB CPAP prn encourage PO GUERLINE RN at BS
[2018-05-19] MEDS: MethylPREDNISolone Sod Succinate Inj 40 MG/ML Vial IV.PUSH SCH ×4 (01:25→18:12)
[2018-05-19] MEDS: Oral Hygiene Kit OROPHARYNG SCH ×4 (01:26→17:01)
[2018-05-19] MEDS: Clindamycin 900 mg/NS Premix 900 MG/50 ML PIGGYBACK IV.SIG SCH ×3 (01:26→18:12)
[2018-05-19 06:32] LABS: Baso # (Auto) 0.1 th/mm3 (0.0-0.2); Baso % (Auto) 0.6 % (0.0-2.0); Eos # (Auto) 0.2 th/mm3 (0.0-0.4); Eos % (Auto) 1.2 % (0.0-4.0); Hematocrit 32.7 % (39.0-51.0); Hemoglobin 10.7 gm/dL (13.0-17.0); Lymph # (Auto) 0.6 th/mm3 (1.0-4.8); Lymph % (Auto) 3.8 % (9.0-44.0); Mean Corpuscular HGB Conc 32.8 % (32.0-36.0); Mean Corpuscular Hemoglobin 28.5 pg (27.0-34.0); Mean Corpuscular Volume 86.9 fL (80.0-100.0); Mean Platelet Volume 7.5 fL (7.0-11.0); Mono # (Auto) 0.9 th/mm3 (0.0-0.9); Mono % (Auto) 5.5 % (0.0-8.0); Neut # (Auto) 14.1 th/mm3 (1.8-7.7); Neut % (Auto) 88.9 % (16.0-70.0); Platelet Count 505 th/mm3 (150-450); Red Blood Count 3.76 mil/mm3 (4.50-5.90); Red Cell Distribution Width 15.4 % (11.6-17.2); White Blood Count 15.9 th/mm3 (4.0-11.0)
[2018-05-19 07:03] LABS: Anion Gap 4 meq/L (5-15); Blood Urea Nitrogen 19 mg/dL (7-18); Calcium 8.9 mg/dL (8.5-10.1); Carbon Dioxide 37.6 meq/L (21.0-32.0); Chloride 99 meq/L (98-107); Glomerular Filtration Rate Greater Than 89 mL/min (>89); Glucose,Random 127 mg/dL (74-106); Magnesium 1.8 mg/dL (1.5-2.5); Potassium 3.6 meq/L (3.5-5.1); Sodium 141 meq/L (136-145)
[2018-05-19] MEDS: Chlorhexidine 0.12% Oral Kit 15 ML UDC OROPHARYNG SCH ×2 (07:44→20:43)
[2018-05-19] MEDS: Enoxaparin Inj 40 MG/0.4 ML Syringe SQ SCH (09:30)
[2018-05-19] MEDS: guaiFENesin 600 MG ER Tablet PO SCH ×2 (09:30→20:43)
[2018-05-19] MEDS: Metoprolol Tartrate 100 MG Tablet PO SCH ×2 (09:30→20:43)
[2018-05-19] MEDS: Docusate Sodium 100 MG Capsule PO SCH ×2 (09:31→20:43)
[2018-05-19] MEDS: Sodium Chloride 0.9% 2 ML Flush BID IV.FLUSH SCH ×2 (09:31→20:44)
[2018-05-19] MEDS: Collagenase Oint 30 GM Tube TOPICAL SCH (09:32)
[2018-05-19] MEDS: Famotidine PF Inj 20 MG/2 ML Vial IV.PUSH SCH ×2 (09:32→20:43)
--- NOTE | 2018-05-19 13:53 | P.PNID ---
Subjective Remarks: On NC O2 + productive cough and some hemoptysosi co non pruritic rash, diffuse: torso, extremeties RN thinks its improving no fever dw pt h/o vancomycin side effect. e apparently defvelopped red man sd RESISTANCE to Linezolid was confirmed Antibiotics: n tStopped 05/17 2/2 rash clindamycin added 2/5 Lines: Line sites okay Past Medical History: COPD Allergies/Adverse Reactions: Allergies bee venom protein (honey bee) Allergy (Unknown, Verified 04/05/18 21:12) Edema vancomycin Allergy (Verified 04/05/18 23:33) Anaphylaxis Objective Vital Signs 05/18/18 14:00 05/18/18 15:00 05/18/18 15:21 Temperature Pulse Rate 100 H 92 H 99 H Respiratory Rate 21 25 H 18 Blood Pressure 112/73 110/69 Pulse Oximetry 94 L 95 05/18/18 16:00 05/18/18 16:20 05/18/18 16:54 Temperature Pulse Rate 100 H 111 H Respiratory Rate 28 H 35 H Blood Pressure 111/71 116/72 Pulse Oximetry 92 L 89 L 92 L 05/18/18 17:00 05/18/18 18:00 05/18/18 19:00 Temperature Pulse Rate 100 H 97 H 104 H Respiratory Rate 27 H 25 H 31 H Blood Pressure 115/72 116/75 118/71 Pulse Oximetry 93 L 93 L 86 L 05/18/18 19:39 05/18/18 20:00 05/18/18 21:00 Temperature 98.7 F Pulse Rate 101 H 106 H 109 H Respiratory Rate 16 28 H Blood Pressure 114/75 129/74 Pulse Oximetry 93 L 93 L 93 L 05/18/18 22:00 05/18/18 23:00 05/18/18 23:20 Temperature Pulse Rate 111 H 111 H 112 H Respiratory Rate 27 H 31 H 18 Blood Pressure 109/70 112/65 Pulse Oximetry 94 L 93 L 05/19/18 00:00 05/19/18 01:00 05/19/18 02:00 Temperature 98.1 F Pulse Rate 116 H 114 H 106 H Respiratory Rate 26 H 24 27 H Blood Pressure 104/60 109/60 103/76 Pulse Oximetry 93 L 94 L 96 05/19/18 02:48 05/19/18 03:00 05/19/18 04:00 Temperature 98.7 F Pulse Rate 87 92 H 90 Respiratory Rate 16 13 21 Blood Pressure 111/70 103/64 Pulse Oximetry 85 L 94 L 05/19/18 05:00 05/19/18 06:00 05/19/18 07:00 Temperature Pulse Rate 89 91 H 90 Respiratory Rate 20 21 24 Blood Pressure 116/68 112/71 115/78 Pulse Oximetry 93 L 95 05/19/18 07:42 05/19/18 08:00 05/19/18 09:00 Temperature Pulse Rate 90 100 H 112 H Respiratory Rate 16 27 H 43 H Blood Pressure 118/87 Pulse Oximetry 97 92 L 92 L 05/19/18 09:01 05/19/18 09:20 05/19/18 10:00 Temperature 97.8 F Pulse Rate 113 H 121 H Respiratory Rate 32 H 42 H Blood Pressure 117/81 105/73 Pulse Oximetry 93 L 95 05/19/18 11:00 05/19/18 11:15 Temperature Pulse Rate 113 H 112 H Respiratory Rate 30 H 18 Blood Pressure 94/65 L Pulse Oximetry 95 Intake & Output 05/18/18 05/19/18 05/19/18 18:59 06:59 18:59 Intake Total 50 / 50 600 / 600 Output Total 700 / 700 650 / 650 Balance -650 / -650 -50 / -50 Weight 69.8 kg Intake: IV 50 / 50 100 / 100 Cleocin 900 mg/NS Premix 900 mg 50 / 50 100 / 100 In 50 ml @ 100 mls/hr IV.SIG Q8H [facility] Rx#:[id number] Oral 500 / 500 Output: Urine 650 / 650 Urine Amount (Catheter) 700 / 700 Condom 700 / 700 Other: Date of Last Bowel Movement 05/18/18 05/17/18 05/18/18 # Bowel Movements 0 05/17/18 20:00 Sputum - Expectorated Sputum Gram Stain - Final 05/17/18 20:00 Sputum - Expectorated Sputum Sputum Culture - Final Heavy growth normal respiratory abelardo 05/17/18 20:15 Sputum - Expectorated Sputum Gram Stain - Final 05/17/18 20:15 Sputum - Expectorated Sputum Sputum Culture - Final Heavy growth normal respiratory abelardo Lab - Hematology Results 05/18/18 05/19/18 05:54 06:10 WBC 12.1 H 15.9 H RBC 3.53 L 3.76 L Hgb 9.8 L 10.7 L Hct 30.7 L 32.7 L MCV 87.2 86.9 MCH 27.9 28.5 MCHC 32.0 32.8 RDW 15.3 15.4 Plt Count 473 H 505 H MPV 8.1 7.5 Neut % (Auto) 88.0 H 88.9 H Lymph % (Auto) 6.3 L 3.8 L [place] % (Auto) 5.2 5.5 Eos % (Auto) 0.1 1.2 Baso % (Auto) 0.4 0.6 Neut # (Auto) 10.6 H 14.1 H Lymph # (Auto) 0.8 L 0.6 L [place] # (Auto) 0.6 0.9 Eos # (Auto) 0.0 0.2 Baso # (Auto) 0.0 0.1 WBC Differential . . Differential Comment Auto diff final Auto diff final Lab - Chemistry Results 05/18/18 05/19/18 05:54 06:10 Sodium 140 141 Potassium 3.7 3.6 Chloride 100 99 Carbon Dioxide 36.0 H 37.6 H Anion Gap 4 L 4 L BUN 15 19 H Creatinine 0.27 L 0.32 L Estimated GFR Greater than 89 Greater than 89 Random Glucose 148 H 127 H Calcium 8.6 8.9 Phosphorus 2.6 Magnesium 1.8 1.8 Total Bilirubin 0.3 AST 11 L ALT 20 Alkaline Phosphatase 88 Total Protein 5.9 L Albumin 1.8 L Imaging: ITS Impressions Face CT 04/06/18 00:00 CONCLUSION: 1. Small focal area of soft tissue swelling involving the lateral orbital margin on the left. No abscess. Abdomen/Pelvis CT 04/10/18 00:00 CONCLUSION: 1. Findings in the patient's chest discussed on the patient's chest CT. 2. Left renal stone without hydronephrosis. 3. Slight AAA. 4. Possible gallstones within the gallbladder. 5. There is slight fluid within the peritoneal cavity in the pelvis and within left perinephric space and stranding densities involving the Gerota's fascia on the left side. The exact etiology is not certain could be inflammatory, and there is no hydronephrosis. Head MRI 04/12/18 00:00 CONCLUSION: 1. Some chronic changes with mild cortical and central atrophy. Minimal periventricular and scattered deep white matter tract areas of small vessel ischemic demyelination. 2. Some fluid or secretions identified in the dependent portion of the nasopharynx. 3. Otherwise negative. No findings of intracranial mass lesion/abscess. Lumbar Spine MRI 04/12/18 00:00 CONCLUSION: 1. No evidence of epidural abscess. 2. Grade 1 anterolisthesis at L5-S1 with associated discogenic degenerative changes and bilateral pars defects. There is significant bilateral bony neural foraminal stenosis with bilateral neural impingement. 3. Asymmetric ligamentum flavum hypertrophy on the right side at the L4-5 level flattens the dorsal lateral aspect of the thecal sac. Neural foramen remain patent. 4. Suggestion of distended urinary bladder, incompletely imaged in the field-of -view. Thoracic Spine MRI 04/12/18 00:00 CONCLUSION: 1. Small bilateral pleural effusions. 2. Spinal canal is widely patent throughout without cord compromise. No findings of a paravertebral abscess. Abdomen X-Ray 04/12/18 09:42 CONCLUSION: No evidence of ileus. Gallium Scan Nuclear Medicine 04/13/18 00:00 CONCLUSION: 1. There is abnormal uptake in the lungs corresponding to cavitary lesions probably lung abscesses and areas of consolidation seen on the patient's prior chest CT. Chest CT 05/15/18 06:00 CONCLUSION: 1. There is a small right-sided hydropneumothorax present only in the right cardiophrenic angle. No evidence of a left-sided pleural effusion. 2. The bulk of the consolidation in the right lower lung is parenchymal consolidation and not effusion. 3. Increasing patchy infiltrates are now noted throughout the right lung compared to the prior study. Stable patchy infiltrates in the left lung base compared to the prior study. 4. There is some increased cavitation of the parenchymal masslike density in the right apex. Chest X-Ray 05/18/18 06:00 CONCLUSION: Stable exam. Physical Exam: GENERAL: NAD On NC O2 SKIN: Warm and dry. + diffuse macular papular rash, torso, bnack , stomach, extemeties rash remains stable, though seem less red HEAD: Atraumatic. Normocephalic. EYES: Pupils equal and round. No scleral icterus. No injection or drainage. ENT: No nasal bleeding or discharge. Mucous membranes pink and moist. NECK: Trachea midline. No JVD. CARDIOVASCULAR: Regular rate and rhythm. RESPIRATORY: No accessory muscle use. R lung with decreased BS and extensive R sided CT w serosang dc GASTROINTESTINAL: Abdomen soft, non-tender, nondistended. MUSCULOSKELETAL: Extremities without clubbing, no cyanosis mild edema. 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
--- NOTE | 2018-05-19 15:03 | P.PNCC ---
Subjective Subjective Remarks/Hospital Course: Patient is 72-year-old male with past medical history of COPD, tobacco abuse and hypertension who came to the emergency room for shortness of breath via EMS. On EMS arrival saturation was in the 90s, but patient had significant shortness of breath and dyspnea. Patient received Solu-Medrol 125 mg IV and breathing treatments by EMS and was brought to the emergency department. In the emergency department patient received further breathing treatments and chest x-ray showed patchy infiltrate on bilateral lung fitzgerald. Initially maintaining oxygen saturation with nasal cannula. Initial blood pressure was 85 /65, improved with normal saline boluses. WBC count was 17.1. Patient was deemed septic from pneumonia and patient was ordered to receive vancomycin and Zosyn. While receiving vancomycin patient acutely decompensated became extremely short of breath and developed erythematous maculopapular rash involving face torso armpits and groin region. Emergently intubated and placed on mechanical ventilation by the ED physician. Received IV 50 mg Benadryl. Critical care medicine was requested to admit the patient. I evaluated the patient immediately in the emergency department. Patient is intubated on Versed and fentanyl infusion however he is very asynchronous with the vent triggering ventilator alarms. Severe bilateral expiratory wheezing heard on auscultation. He has extensive skin rash predominantly face forehead torso armpit and groins. Appears like patient had anaphylactic reaction to vancomycin complicated by COPD exacerbation and pneumonia. I have ordered additional Solu-Medrol 100 mg x1 scheduled Benadryl and famotidine, antibiotics with cefepime and Levaquin. Increase Versed infusion, add propofol and use neuromuscular paralysis as needed. Will request pharmacy to add vancomycin to allergy. ED physician Dr. Slater had noticed that patient had some swelling on the left side of his face on arrival, however the skin rash after vancomycin was started was new. Patient remains hypotensive has received 2 L of normal saline in the emergency department and no significant urine output. I have ordered additional 2 L normal saline bolus and maintenance fluid at 84 mL/h. Use Levophed as needed to keep map above 65 Subjective 04/06: Off norepinephrine drip. Currently resting in bed in no acute distress on midazolam and fentanyl drips. Start tube feeding today. 04/07: Remains sedated, intubated on mechanical ventilation. Blood cultures growing MRSA 04/08: remains sedated and intubated. repeat cultures still growing MRSA 2/4 cultures. likely need to repeat BCx either today or tomorrow. agree with narrowing spectrum abx. performed DEEDEE at ID recommendation (need to r/o endocarditis), but no evidence of vegetations. remains hypoxic. off vasopressors today. 04/09: adequate auto-diuresis overnight. off vasopressors. on sedation vacation. hypoxia improving. 04/10 Patient remains intubated and sedated with Fentanyl infusion. Became tachycardic and tachypneic overnight requiring increase sedation. Afebrile. 04/11 Patient is intubated and sedated. Afebrile. 04/12 Patient remains intubated and sedated with Diprivan and Fentanyl infusion, Afebrile. 04/13: Sedated, easily arousable, orally intubated on mechanical ventilation. 04/14 Patient was extubated yesterday. Afebrile. 04/15 Patient is lying in bed in NAD. On 3L oxygen. Awake and alert. 04/16 Patient is on partial rebreather. Afebrile. Awake and alert. 04/17: Left-sided chest tube placed for pneumothorax yesterday. On nasal cannula currently. Awake and alert. Appears comfortable. No air leak noted in Pleur-evac 04/18: Remains on nasal cannula. No air leak noted from left-sided chest tube. 04/19: On 5 L nasal cannula. Chest tube in place, no air leak noted. Resting in bed comfortably, no acute distress. Continues to have productive cough. 04/20: Remains on nasal cannula. Chest tube in place, no air leak noted. Resting in bed comfortably. 04/24: RECONSULT NOTE: called emergently by Hospitalist team. patient with new acute respiratory distress. Chest x-ray demonstrates new large right-sided pneumothorax. I went to evaluate the patient is seen in significant distress. I emergently placed right-sided pigtail chest tube. Significant denney of air with no air leak on chest tube. Respiratory distress improved after chest tube placement. Repeat interval chest x-ray demonstrates good placement of chest tube with resolution of pneumothorax. 04/26/18: RECONSULT NOTE: [facility] reconsulted for rexpansion of right pneumothorax. Patient developed increased SOB today without improvement with nebulizer. STAT CXR Moderate to large right pneumothorax has redeveloped and with a probable tension component. He appears to be in moderate distress tachypneic. Patient was moved to the ICU where I evaluated the patient emergently. The right pigtail chest tube is still in place, minimal air leak. I flushed the chest tube but was difficult to withdraw air. I then pulled back the chest tube by approximately 3 cm. Able to withdraw air more easily and on connection to the Vacutainer again there was significant air leak in all chambers. Patient subjectively felt improvement in shortness of breath after chest tube placement. Stat repeat chest x-ray shows near complete reexpansion of the right knee 04/30/18: [facility] RECONSULT NOTE: Critical care, reconsult for worsening respiratory failure. I evaluate the patient urgently. He is very tachypneic diaphoretic. Chest x-ray today showed possible right upper lobe pneumothorax and increasing right effusion. I did an emergent bedside ultrasound which shows probably loculated complicated right pleural effusion. Patient likely needs more further imaging and procedures and in very labored breathing. Proceeded with endotracheal intubation in place patient on mechanical ventilation. I explained plan of care prior to intubation. He understands that he may need emergency chest tube placement and also may need surgical intervention 05/01/18: Patient remains intubated sedated. Hypotensive on 75 mcg/min of Beau- Synephrine. While sedated. CT chest showed severe right lower lung consolidation large pneumothorax/hydropneumothorax on the right side. Plan for large bore chest tube and central line today. Also cardiothoracic surgery was consulted, and I discussed with Dr. Schaeffer. I will plan for a large bore chest tube to the right side followed by a central line placement. 05/02/18: Patient remains intubated heavily sedated for vent synchrony. Right chest tube with large air leak in all chambers. There is possibility of bronchopleural fistula. Chest x-ray shows improved air entry right lung. Discussed with cardiothoracic surgery Dr. Ontiveros today. Will repeat CT scan to see if lung is reexpanding. May need decortication procedure 05/03/18: Patient remains intubated sedated persistent large air leak. CT reviewed with cardiothoracic surgery Dr. Ontiveros. Will discuss with Dr. Schaeffer in a.m. Probably will benefit from decortication due to the hydropneumothorax and persistent pleural effusions which probably are empyema. Otherwise patient remains critically ill clinically same. [facility] cultures growing staph aureus still 05/04/18: Patient remains sedated critically ill. Chest x-ray shows mostly expanded right lung but with persistent loculated apical pneumothorax and right lower effusion. Plan for surgical intervention by Dr. Schaeffer 05/05/2018 possible decortication. Continue broad-spectrum antibiotics 05/05: Remains sedated, orally intubated on mechanical ventilation. Awaiting OR today for decortication and drainage of loculated effusion and possible repair of air leak site. 05/06: Remains sedated, orally intubated on mechanical ventilation. Status post right VATS with decortication on 05/05. [address] on the right with positive air leak. Subcutaneous emphysema decreasing. 05/07: Remains sedated, orally intubated on mechanical ventilation. Status post right VATS with decortication on 05/05. [address] on the right with positive air leak. Starting tube feeds and CPAP trials 05/08: Remains sedated, orally intubated on mechanical ventilation. Air leak persists from right-sided chest tube 05/09: Sedated, arousable, orally intubated on mechanical ventilation. 1+ air leak from right-sided chest tube noted. On CPAP trial. 05/10: Extubated yesterday. Slightly tachypneic. On nonrebreather facemask this morning. Air leak absent from right chest tube. 05/11: Patient on facemask O2. No air leak noted in right-sided chest tubes this morning. Chest x-ray reveals complete whiteout over right lung field raising concern for mucous plugging. Plan for intubation followed by bronchoscopy and BAL and then attempt to extubate patient. 05/12: Patient underwent intubation followed by bronchoscopy and BAL for right mucous plugging on 05/11 with significant mucus plugging noted which was suctioned out with BAL. Patient was subsequently extubated. Chest x-ray following bronchoscopy showed reexpansion of right lung with no pneumothorax and no air leak from chest tube. This morning patient is resting comfortably on 5 L nasal cannula and denies any shortness of breath. No air leak noted from chest tube. 05/13: Remains on nasal cannula maintaining oxygen saturation. Appears deconditioned. Chest x-ray shows improving aeration. Will get physical therapy to mobilize patient out of bed daily. Anterior chest tube to be removed by CT surgery today 05/14: Afebrile. Currently on nonrebreather mask. Aggressive pulmonary toilet initiated. Currently n.p.o. 05/15: Afebrile. Remains on nonrebreather mask but takes off intermittently. Plan for CT thorax exam. Replace potassium and phosphate this a.m. Appears comfortable lying in bed in no acute distress. 05/16: Resting comfortably in bed in no acute distress. Requesting additional physical therapy. Currently 8 L nasal cannula. Increased appetite this morning. 05/17: Rash this a.m. likely drug rash from ceftaroline. Infectious disease notified. Discontinued. Will reassess. Currently on famotidine, diphenhydramine and methylprednisolone succinate. Remains tachypneic which is stable for him. X-ray stable. 05/18: Patient offers no complaints today, tolerating nasal cannula O2. Reports no chest pain, dyspnea, or itching. 05/19: Patient states that he slept well last night, reports that he is eating well. He was out of bed to chair with PT today. He is tolerating 5-6 L O2 via NC without distress. Objective Vital Signs / I&O: Vital Signs 05/18/18 15:21 05/18/18 16:00 05/18/18 16:20 Temperature Pulse Rate 99 H 100 H 111 H Respiratory Rate 18 28 H 35 H Blood Pressure 111/71 116/72 Pulse Oximetry 92 L 89 L 05/18/18 16:54 05/18/18 17:00 05/18/18 18:00 Temperature Pulse Rate 100 H 97 H Respiratory Rate 27 H 25 H Blood Pressure 115/72 116/75 Pulse Oximetry 92 L 93 L 93 L 05/18/18 19:00 05/18/18 19:39 05/18/18 20:00 Temperature 98.7 F Pulse Rate 104 H 101 H 106 H Respiratory Rate 31 H 16 28 H Blood Pressure 118/71 114/75 Pulse Oximetry 86 L 93 L 93 L 05/18/18 21:00 05/18/18 22:00 05/18/18 23:00 Temperature Pulse Rate 109 H 111 H 111 H Respiratory Rate 27 H 31 H Blood Pressure 129/74 109/70 112/65 Pulse Oximetry 93 L 94 L 93 L 05/18/18 23:20 05/19/18 00:00 05/19/18 01:00 Temperature 98.1 F Pulse Rate 112 H 116 H 114 H Respiratory Rate 18 26 H 24 Blood Pressure 104/60 109/60 Pulse Oximetry 93 L 94 L 05/19/18 02:00 05/19/18 02:48 05/19/18 03:00 Temperature Pulse Rate 106 H 87 92 H Respiratory Rate 27 H 16 13 Blood Pressure 103/76 111/70 Pulse Oximetry 96 85 L 05/19/18 04:00 05/19/18 05:00 05/19/18 06:00 Temperature 98.7 F Pulse Rate 90 89 91 H Respiratory Rate 21 20 21 Blood Pressure 103/64 116/68 112/71 Pulse Oximetry 94 L 93 L 95 05/19/18 07:00 05/19/18 07:42 05/19/18 08:00 Temperature Pulse Rate 90 90 100 H Respiratory Rate 24 16 27 H Blood Pressure 115/78 118/87 Pulse Oximetry 97 92 L 05/19/18 09:00 05/19/18 09:01 05/19/18 09:20 Temperature 97.8 F Pulse Rate 112 H 113 H Respiratory Rate 43 H 32 H Blood Pressure 117/81 Pulse Oximetry 92 L 93 L 95 05/19/18 10:00 05/19/18 11:00 05/19/18 11:15 Temperature Pulse Rate 121 H 113 H 112 H Respiratory Rate 42 H 30 H 18 Blood Pressure 105/73 94/65 L Pulse Oximetry 95 05/19/18 15:00 Temperature Pulse Rate 95 H Respiratory Rate 18 Blood Pressure Pulse Oximetry Intake & Output 05/18/18 05/19/18 05/19/18 18:59 06:59 18:59 Intake Total 50 / 50 600 / 600 Output Total 700 / 700 650 / 650 Balance -650 / -650 -50 / -50 Weight 69.8 kg Intake: IV 50 / 50 100 / 100 Cleocin 900 mg/NS Premix 900 mg 50 / 50 100 / 100 In 50 ml @ 100 mls/hr IV.SIG Q8H [facility] Rx#:[id number] Oral 500 / 500 Output: Urine 650 / 650 Urine Amount (Catheter) 700 / 700 Condom 700 / 700 Other: Date of Last Bowel Movement 05/18/18 05/17/18 05/18/18 # Bowel Movements 0 Result Diagrams: 05/19/18 06:10 05/19/18 06:10 Objective Remarks: GENERAL: Elderly male sitting up in bed, no acute distress SKIN: Rash noted yesterday is almost completely resolved HEAD: NCAT EYES: Pupils equal and round. No scleral icterus. ENT: No nasal bleeding or discharge. Mucous membranes moist. NECK: Trachea midline CARDIOVASCULAR: Regular rate and rhythm RESPIRATORY: Air entry decreased on the right compared to left side, scattered rhonchi bilaterally. GASTROINTESTINAL: Abdomen soft, non-tender, non-distended. MUSCULOSKELETAL: Extremities without clubbing, cyanosis, or edema. No obvious deformities. NEUROLOGICAL: Awake, alert, following commands. Moves all extremities. Assessment and Plan - Assessment and Plan Plan: Neuro/Psych -Acetaminophen 650 p.o. every 6 hours as needed fever -Hydrocodone/acetaminophen 5/325 1 tablet every 4 hours as needed pain 1 through 5 -D/C morphine as patient has not used in several days RESP: Acute hypoxemic respiratory failure Persistent right-sided pneumothorax Right-sided complicated pleural effusion, probable empyema History of COPD Tobaccoism Left lower lobe 1.5 cm pulmonary nodule. Outpatient PET scan -Extubated on 05/09. Chest x-ray from 05/11 showed white out on the right side suggesting atelectasis, suspect mucous plugging. -s/p re-intubation followed by bronchoscopy and BAL with removal of significant mucous plugs from right mainstem bronchus and subsequent extubation on 05/11 -Albuterol/ipratropium aerosols every 4 hours with albuterol aerosols every 2 as needed dyspnea -Continue solumedrol 40 mg q6h; wean per pulmonology recs -Aggressive chest PT, Acapella, incentive spirometry -Status post right VATS with decortication 05/05/2018 -Continue antibiotics per ID -Anterior chest tube was removed 05/13. Last right-sided chest removed by CT surgery 05/14. -CT chest on 05/15 showed small right-sided hydropneumothorax at the right cardiophrenic angle, right lower lung consolidation, increased right lung infiltrates, and cavitary right apical mass CV: Essential hypertension Coronary artery disease Grade 1 diastolic dysfunction -Currently metoprolol tartrate 50 mg twice daily (on 150 BID at home) -Hold home lisinopril, BP currently well-controlled -2D echocardiogram 04/06/2018 revealed grade 1 diastolic dysfunction GI -Cardiac diet -Famotidine for GI prophylaxis as patient is on steroids -Docusate sodium 100 mg 1 tablet twice daily for bowel regimen Renal/: -Monitor creatinine daily. Follow trends -Monitor urine output -Accurate I's and O's. ID: Status post right VATS 05/05/2018 MRSA pneumonia with probable lung abscess (Zyvox resistant) Severe necrotizing pneumonia Probable septic emboli to the left lung MRSA bacteremia MRSA pneumonia -Antibiotics per ID. Currently on clindamycin for linezolid resistant staph aureus Ceftaroline held due to rash. 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 He has MRSA which is resistant to linezolid and he developed rash to Teflaro, may need another attempt at vanco administration if he clinically worsens -Further cultures per ID -[id number] cultures negative -Status post right VATS with decortication on 05/05 -Blood cultures MRSA. -Sputum 04/28 MRSA -Tissue culture 05/05 MRSA HEME: Leukocytosis Normocytic anemia Thrombocytosis -Monitor CBC, coags -No indication for transfusion of blood products at this time ENDO/FEN: Hypophosphatemia -Electrolyte replacement per protocol -Sliding scale insulin if needed PROPH: -Bilateral lower extremity SCDs -PPI -Lovenox LINES: -Utilize peripheral IVs, right subclavian central line placed 05/01/18. Discontinued Level 2 follow-up To help prompt me to consider important information that might be impacting today's encounter and assessment, information from prior notes written by myself or my colleagues may have been "brought forward" into today's note. My signature on this note, however, is an attestation that I personally performed the exam, history, and/or decision-making noted today, and, unless otherwise indicated, the interactions with patient, family, and staff as well as the review of records all occurred today. I also attest that the listed assessment and stated plan reflect my best clinical judgment today based on the combination of historical information, prior notes, and today's exam/ interactions. Code Status: Full
--- NOTE | 2018-05-19 19:49 | P.PNPL ---
Subjective Interval history: 72 YOWM with MRSA Pn, cavitary lesion, COPD, Lt ptx mild sob Tolerates PO Still very weak Alert, awake, follows commands Weaned to NC Physical Exam Vital signs: Vital Signs 05/18/18 20:00 05/18/18 21:00 05/18/18 22:00 Temperature 98.7 F Pulse Rate 106 H 109 H 111 H Respiratory Rate 28 H 27 H Blood Pressure 114/75 129/74 109/70 Pulse Oximetry 93 L 93 L 94 L 05/18/18 23:00 05/18/18 23:20 05/19/18 00:00 Temperature 98.1 F Pulse Rate 111 H 112 H 116 H Respiratory Rate 31 H 18 26 H Blood Pressure 112/65 104/60 Pulse Oximetry 93 L 93 L 05/19/18 01:00 05/19/18 02:00 05/19/18 02:48 Temperature Pulse Rate 114 H 106 H 87 Respiratory Rate 24 27 H 16 Blood Pressure 109/60 103/76 Pulse Oximetry 94 L 96 05/19/18 03:00 05/19/18 04:00 05/19/18 05:00 Temperature 98.7 F Pulse Rate 92 H 90 89 Respiratory Rate 13 21 20 Blood Pressure 111/70 103/64 116/68 Pulse Oximetry 85 L 94 L 93 L 05/19/18 06:00 05/19/18 07:00 05/19/18 07:42 Temperature Pulse Rate 91 H 90 90 Respiratory Rate 21 24 16 Blood Pressure 112/71 115/78 Pulse Oximetry 95 97 05/19/18 08:00 05/19/18 09:00 05/19/18 09:01 Temperature 97.8 F Pulse Rate 100 H 112 H 113 H Respiratory Rate 27 H 43 H 32 H Blood Pressure 118/87 117/81 Pulse Oximetry 92 L 92 L 93 L 05/19/18 09:20 05/19/18 10:00 05/19/18 11:00 Temperature Pulse Rate 121 H 113 H Respiratory Rate 42 H 30 H Blood Pressure 105/73 94/65 L Pulse Oximetry 95 05/19/18 11:15 05/19/18 12:00 05/19/18 13:00 Temperature Pulse Rate 112 H 104 H 99 H Respiratory Rate 18 30 H 29 H Blood Pressure 97/70 L 103/67 Pulse Oximetry 95 96 05/19/18 14:00 05/19/18 15:00 05/19/18 16:00 Temperature Pulse Rate 92 H 97 H 96 H Respiratory Rate 29 H 29 H 26 H Blood Pressure 106/66 122/81 106/71 Pulse Oximetry 96 93 L 05/19/18 17:00 05/19/18 18:00 Temperature Pulse Rate 90 99 H Respiratory Rate 25 H Blood Pressure 126/77 Pulse Oximetry 96 Intake & Output 05/19/18 05/19/18 05/20/18 06:59 18:59 06:59 Intake Total 600 / 600 650 / 650 Output Total 650 / 650 150 / 150 Balance -50 / -50 500 / 500 Weight 69.8 kg Intake: IV 100 / 100 50 / 50 Cleocin 900 mg/NS Premix 900 mg 100 / 100 50 / 50 In 50 ml @ 100 mls/hr IV.SIG Q8H [facility] Rx#:[id number] Oral 500 / 500 600 / 600 Output: Urine 650 / 650 Urine Amount (Catheter) 150 / 150 Condom 150 / 150 Other: Date of Last Bowel Movement 05/17/18 05/18/18 # Bowel Movements 0 GENERAL: Elderly Wm, NAD SKIN: Warm and dry. HEAD: Normocephalic. EYES: No scleral icterus. No injection or drainage. NECK: Supple, trachea midline. No JVD or lymphadenopathy. CARDIOVASCULAR: Regular rate and rhythm without murmurs, gallops, or rubs. RESPIRATORY: Breath sounds equal bilaterally. No accessory muscle use. GASTROINTESTINAL: Abdomen soft, non-tender, nondistended. MUSCULOSKELETAL: No cyanosis, or edema. BACK: Nontender without obvious deformity. No CVA tenderness. - Urinary Catheter Management Indwelling Urethral Catheter Cath placed during this visit: yes, but has since been removed by the nurse Reason for continuing: Acute urinary retention Insertion date: 04/05/18 Insertion time: 23:00 Removal date: 04/12/18 Removal time: 08:30 Condom Cath placed during this visit: no Reason for continuing: Acute urinary retention Straight Cath placed during this visit: yes, but has since been removed by the nurse Reason for continuing: Not indwelling catheter Insertion date: 05/06/18 Insertion time: 18:00 Removal date: 05/06/18 Removal time: 18:10 Indwelling Temp Sensing Catheter Cath placed during this visit: yes, but has since been removed by the nurse Reason for continuing: Hourly intake/output Insertion date: 05/05/18 Insertion time: 12:15 Removal date: 05/05/18 Removal time: 15:00 Assessment and Plan - Plan IMPRESSION: 1. MRSA pneumonia. 2. Cavitary pneumonia. 4. Chronic obstructive pulmonary disease. 5. Hypotension. 6. Left pneumothorax, status post chest tube.removal 7. Nicotine use. 8. Right Ptx 9. VDRF PLAN: Cont Abx per ID Aerosol nebs Supplement 02 to keep sat >90% encourage PO GUERLINE RN at BS
[2018-05-20] MEDS: Oral Hygiene Kit OROPHARYNG SCH ×4 (00:13→16:44)
[2018-05-20] MEDS: MethylPREDNISolone Sod Succinate Inj 40 MG/ML Vial IV.PUSH SCH ×4 (00:30→12:12)
[2018-05-20] MEDS: Clindamycin 900 mg/NS Premix 900 MG/50 ML PIGGYBACK IV.SIG SCH ×2 (01:22→11:43)
[2018-05-20 05:55] LABS: Baso % (Auto) 0.3 % (0.0-2.0); Eos # (Auto) 0.3 th/mm3 (0.0-0.4); Eos % (Auto) 2.5 % (0.0-4.0); Hematocrit 32.4 % (39.0-51.0); Hemoglobin 10.7 gm/dL (13.0-17.0); Lymph # (Auto) 0.8 th/mm3 (1.0-4.8); Lymph % (Auto) 6.3 % (9.0-44.0); Mean Corpuscular HGB Conc 33.1 % (32.0-36.0); Mean Corpuscular Hemoglobin 29.2 pg (27.0-34.0); Mean Corpuscular Volume 88.2 fL (80.0-100.0); Mean Platelet Volume 7.9 fL (7.0-11.0); Mono # (Auto) 0.6 th/mm3 (0.0-0.9); Mono % (Auto) 4.9 % (0.0-8.0); Neut # (Auto) 10.9 th/mm3 (1.8-7.7); Platelet Count 497 th/mm3 (150-450); Red Blood Count 3.67 mil/mm3 (4.50-5.90); Red Cell Distribution Width 15.2 % (11.6-17.2); White Blood Count 12.7 th/mm3 (4.0-11.0)
[2018-05-20 06:12] LABS: Anion Gap 6 meq/L (5-15); Blood Urea Nitrogen 22 mg/dL (7-18); Calcium 8.9 mg/dL (8.5-10.1); Carbon Dioxide 36.8 meq/L (21.0-32.0); Chloride 96 meq/L (98-107); Glomerular Filtration Rate Greater Than 89 mL/min (>89); Glucose,Random 136 mg/dL (74-106); Magnesium 1.9 mg/dL (1.5-2.5); Potassium 3.5 meq/L (3.5-5.1); Sodium 139 meq/L (136-145)
[2018-05-20] MEDS: Docusate Sodium 100 MG Capsule PO SCH (08:01)
[2018-05-20] MEDS: Famotidine PF Inj 20 MG/2 ML Vial IV.PUSH SCH (08:01)
[2018-05-20] MEDS: Sodium Chloride 0.9% 2 ML Flush BID IV.FLUSH SCH (08:01)
[2018-05-20] MEDS: guaiFENesin 600 MG ER Tablet PO SCH (08:01)
[2018-05-20] MEDS: Enoxaparin Inj 40 MG/0.4 ML Syringe SQ SCH (08:01)
[2018-05-20] MEDS: Chlorhexidine 0.12% Oral Kit 15 ML UDC OROPHARYNG SCH (08:02)
[2018-05-20] MEDS: Metoprolol Tartrate 100 MG Tablet PO SCH (08:02)
[2018-05-20] MEDS: Collagenase Oint 30 GM Tube TOPICAL SCH (08:02)
[2018-05-20] MEDS ORDERED: Sodium Chloride 0.65% Nasal Spray 45 ML Bottle EACH NARE PRN (08:50)
--- NOTE | 2018-05-20 08:58 | P.PNCC ---
Subjective Subjective Remarks/Hospital Course: Patient is 72-year-old male with past medical history of COPD, tobacco abuse and hypertension who came to the emergency room for shortness of breath via EMS. On EMS arrival saturation was in the 90s, but patient had significant shortness of breath and dyspnea. Patient received Solu-Medrol 125 mg IV and breathing treatments by EMS and was brought to the emergency department. In the emergency department patient received further breathing treatments and chest x-ray showed patchy infiltrate on bilateral lung fitzgerald. Initially maintaining oxygen saturation with nasal cannula. Initial blood pressure was 85 /65, improved with normal saline boluses. WBC count was 17.1. Patient was deemed septic from pneumonia and patient was ordered to receive vancomycin and Zosyn. While receiving vancomycin patient acutely decompensated became extremely short of breath and developed erythematous maculopapular rash involving face torso armpits and groin region. Emergently intubated and placed on mechanical ventilation by the ED physician. Received IV 50 mg Benadryl. Critical care medicine was requested to admit the patient. I evaluated the patient immediately in the emergency department. Patient is intubated on Versed and fentanyl infusion however he is very asynchronous with the vent triggering ventilator alarms. Severe bilateral expiratory wheezing heard on auscultation. He has extensive skin rash predominantly face forehead torso armpit and groins. Appears like patient had anaphylactic reaction to vancomycin complicated by COPD exacerbation and pneumonia. I have ordered additional Solu-Medrol 100 mg x1 scheduled Benadryl and famotidine, antibiotics with cefepime and Levaquin. Increase Versed infusion, add propofol and use neuromuscular paralysis as needed. Will request pharmacy to add vancomycin to allergy. ED physician Dr. Slater had noticed that patient had some swelling on the left side of his face on arrival, however the skin rash after vancomycin was started was new. Patient remains hypotensive has received 2 L of normal saline in the emergency department and no significant urine output. I have ordered additional 2 L normal saline bolus and maintenance fluid at 84 mL/h. Use Levophed as needed to keep map above 65 Subjective 04/06: Off norepinephrine drip. Currently resting in bed in no acute distress on midazolam and fentanyl drips. Start tube feeding today. 04/07: Remains sedated, intubated on mechanical ventilation. Blood cultures growing MRSA 04/08: remains sedated and intubated. repeat cultures still growing MRSA 2/4 cultures. likely need to repeat BCx either today or tomorrow. agree with narrowing spectrum abx. performed DEEDEE at ID recommendation (need to r/o endocarditis), but no evidence of vegetations. remains hypoxic. off vasopressors today. 04/09: adequate auto-diuresis overnight. off vasopressors. on sedation vacation. hypoxia improving. 04/10 Patient remains intubated and sedated with Fentanyl infusion. Became tachycardic and tachypneic overnight requiring increase sedation. Afebrile. 04/11 Patient is intubated and sedated. Afebrile. 04/12 Patient remains intubated and sedated with Diprivan and Fentanyl infusion, Afebrile. 04/13: Sedated, easily arousable, orally intubated on mechanical ventilation. 04/14 Patient was extubated yesterday. Afebrile. 04/15 Patient is lying in bed in NAD. On 3L oxygen. Awake and alert. 04/16 Patient is on partial rebreather. Afebrile. Awake and alert. 04/17: Left-sided chest tube placed for pneumothorax yesterday. On nasal cannula currently. Awake and alert. Appears comfortable. No air leak noted in Pleur-evac 04/18: Remains on nasal cannula. No air leak noted from left-sided chest tube. 04/19: On 5 L nasal cannula. Chest tube in place, no air leak noted. Resting in bed comfortably, no acute distress. Continues to have productive cough. 04/20: Remains on nasal cannula. Chest tube in place, no air leak noted. Resting in bed comfortably. 04/24: RECONSULT NOTE: called emergently by Hospitalist team. patient with new acute respiratory distress. Chest x-ray demonstrates new large right-sided pneumothorax. I went to evaluate the patient is seen in significant distress. I emergently placed right-sided pigtail chest tube. Significant denney of air with no air leak on chest tube. Respiratory distress improved after chest tube placement. Repeat interval chest x-ray demonstrates good placement of chest tube with resolution of pneumothorax. 04/26/18: RECONSULT NOTE: [facility] reconsulted for rexpansion of right pneumothorax. Patient developed increased SOB today without improvement with nebulizer. STAT CXR Moderate to large right pneumothorax has redeveloped and with a probable tension component. He appears to be in moderate distress tachypneic. Patient was moved to the ICU where I evaluated the patient emergently. The right pigtail chest tube is still in place, minimal air leak. I flushed the chest tube but was difficult to withdraw air. I then pulled back the chest tube by approximately 3 cm. Able to withdraw air more easily and on connection to the Vacutainer again there was significant air leak in all chambers. Patient subjectively felt improvement in shortness of breath after chest tube placement. Stat repeat chest x-ray shows near complete reexpansion of the right knee 04/30/18: [facility] RECONSULT NOTE: Critical care, reconsult for worsening respiratory failure. I evaluate the patient urgently. He is very tachypneic diaphoretic. Chest x-ray today showed possible right upper lobe pneumothorax and increasing right effusion. I did an emergent bedside ultrasound which shows probably loculated complicated right pleural effusion. Patient likely needs more further imaging and procedures and in very labored breathing. Proceeded with endotracheal intubation in place patient on mechanical ventilation. I explained plan of care prior to intubation. He understands that he may need emergency chest tube placement and also may need surgical intervention 05/01/18: Patient remains intubated sedated. Hypotensive on 75 mcg/min of Beau- Synephrine. While sedated. CT chest showed severe right lower lung consolidation large pneumothorax/hydropneumothorax on the right side. Plan for large bore chest tube and central line today. Also cardiothoracic surgery was consulted, and I discussed with Dr. Schaeffer. I will plan for a large bore chest tube to the right side followed by a central line placement. 05/02/18: Patient remains intubated heavily sedated for vent synchrony. Right chest tube with large air leak in all chambers. There is possibility of bronchopleural fistula. Chest x-ray shows improved air entry right lung. Discussed with cardiothoracic surgery Dr. Ontiveros today. Will repeat CT scan to see if lung is reexpanding. May need decortication procedure 05/03/18: Patient remains intubated sedated persistent large air leak. CT reviewed with cardiothoracic surgery Dr. Ontiveros. Will discuss with Dr. Schaeffer in a.m. Probably will benefit from decortication due to the hydropneumothorax and persistent pleural effusions which probably are empyema. Otherwise patient remains critically ill clinically same. [facility] cultures growing staph aureus still 05/04/18: Patient remains sedated critically ill. Chest x-ray shows mostly expanded right lung but with persistent loculated apical pneumothorax and right lower effusion. Plan for surgical intervention by Dr. Schaeffer 05/05/2018 possible decortication. Continue broad-spectrum antibiotics 05/05: Remains sedated, orally intubated on mechanical ventilation. Awaiting OR today for decortication and drainage of loculated effusion and possible repair of air leak site. 05/06: Remains sedated, orally intubated on mechanical ventilation. Status post right VATS with decortication on 05/05. [address] on the right with positive air leak. Subcutaneous emphysema decreasing. 05/07: Remains sedated, orally intubated on mechanical ventilation. Status post right VATS with decortication on 05/05. [address] on the right with positive air leak. Starting tube feeds and CPAP trials 05/08: Remains sedated, orally intubated on mechanical ventilation. Air leak persists from right-sided chest tube 05/09: Sedated, arousable, orally intubated on mechanical ventilation. 1+ air leak from right-sided chest tube noted. On CPAP trial. 05/10: Extubated yesterday. Slightly tachypneic. On nonrebreather facemask this morning. Air leak absent from right chest tube. 05/11: Patient on facemask O2. No air leak noted in right-sided chest tubes this morning. Chest x-ray reveals complete whiteout over right lung field raising concern for mucous plugging. Plan for intubation followed by bronchoscopy and BAL and then attempt to extubate patient. 05/12: Patient underwent intubation followed by bronchoscopy and BAL for right mucous plugging on 05/11 with significant mucus plugging noted which was suctioned out with BAL. Patient was subsequently extubated. Chest x-ray following bronchoscopy showed reexpansion of right lung with no pneumothorax and no air leak from chest tube. This morning patient is resting comfortably on 5 L nasal cannula and denies any shortness of breath. No air leak noted from chest tube. 05/13: Remains on nasal cannula maintaining oxygen saturation. Appears deconditioned. Chest x-ray shows improving aeration. Will get physical therapy to mobilize patient out of bed daily. Anterior chest tube to be removed by CT surgery today 05/14: Afebrile. Currently on nonrebreather mask. Aggressive pulmonary toilet initiated. Currently n.p.o. 05/15: Afebrile. Remains on nonrebreather mask but takes off intermittently. Plan for CT thorax exam. Replace potassium and phosphate this a.m. Appears comfortable lying in bed in no acute distress. 05/16: Resting comfortably in bed in no acute distress. Requesting additional physical therapy. Currently 8 L nasal cannula. Increased appetite this morning. 05/17: Rash this a.m. likely drug rash from ceftaroline. Infectious disease notified. Discontinued. Will reassess. Currently on famotidine, diphenhydramine and methylprednisolone succinate. Remains tachypneic which is stable for him. X-ray stable. 05/18: Patient offers no complaints today, tolerating nasal cannula O2. Reports no chest pain, dyspnea, or itching. 05/19: Patient states that he slept well last night, reports that he is eating well. He was out of bed to chair with PT today. He is tolerating 5-6 L O2 via NC without distress. 05/20: Patient tolerated 4-5L O2 via NC overnight. Patient requests saline nasal spray for nasal congestion but otherwise offers no complaints. No agitation overnight, has not required restraints. He was instructed not to attempt to get out of bed without assistance. Objective Vital Signs / I&O: Vital Signs 05/19/18 09:00 05/19/18 09:01 05/19/18 09:20 Temperature 97.8 F Pulse Rate 112 H 113 H Respiratory Rate 43 H 32 H Blood Pressure 117/81 Pulse Oximetry 92 L 93 L 95 05/19/18 10:00 05/19/18 11:00 05/19/18 11:15 Temperature Pulse Rate 121 H 113 H 112 H Respiratory Rate 42 H 30 H 18 Blood Pressure 105/73 94/65 L Pulse Oximetry 95 05/19/18 12:00 05/19/18 13:00 05/19/18 14:00 Temperature Pulse Rate 104 H 99 H 92 H Respiratory Rate 30 H 29 H 29 H Blood Pressure 97/70 L 103/67 106/66 Pulse Oximetry 96 96 05/19/18 15:00 05/19/18 16:00 05/19/18 17:00 Temperature Pulse Rate 97 H 96 H 90 Respiratory Rate 29 H 26 H 25 H Blood Pressure 122/81 106/71 126/77 Pulse Oximetry 93 L 96 05/19/18 18:00 05/19/18 19:00 05/19/18 19:01 Temperature Pulse Rate 101 H 102 H 100 H Respiratory Rate 28 H 29 H 31 H Blood Pressure 113/71 112/80 Pulse Oximetry 05/19/18 19:54 05/19/18 20:00 05/19/18 21:00 Temperature Pulse Rate 99 H 96 H 105 H Respiratory Rate 16 26 H 28 H Blood Pressure 109/70 102/66 Pulse Oximetry 92 L 95 88 L 05/19/18 22:00 05/19/18 23:00 05/19/18 23:24 Temperature Pulse Rate 102 H 89 93 H Respiratory Rate 31 H 21 16 Blood Pressure 100/63 112/66 Pulse Oximetry 80 L 98 05/20/18 00:00 05/20/18 01:00 05/20/18 02:00 Temperature Pulse Rate 86 86 83 Respiratory Rate 23 37 H 24 Blood Pressure 106/64 107/68 115/79 Pulse Oximetry 94 L 97 05/20/18 03:00 05/20/18 03:22 05/20/18 04:00 Temperature Pulse Rate 88 90 92 H Respiratory Rate 24 16 27 H Blood Pressure 127/83 119/73 Pulse Oximetry 99 05/20/18 05:00 05/20/18 06:00 Temperature Pulse Rate 94 H 94 H Respiratory Rate 17 28 H Blood Pressure 124/78 115/76 Pulse Oximetry 91 L Intake & Output 05/19/18 05/20/18 05/20/18 18:59 06:59 18:59 Intake Total 650 / 650 700 / 700 Output Total 150 / 150 600 / 600 Balance 500 / 500 100 / 100 Weight 71.7 kg Intake: IV 50 / 50 100 / 100 Cleocin 900 mg/NS Premix 900 mg 50 / 50 100 / 100 In 50 ml @ 100 mls/hr IV.SIG Q8H [facility] Rx#:[id number] Oral 600 / 600 600 / 600 Output: Urine 600 / 600 Urine Amount (Catheter) 150 / 150 Condom 150 / 150 Other: Date of Last Bowel Movement 05/18/18 05/18/18 Result Diagrams: 05/20/18 04:21 05/20/18 04:21 Objective Remarks: GENERAL: Elderly male sitting up in bed eating breakfast, no acute distress SKIN: Drug rash is almost completely resolved HEAD: NCAT EYES: Pupils equal and round. No scleral icterus. ENT: Mucous membranes moist. NECK: Trachea midline CARDIOVASCULAR: Regular rate and rhythm RESPIRATORY: Air entry minimally decreased on the right compared to left side, no wheezing or rhonchi. GASTROINTESTINAL: Abdomen soft, non-tender, non-distended. MUSCULOSKELETAL: No peripheral edema or obvious deformities. NEUROLOGICAL: Awake, alert, following commands. Moves all extremities. Answers questions appropriately. Assessment and Plan - Assessment and Plan Plan: Neuro/Psych -Acetaminophen 650 p.o. every 6 hours as needed fever -Hydrocodone/acetaminophen 5/325 1 tablet every 4 hours as needed pain 1 through 5 RESP: Acute hypoxemic respiratory failure Persistent right-sided pneumothorax Right-sided complicated pleural effusion, probable empyema History of COPD Tobaccoism Left lower lobe 1.5 cm pulmonary nodule. Outpatient PET scan -Extubated on 05/09. Chest x-ray from 05/11 showed white out on the right side suggesting atelectasis, suspect mucous plugging. -s/p re-intubation followed by bronchoscopy and BAL with removal of significant mucous plugs from right mainstem bronchus and subsequent extubation on 05/11 -Albuterol/ipratropium aerosols every 4 hours with albuterol aerosols every 2 as needed dyspnea -Continue solumedrol 40 mg q6h; wean per pulmonology recs -Aggressive chest PT, Acapella, incentive spirometry -Status post right VATS with decortication 05/05/2018 -Continue antibiotics per ID -Anterior chest tube was removed 05/13. Last right-sided chest removed by CT surgery 05/14. -CT chest on 05/15 showed small right-sided hydropneumothorax at the right cardiophrenic angle, right lower lung consolidation, increased right lung infiltrates, and cavitary right apical mass -Will add nasal saline spray PRN nasal congestion -Patient is tolerating nasal cannula oxygen without difficulty CV: Essential hypertension Coronary artery disease Grade 1 diastolic dysfunction -Currently metoprolol tartrate 50 mg twice daily (on 150 BID at home) -Hold home lisinopril, BP currently well-controlled -2D echocardiogram 04/06/2018 revealed grade 1 diastolic dysfunction GI -Cardiac diet -Famotidine for GI prophylaxis as patient is on steroids -Docusate sodium 100 mg 1 tablet twice daily for bowel regimen Renal/: -Monitor creatinine daily. Follow trends -Monitor urine output ID: Status post right VATS 05/05/2018 MRSA pneumonia with probable lung abscess (Zyvox resistant) Severe necrotizing pneumonia Probable septic emboli to the left lung MRSA bacteremia MRSA pneumonia -Antibiotics per ID. Currently on clindamycin for linezolid resistant staph aureus Ceftaroline held due to rash. Continue famotidine/diphenhydramine and methylprednisolone succinate. Rash is resolving. 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 He has MRSA which is resistant to linezolid and he developed rash to Teflaro, may need another attempt at vanco administration if he clinically worsens. Currently doing well. -Further cultures per ID -[id number] cultures negative -Status post right VATS with decortication on 05/05 -Blood cultures MRSA. -Sputum 04/28 MRSA -Tissue culture 05/05 MRSA HEME: Leukocytosis Normocytic anemia Thrombocytosis -Monitor CBC, coags -No indication for transfusion of blood products at this time ENDO/FEN: Hypophosphatemia -Electrolyte replacement per protocol -Sliding scale insulin if needed PROPH: -Bilateral lower extremity SCDs -PPI -Lovenox LINES: -Utilize peripheral IVs, right subclavian central line placed 05/01/18. Discontinued OVERALL: This patient has recovered well from a respiratory standpoint. He can be transferred back to the hospitalist service. Level 2 follow-up To help prompt me to consider important information that might be impacting today's encounter and assessment, information from prior notes written by myself or my colleagues may have been "brought forward" into today's note. My signature on this note, however, is an attestation that I personally performed the exam, history, and/or decision-making noted today, and, unless otherwise indicated, the interactions with patient, family, and staff as well as the review of records all occurred today. I also attest that the listed assessment and stated plan reflect my best clinical judgment today based on the combination of historical information, prior notes, and today's exam/ interactions. Code Status: Full
[2018-05-20 14:59] VITALS: TEMP 97.2; O2SAT 97
--- NOTE | 2018-05-20 15:18 | P.DIET ---
Nutritional Evaluation Type of nutrition evaluation: follow-up Nutrition consult regarding: Diet Evaluation Screening comments: 04/06/18 TF review Subjective Subjective Comments: Pt seen consuming an apple fritter during RD visit and mentioned he enjoys eating sweet foods. RN Danielle mentioned pt does not have a good appetite and does not completely finish his Ensure supplements. Objective - Diagnosis respiratory failure, pneumonia, allergic reaction - Objective % IBW: 108 (IBW = 178lb) Body Weight Used for Calculations: Actual (88kg) Energy Needs - Lower Range (kCal/kg): 25 Energy Needs - Upper Range (kCal/kg): 30 Lower Limit kCal/kg (kCals): 2,200 Upper Limit kCal/kg (kCals): 2,640 Lower Limit Protein Factor (Grams per Kg): 1.1 Upper Limit Protein Factor (Grams per Kg): 1.3 Lower Protein Needs (Protein): 97 Upper Protein Needs (Protein): 114 Dietitian Reviewed in Medical Record: Current diet, Curent medications, Intake & Output, Labs, Medical history Diet Order: cardiac, 2gNA Oral Diet Intake Amount: Fair 50-75% Speech Therapy Recommendations: Yes (regular, nectar thickened consistent) Objective Comments: PMH: COPD, hx of MRSA, HTN Labs: random glucose 114 Skin: Pressure Ulcer (L & R Buttocks) LBM 05/12/18 05/09/18 extubated 05/11/18 reintubated w/ bronchoscopy 05/12/18 extubated Assessment Assessment: Pt now awake and alert. ST recs reviewed, pt able to tolerate regular w/ nectar thickened liquids. Pt on a cardiac diet and consuming around 25% per RN and has minimal intake for his supplements. Continue to monitor PO and supplement intake. Encourage PO intake and provide feeding assistance as needed. Labs reveiwed, dietitian following. Brought forward: If pt needs TF'ing: Jevity 1.5 @ 65mL/hr to provide 2340kcal, 100g of protein, and 1186mL of free water to best meet pts nutritional needs. Recommendations: 1. ST recs reviewed, pt able to tolerate regular w/ nectar thickened liquids 2. Continue cardiac 2gNa diet w/ Ensure Enlive BID 3. Continue to monitor PO and supplement intake 4. Encourage PO intake and provide feeding assistance as needed 5. Dietitian following Dietitian to Monitor: Lab values, Glucose level, Supplement acceptance, Intake & Output, Diet tolerance, Weight change, PO Intake, Swallow recommendations, Medical course Comments: Monitor NPO status
--- NOTE | 2018-05-20 15:36 | P.DS ---
Date of admission: 04/05/18 23:15 Primary care physician: UNKNOWN Attending physician on discharge: Ashley Granados Anticipated date of discharge: 05/20/18 Brief History from admission: Patient is 72-year-old male with past medical history of COPD, tobacco abuse and hypertension who came to the emergency room for shortness of breath via EMS. On EMS arrival saturation was in the 90s, but patient had significant shortness of breath and dyspnea. Patient received Solu-Medrol 125 mg IV and breathing treatments by EMS and was brought to the emergency department. In the emergency department patient received further breathing treatments and chest x-ray showed patchy infiltrate on bilateral lung fitzgerald. Initially maintaining oxygen saturation with nasal cannula. Initial blood pressure was 85 /65, improved with normal saline boluses. WBC count was 17.1. Patient was deemed septic from pneumonia and patient was ordered to receive vancomycin and Zosyn. While receiving vancomycin patient acutely decompensated became extremely short of breath and developed erythematous maculopapular rash involving face torso armpits and groin region. Emergently intubated and placed on mechanical ventilation by the ED physician. Received IV 50 mg Benadryl. Critical care medicine was requested to admit the patient. I evaluated the patient immediately in the emergency department. Patient is intubated on Versed and fentanyl infusion however he is very asynchronous with the vent triggering ventilator alarms. Severe bilateral expiratory wheezing heard on auscultation. He has extensive skin rash predominantly face forehead torso armpit and groins. Appears like patient had anaphylactic reaction to vancomycin complicated by COPD exacerbation and pneumonia. I have ordered additional Solu-Medrol 100 mg x1 scheduled Benadryl and famotidine, antibiotics with cefepime and Levaquin. Increase Versed infusion, add propofol and use neuromuscular paralysis as needed. Will request pharmacy to add vancomycin to allergy. ED physician Dr. Slater had noticed that patient had some swelling on the left side of his face on arrival, however the skin rash after vancomycin was started was new. Patient remains hypotensive has received 2 L of normal saline in the emergency department and no significant urine output. I have ordered additional 2 L normal saline bolus and maintenance fluid at 84 mL/h. Use Levophed as needed to keep map above 65 Patient update on day of discharge: Patient accepted to [facility] this afternoon. He tolerated lunch without difficulty and offers no complaints. Cleared for regular consistency diet by speech therapist. DS: Diagnosis - Discharge Diagnosis (1) COPD with acute exacerbation Status: Acute (2) Bilateral pneumonia Status: Acute (3) Allergic reaction caused by a drug Status: Acute (4) Acute respiratory failure Status: Resolved (5) Severe sepsis Status: Resolved (6) Leukocytosis Status: Resolved (7) Hypotension Status: Resolved (8) Acute kidney injury Status: Resolved (9) History of COPD Status: Chronic (10) Tobacco abuse Status: Chronic (11) History of hypertension Status: Chronic (12) Hyponatremia Status: Resolved (13) Hyperglycemia Status: Resolved (14) Empyema Status: Resolved (15) Empyema lung Status: Resolved DS: Summary Hospital Course: Patient is 72-year-old male with past medical history of COPD, tobacco abuse and hypertension who came to the emergency room for shortness of breath via EMS. On EMS arrival saturation was in the 90s, but patient had significant shortness of breath and dyspnea. Patient received Solu-Medrol 125 mg IV and breathing treatments by EMS and was brought to the emergency department. In the emergency department patient received further breathing treatments and chest x-ray showed patchy infiltrate on bilateral lung fitzgerald. Initially maintaining oxygen saturation with nasal cannula. Initial blood pressure was 85 /65, improved with normal saline boluses. WBC count was 17.1. Patient was deemed septic from pneumonia and patient was ordered to receive vancomycin and Zosyn. While receiving vancomycin patient acutely decompensated became extremely short of breath and developed erythematous maculopapular rash involving face torso armpits and groin region. Emergently intubated and placed on mechanical ventilation by the ED physician. Received IV 50 mg Benadryl. Critical care medicine was requested to admit the patient. I evaluated the patient immediately in the emergency department. Patient is intubated on Versed and fentanyl infusion however he is very asynchronous with the vent triggering ventilator alarms. Severe bilateral expiratory wheezing heard on auscultation. He has extensive skin rash predominantly face forehead torso armpit and groins. Appears like patient had anaphylactic reaction to vancomycin complicated by COPD exacerbation and pneumonia. I have ordered additional Solu-Medrol 100 mg x1 scheduled Benadryl and famotidine, antibiotics with cefepime and Levaquin. Increase Versed infusion, add propofol and use neuromuscular paralysis as needed. Will request pharmacy to add vancomycin to allergy. ED physician Dr. Slater had noticed that patient had some swelling on the left side of his face on arrival, however the skin rash after vancomycin was started was new. Patient remains hypotensive has received 2 L of normal saline in the emergency department and no significant urine output. I have ordered additional 2 L normal saline bolus and maintenance fluid at 84 mL/h. Use Levophed as needed to keep map above 65 Subjective 04/06: Off norepinephrine drip. Currently resting in bed in no acute distress on midazolam and fentanyl drips. Start tube feeding today. 04/07: Remains sedated, intubated on mechanical ventilation. Blood cultures growing MRSA 04/08: remains sedated and intubated. repeat cultures still growing MRSA 05/04 cultures. likely need to repeat BCx either today or tomorrow. agree with narrowing spectrum abx. performed DEEDEE at ID recommendation (need to r/o endocarditis), but no evidence of vegetations. remains hypoxic. off vasopressors today. 04/09: adequate auto-diuresis overnight. off vasopressors. on sedation vacation. hypoxia improving. 04/10 Patient remains intubated and sedated with Fentanyl infusion. Became tachycardic and tachypneic overnight requiring increase sedation. Afebrile. 04/11 Patient is intubated and sedated. Afebrile. 04/12 Patient remains intubated and sedated with Diprivan and Fentanyl infusion, Afebrile. 04/13: Sedated, easily arousable, orally intubated on mechanical ventilation. 04/14 Patient was extubated yesterday. Afebrile. 04/15 Patient is lying in bed in NAD. On 3L oxygen. Awake and alert. 04/16 Patient is on partial rebreather. Afebrile. Awake and alert. 04/17: Left-sided chest tube placed for pneumothorax yesterday. On nasal cannula currently. Awake and alert. Appears comfortable. No air leak noted in Pleur-evac 04/18: Remains on nasal cannula. No air leak noted from left-sided chest tube. 04/19: On 5 L nasal cannula. Chest tube in place, no air leak noted. Resting in bed comfortably, no acute distress. Continues to have productive cough. 04/20: Remains on nasal cannula. Chest tube in place, no air leak noted. Resting in bed comfortably. 04/24: RECONSULT NOTE: called emergently by Hospitalist team. patient with new acute respiratory distress. Chest x-ray demonstrates new large right-sided pneumothorax. I went to evaluate the patient is seen in significant distress. I emergently placed right-sided pigtail chest tube. Significant denney of air with no air leak on chest tube. Respiratory distress improved after chest tube placement. Repeat interval chest x-ray demonstrates good placement of chest tube with resolution of pneumothorax. 04/26/18: RECONSULT NOTE: [facility] reconsulted for rexpansion of right pneumothorax. Patient developed increased SOB today without improvement with nebulizer. STAT CXR Moderate to large right pneumothorax has redeveloped and with a probable tension component. He appears to be in moderate distress tachypneic. Patient was moved to the ICU where I evaluated the patient emergently. The right pigtail chest tube is still in place, minimal air leak. I flushed the chest tube but was difficult to withdraw air. I then pulled back the chest tube by approximately 3 cm. Able to withdraw air more easily and on connection to the Vacutainer again there was significant air leak in all chambers. Patient subjectively felt improvement in shortness of breath after chest tube placement. Stat repeat chest x-ray shows near complete reexpansion of the right knee 04/30/18: [facility] RECONSULT NOTE: Critical care, reconsult for worsening respiratory failure. I evaluate the patient urgently. He is very tachypneic diaphoretic. Chest x-ray today showed possible right upper lobe pneumothorax and increasing right effusion. I did an emergent bedside ultrasound which shows probably loculated complicated right pleural effusion. Patient likely needs more further imaging and procedures and in very labored breathing. Proceeded with endotracheal intubation in place patient on mechanical ventilation. I explained plan of care prior to intubation. He understands that he may need emergency chest tube placement and also may need surgical intervention 05/01/18: Patient remains intubated sedated. Hypotensive on 75 mcg/min of Beau- Synephrine. While sedated. CT chest showed severe right lower lung consolidation large pneumothorax/hydropneumothorax on the right side. Plan for large bore chest tube and central line today. Also cardiothoracic surgery was consulted, and I discussed with Dr. Schaeffer. I will plan for a large bore chest tube to the right side followed by a central line placement. 05/02/18: Patient remains intubated heavily sedated for vent synchrony. Right chest tube with large air leak in all chambers. There is possibility of bronchopleural fistula. Chest x-ray shows improved air entry right lung. Discussed with cardiothoracic surgery Dr. Ontiveros today. Will repeat CT scan to see if lung is reexpanding. May need decortication procedure 05/03/18: Patient remains intubated sedated persistent large air leak. CT reviewed with cardiothoracic surgery Dr. Ontiveros. Will discuss with Dr. Schaeffer in a.m. Probably will benefit from decortication due to the hydropneumothorax and persistent pleural effusions which probably are empyema. Otherwise patient remains critically ill clinically same. [facility] cultures growing staph aureus still 05/04/18: Patient remains sedated critically ill. Chest x-ray shows mostly expanded right lung but with persistent loculated apical pneumothorax and right lower effusion. Plan for surgical intervention by Dr. Schaeffer 05/05/2018 possible decortication. Continue broad-spectrum antibiotics 05/05: Remains sedated, orally intubated on mechanical ventilation. Awaiting OR today for decortication and drainage of loculated effusion and possible repair of air leak site. 05/06: Remains sedated, orally intubated on mechanical ventilation. Status post right VATS with decortication on 05/05. [address] on the right with positive air leak. Subcutaneous emphysema decreasing. 05/07: Remains sedated, orally intubated on mechanical ventilation. Status post right VATS with decortication on 05/05. [address] on the right with positive air leak. Starting tube feeds and CPAP trials 05/08: Remains sedated, orally intubated on mechanical ventilation. Air leak persists from right-sided chest tube 05/09: Sedated, arousable, orally intubated on mechanical ventilation. 1+ air leak from right-sided chest tube noted. On CPAP trial. 05/10: Extubated yesterday. Slightly tachypneic. On nonrebreather facemask this morning. Air leak absent from right chest tube. 05/11: Patient on facemask O2. No air leak noted in right-sided chest tubes this morning. Chest x-ray reveals complete whiteout over right lung field raising concern for mucous plugging. Plan for intubation followed by bronchoscopy and BAL and then attempt to extubate patient. 05/12: Patient underwent intubation followed by bronchoscopy and BAL for right mucous plugging on 05/11 with significant mucus plugging noted which was suctioned out with BAL. Patient was subsequently extubated. Chest x-ray following bronchoscopy showed reexpansion of right lung with no pneumothorax and no air leak from chest tube. This morning patient is resting comfortably on 5 L nasal cannula and denies any shortness of breath. No air leak noted from chest tube. 05/13: Remains on nasal cannula maintaining oxygen saturation. Appears deconditioned. Chest x-ray shows improving aeration. Will get physical therapy to mobilize patient out of bed daily. Anterior chest tube to be removed by CT surgery today 05/14: Afebrile. Currently on nonrebreather mask. Aggressive pulmonary toilet initiated. Currently n.p.o. 05/15: Afebrile. Remains on nonrebreather mask but takes off intermittently. Plan for CT thorax exam. Replace potassium and phosphate this a.m. Appears comfortable lying in bed in no acute distress. 05/16: Resting comfortably in bed in no acute distress. Requesting additional physical therapy. Currently 8 L nasal cannula. Increased appetite this morning. 05/17: Rash this a.m. likely drug rash from ceftaroline. Infectious disease notified. Discontinued. Will reassess. Currently on famotidine, diphenhydramine and methylprednisolone succinate. Remains tachypneic which is stable for him. X-ray stable. 05/18: Patient offers no complaints today, tolerating nasal cannula O2. Reports no chest pain, dyspnea, or itching. 05/19: Patient states that he slept well last night, reports that he is eating well. He was out of bed to chair with PT today. He is tolerating 5-6 L O2 via NC without distress. 05/20: Patient tolerated 4-5L O2 via NC overnight. Patient requests saline nasal spray for nasal congestion but otherwise offers no complaints. No agitation overnight, has not required restraints. He was instructed not to attempt to get out of bed without assistance. - Time Spent with Patient Total time spent providing and/or coordinating discharge services: Less than 30 minutes - Quality: VTE Deep Vein Thrombosis/Pulmonary Embolism Present on Admission: No Exam Vital signs: Vital Signs 05/19/18 16:00 05/19/18 17:00 05/19/18 18:00 Temperature Pulse Rate 96 H 90 101 H Respiratory Rate 26 H 25 H 28 H Blood Pressure 106/71 126/77 113/71 Pulse Oximetry 96 05/19/18 19:00 05/19/18 19:01 05/19/18 19:54 Temperature Pulse Rate 102 H 100 H 99 H Respiratory Rate 29 H 31 H 16 Blood Pressure 112/80 Pulse Oximetry 92 L 05/19/18 20:00 05/19/18 21:00 05/19/18 22:00 Temperature Pulse Rate 96 H 105 H 102 H Respiratory Rate 26 H 28 H 31 H Blood Pressure 109/70 102/66 100/63 Pulse Oximetry 95 88 L 80 L 05/19/18 23:00 05/19/18 23:24 05/20/18 00:00 Temperature Pulse Rate 89 93 H 86 Respiratory Rate 21 16 23 Blood Pressure 112/66 106/64 Pulse Oximetry 98 94 L 05/20/18 01:00 05/20/18 02:00 05/20/18 03:00 Temperature Pulse Rate 86 83 88 Respiratory Rate 37 H 24 24 Blood Pressure 107/68 115/79 127/83 Pulse Oximetry 97 99 05/20/18 03:22 05/20/18 04:00 05/20/18 05:00 Temperature Pulse Rate 90 92 H 94 H Respiratory Rate 16 27 H 17 Blood Pressure 119/73 124/78 Pulse Oximetry 05/20/18 06:00 05/20/18 07:00 05/20/18 08:00 Temperature 98.2 F Pulse Rate 94 H 100 H 84 Respiratory Rate 28 H 31 H 32 H Blood Pressure 115/76 118/82 108/77 Pulse Oximetry 91 L 75 L 95 05/20/18 09:00 05/20/18 09:14 05/20/18 10:00 Temperature Pulse Rate 96 H 90 84 Respiratory Rate 31 H 18 29 H Blood Pressure 118/81 112/76 Pulse Oximetry 91 L 93 L 05/20/18 10:33 05/20/18 11:00 05/20/18 12:00 Temperature 97.2 F L Pulse Rate 82 84 83 Respiratory Rate 30 H 28 H 32 H Blood Pressure 130/76 Pulse Oximetry 91 L 05/20/18 13:00 05/20/18 13:17 05/20/18 13:54 Temperature Pulse Rate 93 H 89 91 H Respiratory Rate 33 H 18 31 H Blood Pressure 119/83 Pulse Oximetry 99 05/20/18 14:00 Temperature Pulse Rate 93 H Respiratory Rate 32 H Blood Pressure 126/87 Pulse Oximetry 97 Intake & Output 05/19/18 05/20/18 05/20/18 18:59 06:59 18:59 Intake Total 650 / 650 700 / 700 50 / 50 Output Total 150 / 150 600 / 600 Balance 500 / 500 100 / 100 50 / 50 Weight 71.7 kg Intake: IV 50 / 50 100 / 100 50 / 50 Cleocin 900 mg/NS Premix 900 mg 50 / 50 100 / 100 50 / 50 In 50 ml @ 100 mls/hr IV.SIG Q8H LENORA Rx#:[id number] Oral 600 / 600 600 / 600 Output: Urine 600 / 600 Urine Amount (Catheter) 150 / 150 Condom 150 / 150 Other: Date of Last Bowel Movement 05/18/18 05/18/18 05/18/18 Narrative: Please see my daily progress note from this morning. There have been no interval changes in exam. Results Procedures completed during hospitalization: 04/16: Left chest tube thoracostomy 04/30: Endotracheal intubation 05/01: Right chest tube thoracostomy 05/01: Right subclavian central line 05/01: Fiberoptic bronchoscopy 05/05: VATS decortication 05/11: Fiberoptic bronchoscopy 05/11: Endotracheal intubation Pending studies at discharge: None Labs on day of discharge: Labs from last 24 hours 05/20/18 05/20/18 04:21 04:21 WBC 12.7 H RBC 3.67 L Hgb 10.7 L Hct 32.4 L MCV 88.2 MCH 29.2 MCHC 33.1 RDW 15.2 Plt Count 497 H MPV 7.9 Neut % (Auto) 86.0 H Lymph % (Auto) 6.3 L [place] % (Auto) 4.9 Eos % (Auto) 2.5 Baso % (Auto) 0.3 Neut # (Auto) 10.9 H Lymph # (Auto) 0.8 L [place] # (Auto) 0.6 Eos # (Auto) 0.3 Baso # (Auto) 0.0 WBC Differential . Differential Comment Auto diff final Sodium 139 Potassium 3.5 Chloride 96 L Carbon Dioxide 36.8 H Anion Gap 6 BUN 22 H Creatinine 0.37 L Estimated GFR Greater than 89 Random Glucose 136 H Calcium 8.9 Magnesium 1.9 Preliminary micro results at discharge 05/05/18 12:10 Mycobacterial Culture - Preliminary Tissue - Other No growth in 2 weeks 05/05/18 12:10 Fungal Culture - Preliminary Tissue - Other No growth in 2 weeks 05/05/18 12:50 Fungal Culture - Preliminary Fluid - Pleural fluid No growth in 2 weeks 05/05/18 12:50 Mycobacterial Culture - Preliminary Fluid - Pleural fluid No growth in 2 weeks 05/05/18 12:10 Fungal Culture - Preliminary Tissue - Other No growth in 2 weeks 05/05/18 12:10 Mycobacterial Culture - Preliminary Tissue - Other No growth in 2 weeks 05/01/18 11:00 Mycobacterial Culture - Preliminary Bronchial Washings - Right No growth in 2 weeks 05/01/18 11:00 Fungal Culture - Preliminary Bronchial Washings - Right - Impressions ITS Impressions Face CT 04/06/18 00:00 CONCLUSION: 1. Small focal area of soft tissue swelling involving the lateral orbital margin on the left. No abscess. Abdomen/Pelvis CT 04/10/18 00:00 CONCLUSION: 1. Findings in the patient's chest discussed on the patient's chest CT. 2. Left renal stone without hydronephrosis. 3. Slight AAA. 4. Possible gallstones within the gallbladder. 5. There is slight fluid within the peritoneal cavity in the pelvis and within left perinephric space and stranding densities involving the Gerota's fascia on the left side. The exact etiology is not certain could be inflammatory, and there is no hydronephrosis. Head MRI 04/12/18 00:00 CONCLUSION: 1. Some chronic changes with mild cortical and central atrophy. Minimal periventricular and scattered deep white matter tract areas of small vessel ischemic demyelination. 2. Some fluid or secretions identified in the dependent portion of the nasopharynx. 3. Otherwise negative. No findings of intracranial mass lesion/abscess. Lumbar Spine MRI 04/12/18 00:00 CONCLUSION: 1. No evidence of epidural abscess. 2. Grade 1 anterolisthesis at L5-S1 with associated discogenic degenerative changes and bilateral pars defects. There is significant bilateral bony neural foraminal stenosis with bilateral neural impingement. 3. Asymmetric ligamentum flavum hypertrophy on the right side at the L4-5 level flattens the dorsal lateral aspect of the thecal sac. Neural foramen remain patent. 4. Suggestion of distended urinary bladder, incompletely imaged in the field-of -view. Thoracic Spine MRI 04/12/18 00:00 CONCLUSION: 1. Small bilateral pleural effusions. 2. Spinal canal is widely patent throughout without cord compromise. No findings of a paravertebral abscess. Abdomen X-Ray 04/12/18 09:42 CONCLUSION: No evidence of ileus. Gallium Scan Nuclear Medicine 04/13/18 00:00 CONCLUSION: 1. There is abnormal uptake in the lungs corresponding to cavitary lesions probably lung abscesses and areas of consolidation seen on the patient's prior chest CT. Chest CT 05/15/18 06:00 CONCLUSION: 1. There is a small right-sided hydropneumothorax present only in the right cardiophrenic angle. No evidence of a left-sided pleural effusion. 2. The bulk of the consolidation in the right lower lung is parenchymal consolidation and not effusion. 3. Increasing patchy infiltrates are now noted throughout the right lung compared to the prior study. Stable patchy infiltrates in the left lung base compared to the prior study. 4. There is some increased cavitation of the parenchymal masslike density in the right apex. Chest X-Ray 05/18/18 06:00 CONCLUSION: Stable exam. Discharge Plan - Discharge Disposition Patient Disposition: Discharge to SNF - Discharge Condition Condition: Good - Discharge Order Discharge Orders: Discharge Order (Routine); Ordered 05/20/18 Ordered By: Ashley Granados - Discharge Details Anticipated Discharge Date: 05/20/18 Discharge Comment: To [facility] - Physicians Team Primary Care Provider: UNKNOWN, Attending Provider: Sonam Bustos Other Providers: Lilia Suarez MD ; Chang Carey MD ; [facility] ,Agency ; Sonam Bustos MD ; Pilar Ontiveros MD ; [facility] ; Vega Glaser MD
[2018-05-20 16:14] VITALS: PULSE 79; RESP 18
[2018-05-20 16:26] VITALS: BP 107/73
== END 2018-05-20 17:00 | DRG 853 ==
LOC: NEPC 21:04 → NEDA 23:15 → HIMC 04-06 01:00 → HCIS 04-25 20:11 → HIMC 04-26 16:45
PROVIDERS: ADMIT Internal Medicine; ATTEND Internal Medicine
DX: J90 Pleural effusion, not elsewhere classified; Z79.899 Other long term (current) drug therapy; J96.01 Acute respiratory failure with hypoxia; I31.3 Pericardial effusion (noninflammatory); E87.0 Hyperosmolality and hypernatremia; R73.9 Hyperglycemia, unspecified; R21 Rash and other nonspecific skin eruption; D64.9 Anemia, unspecified; T17.890A Other foreign object in other parts of respiratory tract causing asphyxiation, initial encounter; A41.02 Sepsis due to Methicillin resistant Staphylococcus aureus; J94.8 Other specified pleural conditions; D69.6 Thrombocytopenia, unspecified; L27.0 Generalized skin eruption due to drugs and medicaments taken internally; N17.9 Acute kidney failure, unspecified; G93.41 Metabolic encephalopathy; E44.0 Moderate protein-calorie malnutrition; J93.82 Other air leak; R33.9 Retention of urine, unspecified; E87.6 Hypokalemia; J93.81 Chronic pneumothorax; I76 Septic arterial embolism; Z99.11 Dependence on respirator [ventilator] status; T36.1X5A Adverse effect of cephalosporins and other beta-lactam antibiotics, initial encounter; T81.82XA Emphysema (subcutaneous) resulting from a procedure, initial encounter; F17.210 Nicotine dependence, cigarettes, uncomplicated; J44.0 Chronic obstructive pulmonary disease with (acute) lower respiratory infection; E83.39 Other disorders of phosphorus metabolism; T88.6XXA Anaphylactic reaction due to adverse effect of correct drug or medicament properly administered, initial encounter; E86.0 Dehydration; J98.11 Atelectasis; J85.0 Gangrene and necrosis of lung; J44.1 Chronic obstructive pulmonary disease with (acute) exacerbation; R00.0 Tachycardia, unspecified; R65.21 Severe sepsis with septic shock; E87.1 Hypo-osmolality and hyponatremia; J15.212 Pneumonia due to Methicillin resistant Staphylococcus aureus; I10 Essential (primary) hypertension; I25.10 Atherosclerotic heart disease of native coronary artery without angina pectoris; R91.1 Solitary pulmonary nodule; T36.8X5A Adverse effect of other systemic antibiotics, initial encounter
CPT/HCPCS: 31500; 31624; 32020; 32551; 36556; 36600; 70487; 70553; 71010; 71045; 71250; 71260; 72157; 72158; 74000; 74018; 74177; 76937; 78806; 80048; 80053; 80074; 80170; 81001; 82550; 82552; 82805; 82945; 82948; 82962; 83605; 83615; 83735; 83986; 84100; 84132; 84155; 84157; 84484; 85025; 85027; 85610; 86140; 86403; 86850; 86900; 86901; 87015; 87040; 87070; 87077; 87086; 87102; 87116; 87147; 87149; 87176; 87186; 87205; 87206; 87275; 87276; 87389; 87641; 87804; 88112; 88305; 90774; 90775; 90784; 92526; 92610; 93005; 93306; 93312; 93320; 93325; 94003; 94150; 94640; 94650; 94651; 94657; 94664; 94665; 96374; 96375; 97110; 97116; 97162; 97167; 97530; 97535; 99291; A9556; A9585; C8952; C9124; C9282; G0195; J0131; J0330; J0690; J0692; J0712; J0878; J1100; J1200; J1580; J1650; J1940; J1956; J2020; J2250; J2270; J2370; J2405; J2543; J2704; J2920; J2930; J3010; J3370; J3475; J3480; J7030; J7050; J7060; P9045; Q3002; Q9967